=== PATIENT | female | born 1945 | race Caucasian/White ===

== ENCOUNTER 2020-12-28 15:04 | Emergency (ER) | payer MEDICARE, SELFPAY ==
[2020-03-07 11:09] VITALS: BMI 28.3
[2020-12-28 15:07] VITALS: BP 184/78; PULSE 85; RESP 16; TEMP 36.6; O2SAT 96; BMI 26.0
[2020-12-28] MEDS: Mixture 30 ML Bottle TOPICAL (15:56)
[2020-12-28] MEDS: Silver Nitrate (BKC) 1 EACH TOPICAL (15:57)
--- NOTE | 2020-12-28 16:21 | ED.VIS.GEN ---
History of Present Illness Chief Complaint: Nosebleed Informant: Patient Onset: Weeks - several Timing: Intermittent Quality: oozing blood Location: right naris Current Severity: gone Maximum Severity: Moderate Worsened by: nothing in particular -- bleeding occurs spontaneously Relieved by: holding pressure Associated Symptoms: none; no pain, weakness, lightheadedness, chest pain, or swallowing blood Narrative: Patient is on Eliquis for chronic atrial fibrillation as well as aspirin because of relatively recent cardiac stents. She continues to have nosebleeds, she had her nose packed at [place] a week or 2 ago, it was removed but she continues to have intermittent bleeding from the right side. She was calling to make an appointment with ENT today, but they deferred her to the emergency department since she was still bleeding to get another packing. - Past Medical History (1) Paroxysmal atrial fibrillation Status: Chronic (2) 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 tachycardia Status: Chronic (3) Atherosclerotic heart disease of [place] coronary artery without angina pectoris Status: Chronic (4) Essential hypertension Status: Chronic (5) GERD (gastroesophageal reflux disease) Status: Chronic (6) Malignant neoplasm of right breast Status: Chronic (7) Presence of stent in coronary artery Status: Chronic Comment: PCI/Stent to prox and mid LAD 05/10/09; PCI/Stent of RCA 05/23/09 (8) Pure hypercholesterolemia Status: Chronic (9) Type 2 diabetes mellitus Status: Chronic Past Medical History - Allergies and Home Meds Allergies/Adverse Reactions: Allergies amoxicillin [Amoxicillin] Allergy (Verified 12/28/20 15:09) Nausea/Vom/Diarrhea metformin Allergy (Verified 12/28/20 15:09) Nausea/Vom/Diarrhea shellfish derived Allergy (Verified 12/28/20 15:09) Nausea/Vom/Diarrhea alendronate sodium [From Fosamax] Adverse Reaction (Severe, Verified 12/28/20 15:09) myalgias Primary Care Physician: Shilo Pollard MD [STAFF PHYSICIAN] - (2-3 days - call for appt) Santo Taveras MD [Primary Care Provider] - Smoking Status: Never smoker Review of Systems General: Denies: Chills, Fever, Sweats Eyes: Denies: Visual changes - bilaterally, Diplopia ENT: Reports: Rhinorrhea - bleeding, see HPI. Denies: Sore throat Cardiovascular: Denies: Chest pain, Palpitations Respiratory: Denies: Dyspnea, Cough, Dyspnea on exertion Gastrointestinal: Denies: Abdominal pain, Nausea, Vomiting, Diarrhea, Melena, Hematochezia Genitourinary: Denies: Dysuria, Hematuria, Frequency Musculoskeletal: Denies: Neck pain, Extremity Pain Skin: Denies: Rash, Wounds Neurological: Denies: Headache, Weakness, Numbness Physical Exam Vital Signs/Narrative: Vital Signs Temp Pulse Resp BP Pulse Ox 12/28/20 15:07 98 F 85 16 184/78 H 96 Inital Vital Signs reviewed: Yes General: Well nourished, Well developed, No Acute Distress Head: Normocephalic, Atraumatic Eyes: Perrl, EOMI ENT: Moist mucous membranes, - - No active nasal bleeding. Small amount of clot anteriorly right naris, the left is clear. No septal hematoma or perforation. With disrupting the clot in the right septum, there is a pinpoint area of mild oozing of blood. Respiratory: No distress Skin: Normal color, No rash, No Trauma Neurological: Alert, Oriented x3, Cranial nerves II-XII grossly intact, Normal Strength, Normal Sensation, Normal Gait Psychological: Normal affect, Normal Mood Diagnostic/Tx/Re-eval - Medical Decision Making Patient does not have any systemic symptoms to suggest significant blood loss. She really wants to avoid nasal packing since she just had that, it was very uncomfortable, and she continued to bleed after it was removed anyway. Therefore I attempted to cauterize, although it was challenging because of the anticoagulation, eventually hemostasis was able to be obtained. She does understand the risk of rebleed and the fact that it is Thursday and she may need to return to the ER over the weekend if she does have rebleeding. Follow-up with ENT after the weekend. Procedures Procedure(s): Epistaxis care/chemical cautery -patient has pinpoint oozing of blood very anteriorly at the septum of the right naris. With point pressure on it the bleeding is easily controlled. She was initially intubated with [place] solution on a nasal pledget which she bled through and had a big clot. I had her blow her nose and expel all of these, then placing Brittany mix on a cotton swab and applying point pressure at the site of bleeding, alternating periodically with a very slight amount of silver nitrate cauterization. Eventually was able to obtain hemostasis. Patient was monitored for 5-10 minutes more, she had no further bleeding and was comfortable going home. ED Disposition - Plan for ED Patient: Disposition: Home or Assisted Living Diagnosis: Anterior epistaxis Instructions: ED Epistaxis (Adult) Referrals: Santo Taveras MD [Primary Care Provider] - Shilo Pollard MD [STAFF PHYSICIAN] - (2-3 days - call for appt)
[2020-12-28 17:20] VITALS: BP 170/82; PULSE 75
== END 2020-12-28 17:20 | disposition home or self-care (01) ==
PROVIDERS: Emergency Provider Emergency Medicine; PCP Family Medicine
DX: R04.0 Epistaxis (principal); I48.20 Chronic atrial fibrillation, unspecified; I25.10 Atherosclerotic heart disease of native coronary artery without angina pectoris; I10 Essential (primary) hypertension; K21.9 Gastro-esophageal reflux disease without esophagitis; E11.9 Type 2 diabetes mellitus without complications; Z95.5 Presence of coronary angioplasty implant and graft; Z79.02 Long term (current) use of antithrombotics/antiplatelets
CPT/HCPCS: 30901; 99282

== ENCOUNTER 2021-02-10 16:58 | Emergency (ER) | payer MEDICARE, SELFPAY ==
[2021-01-02 10:01] VITALS: BMI 25.2
[2021-02-10 16:59] VITALS: BP 149/90; PULSE 99; RESP 18; TEMP 36.8; O2SAT 97; BMI 26.2
--- NOTE | 2021-02-10 18:00 | ED.VIS.URI ---
History of Present Illness Chief Complaint: Cough Informant: Patient Onset: Today Context: Gradual Onset Timing: Intermittent Quality: [employer] Current Severity: Mild Maximum Severity: Mild Worsened by: - - nothing Relieved by: - - nothing Associated Symptoms: Nasal Congestion - clear rhinorrhea, Headache - yest, gone now, Vomiting - postussive once only, Nonproductive cough. Negative for: Sinus Pressure, Myalgias, Nausea, Diarrhea, Shortness of Breath, Chest Pain, Hemoptysis Narrative: Patient lives in an attached structure with daughter and son-in-law, frequently in close contact with them. Daughter was tested positive for Covid yesterday and has been symptomatic. Son has been symptomatic but has not been tested yet. She presents for evaluation suspicious of infection with Covid. She denies any significant fevers or chills, her temp did go up to 99 but she did not feel feverish, no dyspnea with exertion or at rest and has been feeling otherwise well except for the above symptoms. - Past Medical History (1) Atherosclerotic heart disease of [place] coronary artery without angina pectoris Status: Chronic (2) Essential hypertension Status: Chronic (3) GERD (gastroesophageal reflux disease) Status: Chronic (4) Paroxysmal atrial fibrillation Status: Chronic (5) Pure hypercholesterolemia Status: Chronic (6) Type 2 diabetes mellitus Status: Chronic Past Medical History - Allergies and Home Meds Allergies/Adverse Reactions: Allergies amoxicillin [Amoxicillin] Allergy (Verified 02/10/21 16:59) Nausea/Vom/Diarrhea metformin Allergy (Verified 02/10/21 16:59) Nausea/Vom/Diarrhea shellfish derived Allergy (Verified 02/10/21 16:59) Nausea/Vom/Diarrhea alendronate sodium [From Fosamax] Adverse Reaction (Severe, Verified 02/10/21 16:59) myalgias Primary Care Physician: Santo Taveras MD [Primary Care Provider] - Surgical History: - - Cardiac stent Lives: With Family Smoking Status: Never smoker Review of Systems General: Reports: Fever - Low-grade 99 only, Malaise. Denies: Chills, Subjective, Sweats Eyes: Denies: Visual changes - bilaterally, Diplopia ENT: Denies: Bilateral ear pain, Rhinorrhea, Sore throat Cardiovascular: Denies: Chest pain, Palpitations Respiratory: Reports: Cough. Denies: Dyspnea, Dyspnea on exertion Gastrointestinal: Reports: Vomiting - Once posttussive only. Denies: Abdominal pain, Nausea, Diarrhea, Melena, Hematochezia Genitourinary: Denies: Dysuria, Hematuria, Frequency Musculoskeletal: Denies: Myalgias, Back pain, Swelling, Extremity Pain Skin: Denies: Rash, Wounds Neurological: Reports: Headache. Denies: Weakness, Numbness Physical Exam Vital Signs/Narrative: Vital Signs Temp Pulse Resp BP Pulse Ox 02/10/21 16:59 98.3 F 99 18 149/90 H 97 Inital Vital Signs reviewed: Yes General: Well nourished, Well developed, - - Well-appearing no acute distress, conversive in full sentences Head: Normocephalic, Atraumatic Eyes: Perrl, EOMI Nose: Normal Inspection, No Rhinorrhea Mouth/Throat: Normal Inspection, No Posterior Erythema Neck: Supple, Nontender, No Lymphadenopathy, No Meningismus Cardiovascular: Regular rate, Regular rhythm, No murmurs. Negative for: Tachycardia Respiratory: No distress, CTA bilaterally, Chest nontender Abdomen: Soft, Nontender, Nondistended, Normal bowel sounds Back: Nontender, Normal Inspection Extremities: Nontender, No edema. Negative for: Calf Tenderness Skin: Normal color, No rash, No Trauma Neurological: Alert, Oriented x3, Cranial nerves II-XII grossly intact, Normal Strength, Normal Sensation, Normal Gait Psychological: Normal affect, Normal Mood Diagnostic/Tx/Re-eval - Medical Decision Making Rapid Covid returned positive, consistent with her history of having likely COVID-19. She does not have an oxygen requirement and is stable to be discharged. She does meet qualifications for monoclonal antibody infusion treatment, for which she was referred. She was given appropriate discharge instructions and reasons to return. ED Disposition - Plan for ED Patient: Disposition: Home or Assisted Living Diagnosis: Acute respiratory disease due to COVID-19 virus Instructions: Coronavirus Disease 2019 (COVID-19): Overview, ED - COVID Monoclonal AB Infusion ... Referrals: Santo Taveras MD [Primary Care Provider] - As Needed Additional Instructions: If you start getting short of breath return to the ER. You should get a call tomorrow concerning the referral to the monoclonal antibiotic treatment clinic.
[2021-02-10 18:54] VITALS: BP 136/79; PULSE 95; RESP 18; TEMP 37.1; O2SAT 97
== END 2021-02-10 18:55 | disposition home or self-care (01) ==
PROVIDERS: Emergency Provider Emergency Medicine; PCP Family Medicine
DX: U07.1 COVID-19 (principal); J06.9 Acute upper respiratory infection, unspecified; I25.10 Atherosclerotic heart disease of native coronary artery without angina pectoris; I10 Essential (primary) hypertension; K21.9 Gastro-esophageal reflux disease without esophagitis; E11.9 Type 2 diabetes mellitus without complications
CPT/HCPCS: 87426; 99282

== ENCOUNTER 2021-02-12 14:26 | Outpatient (CLI) | payer MEDICARE, SELFPAY ==
[2021-02-12] VITALS (7 sets, daily range): BP systolic 101–154; BP diastolic 46–79; PULSE 48–98; RESP 18; TEMP 37.1–37.8; O2SAT 93–98; BMI 26.0
[2021-02-12] MEDS: 0.9% Saline Lock 10 ML Syringe IV (15:00)
== END 2021-02-12 17:50 | disposition home or self-care (01) ==
LOC: ICUOUT 14:26 → ICU 14:27
PROVIDERS: PCP Family Medicine; Referring Provider Nurse Practitioner Acute Care; Visit Provider Nurse Practitioner Acute Care
DX: Z23 Encounter for immunization (principal); U07.1 COVID-19
CPT/HCPCS: J7050; M0243; Q0245; A4216; Q0240

== ENCOUNTER → 2021-09-12 06:59 | Outpatient (CLI) | payer MEDICARE, SELFPAY ==
--- NOTE | 2021-09-12 09:47 | STRESSREP ---
Stress Test Report Date: 09-12-2021 Procedure: Exercise tolerance test/imaging study Indications: CAD; PCI; paroxysmal atrial fibrillation Consent: Per the patient Procedure: The patient exercised on a [place]ade protocol for 2 minutes and 54 seconds not completing Stage I achieving a peak heart rate of 127 bpm (88% predicted maximal heart rate) with a peak blood pressure 150/84 mmHg and a peak MET capacity of 4 METs. The baseline ECG demonstrated sinus rhythm; low voltage QRS; septal my of indeterminate age cannot be excluded. The peak exercise ECG demonstrated somatic/motion artifact with no obvious ECG changes. There were occasional PVCs pretest, during exercise, and in recovery. The functional capacity was considered decreased. There was no complaint of chest discomfort during exercise or recovery. The examination was discontinued secondary to dyspnea. Impression: 1. Technically adequate (percent predicted maximal heart rate greater than 85%) exercise tolerance test 2. Peak exercise ECG with somatic/motion artifact with no obvious ECG changes 3. There were occasional PVCs pretest, during exercise, and in recovery 4. Nuclear images pending Myocardial perfusion imaging study: Technique: The patient was injected with 11.1 mCi of technetium 99m Cardiolite and subsequently rest SPECT Cardiolite nuclear imaging was obtained in the horizontal long, vertical long, and short axis views. The patient exercised on a Shade protocol for 2 minutes and 54 seconds not completing Stage I achieving a peak heart rate of 127 bpm (88% predicted maximal heart rate) with a peak blood pressure 150/84 mmHg and a peak MET capacity of 4 METs. The patient was injected with 32.3 mCi of technetium 99m Cardiolite and subsequently stress SPECT Cardiolite nuclear imaging was obtained in the horizontal long, vertical long, and short axis views. A gated Cardiolite study at peak stress was obtained. Interpretation: Rest and stress SPECT Cardiolite nuclear imaging status post realignment, normalization, and attenuation correction, demonstrates the appearance of body motion during image acquisition and the appearance of a small area of diminished tracer uptake in the distal anteroseptal segments at rest which appears to improve/normalize following stress. There are similar type findings on the resting and stress polar map images. There is end systolic thickening and brightening. The gated Cardiolite study demonstrates myocardial thickening and inward wall motion. The reported LVEF is 82%. Impression: 1. Rest and stress SPECT Cardiolite nuclear imaging demonstrate the appearance of body motion during image acquisition and the appearance of a small area of diminished tracer uptake in the distal anteroseptal segments at rest which appears to improve/normalize following stress appearing compatible with shifting soft tissue attenuation/artifact with no myocardial perfusion changes considered diagnostic for associated stress-induced myocardial ischemia. 2. The gated Cardiolite study reports an LVEF of 82%. This note was generated with [employer] software. It may contain incorrect words, spelling, and punctuation that were not noted in checking the note before signing.
== END ==
PROVIDERS: PCP Family Medicine; Referring Provider Nurse Practitioner Gerontology; Visit Provider Nurse Practitioner Gerontology
DX: I25.10 Atherosclerotic heart disease of native coronary artery without angina pectoris (principal); Z95.5 Presence of coronary angioplasty implant and graft
CPT/HCPCS: 78452; 93017; A9500; A4216

== ENCOUNTER 2023-12-11 07:45 | Inpatient (IN) | payer MEDICARE, SELFPAY ==
[2023-12-11 07:46] VITALS: BP 157/144; PULSE 90; RESP 16; TEMP 36.7; O2SAT 99
--- NOTE | 2023-12-11 08:21 | CT_ITS ---
STUDY: CT ABDOMEN AND PELVIS WITH CONTRAST REASON FOR EXAM: Female, 78 years old. Fall, RUQ pain, hematemesis RADIATION DOSAGE (If Supplied By Facility): CTDIvol = ( 11.51 ) mGy, DLP = ( 634.30 ) mGycm TECHNIQUE: IV 100mL Isovue-300 was administered. Transaxial images were obtained from the dome of the diaphragm to the symphysis pubis. Multiplanar coronal and sagittal images were reformatted. Individualized Dose Optimization Techniques Were Used For This CT. COMPARISON: No relevant prior comparison study available FINDINGS: The visualized lung bases are unremarkable. The visualized portions of the heart are within normal limits. Normal liver. Normal gallbladder and extrahepatic biliary system. There is a benign calcified granuloma of the spleen. Normal pancreas. Normal bilateral adrenal glands. Nonspecific fluid-filled slightly prominent small bowel loops. No evidence of small bowel obstruction. Fecal retention. Focal stranding in the right lower quadrant extending from the cecum (axial images 73-81 and coronal images 71-67). Thickened appendix is doubtful. The appendix otherwise is not visualized. Surgical anastomosis sutures in the region of the rectosigmoid colon. There is atherosclerotic calcification of the abdominal aorta, without a demonstrated aneurysm. No retroperitoneal adenopathy. 1.6 cm it is effecting simple cyst in the lateral aspect of right kidney for which no further follow-up exam is needed. No evidence of hydronephrosis. Normal urinary bladder. There is absence of the uterus consistent with a prior hysterectomy. Normal abdominal wall. No demonstrated acute osseous changes. CT/Abdomen/Pelvis W IV Cont ONLY IMPRESSION: 1. Nonspecific fluid-filled small bowel loops without evidence of small bowel obstruction. Enteritis is possible. 2. Focal stranding right lower quadrant extending from the cecum. Thickened appendix is doubtful. Follow-up exam is recommended if indicated. Electronically Signed: Bryan Belle MD at 10:05 EST ,
--- NOTE | 2023-12-11 08:23 | EDS_ITS ---
HPI HPI - GI History of Present Illness Chief Complaint: GI Bleed Informant: patient and family Narrative Narrative: Patient had an accidental fall 2 days ago. She was holding the leash and the dog pulled her down. She fell prone onto the floor inside her home. She has been having some pain in her right upper abdomen and ribs that started the day after. Yesterday she started vomiting, and overnight it turned red. Initially the emesis was dark, and the last 6 or 7 emesis was dark red blood. Her last bowel movement was yesterday and it was normal without diarrhea, melena, blood. She denies any chest pain or shortness of breath, she states her rib hurts in the right upper quadrant area, she does not have significant pain if she takes a deep breath. She denies any head injury although she has some bruising on her head that she states was from a fall 1 or 2 weeks ago, she denies any back pain, extremity injury. She has a history of an MA with stents in her heart as well as A-fib for which she is on Eliquis. Last dose was a little more than 24 hours ago has not taken her morning medications due to vomiting this morning. [facility] Medical History Atherosclerotic heart disease of resighini coronary artery without angina pectoris Essential hypertension GERD (gastroesophageal reflux disease) Liver mass Malignant neoplasm of right breast Old myocardial infarction Paroxysmal atrial fibrillation 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 tachycardia Presence of stent in coronary artery (~05/23/09) Pure hypercholesterolemia Type 2 diabetes mellitus Home Medications apixaban 5 mg tablet (Eliquis) 5 mg PO BID a.fib 09/06/19 [History Last Taken 02/12/21] cyanocobalamin (vitamin B-12) 1,000 mcg tablet 1,000 mcg PO DAILY 09/06/19 [History Last Taken 02/12/21] pravastatin 80 mg tablet 80 mg PO QHS 09/06/19 [History Last Taken 02/11/21] pyridoxine (vitamin B6) 100 mg tablet 100 mg PO DAILY 09/06/19 [History Last Taken 02/12/21] nitroglycerin 0.4 mg sublingual tablet 0.4 mg sublingual Q5-15M PRN chest pain #90 tabs 09/08/19 [Rx Last Taken Unknown] insulin glargine U-300 conc 300 unit/mL (1.5 mL) subcutaneous pen 20 unit subcut QHS 08/14/21 [History Last Taken Unknown] dulaglutide 4.5 mg/0.5 mL subcutaneous pen injector (Trulicity) 4.5 mg subcut MO 08/06/23 [History Last Taken 12/07/23] verapamil 300 mg capsule 24hr pellet CT,ext.release 300 mg PO QHS 08/06/23 [History Last Taken Unknown] brimonidine 0.2 % eye drops 1 drp ophthalmic (eye) BID 12/11/23 [History Last Taken Unknown] calcium carbonate 600 mg-vitamin D3 5 mcg (200 unit) tablet (Calcium 600 + D(3)) 1 tab PO DAILY 12/11/23 [History Last Taken Unknown] lisinopril 40 mg tablet 20 mg PO DAILY HIG BLOOD PRESSURE 12/11/23 [History Last Taken Unknown] Allergy/AdvReac Type Severity Reaction Status Date / Time alendronate sodium AdvReac Severe myalgias Verified 12/11/23 07:49 [From Fosamax] amoxicillin [Amoxicillin] AdvReac Nausea/Vom/ Verified 12/11/23 07:49 Diarrhea metformin AdvReac Nausea/Vom/ Verified 12/11/23 07:49 Diarrhea shellfish derived AdvReac Nausea/Vom/ Verified 12/11/23 07:49 Diarrhea Family History Mother Hypertension Diabetes CVA (cerebral vascular accident) CAD (coronary artery disease) Father History of DVT (deep vein thrombosis) Surgical History History of eyelid surgery (05/28/23) History of total abdominal hysterectomy Presence of coronary angioplasty implant and graft (~05/23/09) S/P lumpectomy, right breast Social History Smoking Status: Never smoker alcohol intake: never substance use type: does not use caffeine: Yes Type: coffee Number of servings: 2 ROS ROS ED Constitutional Constitutional ED: Reports fatigue and weakness; Denies chills or fever(s) Eyes Eyes: Denies change in vision or diplopia ENT ENT ED: Denies rhinorrhea or sore throat Cardiovascular Cardiovascular: Denies chest pain or palpitations Respiratory/Chest Respiratory/Chest: Denies cough or dyspnea Gastrointestinal Gastrointestinal: Reports abdominal pain, hematemesis, nausea and vomiting; Denies diarrhea, melena or rectal bleeding Genitourinary Genitourinary ED: Denies dysuria or hematuria Musculoskeletal Musculoskeletal: Denies back pain or neck pain Integumentary Denies abscess or rash Neurologic Neurologic: Denies headache(s), paresthesias or weakness Psychiatric Psychiatric: Denies anxiety or suicidal thoughts EXAM Physical Exam Const Vital Signs: 12/11/23 07:46 Temperature 98.1 F Temperature Source Temporal Pulse Rate 90 Respiratory Rate 16 Blood Pressure 157/144 H Blood Pressure Mean 148 Pulse Ox 99 Oxygen Delivery Method Room Air Positive well nourished and well developed General Appearance ED: well developed and NAD HEENT Reports moist mucous membranes HEENT Narrative: Old-appearing yellowing ecchymosis left forehead no tenderness or hematoma. I see no signs of acute HEENT trauma. normocephalic and atraumatic Eyes PERRL and EOMs intact bilaterally Neck full ROM and supple Chest Wall Chest Narrative: Tender right lower rib cage and chest wall diffusely all the way up to around the fourth or fifth rib just to the lateral aspect of the right breast. No crepitance. No flail. No other areas of rib tenderness. No deformity. No palpable step-offs. Resp normal respiratory effort and clear to auscultation bilaterally Cardio no murmurs Rhythm: abnormal rhythm irregularly irregular GI non-distended GI Narrative: Tender in the left lower quadrant in the right upper quadrant epigastrium. No rebound tenderness. Auscultation: normoactive bowel sounds Palpation: soft Back/Spine no CVA tenderness General Back: other FROM Extremity normal to inspection and full ROM General Extremety ED: Negative for edema, pulses abnormal or tenderness General Extremity: Negative for edema or pulses abnormal Neuro oriented x3, CN's II-XII intact bilaterally and no sensory deficits noted Sensorium / Orientation: awake and alert Motor Exam: strength 5/5 throughout Psych mental status grossly normal and thought process normal Skin no rashes or lesions noted and no wounds MDM MDM MDM Narrative Medical decision making narrative: Out of concern for upper GI bleeding in a delayed fashion after what sounds like a minor blunt abdominal injury, I obtained a CT as well as blood counts, chemistries, type and screen. I reviewed all of those results including the result of the CT and the images which I agree with, it does not show any obvious sequela of injury or trauma. It shows some nonspecific ascending colonic stranding in addition to findings consistent with enteritis but no free air or signs of a small bowel injury. Unknown if this patient is to go to a trauma center, but there are no obvious signs of intestinal injury on the CT so I do not think she needs a surgical consult emergently, so I initially discussed with GI Dr. Ferrer. He states he thinks it is most appropriate to keep the patient here on a Protonix drip which we already started, and he will consult. Discussed with hospitalist. At this time she is clinically and hemodynamically stable with no vomiting after Zofran and IV fluids, she does not need emergent blood transfusion with a hemoglobin around 10. Lab Data Attestation: I reviewed the patient's lab results. Labs: Laboratory Results - last 24 hr 12/11/23 12/11/23 08:10 10:40 WBC 13.6 H RBC 3.63 L Hgb 10.8 L Hct 33.1 L MCV 91.2 MCH 29.8 MCHC 32.6 RDW Std Deviation 46.0 H RDW Coeff of Emperatriz 13.6 Plt Count 244 MPV 10.3 Immature Gran % (Auto) 0.400 Neut % (Auto) 86.0 H Lymph % (Auto) 7.0 L Chester % (Auto) 6.2 Eos % (Auto) 0.1 Baso % (Auto) 0.3 Absolute Neuts (auto) 11.7 H Absolute Lymphs (auto) 0.95 Nucleated RBC % 0 Sodium 140 Potassium 4.2 Chloride 103 Carbon Dioxide 27.0 Anion Gap 10 BUN 37 H Creatinine 0.98 Est GFR (MDRD) Af Amer 70 Est GFR (MDRD) Non-Af 58 L BUN/Creatinine Ratio 37.8 H Glucose 317 H Calcium 9.1 Total Bilirubin 0.40 AST 16 ALT 24 Alkaline Phosphatase 96 Total Protein 6.5 Albumin 3.1 L Globulin 3.4 Albumin/Globulin Ratio 0.9 Urine Color Yellow Urine Clarity Sl. Cloudy Urine pH 5.0 Ur Specific Garrett 1.015 Urine Protein 15 H Urine Glucose (UA) 1000 H Urine Ketones 150 A* Urine Occult Blood Negative Urine Nitrite Negative Urine Bilirubin 1 H Urine Urobilinogen Normal Ur Leukocyte Esterase 25 H Urine RBC 0-5 SEEN Urine WBC 0-5 SEEN Ur Squamous Epith Cells 0-5 SEEN Urine Bacteria RARE Urine Mucus 1+ Blood Type A POSITIVE Antibody Screen NEGATIVE Radiography Diagnostic Testing: Clinical Impression(s) from Imaging Studies Abdomen/Pelvis CT 12/11/23 08:21 IMPRESSION: 1. Nonspecific fluid-filled small bowel loops without evidence of small bowel obstruction. Enteritis is possible. 2. Focal stranding right lower quadrant extending from the cecum. Thickened appendix is doubtful. Follow-up exam is recommended if indicated. Electronically Signed: Bryan Belle MD at 10:05 EST , Chest X-Ray 12/11/23 09:15 IMPRESSION: Small right midlung nodules. If no previous examination is available for comparison, CT scan of the chest is recommended. Otherwise no active pulmonary disease. Electronically Signed: Bryan Belle MD at 10:07 EST , Rhythm Strip Rhythm Strip: sinus arrhythmia Rate: 95 Ectopy: None EKG Initial EKG: Attestation: I personally reviewed and interpreted this EKG as follows: Interpretation: No Acute Injury Pattern and Sinus Arrythmia Management Discussion w/another healthcare provider: Hospitalist and [employer] (GI friend) Discharge Plan Dx/Rx/DC Orders Clinical Impression: Blunt traumatic injury of [id number] region, Contusion of rib on right side, Paroxysmal atrial fibrillation, Acute blood loss anemia, UGIB (upper gastrointestinal bleed), On apixaban therapy Disposition Disposition: Acute Care Hospital [facility]
[2023-12-11 08:32] LABS: Absolute Lymphocyte Count 0.95 X10^3/uL (0.83-4.51); Absolute Neutrophil Count 11.7 X10^3/uL (2.0-7.7); Basophil# 0.04 X10^3/uL; Basophil% 0.3 % (0-1); Eosinophil# 0.01 X10^3/uL; Eosinophils% 0.1 % (0-5); Hematocrit 33.1 % (37-47); Hemoglobin 10.8 g/dL (12.0-15.0); Lymphocyte # 0.95 X10^3/ul (0.83-4.51); Mean Corp Hgb Conc 32.6 g/dL (32-36); Mean Corpuscular Hgb 29.8 pg (27.0-32.0); Mean Corpuscular Volume 91.2 fL (81-99); Mean Platelet Vol. 10.3 fl (6.2-12.0); Monocyte# 0.84 X10^3/uL; Monocyte% 6.2 % (0-10); NRBC Flagged by Analyzer 0 % (0-5); Platelet Count 244 K/mm3 (150-450); RBC Distribution Width CV 13.6 % (11.6-14.6); Red Blood Count 3.63 M/mm3 (4.2-5.4); White Blood Count 13.6 K/mm3 (4.4-11.0)
[2023-12-11] MEDS: Ondansetron 4 MG/2 ML Vial IV (08:32)
[2023-12-11] MEDS: 0.9% Normal Saline (1000mL) 1,000 ML 1000 ML IV (08:32)
[2023-12-11 08:49] LABS: ALB/GLOB Ratio 0.9 RATIO (0.9-2.4); AST(SGOT) 16 U/L (15-37); Alanine Aminotransfer ALT/SGPT 24 U/L (13-56); Albumin, Serum 3.1 g/dL (3.2-5.0); Alkaline Phosphatase 96 U/L (45-117); Anion Gap 10 (5-15); BUN 37 mg/dL (7-18); BUN/Creat Ratio 37.8 RATIO (10-20); Calcium,Total 9.1 mg/dL (8.5-10.1); Chloride 103 mmol/L (98-107); Creatinine, Serum 0.98 mg/dL (0.55-1.02); EST Glomerular Filtration Rate 58 mL/min (>60); Est Glom Filt Rate - Afr Amer 70 mL/min (>60); Globulin 3.4 g/dL (2.2-4.2); Glucose 317 mg/dL (74-106); Potassium 4.2 mmol/L (3.5-5.1); Protein, Total 6.5 g/dL (6.4-8.2); Sodium Level 140 mmol/L (136-145)
--- OUTSIDE RECORDS SUMMARY | 2023-12-11 08:49 | XMS RPT_ITS | CCD ---
Author Name Unknown Address [address] [place] [address] Organization [facility] Care Team Providers Care Retail Helper Name Role Phone JOLIE MARCELONETH E Unavailable Unavailable DAVIAN, BHARATH E Unavailable Unavailable TAY ALLISON Unavailable Unavail able DAVIAN, BHARATH Unavailable Unavailable DAVIAN, BHARATH Unavailable Unavailable Bullard, Santo Unavailable Unavailable DAVIAN, BHARATH Unavailable Unavailable DAVIAN, BHARATH Unavailable Unavailable Bullard, Santo Unavailable Unavailable Kate, Santo Unavailable Unavailable [facility] Unavailable Unavailable JOSE MEYER Admitting Unavailable JOSE MEYER Primary Care Unavailable JOSE MEYER Attending Unavailable KATE, SANTO Consulting Unavailable KATE, SANTO Referring Unavailable PROVIDER, UNKNOWN Consulting Unavailable KATE, SANTO Consulting Unavailable HORACIO ROSENTHAL Admitting Unavailable HORACIO ROSENTHAL Primary Care Unavailable HORACIO ROSENTHAL Attending Unavailable PROVIDER, UNKNOWN Consulting Unavailable Santo Taveras MD Primary Care Provider [facility], Jenny [facility]available [facility] Unavailable Santo Taveras MD Primary Care Provider [facility], Jenny [facility], [facility] Unavailable Santo Taveras MD Primary Care Provider [facility], Jenny Un[facility], [facility]eti Unavailable Santo Taveras MD Primary Care Provider [facility], Jenny [facility], [facility] Unavailable [facility], Keti Unavailable SANTO TAVERAS Primary Care Unavailable SANTO TAVERAS Referring Unavailable SANTO TAVERAS Primary Care Unavailable SANTO TAVERAS Attending Unavailable SANTO TAVERAS Primary Care Unavailable SANTO TAVERAS Referring Unavailable KATE, SANTO Evans Primary Care Unavailable SANTO TAVERAS Attending Unavailable Talya RODRIGUEZ Attending Unavailable SANTO TAVERAS Primary Care Unavailable SANTO TAVERAS Primary Care Unavailable Talya RODRIGUEZ Referring Unavailable SANTO TAVERAS Primary Care Unavailable Talya RODRIGUEZ Attending Unavailable SANTO TAVERAS Primary Care Unavailable TRANG MCKEON Referring Unavailable KATE, SANTO Evans Primary Care Unavailable KATE, SANTO Evans Primary Care Unavailable KATE, SANTO Evans Referring Unavailable Allergies Allergy Classification Reported Allergen(s) Allergy Type Date of Onset Reaction(s) Facility (20 sources) alendronate; Translations: [ALENDRONATE SODIUM] Drug Allergy 8 Other: See Comments [facility] (20 sources) amoxicillin; Translations: [AMOXICILLIN] Drug Allergy 7 Diarrhea [facility] (20 sources) metFORMIN; Translations: [METFORMIN] Drug Allergy 7 Diarrhea [facility] (20 sources) Shellfish; Translations: [SHELLFISH] Propensity to adverse reactions to food (disorder) 8 Diarrhea, Vomiting [facility] Medications Current Medications Medication Drug Class(es) Dates Sig (Normalized) Sig (Original) docusate sodium 100 mg oral capsule (1 source) Start: 01-16-2022 End: 02-15-2022 take 1 capsule by mouth twice daily docusate sodium (COLACE) 100 mg capsule Indications: Chronic constipation Take 1 capsule by mouth twice daily. 60 capsule 0 01/16/2022 02/15/2022 Active Completed/Discontinued Medications Medication Drug Class(es) Dates Sig (Normalized) Sig (Original) apixaban 5 mg oral tablet (20 sources) Factor Xa Inhibitor Start: 11-18-2021 End: 01-16-2023 take 1 tablet by mouth twice daily apixaban (ELIQUIS) 5 mg tab(s) Take 1 tablet by mouth twice daily. 180 tablet 3 01/16/2023 Active Problems Active Problems Problem Classification Problem Date Documented Date Episodic/Chronic Cancer of breast (20 sources) Malignant tumor of breast ; Translations: [Malignant neoplasm of unspecified site of unspecified female breast] Onset: 02-18-2011 02-18-2011 Chronic Cardiac dysrhythmias (20 sources) Paroxysmal atrial fibrillation; Translations: [Other specified cardiac arrhythmias] Onset: 06-12-2009 06-12-2009 Chronic Conditions associated with dizziness or vertigo (2 sources) Benign paroxysmal positional vertigo; Translations: [Benign paroxysmal vertigo, unspecified ear] Episodic Coronary atherosclerosis and other heart disease (20 sources) Atherosclerotic heart disease of [place] coronary artery without angina pectoris; Translations: [Coronary atherosclerosis] Onset: 06-12-2009 10-18-2020 Chronic Diabetes mellitus without complication (20 sources) Type 2 diabetes mellitus without complication; Translations: [Type 2 diabetes mellitus without complications] Onset: 12-16-2005 10-28-2021 Chronic Disorders of lipid metabolism (20 sources) Hyperlipidemia; Translations: [Hyperlipidemia, unspecified] Onset: 12-16-2005 09-12-2015 Chronic Diverticulosis and diverticulitis (13 sources) Diverticulitis; Translations: [Diverticulitis of intestine, part unspecified, without perforation or abscess without bleeding] Onset: 10-24-2011 10-24-2011 Chronic Esophageal disorders (20 sources) Gastroesophageal reflux disease; Translations: [Gastro-esophageal reflux disease without esophagitis] Onset: 02-24-2007 02-24-2007 Chronic Essential hypertension (20 sources) Essential hypertension; Translations: [Essential (primary) hypertension] Onset: 12-16-2005 Chronic Heart valve disorders (20 sources) Non-rheumatic mitral regurgitation ; Translations: [Nonrheumatic mitral (valve) insufficiency] Onset: 06-17-2021 06-17-2021 Chronic Osteoarthritis (20 sources) Osteoarthritis of right knee joint; Translations: [Unilateral primary osteoarthritis, right knee] 10-02-2011 Chronic Other and unspecified benign neoplasm (20 sources) History of polyp of colon; Translations: [Personal history of colonic polyps] Episodic Other circulatory disease (1 source) Low blood pressure; Translations: [Other hypotension] Episodic Other nutritional; endocrine; and metabolic disorders (14 sources) Obesity; Translations: [Obesity, unspecified] Onset: 12-16-2005 12-16-2005 Chronic Other nutritional; endocrine; and metabolic disorders (3 sources) Hypercalcemia; Translations: [Hypercalcemia] Chronic Residual codes; unclassified (1 source) Postmenopausal state; Translations: [Asymptomatic menopausal state] Episodic Unclassified (4 sources) Encounter for screening for malignant neoplasm of cervix; Translations: [Patient encounter status] Onset: 06-29-2018 Episodic Unclassified (1 source) Unknown / UNK(Unknown) Onset: 02-12-2018 Unclassified (1 source) Paroxysmal SVT (supraventricular tachycardia); Translations: [Paroxysmal SVT (supraventricular tachycardia)] Onset: 01-11-2020 Unclassified (1 source) Other persistent atrial fibrillation; Translations: [Persistent atrial fibrillation (HCC)] Onset: 01-10-2017 Past or Other Problems Problem Classification Problem Date Documented Da te Episodic/Chronic Immunizations and screening for infectious disease (20 sources) Finding related to response to skin test; Translations: [Nonspecific reaction to tuberculin skin test without active tuberculosis] Onset: 12-16-2005 12-16-2005 Episodic Other aftercare (20 sources) Long-term current use of anticoagulant; Translations: [group home (current) use of 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] Onset: 01-10-2017 01-10-2017 Episodic Other aftercare (1 source) group home (current) use of 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; Translations: [group home current use of anticoagulant] Onset: 01-10-2017 Episodic Other aftercare (1 source) Other rodent exterminator (current) drug therapy; Translations: [Current use of proton pump inhibitor] Onset: 01-01-2023 Episodic Other and unspecified benign neoplasm (14 sources) Benign neoplasm of colon; Translations: [Benign neoplasm of colon, unspecified] Onset: 10-17-2011 10-17-2011 Episodic Other bone disease and musculoskeletal deformities (20 sources) Osteopenia; Translations: [Other specified disorders of bone density and structure, unspecified site] Onset: 05-21-2010 05-21-2010 Episodic Other bone disease and musculoskeletal deformities (1 source) Other specified disorders of bone density and structure, unspecified site; Translations: [Osteopenia, unspecified location] Onset: 05-21-2010 Episodic Other gastrointestinal disorders (14 sources) Constipation; Translations: [Constipation, unspecified] Onset: 10-14-2011 10-14-2011 Episodic Results Test Name Value Interpretation Reference Range Facil ity Vital Signs Date Time Vital Sign Value Performing Clinician Varun parmar 05-07-2023 10:43-0400 Body height 162.6 cm Santo Taveras MD Work Phone: [facility] 05-07-2023 10:43-0400 Body weight 65.41 kg Santo Taveras MD Work Phone: [facility] 05-07-2023 10:43-0400 Diastolic blood pressure 52 mm[Hg] Santo Taveras MD Work Phone: [facility] 05-07-2023 10:43-0400 Heart rate 65 /min Santo Taveras MD Work Phone: [facility] 05-07-2023 10:43-0400 SaO2% (BldA) [Mass fraction] 97 % Santo Taveras MD Work Phone: [facility] 05-07-2023 10:43-0400 Systolic blood pressure 106 mm[Hg] Santo Taveras MD Work Phone: [facility] 01-29-2023 10:19-0400 Body weight 64.41 kg Santo Taveras MD Work Phone: [facility] 01-29-2023 10:19-0400 Diastolic blood pressure 62 mm[Hg] Santo Taveras MD Work Phone: [facility] 01-29-2023 10:19-0400 Heart rate 70 /min Santo Taveras MD Work Phone: [facility] 01-29-2023 10:19-0400 SaO2% (BldA) [Mass fraction] 97 % Santo Taveras MD Work Phone: [facility] 01-29-2023 10:19-0400 Systolic blood pressure 112 mm[Hg] Santo Taveras MD Work Phone: [facility] 01-01-2023 10:18-0500 Body temperature 97.2 [degF] NA Rodriguez PA-C Work Phone: [facility] 01-01-2023 10:18-0500 Body weight 63.5 kg NA Rodriguez PA-C Work Phone: [facility] 01-01-2023 10:18-0500 Diastolic blood pressure 82 mm[Hg] NA Rodriguez PA-C Work Phone: [facility] 01-01-2023 10:18-0500 Heart rate 76 /min NA Rodriguez PA-C Work Phone: [facility] 01-01-2023 10:18-0500 Respiratory rate 16 /min NA Rodriguez PA-C Work Phone: [facility] 01-01-2023 10:18-0500 SaO2% (BldA) [Mass fraction] 96 % NA Rodriguez PA-C Work Phone: [facility] 01-01-2023 10:18-0500 Systolic blood pressure 166 mm[Hg] NA Rodriguez PA-C Work Phone: [facility] 11-27-2022 09:01-0500 Diastolic blood pressure 71 mm[Hg] Mi Nurse Work Phone: [facility] 11-27-2022 09:01-0500 Heart rate 71 /min Mi Nurse Work Phone: [facility] 11-27-2022 09:01-0500 Systolic blood pressure 164 mm[Hg] Mi Nurse Work Phone: [facility] 10-02-2022 09:14-0500 Body weight 62.14 kg Santo Taveras MD Work Phone: [facility] 10-02-2022 09:14-0500 Diastolic blood pressure 72 mm[Hg] Santo Taveras MD Work Phone: [facility] 10-02-2022 09:14-0500 Heart rate 74 /min Santo Taveras MD Work Phone: [facility] 10-02-2022 09:14-0500 SaO2% (BldA) [Mass fraction] 99 % Santo Taveras MD Work Phone: [facility] 10-02-2022 09:14-0500 Systolic blood pressure 126 mm[Hg] Santo Taveras MD Work Phone: [facility] 07-17-2022 09:43-0400 Diastolic blood pressure 68 mm[Hg] Mi Nurse Work Phone: [facility] 07-17-2022 09:43-0400 Heart rate 74 /min Mi Nurse Work Phone: [facility] 07-17-2022 09:43-0400 Systolic blood pressure 113 mm[Hg] Mi Nurse Work Phone: [facility] 06-27-2022 11:50-0400 SaO2% (BldA) [Mass fraction] 99 % NA Rodriguez PA-C Work Phone: [facility] 06-27-2022 11:32-0400 Diastolic blood pressure 40 mm[Hg] NA Rodriguez PA-C Work Phone: [facility] 06-27-2022 11:32-0400 Systolic blood pressure 78 mm[Hg] NA Rodriguez PA-C Work Phone: [facility] 06-27-2022 11:07-0400 Body weight 60.33 kg NA Rodriguez PA-C Work Phone: [facility] 06-27-2022 11:07-0400 Heart rate 78 /min NA Rodriguez PA-C Work Phone: [facility] 06-27-2022 11:07-0400 Respiratory rate 14 /min NA Rodriguez PA-C Work Phone: [facility] Encounters Encounter Date Encounter Type Care Provider Facility Start: 11-12-2023 End: 11-13-2023 ambulatory Talya RODRIGUEZ Facility:[facility] Start: 11-12-2023 End: 11-13-2023 ambulatory Talya RODRIGUEZ Facility:[facility] Start: 11-03-2023 End: 11-04-2023 ambulatory [facility] Facility:[facility] Start: 09-30-2023 Refill Santo Taveras MD Work Phone: [facility] [place] Procedures Date Procedure Procedure Detail Performing Clinician Start: 07-02-2023 Screening mammograph y bi 2-view breast inc cad Santo Taveras MD Work Phone: Start: 06-27-2022 Adult depression scr eening assessment NA Rodriguez PA-C Work Phone: Start: 05-30-2022 Screening mammograph y bi 2-view breast inc cad Santo Taveras MD Work Phone: Start: 05-07-2022 Dxa bone density tiago dy 1/> sites axial skel Santo Taveras MD Work Phone: Start: 09-17-2021 Colonoscopy Santo Dukes MD Work Phone: Start: 09-13-2018 Adult depression scr eening assessment Santo Taveras MD Work Phone: Plan of Treatment Date Care Activity Detail Author Start: 09-17-2024 Colonoscopy COLONOSCOPY [facility] Start: 05-14-2024 Hepatitis C antibody , confirmatory test DILATED RETINAL EXAM [facility] Start: 05-07-2024 3 comp foot exam completed DIABETIC FOOT EXAM [facility] Start: 05-07-2024 ANNUAL PCP TEAM FREIGHT SHIPPING AGENT ABRAM DISEASE VISIT ANNUAL PCP TEAM CHRONIC DISEASE VISIT [facility] Start: 05-07-2024 BP CONTROLLED (<130/80) BP CONTROLLE D (<130/80) [facility] Start: 01-30-2024 ANNUAL PCP TEAM FREIGHT SHIPPING AGENT ABRAM DISEASE VISIT ANNUAL PCP TEAM CHRONIC DISEASE VISIT [facility] Start: 01-30-2024 BP CONTROLLED (<130/80) BP CONTROLLE D (<130/80) [facility] Start: 01-30-2024 COVID-19 VACCINE (#1) COVID-19 VACCI NE (#1) [facility] Immunizations Immunization Date Immunization Notes Care Provider Zehra staton 06-24-2019 influenza virus vacc ine, unspecified formulation Herlinda Dickinson LEAD NEURODIAGNOSTIC TECHNOLOGIST [facility] 09-18-2015 influenza, high dose seasonal, preservative-free Santo Taveras MD Work Phone: [facility] 09-18-2015 pneumococcal conjuga te vaccine, 13 valent Santo Taveras MD Work Phone: [facility] 07-28-2014 influenza, high dose seasonal, preservative-free Santo Taveras MD Work Phone: [facility] 10-14-2013 influenza virus vacc ine, unspecified formulation Santo Taveras MD Work Phone: [facility] 10-13-2012 influenza virus vacc ine, unspecified formulation Santo Taveras MD Work Phone: [facility] 06-13-2011 zoster vaccine, live Santo Taveras MD Work Phone: [facility] Work Phone: 06-12-2009 pneumococcal polysaccharide vaccine, 23 valent Santo Taveras MD Work Phone: [facility] Work Phone: 04-13-2007 tetanus toxoid, redu fatemeh diphtheria toxoid, and acellular pertussis vaccine, adsorbed Santo Taveras MD Work Phone: [facility] Work Phone: Payers Date Payer Category Payer Medicare [id number] 2018 Unknown ANTHEM BLUE CROS S AND BLUE SHIELD ANTHEM MEDIBLUE O [id number] 2018-Present [id number] [place], [place] [address]O [id number] 2018 Unknown ANTHEM BL[employer] CROS S AND BLUE SHIELD ANTHEM MEDIBLUE O [id number] 2018-Present [phone] [id number] [place], [place] [id number] O [id number] 2018 Unknown [id number] 1945 Unknown [id number] 1945 Unknown [id number] Unknown [id number] Social History Date Type Detail Facility Start: 11-28-2014 End: 07-17-2022 Tobacco smoking status NHIS Never smoked tobacco [facility] Work Phone: Start: 12-18-2021 End: 05-07-2023 Alcohol intake Current non-drinker of alcohol (finding) [facility] Start: 1945 Sex Assigned At Not on file [facility] Start: 03-14-2022 End: 10-02-2022 Exposure to SARS-CoV-2 (event) Not sure [facility] Start: 11-28-2014 End: 07-17-2022 Tobacco use and exposure Smokeless tobacco non-user [facility] Start: 01-29-2023 End: 05-07-2023 History of Social function [facility] Work Phone: Start: 01-29-2023 End: 05-07-2023 Tobacco use panel [facility] Work Phone: Adult Depression Screening Assessment 0 [facility] Work Phone: Medical Equipment Procedure Code Equipment Code Equipment Origin al Text Equipment Identifier Dates Use as directed once daily as directed DM: yes Insulin: yes DX: [id number] Start: 10-19-2019 Clinical Notes 03-26-2018 to 11-12-2023 Telephone Encounter - [place] Lazara Mosley - 09/30/2023 8:36 AM ESTTelephone Encounter - Herlinda Dickinson MSW - 07/22/2023 11:10 AM Mary Garcia [employer] - 07/02/2023 8:30 AM EDT Note Date & Type Note Facility 11-12-2023 Note HNO ID: [id number] Author: Talya RODRIGUEZ PA-C Service: ? Author Type: Physician Clinical Laboratory Manager Type: Progress Notes Filed: 11/12/2023 12:27 Note Text: 78 year old female with c/o here for 6 month follow up Doing well aside from stress Lives with daughter who is . 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: [place] Cardiovascular interval hx: none 06/27/2022 EKG: Sinus rhythm with first-degree AV block with premature SVCs with occasional PVC, low voltage QRS consider pulmonary disease, pericardial effusion, or normal variant, possible septal infarct age-indeterminate 09/12/2021 exercise tolerance stress test [facility]: Shade protocol for 2 minutes and 54 seconds completing stage I, peak heart rate 127, 88% maximum predicted, peak blood pressure 150/84, capacity 4 METS Occasional PVC pretest Decreased functional capacity Resting stress SPECT Cardiolite nuclear imaging with small area of diminished tracer uptake in distal anteroseptal segments which appeared to normalize following stress comparing compatible with soft tissue attenuation/artifact. Gated LVEF 82% Current meds: Apixaban 5mg twice a day HCTZ was stopped due to elevated calcium Lisinopril 20mg daily (1/2 of 40mg) NTG SL 0.4mg SL Pravastatin 80mg daily HS Verapamil ER 300mg daily HS Use of NTG: once a couple months ago: laying in bed, woke up 2a with mid-sternal pain mild, maybe 3/10. Non-radiating. No lightheadedness. Not similar to prior angina. Chest pain, arm, jaw pain, neck, or upper back pain suggestive of angina: No. SOB: No Dyspnea with exertion: No orthopnea: No Cough : No racing or irregular heartbeats: No palpitations: No syncopal sx: No Headache: No Unexplainable fatigue No Leg swelling: No. Notes legs cramp. Nausea: No diaphoresis: No Heartburn: No Claudication: No Smoking: No Following Low cholesterol, high fiber diet? somewhat If on statin: muscle aches? No If on statin: GI sx or diarrhea? No Component Latest Ref Rng AND Units 10/02/2022 11/06/2022 05/07/2023 11/03/2023 WBC 3.70 - 11.00 k/uL 7.88 7.85 RBC 3.90 - 5.20 m/uL 4.28 4.16 Hemoglobin 11.5 - 15.5 g/dL 12.8 12.7 Hematocrit 36.0 - 46.0 % 39.7 39.0 MCV 80.0 - 100.0 fL 92.8 93.8 MCH 26.0 - 34.0 pg 29.9 30.5 MCHC 30.5 - 36.0 g/dL 32.2 32.6 RDW-CV 11.5 - 15.0 % 13.9 13.4 Platelet Count 150 - 400 k/uL 232 223 MPV 9.0 - 12.7 fL 10.3 10.9 Neut% % 61.1 64.6 Abs Neut (ANC) 1.45 - 7.50 k/uL 4.82 5.07 Lymph% % 25.8 22.7 Abs Lymph 1.00 - 4.00 k/uL 2.03 1.78 Preston% % 9.9 9.3 Abs Preston <0.87 k/uL 0.78 0.73 Eosin% % 1.8 1.9 Abs Eosin <0.46 k/uL 0.14 0.15 Baso% % 0.9 1.0 Abs Baso <0.11 k/uL 0.07 0.08 Immature Gran % % 0.5 0.5 IMMATURE GRANS (ABS) <0.10 k/uL 0.04 0.04 NRBC /100 WBC 0.0 0.0 Absolute nRBC <0.01 k/uL <0.01 <0.01 DTYPE Auto Auto Protein, Total 6.3 - 8.0 g/dL 6.9 Albumin 3.9 - 4.9 g/dL 4.3 Calcium 8.5 - 10.2 mg/dL 9.8 9.3 9.4 Bilirubin, Total 0.2 - 1.3 mg/dL 0.4 Alkaline Phosphatase 34 - 123 U/L 91 AST 13 - 35 U/L 25 ALT 7 - 38 U/L 22 Glucose 74 - 99 mg/dL 155 (H) 119 (H) 206 (H) BUN 7 - 21 mg/dL 17 13 17 Creatinine 0.58 - 0.96 mg/dL 0.70 0.78 0.74 Sodium 136 - 144 mmol/L 139 141 137 Potassium 3.7 - 5.1 mmol/L 3.7 4.4 4.5 Chloride 97 - 105 mmol/L 99 106 (H) 102 CO2 22 - 30 mmol/L 27 26 25 Anion Gap 9 - 18 mmol/L 13 9 10 eGFR >=60 mL/min/1.73mA? 89 78 82 Cholesterol, Total <200 mg/dL 146 Triglyceride <150 mg/dL 69 HDL Cholesterol >39 mg/dL 56 Non HDL Cholesterol <130 mg/dL 90 Fasting Time hrs 12 VLDL Cholesterol <30 mg/dL 14 TC:HDL Ratio <5.10 2.61 LDL Cholesterol <100 mg/dL 76 LDL:HDL Ratio <2.54 1.36 Total Cholesterol, Nonfasting <200 mg/dL 176 Triglycerides, Nonfasting <150 mg/dL 108 HDL Cholesterol, Nonfasting >39 mg/dL 59 LDL Cholesterol, Nonfasting <100 mg/dL 95 Non HDL Cholesterol, Nonfasting <130 mg/dL 117 VLDL Cholesterol, Nonfasting <30 mg/dL 22 Total Chol/HDL Ratio, Nonfasting <5.10 mg/dL 2.98 LDL/HDL Ratio, Nonfasting <2.54 mg/dL 1.61 Type 2 diabetes mellitus without complication, without long-term current use of insulin (hcc) Current medications: Dulaglutide 4.5mg SC weekly Insulin glargine 20u SC HS Taking medication as directed consistently? Yes Medication side effects: none Medical Issues / Complications: hypertension, hyperlipidemia, and cardiovascular disease Checking blood sugars at home? Yes. Morning blood sugars 90-110, HS 300s, eats dinner 430-5p Watching diet? Yes Physical Activity: Regular Hypoglycemic spells? No, though a little shakey at 89 Any visual di (more content not included)... [facility] 09-30-2023 Miscellaneous Notes Patient has been identified by name and date of : Yes Requested Prescriptions Pending Prescriptions Disp Refills lisinopril (ZESTRIL) 20 mg tablet 90 tablet 3 Sig: Take 1 tablet by mouth once daily. RX INSTRUCTIONS: Patient requested 20 mg so she does not have to cut the pills in half. Patient aware RX will be sent to pharmacy. No need to notify patient. Lazara Mosley documented in this encounter [facility] 07-22-2023 Miscellaneous Notes Rambo called [employer] and noted that she did not receive [employer] application for [employer]. Rambo noted that she will mail application again to patient to work on completing. Patient notes that she will work on completing and bring in to Dr. Taveras office when complete. documented in this encounter [facility] 07-02-2023 Note HNO ID: [id number] Author: Mary Hammer Mammo Tech Service: ? Author Type: Inside Sales Assistant Type: Progress Notes Filed: 07/02/2023 8:49 AM Note Text: Radiology Service Progress Note PATIENT NAME: Kellie Dozier DATE OF SERVICE: July 02, 2023 TIME: 8:28 AM PATIENT IDENTITY VERIFICATION COMPLETED USING TWO (2) IDENTIFIERS: Name and Date of confirmed by patient verbally. FALL SCREENING: Has the patient had 2 falls in the last year or 1 fall with injury or currently using an Ambulatory Assistive Device (Walker, Cane, Wheelchair, Crutches, etc.)? No PATIENT GENDER DATA: Female. status: : No status: NO. PATIENT RELEVANT IMPLANT DATA REVIEWED: Not Applicable RADIOLOGY DEPARTMENT: Mammography PERIPHERAL IV DATA: Not applicable SIGNED BY: Porfirio Walden July 02, 2023 8:28 AM [facility] 07-02-2023 History of Present illness Narrative Radiology Service Progress Note PATIENT NAME: Kellie Dozier DATE OF SERVICE: July 02, 2023 TIME: 8:28 AM PATIENT IDENTITY VERIFICATION COMPLETED USING TWO (2) IDENTIFIERS: Name and Date of confirmed by patient verbally. FALL SCREENING: Has the patient had 2 falls in the last year or 1 fall with injury or currently using an Ambulatory Assistive Device (Walker, Cane, Wheelchair, Crutches, etc.)? No PATIENT GENDER DATA: Female. status: : No status: NO. PATIENT RELEVANT IMPLANT DATA REVIEWED: Not Applicable RADIOLOGY DEPARTMENT: Mammography PERIPHERAL IV DATA: Not applicable SIGNED BY: Angelic WaldenNews in Shorts Delfino July 02, 2023 8:28 AM documented in this encounter [facility] 06-29-2023 Miscellaneous Notes Patient phones requesting refills as follows: Requested Prescriptions Pending Prescriptions Disp Refills insulin glargine 100 unit/mL (3 mL) 2 Each 3 Sig: Inject 20 Units subcutaneously daily at bedtime. Patient assistance med ADAN 05/07/23 NOV 11/12/23 Please review and advise. Ricardo Hinton LPN Patient has been identified by name and date of : Yes Requested Prescriptions Pending Prescriptions Disp Refills insulin glargine 100 unit/mL (3 mL) 2 Each 3 Sig: Inject 20 Units subcutaneously daily at bedtime. Patient assistance med RX INSTRUCTIONS: Patient aware RX will be sent to pharmacy. No need to notify patient. Dafne Sams [employer] documented in this encounter [facility] 05-08-2023 Miscellaneous Notes Kellie informed and verbalized understanding. Tierney White Labs are up. Increase trulicity. Recheck a1c in three months. Watch diet. documented in this encounter [facility] 05-07-2023 Note HNO ID: [id number] Author: Santo Taveras MD Service: ? Author Type: Physician Type: Progress Notes Filed: 05/07/2023 1:14 PM Note Text: Patient presents with: 6 Month Exam HPI: Patient presents today for office visit for follow up. DM: Currently using Lantus 20 units at bedtime and Trulicity 3 mg weekly. No side effects. Checks sugars twice daily Trying to watch diet No hypoglycemic spells No unexpected weight loss No vision changes. Up to date on exam No foot lesions, numbness or pain. Does not see podiatry. HTN: Taking Lisinopril 40 mg daily No side effects Monitors BP Stable No chest pain or shortness of breath Some headaches and occasional bouts of vertigo. No palpitations No syncope Thermal Molder edema Uses Meclizine for occasional dizziness. Last episode of vertigo was on 03/24/23. Only lasts for a day and has happened twice. No neuro issues. Red flags for re-assessment reviewed with patient in detail. Consider vestibular therapy. HLD: No myalgias Follows with Cardiology. Still on Eliquis and Verapamil. Having eyelid lift surgery on 05/28/[address] Richardson at [facility]. Component Latest Ref Rng AND Units 01/29/2023 Hemoglobin A1C 4.3 - 5.6 % 7.4 (H) Estimated Average Glucose mg/dL 166 MEDICATIONS: Current Outpatient Medications Medication Sig lisinopril (ZESTRIL) 40 mg tablet TAKE 1/2 (ONE-HALF) TABLET BY MOUTH ONCE DAILY apixaban (ELIQUIS) 5 mg tab(s) Take 1 tablet by mouth twice daily. ondansetron orally disintegrating (ZOFRAN ODT) 4 mg disintegrating tablet Take 1 tablet by mouth every 6 hours as needed for nausea/vomiting. meclizine (ANTIVERT) 12.5 mg tab Take 1 tablet by mouth every 6 hours as needed (dizziness). verapamil ER (VERELAN PM) 300 mg CPCT Take 1 capsule by mouth daily at bedtime. pravastatin (PRAVACHOL) 80 mg tablet Take 1 tablet by mouth once daily. nitroglycerin sublingual (NITROSTAT) 0.4 mg SL tablet Dissolve 1 tablet under the tongue as needed for chest pain. If no pain relief call 911. dulaglutide (TRULICITY) 3 mg/0.5 mL pen injector Inject 3 mg subcutaneously one time a week. insulin glargine (LANTUS SOLOSTAR, BASAGLAR KWIKPEN) 100 unit/mL (3 mL) Inject 20 Units subcutaneously daily at bedtime. Patient assistance med insulin needles, DISPOSABLE, (PEN NEEDLE) 31 gauge x 5/16 ndle Use as directed once daily as directed DM: yes Insulin: yes DX: E11.9 cyanocobalamin (VITAMIN B-12) 1,000 mcg tab Take 1 tablet by mouth once daily. brimonidine (ALPHAGAN P) 0.15 % ophthalmic solution Use 1 Drop in both eyes three times daily. pyridoxine hcl(VITAMIN B-6 100 MG TAB) Take one(1) tablet daily. CALCIUM + D 600 MG-200 UNIT TAB Take one(1) tablet daily. No current facility-administered medications for this visit. ALLERGIES: ALLERGIES Allergen Reactions Amoxicillin Diarrhea Fosamax [Alendronat* Other: See Comments myalgia Metformin Diarrhea With IR and ER forms Shellfish Diarrhea, Vomiting PAST MEDICAL HISTORY Diagnosis Date Arthritis Breast cancer (HCC) 02/18/2011 CORONARY ATHEROSCLER UNSPEC VESSEL 06/12/2009 CTS (carpal tunnel syndrome) Esophagitis, unspecified hiatal hernia, gastritis Essential hypertension, benign History of colon polyps History of percutaneous left heart catheterization 06/24/11 done at [facility] Malignant neoplasm of breast (female), unspecified site 1998 Breast cancer right OBESITY 12/16/2005 Osteoarthritis of right knee Osteopenia 05/21/2010 Paroxysmal SVT (supraventricular tachycardia) (HCC) Dr Marcelo Pure hypercholesterolemia TUBERCULIN TEST REACTION NO TBC 12/16/2005 Type II or unspecified type diabetes mellitus without mention of complication, not stated as uncontrolled Unspecified constipation Unspecified glaucoma(365.9) Glaucoma Low tension PAST SURGICAL HISTORY Procedure Laterality Date APPENDECTOMY BREAST BX NEEDLE CORE RIGHT 06/17/2008 U/S needle core bx right axilla BREAST SURGERY HX CMBND ANTERPOST COLPORRAPHY W/CYSTO 2004 Bladder and rectum repair COLON SURGERY HX COLONOSCOPY 2006 [facility] COLONOSCOPY 09/12/2014 no polyps, repeat due 2018 COLONOSCOPY AND POLYPECTOMY 10/17/2011 diverticulosis with strictures, polyps; repeat due 2013; [facility] COLONOSCOPY FLX DX W/COLLJ SPEC WHEN PFRMD 09/11/2020 22 mm polyp, repeat in 1 year for surveillance COLONOSCOPY FLX DX W/COLLJ SPEC WHEN PFRMD 09/11/2020 Colonoscopy COLONOSCOPY FLX DX W/COLLJ SPEC WHEN PFRMD 09/17/2021 repeat in 3 years EGD TRANSORAL BIOPSY SINGLE/MULTIPLE 02/24/2007 Esophagitis,Hiatal hernia, Gastritis ESOPHAGOGASTRODUODENOSCOPY TRANSORAL DIAGNOSTIC 11/13/2016 EGD EYE SURGERY HX HEART CATHETERIZATION 2009 stent x 4 HEART SURGERY HX LAPS COLECTOMY PRTL W/COLOPXTSTMY LW ANAST 11/12/2011 lap low anterior resection sigmoid for diverticular disease LUMPECTOMY/RADIOTHERAPY DIAG MAMM/A10 1998 Right breast STEREOTACTIC CORE BIOPSY 06/11/2007 LEFT TO (more content not included)... [facility] 05-07-2023 History of Present illness Narrative Patient presents with: 6 Month Exam HPI: Patient presents today for office visit for follow up. DM: Currently using Lantus 20 units at bedtime and Trulicity 3 mg weekly. No side effects. Checks sugars twice daily Trying to watch diet No hypoglycemic spells No unexpected weight loss No vision changes. Up to date on exam No foot lesions, numbness or pain. Does not see podiatry. HTN: Taking Lisinopril 40 mg daily No side effects Monitors BP Stable No chest pain or shortness of breath Some headaches and occasional bouts of vertigo. No palpitations No syncope Thermal Molder edema Uses Meclizine for occasional dizziness. Last episode of vertigo was on 03/24/23. Only lasts for a day and has happened twice. No neuro issues. Red flags for re-assessment reviewed with patient in detail. Consider vestibular therapy. HLD: No myalgias Follows with Cardiology. Still on Eliquis and Verapamil. Having eyelid lift surgery on 05/28/[address] Richardson at [facility]. Component Latest Ref Rng & Units 01/29/2023 Hemoglobin A1C 4.3 - 5.6 % 7.4 (H) Estimated Average Glucose mg/dL 166 MEDICATIONS: Current Outpatient Medications Medication Sig lisinopril (ZESTRIL) 40 mg tablet TAKE 1/2 (ONE-HALF) TABLET BY MOUTH ONCE DAILY apixaban (ELIQUIS) 5 mg tab(s) Take 1 tablet by mouth twice daily. ondansetron orally disintegrating (ZOFRAN ODT) 4 mg disintegrating tablet Take 1 tablet by mouth every 6 hours as needed for nausea/vomiting. meclizine (ANTIVERT) 12.5 mg tab Take 1 tablet by mouth every 6 hours as needed (dizziness). verapamil ER (VERELAN PM) 300 mg CPCT Take 1 capsule by mouth daily at bedtime. pravastatin (PRAVACHOL) 80 mg tablet Take 1 tablet by mouth once daily. nitroglycerin sublingual (NITROSTAT) 0.4 mg SL tablet Dissolve 1 tablet under the tongue as needed for chest pain. If no pain relief call 911. dulaglutide (TRULICITY) 3 mg/0.5 mL pen injector Inject 3 mg subcutaneously one time a week. insulin glargine (LANTUS SOLOSTAR, BASAGLAR KWIKPEN) 100 unit/mL (3 mL) Inject 20 Units subcutaneously daily at bedtime. Patient assistance med insulin needles, DISPOSABLE, (PEN NEEDLE) 31 gauge x 5/16 ndle Use as directed once daily as directed DM: yes Insulin: yes DX: E11.9 cyanocobalamin (VITAMIN B-12) 1,000 mcg tab Take 1 tablet by mouth once daily. brimonidine (ALPHAGAN P) 0.15 % ophthalmic solution Use 1 Drop in both eyes three times daily. pyridoxine hcl(VITAMIN B-6 100 MG TAB) Take one(1) tablet daily. CALCIUM + D 600 MG-200 UNIT TAB Take one(1) tablet daily. No current facility-administered medications for this visit. ALLERGIES: ALLERGIES Allergen Reactions Amoxicillin Diarrhea Fosamax [Alendronat* Other: See Comments myalgia Metformin Diarrhea With IR and ER forms Shellfish Diarrhea, Vomiting PAST MEDICAL HISTORY Diagnosis Date Arthritis Breast cancer (HCC) 02/18/2011 CORONARY ATHEROSCLER UNSPEC VESSEL 06/12/2009 CTS (carpal tunnel syndrome) Esophagitis, unspecified hiatal hernia, gastritis Essential hypertension, benign History of colon polyps History of percutaneous left heart catheterization 06/24/11 done at [facility] Malignant neoplasm of breast (female), unspecified site 1998 Breast cancer right OBESITY 12/16/2005 Osteoarthritis of right knee Osteopenia 05/21/2010 Paroxysmal SVT (supraventricular tachycardia) ([facility]) Dr Marcelo Pure hypercholesterolemia TUBERCULIN TEST REACTION NO TBC 12/16/2005 Type II or unspecified type diabetes mellitus without mention of complication, not stated as uncontrolled Unspecified constipation Unspecified glaucoma(365.9) Glaucoma Low tension PAST SURGICAL HISTORY Procedure Laterality Date APPENDECTOMY BREAST BX NEEDLE CORE RIGHT 06/17/2008 U/S needle core bx right axilla BREAST SURGERY HX CMBND ANTERPOST COLPORRAPHY W/CYSTO 2004 Bladder and rectum repair COLON SURGERY HX COLONOSCOPY 2006 [facility] COLONOSCOPY 09/12/2014 no polyps, repeat due 2018 COLONOSCOPY & POLYPECTOMY 10/17/2011 diverticulosis with strictures, polyps; repeat due 2013; [facility] COLONOSCOPY FLX DX W/COLLJ SPEC WHEN PFRMD 09/11/2020 22 mm polyp, repeat in 1 year for surveillance COLONOSCOPY FLX DX W/COLLJ SPEC WHEN PFRMD 09/11/2020 Colonoscopy COLONOSCOPY FLX DX W/COLLJ SPEC WHEN PFRMD 09/17/2021 repeat in 3 years EGD TRANSORAL BIOPSY SINGLE/MULTIPLE 02/24/2007 Esophagitis,Hiatal hernia, Gastritis ESOPHAGOGASTRODUODENOSCOPY TRANSORAL DIAGNOSTIC 11/13/2016 EGD EYE SURGERY HX HEART CATHETERIZATION 2009 stent x 4 HEART SURGERY HX LAPS COLECTOMY PRTL W/COLOPXTSTMY LW ANAST 11/12/2011 lap low anterior resection sigmoid for diverticular disease LUMPECTOMY/RADIOTHERAPY DIAG MAMM/A10 1998 Right breast STEREOTACTIC CORE BIOPSY 06/11/2007 LEFT TONSILLECTOMY HX TOTAL ABDOMINAL HYSTERECT W/WO RMVL TUBE OVARY 1976 Hysterectomy, ANN No BSO VAGINAL HYSTERECTOMY FAMILY HISTORY Problem Relation Age of Onset Diabetes Mother Hypertension Mother Lipids Mother Stroke Mother Ischemic Heart Disease Mother DVT Father Breast Cancer Maternal Aunt Social History Tobacco Use Smoking status: Never Smokeless tobacco: Never Vaping Use Vaping Use: Never used Substance Use Topics Alcohol use: No Drug use: No Reviewed current medications, allergies, past medical history, surgical history, family history and social history today. REVIEW OF SYSTEMS No gi or gu complaints. All other reviewed and negative other than HPI. HEALTH MAINTENANCE: Reviewed health maintenance issues today and recommended the following in detail. DIABETIC FOOT EXAM due on 12/18/2022 VITALS: BP 106/52 Pulse 65 Ht 162.6 cm (5' 4 ) Wt 65.4 kg (144 lb 3.2 oz) SpO2 97% BMI 24.75 kg/m Last 4 Encounter Wt Readings: Date: Wt: 01/29/2023 64.4 kg (142 lb) 01/01/2023 63.5 kg (140 lb) 10/02/2022 62.1 kg (137 lb) 06/27/2022 60.3 kg (133 lb) PHYSICAL EXAMINATION: General appearance: Well appearing, alert, in no acute distress, well-hydrated, well nourished. Skin: Skin color, texture, turgor normal, no suspicious rashes or lesions Head: Normocephalic, no masses, lesions, tenderness or abnormalities Lungs: Lungs clear to auscultation. No wheezing, rhonchi, rales Heart: RRR without murmur, gallop, or rubs. No ectopy Abdomen: Normal abdominal exam, Abdomen soft, non-tender. Bowel sounds normal. No masses, organomegaly Extremities: No deformities, edema, skin discoloration, clubbing or cyanosis. Good capillary refill. Musculoskeletal: No joint swelling, deformity, or tenderness Feet:Shoes and socks removed, No deformities, ulcers, calluses, normal distal pulses, and sensitive to 10 gm monofilament ASSESSMENT/PLAN: 1. Essential hypertension - ICD9: 401.9, ICD10: I10 (primary diagnosis) - Controlled - Continue current medications 2. Mixed hyperlipidemia - ICD9: 272.2, ICD10: E78.2 - Controlled - Continue current medications 3. Paroxysmal SVT (supraventricular tachycardia) (HCC) - ICD9: 427.0, ICD10: I47.1 - stable. 4. Persistent atrial fibrillation (HCC) - ICD9: 427.31, ICD10: I48.19 - stable. 5. Type 2 diabetes mellitus without complication, without long-term current use of insulin (HCC) - ICD9: 250.00, ICD10: E11.9 - Controlled - Continue current medications - CBC + DIFF - BASIC METABOLIC PNL - HGB A1C 6. group home current use of anticoagulant - ICD9: V58.61, ICD10: Z79.01 - stable 7. Osteopenia, unspecified location - ICD9: 733.90, ICD10: M85.80 Up to date on bone density. 8. Malignant neoplasm of female breast, unspecified estrogen receptor status, unspecified laterality, unspecified site of breast (HCC) - ICD9: 174.9, ICD10: C50.919 - mammogram Santo Taveras MD documented in this encounter [facility] 03-06-2023 Note Patient Outreach ( PO) KELLIE DOZIER ([id number]) 1945 F NFR Date Time Provider Department 03/06/23 SANTO TAVERAS During your visit today, we recorded the following information about you: Nathaniel Brownlee 03/06/2023 12:02 PM Signed Kellie Dozier is identified through a medication adherence outreach initiative based on pharmacy claims data from [employer] (insurer) for SERA medication(s) and Statin medication(s). Patient is reviewed 03/06/23 due to medication adherence concerns with the following medications (name, strength, sig): Lisnopril 40mg, take 1 tablet daily, pravastatin 80mg take 1 tablet daily . Per data/report, last fill date and days supply: lisinopril due 02/14/23, pravastatin due 02/15/23 Per reconcile dispense, last fill date and days supply: lisinopril filled on 11/16/22 for 90 days. Pravastatin filled on 02/18/23 for 90 days Any need for new prescription (I.e. out of refills on most recent prescription) YES/NO/Active: yes (lisinopril) Outcome of review/outreach: (choose outcome source and status) - Filled within 7 days of Next fill date per reconcile dispense (pravastatin) Sent refill request for lisinopril Nathaniel Brownlee Allergies As of Date: 03/06/2023 Noted Allergy Reaction AMOXICILLIN 07/23/2007 6 - Diarrhea FOSAMAX (ALENDRONATE SODIUM) 06/04/2018 14 - Other: See Comments Comments: myalgia METFORMIN 04/02/2007 6 - Diarrhea Comments: With IR and ER forms SHELLFISH 06/17/2008 6 - Diarrhea 11 - Vomiting Date Reviewed: 10/02/2022 Reviewed by: Sharla Troncoso LPN - Fully Assessed Reason for Visit: Allied Health Visit [5] Cmt: Medication Adherence Outreach Prescriptions as of 03/06/2023 - apixaban (ELIQUIS) 5 mg tab(s) Take 1 tablet by mouth twice daily. - ondansetron orally disintegrating (ZOFRAN ODT) 4 mg disintegrating tablet Take 1 tablet by mouth every 6 hours as needed for nausea/vomiting. - meclizine (ANTIVERT) 12.5 mg tab Take 1 tablet by mouth every 6 hours as needed (dizziness). - verapamil ER (VERELAN PM) 300 mg CPCT Take 1 capsule by mouth daily at bedtime. - pravastatin (PRAVACHOL) 80 mg tablet Take 1 tablet by mouth once daily. - lisinopril (ZESTRIL, PRINIVIL) 40 mg tablet Take 0.5 tablets by mouth once daily. - nitroglycerin sublingual (NITROSTAT) 0.4 mg SL tablet Dissolve 1 tablet under the tongue as needed for chest pain. If no pain relief call 911. - dulaglutide (TRULICITY) 3 mg/0.5 mL pen injector Inject 3 mg subcutaneously one time a week. - insulin glargine (LANTUS SOLOSTAR, BASAGLAR KWIKPEN) 100 unit/mL (3 mL) Inject 20 Units subcutaneously daily at bedtime. Patient assistance med - insulin needles, DISPOSABLE, (PEN NEEDLE) 31 gauge x 5/16 ndle Use as directed once daily as directed DM: yes Insulin: yes DX: E11.9 - cyanocobalamin (VITAMIN B-12) 1,000 mcg tab Take 1 tablet by mouth once daily. - brimonidine (ALPHAGAN P) 0.15 % ophthalmic solution Use 1 Drop in both eyes three times daily. - pyridoxine hcl(VITAMIN B-6 100 MG TAB) Take one(1) tablet daily. - CALCIUM + D 600 MG-200 UNIT TAB Take one(1) tablet daily. Problem List As Of Date 03/06/2023 Noted Resolved TUBERCULIN TEST REACTION NO TBC [795.5] 12/16/2005 Essential hypertension [I10] 12/16/2005 Hyperlipidemia [E78.5] 12/16/2005 Type 2 diabetes mellitus without complications *12/16/2005 OBESITY [E66.9] 12/16/2005 10/02/2022 GE REFLUX (GASTROESOPHAGEAL) [K21.9] 02/24/2007 HIATAL HERNIA [K44.9] 02/24/2007 02/18/2011 GASTRITIS ANTRAL( W/O Hemorrhage) [K29.60] 02/24/2007 02/18/2011 Esophagitis, unspecified [K20.90] 02/24/2007 02/18/2011 Herpes zoster with other nervous system complic*03/09/2007 03/05/2018 Abnormal mammogram, unspecified [R92.8] 05/17/2007 02/18/2011 Coronary atherosclerosis [I25.10] 06/12/2009 Other specified cardiac dysrhythmias(427.89) [I*06/12/2009 10/02/2022 Osteopenia [M85.80] 05/21/2010 Breast cancer [C50.919] 02/18/2011 Paroxysmal SVT (supraventricular tachycardia) (* Osteoarthritis of right knee [M17.11] CTS (carpal tunnel syndrome) [G56.00] 06/04/2018 Constipation [K59.00] 10/14/2011 10/02/2022 Unspecified constipation [K59.00] 10/17/2011 03/17/2019 Benign neoplasm of colon [D12.6] 10/17/2011 10/02/2022 Diverticulitis [K57.92] 10/24/2011 10/02/2022 group home current use of anticoagulant [Z79.01]01/10/2017 Persistent atrial fibrillation (HCC) [I48.19] 01/10/2017 Tendonitis, Achilles, left [M76.62] 03/26/2018 06/04/2018 Tendonitis, Achilles, right [M76.61] 03/26/2018 06/04/2018 Nonrheumatic mitral valve regurgitation [I34.0] 06/17/2021 History of colon polyps [Z86.010] Encounter Status:Closed by NATHANIEL BROWNLEE on 03/06/23 [facility] 03-06-2023 Miscellaneous Notes Patient phones requesting refills as follows: Pharmacy comment: Please clarify the directions for this prescription. Requested Prescriptions Pending Prescriptions Disp Refills lisinopril (ZESTRIL) 40 mg tablet [Pharmacy Med Name: LISINOPRIL 40MG TAB] 90 tablet 3 Sig: TAKE 1/2 (ONE-HALF) TABLET BY MOUTH ONCE DAILY Please review and advise. Swati Hall LPN documented in this encounter [facility] 03-06-2023 Note HNO ID: [id number] Author: Nathaniel Brownlee Service: ? Author Type: ? Type: Progress Notes Filed: 03/06/2023 12:02 PM Note Text: Kellie Dozier is identified through a medication adherence outreach initiative based on pharmacy claims data from [employer] (insurer) for SERA medication(s) and Statin medication(s). Patient is reviewed 03/06/23 due to medication adherence concerns with the following medications (name, strength, sig): Lisnopril 40mg, take 1 tablet daily, pravastatin 80mg take 1 tablet daily . Per data/report, last fill date and days supply: lisinopril due 02/14/23, pravastatin due 02/15/23 Per reconcile dispense, last fill date and days supply: lisinopril filled on 11/16/22 for 90 days. Pravastatin filled on 02/18/23 for 90 days Any need for new prescription (I.e. out of refills on most recent prescription) YES/NO/Active: yes (lisinopril) Outcome of review/outreach: (choose outcome source and status) - Filled within 7 days of Next fill date per reconcile dispense (pravastatin) Sent refill request for lisinopril Nathaniel Brownlee [facility] 03-06-2023 Miscellaneous Notes Patient reviewed for Population Health Medication Adherence Pended the following prescription(s) for review. Requested Prescriptions Pending Prescriptions Disp Refills lisinopril (ZESTRIL) 40 mg tablet 90 tablet 3 Sig: Take 0.5 tablets by mouth once daily. Future Appointments Date Time Provider Department Center 05/07/2023 11:00 AM Santo Taveras MD [facility] Please review and refill if appropriate. Thank you. Nathaniel Brownlee March 06, 2023 12:03 PM documented in this encounter [facility] 01-29-2023 Note HNO ID: [id number] Author: Santo Taveras MD Service: ? Author Type: Physician Type: Progress Notes Filed: 01/29/2023 4:35 PM Note Text: Patient presents with: Follow Up Diabetes HPI: Patient presents today for office visit for follow up. Follow up from last visit with [facility] was in for vertigo. Blood pressure was elevated. Feeling good no more episodes of vertigo since then. Does monitor at home about every other day. Denies chest pain, shortness of breath, or edema. Given meclizine and zofran. Was better the next day. Overall feels much better. Glucose up in the evenings. Hasn't changed diet at all. Reports at least in the 200's. Declines foot exam today. Is up to date on mammogram. Has had her bone density as well. Is seeing cardiology soon. See previous ov from [facility]: Started yesterday evening 10p with sudden dizziness with a feeling like she is spinning but not the room, No hearing loss. No falls No recent colds. Checked sugar, glu 145 MEDICATIONS: Current Outpatient Medications Medication Sig apixaban (ELIQUIS) 5 mg tab(s) Take 1 tablet by mouth twice daily. ondansetron orally disintegrating (ZOFRAN ODT) 4 mg disintegrating tablet Take 1 tablet by mouth every 6 hours as needed for nausea/vomiting. meclizine (ANTIVERT) 12.5 mg tab Take 1 tablet by mouth every 6 hours as needed (dizziness). verapamil ER (VERELAN PM) 300 mg CPCT Take 1 capsule by mouth daily at bedtime. pravastatin (PRAVACHOL) 80 mg tablet Take 1 tablet by mouth once daily. lisinopril (ZESTRIL, PRINIVIL) 40 mg tablet Take 0.5 tablets by mouth once daily. nitroglycerin sublingual (NITROSTAT) 0.4 mg SL tablet Dissolve 1 tablet under the tongue as needed for chest pain. If no pain relief call 911. dulaglutide (TRULICITY) 3 mg/0.5 mL pen injector Inject 3 mg subcutaneously one time a week. insulin glargine (LANTUS SOLOSTAR, BASAGLAR KWIKPEN) 100 unit/mL (3 mL) Inject 20 Units subcutaneously daily at bedtime. Patient assistance med insulin needles, DISPOSABLE, (PEN NEEDLE) 31 gauge x 5/16 ndle Use as directed once daily as directed DM: yes Insulin: yes DX: E11.9 cyanocobalamin (VITAMIN B-12) 1,000 mcg tab Take 1 tablet by mouth once daily. brimonidine (ALPHAGAN P) 0.15 % ophthalmic solution Use 1 Drop in both eyes three times daily. pyridoxine hcl(VITAMIN B-6 100 MG TAB) Take one(1) tablet daily. CALCIUM + D 600 MG-200 UNIT TAB Take one(1) tablet daily. No current facility-administered medications for this visit. ALLERGIES: ALLERGIES Allergen Reactions Amoxicillin Diarrhea Fosamax [Alendronat* Other: See Comments myalgia Metformin Diarrhea With IR and ER forms Shellfish Diarrhea, Vomiting PAST MEDICAL HISTORY Diagnosis Date Arthritis Breast cancer (HCC) 02/18/2011 CORONARY ATHEROSCLER UNSPEC VESSEL 06/12/2009 CTS (carpal tunnel syndrome) Esophagitis, unspecified hiatal hernia, gastritis Essential hypertension, benign History of colon polyps History of percutaneous left heart catheterization 06/24/11 done at [facility] Malignant neoplasm of breast (female), unspecified site 1998 Breast cancer right OBESITY 12/16/2005 Osteoarthritis of right knee Osteopenia 05/21/2010 Paroxysmal SVT (supraventricular tachycardia) (HCC) Dr Marcelo Pure hypercholesterolemia TUBERCULIN TEST REACTION NO TBC 12/16/2005 Type II or unspecified type diabetes mellitus without mention of complication, not stated as uncontrolled Unspecified constipation Unspecified glaucoma(365.9) Glaucoma Low tension PAST SURGICAL HISTORY Procedure Laterality Date APPENDECTOMY BREAST BX NEEDLE CORE RIGHT 06/17/2008 U/S needle core bx right axilla BREAST SURGERY HX CMBND ANTERPOST COLPORRAPHY W/CYSTO 2004 Bladder and rectum repair COLON SURGERY HX COLONOSCOPY 2006 [facility] COLONOSCOPY 09/12/2014 no polyps, repeat due 2018 COLONOSCOPY AND POLYPECTOMY 10/17/2011 diverticulosis with strictures, polyps; repeat due 2013; [facility] COLONOSCOPY FLX DX W/COLLJ SPEC WHEN PFRMD 09/11/2020 22 mm polyp, repeat in 1 year for surveillance COLONOSCOPY FLX DX W/COLLJ SPEC WHEN PFRMD 09/11/2020 Colonoscopy COLONOSCOPY FLX DX W/COLLJ SPEC WHEN PFRMD 09/17/2021 repeat in 3 years EGD TRANSORAL BIOPSY SINGLE/MULTIPLE 02/24/2007 Esophagitis,Hiatal hernia, Gastritis ESOPHAGOGASTRODUODENOSCOPY TRANSORAL DIAGNOSTIC 11/13/2016 EGD EYE SURGERY HX HEART CATHETERIZATION 2009 stent x 4 HEART SURGERY HX LAPS COLECTOMY PRTL W/COLOPXTSTMY LW ANAST 11/12/2011 lap low anterior resection sigmoid for diverticular disease LUMPECTOMY/RADIOTHERAPY DIAG MAMM/A10 1998 Right breast STEREOTACTIC CORE BIOPSY 06/11/2007 LEFT TONSILLECTOMY HX TOTAL ABDOMINAL HYSTERECT W/WO RMVL TUBE OVARY 1976 Hysterectomy, ANN No BSO VAGINAL HYSTERECTOMY FAMILY HISTORY Problem Relation Age of Onset Diabetes Mother Hypertension Mother Lipids Mother Stroke Mother Ischemic Heart Disease Mother DVT Fa (more content not included)... [facility] 01-29-2023 History of Present illness Narrative Patient presents with: Follow Up Diabetes HPI: Patient presents today for office visit for follow up. Follow up from last visit with Rafael was in for vertigo. Blood pressure was elevated. Feeling good no more episodes of vertigo since then. Does monitor at home about every other day. Denies chest pain, shortness of breath, or edema. Given meclizine and zofran. Was better the next day. Overall feels much better. Glucose up in the evenings. Hasn't changed diet at all. Reports at least in the 200's. Declines foot exam today. Is up to date on mammogram. Has had her bone density as well. Is seeing cardiology soon. See previous ov from Rafael: Started yesterday evening 10p with sudden dizziness with a feeling like she is spinning but not the room, No hearing loss. No falls No recent colds. Checked sugar, glu 145 MEDICATIONS: Current Outpatient Medications Medication Sig apixaban (ELIQUIS) 5 mg tab(s) Take 1 tablet by mouth twice daily. ondansetron orally disintegrating (ZOFRAN ODT) 4 mg disintegrating tablet Take 1 tablet by mouth every 6 hours as needed for nausea/vomiting. meclizine (ANTIVERT) 12.5 mg tab Take 1 tablet by mouth every 6 hours as needed (dizziness). verapamil ER (VERELAN PM) 300 mg CPCT Take 1 capsule by mouth daily at bedtime. pravastatin (PRAVACHOL) 80 mg tablet Take 1 tablet by mouth once daily. lisinopril (ZESTRIL, PRINIVIL) 40 mg tablet Take 0.5 tablets by mouth once daily. nitroglycerin sublingual (NITROSTAT) 0.4 mg SL tablet Dissolve 1 tablet under the tongue as needed for chest pain. If no pain relief call 911. dulaglutide (TRULICITY) 3 mg/0.5 mL pen injector Inject 3 mg subcutaneously one time a week. insulin glargine (LANTUS SOLOSTAR, BASAGLAR KWIKPEN) 100 unit/mL (3 mL) Inject 20 Units subcutaneously daily at bedtime. Patient assistance med insulin needles, DISPOSABLE, (PEN NEEDLE) 31 gauge x 5/16 ndle Use as directed once daily as directed DM: yes Insulin: yes DX: E11.9 cyanocobalamin (VITAMIN B-12) 1,000 mcg tab Take 1 tablet by mouth once daily. brimonidine (ALPHAGAN P) 0.15 % ophthalmic solution Use 1 Drop in both eyes three times daily. pyridoxine hcl(VITAMIN B-6 100 MG TAB) Take one(1) tablet daily. CALCIUM + D 600 MG-200 UNIT TAB Take one(1) tablet daily. No current facility-administered medications for this visit. ALLERGIES: ALLERGIES Allergen Reactions Amoxicillin Diarrhea Fosamax [Alendronat* Other: See Comments myalgia Metformin Diarrhea With IR and ER forms Shellfish Diarrhea, Vomiting PAST MEDICAL HISTORY Diagnosis Date Arthritis Breast cancer (HCC) 02/18/2011 CORONARY ATHEROSCLER UNSPEC VESSEL 06/12/2009 CTS (carpal tunnel syndrome) Esophagitis, unspecified hiatal hernia, gastritis Essential hypertension, benign History of colon polyps History of percutaneous left heart catheterization 06/24/11 done at [facility] Malignant neoplasm of breast (female), unspecified site 1998 Breast cancer right OBESITY 12/16/2005 Osteoarthritis of right knee Osteopenia 05/21/2010 Paroxysmal SVT (supraventricular tachycardia) ([facility]) Dr Marcelo Pure hypercholesterolemia TUBERCULIN TEST REACTION NO TBC 12/16/2005 Type II or unspecified type diabetes mellitus without mention of complication, not stated as uncontrolled Unspecified constipation Unspecified glaucoma(365.9) Glaucoma Low tension PAST SURGICAL HISTORY Procedure Laterality Date APPENDECTOMY BREAST BX NEEDLE CORE RIGHT 06/17/2008 U/S needle core bx right axilla BREAST SURGERY HX CMBND ANTERPOST COLPORRAPHY W/CYSTO 2004 Bladder and rectum repair COLON SURGERY HX COLONOSCOPY 2006 [facility] COLONOSCOPY 09/12/2014 no polyps, repeat due 2018 COLONOSCOPY & POLYPECTOMY 10/17/2011 diverticulosis with strictures, polyps; repeat due 2013; [facility] COLONOSCOPY FLX DX W/COLLJ SPEC WHEN PFRMD 09/11/2020 22 mm polyp, repeat in 1 year for surveillance COLONOSCOPY FLX DX W/COLLJ SPEC WHEN PFRMD 09/11/2020 Colonoscopy COLONOSCOPY FLX DX W/COLLJ SPEC WHEN PFRMD 09/17/2021 repeat in 3 years EGD TRANSORAL BIOPSY SINGLE/MULTIPLE 02/24/2007 Esophagitis,Hiatal hernia, Gastritis ESOPHAGOGASTRODUODENOSCOPY TRANSORAL DIAGNOSTIC 11/13/2016 EGD EYE SURGERY HX HEART CATHETERIZATION 2009 stent x 4 HEART SURGERY HX LAPS COLECTOMY PRTL W/COLOPXTSTMY LW ANAST 11/12/2011 lap low anterior resection sigmoid for diverticular disease LUMPECTOMY/RADIOTHERAPY DIAG MAMM/A10 1998 Right breast STEREOTACTIC CORE BIOPSY 06/11/2007 LEFT TONSILLECTOMY HX TOTAL ABDOMINAL HYSTERECT W/WO RMVL TUBE OVARY 1976 Hysterectomy, ANN No BSO VAGINAL HYSTERECTOMY FAMILY HISTORY Problem Relation Age of Onset Diabetes Mother Hypertension Mother Lipids Mother Stroke Mother Ischemic Heart Disease Mother DVT Father Breast Cancer Maternal Aunt Social History Tobacco Use Smoking status: Never Smokeless tobacco: Never Vaping Use Vaping Use: Never used Substance Use Topics Alcohol use: No Drug use: No Reviewed current medications, allergies, past medical history, surgical history, family history and social history today. REVIEW OF SYSTEMS All other reviewed and negative other than HPI. HEALTH MAINTENANCE: Reviewed health maintenance issues today and recommended the following in detail. COVID-19 VACCINE(1) Never done BP CONTROLLED (<130/80) Never done SHINGRIX VACCINE(2 of 3) due on 08/08/2011 DTAP,TDAP,TD(2 - Td or Tdap) due on 04/13/2017 ADVANCE DIRECTIVE DISCUSSION - is in the process of doing it. DEPRESSION ASSESSMENT due on 11/02/2022 DIABETIC FOOT EXAM refuses today VITALS: BP 112/62 Pulse 70 Wt 64.4 kg (142 lb) SpO2 97% BMI 24.24 kg/m Last 4 Encounter Wt Readings: Date: Wt: 01/01/2023 63.5 kg (140 lb) 10/02/2022 62.1 kg (137 lb) 06/27/2022 60.3 kg (133 lb) 12/18/2021 63 kg (139 lb) PHYSICAL EXAMINATION: General appearance: Well appearing, alert, in no acute distress, well-hydrated, well nourished. Skin: Skin color, texture, turgor normal, no suspicious rashes or lesions Head: Normocephalic, no masses, lesions, tenderness or abnormalities Lungs: Lungs clear to auscultation. No wheezing, rhonchi, rales Heart: RRR without murmur, gallop, or rubs. No ectopy Abdomen: Normal abdominal exam, Abdomen soft, non-tender. Bowel sounds normal. No masses, organomegaly Extremities: No deformities, edema, skin discoloration, clubbing or cyanosis. Good capillary refill. Musculoskeletal: No joint swelling, deformity, or tenderness ASSESSMENT/PLAN: 1. Vertigo - ICD9: 780.4, ICD10: R42 (primary diagnosis) - better. Call if recurs. 2. Essential hypertension - ICD9: 401.9, ICD10: I10 - good control - Continue current medication(s) - Goal of BP <130/80 3. Atherosclerosis of coronary artery of [place] heart without angina pectoris, unspecified vessel or lesion type - ICD9: 414.01, ICD10: I25.10 - call if any issues. 4. Persistent atrial fibrillation (HCC) - ICD9: 427.31, ICD10: I48.19 - stable. 5. Paroxysmal SVT (supraventricular tachycardia) (HCC) - ICD9: 427.0, ICD10: I47.1 - per cardiology 6. Type 2 diabetes mellitus without complication, without long-term current use of insulin (HCC) - ICD9: 250.00, ICD10: E11.9 - follow labs. - HGB A1C 7. Malignant neoplasm of female breast, unspecified estrogen receptor status, unspecified laterality, unspecified site of breast (HCC) - ICD9: 174.9, ICD10: C50.919 - stable. 8. Osteopenia, unspecified location - ICD9: 733.90, ICD10: M85.80 Bone density is up to date. Santo Taveras MD documented in this encounter [facility] 01-28-2023 Miscellaneous Notes Rambo took below applications up to [address] office. Patient spoke with Rambo regarding [employer]-Trulicity and Basaglar. 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 Patient reports that she is also keeping an eye on how much she is spending for [employer] for Eliquis. [facility] has a 3% spend out on prescriptions. Rambo will provide Dr. Taveras office with [employer] and [employer] applications along with consent for release forms. Sw left patient message to call Sw back in regards to [facility] [employer] for Trulicity and Basaglar. Rambo received note that states patient yearly application ends 03/25/23. Sw will talk with patient about reapplying to program for above medications. documented in this encounter [facility] 01-16-2023 Miscellaneous Notes Pharmacy verified in [facility] Patient has been identified by name and date of : Yes Patient aware RX will be sent to pharmacy. No need to notify patient. Patient phones for refill(s): Requested Prescriptions Pending Prescriptions Disp Refills apixaban (ELIQUIS) 5 mg tab(s) 180 tablet 3 Sig: Take 1 tablet by mouth twice daily. Date of last office visit : 01/01/2023 Date of next office visit : 01/29/2023 Last 2 Encounter Wt Readings: Date: Wt: 01/01/2023 63.5 kg (140 lb) 10/02/2022 62.1 kg (137 lb) Please advise. Genet Krishna Pss documented in this encounter [facility] 01-01-2023 Note HNO ID: [id number] Author: Talya Rodriguez PA-C Service: ? Author Type: Physician Clinical Laboratory Manager Type: Progress Notes Filed: 01/01/2023 12:55 PM Note Text: Meclizine 77 year old female with c/o here for BP check. Started yesterday evening 10p with sudden dizziness with a feeling like she is spinning but not the room, No hearing loss. No falls No recent colds. Checked sugar, glu 145 Paroxysmal svt (supraventricular tachycardia) (hcc) (primary encounter diagnosis) Persistent atrial fibrillation (hcc) Atherosclerosis of coronary artery of [place] heart without angina pectoris, unspecified vessel or lesion type Essential hypertension Mixed hyperlipidemia Nonrheumatic mitral valve regurgitation Cardiovascular interval hx: none Current meds: Verapamil ER 300mg daily HS Lisinopril 20mg daily (1/2 of 40mg) Pravastatin 80mg daily HS NTG SL 0.4mg SL Apixaban 5mg twice a day HCTZ was stopped due to elevated calcium Use of NTG: No Chest pain, arm, jaw pain, neck, or upper back pain suggestive of angina: No. SOB: No Dyspnea with exertion: No orthopnea: No Cough : No racing or irregular heartbeats: No palpitations: No syncopal sx: No Headache: No Unexplainable fatigue No Leg swelling: No Nausea: No diaphoresis: No Heartburn: No Claudication: No Smoking: No Following Low cholesterol, high fiber diet? somewhat If on statin: muscle aches? No If on statin: GI sx or diarrhea? No Additional history none. Lab review: Component Latest Ref Rng AND Units 10/02/2022 11/06/2022 WBC 3.70 - 11.00 k/uL 7.88 RBC 3.90 - 5.20 m/uL 4.28 Hemoglobin 11.5 - 15.5 g/dL 12.8 Hematocrit 36.0 - 46.0 % 39.7 MCV 80.0 - 100.0 fL 92.8 MCH 26.0 - 34.0 pg 29.9 MCHC 30.5 - 36.0 g/dL 32.2 RDW-CV 11.5 - 15.0 % 13.9 Platelet Count 150 - 400 k/uL 232 MPV 9.0 - 12.7 fL 10.3 Neut% % 61.1 Abs Neut (ANC) 1.45 - 7.50 k/uL 4.82 Lymph% % 25.8 Abs Lymph 1.00 - 4.00 k/uL 2.03 Preston% % 9.9 Abs Preston <0.87 k/uL 0.78 Eosin% % 1.8 Abs Eosin <0.46 k/uL 0.14 Baso% % 0.9 Abs Baso <0.11 k/uL 0.07 Immature Gran % % 0.5 IMMATURE GRANS (ABS) <0.10 k/uL 0.04 NRBC /100 WBC 0.0 Absolute nRBC <0.01 k/uL <0.01 DTYPE Auto Protein, Total 6.3 - 8.0 g/dL 6.9 Albumin 3.9 - 4.9 g/dL 4.3 Calcium 8.5 - 10.2 mg/dL 9.8 9.3 Bilirubin, Total 0.2 - 1.3 mg/dL 0.4 Alkaline Phosphatase 34 - 123 U/L 91 AST 13 - 35 U/L 25 ALT 7 - 38 U/L 22 Glucose 74 - 99 mg/dL 155 (H) 119 (H) BUN 7 - 21 mg/dL 17 13 Creatinine 0.58 - 0.96 mg/dL 0.70 0.78 Sodium 136 - 144 mmol/L 139 141 Potassium 3.7 - 5.1 mmol/L 3.7 4.4 Chloride 97 - 105 mmol/L 99 106 (H) CO2 22 - 30 mmol/L 27 26 Anion Gap 9 - 18 mmol/L 13 9 eGFR >=60 mL/min/1.73mA? 89 78 Total Cholesterol, Nonfasting <200 mg/dL 176 Triglycerides, Nonfasting <150 mg/dL 108 HDL Cholesterol, Nonfasting >39 mg/dL 59 LDL Cholesterol, Nonfasting <100 mg/dL 95 Non HDL Cholesterol, Nonfasting <130 mg/dL 117 VLDL Cholesterol, Nonfasting <30 mg/dL 22 Total Chol/HDL Ratio, Nonfasting <5.10 mg/dL 2.98 LDL/HDL Ratio, Nonfasting <2.54 mg/dL 1.61 Hemoglobin A1C (%) Date Value 10/02/2022 7.3 06/27/2022 7.2 12/18/2021 7.4 06/15/2021 7.1 ) HISTORIES FAMILY HISTORY Problem Relation Age of Onset Diabetes Mother Hypertension Mother Lipids Mother Stroke Mother Ischemic Heart Disease Mother DVT Father Breast Cancer Maternal Aunt PAST MEDICAL HISTORY Diagnosis Date Arthritis Breast cancer (HCC) 02/18/2011 CORONARY ATHEROSCLER UNSPEC VESSEL 06/12/2009 CTS (carpal tunnel syndrome) Esophagitis, unspecified hiatal hernia, gastritis Essential hypertension, benign History of colon polyps History of percutaneous left heart catheterization 06/24/11 done at [facility] Malignant neoplasm of breast (female), unspecified site 1998 Breast cancer right OBESITY 12/16/2005 Osteoarthritis of right knee Osteopenia 05/21/2010 Paroxysmal SVT (supraventricular tachycardia) (HCC) Dr Marcelo Pure hypercholesterolemia TUBERCULIN TEST REACTION NO TBC 12/16/2005 Type II or unspecified type diabetes mellitus without mention of complication, not stated as uncontrolled Unspecified constipation Unspecified glaucoma(365.9) Glaucoma Low tension PAST SURGICAL HISTORY Procedure Laterality Date APPENDECTOMY BREAST BX NEEDLE CORE RIGHT 06/17/2008 U/S needle core bx right axilla BREAST SURGERY HX CMBND ANTERPOST COLPORRAPHY W/CYSTO 2005 Bladder and rectum repair COLON SURGERY HX COLONOSCOPY 2006 [facility] COLONOSCOPY 09/12/2014 no polyps, repeat due 2019 COLONOSCOPY AND POLYPECTOMY 10/17/2011 diverticulosis with strictures, polyps; repeat due 2013; [facility] COLONOSCOPY FLX DX W/COLLJ SPEC WHEN PFRMD 09/11/2020 22 mm polyp, repeat in 1 year for surveillance COLONOSCOPY FLX DX W/COLLJ SPEC WHEN PFRMD 09/11/2020 Colonoscopy COLONOSCOPY FLX DX W/COLLJ SPEC WHEN PFRMD 09/17/2021 repeat in 3 years EGD TRANSORAL BIOPSY SINGLE/MU (more content not included)... [facility] 01-01-2023 Instructions M Forrest Rodriguez PA-C - 01/01/2023 11:32 AM EST Positional Vertigo What is positional vertigo? Positional vertigo is an inner ear problem. It causes brief but sometimes severe feelings of spinning. Some people feel that their head or body is spinning. Others feel the room is spinning. People often say they are dizzy, but dizzy is a very general term. Vertigo, on the other hand, is the very specific feeling of uncontrollable spinning. Positional vertigo happens suddenly when you change the position of your head. Another name for this problem is benign paroxysmal positional vertigo. How does it occur? In the inner part of your ear are 3 semicircular canals. Movement of the fluid in these canals helps your brain maintain your balance and know what position you are in (for example, standing up, lying down, or standing on your head). Sometimes small crystals of calcium develop and float in the fluid in the inner ear. This can happen after a head injury, with a severe cold, or simply as a part of normal aging. The crystals can cause vertigo when you change head position and they strike against nerve endings in the semicircular canals. Usually the calcium crystals dissolve in a few weeks and stop causing vertigo. However, sometimes the crystals do not dissolve and the vertigo returns from time to time. What are the symptoms? A sudden feeling that you are spinning, or that the room is spinning, is the main symptom. You may feel the vertigo when you first wake up. It may seem that any turn of your head brings on brief but intense spells of vertigo. It may happen when you tilt your head, look up or down, or roll over in bed. You may have nausea and vomiting along with the vertigo. Even if a spell of vertigo is brief, you may have a feeling of queasiness for several minutes or even hours afterward. How is it diagnosed? Your healthcare provider will ask about your symptoms and examine you. You may also be given a Hamilton-Hallpike position test. You start the Hamilton-Hallpike test by sitting upright on the examining table. Your healthcare provider slowly brings your head down over the edge of the table and turns your head to one side. If you have positional vertigo, your provider will see your eyes making fast, jerky movements called nystagmus. If no nystagmus is seen, your provider will repeat the test, this time turning your head to the opposite side, to test the other inner ear. If you then have nystagmus and vertigo, the ear that is pointing toward the floor is the one causing the problem. The nystagmus and vertigo will slow down and stop after 15 to 20 seconds. If you do not move your head, no more symptoms will occur. When you sit back up, you will have vertigo again, but for a shorter time. Other tests you may have are: an ear exam an audiogram to check your hearing a test of your nerve responses an electronystagmogram (ENG) test. How is it treated? Mild vertigo is often treated with medicine. The most common medicine for this problem is meclizine. It is taken up to 4 times a day for the vertigo and nausea or vomiting. One of the problems with this medicine is that it causes drowsiness. This is not as much of a problem if you have severe vertigo, which usually requires bed rest. Then the medicine can help you sleep and get relief from the vertigo while you sleep. Your healthcare provider may recommend techniques that use gravity to move the crystals away from the nerve endings into an area of the inner ear that won't cause any problems. These are called repositioning techniques. One repositioning technique is the Ramos maneuver. It can be very helpful. Your healthcare provider will move your head into 4 positions. You will hold each position for about 30 seconds. Your healthcare provider may also suggest that you do Sahu-Daroff exercises. Your provider may recommend that you do these exercises 3 times a day for 2 weeks. To do these exercises: Start by sitting upright on your bed. Lie on your left side, with your head angled upward about half-way. (Imagine that you are looking at the head of someone standing about 6 feet in front of you.) Stay in this position for 30 seconds, or, if you are having vertigo, until the vertigo stops. Return to the sitting position for 30 seconds. Lie on your right side, and follow the same routine. Your healthcare provider may refer you to a physical therapist to learn and practice these repositioning techniques. Rarely, when repositioning techniques don't help and the vertigo has not gone away after a few weeks, severe cases may eventually require surgery. How long will the effects last? Even without treatment, positional vertigo usually goes away within several weeks. Sometimes it recurs despite treatment. How do I take care of myself? If your vertigo is mild, you may be able to continue your usual activities, especially if you have opportunities to sit and rest when you have vertigo. If your vertigo does not allow you to continue your usual routine, you should rest at home. Use medicine as prescribed by your healthcare provider to help stop symptoms of dizziness, nausea, and vomiting. Follow your instructions for using the repositioning techniques. Do not try to drive, operate tools or machinery, or do other tasks, even cooking, that could endanger yourself or others if you suddenly become dizzy. Follow your healthcare provider's recommendations for follow-up visits. Contact your healthcare provider if: Your symptoms seem to be getting worse, more frequent, or longer lasting. You develop new symptoms, such as a loss of hearing or severe headache. Published by [employer]. This content is reviewed periodically and is subject to change as new health information becomes available. The information is intended to inform and educate and is not a replacement for medical evaluation, advice, diagnosis or treatment by a healthcare professional. Developed by [employer] Copyright 2007 [employer] and/or one of its subsidiaries. All Rights Reserved. Special Instructions: See information from pharmacy on Zofran and meclizine. Copyright [employer] 2007 [employer] Copyright 2007 [employer]. All rights reserved. - [email or web address] documented in this encounter [facility] 01-01-2023 History of Present illness Narrative Meclizine 77 year old female with c/o here for BP check. Started yesterday evening 10p with sudden dizziness with a feeling like she is spinning but not the room, No hearing loss. No falls No recent colds. Checked sugar, glu 145 Paroxysmal svt (supraventricular tachycardia) (hcc) (primary encounter diagnosis) Persistent atrial fibrillation (hcc) Atherosclerosis of coronary artery of [place] heart without angina pectoris, unspecified vessel or lesion type Essential hypertension Mixed hyperlipidemia Nonrheumatic mitral valve regurgitation Cardiovascular interval hx: none Current meds: Verapamil ER 300mg daily HS Lisinopril 20mg daily (1/2 of 40mg) Pravastatin 80mg daily HS NTG SL 0.4mg SL Apixaban 5mg twice a day HCTZ was stopped due to elevated calcium Use of NTG: No Chest pain, arm, jaw pain, neck, or upper back pain suggestive of angina: No. SOB: No Dyspnea with exertion: No orthopnea: No Cough : No racing or irregular heartbeats: No palpitations: No syncopal sx: No Headache: No Unexplainable fatigue No Leg swelling: No Nausea: No diaphoresis: No Heartburn: No Claudication: No Smoking: No Following Low cholesterol, high fiber diet? somewhat If on statin: muscle aches? No If on statin: GI sx or diarrhea? No Additional history none. Lab review: Component Latest Ref Rng & Units 10/02/2022 11/06/2022 WBC 3.70 - 11.00 k/uL 7.88 RBC 3.90 - 5.20 m/uL 4.28 Hemoglobin 11.5 - 15.5 g/dL 12.8 Hematocrit 36.0 - 46.0 % 39.7 MCV 80.0 - 100.0 fL 92.8 MCH 26.0 - 34.0 pg 29.9 MCHC 30.5 - 36.0 g/dL 32.2 RDW-CV 11.5 - 15.0 % 13.9 Platelet Count 150 - 400 k/uL 232 MPV 9.0 - 12.7 fL 10.3 Neut% % 61.1 Abs Neut (ANC) 1.45 - 7.50 k/uL 4.82 Lymph% % 25.8 Abs Lymph 1.00 - 4.00 k/uL 2.03 Preston% % 9.9 Abs Preston <0.87 k/uL 0.78 Eosin% % 1.8 Abs Eosin <0.46 k/uL 0.14 Baso% % 0.9 Abs Baso <0.11 k/uL 0.07 Immature Gran % % 0.5 IMMATURE GRANS (ABS) <0.10 k/uL 0.04 NRBC /100 WBC 0.0 Absolute nRBC <0.01 k/uL <0.01 DTYPE Auto Protein, Total 6.3 - 8.0 g/dL 6.9 Albumin 3.9 - 4.9 g/dL 4.3 Calcium 8.5 - 10.2 mg/dL 9.8 9.3 Bilirubin, Total 0.2 - 1.3 mg/dL 0.4 Alkaline Phosphatase 34 - 123 U/L 91 AST 13 - 35 U/L 25 ALT 7 - 38 U/L 22 Glucose 74 - 99 mg/dL 155 (H) 119 (H) BUN 7 - 21 mg/dL 17 13 Creatinine 0.58 - 0.96 mg/dL 0.70 0.78 Sodium 136 - 144 mmol/L 139 141 Potassium 3.7 - 5.1 mmol/L 3.7 4.4 Chloride 97 - 105 mmol/L 99 106 (H) CO2 22 - 30 mmol/L 27 26 Anion Gap 9 - 18 mmol/L 13 9 eGFR >=60 mL/min/1.73m 89 78 Total Cholesterol, Nonfasting <200 mg/dL 176 Triglycerides, Nonfasting <150 mg/dL 108 HDL Cholesterol, Nonfasting >39 mg/dL 59 LDL Cholesterol, Nonfasting <100 mg/dL 95 Non HDL Cholesterol, Nonfasting <130 mg/dL 117 VLDL Cholesterol, Nonfasting <30 mg/dL 22 Total Chol/HDL Ratio, Nonfasting <5.10 mg/dL 2.98 LDL/HDL Ratio, Nonfasting <2.54 mg/dL 1.61 Hemoglobin A1C (%) Date Value 10/02/2022 7.3 06/27/2022 7.2 12/18/2021 7.4 06/15/2021 7.1 ) HISTORIES FAMILY HISTORY Problem Relation Age of Onset Diabetes Mother Hypertension Mother Lipids Mother Stroke Mother Ischemic Heart Disease Mother DVT Father Breast Cancer Maternal Aunt PAST MEDICAL HISTORY Diagnosis Date Arthritis Breast cancer (HCC) 02/18/2011 CORONARY ATHEROSCLER UNSPEC VESSEL 06/12/2009 CTS (carpal tunnel syndrome) Esophagitis, unspecified hiatal hernia, gastritis Essential hypertension, benign History of colon polyps History of percutaneous left heart catheterization 06/24/11 done at [facility] Malignant neoplasm of breast (female), unspecified site 1998 Breast cancer right OBESITY 12/16/2005 Osteoarthritis of right knee Osteopenia 05/21/2010 Paroxysmal SVT (supraventricular tachycardia) (HCC) Dr Marcelo Pure hypercholesterolemia TUBERCULIN TEST REACTION NO TBC 12/16/2005 Type II or unspecified type diabetes mellitus without mention of complication, not stated as uncontrolled Unspecified constipation Unspecified glaucoma(365.9) Glaucoma Low tension PAST SURGICAL HISTORY Procedure Laterality Date APPENDECTOMY BREAST BX NEEDLE CORE RIGHT 06/17/2008 U/S needle core bx right axilla BREAST SURGERY HX CMBND ANTERPOST COLPORRAPHY W/CYSTO 2004 Bladder and rectum repair COLON SURGERY HX COLONOSCOPY 2006 [facility] COLONOSCOPY 09/12/2014 no polyps, repeat due 2018 COLONOSCOPY & POLYPECTOMY 10/17/2011 diverticulosis with strictures, polyps; repeat due 2013; [facility] COLONOSCOPY FLX DX W/COLLJ SPEC WHEN PFRMD 09/11/2020 22 mm polyp, repeat in 1 year for surveillance COLONOSCOPY FLX DX W/COLLJ SPEC WHEN PFRMD 09/11/2020 Colonoscopy COLONOSCOPY FLX DX W/COLLJ SPEC WHEN PFRMD 09/17/2021 repeat in 3 years EGD TRANSORAL BIOPSY SINGLE/MULTIPLE 02/24/2007 Esophagitis,Hiatal hernia, Gastritis ESOPHAGOGASTRODUODENOSCOPY TRANSORAL DIAGNOSTIC 11/13/2016 EGD EYE SURGERY HX HEART CATHETERIZATION 2009 stent x 4 HEART SURGERY HX LAPS COLECTOMY PRTL W/COLOPXTSTMY LW ANAST 11/12/2011 lap low anterior resection sigmoid for diverticular disease LUMPECTOMY/RADIOTHERAPY DIAG MAMM/A10 1998 Right breast STEREOTACTIC CORE BIOPSY 06/11/2007 LEFT TONSILLECTOMY HX TOTAL ABDOMINAL HYSTERECT W/WO RMVL TUBE OVARY 1976 Hysterectomy, ANN No BSO VAGINAL HYSTERECTOMY Social History Tobacco Use Smoking status: Never Smokeless tobacco: Never Vaping Use Vaping Use: Never used Substance Use Topics Alcohol use: No Drug use: No ACTIVE PROBLEM LIST Tuberculin Test Reaction Essential Hypertension Hyperlipidemia Type 2 Diabetes Mellitus Without Complications (Hcc) GE REFLUX (GASTROESOPHAGEAL) Coronary Atherosclerosis Osteopenia Breast Cancer (Hcc) Paroxysmal SVT (supraventricular tachycardia) (HCC) Osteoarthritis of Right Knee group home current use of anticoagulant Persistent Atrial Fibrillation (Hcc) Nonrheumatic Mitral Valve Regurgitation History of Colon Polyps Current Outpatient Medications Medication Sig Dispense Refill verapamil ER (VERELAN PM) 300 mg CPCT Take 1 capsule by mouth daily at bedtime. 30 capsule 11 pravastatin (PRAVACHOL) 80 mg tablet Take 1 tablet by mouth once daily. 90 tablet 3 lisinopril (ZESTRIL, PRINIVIL) 40 mg tablet Take 0.5 tablets by mouth once daily. 90 tablet 3 nitroglycerin sublingual (NITROSTAT) 0.4 mg SL tablet Dissolve 1 tablet under the tongue as needed for chest pain. If no pain relief call 911. 25 Bottle of 25 3 apixaban (ELIQUIS) 5 mg tab(s) Take 1 tablet by mouth twice daily. 180 tablet 3 dulaglutide (TRULICITY) 3 mg/0.5 mL pen injector Inject 3 mg subcutaneously one time a week. 4 Each 5 insulin glargine (LANTUS SOLOSTAR, BASAGLAR KWIKPEN) 100 unit/mL (3 mL) Inject 20 Units subcutaneously daily at bedtime. Patient assistance med insulin needles, DISPOSABLE, (PEN NEEDLE) 31 gauge x 5/16 ndle Use as directed once daily as directed DM: yes Insulin: yes DX: E11.9 100 Each 3 cyanocobalamin (VITAMIN B-12) 1,000 mcg tab Take 1 tablet by mouth once daily. brimonidine (ALPHAGAN P) 0.15 % ophthalmic solution Use 1 Drop in both eyes three times daily. pyridoxine hcl(VITAMIN B-6 100 MG TAB) Take one(1) tablet daily. 0 CALCIUM + D 600 MG-200 UNIT TAB Take one(1) tablet daily. 0 No current facility-administered medications for this visit. COVID-19 VACCINE(1) Never done BP CONTROLLED (<130/80) Never done SHINGRIX VACCINE(2 of 3) due on 08/08/2011 DTAP,TDAP,TD(2 - Td or Tdap) due on 04/13/2017 ADVANCE DIRECTIVE DISCUSSION due on 11/02/2022 DEPRESSION ASSESSMENT due on 11/02/2022 DIABETIC FOOT EXAM due on 12/18/2022 EXAM: BP 166/82 Pulse 76 Temp 36.2 C (97.2 F) (Left Tympanic) Resp 16 Wt 63.5 kg (140 lb) SpO2 96% BMI 23.90 kg/m Repeat BP similar 168/90 General appearance: healthy, in no acute distress. Well nourished. Well groomed. Pleasant spirits. Respirations: regular, unlabored Color: pink to lips and nailbeds Skin: warm, dry, no unusual rashes or lesions Head: Normocephalic Eyes: sclerae and conjunctivae without injection or exudate, PERRLA, EOMI, corneal light reflex symmetric bilaterally Ears: TM's and ear canals are clear bilaterally with normal landmarks, no swelling or deformity external ear Nose/Sinuses: Nose patent. No turbinate swelling. No active exudate. Maxillary and frontal sinuses nontender to percussion. Oropharynx: Lips, mucosa, and tongue free from lesions. Teeth are in good repair. Gums without inflammation. Posterior pharynx no injection, o exudate. no tonsillar hypertrophy or injection. Neck: Neck supple, no cervical lymphadenopathy; thyroid without mass or tenderness. Carotids 2/4= without bruit. Thyroid without mass or tenderness. Chest: normally shaped, equal expansion with breaths. Lungs: Lungs clear to auscultation and percussion. No crackles or wheezes. Neuro: CN 2-12 tested and intact. Motor full upper and lower symmetric. Sensory intact distally to light touch. DTR's 0-1/4+ upper, 1/4+.Cerebellar intact finger to nose, heel to bagley. Chronic unsteadiness but able to walk independently. Romberg + with horizontal nystagmus on Di Hallpike on right. Ramos's attempted, difficult due to mobility and age. Nystagmus continued for at least 4-5 minutes and subsided. Given Zofran 4mg IM with improvement in nauseas and ASSESSMENT/PLAN: 1. Paroxysmal SVT (supraventricular tachycardia) (HCC) - ICD9: 427.0, ICD10: I47.1 (primary diagnosis) 2. Persistent atrial fibrillation (HCC) - ICD9: 427.31, ICD10: I48.19 3. Atherosclerosis of coronary artery of [place] heart without angina pectoris, unspecified vessel or lesion type - ICD9: 414.01, ICD10: I25.10 Stable without recent sx. 4. Essential hypertension - ICD9: 401.9, ICD10: I10 - poor control Recheck in 4 weeks. Suspect elevation r/t to vertigo - Goal of BP <130/80 5. Mixed hyperlipidemia - ICD9: 272.2, ICD10: E78.2 - good control - Continue current medication. - Encouraged following a low fat, low cholesterol diet. - Discussed the benefits of regular aerobic exercise and weight loss. 6. Nonrheumatic mitral valve regurgitation - ICD9: 424.0, ICD10: I34.0 Stabe 7. BPPV (benign paroxysmal positional vertigo), unspecified laterality - ICD9: 386.11, ICD10: H81.10 Educated on diagnosis and treatment. Educated on new medication administration, warnings and cautions, common side effects, anticipated duration or therapy, and instructions on cessation management to avoid risks if stops medication. Patient choice was discussed in shared decision making. - MECLIZINE 25MG TABLET - ONDANSETRON HCL (PF) 4 MG/2 ML INJECTION SOLUTION 8. Type 2 diabetes mellitus without complication, without long-term current use of insulin (HCC) - ICD9: 250.00, ICD10: E11.9 - Controlled - Continue current medications Talya Rodriguez PA-C documented in this encounter [facility] 11-27-2022 Miscellaneous Notes Pt called and is notified of providers message and instructions. Pt voices understanding. Pt schedules 12/25/22 with [place] nurse. Lisa Barber RN Stop current verapamil. Change to 300 mg a day. Bp check in one month Manual Readin/76 Pulse: 74 BP Zach average: 164/71 P: 71 Repeat BP Check: 169/69 P71 #1 157/71 P69 #2 158/77 P71 #3 165/68 P70 #4 173/ P71 #5 162/ P72 #6 Reason for blood pressure check - Medication adjustment Patient is: Taking medication as prescribed Yes Took medication today Yes If no, date medication last taken N/A Experiencing side effects No BP was normal at last appt 10/02/22. However, per TE on 10/03/22, her labs were abnormal so HCTZ was d/c. Tolerating medication change well. Denies any chest pain, shortness of breath, dizziness, or headaches. Daily caffeine use. No personal history of tobacco use; no current exposure. Alert and oriented. Pt has been identified by name and birthdate: Yes Allergies reviewed: Yes Latex allergy: no. Medication - prescribed and OTC reviewed and updated: Yes Do you need any prescription refills prior to your next visit: No Health Maintenance: Reviewed and not up to date and provider notified Patient advised that she would be contacted after review by PCP. Franca Atwood LPN documented in this encounter [facility] 11-27-2022 Note HNO ID: [id number] Author: Franca Atwood LPN Service: ? Author Type: ? Type: Progress Notes Filed: 11/27/2022 9:03 AM Note Text: Manual Readin/76 Pulse: 74 BP Zach average: 164/71 P: 71 Repeat BP Check: 169/69 P71 #1 157/71 P69 #2 158/77 P71 #3 165/68 P70 #4 173/ P71 #5 162/ P72 #6 Reason for blood pressure check - Medication adjustment Patient is: Taking medication as prescribed Yes Took medication today Yes If no, date medication last taken N/A Experiencing side effects No BP was normal at last appt 10/02/22. However, per TE on 10/03/22, her labs were abnormal so HCTZ was d/c. Tolerating medication change well. Denies any chest pain, shortness of breath, dizziness, or headaches. Daily caffeine use. No personal history of tobacco use; no current exposure. Alert and oriented. Pt has been identified by name and birthdate: Yes Allergies reviewed: Yes Latex allergy: no. Medication - prescribed and OTC reviewed and updated: Yes Do you need any prescription refills prior to your next visit: No Health Maintenance: Reviewed and not up to date and provider notified Patient advised that she would be contacted after review by PCP. Franca Atwood LPN [facility] 11-27-2022 History of Present illness Narrative Manual Readin/76 Pulse: 74 BP Zach average: 164/71 P: 71 Repeat BP Check: 169/69 P71 #1 157/71 P69 #2 158/77 P71 #3 165/68 P70 #4 173/67 P71 #5 162/71 P72 #6 Reason for blood pressure check - Medication adjustment Patient is: Taking medication as prescribed Yes Took medication today Yes If no, date medication last taken N/A Experiencing side effects No BP was normal at last appt 10/02/22. However, per TE on 10/03/22, her labs were abnormal so HCTZ was d/c. Tolerating medication change well. Denies any chest pain, shortness of breath, dizziness, or headaches. Daily caffeine use. No personal history of tobacco use; no current exposure. Alert and oriented. Pt has been identified by name and birthdate: Yes Allergies reviewed: Yes Latex allergy: no. Medication - prescribed and OTC reviewed and updated: Yes Do you need any prescription refills prior to your next visit: No Health Maintenance: Reviewed and not up to date and provider notified Patient advised that she would be contacted after review by PCP. Franca Atwood LPN documented in this encounter [facility] 11-17-2022 Miscellaneous Notes Patient has been identified by name and date of : Yes Requested Prescriptions Pending Prescriptions Disp Refills pravastatin (PRAVACHOL) 80 mg tablet 90 tablet 3 Sig: Take 1 tablet by mouth once daily. RX INSTRUCTIONS: Patient aware RX will be sent to pharmacy. No need to notify patient. Yas Liu MA Adan: 10/2022 Nov: 04/2023 Last refill: 11/2021 Patient has been identified by name and date of : Yes Last office visit in this department: 10/02/2022 RX INSTRUCTIONS: Patient aware RX will be sent to pharmacy. No need to notify patient. Patient phones requesting refills as follows: Requested Prescriptions Pending Prescriptions Disp Refills pravastatin (PRAVACHOL) 80 mg tablet 90 tablet 3 Sig: Take 1 tablet by mouth once daily. Please review and advise. Genet Choi documented in this encounter [facility] 11-11-2022 Miscellaneous Notes Pt called and is notified of providers message and instructions. Pt voices understanding. She states her BP this morning was 151/65. Pt was set up with BP check with [place] nurse on 11/20/22. Lisa Barber RN No although she was to do bp check already and has not done that. Patient has been off the HCTZ for about 1 month and had repeat labs drawn on 11/06/22. Is she to resume HCTZ? documented in this encounter [facility] 10-03-2022 Miscellaneous Notes Patient was notified and verbalized understanding Leonela Beckman Ma Sugars slightly higher. Watch the diet. Rest of labs ok. Calcium is borderline. Can be due to her hctz Lets stop it. Recheck labs and bp in one month documented in this encounter [facility] 10-02-2022 Instructions [place]aver[place] MD - 10/02/2022 9:28 AM EST documented in this encounter [facility] 10-02-2022 History of Present illness Narrative Patient presents with: Diabetes HPI: Patient presents today for office visit for 3 month follow up DM: Reports overall feeling well. Medication side effects: No. Home sugar check frequency/results:twice daily Hypoglycemic spells: No. Watching diet: trying. Unexpected weight loss: No. Polyuria, polydipsia: No. Vision Changes: No. Foot lesions or numbness or pain: No. HTN: Patient is compliant with meds Yes Monitors bp at home: yes once a week. Bp has been better since bp meds were adjusted at last ov. Denies side effects: Yes. Chest pain: No. Dyspnea: No. Edema: No. Palpitations: No. Syncope: No. Headache: No. Dizziness: No. HYPERLIPIDEMIA: Patient is taking medications: Yes. Patient is watching diet: Yes. Patient denies myalgias: Yes. Patient denies gi upset: Yes Still seeing Cardiology at [place]. No nitro. No unusual bleeding or bruising issues. Ongoing issues with constipation. Has tried everything OTC without much relief. Had c-scope of 09/17/21. Has used a lot of script but just once a day. Discussed adding a fiber supplement and something like miralax. Component Latest Ref Rng & Units 06/27/2022 Creatinine, Ur Random (UCRR) 20.0 - 300.0 mg/dL 71.2 Albumin, Urine Random mg/L <12.0 Albumin/Creat Ratio <30 mg/g <17 Hemoglobin A1C 4.3 - 5.6 % 7.2 (H) Estimated Average Glucose mg/dL 160 Calcium 8.5 - 10.2 mg/dL 10.5 (H) PTH, Intact 15 - 65 pg/mL 16 Vitamin D 25 Hydroxy 31.0 - 80.0 ng/mL 47.3 MEDICATIONS: Current Outpatient Medications Medication Sig hydroCHLOROthiazide (HYDRODIURIL, ESIDRIX) 12.5 mg capsule Take 1 capsule by mouth once daily. verapamil SR (CALAN SR, ISOPTIN SR) 240 mg CR tablet Take 1 tablet by mouth once daily. lisinopril (ZESTRIL, PRINIVIL) 40 mg tablet Take 0.5 tablets by mouth once daily. pravastatin (PRAVACHOL) 80 mg tablet Take 1 tablet by mouth once daily. apixaban (ELIQUIS) 5 mg tab(s) Take 1 tablet by mouth twice daily. dulaglutide (TRULICITY) 3 mg/0.5 mL pen injector Inject 3 mg subcutaneously one time a week. insulin glargine (LANTUS SOLOSTAR, BASAGLAR KWIKPEN) 100 unit/mL (3 mL) Inject 20 Units subcutaneously daily at bedtime. Patient assistance med cyanocobalamin (VITAMIN B-12) 1,000 mcg tab Take 1 tablet by mouth once daily. brimonidine (ALPHAGAN P) 0.15 % ophthalmic solution Use 1 Drop in both eyes three times daily. pyridoxine hcl(VITAMIN B-6 100 MG TAB) Take one(1) tablet daily. CALCIUM + D 600 MG-200 UNIT TAB Take one(1) tablet daily. nitroglycerin sublingual (NITROSTAT) 0.4 mg SL tablet Dissolve 1 tablet under the tongue as needed for chest pain. If no pain relief call 911. insulin needles, DISPOSABLE, (PEN NEEDLE) 31 gauge x 5/16 ndle Use as directed once daily as directed DM: yes Insulin: yes DX: E11.9 No current facility-administered medications for this visit. ALLERGIES: ALLERGIES Allergen Reactions Amoxicillin Diarrhea Fosamax [Alendronat* Other: See Comments myalgia Metformin Diarrhea With IR and ER forms Shellfish Diarrhea, Vomiting PAST MEDICAL HISTORY Diagnosis Date Arthritis Breast cancer (HCC) 02/18/2011 CORONARY ATHEROSCLER UNSPEC VESSEL 06/12/2009 CTS (carpal tunnel syndrome) Esophagitis, unspecified hiatal hernia, gastritis Essential hypertension, benign History of colon polyps History of percutaneous left heart catheterization 06/24/11 done at [facility] Malignant neoplasm of breast (female), unspecified site 1998 Breast cancer right OBESITY 12/16/2005 Osteoarthritis of right knee Osteopenia 05/21/2010 Paroxysmal SVT (supraventricular tachycardia) (HCC) Dr Marcelo Pure hypercholesterolemia TUBERCULIN TEST REACTION NO TBC 12/16/2005 Type II or unspecified type diabetes mellitus without mention of complication, not stated as uncontrolled Unspecified constipation Unspecified glaucoma(365.9) Glaucoma Low tension PAST SURGICAL HISTORY Procedure Laterality Date APPENDECTOMY BREAST BX NEEDLE CORE RIGHT 06/17/2008 U/S needle core bx right axilla BREAST SURGERY HX CMBND ANTERPOST COLPORRAPHY W/CYSTO 2004 Bladder and rectum repair COLON SURGERY HX COLONOSCOPY 2006 [facility] COLONOSCOPY 09/12/2014 no polyps, repeat due 2018 COLONOSCOPY & POLYPECTOMY 10/17/2011 diverticulosis with strictures, polyps; repeat due 2013; [facility] COLONOSCOPY FLX DX W/COLLJ SPEC WHEN PFRMD 09/11/2020 22 mm polyp, repeat in 1 year for surveillance COLONOSCOPY FLX DX W/COLLJ SPEC WHEN PFRMD 09/11/2020 Colonoscopy COLONOSCOPY FLX DX W/COLLJ SPEC WHEN PFRMD 09/17/2021 repeat in 3 years EGD TRANSORAL BIOPSY SINGLE/MULTIPLE 02/24/2007 Esophagitis,Hiatal hernia, Gastritis ESOPHAGOGASTRODUODENOSCOPY TRANSORAL DIAGNOSTIC 11/13/2016 EGD EYE SURGERY HX HEART CATHETERIZATION 2009 stent x 4 HEART SURGERY HX LAPS COLECTOMY PRTL W/COLOPXTSTMY LW ANAST 11/12/2011 lap low anterior resection sigmoid for diverticular disease LUMPECTOMY/RADIOTHERAPY DIAG MAMM/A10 1998 Right breast STEREOTACTIC CORE BIOPSY 06/11/2007 LEFT TONSILLECTOMY HX TOTAL ABDOMINAL HYSTERECT W/WO RMVL TUBE OVARY 1976 Hysterectomy, ANN No BSO VAGINAL HYSTERECTOMY FAMILY HISTORY Problem Relation Age of Onset Diabetes Mother Hypertension Mother Lipids Mother Stroke Mother Ischemic Heart Disease Mother DVT Father Breast Cancer Maternal Aunt Social History Tobacco Use Smoking status: Never Smokeless tobacco: Never Vaping Use Vaping Use: Never used Substance Use Topics Alcohol use: No Drug use: No Reviewed current medications, allergies, past medical history, surgical history, family history and social history today. REVIEW OF SYSTEMS No bloody or black stools. All other reviewed and negative other than HPI. HEALTH MAINTENANCE: Reviewed health maintenance issues today and recommended the following in detail. COVID-19 VACCINE(1) Never done HEPATITIS C SCREENING Never done SHINGRIX VACCINE(2 of 3) due on 08/08/2011 DTAP,TDAP,TD(2 - Td or Tdap) due on 04/13/2017 ADVANCE DIRECTIVE DISCUSSION-discussed adding a dpoa or living will. DEPRESSION ASSESSMENT Never done LDL CHOLESTEROL due on 06/15/2022 VITALS: BP 126/72 Pulse 74 Wt 62.1 kg (137 lb) SpO2 99% BMI 23.39 kg/m Last 4 Encounter Wt Readings: Date: Wt: 06/27/2022 60.3 kg (133 lb) 12/18/2021 63 kg (139 lb) 08/26/2021 65 kg (143 lb 3.2 oz) 06/17/2021 64.4 kg (142 lb) PHYSICAL EXAMINATION: General appearance: Well appearing, alert, in no acute distress, well-hydrated, well nourished. Skin: Skin color, texture, turgor normal, no suspicious rashes or lesions Head: Normocephalic, no masses, lesions, tenderness or abnormalities Neck: Supple, no adenopathy; thyroid symmetric, normal size, no bruits Lungs: Lungs clear to auscultation. No wheezing, rhonchi, rales Heart: RRR without murmur, gallop, or rubs. No ectopy Abdomen: Normal abdominal exam, Abdomen soft, non-tender. Bowel sounds normal. No masses, organomegaly Extremities: No deformities, edema, skin discoloration, clubbing or cyanosis. Good capillary refill. Musculoskeletal: No joint swelling, deformity, or tenderness Peripheral pulses: Normal Neuro: Negative. ASSESSMENT/PLAN: 1. Atherosclerosis of coronary artery of [place] heart without angina pectoris, unspecified vessel or lesion type - ICD9: 414.01, ICD10: I25.10 (primary diagnosis) - continue meds. Call if any issues. 2. Essential hypertension - ICD9: 401.9, ICD10: I10 - good control - Continue current medication(s) - Goal of BP <130/80 3. Mixed hyperlipidemia - ICD9: 272.2, ICD10: E78.2 - good control - Continue current medication. 4. Persistent atrial fibrillation (HCC) - ICD9: 427.31, ICD10: I48.19 - stable on meds. 5. Paroxysmal SVT (supraventricular tachycardia) (HCC) - ICD9: 427.0, ICD10: I47.1 6. Nonrheumatic mitral valve regurgitation - ICD9: 424.0, ICD10: I34.0 - stable. 7. Gastroesophageal reflux disease without esophagitis - ICD9: 530.81, ICD10: K21.9 - call if any issues. 8. History of colon polyps - ICD9: V12.72, ICD10: Z86.010 - due for colonoscopy again in two years. 9. Type 2 diabetes mellitus without complication, without long-term current use of insulin (HCC) - ICD9: 250.00, ICD10: E11.9 - call if any issues. - COMP METABOLIC PANEL - LIPID PANEL, NONFASTING - CBC + DIFF - HGB A1C 10. Malignant neoplasm of female breast, unspecified estrogen receptor status, unspecified laterality, unspecified site of breast (HCC) - ICD9: 174.9, ICD10: C50.919 - call if an issues. 11. group home current use of anticoagulant - ICD9: V58.61, ICD10: Z79.01 - call if any issues. 12. Osteopenia, unspecified location - ICD9: 733.90, ICD10: M85.80 - just did bone density. 13. Hypercalcemia - ICD9: 275.42, ICD10: E83.52 - recheck labs. - CALCIUM IONIZED BLOOD - PTH INTACT BLD 14. Need for hepatitis C screening test - ICD9: V73.89, ICD10: Z11.59 - HEP C AB IA W/CONF SCRN [place] RTO in six months and prn. documented in this encounter [facility] 09-16-2022 Miscellaneous Notes Patient has been identified by name and date of : Yes Requested Prescriptions Pending Prescriptions Disp Refills hydroCHLOROthiazide (HYDRODIURIL, ESIDRIX) 12.5 mg capsule 90 capsule 1 Sig: Take 1 capsule by mouth once daily. RX INSTRUCTIONS: Patient aware RX will be sent to pharmacy. No need to notify patient. Griselda Farley documented in this encounter [facility] 07-18-2022 Miscellaneous Notes Pt called and is notified of providers message. Pt voices understanding. Lisa Barber RN Called and left a voicemail for the Patient to call back and ask for a nurse to receive the providers message. Lisa Barber RN Bp is ok. Manual Readin/70 Pulse: 75 BP Zach average: 113/68 P: 74 Repeat BP Check: 128/72 P76 #1 115/70 P73 #2 110/66 P74 #3 114/67 P74 #4 112/70 P72 #5 99/60 P73 #6 Reason for blood pressure check - Medication adjustment Patient is: Taking medication as prescribed Yes Took medication today Yes If no, date medication last taken N/A Experiencing side effects No BP was low at last appt 06/27/22. Lisinopril was decreased to 20mg daily. Tolerating medication change well. Denies any chest pain, shortness of breath, dizziness, or headaches. Occasional caffeine use. No personal history of tobacco use; no current exposure. Alert and oriented. Pt has been identified by name and birthdate: Yes Allergies reviewed: Yes Latex allergy: no. Medication - prescribed and OTC reviewed and updated: Yes Do you need any prescription refills prior to your next visit: No Health Maintenance: Reviewed and not up to date and provider notified Patient advised to continue with current medications and would be contacted if any further instructions after review by PCP. Franca Atwood LPN documented in this encounter [facility] 07-17-2022 History of Present illness Narrative Manual Readin/70 Pulse: 75 BP Zach average: 113/68 P: 74 Repeat BP Check: 128/72 P76 #1 115/70 P73 #2 110/66 P74 #3 114/67 P74 #4 112/70 P72 #5 99/60 P73 #6 Reason for blood pressure check - Medication adjustment Patient is: Taking medication as prescribed Yes Took medication today Yes If no, date medication last taken N/A Experiencing side effects No BP was low at last appt 06/27/22. Lisinopril was decreased to 20mg daily. Tolerating medication change well. Denies any chest pain, shortness of breath, dizziness, or headaches. Occasional caffeine use. No personal history of tobacco use; no current exposure. Alert and oriented. Pt has been identified by name and birthdate: Yes Allergies reviewed: Yes Latex allergy: no. Medication - prescribed and OTC reviewed and updated: Yes Do you need any prescription refills prior to your next visit: No Health Maintenance: Reviewed and not up to date and provider notified Patient advised to continue with current medications and would be contacted if any further instructions after review by PCP. Franca Atwood LPN documented in this encounter [facility] 06-27-2022 Instructions Talya Rodriguez PA-C - 06/27/2022 11:36 AM EDT Cut Lisinopril in half = 20mg daily instead of 40mg Push fluids, eat a little salt documented in this encounter [facility] 06-27-2022 History of Present illness Narrative Images from the original note were not included. 77 year old female with c/o here for follow up Doing well. 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 Gilliland in 06/24/2011 heart catheterization: LM clear, LAD 20 to 30% proximal stenosis with stents patent, mid LAD 40 to 50% stenosis. LCx and RCA noted to be free from disease. EF 55%, mild to moderate MVR. 12/2010 myocardial perfusion stress demonstrate a small cyst fixed defect within the inferior apical wall compatible with age-indeterminate infarction, global wall motion was preserved with LVEF of 70% 05/11/2009 [facility] transthoracic echo: LV size plus LV SF normal, EF 60%, trace TR Current meds: Apixaban 5 mg twice daily HCTZ 12.5 mg daily Lisinopril 40 mg once daily pravastatin 80 mg daily Verapamil SR 240 mg 1 tablet daily NTG 0.4 mg sublingual as needed Use of NTG: No Chest pain, arm, jaw pain, neck, or upper back pain suggestive of angina: No. SOB: No Dyspnea with exertion: No orthopnea: No racing or irregular heartbeats: No palpitations: No syncopal sx: No Unexplainable fatigue No Leg swelling: No Nausea: No diaphoresis: No Heartburn: No Claudication: No Smoking: No Following Low cholesterol, high fiber diet? Yes If on statin: muscle aches? No If on statin: GI sx or diarrhea? No Additional history none. Type 2 diabetes mellitus without complication, without long-term current use of insulin (hcc) Obesity without serious comorbidity, unspecified classification, unspecified obesity type Diabetes Mellitus Type 2: Current medications: Dulaglutide 3 mg subcu weekly Insulin glargine 20 units daily at bedtime Taking medication as directed consistently? Yes Medical Issues / Complications: hypertension, hyperlipidemia, and cardiovascular disease Checking blood sugars at home? Yes. Morning blood sugars Watching diet? Yes Physical Activity: Regular Hypoglycemic spells? No Any visual disturbance? No Chest pain? No New numbness, tingling or loss of sensation? No Any recent foot problems, sores or rashes? No Any recent or sudden weight loss? No Change in urination? No. If yes: Any recent illness? No Last eye exam: up to date. Last foot exam: up to date. HBA1C: Hemoglobin A1C (%) Date Value 12/18/2021 7.4 06/15/2021 7.1 ) CMP: Glucose 98 12/18/2021 BUN 13 12/18/2021 Creatinine 0.74 12/18/2021 Sodium 139 12/18/2021 Potassium 3.8 12/18/2021 Chloride 99 12/18/2021 CO2 28 12/18/2021 Protein, Total 7.0 06/15/2021 Albumin 4.1 06/15/2021 Calcium 10.4 12/18/2021 Alkaline Phosphatase 83 06/15/2021 Bilirubin, Total 0.3 06/15/2021 AST 25 06/15/2021 ALT 18 06/15/2021 Last 2 Encounter Wt Readings: Date: Wt: 12/18/2021 63 kg (139 lb) 08/26/2021 65 kg (143 lb 3.2 oz) Component Latest Ref Rng & Units 03/17/2019 12/18/2021 Creatinine, Ur Random (UCRR) 20 - 300 mg/dL 21.1 61.7 Albumin, Urine Random mg/L <12.0 <12.0 Albumin/Creat Ratio <30 mg/g Not calculated Not calculated Malignant neoplasm of female breast, unspecified estrogen receptor status, unspecified laterality, unspecified site of breast (hcc) 05/30/2022 mammogram normal Gastroesophageal reflux disease without esophagitis Benign neoplasm of colon, unspecified part of colon Constipation, unspecified constipation type Current medication:none. Current symptoms: none. Last Mg level if on PPI chronically: yes. Heartburn is controlled: Yes. Dysphagia: No. Bloody or black stools: normal to constipated, 3 times a week. . Bowel changes: No. Last EGD and/or colonoscopy: 09/17/2021. Colonoscopy: 3 polyps: Colon, transverse, polyps, biopsy Fragments of tubular adenoma and sessile serrated polyp. 3 year follow up Osteopenia, unspecified location 05/07/2022 PMD: Osteopenia right and left hip; T-scores: LS -0.4, LH -0.7, LFN -1.1, Rh -1.2, R FN -1.7. Primary osteoarthritis of right knee Managing well. HISTORIES FAMILY HISTORY Problem Relation Age of Onset Diabetes Mother Hypertension Mother Lipids Mother Stroke Mother Ischemic Heart Disease Mother DVT Father Breast Cancer Maternal Aunt PAST MEDICAL HISTORY Diagnosis Date Arthritis Breast cancer (HCC) 02/18/2011 CORONARY ATHEROSCLER UNSPEC VESSEL 06/12/2009 CTS (carpal tunnel syndrome) Esophagitis, unspecified hiatal hernia, gastritis Essential hypertension, benign History of colon polyps History of percutaneous left heart catheterization 06/24/11 done at [facility] Malignant neoplasm of breast (female), unspecified site 1998 Breast cancer right OBESITY 12/16/2005 Osteoarthritis of right knee Osteopenia 05/21/2010 Paroxysmal SVT (supraventricular tachycardia) (HCC) Dr Marcelo Pure hypercholesterolemia TUBERCULIN TEST REACTION NO TBC 12/16/2005 Type II or unspecified type diabetes mellitus without mention of complication, not stated as uncontrolled Unspecified constipation Unspecified glaucoma(365.9) Glaucoma Low tension PAST SURGICAL HISTORY Procedure Laterality Date APPENDECTOMY BREAST BX NEEDLE CORE RIGHT 06/17/2008 U/S needle core bx right axilla BREAST SURGERY HX CMBND ANTERPOST COLPORRAPHY W/CYSTO 2005 Bladder and rectum repair COLON SURGERY HX COLONOSCOPY 2006 [facility] COLONOSCOPY 09/12/2014 no polyps, repeat due 2018 COLONOSCOPY & POLYPECTOMY 10/17/2011 diverticulosis with strictures, polyps; repeat due 2013; [facility] COLONOSCOPY FLX DX W/COLLJ SPEC WHEN PFRMD 09/11/2020 22 mm polyp, repeat in 1 year for surveillance COLONOSCOPY FLX DX W/COLLJ SPEC WHEN PFRMD 09/11/2020 Colonoscopy COLONOSCOPY FLX DX W/COLLJ SPEC WHEN PFRMD 09/17/2021 repeat in 3 years EGD TRANSORAL BIOPSY SINGLE/MULTIPLE 02/24/2007 Esophagitis,Hiatal hernia, Gastritis ESOPHAGOGASTRODUODENOSCOPY TRANSORAL DIAGNOSTIC 11/13/2016 EGD EYE SURGERY HX HEART CATHETERIZATION 2009 stent x 4 HEART SURGERY HX LAPS COLECTOMY PRTL W/COLOPXTSTMY LW ANAST 11/12/2011 lap low anterior resection sigmoid for diverticular disease LUMPECTOMY/RADIOTHERAPY DIAG MAMM/A10 1998 Right breast STEREOTACTIC CORE BIOPSY 06/11/2007 LEFT TONSILLECTOMY HX TOTAL ABDOMINAL HYSTERECT W/WO RMVL TUBE OVARY 1976 Hysterectomy, ANN No BSO VAGINAL HYSTERECTOMY Social History Tobacco Use Smoking status: Never Smokeless tobacco: Never Vaping Use Vaping Use: Never used Substance Use Topics Alcohol use: No Drug use: No ACTIVE PROBLEM LIST Tuberculin Test Reaction Essential Hypertension Hyperlipidemia Type 2 Diabetes Mellitus Without Complications (Hcc) OBESITY GE REFLUX (GASTROESOPHAGEAL) Coronary Atherosclerosis Other Specified Cardiac Dysrhythmias(427.89) Osteopenia Breast Cancer (Hcc) Paroxysmal SVT (supraventricular tachycardia) (HCC) Osteoarthritis of Right Knee Constipation Benign Neoplasm of Colon 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 90 capsule 1 lisinopril (ZESTRIL, PRINIVIL) 40 mg tablet Take 1 tablet by mouth once daily. 90 tablet 3 nitroglycerin sublingual (NITROSTAT) 0.4 mg SL tablet Dissolve 1 tablet under the tongue as needed for chest pain. If no pain relief call 911. 25 Bottle of 25 3 pravastatin (PRAVACHOL) 80 mg tablet Take 1 tablet by mouth once daily. 90 tablet 3 apixaban (ELIQUIS) 5 mg tab(s) Take 1 tablet by mouth twice daily. 180 tablet 3 dulaglutide (TRULICITY) 3 mg/0.5 mL pen injector Inject 3 mg subcutaneously one time a week. 4 Each 5 verapamil SR (CALAN SR, ISOPTIN SR) 240 mg CR tablet Take 1 tablet by mouth once daily. 30 tablet 11 insulin glargine (LANTUS SOLOSTAR, BASAGLAR KWIKPEN) 100 unit/mL (3 mL) Inject 20 Units subcutaneously daily at bedtime. Patient assistance med insulin needles, DISPOSABLE, (PEN NEEDLE) 31 gauge x 5/16 ndle Use as directed once daily as directed DM: yes Insulin: yes DX: E11.9 100 Each 3 cyanocobalamin (VITAMIN B-12) 1,000 mcg tab Take 1 tablet by mouth once daily. brimonidine (ALPHAGAN P) 0.15 % ophthalmic solution Use 1 Drop in both eyes three times daily. pyridoxine hcl(VITAMIN B-6 100 MG TAB) Take one(1) tablet daily. 0 CALCIUM + D 600 MG-200 UNIT TAB Take one(1) tablet daily. 0 No current facility-administered medications for this visit. COVID-19 VACCINE(1) Never done HEPATITIS C SCREENING Never done SHINGRIX VACCINE(2 of 3) due on 08/08/2011 DTAP,TDAP,TD(2 - Td or Tdap) due on 04/13/2017 DEPRESSION SCREENING due on 09/13/2019 ADVANCE DIRECTIVE DISCUSSION Never done HBA1C due on 06/17/2022 DILATED RETINAL EXAM due on 06/13/2022 LDL CHOLESTEROL due on 06/15/2022 EXAM: BP (!) 78/40 (BP Site: Left Arm, BP Position: Sitting, BP Cuff Size: Pediatric) Pulse 78 Resp 14 Wt 60.3 kg (133 lb) SpO2 99% BMI 22.71 kg/m BP w/Orthostatic Vitals Date and Time Orthostatic BP Orthostatic Pulse BP Pulse BP Position BP Site BP Cuff Size 06/27/22 1150 89/57 82 -- -- Standing Left Arm Small Adult 06/27/22 1143 81/53 70 -- -- Sitting Left Arm Small Adult 06/27/22 1139 96/50 64 -- -- Supine Left Arm Small Adult 06/27/22 1132 -- -- 78/40 -- Sitting Left Arm Pediatric 06/27/22 1115 -- -- 72/47 -- -- -- -- 06/27/22 1107 -- -- 76/44 78 -- -- -- Peak Flow Date and Time PF Resp 06/27/22 1107 -- 14 Pleasant well-appearing slender adult woman who has noticeable weight loss, in no acute distress. Alert and oriented all spheres. Normal affect and cognition. Speech normal. No deficits to learning or comprehension. Skin warm, dry, pink to lips and nailbeds. Normal turgor. Respirations regular and unlabored. HEENT: NCAT. No scleral icterus or conjunctival injection. TM's clear. Nose and oropharynx free from injection or lesion. Oral membranes moist and pink. No cervical lymph nodes. Thyroid non-tender, no masses, or enlargement. Carotids pulses 2+/4+ without bruits. No JVD with HOB at 30 degrees. Chest is normal shape. Lungs are clear to all scott with good air exchange through out. HRRR without murmur or gallop. No lifts, heaves, or rubs. Extrem: no clubbing or cyanosis. Edema: none. Extremities are warm and pink with prompt capillary refill. ASSESSMENT/PLAN: 1. Nonrheumatic mitral valve regurgitation - ICD9: 424.0, ICD10: I34.0 (primary diagnosis) Follows with [facility] cardiology, stable 2. Persistent atrial fibrillation (HCC) - ICD9: 427.31, ICD10: I48.19 Controlled rate. Low BP today without sx. - COMP METABOLIC PANEL - ECG COMPLETE 3. Paroxysmal SVT (supraventricular tachycardia) (HCC) - ICD9: 427.0, ICD10: I47.1 controlled 4. group home current use of anticoagulant - ICD9: V58.61, ICD10: Z79.01 5. Atherosclerosis of coronary artery of [place] heart without angina pectoris, unspecified vessel or lesion type - ICD9: 414.01, ICD10: I25.10 As above 6. Essential hypertension - ICD9: 401.9, ICD10: I10 - Hypotension on multiple BPs and orthostatic Bps - Decrease lisinopril (Zestril/Prinivil) to 20mg daily, recheck in 2 weeks NV BP - Recommended regular aerobic exercise. - Recommend home blood pressure monitoring, to bring results in on next visit - Goal of BP <130/80 - COMP METABOLIC PANEL - LISINOPRIL 40 MG TABLET 7. Mixed hyperlipidemia - ICD9: 272.2, ICD10: E78.2 - good control - Continue current medication. - COMP METABOLIC PANEL 8. Type 2 diabetes mellitus without complication, without long-term current use of insulin (HCC) - ICD9: 250.00, ICD10: E11.9 Controlled. - Continue current medications - HGB A1C 9. Obesity without serious comorbidity, unspecified classification, unspecified obesity type - ICD9: 278.00, ICD10: E66.9 Weight decreasing Will follow: likely effect of Trulicity. Body mass index is 22.71 kg/m . Don't really want it lower. Will monitor. 10. Malignant neoplasm of female breast, unspecified estrogen receptor status, unspecified laterality, unspecified site of breast (HCC) - ICD9: 174.9, ICD10: C50.919 Mammo up to date and negative 11. Benign neoplasm of colon, unspecified part of colon - ICD9: 211.3, ICD10: D12.6 Surveillance 2023 12. Constipation, unspecified constipation type - ICD9: 564.00, ICD10: K59.00 Controlled to patient satisfaction Encouraged plenty of water, fiber 13. Osteopenia, unspecified location - ICD9: 733.90, ICD10: M85.80 stable 14. Primary osteoarthritis of right knee - ICD9: 715.16, ICD10: M17.11 Managing without treatment 15. Gastroesophageal reflux disease without esophagitis - ICD9: 530.81, ICD10: K21.9 Continue medicaiton 16. Other specified hypotension - ICD9: 458.8, ICD10: I95.89 - ECG COMPLETE 17. Serum calcium elevated - ICD9: 275.42, ICD10: E83.52 Labs were overlooked: reorder - VITAMIN D 25 HYDROXY - PTH INTACT BLD - COMP METABOLIC PANEL Talya Rodriguez PA-C documented in this encounter [facility] 05-30-2022 Miscellaneous Notes May 30, 2022 PID: [id number] Kellie Dozier [address] [place] [address] Dear Ms. Dozier, We are pleased to inform you that the results of your recent breast imaging exam on 05/30/2022 are normal. Early detection of cancer is very important. We also understand recommendations regarding breast cancer screening are controversial. Please discuss with your primary care provider which strategy is best for you and whether a mammogram is right for you. Your imaging studies and report will be kept on file at [facility] as part of your permanent medical record and are available for your continuing care. Thank you for allowing us to help in meeting your health care needs. Sincerely, Dr. Ramirez Interpreting Radiologist [facility] (Normal over 40) documented in this encounter [facility] 05-30-2022 History of Present illness Narrative Radiology Service Progress Note PATIENT NAME: Kellie Dozier DATE OF SERVICE: May 30, 2022 TIME: 9:21 AM PATIENT IDENTITY VERIFICATION COMPLETED USING TWO (2) IDENTIFIERS: Name and Date of confirmed by patient verbally. FALL SCREENING: Has the patient had 2 falls in the last year or 1 fall with injury or currently using an Ambulatory Assistive Device (Walker, Cane, Wheelchair, Crutches, etc.)? No PATIENT GENDER DATA: Female. status: : No status: NO. PATIENT RELEVANT IMPLANT DATA REVIEWED: Not Applicable RADIOLOGY DEPARTMENT: Mammography PERIPHERAL IV DATA: Not applicable SIGNED BY: RT Lolis(R) May 30, 2022 9:21 AM documented in this encounter [facility] 05-07-2022 History of Present illness Narrative Radiology Service Progress Note PATIENT NAME: Kellie Dozier DATE OF SERVICE: May 07, 2022 TIME: 9:31 AM PATIENT IDENTITY VERIFICATION COMPLETED USING TWO (2) IDENTIFIERS: Name and Date of confirmed by patient verbally. FALL SCREENING: Has the patient had 2 falls in the last year or 1 fall with injury or currently using an Ambulatory Assistive Device (Walker, Cane, Wheelchair, Crutches, etc.)? No PATIENT GENDER DATA: Female. status: : No status: NO. PATIENT RELEVANT IMPLANT DATA REVIEWED: Not Applicable RADIOLOGY DEPARTMENT: Bone Density PERIPHERAL IV DATA: Not applicable SIGNED BY: RT Reta(R) May 07, 2022 9:31 AM documented in this encounter [facility] 04-22-2022 Miscellaneous Notes Patient notified. Verbalized understanding. ordered Patient calls and is asking if provider can write an order for Mammogram. Please review and advise, Nicole Arriaga RN documented in this encounter [facility] 03-27-2022 Miscellaneous Notes Rambo now has received fax that states [employer] did receive application. Rambo spoke with patient and she notes that company told her they were missing part of her portion of application. Rambo will refax forms to [facility] for Eliquis. Rambo called Merlin [employer] to check and see if patient Eliquis application had been received. Rep states that no, it has not been received. Rambo will work on re-faxing forms. Patient called Rambo in regards to her prescription assistance for Eliquis. Sw noted [employer] application had been sent to company on 03/19/22 for Eliquis. Rambo will check and make sure that it is being processed. Rambo noted that Dr. Kate burton received 3 day [employer] application approval for patient basaglar and trulicity. documented in this encounter [facility] 03-25-2022 Miscellaneous Notes Fax received from [facility]. Pt is approved for Trulicity and basaglar for 12 months. Eli Thrasher Ma documented in this encounter [facility] 03-19-2022 Miscellaneous Notes Faxed forms. Will return to . On Dr Taveras's desk to sign. Clinical portion completed. [employer]-Eliquis and [employer]-Trulicity and Basaglar patient assistance forms. Rambo will take forms to Dr. Kate burton to complete prescriptions on forms and then fax forms to companies. [employer] fax#[phone] [employer] fax#[phone] documented in this encounter [facility] 02-25-2022 Miscellaneous Notes Patient called Rambo to request that Sw mail her [facility] P[facility] application. Sw noted that she would patient the application forms. Patient reports that she will work on forms and send back to Dr. Taveras office for completion. documented in this encounter [facility] 02-13-2022 Miscellaneous Notes .Patient has been identified by name and date of : Yes Pending Prescriptions Disp Refills LISINOPRIL 40 MG TABLET 90 tablet 3 Sig: Take 1 tablet by mouth once daily. SHERLY: No RX INSTRUCTIONS: Patient aware RX will be sent to pharmacy. No need to notify patient. Racquel Haddad Pss documented in this encounter [facility] documented as of this encounter (statuses as of 02/13/2022) [facility] History of Past illness Narrative* Problem Noted Date Resolved Date Tendonitis, Achilles, left 03/26/201806/04 Tendonitis, Achilles, right 03/26/201812/2017 Unspecified constipation 10/17/2011 019 Abnormal mammogram, unspecified 05/17/2007 02/18/2011 Herpes zoster with other ner vous system complications(053.19) 03/09/2007 03/05/2018 HIATAL HERNIA 02/24/2007 02/18/2011 GASTRITIS ANTRAL( W/O Hemorrhage) 02/24/2007 02/18/2011 Esophagitis, unspecified 02/24/2007 011 CTS (carpal tunnel syndrome) 12/2017 documented as of this encounter (statuses as of 02/25/2022) [facility] History of Past illness Narrative* Problem Noted Date Resolved Date Tendonitis, Achilles, left 03/26/201806/04 Tendonitis, Achilles, right 03/26/20180 12/2017 Unspecified constipation 10/17/2011 019 Abnormal mammogram, unspecified 05/17/2007 02/18/2011 Herpes zoster with other ner vous system complications(053.19) 03/09/2007 03/05/2018 HIATAL HERNIA 02/24/2007 02/18/2011 GASTRITIS ANTRAL( W/O Hemorrhage) 02/24/2007 02/18/2011 Esophagitis, unspecified 02/24/2007 011 CTS (carpal tunnel syndrome) 12/2017 documented as of this encounter (statuses as of 03/19/2022) [facility] of Past illness Narrative* Problem Noted Date Resolved Date Tendonitis, Achilles, left 03/26/201806/04 Tendonitis, Achilles, right 03/26/2018 080 12/2017 Unspecified constipation 10/17/2011 019 Abnormal mammogram, unspecified 05/17/2007 02/18/2011 Herpes zoster with other ner vous system complications(053.19) 03/09/2007 03/05/2018 HIATAL HERNIA 02/24/2007 02/18/2011 GASTRITIS ANTRAL( W/O Hemorrhage) 02/24/2007 02/18/2011 Esophagitis, unspecified 02/24/2007 011 CTS (carpal tunnel syndrome) 12/2017 documented as of this encounter (statuses as of 03/25/2022) [facility] of Past illness Narrative* Problem Noted Date Resolved Date Tendonitis, Achilles, left 03/26/201806/04 Tendonitis, Achilles, right 03/26/2018 080 12/2017 Unspecified constipation 10/17/2011 019 Abnormal mammogram, unspecified 05/17/2007 02/18/2011 Herpes zoster with other ner vous system complications(053.19) 03/09/2007 03/05/2018 HIATAL HERNIA 02/24/2007 02/18/2011 GASTRITIS ANTRAL( W/O Hemorrhage) 02/24/2007 02/18/2011 Esophagitis, unspecified 02/24/2007 011 CTS (carpal tunnel syndrome) 12/2017 documented as of this encounter (statuses as of 03/27/2022) [facility] of [facility] illness Narrative* Problem Noted Date Resolved Date Tendonitis, Achilles, left 03/26/201806/04 Tendonitis, Achilles, right 03/26/2018 080 12/2017 Unspecified constipation 10/17/2011 019 Abnormal mammogram, unspecified 05/17/2007 02/18/2011 Herpes zoster with other ner vous system complications(053.19) 03/09/2007 03/05/2018 HIATAL HERNIA 02/24/2007 02/18/2011 GASTRITIS ANTRAL( W/O Hemorrhage) 02/24/2007 02/18/2011 Esophagitis, unspecified 02/24/2007 011 CTS (carpal tunnel syndrome) 12/2017 documented as of this encounter (statuses as of 04/22/2022) [facility] of [facility] Narrative* Problem Noted Date Resolved Date Tendonitis, Achilles, left 03/26/201806/04 Tendonitis, Achilles, right 03/26/20180 12/2017 Unspecified constipation 10/17/2011 019 Abnormal mammogram, unspecified 05/17/2007 02/18/2011 Herpes zoster with other ner vous system complications(053.19) 03/09/2007 03/05/2018 HIATAL HERNIA 02/24/2007 02/18/2011 GASTRITIS ANTRAL( W/O Hemorrhage) 02/24/2007 02/18/2011 Esophagitis, unspecified 02/24/2007 011 CTS (carpal tunnel syndrome) 12/2017 documented as of this encounter (statuses as of 05/08/2022) [facility] Narrative* Problem Noted Date Resolved Date Tendonitis, Achilles, left 03/26/201806/04 Tendonitis, Achilles, right 03/26/2018 080 12/2017 Unspecified constipation 10/17/2011 019 Abnormal mammogram, unspecified 05/17/2007 02/18/2011 Herpes zoster with other ner vous system complications(053.19) 03/09/2007 03/05/2018 HIATAL HERNIA 02/24/2007 02/18/2011 GASTRITIS ANTRAL( W/O Hemorrhage) 02/24/2007 02/18/2011 Esophagitis, unspecified 02/24/2007 011 CTS (carpal tunnel syndrome) 12/2017 documented as of this encounter (statuses as of 05/31/2022) [facility] Narrative* Problem Noted Date Resolved Date Tendonitis, Achilles, left 03/26/201806/04 Tendonitis, Achilles, right 03/26/2018 08/0 12/2017 Unspecified constipation 10/17/2011 019 Abnormal mammogram, unspecified 05/17/2007 02/18/2011 Herpes zoster with other ner vous system complications(053.19) 03/09/2007 03/05/2018 HIATAL HERNIA 02/24/2007 02/18/2011 GASTRITIS ANTRAL( W/O Hemorrhage) 02/24/2007 02/18/2011 Esophagitis, unspecified 02/24/2007 011 CTS (carpal tunnel syndrome) 12/2017 documented as of this encounter (statuses as of 06/03/2022) [facility] Narrative* Problem Noted Date Resolved Date Tendonitis, Achilles, left 03/26/201806/04 Tendonitis, Achilles, right 03/26/2018 08/0 12/2017 Unspecified constipation 10/17/2011 019 Abnormal mammogram, unspecified 05/17/2007 02/18/2011 Herpes zoster with other ner vous system complications(053.19) 03/09/2007 03/05/2018 HIATAL HERNIA 02/24/2007 02/18/2011 GASTRITIS ANTRAL( W/O Hemorrhage) 02/24/2007 02/18/2011 Esophagitis, unspecified 02/24/2007 011 CTS (carpal tunnel syndrome) 12/2017 documented as of this encounter (statuses as of 06/27/2022) [facility] Narrative* Problem Noted Date Resolved Date Tendonitis, Achilles, left 03/26/201806/04 Tendonitis, Achilles, right 03/26/2018 08/0 12/2017 Unspecified constipation 10/17/2011 019 Abnormal mammogram, unspecified 05/17/2007 02/18/2011 Herpes zoster with other ner vous system complications(053.19) 03/09/2007 03/05/2018 HIATAL HERNIA 02/24/2007 02/18/2011 GASTRITIS ANTRAL( W/O Hemorrhage) 02/24/2007 02/18/2011 Esophagitis, unspecified 02/24/2007 011 CTS (carpal tunnel syndrome) 12/2017 documented as of this encounter (statuses as of 07/17/2022) [facility] History of Past illness Narrative* Problem Noted Date Resolved Date Tendonitis, Achilles, left 03/26/201806/04 Tendonitis, Achilles, right 03/26/2018 08/0 12/2017 Unspecified constipation 10/17/2011 019 Abnormal mammogram, unspecified 05/17/2007 02/18/2011 Herpes zoster with other ner vous system complications(053.19) 03/09/2007 03/05/2018 HIATAL HERNIA 02/24/2007 02/18/2011 GASTRITIS ANTRAL( W/O Hemorrhage) 02/24/2007 02/18/2011 Esophagitis, unspecified 02/24/2007 011 CTS (carpal tunnel syndrome) 12/2017 documented as of this encounter (statuses as of 07/18/2022) [facility] History of Past illness Narrative* Problem Noted Date Resolved Date Tendonitis, Achilles, left 03/26/201806/04 Tendonitis, Achilles, right 03/26/2018 08/0 12/2017 Unspecified constipation 10/17/2011 019 Abnormal mammogram, unspecified 05/17/2007 02/18/2011 Herpes zoster with other ner vous system complications(053.19) 03/09/2007 03/05/2018 HIATAL HERNIA 02/24/2007 02/18/2011 GASTRITIS ANTRAL( W/O Hemorrhage) 02/24/2007 02/18/2011 Esophagitis, unspecified 02/24/2007 011 CTS (carpal tunnel syndrome) 12/2017 documented as of this encounter (statuses as of 09/16/2022) [facility] History of Past illness Narrative* Problem Noted Date Resolved Date Tendonitis, Achilles, left 03/26/201806/04 Tendonitis, Achilles, right 03/26/2018 08/0 12/2017 Diverticulitis 10/24/2011 10/02/2022 Unspecified constipation 10/17/2011 019 Benign neoplasm of colon 10/17/2011 022 Constipation 10/14/2011 10/02/2022 Other specified cardiac dysrhythmias(427.89) 09/200910/02/2022 Abnormal mammogram, unspecified 05/17/2007 02/18/2011 Herpes zoster with other ner vous system complications(053.19) 03/09/2007 03/05/2018 HIATAL HERNIA 02/24/2007 02/18/2011 GASTRITIS ANTRAL( W/O Hemorrhage) 02/24/2007 02/18/2011 Esophagitis, unspecified 02/24/2007 011 OBESITY 12/16/2005 10/02/2022 CTS (carpal tunnel syndrome) 12/2017 documented as of this encounter (statuses as of 10/02/2022) [facility] History of Past illness Narrative* Problem Noted Date Resolved Date Tendonitis, Achilles, left 03/26/201806/04 Tendonitis, Achilles, right 03/26/2018 08/0 12/2017 Diverticulitis 10/24/2011 10/02/2022 Unspecified constipation 10/17/2011 019 Benign neoplasm of colon 10/17/2011 022 Constipation 10/14/2011 10/02/2022 Other specified cardiac dysrhythmias(427.89) 09/200910/02/2022 Abnormal mammogram, unspecified 05/17/2007 02/18/2011 Herpes zoster with other ner vous system complications(053.19) 03/09/2007 03/05/2018 HIATAL HERNIA 02/24/2007 02/18/2011 GASTRITIS ANTRAL( W/O Hemorrhage) 02/24/2007 02/18/2011 Esophagitis, unspecified 02/24/2007 011 OBESITY 12/16/2005 10/02/2022 CTS (carpal tunnel syndrome) 12/2017 documented as of this encounter (statuses as of 10/03/2022) [facility] of Past illness Narrative* Problem Noted Date Resolved Date Tendonitis, Achilles, left 03/26/2018 08/03 /2018 Tendonitis, Achilles, right 03/26/2018 08/0 12/2017 Diverticulitis 10/24/2011 10/02/2022 Unspecified constipation 10/17/2011 019 Benign neoplasm of colon 10/17/2011 022 Constipation 10/14/2011 10/02/2022 Other specified cardiac dysrhythmias(427.89) 09/200910/02/2022 Abnormal mammogram, unspecified 05/17/2007 02/18/2011 Herpes zoster with other ner vous system complications(053.19) 03/09/2007 03/05/2018 HIATAL HERNIA 02/24/2007 02/18/2011 GASTRITIS ANTRAL( W/O Hemorrhage) 02/24/2007 02/18/2011 Esophagitis, unspecified 02/24/2007 011 OBESITY 12/16/2005 10/02/2022 CTS (carpal tunnel syndrome) 12/2017 documented as of this encounter (statuses as of 11/17/2022) [facility] History of Past illness Narrative* Problem Noted Date Resolved Date Tendonitis, Achilles, left 03/26/201806/04 Tendonitis, Achilles, right 03/26/2018 08/0 12/2017 Diverticulitis 10/24/2011 10/02/2022 Unspecified constipation 10/17/2011 019 Benign neoplasm of colon 10/17/2011 022 Constipation 10/14/2011 10/02/2022 Other specified cardiac dysrhythmias(427.89) 09/200910/02/2022 Abnormal mammogram, unspecified 05/17/2007 02/18/2011 Herpes zoster with other ner vous system complications(053.19) 03/09/2007 03/05/2018 HIATAL HERNIA 02/24/2007 02/18/2011 GASTRITIS ANTRAL( W/O Hemorrhage) 02/24/2007 02/18/2011 Esophagitis, unspecified 02/24/2007 011 OBESITY 12/16/2005 10/02/2022 CTS (carpal tunnel syndrome) 12/2017 documented as of this encounter (statuses as of 11/27/2022) [facility] History of Past illness Narrative* Problem Noted Date Resolved Date Tendonitis, Achilles, left 03/26/201806/04 Tendonitis, Achilles, right 03/26/2018 080 12/2017 Diverticulitis 10/24/2011 10/02/2022 Unspecified constipation 10/17/2011 019 Benign neoplasm of colon 10/17/2011 022 Constipation 10/14/2011 10/02/2022 Other specified cardiac dysrhythmias(427.89) 09/200910/02/2022 Abnormal mammogram, unspecified 05/17/2007 02/18/2011 Herpes zoster with other ner vous system complications(053.19) 03/09/2007 03/05/2018 HIATAL HERNIA 02/24/2007 02/18/2011 GASTRITIS ANTRAL( W/O Hemorrhage) 02/24/2007 02/18/2011 Esophagitis, unspecified 02/24/2007 011 OBESITY 12/16/2005 10/02/2022 CTS (carpal tunnel syndrome) 12/2017 documented as of this encounter (statuses as of 12/26/2022) [facility] History of Past illness Narrative* Problem Noted Date Resolved Date Tendonitis, Achilles, left 03/26/201806/04 Tendonitis, Achilles, right 03/26/2018 080 12/2017 Diverticulitis 10/24/2011 10/02/2022 Unspecified constipation 10/17/2011 019 Benign neoplasm of colon 10/17/2011 022 Constipation 10/14/2011 10/02/2022 Other specified cardiac dysrhythmias(427.89) 09/200910/02/2022 Abnormal mammogram, unspecified 05/17/2007 02/18/2011 Herpes zoster with other ner vous system complications(053.19) 03/09/2007 03/05/2018 HIATAL HERNIA 02/24/2007 02/18/2011 GASTRITIS ANTRAL( W/O Hemorrhage) 02/24/2007 02/18/2011 Esophagitis, unspecified 02/24/2007 011 OBESITY 12/16/2005 10/02/2022 CTS (carpal tunnel syndrome) 12/2017 documented as of this encounter (statuses as of 01/01/2023) [facility] History of Past illness Narrative* Problem Noted Date Resolved Date Tendonitis, Achilles, left 03/26/201806/04 Tendonitis, Achilles, right 03/26/2018 080 12/2017 Diverticulitis 10/24/2011 10/02/2022 Unspecified constipation 10/17/2011 019 Benign neoplasm of colon 10/17/2011 022 Constipation 10/14/2011 10/02/2022 Other specified cardiac dysrhythmias(427.89) 09/200910/02/2022 Abnormal mammogram, unspecified 05/17/2007 02/18/2011 Herpes zoster with other ner vous system complications(053.19) 03/09/2007 03/05/2018 HIATAL HERNIA 02/24/2007 02/18/2011 GASTRITIS ANTRAL( W/O Hemorrhage) 02/24/2007 02/18/2011 Esophagitis, unspecified 02/24/2007 011 OBESITY 12/16/2005 10/02/2022 CTS (carpal tunnel syndrome) 12/2017 documented as of this encounter (statuses as of 01/16/2023) [facility] History of Past illness Narrative* Problem Noted Date Resolved Date Tendonitis, Achilles, left 03/26/201806/04 Tendonitis, Achilles, right 03/26/2018 080 12/2017 Diverticulitis 10/24/2011 10/02/2022 Unspecified constipation 10/17/2011 019 Benign neoplasm of colon 10/17/2011 022 Constipation 10/14/2011 10/02/2022 Other specified cardiac dysrhythmias(427.89) 09/200910/02/2022 Abnormal mammogram, unspecified 05/17/2007 02/18/2011 Herpes zoster with other ner vous system complications(053.19) 03/09/2007 03/05/2018 HIATAL HERNIA 02/24/2007 02/18/2011 GASTRITIS ANTRAL( W/O Hemorrhage) 02/24/2007 02/18/2011 Esophagitis, unspecified 02/24/2007 011 OBESITY 12/16/2005 10/02/2022 CTS (carpal tunnel syndrome) 12/2017 documented as of this encounter (statuses as of 01/28/2023) [facility] History of Past illness Narrative* Problem Noted Date Resolved Date Tendonitis, Achilles, left 03/26/201806/04 Tendonitis, Achilles, right 03/26/2018 08/0 12/2017 Diverticulitis 10/24/2011 10/02/2022 Unspecified constipation 10/17/2011 019 Benign neoplasm of colon 10/17/2011 022 Constipation 10/14/2011 10/02/2022 Other specified cardiac dysrhythmias(427.89) 09/200910/02/2022 Abnormal mammogram, unspecified 05/17/2007 02/18/2011 Herpes zoster with other ner vous system complications(053.19) 03/09/2007 03/05/2018 HIATAL HERNIA 02/24/2007 02/18/2011 GASTRITIS ANTRAL( W/O Hemorrhage) 02/24/2007 02/18/2011 Esophagitis, unspecified 02/24/2007 011 OBESITY 12/16/2005 10/02/2022 CTS (carpal tunnel syndrome) 12/2017 documented as of this encounter (statuses as of 01/29/2023) [facility] History of Past illness Narrative* Problem Noted Date Resolved Date Tendonitis, Achilles, left 03/26/201806/04 Tendonitis, Achilles, right 03/26/2018 08/0 12/2017 Diverticulitis 10/24/2011 10/02/2022 Unspecified constipation 10/17/2011 019 Benign neoplasm of colon 10/17/2011 022 Constipation 10/14/2011 10/02/2022 Other specified cardiac dysrhythmias(427.89) 09/200910/02/2022 Abnormal mammogram, unspecified 05/17/2007 02/18/2011 Herpes zoster with other ner vous system complications(053.19) 03/09/2007 03/05/2018 HIATAL HERNIA 02/24/2007 02/18/2011 GASTRITIS ANTRAL( W/O Hemorrhage) 02/24/2007 02/18/2011 Esophagitis, unspecified 02/24/2007 011 OBESITY 12/16/2005 10/02/2022 CTS (carpal tunnel syndrome) 12/2017 documented as of this encounter (statuses as of 03/06/2023) [facility] History of Past illness Narrative* Problem Noted Date Resolved Date Tendonitis, Achilles, left 03/26/201806/04 Tendonitis, Achilles, right 03/26/2018 08/0 12/2017 Diverticulitis 10/24/2011 10/02/2022 Unspecified constipation 10/17/2011 019 Benign neoplasm of colon 10/17/2011 022 Constipation 10/14/2011 10/02/2022 Other specified cardiac dysrhythmias(427.89) 09/200910/02/2022 Abnormal mammogram, unspecified 05/17/2007 02/18/2011 Herpes zoster with other ner vous system complications(053.19) 03/09/2007 03/05/2018 HIATAL HERNIA 02/24/2007 02/18/2011 GASTRITIS ANTRAL( W/O Hemorrhage) 02/24/2007 02/18/2011 Esophagitis, unspecified 02/24/2007 011 OBESITY 12/16/2005 10/02/2022 CTS (carpal tunnel syndrome) 12/2017 documented as of this encounter (statuses as of 05/07/2023) [facility] of Past illness Narrative* Problem Noted Date Resolved Date Tendonitis, Achilles, left 03/26/201806/04 Tendonitis, Achilles, right 03/26/2018 08/0 12/2017 Diverticulitis 10/24/2011 10/02/2022 Unspecified constipation 10/17/2011 019 Benign neoplasm of colon 10/17/2011 022 Constipation 10/14/2011 10/02/2022 Other specified cardiac dysrhythmias(427.89) 09/200910/02/2022 Abnormal mammogram, unspecified 05/17/2007 02/18/2011 Herpes zoster with other ner vous system complications(053.19) 03/09/2007 03/05/2018 HIATAL HERNIA 02/24/2007 02/18/2011 GASTRITIS ANTRAL( W/O Hemorrhage) 02/24/2007 02/18/2011 Esophagitis, unspecified 02/24/2007 011 OBESITY 12/16/2005 10/02/2022 CTS (carpal tunnel syndrome) 12/2017 documented as of this encounter (statuses as of 05/08/2023) [facility] History of Past illness Narrative* Problem Noted Date Diagnosed Date Resolved Date Tendonitis, Achilles, left 03/26/2018 0 06/04/2018 Tendonitis, Achilles, right 03/26/2018 06/04/2018 Diverticulitis 10/24/2011 10/02/2022 Unspecified constipation 10/17/2011 Benign neoplasm of colon 10/17/201111/2021 Constipation 10/14/2011 10/02/2022 Other specified cardiac dysrhythmias(427.89) 9 10/02/2022 Abnormal mammogram, unspecified 05/17/2007 02/18/2011 Herpes zoster with other ner vous system complications(053.19) 03/09/2007 03/05/2018 HIATAL HERNIA 02/24/2007 02/18/2011 GASTRITIS ANTRAL( W/O Hemorrhage) 02/24/2007 02/18/2011 Esophagitis, unspecified 02/24/2007 OBESITY 12/16/2005 10/02/2022 CTS (carpal tunnel syndrome) 06/04/2018 documented as of this encounter (statuses as of 06/29/2023) [facility] History of Past illness Narrative* Problem Noted Date Diagnosed Date Resolved Date Tendonitis, Achilles, left 03/26/2018 0 06/04/2018 Tendonitis, Achilles, right 03/26/2018 06/04/2018 Diverticulitis 10/24/2011 10/02/2022 Unspecified constipation 10/17/2011 Benign neoplasm of colon 10/17/201111/2021 Constipation 10/14/2011 10/02/2022 Other specified cardiac dysrhythmias(427.89) 9 10/02/2022 Abnormal mammogram, unspecified 05/17/2007 02/18/2011 Herpes zoster with other ner vous system complications(053.19) 03/09/2007 03/05/2018 HIATAL HERNIA 02/24/2007 02/18/2011 GASTRITIS ANTRAL( W/O Hemorrhage) 02/24/2007 02/18/2011 Esophagitis, unspecified 02/24/2007 OBESITY 12/16/2005 10/02/2022 CTS (carpal tunnel syndrome) 06/04/2018 documented as of this encounter (statuses as of 07/22/2023) [facility] History of Past illness Narrative* Problem Noted Date Diagnosed Date Resolved Date Tendonitis, Achilles, left 03/26/2018 0 06/04/2018 Tendonitis, Achilles, right 03/26/2018 06/04/2018 Diverticulitis 10/24/2011 10/02/2022 Unspecified constipation 10/17/2011 Benign neoplasm of colon 10/17/201111/2021 Constipation 10/14/2011 10/02/2022 Other specified cardiac dysrhythmias(427.89) 9 10/02/2022 Abnormal mammogram, unspecified 05/17/2007 02/18/2011 Herpes zoster with other ner vous system complications(053.19) 03/09/2007 03/05/2018 HIATAL HERNIA 02/24/2007 02/18/2011 GASTRITIS ANTRAL( W/O Hemorrhage) 02/24/2007 02/18/2011 Esophagitis, unspecified 02/24/2007 OBESITY 12/16/2005 10/02/2022 CTS (carpal tunnel syndrome) 06/04/2018 documented as of this encounter (statuses as of 09/06/2023) [facility] Past illness Narrative* Problem Noted Date Diagnosed Date Resolved Date Tendonitis, Achilles, left 03/26/2018 0 06/04/2018 Tendonitis, Achilles, right 03/26/2018 06/04/2018 Diverticulitis 10/24/2011 10/02/2022 Unspecified constipation 10/17/2011 Benign neoplasm of colon 10/17/201111/2021 Constipation 10/14/2011 10/02/2022 Other specified cardiac dysrhythmias(427.89) 9 10/02/2022 Abnormal mammogram, unspecified 05/17/2007 02/18/2011 Herpes zoster with other ner vous system complications(053.19) 03/09/2007 03/05/2018 HIATAL HERNIA 02/24/2007 02/18/2011 GASTRITIS ANTRAL( W/O Hemorrhage) 02/24/2007 02/18/2011 Esophagitis, unspecified 02/24/2007 OBESITY 12/16/2005 10/02/2022 CTS (carpal tunnel syndrome) 06/04/2018 documented as of this encounter (statuses as of 09/30/2023) [facility] Essential hypertension Unspecified essential hypertension [facility] Diagnosis Screening breast examination- Primary Breast screening, unspecified [facility] Diagnosis Postmenopausal Asymptomatic postmenopausal status (age-related) (natural) [facility] Diagnosis Screening breast examination Breast screening, unspecified [facility] Diagnosis Nonrheumatic mitral valve regurgitation- Primary Persistent atrial fibrillation (HCC) Atrial fibrillation Paroxysmal SVT (supraventricular tachycardia) (HCC) 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 tachycardia 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 Long-term (current) use of 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 Atherosclerosis of coronary artery of [place] heart without angina pectoris, unspecified vessel or lesion type Essential hypertension Unspecified essential hypertension Mixed hyperlipidemia Type 2 diabetes mellitus without complication, without long-term current use of insulin (HCC) Obesity without serious comorbidity, unspecified classification, unspecified obesity type Malignant neoplasm of female breast, unspecified estrogen receptor status, unspecified laterality, unspecified site of breast (HCC) Benign neoplasm of colon, unspecified part of colon Constipation, unspecified constipation type Osteopenia, unspecified location Primary osteoarthritis of right knee Primary localized osteoarthrosis, lower leg Gastroesophageal reflux disease without esophagitis Esophageal reflux Other specified hypotension Serum calcium elevated Hypercalcemia History of colon polyps Personal history of colonic polyps [facility] Diagnosis Essential hypertension- Primary Unspecified essential hypertension [facility] Diagnosis Atherosclerosis of coronary artery of [place] heart without angina pectoris, unspecified vessel or lesion type- Primary Essential hypertension Unspecified essential hypertension Mixed hyperlipidemia Persistent atrial fibrillation (HCC) Atrial fibrillation Paroxysmal SVT (supraventricular tachycardia) (HCC) 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 tachycardia Nonrheumatic mitral valve regurgitation Gastroesophageal reflux disease without esophagitis Esophageal reflux History of colon polyps Personal history of colonic polyps Type 2 diabetes mellitus without complication, without long-term current use of insulin (HCC) Malignant neoplasm of female breast, unspecified estrogen receptor status, unspecified laterality, unspecified site of breast (HCC) 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 Long-term (current) use of 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 Osteopenia, unspecified location Hypercalcemia Need for hepatitis C screening test Special screening examination for other specified viral diseases [facility] Diagnosis Hypercalcemia- Primary documented in this encounter [facility] note* Diagnosis Essential hypertension- Primary Unspecified essential hypertension documented in this encounter [facility] note* Diagnosis Paroxysmal SVT (supraventricular tachycardia) (HCC)- Primary 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 tachycardia Persistent atrial fibrillation (HCC) Atrial fibrillation Atherosclerosis of coronary artery of [place] heart without angina pectoris, unspecified vessel or lesion type Essential hypertension Unspecified essential hypertension Mixed hyperlipidemia Nonrheumatic mitral valve regurgitation BPPV (benign paroxysmal positional vertigo), unspecified laterality Type 2 diabetes mellitus without complication, without long-term current use of insulin (HCC) [facility] Diagnosis Vertigo- Primary Dizziness and giddiness Essential hypertension Unspecified essential hypertension Atherosclerosis of coronary artery of [place] heart without angina pectoris, unspecified vessel or lesion type Persistent atrial fibrillation (HCC) Atrial fibrillation Paroxysmal SVT (supraventricular tachycardia) (HCC) 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 tachycardia Type 2 diabetes mellitus without complication, without long-term current use of insulin (HCC) Malignant neoplasm of female breast, unspecified estrogen receptor status, unspecified laterality, unspecified site of breast (HCC) Osteopenia, unspecified location [facility] Diagnosis Essential hypertension Unspecified essential hypertension documented in this encounter [facility] note* Diagnosis Essential hypertension- Primary Unspecified essential hypertension Mixed hyperlipidemia Paroxysmal SVT (supraventricular tachycardia) (HCC) 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 tachycardia Persistent atrial fibrillation (HCC) Atrial fibrillation Type 2 diabetes mellitus without complication, without long-term current use of insulin (HCC) 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 Long-term (current) use of 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 Osteopenia, unspecified location Malignant neoplasm of female breast, unspecified estrogen receptor status, unspecified laterality, unspecified site of breast (HCC) Screening mammogram for breast cancer [facility] Diagnosis Type 2 diabetes mellitus without complication, without long-term current use of insulin (HCC)- Primary [facility] Diagnosis Type 2 diabetes mellitus without complication, without long-term current use of insulin (HCC) documented in this encounter [facility] note* Diagnosis Malignant neoplasm of female breast, unspecified estrogen receptor status, unspecified laterality, unspecified site of breast (HCC) [facility] Diagnosis Essential hypertension Unspecified essential hypertension documented in this encounter [facility] for referral (narrative)* Diagnostic Procedure Only (Routine) - Authorized Specialty Diagnoses / Procedures Referred By Contac t Referred To Contact [facility] Diagnoses Screening breast examination Procedures GENEVA SCREENING SCREENING MAMMOGRAPHY BI 2-VIEW BREAST INC Santo Moss MD [address] [place] [address] [facility] [address] [place] [address] Referral ID Status Reason Start Date Expiration Date Visits Requested Visits Authorized [id number] Authorized Auto-Generat ed Referral 04/22/2022 05/22/2023 1 1 T [facility] for referral (narrative)* Diagnostic Procedure Only (Routine) - Closed Specialty Diagnoses / Procedures [facility] Referred To Contact [facility] Diagnoses Screening breast examination Procedures GENEVA SCREENING SCREENING MAMMOGRAPHY BI 2-VIEW BREAST INC Santo Moss MD [address] [place] [address] [facility] [address] [place] [address] Referral ID Status Reason Start Date Expiration Date V isits Requested Visits Authorized [id number] Closed Auto-Generate d Referral 04/22/2022 05/22/2023 1 1 T [facility] for referral (narrative)* Outpatient Procedure (Routine) - Authorized Specialty Diagnoses / Procedures [facility] Diagnoses Persistent atrial fibrillation (HCC) Other specified hypotension Procedures ECG COMPLETE ECG ROUTINE ECG W/LEAST 12 LDS W/I&R Talya Rodriguez PA-C [address] [place] [address] [facility] [place] [address] [place] [address] Referral ID Status Reason Start Date Expiration Date Visits Requested Visits Authorized [id number] Authorized Auto-Generat ed Referral 06/27/2022 06/27/2023 1 1 [facility] for referral (narrative)* Diagnostic Procedure Only (Routine) - Authorized Specialty Diagnoses / Procedures Referred By Contac t Referred To Contact [facility] Diagnoses Malignant neoplasm of female breast, unspecified estrogen receptor status, unspecified laterality, unspecified site of breast (HCC) Procedures GENEVA SCREENING SCREENING MAMMOGRAPHY BI 2-VIEW BREAST INC Santo Moss MD [address] [place], [place] [id number] [facility] [address] [place] [address] Referral ID Status Reason Start Date Expiration Date Visits Requested Visits Authorized [id number] Authorized Auto-Generat ed Referral 05/07/2023 06/05/2024 1 1 [facility] for referral (narrative)* Diagnostic Procedure Only (Routine) - Closed Specialty Diagnoses / Procedures Referred By Contac t Referred To Contact [facility] Diagnoses Malignant neoplasm of female breast, unspecified estrogen receptor status, unspecified laterality, unspecified site of breast (HCC) Procedures GENEVA SCREENING SCREENING MAMMOGRAPHY BI 2-VIEW BREAST INC Santo Moss MD [address] [place] [address] [facility] [address] [place] [address] Referral ID Status Reason Start Date Expiration Date V isits Requested Visits Authorized [id number] Closed Auto-Generate d Referral 05/07/2023 06/05/2024 1 1 [facility] for visit Narrative* Diagnostic Procedure Only (Routine) - Closed Specialty Diagnoses / Procedures Referred By Contac t Referred To Contact [facility] Diagnoses Screening breast examination Procedures GENEVA SCREENING SCREENING MAMMOGRAPHY BI 2-VIEW BREAST INC Santo Moss MD [address] [place] [address] [facility] [address] [place] [address] Referral ID Status Reason Start Date Expiration Date V isits Requested Visits Authorized [id number] Closed Auto-Generate d Referral 04/22/2022 05/22/2023 1 1 [facility] for visit Narrative* Diagnostic Procedure Only (Routine) - Closed Specialty Diagnoses / Procedures Referred By Elia villegas Referred To Contact [facility] IMAG[facility] Diagnoses Malignant neoplasm of female breast, unspecified estrogen receptor status, unspecified laterality, unspecified site of breast (HCC) Procedures GENEVA SCREENING SCREENING MAMMOGRAPHY BI 2-VIEW BREAST INC Santo Moss MD [address] [place] [address] [facility] Imaging [address] [place] [address] Referral ID Status Reason Start Date Expiration Date V isits Requested Visits Authorized [id number] Closed Auto-Generate d Referral 05/07/2023 06/05/2024 1 1 [facility] Summary Purpose Family History No Family History Records FoundNo Family History Records FoundNo Family History Records FoundNo Family History Records Found Advance Directives No Advanced Directives Records FoundDocuments on File 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 Advance Directive(s) 09/17/2021 6:44 AM Advance Directive(s) 09/11/2020 10:43 AM Advance Directive(s) 11/13/2016 12:33 PM Advance Directive(s) 11/06/2016 12:34 PM Documents on File 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 Advance Directive(s) 09/17/2021 6:44 AM Advance Directive(s) 09/11/2020 10:43 AM Advance Directive(s) 11/13/2016 12:33 PM Advance Directive(s) 11/06/2016 12:34 PM Medications Administered Section Inactive Administered Medications - up to 3 most recent administrations Medication Order MAR Action Action Date Dose Rate Site ondansetron (PF) 4 mg injection (ZOFRAN) 4 mg, INTRAMUSCULAR, ONCE, 1 dose, On Maya 01/01/23 at 1130, Give IV push over 2 minutes Given 01/01/2023 11:11 AM EST 4 mg Buttocks, Left Additional Source Comments INFORMATION SOURCE (unrecogn ized section and content) DATE CREATED AUTHOR AUTHOR'S ORGANIZ ATION 07/02/2018 [facility] DATE CREATED AUTHOR AUTHOR'S ORGANIZ ATION [facility]/06/2020 [facility] DATE CREATED AUTHOR AUTHOR'S ORGANIZ ATION 11/16/2023 [facility] Source Comments (unrecognize d section and content) In the event this informatio n is protected by the Federal Confidentiality of Alcohol and Drug Abuse Patient Records regulations: The Federal rules restrict any use of the information to criminally investigate or prosecute any alcohol or drug abuse patient.[facility] the event this information is protected by the Federal Confidentiality of Alcohol and Drug Abuse Patient Records regulations: The Federal rules restrict any use of the information to criminally investigate or prosecute any alcohol or drug abuse patient.[facility] System[facility] the event this information is protected by the Federal Confidentiality of Alcohol and Drug Abuse Patient Records regulations: The Federal rules restrict any use of the information to criminally investigate or prosecute any alcohol or drug abuse patient.[facility] SystemIn the event this information is protected by the Federal Confidentiality of Alcohol and Drug Abuse Patient Records regulations: The Federal rules restrict any use of the information to criminally investigate or prosecute any alcohol or drug abuse patient.[facility] System[facility] the event this information is protected by the Federal Confidentiality of Alcohol and Drug Abuse Patient Records regulations: The Federal rules restrict any use of the information to criminally investigate or prosecute any alcohol or drug abuse patient.[facility] System[facility] the event this information is protected by the Federal Confidentiality of Alcohol and Drug Abuse Patient Records regulations: The Federal rules restrict any use of the information to criminally investigate or prosecute any alcohol or drug abuse patient.[facility] System[facility] the event this information is protected by the Federal Confidentiality of Alcohol and Drug Abuse Patient Records regulations: The Federal rules restrict any use of the information to criminally investigate or prosecute any alcohol or drug abuse patient.[facility] SystemIn the event this information is protected by the Federal Confidentiality of Alcohol and Drug Abuse Patient Records regulations: The Federal rules restrict any use of the information to criminally investigate or prosecute any alcohol or drug abuse patient.[facility] SystemIn the event this information is protected by the Federal Confidentiality of Alcohol and Drug Abuse Patient Records regulations: The Federal rules restrict any use of the information to criminally investigate or prosecute any alcohol or drug abuse patient.[facility] SystemIn the event this information is protected by the Federal Confidentiality of Alcohol and Drug Abuse Patient Records regulations: The Federal rules restrict any use of the information to criminally investigate or prosecute any alcohol or drug abuse patient.[facility] SystemIn the event this information is protected by the Federal Confidentiality of Alcohol and Drug Abuse Patient Records regulations: The Federal rules restrict any use of the information to criminally investigate or prosecute any alcohol or drug abuse patient.[facility] SystemIn the event this information is protected by the Federal Confidentiality of Alcohol and Drug Abuse Patient Records regulations: The Federal rules restrict any use of the information to criminally investigate or prosecute any alcohol or drug abuse patient.[facility] SystemIn the event this information is protected by the Federal Confidentiality of Alcohol and Drug Abuse Patient Records regulations: The Federal rules restrict any use of the information to criminally investigate or prosecute any alcohol or drug abuse patient.[facility] SystemIn the event this information is protected by the Federal Confidentiality of Alcohol and Drug Abuse Patient Records regulations: The Federal rules restrict any use of the information to criminally investigate or prosecute any alcohol or drug abuse patient.[facility] SystemIn the event this information is protected by the Federal Confidentiality of Alcohol and Drug Abuse Patient Records regulations: The Federal rules restrict any use of the information to criminally investigate or prosecute any alcohol or drug abuse patient.[facility] SystemIn the event this information is protected by the Federal Confidentiality of Alcohol and Drug Abuse Patient Records regulations: The Federal rules restrict any use of the information to criminally investigate or prosecute any alcohol or drug abuse patient.[facility] SystemIn the event this information is protected by the Federal Confidentiality of Alcohol and Drug Abuse Patient Records regulations: The Federal rules restrict any use of the information to criminally investigate or prosecute any alcohol or drug abuse patient.[facility] SystemIn the event this information is protected by the Federal Confidentiality of Alcohol and Drug Abuse Patient Records regulations: The Federal rules restrict any use of the information to criminally investigate or prosecute any alcohol or drug abuse patient.[facility] SystemIn the event this information is protected by the Federal Confidentiality of Alcohol and Drug Abuse Patient Records regulations: The Federal rules restrict any use of the information to criminally investigate or prosecute any alcohol or drug abuse patient.[facility] SystemIn the event this information is protected by the Federal Confidentiality of Alcohol and Drug Abuse Patient Records regulations: The Federal rules restrict any use of the information to criminally investigate or prosecute any alcohol or drug abuse patient.[facility] SystemIn the event this information is protected by the Federal Confidentiality of Alcohol and Drug Abuse Patient Records regulations: The Federal rules restrict any use of the information to criminally investigate or prosecute any alcohol or drug abuse patient.[facility] SystemIn the event this information is protected by the Federal Confidentiality of Alcohol and Drug Abuse Patient Records regulations: The Federal rules restrict any use of the information to criminally investigate or prosecute any alcohol or drug abuse patient.[facility] SystemIn the event this information is protected by the Federal Confidentiality of Alcohol and Drug Abuse Patient Records regulations: The Federal rules restrict any use of the information to criminally investigate or prosecute any alcohol or drug abuse patient.[facility] SystemIn the event this information is protected by the Federal Confidentiality of Alcohol and Drug Abuse Patient Records regulations: The Federal rules restrict any use of the information to criminally investigate or prosecute any alcohol or drug abuse patient.[facility] SystemIn the event this information is protected by the Federal Confidentiality of Alcohol and Drug Abuse Patient Records regulations: The Federal rules restrict any use of the information to criminally investigate or prosecute any alcohol or drug abuse patient.[facility] SystemIn the event this information is protected by the Federal Confidentiality of Alcohol and Drug Abuse Patient Records regulations: The Federal rules restrict any use of the information to criminally investigate or prosecute any alcohol or drug abuse patient.[facility] SystemIn the event this information is protected by the Federal Confidentiality of Alcohol and Drug Abuse Patient Records regulations: The Federal rules restrict any use of the information to criminally investigate or prosecute any alcohol or drug abuse patient.[facility] SystemIn the event this information is protected by the Federal Confidentiality of Alcohol and Drug Abuse Patient Records regulations: The Federal rules restrict any use of the information to criminally investigate or prosecute any alcohol or drug abuse patient.[facility] SystemIn the event this information is protected by the Federal Confidentiality of Alcohol and Drug Abuse Patient Records regulations: The Federal rules restrict any use of the information to criminally investigate or prosecute any alcohol or drug abuse patient.[facility] SystemIn the event this information is protected by the Federal Confidentiality of Alcohol and Drug Abuse Patient Records regulations: The Federal rules restrict any use of the information to criminally investigate or prosecute any alcohol or drug abuse patient.[facility] SystemIn the event this information is protected by the Federal Confidentiality of Alcohol and Drug Abuse Patient Records regulations: The Federal rules restrict any use of the information to criminally investigate or prosecute any alcohol or drug abuse patient.[facility] Reason for Visit (unrecogniz ed section and content) Reason Comments prescription assistance Reason Comments Patient Update Reason Comments mammogram order Reason Comments 6 Month Exam Reason Comments Blood Pressure Check Reason Onset Date Comments Refill Request 09/16/2022 Reason Comments Diabetes Reason Comments Results Reason Comments Refill Request Reason Comments Question Reason Comments Hypertension Dizziness, nausea, v omiting Reason Onset Date Comments Refill Request 01/16/2023 Reason Comments Patient Assistance Reason Comments Follow Up Diabetes Reason Onset Date Comments Refill Request 03/06/2023 Reason Comments Med Change Request Reason Onset Date Comments Refill Request 09/30/2023 SEE RX NOTES TO CHANGE Care Teams (unrecognized sec tion and content) Retail Helper Relationship Specialty Start Date End Date Santo Taveras MD [address] [place] [address] PCP - General Family Practice 09/18/15 [facility] [address] [place] [address] Pharmacist Pharmacy 04/14/19 Yazmin Meade [facility] [address] [place] [address] Pharmacist Pharmacy 10/31/20 Retail Helper Relationship Specialty Start Date End Date Santo Taveras MD [address] [place], [place] [address] PCP - General Family Practice 09/18/15 [facility] [address] [place] [address] Pharmacist Pharmacy 04/14/19 [facility] [address] [facility] [place] [address] Pharmacist Pharmacy 10/31/20 Retail Helper Relationship Specialty Start Date End Date Santo Taveras MD [address] [facility] [place] [address] PCP - General Family Practice 09/18/15 [facility] [address] [facility] [place] [address] Pharmacist Pharmacy 04/14/19 [facility] [address] [facility] [place] [address] Pharmacist Pharmacy 10/31/20 Retail Helper Relationship Specialty Start Date End Date Santo Taveras MD [address] [facility] [place] [address] PCP - General Family Practice 09/18/15 [facility] [address] [facility] [place] [address] Pharmacist Pharmacy 04/14/19 [facility] [address] [facility] [place] [address] Pharmacist Pharmacy 10/31/20 Retail Helper Relationship Specialty Start Date End Date Santo Taveras MD [address] [facility] [place] [address] PCP - General Family Practice 09/18/15 Jenny Brooke, [facility] [address] [facility] [place] [address] Pharmacist Pharmacy 04/14/19 [facility] [address] [facility] [place] [address] Pharmacist Pharmacy 10/31/20 Retail Helper Relationship Specialty Start Date End Date Santo Taveras MD [address] [facility] [place] [address] PCP - General Family Practice 09/18/15 [facility]Jenny [facility]manCr[facility] [address] [facility] [place] [address] Pharmacist Pharmacy 04/14/19 [facility] [address] [facility] [place] [address] Pharmacist Pharmacy 10/31/20 Retail Helper Relationship Specialty Start Date End Date Santo Taveras MD [address] [facility] [place] [address] PCP - General Family Practice 09/18/15 [facility] [address] [facility] [place] [address] Pharmacist Pharmacy 04/14/19 [facility] [address] [facility] [place] [address] Pharmacist Pharmacy 10/31/20 Retail Helper Relationship Specialty Start Date End Date Santo Taveras MD [address] [facility] [place] [address] PCP - General Family Practice 09/18/15 [facility] [address] [facility] [place] [address] Pharmacist Pharmacy 04/14/19 Yazmin Meade, [facility] [address] [facility] [place] [address] Pharmacist Pharmacy 10/31/20 Retail Helper Relationship Specialty Start Date End Date Santo Taveras MD [address] [facility] [place] [address] PCP - General Family Medicine 09/18/15 Jenny Brooke, [facility] [address] [facility] [place] [place] [address] Pharmacist Pharmacy 04/14/19 [facility] [address] [place] [address] Pharmacist Pharmacy 10/31/20 Retail Helper Relationship Specialty Start Date End Date Santo Taveras MD [address] [facility] [place] [place] [address] PCP - General Family Medicine 09/18/15 Jenny Brooke, [facility] [address] [facility] [place] [address] Pharmacist Pharmacy 04/14/19 [facility] [address] [facility] [place] [address] Pharmacist Pharmacy 10/31/20 Retail Helper Relationship Specialty Start Date End Date Santo Taveras MD [address] [facility] [address] PCP - General Family Medicine 09/18/15 Jenny Brooke, [facility] [address] [place] [address] Pharmacist Pharmacy 04/14/19 [facility] [address] [facility] [place] [address] Pharmacist Pharmacy 10/31/20 Retail Helper Relationship Specialty Start Date End Date Santo Taveras MD [address] [facility] [place] [address] PCP - General Family Medicine 09/18/15 Jenny Brooke, [facility] [address] [facility] [place] [address] Pharmacist Pharmacy 04/14/19 FarhanYazmin fierro, [facility] [address] [place] [address] Pharmacist Pharmacy 10/31/20 Retail Helper Relationship Specialty Start Date End Date Santo Taveras MD [address] [facility] [place] [address] PCP - General Family Medicine 09/18/15 Jenny Brooke, [facility] [address] [facility] [place] [place] [address] Pharmacist Pharmacy 04/14/19 FarhanYazmin fierro, [facility] [address] [facility] [place] [place] [address] Pharmacist Pharmacy 10/31/20 Retail Helper Relationship Specialty Start Date End Date Santo Taveras MD [address] [facility] [place] [address] PCP - General Family Medicine 09/18/15 Jenny Brooke, [facility] [address] [facility] [place] [address] Pharmacist Pharmacy 04/14/19 Yazmin Meade, [facility] [address] [facility] [place] [place] [address] Pharmacist Pharmacy 10/31/20 Retail Helper Relationship Specialty Start Date End Date Santo Taveras MD [address] [facility] [place] [address] PCP - General Family Medicine 09/18/15 Jenny Brooke, [facility] [address] [facility] [place] [place] [address] Pharmacist Pharmacy 04/14/19 FarhanYazmin fierro, [facility] [address] [facility] [place] [place] [address] Pharmacist Pharmacy 10/31/20 Retail Helper Relationship Specialty Start Date End Date Santo Taveras MD [address] [place] [address] PCP - General Family Medicine 09/18/15 TucsonJenny chatman, [facility] [address] [place] [address] Pharmacist Pharmacy 04/14/19 Yazmin Meade, [facility] [address] [place] [address] Pharmacist Pharmacy 10/31/20 Retail Helper Relationship Specialty Start Date End Date Santo Taveras MD [address] [facility] [place] [address] PCP - General Family Medicine 09/18/15 [facility] [address] [facility] [place] [place] [address] Pharmacist Pharmacy 04/14/19 Yazmin Meade, [facility] [address] [place] [address] Pharmacist Pharmacy 10/31/20 Retail Helper Relationship Specialty Start Date End Date Santo Taveras MD [address] [facility] [place] [address] PCP - General Family Medicine 09/18/15 Jenny Brooke, [facility] [address] [facility] [place] [address] Pharmacist Pharmacy 04/14/19 Yazmin Meade, [facility] [address] [place] [address] Pharmacist Pharmacy 10/31/20 Retail Helper Relationship Specialty Start Date End Date Santo Taveras MD [address] [facility] [place] [address] PCP - General Family Medicine 09/18/15 Mendy Jenny, [facility] [address] [place] [address] Pharmacist Pharmacy 04/14/19 [facility] [address] [place] [address] Pharmacist Pharmacy 10/31/20 Retail Helper Relationship Specialty Start Date End Date Santo Taveras MD [address] [place] [address] PCP - General Family Medicine 09/18/15 Yomaira Brookeily, [facility] [address] [place] [address] Pharmacist Pharmacy 04/14/19 [facility] [address] [place] [address] Pharmacist Pharmacy 10/31/20 Retail Helper Relationship Specialty Start Date End Date Santo Taveras MD [address] [place] [address] PCP - General Family Medicine 09/18/15 Yomaira Brookeily, [facility] [address] [place] [address] Pharmacist Pharmacy 04/14/19 [facility] [address] [place] [address] Pharmacist Pharmacy 10/31/20 Retail Helper Relationship Specialty Start Date End Date Santo Taveras MD [address] [place] [address] PCP - General Family Medicine 09/18/15 Jenny Brooke, [facility] [address] [place] [address] Pharmacist Pharmacy 04/14/19 [facility] [address] [place], [place] [address] Pharmacist Pharmacy 10/31/20 Retail Helper Relationship Specialty Start Date End Date Santo Taveras MD [address] [place], [place] [id number] PCP - General Family Medicine 09/18/15 [facility] [address] [place], [place] [address] Pharmacist Pharmacy 04/14/19 FOR RECORDS PERTAINING TO PATIENTS WHO ARE OR HAVE BEEN ENROLLED IN A CHEMICAL DEPENDENCY/SUBSTANCEABUSE PROGRAM, SOME INFORMATION MAY BE OMITTED. This clinical summary was aggregated from multiple sources. Caution should be exercised in using it in the provision of clinical care. This summary normalizes information from multiple sources, and as a consequence, information in this document may materially change the coding, format and clinical context of patient data. In addition, data may be omitted in some cases. CLINICAL DECISIONS SHOULD BE BASED ON THE PRIMARY CLINICAL RECORDS. [employer] provides no warranty or guarantee of the accuracy or completeness of information in this document.
--- NOTE | 2023-12-11 09:15 | RAD_ITS ---
INDICATION: trauma EXAMINATION/TECHNIQUE: X-RAY - XR Chest 1 View COMPARISON: No relevant prior comparison study available FINDINGS: LINES/DEVICES: None. LUNGS: Small nodules in the right midlung zone could be due to granulomata. Other etiologies are not excluded. No focal infiltrate otherwise is seen. No evidence of pleural effusions. MEDIASTINUM AND CARDIOVASCULAR STRUCTURES: Cardiac silhouette not enlarged. Central airways and mediastinal contour are unremarkable. BONES AND SOFT TISSUES: Degenerative changes in the thoracic spine. Surgical clips in right axilla. RAD/Chest 1 View (Portable) IMPRESSION: Small right midlung nodules. If no previous examination is available for comparison, CT scan of the chest is recommended. Otherwise no active pulmonary disease. Electronically Signed: Bryan Belle MD at 10:07 [facility] ,
[2023-12-11] MEDS: Pantoprazole Sodium 80 MG in 0.9% Normal Saline (50mL Bag) 15 ML 420 MG IV BOLUS (10:38)
[2023-12-11 10:44] LABS: Color, Urine Yellow (Yellow); Glucose, Dipstick 1000 mg/dl (Normal); Leukocyte Esterase-Dipstick 25 /ul (Negative); Nitrite-Dipstick Negative (Negative); Occult Blood-Urine Negative /ul (Negative); Protein-Dipstick 15 mg/dl (Negative); Specific Gravity, Urine 1.015 (1.002-1.030); Urine Clarity Sl. Cloudy (Clear); Urine Urobilinogen Normal (Normal)
[2023-12-11] MEDS: Pantoprazole Sodium 80 MG in 0.9% Normal Saline (100mL Bag) 80 ML 10 MG CONT INF ×2 (10:46→21:13)
[2023-12-11 10:51] LABS: Urine Bilirubin Dipstick 1 mg/dL (Negative)
[2023-12-11 10:52] LABS: Ketone-Dipstick 150 mg/dl (Negative)
[2023-12-11 10:54] LABS: Bacteria RARE /hpf (None Seen); Mucous, Urine 1+ /hpf (<or=2+); Red Blood Cells-Urine 0-5 SEEN /hpf (0-5); Squamous Epithelial Cells - UA 0-5 SEEN /hpf (5-10); White Blood Cells 0-5 SEEN /hpf (0-5)
--- NOTE | 2023-12-11 11:37 | PCM.HP.STD ---
HPI - General General Date of Admission: 12/11/23 Date of Service: 12/11/23 Chief Complaint: Hematemesis HPI Narrative MALORIE KIRK, is a 78 F who presented to [facility] ED on 12/11/2023 with hematemesis. Patient seen at bedside on the floor shortly after coming over from the ED, daughter present. Patient was sitting up comfortably in bedside chair, conversing normally, no acute distress. Patient lives with her daughter, has good functional status baseline. Patient is on Eliquis for A-fib, has never had issues with bleeding while on Eliquis. No previous history of GI bleeds. Patient states that she was walking the dog a few days ago when the dog pulled on the leash and patient fell forward to the ground. She did not lose consciousness. States she has had moderate right-sided rib pain since that time. Patient then started to have vomiting yesterday evening and noticed that it was initially blood-tinged. She then had 6-7 episodes of dark red emesis later yesterday night and this morning which prompted her to come into the ED for further evaluation. Patient has not had any further episodes of hematemesis since arriving to the ED. She denies any shortness of breath at rest. She does report mild pain in her ribs and right upper abdomen but states this is very manageable at rest. States her last bowel movement was yesterday and it was normal without diarrhea, melena or blood. She otherwise denies any fevers or chills. No other acute concerns this time. [facility] Medical History Atherosclerotic heart disease of [place] coronary artery without angina pectoris Essential hypertension GERD (gastroesophageal reflux disease) Liver mass Malignant neoplasm of right breast Old myocardial infarction Paroxysmal atrial fibrillation 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 tachycardia Presence of stent in coronary artery (~05/23/09) Pure hypercholesterolemia Type 2 diabetes mellitus Home Medications apixaban 5 mg tablet (Eliquis) 5 mg PO BID a.fib 09/06/19 [History Last Taken 02/12/21] cyanocobalamin (vitamin B-12) 1,000 mcg tablet 1,000 mcg PO DAILY 09/06/19 [History Last Taken 02/12/21] pravastatin 80 mg tablet 80 mg PO QHS 09/06/19 [History Last Taken 02/11/21] pyridoxine (vitamin B6) 100 mg tablet 100 mg PO DAILY 09/06/19 [History Last Taken 02/12/21] nitroglycerin 0.4 mg sublingual tablet 0.4 mg sublingual Q5-15M PRN chest pain #90 tabs 09/08/19 [Rx Last Taken Unknown] insulin glargine U-300 conc 300 unit/mL (1.5 mL) subcutaneous pen 20 unit subcut QHS 08/14/21 [History Last Taken Unknown] dulaglutide 4.5 mg/0.5 mL subcutaneous pen injector (Trulicity) 4.5 mg subcut MO 08/06/23 [History Last Taken 12/07/23] verapamil 300 mg capsule 24hr pellet CT,ext.release 300 mg PO QHS 08/06/23 [History Last Taken Unknown] brimonidine 0.2 % eye drops 1 drp ophthalmic (eye) BID 12/11/23 [History Last Taken Unknown] calcium carbonate 600 mg-vitamin D3 5 mcg (200 unit) tablet (Calcium 600 + D(3)) 1 tab PO DAILY 12/11/23 [History Last Taken Unknown] lisinopril 40 mg tablet 20 mg PO DAILY HIG BLOOD PRESSURE 12/11/23 [History Last Taken Unknown] Allergy/AdvReac Type Severity Reaction Status Date / Time alendronate sodium AdvReac Severe myalgias Verified 12/11/23 07:49 [From Fosamax] amoxicillin [Amoxicillin] AdvReac Nausea/Vom/ Verified 12/11/23 07:49 Diarrhea metformin AdvReac Nausea/Vom/ Verified 12/11/23 07:49 Diarrhea shellfish derived AdvReac Nausea/Vom/ Verified 12/11/23 07:49 Diarrhea Family History Mother Hypertension Diabetes CVA (cerebral vascular accident) CAD (coronary artery disease) Father History of DVT (deep vein thrombosis) Surgical History History of eyelid surgery (05/28/23) History of total abdominal hysterectomy Presence of coronary angioplasty implant and graft (~05/23/09) S/P lumpectomy, right breast Social History household members: family housing: house Smoking Status: Never smoker alcohol intake: never substance use type: does not use caffeine: Yes Type: coffee Number of servings: 2 ROS Constitutional Constitutional: Denies chills, fatigue, fever(s) or weakness Eyes Eyes: Denies change in vision ENT HEENT: Denies nasal congestion, nasal discharge, post nasal drip, sinus pressure or sore throat Cardiovascular Cardiovascular: Denies chest pain, dyspnea on exertion, edema or lightheadedness Respiratory/Chest Respiratory/Chest: Denies cough, shortness of breath at rest, shortness of breath with exertion or wheezing Gastrointestinal Gastrointestinal: Reports hematemesis, nausea and vomiting; Denies abdominal pain, constipation or diarrhea Genitourinary Genitourinary: Denies dysuria Musculoskeletal Musculoskeletal: Reports other Details: Right sided rib pain noted. ; Denies arthralgias or back pain Neurologic Neurologic: Denies dizziness, focal weakness or headache(s) Vital Signs Vital Signs Vital Signs: 12/11/23 07:46 Temperature 98.1 F Temperature Source Temporal Pulse Rate 90 Respiratory Rate 16 Blood Pressure 157/144 H Blood Pressure Mean 148 Pulse Ox 99 Oxygen Delivery Method Room Air Physical Exam Const alert, oriented x3, no apparent distress and average body habitus Constitutional Narrative: Pleasant elderly female, sitting up comfortably in bedside chair, conversing normally, no acute distress. General Appearance: cooperative and comfortable HEENT normocephalic, head/scalp atraumatic, hearing grossly normal bilaterally, nasal mucous membranes and turbinates normal and moist oral mucous membranes Eyes PERRL, EOMs intact bilaterally and conjunctivae normal Neck full ROM, no lymphadenopathy and supple Lymph Lymphatic: no lymphadenopathy noted Chest inspection of chest normal Chest Narrative: Mild tenderness to palpation in right lower chest/rib area, no significant bruising noted. Resp normal respiratory effort, normal air movement, no use of accessory muscles and clear to auscultation bilaterally Cardio regular rate, regular rhythm, no murmurs and peripheral pulses 2+ throughout GI normal to inspection, nondistended, normoactive bowel sounds, soft to palpation, non-tender and non-distended Back/Spine normal ROM Extremity normal to inspection, full ROM and no pedal edema Skin no rashes or lesions noted Neuro moves all extremities and no focal motor deficits Speech: speech normal Psych mental status grossly normal Results Lab / Micro Data 12/11/23 15:26 12/11/23 08:10 Labs: Laboratory Results - last 24 hr 12/11/23 08:10: WBC 13.6 H, RBC 3.63 L, Hgb 10.8 L, Hct 33.1 L, MCV 91.2, MCH 29.8, MCHC 32.6, RDW Std Deviation 46.0 H, RDW Coeff of Emperatriz 13.6, Plt Count 244, MPV 10.3, Immature Gran % (Auto) 0.400, Neut % (Auto) 86.0 H, Lymph % (Auto) 7.0 L, [place] % (Auto) 6.2, Eos % (Auto) 0.1, Baso % (Auto) 0.3, Absolute Neuts (auto) 11.7 H, Absolute Lymphs (auto) 0.95, Nucleated RBC % 0, Sodium 140, Potassium 4.2, Chloride 103, Carbon Dioxide 27.0, Anion Gap 10, BUN 37 H, Creatinine 0.98, Est GFR (MDRD) Af Amer 70, Est GFR (MDRD) Non-Af 58 L, BUN/Creatinine Ratio 37.8 H, Glucose 317 H, Calcium 9.1, Total Bilirubin 0.40, AST 16, ALT 24, Alkaline Phosphatase 96, Total Protein 6.5, Albumin 3.1 L, Globulin 3.4, Albumin/Globulin Ratio 0.9, Blood Type A POSITIVE, Antibody Screen NEGATIVE 12/11/23 10:40: Urine Color Yellow, Urine Clarity Sl. Cloudy, Urine pH 5.0, Ur Specific [place] 1.015, Urine Protein 15 H, Urine Glucose (UA) 1000 H, Urine Ketones 150 A*, Urine Occult Blood Negative, Urine Nitrite Negative, Urine Bilirubin 1 H, Urine Urobilinogen Normal, Ur Leukocyte Esterase 25 H, Urine RBC 0-5 SEEN, Urine WBC 0-5 SEEN, Ur Squamous Epith Cells 0-5 SEEN, Urine Bacteria RARE, Urine Mucus 1+ Rhythm Strip Rhythm Strip: sinus arrhythmia Rate: 95 Ectopy: None Imaging Radiology Impression Abdomen/Pelvis CT 12/11/23 08:21 IMPRESSION: 1. Nonspecific fluid-filled small bowel loops without evidence of small bowel obstruction. Enteritis is possible. 2. Focal stranding right lower quadrant extending from the cecum. Thickened appendix is doubtful. Follow-up exam is recommended if indicated. Electronically Signed: Bryan Belle MD at 10:05 EST , Chest X-Ray 12/11/23 09:15 IMPRESSION: Small right midlung nodules. If no previous examination is available for comparison, CT scan of the chest is recommended. Otherwise no active pulmonary disease. Electronically Signed: Bryan Belle MD at 10:07 EST , Assessment & Plan Assessment/Plan (1) UGIB (upper gastrointestinal bleed): (2) Acute blood loss anemia: PLAN: Plan Patient is a 78-year-old female who presented to [facility] ED on 12/11/2023 with hematemesis. 1. Hematemesis, mild acute normocytic anemia Suspect secondary to upper GI bleed. Recent fall forward onto chest in setting of Eliquis use may be contributing to patient's presentation. No significant history of GERD, no previous history of GI bleeds. Unclear if colonic findings on imaging are contributing to current presentation. Hemoglobin 10.8 on admit, baseline hemoglobin unclear, previous hemoglobin values in 12-13 range back in 2017. Elevated BUN to creatinine ratio of 37 noted. Chest x-ray on admit showed small right midlung nodules, otherwise no cardiopulmonary disease. CT abdomen pelvis showed focal stranding in right lower quadrant as well as nonspecific fluid-filled small bowel loops concerning for enteritis. Patient notably denies diarrhea or lower abdominal symptoms recently. ? Admit under inpatient status to PCU. GI consulted. Continue IV PPI drip. N.p.o. for now. Repeat hemoglobin 10.0 on the afternoon of 12/11, will recheck CBC again tomorrow morning. Iron studies with ferritin, B12 and folate ordered. Holding home Eliquis. 2. Recent mechanical fall with right-sided rib pain ? Imaging on admit as noted above, no acute fractures or significant hematomas noted. PT/OT/case management consulted. Tylenol as needed for pain. 3. Mild leukocytosis ? WBC count 13 K on admit. May be secondary to acute stress state versus mild gastroenteritis. Follow-up a.m. CBC. No need for antibiotics for now. 4. Type 2 diabetes mellitus with hyperglycemia ? Blood glucose 317 on admit. No recent A1c values found. Home regimen of Lantus 20 units at night, Trulicity weekly. Will start Lantus 15 units at night plus sliding scale insulin with meals, adjust as needed. Chronic medical conditions: ? Paroxysmal atrial fibrillation: Follows with cardiology in the office. Holding home Eliquis for now given GI bleed as noted above. Will also hold home verapamil for now, restart when able. ? History of CAD s/p stenting, hypertension, hyperlipidemia: Continue home statin, holding home lisinopril for now. ? History of breast carcinoma s/p lumpectomy DVT prophylaxis: SCDs CODE STATUS: Full code, verified Expected disposition: Home, 2 to 3 days Total clinical time spent by myself addressing the patient's medical issues, reviewing all the data, and collaborating with patient's care team: 55 minutes. Charges/Coding Visit Charges Inpatient E&M: 84467 Init Hosp L2
[2023-12-11 11:58] VITALS: BP 151/60; PULSE 76; RESP 16
[2023-12-11 11:59] VITALS: BP 151/60
[2023-12-11 12:46] VITALS: BMI 24.3
[2023-12-11 13:00] VITALS: BP 141/66; PULSE 87; RESP 16; TEMP 36.6; O2SAT 95
[2023-12-11 15:57] LABS: Hematocrit 30.7 % (37-47); Mean Corp Hgb Conc 32.6 g/dL (32-36); Mean Corpuscular Hgb 30.1 pg (27.0-32.0); Mean Corpuscular Volume 92.5 fL (81-99); Mean Platelet Vol. 10.4 fl (6.2-12.0); Platelet Count 234 K/mm3 (150-450); RBC Distribution Width CV 13.7 % (11.6-14.6); RBC Distribution Width SD 46.5 fl (35.1-43.9); Red Blood Count 3.32 M/mm3 (4.2-5.4)
[2023-12-11] MEDS: Insulin Lispro 100 UNIT/ML INSULN.PEN SC (16:44)
[2023-12-11 16:55] LABS: Bedside Glucose 205 mg/dL (74-106)
[2023-12-11 18:30] VITALS: BP 114/69; PULSE 85; RESP 16; TEMP 36.9; O2SAT 94
[2023-12-11 19:31] LABS: Hemoglobin A1c 8.2 % (3.8-5.6)
--- NOTE | 2023-12-11 20:29 | CON.PCM.GI_ITS ---
HPI Consult Data Date of Consult: 12/11/23 HPI Narrative Reason for Consultation: GI bleed HPI Narrative: MALORIE KIRK, is a 78 F with Afib on eliquis presents after an accidental fall 2 days ago. She was holding the leash and the dog pulled her down. She fell prone onto the floor inside her home. She has been having some pain in her right upper abdomen and ribs that started the day after. Yesterday she started vomiting, and overnight it turned red. Initially the emesis was dark, and the last 6 or 7 emesis was dark red blood. Her last bowel movement was yesterday and it was normal without diarrhea, melena, blood. She denies any chest pain or shortness of breath, she states her rib hurts in the right upper quadrant area, she does not have significant pain if she takes a deep breath. She denies any head injury although she has some bruising on her head that she states was from a fall 1 or 2 weeks ago, she denies any back pain, extremity injury. She has a history of an FL with stents in her heart as well as A-fib for which she is on Eliquis. Last dose was a little more than 24 hours ago has not taken her morning medications due to vomiting this morning Her last hgb was 12 severall years ago prior to being admitted today. Her hgb today is 10.2. [facility] Medical History Atherosclerotic heart disease of [place] coronary artery without angina pectoris Essential hypertension GERD (gastroesophageal reflux disease) Liver mass Malignant neoplasm of right breast Old myocardial infarction Paroxysmal atrial fibrillation 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 tachycardia Presence of stent in coronary artery (~05/23/09) Pure hypercholesterolemia Type 2 diabetes mellitus Home Medications apixaban 5 mg tablet (Eliquis) 5 mg PO BID a.fib 09/06/19 [History Last Taken 02/12/21] cyanocobalamin (vitamin B-12) 1,000 mcg tablet 1,000 mcg PO DAILY 09/06/19 [History Last Taken 02/12/21] pravastatin 80 mg tablet 80 mg PO QHS 09/06/19 [History Last Taken 02/11/21] pyridoxine (vitamin B6) 100 mg tablet 100 mg PO DAILY 09/06/19 [History Last Taken 02/12/21] nitroglycerin 0.4 mg sublingual tablet 0.4 mg sublingual Q5-15M PRN chest pain #90 tabs 09/08/19 [Rx Last Taken Unknown] insulin glargine U-300 conc 300 unit/mL (1.5 mL) subcutaneous pen 20 unit subcut QHS 08/14/21 [History Last Taken Unknown] dulaglutide 4.5 mg/0.5 mL subcutaneous pen injector (Trulicity) 4.5 mg subcut MO 08/06/23 [History Last Taken 12/07/23] verapamil 300 mg capsule 24hr pellet CT,ext.release 300 mg PO QHS 08/06/23 [History Last Taken Unknown] brimonidine 0.2 % eye drops 1 drp ophthalmic (eye) BID 12/11/23 [History Last Taken Unknown] calcium carbonate 600 mg-vitamin D3 5 mcg (200 unit) tablet (Calcium 600 + D(3)) 1 tab PO DAILY 12/11/23 [History Last Taken Unknown] lisinopril 40 mg tablet 20 mg PO DAILY HIG BLOOD PRESSURE 12/11/23 [History Last Taken Unknown] Allergy/AdvReac Type Severity Reaction Status Date / Time alendronate sodium AdvReac Severe myalgias Verified 12/11/23 07:49 [From Fosamax] amoxicillin [Amoxicillin] AdvReac Nausea/Vom/ Verified 12/11/23 07:49 Diarrhea metformin AdvReac Nausea/Vom/ Verified 12/11/23 07:49 Diarrhea shellfish derived AdvReac Nausea/Vom/ Verified 12/11/23 07:49 Diarrhea Family History Mother Hypertension Diabetes CVA (cerebral vascular accident) CAD (coronary artery disease) Father History of DVT (deep vein thrombosis) Surgical History (Reviewed 08/06/23 @ 09:44 by Skyler Bradley INSTRUMENT LENS GRINDER, INSTRUMENT LENS GRINDER-C) History of eyelid surgery (05/28/23) History of total abdominal hysterectomy Presence of coronary angioplasty implant and graft (~05/23/09) S/P lumpectomy, right breast Social History household members: family housing: house Smoking Status: Never smoker alcohol intake: never substance use type: does not use caffeine: Yes Type: coffee Number of servings: 2 ROS Constitutional Constitutional: Denies chills, fatigue, fever(s) or weakness Eyes Eyes: Denies change in vision ENT HEENT: Denies nasal congestion, nasal discharge, post nasal drip, sinus pressure or sore throat Cardiovascular Cardiovascular: Denies chest pain, dyspnea on exertion, edema or lightheadedness Respiratory/Chest Respiratory/Chest: Denies cough, shortness of breath at rest, shortness of breath with exertion or wheezing Gastrointestinal Gastrointestinal: Reports hematemesis, nausea and vomiting; Denies abdominal pa in, constipation or diarrhea Genitourinary Genitourinary: Denies dysuria Musculoskeletal Musculoskeletal: Reports other Details: Right sided rib pain noted. ; Denies arthralgias or back pain Neurologic Neurologic: Denies dizziness, focal weakness or headache(s) Physical Exam Const alert, oriented x3, no apparent distress and average body habitus Constitutional Narrative: Pleasant elderly female, sitting up comfortably in bedside chair, conversing normally, no acute distress. General Appearance: cooperative and comfortable HEENT normocephalic, head/scalp atraumatic, hearing grossly normal bilaterally, nasal mucous membranes and turbinates normal and moist oral mucous membranes Eyes PERRL, EOMs intact bilaterally and conjunctivae normal Neck full ROM, no lymphadenopathy and supple Lymph Lymphatic: no lymphadenopathy noted Chest inspection of chest normal Chest Narrative: Mild tenderness to palpation in right lower chest/rib area, no significant bruising noted. Resp normal respiratory effort, normal air movement, no use of accessory muscles and clear to auscultation bilaterally Cardio regular rate, regular rhythm, no murmurs and peripheral pulses 2+ throughout GI normal to inspection, nondistended, normoactive bowel sounds, soft to palpation, non-tender and non-distended Back/Spine normal ROM Extremity normal to inspection, full ROM and no pedal edema Skin no rashes or lesions noted Neuro moves all extremities and no focal motor deficits Speech: speech normal Psych mental status grossly normal Lab / Micro Data 12/11/23 15:26 12/11/23 08:10 Labs: Laboratory Results - last 24 hr 12/11/23 08:10: WBC 13.6 H, RBC 3.63 L, Hgb 10.8 L, Hct 33.1 L, MCV 91.2, MCH 29.8, MCHC 32.6, RDW Std Deviation 46.0 H, RDW Coeff of Emperatriz 13.6, Plt Count 244, MPV 10.3, Immature Gran % (Auto) 0.400, Neut % (Auto) 86.0 H, Lymph % (Auto) 7.0 L, [place] % (Auto) 6.2, Eos % (Auto) 0.1, Baso % (Auto) 0.3, Absolute Neuts (auto) 11.7 H, Absolute Lymphs (auto) 0.95, Nucleated RBC % 0, Sodium 140, Potassium 4.2, Chloride 103, Carbon Dioxide 27.0, Anion Gap 10, BUN 37 H, Creatinine 0.98, Est GFR (MDRD) Af Amer 70, Est GFR (MDRD) Non-Af 58 L, BUN/Creatinine Ratio 37.8 H, Glucose 317 H, Calcium 9.1, Total Bilirubin 0.40, AST 16, ALT 24, Alkaline Phosphatase 96, Total Protein 6.5, Albumin 3.1 L, Globulin 3.4, Albumin/Globulin Ratio 0.9, Blood Type A POSITIVE, Antibody Screen NEGATIVE 12/11/23 10:40: Urine Color Yellow, Urine Clarity Sl. Cloudy, Urine pH 5.0, Ur Specific [place] 1.015, Urine Protein 15 H, Urine Glucose (UA) 1000 H, Urine Ketones 150 A*, Urine Occult Blood Negative, Urine Nitrite Negative, Urine Bilirubin 1 H, Urine Urobilinogen Normal, Ur Leukocyte Esterase 25 H, Urine RBC 0-5 SEEN, Urine WBC 0-5 SEEN, Ur Squamous Epith Cells 0-5 SEEN, Urine Bacteria RARE, Urine Mucus 1+ 12/11/23 15:26: WBC 13.0 H, RBC 3.32 L, Hgb 10.0 L, Hct 30.7 L, MCV 92.5, MCH 30.1, MCHC 32.6, RDW Std Deviation 46.5 H, RDW Coeff of Emperatriz 13.7, Plt Count 234, MPV 10.4 12/11/23 16:35: POC Glucose 205 H 12/11/23 18:46: Hemoglobin A1c 8.2 H Rhythm Strip Rhythm Strip: sinus arrhythmia Rate: 95 Ectopy: None Imaging Radiology Impression Abdomen/Pelvis CT 12/11/23 08:21 IMPRESSION: 1. Nonspecific fluid-filled small bowel loops without evidence of small bowel obstruction. Enteritis is possible. 2. Focal stranding right lower quadrant extending from the cecum. Thickened appendix is doubtful. Follow-up exam is recommended if indicated. Electronically Signed: Bryan Belle MD at 10:05 EST , Chest X-Ray 12/11/23 09:15 IMPRESSION: Small right midlung nodules. If no previous examination is available for comparison, CT scan of the chest is recommended. Otherwise no active pulmonary disease. Electronically Signed: Bryan Belle MD at 10:07 EST , Assessment & Plan Assessment/Plan (1) UGIB (upper gastrointestinal bleed): (2) Acute blood loss anemia: PLAN: Plan Patient is a 78-year-old female who presented to [facility] ED on 12/11/2023 with hematemesis. Upper GI bleed differential diagnosis doesn't include Richa White's tear, b ecome a peptic ulcer disease, corazon, trauma, gastritis, esophagitis. Hemoglobin 10 on admit. Agree that her baseline is unknown,. CT abdomen pelvis showed focal stranding in right lower quadrant as well as nonspecific fluid-filled small bowel loops concerning for enteritis. Plan is for an EGD tomorrow. Keep NPO past midnight. Charges/Coding Visit Charges Inpatient E&M: 55033 Init Hosp L3
[2023-12-11] MEDS: Pravastatin 80 MG Tablet PO (22:04)
[2023-12-11] MEDS: BRIMONIDINE 0.2% 5ML BOTTLE 1 DRP OPHTHALMIC (22:04)
[2023-12-11 22:16] VITALS: BP 144/62; PULSE 86; RESP 18; TEMP 36.3; O2SAT 98
[2023-12-11 23:06] LABS: Bedside Glucose 185 mg/dL (74-106)
[2023-12-12] VITALS (10 sets, daily range): BP systolic 107–159; BP diastolic 51–70; PULSE 72–91; RESP 12–18; TEMP 36.2–37.2; O2SAT 92–100; BMI 24.3
[2023-12-12] MEDS: Pantoprazole Sodium 80 MG in 0.9% Normal Saline (100mL Bag) 80 ML 10 MG CONT INF ×2 (04:36→16:18)
[2023-12-12 05:54] LABS: Hematocrit 26.3 % (37-47); Hemoglobin 8.6 g/dL (12.0-15.0); Mean Corp Hgb Conc 32.7 g/dL (32-36); Mean Corpuscular Hgb 30.7 pg (27.0-32.0); Mean Corpuscular Volume 93.9 fL (81-99); Mean Platelet Vol. 10.1 fl (6.2-12.0); Platelet Count 181 K/mm3 (150-450); RBC Distribution Width CV 13.8 % (11.6-14.6); RBC Distribution Width SD 47.7 fl (35.1-43.9); White Blood Count 7.8 K/mm3 (4.4-11.0)
--- NOTE | 2023-12-12 05:55 | EKG12_ITS ---
Test Reason : AM EKG Blood Pressure : / mmHG Vent. Rate : 073 BPM Atrial Rate : 073 BPM P-R Int : 266 ms QRS Dur : 082 ms QT Int : 412 ms P-R-T Axes : 042 008 024 degrees QTc Int : 453 ms Sinus rhythm with 1st degree A-V block Cannot rule out Septal infarct , age undetermined Abnormal ECG When compared with ECG of 11-DEC-2023 08:35, MANUAL COMPARISON REQUIRED, DATA IS UNCONFIRMED Confirmed by Jacques Fortune ([id number]), editor farm journal KATH LOZANO ([id number]) on 12/15/2023 9:39:29 AM Referred By: Confirmed By:Jacques Fortune
[2023-12-12 06:12] LABS: Anion Gap 3 (5-15); BUN 35 mg/dL (7-18); Calcium,Total 8.6 mg/dL (8.5-10.1); Chloride 108 mmol/L (98-107); Creatinine, Serum 0.74 mg/dL (0.55-1.02); EST Glomerular Filtration Rate 80 mL/min (>60); Est Glom Filt Rate - Afr Amer 96 mL/min (>60); Estimated Creatinine Clearance 49.24 ml/min; Glucose 190 mg/dL (74-106); Potassium 3.6 mmol/L (3.5-5.1); Sodium Level 140 mmol/L (136-145)
[2023-12-12 07:07] LABS: Bedside Glucose 163 mg/dL (74-106)
[2023-12-12] MEDS: BRIMONIDINE 0.2% 5ML BOTTLE 1 DRP OPHTHALMIC ×2 (08:58→21:19)
[2023-12-12] MEDS: Pyridoxine HCl 100 MG Tablet PO (08:58)
[2023-12-12 10:19] LABS: Ferritin 187 ng/mL (8-252); Iron 85 ug/dL (50-170); Iron Binding Capacity,Total 237 ug/dL (250-450); PERCENT IRON SATURATION 35.9 % (15.0-55.0)
--- NOTE | 2023-12-12 11:20 | CASEMGMT ---
KRISTIAN IVORY Assessment: Face to Face with pt for initial transition planning/care coordination assessment. RN CACHORRO introduced self and role at [facility], pt voices understanding and consents to assessment. Pt is A&O x4 and answers all questions appropriately at this time. Pt lying in bed in no distress with nurse at bedside. Care providers, pharmacy, and demographics verified/updated. Admitting Dx: GI Bleed PCP:Darcy Specialists:Yolanda, eyes; BHARATHG, cardio Preferred Pharmacy: [facility] Insurance: [facility] Prescription Benefit: yes LNOK: Donita Mcfarland, dtr; Rachael Alvarez, granddtr Living Arrangements: Pt lives in a single story home with a flight of steps to enter from the basement without railing, with dtr in a mil suite. Pt reports she is I in ADL's and denies concerns at home. Transportation: Pt does not drive. She states her granddtr transports her to medical appts. DME:[facility] with sufficient supplies as well as insulin. Pt has access to w/c, crutches, FWW but does not use. HHC/SNF: Denies hx of Pt states no concerns with going home at time of dc. Pt states no further concerns/needs. CM to follow. Advised pt to ask CM if any further question/concerns/needs arise, voices understanding. Pt Goal: Home Plan: Home, therapy to eval
[2023-12-12 11:53] LABS: Bedside Glucose 161 mg/dL (74-106)
--- NOTE | 2023-12-12 12:29 | PN.HOSP_ITS ---
Reason for Visit Reason for Visit: Diagnoses Acute posthemorrhagic anemia (12/11/23) Gastrointestinal hemorrhage, unspecified (12/11/23) Subjective Subjective No acute events overnight. Patient seen at bedside this morning. Laying comfortably in bed, conversing normally, no acute distress. Was able to eat yesterday evening prior to midnight, has not been n.p.o. since then. Reports feeling hungry but otherwise denies any acute pain or discomfort. No further episodes of hematemesis since prior to admission. No other acute concerns this time. Objective Data Objective Data Vital Signs: Vital Signs Temp Pulse Resp BP Pulse Ox O2 Del Method 98.3 F 76 16 133/54 H 96 Room Air 12/12/23 11:23 12/12/23 11:23 12/12/23 11:23 12/12/23 11:23 12/12/23 11:23 12/12/23 11:23 Oxygen Delivery Method Room Air Weight: 64.1 kg Body Mass Index (BMI) 24.3 Intake & Output: Intake and Output for Last 24 Hours 12/10/23 12/11/23 12/12/23 23:59 23:59 23:59 Intake Total 1275 / 1515 313.83 / 313.83 Balance 1275 / 1515 313.83 / 313.83 Lab / Micro Data 12/12/23 05:22 12/12/23 05:22 Labs: Laboratory Results - last 24 hr 12/11/23 15:26: WBC 13.0 H, RBC 3.32 L, Hgb 10.0 L, Hct 30.7 L, MCV 92.5, MCH 30.1, MCHC 32.6, RDW Std Deviation 46.5 H, RDW Coeff of Emperatriz 13.7, Plt Count 234, MPV 10.4 12/11/23 16:35: POC Glucose 205 H 12/11/23 18:46: Hemoglobin A1c 8.2 H 12/11/23 22:06: POC Glucose 185 H 12/12/23 05:22: WBC 7.8, RBC 2.80 L, Hgb 8.6 L, Hct 26.3 L, MCV 93.9, MCH 30.7, MCHC 32.7, RDW Std Deviation 47.7 H, RDW Coeff of Emperatriz 13.8, Plt Count 181, MPV 10.1, Sodium 140, Potassium 3.6, Chloride 108 H, Carbon Dioxide 29.0, Anion Gap 3 L, BUN 35 H, Creatinine 0.74, Estim Creat Clear Calc 49.24, Est GFR (MDRD) Af Amer 96, Est GFR (MDRD) Non-Af 80, BUN/Creatinine Ratio 47.0 H, Glucose 190 H, Calcium 8.6, Iron 85, TIBC 237 L, Iron Saturation 35.9, Ferritin 187, Folate 16.00 12/12/23 06:29: POC Glucose 163 H 12/12/23 11:20: POC Glucose 161 H Rhythm Strip Rhythm Strip: sinus arrhythmia Rate: 95 Ectopy: None Physical Exam Const alert, oriented x3, no apparent distress and average body habitus Constitutional Narrative: Pleasant elderly female, laying comfortably in bed, conversing normally, no acute distress. General Appearance: cooperative and comfortable HEENT normocephalic, head/scalp atraumatic, hearing grossly normal bilaterally, nasal mucous membranes and turbinates normal and moist oral mucous membranes Eyes PERRL, EOMs intact bilaterally and conjunctivae normal Neck full ROM, no lymphadenopathy and supple Lymph Lymphatic: no lymphadenopathy noted Chest inspection of chest normal Chest Narrative: Mild tenderness to palpation in right lower chest/rib area, no significant bruising noted. Resp normal respiratory effort, normal air movement, no use of accessory muscles and clear to auscultation bilaterally Cardio regular rate, regular rhythm, no murmurs and peripheral pulses 2+ throughout GI normal to inspection, nondistended, normoactive bowel sounds, soft to palpation, non-tender and non-distended Back/Spine normal ROM Extremity normal to inspection, full ROM and no pedal edema Skin no rashes or lesions noted Neuro moves all extremities and no focal motor deficits Speech: speech normal Psych mental status grossly normal Assessment & Plan Assessment/Plan (1) UGIB (upper gastrointestinal bleed): (2) Acute blood loss anemia: PLAN: Plan Patient is a 78-year-old female who presented to [facility] ED on 12/11/2023 with hematemesis. 1. Hematemesis, acute blood loss anemia Suspect secondary to upper GI bleed. Recent fall forward onto chest in setting of Eliquis use may be contributing to patient's presentation. No significant history of GERD, no previous history of GI bleeds. Unclear if colonic findings on imaging are contributing to current presentation. Hemoglobin 10.8 on admit, baseline hemoglobin unclear, previous hemoglobin values in 12-13 range back in 2017. Elevated BUN to creatinine ratio of 37 noted. Chest x-ray on admit showed small right midlung nodules, otherwise no cardiopulmonary disease. CT abdomen pelvis showed focal stranding in right lower quadrant as well as nonspecific fluid-filled small bowel loops concerning for enteritis. Patient notably denies diarrhea or lower abdominal symptoms recently. ? GI following. Planning for EGD today. Continue IV PPI drip. Hemoglobin 8.6 on 12/12, will follow-up CBC tomorrow morning. Iron studies showed no iron d eficiency anemia, folate normal, B12 pending. Continue to hold home Eliquis. 2. Recent mechanical fall with right-sided rib pain ? Imaging on admit as noted above, no acute fractures or significant hematomas noted. PT/OT/case management following. Likely okay for home without any needs on discharge. Tylenol as needed for pain. 3. Mild leukocytosis, resolved ? WBC count 13 K on admit, improved to 7K on hospital day 2. Likely secondary to acute stress state. Following CBCs daily as noted above. 4. Type 2 diabetes mellitus with hyperglycemia ? Blood glucose 317 on admit. No recent A1c values found. Home regimen of Lantus 20 units at night, Trulicity weekly. Continue Lantus 15 units at night plus sliding scale insulin with meals, adjust as needed. Chronic medical conditions: ? Paroxysmal atrial fibrillation: Follows with cardiology in the office. Holding home Eliquis for now given GI bleed as noted above. Will also hold home verapamil for now, restart when able. ? History of CAD s/p stenting, hypertension, hyperlipidemia: Continue home statin, holding home lisinopril for now. ? History of breast carcinoma s/p lumpectomy DVT prophylaxis: SCDs CODE STATUS: Full code, verified Expected disposition: Home, 1 to 2 days Total clinical time spent by myself addressing the patient's medical issues, reviewing all the data, and collaborating with patient's care team: 35 minutes. Charges/Coding Visit Charges Inpatient E&M: 23495 Subs Hosp L2
[2023-12-12] MEDS: Lactated Ringers 1,000 ML 15 ML IV (12:54)
[2023-12-12] MEDS: Insulin Lispro 100 UNIT/ML INSULN.PEN SC (17:22)
[2023-12-12 17:41] LABS: Bedside Glucose 196 mg/dL (74-106)
[2023-12-12] MEDS: Pravastatin 80 MG Tablet PO (21:19)
[2023-12-12 21:46] LABS: Bedside Glucose 162 mg/dL (74-106)
[2023-12-13] MEDS: Pantoprazole Sodium 80 MG in 0.9% Normal Saline (100mL Bag) 80 ML 10 MG CONT INF (01:09)
[2023-12-13 04:20] VITALS: BP 117/50; PULSE 79; RESP 18; TEMP 36.5; O2SAT 99
[2023-12-13 06:37] LABS: Bedside Glucose 158 mg/dL (74-106)
[2023-12-13 07:30] VITALS: PULSE 78
[2023-12-13 07:33] LABS: Hematocrit 28.7 % (37-47); Hemoglobin 9.3 g/dL (12.0-15.0); Mean Corp Hgb Conc 32.4 g/dL (32-36); Mean Corpuscular Hgb 30.8 pg (27.0-32.0); Mean Platelet Vol. 10.4 fl (6.2-12.0); Platelet Count 189 K/mm3 (150-450); RBC Distribution Width CV 13.3 % (11.6-14.6); RBC Distribution Width SD 45.8 fl (35.1-43.9); Red Blood Count 3.02 M/mm3 (4.2-5.4); White Blood Count 8.4 K/mm3 (4.4-11.0)
--- NOTE | 2023-12-13 08:35 | NURSING ---
0825 Patient noted to be in Afib RVR, rate 150s while ambulating. This RN instructed patient to get back in bed. Patient then converted to SR at 0832. Denied pain, SOB or lightheadedness. VSBen HODGES notified.
[2023-12-13 08:41] VITALS: BP 172/94; PULSE 83; RESP 18; TEMP 36.7; O2SAT 97
[2023-12-13] MEDS: Pyridoxine HCl 100 MG Tablet PO (08:53)
[2023-12-13] MEDS: BRIMONIDINE 0.2% 5ML BOTTLE 1 DRP OPHTHALMIC (08:53)
[2023-12-13] MEDS: Pantoprazole Sodium 40 MG Tablet PO ×2 (10:36→18:01)
[2023-12-13] MEDS: Lisinopril 20 MG Tablet PO (10:36)
[2023-12-13] MEDS: dilTIAZem CD 180 MG Capsule PO (10:40)
[2023-12-13 11:00] VITALS: PULSE 74
[2023-12-13] MEDS: Insulin Lispro 100 UNIT/ML INSULN.PEN SC ×2 (12:05→17:33)
[2023-12-13 12:27] LABS: Bedside Glucose 247 mg/dL (74-106)
[2023-12-13 14:43] VITALS: BP 116/51; PULSE 78; RESP 18; TEMP 36.4; O2SAT 99
--- NOTE | 2023-12-13 15:25 | DCINST_ITS ---
Discharge Instructions Diet Discharge Diet: No restrictions Activity Discharge Activity: No Restrictions Weight Bearing Status: Full weight bearing Follow Up Care Test Results: Test results from this visit will be discussed in further detail at your follow- up appointment, if applicable. Discharge Plan Admission Admit Date/Time: 12/11/23 11:42 Primary Reason for Your Visit: GI bleed Attending Provider: Tahir Rivas Primary Care Provider: Santo Taveras Instructions Additional Instructions / Restrictions: Please start taking Protonix twice daily for your GI bleed. Continue all other home medications as normal. Follow-up with Dr. Ferrer in the office in the next few weeks. Discharge Orders/Prescriptions Prescriptions: New pantoprazole 40 mg Tablet,Delayed Release (Dr/Ec) 40 mg PO BID 30 Days Qty: 60 0RF Continued nitroglycerin 0.4 mg tablet, sublingual 0.4 mg sublingual Q5-15M PRN (Reason: chest pain) Qty: 90 6RF Eliquis 5 mg tablet 5 mg PO BID pravastatin 80 mg tablet 80 mg PO QHS cyanocobalamin (vitamin B-12) 1,000 mcg tablet 1,000 mcg PO DAILY pyridoxine (vitamin B6) 100 mg tablet 100 mg PO DAILY verapamil 300 mg capsule, [address] 300 mg PO QHS Trulicity 4.5 mg/0.5 mL pen injector 4.5 mg subcut MO Patient Comments: INJECT 4.5 MG SUBCUTANEOUSLY ONCE PER WEEK ON THURSDAY insulin glargine U-300 conc 300 unit/mL (1.5 mL) insulin pen 20 unit SC QHS brimonidine 0.2 % drops 1 drp ophthalmic (eye) BID Patient Comments: INSTILL 1 DROP INTO EACH EYE TWICE DAILY calcium carbonate-vitamin D3 [Calcium 600 + D(3)] 600 mg-5 mcg (200 unit) tablet 1 tab PO DAILY lisinopril 40 mg tablet 20 mg PO DAILY Referrals / Follow Up: Santo Taversa MD [Primary Care Provider] - Disposition Disposition (needs filled in before D/C Order can be placed): Home, Self Care
--- NOTE | 2023-12-13 15:28 | PCM.DC.SUM ---
Providers Date of Admission: 12/11/23 Date of Discharge: 12/13/23 Primary Care Physician: Dr. Santo Taveras MD Consultations 12/11/23 12:20 Consult: Gastroenterology Routine Consulting Provider: [facility] Reason for Consult: GI bleed EMERGENT Consult: No MD Notified: Yes Date Notified: 12/11/23 Time Notified: 11:48 Method of Notification: Text Reason For Visit: GI BLEED Diagnosis Discharge Diagnosis (1) UGIB (upper gastrointestinal bleed): Status: Acute Code(s): K92.2 - Gastrointestinal hemorrhage, unspecified (2) Acute blood loss anemia: Status: Acute Code(s): D62 - Acute posthemorrhagic anemia Medications at Discharge Home Medications apixaban 5 mg tablet (Eliquis) 5 mg PO BID a.fib 09/06/19 cyanocobalamin (vitamin B-12) 1,000 mcg tablet 1,000 mcg PO DAILY 09/06/19 pravastatin 80 mg tablet 80 mg PO QHS 09/06/19 pyridoxine (vitamin B6) 100 mg tablet 100 mg PO DAILY 09/06/19 nitroglycerin 0.4 mg sublingual tablet 0.4 mg sublingual Q5-15M PRN chest pain #90 tabs 09/08/19 insulin glargine U-300 conc 300 unit/mL (1.5 mL) subcutaneous pen 20 unit subcut QHS 08/14/21 dulaglutide 4.5 mg/0.5 mL subcutaneous pen injector (Trulicity) 4.5 mg subcut MO 08/06/23 verapamil 300 mg capsule [address] pellet [address],ext.release 300 mg PO QHS 08/06/23 brimonidine 0.2 % eye drops 1 drp ophthalmic (eye) BID 12/11/23 calcium carbonate 600 mg-vitamin D3 5 mcg (200 unit) tablet (Calcium 600 + D(3)) 1 tab PO DAILY 12/11/23 lisinopril 40 mg tablet 20 mg PO DAILY HIG BLOOD PRESSURE 12/11/23 pantoprazole 40 mg tablet,delayed release 40 mg PO BID 30 days #60 tabs 12/13/23 Hospital Course Operations None Procedures EGD, EKG and - (Chest x-ray, CT abdomen pelvis) Summary of Care Provided Minutes Spent on Discharge: 35 Hospital Course: Patient is a 78-year-old female who presented to [facility] ED on 12/11/2023 with hematemesis. Hospital course as noted below. Patient discharged home in stable condition on 12/13. 1. Hematemesis secondary to upper GI bleed, Acute blood loss anemia Suspect secondary to upper GI bleed. Recent fall forward onto chest in setting of Eliquis use may be contributing to patient's presentation. No significant history of GERD, no previous history of GI bleeds. Unclear if colonic findings on imaging are contributing to current presentation. Hemoglobin 10.8 on admit, baseline hemoglobin unclear, previous hemoglobin values in 12- range back in 2017. Elevated BUN to creatinine ratio of 37 noted. Chest x-ray on admit showed small right midlung nodules, otherwise no cardiopulmonary disease. CT abdomen pelvis showed focal stranding in right lower quadrant as well as nonspecific fluid-filled small bowel loops concerning for enteritis. Patient notably denies diarrhea or lower abdominal symptoms recently. ? GI followed. 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 Hemoglobin 8.6 on 12/12, repeat hemoglobin 9.3 after EGD on 12/13. Iron studies showed no iron deficiency anemia, folate was normal, B12 pending on discharge. Continue p.o. PPI twice daily on discharge. Okay to resume home Eliquis on discharge as well. Follow-up with GI in the office in the next few weeks. 2. Recent mechanical fall with right-sided rib pain ? Imaging on admit as noted above, no acute fractures or significant hematomas noted. PT/OT/case management followed. Tylenol as needed for pain. Okay for home without any needs on discharge. 3. Mild leukocytosis, resolved ? WBC count 13 K on admit, improved to 7K on hospital day 2. Likely secondary to acute stress state. No need to monitor further. 4. Type 2 diabetes mellitus with hyperglycemia ? Blood glucose 317 on admit. A1c 8.2% on admit, no recent A1c values found. Home regimen of Lantus 20 units at night, Trulicity weekly. Hyperglycemia improved during admission with Lantus 15 units at night plus sliding scale insulin with meals. Okay to resume home regimen on discharge. Chronic medical conditions: ? Paroxysmal atrial fibrillation: Follows with cardiology in the office. Okay to resume home Eliquis and verapamil on discharge. ? History of CAD s/p stenting, hypertension, hyperlipidemia: Continue home statin, okay to resume home lisinopril on discharge. ? History of breast carcinoma s/p lumpectomy Total clinical time spent by myself addressing the patient's discharge needs: 35 minutes. Physical Exam Const alert, oriented x3, no apparent distress and average body habitus Constitutional Narrative: Pleasant elderly female, laying comfortably in bed, conversing normally, no acute distress. General Appearance: cooperative and comfortable HEENT normocephalic, head/scalp atraumatic, hearing grossly normal bilaterally, nasal mucous membranes and turbinates normal and moist oral mucous membranes Eyes PERRL, EOMs intact bilaterally and conjunctivae normal Neck full ROM, no lymphadenopathy and supple Lymph Lymphatic: no lymphadenopathy noted Chest inspection of chest normal Chest Narrative: Mild tenderness to palpation in right lower chest/rib area, no significant bruising noted. Resp normal respiratory effort, normal air movement, no use of accessory muscles and clear to auscultation bilaterally Cardio regular rate, regular rhythm, no murmurs and peripheral pulses 2+ throughout GI normal to inspection, nondistended, normoactive bowel sounds, soft to palpation, non-tender and non-distended Back/Spine normal ROM Extremity normal to inspection, full ROM and no pedal edema Skin no rashes or lesions noted Neuro moves all extremities and no focal motor deficits Speech: speech normal Psych mental status grossly normal Weight / BMI Weight Weight: 64.1 kg Body Mass Index (BMI) 24.3 ABG / Lab / Microbiology Data 12/13/23 06:42 12/12/23 05:22 Laboratory: Laboratory Results - last 24 hr 12/12/23 17:21: POC Glucose 196 H 12/12/23 21:16: POC Glucose 162 H 12/13/23 06:17: POC Glucose 158 H 12/13/23 06:42: WBC 8.4, RBC 3.02 L, Hgb 9.3 L, Hct 28.7 L, MCV 95.0, MCH 30.8, MCHC 32.4, RDW Std Deviation 45.8 H, RDW Coeff of Emperatriz 13.3, Plt Count 189, MPV 10.4 12/13/23 12:04: POC Glucose 247 H D/C Instructions Discharge Diet: No restrictions Weight Bearing Status: Full weight bearing Meaningful Use Info Meaningful Use Diagnoses (Choose all that apply): None applicable Discharge Plan Admission Admit Date/Time: 12/11/23 11:42 Primary Reason for Your Visit: GI bleed Attending Provider: Tahir Rivas Primary Care Provider: Santo Taveras Instructions Additional Instructions / Restrictions: Please start taking Protonix twice daily for your GI bleed. Continue all other home medications as normal. Follow-up with Dr. Ferrer in the office in the next few weeks. Discharge Orders/Prescriptions Prescriptions: New pantoprazole 40 mg Tablet,Delayed Release (Dr/Ec) 40 mg PO BID 30 Days Qty: 60 0RF Continued nitroglycerin 0.4 mg tablet, sublingual 0.4 mg sublingual Q5-15M PRN (Reason: chest pain) Qty: 90 6RF Eliquis 5 mg tablet 5 mg PO BID pravastatin 80 mg tablet 80 mg PO QHS cyanocobalamin (vitamin B-12) 1,000 mcg tablet 1,000 mcg PO DAILY pyridoxine (vitamin B6) 100 mg tablet 100 mg PO DAILY verapamil 300 mg capsule, [address] 300 mg PO QHS Trulicity 4.5 mg/0.5 mL pen injector 4.5 mg subcut MO Patient Comments: INJECT 4.5 MG SUBCUTANEOUSLY ONCE PER WEEK ON THURSDAY insulin glargine U-300 conc 300 unit/mL (1.5 mL) insulin pen 20 unit SC QHS brimonidine 0.2 % drops 1 drp ophthalmic (eye) BID Patient Comments: INSTILL 1 DROP INTO EACH EYE TWICE DAILY calcium carbonate-vitamin D3 [Calcium 600 + D(3)] 600 mg-5 mcg (200 unit) tablet 1 tab PO DAILY lisinopril 40 mg tablet 20 mg PO DAILY Referrals / Follow Up: Santo Taveras MD [Primary Care Provider] - Disposition Disposition (needs filled in before D/C Order can be placed): Home, Self Care Charges/Coding Visit Charges Inpatient E&M: 45592 Disch Hosp >30min
[2023-12-13 15:30] VITALS: PULSE 80
[2023-12-13 17:50] LABS: Bedside Glucose 191 mg/dL (74-106)
[2023-12-14 08:55] LABS: Vitamin B12 1452 pg/mL (211-911)
--- NOTE | 2023-12-15 16:32 | OP.EGD_ITS ---
Patient Name: Kellie Dozier Procedure Date: 12/12/2023 1:16 PM Date of : 1945 Age: 78 Procedure: Upper GI endoscopy Indications: Melena Providers: Cullen Ferrer DO Medicines: Monitored Anesthesia Care Patient Profile: This is a 78 year old female. Refer to note in patient chart for documentation of history and physical. Patient has symptoms of acute vomiting. Complications: No immediate complications. Procedure: Pre-Anesthesia Assessment: - Prior to the procedure, a History and Physical was performed, and patient medications and allergies were reviewed. The patient is competent. The risks and benefits of the procedure and the sedation options and risks were discussed with the patient. All questions were answered and informed consent was obtained. Patient identification and proposed procedure were verified by the physician in the pre-procedure area. Mental Status Examination: alert and oriented. Airway Examination: normal oropharyngeal airway and neck mobility. Respiratory Examination: clear to auscultation. CV Examination: normal. Prophylactic Antibiotics: The patient does not require prophylactic antibiotics. Prior Anticoagulants: The patient has taken Eliquis (apixaban), last dose was 1 day prior to procedure. ASA Grade Assessment: III - A patient with severe systemic disease. After reviewing the risks and benefits, the patient was deemed in satisfactory condition to undergo the procedure. The anesthesia plan was to use monitored anesthesia care (MAC). Immediately prior to administration of medications, the patient was re-assessed for adequacy to receive sedatives. The heart rate, respiratory rate, oxygen saturations, blood pressure, adequacy of pulmonary ventilation, and response to care were monitored throughout the procedure. The physical status of the patient was re-assessed after the procedure. After obtaining informed consent, the endoscope was passed under direct vision. Throughout the procedure, the patient's blood pressure, pulse, and oxygen saturations were monitored continuously. The gastroscope was introduced through the mouth, and advanced to the second part of duodenum. The upper GI endoscopy was accomplished without difficulty. The patient tolerated the procedure well. Scope In: 1:25:22 PM Scope Out: 1:29:53 PM Total Procedure Duration Time 0 hours 4 minutes 31 seconds Findings: The examined esophagus was normal. One oozing cratered gastric ulcer with pigmented material was found on the greater curvature of the stomach. The lesion was 6 mm in largest dimension. Area was successfully injected with 5 mL of a 0.1 mg/mL solution of epinephrine for drug delivery. To stop active bleeding, hemostatic spray was deployed. Five sprays were applied. There was no bleeding at the end of the procedure. Coagulation for hemostasis using heater probe was successful. Estimated blood loss was minimal. No gross lesions were noted in the first portion of the duodenum. One 5 mm angiodysplastic lesion with bleeding was found in the first portion of the duodenum. Coagulation for hemostasis using argon plasma at 0.3 liters/minute and 20 keller was successful. Estimated blood loss was minimal. Impression: - Normal esophagus. - Oozing gastric ulcer with pigmented material. Injected. hemostatic spray applied. Treated with a heater probe. - No gross lesions in the first portion of the duodenum. - No specimens collected. Recommendation: - Return patient to hospital chan for ongoing care. - NPO. - Continue present medications. Procedure Code(s): --- Professional --- 79728, Esophagogastroduodenoscopy, flexible, transoral; with control of bleeding, any method 77586, 59,51, Esophagogastroduodenoscopy, flexible, transoral; with directed submucosal injection(s), any substance CPT copyright 2021 [employer]. All rights reserved. The codes documented in this report are preliminary and upon research manager review may be revised to meet current compliance requirements. Cullen Ferrer DO 12/15/2023 4:32:31 PM This report has been signed electronically. Number of Addenda: 0 Note Initiated On: 12/12/2023 1:16 PM
--- NOTE | 2023-12-15 16:32 | OP.CCLET_ITS ---
12/15/2023 [place] [facility] : Upper GI endoscopy procedure for Kellie Jacksonr Darcy This procedure was performed on Tuesday, December 12, 2023. My impressions and recommendations are as follows: Impressions : - Normal esophagus. - Oozing gastric ulcer with pigmented material. Injected. hemostatic spray applied. Treated with a heater probe. - No gross lesions in the first portion of the duodenum. - No specimens collected. Recommendations : - Return patient to hospital chan for ongoing care. - NPO. - Continue present medications. My findings are described in the full procedure note, which is enclosed. If I can be of further assistance, please feel free to contact me at . Sincerely, Cullen Ferrer DO 12/15/2023 4:32:31 PM This report has been signed electronically.
== END 2023-12-13 18:21 | disposition home or self-care (01) | DRG 378 ==
LOC: ED 10:42 → PCU 11:51
PROVIDERS: Internal Medicine Gastroenterology; Admitting Provider Hospitalist; Emergency Provider Emergency Medicine; PCP Family Medicine; Visit Provider Hospitalist
PROC: 0DJ08ZZ Inspection of Upper Intestinal Tract, Via Natural or Artificial Opening Endoscopic (ICD-10-PCS; CPT 43235; principal; 2023-12-12 12:30)
DX: K25.4 Chronic or unspecified gastric ulcer with hemorrhage (principal); D62 Acute posthemorrhagic anemia; K55.21 Angiodysplasia of colon with hemorrhage; E11.65 Type 2 diabetes mellitus with hyperglycemia; I48.0 Paroxysmal atrial fibrillation; Z79.4 Long term (current) use of insulin; I10 Essential (primary) hypertension; I25.10 Atherosclerotic heart disease of native coronary artery without angina pectoris; E78.00 Pure hypercholesterolemia, unspecified; S00.93XA Contusion of unspecified part of head, initial encounter; K52.9 Noninfective gastroenteritis and colitis, unspecified; S20.211A Contusion of right front wall of thorax, initial encounter; W18.30XA Fall on same level, unspecified, initial encounter; I25.2 Old myocardial infarction; Y93.K1 Activity, walking an animal; Z79.01 Long term (current) use of 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; Z79.85 Long-term (current) use of injectable non-insulin antidiabetic drugs; Z79.899 Other long term (current) drug therapy; Z95.5 Presence of coronary angioplasty implant and graft
CPT/HCPCS: 36415; 71045; 74177; 80048; 80053; 81001; 82607; 82728; 82746; 82962; 83036; 83540; 83550; 85025; 85027; 86850; 86900; 86901; 93005; 94668; 97161; 99252; 99284; J7030; J7120; Q9967; A4216; G0463; J2405; J3490

== ENCOUNTER 2023-12-15 05:36 | Inpatient (IN) | payer MEDICARE, SELFPAY ==
[2023-12-15] VITALS (20 sets, daily range): BP systolic 86–143; BP diastolic 46–80; PULSE 90–144; RESP 14–18; TEMP 36.2–37.7; O2SAT 93–100; BMI 26.1; BMI 23.6
--- OUTSIDE RECORDS SUMMARY | 2023-12-15 05:50 | XMS RPT_ITS | CCD ---
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 Name Role Phone JOLIE MARCELONETH E Unavailable Unavailable DAVIAN, BHARATH E Unavailable Unavailable TAY ALLISON Unavailable Unavail able DAVIAN, BHARATH Unavailable Unavailable DAVIAN, BHARATH Unavailable Unavailable Kate, Santo Unavailable Unavailable DAVIAN, BHARATH Unavailable Unavailable DAVIAN, BHARATH Unavailable Unavailable Vera Cruz, Santo Unavailable Unavailable Vera Cruz, Santo Unavailable Unavailable [facility] Unavailable Unavailable JOSE MEYER Admitting Unavailable JOSE MEYER Primary Care Unavailable JOSE MEYER Attending Unavailable KATE, SANTO Consulting Unavailable KATE, SANTO Referring Unavailable PROVIDER, UNKNOWN Consulting Unavailable KATE, SANTO Consulting Unavailable HORACIO ROSENTHAL Admitting Unavailable HORACIO ROSENTHAL Primary Care Unavailable HORACIO ROSENTHAL Attending Unavailable PROVIDER, UNKNOWN Consulting Unavailable Santo Taveras MD Primary Care Provider [facility], Jenny Unavailable [facility], Keti Unavailable Santo Taveras MD Primary Care Provider [facility], Jenny Unavailable [facility], Keti Unavailable Santo Taveras MD Primary Care Provider [facility], Jenny Unavailable [facility], Keti Unavailable Santo Taveras MD Primary Care Provider [facility], Jenny Unavailable [facility], Keti Unavailable [facility], Keti Unavailable SANTO TAVERAS Primary Care Unavailable SANTO TAVERAS Referring Unavailable SANTO TAVERAS Primary Care Unavailable SANTO TAVERAS Attending Unavailable SANTO TAVERAS Primary Care Unavailable SANTO TAVERAS Referring Unavailable KATE, SANTO Evans Primary Care Unavailable SANTO TAVERAS Attending Unavailable Talya RODRIGUEZ Attending Unavailable SANTO TAVERAS Primary Care Unavailable SANTO TAVERAS Primary Care Unavailable Talya RODRIGUEZ Referring Unavailable SATNO TAVERAS Primary Care Unavailable Talya RODRIGUEZ Attending Unavailable SANTO TAVERAS Primary Care Unavailable TRANG MCKEON Referring Unavailable KATE, SANTO Evans Primary Care Unavailable KATE, SANTO Evans Primary Care Unavailable KATE, SANTO Evans Referring Unavailable Allergies Allergy Classification Reported Allergen(s) Allergy Type Date of Onset Reaction(s) Facility (20 sources) alendronate; Translations: [ALENDRONATE SODIUM] Drug Allergy 8 Other: See Comments [facility] Repository (20 sources) amoxicillin; Translations: [AMOXICILLIN] Drug Allergy 7 Diarrhea [facility] Repository (20 sources) metFORMIN; Translations: [METFORMIN] Drug Allergy 7 Diarrhea [facility] Repository (20 sources) Shellfish; Translations: [SHELLFISH] Propensity to adverse reactions to food (disorder) 8 Diarrhea, Vomiting [facility] Repository Medications Current Medications Medication Drug Class(es) [...] disease (20 sources) Atherosclerotic heart disease of [place] coronary artery without angina pectoris; Translations: [Coronary [...] sources) Long-term current use of anticoagulant; Translations: [jail (current) use of 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] Onset: 01-10-2017 01-10-2017 Episodic Other aftercare (1 source) jail (current) use of 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; Translations: [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] Onset: 01-10-2017 Episodic Other aftercare (1 source) Other jail (current) drug therapy; Translations: [Current use of [...] 162.6 cm Santo Taveras MD Work Phone: [facility] 05-07-2023 10:43-0400 Body weight 65.41 kg Santo Taveras MD Work Phone: [facility] 05-07-2023 10:43-0400 Diastolic blood pressure 52 mm[Hg] Santo Taveras MD Work Phone: [facility] 05-07-2023 10:43-0400 Heart rate 65 /min Santo Taveras MD Work Phone: [facility] 05-07-2023 10:43-0400 SaO2% (BldA) [Mass fraction] 97 % Santo Taveras MD Work Phone: [facility] 05-07-2023 10:43-0400 Systolic blood pressure 106 mm[Hg] Santo Taveras MD Work Phone: [facility] 01-29-2023 10:19-0400 Body weight 64.41 kg Santo Taveras MD Work Phone: [facility] 01-29-2023 10:19-0400 Diastolic blood pressure 62 mm[Hg] Santo Taveras MD Work Phone: [facility] 01-29-2023 10:19-0400 Heart rate 70 /min Santo Taveras MD Work Phone: [facility] 01-29-2023 10:19-0400 SaO2% (BldA) [Mass fraction] 97 % Santo Taveras MD Work Phone: [facility] 01-29-2023 10:19-0400 Systolic blood pressure 112 mm[Hg] Santo Taveras MD Work Phone: [facility] 01-01-2023 10:18-0500 Body temperature 97.2 [degF] NA Rodriguez PA-C Work Phone: [facility] 01-01-2023 10:18-0500 Body weight 63.5 kg NA Rodriguez PA-C Work Phone: [facility] 01-01-2023 10:18-0500 Diastolic blood pressure 82 mm[Hg] NA Rodriguez PA-C Work Phone: [facility] 01-01-2023 10:18-0500 Heart rate 76 /min NA Rodriguez PA-C Work Phone: [facility] 01-01-2023 10:18-0500 Respiratory rate 16 /min NA Rodriguez PA-C Work Phone: [facility] 01-01-2023 10:18-0500 SaO2% (BldA) [Mass fraction] 96 % NA Rodriguez PA-C Work Phone: [facility] 01-01-2023 10:18-0500 Systolic blood pressure 166 mm[Hg] NA Rodriguez PA-C Work Phone: [facility] 11-27-2022 09:01-0500 Diastolic blood pressure 71 mm[Hg] Mi Nurse Work Phone: [facility] 11-27-2022 09:01-0500 Heart rate 71 /min Mi Nurse Work Phone: [facility] 11-27-2022 09:01-0500 Systolic blood pressure 164 mm[Hg] Mi Nurse Work Phone: [facility] 10-02-2022 09:14-0500 Body weight 62.14 kg Santo Taveras MD Work Phone: [facility] 10-02-2022 09:14-0500 Diastolic blood pressure 72 mm[Hg] Santo Taveras MD Work Phone: [facility] 10-02-2022 09:14-0500 Heart rate 74 /min Santo Taveras MD Work Phone: [facility] 10-02-2022 09:14-0500 SaO2% (BldA) [Mass fraction] 99 % Santo Taveras MD Work Phone: [facility] 10-02-2022 09:14-0500 Systolic blood pressure 126 mm[Hg] Santo Taveras MD Work Phone: [facility] 07-17-2022 09:43-0400 Diastolic blood pressure 68 mm[Hg] Mi Nurse Work Phone: [facility] 07-17-2022 09:43-0400 Heart rate 74 /min Mi Nurse Work Phone: [facility] 07-17-2022 09:43-0400 Systolic blood pressure 113 mm[Hg] Mi Nurse Work Phone: [facility] 06-27-2022 11:50-0400 SaO2% (BldA) [Mass fraction] 99 % NA Rodriguez PA-C Work Phone: [facility] 06-27-2022 11:32-0400 Diastolic blood pressure 40 mm[Hg] NA Rodriguez PA-C Work Phone: [facility] 06-27-2022 11:32-0400 Systolic blood pressure 78 mm[Hg] NA Rodriguez PA-C Work Phone: [facility] 06-27-2022 11:07-0400 Body weight 60.33 kg NA Rodriguez PA-C Work Phone: [facility] 06-27-2022 11:07-0400 Heart rate 78 /min NA Rodriguez PA-C Work Phone: [facility] 06-27-2022 11:07-0400 Respiratory rate 14 /min NA Rodriguez PA-C Work Phone: [facility] Encounters Encounter Date Encounter Type Care Provider Facility Start: 11-12-2023 End: 11-13-2023 ambulatory Talay RODRIGUEZ Facility:[facility] Start: 11-12-2023 End: 11-13-2023 ambulatory Talya RODRIGUEZ Facility:[facility] Start: 11-03-2023 End: 11-04-2023 ambulatory [facility] Facility:[facility] Start: 09-30-2023 Refill Santo Taveras MD Work Phone: [facility] Procedures Date Procedure Procedure Detail Performing Clinician [...] Activity Detail Author Start: 09-17-2024 Colonoscopy COLONOSCOPY [facility] Start: 05-14-2024 Hepatitis C antibody , confirmatory test DILATED RETINAL EXAM [facility] Start: 05-07-2024 3 comp foot exam completed DIABETIC FOOT EXAM [facility] Start: 05-07-2024 ANNUAL PCP TEAM CHEMICAL ETCH OPERATOR ABRAM DISEASE VISIT ANNUAL PCP TEAM CHRONIC DISEASE VISIT [facility] Start: 05-07-2024 BP CONTROLLED (<130/80) BP CONTROLLE D (<130/80) [facility] Start: 01-30-2024 ANNUAL PCP TEAM CHEMICAL ETCH OPERATOR ABRAM DISEASE VISIT ANNUAL PCP TEAM CHRONIC DISEASE VISIT [facility] Start: 01-30-2024 BP CONTROLLED (<130/80) BP CONTROLLE D (<130/80) [facility] Start: 01-30-2024 COVID-19 VACCINE (#1) COVID-19 VACCI NE (#1) [facility] Immunizations Immunization Date Immunization Notes Care Provider Zehra staton 06-24-2019 influenza virus vacc ine, unspecified formulation Herlinda Dickinson PILE TRIMMER [facility] 09-18-2015 influenza, high dose seasonal, preservative-free Santo Taveras MD Work Phone: [facility] 09-18-2015 pneumococcal conjuga te vaccine, 13 valent Santo Taveras MD Work Phone: [facility] 07-28-2014 influenza, high dose seasonal, preservative-free Santo Taveras MD Work Phone: [facility] 10-14-2013 influenza virus vacc ine, unspecified formulation Santo Taveras MD Work Phone: [facility] 10-13-2012 influenza virus vacc ine, unspecified formulation Santo Taveras MD Work Phone: [facility] 06-13-2011 zoster vaccine, live Santo Taveras MD Work Phone: [facility] Work Phone: 06-12-2009 pneumococcal polysaccharide vaccine, 23 valent Santo Taveras MD Work Phone: [facility] Work Phone: 04-13-2007 tetanus toxoid, redu fatemeh diphtheria toxoid, and acellular pertussis vaccine, adsorbed Santo Taveras MD Work Phone: [facility] Work Phone: Payers Date Payer Category Payer Medicare [id number] 2018 Unknown ANTHEM BLUE CROS S AND BLUE SHIELD ANTHEM MEDIBLUE O [id number] 2018-Present [id number] [place], [place] [address]O [id number] 2018 Unknown ANTHEM BLUE CROS S AND BLUE SHIELD ANTHEM MEDIBLUE O [id number] 2018-Present [phone] [id number] [place], [place] [id number] O [id number] 2018 Unknown [id number] 1945 Unknown [id number] 1945 Unknown [id number] Unknown [id number] Social History Date Type Detail Facility Start: 11-28-2014 End: 07-17-2022 Tobacco smoking status NHIS Never smoked tobacco [facility] Work Phone: Start: 12-18-2021 End: 05-07-2023 Alcohol intake Current non-drinker of alcohol (finding) [facility] Start: 1945 Sex Assigned At Not on file [facility] Start: 03-14-2022 End: 10-02-2022 Exposure to SARS-CoV-2 (event) Not sure [facility] Start: 11-28-2014 End: 07-17-2022 Tobacco use and exposure Smokeless tobacco non-user [facility] Start: 01-29-2023 End: 05-07-2023 History of Social function [facility] Work Phone: Start: 01-29-2023 End: 05-07-2023 Tobacco use panel [facility] Work Phone: Adult Depression Screening Assessment 0 [facility] Work Phone: Medical Equipment Procedure Code Equipment Code Equipment Origin al Text Equipment Identifier Dates Use as directed once daily as directed DM: yes Insulin: yes DX: [id number] Start: 10-19-2019 Clinical Notes 03-26-2018 to 11-12-2023 Telephone Encounter - [place] Lazara Mosley - 09/30/2023 8:36 AM ESTTelephone Encounter - Herlinda Dickinson MSW - 07/22/2023 11:10 AM [employer] - 07/02/2023 8:30 AM EDT Note Date & Type Note Facility 11-12-2023 Note HNO ID: [id number] Author: Talya RODRIGUEZ PA-C Service: ? Author Type: Physician Equity Research Associate Type: Progress Notes Filed: 11/12/2023 12:27 Note Text: 78 year old female with c/o here for 6 month follow up Doing well aside from stress Lives with daughter who is . No vertigo since 03/24/2023 Nonrheumatic mitral valve regurgitation (primary encounter diagnosis) Persistent atrial fibrillation (hcc) Paroxysmal svt (supraventricular tachycardia) (hcc) jail current use of anticoagulant Atherosclerosis of coronary artery of [place] heart without angina pectoris, unspecified vessel or lesion type Essential hypertension Mixed hyperlipidemia Patch Driller: [place] Cardiovascular interval hx: none 06/27/2022 EKG: Sinus rhythm with first-degree AV block with premature SVCs with occasional PVC, low voltage QRS consider pulmonary disease, pericardial effusion, or normal variant, possible septal infarct age-indeterminate 09/12/2021 exercise tolerance stress test [facility]: Shade protocol for 2 minutes and 54 [...] Lymph 1.00 - 4.00 k/uL 2.03 1.78 Latimer% % 9.9 9.3 Abs Latimer <0.87 k/uL 0.78 0.73 Eosin% % 1.8 [...] Any visual di (more content not included)... [facility] 09-30-2023 Miscellaneous Notes Patient has been identified [...] patient. Lazara Mosley documented in this encounter [facility] 07-22-2023 Miscellaneous Notes Rambo called Sw and noted that she did not receive [employer] application for Bottle. Rambo noted that she will mail application again to patient to work on completing. Patient notes that she will work on completing and bring in to Dr. Taveras office when complete. documented in this encounter [facility] 07-02-2023 Note HNO ID: [id number] Author: Mary Hammer Mammo Tech Service: ? Author Type: Outboard Technician Type: Progress Notes Filed: 07/02/2023 8:49 AM [...] Porfirio Walden July 02, 2023 8:28 AM [facility] 07-02-2023 History of Present illness Narrative Radiology [...] IV DATA: Not applicable SIGNED BY: Angelic [email or web address] Delfino July 02, 2023 8:28 AM documented in this encounter [facility] 06-29-2023 Miscellaneous Notes Patient phones requesting refills [...] Dafne Sams [employer] documented in this encounter [facility] 05-08-2023 Miscellaneous Notes Kellie informed and verbalized understanding. Tierney White Labs are up. Increase trulicity. Recheck a1c in three months. Watch diet. documented in this encounter [facility] 05-07-2023 Note HNO ID: [id number] Author: Santo Taveras MD Service: ? Author [...] bouts of vertigo. 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 Last episode of vertigo was on 03/24/23. Only lasts for a day and has happened twice. No neuro issues. Red flags for re-assessment reviewed with patient in detail. Consider vestibular therapy. HLD: No myalgias Follows with Cardiology. Still on Eliquis and Verapamil. Having eyelid lift surgery on 05/28/[address] Richardson at [facility]. Component Latest Ref Rng AND Units 01/29/2023 [...] percutaneous left heart catheterization 06/24/11 done [place] Malignant neoplasm of breast (female), unspecified site [...] 06/11/2007 LEFT TO (more content not included)... [facility] 05-07-2023 History of Present illness Narrative Patient [...] bouts of vertigo. 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 Last episode of vertigo was on 03/24/23. Only lasts for a day and has happened twice. No neuro issues. Red flags for re-assessment reviewed with patient in detail. Consider vestibular therapy. HLD: No myalgias Follows with Cardiology. Still on Eliquis and Verapamil. Having eyelid lift surgery on 05/28/[address] Richardson at [facility]. Component Latest Ref Rng & Units 01/29/2023 [...] percutaneous left heart catheterization 06/24/11 done at [place] Malignant neoplasm of breast (female), unspecified site 1998 Breast cancer right OBESITY 12/16/2005 Osteoarthritis of right knee Osteopenia 05/21/2010 Paroxysmal SVT (supraventricular tachycardia) ([facility]) Dr Marcelo Pure hypercholesterolemia TUBERCULIN TEST REACTION [...] rectum repair COLON SURGERY HX COLONOSCOPY 2006 [facility] COLONOSCOPY 09/12/2014 no polyps, repeat due [...] BASIC METABOLIC PNL - HGB A1C 6. 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 - ICD9: V58.61, ICD10: Z79.01 - stable 7. Osteopenia, unspecified location - ICD9: 733.90, ICD10: M85.80 Up to date on bone density. 8. Malignant neoplasm of female breast, unspecified estrogen receptor status, unspecified laterality, unspecified site of breast (HCC) - ICD9: 174.9, ICD10: C50.919 - mammogram Santo Taveras MD documented in this encounter [facility] 03-06-2023 Note Patient Outreach ( PO) KELLIE DOZIER ([id number]) 1945 F NFR Date Time Provider Department 03/06/23 SANTO TAVERAS During your visit today, we recorded the following information about you: Nathaniel Brownlee 03/06/2023 12:02 PM Signed Kellie Dozier is identified through a medication adherence outreach initiative based on pharmacy claims data from [email or web address] (insurer) for SERA medication(s) and Statin medication(s). [...] [D12.6] 10/17/2011 10/02/2022 Diverticulitis [K57.92] 10/24/2011 10/02/2022 jail current use of anticoagulant [Z79.01]01/10/2017 Persistent atrial fibrillation (HCC) [I48.19] 01/10/2017 Tendonitis, Achilles, left [M76.62] 03/26/2018 06/04/2018 Tendonitis, Achilles, right [M76.61] 03/26/2018 06/04/2018 Nonrheumatic mitral valve regurgitation [I34.0] 06/17/2021 History of colon polyps [Z86.010] Encounter Status:Closed by NATHANIEL BROWNLEE on 03/06/23 [facility] 03-06-2023 Miscellaneous Notes Patient phones requesting refills as follows: Pharmacy comment: Please clarify the directions for this prescription. Requested Prescriptions Pending Prescriptions Disp Refills lisinopril (ZESTRIL) 40 mg tablet [Pharmacy Med Name: LISINOPRIL 40MG TAB] 90 tablet 3 Sig: TAKE 1/2 (ONE-HALF) TABLET BY MOUTH ONCE DAILY Please review and advise. Swati Hall LPN documented in this encounter [facility] 03-06-2023 Note HNO ID: [id number] Author: Nathaniel Brownlee Service: ? Author Type: ? Type: Progress Notes Filed: 03/06/2023 12:02 PM Note Text: Kellie Dozier is identified through a medication adherence outreach initiative based on pharmacy claims data from [employer] (insurer) for SERA medication(s) and Statin medication(s). [...] Sent refill request for lisinopril Nathaniel Brownlee [facility] 03-06-2023 Miscellaneous Notes Patient reviewed for Population Health Medication Adherence Pended the following prescription(s) for review. Requested Prescriptions Pending Prescriptions Disp Refills lisinopril (ZESTRIL) 40 mg tablet 90 tablet 3 Sig: Take 0.5 tablets by mouth once daily. Future Appointments Date Time Provider Department Center 05/07/2023 11:00 AM Santo Taveras MD [facility] [place] Please review and refill if appropriate. Thank you. Nathaniel Brownlee March 06, 2023 12:03 PM documented in this encounter [facility] 01-29-2023 Note HNO ID: [id number] Author: Santo Taveras MD Service: ? Author [...] percutaneous left heart catheterization 06/24/11 done at [place] Malignant neoplasm of breast (female), unspecified site [...] Mother DVT Fa (more content not included)... [facility] 01-29-2023 History of Present illness Narrative Patient [...] percutaneous left heart catheterization 06/24/11 done at [place] Malignant neoplasm of breast (female), unspecified site 1998 Breast cancer right OBESITY 12/16/2005 Osteoarthritis of right knee Osteopenia 05/21/2010 Paroxysmal SVT (supraventricular tachycardia) ([facility]) Dr Marcelo Pure hypercholesterolemia TUBERCULIN TEST REACTION [...] <130/80 3. Atherosclerosis of coronary artery of [place] heart without angina pectoris, unspecified vessel or [...] Santo Taveras MD documented in this encounter [facility] 01-28-2023 Miscellaneous Notes Rambo took below applications up to [address] office. Patient spoke with Rambo regarding Kate Cares-Trulicity and Basaglar. Patient reports that she will be in for office visit on 01/29/23 so could worm picker forms at that time to start working on forms. Patient reports that she is also keeping an eye on how much she is spending for [employer] for Eliquis. [place] [employer] has a 3% spend out on prescriptions. Rambo will provide Dr. Taveras office with Kate [employer]ares and [employer] applications along with consent for release forms. Sw left patient message to call Sw back in regards to [employer] PAP for Trulicity and Basaglar. Rambo received note that states patient yearly application ends 03/25/23. Sw will talk with patient about reapplying to program for above medications. documented in this encounter [facility] 01-16-2023 Miscellaneous Notes Pharmacy verified in [facility] Patient has been identified by name [...] Genet Krishna Pss documented in this encounter [facility] 01-01-2023 Note HNO ID: [id number] Author: Talya Rodriguez PA-C Service: ? Author Type: Physician Equity Research Associate Type: Progress Notes Filed: 01/01/2023 12:55 PM [...] fibrillation (hcc) Atherosclerosis of coronary artery of [place] heart without angina pectoris, unspecified vessel or [...] Abs Lymph 1.00 - 4.00 k/uL 2.03 Latimer% % 9.9 Abs Latimer <0.87 k/uL 0.78 Eosin% % 1.8 Abs [...] percutaneous left heart catheterization 06/24/11 done at [place] Malignant neoplasm of breast (female), unspecified site [...] TRANSORAL BIOPSY SINGLE/MU (more content not included)... [facility] 01-01-2023 Instructions M Forrest Rodriguez PA-C - [...] you. You may also be given a Candelario-Hallpike position test. You start the Palmetto-Hallpike test by sitting upright on the examining [...] side, with your head angled upward about shelter. (Imagine that you are looking at the [...] of hearing or severe headache. Published by [employer]. This content is reviewed periodically and is subject to change as new health information becomes available. The information is intended to inform and educate and is not a replacement for medical evaluation, advice, diagnosis or treatment by a healthcare professional. Developed by [employer] Copyright 2007 [employer] and/or one of its subsidiaries. All Rights Reserved. Special Instructions: See information from pharmacy on Zofran and meclizine. Copyright [employer] 2007 Adult Health Advisor Copyright 2007 [employer]. All rights reserved. - [email or web address] documented in this encounter [facility] 01-01-2023 History of Present illness Narrative Meclizine [...] fibrillation (hcc) Atherosclerosis of coronary artery of [place] heart without angina pectoris, unspecified vessel or [...] Abs Lymph 1.00 - 4.00 k/uL 2.03 Latimer% % 9.9 Abs Latimer <0.87 k/uL 0.78 Eosin% % 1.8 Abs [...] percutaneous left heart catheterization 06/24/11 done at [place] Malignant neoplasm of breast (female), unspecified site [...] (supraventricular tachycardia) (HCC) Osteoarthritis of Right Knee jail current use of anticoagulant Persistent Atrial Fibrillation [...] I48.19 3. Atherosclerosis of coronary artery of [place] heart without angina pectoris, unspecified vessel or [...] Talya Rodriguez PA-C documented in this encounter [facility] 11-27-2022 Miscellaneous Notes Pt called and is notified of providers message and instructions. Pt voices understanding. Pt schedules 12/25/22 with [place] nurse. Lisa Barber RN Stop current verapamil. [...] Franca Atwood LPN documented in this encounter [facility] 11-27-2022 Note HNO ID: [id number] Author: Franca Atwood LPN Service: ? Author [...] after review by PCP. Franca Atwood LPN [facility] 11-27-2022 History of Present illness Narrative Manual [...] Franca Atwood LPN documented in this encounter [facility] 11-17-2022 Miscellaneous Notes Patient has been identified by name and date of : Yes Requested Prescriptions Pending Prescriptions Disp Refills pravastatin (PRAVACHOL) 80 mg tablet 90 tablet 3 Sig: Take 1 tablet by mouth once daily. RX INSTRUCTIONS: Patient aware RX will be sent to pharmacy. No need to notify patient. Ysa Liu MA Adan: 10/2022 Nov: 04/2023 Last [...] advise. Genet Choi documented in this encounter [facility] 11-11-2022 Miscellaneous Notes Pt called and is notified of providers message and instructions. Pt voices understanding. She states her BP this morning was 151/65. Pt was set up with BP check with [place] nurse on 11/20/22. Lisa Barber RN No although she was to do bp check already and has not done that. Patient has been off the HCTZ for about 1 month and had repeat labs drawn on 11/06/22. Is she to resume HCTZ? documented in this encounter [facility] 10-03-2022 Miscellaneous Notes Patient was notified and verbalized understanding Leonela Beckman Ma Sugars slightly higher. Watch the diet. Rest of labs ok. Calcium is borderline. Can be due to her hctz Lets stop it. Recheck labs and bp in one month documented in this encounter [facility] 10-02-2022 Instructions Santo Taveras MD - 10/02/2022 9:28 AM EST documented in this encounter [facility] 10-02-2022 History of Present illness Narrative Patient [...] gi upset: Yes Still seeing Cardiology at [place]. No nitro. No unusual bleeding or bruising [...] percutaneous left heart catheterization 06/24/11 done at [place] Malignant neoplasm of breast (female), unspecified site [...] ASSESSMENT/PLAN: 1. Atherosclerosis of coronary artery of [place] heart without angina pectoris, unspecified vessel or [...] C50.919 - call if an issues. 11. jail current use of anticoagulant - ICD9: V58.61, [...] months and prn. documented in this encounter [facility] 09-16-2022 Miscellaneous Notes Patient has been identified by name and date of : Yes Requested Prescriptions Pending Prescriptions Disp Refills hydroCHLOROthiazide (HYDRODIURIL, ESIDRIX) 12.5 mg capsule 90 capsule 1 Sig: Take 1 capsule by mouth once daily. RX INSTRUCTIONS: Patient aware RX will be sent to pharmacy. No need to notify patient. Griselda Farley documented in this encounter [facility] 07-18-2022 Miscellaneous Notes Pt called and is [...] Franca Atwood LPN documented in this encounter [facility] 07-17-2022 History of Present illness Narrative Manual [...] Franca Atwood LPN documented in this encounter [facility] 06-27-2022 Instructions aTlya Rodriguez PA-C - 06/27/2022 11:36 AM EDT Cut Lisinopril in half = 20mg daily instead of 40mg Push fluids, eat a little salt documented in this encounter [facility] 06-27-2022 History of Present illness Narrative Images from the original note were not included. 77 year old female with c/o here for follow up Doing well. Nonrheumatic mitral valve regurgitation (primary encounter diagnosis) Persistent atrial fibrillation (hcc) Paroxysmal svt (supraventricular tachycardia) (hcc) jail current use of anticoagulant Atherosclerosis of coronary artery of [place] heart without angina pectoris, unspecified vessel or [...] was preserved with LVEF of 70% 05/11/2009 [facility] transthoracic echo: LV size plus LV SF [...] Knee Constipation Benign Neoplasm of Colon Diverticulitis jail current use of anticoagulant Persistent Atrial Fibrillation [...] 424.0, ICD10: I34.0 (primary diagnosis) Follows with [facility] cardiology, stable 2. Persistent atrial fibrillation (HCC) - ICD9: 427.31, ICD10: I48.19 Controlled rate. Low BP today without sx. - COMP METABOLIC PANEL - ECG COMPLETE 3. Paroxysmal SVT (supraventricular tachycardia) (HCC) - ICD9: 427.0, ICD10: I47.1 controlled 4. 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 Atherosclerosis of coronary artery of [place] heart without angina pectoris, unspecified vessel or [...] Talya Rodriguez PA-C documented in this encounter [facility] 05-30-2022 Miscellaneous Notes May 30, 2022 PID: [id number] Kellie Dozier [address] [place] [address] Dear Ms. Dozier, We are pleased to [...] report will be kept on file at [facility] as part of your permanent medical record and are available for your continuing care. Thank you for allowing us to help in meeting your health care needs. Sincerely, Dr. Ramirez Interpreting Radiologist [facility] (Normal over 40) documented in this encounter [facility] 05-30-2022 History of Present illness Narrative Radiology [...] 2022 9:21 AM documented in this encounter [facility] 05-07-2022 History of Present illness Narrative Radiology [...] 2022 9:31 AM documented in this encounter [facility] 04-22-2022 Miscellaneous Notes Patient notified. Verbalized understanding. ordered Patient calls and is asking if provider can write an order for Mammogram. Please review and advise, Nicole Arriaga RN documented in this encounter [facility] 03-27-2022 Miscellaneous Notes Rambo now has received fax that states [employer] did receive application. Rambo spoke with patient and she notes that company told her they were missing part of her portion of application. Rambo will refax forms to [employer] [facility] for Eliquis. Rambo called Merlin Winston to [...] Rambo noted that Dr. Kate burton received [employer] application approval for patient basaglar and trulicity. documented in this encounter [facility] 03-25-2022 Miscellaneous Notes Fax received from [facility]. Pt is approved for Trulicity and basaglar for 12 months. Eli Thrasher Ma documented in this encounter [facility] 03-19-2022 Miscellaneous Notes Faxed forms. Will return to . On Dr Taveras's desk to sign. Clinical portion completed. [place] [employer]-Eliquis and [employer]-Trulicity and Basaglar patient assistance forms. Rambo will take forms to Dr. Kate burton to complete prescriptions on forms and then fax forms to companies. [place] [employer] fax#[phone] [employer] fax#[phone] documented in this encounter [facility] 02-25-2022 Miscellaneous Notes Patient called Rambo to request that Sw [facility]. Sw noted that she would patient the application forms. Patient reports that she will work on forms and send back to Dr. Taveras office for completion. documented in this encounter [facility] 02-13-2022 Miscellaneous Notes .Patient has been identified by name and date of : Yes Pending Prescriptions Disp Refills LISINOPRIL 40 MG TABLET 90 tablet 3 Sig: Take 1 tablet by mouth once daily. SHERLY: No RX INSTRUCTIONS: Patient aware RX will be sent to pharmacy. No need to notify patient. Racquel Haddad Pss documented in this encounter [facility] documented as of this encounter (statuses as of 02/13/2022) [facility] History of Past illness Narrative* Problem Noted [...] of this encounter (statuses as of 02/25/2022) [facility] N[facility]ative* Problem Noted [...] of this encounter (statuses as of 03/19/2022) [facility] N[facility]ative* Problem Noted [...] of this encounter (statuses as of 03/25/2022) [facility] N[facility]ative* Problem Noted [...] of this encounter (statuses as of 03/27/2022) [facility]* Problem Noted [...] of this encounter (statuses as of 04/22/2022) [facility]* Problem Noted [...] of this encounter (statuses as of 05/08/2022) [facility]* Problem Noted [...] of this encounter (statuses as of 05/31/2022) [facility]* Problem Noted [...] of this encounter (statuses as of 06/03/2022) [facility]* Problem Noted [...] of this encounter (statuses as of 06/27/2022) [facility]* Problem Noted [...] of this encounter (statuses as of 07/17/2022) [facility]* Problem Noted [...] of this encounter (statuses as of 07/18/2022) [facility]* Problem Noted [...] of this encounter (statuses as of 09/16/2022) [facility]* Problem Noted [...] of this encounter (statuses as of 10/02/2022) [facility]* Problem Noted [...] of this encounter (statuses as of 10/03/2022) [facility]* Problem Noted [...] of this encounter (statuses as of 11/17/2022) [facility]* Problem Noted [...] of this encounter (statuses as of 11/27/2022) [facility]* Problem Noted [...] of this encounter (statuses as of 12/26/2022) [facility]* Problem Noted [...] of this encounter (statuses as of 01/01/2023) [facility]* Problem Noted [...] of this encounter (statuses as of 01/16/2023) [facility]* Problem Noted [...] of this encounter (statuses as of 01/28/2023) [facility]* Problem Noted [...] of this encounter (statuses as of 01/29/2023) [facility]* Problem Noted [...] of this encounter (statuses as of 03/06/2023) [facility]* Problem Noted [...] of this encounter (statuses as of 05/07/2023) [facility]* Problem Noted [...] of this encounter (statuses as of 05/08/2023) [facility]* Problem Noted [...] of this encounter (statuses as of 06/29/2023) [facility]* Problem Noted [...] of this encounter (statuses as of 07/22/2023) [facility]* Problem Noted [...] of this encounter (statuses as of 09/06/2023) [facility]* Problem Noted [...] of this encounter (statuses as of 09/30/2023) [facility] Diagnosis Essential hypertension Unspecified essential hypertension [facility] Diagnosis Screening breast examination- Primary Breast screening, unspecified [facility] Diagnosis Postmenopausal Asymptomatic postmenopausal status (age-related) (natural) [facility] Diagnosis Screening breast examination Breast screening, unspecified [facility] Diagnosis Nonrheumatic mitral valve regurgitation- Primary Persistent atrial fibrillation (HCC) Atrial fibrillation Paroxysmal SVT (supraventricular tachycardia) (HCC) 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 tachycardia 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 Long-term (current) use of 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 Atherosclerosis of coronary artery of [place] heart without angina pectoris, unspecified vessel or [...] of colonic polyps [facility] Diagnosis Essential hypertension- Primary Unspecified essential hypertension [facility] Diagnosis Atherosclerosis of coronary artery of [place] heart without angina pectoris, unspecified vessel or [...] unspecified laterality, unspecified site of breast (HCC) jail current use of anticoagulant Long-term (current) use of 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 Osteopenia, unspecified location Hypercalcemia Need for hepatitis C screening test Special screening examination for other specified viral diseases [facility] Diagnosis Hypercalcemia- Primary documented in this encounter [facility] note* Diagnosis Essential hypertension- Primary Unspecified essential hypertension documented in this encounter [facility] note* Diagnosis Paroxysmal SVT (supraventricular tachycardia) (HCC)- Primary 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 tachycardia Persistent atrial fibrillation (HCC) Atrial fibrillation Atherosclerosis of coronary artery of [place] heart without angina pectoris, unspecified vessel or lesion type Essential hypertension Unspecified essential hypertension Mixed hyperlipidemia Nonrheumatic mitral valve regurgitation BPPV (benign paroxysmal positional vertigo), unspecified laterality Type 2 diabetes mellitus without complication, without long-term current use of insulin (HCC) [facility] Diagnosis Vertigo- Primary Dizziness and giddiness Essential hypertension Unspecified essential hypertension Atherosclerosis of coronary artery of [place] heart without angina pectoris, unspecified vessel or lesion type Persistent atrial fibrillation (HCC) Atrial fibrillation Paroxysmal SVT (supraventricular tachycardia) (HCC) 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 tachycardia Type 2 diabetes mellitus without complication, without long-term current use of insulin (HCC) Malignant neoplasm of female breast, unspecified estrogen receptor status, unspecified laterality, unspecified site of breast (HCC) Osteopenia, unspecified location [facility] Diagnosis Essential hypertension Unspecified essential hypertension documented in this encounter [facility] note* Diagnosis Essential hypertension- Primary Unspecified essential hypertension Mixed hyperlipidemia Paroxysmal SVT (supraventricular tachycardia) (HCC) 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 tachycardia Persistent atrial fibrillation (HCC) Atrial fibrillation Type 2 diabetes mellitus without complication, without long-term current use of insulin (HCC) jail current use of anticoagulant Long-term (current) use of 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 Osteopenia, unspecified location Malignant neoplasm of female breast, unspecified estrogen receptor status, unspecified laterality, unspecified site of breast (HCC) Screening mammogram for breast cancer [facility]* Diagnosis Type 2 diabetes mellitus without complication, without long-term current use of insulin (HCC)- Primary [facility] Diagnosis Type 2 diabetes mellitus without complication, without long-term current use of insulin (HCC) documented in this encounter [facility] note* Diagnosis Malignant neoplasm of female breast, unspecified estrogen receptor status, unspecified laterality, unspecified site of breast (HCC) [facility] Diagnosis Essential hypertension Unspecified essential hypertension documented in this encounter [facility] for referral (narrative)* Diagnostic Procedure Only (Routine) - Authorized Specialty Diagnoses / Procedures Referred By Contac t Referred To Contact [facility] Diagnoses Screening breast examination Procedures GENEVA SCREENING SCREENING MAMMOGRAPHY BI 2-VIEW BREAST INC Santo Moss MD [address] [place] [address] [facility] [address] [place] [address] Referral ID Status Reason Start Date Expiration Date Visits Requested Visits Authorized [id number] Authorized Auto-Generat ed Referral 04/22/2022 05/22/2023 1 1 T [facility] for referral (narrative)* Diagnostic Procedure Only (Routine) - Closed Specialty Diagnoses / Procedures [facility] Referred To Contact [facility] Diagnoses Screening breast examination Procedures GENEVA SCREENING SCREENING MAMMOGRAPHY BI 2-VIEW BREAST INC Santo Moss MD [address] [place] [address] [facility] [address] [place] [address] Referral ID Status Reason Start Date Expiration Date V isits Requested Visits Authorized [id number] Closed Auto-Generate d Referral 04/22/2022 05/22/2023 1 1 T [facility] for referral (narrative)* Outpatient Procedure (Routine) - Authorized Specialty Diagnoses / Procedures [facility] Diagnoses Persistent atrial fibrillation (HCC) Other specified hypotension Procedures ECG COMPLETE ECG ROUTINE ECG W/LEAST 12 LDS W/I&R Talya Rodriguez PA-C [address] [place] [address] [facility] [place] [address] [place] [address] Referral ID Status Reason Start Date Expiration Date Visits Requested Visits Authorized [id number] Authorized Auto-Generat ed Referral 06/27/2022 06/27/2023 1 1 [facility] for referral (narrative)* Diagnostic Procedure Only (Routine) - Authorized Specialty Diagnoses / Procedures Referred By Contac t Referred To Contact [facility] Diagnoses Malignant neoplasm of female breast, unspecified estrogen receptor status, unspecified laterality, unspecified site of breast (HCC) Procedures GENEVA SCREENING SCREENING MAMMOGRAPHY BI 2-VIEW BREAST INC Santo Moss MD [address] [place], [place] [id number] [facility] [address] [place] [address] Referral ID Status Reason Start Date Expiration Date Visits Requested Visits Authorized [id number] Authorized Auto-Generat ed Referral 05/07/2023 06/05/2024 1 1 [facility] for referral (narrative)* Diagnostic Procedure Only (Routine) - Closed Specialty Diagnoses / Procedures Referred By Contac t Referred To Contact [facility] Diagnoses Malignant neoplasm of female breast, unspecified estrogen receptor status, unspecified laterality, unspecified site of breast (HCC) Procedures GENEVA SCREENING SCREENING MAMMOGRAPHY BI 2-VIEW BREAST INC Santo Moss MD [address] [place] [address] [facility] [address] [place] [address] Referral ID Status Reason Start Date Expiration Date V isits Requested Visits Authorized [id number] Closed Auto-Generate d Referral 05/07/2023 06/05/2024 1 1 [facility] for visit Narrative* Diagnostic Procedure Only (Routine) - Closed Specialty Diagnoses / Procedures Referred By Contac t Referred To Contact [facility] Diagnoses Screening breast examination Procedures GENEVA SCREENING SCREENING MAMMOGRAPHY BI 2-VIEW BREAST INC Santo Moss MD [address] [place] [address] [facility] [address] [place] [address] Referral ID Status Reason Start Date Expiration Date V isits Requested Visits Authorized [id number] Closed Auto-Generate d Referral 04/22/2022 05/22/2023 1 1 [facility] for visit Narrative* Diagnostic Procedure Only (Routine) - Closed Specialty Diagnoses / Procedures Referred By Elia villegas Referred To Contact [facility] Diagnoses Malignant neoplasm of female breast, unspecified estrogen receptor status, unspecified laterality, unspecified site of breast (HCC) Procedures GENEVA SCREENING SCREENING MAMMOGRAPHY BI 2-VIEW BREAST INC Santo Moss MD [address] [place] [address] [facility] [address] [place] [address] Referral ID Status Reason Start Date Expiration Date V isits Requested Visits Authorized [id number] Closed Auto-Generate d Referral 05/07/2023 06/05/2024 1 1 [facility] Summary Purpose Family History No Family History Records FoundNo Family History Records FoundNo Family History Records FoundNo Family History Records Found Advance Directives No Advanced Directives Records FoundDocuments on File Type Date 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 DATE CREATED AUTHOR AUTHOR'S ORGANIZ ATION 11/16/2023 [facility] Source Comments (unrecognize d section and content) In the event this informatio n is protected by the Federal Confidentiality of Alcohol and Drug Abuse Patient Records regulations: The Federal rules restrict any use of the information to criminally investigate or prosecute any alcohol or drug abuse patient.[facility] the event this information is protected by the Federal Confidentiality of Alcohol and Drug Abuse Patient Records regulations: The Federal rules restrict any use of the information to criminally investigate or prosecute any alcohol or drug abuse patient.[facility] the event this information is protected by the Federal Confidentiality of Alcohol and Drug Abuse Patient Records regulations: The Federal rules restrict any use of the information to criminally investigate or prosecute any alcohol or drug abuse patient.[facility] the event this information is protected by the Federal Confidentiality of Alcohol and Drug Abuse Patient Records regulations: The Federal rules restrict any use of the information to criminally investigate or prosecute any alcohol or drug abuse patient.[facility] the event this information is protected by the Federal Confidentiality of Alcohol and Drug Abuse Patient Records regulations: The Federal rules restrict any use of the information to criminally investigate or prosecute any alcohol or drug abuse patient.[facility] the event this information is protected by the Federal Confidentiality of Alcohol and Drug Abuse Patient Records regulations: The Federal rules restrict any use of the information to criminally investigate or prosecute any alcohol or drug abuse patient.[facility] the event this information is protected by the Federal Confidentiality of Alcohol and Drug Abuse Patient Records regulations: The Federal rules restrict any use of the information to criminally investigate or prosecute any alcohol or drug abuse patient.[facility] the event this information is protected by the Federal Confidentiality of Alcohol and Drug Abuse Patient Records regulations: The Federal rules restrict any use of the information to criminally investigate or prosecute any alcohol or drug abuse patient.[facility] the event this information is protected by the Federal Confidentiality of Alcohol and Drug Abuse Patient Records regulations: The Federal rules restrict any use of the information to criminally investigate or prosecute any alcohol or drug abuse patient.[facility] HospitalIn the event this information is protected by the Federal Confidentiality of Alcohol and Drug Abuse Patient Records regulations: The Federal rules restrict any use of the information to criminally investigate or prosecute any alcohol or drug abuse patient.[facility] HospitalIn the event this information is protected by the Federal Confidentiality of Alcohol and Drug Abuse Patient Records regulations: The Federal rules restrict any use of the information to criminally investigate or prosecute any alcohol or drug abuse patient.[facility] HospitalIn the event this information is protected by the Federal Confidentiality of Alcohol and Drug Abuse Patient Records regulations: The Federal rules restrict any use of the information to criminally investigate or prosecute any alcohol or drug abuse patient.[facility] HospitalIn the event this information is protected by the Federal Confidentiality of Alcohol and Drug Abuse Patient Records regulations: The Federal rules restrict any use of the information to criminally investigate or prosecute any alcohol or drug abuse patient.[facility] HospitalIn the event this information is protected by the Federal Confidentiality of Alcohol and Drug Abuse Patient Records regulations: The Federal rules restrict any use of the information to criminally investigate or prosecute any alcohol or drug abuse patient.[facility] HospitalIn the event this information is protected by the Federal Confidentiality of Alcohol and Drug Abuse Patient Records regulations: The Federal rules restrict any use of the information to criminally investigate or prosecute any alcohol or drug abuse patient.[facility] HospitalIn the event this information is protected by the Federal Confidentiality of Alcohol and Drug Abuse Patient Records regulations: The Federal rules restrict any use of the information to criminally investigate or prosecute any alcohol or drug abuse patient.[facility] HospitalIn the event this information is protected by the Federal Confidentiality of Alcohol and Drug Abuse Patient Records regulations: The Federal rules restrict any use of the information to criminally investigate or prosecute any alcohol or drug abuse patient.[facility] HospitalIn the event this information is protected by the Federal Confidentiality of Alcohol and Drug Abuse Patient Records regulations: The Federal rules restrict any use of the information to criminally investigate or prosecute any alcohol or drug abuse patient.[facility] HospitalIn the event this information is protected by the Federal Confidentiality of Alcohol and Drug Abuse Patient Records regulations: The Federal rules restrict any use of the information to criminally investigate or prosecute any alcohol or drug abuse patient.[facility] HospitalIn the event this information is protected by the Federal Confidentiality of Alcohol and Drug Abuse Patient Records regulations: The Federal rules restrict any use of the information to criminally investigate or prosecute any alcohol or drug abuse patient.[facility] HospitalIn the event this information is protected by the Federal Confidentiality of Alcohol and Drug Abuse Patient Records regulations: The Federal rules restrict any use of the information to criminally investigate or prosecute any alcohol or drug abuse patient.[facility] HospitalIn the event this information is protected by the Federal Confidentiality of Alcohol and Drug Abuse Patient Records regulations: The Federal rules restrict any use of the information to criminally investigate or prosecute any alcohol or drug abuse patient.[facility] HospitalIn the event this information is protected by the Federal Confidentiality of Alcohol and Drug Abuse Patient Records regulations: The Federal rules restrict any use of the information to criminally investigate or prosecute any alcohol or drug abuse patient.[facility] HospitalIn the event this information is protected by the Federal Confidentiality of Alcohol and Drug Abuse Patient Records regulations: The Federal rules restrict any use of the information to criminally investigate or prosecute any alcohol or drug abuse patient.[facility] HospitalIn the event this information is protected by the Federal Confidentiality of Alcohol and Drug Abuse Patient Records regulations: The Federal rules restrict any use of the information to criminally investigate or prosecute any alcohol or drug abuse patient.[facility] HospitalIn the event this information is protected by the Federal Confidentiality of Alcohol and Drug Abuse Patient Records regulations: The Federal rules restrict any use of the information to criminally investigate or prosecute any alcohol or drug abuse patient.[facility] HospitalIn the event this information is protected by the Federal Confidentiality of Alcohol and Drug Abuse Patient Records regulations: The Federal rules restrict any use of the information to criminally investigate or prosecute any alcohol or drug abuse patient.[facility] HospitalIn the event this information is protected by the Federal Confidentiality of Alcohol and Drug Abuse Patient Records regulations: The Federal rules restrict any use of the information to criminally investigate or prosecute any alcohol or drug abuse patient.[facility] HospitalIn the event this information is protected by the Federal Confidentiality of Alcohol and Drug Abuse Patient Records regulations: The Federal rules restrict any use of the information to criminally investigate or prosecute any alcohol or drug abuse patient.[facility] HospitalIn the event this information is protected by the Federal Confidentiality of Alcohol and Drug Abuse Patient Records regulations: The Federal rules restrict any use of the information to criminally investigate or prosecute any alcohol or drug abuse patient.[facility] HospitalIn the event this information is protected by the Federal Confidentiality of Alcohol and Drug Abuse Patient Records regulations: The Federal rules restrict any use of the information to criminally investigate or prosecute any alcohol or drug abuse patient.[facility] Reason for Visit (unrecogniz ed section and [...] Care Teams (unrecognized sec tion and content) [employer]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 Relationship Specialty Start Date End Date Santo Taveras MD [address] [place] [address] PCP - General Family Practice 09/18/15 [facility] [address] [place] [address] Pharmacist Pharmacy 04/14/19 Yazmin Meade [facility] [address] [place] [address] Pharmacist Pharmacy 10/31/20 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 Relationship Specialty Start Date End Date Santo Taveras MD [address] [place], [place] [address] PCP - General Family Practice 09/18/15 [facility] [address] [place] [address] Pharmacist Pharmacy 04/14/19 [facility] [address] [place] [address] Pharmacist Pharmacy 10/31/20 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 Relationship Specialty Start Date End Date Santo Taveras MD [address] [place] [address] PCP - General Family Practice 09/18/15 [facility] [address] [place] [address] Pharmacist Pharmacy 04/14/19 [facility] [address] [place] [address] Pharmacist Pharmacy 10/31/20 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 Relationship Specialty Start Date End Date Santo Taveras MD [address] [place] [address] PCP - General Family Practice 09/18/15 [facility] [address] [place] [address] Pharmacist Pharmacy 04/14/19 [facility] [address] [place] [address] Pharmacist Pharmacy 10/31/20 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 Relationship Specialty Start Date End Date Santo Taveras MD [address] [place] [address] PCP - General Family Practice 09/18/15 Jenny Brooke, [facility] [address] [place] [address] Pharmacist Pharmacy 04/14/19 [facility] [address] [place] [address] Pharmacist Pharmacy 10/31/20 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 Relationship Specialty Start Date End Date Santo Taveras MD [address] [place] [address] PCP - General Family Practice 09/18/15 [facility] [address] [place] [address] Pharmacist Pharmacy 04/14/19 [facility] [address] [place] [address] Pharmacist Pharmacy 10/31/20 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 Relationship Specialty Start Date End Date Santo Taveras MD [address] [place] [address] PCP - General Family Practice 09/18/15 [facility] [address] [place] [address] Pharmacist Pharmacy 04/14/19 [facility] [address] [place] [address] Pharmacist Pharmacy 10/31/20 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 Relationship Specialty Start Date End Date Santo Taveras MD [address] [place] [address] PCP - General Family Practice 09/18/15 [facility] [address] [place] [address] Pharmacist Pharmacy 04/14/19 Yazmin Meade, [facility] [address] [place] [address] Pharmacist Pharmacy 10/31/20 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 Relationship Specialty Start Date End Date Santo Taveras MD [address] [place] [address] PCP - General Family Medicine 09/18/15 Jenny Brooke, [facility] [address] [place] [address] Pharmacist Pharmacy 04/14/19 [facility] [address] [facility] [place] [address] Pharmacist Pharmacy 10/31/20 [employer]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 Relationship Specialty Start Date End Date Santo Taveras MD [address] [place] [address] PCP - General Family Medicine 09/18/15 Jenny Brooke, [facility] [address] [facility] [place] [address] Pharmacist Pharmacy 04/14/19 [facility] [address] [place] [address] Pharmacist Pharmacy 10/31/20 [employer]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 Relationship Specialty Start Date End Date Santo Taveras MD [address] [facility] [place] [address] PCP - General Family Medicine 09/18/15 Jenny Brooke, [facility] [address] [facility] [place] [address] Pharmacist Pharmacy 04/14/19 [facility] [address] [place] [address] Pharmacist Pharmacy 10/31/20 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 Relationship Specialty Start Date End Date Santo Taveras MD [address] [place] [address] PCP - General Family Medicine 09/18/15 Jenny Brooke, [facility] [address] [place] [address] Pharmacist Pharmacy 04/14/19 FarhanYazmin fierro, [facility] [address] [facility] [place] [address] Pharmacist Pharmacy 10/31/20 [employer]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 Relationship Specialty Start Date End Date Santo Taveras MD [address] [place] [address] PCP - General Family Medicine 09/18/15 Jenny Brooke, [facility] [address] [place] [address] Pharmacist Pharmacy 04/14/19 FarhanYazmin fierro, [facility] [address] [place] [address] Pharmacist Pharmacy 10/31/20 [employer]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 Relationship Specialty Start Date End Date Santo Taveras MD [address] [place] [address] PCP - General Family Medicine 09/18/15 Jenny Brooke, [facility] [address] [place] [address] Pharmacist Pharmacy 04/14/19 Yazmin Meade, [facility] [address] [place] [address] Pharmacist Pharmacy 10/31/20 [employer]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 Relationship Specialty Start Date End Date Santo Taveras MD [address] [place] [address] PCP - General Family Medicine 09/18/15 Jenny Brooke, [facility] [address] [place] [address] Pharmacist Pharmacy 04/14/19 FarhanYazmin fierro, [facility] [address] [place] [address] Pharmacist Pharmacy 10/31/20 [employer]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 Relationship Specialty Start Date End Date Santo Taveras MD [address] [facility] [place] [address] PCP - General Family Medicine 09/18/15 EnglewoodJenny chatman, [facility] [address] [place] [address] Pharmacist Pharmacy 04/14/19 Yazmin Meade, [facility] [address] [facility] [place] [address] Pharmacist Pharmacy 10/31/20 Tr[employer]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 Relationship Specialty Start Date End Date Santo Taveras MD [address] [place] [address] PCP - General Family Medicine 09/18/15 [facility] [address] [place] [address] Pharmacist Pharmacy 04/14/19 Yazmin Meade, [facility] [address] [facility] [place] [address] Pharmacist Pharmacy 10/31/20 [employer]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 Relationship Specialty Start Date End Date Santo Taveras MD [address] [place] [address] PCP - General Family Medicine 09/18/15 Jenny Brooke, [facility] [address] [place] [address] Pharmacist Pharmacy 04/14/19 Yazmin Meade, [facility] [address] [facility] [place] [address] Pharmacist Pharmacy 10/31/20 Tr[employer]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 Relationship Specialty Start Date End Date Santo Taveras MD [address] [place] [address] PCP - General Family Medicine 09/18/15 Menyd Jenny, [facility] [address] [place] [address] Pharmacist Pharmacy 04/14/19 [facility] [address] [place] [address] Pharmacist Pharmacy 10/31/20 [employer]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 Relationship Specialty Start Date End Date Santo Taveras MD [address] [place] [address] PCP - General Family Medicine 09/18/15 Yomaira Brookeily, [facility] [address] [place] [address] Pharmacist Pharmacy 04/14/19 [facility] [address] [place] [address] Pharmacist Pharmacy 10/31/20 [employer]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 Relationship Specialty Start Date End Date Santo Taveras MD [address] [place] [address] PCP - General Family Medicine 09/18/15 Yomaira Brookeily, [facility] [address] [place] [address] Pharmacist Pharmacy 04/14/19 [facility] [address] [place] [address] Pharmacist Pharmacy 10/31/20 [employer]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 Relationship Specialty Start Date End Date Santo Taveras MD [address] [place] [address] PCP - General Family Medicine 09/18/15 Jenny Brooke, [facility] [address] [place] [address] Pharmacist Pharmacy 04/14/19 [facility] [address] [place], [place] [address] Pharmacist Pharmacy 10/31/20 [employer]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 [employer] provides no warranty or guarantee of the accuracy or completeness of information in this document.
--- NOTE | 2023-12-15 05:51 | ED.VIS.GI ---
HPI HPI - GI History of Present Illness Chief Complaint: Nausea/Vomiting/Diarrhea Informant: patient, family and EMS Narrative Narrative: Patient presents by EMS for 6-8 hours or so of nausea/vomiting with hematemesis. She states it is dark red, almost black emesis. No bright red blood. She was discharged from the hospital a day or so prior to the onset of this, she was here for upper GI bleeding, had an EGD that showed duodenal ulcer. She was off of her apixaban while in the hospital but told it was okay to restart it for paroxysmal atrial fibrillation when she went home; her last dose was just prior to the onset of this bleeding last night. She states she has felt lightheaded. She denies any abdominal pain. She has been having melena, but that started while she was in the hospital. She denies passing any bright red blood or maroon blood per rectum. No chest pain or dyspnea. No syncopal episodes. EMS gave her a sublingual Zofran but she vomited it up. PFSH [facility] Medical History Atherosclerotic heart disease of [place] coronary artery without angina pectoris Essential hypertension GERD (gastroesophageal reflux disease) Liver mass Malignant neoplasm of right breast Old myocardial infarction Paroxysmal atrial fibrillation 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 tachycardia Presence of stent in coronary artery (~05/23/09) Pure hypercholesterolemia Type 2 diabetes mellitus Home Medications apixaban 5 mg tablet (Eliquis) 5 mg PO BID a.fib 09/06/19 [History Last Taken 02/12/21] cyanocobalamin (vitamin B-12) 1,000 mcg tablet 1,000 mcg PO DAILY 09/06/19 [History Last Taken 02/12/21] pravastatin 80 mg tablet 80 mg PO QHS 09/06/19 [History Last Taken 02/11/21] pyridoxine (vitamin B6) 100 mg tablet 100 mg PO DAILY 09/06/19 [History Last Taken 02/12/21] nitroglycerin 0.4 mg sublingual tablet 0.4 mg sublingual Q5-15M PRN chest pain #90 tabs 09/08/19 [Rx Last Taken Unknown] insulin glargine U-300 conc 300 unit/mL (1.5 mL) subcutaneous pen 20 unit subcut QHS 08/14/21 [History Last Taken Unknown] dulaglutide 4.5 mg/0.5 mL subcutaneous pen injector (Trulicity) 4.5 mg subcut MO 08/06/23 [History Last Taken 12/07/23] verapamil 300 mg capsule 24hr pellet CT,ext.release 300 mg PO QHS 08/06/23 [History Last Taken Unknown] brimonidine 0.2 % eye drops 1 drp ophthalmic (eye) BID 12/11/23 [History Last Taken Unknown] calcium carbonate 600 mg-vitamin D3 5 mcg (200 unit) tablet (Calcium 600 + D(3)) 1 tab PO DAILY 12/11/23 [History Last Taken Unknown] lisinopril 40 mg tablet 20 mg PO DAILY HIG BLOOD PRESSURE 12/11/23 [History Last Taken Unknown] pantoprazole 40 mg tablet,delayed release 40 mg PO BID 30 days #60 tabs 12/13/23 [Rx Last Taken Unknown] Allergy/AdvReac Type Severity Reaction Status Date / Time alendronate sodium AdvReac Severe myalgias Verified 12/15/23 05:40 [From Fosamax] amoxicillin [Amoxicillin] AdvReac Nausea/Vom/ Verified 12/15/23 05:40 Diarrhea metformin AdvReac Nausea/Vom/ Verified 12/15/23 05:40 Diarrhea shellfish derived AdvReac Nausea/Vom/ Verified 12/15/23 05:40 Diarrhea Family History Mother Hypertension Diabetes CVA (cerebral vascular accident) CAD (coronary artery disease) Father History of DVT (deep vein thrombosis) Surgical History History of eyelid surgery (05/28/23) History of total abdominal hysterectomy Presence of coronary angioplasty implant and graft (~05/23/09) S/P lumpectomy, right breast Social History household members: family housing: house Smoking Status: Never smoker alcohol intake: never substance use type: does not use caffeine: Yes Type: coffee Number of servings: 2 ROS ROS ED Constitutional Constitutional ED: Reports fatigue and weakness; Denies chills or fever(s) Eyes Eyes: Denies change in vision or diplopia ENT ENT ED: Denies rhinorrhea or sore throat Cardiovascular Cardiovascular: Denies chest pain or palpitations Respiratory/Chest Respiratory/Chest: Denies cough or dyspnea Gastrointestinal Gastrointestinal: Reports as per HPI, hematemesis, melena, nausea and vomiting; Denies abdominal pain Genitourinary Genitourinary ED: Denies dysuria or hematuria Musculoskeletal Musculoskeletal: Denies back pain or neck pain Integumentary Denies abscess or rash Neurologic Neurologic: Denies headache(s), paresthesias or weakness Psychiatric Psychiatric: Denies depression or suicidal thoughts EXAM Physical Exam Const Vital Signs: 12/15/23 05:40 Temperature 97.2 F L Temperature Source Temporal Pulse Rate 144 H Respiratory Rate 16 Blood Pressure 134/64 H Blood Pressure Mean 87 Pulse Ox 94 Oxygen Delivery Method Room Air Positive well nourished and well developed General Appearance ED: well developed and NAD HEENT Reports moist mucous membranes normocephalic and atraumatic Eyes PERRL and EOMs intact bilaterally Neck full ROM and supple Resp normal respiratory effort and clear to auscultation bilaterally Cardio regular rate, regular rhythm and no murmurs Rate: tachycardic GI non-tender and non-distended Auscultation: normoactive bowel sounds Palpation: soft Back/Spine no CVA tenderness General Back: other FROM Extremity normal to inspection General Extremety ED: Negative for edema, pulses abnormal or tenderness General Extremity: Negative for edema or pulses abnormal Neuro oriented x3, CN's II-XII intact bilaterally and no sensory deficits noted Sensorium / Orientation: awake and alert Motor Exam: strength 5/5 throughout Psych mental status grossly normal and thought process normal Skin no rashes or lesions noted and no wounds MDM MDM MDM Narrative Medical decision making narrative: Patient was given IV fluids and Zofran which did help her nausea, her blood pressure remained stable, her heart rate decreased although still mildly tachycardic, and she is clinically stable. Her hemoglobin has dropped significantly now down to 6.6, and given that she is still vomiting dark blood my suspicion is that she may still be having active upper GI bleeding. Her BUN is 41 with a normal creatinine, consistent with this. I consented her for blood, her daughter was present during that discussion, all questions answered at the bedside and she consents for blood, I am ordering her 2 units given the fact that she may still be bleeding and we will start her back on a pantoprazole drip as well. History & Record Review Additional record(s) reviewed:: Prior inpatient record and Prior ED visit Lab Data Attestation: I reviewed the patient's lab results. Labs: Laboratory Results - last 24 hr 12/15/23 12/15/23 05:30 05:44 WBC 14.0 H RBC 2.19 L Hgb 6.6 L Hct 20.5 L MCV 93.6 MCH 30.1 MCHC 32.2 RDW Std Deviation 46.3 H RDW Coeff of Emperatriz 13.9 Plt Count 239 MPV 10.7 Immature Gran % (Auto) 1.400 H Neut % (Auto) 80.0 H Lymph % (Auto) 12.6 L [place] % (Auto) 5.6 Eos % (Auto) 0.0 Baso % (Auto) 0.4 Absolute Neuts (auto) 11.2 H Absolute Lymphs (auto) 1.77 Nucleated RBC % 0 Sodium 141 Potassium 4.5 Chloride 109 H Carbon Dioxide 23.0 Anion Gap 9 BUN 41 H Creatinine 0.84 Estim Creat Clear Calc 51.80 Est GFR (MDRD) Af Amer 84 Est GFR (MDRD) Non-Af 70 BUN/Creatinine Ratio 49.0 H Glucose 410 H Calcium 8.8 POC Glucose 352 H Management Discussion w/another healthcare provider: Hospitalist Critical Care Time Critical Care Time: Yes Critical care time (excluding procedures): 30-74 minutes (36 min), Including time spent:, Discussing w/Patient &/or Family/Fixture Maker, Discussing w/Consultants, Arranging Admission or Transfer and Performing Direct Patient Care at Bedside Discharge Plan Dx/Rx/DC Orders Clinical Impression: Acute blood loss anemia, UGIB (upper gastrointestinal bleed), On apixaban therapy, Pyloric channel ulcer Disposition Disposition: [facility] Care [facility]
[2023-12-15 06:01] LABS: Absolute Lymphocyte Count 1.77 X10^3/uL (0.83-4.51); Absolute Neutrophil Count 11.2 X10^3/uL (2.0-7.7); Basophil# 0.06 X10^3/uL; Basophil% 0.4 % (0-1); Hematocrit 20.5 % (37-47); Hemoglobin 6.6 g/dL (12.0-15.0); Lymphocyte # 1.77 X10^3/ul (0.83-4.51); Lymphocyte % 12.6 % (19-41); Mean Corp Hgb Conc 32.2 g/dL (32-36); Mean Corpuscular Hgb 30.1 pg (27.0-32.0); Mean Corpuscular Volume 93.6 fL (81-99); Mean Platelet Vol. 10.7 fl (6.2-12.0); Monocyte# 0.79 X10^3/uL; Monocyte% 5.6 % (0-10); NRBC Flagged by Analyzer 0 % (0-5); Neutrophil # 11.22 X10^3/uL (2.7-7.7); Platelet Count 239 K/mm3 (150-450); RBC Distribution Width CV 13.9 % (11.6-14.6); RBC Distribution Width SD 46.3 fl (35.1-43.9); Red Blood Count 2.19 M/mm3 (4.2-5.4)
[2023-12-15 06:02] LABS: Bedside Glucose 352 mg/dL (74-106)
[2023-12-15] MEDS: 0.9% Normal Saline (1000mL) 1,000 ML 1000 ML IV (06:10)
[2023-12-15 06:14] LABS: Anion Gap 9 (5-15); BUN 41 mg/dL (7-18); Calcium,Total 8.8 mg/dL (8.5-10.1); Chloride 109 mmol/L (98-107); Creatinine, Serum 0.84 mg/dL (0.55-1.02); EST Glomerular Filtration Rate 70 mL/min (>60); Est Glom Filt Rate - Afr Amer 84 mL/min (>60); Glucose 410 mg/dL (74-106); Potassium 4.5 mmol/L (3.5-5.1); Sodium Level 141 mmol/L (136-145)
--- NOTE | 2023-12-15 06:58 | NURSING ---
DR HUGHES FOR DR PATTON
--- OUTSIDE RECORDS SUMMARY | 2023-12-15 07:16 | XMS RPT_ITS | CCD ---
Author Name Unknown Address [address] [place] [address] Organization [facility] Care Team Providers Care Skin Washer Name Role Phone JOLIE MARCELONETH E Unavailable Unavailable DAVIAN, BHARATH E Unavailable Unavailable TAY ALLISON Unavailable Unavail able DAVIAN, BHARATH Unavailable Unavailable DAVIAN, BHARATH Unavailable Unavailable Kate, Santo Unavailable Unavailable DAVIAN, BHARATH Unavailable Unavailable DAVIAN, BHARATH Unavailable Unavailable [place], Santo Unavailable Unavailable [place], Satno Unavailable Unavailable [facility] Unavailable Unavailable JOSE MEYER Admitting Unavailable JOSE MEYER Primary Care Unavailable JOSE MEYER Attending Unavailable KATE, SANTO Consulting Unavailable KATE, SANTO Referring Unavailable PROVIDER, UNKNOWN Consulting Unavailable KATE, SANTO Consulting Unavailable HORACIO ROSENTHAL Admitting Unavailable HORACIO ROSENTHAL Primary Care Unavailable HORACIO ROSENTHAL Attending Unavailable PROVIDER, UNKNOWN Consulting Unavailable Santo Taveras MD Primary Care Provider [facility], Jenny Unavailable [facility], Keti Unavailable Santo Taveras MD Primary Care Provider [facility], Jenny Unavailable [facility], Keti Unavailable Santo Taveras MD Primary Care Provider [facility], Jenny Unavailable [facility], Keti Unavailable Santo Taveras MD Primary Care Provider [facility], Jenny Unavailable [facility], Keti Unavailable [facility], Keti Unavailable SANTO TAVERAS Primary Care [...] SODIUM] Drug Allergy 8 Other: See Comments [facility] Repository (20 sources) amoxicillin; Translations: [AMOXICILLIN] Drug Allergy 7 Diarrhea [facility] Repository (20 sources) metFORMIN; Translations: [METFORMIN] Drug Allergy 7 Diarrhea [facility] Repository (20 sources) Shellfish; Translations: [SHELLFISH] Propensity to adverse reactions to food (disorder) 8 Diarrhea, Vomiting [facility] Repository Medications Current Medications Medication Drug Class(es) [...] disease (20 sources) Atherosclerotic heart disease of mentasta coronary artery without angina pectoris; Translations: [Coronary [...] sources) Long-term current use of anticoagulant; Translations: [FDC (current) use of 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] Onset: 01-10-2017 01-10-2017 Episodic Other aftercare (1 source) FDC (current) use of 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; Translations: [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] Onset: 01-10-2017 Episodic Other aftercare (1 source) Other longterm (current) drug therapy; Translations: [Current use of [...] 162.6 cm Santo Taveras MD Work Phone: [facility] 05-07-2023 10:43-0400 Body weight 65.41 kg Santo Taveras MD Work Phone: [facility] 05-07-2023 10:43-0400 Diastolic blood pressure 52 mm[Hg] Santo Taveras MD Work Phone: [facility] 05-07-2023 10:43-0400 Heart rate 65 /min Santo Taveras MD Work Phone: [facility] 05-07-2023 10:43-0400 SaO2% (BldA) [Mass fraction] 97 % Santo Taveras MD Work Phone: [facility] 05-07-2023 10:43-0400 Systolic blood pressure 106 mm[Hg] Santo Taveras MD Work Phone: [facility] 01-29-2023 10:19-0400 Body weight 64.41 kg Santo Taveras MD Work Phone: [facility] 01-29-2023 10:19-0400 Diastolic blood pressure 62 mm[Hg] Santo Taveras MD Work Phone: [facility] 01-29-2023 10:19-0400 Heart rate 70 /min Santo Taveras MD Work Phone: [facility] 01-29-2023 10:19-0400 SaO2% (BldA) [Mass fraction] 97 % Santo Taveras MD Work Phone: [facility] 01-29-2023 10:19-0400 Systolic blood pressure 112 mm[Hg] Santo Taveras MD Work Phone: [facility] 01-01-2023 10:18-0500 Body temperature 97.2 [degF] NA Rodriguez PA-C Work Phone: [facility] 01-01-2023 10:18-0500 Body weight 63.5 kg NA Rodriguez PA-C Work Phone: [facility] 01-01-2023 10:18-0500 Diastolic blood pressure 82 mm[Hg] NA Rodriguez PA-C Work Phone: [facility] 01-01-2023 10:18-0500 Heart rate 76 /min NA Rodriguez PA-C Work Phone: [facility] 01-01-2023 10:18-0500 Respiratory rate 16 /min NA Rodriguez PA-C Work Phone: [facility] 01-01-2023 10:18-0500 SaO2% (BldA) [Mass fraction] 96 % NA Rodriguze PA-C Work Phone: [facility] 01-01-2023 10:18-0500 Systolic blood pressure 166 mm[Hg] NA Rodriguez PA-C Work Phone: [facility] 11-27-2022 09:01-0500 Diastolic blood pressure 71 mm[Hg] Mi Nurse Work Phone: [facility] 11-27-2022 09:01-0500 Heart rate 71 /min Mi Nurse Work Phone: [facility] 11-27-2022 09:01-0500 Systolic blood pressure 164 mm[Hg] Mi Nurse Work Phone: [facility] 10-02-2022 09:14-0500 Body weight 62.14 kg Santo Taveras MD Work Phone: [facility] 10-02-2022 09:14-0500 Diastolic blood pressure 72 mm[Hg] Santo Taveras MD Work Phone: [facility] 10-02-2022 09:14-0500 Heart rate 74 /min Santo Taveras MD Work Phone: [facility] 10-02-2022 09:14-0500 SaO2% (BldA) [Mass fraction] 99 % Santo Taveras MD Work Phone: [facility] 10-02-2022 09:14-0500 Systolic blood pressure 126 mm[Hg] Santo Taveras MD Work Phone: [facility] 07-17-2022 09:43-0400 Diastolic blood pressure 68 mm[Hg] Mi Nurse Work Phone: [facility] 07-17-2022 09:43-0400 Heart rate 74 /min Mi Nurse Work Phone: [facility] 07-17-2022 09:43-0400 Systolic blood pressure 113 mm[Hg] Mi Nurse Work Phone: [facility] 06-27-2022 11:50-0400 SaO2% (BldA) [Mass fraction] 99 % NA Rodriguez PA-C Work Phone: [facility] 06-27-2022 11:32-0400 Diastolic blood pressure 40 mm[Hg] NA Rodriguez PA-C Work Phone: [facility] 06-27-2022 11:32-0400 Systolic blood pressure 78 mm[Hg] NA Rodriguez PA-C Work Phone: [facility] 06-27-2022 11:07-0400 Body weight 60.33 kg NA Rodriguez PA-C Work Phone: [facility] 06-27-2022 11:07-0400 Heart rate 78 /min NA Rodriguez PA-C Work Phone: [facility] 06-27-2022 11:07-0400 Respiratory rate 14 /min NA Rodriguez PA-C Work Phone: [facility] Encounters Encounter Date Encounter Type Care Provider Facility Start: 11-12-2023 End: 11-13-2023 ambulatory Talya RODRIGUEZ Facility:[facility] Start: 11-12-2023 End: 11-13-2023 ambulatory Talya RODRIGUEZ Facility:[facility] Start: 11-03-2023 End: 11-04-2023 ambulatory [facility] Facility:[facility] Start: 09-30-2023 Refill Santo Taveras [...] Activity Detail Author Start: 09-17-2024 Colonoscopy COLONOSCOPY [facility] Start: 05-14-2024 Hepatitis C antibody , confirmatory test DILATED RETINAL EXAM [facility] Start: 05-07-2024 3 comp foot exam completed DIABETIC FOOT EXAM [facility] Start: 05-07-2024 ANNUAL PCP TEAM SECURITY DEVELOPER ABRAM DISEASE VISIT ANNUAL PCP TEAM CHRONIC DISEASE VISIT [facility] Start: 05-07-2024 BP CONTROLLED (<130/80) BP CONTROLLE D (<130/80) [facility] Start: 01-30-2024 ANNUAL PCP TEAM SECURITY DEVELOPER ABRAM DISEASE VISIT ANNUAL PCP TEAM CHRONIC DISEASE VISIT [facility] Start: 01-30-2024 BP CONTROLLED (<130/80) BP CONTROLLE D (<130/80) [facility] Start: 01-30-2024 COVID-19 VACCINE (#1) COVID-19 VACCI NE (#1) [facility] Immunizations Immunization Date Immunization Notes Care Provider Zehra staton 06-24-2019 influenza virus vacc ine, unspecified formulation Herlinda Dickinson NEWS COPY EDITOR [facility] 09-18-2015 influenza, high dose seasonal, preservative-free Santo Taveras MD Work Phone: [facility] 09-18-2015 pneumococcal conjuga te vaccine, 13 valent Santo Taveras MD Work Phone: [facility] 07-28-2014 influenza, high dose seasonal, preservative-free Santo Taveras MD Work Phone: [facility] 10-14-2013 influenza virus vacc ine, unspecified formulation Santo Taveras MD Work Phone: [facility] 10-13-2012 influenza virus vacc ine, unspecified formulation Santo Taveras MD Work Phone: [facility] 06-13-2011 zoster vaccine, live Santo Taveras MD Work Phone: [facility] Work Phone: 06-12-2009 pneumococcal polysaccharide vaccine, 23 valent Santo Taveras MD Work Phone: [facility] Work Phone: 04-13-2007 tetanus toxoid, redu fatemeh diphtheria toxoid, and acellular pertussis vaccine, adsorbed Santo Taveras MD Work Phone: [facility] Work Phone: Payers Date Payer Category Payer Medicare [id number] 2018 Unknown ANTHEM BLUE CROS S AND BLUE SHIELD ANTHEM MEDIBLUE O [id number] 2018-Present [id number] [place], [place] [address]O [id number] 2018 Unknown ANTHEM BLUE CROS S AND BLUE SHIELD ANTHEM MEDIBLUE O [id number] 2018-Present [id number] [place], [place] [id number] O [id number] 2018 Unknown [id number] 1945 Unknown [id number] 1945 Unknown [id number] Unknown [id number] Social History Date Type Detail Facility Start: 11-28-2014 End: 07-17-2022 Tobacco smoking status NHIS Never smoked tobacco [facility] Work Phone: Start: 12-18-2021 End: 05-07-2023 Alcohol intake Current non-drinker of alcohol (finding) [facility] Start: 1945 Sex Assigned At Not on file [facility] Start: 03-14-2022 End: 10-02-2022 Exposure to SARS-CoV-2 (event) Not sure [facility] Start: 11-28-2014 End: 07-17-2022 Tobacco use and exposure Smokeless tobacco non-user [facility] Start: 01-29-2023 End: 05-07-2023 History of Social function [facility] Work Phone: Start: 01-29-2023 End: 05-07-2023 Tobacco use panel [facility] Work Phone: Adult Depression Screening Assessment 0 [facility] Work Phone: Medical Equipment Procedure Code Equipment Code Equipment Origin al Text Equipment Identifier Dates Use as directed once daily as directed DM: yes Insulin: yes DX: E11.9 Start: 10-19-2019 Clinical Notes 03-26-2018 to 11-12-2023 Telephone Encounter - [place] Lazara Mosley - 09/30/2023 8:36 AM ESTTelephone Encounter - Herlinda Dickinson MSW - 07/22/2023 11:10 AM Mary Garcia [employer] - 07/02/2023 8:30 AM EDT Note Date & Type Note Facility 11-12-2023 Note HNO ID: [id number] Author: Talya RODRIGUEZ PA-C Service: ? Author Type: Physician Mercury Washer Type: Progress Notes Filed: 11/12/2023 12:27 Note Text: 78 year old female with c/o here for 6 month follow up Doing well aside from stress Lives with daughter who is . No vertigo since 03/24/2023 Nonrheumatic mitral valve regurgitation (primary encounter diagnosis) Persistent atrial fibrillation (hcc) Paroxysmal svt (supraventricular tachycardia) (hcc) FDC current use of anticoagulant Atherosclerosis of coronary artery of mentasta heart without angina pectoris, unspecified vessel or lesion type Essential hypertension Mixed hyperlipidemia Coding Clerk: Graham Cardiovascular interval hx: none 06/27/2022 EKG: Sinus rhythm with first-degree AV block with premature SVCs with occasional PVC, low voltage QRS consider pulmonary disease, pericardial effusion, or normal variant, possible septal infarct age-indeterminate 09/12/[address] [facility]: Shade protocol for 2 minutes and 54 [...] Lymph 1.00 - 4.00 k/uL 2.03 1.78 [place]% % 9.9 9.3 Abs [place] <0.87 k/uL 0.78 0.73 Eosin% % 1.8 [...] Any visual di (more content not included)... [facility] 09-30-2023 Miscellaneous Notes Patient has been identified [...] patient. Lazara Mosley documented in this encounter [facility] 07-22-2023 Miscellaneous Notes Rambo called Sw and noted that she did not receive MYOS application for [employer]. Rambo noted that she will mail application again to patient to work on completing. Patient notes that she will work on completing and bring in to Dr. Taveras office when complete. documented in this encounter [facility] 07-02-2023 Note HNO ID: [id number] Author: Mary Hammer Mammo Tech Service: ? Author Type: Title I Director Type: Progress Notes Filed: 07/02/2023 8:49 AM [...] Porfirio Walden July 02, 2023 8:28 AM [facility] 07-02-2023 History of Present illness Narrative Radiology [...] IV DATA: Not applicable SIGNED BY: Angelic WaldenGeoGraffiti Delfino July 02, 2023 8:28 AM documented in this encounter [facility] 06-29-2023 Miscellaneous Notes Patient phones requesting refills [...] Dafne Sams [employer] documented in this encounter [facility] 05-08-2023 Miscellaneous Notes Kellie informed and verbalized understanding. Tierney White Labs are up. Increase trulicity. Recheck a1c in three months. Watch diet. documented in this encounter [facility] 05-07-2023 Note HNO ID: [id number] Author: Santo Taveras MD Service: ? Author [...] bouts of vertigo. No palpitations No syncope Senior Report Developer edema Uses Meclizine for occasional dizziness. Last episode of vertigo was on 03/24/23. Only lasts for a day and has happened twice. No neuro issues. Red flags for re-assessment reviewed with patient in detail. Consider vestibular therapy. HLD: No myalgias Follows with Cardiology. Still on Eliquis and Verapamil. Having eyelid lift surgery on 05/28/[address] Richardson at [facility]. Component Latest Ref Rng AND [...] percutaneous left heart catheterization 06/24/11 done at [place] Malignant neoplasm of breast (female), unspecified site [...] 06/11/2007 LEFT TO (more content not included)... [facility] 05-07-2023 History of Present illness Narrative Patient [...] bouts of vertigo. No palpitations No syncope Senior Report Developer edema Uses Meclizine for occasional dizziness. Last episode of vertigo was on 03/24/23. Only lasts for a day and has happened twice. No neuro issues. Red flags for re-assessment reviewed with patient in detail. Consider vestibular therapy. HLD: No myalgias Follows with Cardiology. Still on Eliquis and Verapamil. Having eyelid lift surgery on 05/28/[address] Richardson at [facility]. Component Latest Ref Rng & [...] percutaneous left heart catheterization 06/24/11 done at [place] Malignant neoplasm of breast (female), unspecified site 1998 Breast cancer right OBESITY 12/16/2005 Osteoarthritis of right knee Osteopenia 05/21/2010 Paroxysmal SVT (supraventricular tachy[facility]) [facility] Dr Marcelo Pure hypercholesterolemia TUBERCULIN [...] rectum repair COLON SURGERY HX COLONOSCOPY 2006 [facility] COLONOSCOPY 09/12/2014 no polyps, repeat due [...] BASIC METABOLIC PNL - HGB A1C 6. 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 - ICD9: V58.61, ICD10: Z79.01 - stable 7. Osteopenia, unspecified location - ICD9: 733.90, ICD10: M85.80 Up to date on bone density. 8. Malignant neoplasm of female breast, unspecified estrogen receptor status, unspecified laterality, unspecified site of breast (HCC) - ICD9: 174.9, ICD10: C50.919 - mammogram Santo Taveras MD documented in this encounter [facility] 03-06-2023 Note Patient Outreach ( PO) KELLIE DOZIER ([id number]) 1945 F NFR Date Time Provider Department 03/06/23 SANTO TAVERAS During your visit today, we recorded the following information about you: Nathaniel Brownlee 03/06/2023 12:02 PM Signed Kellie Dozier is identified through a medication adherence outreach initiative based on pharmacy claims data from [employer] (insurer) for SERA medication(s) and Statin medication(s). [...] [D12.6] 10/17/2011 10/02/2022 Diverticulitis [K57.92] 10/24/2011 10/02/2022 FDC current use of anticoagulant [Z79.01]01/10/2017 Persistent atrial fibrillation (HCC) [I48.19] 01/10/2017 Tendonitis, Achilles, left [M76.62] 03/26/2018 06/04/2018 Tendonitis, Achilles, right [M76.61] 03/26/2018 06/04/2018 Nonrheumatic mitral valve regurgitation [I34.0] 06/17/2021 History of colon polyps [Z86.010] Encounter Status:Closed by NATHANIEL BROWNLEE on 03/06/23 [facility] 03-06-2023 Miscellaneous Notes Patient phones requesting refills as follows: Pharmacy comment: Please clarify the directions for this prescription. Requested Prescriptions Pending Prescriptions Disp Refills lisinopril (ZESTRIL) 40 mg tablet [Pharmacy Med Name: LISINOPRIL 40MG TAB] 90 tablet 3 Sig: TAKE 1/2 (ONE-HALF) TABLET BY MOUTH ONCE DAILY Please review and advise. Swati Hall LPN documented in this encounter [facility] 03-06-2023 Note HNO ID: [id number] Author: Nathaniel Brownlee Service: ? Author Type: ? Type: Progress Notes Filed: 03/06/2023 12:02 PM Note Text: Kellie Dozier is identified through a medication adherence outreach initiative based on pharmacy claims data from [employer] (insurer) for SERA medication(s) and Statin medication(s). [...] Sent refill request for lisinopril Nathaniel Brownlee [facility] 03-06-2023 Miscellaneous Notes Patient reviewed for Population Health Medication Adherence Pended the following prescription(s) for review. Requested Prescriptions Pending Prescriptions Disp Refills lisinopril (ZESTRIL) 40 mg tablet 90 tablet 3 Sig: Take 0.5 tablets by mouth once daily. Future Appointments Date Time Provider Department Center 05/07/2023 11:00 AM Santo Taveras MD [facility] Please review and refill if appropriate. Thank you. Nathaniel Brownlee March 06, 2023 12:03 PM documented in this encounter [facility] 01-29-2023 Note HNO ID: [id number] Author: Santo Taveras MD Service: ? Author [...] percutaneous left heart catheterization 06/24/11 done at [place] Malignant neoplasm of breast (female), unspecified site [...] Mother DVT Fa (more content not included)... [facility] 01-29-2023 History of Present illness Narrative Patient [...] percutaneous left heart catheterization 06/24/11 done at [place] Malignant neoplasm of breast (female), unspecified site 1998 Breast cancer right OBESITY 12/16/2005 Osteoarthritis of right knee Osteopenia 05/21/2010 Paroxysmal SVT (supraventricular tachycardia) ([facility] Dr Marcelo Pure hypercholesterolemia TUBERCULIN [...] <130/80 3. Atherosclerosis of coronary artery of mentasta heart without angina pectoris, unspecified vessel or [...] Santo Taveras MD documented in this encounter [facility] 01-28-2023 Miscellaneous Notes Rambo took below applications up to [address] office. Patient spoke with Rambo regarding Kate Cares-Trulicity and Basaglar. Patient reports that she will be in for office visit on 01/29/23 so could pick remover forms at that time to start working on forms. Patient reports that she is also keeping an eye on how much she is spending for [employer] for Eliquis. [place] [employer] has a 3% spend out on prescriptions. Rambo will provide Dr. Taveras office with Kate Cares and [employer] applications along with consent for release forms. Sw left patient message to call Sw back in regards to Kate [employer] PAP for Trulicity and Basaglar. Rambo received note that states patient yearly application ends 03/25/23. Sw will talk with patient about reapplying to program for above medications. documented in this encounter [facility] 01-16-2023 Miscellaneous Notes Pharmacy verified in [facility] Patient has been identified by name [...] Genet Krishna Pss documented in this encounter [facility] 01-01-2023 Note HNO ID: [id number] Author: Talya Rodriguez PA-C Service: ? Author Type: Physician Mercury Washer Type: Progress Notes Filed: 01/01/2023 12:55 PM [...] fibrillation (hcc) Atherosclerosis of coronary artery of mentasta heart without angina pectoris, unspecified vessel or [...] Abs Lymph 1.00 - 4.00 k/uL 2.03 [place]% % 9.9 Abs [place] <0.87 k/uL 0.78 Eosin% % 1.8 Abs [...] percutaneous left heart catheterization 06/24/11 done at [place] Malignant neoplasm of breast (female), unspecified site [...] TRANSORAL BIOPSY SINGLE/MU (more content not included)... [facility] 01-01-2023 Instructions M Forrest Rodriguez PA-C - [...] a Candelario-Hallpike position test. You start the Montezuma-Hallpike test by sitting upright on the examining [...] side, with your head angled upward about retirement. (Imagine that you are looking at the [...] of hearing or severe headache. Published by [employer]. This content is reviewed periodically and is subject to change as new health information becomes available. The information is intended to inform and educate and is not a replacement for medical evaluation, advice, diagnosis or treatment by a healthcare professional. Developed by [employer] Copyright 2007 [employer] and/or one of its subsidiaries. All Rights Reserved. Special Instructions: See information from pharmacy on Zofran and meclizine. Copyright [employer] 2007 Adult [employer] Advisor Copyright 2007 [employer] All rights reserved. - www.[employer] documented in this encounter [facility] 01-01-2023 History of Present illness Narrative Meclizine [...] fibrillation (hcc) Atherosclerosis of coronary artery of mentasta heart without angina pectoris, unspecified vessel or [...] Abs Lymph 1.00 - 4.00 k/uL 2.03 [place]% % 9.9 Abs [place] <0.87 k/uL 0.78 Eosin% % 1.8 Abs [...] percutaneous left heart catheterization 06/24/11 done at [place] Malignant neoplasm of breast (female), unspecified site [...] (supraventricular tachycardia) (HCC) Osteoarthritis of Right Knee FDC current use of anticoagulant Persistent Atrial Fibrillation [...] I48.19 3. Atherosclerosis of coronary artery of mentasta heart without angina pectoris, unspecified vessel or [...] Talya Rodriguez PA-C documented in this encounter [facility] 11-27-2022 Miscellaneous Notes Pt called and is notified of providers message and instructions. Pt voices understanding. Pt schedules 12/25/22 with [place] nurse. Lisa Barber RN Stop current verapamil. [...] Franca Atwood LPN [facility] [facility] 11-27-2022 Note HNO ID: [id number] Author: Franca Atwood LPN Service: ? Author [...] after review by PCP. Franca Atwood LPN [facility] 11-27-2022 History of Present illness Narrative Manual [...] Franca Atwood LPN documented in this encounter [facility] 11-17-2022 Miscellaneous Notes Patient has been identified [...] advise. Genet Choi documented in this encounter [facility] 11-11-2022 Miscellaneous Notes Pt called and is notified of providers message and instructions. Pt voices understanding. She states her BP this morning was 151/65. Pt was set up with BP check with [place] nurse on 11/20/22. Lisa Barber RN No although she was to do bp check already and has not done that. Patient has been off the HCTZ for about 1 month and had repeat labs drawn on 11/06/22. Is she to resume HCTZ? documented in this encounter [facility] 10-03-2022 Miscellaneous Notes Patient was notified and verbalized understanding Leonela Beckman Ma Sugars slightly higher. Watch the diet. Rest of labs ok. Calcium is borderline. Can be due to her hctz Lets stop it. Recheck labs and bp in one month documented in this encounter [facility] 10-02-2022 Instructions Santo Taveras MD - 10/02/2022 9:28 AM EST documented in this encounter [facility] 10-02-2022 History of Present illness Narrative Patient [...] gi upset: Yes Still seeing Cardiology at [place]. No nitro. No unusual bleeding or bruising [...] percutaneous left heart catheterization 06/24/11 done at [place] Malignant neoplasm of breast (female), unspecified site [...] ASSESSMENT/PLAN: 1. Atherosclerosis of coronary artery of mentasta heart without angina pectoris, unspecified vessel or [...] C50.919 - call if an issues. 11. FDC current use of anticoagulant - ICD9: V58.61, [...] months and prn. documented in this encounter [facility] 09-16-2022 Miscellaneous Notes Patient has been identified by name and date of : Yes Requested Prescriptions Pending Prescriptions Disp Refills hydroCHLOROthiazide (HYDRODIURIL, ESIDRIX) 12.5 mg capsule 90 capsule 1 Sig: Take 1 capsule by mouth once daily. RX INSTRUCTIONS: Patient aware RX will be sent to pharmacy. No need to notify patient. Griselda Farley documented in this encounter [facility] 07-18-2022 Miscellaneous Notes Pt called and is [...] Franca Atwood LPN documented in this encounter [facility] 07-17-2022 History of Present illness Narrative Manual [...] Franca Atwood LPN documented in this encounter [facility] 06-27-2022 Instructions Talya Rodriguez PA-C - 06/27/2022 11:36 AM EDT Cut Lisinopril in half = 20mg daily instead of 40mg Push fluids, eat a little salt documented in this encounter [facility] 06-27-2022 History of Present illness Narrative Images from the original note were not included. 77 year old female with c/o here for follow up Doing well. Nonrheumatic mitral valve regurgitation (primary encounter diagnosis) Persistent atrial fibrillation (hcc) Paroxysmal svt (supraventricular tachycardia) (hcc) FDC current use of anticoagulant Atherosclerosis of coronary artery of mentasta heart without angina pectoris, unspecified vessel or [...] was preserved with LVEF of 70% 05/11/2009 [facility] transthoracic echo: LV size plus LV [...] Knee Constipation Benign Neoplasm of Colon Diverticulitis FDC current use of anticoagulant Persistent Atrial Fibrillation [...] 424.0, ICD10: I34.0 (primary diagnosis) Follows with [facility] cardiology, stable 2. Persistent atrial fibrillation (HCC) - ICD9: 427.31, ICD10: I48.19 Controlled rate. Low BP today without sx. - COMP METABOLIC PANEL - ECG COMPLETE 3. 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 Atherosclerosis of coronary artery of mentasta heart without angina pectoris, unspecified vessel or [...] Talya Rodriguez PA-C documented in this encounter [facility] 05-30-2022 Miscellaneous Notes May 30, 2022 PID: [id number] Kellie Dozier [address] [place] [address] Dear Ms. Dozier, We are pleased to [...] report will be kept on file at [facility] as part of your permanent medical record and are available for your continuing care. Thank you for allowing us to help in meeting your health care needs. Sincerely, Dr. Ramirez Interpreting Radiologist [facility] (Normal over 40) documented in this encounter [facility] 05-30-2022 History of Present illness Narrative Radiology [...] 2022 9:21 AM documented in this encounter [facility] 05-07-2022 History of Present illness Narrative Radiology [...] 2022 9:31 AM documented in this encounter [facility] 04-22-2022 Miscellaneous Notes Patient notified. Verbalized understanding. ordered Patient calls and is asking if provider can write an order for Mammogram. Please review and advise, Nicole Arriaga RN documented in this encounter [facility] 03-27-2022 Miscellaneous Notes Rambo now has received fax that states [employer] did receive application. Rambo spoke with patient and she notes that company told her they were missing part of her portion of application. Rambo will refax forms to [employer] [facility] for Eliquis. Rambo called Merlin [employer] to [...] Rambo noted that Dr. Kate burton received [employer] application approval for patient basaglar and trulicity. documented in this encounter [facility] 03-25-2022 Miscellaneous Notes Fax received from [facility] [facility]. Pt is approved for Trulicity and basaglar for 12 months. Eli Thrasher Ma documented in this encounter [facility] 03-19-2022 Miscellaneous Notes Faxed forms. Will return to . On Dr Taveras's desk to sign. Clinical portion completed. [place] [employer]-Eliquis and [employer]-Trulicity and Basaglar patient assistance forms. Rambo will take forms to Dr. Kate burton to complete prescriptions on forms and then fax forms to companies. [employer] fax#[phone] [employer] fax#[phone] documented in this encounter [facility] 02-25-2022 Miscellaneous Notes Patient called Rambo to request that Sw [facility]. Sw noted that she would patient the application forms. Patient reports that she will work on forms and send back to Dr. Taveras office for completion. documented in this encounter [facility] 02-13-2022 Miscellaneous Notes .Patient has been identified by name and date of : Yes Pending Prescriptions Disp Refills LISINOPRIL 40 MG TABLET 90 tablet 3 Sig: Take 1 tablet by mouth once daily. SHERLY: No RX INSTRUCTIONS: Patient aware RX will be sent to pharmacy. No need to notify patient. Racquel Haddad Pss documented in this encounter [facility] documented as of this encounter (statuses as of 02/13/2022) [facility] History of Past illness Narrative* Problem Noted [...] of this encounter (statuses as of 02/25/2022) [facility] Narrative* Problem Noted [...] of this encounter (statuses as of 03/19/2022) [facility] Narrative* Problem Noted [...] of this encounter (statuses as of 03/25/2022) [facility] Narrative* Problem Noted [...] of this encounter (statuses as of 03/27/2022) [facility] Narrative* Problem Noted [...] of this encounter (statuses as of 04/22/2022) [facility] Narrative* Problem Noted [...] of this encounter (statuses as of 05/08/2022) [facility] Narrative* Problem Noted [...] of this encounter (statuses as of 05/31/2022) [facility] Narrative* Problem Noted [...] of this encounter (statuses as of 06/03/2022) [facility] Narrative* Problem Noted [...] of this encounter (statuses as of 06/27/2022) [facility] Narrative* Problem Noted [...] of this encounter (statuses as of 07/17/2022) [facility] Narrative* Problem Noted [...] of this encounter (statuses as of 07/18/2022) [facility] Narrative* Problem Noted [...] of this encounter (statuses as of 09/16/2022) [facility] Narrative* Problem Noted [...] of this encounter (statuses as of 10/02/2022) [facility] Narrative* Problem Noted [...] of this encounter (statuses as of 10/03/2022) [facility] Narrative* Problem Noted [...] of this encounter (statuses as of 11/17/2022) [facility] Narrative* Problem Noted [...] of this encounter (statuses as of 11/27/2022) [facility] Narrative* Problem Noted [...] of this encounter (statuses as of 12/26/2022) [facility] Narrative* Problem Noted [...] of this encounter (statuses as of 01/01/2023) [facility] Narrative* Problem Noted [...] of this encounter (statuses as of 01/16/2023) [facility] Narrative* Problem Noted [...] of this encounter (statuses as of 01/28/2023) [facility] Narrative* Problem Noted [...] of this encounter (statuses as of 01/29/2023) [facility] N[facility]ative* Problem Noted [...] of this encounter (statuses as of 03/06/2023) [facility] Narrative* Problem Noted [...] of this encounter (statuses as of 05/07/2023) [facility] N[facility]ative* Problem Noted [...] of this encounter (statuses as of 05/08/2023) [facility] Narrative* Problem Noted [...] of this encounter (statuses as of 06/29/2023) [facility] Narrative* Problem Noted [...] of this encounter (statuses as of 07/22/2023) [facility] Narrative* Problem Noted [...] of this encounter (statuses as of 09/06/2023) [facility] Narrative* Problem Noted [...] of this encounter (statuses as of 09/30/2023) [facility] Diagnosis Essential hypertension Unspecified essential hypertension [facility] Diagnosis Screening breast examination- Primary Breast screening, unspecified [facility] Diagnosis Postmenopausal Asymptomatic postmenopausal status (age-related) (natural) [facility] Diagnosis Screening breast examination Breast screening, unspecified [facility] Diagnosis Nonrheumatic mitral valve regurgitation- Primary Persistent atrial fibrillation (HCC) Atrial fibrillation Paroxysmal SVT (supraventricular tachycardia) (HCC) 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 tachycardia 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 Long-term (current) use of 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 Atherosclerosis of coronary artery of mentasta heart without angina pectoris, unspecified vessel or [...] of colonic polyps [facility] Diagnosis Essential hypertension- Primary Unspecified essential hypertension [facility] Diagnosis Atherosclerosis of coronary artery of mentasta heart without angina pectoris, unspecified vessel or [...] unspecified laterality, unspecified site of breast (HCC) FDC current use of anticoagulant Long-term (current) use of 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 Osteopenia, unspecified location Hypercalcemia Need for hepatitis C screening test Special screening examination for other specified viral diseases [facility] Diagnosis Hypercalcemia- Primary documented in this encounter [facility] note* Diagnosis Essential hypertension- Primary Unspecified essential hypertension documented in this encounter [facility] note* Diagnosis Paroxysmal SVT (supraventricular tachycardia) (HCC)- Primary 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 tachycardia Persistent atrial fibrillation (HCC) Atrial fibrillation Atherosclerosis of coronary artery of mentasta heart without angina pectoris, unspecified vessel or lesion type Essential hypertension Unspecified essential hypertension Mixed hyperlipidemia Nonrheumatic mitral valve regurgitation BPPV (benign paroxysmal positional vertigo), unspecified laterality Type 2 diabetes mellitus without complication, without long-term current use of insulin (HCC) [facility] Diagnosis Vertigo- Primary Dizziness and giddiness Essential hypertension Unspecified essential hypertension Atherosclerosis of coronary artery of mentasta heart without angina pectoris, unspecified vessel or lesion type Persistent atrial fibrillation (HCC) Atrial fibrillation Paroxysmal SVT (supraventricular tachycardia) (HCC) 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 tachycardia Type 2 diabetes mellitus without complication, without long-term current use of insulin (HCC) Malignant neoplasm of female breast, unspecified estrogen receptor status, unspecified laterality, unspecified site of breast (HCC) Osteopenia, unspecified location [facility] Diagnosis Essential hypertension Unspecified essential hypertension documented in this encounter [facility] note* Diagnosis Essential hypertension- Primary Unspecified essential hypertension Mixed hyperlipidemia Paroxysmal SVT (supraventricular tachycardia) (HCC) 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 tachycardia Persistent atrial fibrillation (HCC) Atrial fibrillation Type 2 diabetes mellitus without complication, without long-term current use of insulin (HCC) FDC current use of anticoagulant Long-term (current) use of 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 Osteopenia, unspecified location Malignant neoplasm of female breast, unspecified estrogen receptor status, unspecified laterality, unspecified site of breast (HCC) Screening mammogram for breast cancer [facility]* Diagnosis Type 2 diabetes mellitus without complication, without long-term current use of insulin (HCC)- Primary [facility] Diagnosis Type 2 diabetes mellitus without complication, without long-term current use of insulin (HCC) documented in this encounter [facility] note* Diagnosis Malignant neoplasm of female breast, unspecified estrogen receptor status, unspecified laterality, unspecified site of breast (HCC) [facility] Diagnosis Essential hypertension Unspecified essential hypertension documented in this encounter [facility] for referral (narrative)* Diagnostic Procedure Only (Routine) - Authorized Specialty Diagnoses / Procedures Referred By Contac t Referred To Contact [facility] Diagnoses Screening breast examination Procedures GENEVA SCREENING SCREENING MAMMOGRAPHY BI 2-VIEW BREAST INC Santo Moss MD [address] [place] [address] [facility] [address] [place] [address] Referral ID Status Reason Start Date Expiration Date Visits Requested Visits Authorized [id number] Authorized Auto-Generat ed Referral 04/22/2022 05/22/2023 1 1 T [facility] for referral (narrative)* Diagnostic Procedure Only (Routine) - Closed Specialty Diagnoses / Procedures [facility] Diagnoses Screening breast examination Procedures GENEVA SCREENING SCREENING MAMMOGRAPHY BI 2-VIEW BREAST INC Santo Moss MD [address] [place] [address] [facility] [address] [place] [address] Referral ID Status Reason Start Date Expiration Date V isits Requested Visits Authorized [id number] Closed Auto-Generate d Referral 04/22/2022 05/22/2023 1 1 T [facility] for referral (narrative)* Outpatient Procedure (Routine) - Authorized Specialty Diagnoses / Procedures [facility] Diagnoses Persistent atrial fibrillation (HCC) Other specified hypotension Procedures ECG COMPLETE ECG ROUTINE ECG W/LEAST 12 LDS W/I&R Talya Rodriguez PA-C [address] [place] [address] [facility] [address] [place] [address] Referral ID Status Reason Start Date Expiration Date Visits Requested Visits Authorized [id number] Authorized Auto-Generat ed Referral 06/27/2022 06/27/2023 1 1 [facility] for referral (narrative)* Diagnostic Procedure Only (Routine) - Authorized Specialty Diagnoses / Procedures Referred By Contac t Referred To Contact [facility] Diagnoses Malignant neoplasm of female breast, unspecified estrogen receptor status, unspecified laterality, unspecified site of breast (HCC) Procedures GENEVA SCREENING SCREENING MAMMOGRAPHY BI 2-VIEW BREAST INC Santo Moss MD [address] [place], [place] [id number] [facility] [address] [place] [address] Referral ID Status Reason Start Date Expiration Date Visits Requested Visits Authorized [id number] Authorized Auto-Generat ed Referral 05/07/2023 06/05/2024 1 1 [facility] for referral (narrative)* Diagnostic Procedure Only (Routine) - Closed Specialty Diagnoses / Procedures Referred By Contac t Referred To Contact [facility] Diagnoses Malignant neoplasm of female breast, unspecified estrogen receptor status, unspecified laterality, unspecified site of breast (HCC) Procedures GENEVA SCREENING SCREENING MAMMOGRAPHY BI 2-VIEW BREAST INC Santo Moss MD [address] [place] [address] [facility] [address] [place] [address] Referral ID Status Reason Start Date Expiration Date V isits Requested Visits Authorized [id number] Closed Auto-Generate d Referral 05/07/2023 06/05/2024 1 1 [facility] for visit Narrative* Diagnostic Procedure Only (Routine) - Closed Specialty Diagnoses / Procedures Referred By Contac t Referred To Contact [facility] Diagnoses Screening breast examination Procedures GENEVA SCREENING SCREENING MAMMOGRAPHY BI 2-VIEW BREAST INC Santo Moss MD [address] [place] [address] [facility] [address] [place] [address] Referral ID Status Reason Start Date Expiration Date V isits Requested Visits Authorized [id number] Closed Auto-Generate d Referral 04/22/2022 05/22/2023 1 1 [facility] for visit Narrative* Diagnostic Procedure Only (Routine) - Closed Specialty Diagnoses / Procedures Referred By Elia villegas Referred To Contact [facility] Diagnoses Malignant neoplasm of female breast, unspecified estrogen receptor status, unspecified laterality, unspecified site of breast (HCC) Procedures GENEVA SCREENING SCREENING MAMMOGRAPHY BI 2-VIEW BREAST INC Santo Moss MD [address] [place] [address] [facility] [address] [place] [address] Referral ID Status Reason Start Date Expiration Date V isits Requested Visits Authorized [id number] Closed Auto-Generate d Referral 05/07/2023 06/05/2024 1 1 [facility] Summary Purpose Family History No Family History Records FoundNo Family History Records FoundNo Family History Records FoundNo Family History Records Found Advance Directives No Advanced Directives Records FoundDocuments on File Type Date Recorded Patient [employer] Expl anation Advance Directive(s) 09/17/2021 6:44 AM Advance Directive(s) 09/11/2020 10:43 AM Advance Directive(s) 11/13/2016 12:33 PM Advance Directive(s) 11/06/2016 12:34 PM Documents on File Type Date Recorded Patient Net [employer] 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 Expl anation Advance Directive(s) 09/17/2021 6:44 AM [...] CREATED AUTHOR AUTHOR'S ORGANIZ ATION 07/02/2018 Rubina [facility] DATE CREATED AUTHOR AUTHOR'S ORGANIZ ATION 12/06/2020 [facility] DATE CREATED AUTHOR AUTHOR'S ORGANIZ ATION 11/16/2023 [facility] Source Comments (unrecognize d section and content) In the event this informatio n is protected by the Federal Confidentiality of Alcohol and Drug Abuse Patient Records regulations: The Federal rules restrict any use of the information to criminally investigate or prosecute any alcohol or drug abuse patient.[facility] the event this information is protected by the Federal Confidentiality of Alcohol and Drug Abuse Patient Records regulations: The Federal rules restrict any use of the information to criminally investigate or prosecute any alcohol or drug abuse patient.[facility] the event this information is protected by the Federal Confidentiality of Alcohol and Drug Abuse Patient Records regulations: The Federal rules restrict any use of the information to criminally investigate or prosecute any alcohol or drug abuse patient.[facility] the event this information is protected by the Federal Confidentiality of Alcohol and Drug Abuse Patient Records regulations: The Federal rules restrict any use of the information to criminally investigate or prosecute any alcohol or drug abuse patient.[facility] the event this information is protected by the Federal Confidentiality of Alcohol and Drug Abuse Patient Records regulations: The Federal rules restrict any use of the information to criminally investigate or prosecute any alcohol or drug abuse patient.[facility] the event this information is protected by the Federal Confidentiality of Alcohol and Drug Abuse Patient Records regulations: The Federal rules restrict any use of the information to criminally investigate or prosecute any alcohol or drug abuse patient.[facility] the event this information is protected by the Federal Confidentiality of Alcohol and Drug Abuse Patient Records regulations: The Federal rules restrict any use of the information to criminally investigate or prosecute any alcohol or drug abuse patient.[facility] CenterIn the event this information is protected by the Federal Confidentiality of Alcohol and Drug Abuse Patient Records regulations: The Federal rules restrict any use of the information to criminally investigate or prosecute any alcohol or drug abuse patient.[facility] CenterIn the event this information is protected by the Federal Confidentiality of Alcohol and Drug Abuse Patient Records regulations: The Federal rules restrict any use of the information to criminally investigate or prosecute any alcohol or drug abuse patient.[facility] CenterIn the event this information is protected by the Federal Confidentiality of Alcohol and Drug Abuse Patient Records regulations: The Federal rules restrict any use of the information to criminally investigate or prosecute any alcohol or drug abuse patient.[facility] CenterIn the event this information is protected by the Federal Confidentiality of Alcohol and Drug Abuse Patient Records regulations: The Federal rules restrict any use of the information to criminally investigate or prosecute any alcohol or drug abuse patient.[facility] CenterIn the event this information is protected by the Federal Confidentiality of Alcohol and Drug Abuse Patient Records regulations: The Federal rules restrict any use of the information to criminally investigate or prosecute any alcohol or drug abuse patient.[facility] CenterIn the event this information is protected by the Federal Confidentiality of Alcohol and Drug Abuse Patient Records regulations: The Federal rules restrict any use of the information to criminally investigate or prosecute any alcohol or drug abuse patient.[facility] CenterIn the event this information is protected by the Federal Confidentiality of Alcohol and Drug Abuse Patient Records regulations: The Federal rules restrict any use of the information to criminally investigate or prosecute any alcohol or drug abuse patient.[facility] CenterIn the event this information is protected by the Federal Confidentiality of Alcohol and Drug Abuse Patient Records regulations: The Federal rules restrict any use of the information to criminally investigate or prosecute any alcohol or drug abuse patient.[facility] CenterIn the event this information is protected by the Federal Confidentiality of Alcohol and Drug Abuse Patient Records regulations: The Federal rules restrict any use of the information to criminally investigate or prosecute any alcohol or drug abuse patient.[facility] CenterIn the event this information is protected by the Federal Confidentiality of Alcohol and Drug Abuse Patient Records regulations: The Federal rules restrict any use of the information to criminally investigate or prosecute any alcohol or drug abuse patient.[facility] CenterIn the event this information is protected by the Federal Confidentiality of Alcohol and Drug Abuse Patient Records regulations: The Federal rules restrict any use of the information to criminally investigate or prosecute any alcohol or drug abuse patient.[facility] CenterIn the event this information is protected by the Federal Confidentiality of Alcohol and Drug Abuse Patient Records regulations: The Federal rules restrict any use of the information to criminally investigate or prosecute any alcohol or drug abuse patient.[facility] CenterIn the event this information is protected by the Federal Confidentiality of Alcohol and Drug Abuse Patient Records regulations: The Federal rules restrict any use of the information to criminally investigate or prosecute any alcohol or drug abuse patient.[facility] CenterIn the event this information is protected by the Federal Confidentiality of Alcohol and Drug Abuse Patient Records regulations: The Federal rules restrict any use of the information to criminally investigate or prosecute any alcohol or drug abuse patient.[facility] CenterIn the event this information is protected by the Federal Confidentiality of Alcohol and Drug Abuse Patient Records regulations: The Federal rules restrict any use of the information to criminally investigate or prosecute any alcohol or drug abuse patient.[facility] CenterIn the event this information is protected by the Federal Confidentiality of Alcohol and Drug Abuse Patient Records regulations: The Federal rules restrict any use of the information to criminally investigate or prosecute any alcohol or drug abuse patient.[facility] CenterIn the event this information is protected by the Federal Confidentiality of Alcohol and Drug Abuse Patient Records regulations: The Federal rules restrict any use of the information to criminally investigate or prosecute any alcohol or drug abuse patient.[facility] CenterIn the event this information is protected by the Federal Confidentiality of Alcohol and Drug Abuse Patient Records regulations: The Federal rules restrict any use of the information to criminally investigate or prosecute any alcohol or drug abuse patient.[facility] CenterIn the event this information is protected by the Federal Confidentiality of Alcohol and Drug Abuse Patient Records regulations: The Federal rules restrict any use of the information to criminally investigate or prosecute any alcohol or drug abuse patient.[facility] CenterIn the event this information is protected by the Federal Confidentiality of Alcohol and Drug Abuse Patient Records regulations: The Federal rules restrict any use of the information to criminally investigate or prosecute any alcohol or drug abuse patient.[facility] CenterIn the event this information is protected by the Federal Confidentiality of Alcohol and Drug Abuse Patient Records regulations: The Federal rules restrict any use of the information to criminally investigate or prosecute any alcohol or drug abuse patient.[facility] CenterIn the event this information is protected by the Federal Confidentiality of Alcohol and Drug Abuse Patient Records regulations: The Federal rules restrict any use of the information to criminally investigate or prosecute any alcohol or drug abuse patient.[facility] CenterIn the event this information is protected by the Federal Confidentiality of Alcohol and Drug Abuse Patient Records regulations: The Federal rules restrict any use of the information to criminally investigate or prosecute any alcohol or drug abuse patient.[facility] CenterIn the event this information is protected by the Federal Confidentiality of Alcohol and Drug Abuse Patient Records regulations: The Federal rules restrict any use of the information to criminally investigate or prosecute any alcohol or drug abuse patient.[facility] Reason for Visit (unrecogniz ed section and [...] Care Teams (unrecognized sec tion and content) Skin Washer Relationship Specialty Start Date End Date Santo Taveras MD [address] [place] [address] PCP - General Family Practice 09/18/15 [facility] [address] [place] [address] Pharmacist Pharmacy 04/14/19 Yazmin Meade [facility] [address] [place] [address] Pharmacist Pharmacy 10/31/20 Skin Washer Relationship Specialty Start Date End Date Santo Taveras MD [address] [place], [place] [address] PCP - General Family Practice 09/18/15 [facility] [address] [place] [address] Pharmacist Pharmacy 04/14/19 [facility] [address] [facility] [place] [address] Pharmacist Pharmacy 10/31/20 Skin Washer Relationship Specialty Start Date End Date Santo Taveras MD [address] [facility] [place] [address] PCP - General Family Practice 09/18/15 [facility] [address] [facility] [place] [address] Pharmacist Pharmacy 04/14/19 [facility] [address] [facility] [place] [address] Pharmacist Pharmacy 10/31/20 Skin Washer Relationship Specialty Start Date End Date Santo Taveras MD [address] [facility] [place] [address] PCP - General Family Practice 09/18/15 [facility] [address] [facility] [place] [address] Pharmacist Pharmacy 04/14/19 [facility] [address] [facility] [address] Pharmacist Pharmacy 10/31/20 Skin Washer Relationship Specialty Start Date End Date Santo Taveras MD [address] [facility] [place] [address] PCP - General Family Practice 09/18/15 Jenny Brooke, [facility] [address] [place] [address] Pharmacist Pharmacy 04/14/19 [facility] [address] [facility] [address] Pharmacist Pharmacy 10/31/20 Skin Washer Relationship Specialty Start Date End Date Santo Taveras MD [address] [place] [address] PCP - General Family Practice 09/18/15 [facility]manSh[facility] [address] [facility] [place] [address] Pharmacist Pharmacy 04/14/19 [facility] [address] [place] [address] Pharmacist Pharmacy 10/31/20 Skin Washer Relationship Specialty Start Date End Date Santo Taveras MD [address] [facility] [place] [address] PCP - General Family Practice 09/18/15 [facility] [address] [facility] [address] Pharmacist Pharmacy 04/14/19 [facility] [address] [place] [address] Pharmacist Pharmacy 10/31/20 Skin Washer Relationship Specialty Start Date End Date Santo Taveras MD [address] [place] [address] PCP - General Family Practice 09/18/15 [facility] [address] [facility] [place] [address] Pharmacist Pharmacy 04/14/19 Yazmin Meade, [facility] [address] [facility] [place] [address] Pharmacist Pharmacy 10/31/20 Skin Washer Relationship Specialty Start Date End Date Santo Taveras MD [address] [facility] [address] PCP - General Family Medicine 09/18/15 Jenny Brooke, [facility] [address] [facility] [place] [address] Pharmacist Pharmacy 04/14/19 [facility] [address] [facility] [place] [address] Pharmacist Pharmacy 10/31/20 Skin Washer Relationship Specialty Start Date End Date Santo Taveras MD [address] [facility] [address] [place] [address] PCP - General Family Medicine 09/18/15 Jenny Boroke, [facility] [address] [facility] [place] [address] Pharmacist Pharmacy 04/14/19 [facility] [address] [facility] [place] [address] Pharmacist Pharmacy 10/31/20 Skin Washer Relationship Specialty Start Date End Date Santo Taveras MD [address] [facility] [place] [address] PCP - General Family Medicine 09/18/15 Jenny Brooke, [facility] [address] [facility] [place] [address] Pharmacist Pharmacy 04/14/19 [facility] [address] [facility] [address] Pharmacist Pharmacy 10/31/20 Skin Washer Relationship Specialty Start Date End Date Santo Taveras MD [address] [facility] [place] [address] PCP - General Family Medicine 09/18/15 Jenny Brooke, [facility] [address] [facility] [address] Pharmacist Pharmacy 04/14/19 FarhanYazmin fierro, [facility] [address] [facility] [place] [address] Pharmacist Pharmacy 10/31/20 Skin Washer Relationship Specialty Start Date End Date Santo Taveras MD [address] [facility] [address] PCP - General Family Medicine 09/18/15 Jenny Brooke, [facility] [address] [facility] [place] [address] Pharmacist Pharmacy 04/14/19 FarhanYazmin fierro, [facility] [address] [facility] [place] [address] Pharmacist Pharmacy 10/31/20 Skin Washer Relationship Specialty Start Date End Date Santo Taveras MD [address] [facility] [address] PCP - General Family Medicine 09/18/15 Jenny Brooke, [facility] [address] [facility] [place] [address] Pharmacist Pharmacy 04/14/19 Yazmin Meade, [facility] [address] [facility] [place] [address] Pharmacist Pharmacy 10/31/20 Skin Washer Relationship Specialty Start Date End Date Santo Taveras MD [address] [facility] [address] PCP - General Family Medicine 09/18/15 Jenny Brooke, [facility] [address] [facility] [place] [address] Pharmacist Pharmacy 04/14/19 FarhanYazmin fierro, [facility] [address] [facility] [place] [address] Pharmacist Pharmacy 10/31/20 Skin Washer Relationship Specialty Start Date End Date Santo Taveras MD [address] [facility] [place] [address] PCP - General Family Medicine 09/18/15 StamfordJenny chatman, [facility] [address] [place] [address] Pharmacist Pharmacy 04/14/19 Yazmin Meade, [facility] [address] [facility] [place] [address] Pharmacist Pharmacy 10/31/20 Skin Washer Relationship Specialty Start Date End Date Santo Taveras MD [address] [facility] [place] [address] PCP - General Family Medicine 09/18/15 [facility] [address] [facility] [facility] [place] [address] Pharmacist Pharmacy 04/14/19 Yazmin Meade, [facility] [address] [facility] [place] [address] Pharmacist Pharmacy 10/31/20 Skin Washer Relationship Specialty Start Date End Date Santo Taveras MD [address] [facility] [place] [address] PCP - General Family Medicine 09/18/15 Jenny Brooke, [facility] [address] [facility] [place] [address] Pharmacist Pharmacy 04/14/19 Yazmin Meade, [facility] [address] [facility] [place] [address] Pharmacist Pharmacy 10/31/20 Skin Washer Relationship Specialty Start Date End Date Santo Taveras MD [address] [facility] [address] PCP - General Family Medicine 09/18/15 Mendy Jenny, [facility] [address] [place] [address] Pharmacist Pharmacy 04/14/19 [facility]roSh[facility] [address] [place] [address] Pharmacist Pharmacy 10/31/20 Skin Washer Relationship Specialty Start Date End Date Santo Taveras MD [address] [place] [address] PCP - General Family Medicine 09/18/15 Yomaira Brookeily, [facility] [address] [place] [address] Pharmacist Pharmacy 04/14/19 [facility] [address] [place] [address] Pharmacist Pharmacy 10/31/20 Skin Washer Relationship Specialty Start Date End Date Santo Taveras MD [address] [place] [address] PCP - General Family Medicine 09/18/15 Yomaira Brookeily, [facility] [address] [place] [address] Pharmacist Pharmacy 04/14/19 [facility] [address] [place] [address] Pharmacist Pharmacy 10/31/20 Skin Washer Relationship Specialty Start Date End Date Santo Taveras MD [address] [place] [address] PCP - General Family Medicine 09/18/15 Jenny Brooke, [facility] [address] [place] [address] Pharmacist Pharmacy 04/14/19 [facility] [address] [place], [place] [address] Pharmacist Pharmacy 10/31/20 Skin Washer Relationship Specialty Start Date End Date Santo Taveras MD [address] [place], [place] [id number] PCP - General Family Medicine 09/18/15 [facility] [address] [place], [place] [address] Pharmacist Pharmacy 04/14/19 FOR RECORDS PERTAINING TO [...] BE BASED ON THE PRIMARY CLINICAL RECORDS. [employer] provides no warranty or guarantee of the accuracy or completeness of information in this document.
[2023-12-15] MEDS: Pantoprazole Sodium 40 MG in 0.9% Normal Saline (100mL MB+) 100 ML 330 MG IV (08:26)
[2023-12-15] MEDS: 0.9% Saline Lock 10 ML Syringe IV ×3 (08:27→19:37)
--- OUTSIDE RECORDS SUMMARY | 2023-12-15 08:30 | XMS RPT_ITS | CCD ---
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 Name Role Phone JOLIE MARCELONETH E Unavailable Unavailable DAVIAN, BHARATH E Unavailable Unavailable TAY ALLISON Unavailable Unavail able DAVIAN, BHARATH Unavailable Unavailable DAVIAN, BHARATH Unavailable Unavailable Kate, Santo Unavailable Unavailable DAVIAN, BHARATH Unavailable Unavailable DAVIAN, BHARATH Unavailable Unavailable Strathmore, Santo Unavailable Unavailable [place]more, Santo Unavailable Unavailable [facility] Unavailable Unavailable JOSE MEYER Admitting Unavailable JOSE MEYER Primary Care Unavailable JOSE MEYER Attending Unavailable KATE, SANTO Consulting Unavailable KATE, SANTO Referring Unavailable PROVIDER, UNKNOWN Consulting Unavailable KATE, SANTO Consulting Unavailable HORACIO ROSENTHAL Admitting Unavailable HORACIO ROSENTHAL Primary Care Unavailable HORACIO ROSENTHAL Attending Unavailable PROVIDER, UNKNOWN Consulting Unavailable Santo Taveras MD Primary Care Provider [facility], Jenny Unavailable [facility], Keti Unavailable Santo Taveras MD Primary Care Provider [facility], Jenny Unavailable [facility], Keti Unavailable Santo Taveras MD Primary Care Provider [facility], Jenny Unavailable [facility], Keti Unavailable Santo Taveras MD Primary Care Provider [facility], Jenny Unavailable [facility], Keti Unavailable [facility], [...] SODIUM] Drug Allergy 8 Other: See Comments [facility] Repository (20 sources) amoxicillin; Translations: [AMOXICILLIN] Drug Allergy 7 Diarrhea [facility] Rep[facility] (20 sources) metFORMIN; Translations: [METFORMIN] Drug Allergy 7 Diarrhea [facility] Rep[facility] (20 sources) Shellfish; Translations: [SHELLFISH] Propensity to adverse reactions to food (disorder) 8 Diarrhea, Vomiting [facility] Rep[facility] Medications Current Medications Medication Drug Class(es) [...] disease (20 sources) Atherosclerotic heart disease of [place] coronary artery without angina pectoris; Translations: [Coronary [...] sources) Long-term current use of anticoagulant; Translations: [residential (current) use of 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] Onset: 01-10-2017 01-10-2017 Episodic Other aftercare (1 source) residential (current) use of 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; 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] Onset: 01-10-2017 Episodic Other aftercare (1 source) Other senior care (current) drug therapy; Translations: [Current use of [...] 162.6 cm Santo Taveras MD Work Phone: [facility] 05-07-2023 10:43-0400 Body weight 65.41 kg Santo Taveras MD Work Phone: [facility] 05-07-2023 10:43-0400 Diastolic blood pressure 52 mm[Hg] Santo Taveras MD Work Phone: [facility] 05-07-2023 10:43-0400 Heart rate 65 /min Santo Taveras MD Work Phone: [facility] 05-07-2023 10:43-0400 SaO2% (BldA) [Mass fraction] 97 % Santo Taveras MD Work Phone: [facility] 05-07-2023 10:43-0400 Systolic blood pressure 106 mm[Hg] Santo Taveras MD Work Phone: [facility] 01-29-2023 10:19-0400 Body weight 64.41 kg Santo Taveras MD Work Phone: [facility] 01-29-2023 10:19-0400 Diastolic blood pressure 62 mm[Hg] Santo Taveras MD Work Phone: [facility] 01-29-2023 10:19-0400 Heart rate 70 /min Santo Taveras MD Work Phone: [facility] 01-29-2023 10:19-0400 SaO2% (BldA) [Mass fraction] 97 % Santo Taveras MD Work Phone: [facility] 01-29-2023 10:19-0400 Systolic blood pressure 112 mm[Hg] Santo Taveras MD Work Phone: [facility] 01-01-2023 10:18-0500 Body temperature 97.2 [degF] NA Rodriguez PA-C Work Phone: [facility] 01-01-2023 10:18-0500 Body weight 63.5 kg NA Rodriguez PA-C Work Phone: [facility] 01-01-2023 10:18-0500 Diastolic blood pressure 82 mm[Hg] NA Rodriguez PA-C Work Phone: [facility] 01-01-2023 10:18-0500 Heart rate 76 /min NA Rodriguez PA-C Work Phone: [facility] 01-01-2023 10:18-0500 Respiratory rate 16 /min NA Rodriguez PA-C Work Phone: [facility] 01-01-2023 10:18-0500 SaO2% (BldA) [Mass fraction] 96 % NA Rodriguez PA-C Work Phone: [facility] 01-01-2023 10:18-0500 Systolic blood pressure 166 mm[Hg] NA Rodriguez PA-C Work Phone: [facility] 11-27-2022 09:01-0500 Diastolic blood pressure 71 mm[Hg] Mi Nurse Work Phone: [facility] 11-27-2022 09:01-0500 Heart rate 71 /min Mi Nurse Work Phone: [facility] 11-27-2022 09:01-0500 Systolic blood pressure 164 mm[Hg] Mi Nurse Work Phone: [facility] 10-02-2022 09:14-0500 Body weight 62.14 kg Santo Taveras MD Work Phone: [facility] 10-02-2022 09:14-0500 Diastolic blood pressure 72 mm[Hg] Santo Taveras MD Work Phone: [facility] 10-02-2022 09:14-0500 Heart rate 74 /min Santo Taveras MD Work Phone: [facility] 10-02-2022 09:14-0500 SaO2% (BldA) [Mass fraction] 99 % Santo Taveras MD Work Phone: [facility] 10-02-2022 09:14-0500 Systolic blood pressure 126 mm[Hg] Santo Taveras MD Work Phone: [facility] 07-17-2022 09:43-0400 Diastolic blood pressure 68 mm[Hg] Mi Nurse Work Phone: [facility] 07-17-2022 09:43-0400 Heart rate 74 /min Mi Nurse Work Phone: [facility] 07-17-2022 09:43-0400 Systolic blood pressure 113 mm[Hg] Mi Nurse Work Phone: [facility] 06-27-2022 11:50-0400 SaO2% (BldA) [Mass fraction] 99 % NA Rodriguez PA-C Work Phone: [facility] 06-27-2022 11:32-0400 Diastolic blood pressure 40 mm[Hg] NA Rodriguez PA-C Work Phone: [facility] 06-27-2022 11:32-0400 Systolic blood pressure 78 mm[Hg] NA Rodriguez PA-C Work Phone: [facility] 06-27-2022 11:07-0400 Body weight 60.33 kg NA Rodriguez PA-C Work Phone: [facility] 06-27-2022 11:07-0400 Heart rate 78 /min NA Rodriguez PA-C Work Phone: [facility] 06-27-2022 11:07-0400 Respiratory rate 14 /min NA Rodriguez PA-C Work Phone: [facility] Encounters Encounter Date Encounter Type Care Provider Facility Start: 11-12-2023 End: 11-13-2023 ambulatory Talya RODRIGUEZ Facility:[facility] Start: 11-12-2023 End: 11-13-2023 ambulatory Talya RODRIGUEZ Facility:[facility] Start: 11-03-2023 End: 11-04-2023 ambulatory [facility] Facility:[facility] Start: 09-30-2023 Refill Santo Taveras MD [...] Activity Detail Author Start: 09-17-2024 Colonoscopy COLONOSCOPY [facility] Start: 05-14-2024 Hepatitis C antibody , confirmatory test DILATED RETINAL EXAM [facility] Start: 05-07-2024 3 comp foot exam completed DIABETIC FOOT EXAM [facility] Start: 05-07-2024 ANNUAL PCP TEAM KENO ATTENDANT ABRAM DISEASE VISIT ANNUAL PCP TEAM CHRONIC DISEASE VISIT [facility] Start: 05-07-2024 BP CONTROLLED (<130/80) BP CONTROLLE D (<130/80) [facility] Start: 01-30-2024 ANNUAL PCP TEAM KENO ATTENDANT ABRAM DISEASE VISIT ANNUAL PCP TEAM CHRONIC DISEASE VISIT [facility] Start: 01-30-2024 BP CONTROLLED (<130/80) BP CONTROLLE D (<130/80) [facility] Start: 01-30-2024 COVID-19 VACCINE (#1) COVID-19 VACCI NE (#1) [facility] Immunizations Immunization Date Immunization Notes Care Provider Zehra staton 06-24-2019 influenza virus vacc ine, unspecified formulation 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 [facility] 09-18-2015 influenza, high dose seasonal, preservative-free Santo Taveras MD Work Phone: [facility] 09-18-2015 pneumococcal conjuga te vaccine, 13 valent Santo Taveras MD Work Phone: [facility] 07-28-2014 influenza, high dose seasonal, preservative-free Santo Taveras MD Work Phone: [facility] 10-14-2013 influenza virus vacc ine, unspecified formulation Santo Taveras MD Work Phone: [facility] 10-13-2012 influenza virus vacc ine, unspecified formulation Santo Taveras MD Work Phone: [facility] 06-13-2011 zoster vaccine, live Santo Taveras MD Work Phone: [facility] Work Phone: 06-12-2009 pneumococcal polysaccharide vaccine, 23 valent Santo Taveras MD Work Phone: [facility] Work Phone: 04-13-2007 tetanus toxoid, redu fatemeh diphtheria toxoid, and acellular pertussis vaccine, adsorbed Santo Taveras MD Work Phone: [facility] Work Phone: Payers Date Payer Category Payer Medicare [id number] 2018 Unknown ANTHEM BLUE CROS S AND BLUE SHIELD ANTHEM MEDIBLUE O [id number] 2018-Present [id number] [place], [place] [address]O [id number] 2018 Unknown ANTHEM BLUE CROS S AND BLUE SHIELD ANTHEM MEDIBLUE O [id number] 2018-Present [phone] [id number] [place], [place] [id number] O [id number] 2018 Unknown [id number] 1945 Unknown [id number] 1945 Unknown [id number] Unknown [id number] Social History Date Type Detail Facility Start: 11-28-2014 End: 07-17-2022 Tobacco smoking status NHIS Never smoked tobacco [facility] Work Phone: Start: 12-18-2021 End: 05-07-2023 Alcohol intake Current non-drinker of alcohol (finding) [facility] Start: 1945 Sex Assigned At Not on file [facility] Start: 03-14-2022 End: 10-02-2022 Exposure to SARS-CoV-2 (event) Not sure [facility] Start: 11-28-2014 End: 07-17-2022 Tobacco use and exposure Smokeless tobacco non-user [facility] Start: 01-29-2023 End: 05-07-2023 History of Social function [facility] Work Phone: Start: 01-29-2023 End: 05-07-2023 Tobacco use panel [facility] Work Phone: Adult Depression Screening Assessment 0 [facility] Work Phone: Medical Equipment Procedure Code Equipment Code Equipment Origin al Text Equipment Identifier Dates Use as directed once daily as directed DM: yes Insulin: yes DX: [id number] Start: 10-19-2019 Clinical Notes 03-26-2018 to 11-12-2023 Telephone Encounter - [place] Lazara Mosley - 09/30/2023 8:36 AM ESTTelephone Encounter - Herlinda Dickinson MSW - 07/22/2023 11:10 AM Mary Garcia [employer] - 07/02/2023 8:30 AM EDT Note Date & Type Note Facility 11-12-2023 Note HNO ID: [id number] Author: Talya RODRIGUEZ PA-C Service: ? Author Type: Physician Marketing Regional Consultant Type: Progress Notes Filed: 11/12/2023 12:27 Note Text: 78 year old female with c/o here for 6 month follow up Doing well aside from stress Lives with daughter who is . 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 [facility] 09-30-2023 Miscellaneous Notes Patient has [...] patient. Lazara Mosley documented in this encounter [facility] 07-22-2023 Miscellaneous Notes Rambo called Sw and noted that she did not receive [employer] application for [employer]. Rambo noted that she will mail application again to patient to work on completing. Patient notes that she will work on completing and bring in to Dr. Taveras office when complete. documented in this encounter [facility] 07-02-2023 Note HNO ID: [id number] Author: Mary Hammer Mammo Tech Service: ? Author Type: Coverage Specialist Rn Type: Progress Notes Filed: 07/02/2023 8:49 AM [...] Porfirio Walden July 02, 2023 8:28 AM [facility] 07-02-2023 History of Present illness [...] IV DATA: Not applicable SIGNED BY: Angelic WaldenOrate Delfino July 02, 2023 8:28 AM documented in this encounter [facility] 06-29-2023 Miscellaneous Notes Patient phones requesting [...] Dafne Sams [employer] documented in this encounter [facility] 05-08-2023 Miscellaneous Notes Kellie informed and verbalized understanding. Tierney White Labs are up. Increase trulicity. Recheck a1c in three months. Watch diet. documented in this encounter [facility] 05-07-2023 Note HNO ID: [id number] Author: Santo Taveras MD Service: ? Author [...] bouts of vertigo. 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 Last episode of vertigo was on 03/24/23. Only lasts for a day and has happened twice. No neuro issues. Red flags for re-assessment reviewed with patient in detail. Consider vestibular therapy. HLD: No myalgias Follows with Cardiology. Still on Eliquis and Verapamil. Having eyelid lift surgery on 05/28/[address] Richardson at [facility]. Component Latest Ref Rng AND Units 01/29/2023 [...] percutaneous left heart catheterization 06/24/11 done at [facility] Malignant neoplasm of breast (female), unspecified site [...] 06/11/2007 LEFT TO (more content not included)... [facility] 05-07-2023 History of Present illness [...] bouts of vertigo. 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 Last episode of vertigo was on 03/24/23. Only lasts for a day and has happened twice. No neuro issues. Red flags for re-assessment reviewed with patient in detail. Consider vestibular therapy. HLD: No myalgias Follows with Cardiology. Still on Eliquis and Verapamil. Having eyelid lift surgery on 05/28/[address] Richardson at [facility]. 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 Osteopenia, unspecified location - ICD9: 733.90, ICD10: M85.80 Up to date on bone density. 8. Malignant neoplasm of female breast, unspecified estrogen receptor status, unspecified laterality, unspecified site of breast (HCC) - ICD9: 174.9, ICD10: C50.919 - mammogram Santo Taveras MD documented in this encounter [facility] 03-06-2023 Note Patient Outreach ( PO) KELLIE DOZIER ([id number]) 1945 F NFR Date Time Provider Department 03/06/23 SANTO TAVERAS During your visit today, we recorded the following information about you: Nathaniel Brownlee 03/06/2023 12:02 PM Signed Kellie Dozier is identified through a medication adherence outreach initiative based on pharmacy claims data from [employer] (insurer) for SERA medication(s) and Statin medication(s). [...] [D12.6] 10/17/2011 10/02/2022 Diverticulitis [K57.92] 10/24/2011 10/02/2022 residential current use of anticoagulant [Z79.01]01/10/2017 Persistent atrial fibrillation (HCC) [I48.19] 01/10/2017 Tendonitis, Achilles, left [M76.62] 03/26/2018 06/04/2018 Tendonitis, Achilles, right [M76.61] 03/26/2018 06/04/2018 Nonrheumatic mitral valve regurgitation [I34.0] 06/17/2021 History of colon polyps [Z86.010] Encounter Status:Closed by NATHANIEL BROWNLEE on 03/06/23 [facility] 03-06-2023 Miscellaneous Notes Patient phones requesting refills as follows: Pharmacy comment: Please clarify the directions for this prescription. Requested Prescriptions Pending Prescriptions Disp Refills lisinopril (ZESTRIL) 40 mg tablet [Pharmacy Med Name: LISINOPRIL 40MG TAB] 90 tablet 3 Sig: TAKE 1/2 (ONE-HALF) TABLET BY MOUTH ONCE DAILY Please review and advise. Swati aHll LPN documented in this encounter [facility] 03-06-2023 Note HNO ID: [id number] Author: Nathaniel Brownlee Service: ? Author Type: ? Type: Progress Notes Filed: 03/06/2023 12:02 PM Note Text: Kellie Dozier is identified through a medication adherence outreach initiative based on pharmacy claims data from [employer] (insurer) for SERA medication(s) and Statin medication(s). [...] Sent refill request for lisinopril Nathaniel Brownlee [facility] 03-06-2023 Miscellaneous Notes Patient reviewed for Population Health Medication Adherence Pended the following prescription(s) for review. Requested Prescriptions Pending Prescriptions Disp Refills lisinopril (ZESTRIL) 40 mg tablet 90 tablet 3 Sig: Take 0.5 tablets by mouth once daily. Future Appointments Date Time Provider Department Center 05/07/2023 11:00 AM Santo Taveras MD [facility] Please review and refill if appropriate. Thank you. Nathaniel Brownlee March 06, 2023 12:03 PM documented in this encounter [facility] 01-29-2023 Note HNO ID: [id number] Author: Santo Taveras MD Service: ? Author [...] percutaneous left heart catheterization 06/24/11 done at [facility] Malignant neoplasm of breast (female), unspecified site [...] Mother DVT Fa (more content not included)... [facility] 01-29-2023 History of Present illness [...] percutaneous left heart catheterization 06/24/11 done at [facility] Malignant neoplasm of breast (female), unspecified site 1998 Breast cancer right OBESITY 12/16/2005 Osteoarthritis of right knee Osteopenia 05/21/2010 Paroxysmal SVT (supraventricular tachycardia) ([facility]) Dr Marcelo Pure hypercholesterolemia TUBERCULIN [...] <130/80 3. Atherosclerosis of coronary artery of [place] heart without angina pectoris, unspecified vessel or [...] Santo Taveras MD documented in this encounter [facility] 01-28-2023 Miscellaneous Notes Rambo took below applications up to [address] office. Patient spoke with Rambo regarding Kate Cares-Trulicity and Basaglar. 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 Patient reports that she is also keeping an eye on how much she is spending for Exec for Eliquis. Jennings Winston has a 3% spend out on prescriptions. Rambo will provide Dr. Taveras office with Kate Cares and [employer] applications along with consent for release forms. Sw left patient message to call Sw back in regards to Kate [facility], [place] PAP for Trulicity and Basaglar. Rambo received note that states patient yearly application ends 03/25/23. Sw will talk with patient about reapplying to program for above medications. documented in this encounter [facility] 01-16-2023 Miscellaneous Notes Pharmacy verified in [facility] Patient has been identified by name and [...] Genet Krishna Pss documented in this encounter [facility] 01-01-2023 Note HNO ID: [id number] Author: Talya Rodriguez PA-C Service: ? Author Type: Physician Marketing Regional Consultant Type: Progress Notes Filed: 01/01/2023 12:55 PM [...] fibrillation (hcc) Atherosclerosis of coronary artery of [place] heart without angina pectoris, unspecified vessel or [...] Abs Lymph 1.00 - 4.00 k/uL 2.03 [place]% % 9.9 Abs [place] <0.87 k/uL 0.78 Eosin% % 1.8 Abs [...] percutaneous left heart catheterization 06/24/11 done at [facility] Malignant neoplasm of breast (female), unspecified site [...] TRANSORAL BIOPSY SINGLE/MU (more content not included)... [facility] 01-01-2023 Instructions M Forrest Rodriguez [...] a [place]-Hallpike position test. You start the [place]-Hallpike test by sitting upright on the examining [...] side, with your head angled upward about longterm. (Imagine that you are looking at the [...] of hearing or severe headache. Published by [employer]. This content is reviewed periodically and is subject to change as new health information becomes available. The information is intended to inform and educate and is not a replacement for medical evaluation, advice, diagnosis or treatment by a healthcare professional. Developed by [employer] Copyright 2007 [employer] and/or one of its subsidiaries. All Rights Reserved. Special Instructions: See information from pharmacy on Zofran and meclizine. Copyright [employer] 2007 Adult Health Advisor Copyright 2007 [employer]. All rights reserved. - www.[employer] documented in this encounter [facility] 01-01-2023 History of Present illness Narrative [...] fibrillation (hcc) Atherosclerosis of coronary artery of [place] heart without angina pectoris, unspecified vessel or [...] Abs Lymph 1.00 - 4.00 k/uL 2.03 [place]% % 9.9 Abs [place] <0.87 k/uL 0.78 Eosin% % 1.8 Abs [...] percutaneous left heart catheterization 06/24/11 done at [facility] Malignant neoplasm of breast (female), unspecified site [...] (supraventricular tachycardia) (HCC) Osteoarthritis of Right Knee residential current use of anticoagulant Persistent Atrial Fibrillation [...] I48.19 3. Atherosclerosis of coronary artery of [place] heart without angina pectoris, unspecified vessel or [...] Talya Rodriguez PA-C documented in this encounter [facility] 11-27-2022 Miscellaneous Notes Pt called and is notified of providers message and instructions. Pt voices understanding. Pt schedules 12/25/22 with [place] nurse. Lisa Barber RN Stop current verapamil. [...] Franca Atwood LPN documented in this encounter [facility] 11-27-2022 Note HNO ID: [id number] Author: Franca Atwood LPN Service: ? Author [...] after review by PCP. Franca Atwood LPN [facility] 11-27-2022 History of Present illness [...] Franca Atwood LPN documented in this encounter [facility] 11-17-2022 Miscellaneous Notes Patient has been [...] advise. Genet Choi documented in this encounter [facility] 11-11-2022 Miscellaneous Notes Pt called and is notified of providers message and instructions. Pt voices understanding. She states her BP this morning was 151/65. Pt was set up with BP check with [place] nurse on 11/20/22. Lisa Barber RN No although she was to do bp check already and has not done that. Patient has been off the HCTZ for about 1 month and had repeat labs drawn on 11/06/22. Is she to resume HCTZ? documented in this encounter [facility] 10-03-2022 Miscellaneous Notes Patient was notified and verbalized understanding Leonela Beckman Ma Sugars slightly higher. Watch the diet. Rest of labs ok. Calcium is borderline. Can be due to her hctz Lets stop it. Recheck labs and bp in one month documented in this encounter [facility] 10-02-2022 Instructions Santo Taveras MD - 10/02/2022 9:28 AM EST documented in this encounter [facility] 10-02-2022 History of Present illness Narrative [...] gi upset: Yes Still seeing Cardiology at [place]. No nitro. No unusual bleeding or bruising [...] percutaneous left heart catheterization 06/24/11 done at [place] Malignant neoplasm of breast (female), unspecified site [...] ASSESSMENT/PLAN: 1. Atherosclerosis of coronary artery of [place] heart without angina pectoris, unspecified vessel or [...] C50.919 - call if an issues. 11. residential current use of anticoagulant - ICD9: V58.61, [...] months and prn. documented in this encounter [facility] 09-16-2022 Miscellaneous Notes Patient has been identified by name and date of : Yes Requested Prescriptions Pending Prescriptions Disp Refills hydroCHLOROthiazide (HYDRODIURIL, ESIDRIX) 12.5 mg capsule 90 capsule 1 Sig: Take 1 capsule by mouth once daily. RX INSTRUCTIONS: Patient aware RX will be sent to pharmacy. No need to notify patient. Griselda Farley documented in this encounter [facility] 07-18-2022 Miscellaneous Notes Pt called and [...] Franca Atwood LPN documented in this encounter [facility] 07-17-2022 History of Present illness Narrative [...] Franca Atwood LPN documented in this encounter [facility] 06-27-2022 Instructions Talya Rodriguez PA-C - 06/27/2022 11:36 AM EDT Cut Lisinopril in half = 20mg daily instead of 40mg Push fluids, eat a little salt documented in this encounter [facility] 06-27-2022 History of Present illness Narrative Images from the original note were not included. 77 year old female with c/o here for follow up Doing well. Nonrheumatic mitral valve regurgitation (primary encounter diagnosis) Persistent atrial fibrillation (hcc) Paroxysmal svt (supraventricular tachycardia) (hcc) residential current use of anticoagulant Atherosclerosis of coronary artery of [place] heart without angina pectoris, unspecified vessel or [...] was preserved with LVEF of 70% 05/11/2009 [facility] transthoracic echo: LV size plus LV [...] Knee Constipation Benign Neoplasm of Colon Diverticulitis residential current use of anticoagulant Persistent Atrial Fibrillation [...] 424.0, ICD10: I34.0 (primary diagnosis) Follows with [facility] cardiology, stable 2. Persistent atrial fibrillation (HCC) - ICD9: 427.31, ICD10: I48.19 Controlled rate. Low BP today without sx. - COMP METABOLIC PANEL - ECG COMPLETE 3. 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 Atherosclerosis of coronary artery of [place] heart without angina pectoris, unspecified vessel or [...] Talya Rodriguez PA-C documented in this encounter [facility] 05-30-2022 Miscellaneous Notes May 30, 2022 PID: [id number] Kellie Dozier [address] [place] [address] Dear Ms. Dozier, We are pleased to [...] report will be kept on file at [facility] as part of your permanent medical record and are available for your continuing care. Thank you for allowing us to help in meeting your health care needs. Sincerely, Dr. Ramirez Interpreting Radiologist [facility] (Normal over 40) documented in this encounter [facility] 05-30-2022 History of Present illness Narrative [...] 2022 9:21 AM documented in this encounter [facility] 05-07-2022 History of Present illness Narrative [...] 2022 9:31 AM documented in this encounter [facility] 04-22-2022 Miscellaneous Notes Patient notified. Verbalized understanding. ordered Patient calls and is asking if provider can write an order for Mammogram. Please review and advise, Nicole Arriaga RN documented in this encounter [facility] 03-27-2022 Miscellaneous Notes Rambo now has received fax that states [employer] did receive application. Rambo spoke with patient and she notes that company told her they were missing part of her portion of application. Rambo will refax forms to [employer] [facility] for Eliquis. Rambo called Merlin Winston [...] make sure that it is being processed. Rmabo noted that Dr. Kate burton received [employer] application approval for patient basaglar and trulicity. documented in this encounter [facility] 03-25-2022 Miscellaneous Notes Fax received from [facility]. Pt is approved for Trulicity and basaglar for 12 months. Eli Thrasher Ma documented in this encounter [facility] 03-19-2022 Miscellaneous Notes Faxed forms. Will return to . On Dr Taveras's desk to sign. Clinical portion completed. [employer]-Eliquis and [employer]-Trulicity and Basaglar patient assistance forms. Rambo will take forms to Dr. Kate burton to complete prescriptions on forms and then fax forms to companies. [employer] fax#[phone] [employer] fax#[phone] documented in this encounter [facility] 02-25-2022 Miscellaneous Notes Patient called Rambo to request that Sw [facility]. Sw noted that she would patient the application forms. Patient reports that she will work on forms and send back to Dr. Taveras office for completion. documented in this encounter [facility] 02-13-2022 Miscellaneous Notes .Patient has been identified by name and date of : Yes Pending Prescriptions Disp Refills LISINOPRIL 40 MG TABLET 90 tablet 3 Sig: Take 1 tablet by mouth once daily. SHERLY: No RX INSTRUCTIONS: Patient aware RX will be sent to pharmacy. No need to notify patient. Racquel Haddad Pss documented in this encounter [facility] documented as of this encounter (statuses as of 02/13/2022) [facility] History of Past illness Narrative* Problem [...] of this encounter (statuses as of 02/25/2022) [facility] of [facility] Narrative* Problem [...] of this encounter (statuses as of 03/19/2022) [facility] of [facility] Narrative* Problem [...] of this encounter (statuses as of 03/25/2022) [facility] of [facility] Narrative* Problem [...] of this encounter (statuses as of 03/27/2022) [facility] Narrative* Problem [...] of this encounter (statuses as of 04/22/2022) [facility] Narrative* Problem [...] of this encounter (statuses as of 05/08/2022) [facility] Narrative* Problem [...] of this encounter (statuses as of 05/31/2022) [facility] Narrative* Problem [...] of this encounter (statuses as of 06/03/2022) [facility] Narrative* Problem [...] of this encounter (statuses as of 06/27/2022) [facility] Narrative* Problem [...] of this encounter (statuses as of 07/17/2022) [facility] Narrative* Problem [...] of this encounter (statuses as of 07/18/2022) [facility] Narrative* Problem [...] of this encounter (statuses as of 09/16/2022) [facility] Narrative* Problem [...] of this encounter (statuses as of 10/02/2022) [facility] Narrative* Problem [...] of this encounter (statuses as of 10/03/2022) [facility] Narrative* Problem [...] of this encounter (statuses as of 11/17/2022) [facility] Narrative* Problem [...] of this encounter (statuses as of 11/27/2022) [facility] Narrative* Problem [...] of this encounter (statuses as of 12/26/2022) [facility] Narrative* Problem [...] of this encounter (statuses as of 01/01/2023) [facility] Narrative* Problem [...] of this encounter (statuses as of 01/16/2023) [facility] Narrative* Problem [...] of this encounter (statuses as of 01/28/2023) [facility] Narrative* Problem [...] of this encounter (statuses as of 01/29/2023) [facility] Narrative* Problem [...] of this encounter (statuses as of 03/06/2023) [facility] Narrative* Problem [...] of this encounter (statuses as of 05/07/2023) [facility] Narrative* Problem [...] of this encounter (statuses as of 05/08/2023) [facility] Narrative* Problem [...] of this encounter (statuses as of 06/29/2023) [facility] Narrative* Problem [...] of this encounter (statuses as of 07/22/2023) [facility] Narrative* Problem [...] of this encounter (statuses as of 09/06/2023) [facility] Narrative* Problem [...] of this encounter (statuses as of 09/30/2023) [facility] Diagnosis Essential hypertension Unspecified essential hypertension [facility] Diagnosis Screening breast examination- Primary Breast screening, unspecified [facility] Diagnosis Postmenopausal Asymptomatic postmenopausal status (age-related) (natural) [facility] Diagnosis Screening breast examination Breast screening, unspecified [facility] Diagnosis Nonrheumatic mitral valve regurgitation- Primary Persistent atrial fibrillation (HCC) Atrial fibrillation Paroxysmal SVT (supraventricular tachycardia) (HCC) 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 Long-term (current) use of 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 Atherosclerosis of coronary artery of [place] heart without angina pectoris, unspecified vessel or [...] of colonic polyps [facility] Diagnosis Essential hypertension- Primary Unspecified essential hypertension [facility] Diagnosis Atherosclerosis of coronary artery of [place] heart without angina pectoris, unspecified vessel or [...] unspecified laterality, unspecified site of breast (HCC) residential current use of anticoagulant Long-term (current) use of 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 Osteopenia, unspecified location Hypercalcemia Need for hepatitis C screening test Special screening examination for other specified viral diseases [facility] Diagnosis Hypercalcemia- Primary documented in this encounter [place] note* Diagnosis Essential hypertension- Primary Unspecified essential hypertension documented in this encounter [place] note* Diagnosis Paroxysmal SVT (supraventricular tachycardia) (HCC)- Primary 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 tachycardia Persistent atrial fibrillation (HCC) Atrial fibrillation Atherosclerosis of coronary artery of [place] heart without angina pectoris, unspecified vessel or lesion type Essential hypertension Unspecified essential hypertension Mixed hyperlipidemia Nonrheumatic mitral valve regurgitation BPPV (benign paroxysmal positional vertigo), unspecified laterality Type 2 diabetes mellitus without complication, without long-term current use of insulin (HCC) [facility]* Diagnosis Vertigo- Primary Dizziness and giddiness Essential hypertension Unspecified essential hypertension Atherosclerosis of coronary artery of [place] heart without angina pectoris, unspecified vessel or lesion type Persistent atrial fibrillation (HCC) Atrial fibrillation Paroxysmal SVT (supraventricular tachycardia) (HCC) 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 tachycardia Type 2 diabetes mellitus without complication, without long-term current use of insulin (HCC) Malignant neoplasm of female breast, unspecified estrogen receptor status, unspecified laterality, unspecified site of breast (HCC) Osteopenia, unspecified location [facility]* Diagnosis Essential hypertension Unspecified essential hypertension documented in this encounter [place] note* Diagnosis Essential hypertension- Primary Unspecified essential hypertension Mixed hyperlipidemia Paroxysmal SVT (supraventricular tachycardia) (HCC) 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 tachycardia Persistent atrial fibrillation (HCC) Atrial fibrillation Type 2 diabetes mellitus without complication, without long-term current use of insulin (HCC) residential current use of anticoagulant Long-term (current) use of 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 Osteopenia, unspecified location Malignant neoplasm of female breast, unspecified estrogen receptor status, unspecified laterality, unspecified site of breast (HCC) Screening mammogram for breast cancer [facility]* Diagnosis Type 2 diabetes mellitus without complication, without long-term current use of insulin (HCC)- Primary [facility] Diagnosis Type 2 diabetes mellitus without complication, without long-term current use of insulin (HCC) documented in this encounter [place] note* Diagnosis Malignant neoplasm of female breast, unspecified estrogen receptor status, unspecified laterality, unspecified site of breast (HCC) [facility] Diagnosis Essential hypertension Unspecified essential hypertension documented in this encounter [facility] for referral (narrative)* Diagnostic Procedure Only (Routine) - Authorized Specialty Diagnoses / Procedures Referred By Contac t Referred To Contact [facility] Diagnoses Screening breast examination Procedures GENEVA SCREENING SCREENING MAMMOGRAPHY BI 2-VIEW BREAST INC Santo Moss MD [address] [place] [address] [facility] [address] [place] [address] Referral ID Status Reason Start Date Expiration Date Visits Requested Visits Authorized [id number] Authorized Auto-Generat ed Referral 04/22/2022 05/22/2023 1 1 T [facility] for referral (narrative)* Diagnostic Procedure Only (Routine) - Closed Specialty Diagnoses / Procedures [facility] Ref[facility] To Contact [facility] Diagnoses Screening breast examination Procedures GENEVA SCREENING SCREENING MAMMOGRAPHY BI 2-VIEW BREAST INC Santo Moss MD [address] [place] [address] [facility] [address] [place] [address] Referral ID Status Reason Start Date Expiration Date V isits Requested Visits Authorized [id number] Closed Auto-Generate d Referral 04/22/2022 05/22/2023 1 1 T [facility] for referral (narrative)* Outpatient Procedure (Routine) - Authorized Specialty Diagnoses / Procedures [facility] Diagnoses Persistent atrial fibrillation (HCC) Other specified hypotension Procedures ECG COMPLETE ECG ROUTINE ECG W/LEAST 12 LDS W/I&R Talya Rodriguez PA-C [address] [place] [address] [facility] [address] [place] [address] Referral ID Status Reason Start Date Expiration Date Visits Requested Visits Authorized [id number] Authorized Auto-Generat ed Referral 06/27/2022 06/27/2023 [address] [facility] for referral (narrative)* Diagnostic Procedure Only (Routine) - Authorized Specialty Diagnoses / Procedures Referred By Contac t Referred To Contact [facility] Diagnoses Malignant neoplasm of female breast, unspecified estrogen receptor status, unspecified laterality, unspecified site of breast (HCC) Procedures GENEVA SCREENING SCREENING MAMMOGRAPHY BI 2-VIEW BREAST INC Santo Moss MD [address] [place], [place] [id number] [facility] [address] [place] [address] Referral ID Status Reason Start Date Expiration Date Visits Requested Visits Authorized [id number] Authorized Auto-Generat ed Referral 05/07/2023 06/05/2024 [address] [facility] for referral (narrative)* Diagnostic Procedure Only (Routine) - Closed Specialty Diagnoses / Procedures Referred By Contac t Referred To Contact [facility] Diagnoses Malignant neoplasm of female breast, unspecified estrogen receptor status, unspecified laterality, unspecified site of breast (HCC) Procedures GENEVA SCREENING SCREENING MAMMOGRAPHY BI 2-VIEW BREAST INC Santo Moss MD [address] [place] [address] [facility] [address] [place] [address] Referral ID Status Reason Start Date Expiration Date V isits Requested Visits Authorized [id number] Closed Auto-Generate d Referral 05/07/2023 06/05/2024 [address] [facility] for visit Narrative* Diagnostic Procedure Only (Routine) - Closed Specialty Diagnoses / Procedures Referred By Contac t Referred To Contact [facility] Diagnoses Screening breast examination Procedures GENEVA SCREENING SCREENING MAMMOGRAPHY BI 2-VIEW BREAST INC Santo Moss MD [address] [place] [address] [facility] [address] [place] [address] Referral ID Status Reason Start Date Expiration Date V isits Requested Visits Authorized [id number] Closed Auto-Generate d Referral 04/22/2022 05/22/2023 1 1 [facility] for visit Narrative* Diagnostic Procedure Only (Routine) - Closed Specialty Diagnoses / Procedures Referred By lEia villegas Referred To Contact [facility] Diagnoses Malignant neoplasm of female breast, unspecified estrogen receptor status, unspecified laterality, unspecified site of breast (HCC) Procedures GENEVA SCREENING SCREENING MAMMOGRAPHY BI 2-VIEW BREAST INC Santo Moss MD [address] [place] [address] [facility] [address] [place] [address] Referral ID Status Reason Start Date Expiration Date V isits Requested Visits Authorized [id number] Closed Auto-Generate d Referral 05/07/2023 06/05/2024 1 1 [facility] Summary Purpose Family History No Family History Records FoundNo Family History Records FoundNo Family History Records FoundNo Family History Records Found Advance Directives No Advanced Directives Records FoundDocuments on File Type Date Recorded 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 Advance Directive(s) 09/17/2021 6:44 AM Advance Directive(s) 09/11/2020 10:43 AM Advance Directive(s) 11/13/2016 12:33 PM Advance Directive(s) 11/06/2016 12:34 PM Documents on File Type Date Recorded 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 Advance Directive(s) 09/17/2021 6:44 AM [...] CREATED AUTHOR AUTHOR'S ORGANIZ ATION 07/02/2018 [facility] DATE CREATED AUTHOR AUTHOR'S ORGANIZ ATION [facility]/06/2020 [facility] DATE CREATED AUTHOR AUTHOR'S ORGANIZ ATION 11/16/2023 [facility] Source Comments (unrecognize d section and content) In the event this informatio n is protected by the Federal Confidentiality of Alcohol and Drug Abuse Patient Records regulations: The Federal rules restrict any use of the information to criminally investigate or prosecute any alcohol or drug abuse patient.[facility] the event this information is protected by the Federal Confidentiality of Alcohol and Drug Abuse Patient Records regulations: The Federal rules restrict any use of the information to criminally investigate or prosecute any alcohol or drug abuse patient.[facility] the event this information is protected by the Federal Confidentiality of Alcohol and Drug Abuse Patient Records regulations: The Federal rules restrict any use of the information to criminally investigate or prosecute any alcohol or drug abuse patient.[facility] the event this information is protected by the Federal Confidentiality of Alcohol and Drug Abuse Patient Records regulations: The Federal rules restrict any use of the information to criminally investigate or prosecute any alcohol or drug abuse patient.[facility] the event this information is protected by the Federal Confidentiality of Alcohol and Drug Abuse Patient Records regulations: The Federal rules restrict any use of the information to criminally investigate or prosecute any alcohol or drug abuse patient.[facility] the event this information is protected by the Federal Confidentiality of Alcohol and Drug Abuse Patient Records regulations: The Federal rules restrict any use of the information to criminally investigate or prosecute any alcohol or drug abuse patient.[facility] the event this information is protected by the Federal Confidentiality of Alcohol and Drug Abuse Patient Records regulations: The Federal rules restrict any use of the information to criminally investigate or prosecute any alcohol or drug abuse patient.[facility] the event this information is protected by the Federal Confidentiality of Alcohol and Drug Abuse Patient Records regulations: The Federal rules restrict any use of the information to criminally investigate or prosecute any alcohol or drug abuse patient.[facility] the event this information is protected by the Federal Confidentiality of Alcohol and Drug Abuse Patient Records regulations: The Federal rules restrict any use of the information to criminally investigate or prosecute any alcohol or drug abuse patient.[facility] the event this information is protected by the Federal Confidentiality of Alcohol and Drug Abuse Patient Records regulations: The Federal rules restrict any use of the information to criminally investigate or prosecute any alcohol or drug abuse patient.[facility] HospitalIn the event this information is protected by the Federal Confidentiality of Alcohol and Drug Abuse Patient Records regulations: The Federal rules restrict any use of the information to criminally investigate or prosecute any alcohol or drug abuse patient.[facility] HospitalIn the event this information is protected by the Federal Confidentiality of Alcohol and Drug Abuse Patient Records regulations: The Federal rules restrict any use of the information to criminally investigate or prosecute any alcohol or drug abuse patient.[facility] HospitalIn the event this information is protected by the Federal Confidentiality of Alcohol and Drug Abuse Patient Records regulations: The Federal rules restrict any use of the information to criminally investigate or prosecute any alcohol or drug abuse patient.[facility] HospitalIn the event this information is protected by the Federal Confidentiality of Alcohol and Drug Abuse Patient Records regulations: The Federal rules restrict any use of the information to criminally investigate or prosecute any alcohol or drug abuse patient.[facility] HospitalIn the event this information is protected by the Federal Confidentiality of Alcohol and Drug Abuse Patient Records regulations: The Federal rules restrict any use of the information to criminally investigate or prosecute any alcohol or drug abuse patient.[facility] HospitalIn the event this information is protected by the Federal Confidentiality of Alcohol and Drug Abuse Patient Records regulations: The Federal rules restrict any use of the information to criminally investigate or prosecute any alcohol or drug abuse patient.[facility] HospitalIn the event this information is protected by the Federal Confidentiality of Alcohol and Drug Abuse Patient Records regulations: The Federal rules restrict any use of the information to criminally investigate or prosecute any alcohol or drug abuse patient.[facility] HospitalIn the event this information is protected by the Federal Confidentiality of Alcohol and Drug Abuse Patient Records regulations: The Federal rules restrict any use of the information to criminally investigate or prosecute any alcohol or drug abuse patient.[facility] HospitalIn the event this information is protected by the Federal Confidentiality of Alcohol and Drug Abuse Patient Records regulations: The Federal rules restrict any use of the information to criminally investigate or prosecute any alcohol or drug abuse patient.[facility] HospitalIn the event this information is protected by the Federal Confidentiality of Alcohol and Drug Abuse Patient Records regulations: The Federal rules restrict any use of the information to criminally investigate or prosecute any alcohol or drug abuse patient.[facility] HospitalIn the event this information is protected by the Federal Confidentiality of Alcohol and Drug Abuse Patient Records regulations: The Federal rules restrict any use of the information to criminally investigate or prosecute any alcohol or drug abuse patient.[facility] HospitalIn the event this information is protected by the Federal Confidentiality of Alcohol and Drug Abuse Patient Records regulations: The Federal rules restrict any use of the information to criminally investigate or prosecute any alcohol or drug abuse patient.[facility] HospitalIn the event this information is protected by the Federal Confidentiality of Alcohol and Drug Abuse Patient Records regulations: The Federal rules restrict any use of the information to criminally investigate or prosecute any alcohol or drug abuse patient.[facility] HospitalIn the event this information is protected by the Federal Confidentiality of Alcohol and Drug Abuse Patient Records regulations: The Federal rules restrict any use of the information to criminally investigate or prosecute any alcohol or drug abuse patient.[facility] HospitalIn the event this information is protected by the Federal Confidentiality of Alcohol and Drug Abuse Patient Records regulations: The Federal rules restrict any use of the information to criminally investigate or prosecute any alcohol or drug abuse patient.[facility] HospitalIn the event this information is protected by the Federal Confidentiality of Alcohol and Drug Abuse Patient Records regulations: The Federal rules restrict any use of the information to criminally investigate or prosecute any alcohol or drug abuse patient.[facility] HospitalIn the event this information is protected by the Federal Confidentiality of Alcohol and Drug Abuse Patient Records regulations: The Federal rules restrict any use of the information to criminally investigate or prosecute any alcohol or drug abuse patient.[facility] HospitalIn the event this information is protected by the Federal Confidentiality of Alcohol and Drug Abuse Patient Records regulations: The Federal rules restrict any use of the information to criminally investigate or prosecute any alcohol or drug abuse patient.[facility] HospitalIn the event this information is protected by the Federal Confidentiality of Alcohol and Drug Abuse Patient Records regulations: The Federal rules restrict any use of the information to criminally investigate or prosecute any alcohol or drug abuse patient.[facility] HospitalIn the event this information is protected by the Federal Confidentiality of Alcohol and Drug Abuse Patient Records regulations: The Federal rules restrict any use of the information to criminally investigate or prosecute any alcohol or drug abuse patient.[facility] HospitalIn the event this information is protected by the Federal Confidentiality of Alcohol and Drug Abuse Patient Records regulations: The Federal rules restrict any use of the information to criminally investigate or prosecute any alcohol or drug abuse patient.[facility] Reason for Visit (unrecogniz ed section [...] Care Teams (unrecognized sec tion and content) 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 Relationship Specialty Start Date End Date Santo Taveras MD [address] [place] [address] PCP - General Family Practice 09/18/15 [facility] [address] [place] [address] Pharmacist Pharmacy 04/14/19 Yazmin Meade [facility] [address] [place] [address] Pharmacist Pharmacy 10/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 Relationship Specialty Start Date End Date Santo Taveras MD [address] [place], [place] [address] PCP - General Family Practice 09/18/15 [facility] [address] [place] [address] Pharmacist Pharmacy 04/14/19 [facility]adeSaint [facility] [address] [facility] [place] [address] Pharmacist Pharmacy 10/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 Relationship Specialty Start Date End Date Santo Taveras MD [address] [facility] [address] PCP - General Family Practice 09/18/15 eJnny BrookeSaint [facility] [address] [facility] [place] [address] Pharmacist Pharmacy 04/14/19 [facility]Saint [facility] [address] [facility] [address] Pharmacist Pharmacy 10/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 Relationship Specialty Start Date End Date Santo Taveras MD [address] [facility] [place] [address] PCP - General Family Practice 09/18/15 [facility]Saint [facility] [address] [facility] [place] [address] Pharmacist Pharmacy 04/14/19 [facility] [address] [facility] [address] Pharmacist Pharmacy 10/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 Relationship Specialty Start Date End Date Santo Taveras MD [address] [facility] [address] PCP - General Family Practice 09/18/15 Jenny Brooke, [facility] [address] [facility] [address] Pharmacist Pharmacy 04/14/19 [facility] [address] [facility] [address] Pharmacist Pharmacy 10/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 Relationship Specialty Start Date End Date Santo Taveras MD [address] [facility] [address] PCP - General Family Practice 09/18/15 [place] PointJneny chatmanSaint [facility] [address] [facility] [place] [address] Pharmacist Pharmacy 04/14/19 [facility]Saint [facility] [address] [facility] [address] Pharmacist Pharmacy 10/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 Relationship Specialty Start Date End Date Santo Taveras MD [address] [facility] [place] [address] PCP - General Family Practice 09/18/15 [place] PointJennySaint [facility] [address] [facility] [place] [address] Pharmacist Pharmacy 04/14/19 [facility]Saint [facility] [address] [facility] [address] Pharmacist Pharmacy 10/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 Relationship Specialty Start Date End Date Santo Taveras MD [address] [facility] [address] PCP - General Family Practice 09/18/15 [place] PointYomairaJennyHonorHealth [facility] [address] [facility] [address] Pharmacist Pharmacy 04/14/19 Yazmin Meade, [facility] [address] [facility] [place] [address] Pharmacist Pharmacy 10/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 Relationship Specialty Start Date End Date Santo Taveras MD [address] [facility] [address] PCP - General Family Medicine 09/18/15 Jenny Brooke, [facility] [address] [facility] [place] [address] Pharmacist Pharmacy 04/14/19 [facility]adeSaint [facility] [address] [facility] [place] [address] Pharmacist Pharmacy 10/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 Relationship Specialty Start Date End Date Santo Taveras MD [address] [facility] [place] [address] PCP - General Family Medicine 09/18/15 Jenny Brooke, [facility] [address] [facility] [place] [address] Pharmacist Pharmacy 04/14/19 [facility]adeSaint [facility] [address] [facility] [place] [address] Pharmacist Pharmacy 10/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 Relationship Specialty Start Date End Date Santo Taveras MD [address] [facility] [place] [address] PCP - General Family Medicine 09/18/15 Jenny Brooke, [facility] [address] [facility] [place] [address] Pharmacist Pharmacy 04/14/19 [facility]adeSaint [facility] [address] [facility] [place] [address] Pharmacist Pharmacy 10/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 Relationship Specialty Start Date End Date Santo Taveras MD [address] [facility] [address] PCP - General Family Medicine 09/18/15 Jenny Brooke, [facility] [address] [facility] [address] Pharmacist Pharmacy 04/14/19 FarhanYazmin fierro, [facility] [address] [facility] [place] [address] Pharmacist Pharmacy 10/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 Relationship Specialty Start Date End Date Santo Taveras MD [address] [facility] [address] PCP - General Family Medicine 09/18/15 Jenny Brooke, [facility] [address] [facility] [place] [address] Pharmacist Pharmacy 04/14/19 FarhanYazmin fierro, [facility] [address] [facility] [place] [address] Pharmacist Pharmacy 10/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 Relationship Specialty Start Date End Date Santo Taveras MD [address] [facility] [address] PCP - General Family Medicine 09/18/15 Jenny Brooke, [facility] [address] [facility] [place] [address] Pharmacist Pharmacy 04/14/19 Yazmin Meade, [facility] [address] [facility] [place] [address] Pharmacist Pharmacy 10/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 Relationship Specialty Start Date End Date Santo Taveras MD [address] [facility] [address] PCP - General Family Medicine 09/18/15 Jenny Brooke, [facility] [address] [facility] [place] [address] Pharmacist Pharmacy 04/14/19 FarhanYazmin fierro, [facility] [address] [facility] [place] [address] Pharmacist Pharmacy 10/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 Relationship Specialty Start Date End Date Santo Taveras MD [address] [facility] [place] [address] PCP - General Family Medicine 09/18/15 [place] PointJenny chatman, [facility] [address] [place] [address] Pharmacist Pharmacy 04/14/19 Yazmin Meade, [facility] [address] [facility] [place] [address] Pharmacist Pharmacy 10/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 Relationship Specialty Start Date End Date Santo Taveras MD [address] [facility] [place] [address] PCP - General Family Medicine 09/18/15 Jenny [facility]Saint [facility] [address] [facility] [place] [address] Pharmacist Pharmacy 04/14/19 Yazmin Meade, [facility] [address] [facility] [place] [address] Pharmacist Pharmacy 10/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 Relationship Specialty Start Date End Date Santo Taveras MD [address] [facility] [place] [address] PCP - General Family Medicine 09/18/15 Jenny Brooke, [facility] [address] [facility] [place] [address] Pharmacist Pharmacy 04/14/19 Yazmin Meade, [facility] [address] [facility] [place] [address] Pharmacist Pharmacy 10/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 Relationship Specialty Start Date End Date Santo Taveras MD [address] [facility] [address] PCP - General Family Medicine 09/18/15 Mendy Jenny, [facility] [address] [place] [address] Pharmacist Pharmacy 04/14/[address] [facility] HospitalYazmin fierroSaint [facility] [address] [place] [address] Pharmacist Pharmacy 10/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 Relationship Specialty Start Date End Date Santo Taveras MD [address] [place] [address] PCP - General Family Medicine 09/18/15 Yomaira Brookeily, [facility] [address] [place] [address] Pharmacist Pharmacy 04/14/19 [facility]min [facility]adeSaint [facility] [address] [place] [address] Pharmacist Pharmacy 10/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 Relationship Specialty Start Date End Date Santo Taveras MD [address] [place] [address] PCP - General Family Medicine 09/18/15 Yomaira Brookeily, [facility] [address] [place] [address] Pharmacist Pharmacy 04/14/19 [facility]min [facility]adeSaint [facility] [address] [place] [address] Pharmacist Pharmacy 10/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 Relationship Specialty Start Date End Date Santo Taveras MD [address] [place] [address] PCP - General Family Medicine 09/18/15 Jenny Brooke, [facility] [address] [place] [address] Pharmacist Pharmacy 04/14/19 [facility]adeSaint [facility] [address] [place], [place] [address] Pharmacist Pharmacy 10/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 Relationship Specialty Start Date End Date Santo Taveras MD [address] [place], [place] [id number] PCP - General Family Medicine 09/18/15 Jenny [facility]okeSaint [facility] [address] [place], [place] [address] Pharmacist Pharmacy 04/14/19 FOR RECORDS PERTAINING TO [...] BE BASED ON THE PRIMARY CLINICAL RECORDS. [employer] provides no warranty or guarantee of the accuracy or completeness of information in this document.
[2023-12-15] MEDS: Pantoprazole Sodium 80 MG in 0.9% Normal Saline (100mL Bag) 80 ML 10 MG CONT INF ×2 (09:00→19:34)
[2023-12-15] MEDS: Pyridoxine HCl 100 MG Tablet PO (10:21)
[2023-12-15] MEDS: BRIMONIDINE 0.2% 5ML BOTTLE 1 DRP OPHTHALMIC ×2 (10:21→21:46)
--- NOTE | 2023-12-15 10:30 | CASEMGMT ---
KRISTIAN IVORY chart review: Patient was admitted 12/11-12/13/23 for GI Bleed. See assessment from 12/12/23. Patient was discharged to home with follow-up plans in place and script for Protonix. Patient had EGD that should duodenal ulcer, treated with heater probe per hospitalist. Patient was restarted on Eliquis. Patient [facility] ED on 12/15/23 for dark red emesis. Hgb 6.6, GI consulted. KRISTIAN IVORY in to room to discuss discharge needs and readmission. Patient states she was taking medications as prescribed. Patient denies needs at discharge. CM will continue to monitor this patient and plan for a safe discharge.
--- NOTE | 2023-12-15 11:36 | PCM.HP.STD ---
HPI - General General Date of Admission: 12/15/23 Date of Service: 12/15/23 Chief Complaint: Recurrent upper GI bleed HPI Narrative MALORIE KIRK, is a 78 F who presented to [facility] ED on morning of 12/15/2023 with recurrent upper GI bleed. Patient was recently hospitalized at [facility] from 12/11 to 12/13 for an upper GI bleed with acute blood loss anemia. Gastroenterology followed, EGD 12/12 showed a duodenal ulcer that was treated. Patient's hemoglobin level remained stable on 12/13, discussed with GI and patient was okay for discharge home on p.o. PPI twice daily. Decision was made to restart patient's home Eliquis 5 mg twice daily that she was on for A-fib. Patient stated that she began having nausea with coffee-ground emesis about 6 to 8 hours prior to admission. She denied any bright red blood hematemesis. She did report melena, which had been present for her since her recent hospitalization, but she denied passing any bright red blood or maroon-colored stool. Patient was found to have hemoglobin of 6.6 in the ED, down from 9.3 on 12/13. Was also found to be tachycardic but was maintaining an adequate blood pressure. Hospitalist was contacted at that time for admission. Patient seen at bedside in the ED, daughter present. Patient was laying comfortably in bed, in no acute distress. Patient did appear fairly pale and fatigued. Patient stated she had not had any further episodes of coffee-ground emesis since arrival to the ED. She denied any lightheadedness or dizziness at rest. She denied any abdominal pain or discomfort. No other acute concerns at this time. [facility] Medical History Atherosclerotic heart disease of [place] coronary artery without angina pectoris Essential hypertension GERD (gastroesophageal reflux disease) Liver mass Malignant neoplasm of right breast Old myocardial infarction Paroxysmal atrial fibrillation 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 tachycardia Presence of stent in coronary artery (~05/23/09) Pure hypercholesterolemia Type 2 diabetes mellitus Home Medications apixaban 5 mg tablet (Eliquis) 5 mg PO BID a.fib 09/06/19 [History Last Taken 12/14/23] cyanocobalamin (vitamin B-12) 1,000 mcg tablet 1,000 mcg PO DAILY vitamin deficient 09/06/19 [History Last Taken 12/14/23] pravastatin 80 mg tablet 80 mg PO QHS cholesterol 09/06/19 [History Last Taken 12/14/23] pyridoxine (vitamin B6) 100 mg tablet 100 mg PO DAILY vitamin deficient 09/06/19 [History Last Taken 12/14/23] nitroglycerin 0.4 mg sublingual tablet 0.4 mg sublingual Q5-15M PRN chest pain #90 tabs 09/08/19 [Rx Last Taken Unknown] insulin glargine U-300 conc 300 unit/mL (1.5 mL) subcutaneous pen 20 unit subcut QHS diabetes 08/14/21 [History Last Taken 12/14/23] dulaglutide 4.5 mg/0.5 mL subcutaneous pen injector (Trulicity) 4.5 mg subcut MO 08/06/23 [History Last Taken 12/07/23] verapamil 300 mg capsule 24hr pellet CT,ext.release 300 mg PO QHS blood pressure 08/06/23 [History Last Taken 12/14/23] brimonidine 0.2 % eye drops 1 drp ophthalmic (eye) BID Glaucoma 12/11/23 [History Last Taken 12/14/23] calcium carbonate 600 mg-vitamin D3 5 mcg (200 unit) tablet (Calcium 600 + D(3)) 1 tab PO DAILY vitamin deficient 12/11/23 [History Last Taken 12/14/23] lisinopril 40 mg tablet 20 mg PO DAILY HIG BLOOD PRESSURE 12/11/23 [History Last Taken 12/14/23] pantoprazole 40 mg tablet,delayed release 40 mg PO BID 30 days #60 tabs 12/13/23 [Rx Last Taken 12/14/23] Allergy/AdvReac Type Severity Reaction Status Date / Time alendronate sodium AdvReac Severe myalgias Verified 12/15/23 05:40 [From Fosamax] amoxicillin [Amoxicillin] AdvReac Nausea/Vom/ Verified 12/15/23 05:40 Diarrhea metformin AdvReac Nausea/Vom/ Verified 12/15/23 05:40 Diarrhea shellfish derived AdvReac Nausea/Vom/ Verified 12/15/23 05:40 Diarrhea Family History Mother Hypertension Diabetes CVA (cerebral vascular accident) CAD (coronary artery disease) Father History of DVT (deep vein thrombosis) Surgical History (Reviewed 08/06/23 @ 09:44 by Skyler Bradley ENVELOPE FOLDING MACHINE OPERATOR, ENVELOPE FOLDING MACHINE OPERATOR-C) History of eyelid surgery (05/28/23) History of total abdominal hysterectomy Presence of coronary angioplasty implant and graft (~05/23/09) S/P lumpectomy, right breast Social History household members: family housing: house Smoking Status: Never smoker alcohol intake: never substance use type: does not use caffeine: Yes Type: coffee Number of servings: 2 ROS Constitutional Constitutional: Reports fatigue and weakness; Denies chills or fever(s) Eyes Eyes: Denies change in vision Cardiovascular Cardiovascular: Reports lightheadedness and rapid heart rate; Denies chest pain, edema, palpitations or syncope Respiratory/Chest Respiratory/Chest: Reports shortness of breath with exertion; Denies cough, shortness of breath at rest or wheezing Gastrointestinal Gastrointestinal: Reports coffee ground emesis, diarrhea, melena, nausea and vomiting; Denies abdominal pain or constipation Genitourinary Genitourinary: Denies dysuria Musculoskeletal Musculoskeletal: Denies arthralgias or back pain Neurologic Neurologic: Denies dizziness, focal weakness or headache(s) Vital Signs Vital Signs Vital Signs: 12/15/23 05:40 12/15/23 07:14 12/15/23 07:46 Temperature 97.2 F L 98.2 F Temperature Source Temporal Oral Pulse Rate 144 H 108 H 109 H Pulse Strength Respiratory Rate 16 16 18 Respiratory Effort Respiratory Depth Respiratory Pattern Blood Pressure 134/64 H 132/59 H 106/57 L Blood Pressure Mean 87 83 73 Blood Pressure Source Monitor Blood Pressure Position Semi-Fowlers Blood Pressure Location Left Arm Pulse Ox 94 98 95 Oxygen Delivery Method Room Air Room Air 12/15/23 08:08 12/15/23 10:27 12/15/23 11:26 Temperature 97.7 F L Temperature Source Axillary Pulse Rate 96 Pulse Strength Normal (2+) Respiratory Rate 18 Respiratory Effort Normal Non-Labored Respiratory Depth Normal Respiratory Pattern Normal Blood Pressure 86/50 L Blood Pressure Mean 62 Blood Pressure Source Monitor Blood Pressure Position Semi-Fowlers Blood Pressure Location Left Arm Pulse Ox 93 Oxygen Delivery Method Room Air Room Air Weight Weight: 62.4 kg Body Mass Index (BMI) 23.6 Physical Exam Const alert, no apparent distress and average body habitus Constitutional Narrative: Elderly female, pale and fatigued appearing, otherwise laying comfortably in bed, conversing normally, no acute distress. General Appearance: cooperative and comfortable HEENT normocephalic, head/scalp atraumatic, hearing grossly normal bilaterally and nasal mucous membranes and turbinates normal Eyes PERRL, EOMs intact bilaterally and conjunctivae normal Neck full ROM, no lymphadenopathy and supple Lymph Lymphatic: no lymphadenopathy noted Chest inspection of chest normal Resp normal respiratory effort, normal air movement, no use of accessory muscles and clear to auscultation bilaterally Cardio no murmurs and peripheral pulses 2+ throughout Cardio Narrative: Tachycardic, regular rhythm. GI normal to inspection, nondistended, normoactive bowel sounds, soft to palpation, non-tender and non-distended Back/Spine normal ROM Extremity normal to inspection, full ROM and no pedal edema Skin no rashes or lesions noted Neuro moves all extremities and no focal motor deficits Speech: speech normal Psych mental status grossly normal Results Lab / Micro Data 12/15/23 05:30 12/15/23 05:30 Labs: Laboratory Results - last 24 hr 12/15/23 05:30: WBC 14.0 H, RBC 2.19 L, Hgb 6.6 L, Hct 20.5 L, MCV 93.6, MCH 30.1, MCHC 32.2, RDW Std Deviation 46.3 H, RDW Coeff of Emperatriz 13.9, Plt Count 239, MPV 10.7, Immature Gran % (Auto) 1.400 H, Neut % (Auto) 80.0 H, Lymph % (Auto) 12.6 L, [place] % (Auto) 5.6, Eos % (Auto) 0.0, Baso % (Auto) 0.4, Absolute Neuts (auto) 11.2 H, Absolute Lymphs (auto) 1.77, Nucleated RBC % 0, Sodium 141, Potassium 4.5, Chloride 109 H, Carbon Dioxide 23.0, Anion Gap 9, BUN 41 H, Creatinine 0.84, Estim Creat Clear Calc 51.80, Est GFR (MDRD) Af Amer 84, Est GFR (MDRD) Non-Af 70, BUN/Creatinine Ratio 49.0 H, Glucose 410 H, Calcium 8.8 12/15/23 05:44: POC Glucose 352 H 12/15/23 06:05: Blood Type A POSITIVE, Antibody Screen NEGATIVE 12/15/23 06:17: Crossmatch See Detail Assessment & Plan Assessment/Plan (1) Pyloric channel ulcer: (2) UGIB (upper gastrointestinal bleed): (3) Acute blood loss anemia: PLAN: Plan Patient is a 78-year-old female who presented to [facility] on 12/15/2023 with a recurrent upper GI bleed. 1. Recurrent upper GI bleed with coffee-ground emesis, acute blood loss anemia Recent EGD on 12/[address] Ferrer showed a duodenal ulcer that was treated. Hemoglobin was stable at 9.3 on discharge on 12/13. Presume that recurrent GI bleed was due to resumption of home Eliquis. Presented with recurrent nausea/vomiting and coffee-ground emesis, hemoglobin 6.6 on 12/15. ? Admit under inpatient status to PCU. Gastroenterology consulted. N.p.o. for EGD. Continue PPI drip for now. Transfusing 2 units of packed blood cells on 12/15, repeat hemoglobin pending. Holding home Eliquis. 2. Paroxysmal atrial fibrillation ? Sinus tachycardia on admission secondary to GI bleed. On Eliquis for anticoagulation, holding in setting of GI bleed as noted above. Will need to discuss with gastroenterology prior to discharge on plan for anticoagulation. Holding home verapamil for now, restart when able. 3. Mild leukocytosis ? WBC count 14.0 on admit. Suspect secondary to acute stress state, low concern for active infection. Follow-up a.m. CBC. 4. Type 2 diabetes mellitus with hyperglycemia ? BG 410 on admit. Home regimen of Lantus 20 units at night and Trulicity. Start Lantus 15 units at night with sliding-scale insulin with regular glucose checks while inpatient, adjust as needed. 5. Recent mechanical fall with right-sided rib pain ? Imaging on previous admission with no acute fractures or significant hematomas noted. PT/OT/case management followed during that admission, was okay for discharge home with no needs. Continue Tylenol as needed for pain. Chronic medical conditions: ? History of CAD s/p stenting, hypertension, hyperlipidemia: Continue home statin, holding home lisinopril. ? History of breast carcinoma s/p lumpectomy DVT prophylaxis: SCDs CODE STATUS: Full code, verified Expected disposition: Home, 2 to 3 days Total clinical time spent by myself addressing the patient's medical issues, reviewing all the data, and collaborating with patient's care team: 55 minutes. Charges/Coding Visit Charges Inpatient E&M: 25790 Init Hosp L2
[2023-12-15 12:00] LABS: Bedside Glucose 320 mg/dL (74-106)
[2023-12-15 16:02] LABS: Bedside Glucose 276 mg/dL (74-106)
--- NOTE | 2023-12-15 16:29 | OP.CCLET_ITS ---
12/15/2023 [place] Re : Upper GI endoscopy procedure for Kellie Jacksonr Darcy This procedure was performed on Friday, December 15, 2023. My impressions and recommendations are as follows: Impressions : - Normal esophagus. - Oozing gastric ulcer with a visible vessel. Injected. Treated with a heater probe. Clip was placed. Clip mosaic tiler: Osper. - No gross lesions in the second portion of the duodenum. - No specimens collected. Recommendations : - Return patient to hospital chan for ongoing care. - Clear liquid diet. - Continue present medications. My findings are described in the full procedure note, which is enclosed. If I can be of further assistance, please feel free to contact me at . Sincerely, Cullen Ferrer, 12/15/2023 4:28:41 PM This report has been signed electronically.
--- NOTE | 2023-12-15 16:29 | OP.EGD_ITS ---
Patient Name: Kellie Dozier Procedure Date: 12/15/2023 3:43 PM Date of : 1945 Age: 78 Procedure: Upper GI endoscopy Indications: Coffee-ground emesis Providers: Cullen Ferrer DO Medicines: Monitored Anesthesia Care Patient Profile: This is a 78 year old female. Refer to note in patient chart for documentation of history and physical. Patient has symptoms of acute epigastric abdominal pain and acute vomiting. Complications: No immediate complications. Procedure: Pre-Anesthesia Assessment: - Prior to the procedure, a History and Physical was performed, and patient medications and allergies were reviewed. The patient is competent. The risks and benefits of the procedure and the sedation options and risks were discussed with the patient. All questions were answered and informed consent was obtained. Patient identification and proposed procedure were verified by the physician in the pre-procedure area. Mental Status Examination: alert and oriented. Airway Examination: normal oropharyngeal airway and neck mobility. Respiratory Examination: clear to auscultation. CV Examination: normal. Prophylactic Antibiotics: The patient does not require prophylactic antibiotics. Prior Anticoagulants: The patient has taken no anticoagulant or antiplatelet agents. ASA Grade Assessment: IV - A patient with severe systemic disease that is a constant threat to life. After reviewing the risks and benefits, the patient was deemed in satisfactory condition to undergo the procedure. The anesthesia plan was to use monitored anesthesia care (MAC). Immediately prior to administration of medications, the patient was re-assessed for adequacy to receive sedatives. The heart rate, respiratory rate, oxygen saturations, blood pressure, adequacy of pulmonary ventilation, and response to care were monitored throughout the procedure. The physical status of the patient was re-assessed after the procedure. After obtaining informed consent, the endoscope was passed under direct vision. Throughout the procedure, the patient's blood pressure, pulse, and oxygen saturations were monitored continuously. The Endoscope was introduced through the mouth, and advanced to the second part of duodenum. The upper GI endoscopy was accomplished without difficulty. The patient tolerated the procedure well. Findings: The examined esophagus was normal. One oozing cratered gastric ulcer with a visible vessel was found on the greater curvature of the stomach. The lesion was 10 mm in largest dimension. Area was successfully injected with 5 mL of a 0.1 mg/mL solution of epinephrine for drug delivery. Coagulation for hemostasis using heater probe was successful. To stop active bleeding, one hemostatic clip was successfully placed. Clip windows server engineer: Edgar CLARED. There was no bleeding at the end of the procedure. No gross lesions were noted in the second portion of the duodenum. Impression: - Normal esophagus. - Oozing gastric ulcer with a visible vessel. Injected. Treated with a heater probe. Clip was placed. Clip windows server engineer: [employer]. - No gross lesions in the second portion of the duodenum. - No specimens collected. Recommendation: - Return patient to hospital chan for ongoing care. - Clear liquid diet. - Continue present medications. Procedure Code(s): --- Professional --- 70589, Esophagogastroduodenoscopy, flexible, transoral; with control of bleeding, any method 62030, 59,51, Esophagogastroduodenoscopy, flexible, transoral; with directed submucosal injection(s), any substance CPT copyright 2021 [employer]. All rights reserved. The codes documented in this report are preliminary and upon tonguer review may be revised to meet current compliance requirements. Cullen Ferrer DO 12/15/2023 4:28:41 PM This report has been signed electronically. Number of Addenda: 0 Note Initiated On: 12/15/2023 3:43 PM
[2023-12-15] MEDS: Insulin Lispro 100 UNIT/ML INSULN.PEN SC ×2 (17:44→21:43)
[2023-12-15 17:47] LABS: Bedside Glucose 257 mg/dL (74-106)
[2023-12-15 18:51] LABS: Hematocrit 24.2 % (37-47); Hemoglobin 7.9 g/dL (12.0-15.0); Mean Corp Hgb Conc 32.6 g/dL (32-36); Mean Platelet Vol. 10.5 fl (6.2-12.0); Platelet Count 160 K/mm3 (150-450); RBC Distribution Width CV 15.7 % (11.6-14.6); RBC Distribution Width SD 51.6 fl (35.1-43.9); Red Blood Count 2.63 M/mm3 (4.2-5.4); White Blood Count 14.1 K/mm3 (4.4-11.0)
[2023-12-15] MEDS: Insulin Glargine-YFGN 100 UNIT/ML Pen 15 UNIT SC (21:44)
[2023-12-15] MEDS: Pravastatin 80 MG Tablet PO (21:46)
[2023-12-15 22:38] LABS: Bedside Glucose 349 mg/dL (74-106)
[2023-12-15] MEDS: Acetaminophen 325 MG Tablet 650 MG PO (23:56)
[2023-12-16] VITALS (11 sets, daily range): BP systolic 118–169; BP diastolic 56–78; PULSE 81–102; RESP 16–18; TEMP 36.6–37.4; O2SAT 92–98
[2023-12-16] MEDS: Pantoprazole Sodium 80 MG in 0.9% Normal Saline (100mL Bag) 80 ML 10 MG CONT INF ×2 (05:10→16:04)
[2023-12-16] MEDS: Insulin Lispro 100 UNIT/ML INSULN.PEN SC ×4 (06:26→21:25)
[2023-12-16 06:45] LABS: Bedside Glucose 246 mg/dL (74-106)
[2023-12-16 07:51] LABS: Hematocrit 19.7 % (37-47); Hemoglobin 6.8 g/dL (12.0-15.0); Mean Corp Hgb Conc 34.5 g/dL (32-36); Mean Corpuscular Hgb 30.8 pg (27.0-32.0); Mean Corpuscular Volume 89.1 fL (81-99); Mean Platelet Vol. 10.6 fl (6.2-12.0); Platelet Count 156 K/mm3 (150-450); RBC Distribution Width CV 15.9 % (11.6-14.6); RBC Distribution Width SD 49.7 fl (35.1-43.9); Red Blood Count 2.21 M/mm3 (4.2-5.4); White Blood Count 13.9 K/mm3 (4.4-11.0)
[2023-12-16 08:36] LABS: Anion Gap 8 (5-15); BUN 34 mg/dL (7-18); BUN/Creat Ratio 44.7 RATIO (10-20); Calcium,Total 7.9 mg/dL (8.5-10.1); Chloride 111 mmol/L (98-107); Creatinine, Serum 0.76 mg/dL (0.55-1.02); EST Glomerular Filtration Rate 78 mL/min (>60); Est Glom Filt Rate - Afr Amer 94 mL/min (>60); Estimated Creatinine Clearance 49.24 ml/min; Glucose 270 mg/dL (74-106); Potassium 3.8 mmol/L (3.5-5.1); Sodium Level 141 mmol/L (136-145)
[2023-12-16] MEDS: Acetaminophen 325 MG Tablet 650 MG PO ×2 (08:45→18:55)
[2023-12-16] MEDS: Ondansetron 4 MG/2 ML Vial IV ×2 (08:46→18:54)
[2023-12-16] MEDS: 0.9% Saline Lock 10 ML Syringe IV (08:49)
[2023-12-16] MEDS: Pyridoxine HCl 100 MG Tablet PO (08:52)
[2023-12-16] MEDS: BRIMONIDINE 0.2% 5ML BOTTLE 1 DRP OPHTHALMIC ×2 (08:52→21:24)
[2023-12-16 12:46] LABS: Bedside Glucose 424 mg/dL (74-106)
[2023-12-16] MEDS: Morphine 2 MG/ML Syringe IV (14:39)
--- NOTE | 2023-12-16 17:12 | EX.PCM.PN.GI ---
Subjective Subjective Patient underwent emergent endoscopy yesterday. She denies any abdominal pain. She did have some dark stools overnight. She not have any vomiting overnight. Objective Data Objective Data Vital Signs: Vital Signs Temp Pulse Resp BP Pulse Ox O2 Del Method 98.6 F 95 16 141/75 H 92 Room Air 12/16/23 16:25 12/16/23 16:25 12/16/23 16:25 12/16/23 16:25 12/16/23 16:25 12/16/23 16:25 Oxygen Delivery Method Room Air Weight: 137 lb 9.095 oz Body Mass Index (BMI) 23.6 Intake & Output: Intake and Output for Last 24 Hours 12/14/23 12/15/23 12/16/23 23:59 23:59 23:59 Intake Total 2061 / 2061 316 / 316 Output Total 250 / 250 300 / 300 Balance 1812 / 1811 Lab / Micro Data 12/16/23 06:45 12/16/23 06:45 Labs: Laboratory Results - last 24 hr 12/15/23 06:17: Crossmatch See Detail 12/15/23 06:25: Crossmatch See Detail 12/15/23 17:21: POC Glucose 257 H 12/15/23 18:45: WBC 14.1 H, RBC 2.63 L, Hgb 7.9 L, Hct 24.2 L, MCV 92.0, MCH 30.0, MCHC 32.6, RDW Std Deviation 51.6 H, RDW Coeff of Emperatriz 15.7 H, Plt Count 160, MPV 10.5 12/15/23 21:43: POC Glucose 349 H 12/16/23 06:25: POC Glucose 246 H 12/16/23 06:45: WBC 13.9 H, RBC 2.21 L, Hgb 6.8 L, Hct 19.7 L, MCV 89.1, MCH 30.8, MCHC 34.5 D, RDW Std Deviation 49.7 H, RDW Coeff of Emperatriz 15.9 H, Plt Count 156, MPV 10.6, Sodium 141, Potassium 3.8, Chloride 111 H, Carbon Dioxide 22.0, Anion Gap 8, BUN 34 H, Creatinine 0.76, Estim Creat Clear Calc 49.24, Est GFR (MDRD) Af Amer 94, Est GFR (MDRD) Non-Af 78, BUN/Creatinine Ratio 44.7 H, Glucose 270 H, Calcium 7.9 L 12/16/23 12:26: POC Glucose 424 H Physical Exam Const alert, oriented x3, no apparent distress and average body habitus Constitutional Narrative: Pleasant elderly female, sitting up comfortably in bedside chair, conversing normally, no acute distress. General Appearance: cooperative and comfortable HEENT normocephalic, head/scalp atraumatic, hearing grossly normal bilaterally, nasal mucous membranes and turbinates normal and moist oral mucous membranes Eyes PERRL, EOMs intact bilaterally and conjunctivae normal Neck full ROM, no lymphadenopathy and supple Lymph Lymphatic: no lymphadenopathy noted Chest inspection of chest normal Chest Narrative: Mild tenderness to palpation in right lower chest/rib area, no significant bruising noted. Resp normal respiratory effort, normal air movement, no use of accessory muscles and clear to auscultation bilaterally Cardio regular rate, regular rhythm, no murmurs and peripheral pulses 2+ throughout GI normal to inspection, nondistended, normoactive bowel sounds, soft to palpation, non-tender and non-distended Back/Spine normal ROM Extremity normal to inspection, full ROM and no pedal edema Skin no rashes or lesions noted Neuro moves all extremities and no focal motor deficits Speech: speech normal Psych mental status grossly normal Assessment & Plan Assessment/Plan (1) UGIB (upper gastrointestinal bleed): (2) Acute blood loss anemia: PLAN: Plan Patient is a 78-year-old female who presented to [facility] ED on 12/11/2023 with hematemesis. Findings: The examined esophagus was normal. One oozing cratered gastric ulcer with pigmented material was found on the greater curvature of the stomach. The lesion was 6 mm in largest dimension. Area was successfully injected with 5 mL of a 0.1 mg/mL solution of epinephrine for drug delivery. To stop active bleeding, hemostatic spray was deployed. Five sprays were applied. There was no bleeding at the end of the procedure. Coagulation for hemostasis using heater probe was successful. Estimated blood loss was minimal. No gross lesions were noted in the first portion of the duodenum. One 5 mm angiodysplastic lesion with bleeding was found in the first portion of the duodenum. Coagulation for hemostasis using argon plasma at 0.3 liters/minute and 20 keller was successful. Estimated blood loss was minimal. Impression: - Normal esophagus. - Oozing gastric ulcer with pigmented material. Injected. hemostatic spray applied. Treated with a heater probe. - No gross lesions in the first portion of the duodenum. - No specimens collected. Recommendation: - Return patient to hospital chan for ongoing care. - NPO. - Continue present medications. Her hemoglobin is still slightly down to 6.8 from 7.9. Also her BUN to creatinine ratio is still elevated. She may be losing around the site even though it was treated yesterday due to poor wound healing. She also had some focal stranding consistent with enteritis extending to the cecum. I will order a CTA angiography to make sure there is no other site of bleeding that may need to be addressed endoscopically. Charges/Coding Visit Charges Inpatient E&M: 89056 Subs Hosp L3
--- NOTE | 2023-12-16 17:42 | CT_ITS ---
EXAM: CT ANGIOGRAPHY ABDOMEN AND PELVIS WITHOUT AND WITH INTRAVENOUS CONTRAST CLINICAL INDICATION: GI bleed TECHNIQUE: Helically acquired angiography images were obtained of the abdomen and pelvis without and with intravenous contrast. This CT exam was performed using one or more of the following dose reduction techniques: automated exposure control, adjustment of the mA and/or kV according to patient size, and/or use of iterative reconstruction technique. MIP reconstructed images were created and reviewed. CONTRAST: IV 100mL [id number] COMPARISON: 12/11/2023 FINDINGS: VASCULATURE: AORTA: The aorta is patent and normal in caliber without aneurysm, stenosis or dissection. CELIAC TRUNK AND MESENTERIC ARTERIES: No acute findings. No occlusion or significant stenosis. No dissection. RENAL ARTERIES: No acute findings. No occlusion or significant stenosis. No dissection. ILIAC ARTERIES: No acute findings. No occlusion or significant stenosis. No dissection. LOWER THORAX: There is mild atelectasis in the base. Lung bases are clear. No cardiomegaly. No significant pericardial effusion. ABDOMEN: LIVER: Unremarkable. Homogeneous. No focal mass. GALLBLADDER AND BILE DUCTS: Unremarkable. No calcified gallstones. No gallbladder distention or wall edema. No intra- or extrahepatic biliary ductal dilation. PANCREAS: Unremarkable. No focal cystic or solid mass. SPLEEN: Unremarkable. Normal size without focal cystic or solid mass. ADRENALS: Unremarkable. No nodules. KIDNEYS AND URETERS: There is bilateral hydronephrosis and hydroureter. There are no obstructing stones. The bladder is distended may be causing bilateral vesicoureteral reflux. Normal renal size and position. STOMACH AND BOWEL: There is there is a linear metallic foreign body in the stomach that measures 1.5 cm in length. No stomach or bowel distention. No focal inflammatory change. PELVIS: APPENDIX: No evidence of acute appendicitis. BLADDER: Unremarkable. REPRODUCTIVE: Unremarkable as visualized. No mass. ABDOMEN and PELVIS: INTRAPERITONEAL SPACE: Unremarkable. No ascites or other fluid collection. No free air. BONES/JOINTS: Unremarkable. No suspicious lytic or blastic abnormality. SOFT TISSUES: Unremarkable. No discrete abdominal or pelvic wall hernia. LYMPH NODES: Unremarkable. No enlarged lymph nodes. CT/CTA Abd/Pelvis W/WO Contrast IMPRESSION: 1. Normal caliber aorta with no evidence of aneurysm, stenosis or dissection. Branches are patent. There is no evidence of acute GI bleed. 2. Linear metallic foreign body seen within the stomach that measures roughly 1.5 cm of uncertain etiology. This was not present on the previous exam. 3. Bilateral hydronephrosis and hydroureter. No stones are identified. The bladder is distended and may be causing bilateral vesicoureteral reflux. Electronically Signed: Sidney Benitez MD at 18:38 EST ,
--- NOTE | 2023-12-16 18:59 | PCM.PN.HOSP ---
Subjective Subjective Hemoglobin this morning was 6.8, complaining of some lower pelvic pain. CTA of her abdomen and pelvis is pending Objective Data Objective Data Vital Signs: Vital Signs Temp Pulse Resp BP Pulse Ox O2 Del Method 98 F 84 16 169/69 H 95 Room Air 12/16/23 18:25 12/16/23 18:25 12/16/23 18:25 12/16/23 18:25 12/16/23 18:25 12/16/23 18:25 Oxygen Delivery Method Room Air Weight: 137 lb 9.095 oz Body Mass Index (BMI) 23.6 Intake & Output: Intake and Output for Last 24 Hours 12/15/23 12/16/23 12/17/23 03:59 03:59 03:59 Intake Total 2061 / 2061 316 / 316 Output Total 250 / 250 300 / 300 Balance 181 / 1811 Lab / Micro Data 12/17/23 10:35 12/17/23 10:35 Labs: Laboratory Results - last 24 hr 12/15/23 06:25: Crossmatch See Detail 12/15/23 21:43: POC Glucose 349 H 12/16/23 06:25: POC Glucose 246 H 12/16/23 06:45: WBC 13.9 H, RBC 2.21 L, Hgb 6.8 L, Hct 19.7 L, MCV 89.1, MCH 30.8, MCHC 34.5 D, RDW Std Deviation 49.7 H, RDW Coeff of Emperatriz 15.9 H, Plt Count 156, MPV 10.6, Sodium 141, Potassium 3.8, Chloride 111 H, Carbon Dioxide 22.0, Anion Gap 8, BUN 34 H, Creatinine 0.76, Estim Creat Clear Calc 49.24, Est GFR (MDRD) Af Amer 94, Est GFR (MDRD) Non-Af 78, BUN/Creatinine Ratio 44.7 H, Glucose 270 H, Calcium 7.9 L 12/16/23 12:26: POC Glucose 424 H Radiography Diagnostic Testing: Radiology Impression Abdomen/Pelvis CTA 12/16/23 17:42 IMPRESSION: 1. Normal caliber aorta with no evidence of aneurysm, stenosis or dissection. Branches are patent. There is no evidence of acute GI bleed. 2. Linear metallic foreign body seen within the stomach that measures roughly 1.5 cm of uncertain etiology. This was not present on the previous exam. 3. Bilateral hydronephrosis and hydroureter. No stones are identified. The bladder is distended and may be causing bilateral vesicoureteral reflux. Electronically Signed: Sidney Benitez MD at 18:38 EST , Physical Exam Narrative General: Alert, Oriented x3, Cooperative, No apparent distress HEENT: Atraumatic, PERRLA, EOMI, Normocephalic Oral: Moist Mucosa Neck: Supple, No JVD Lungs: Diminished, Normal air movement, No rhonchi, No wheeze, No rales Cardiovascular: Regular rate, Regular Rhythm, Normal S1, Normal S2, No murmurs Abdomen: Soft, minimally tender lower pelvis, Non-Distended, No Hepato-splenomegaly Extremities: No edema, Capillary Refill Less than 3 Seconds Skin: No rashes, No breakdown, pallor Musculoskeletal: No Tenderness to Palpation of Joints or Extremities Neurological: No focal neurological deficits, Motor Exam 5/5 strength throughout, Sensory exam intact to light touch and pain Psych/Mental Status: Normal Affect, Appropriate Assessment & Plan Assessment/Plan (1) Pyloric channel ulcer: (2) UGIB (upper gastrointestinal bleed): (3) Acute blood loss anemia: PLAN: Plan 1. Recurrent upper GI bleed with coffee-ground emesis, acute blood loss anemia Recent EGD on 12/[address] Ferrer showed a duodenal ulcer that was treated. Hemoglobin was stable at 9.3 on discharge on 12/13. Presume that recurrent GI bleed was due to resumption of home Eliquis. Presented with recurrent nausea/vomiting and coffee-ground emesis, hemoglobin 6.6 on 12/15. ? Admit under inpatient status to PCU. Gastroenterology consulted. N.p.o. for EGD. Continue PPI drip for now. Transfusing 2 units of packed blood cells on 12/15, repeat hemoglobin pending. Holding home Eliquis. 12/16/2023: Will need to transfuse 1 unit today with a hemoglobin of 6.8, CT of the abdomen and pelvis is pending to eval for bleeding and this abdominal pain 2. Paroxysmal atrial fibrillation ? Sinus tachycardia on admission secondary to GI bleed. On Eliquis for anticoagulation, holding in setting of GI bleed as noted above. Will need to discuss with gastroenterology prior to discharge on plan for anticoagulation. Holding home verapamil for now, restart when able. 12/16: Heart rate stable 3. Mild leukocytosis ? WBC count 14.0 on admit. Suspect secondary to acute stress state, low concern for active infection. Follow-up a.m. CBC. 4. Type 2 diabetes mellitus with hyperglycemia ? BG 410 on admit. Home regimen of Lantus 20 units at night and Trulicity. Start Lantus 15 units at night with sliding-scale insulin with regular glucose checks while inpatient, adjust as needed. 5. Recent mechanical fall with right-sided rib pain ? Imaging on previous admission with no acute fractures or significant hematomas noted. PT/OT/case management followed during that admission, was okay for discharge home with no needs. Continue Tylenol as needed for pain. Chronic medical conditions: ? History of CAD s/p stenting, hypertension, hyperlipidemia: Continue home statin, holding home lisinopril. ? History of breast carcinoma s/p lumpectomy DVT: SCDs Charges/Coding Visit Charges Inpatient E&M: 98738 Subs Hosp L2
[2023-12-16] MEDS: Pravastatin 80 MG Tablet PO (21:24)
[2023-12-16] MEDS: Insulin Glargine-YFGN 100 UNIT/ML Pen 25 UNIT SC (21:26)
[2023-12-16 23:44] LABS: Bedside Glucose 239 mg/dL (74-106)
[2023-12-17] VITALS (10 sets, daily range): BP systolic 115–150; BP diastolic 54–65; PULSE 58–106; RESP 16; TEMP 36.6–37.3; O2SAT 94–100
[2023-12-17 01:14] LABS: Bedside Glucose 259 mg/dL (74-106)
[2023-12-17] MEDS: Pantoprazole Sodium 80 MG in 0.9% Normal Saline (100mL Bag) 80 ML 10 MG CONT INF ×3 (02:04→23:00)
[2023-12-17] MEDS: Insulin Lispro 100 UNIT/ML INSULN.PEN SC ×2 (08:24→21:39)
[2023-12-17] MEDS: BRIMONIDINE 0.2% 5ML BOTTLE 1 DRP OPHTHALMIC ×2 (08:24→21:40)
[2023-12-17] MEDS: Pyridoxine HCl 100 MG Tablet PO (08:24)
[2023-12-17] MEDS: Insulin Lispro 100 UNIT/ML INSULN.PEN 10 UNIT SC ×2 (08:24→11:22)
--- NOTE | 2023-12-17 10:40 | CASEMGMT ---
Social Work As per admitting RN, pt does not have LW/POA and declined further information. YUDITH Murguia
[2023-12-17 11:06] LABS: Absolute Lymphocyte Count 1.66 X10^3/uL (0.83-4.51); Absolute Neutrophil Count 8.8 X10^3/uL (2.0-7.7); Basophil# 0.05 X10^3/uL; Basophil% 0.4 % (0-1); Eosinophil# 0.33 X10^3/uL; Eosinophils% 2.7 % (0-5); Hematocrit 20.1 % (37-47); Hemoglobin 6.8 g/dL (12.0-15.0); Lymphocyte # 1.66 X10^3/ul (0.83-4.51); Lymphocyte % 13.8 % (19-41); Mean Corp Hgb Conc 33.8 g/dL (32-36); Mean Corpuscular Hgb 31.1 pg (27.0-32.0); Mean Corpuscular Volume 91.8 fL (81-99); Mean Platelet Vol. 10.1 fl (6.2-12.0); Monocyte# 0.88 X10^3/uL; Monocyte% 7.3 % (0-10); NRBC Flagged by Analyzer 0.7 % (0-5); Neutrophil # 8.77 X10^3/uL (2.7-7.7); Platelet Count 144 K/mm3 (150-450); RBC Distribution Width CV 15.5 % (11.6-14.6); RBC Distribution Width SD 49.6 fl (35.1-43.9); Red Blood Count 2.19 M/mm3 (4.2-5.4)
[2023-12-17 11:18] LABS: Anion Gap 1 (5-15); BUN 24 mg/dL (7-18); BUN/Creat Ratio 36.4 RATIO (10-20); Calcium,Total 7.8 mg/dL (8.5-10.1); Chloride 111 mmol/L (98-107); Creatinine, Serum 0.66 mg/dL (0.55-1.02); EST Glomerular Filtration Rate 92 mL/min (>60); Est Glom Filt Rate - Afr Amer 111 mL/min (>60); Estimated Creatinine Clearance 49.24 ml/min; Glucose 140 mg/dL (74-106); Potassium 3.2 mmol/L (3.5-5.1); Sodium Level 138 mmol/L (136-145)
--- NOTE | 2023-12-17 11:27 | PCM.PN.HOSP ---
Subjective Subjective Doing well, CT yesterday demonstrated a full bladder with hydronephrosis so she was straight cathed for 1100 cc and then bladder scanned later for 600 cc so she had a Avina placed Objective Data Objective Data Vital Signs: Vital Signs Temp Pulse Resp BP Pulse Ox O2 Del Method 98.4 F 89 16 122/57 H 97 Room Air 12/17/23 08:28 12/17/23 08:28 12/17/23 08:28 12/17/23 08:28 12/17/23 08:28 12/17/23 08:34 Oxygen Delivery Method Room Air Weight: 137 lb 9.095 oz Body Mass Index (BMI) 23.6 Intake & Output: Intake and Output for Last 24 Hours 12/16/23 12/17/23 12/18/23 03:59 03:59 03:59 Intake Total 2062 / 2062 617 / 617 550 / 550 Output Total 250 / 250 1600 / 1600 1275 / 1275 Balance 1812 / 1812 -983 / -983 -725 / -725 Lab / Micro Data 12/17/23 10:35 12/17/23 10:35 Labs: Laboratory Results - last 24 hr 12/15/23 06:25: Crossmatch See Detail 12/16/23 12:26: POC Glucose 424 H 12/16/23 18:54: POC Glucose 259 H 12/16/23 21:22: POC Glucose 239 H 12/17/23 10:35: WBC 12.0 H, RBC 2.19 L, Hgb 6.8 L, Hct 20.1 L, MCV 91.8, MCH 31.1, MCHC 33.8, RDW Std Deviation 49.6 H, RDW Coeff of Emperatriz 15.5 H, Plt Count 144 L, MPV 10.1, Immature Gran % (Auto) 2.800 H, Neut % (Auto) 73.0 H, Lymph % (Auto) 13.8 L, [place] % (Auto) 7.3, Eos % (Auto) 2.7, Baso % (Auto) 0.4, Absolute Neuts (auto) 8.8 H, Absolute Lymphs (auto) 1.66, Nucleated RBC % 0.7, Sodium 138, Potassium 3.2 L, Chloride 111 H, Carbon Dioxide 26.0, Anion Gap 1 L, BUN 24 H, Creatinine 0.66, Estim Creat Clear Calc 49.24, Est GFR (MDRD) Af Amer 111, Est GFR (MDRD) Non-Af 92, BUN/Creatinine Ratio 36.4 H, Glucose 140 H, Calcium 7.8 L Radiography Diagnostic Testing: Radiology Impression Abdomen/Pelvis CTA 12/16/23 17:42 IMPRESSION: 1. Normal caliber aorta with no evidence of aneurysm, stenosis or dissection. Branches are patent. There is no evidence of acute GI bleed. 2. Linear metallic foreign body seen within the stomach that measures roughly 1.5 cm of uncertain etiology. This was not present on the previous exam. 3. Bilateral hydronephrosis and hydroureter. No stones are identified. The bladder is distended and may be causing bilateral vesicoureteral reflux. Electronically Signed: Sidney Benitez MD at 18:38 EST , Physical Exam Narrative General: Alert, Oriented x3, Cooperative, No apparent distress HEENT: Atraumatic, PERRLA, EOMI, Normocephalic Oral: Moist Mucosa Neck: Supple, No JVD Lungs: Diminished, Normal air movement, No rhonchi, No wheeze, No rales Cardiovascular: Regular rate, Regular Rhythm, Normal S1, Normal S2, No murmurs Abdomen: Soft, nontender, Non-Distended, No Hepato-splenomegaly Extremities: No edema, Capillary Refill Less than 3 Seconds Skin: No rashes, No breakdown, pallor Musculoskeletal: No Tenderness to Palpation of Joints or Extremities Neurological: No focal neurological deficits, Motor Exam 5/5 strength throughout, Sensory exam intact to light touch and pain Psych/Mental Status: Normal Affect, Appropriate Assessment & Plan Assessment/Plan (1) Pyloric channel ulcer: (2) UGIB (upper gastrointestinal bleed): (3) Acute blood loss anemia: PLAN: Plan 1. Recurrent upper GI bleed with coffee-ground emesis, acute blood loss anemia Recent EGD on 12/[address] Ferrer showed a duodenal ulcer that was treated. Hemoglobin was stable at 9.3 on discharge on 12/13. Presume that recurrent GI bleed was due to resumption of home Eliquis. Presented with recurrent nausea/vomiting and coffee-ground emesis, hemoglobin 6.6 on 12/15. ? Admit under inpatient status to PCU. Gastroenterology consulted. N.p.o. for EGD. Continue PPI drip for now. Transfusing 2 units of packed blood cells on 12/15, repeat hemoglobin pending. Holding home Eliquis. 12/16/2023: Will need to transfuse 1 unit today with a hemoglobin of 6.8, CT of the abdomen and pelvis is pending to eval for bleeding and this abdominal pain 12/17/2023: Hemoglobin dropped again to 6.8, will repeat a unit of blood, no obvious signs of bleeding on the CTA of the abdomen pelvis yesterday though did show a dilated bladder and hydronephrosis. Continue with Avina and will discuss the case with gastroenterology 2. Paroxysmal atrial fibrillation ? Sinus tachycardia on admission secondary to GI bleed. On Eliquis for anticoagulation, holding in setting of GI bleed as noted above. Will need to discuss with gastroenterology prior to discharge on plan for anticoagulation. Holding home verapamil for now, restart when able. 12/16: Heart rate stable 3. Mild leukocytosis ? WBC count 14.0 on admit. Suspect secondary to acute stress state, low concern for active infection. Follow-up a.m. CBC. 4. Type 2 diabetes mellitus with hyperglycemia ? BG 410 on admit. Home regimen of Lantus 20 units at night and Trulicity. Start Lantus 15 units at night with sliding-scale insulin with regular glucose checks while inpatient, adjust as needed. 5. Recent mechanical fall with right-sided rib pain ? Imaging on previous admission with no acute fractures or significant hematomas noted. PT/OT/case management followed during that admission, was okay for discharge home with no needs. Continue Tylenol as needed for pain. 6. Urinary retention ? Will consult urology ? Continue with Avina Chronic medical conditions: ? History of CAD s/p stenting, hypertension, hyperlipidemia: Continue home statin, holding home lisinopril. ? History of breast carcinoma s/p lumpectomy DVT: SCDs Charges/Coding Visit Charges Inpatient E&M: 24308 Subs Hosp L2
[2023-12-17 11:49] LABS: Bedside Glucose 130 mg/dL (74-106)
[2023-12-17 11:49] LABS: Bedside Glucose 209 mg/dL (74-106)
--- NOTE | 2023-12-17 14:52 | CHAPLAIN ---
Type of Pastoral Visit _x__ Initial Visit ___ Follow-up Visit ___ On-call Visit ___ General Patient Visit ___ Spiritual Assessment ___ Family Conference ___ Bereavement ___ Rapid Response ___ Code Blue ___ Other (describe below) Pastoral Care Referral From ___ Patient _x__ Family ___ Nurse ___ Physician ___ Circuit Tester ___ Frame Hand ___ Other (describe below) Sacrament/Intervention _x__ Active listening ___ Anointing ___ Adventist ___ Bereavement ___ Communion ___ Kayla exploration ___ _x__ Life review _x__ Prayer ___ Reconciliation ___ Sacrament of Sick _x__ Supportive presence ___ Wedding ___ Other (describe below) Pastoral Comments patient is welcoming and was expecting this visit due to family member's request; pt is talkative and explains her situation which includes her goal of finding out what this is all about and how to have it corrected; pt gives some brief life review; daughter of patient is with her and supportive; pt shares her concern for a family member and their personal needs; pt requests prayer for this; after prayer is given the pt is quite tearful and expressive of thanks
[2023-12-17 16:50] LABS: Bedside Glucose 96 mg/dL (74-106)
--- NOTE | 2023-12-17 17:39 | PN.GI_ITS ---
Subjective Subjective Patient underwent repeat emergent upper endoscopy for GI bleed. He was discovered to have large peptic ulcer that was clipped and cauterized. Her hemoglobin did go down slightly. She was receiving transfusion of 1 unit packed red blood cells. Objective Data Objective Data Vital Signs: Vital Signs Temp Pulse Resp BP Pulse Ox O2 Del Method 98.8 F 85 16 125/62 H 98 Room Air 12/17/23 16:28 12/17/23 16:28 12/17/23 16:28 12/17/23 16:28 12/17/23 16:28 12/17/23 16:28 Oxygen Delivery Method Room Air Weight: 137 lb 9.095 oz Body Mass Index (BMI) 23.6 Intake & Output: Intake and Output for Last 24 Hours 12/15/23 12/16/23 12/17/23 23:59 23:59 23:59 Intake Total 2062 / 2062 517 / 517 750 / 750 Output Total 250 / 250 1600 / 1600 1275 / 1275 Balance 1812 / 1812 -1083 / -1083 -525 / -525 Lab / Micro Data 12/17/23 10:35 12/17/23 10:35 Labs: Laboratory Results - last 24 hr 12/15/23 06:25: Crossmatch See Detail 12/15/23 06:25: Crossmatch See Detail 12/16/23 18:54: POC Glucose 259 H 12/16/23 21:22: POC Glucose 239 H 12/17/23 08:22: POC Glucose 209 H 12/17/23 10:35: WBC 12.0 H, RBC 2.19 L, Hgb 6.8 L, Hct 20.1 L, MCV 91.8, MCH 31.1, MCHC 33.8, RDW Std Deviation 49.6 H, RDW Coeff of Emperatriz 15.5 H, Plt Count 144 L, MPV 10.1, Immature Gran % (Auto) 2.800 H, Neut % (Auto) 73.0 H, Lymph % (Auto) 13.8 L, [place] % (Auto) 7.3, Eos % (Auto) 2.7, Baso % (Auto) 0.4, Absolute Neuts (auto) 8.8 H, Absolute Lymphs (auto) 1.66, Nucleated RBC % 0.7, Sodium 138, Potassium 3.2 L, Chloride 111 H, Carbon Dioxide 26.0, Anion Gap 1 L, BUN 24 H, Creatinine 0.66, Estim Creat Clear Calc 49.24, Est GFR (MDRD) Af Amer 111, Est GFR (MDRD) Non-Af 92, BUN/Creatinine Ratio 36.4 H, Glucose 140 H, Calcium 7.8 L 12/17/23 11:16: POC Glucose 130 H 12/17/23 16:30: POC Glucose 96 Radiography Diagnostic Testing: Radiology Impression Abdomen/Pelvis CTA 12/16/23 17:42 IMPRESSION: 1. Normal caliber aorta with no evidence of aneurysm, stenosis or dissection. Branches are patent. There is no evidence of acute GI bleed. 2. Linear metallic foreign body seen within the stomach that measures roughly 1.5 cm of uncertain etiology. This was not present on the previous exam. 3. Bilateral hydronephrosis and hydroureter. No stones are identified. The bladder is distended and may be causing bilateral vesicoureteral reflux. Electronically Signed: Sidney Benitez MD at 18:38 EST , Physical Exam Const alert, oriented x3, no apparent distress and average body habitus Constitutional Narrative: Pleasant elderly female, sitting up comfortably in bedside chair, conversing normally, no acute distress. General Appearance: cooperative and comfortable HEENT normocephalic, head/scalp atraumatic, hearing grossly normal bilaterally, nasal mucous membranes and turbinates normal and moist oral mucous membranes Eyes PERRL, EOMs intact bilaterally and conjunctivae normal Neck full ROM, no lymphadenopathy and supple Lymph Lymphatic: no lymphadenopathy noted Chest inspection of chest normal Chest Narrative: Mild tenderness to palpation in right lower chest/rib area, no significant bruising noted. Resp normal respiratory effort, normal air movement, no use of accessory muscles and clear to auscultation bilaterally Cardio regular rate, regular rhythm, no murmurs and peripheral pulses 2+ throughout GI normal to inspection, nondistended, normoactive bowel sounds, soft to palpation, non-tender and non-distended Back/Spine normal ROM Extremity normal to inspection, full ROM and no pedal edema Skin no rashes or lesions noted Neuro moves all extremities and no focal motor deficits Speech: speech normal Psych mental status grossly normal Assessment & Plan Assessment/Plan (1) UGIB (upper gastrointestinal bleed): (2) Acute blood loss anemia: PLAN: Plan Patient is a 78-year-old female who presented to [facility] ED on 12/11/2023 with hematemesis. Findings: The examined esophagus was normal. One oozing cratered gastric ulcer with pigmented material was found on the greater curvature of the stomach. The lesion was 6 mm in largest dimension. Area was successfully injected with 5 mL of a 0.1 mg/mL solution of epinephrine for drug delivery. To stop active bleeding, hemostatic spray was deployed. Five sprays were applied. There was no bleeding at the end of the procedure. Coagulation for hemostasis using heater probe was successful. Estimated blood loss was minimal. No gross lesions were noted in the first portion of the duodenum. One 5 mm angiodysplastic lesion with bleeding was found in the first portion of the duodenum. Coagulation for hemostasis using argon plasma at 0.3 liters/minute and 20 keller was successful. Estimated blood loss was minimal. Impression: - Normal esophagus. - Oozing gastric ulcer with pigmented material. Injected. hemostatic spray applied. Treated with a heater probe. - No gross lesions in the first portion of the duodenum. - No specimens collected. Recommendation: - Return patient to hospital [facility] for ongoing care. - NPO. - Continue present medications. Her hemoglobin is still slightly down to 6.8 from 7.9 to 6.8. Also her BUN to creatinine ratio is still elevated. She may be losing around the site even though it was treated yesterday due to poor wound healing. She also had some focal stranding consistent with enteritis extending to the cecum. I will order a CTA angiography to make sure there is no other site of bleeding that may need to be addressed endoscopically.
--- NOTE | 2023-12-17 18:21 | CON.PCM.UR_ITS ---
HPI Consult Data Date of Consult: 12/17/23 HPI Narrative Reason for Consultation: Retention of urine HPI Narrative: MALORIE KIRK, is a 78 F who presents to the hospital with a GI bleed she been having a workup for this, CAT scan was done that demonstrated a very distended bladder she was having lower abdominal pain Avina catheter was placed for significant amount of urine. She does have a significant history for having a bladder repair with a bladder tuck done according to the patient long time ago. But prior to admission to the hospital she does not really have a history of retention of urine probably just incomplete emptying without sensation. I think for now she will have to go home with a catheter and she need to follow-up in my office at that point I will remove the catheter and we will also show her how to do self intermittent catheterization in case she does not empty her bladder all the way. But she can be discharged with a catheter and follow-up in my office for an appointment coming with questions. [facility] Medical History Atherosclerotic heart disease of [place] coronary artery without angina pectoris Essential hypertension GERD (gastroesophageal reflux disease) Liver mass Malignant neoplasm of right breast Old myocardial infarction Paroxysmal atrial fibrillation 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 tachycardia Presence of stent in coronary artery (~05/23/09) Pure hypercholesterolemia Type 2 diabetes mellitus Home Medications apixaban 5 mg tablet (Eliquis) 5 mg PO BID a.fib 09/06/19 [History Last Taken 12/14/23] cyanocobalamin (vitamin B-12) 1,000 mcg tablet 1,000 mcg PO DAILY vitamin deficient 09/06/19 [History Last Taken 12/14/23] pravastatin 80 mg tablet 80 mg PO QHS cholesterol 09/06/19 [History Last Taken 12/14/23] pyridoxine (vitamin B6) 100 mg tablet 100 mg PO DAILY vitamin deficient 09/06/19 [History Last Taken 12/14/23] nitroglycerin 0.4 mg sublingual tablet 0.4 mg sublingual Q5-15M PRN chest pain #90 tabs 09/08/19 [Rx Last Taken Unknown] insulin glargine U-300 conc 300 unit/mL (1.5 mL) subcutaneous pen 20 unit subcut QHS diabetes 08/14/21 [History Last Taken 12/14/23] dulaglutide 4.5 mg/0.5 mL subcutaneous pen injector (Trulicity) 4.5 mg subcut MO 08/06/23 [History Last Taken 12/07/23] verapamil 300 mg capsule 24hr pellet CT,ext.release 300 mg PO QHS blood pressure 08/06/23 [History Last Taken 12/14/23] brimonidine 0.2 % eye drops 1 drp ophthalmic (eye) BID Glaucoma 12/11/23 [History Last Taken 12/14/23] calcium carbonate 600 mg-vitamin D3 5 mcg (200 unit) tablet (Calcium 600 + D(3)) 1 tab PO DAILY vitamin deficient 12/11/23 [History Last Taken 12/14/23] lisinopril 40 mg tablet 20 mg PO DAILY HIG BLOOD PRESSURE 12/11/23 [History Last Taken 12/14/23] pantoprazole 40 mg tablet,delayed release 40 mg PO BID 30 days #60 tabs 12/13/23 [Rx Last Taken 12/14/23] Allergy/AdvReac Type Severity Reaction Status Date / Time alendronate sodium AdvReac Severe myalgias Verified 12/15/23 05:40 [From Fosamax] amoxicillin [Amoxicillin] AdvReac Nausea/Vom/ Verified 12/15/23 05:40 Diarrhea metformin AdvReac Nausea/Vom/ Verified 12/15/23 05:40 Diarrhea shellfish derived AdvReac Nausea/Vom/ Verified 12/15/23 05:40 Diarrhea Family History Mother Hypertension Diabetes CVA (cerebral vascular accident) CAD (coronary artery disease) Father History of DVT (deep vein thrombosis) Surgical History History of eyelid surgery (05/28/23) History of total abdominal hysterectomy Presence of coronary angioplasty implant and graft (~05/23/09) S/P lumpectomy, right breast Social History household members: family housing: house Smoking Status: Never smoker alcohol intake: never substance use type: does not use caffeine: Yes Type: coffee Number of servings: 2 Lab / Micro Data 12/17/23 10:35 12/17/23 10:35 Labs: Laboratory Results - last 24 hr 12/15/23 06:25: Crossmatch See Detail 12/15/23 06:25: Crossmatch See Detail 12/16/23 18:54: POC Glucose 259 H 12/16/23 21:22: POC Glucose 239 H 12/17/23 08:22: POC Glucose 209 H 12/17/23 10:35: WBC 12.0 H, RBC 2.19 L, Hgb 6.8 L, Hct 20.1 L, MCV 91.8, MCH 31.1, MCHC 33.8, RDW Std Deviation 49.6 H, RDW Coeff of Emperatriz 15.5 H, Plt Count 144 L, MPV 10.1, Immature Gran % (Auto) 2.800 H, Neut % (Auto) 73.0 H, Lymph % (Auto) 13.8 L, [place] % (Auto) 7.3, Eos % (Auto) 2.7, Baso % (Auto) 0.4, Absolute Neuts (auto) 8.8 H, Absolute Lymphs (auto) 1.66, Nucleated RBC % 0.7, Sodium 138, Potassium 3.2 L, Chloride 111 H, Carbon Dioxide 26.0, Anion Gap 1 L, BUN 24 H, Creatinine 0.66, Estim Creat Clear Calc 49.24, Est GFR (MDRD) Af Amer 111, Est GFR (MDRD) Non-Af 92, BUN/Creatinine Ratio 36.4 H, Glucose 140 H, Calcium 7.8 L 12/17/23 11:16: POC Glucose 130 H 12/17/23 16:30: POC Glucose 96 Imaging Radiology Impression Abdomen/Pelvis CTA 12/16/23 17:42 IMPRESSION: 1. Normal caliber aorta with no evidence of aneurysm, stenosis or dissection. Branches are patent. There is no evidence of acute GI bleed. 2. Linear metallic foreign body seen within the stomach that measures roughly 1.5 cm of uncertain etiology. This was not present on the previous exam. 3. Bilateral hydronephrosis and hydroureter. No stones are identified. The bladder is distended and may be causing bilateral vesicoureteral reflux. Electronically Signed: Sidney Benitez MD at 18:38 EST ,
[2023-12-17 19:09] LABS: Hematocrit 26.1 % (37-47); Hemoglobin 8.7 g/dL (12.0-15.0)
[2023-12-17] MEDS: Pravastatin 80 MG Tablet PO (21:38)
[2023-12-17] MEDS: Insulin Glargine-YFGN 100 UNIT/ML Pen 25 UNIT SC (21:40)
[2023-12-18 00:44] LABS: Bedside Glucose 199 mg/dL (74-106)
[2023-12-18 02:00] VITALS: BP 140/69; PULSE 94; RESP 16; TEMP 36.4; O2SAT 97
[2023-12-18 08:43] LABS: Anion Gap 4 (5-15); BUN 15 mg/dL (7-18); BUN/Creat Ratio 26.4 RATIO (10-20); Calcium,Total 7.9 mg/dL (8.5-10.1); Chloride 113 mmol/L (98-107); Creatinine, Serum 0.57 mg/dL (0.55-1.02); EST Glomerular Filtration Rate 109 mL/min (>60); Est Glom Filt Rate - Afr Amer 132 mL/min (>60); Estimated Creatinine Clearance 49.24 ml/min; Glucose 206 mg/dL (74-106); Potassium 3.5 mmol/L (3.5-5.1); Sodium Level 142 mmol/L (136-145)
[2023-12-18] MEDS: Insulin Lispro 100 UNIT/ML INSULN.PEN SC ×4 (08:43→22:32)
[2023-12-18 08:46] VITALS: BP 111/73; PULSE 98; RESP 16; TEMP 36.4; O2SAT 100
[2023-12-18] MEDS: Insulin Lispro 100 UNIT/ML INSULN.PEN 10 UNIT SC ×2 (08:46→15:37)
[2023-12-18 09:13] LABS: Absolute Lymphocyte Count 1.15 X10^3/uL (0.83-4.51); Absolute Neutrophil Count 6.5 X10^3/uL (2.0-7.7); Basophil# 0.07 X10^3/uL; Basophil% 0.8 % (0-1); Eosinophil# 0.27 X10^3/uL; Eosinophils% 2.9 % (0-5); Hematocrit 26.1 % (37-47); Hemoglobin 8.5 g/dL (12.0-15.0); Lymphocyte # 1.15 X10^3/ul (0.83-4.51); Lymphocyte % 12.3 % (19-41); Mean Corp Hgb Conc 32.6 g/dL (32-36); Mean Corpuscular Hgb 28.8 pg (27.0-32.0); Mean Corpuscular Volume 88.5 fL (81-99); Mean Platelet Vol. 10.2 fl (6.2-12.0); Monocyte# 0.92 X10^3/uL; Monocyte% 9.9 % (0-10); NRBC Flagged by Analyzer 0.4 % (0-5); Neutrophil # 6.53 X10^3/uL (2.7-7.7); Platelet Count 152 K/mm3 (150-450); RBC Distribution Width CV 18.3 % (11.6-14.6); RBC Distribution Width SD 54.5 fl (35.1-43.9); Red Blood Count 2.95 M/mm3 (4.2-5.4); White Blood Count 9.3 K/mm3 (4.4-11.0)
[2023-12-18] MEDS: Ondansetron 4 MG/2 ML Vial IV (11:00)
[2023-12-18] MEDS: Pantoprazole Sodium 80 MG in 0.9% Normal Saline (100mL Bag) 80 ML 10 MG CONT INF ×2 (11:00→22:31)
[2023-12-18 12:03] LABS: Bedside Glucose 171 mg/dL (74-106)
[2023-12-18] MEDS: BRIMONIDINE 0.2% 5ML BOTTLE 1 DRP OPHTHALMIC ×2 (12:20→22:31)
[2023-12-18] MEDS: Pyridoxine HCl 100 MG Tablet PO (12:20)
[2023-12-18 12:39] LABS: Bedside Glucose 222 mg/dL (74-106)
--- NOTE | 2023-12-18 12:41 | PCM.PN.HOSP ---
Subjective Subjective Doing well, no issues overnight. Hemoglobin this morning is 8.5, yesterday's recheck in the afternoon was 8.7 Objective Data Objective Data Vital Signs: Vital Signs Temp Pulse Resp BP Pulse Ox O2 Del Method 97.5 F L 98 16 111/73 100 Room Air 12/18/23 08:46 12/18/23 08:46 12/18/23 08:46 12/18/23 08:46 12/18/23 08:46 12/18/23 08:46 Oxygen Delivery Method Room Air Weight: 137 lb 9.095 oz Body Mass Index (BMI) 23.6 Intake & Output: Intake and Output for Last 24 Hours 12/17/23 12/18/23 12/19/23 03:59 03:59 03:59 Intake Total 617 / 617 751 / 751 100 / 100 Output Total 1600 / 1600 1725 / 1725 650 / 650 Balance -983 / -983 -974 / -974 -550 / -550 Lab / Micro Data 12/18/23 08:54 12/18/23 07:15 Labs: Laboratory Results - last 24 hr 12/15/23 06:25: Crossmatch See Detail 12/17/23 16:30: POC Glucose 96 12/17/23 19:00: Hgb 8.7 L, Hct 26.1 L 12/17/23 21:35: POC Glucose 199 H 12/18/23 07:15: WBC Cancelled, Corrected WBC Cancelled, RBC Cancelled, Hgb Cancelled, Hct Cancelled, MCV Cancelled, MCH Cancelled, MCHC Cancelled, RDW Std Deviation Cancelled, RDW Coeff of Emperatriz Cancelled, Plt Count Cancelled, MPV Cancelled, Immature Gran % (Auto) Cancelled, Neut % (Auto) Cancelled, Lymph % (Auto) Cancelled, [place] % (Auto) Cancelled, Eos % (Auto) Cancelled, Baso % (Auto) Cancelled, Absolute Neuts (auto) Cancelled, Absolute Lymphs (auto) Cancelled, Total Counted Cancelled, Neutrophils % (Manual) Cancelled, Band Neutrophils % Cancelled, Lymphocytes % (Manual) Cancelled, Monocytes % (Manual) Cancelled, Eosinophils % (Manual) Cancelled, Basophils % (Manual) Cancelled, Metamyelocytes % Cancelled, Myelocytes % Cancelled, Promyelocytes % Cancelled, Blast Cells % Cancelled, Plasma Cell % (Manual) Cancelled, Other Cells % Cancelled, Nucleated RBC % Cancelled, Nucleated RBCs/100 WBC Cancelled, Differential Comment Cancelled, Diff Path Review Cancelled, Hypersegmented Neuts Cancelled, Atypical Lymphocytes Cancelled, Reactive Lymphocytes Cancelled, Smudge Cells Cancelled, Toxic Granulation Cancelled, Toxic Vacuolation Cancelled, Dohle Bodies Cancelled, Jaswinder Rods Cancelled, Platelet Estimate Cancelled, Plt Morphology Comment Cancelled, RBC Morphology Cancelled 12/18/23 07:15: RBC Morphology Cancelled, Polychromasia Cancelled, Hypochromasia Cancelled, Poikilocytosis Cancelled, Basophilic Stippling Cancelled, Anisocytosis Cancelled, Microcytosis Cancelled, Macrocytosis Cancelled, Spherocytes Cancelled, Sickle Cells Cancelled, Target Cells Cancelled, Tear Drop Cells Cancelled, Ovalocytes Cancelled, Stomatocytes Cancelled, [place] Bodies Cancelled, Don Cells Cancelled, Bite Cells Cancelled, Crenated Cell Cancelled, Acanthocytes (Spur) Cancelled, Rouleaux Cancelled, Schistocytes Cancelled, Sodium 142, Potassium 3.5, Chloride 113 H, Carbon Dioxide 25.0, Anion Gap 4 L, BUN 15, Creatinine 0.57, Estim Creat Clear Calc 49.24, Est GFR (MDRD) Af Amer 132, Est GFR (MDRD) Non-Af 109, BUN/Creatinine Ratio 26.4 H, Glucose 206 H, Calcium 7.9 L 12/18/23 08:42: POC Glucose 222 H 12/18/23 08:54: WBC 9.3, RBC 2.95 L, Hgb 8.5 L, Hct 26.1 L, MCV 88.5, MCH 28.8, MCHC 32.6, RDW Std Deviation 54.5 H, RDW Coeff of Emperatriz 18.3 H, Plt Count 152, MPV 10.2, Immature Gran % (Auto) 4.100 H, Neut % (Auto) 70.0, Lymph % (Auto) 12.3 L, [place] % (Auto) 9.9, Eos % (Auto) 2.9, Baso % (Auto) 0.8, Absolute Neuts (auto) 6.5, Absolute Lymphs (auto) 1.15, Nucleated RBC % 0.4 12/18/23 11:45: POC Glucose 171 H Physical Exam Narrative General: Alert, Oriented x3, Cooperative, No apparent distress HEENT: Atraumatic, PERRLA, EOMI, Normocephalic Oral: Moist Mucosa Neck: Supple, No JVD Lungs: Diminished, Normal air movement, No rhonchi, No wheeze, No rales Cardiovascular: Regular rate, Regular Rhythm, Normal S1, Normal S2, No murmurs Abdomen: Soft, nontender, Non-Distended, No Hepato-splenomegaly Extremities: No edema, Capillary Refill Less than 3 Seconds Skin: No rashes, No breakdown, pallor Musculoskeletal: No Tenderness to Palpation of Joints or Extremities Neurological: No focal neurological deficits, Motor Exam 5/5 strength throughout, Sensory exam intact to light touch and pain Psych/Mental Status: Normal Affect, Appropriate Assessment & Plan Assessment/Plan (1) Pyloric channel ulcer: (2) UGIB (upper gastrointestinal bleed): (3) Acute blood loss anemia: PLAN: Plan 1. Recurrent upper GI bleed with coffee-ground emesis, acute blood loss anemia Recent EGD on 12/[address] Ferrer showed a duodenal ulcer that was treated. Hemoglobin was stable at 9.3 on discharge on 12/13. Presume that recurrent GI bleed was due to resumption of home Eliquis. Presented with recurrent nausea/vomiting and coffee-ground emesis, hemoglobin 6.6 on 12/15. ? Admit under inpatient status to PCU. Gastroenterology consulted. N.p.o. for EGD. Continue PPI drip for now. Transfusing 2 units of packed blood cells on 12/15, repeat hemoglobin pending. Holding home Eliquis. 12/16/2023: Will need to transfuse 1 unit today with a hemoglobin of 6.8, CT of the abdomen and pelvis is pending to eval for bleeding and this abdominal pain 12/17/2023: Hemoglobin dropped again to 6.8, will repeat a unit of blood, no obvious signs of bleeding on the CTA of the abdomen pelvis yesterday though did show a dilated bladder and hydronephrosis. Continue with Fabrice and will discuss the case with gastroenterology 12/18/2023: Hemoglobin this morning is 8.5, yesterday's recheck after unit of blood was 8.7 from 6.8. 2. Paroxysmal atrial fibrillation ? Sinus tachycardia on admission secondary to GI bleed. On Eliquis for anticoagulation, holding in setting of GI bleed as noted above. Will need to discuss with gastroenterology prior to discharge on plan for anticoagulation. Holding home verapamil for now, restart when able. 12/16: Heart rate stable 3. Mild leukocytosis ? WBC count 14.0 on admit. Suspect secondary to acute stress state, low concern for active infection. Follow-up a.m. CBC. 4. Type 2 diabetes mellitus with hyperglycemia ? BG 410 on admit. Home regimen of Lantus 20 units at night and Trulicity. Start Lantus 15 units at night with sliding-scale insulin with regular glucose checks while inpatient, adjust as needed. 5. Recent mechanical fall with right-sided rib pain ? Imaging on previous admission with no acute fractures or significant hematomas noted. PT/OT/case management followed during that admission, was okay for discharge home with no needs. Continue Tylenol as needed for pain. 6. Urinary retention ? Will consult urology ? Continue with Avina Chronic medical conditions: ? History of CAD s/p stenting, hypertension, hyperlipidemia: Continue home statin, holding home lisinopril. ? History of breast carcinoma s/p lumpectomy DVT: SCDs Charges/Coding Visit Charges Inpatient E&M: 43962 Subs Hosp L2
[2023-12-18 15:31] VITALS: BP 146/65; PULSE 92; RESP 18; TEMP 37.1; O2SAT 95
[2023-12-18 16:01] LABS: Bedside Glucose 194 mg/dL (74-106)
--- NOTE | 2023-12-18 17:24 | CASEMGMT ---
RN CM in to discuss needs at discharge. Patient wishes to discharge home. Patient states if she would need new catheter at discharge, would be interested in HHC. CM will continue to follow this patient and plan for a safe discharge.
[2023-12-18 17:25] LABS: Hematocrit 24.9 % (37-47); Hemoglobin 8.2 g/dL (12.0-15.0)
[2023-12-18 21:30] VITALS: BP 157/59; PULSE 97; RESP 16; TEMP 37.3; O2SAT 96
[2023-12-18] MEDS: Insulin Glargine-YFGN 100 UNIT/ML Pen 25 UNIT SC (22:31)
[2023-12-18] MEDS: Pravastatin 80 MG Tablet PO (22:32)
[2023-12-19 00:29] LABS: Bedside Glucose 153 mg/dL (74-106)
[2023-12-19 03:30] VITALS: BP 155/61; PULSE 93; RESP 16; TEMP 36.9; O2SAT 94
[2023-12-19 06:09] LABS: Absolute Lymphocyte Count 1.07 X10^3/uL (0.83-4.51); Absolute Neutrophil Count 5.1 X10^3/uL (2.0-7.7); Basophil# 0.05 X10^3/uL; Basophil% 0.7 % (0-1); Eosinophil# 0.21 X10^3/uL; Eosinophils% 2.9 % (0-5); Hematocrit 24.2 % (37-47); Lymphocyte # 1.07 X10^3/ul (0.83-4.51); Lymphocyte % 14.7 % (19-41); Mean Corp Hgb Conc 33.1 g/dL (32-36); Mean Corpuscular Volume 87.7 fL (81-99); Monocyte# 0.71 X10^3/uL; Monocyte% 9.8 % (0-10); NRBC Flagged by Analyzer 0 % (0-5); Neutrophil # 5.05 X10^3/uL (2.7-7.7); Neutrophil % 69.4 % (47-70); Platelet Count 168 K/mm3 (150-450); RBC Distribution Width CV 18.1 % (11.6-14.6); RBC Distribution Width SD 53.6 fl (35.1-43.9); Red Blood Count 2.76 M/mm3 (4.2-5.4); White Blood Count 7.3 K/mm3 (4.4-11.0)
[2023-12-19] MEDS: Insulin Lispro 100 UNIT/ML INSULN.PEN 10 UNIT SC ×2 (07:44→16:09)
[2023-12-19] MEDS: Insulin Lispro 100 UNIT/ML INSULN.PEN SC ×3 (07:44→21:42)
[2023-12-19 07:59] LABS: Bedside Glucose 191 mg/dL (74-106)
[2023-12-19] MEDS: Pantoprazole Sodium 80 MG in 0.9% Normal Saline (100mL Bag) 80 ML 10 MG CONT INF ×2 (08:24→18:04)
[2023-12-19] MEDS: BRIMONIDINE 0.2% 5ML BOTTLE 1 DRP OPHTHALMIC ×2 (08:25→21:42)
[2023-12-19] MEDS: Pyridoxine HCl 100 MG Tablet PO (08:26)
[2023-12-19 10:01] VITALS: BP 118/52; PULSE 81; RESP 14; TEMP 37.2; O2SAT 95
--- NOTE | 2023-12-19 10:43 | PN.HOSP_ITS ---
Subjective Subjective Hemoglobin has slight trend downward so we will recheck this afternoon. Otherwise no issues, doing well Objective Data Objective Data Vital Signs: Vital Signs Temp Pulse Resp BP Pulse Ox O2 Del Method 99.0 F 81 14 118/52 L 95 Room Air 12/19/23 10:01 12/19/23 10:01 12/19/23 10:01 12/19/23 10:01 12/19/23 10:01 12/19/23 10:01 Oxygen Delivery Method Room Air Weight: 137 lb 9.095 oz Body Mass Index (BMI) 23.6 Intake & Output: Intake and Output for Last 24 Hours 12/18/23 12/19/23 12/20/23 03:59 03:59 03:59 Intake Total 751 / 751 1440 / 1440 98.83 / 98.83 Output Total 1725 / 1725 6250 / 6250 500 / 500 Balance -974 / -974 -4810 / -4810 -401.17 / -401.17 Lab / Micro Data 12/19/23 05:09 12/18/23 07:15 Labs: Laboratory Results - last 24 hr 12/18/23 08:42: POC Glucose 222 H 12/18/23 11:45: POC Glucose 171 H 12/18/23 15:36: POC Glucose 194 H 12/18/23 16:45: Hgb 8.2 L, Hct 24.9 L 12/18/23 22:28: POC Glucose 153 H 12/19/23 05:09: WBC 7.3, RBC 2.76 L, Hgb 8.0 L, Hct 24.2 L, MCV 87.7, MCH 29.0, MCHC 33.1, RDW Std Deviation 53.6 H, RDW Coeff of Emperatriz 18.1 H, Plt Count 168, MPV 10.0, Immature Gran % (Auto) 2.500 H, Neut % (Auto) 69.4, Lymph % (Auto) 14.7 L, [place] % (Auto) 9.8, Eos % (Auto) 2.9, Baso % (Auto) 0.7, Absolute Neuts (auto) 5.1, Absolute Lymphs (auto) 1.07, Nucleated RBC % 0 12/19/23 07:40: POC Glucose 191 H Physical Exam Narrative General: Alert, Oriented x3, Cooperative, No apparent distress HEENT: Atraumatic, PERRLA, EOMI, Normocephalic Oral: Moist Mucosa Neck: Supple, No JVD Lungs: Diminished, Normal air movement, No rhonchi, No wheeze, No rales Cardiovascular: Regular rate, Regular Rhythm, Normal S1, Normal S2, No murmurs Abdomen: Soft, nontender, Non-Distended, No Hepato-splenomegaly Extremities: No edema, Capillary Refill Less than 3 Seconds Skin: No rashes, No breakdown, pallor Musculoskeletal: No Tenderness to Palpation of Joints or Extremities Neurological: No focal neurological deficits, Motor Exam 5/5 strength throughout, Sensory exam intact to light touch and pain Psych/Mental Status: Normal Affect, Appropriate Assessment & Plan Assessment/Plan (1) Pyloric channel ulcer: (2) UGIB (upper gastrointestinal bleed): (3) Acute blood loss anemia: PLAN: Plan 1. Recurrent upper GI bleed with coffee-ground emesis, acute blood loss anemia Recent EGD on 12/[address] Ferrer showed a duodenal ulcer that was treated. Hemoglobin was stable at 9.3 on discharge on 12/13. Presume that recurrent GI bleed was due to resumption of home Eliquis. Presented with recurrent johanny sea/vomiting and coffee-ground emesis, hemoglobin 6.6 on 12/15. ? Admit under inpatient status to PCU. Gastroenterology consulted. N.p.o. for EGD. Continue PPI drip for now. Transfusing 2 units of packed blood cells on 12/15, repeat hemoglobin pending. Holding home Eliquis. 12/16/2023: Will need to transfuse 1 unit today with a hemoglobin of 6.8, CT of the abdomen and pelvis is pending to eval for bleeding and this abdominal pain 12/17/2023: Hemoglobin dropped again to 6.8, will repeat a unit of blood, no obvious signs of bleeding on the CTA of the abdomen pelvis yesterday though did show a dilated bladder and hydronephrosis. Continue with Fabrice and will discuss the case with gastroenterology 12/18/2023: Hemoglobin this morning is 8.5, yesterday's recheck after unit of blood was 8.7 from 6.8. 12/19/2023: Hemoglobin this morning is 8.0, will recheck this afternoon if stable can potentially discharge home 2. Paroxysmal atrial fibrillation ? Sinus tachycardia on admission secondary to GI bleed. On Eliquis for anticoagulation, holding in setting of GI bleed as noted above. Will need to discuss with gastroenterology prior to discharge on plan for anticoagulation. Holding home verapamil for now, restart when able. 12/16: Heart rate stable 3. Mild leukocytosis ? WBC count 14.0 on admit. Suspect secondary to acute stress state, low concern for active infection. Follow-up a.m. CBC. 4. Type 2 diabetes mellitus with hyperglycemia ? BG 410 on admit. Home regimen of Lantus 20 units at night and Trulicity. Start Lantus 15 units at night with sliding-scale insulin with regular glucose checks while inpatient, adjust as needed. 5. Recent mechanical fall with right-sided rib pain ? Imaging on previous admission with no acute fractures or significant hematomas noted. PT/OT/case management followed during that admission, was okay for discharge home with no needs. Continue Tylenol as needed for pain. 6. Urinary retention ? Will consult urology ? Continue with Avina Chronic medical conditions: ? History of CAD s/p stenting, hypertension, hyperlipidemia: Continue home statin, holding home lisinopril. ? History of breast carcinoma s/p lumpectomy DVT: SCDs Charges/Coding Visit Charges Inpatient E&M: 62060 Subs Hosp L2
[2023-12-19 11:31] LABS: Bedside Glucose 119 mg/dL (74-106)
[2023-12-19 16:00] VITALS: BP 175/73; PULSE 90; RESP 14; TEMP 37.8; O2SAT 97
[2023-12-19] MEDS: Acetaminophen 325 MG Tablet 650 MG PO (16:26)
--- NOTE | 2023-12-19 16:29 | CASEMGMT ---
Addendum entered by Sandra Ayers 12/19/23 16:40: Social Work SW sent initial referral to [facility]. SW to follow up on Thursday. YUDITH Murguia Original Note: Social Work SW met w/pt, provided to pt a list of half-way facilities via [facility] in network w/pt's insurance, in pt's preferred geographic area, and complete w/quality and resource use data. Pt states she would like to go to [facility]. SW asked her to review the list and pick a couple of places as backup in the event [facility] cannot take pt, pt states understanding. SW to make referral to [facility]. YUDITH Murguia
[2023-12-19 16:34] LABS: Bedside Glucose 207 mg/dL (74-106)
--- NOTE | 2023-12-19 16:34 | EX.PCM.PN.GI ---
Subjective Subjective Patient underwent repeat emergent upper endoscopy for GI bleed. He was discovered to have large peptic ulcer that was clipped and cauterized. Her hemoglobin did go down slightly. She was receiving transfusion of 1 unit packed red blood cells. She states that she is hungry and would like to have her diet advanced as tolerated. Objective Data Objective Data Vital Signs: Vital Signs Temp Pulse Resp BP Pulse Ox O2 Del Method 100.1 F H 90 14 175/73 H 97 Room Air 12/19/23 16:00 12/19/23 16:00 12/19/23 16:00 12/19/23 16:00 12/19/23 16:00 12/19/23 16:00 Oxygen Delivery Method Room Air Weight: 137 lb 9.095 oz Body Mass Index (BMI) 23.6 Intake & Output: Intake and Output for Last 24 Hours 12/17/23 12/18/23 12/19/23 23:59 23:59 23:59 Intake Total 851 / 851 1440 / 1440 698.83 / 698.83 Output Total 1275 / 1725 3050 / 4875 4600 / 4600 Balance -424 / -874 -1610 / -3435 -3901.17 / -3901.17 Lab / Micro Data 12/19/23 11:40 12/18/23 07:15 Labs: Laboratory Results - last 24 hr 12/18/23 16:45: Hgb 8.2 L, Hct 24.9 L 12/18/23 22:28: POC Glucose 153 H 12/19/23 05:09: WBC 7.3, RBC 2.76 L, Hgb 8.0 L, Hct 24.2 L, MCV 87.7, MCH 29.0, MCHC 33.1, RDW Std Deviation 53.6 H, RDW Coeff of Emperatriz 18.1 H, Plt Count 168, MPV 10.0, Immature Gran % (Auto) 2.500 H, Neut % (Auto) 69.4, Lymph % (Auto) 14.7 L, [place] % (Auto) 9.8, Eos % (Auto) 2.9, Baso % (Auto) 0.7, Absolute Neuts (auto) 5.1, Absolute Lymphs (auto) 1.07, Nucleated RBC % 0 12/19/23 07:40: POC Glucose 191 H 12/19/23 11:09: POC Glucose 119 H 12/19/23 11:40: Hgb 8.0 L, Hct 24.0 L 12/19/23 16:07: POC Glucose 207 H Physical Exam Narrative General: Alert, Oriented x3, Cooperative, No apparent distress HEENT: Atraumatic, PERRLA, EOMI, Normocephalic Oral: Moist Mucosa Neck: Supple, No JVD Lungs: Diminished, Normal air movement, No rhonchi, No wheeze, No rales Cardiovascular: Regular rate, Regular Rhythm, Normal S1, Normal S2, No murmurs Abdomen: Soft, nontender, Non-Distended, No Hepato-splenomegaly Extremities: No edema, Capillary Refill Less than 3 Seconds Skin: No rashes, No breakdown, pallor Musculoskeletal: No Tenderness to Palpation of Joints or Extremities Neurological: No focal neurological deficits, Motor Exam 5/5 strength throughout, Sensory exam intact to light touch and pain Psych/Mental Status: Normal Affect, Appropriate Assessment & Plan Assessment/Plan (1) UGIB (upper gastrointestinal bleed): (2) Acute blood loss anemia: PLAN: Plan Patient is a 78-year-old female who presented to [facility] ED on 12/11/2023 with hematemesis. Findings: The examined esophagus was normal. One oozing cratered gastric ulcer with pigmented material was found on the greater curvature of the stomach. The lesion was 6 mm in largest dimension. Area was successfully injected with 5 mL of a 0.1 mg/mL solution of epinephrine for drug delivery. To stop active bleeding, hemostatic spray was deployed. Five sprays were applied. There was no bleeding at the end of the procedure. Coagulation for hemostasis using heater probe was successful. Estimated blood loss was minimal. No gross lesions were noted in the first portion of the duodenum. One 5 mm angiodysplastic lesion with bleeding was found in the first portion of the duodenum. Coagulation for hemostasis using argon plasma at 0.3 liters/minute and 20 keller was successful. Estimated blood loss was minimal. Impression: - Normal esophagus. - Oozing gastric ulcer with pigmented material. Injected. hemostatic spray applied. Treated with a heater probe. - No gross lesions in the first portion of the duodenum. - No specimens collected. Recommendation: - Return patient to hospital chan for ongoing care. - NPO. - Continue present medications. Her hemoglobin is still slightly down to 6.8 from 7.9 to 6.8. Also her BUN to creatinine ratio is still elevated. She may be losing around the site even though it was treated yesterday due to poor wound healing. She also had some focal stranding consistent with enteritis extending to the cecum. Her CTA did not show any signs of bleeding. Her hemoglobin seems stable at 8. She can have her diet advanced as tolerated. .
[2023-12-19 21:40] VITALS: BP 158/74; PULSE 95; RESP 18; TEMP 36.9; O2SAT 98
[2023-12-19] MEDS: Insulin Glargine-YFGN 100 UNIT/ML Pen 25 UNIT SC (21:42)
[2023-12-19] MEDS: Pravastatin 80 MG Tablet PO (21:43)
[2023-12-19 22:06] LABS: Bedside Glucose 170 mg/dL (74-106)
[2023-12-20] MEDS: Pantoprazole Sodium 80 MG in 0.9% Normal Saline (100mL Bag) 80 ML 10 MG CONT INF (03:21)
[2023-12-20 03:37] VITALS: BP 148/68; PULSE 88; RESP 18; TEMP 36.7; O2SAT 97
[2023-12-20 06:23] LABS: Absolute Lymphocyte Count 1.07 X10^3/uL (0.83-4.51); Basophil# 0.05 X10^3/uL; Basophil% 0.6 % (0-1); Eosinophil# 0.18 X10^3/uL; Eosinophils% 2.2 % (0-5); Hematocrit 24.8 % (37-47); Hemoglobin 8.1 g/dL (12.0-15.0); Lymphocyte # 1.07 X10^3/ul (0.83-4.51); Mean Corp Hgb Conc 32.7 g/dL (32-36); Mean Corpuscular Hgb 29.2 pg (27.0-32.0); Mean Corpuscular Volume 89.5 fL (81-99); Mean Platelet Vol. 10.2 fl (6.2-12.0); Monocyte# 0.77 X10^3/uL; Monocyte% 9.4 % (0-10); NRBC Flagged by Analyzer 0 % (0-5); Neutrophil # 6.03 X10^3/uL (2.7-7.7); Neutrophil % 73.2 % (47-70); Platelet Count 188 K/mm3 (150-450); RBC Distribution Width CV 17.7 % (11.6-14.6); RBC Distribution Width SD 54.5 fl (35.1-43.9); Red Blood Count 2.77 M/mm3 (4.2-5.4); White Blood Count 8.2 K/mm3 (4.4-11.0)
[2023-12-20 06:37] LABS: Anion Gap 3 (5-15); BUN 7 mg/dL (7-18); BUN/Creat Ratio 14.3 RATIO (10-20); Calcium,Total 7.9 mg/dL (8.5-10.1); Chloride 109 mmol/L (98-107); Creatinine, Serum 0.49 mg/dL (0.55-1.02); EST Glomerular Filtration Rate 129 mL/min (>60); Est Glom Filt Rate - Afr Amer 156 mL/min (>60); Estimated Creatinine Clearance 49.24 ml/min; Glucose 87 mg/dL (74-106); Potassium 2.9 mmol/L (3.5-5.1); Sodium Level 142 mmol/L (136-145)
[2023-12-20 08:42] LABS: Bedside Glucose 77 mg/dL (74-106)
--- NOTE | 2023-12-20 09:25 | PN.HOSP_ITS ---
Subjective Subjective Hemoglobin is stable but now she feels too weak to go home we will have her evaluated by physical therapy Objective Data Objective Data Vital Signs: Vital Signs Temp Pulse Resp BP Pulse Ox O2 Del Method 98.1 F 88 18 148/68 H 97 Room Air 12/20/23 03:37 12/20/23 03:37 12/20/23 03:37 12/20/23 03:37 12/20/23 03:37 12/20/23 03:37 Oxygen Delivery Method Room Air Weight: 137 lb 9.095 oz Body Mass Index (BMI) 23.6 Intake & Output: Intake and Output for Last 24 Hours 12/19/23 12/20/23 12/21/23 03:59 03:59 03:59 Intake Total 1440 / 1440 1538.33 / 1538.33 24.83 / 24.83 Output Total 6250 / 6250 2900 / 2900 350 / 350 Balance -4810 / -4810 -1361.67 / -1361.67 -325.17 / -325.17 Lab / Micro Data 12/20/23 05:35 12/20/23 05:35 Labs: Laboratory Results - last 24 hr 12/19/23 11:09: POC Glucose 119 H 12/19/23 11:40: Hgb 8.0 L, Hct 24.0 L 12/19/23 16:07: POC Glucose 207 H 12/19/23 21:41: POC Glucose 170 H 12/20/23 05:35: WBC 8.2, RBC 2.77 L, Hgb 8.1 L, Hct 24.8 L, MCV 89.5, MCH 29.2, MCHC 32.7, RDW Std Deviation 54.5 H, RDW Coeff of Emperatriz 17.7 H, Plt Count 188, MPV 10.2, Immature Gran % (Auto) 1.600 H, Neut % (Auto) 73.2 H, Lymph % (Auto) 13.0 L, [place] % (Auto) 9.4, Eos % (Auto) 2.2, Baso % (Auto) 0.6, Absolute Neuts (auto) 6.0, Absolute Lymphs (auto) 1.07, Nucleated RBC % 0, Sodium 142, Potassium 2.9 L , Chloride 109 H, Carbon Dioxide 30.0, Anion Gap 3 L, BUN 7, Creatinine 0.49 L, Estim Creat Clear Calc 49.24, Est GFR (MDRD) Af Amer 156, Est GFR (MDRD) Non-Af 129, BUN/Creatinine Ratio 14.3, Glucose 87, Calcium 7.9 L 12/20/23 08:13: POC Glucose 77 Physical Exam Narrative General: Alert, Oriented x3, Cooperative, No apparent distress HEENT: Atraumatic, PERRLA, EOMI, Normocephalic Oral: Moist Mucosa Neck: Supple, No JVD Lungs: Diminished, Normal air movement, No rhonchi, No wheeze, No rales Cardiovascular: Regular rate, Regular Rhythm, Normal S1, Normal S2, No murmurs Abdomen: Soft, nontender, Non-Distended, No Hepato-splenomegaly Extremities: No edema, Capillary Refill Less than 3 Seconds Skin: No rashes, No breakdown, pallor Musculoskeletal: No Tenderness to Palpation of Joints or Extremities Neurological: No focal neurological deficits, Motor Exam 5/5 strength throughout, Sensory exam intact to light touch and pain Psych/Mental Status: Normal Affect, Appropriate Assessment & Plan Assessment/Plan (1) Pyloric channel ulcer: (2) UGIB (upper gastrointestinal bleed): (3) Acute blood loss anemia: PLAN: Plan 1. Recurrent upper GI bleed with coffee-ground emesis, acute blood loss anemia Recent EGD on 12/[address] Ferrer showed a duodenal ulcer that was treated. Hemoglobin was stable at 9.3 on discharge on 12/13. Presume that recurrent GI bleed was due to resumption of home Eliquis. Presented with recurrent nausea /vomiting and coffee-ground emesis, hemoglobin 6.6 on 12/15. ? Admit under inpatient status to PCU. Gastroenterology consulted. N.p.o. for EGD. Continue PPI drip for now. Transfusing 2 units of packed blood cells on 12/15, repeat hemoglobin pending. Holding home Eliquis. 12/16/2023: Will need to transfuse 1 unit today with a hemoglobin of 6.8, CT of the abdomen and pelvis is pending to eval for bleeding and this abdominal pain 12/17/2023: Hemoglobin dropped again to 6.8, will repeat a unit of blood, no obvious signs of bleeding on the CTA of the abdomen pelvis yesterday though did show a dilated bladder and hydronephrosis. Continue with Avina and will discuss the case with gastroenterology 12/18/2023: Hemoglobin this morning is 8.5, yesterday's recheck after unit of blood was 8.7 from 6.8. 12/19/2023: Hemoglobin this morning is 8.0, will recheck this afternoon if stable can potentially discharge home 12/20/2023: Hemoglobin is stabilized will continue to monitor and restart Eliquis in a few days. In the meantime continue with PT/OT for debility and recommendations on possible placement 2. Paroxysmal atrial fibrillation ? Sinus tachycardia on admission secondary to GI bleed. On Eliquis for anticoagulation, holding in setting of GI bleed as noted above. Will need to discuss with gastroenterology prior to discharge on plan for anticoagulation. Holding home verapamil for now, restart when able. 12/16: Heart rate stable 3. Mild leukocytosis ? WBC count 14.0 on admit. Suspect secondary to acute stress state, low concern for active infection. Follow-up a.m. CBC. 4. Type 2 diabetes mellitus with hyperglycemia ? BG 410 on admit. Home regimen of Lantus 20 units at night and Trulicity. Start Lantus 15 units at night with sliding-scale insulin with regular glucose checks while inpatient, adjust as needed. 5. Recent mechanical fall with right-sided rib pain ? Imaging on previous admission with no acute fractures or significant hematomas noted. PT/OT/case management followed during that admission, was okay for discharge home with no needs. Continue Tylenol as needed for pain. 6. Urinary retention ? Will consult urology ? Continue with Avina Chronic medical conditions: ? History of CAD s/p stenting, hypertension, hyperlipidemia: Continue home statin, holding home lisinopril. ? History of breast carcinoma s/p lumpectomy DVT: SCDs Charges/Coding Visit Charges Inpatient E&M: 28379 Subs Hosp L2
[2023-12-20] MEDS: Pyridoxine HCl 100 MG Tablet PO (09:38)
[2023-12-20] MEDS: Pantoprazole Sodium 40 MG Tablet PO (09:38)
[2023-12-20] MEDS: BRIMONIDINE 0.2% 5ML BOTTLE 1 DRP OPHTHALMIC ×2 (09:38→20:46)
[2023-12-20 09:40] VITALS: BP 147/59; PULSE 102; RESP 18; TEMP 36.7; O2SAT 95
[2023-12-20] MEDS: Insulin Lispro 100 UNIT/ML INSULN.PEN 10 UNIT SC ×2 (12:01→16:49)
[2023-12-20] MEDS: Insulin Lispro 100 UNIT/ML INSULN.PEN SC ×3 (12:01→20:49)
[2023-12-20 12:29] LABS: Bedside Glucose 222 mg/dL (74-106)
[2023-12-20] MEDS: Potassium Chloride Oral Tablet 20 MEQ 60 MEQ PO (14:22)
[2023-12-20 15:00] VITALS: BP 146/58; PULSE 90; RESP 16; TEMP 36.9; O2SAT 97
[2023-12-20 17:11] LABS: Bedside Glucose 249 mg/dL (74-106)
[2023-12-20] MEDS: Pravastatin 80 MG Tablet PO (20:45)
[2023-12-20] MEDS: Insulin Glargine-YFGN 100 UNIT/ML Pen 25 UNIT SC (20:46)
[2023-12-20 21:00] VITALS: BP 141/71; PULSE 83; RESP 16; TEMP 37.4; O2SAT 96
[2023-12-21 03:00] VITALS: BP 138/63; PULSE 92; RESP 17; TEMP 36.7; O2SAT 96
[2023-12-21 06:36] LABS: Absolute Lymphocyte Count 1.19 X10^3/uL (0.83-4.51); Absolute Neutrophil Count 6.5 X10^3/uL (2.0-7.7); Basophil# 0.05 X10^3/uL; Basophil% 0.6 % (0-1); Eosinophil# 0.16 X10^3/uL; Eosinophils% 1.8 % (0-5); Hematocrit 25.5 % (37-47); Hemoglobin 8.1 g/dL (12.0-15.0); Lymphocyte # 1.19 X10^3/ul (0.83-4.51); Lymphocyte % 13.5 % (19-41); Mean Corp Hgb Conc 31.8 g/dL (32-36); Mean Corpuscular Hgb 28.7 pg (27.0-32.0); Mean Corpuscular Volume 90.4 fL (81-99); Mean Platelet Vol. 10.4 fl (6.2-12.0); Monocyte# 0.81 X10^3/uL; Monocyte% 9.2 % (0-10); NRBC Flagged by Analyzer 0 % (0-5); Neutrophil # 6.48 X10^3/uL (2.7-7.7); Neutrophil % 73.8 % (47-70); Platelet Count 199 K/mm3 (150-450); RBC Distribution Width CV 17.2 % (11.6-14.6); RBC Distribution Width SD 55.2 fl (35.1-43.9); Red Blood Count 2.82 M/mm3 (4.2-5.4); White Blood Count 8.8 K/mm3 (4.4-11.0)
[2023-12-21 06:51] LABS: Bedside Glucose 77 mg/dL (74-106)
--- NOTE | 2023-12-21 06:54 | NURSING ---
Patient's blood sugar was 77 this am. Insulin held and patient given cranberry juice.
[2023-12-21 06:58] LABS: Anion Gap 4 (5-15); BUN 7 mg/dL (7-18); Calcium,Total 8.3 mg/dL (8.5-10.1); Chloride 111 mmol/L (98-107); Creatinine, Serum 0.44 mg/dL (0.55-1.02); EST Glomerular Filtration Rate 148 mL/min (>60); Est Glom Filt Rate - Afr Amer 179 mL/min (>60); Estimated Creatinine Clearance 49.24 ml/min; Glucose 77 mg/dL (74-106); Potassium 3.2 mmol/L (3.5-5.1); Sodium Level 142 mmol/L (136-145)
[2023-12-21 08:29] VITALS: BP 169/74; PULSE 91; RESP 17; TEMP 36.8; O2SAT 98
[2023-12-21] MEDS: Pyridoxine HCl 100 MG Tablet PO (08:35)
[2023-12-21] MEDS: BRIMONIDINE 0.2% 5ML BOTTLE 1 DRP OPHTHALMIC ×2 (08:35→21:42)
[2023-12-21] MEDS: Pantoprazole Sodium 40 MG Tablet PO (08:37)
--- NOTE | 2023-12-21 09:24 | CASEMGMT ---
Addendum entered by Enma Harrison 12/22/23 09:50: [facility] has obtained auth. SW updated. Enma Harrison, Discharge Planning Asst. Original Note: Discharge Planning Patient has been accepted by [facility]. Updates sent via [facility] and asked for precert to be submitted. Enma Harrison, Discharge Planning Asst.
--- NOTE | 2023-12-21 10:54 | CASEMGMT ---
SW spoke with patient. Introduced self and role at [facility]. SW let patient know that [facility] can take her at d/c. SW explained to patient that her insurance needs to approve before she can be moved and this could be a day or so. SW also let patient know what she [facility]. Plan: [facility] pending insurance approval. Cristal FONTAINE
--- NOTE | 2023-12-21 11:13 | PCM.PN.HOSP ---
Subjective Subjective Doing well, no issues overnight. Diarrhea is resolved Objective Data Objective Data Vital Signs: Vital Signs Temp Pulse Resp BP Pulse Ox O2 Del Method 98.2 F 91 17 169/74 H 98 Room Air 12/21/23 08:29 12/21/23 08:29 12/21/23 08:29 12/21/23 08:29 12/21/23 08:29 12/21/23 10:00 Oxygen Delivery Method Room Air Weight: 137 lb 9.095 oz Body Mass Index (BMI) 23.6 Intake & Output: Intake and Output for Last 24 Hours 12/20/23 12/21/23 12/22/23 03:59 03:59 03:59 Intake Total 1538.33 / 1538.33 324.83 / 324.83 Output Total 2900 / 2900 1999 / 1999 450 / 450 Balance -1361.67 / -1361.67 -1675.17 / -1675.17 -450 / -450 Lab / Micro Data 12/21/23 06:05 12/21/23 06:05 Labs: Laboratory Results - last 24 hr 12/20/23 12:00: POC Glucose 222 H 12/20/23 16:48: POC Glucose 249 H 12/21/23 06:05: WBC 8.8, RBC 2.82 L, Hgb 8.1 L, Hct 25.5 L, MCV 90.4, MCH 28.7, MCHC 31.8 L, RDW Std Deviation 55.2 H, RDW Coeff of Emperatriz 17.2 H, Plt Count 199, MPV 10.4, Immature Gran % (Auto) 1.100 H, Neut % (Auto) 73.8 H, Lymph % (Auto) 13.5 L, [place] % (Auto) 9.2, Eos % (Auto) 1.8, Baso % (Auto) 0.6, Absolute Neuts (auto) 6.5, Absolute Lymphs (auto) 1.19, Nucleated RBC % 0, Sodium 142, Potassium 3.2 L, Chloride 111 H, Carbon Dioxide 27.0, Anion Gap 4 L, BUN 7, Creatinine 0.44 L, Estim Creat Clear Calc 49.24, Est GFR (MDRD) Af Amer 179, Est GFR (MDRD) Non-Af 148, BUN/Creatinine Ratio 16.0, Glucose 77, Calcium 8.3 L 12/21/23 06:31: POC Glucose 77 Physical Exam Narrative General: Alert, Oriented x3, Cooperative, No apparent distress HEENT: Atraumatic, PERRLA, EOMI, Normocephalic Oral: Moist Mucosa Neck: Supple, No JVD Lungs: Diminished, Normal air movement, No rhonchi, No wheeze, No rales Cardiovascular: Regular rate, Regular Rhythm, Normal S1, Normal S2, No murmurs Abdomen: Soft, nontender, Non-Distended, No Hepato-splenomegaly Extremities: No edema, Capillary Refill Less than 3 Seconds Skin: No rashes, No breakdown, pallor Musculoskeletal: No Tenderness to Palpation of Joints or Extremities Neurological: No focal neurological deficits, Motor Exam 5/5 strength throughout, Sensory exam intact to light touch and pain Psych/Mental Status: Normal Affect, Appropriate Assessment & Plan Assessment/Plan (1) Pyloric channel ulcer: (2) UGIB (upper gastrointestinal bleed): (3) Acute blood loss anemia: PLAN: Plan 1. Recurrent upper GI bleed with coffee-ground emesis, acute blood loss anemia Recent EGD on 12/[address] Ferrer showed a duodenal ulcer that was treated. Hemoglobin was stable at 9.3 on discharge on 12/13. Presume that recurrent GI bleed was due to resumption of home Eliquis. Presented with recurrent nausea/vomiting and coffee-ground emesis, hemoglobin 6.6 on 12/15. ? Admit under inpatient status to PCU. Gastroenterology consulted. N.p.o. for EGD. Continue PPI drip for now. Transfusing 2 units of packed blood cells on 12/15, repeat hemoglobin pending. Holding home Eliquis. 12/16/2023: Will need to transfuse 1 unit today with a hemoglobin of 6.8, CT of the abdomen and pelvis is pending to eval for bleeding and this abdominal pain 12/17/2023: Hemoglobin dropped again to 6.8, will repeat a unit of blood, no obvious signs of bleeding on the CTA of the abdomen pelvis yesterday though did show a dilated bladder and hydronephrosis. Continue with Avina and will discuss the case with gastroenterology 12/18/2023: Hemoglobin this morning is 8.5, yesterday's recheck after unit of blood was 8.7 from 6.8. 12/19/2023: Hemoglobin this morning is 8.0, will recheck this afternoon if stable can potentially discharge home 12/20/2023: Hemoglobin is stabilized will continue to monitor and restart Eliquis in a few days. In the meantime continue with PT/OT for debility and recommendations on possible placement 12/21/2023: PT and OT feel that rehab would be necessary, so she is now pending pre-CERT 2. Paroxysmal atrial fibrillation ? Sinus tachycardia on admission secondary to GI bleed. On Eliquis for anticoagulation, holding in setting of GI bleed as noted above. Will need to discuss with gastroenterology prior to discharge on plan for anticoagulation. Holding home verapamil for now, restart when able. 12/16: Heart rate stable 3. Mild leukocytosis?resolved ? WBC count 14.0 on admit. Suspect secondary to acute stress state, low concern for active infection. Follow-up a.m. CBC. 4. Type 2 diabetes mellitus with hyperglycemia ? BG 410 on admit. Home regimen of Lantus 20 units at night and Trulicity. Start Lantus 15 units at night with sliding-scale insulin with regular glucose checks while inpatient, adjust as needed. 5. Recent mechanical fall with right-sided rib pain ? Imaging on previous admission with no acute fractures or significant hematomas noted. PT/OT/case management followed during that admission, was okay for discharge home with no needs. Continue Tylenol as needed for pain. 6. Urinary retention ? Will consult urology ? Continue with Avina on discharge follow-up with him as an outpatient in a week after discharge Chronic medical conditions: ? History of CAD s/p stenting, hypertension, hyperlipidemia: Continue home statin, holding home lisinopril. ? History of breast carcinoma s/p lumpectomy DVT: SCDs Charges/Coding Visit Charges Inpatient E&M: 56293 Subs Hosp L2
[2023-12-21] MEDS: Insulin Lispro 100 UNIT/ML INSULN.PEN SC ×2 (11:25→17:07)
[2023-12-21] MEDS: Insulin Lispro 100 UNIT/ML INSULN.PEN 10 UNIT SC (11:25)
[2023-12-21 11:43] LABS: Bedside Glucose 297 mg/dL (74-106)
--- NOTE | 2023-12-21 13:11 | CHAPLAIN ---
Type of Pastoral Visit ___ Initial Visit _x__ Follow-up Visit ___ On-call Visit ___ General Patient Visit ___ Spiritual Assessment ___ Family Conference ___ Bereavement ___ Rapid Response ___ Code Blue ___ Other (describe below) Pastoral Care Referral From ___ Patient _x__ Family ___ Nurse ___ Physician ___ Ampoule Sealer ___ Courtesy Van Driver ___ Other (describe below) Sacrament/Intervention _x__ Active listening ___ Anointing ___ Methodist ___ Bereavement ___ Communion ___ Kayla exploration ___ ___ Life review _x__ Prayer ___ Reconciliation ___ Sacrament of Sick _x__ Supportive presence ___ Wedding ___ Other (describe below) Pastoral Comments family members have recommended follow up to patient; pt is sitting in chair and states that she has had some improvement and is set to transfer to SNF for rehab soon; pt also discusses her inability to walk on her one foot and is concerned that this issue is not being addressed; listened to patient and gave respect to her concerns; offered a prayer in support;
[2023-12-21 14:46] LABS: Bedside Glucose 156 mg/dL (74-106)
[2023-12-21 14:46] LABS: Bedside Glucose 152 mg/dL (74-106)
[2023-12-21 14:53] VITALS: BP 149/74; PULSE 91; RESP 17; TEMP 36.7; O2SAT 96
[2023-12-21] MEDS: Acetaminophen 325 MG Tablet 650 MG PO (14:57)
[2023-12-21 17:35] LABS: Bedside Glucose 153 mg/dL (74-106)
[2023-12-21 21:36] VITALS: BP 161/71; PULSE 91; RESP 18; TEMP 36.7; O2SAT 96
[2023-12-21] MEDS: Insulin Glargine-YFGN 100 UNIT/ML Pen 25 UNIT SC (21:43)
[2023-12-21] MEDS: Pravastatin 80 MG Tablet PO (21:44)
[2023-12-21 22:22] LABS: Bedside Glucose 138 mg/dL (74-106)
[2023-12-21 23:37] VITALS: BP 122/62; PULSE 88; RESP 18
[2023-12-22 03:23] VITALS: BP 158/63; PULSE 81; RESP 18; TEMP 36.4; O2SAT 98
[2023-12-22 06:31] LABS: Bedside Glucose 77 mg/dL (74-106)
[2023-12-22] MEDS: Pantoprazole Sodium 40 MG Tablet PO (08:27)
[2023-12-22] MEDS: Pyridoxine HCl 100 MG Tablet PO (08:28)
[2023-12-22] MEDS: Insulin Lispro 100 UNIT/ML INSULN.PEN SC ×2 (08:28→11:29)
[2023-12-22] MEDS: Insulin Lispro 100 UNIT/ML INSULN.PEN 10 UNIT SC ×2 (08:28→11:30)
[2023-12-22] MEDS: BRIMONIDINE 0.2% 5ML BOTTLE 1 DRP OPHTHALMIC (08:29)
[2023-12-22 08:32] VITALS: BP 157/71; PULSE 88; RESP 16; TEMP 36.7; O2SAT 95
--- NOTE | 2023-12-22 09:49 | CASEMGMT ---
Patient was approved to go to [facility]. BRANDI notified patient and physician. SW will complete a 7000 in [employer] system. Plan: d/c to [facility] under skilled level of care. Cristal FONTAINE
--- NOTE | 2023-12-22 10:10 | PCM.TXEXTCAR ---
Diet Diet Order/Speech Therapy: 12/21/23 14:12 Diet: Consistent Carb - Calorie Controlled Is pt able to select menu?: Yes Diet Comments: okay for p.o. meds, okay for ice chips How many daily calories?: 1600 calorie Routine Orders/Code Status Routine Lab Work: CBC and BMP Code Status: Full Code Therapies Physical Therapy: Eval and Treat Occupational Therapy: Eval and Treat Problem/Diagnosis (1) Pyloric channel ulcer: Status: Acute Code(s): K25.9 - Gastric ulcer, unspecified as acute or chronic, without hemorrhage or perforation (2) UGIB (upper gastrointestinal bleed): Status: Resolved Code(s): K92.2 - Gastrointestinal hemorrhage, unspecified (3) Acute blood loss anemia: Status: Acute Code(s): D62 - Acute posthemorrhagic anemia Plan 1. Recurrent upper GI bleed with coffee-ground emesis, acute blood loss anemia Recent EGD on 12/[address] Ferrer showed a duodenal ulcer that was treated. Hemoglobin was stable at 9.3 on discharge on 12/13. Presume that recurrent GI bleed was due to resumption of home Eliquis. Presented with recurrent nausea/vomiting and coffee-ground emesis, hemoglobin 6.6 on 12/15. ? Admit under inpatient status to PCU. Gastroenterology consulted. N.p.o. for EGD. Continue PPI drip for now. Transfusing 2 units of packed blood cells on 12/15, repeat hemoglobin pending. Holding home Eliquis. 12/16/2023: Will need to transfuse 1 unit today with a hemoglobin of 6.8, CT of the abdomen and pelvis is pending to eval for bleeding and this abdominal pain 12/17/2023: Hemoglobin dropped again to 6.8, will repeat a unit of blood, no obvious signs of bleeding on the CTA of the abdomen pelvis yesterday though did show a dilated bladder and hydronephrosis. Continue with Avina and will discuss the case with gastroenterology 12/18/2023: Hemoglobin this morning is 8.5, yesterday's recheck after unit of blood was 8.7 from 6.8. 12/19/2023: Hemoglobin this morning is 8.0, will recheck this afternoon if stable can potentially discharge home 12/20/2023: Hemoglobin is stabilized will continue to monitor and restart Eliquis in a few days. In the meantime continue with PT/OT for debility and recommendations on possible placement 12/21/2023: PT and OT feel that rehab would be necessary, so she is now pending pre-CERT 2. Paroxysmal atrial fibrillation ? Sinus tachycardia on admission secondary to GI bleed. On Eliquis for anticoagulation, holding in setting of GI bleed as noted above. Will need to discuss with gastroenterology prior to discharge on plan for anticoagulation. Holding home verapamil for now, restart when able. 12/16: Heart rate stable 3. Mild leukocytosis?resolved ? WBC count 14.0 on admit. Suspect secondary to acute stress state, low concern for active infection. Follow-up a.m. CBC. 4. Type 2 diabetes mellitus with hyperglycemia ? BG 410 on admit. Home regimen of Lantus 20 units at night and Trulicity. Start Lantus 15 units at night with sliding-scale insulin with regular glucose checks while inpatient, adjust as needed. 5. Recent mechanical fall with right-sided rib pain ? Imaging on previous admission with no acute fractures or significant hematomas noted. PT/OT/case management followed during that admission, was okay for discharge home with no needs. Continue Tylenol as needed for pain. 6. Urinary retention ? Will consult urology ? Continue with Avina on discharge follow-up with him as an outpatient in a week after discharge Chronic medical conditions: ? History of CAD s/p stenting, hypertension, hyperlipidemia: Continue home statin, holding home lisinopril. ? History of breast carcinoma s/p lumpectomy DVT: SCDs Allergies/Procedures Done in Hospital Allergies alendronate sodium [From Fosamax] Adverse Reaction (Severe, Verified 12/15/23 05:40) myalgias amoxicillin [Amoxicillin] Adverse Reaction (Verified 12/15/23 05:40) Nausea/Vom/Diarrhea metformin Adverse Reaction (Verified 12/15/23 05:40) Nausea/Vom/Diarrhea shellfish derived Adverse Reaction (Verified 12/15/23 05:40) Nausea/Vom/Diarrhea Procedures: EGD Type of Care/Length of Stay Estimated LOS: Convalescent Care Less Than 30 days Type of Care Needed: Skilled Rehab Potential: Good Prognosis: Good Additional Orders/Day of Discharge Day of Discharge: 02/20/24 Dietary and Speech Recommendations Dietitian Recommendations/Changes: Change diet to 1600 calorie, consistent carbohydrate diet to help w/ glycemic control Offer jamiesita veras with medpass for increased nutrition if consumed. Discharge Plan Admission Admit Date/Time: 12/15/23 07:17 Attending Provider: Gomez Johansen Primary Care Provider: Santo Taveras Consulting Providers: Vincent Schwab; Nitish Sood Discharge Orders/Prescriptions Prescriptions: Continued nitroglycerin 0.4 mg tablet, sublingual 0.4 mg sublingual Q5-15M PRN (Reason: chest pain) Qty: 90 6RF pravastatin 80 mg tablet 80 mg PO QHS cyanocobalamin (vitamin B-12) 1,000 mcg tablet 1,000 mcg PO DAILY pyridoxine (vitamin B6) 100 mg tablet 100 mg PO DAILY verapamil 300 mg capsule, [address] 300 mg PO QHS Trulicity 4.5 mg/0.5 mL pen injector 4.5 mg subcut MO Patient Comments: INJECT 4.5 MG SUBCUTANEOUSLY ONCE PER WEEK ON THURSDAY insulin glargine U-300 conc 300 unit/mL (1.5 mL) insulin pen 20 unit SC QHS brimonidine 0.2 % drops 1 drp ophthalmic (eye) BID Patient Comments: INSTILL 1 DROP INTO EACH EYE TWICE DAILY calcium carbonate-vitamin D3 [Calcium 600 + D(3)] 600 mg-5 mcg (200 unit) tablet 1 tab PO DAILY lisinopril 40 mg tablet 20 mg PO DAILY pantoprazole 40 mg Tablet,Delayed Release (Dr/Ec) 40 mg PO BID 30 Days Qty: 60 0RF Held Eliquis 5 mg tablet 5 mg PO BID Hold Instructions: Resume on 12/24/23. Referrals / Follow Up: Santo Taveras MD [Primary Care Provider] - Disposition Disposition (needs filled in before D/C Order can be placed): [facility] Facility
--- NOTE | 2023-12-22 10:25 | PHA.DC.MR.R ---
Pharmacy [place] Med Reconciliation Pharmacy Service has performed discharge medication reconciliation for this patient. The patient's discharge medication list was reviewed for discrepancies and discrepancies were resolved. Medications at Discharge Home Medications apixaban 5 mg tablet (Eliquis) 5 mg PO BID a.fib 09/06/19 cyanocobalamin (vitamin B-12) 1,000 mcg tablet 1,000 mcg PO DAILY vitamin deficient 09/06/19 pravastatin 80 mg tablet 80 mg PO QHS cholesterol 09/06/19 pyridoxine (vitamin B6) 100 mg tablet 100 mg PO DAILY vitamin deficient 09/06/19 nitroglycerin 0.4 mg sublingual tablet 0.4 mg sublingual Q5-15M PRN chest pain #90 tabs 09/08/19 insulin glargine U-300 conc 300 unit/mL (1.5 mL) subcutaneous pen 20 unit subcut QHS diabetes 08/14/21 dulaglutide 4.5 mg/0.5 mL subcutaneous pen injector (Trulicity) 4.5 mg subcut MO 08/06/23 verapamil 300 mg capsule [address] pellet [address],ext.release 300 mg PO QHS blood pressure 08/06/23 brimonidine 0.2 % eye drops 1 drp ophthalmic (eye) BID Glaucoma 12/11/23 calcium carbonate 600 mg-vitamin D3 5 mcg (200 unit) tablet (Calcium 600 + D(3)) 1 tab PO DAILY vitamin deficient 12/11/23 lisinopril 40 mg tablet 20 mg PO DAILY HIG BLOOD PRESSURE 12/11/23 pantoprazole 40 mg tablet,delayed release 40 mg PO BID 30 days #60 tabs 12/13/23
--- NOTE | 2023-12-22 11:15 | CASEMGMT ---
Patient is ready for discharge to [facility]. SW completed a 7000 in [place] system. Plan: d/c to [facility] at [place] under skilled level of care on a convalescent stay. Physicians will transport patient via wheelchair van. Cristal FONTAINE
[2023-12-22 11:42] VITALS: BP 152/65; PULSE 82; RESP 17; TEMP 36.8; O2SAT 95
--- NOTE | 2023-12-22 11:43 | CASEMGMT ---
Discharge Planning Discharge orders, signed med list, and transport time sent via [facility] to [place]. Physicians will transport patient by wheelchair at 12:30p. Nursing, SW, and patient updated. left for patients daughter, Donita. Enma Harrison, Discharge Planning Asst.
[2023-12-22 11:51] LABS: Bedside Glucose 245 mg/dL (74-106)
--- NOTE | 2023-12-22 12:11 | NURSING ---
Report called to [facility]. Talked to Radha TOWNSEND
--- NOTE | 2023-12-22 13:30 | PCM.DC.SUM ---
Providers Date of Admission: 12/15/23 Primary Care Physician: Dr. Santo Taveras MD Consultations 12/15/23 07:45 Consult: Gastroenterology Routine Consulting Provider: [facility] Reason for Consult: recurrent GI bleed EMERGENT Consult: No Notified: Yes Date Notified: 12/15/23 Time Notified: 07:48 Method of Notification: Text 12/17/23 10:04 Consult: Urology Routine Consulting Provider: Nitish Sood Reason for Consult: Urinary retention to establish outpatient follow-up EMERGENT Consult: No Notified: Yes Date Notified: 12/17/23 Time Notified: 10:06 Method of Notification: Verbal Reason For Visit: ABLA, UGIB Diagnosis Discharge Diagnosis (1) Pyloric channel ulcer: Status: Acute Code(s): K25.9 - Gastric ulcer, unspecified as acute or chronic, without hemorrhage or perforation (2) UGIB (upper gastrointestinal bleed): Status: Resolved Code(s): K92.2 - Gastrointestinal hemorrhage, unspecified (3) Acute blood loss anemia: Status: Acute Code(s): D62 - Acute posthemorrhagic anemia Medications at Discharge Home Medications apixaban 5 mg tablet (Eliquis) 5 mg PO BID a.fib 09/06/19 cyanocobalamin (vitamin B-12) 1,000 mcg tablet 1,000 mcg PO DAILY vitamin deficient 09/06/19 pravastatin 80 mg tablet 80 mg PO QHS cholesterol 09/06/19 pyridoxine (vitamin B6) 100 mg tablet 100 mg PO DAILY vitamin deficient 09/06/19 nitroglycerin 0.4 mg sublingual tablet 0.4 mg sublingual Q5-15M PRN chest pain #90 tabs 09/08/19 insulin glargine U-300 conc 300 unit/mL (1.5 mL) subcutaneous pen 20 unit subcut QHS diabetes 08/14/21 dulaglutide 4.5 mg/0.5 mL subcutaneous pen injector (Trulicity) 4.5 mg subcut MO 08/06/23 verapamil 300 mg capsule 24hr pellet CT,ext.release 300 mg PO QHS blood pressure 08/06/23 brimonidine 0.2 % eye drops 1 drp ophthalmic (eye) BID Glaucoma 12/11/23 calcium carbonate 600 mg-vitamin D3 5 mcg (200 unit) tablet (Calcium 600 + D(3)) 1 tab PO DAILY vitamin deficient 12/11/23 lisinopril 40 mg tablet 20 mg PO DAILY HIG BLOOD PRESSURE 12/11/23 pantoprazole 40 mg tablet,delayed release 40 mg PO BID 30 days #60 tabs 12/13/23 Hospital Course Operations None Procedures EGD Summary of Care Provided Minutes Spent on Discharge: 38 Hospital Course: Per HPI: MALORIE KIRK, is a 78 F who presented to [facility] ED on morning of 12/15/2023 with recurrent upper GI bleed. Patient was recently hospitalized at [facility] from 12/11 to 12/13 for an upper GI bleed with acute blood loss anemia. Gastroenterology followed, EGD 12/12 showed a duodenal ulcer that was treated. Patient's hemoglobin level remained stable on 12/13, discussed with GI and patient was okay for discharge home on p.o. PPI twice daily. Decision was made to restart patient's home Eliquis 5 mg twice daily that she was on for A-fib. Patient stated that she began having nausea with coffee-ground emesis about 6 to 8 hours prior to admission. She denied any bright red blood hematemesis. She did report melena, which had been present for her since her recent hospitalization, but she denied passing any bright red blood or maroon-colored stool. Patient was found to have hemoglobin of 6.6 in the ED, down from 9.3 on 12/13. Was also found to be tachycardic but was maintaining an adequate blood pressure. Hospitalist was contacted at that time for admission. Patient seen at bedside in the ED, daughter present. Patient was laying comfortably in bed, in no acute distress. Patient did appear fairly pale and fatigued. Patient stated she had not had any further episodes of coffee-ground emesis since arrival to the ED. She denied any lightheadedness or dizziness at rest. She denied any abdominal pain or discomfort. No other acute concerns at this time. Hospital Course: 1. Recurrent upper GI bleed with coffee-ground emesis, acute blood loss anemia Recent EGD on 12/[address] Ferrer showed a duodenal ulcer that was treated. Hemoglobin was stable at 9.3 on discharge on 12/13. Presume that recurrent GI bleed was due to resumption of home Eliquis. Presented with recurrent nausea/vomiting and coffee-ground emesis, hemoglobin 6.6 on 12/15. ? Admit under inpatient status to PCU. Gastroenterology consulted. N.p.o. for EGD. Continue PPI drip for now. Transfusing 2 units of packed blood cells on 12/15, repeat hemoglobin pending. Holding home Eliquis. 12/16/2023: Will need to transfuse 1 unit today with a hemoglobin of 6.8, CT of the abdomen and pelvis is pending to eval for bleeding and this abdominal pain 12/17/2023: Hemoglobin dropped again to 6.8, will repeat a unit of blood, no obvious signs of bleeding on the CTA of the abdomen pelvis yesterday though did show a dilated bladder and hydronephrosis. Continue with Avina and will discuss the case with gastroenterology 12/18/2023: Hemoglobin this morning is 8.5, yesterday's recheck after unit of blood was 8.7 from 6.8. 12/19/2023: Hemoglobin this morning is 8.0, will recheck this afternoon if stable can potentially discharge home 12/20/2023: Hemoglobin is stabilized will continue to monitor and restart Eliquis in a few days. In the meantime continue with PT/OT for debility and recommendations on possible placement 12/21/2023: PT and OT feel that rehab would be necessary, so she is now pending pre-CERT 12/22/2023: Uresis received pre-CERT today, discussed with her the plan for discharge expressed understanding the risk benefits going to the nursing and would like to go to the correction today. Her hemoglobin stabilized at 8.1 and I do recommend outpatient monitoring. Of note she did have fairly significant urinary retention so a Avina has remained in place until she follows up with urology as an outpatient 2. Paroxysmal atrial fibrillation ? Sinus tachycardia on admission secondary to GI bleed. On Eliquis for anticoagulation, holding in setting of GI bleed as noted above. Will need to discuss with gastroenterology prior to discharge on plan for anticoagulation. Holding home verapamil for now, restart when able. 12/16: Heart rate stable 12/22/2023:. She can resume Eliquis in 2 days 3. Mild leukocytosis?resolved ? WBC count 14.0 on admit. Suspect secondary to acute stress state, low concern for active infection. Follow-up a.m. CBC. 4. Type 2 diabetes mellitus with hyperglycemia ? BG 410 on admit. Home regimen of Lantus 20 units at night and Trulicity. Start Lantus 15 units at night with sliding-scale insulin with regular glucose checks while inpatient, adjust as needed. 5. Recent mechanical fall with right-sided rib pain ? Imaging on previous admission with no acute fractures or significant hematomas noted. PT/OT/case management followed during that admission, was okay for discharge home with no needs. Continue Tylenol as needed for pain. 6. Urinary retention ? Will consult urology ? Continue with Avina on discharge follow-up with him as an outpatient in a week after discharge Chronic medical conditions: ? History of CAD s/p stenting, hypertension, hyperlipidemia: Continue home statin, holding home lisinopril. ? History of breast carcinoma s/p lumpectomy Physical Exam Narrative General: Alert, Oriented x3, Cooperative, No apparent distress HEENT: Atraumatic, PERRLA, EOMI, Normocephalic Oral: Moist Mucosa Neck: Supple, No JVD Lungs: Diminished, Normal air movement, No rhonchi, No wheeze, No rales Cardiovascular: Regular rate, Regular Rhythm, Normal S1, Normal S2, No murmurs Abdomen: Soft, nontender, Non-Distended, No Hepato-splenomegaly Extremities: No edema, Capillary Refill Less than 3 Seconds Skin: No rashes, No breakdown, pallor Musculoskeletal: No Tenderness to Palpation of Joints or Extremities Neurological: No focal neurological deficits, Motor Exam 5/5 strength throughout, Sensory exam intact to light touch and pain Psych/Mental Status: Normal Affect, Appropriate Weight / BMI Weight Weight: 137 lb 9.095 oz Body Mass Index (BMI) 23.6 ABG / Lab / Microbiology Data 12/21/23 06:05 12/21/23 06:05 Laboratory: Laboratory Results - last 24 hr 12/20/23 20:47: POC Glucose 156 H 12/20/23 20:48: POC Glucose 152 H 12/21/23 17:05: POC Glucose 153 H 12/21/23 21:40: POC Glucose 138 H 12/22/23 06:11: POC Glucose 77 12/22/23 11:27: POC Glucose 245 H Meaningful Use Info Meaningful Use Diagnoses (Choose all that apply): None applicable Discharge Plan Admission Admit Date/Time: 12/15/23 07:17 Attending Provider: Gomez Johansen Primary Care Provider: Santo Taveras Consulting Providers: Vincent Schwab; Nitish Sood Discharge Orders/Prescriptions Prescriptions: Continued nitroglycerin 0.4 mg tablet, sublingual 0.4 mg sublingual Q5-15M PRN (Reason: chest pain) Qty: 90 6RF pravastatin 80 mg tablet 80 mg PO QHS cyanocobalamin (vitamin B-12) 1,000 mcg tablet 1,000 mcg PO DAILY pyridoxine (vitamin B6) 100 mg tablet 100 mg PO DAILY verapamil 300 mg capsule, [address] 300 mg PO QHS Trulicity 4.5 mg/0.5 mL pen injector 4.5 mg subcut MO Patient Comments: INJECT 4.5 MG SUBCUTANEOUSLY ONCE PER WEEK ON THURSDAY insulin glargine U-300 conc 300 unit/mL (1.5 mL) insulin pen 20 unit SC QHS brimonidine 0.2 % drops 1 drp ophthalmic (eye) BID Patient Comments: INSTILL 1 DROP INTO EACH EYE TWICE DAILY calcium carbonate-vitamin D3 [Calcium 600 + D(3)] 600 mg-5 mcg (200 unit) tablet 1 tab PO DAILY lisinopril 40 mg tablet 20 mg PO DAILY pantoprazole 40 mg Tablet,Delayed Release (Dr/Ec) 40 mg PO BID 30 Days Qty: 60 0RF Held Eliquis 5 mg tablet 5 mg PO BID Hold Instructions: Resume on 12/24/23. Referrals / Follow Up: Santo Taveras MD [Primary Care Provider] - Disposition Disposition (needs filled in before D/C Order can be placed): Custodial Facility Charges/Coding Visit Charges Inpatient E&M: 44164 Disch Hosp >30min
[2023-12-22 17:31] LABS: Bedside Glucose 208 mg/dL (74-106)
== END 2023-12-22 12:37 | disposition skilled nursing facility (03) | DRG 378 ==
LOC: ED 06:52 → PCU 07:28
PROVIDERS: Hospitalist; Internal Medicine Gastroenterology; Admitting Provider Internal Medicine; Emergency Provider Emergency Medicine; PCP Family Medicine; Visit Provider Family Medicine
PROC: 0DJ08ZZ Inspection of Upper Intestinal Tract, Via Natural or Artificial Opening Endoscopic (ICD-10-PCS; CPT 43235; principal; 2023-12-15 16:00)
DX: K25.4 Chronic or unspecified gastric ulcer with hemorrhage (principal); D62 Acute posthemorrhagic anemia; N13.30 Unspecified hydronephrosis; E11.65 Type 2 diabetes mellitus with hyperglycemia; I48.0 Paroxysmal atrial fibrillation; I10 Essential (primary) hypertension; I25.10 Atherosclerotic heart disease of native coronary artery without angina pectoris; E78.00 Pure hypercholesterolemia, unspecified; K52.9 Noninfective gastroenteritis and colitis, unspecified; R33.9 Retention of urine, unspecified; R53.81 Other malaise; Z79.01 Long term (current) use of 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; Z79.85 Long-term (current) use of injectable non-insulin antidiabetic drugs; Z79.899 Other long term (current) drug therapy; Z95.5 Presence of coronary angioplasty implant and graft
CPT/HCPCS: 36415; 74174; 80048; 82962; 85014; 85018; 85025; 85027; 86644; 86850; 86900; 86901; 86920; 86922; 97162; 97166; 97530; 97535; 97802; 99284; J7040; J7120; P9016; P9040; Q9967; A4216; J2405; J3490

== ENCOUNTER → 2024-01-18 | Outpatient (CLI) | payer MEDICARE, SELFPAY ==
[2024-01-18 09:49] LABS: Hematocrit 34.1 % (37-47); Hemoglobin 10.5 g/dL (12.0-15.0)
== END | disposition home or self-care (01) ==
LOC: LAB 09:00
PROVIDERS: PCP Family Medicine; Referring Provider Internal Medicine Gastroenterology; Visit Provider Internal Medicine Gastroenterology
DX: K92.2 Gastrointestinal hemorrhage, unspecified (principal)
CPT/HCPCS: 36415; 85014; 85018

== ENCOUNTER 2024-02-04 05:20 | Day surgery (SDC) | payer MEDICARE, SELFPAY ==
[2024-02-04 05:43] VITALS: BP 195/78; PULSE 77; RESP 16; TEMP 36.8; O2SAT 99; BMI 23.4
[2024-02-04 05:59] VITALS: BP 183/93; PULSE 77
[2024-02-04] MEDS: Lactated Ringers 1,000 ML 15 ML IV (06:02)
--- NOTE | 2024-02-04 06:30 | IMM_PTH ---
PATIENT: MALORIE KIRK LOC: EN U#:[id number] AGE/SX: 78/F ROOM: RE02/04/[address]: Dr. Cullen Ferrer DO : 1945 BED: DIS: 02/04/2024 SPEC #: [id number] RECD: 02/04/24 13:56 STATUS: ALBARO REKandis #: [id number] ANNIE: 02/04/24 06:[address]: Cullen Ferrer DEPT: IMMUNOHISTOCHEMISTRY RECD BY: Cordell Alvarez ENTERED: 02/04/24 13:57 SP TYPE: IMMUNO OTHR DR: Dr. Santo Taveras MD Tissues: A - Stomach, NOS Procedures: H Pylori (initial) PHYSICIAN & INSTITUTION [place] [id number] SPECIMEN INFORMATION: Tissue Source: A - Gastric ulcer biopsy Clinical Info: Gastrointestinal bleeding, Gastric ulcer Specimen Number: [id number] CPT code: 47041 METHODOLOGY: Deparaffinized sections of prefer/formalin-fixed tissue or PAP/DQ stained slides are incubated with monoclonal/polyclonal antibodies/oligonucleotide probes. Localization is made via biotin free immunoperoxidase method. Appropriate controls are performed and reacted as expected. Results on target cell population are indicated in the following table: RESULTS: ANTIBODY / CLONE RESULT Block A H Pylori (polyclonal) negative These tests were developed and their performance characteristics determined by [facility]. They may not have been cleared or approved by the U.S. Food and Drug Administration. The FDA has determined that such clearance or approval is not necessary. The above immunohistochemical/dualISH markers are ordered and reviewed by the Pathologist. INTERPRETATION: A. Gastric ulcer, biopsy: Negative for Helicobacter pylori organisms. SOMMER/ 02/05/24
--- NOTE | 2024-02-04 06:30 | GASB_PTH ---
PATIENT: MALORIE KIRK LOC: EN U#:[id number] AGE/SX: 78/F ROOM: RE02/04/[address]: Dr. Cullen Ferrer DO : 1945 BED: DIS: 02/04/2024 SPEC #: [id number] RECD: 02/04/24 09:31 STATUS: ALBARO HENRRY #: [id number] ANNIE: 02/04/24 06:[address]: Cullen Ferrer DEPT: SURGICAL PATHOLOGY RECD BY: Lacy Medrano ENTERED: 02/04/24 12:09 SP TYPE: Gastric Bx OTHR DR: Dr. Santo Taveras MD Tissues: Gastric mucous membrane Procedures: Special Stain Group II Surgery Specimen Level IV Alcian Blue/PAS (control) HEADER OPERATION: EGD, biopsy PRE-OP DIAGNOSIS: Gastrointestinal bleeding, Gastric ulcer TISSUE SUBMITTED: A- Gastric ulcer biopsy, B- Distal esophagus biopsy MICROSCOPIC DIAGNOSIS A. Gastric ulcer, biopsy: Moderate gastritis. See microscopic description and comment. B. Distal esophagus, biopsy: Fragments of gastroesophageal mucosa with moderate chronic inflammation and changes consistent with gastroesophageal reflux disease. Intestinal metaplasia (goblet cell metaplasia) not identified. See comment. SOMMER/ 02/05/24 COMMENT A. The results of immunohistochemistry for Helicobacter pylori will be reported separately ([id number]). B. Alcian blue/PAS stain with matched control is used in the evaluation of the specimen. MICROSCOPIC DESCRIPTION Slides are reviewed. A. The specimen shows fragments of gastric mucosa with chronic inflammatory cell infiltrates in the lamina propria consisting of lymphocytes and plasma cells, consistent with moderate chronic gastritis. GROSS DESCRIPTION A. Received in fixative is one container labeled with the patient's name and designated Gastric ulcer biopsy. The specimen consists of two irregular fragments of light sylvester soft tissue that in aggregate measure 0.6 x 0.3 x 0.1 cm. The specimen is totally submitted in one cassette. B. Received in fixative is one container labeled with the patient's name and designated Distal esophagus biopsy. The specimen consists of two irregular fragments of light sylvester soft tissue that in aggregate measure 0.6 x 0.3 x 0.1 cm. The specimen is totally submitted in one cassette. SOMMER/ 02/04/24 TC:3 CPT: 05248,58298w0
[2024-02-04 06:44] LABS: Bedside Glucose 109 mg/dL (74-106)
--- NOTE | 2024-02-04 06:47 | PCM.HP.BLA ---
History and Physical Date of Admission: 02/04/24 MALORIE KIRK, is a 78 F who presents to the office today for *[facility] hospitalization 12.11.23-12.13.23 for management of UGIB with anemia with use of Eliquis for A-fib. ? CT abd/pel IV only 12.11.23 fluid filled small bowel loops, ?enteritis; focal stranding of RLQ from cecum. ? EGD 12.12.23 oozing gastric ulcer, epinephrine/hemospray x5, heater probe; bleeding duodenal AVM. No specimens [facility] hospitalization 12.15.23-12.22.23 for management of GIB with use of Eliquis for A-fib. ? EGD 12.15.23 one oozing gastric ulcer, epinephrine, heater probe, one clip placed. No specimens ? CTA 12.16.23 metallic foreign body in stomach. No sign of GIB. OV 01.18.24 reports she is doing well at this time. Denies difficulty with GIB. ROS Const Constitutional: No anorexia, fatigue, fever(s), weight change or sleep problems Eyes Eyes: No change in vision ENT ENT: No abnormal hearing, difficulty swallowing, mouth lesions, tongue swelling or throat swelling Resp Respiratory: No cough or shortness of breath Cardio Cardiology: No chest pain at rest, chest pain with exertion, shortness of breath or dyspnea on exertion Gastro GI: No difficulty swallowing Genitourinary-Female: No difficulty urinating or burning urination Musc Musculoskeletal: No joint pain, joint swelling, muscle weakness or decreased muscle mass Skin Skin: No hair loss in leg, yellowing of the eye, itchy eyes, rash, skin ulcer or skin swelling Neuro Neurology: No abnormal hearing, abnormal movements, confusion, unsteady gait/balance or memory loss Psych Psychiatric: No anxiety, No confusion and No memory loss Endo Endocrine: No fatigue or weight change Aller/Imm Allergy/Immunologic: No itchy eyes, throat swelling or tongue swelling Daniel/Lymp Hematologic/Lymphatic: No easy bleeding, easy bruising or enlarged lymph nodes Exam Const General: cooperative and comfortable Nutritional Appearance: average body habitus and well nourished [facility] Head: normal to inspection Ears: hearing grossly normal bilaterally Nose: external nose normal Face and sinus: normal facial exam Mouth: oral mucosae normal Throat: posterior oropharynx normal Eyes General: appearance normal, both eyes and all related structures Neck Neck: normal visual inspection Chest Chest palpation & inspection: normal inspection of the chest and normal palpation of entire chest wall Resp Effort & Inspection: normal respiratory effort Auscultation: Bilateral: Clear to Auscultation Cardio Palpation: normal PMI Rate: regular rate Rhythm: regular rhythm GI Inspection: normal to inspection Auscultation: normal bowel sounds Percussion: normal to percussion Palpation: no hepatosplenomegaly Skin General: no rashes or lesions noted Neuro General: patient alert Extrem General: normal to inspection Psych Affect: normal affect Quality Reporting Tobacco Screening ([facility] 138) Smoking Status: Never smoker Assessment and Plan Assessment and Plan (1) GIB (gastrointestinal bleeding): Status: Resolved (2) Gastric ulcer: Status: Chronic Plan: 78 F who presented to [facility] ED on morning of 12/15/2023 with recurrent upper GI bleed. Patient was recently hospitalized at [facility] from 12/11 to 12/13 for an upper GI bleed with acute blood loss anemia. -EGD 12/12 showed a duodenal ulcer that was treated. Patient's hemoglobin level remained stable on 12/13 -Decision was made to restart patient's home Eliquis 5 mg twice daily that she was on for A-fib. Patient stated that she began having nausea with coffee-ground emesis about 6 to 8 hours prior to admission. She denied any bright red blood hematemesis. - She did report melena, which had been present for her since her recent hospitalization, but she denied passing any bright red blood or maroon-colored stool. - She was sent back to the ED and was found to have hemoglobin of 6.6 in the ED, down from 9.3 on 12/13. Hospital Course: 1. Recurrent upper GI bleed with coffee-ground emesis, acute blood loss anemia -EGD on 12/[address] Ferrer showed a duodenal ulcer that was treated. Hemoglobin was stable at 9.3 on discharge on 12/13. Presume that recurrent GI bleed was due to resumption of home Eliquis. Presented with recurrent nausea/vomiting and coffee-ground emesis, hemoglobin 6.6 on 12/15. ? Hemoglobin dropped again to 6.8, will repeat a unit of blood, no obvious signs of bleeding on the CTA of the abdomen pelvis yesterday though did show a dilated bladder and hydronephrosis. - Repeat EGD had shown that the previous gastric ulcer had opened back up and was treated with clipping and cauterization -She has been on iron therapy and had her hemoglobin checked about a week ago. She does not know what her hemoglobin is at this time. She is on PPI therapy. She remains on Eliquis 5 mg twice a day. Recommendation: Repeat EGD to make sure that the ulcer is completely healed -Recheck an H&H today. -After EGD will determine how long she needs to be on PPI therapy I have examined the patient and the H&P has been reviewed. There are no clinical changes since date of exam.
[2024-02-04 07:05] VITALS: BP 149/70; BP 195/78; PULSE 85; RESP 16; TEMP 36.4; O2SAT 97
--- NOTE | 2024-02-04 07:07 | OP.CCLET_ITS ---
02/04/2024 Santo Taveras Re : Upper GI endoscopy procedure for Kellie Rebolledo Darcy This procedure was performed on January. My impressions and recommendations are as follows: Impressions : - Normal upper third of esophagus and middle third of esophagus. - Z-line irregular, 39 cm from the incisors. Biopsied. - Non-bleeding gastric ulcer with no stigmata of bleeding. Biopsied. - No gross lesions in the first portion of the duodenum. Recommendations : - Discharge patient to home. - Resume previous diet. - Continue present medications. - Await pathology results. My findings are described in the full procedure note, which is enclosed. If I can be of further assistance, please feel free to contact me at . Sincerely, Cullen Ferrer, 02/04/2024 7:06:07 AM This report has been signed electronically.
--- NOTE | 2024-02-04 07:07 | OP.EGD_ITS ---
Patient Name: Kellie Dozier Procedure Date: 02/04/2024 6:21 AM Date of : 1945 Age: 78 Procedure: Upper GI endoscopy Indications: Acute post hemorrhagic anemia, Iron deficiency anemia, Chronic peptic ulcer Providers: Cullen Ferrer DO Referring MD: Cullen Ferrer DO Medicines: Monitored Anesthesia Care Patient Profile: This is a 78 year old female. Refer to note in patient chart for documentation of history and physical. Patient has symptoms of chronic epigastric abdominal pain. Complications: No immediate complications. Procedure: Pre-Anesthesia Assessment: - Prior to the procedure, a History and Physical was performed, and patient medications and allergies were reviewed. The patient is competent. The risks and benefits of the procedure and the sedation options and risks were discussed with the patient. All questions were answered and informed consent was obtained. Patient identification and proposed procedure were verified by the physician in the pre-procedure area. Mental Status Examination: alert and oriented. Airway Examination: normal oropharyngeal airway and neck mobility. Respiratory Examination: clear to auscultation. CV Examination: normal. Prophylactic Antibiotics: The patient does not require prophylactic antibiotics. Prior Anticoagulants: The patient has taken no anticoagulant or antiplatelet agents. ASA Grade Assessment: III - A patient with severe systemic disease. After reviewing the risks and benefits, the patient was deemed in satisfactory condition to undergo the procedure. The anesthesia plan was to use monitored anesthesia care (MAC). Immediately prior to administration of medications, the patient was re-assessed for adequacy to receive sedatives. The heart rate, respiratory rate, oxygen saturations, blood pressure, adequacy of pulmonary ventilation, and response to care were monitored throughout the procedure. The physical status of the patient was re-assessed after the procedure. After obtaining informed consent, the endoscope was passed under direct vision. Throughout the procedure, the patient's blood pressure, pulse, and oxygen saturations were monitored continuously. The gastroscope was introduced through the mouth, and advanced to the second part of duodenum. The upper GI endoscopy was accomplished without difficulty. The patient tolerated the procedure well. Scope In: 6:53:01 AM Scope Out: 6:57:59 AM Total Procedure Duration Time 0 hours 4 minutes 58 seconds Findings: The upper third of the esophagus and middle third of the esophagus were normal. The Z-line was irregular and was found 39 cm from the incisors. Biopsies were taken with a cold forceps for histology. Verification of patient identification for the specimen was done. Estimated blood loss was minimal. One non-bleeding linear gastric ulcer with no stigmata of bleeding was found in the cardia. The lesion was 6 mm in largest dimension. Biopsies were taken with a cold forceps for histology. Verification of patient identification for the specimen was done. Estimated blood loss was minimal. No gross lesions were noted in the first portion of the duodenum. Impression: - Normal upper third of esophagus and middle third of esophagus. - Z-line irregular, 39 cm from the incisors. Biopsied. - Non-bleeding gastric ulcer with no stigmata of bleeding. Biopsied. - No gross lesions in the first portion of the duodenum. Recommendation: - Discharge patient to home. - Resume previous diet. - Continue present medications. - Await pathology results. Procedure Code(s): --- Professional --- 32342, Esophagogastroduodenoscopy, flexible, transoral; with biopsy, single or multiple CPT copyright 2021 [employer]. All rights reserved. The codes documented in this report are preliminary and upon freelance patternmaker review may be revised to meet current compliance requirements. Cullen Ferrer DO 02/04/2024 7:06:07 AM This report has been signed electronically. Number of Addenda: 0 Note Initiated On: 02/04/2024 6:21 AM
[2024-02-04 07:10] VITALS: BP 107/59; BP 195/78; PULSE 79; RESP 16; O2SAT 94
[2024-02-04 07:15] VITALS: BP 110/58; BP 195/78; PULSE 75; RESP 16; TEMP 36.4; O2SAT 94
[2024-02-04 07:39] VITALS: BP 195/78
== END 2024-02-04 07:48 | disposition home or self-care (01) ==
LOC: EN 05:20 → AC 05:21
PROVIDERS: PCP Family Medicine; Referring Provider Family Medicine; Visit Provider Internal Medicine Gastroenterology
PROC: 0DJ08ZZ Inspection of Upper Intestinal Tract, Via Natural or Artificial Opening Endoscopic (ICD-10-PCS; CPT 43235; principal; 2024-02-04 06:25)
DX: K29.70 Gastritis, unspecified, without bleeding (principal); I48.91 Unspecified atrial fibrillation; Z79.4 Long term (current) use of insulin; E11.9 Type 2 diabetes mellitus without complications; D62 Acute posthemorrhagic anemia; K92.2 Gastrointestinal hemorrhage, unspecified; D50.9 Iron deficiency anemia, unspecified; K25.9 Gastric ulcer, unspecified as acute or chronic, without hemorrhage or perforation; Z79.01 Long term (current) use of 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; Z79.85 Long-term (current) use of injectable non-insulin antidiabetic drugs; K21.9 Gastro-esophageal reflux disease without esophagitis; E78.00 Pure hypercholesterolemia, unspecified; I10 Essential (primary) hypertension; I25.10 Atherosclerotic heart disease of native coronary artery without angina pectoris
CPT/HCPCS: 43239; 82962; 88305; 88313; 88342; J7120; J2405

== ENCOUNTER → 2024-07-13 | Outpatient (CLI) | payer MEDICARE, SELFPAY ==
--- NOTE | 2024-07-13 09:51 | ECHOD_ITS ---
Reason For Study: CAD/ASHD Procedure This was a 2D Doppler, Color Flow transthoracic echocardiogram. Exam performed in department. Left Ventricle Normal LV size. Left ventricular systolic function is normal. The left ventricular ejection fraction is 55 %. Stage 2 diastolic dysfunction. No regional wall motion abnormalities noted. Right Ventricle Normal RV size. Normal systolic function. Atria Normal left atrium. Normal right atrium. Mitral Valve Normal mitral valve. Mild (1+) mitral valve insufficiency. Tricuspid Valve Normal tricuspid valve. Mild tricuspid valve insufficiency. Aortic Valve Trisinus/trileaflet aortic valve. Pulmonic Valve Normal pulmonic valve. Great Vessels Normal aortic root. The pulmonary artery is normal size. Inferior vena cava collapse with respiration. Pericardium/Pleural No pericardial effusion. MMode/2D Measurements & Calculations LVIDd: 5.2 cm IVSd: 0.98 cm Ao root diam: 2.7 cm LVIDs: 3.3 cm LVPWd: 0.89 cm RVDd: 2.8 cm FS: 36.1 % LAV(MOD-bp): 76.9 ml LVAd ap4: 26.3 cm2 LVAd ap2: 29.6 cm2 LAV(MOD-bp) Indexed: 45.9 ml/m2 LVLd ap4: 7.4 cm LVLd ap2: 7.5 cm LAV(MOD-sp2): 83.6 ml EDV(MOD-sp4): 77.5 ml EDV(MOD-sp2): 95.9 ml LAV(MOD-sp4): 62.7 ml EDV(sp4-el): 79.7 ml EDV(sp2-el): 98.9 ml LVAs ap4: 16.6 cm2 LVAs ap2: 17.3 cm2 LVLs ap4: 6.6 cm LVLs ap2: 6.9 cm ESV(MOD-sp4): 36.2 ml ESV(MOD-sp2): 38.7 ml ESV(sp4-el): 35.7 ml ESV(sp2-el): 37.1 ml EF(MOD-sp4): 53.3 % EF(MOD-sp2): 59.7 % EF(sp4-el): 55.2 % SV(MOD-sp4): 41.3 ml SV(MOD-sp2): 57.3 ml SV(sp4-el): 44.0 ml LA dimension(2D): 4.2 cm TAPSE: 1.7 cm LA A4 area: 19.7 cm2 Time Measurements MV dec time: 0.17 sec Doppler Measurements & Calculations MV E max armani: 147.1 cm/sec Lat Peak E' Armani: 9.8 cm/sec Med Peak E' Armani: 6.9 cm/sec MV A max armani: 74.1 cm/sec E/E' lat: 14.9 E/E' med: 21.2 MV E/A: 2.0 MV V2 max: 160.1 cm/sec MV P1/2t max armani: 158.8 cm/sec Ao V2 max: 121.6 cm/sec MV max P.2 mmHg MV P1/2t: 64.5 msec Ao max P.9 mmHg MV V2 mean: 83.2 cm/sec MV dec slope: 720.9 cm/sec2 Ao V2 mean: 87.1 cm/sec MV mean P.2 mmHg Ao mean P.4 mmHg MV V2 VTI: 44.3 cm MVA(P1/2t): 3.4 cm2 Ao V2 VTI: 30.4 cm AV (velocity ratio): 0.71 LV V1 max: 86.5 cm/sec MR max armani: 626.7 cm/sec PA V2 max: 90.2 cm/sec LV V1 max P.0 mmHg MR max P.1 mmHg PA V2 mean: 66.3 cm/sec LV V1 mean P.7 mmHg MR mean armani: 524.3 cm/sec LV V1 mean: 62.5 cm/sec MR mean P.9 mmHg LV V1 VTI: 21.6 cm MR VTI: 242.7 cm TR max armani: 236.8 cm/sec TR max P.4 mmHg ECHO/Echo Complete Interpretation Summary Normal LV size. Left ventricular systolic function is normal. The left ventricular ejection fraction is 55 %. Stage 2 diastolic dysfunction. Ordering Physician: Rajeev Kelley Referring Physician: Santo Taveras Performed By: Darrian LOCKE RDCS, Aleida and Student
== END | disposition home or self-care (01) ==
LOC: CVS 09:46
PROVIDERS: PCP Family Medicine; Referring Provider Internal Medicine Cardiovascular Disease; Visit Provider Internal Medicine Cardiovascular Disease
DX: I25.10 Atherosclerotic heart disease of native coronary artery without angina pectoris (principal); I47.10 Supraventricular tachycardia, unspecified; I25.2 Old myocardial infarction; Z95.5 Presence of coronary angioplasty implant and graft
CPT/HCPCS: 93306

== ENCOUNTER 2025-10-08 22:02 | Inpatient (IN) | payer MEDICARE, SELFPAY ==
[2025-10-08 22:03] VITALS: BP 162/110; PULSE 97; RESP 18; TEMP 36.9; O2SAT 99; BMI 26.8
[2025-10-08 22:23] VITALS: BP 143/58; BP 151/61; BP 96/59; PULSE 102; PULSE 85; PULSE 90
--- NOTE | 2025-10-08 22:24 | EDS_ITS ---
HPI HPI - GI History of Present Illness Chief Complaint: GI Bleed Detail of Chief Complaint: Rectal bleeding Informant: patient Narrative Narrative: Patient presents to the emergency department complaint of rectal bleeding that started this evening. Patient tells me that 6 days ago she had a large polyp resected from her colon at [facility]. She had been doing well until tonight when she was trying to have a bowel movement and passed a small amount of stool but also bright red blood. She denies abdominal pain. Currently not anticoagulated. She also has history of bleeding ulcer. She d enies feeling lightheaded or dizzy. No other significant complaints. [facility] Medical History (Reviewed 10/04/24 @ 13:21 by Skyler Bradley DIGITAL ASSOCIATE MEDIA DIRECTOR, DIGITAL ASSOCIATE MEDIA DIRECTOR-C) Anemia History of diverticulitis Non-smoker History of stress test Cardiology follow-up encounter On apixaban therapy Old myocardial infarction Liver mass 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 tachycardia Pure hypercholesterolemia Malignant neoplasm of right breast GERD (gastroesophageal reflux disease) Paroxysmal atrial fibrillation Type 2 diabetes mellitus Essential hypertension Presence of stent in coronary artery (~05/23/09) Atherosclerotic heart disease of kashia coronary artery without angina pectoris Home Medications ?Medication ?Instructions ?Recorded ?Last Taken ?Type cyanocobalamin (vitamin B-12) 1,000 mcg PO DAILY vitam in 09/06/19 12/14/23 History 1,000 mcg tablet deficient pravastatin 80 mg tablet 80 mg PO QHS cholesterol 03/2012/14/23 History pyridoxine (vitamin B6) 100 mg 100 mg PO DAILY vitamin deficient 09/06/19 12/14/23 History tablet nitroglycerin 0.4 mg sublingual 0.4 mg sublingual Q5-1 5M PRN chest 09/08/19 Unknown Rx tablet pain #90 tabs verapamil 300 mg capsule 24hr 300 mg PO QHS blood pres sure 08/06/23 12/14/[address],ext.release brimonidine 0.2 % eye drops 1 drp ophthalmic (eye) BID Glaucoma 12/11/23 12/14/23 History calcium 600 mg (as 1 tab PO DAILY vitamin defic ient 12/11/23 12/14/23 History carbonate)-vitamin D3 5 mcg (200 unit) tablet (Calcium 600 + D(3)) glipizide 2.5 mg tablet 2.5 mg PO BID 10/04/24 Unkno wn History insulin glargine 100 unit/mL (3 34 unit subcut QDAY Unknown History mL) subcutaneous pen (Lantus Solostar U-100 Insulin) losartan 100 mg tablet 100 mg PO DAILY 10/08/25 Unk nown History meclizine 12.5 mg tablet 12.5 mg PO Q6H dizziness 05/26 Unknown History ondansetron 4 mg disintegrating 4 mg PO Q6H nausea 05/26 Unknown History tablet sitagliptin phosphate 25 mg tablet 25 mg PO DAILY 05/26 Unknown History (Reilly) Allergy/AdvReac Type Severity Reaction Status Date / Time alendronate sodium (From AdvReac Severe myalgias Verified 10/08/25 22:09 Fosamax) amoxicillin (Amoxicillin) AdvReac Nausea/Vom/ Verified 10/08/25 22:09 Diarrhea metformin AdvReac Nausea/Vom/ Verified 10/08/25 22:09 Diarrhea shellfish derived AdvReac Nausea/Vom/ Verified 10/08/25 22:09 Diarrhea Family History Mother Hypertension Diabetes CVA (cerebral vascular accident) CAD (coronary artery disease) Father History of DVT (deep vein thrombosis) Surgical History History of eyelid surgery (05/28/23) History of total abdominal hysterectomy S/P lumpectomy, right breast Presence of coronary angioplasty implant and graft (~05/23/09) Social History household members: family housing: house Smoking Status: Never smoker alcohol intake: never substance use type: does not use caffeine: Yes Type: coffee Number of servings: 2 ROS ROS ED Review of Systems ROS Unobtainable: other Constitutional Constitutional ED: Reports lethargy; Denies chills, fever(s), sweats or weight loss Eyes Eyes: Denies blurry vision, change in vision or diplopia ENT ENT ED: Denies rhinorrhea or sore throat Cardiovascular Cardiovascular: Denies chest pain, orthopnea or racing heartbeat Respiratory/Chest Respiratory/Chest: Denies cough, dyspnea, dyspnea on exertion, orthopnea or sputum Gastrointestinal Gastrointestinal: Reports other Details: Rectal bleeding ; Denies abdominal pain, diarrhea, nausea or vomiting Genitourinary Genitourinary ED: Denies dysuria, hematuria or urinary frequency Musculoskeletal Musculoskeletal: Denies arthralgias, back pain, myalgias or neck pain Integumentary Denies abscess, Abrasions or rash Neurologic Neurologic: Denies headache(s) or weakness Psychiatric Psychiatric: Denies anxiety, depression or suicidal thoughts Endocrine Endocrinology: Denies polydipsia, polyphagia or polyuria Hematologic/Lymphatic Hematologic/Lymphatic: Denies easy bleeding, easy bruising or lymphadenopathy Allergic/Immunologic Allergic/Immunologic ED: Denies mouth swelling, tongue swelling or urticaria EXAM Physical Exam Const Vital Signs: 10/08/25 22:03 10/08/25 22:23 Temperature 98.4 F Temperature Source Temporal Pulse Rate 97 Pulse Rate [Lying] 85 Pulse Rate [Sitting (for 1 minute prior to obtaining)] 90 Pulse Rate [Standing (for 1 minute prior to obtaining)] 102 H Respiratory Rate 18 Blood Pressure 162/110 H Blood Pressure [Lying] 151/61 H Blood Pressure [Sitting (for 1 minute prior to obtaining)] 143/58 H Blood Pressure [Standing (for 1 minute prior to obtaining)] 96/59 L Blood Pressure Mean 127 Blood Pressure Mean [Lying] 91 Blood Pressure Mean [Sitting (for 1 minute prior to obtaining)] 86 Blood Pressure Mean [Standing (for 1 minute prior to obtaining)] 71 Pulse Ox 99 Oxygen Delivery Method Room Air Positive well nourished and well developed General Appearance ED: well developed and NAD HEENT Reports TM's clear and moist mucous membranes normocephalic and atraumatic; Negative for trauma or tenderness Tympanic Membrane ED: Yes TM's clear Eyes PERRL and EOMs intact bilaterally General Eye ED: Negative for pale conjunctiva or scleral icterus Neck no lymphadenopathy, supple and no JVD General: Negative for tenderness Chest Wall inspection of chest normal and palpation of chest normal Chest: Negative for tenderness Resp normal respiratory effort and clear to auscultation bilaterally Effort and Inspection: Negative for respiratory distress or pain with movement Auscultation: Negative for rhonchi, wheezes or diminished lung sounds Cardio regular rate, regular rhythm, S1 normal heart sound, S2 normal heart sound and no murmurs Peripheral Pulses: pulses 2+ throughout GI normal to inspection, nondistended, normoactive bowel sounds, soft to palpation, non-tender, non-distended and no masses GI Narrative: Rectal exam performed. She had some hemorrhoids that are nonthrombosed or tender. No fissures noted. On digital rectal exam she had maroon-colored stool grossly present. No masses palpated in the rectal vault. Back/Spine no CVA tenderness and no thoracic nor lumbar tenderness Extremity normal to inspection General Extremety ED: Negative for edema General Extremity: Negative for edema Neuro oriented x3, CN's II-XII intact bilaterally, no sensory deficits noted and gait normal Sensorium / Orientation: awake, alert, oriented to person, oriented to place and oriented to time Motor Exam: strength 5/5 throughout and strength abnormal Psych mental status grossly normal Skin no rashes or lesions noted and no wounds MDM MDM MDM Narrative Medical decision making narrative: Patient presents with bright red blood per rectum 6 days after having polypectomy at [facility]. Currently patient not anticoagulated. Vital stable on arrival. IV line established. CBC with differential obtained showed a white count of 14.4 with hemoglobin 10.6 and platelet count 246. Lactate elevated at 2.6. BUN 24 and creatinine 0.92. Orthostatic vital signs performed were positive. Discussed case with svp research and strategic analysis on-call Dr. Ferrer. We will admit patient to hospital for f luids and monitoring. Discussed case with Dr. Vasquez who is the hospitalist on- call tonight and he will evaluate patient for admission. Suspect likely source of bleeding from polypectomy site. Lab Data Attestation: I reviewed the patient's lab results. Labs: Laboratory Results - last 24 hr 10/08/25 22:20 WBC 14.4 H RBC 3.50 L Hgb 10.6 L Hct 33.1 L MCV 94.6 MCH 30.3 MCHC 32.0 RDW Std Deviation 47.6 H RDW Coeff of Emperatriz 13.7 Plt Count 246 MPV 10.6 Immature Gran % (Auto) 1.300 H Neut % (Auto) 83.7 H Lymph % (Auto) 7.8 L [place] % (Auto) 6.3 Eos % (Auto) 0.3 Baso % (Auto) 0.6 Absolute Neuts (auto) 12.1 H Absolute Lymphs (auto) 1.12 Nucleated RBC % 0 Sodium 140 Potassium 4.5 Chloride 104 Carbon Dioxide 24.6 Anion Gap 12 BUN 24 H Creatinine 0.92 Estim Creat Clear Calc 46.34 L Est GFR (MDRD) Non-Af 62 BUN/Creatinine Ratio 26.4 H Glucose 373 H Lactic Acid 2.6 H* Calcium 9.1 Blood Type A POSITIVE Antibody Screen NEGATIVE Discharge Plan Dx/Rx/DC Orders Clinical Impression: Acute lower GI bleeding, Orthostatic hypotension Disposition Disposition: Acute Care Hospital [facility]
[2025-10-08 22:32] LABS: Hematocrit 33.1 % (37-47); Hemoglobin 10.6 g/dL (12.0-15.0); Immature Granulocytes Count 0.190 X10^3/uL (0.0-0.0); Mean Corp Hgb Conc 32.0 g/dL (32-36); Mean Corpuscular Volume 94.6 fL (81-99); Mean Platelet Vol. 10.6 fl (6.2-12.0); NRBC Flagged by Analyzer 0 % (0-5); Platelet Count 246 K/mm3 (150-450); RBC Distribution Width CV 13.7 % (11.6-14.6); RBC Distribution Width SD 47.6 fl (35.1-43.9); Red Blood Count 3.50 M/mm3 (4.2-5.4); White Blood Count 14.4 K/mm3 (4.4-11.0)
--- OUTSIDE RECORDS SUMMARY | 2025-10-08 22:36 | XMS RPT_ITS | CCD ---
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 Name Role Phone DANIEL MARCELO E Unavailable Unavailable DAVIAN, DANIEL E Unavailable Unavailable POLITAY LACY Unavailable Unavail able DAVIAN DANIEL Unavailable Unavailable DAVIAN, DANIEL Unavailable Unavailable Kate Santo Unavailable Unavailable DAVIAN, DANIEL Unavailable Unavailable JING MARCELOH Unavailable Unavailable Kate Santo Unavailable Unavailable Santo Love Unavailable Unavailable IMCA Unavailable Unavailable JACK MEYER Admitting Unavailable JACK MEYER Primary Care Unavailable JACK MEYER Attending Unavailable SANTO LOVE Consulting Unavailable SANTO LOVE Referring Unavailable PROVIDER, UNKNOWN Consulting Unavailable SANTO LOVE Consulting Unavailable HORACIO ROSENTHAL Admitting Unavailable HORACIO ROSENTHAL Primary Care Unavailable HORACIO ROSENTHAL Attending Unavailable PROVIDER, UNKNOWN Consulting Unavailable Santo Love MD Primary Care Provider [facility], Jenny Unavailable [facility], Keti Unavailable Santo Love MD Primary Care Provider [facility], Jenny Unavailable [facility], Keti Unavailable Santo Love MD Primary Care Provider [facility], Jenny Unavailable [facility], Keti Unavailable Santo Love MD Primary Care Provider [facility], Jenny [facility], Keti Unavailable Dr. Santo Love Primary Care Provider Dr. Panchito Zavaleta Emergency Provider Dr. Tahir Rivas Admit Provider [phone] Dr. Tahir Rivas Other Provider [phone] Dr. Cullen Ferrer Attending Provider [phone] Dr. Tahir Rivas Attending Provider Dr. Jacques Fortune Attending Provider [phone] Dr. Jacques Fortune Referring Provider Dr. Vincent Schwab Admit Provider Dr. Vincent Schwab Other Provider Dr. Gomez Johansen Other Provider Dr. Gomez Johansen Attending Provider Dr. Nitish Sood Other Provider Dr. Santo Love Primary Care Provider Dr. Panchito Zavaleta Emergency Provider Dr. Tahir Rivas Admit Provider [phone] Dr. Tahir Rivas Referring Provider [phone] Dr. Tahir Rivas Other Provider [phone] Dr. Cullen Ferrer Attending Provider [phone] Dr. Jacques Fortune Attending Provider [phone] Dr. Jacques Fortune Referring Provider [phone] Dr. Tahir Rivas Attending Provider Dr. Vincent Schwab Admit Provider Dr. Vincent Schwab Other Provider Dr. Gomez Johansen Other Provider Dr. Gomez Johansen Attending Provider Dr. Nitish Sood Other Provider Dr. Santo Love Referring Provider Dr. Apoorva Ferreraan Other Provider Santo Love MD Primary Care Provider Friend, Cullen Attending Unavailable Tahir Rivas Referring Unavailable Kate, Santo Primary Care Unavailable Gomez Johansen Attending Unavailable Teralexis, Vincent Consulting Unavailable Tereletswei, Vincent Admitting Unavailable Shelby, Santo Primary Care Unavailable BarrieNitish Consulting Unavailable Gomez Johansen Consulting Unavailable Warren, Rajeev Attending Unavailable Kate, Santo Referring Unavailable Shelby, Santo Primary Care Unavailable Friend, Cullen Attending Unavailable Friend, Cullen Referring Unavailable Shelby, Santo Primary Care Unavailable Mosteller, Tahir Admitting Unavailable Mosteller, Tahir Consulting Unavailable eller, Tahir Attending Unavailable Kate, Santo Primary Care Unavailable Mosteller, Tahir Attending Unavailable Mosteller, Tahir Admitting Unavailable Shelby, Santo Primary Care Unavailable Gomez Johansen Attending Unavailable Tereletsky, Vincent Admitting Unavailable Kate, Santo Primary Care Unavailable Terleninky, Vincent Consulting Unavailable BarrieNitish Consulting Unavailable Jacques Fortune Attending Unavailable Jacques Fortune Referring Unavailable Shelby, Santo Primary Care Unavailable Rob, Tahir Attending Unavailable Friend, Cullen Attending Unavailable Mosteller, Tahir Referring Unavailable Friend, Cullen Attending Unavailable Mosteller, Tahir Referring Unavailable Kate, Santo Referring Unavailable Roof BATTERY FILLER, Skyler Camarena Attending Unavailable Shelby, Santo Primary Care Unavailable Warren, Benavides Attending Unavailable Warren, Rajeev Referring Unavailable Shelby, Santo Primary Care Unavailable Warren, Benavides Attending Unavailable Shelby, Santo Primary Care Unavailable Friend, Cullen Attending Unavailable FriendCullen Consulting Unavailable Shelby, Santo Referring Unavailable Shelby, Santo Primary Care Unavailable Friend, Cullen Attending Unavailable Kate, Santo Referring Unavailable Shelby, Santo Primary Care Unavailable Friend, Cullen Attending Unavailable Kate, Santo Referring Unavailable Shelby, Santo Primary Care Unavailable Friend, Cullen Attending Unavailable Mosteller, Tahir Referring Unavailable Kate, Santo Primary Care Unavailable Ashwini FORMING MACHINE UPKEEP MECHANIC HELPER.Raisa LUIS Unavailable Suppan FORMING MACHINE UPKEEP MECHANIC HELPER.Star LUISJuliana A Unavailable Suppparris FORMING MACHINE UPKEEP MECHANIC HELPER.TOBY Juliana A Unavailable KATE, SANTO J Primary Care Unavailable RAISA MARADIAGA Attending Unavailable KATE, SANTO Evans Primary Care Unavailable RAISA MARADIAGA Referring Unavailable KATE, SANTO Evans Primary Care Unavailable KATE, SANTO Evans Referring Unavailable KATE, SANTO Evans Primary Care Unavailable JULIANA DAVSI Attending Unavailable SELF Referring Unavailable KATE, SANTO Evans Primary Care Unavailable RAISA MARADIAGA Attending Unavailable KATE, SANTO Evans Primary Care Unavailable KATE, SANTO Evans Referring Unavailable LEONELA BEAR Attending Unavailable KATE, SANTO Evans Primary Care Unavailable KATE, SANTO Evans Referring Unavailable KATE, SANTO Evans Primary Care Unavailable KATE, SANTO Evans Referring Unavailable KATE, SANTO Evans Primary Care Unavailable KATE, SANTO Evans Attending Unavailable KATE, SANTO Evans Primary Care Unavailable KATE, SANTO vEans Referring Unavailable KATE, SANTO Evans Attending Unavailable KATE, SANTO Evans Primary Care Unavailable KATE, SANTO Evans Primary Care Unavailable RAISA MARADIAGA Referring Unavailable KATE, SANTO Evans Primary Care Unavailable RAISA MARADIAGA Attending Unavailable KATE, SANTO Evans Primary Care Unavailable Zari Sorenson Attending Unavailable KATE, SANTO Evans Referring Unavailable KATE, SANTO Evans Primary Care Unavailable ELIZABETH ORTEGA Attending Unavailable KATE, SANTO Evans Primary Care Unavailable RAISA MARADIAGA Attending Unavailable Allergies Allergy Classification Reported Allergen(s) Allergy Type Date of Onset Reaction(s) Facility Alendronate (1 source) Alendronate Drug Allergy 8 Other: See Comments [facility] Work Phone: metFORMIN (1 source) metFORMIN Drug Allergy [address] [facility] Work Phone: Penicillins (antibiotic) (1 source) Amoxicillin Drug Allergy [address] [facility] Work Phone: Shellfish (1 source) Shellfish Food Allergy 8 Diarrhea, Vomiting [facility] (20 sources) alendronate; Translations: [ALENDRONATE SODIUM] Drug Allergy 8 Other: See Comments [facility] Other [place] [facility] (20 sources) amoxicillin; Translations: [AMOXICILLIN] Drug Allergy 7 Diarrhea [facility] (20 sources) metFORMIN; Translations: [METFORMIN] Drug Allergy 7 Diarrhea [facility] (20 sources) Shellfish; Translations: [SHELLFISH] Propensity to adverse reactions to food (disorder) 8 Diarrhea, Vomiting [facility] Other [place] [facility]ository (7 sources) Shellfish; Translations: [shellfish derived] Propensity to adverse reactions 4 Nausea/Vom/Diar carissa [facility] Medications Current Medications Medication Drug Class(es) Dates Sig (Normalized) Sig (Original) Administered Medications Medication Order MAR Action Action Date Dose Rate Site tuberculin skin test, unspecified formulation Given 12/22/2023 (1 source) Administered Medications Medication Order MAR Action Action Date Dose Rate Site tuberculin skin test, unspecified formulation Given 12/22/2023 brimonidine tartrate 2 mg/ml ophthalmic solution (20 sources) alpha-Adrenergic Agonist Start: 12-11-2023 Brimonidine Active 1 DRP OPHTHALMIC TWICE A DAY December 11, 2023 1:00am Start: 02-12-2021 End: 08-14-2021 Brimonidine Discontinued Jan 12:00am August 14, 2021 11:06am Start: 09-06-2019 End: 12-11-2023 take 0.15 drop(s) into the eye(s) twice daily Brimonidine (Alphagan P) 0.15 % drops Discontinued 1 DRP EACH EYE TWICE A DAY September 06, 2019 1:00am December 11, 2023 10:15am take 1 drop(s) into the eye(s) twice daily brimonidine (ALPHAGAN P) 0.15 % ophthalmic solution Use 1 Drop in both eyes two times a day. Active take 1 drop(s) into the eye(s) three times daily brimonidine (ALPHAGAN P) 0.15 % ophthalmic solution Use 1 Drop in both eyes three times daily. 0 Active Comment on above: Use 1 Drop in both e yes three times daily. docusate sodium 100 mg oral capsule (1 source) Start: 2 End: 2 take 1 capsule by mouth twice daily docusate sodium (COLACE) 100 mg capsule Indications: Chronic constipation Take 1 capsule by mouth twice daily. 60 capsule 0 01/16/2022 02/15/2022 Active Comment on above: Take 1 capsule by [facility] twice daily. Dulaglutide (18 sources) GLP-1 Receptor Agonist Start: Dulaglutide (Trulicity) 4.5 mg/0.5 mL pen injector Active 4.5 MG SC MO August 06, 2023 12:00am Start: 08-06-2023 Dulaglutide (T rulicity) 4.5 mg/0.5 mL pen injector Active 4.5 MG SC MO August 05, 2023 11:00pm Start: 08-20-2022 End: 08-06-2023 Dulaglutide (Trulicity) 1.5 mg/0.5 mL pen injector Discontinued 1.5 MG SC EVERY WEEK August 20, 2022 11:00am August 06, 2023 9:37am Start: 01-02-2021 End: 08-20-2022 Dulaglutide (Trulicity) 1.5 mg/0.5 mL pen injector Discontinued 1.5 MG SC MO January 02, 2021 1:00am August 20, 2022 11:01am glipiZIDE 2.5 mg oral tablet (20 sources) Sulfonylurea Start: 06-20-2024 End: 06-21-2025 take 1 tablet by mouth twice daily before mealtime glipiZIDE 2.5 mg tablet Indications: Type 2 diabetes mellitus without complication, without long-term current use of insulin (HCC) Take 1 tablet by mouth two times a day before meals. 60 tablet 5 06/22/2025 Active 3 ml insulin glargine 100 unt/ml pen injector (20 sources) Insulin Analog Start: 05-12-2024 End: 03-03-2026 inject 30 [IU] by subcutaneous injection once daily in the morning insulin glargine 100 unit/mL (3 mL) Indications: Type 2 diabetes mellitus without complication, without long-term current use of insulin (HCC) Inject 30 Units subcutaneously every morning. Patient assistance med, may use flex pens 5 each 3 03/03/2025 03/03/2026 Active Start: 06-29-2023 End: 04-28-2025 inject 20 [IU] by subcutaneous injection once daily at bedtime insulin glargine 100 unit/mL (3 mL) Indications: Type 2 diabetes mellitus without complication, without long-term current use of insulin (HCC) Inject 20 Units subcutaneously daily at bedtime. Patient assistance med, may use flex pens 5 Each 3 04/28/2024 05/12/2024 Discontinued Start: 08-14-2021 Insulin Glargi ne U-300 Conc Active 20 UNIT SC AT BEDTIME August 14, 2021 10:07am Start: 06-17-2021 End: 06-29-2023 inject 20 [IU] by subcutaneous injection once daily at bedtime insulin glargine 100 unit/mL (3 mL) Indications: Type 2 diabetes mellitus without complication, without long-term current use of insulin (HCC) Inject 20 Units subcutaneously daily at bedtime. Patient assistance med 2 Each 3 06/29/2023 Active Start: 06-17-2021 insulin glargi ne (LANTUS SOLOSTAR, BASAGLAR KWIKPEN) 100 unit/mL (3 mL) Indications: Type 2 diabetes mellitus without complication, without long-term current use of insulin (HCC) Inject 20 Units subcutaneously daily at bedtime. Patient assistance med 0 06/17/2021 Active Start: 02-12-2021 End: 08-14-2021 Insulin Glargine U-300 Conc Discontinued 32 UNITS SC AT BEDTIME February 12, 2021 12:00am August 14, 2021 11:08am Start: 09-08-2019 End: 01-02-2021 Insulin Glargine U-300 Conc (Toujeo Solostar U-300 Insulin) 300 unit/mL (1.5 mL) insulin pen Discontinued 24 UNIT SC DAILY September 08, 2019 2:34pm January 02, 2021 11:04am Start: 09-06-2019 End: 09-08-2019 Insulin Glargine U-300 Conc (Toujeo Solostar U-300 Insulin) 300 unit/mL (1.5 mL) insulin pen Discontinued 26 UNIT SC DAILY September 06, 2019 1:00am September 08, 2019 2:35pm Comment on above: Inject 20 Units subc utaneously daily at bedtime. Patient assistance med Insulin Glargine U-300 Conc (3 sources) Start: 08-14-2021 Insulin Glargine U-300 Conc Active 20 UNIT SC AT BEDTIME August 14, 2021 11:07am Start: 08-14-2021 Insulin Glargi ne U-300 Conc Active 20 UNIT SC AT BEDTIME August 14, 2021 10:07am losartan potassium 100 mg oral tablet (20 sources) Angiotensin 2 Receptor Librado Start: 05-01-2025 End: 06-21-2025 take 1 tablet by mouth once daily losartan (COZAAR) 100 mg tablet Take 1 tablet by mouth once daily. 30 tablet 1 06/22/2025 Active Start: 02-07-2025 End: 05-01-2025 take 1.5 tablets by mouth once daily losartan (COZAAR) 50 mg tablet Take 1.5 tablets by mouth once daily. 02/07/2025 05/01/2025 Discontinued Start: 11-01-2024 End: 02-07-2025 take 1 tablet by mouth once losartan (COZAAR) 50 mg ta blet Take 1 tablet by mouth every afternoon. 11/01/2024 02/07/2025 Discontinued (Adjust Sig - Block E-Cancel) meclizine hydrochloride 12.5 mg oral tablet (20 sources) Antiemetic Start: 01-01-2023 take 1 tablet by mouth every six hours as needed meclizine (ANTIVERT) 12.5 mg tab Take 1 tablet by mouth every 6 hours as needed (dizziness). 15 tablet 1 01/01/2023 Active Comment on above: Take 1 tablet by joan th every 6 hours as needed (dizziness). nitroglycerin 0.4 mg sublingual tablet (20 sources) Nitrate Vasodilator Start: 12-18-2021 nitroglycerin sublingual (NITROSTAT) 0.4 mg SL tablet Indications: Atherosclerosis of coronary artery of [place] heart without angina pectoris, unspecified vessel or lesion type Dissolve 1 tablet under the tongue as needed for chest pain. If no pain relief call 911. 25 Bottle of 25 3 12/18/2021 Active Start: 09-06-2019 End: 09-08-2019 Nitroglycerin Discontinued 0 .4 MG SL every 5 to 15 minutes September 08, 2019 2:38pm September 08, 2019 3:38pm Comment on above: Dissolve 1 tablet un avery the tongue as needed for chest pain. If no pain relief call 911. ondansetron 4 mg disintegrating oral tablet (20 sources) Serotonin-3 Receptor Antagonist Start: 01-02-20 take 1 tablet by mouth every six hours as needed ondansetron orally disintegrating (ZOFRAN ODT) 4 mg disintegrating tablet Take 1 tablet by mouth every 6 hours as needed for nausea/vomiting. 15 tablet 01/01/2023 Active Start: 01-01-2023 End: 01-01-2023 ondansetron (PF) 4 mg inject ion (ZOFRAN) Comment on above: Take 1 tablet by joan th every 6 hours as needed for nausea/vomiting. pantoprazole 40 mg delayed release oral tablet (20 sources) Proton Pump Inhibitor Start: 12-13-19 24 End: 04-12-20 25 take 1 tablet by mouth every twelve hours pantopraz[address] DR (PROTONIX) 40 mg tablet Take 1 tablet by mouth every 12 hours. 180 tablet 3 04/12/2024 Active Start: 12-13-2023 End: 02-22-2024 take 1 tablet by mouth twice daily before mealtime pantoprazole DR (PROTONIX) 40 mg tablet Indications: Duodenal ulcer , Gastrointestinal hemorrhage, unspecified gastrointestinal hemorrhage type Take 1 tablet by mouth two times a day. Take on empty stomach, 1/2 hr before meal. 0 01/06/2024 Active Comment on above: Take 1 tablet by joan th every 12 hours. Take 1 tablet by joan th two times a day. Take on empty stomach, 1/2 hr before meal. polyethylene glycol 3350 515819 mg / potassium chloride 2970 mg / sodium bicarbonate 6740 mg / sodium chloride 5860 mg / sodium sulfate 61336 mg powder for oral solution (2 sources) Osmotic Laxative Start: 07-12-2025 peg 3350-Electrolytes (GOLYTELY) 236-22.74-6.74 -5.86 gram suspension Indications: Rectal bleeding Refer to printed prep instructions from your provider. 4000 mL 07/12/2025 Active Start: 03-30-2025 End: 03-30-2025 peg 3350-Electrolytes (GOLYT ULICES) 236-22.74-6.74 -5.86 gram suspension Indications: Screening for colon cancer Take 4,000 mL by mouth one time only for 1 dose. Refer to printed prep instructions from your provider. 4000 mL 03/30/2025 03/30/2025 Active pravastatin sodium 80 mg oral tablet (20 sources) HMG-CoA Reductase Inhibitor Start: 11-12-2023 End: 12-07-2024 take 1 tablet by mouth once daily pravastatin (PRAVACHOL) 80 mg tablet Indications: Mixed hyperlipidemia Take 1 tablet by mouth once daily. 90 tablet 3 12/07/2024 Active Start: 09-06-2019 End: 11-17-2022 take 1 tablet by mouth once daily pravastatin (PRAVACHOL) 80 mg tablet Indications: Mixed hyperlipidemia Take 1 tablet by mouth once daily. 90 tablet 3 11/12/2023 Active Comment on above: Take 1 tablet by joan th once daily. SITagliptin 50 mg oral tablet (20 sources) Dipeptidyl Peptidase 4 Inhibitor Start: take 1 tablet by mouth once daily SITagliptin phosphate (JANUVIA) 50 mg tablet Indications: Type 2 diabetes mellitus without complication, with long-term current use of insulin (HCC) Take 1 tablet by mouth once daily. 30 tablet 5 05/03/2025 Active Start: 01-27-2025 End: 05-03-2025 take 1 tablet by mouth once daily SITagliptin phosphate (JANUVIA) 25 mg tablet Take 1 tablet by mouth once daily. 30 tablet 3 01/27/2025 05/03/2025 Discontinued (Dosage adjustment) Start: 09-06-2019 End: 01-02-2021 take 1 tablet by mouth once daily Sitagliptin Phosphate (Januvia) 100 mg tablet Discontinued 100 MG PO DAILY September 06, 2019 1:00am January 02, 2021 11:04am 24 hr verapamil hydrochloride 300 mg extended release oral capsule (20 sources) Calcium Channel Librado Start: 02-05-2023 End: 08-06-2023 take 300 mg by mouth once daily in the morning Verapamil Discontinued 300 MG PO EVERY MORNING February 05, 2023 9:59am August 06, 2023 9:36am Start: 11-27-2022 End: 12-07-2025 take 1 capsule by mouth once daily at bedtime verapamil ER (VERELAN PM) 300 mg CPCT Take 1 capsule by mouth daily at bedtime. 30 capsule 11 12/07/2024 12/07/2025 Active Start: 09-06-2019 End: 02-05-2023 take 240 mg by mouth once daily in the morning Verapamil Discontinued 240 MG PO EVERY MORNING September 06, 2019 1:00am February 05, 2023 9:59am Comment on above: Take 1 tablet by joan th once daily. Take 1 capsule by mo [facility] daily at bedtime. vitamin b12 1 mg oral tablet (20 sources) Vitamin B12 Start: 11-21-2024 take 1 tablet by mouth every other day cyanocobalamin (VITAMIN B-12) 1,000 mcg tab Take 1 tablet by mouth every other day. 11/21/2024 Active Start: 04-06-2018 End: 11-21-2024 take 1 tablet by mouth once daily cyanocobalamin (VITAMIN B-12) 1,000 mcg tab Take 1 tablet by mouth once daily. 04/06/2018 11/21/2024 Discontinued (Adjust Sig - Block E-Cancel) Comment on above: Take 1 tablet by joan th once daily. vitamin b6 100 mg oral tablet (20 sources) Start: 06-04-2009 pyridoxine hcl(VITAMIN B-6 100 MG TAB) Take one(1) tablet daily. 0 06/04/2009 Active Comment on above: Take one(1) tablet d aily. Completed/Discontinued Medications Medication Drug Class(es) Dates Sig (Normalized) Sig (Original) apixaban 5 mg oral tablet (20 sources) Factor Xa Inhibitor Start: 11-23-2023 End: 06-20-2024 take 1 tablet by mouth twice daily apixaban (ELIQUIS) 5 mg tab(s) Take 1 tablet by mouth two times a day. 180 tablet 3 03/14/2024 06/20/2024 Discontinued (Clinical Decision) Start: 09-06-2019 End: 01-16-2023 take 1 tablet by mouth twice daily apixaban (ELIQUIS) 5 mg tab(s) Take 1 tablet by mouth two times a day. 180 tablet 3 11/23/2023 Active Comment on above: Take 1 tablet by joan th twice daily. Take 1 tablet by joan th two times a day. aspirin 81 mg delayed release oral tablet (6 sources) Platelet Aggregation Inhibitor, Nonsteroidal Anti-inflammatory Drug Start: 09-06-20 End: 01-03-20 21 Aspirin (Adult Low Dose Aspirin) 81 mg tablet,delayed release (DR/EC) Discontinued 81 MG PO DAILY September 06, 2019 1:00am January 02, 2021 3:55pm calcium carbonate 1500 mg / cholecalciferol 200 unt oral capsule (20 sources) Vitamin D Start: 09-06-20 End: 12-11-19 24 take 1 capsule by mouth once daily calcium carbonate-vitamin D3 600 mg calcium-200 unit capsule Discontinued 1 CAP PO DAILY September 06, 2019 1:00am December 11, 2023 11:56am Start: 10-20-2005 take 1 tablet by joan th once daily CALCIUM + D 600 MG-200 UNIT TAB Take 1 tablet by mouth once daily. 0 10/20/2005 Active Comment on above: Take one(1) tablet d aily. Take 1 tablet by joan th once daily. calcium chloride 0.0014 meq/ml / potassium chloride 0.004 meq/ml / sodium chloride 0.103 meq/ml / sodium lactate 0.028 meq/ml injectable solution (1 source) Start: 2024 End: 2024 take 30 mL intravenously every hour 30 mL/hr, INTRAVENOUS, CONTINUOUS, Starting on Thu05/09/25 at 0930, Until Thu05/09/25 at 1022, Preprocedure canagliflozin 100 mg oral tablet (9 sources) Sodium-Glucose Cotransporter 2 Inhibitor Start: 2024 End: 2024 take 1 tablet by mouth once daily at breakfast canagliflozin (INVOKANA) 100 mg tab Indications: Type 2 diabetes mellitus without complication, without long-term current use of insulin (HCC) Take 1 tablet by mouth daily with breakfast. 30 tablet 5 11/19/2024 01/27/2025 Discontinued (Other) dulaglutide (TRULICITY) 3 mg/0.5 mL pen injector (20 sources) Start: 2020 End: 2022 inject 3 mg by subcutaneous injection every week dulaglutide (TRULICITY) 3 mg/0.5 mL pen injector Inject 3 mg subcutaneously one time a week. 4 Each 5 10/14/2021 05/08/2023 Discontinued Start: 10-14-2021 inject 3 mg by subcu taneous injection every week dulaglutide (TRULICITY) 3 mg/0.5 mL pen injector Inject 3 mg subcutaneously one time a week. 4 Each 5 10/14/2021 Active Comment on above: Inject 3 mg subcutan eously one time a week. dulaglutide (TRULICITY) 4.5 mg/0.5 mL pen injector (20 sources) Start: End: inject 4.5 mg by subcutaneous injection every week dulaglutide (TRULICITY) 4.5 mg/0.5 mL pen injector Inject 4.5 mg subcutaneously one time a week. 2 mL 04/12/2024 05/12/2024 Discontinued (Availability) Start: 04-12-2024 End: 04-12-2025 inject 4.5 mg by subcutaneous injection every week dulaglutide (TRULICITY) 4.5 mg/0.5 mL pen injector Inject 4.5 mg subcutaneously one time a week. 2 mL 04/12/2024 04/12/2025 Active Start: 05-08-2023 End: 04-12-2024 inject 4.5 mg by subcutaneous injection every week dulaglutide (TRULICITY) 4.5 mg/0.5 mL pen injector Inject 4.5 mg subcutaneously one time a week. 2 mL 05/08/2023 04/12/2024 Discontinued (Adjust Sig - Block E-Cancel) Start: 05-08-2023 End: 05-07-2024 inject 4.5 mg by subcutaneous injection every week dulaglutide (TRULICITY) 4.5 mg/0.5 mL pen injector Inject 4.5 mg subcutaneously one time a week. 2 mL 05/08/2023 05/07/2024 Active Comment on above: Inject 4.5 mg subcut aneously one time a week. empagliflozin 10 mg oral tablet (3 sources) Sodium-Glucose Cotransporter 2 Inhibitor Start : 07-13 End: 07-13 take 1 tablet by mouth once daily at breakfast empagliflozin (JARDIANCE) 10 mg tablet Indications: Type 2 diabetes mellitus without complication, without long-term current use of insulin (HCC) Take 1 tablet by mouth daily with breakfast. 90 tablet 3 07/13/2024 11/19/2024 Discontinued 1 ml fentaNYL 0.05 mg/ml injection (1 source) Opioid Agonist Start : 05-09 End: 05-09 25-100 mcg, INTRAVENOUS, DIRECTED, Starting on Thu05/09/25 at 1030, Until Thu05/09/25 at 1429, DOSING DIRECTED BY PHYSICIAN FOR PROCEDURAL SEDATION ONLY, Intraprocedure ferrous sulfate 325 mg oral tablet (13 sources) Start : 01-06 End: 07-05 take 1 tablet by mouth twice daily at mealtime ferrous sulfate 325 mg (65 mg iron) tablet Indications: Iron deficiency anemia due to chronic blood loss Take 1 tablet by mouth two times a day with meals. 60 tablet 5 01/07/2024 04/12/2024 Discontinued Comment on above: [facility] with [facility]. fluticasone propionate 0.05 mg/actuat metered dose nasal spray (6 sources) Corticosteroid Start : 09-06 End: 12-11 Fluticasone Propionate (Allergy Relief (Fluticasone)) 50 mcg/actuation spray,suspension Discontinued 2 SPRAY INTRANASAL DAILY September 06, 2019 1:00am December 11, 2023 11:58am glimepiride 4 mg oral tablet (6 sources) Sulfonylurea Start : 09-06 End: 03-07 take 4 mg by mouth once daily in the morning Glimepiride Discontinued 4 MG PO EVERY MORNING September 06, 2019 1:00am March 07, 2020 11:12am hydroCHLOROthiazide 12.5 mg oral capsule (20 sources) Thiazide Diuretic Start : 01-02 End: 02-05 take 12.5 mg by mouth once daily Hydrochlorothiazide Discontinued 12.5 MG PO DAILY August 14, 2021 11:11am February 05, 2023 9:59am Comment on above: Take 1 capsule by mo [facility] once daily. lisinopril 30 mg oral tablet (20 sources) Angiotensin Converting Enzyme Inhibitor Start : 05-12 End: 05-12 take 1 tablet by mouth once daily lisinopril (ZESTRIL) 30 mg tablet Indications: Essential hypertension Take 1 tablet by mouth once daily. 90 tablet 3 05/12/2024 11/19/2024 Discontinued (Other) Start: 09-30-2023 End: 05-12-2024 take 1 tablet by mouth once daily lisinopril (ZESTRIL) 20 mg tablet Indications: Essential hypertension Take 1 tablet by mouth once daily. 90 tablet 3 09/30/2023 05/12/2024 Discontinued (Dosage adjustment) Start: 06-30-2022 End: 02-01-2024 take 20 mg by mouth once daily Lisinopril Discontinued 20 MG PO DAILY December 11, 2023 1:00am February 01, 2024 3:06pm Start: 06-27-2022 End: 09-30-2023 take 0.5 tablet by mouth once daily lisinopril (ZESTRIL) 40 mg tablet Indications: Essential hypertension TAKE 1/2 (ONE-HALF) TABLET BY MOUTH ONCE DAILY 90 tablet 3 03/06/2023 09/30/2023 Discontinued Start: 01-02-2021 End: 02-13-2023 take 40 mg by mouth once daily Lisinopril Discontinued 40 MG PO DAILY January 02, 2021 1:00am June 30, 2022 1:19pm Start: 09-06-2019 End: 01-02-2021 take 30 mg by mouth once daily Lisinopril Discontinued 30 MG PO DAILY September 06, 2019 1:00am January 02, 2021 11:02am Comment on above: Take 1 tablet by joan th once daily. Take 0.5 tablets by mouth once daily. TAKE 1/2 (ONE-HALF) TABLET BY MOUTH ONCE DAILY 5 ml midazolam 1 mg/ml injection (1 source) Benzodiazepine Start: End: 1-5 mg, INTRAVENOUS, DIRECTED, Starting on Thu05/09/25 at 1030, Until Thu05/09/25 at 1429, DOSING DIRECTED BY PHYSICIAN FOR PROCEDURAL SEDATION ONLY, Intraprocedure omeprazole 20 mg delayed release oral capsule (6 sources) Proton Pump Inhibitor Start: End: take 20 mg by mouth once daily Omeprazole Discontinued 20 MG PO DAILY September 06, 2019 1:00am February 24, 2022 10:52am potassium chloride 20 meq extended release oral tablet (6 sources) Start: End: take 20 mEq by mouth once daily Potassium Chloride Discontinued 20 MEQ PO DAILY September 06, 2019 1:00am September 08, 2019 2:34pm semaglutide (OZEMPIC) 0.25 mg or 0.5 mg (2 mg/3 mL) pen (5 sources) Start: End: inject 0.5 mg by subcutaneous injection every week semaglutide (OZEMPIC) 0.25 mg or 0.5 mg (2 mg/3 mL) pen Indications: Type 2 diabetes mellitus without complication, without long-term current use of insulin (HCC) Inject 0.5 mg subcutaneously one time a week. 3 mL 04/12/2024 05/12/2024 Discontinued (Availability) Start: 04-12-2024 End: 04-12-2025 inject 0.5 mg by subcutaneous injection every week semaglutide (OZEMPIC) 0.25 mg or 0.5 mg (2 mg/3 mL) pen Indications: Type 2 diabetes mellitus without complication, without long-term current use of insulin (HCC) Inject 0.5 mg subcutaneously one time a week. 3 mL 04/12/2024 04/12/2025 Active sucralfate 1000 mg oral tablet (6 sources) Aluminum Complex Start: 10-17-2016 End: 09-06-2019 take 1 g by mouth four times daily Sucralfate Discontinued 1 GM PO 4 TIMES DAILY October 17, 2016 1:00am September 06, 2019 1:11pm sulfamethoxazole 800 mg / trimethoprim 160 mg oral tablet (6 sources) Dihydrofolate Reductase Inhibitor Antibacterial, Sulfonamide Antimicrobial Start: 10-11-2017 End: 09-06-2019 take 1 tablet by mouth twice daily Sulfamethoxazole- Trimethoprim Discontinued 1 TABLET PO TWICE A DAY October 11, 2017 1:00am September 06, 2019 1:11pm Problems Active Problems Problem Classification Problem Date Documented Da te Episodic/Chronic Biliary tract disease (6 sources) Biliary colic; Translations: [Calculus of bile duct without cholangitis or cholecystitis without obstruction] 10-18-2016 Episodic Cardiac dysrhythmias (20 sources) Paroxysmal atrial fibrillation; Translations: [Other specified cardiac arrhythmias] Onset: 9 Resolved: 2 06-12-2009 Chronic Conditions associated with dizziness or vertigo (2 sources) Benign paroxysmal positional vertigo; Translations: [Benign paroxysmal vertigo, unspecified ear] Episodic Coronary atherosclerosis and other heart disease (20 sources) 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; Translations: [Coronary atherosclerosis] Onset: 9 10-18-2020 Chronic Deficiency and other anemia (20 sources) Iron deficiency anemia due to blood loss; Translations: [Iron deficiency anemia secondary to blood loss (chronic)] Onset: 4 01-07-2024 Chronic Deficiency and other anemia (1 source) Iron deficiency anemia secondary to blood loss (chronic); Translations: [Iron deficiency anemia due to chronic blood loss] Onset: Chronic Diabetes mellitus without complication (20 sources) Type 2 diabetes mellitus without complication; Translations: [Type 2 diabetes mellitus without complications] Onset: 6 10-28-2021 Chronic Diseases of white blood cells (20 sources) Granulomatous disorder; 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] Onset: 4 02-22-2024 Chronic Disorders of lipid metabolism (20 sources) Hyperlipidemia; Translations: [Hyperlipidemia, unspecified] Onset: 6 09-12-2015 Chronic Esophageal disorders (20 sources) Gastroesophageal reflux disease; Translations: [Gastro-esophageal reflux disease without esophagitis] Onset: 7 02-24-2007 Chronic Essential hypertension (20 sources) Essential hypertension; Translations: [Essential (primary) hypertension] Onset: 6 Chronic Gastroduodenal ulcer (except hemorrhage) (15 sources) Prepyloric ulcer; Translations: [Gastric ulcer, unspecified as acute or chronic, without hemorrhage or perforation] Onset: 4 12-15-2023 Chronic Gastrointestinal hemorrhage (20 sources) Upper gastrointestinal bleeding; Translations: [Gastrointestinal hemorrhage, unspecified] Onset: 4 12-11-2023 Episodic Heart valve disorders (20 sources) Non-rheumatic mitral regurgitation ; Translations: [Nonrheumatic mitral (valve) insufficiency] Onset: 1 06-17-2021 Chronic Lung disease due to external agents (20 sources) 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; Translations: [Chronic and other pulmonary manifestations due to radiation] Onset: 4 02-22-2024 Chronic Osteoarthritis (20 sources) Osteoarthritis of right knee joint; Translations: [Unilateral primary osteoarthritis, right knee] 10-02-2011 Chronic Other aftercare (6 sources) Drug therapy finding; Translations: [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] 12-11-2023 Episodic Other aftercare (4 sources) 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; Translations: [Long-term (current) use of 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] 12-11-2023 Episodic Other and unspecified benign neoplasm (20 sources) History of polyp of colon; Translations: [Personal history of colonic polyps] Episodic Other circulatory disease (1 source) Low blood pressure; Translations: [Other hypotension] Episodic Other diseases of kidney and ureters (3 sources) Hydroureter; Translations: [Hydroureter] 01-06-2024 Episodic Other diseases of kidney and ureters (2 sources) Bilateral hydronephrosis ; Translations: [Unspecified hydronephrosis] 02-02-2024 Episodic Other ear and sense organ disorders (1 source) Impacted cerumen in left ear; Translations: [Impacted cerumen, left ear] 12-13-2024 Episodic Other gastrointestinal disorders (1 source) Other specified diseases of intestine; Translations: [Other specified disorders of intestine] 05-17-2025 Episodic Other injuries and conditions due to external causes (6 sources) Injury of trunk; Translations: [Unspecified injury of thorax, initial encounter] 12-11-2023 Episodic Other injuries and conditions due to external causes (6 sources) Unspecified injury of thorax, initial encounter; Translations: [Other injury of chest wall] 12-11-2023 Episodic Other liver diseases (2 sources) Fatty (change of) liver, not elsewhere classified; Translations: [Other chronic nonalcoholic liver disease] Onset: 5 02-07-2025 Chronic Other liver diseases (4 sources) Alkaline phosphatase raised; Translations: [Abnormal levels of other serum enzymes] 01-25-2025 Episodic Other lower respiratory disease (5 sources) Multiple nodules of lung; Translations: [Other nonspecific abnormal finding of lung field] 12-18-2023 Episodic Other nutritional; endocrine; and metabolic disorders (4 sources) Hypercalcemia; Translations: [Hypercalcemia] Chronic Other upper respiratory disease (6 sources) Anterior epistaxis; Translations: [Epistaxis] 12-29-2020 Episodic Residual codes; unclassified (1 source) Postmenopausal state; Translations: [Asymptomatic menopausal state] Episodic Screening and history of mental health and substance abuse codes (2 sources) Encounter for screening for depression; Translations: [Encounter for screening examination for other mental health and behavioral disorders] Onset: 5 Episodic Superficial injury; contusion (12 sources) Contusion of rib; Translations: [Contusion of right front wall of thorax, initial encounter] 12-11-2023 Episodic Unclassified (20 sources) Encounter for screening for malignant neoplasm of cervix; Translations: [Patient encounter status] Onset: 7 Resolved: 1 Episodic Unclassified (1 source) Unknown / UNK(Unknown) Onset: 8 Unclassified (1 source) Mass of cecum 05-17-2025 Unclassified (1 source) History of colon polyps; Translations: [History of colon polyps] Onset: 2 Unclassified (1 source) Paroxysmal SVT (supraventricular tachycardia) (HCC); Translations: [Paroxysmal SVT (supraventricular tachycardia) (HCC)] Onset: 0 Unclassified (1 source) Other persistent atrial fibrillation; Translations: [Persistent atrial fibrillation (HCC)] Onset: 7 Past or Other Problems Problem Classification Problem Date Documented Da te Episodic/Chronic Abdominal hernia (20 sources) Diaphragmatic hernia; Translations: [Diaphragmatic hernia without obstruction or gangrene] Onset: 7 Resolved: 1 02-18-2011 Episodic Acute posthemorrhagic anemia (18 sources) Acute posthemorrhagic anemia; Translations: [Acute posthemorrhagic anemia] Onset: 4 12-11-2023 Episodic Cancer of breast (20 sources) Malignant tumor of breast ; Translations: [Malignant neoplasm of unspecified site of unspecified female breast] Onset: 1 Resolved: 4 02-18-2011 Chronic Cancer of breast (20 sources) History of malignant neoplasm of breast; Translations: [Personal history of malignant neoplasm of breast] Onset: 4 02-22-2024 Episodic Coronary atherosclerosis and other heart disease (6 sources) Stented coronary artery; Translations: [Presence of coronary angioplasty implant and graft] Onset: 9 02-05-2023 Episodic Diverticulosis and diverticulitis (20 sources) Diverticulitis; Translations: [Diverticulitis of intestine, part unspecified, without perforation or abscess without bleeding] Onset: 1 Resolved: 2 10-24-2011 Chronic Esophageal disorders (20 sources) Esophagitis; Translations: [Esophagitis, unspecified] Onset: 7 Resolved: 1 02-18-2011 Episodic Gastritis and duodenitis (20 sources) Gastritis; Translations: [Other gastritis without bleeding] Onset: 7 Resolved: 1 02-18-2011 Episodic Genitourinary symptoms and ill-defined conditions (3 sources) Retention of urine; Translations: [Retention of urine, unspecified] Onset: 5 01-06-2024 Episodic Immunizations and screening for infectious disease (20 sources) Finding related to response to skin test; Translations: [Nonspecific reaction to tuberculin skin test without active tuberculosis] Onset: 6 12-16-2005 Episodic Nutritional deficiencies (3 sources) Serum vitamin B12 low; Translations: [Deficiency of other specified B group vitamins] Onset: 5 07-13-2024 Episodic Other aftercare (20 sources) Long-term current use of anticoagulant; Translations: [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] Onset: 7 Resolved: 4 01-10-2017 Episodic Other aftercare (1 source) half-way (current) use of insulin; Translations: [Type 2 diabetes mellitus without complication, with long-term current use of insulin (HCC)] Onset: 1 Episodic Other and unspecified benign neoplasm (20 sources) Benign neoplasm of colon; Translations: [Benign neoplasm of colon, unspecified] Onset: 1 Resolved: 2 10-17-2011 Episodic Other bone disease and musculoskeletal deformities (20 sources) Osteopenia; Translations: [Other specified disorders of bone density and structure, unspecified site] Onset: 0 05-21-2010 Episodic Other bone disease and musculoskeletal deformities (1 source) Other specified disorders of bone density and structure, unspecified site; Translations: [Osteopenia, unspecified location] Onset: 4 Episodic Other connective tissue disease (20 sources) Left achilles tendonitis; Translations: [Achilles tendinitis, left leg] Onset: 8 Resolved: 8 06-04-2018 Episodic Other connective tissue disease (20 sources) Right achilles tendonitis; Translations: [Achilles tendinitis, right leg] Onset: 8 Resolved: 8 06-04-2018 Episodic Other gastrointestinal disorders (20 sources) Constipation; Translations: [Constipation, unspecified] Onset: 1 Resolved: 2 10-14-2011 Episodic Other gastrointestinal disorders (20 sources) History of gastrointestinal bleed; Translations: [Personal history of other diseases of the digestive system] Onset: 4 04-12-2024 Episodic Other gastrointestinal disorders (1 source) Personal history of other diseases of the digestive system; Translations: [History of GI bleed] Onset: 4 Episodic Other liver diseases (1 source) Abnormal levels of other serum enzymes; Translations: [Elevated alkaline phosphatase level] Onset: 5 Episodic Other lower respiratory disease (20 sources) Nodule of lung; Translations: [Solitary pulmonary nodule] Onset: 4 01-06-2024 Episodic Other lower respiratory disease (1 source) Solitary pulmonary nodule; Translations: [Lung nodule] Onset: 4 Episodic Other nervous system disorders (20 sources) Carpal tunnel syndrome; Translations: [Carpal tunnel syndrome, unspecified upper limb] Resolved: 8 06-04-2018 Chronic Other nutritional; endocrine; and metabolic disorders (20 sources) Obesity; Translations: [Obesity, unspecified] Onset: 6 Resolved: 2 12-16-2005 Chronic Unclassified (4 sources) Patient encounter status 03-30-2025 Viral infection (20 sources) COVID-19; Translations: [Acute respiratory disease due to COVID-19 virus] Onset: 7 Resolved: 8 02-11-2021 Episodic Results Test Name Value Interpretation Reference Range Facility CBC W Auto Differential pane l (Bld)on 08-23-2025 Basophils (Bld) [#/Vol] 0.09 10*3/uL Normal <0.11 [facility] Comment on above: Order Comment: Speci men Type: BLOOD SPECIMENOrdering Facility: [facility] Address: [address] [place] [address] Performed By: #### 5 7021-8 ####[facility] LABCLIA [id number] [place] [address] [place] Basophils/100 WBC (Bld) 1.0 % Normal [facility] Comment on above: Order Comment: Speci men Type: BLOOD SPECIMENOrdering Facility: [facility] Address: [address] [place] [address] Performed By: #### 5 7021-8 ####[facility] LABCLIA [id number] [place] [address] [place] Differential cell count method Nom (Bld) Auto Normal [facility] Comment on above: Order Comment: Speci men Type: BLOOD SPECIMENOrdering Facility: [facility] Address: [address] [place] [address] Performed By: #### 5 7021-8 ####[facility] LABCLIA [id number] [place] [address] [place] Eosinophils (Bld) [#/Vol] 0.17 10*3/uL Normal <0.46 [facility] Comment on above: Order Comment: Speci men Type: BLOOD SPECIMENOrdering Facility: [facility] Address: [address] [place] [address] Performed By: #### 5 7021-8 ####[facility] LABCLIA [id number] [place] [address] [place] Eosinophils/100 WBC (Bld) 1.9 % Normal [facility] Comment on above: Order Comment: Speci men Type: BLOOD SPECIMENOrdering Facility: [facility] Address: [address] [place] [address] Performed By: #### 5 7021-8 ####[facility] LABCLIA [id number] [place] [address] [place] Erythrocyte distribution width (RBC) [Ratio] 14.1 % Normal 11.5-15.0 [facility] Comment on above: Order Comment: Speci men Type: BLOOD SPECIMENOrdering Facility: [facility] Address: [address] [place] [address] Performed By: #### 5 7021-8 ####[facility] LABCLIA [id number] [place] [address] [place] Hematocrit (Bld) [Volume fraction] 41.4 % Normal 36.0-46.0 [facility] Comment on above: Order Comment: Speci men Type: BLOOD SPECIMENOrdering Facility: [facility] Address: [address] [place] [address] Performed By: #### 5 7021-8 ####[facility] LABCLIA [id number] [place] [address] [place] Hemoglobin (Bld) [Mass/Vol] 13.6 g/dL Normal 11.5-15.5 [facility] Comment on above: Order Comment: Speci men Type: BLOOD SPECIMENOrdering Facility: [facility] Address: [address] [place] [address] Performed By: #### 5 7021-8 ####[facility] LABCLIA [id number] [place] [address] [place] Immature granulocytes (Bld) [#/Vol] 0.07 10*3/uL Normal <0.10 [facility] Comment on above: Order Comment: Speci men Type: BLOOD SPECIMENOrdering Facility: [facility] Address: [address] [place] [address] Performed By: #### 5 7021-8 ####[facility] LABCLIA [id number] [place] [address] [place] Immature granulocytes/100 WBC (Bld) 0.8 % Normal [facility] Comment on above: Order Comment: Speci men Type: BLOOD SPECIMENOrdering Facility: [facility] Address: [address] [place] [address] Performed By: #### 5 7021-8 ####[facility] LABCLIA [id number] [place] [address] [place] Lymphocytes (Bld) [#/Vol] 1.80 10*3/uL Normal 1.00-4.00 [facility] Comment on above: Order Comment: Speci men Type: BLOOD SPECIMENOrdering Facility: [facility] Address: [address] [place] [address] Performed By: #### 5 7021-8 ####[facility] LABCLIA [id number] [address] [place] Lymphocytes/100 WBC (Bld) 19.8 % Normal [facility] Comment on above: Order Comment: Speci men Type: BLOOD SPECIMENOrdering Facility: [facility] Address: [address] [place] [address] Performed By: #### 5 7021-8 ####[facility] LABCLIA [id number] [place] [address] [place] MCH (RBC) [Entitic mass] 30.6 pg Normal 26.0-34.0 [facility] Comment on above: Order Comment: Speci men Type: BLOOD SPECIMENOrdering Facility: [facility] Address: [address] [place] [address] Performed By: #### 5 7021-8 ####[facility] LABCLIA [id number] [place] [address] [place] MCHC (RBC) [Mass/Vol] 32.9 g/dL Normal 30.5-36.0 [facility] Comment on above: Order Comment: Speci men Type: BLOOD SPECIMENOrdering Facility: [facility] Address: [address] [place] [address] Performed By: #### 5 7021-8 ####[facility] LABCLIA [id number] [place] [address] [place] MCV (RBC) [Entitic vol] 93.2 fL Normal 80.0-100.0 [facility] Comment on above: Order Comment: Speci men Type: BLOOD SPECIMENOrdering Facility: [facility] Address: [address] [place] [address] Performed By: #### 5 7021-8 ####[facility] LABCLIA [id number] [place] [address] [place] Monocytes (Bld) [#/Vol] 0.84 10*3/uL Normal <0.87 [facility] Comment on above: Order Comment: Speci men Type: BLOOD SPECIMENOrdering Facility: [facility] Address: [address] [place] [address] Performed By: #### 5 7021-8 ####[facility] LABCLIA [id number] [place] [address] [place] Monocytes/100 WBC (Bld) 9.2 % Normal [facility] Comment on above: Order Comment: Speci men Type: BLOOD SPECIMENOrdering Facility: [facility] Address: [address] [place] [address] Performed By: #### 5 7021-8 ####[facility] LABCLIA [id number] [place] [address] [place] Neutrophils (Bld) [#/Vol] 6.14 10*3/uL Normal 1.45-7.50 [facility] Comment on above: Order Comment: Speci men Type: BLOOD SPECIMENOrdering Facility: [facility] Address: [address] [place] [address] Performed By: #### 5 7021-8 ####[facility] LABCLIA [id number] [place] [address] [place] Neutrophils/100 WBC (Bld) 67.3 % Normal [facility] Comment on above: Order Comment: Speci men Type: BLOOD SPECIMENOrdering Facility: [facility] Address: [address] [place] [address] Performed By: #### 5 7021-8 ####[facility] LABCLIA [id number] [place] [address] [place] Nucleated RBC (Bld) [#/Vol] 10*3/uL Normal <0.01 [facility] Comment on above: Order Comment: Speci men Type: BLOOD SPECIMENOrdering Facility: [facility] Address: [address] [place] [address] Performed By: #### 5 7021-8 ####[facility] LABCLIA [id number] [place] [address] [place] Nucleated RBC/100 WBC (Bld) [Ratio] 0.0 /100 WBC Normal [facility] Comment on above: Order Comment: Speci men Type: BLOOD SPECIMENOrdering Facility: [facility] Address: [address] [place] [address] Performed By: #### 5 7021-8 ####[facility] LABCLIA [id number] [place] [address] [place] Platelet mean volume (Bld) [Entitic vol] 10.4 fL Normal 9.0-12.7 [facility] Comment on above: Order Comment: Speci men Type: BLOOD SPECIMENOrdering Facility: [facility] Address: [address] [place] [address] Performed By: #### 5 7021-8 ####[facility] LABCLIA [id number] [place] [address] [place] Platelets (Bld) [#/Vol] 253 10*3/uL Normal 150-400 [facility] Comment on above: Order Comment: Speci men Type: BLOOD SPECIMENOrdering Facility: [facility] Address: [address] [place] [address] Performed By: #### 5 7021-8 ####[facility] LABCLIA [id number] [place] [address] [place] RBC (Bld) [#/Vol] 4.44 10*6/uL Normal 3.90-5.20 [facility] Comment on above: Order Comment: Speci men Type: BLOOD SPECIMENOrdering Facility: [facility] Address: [address] [place] [address] Performed By: #### 5 7021-8 ####[facility] LABCLIA [id number] [place] [address] [place] WBC (Bld) [#/Vol] 9.11 10*3/uL Normal 3.70-11.00 [facility] Comment on above: Order Comment: Speci men Type: BLOOD SPECIMENOrdering Facility: [facility] Address: [address] [place] [address] Performed By: #### 5 7021-8 ####[facility] LABCLIA [id number] [address] [place] HbA1c (Bld)on 08-23-2025 Average glucose Estimated from glycated hemoglobin (Bld) [Mass/Vol] 174 mg/dL Normal [facility] Comment on above: Order Comment: Jennie metz Type: BLOOD SPECIMENOrdering Facility: [facility] Address: [address] [place] [address] Result Comment: eAG: (Estimated average glucose) is a calculated value from HgbA1c and is sales representative education courses of the average blood glucose level in the last 2-3 month period. Performed By: #### 5 5454-3 ####[facility] LABIA [id number] [address] [place] HbA1c (Bld) [Mass fraction] 7.7 % High 4.3-5.6 [facility] Comment on above: Order Comment: Jenine metz Type: BLOOD SPECIMENOrdering Facility: [facility] Address: [address] [place] [address] Result Comment: Amer [place] Diabetes Association guidelines indicate that patients with HgbA1c in the range 5.7-6.4% are at increased risk for development of diabetes, and intervention by lifestyle modification may be beneficial. HgbA1c greater or equal to 6.5% is considered diagnostic of diabetes. Performed By: #### 5 5454-3 ####[facility] LABCLIA [id number] [place] [id number] [place] Hepatic function 2000 panelo n 08-23-2025 Albumin [Mass/Vol] 4.3 g/dL Normal 3.9-4.9 [facility] Comment on above: Order Comment: Jennie metz Type: BLOOD SPECIMENOrdering Facility: [facility] Address: [address] [place] [address] Performed By: #### 2 4325-3, 82417-3 ####[facility] LABCLIA [id number] [place] [address] [place] ALP [Catalytic activity/Vol] 94 U/L Normal 34-123 [facility] Comment on above: Order Comment: Speci men Type: BLOOD SPECIMENOrdering Facility: [facility] Address: [address] [place] [address] Performed By: #### 2 4325-3, 66053-8 ####[facility] LABCLIA [id number] [place] [address] [place] ALT [Catalytic activity/Vol] 19 U/L Normal 7-38 [facility] Comment on above: Order Comment: Speci men Type: BLOOD SPECIMENOrdering Facility: [facility] Address: [address] [place] [address] Performed By: #### 2 4325-3, 98520-1 ####[facility] LABCLIA [id number] [place] [address] [place] AST [Catalytic activity/Vol] 23 U/L Normal 13-35 [facility] Comment on above: Order Comment: Speci men Type: BLOOD SPECIMENOrdering Facility: [facility] Address: [address] [place] [address] Performed By: #### 2 4325-3, 49319-6 ####[facility] LABCLIA [id number] [place] [address] [place] Bilirubin [Mass/Vol] 0.4 mg/dL Normal 0.2-1.3 [facility] Comment on above: Order Comment: Speci men Type: BLOOD SPECIMENOrdering Facility: [facility] Address: [address] [place] [address] Performed By: #### 2 4325-3, 42981-9 ####[facility] LABCLIA [id number] [place] [address] [place] Bilirubin.conjugated [Mass/Vol] 0.1 mg/dL Normal <0.3 [facility] Comment on above: Order Comment: Speci men Type: BLOOD SPECIMENOrdering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 1945 Admit Type: Outpatient Age: 80 Gender: Female Note Status: Finalized Procedure: Colonoscopy - screening high risk Indications: High risk colon cancer surveillance: Personal history of adenomatous colonic polyps Providers: Zari Sorenson MD Patient Profile: Refer to note in patient chart for documentation of history and physical. Last Colonoscopy: 2020. Referring Physician: Santo Love (Referring ) Medicines: Midazolam 3 mg IV, Fentanyl 50 micrograms IV Complications: No immediate complications. Requesting Provider: Procedure: Pre-Anesthesia Assessment: - Prior to the procedure, a History and Physical was performed, and patient medications and allergies were reviewed. The patient is competent. The risks and benefits of the procedure and the sedation options and risks were discussed with the patient. All questions were answered and informed consent was obtained. Patient identification and proposed procedure were verified by the physician in the pre-procedure area. Mental Status Examination: alert and oriented. Airway Examination: normal oropharyngeal airway and neck mobility. Respiratory Examination: clear to auscultation. CV Examination: normal. Prophylactic Antibiotics: The patient does not require prophylactic antibiotics. Prior Anticoagulants: The patient has taken no anticoagulant or antiplatelet agents. ASA Grade Assessment: III - A patient with severe systemic disease. After reviewing the risks and benefits, the patient was deemed in satisfactory condition to undergo the procedure. The anesthesia plan was to use moderate sedation / analgesia (conscious sedation). Immediately prior to administration of medications, the patient was re-assessed for adequacy to receive sedatives. The heart rate, respiratory rate, oxygen saturations, blood pressure, adequacy of pulmonary ventilation, and response to care were monitored throughout the procedure. The physical status of the patient was re-assessed after the procedure. After I obtained informed consent, the scope was passed under direct vision. Throughout the procedure, the patient's blood pressure, pulse, and oxygen saturations were monitored continuously. The Colonoscope was introduced through the anus and advanced to the cecum, identified by the appendiceal orifice, IC valve and transillumination. The colonoscopy was performed without difficulty. The patient tolerated the procedure well. The quality of the bowel preparation was adequate to identify polyps greater than 5 mm in size. The appendiceal orifice and the rectum were photographed. Moderate Sedation: Moderate (conscious) sedation was personally administered by the endoscopist. The following parameters were monitored: oxygen saturation, heart rate, blood pressure, respiratory rate, EKG, adequacy of pulmonary ventilation, and response to care. Total physician intraservice time was 16 minutes. The administration of moderate sedation was initiated at 09:59. Findings: The perianal and digital rectal examinations were normal. A sessile non-obstructing medium-sized mass was found in the cecum. The mass was non-circumferential. The mass measured two cm in length. No bleeding was present. Biopsies were taken with a cold forceps for histology. Verification of patient identification for the specimen was done by the nurse. Estimated blood loss was minimal. Non-bleeding internal hemorrhoids were found. Impression: - Rule out malignancy, tumor in the cecum. Biopsied. - Non-bleeding internal hemorrhoids. Recommendation: - Repeat colonoscopy date to be determined after pending pathology results are reviewed for surveillance based on pathology results. - My office will telephone with pathology results in 1-2 weeks. - Patient has a contact number available for emergencies. The signs and symptoms of potential delayed complications were discussed with the patient. Return to normal activities tomorrow. Written discharge instructions were provided to the patient. - Continue present medications. - Resume previous diet. Procedure Code(s): --- Professional --- 50525, Colonoscopy, flexible; with biopsy, single or multiple 57384, 59, Moderate sedation services provided by the same physician or other qualified health customer care manager performing the diagnostic or therapeutic service that the sedation supports, requiring the presence of an independent trained observer to assist in the monitoring of the patient's level of consciousness and physiological status; initial 15 minutes of intraservice time, patient age 5 years or older Diagnosis Code(s): --- Professional --- K64.8, Other hemorrhoids D49.0, Neoplasm of unspecified behavior of digestive system Z86.0101, Personal h (more content not included)... Normal [facility] Colonoscopy Study observatio non 05-09-2025 [facility] Gastrointestinal Endoscopy Patient Name: Kellie Dozier Procedure Date: 05/09/2025 9:50 AM Date of : 1945 Admit Type: Outpatient Age: 80 Gender: Female Note Status: Finalized Procedure: Colonoscopy - screening high risk Indications: High risk colon cancer surveillance: Personal history of adenomatous colonic polyps Providers: Zari Sorenson MD Patient Profile: Refer to note in patient chart for documentation of history and physical. Last Colonoscopy: 2020. Referring Physician: Santo Love (Referring MD) Medicines: Midazolam 3 mg IV, Fentanyl 50 micrograms IV Complications: No immediate complications. Requesting Provider: Procedure: Pre-Anesthesia Assessment: - Prior to the procedure, a History and Physical was performed, and patient medications and allergies were reviewed. The patient is competent. The risks and benefits of the procedure and the sedation options and risks were discussed with the patient. All questions were answered and informed consent was obtained. Patient identification and proposed procedure were verified by the physician in the pre-procedure area. Mental Status Examination: alert and oriented. Airway Examination: normal oropharyngeal airway and neck mobility. Respiratory Examination: clear to auscultation. CV Examination: normal. Prophylactic Antibiotics: The patient does not require prophylactic antibiotics. Prior Anticoagulants: The patient has taken no anticoagulant or antiplatelet agents. ASA Grade Assessment: III - A patient with severe systemic disease. After reviewing the risks and benefits, the patient was deemed in satisfactory condition to undergo the procedure. The anesthesia plan was to use moderate sedation / analgesia (conscious sedation). Immediately prior to administration of medications, the patient was re-assessed for adequacy to receive sedatives. The heart rate, respiratory rate, oxygen saturations, blood pressure, adequacy of pulmonary ventilation, and response to care were monitored throughout the procedure. The physical status of the patient was re-assessed after the procedure. After I obtained informed consent, the scope was passed under direct vision. Throughout the procedure, the patient's blood pressure, pulse, and oxygen saturations were monitored continuously. The Colonoscope was introduced through the anus and advanced to the cecum, identified by the appendiceal orifice, IC valve and transillumination. The colonoscopy was performed without difficulty. The patient tolerated the procedure well. The quality of the bowel preparation was adequate to identify polyps greater than 5 mm in size. The appendiceal orifice and the rectum were photographed. Moderate Sedation: Moderate (conscious) sedation was personally administered by the endoscopist. The following parameters were monitored: oxygen saturation, heart rate, blood pressure, respiratory rate, EKG, adequacy of pulmonary ventilation, and response to care. Total physician intraservice time was 16 minutes. The administration of moderate sedation was initiated at 09:59. Findings: The perianal and digital rectal examinations were normal. A sessile non-obstructing medium-sized mass was found in the cecum. The mass was non-circumferential. The mass measured two cm in length. No bleeding was present. Biopsies were taken with a cold forceps for histology. Verification of patient identification for the specimen was done by the nurse. Estimated blood loss was minimal. Non-bleeding internal hemorrhoids were found. Impression: - Rule out malignancy, tumor in the cecum. Biopsied. - Non-bleeding internal hemorrhoids. Recommendation: - Repeat colonoscopy date to be determined after pending p (more content not included)... PROVATION [facility] Radiology Study observation (narrative) [facility] HISTORY PHYSICALon HISTORY PHYSICAL HNO ID: [id number] Author: ZARI SORENSON MD Service: General Surgery Author Type: Physician Type: H&P Filed: 05/09/2025 09:04 Note Text: HISTORY AND PHYSICAL Kellie Dozier : 1945 REFERRING PHYSICIAN: No referring provider defined for this encounter. CHIEF COMPLAINT: Patient presents with: Consult: For colonoscopy, previous polyps HPI: Kellie is a 80 year old female referred for endoscopy. Kellie notes due for screening colonoscopy- hx of polyps (2020). Kellie denies abdominal pain. Kellie denies diarrhea. Kellie notes occasional constipation. -uses mylanta with good releif Kellie denies a change in bowel habits. Kellie denies melena. Kellie denies bright red blood per rectum. Kellie denies hemorrhoids. Kellie denies family history of colon issues. Kellie denies heartburn. Kellie denies dysphagia. Kellie denies a history of ulcers/ peptic ulcer disease. Kellie's medical history is significant for T2DM, MARYCHUY and osteopenia. Kellie follows with [facility] for A.Fib, HTN, HLD AND CAD s/p stent x 4 (2008). Last OV 10/25, Last ECHO 07/26 EF: 55%. She denies CP, SOB, dizziness, palpitations, syncope, edema, recent hospitalizations Kellie has undergone prior endoscopy. Last colonoscopy was 09/[address] Calderon at [facility]. Sedation: Midazolam 3 mg IV, Fentanyl 50 micrograms IV Impression: - Three small polyps in the transverse colon,removed with a cold snare. Resected and retrieved.Clips (MR conditional) were placed. - Patent functional end-to-end colo-rectal anastomosis, characterized by healthy appearing mucosa. - The examination was otherwise normal on direct and retroflexion views. CONVERTED FINAL DIAGNOSIS Colon, transverse, polyps, biopsy Fragments of tubular adenoma and sessile serrated polyp. CURRENT MEDICATIONS Current Outpatient Medications Medication Sig SITagliptin phosphate (JANUVIA) 50 mg tablet Take 1 tablet by mouth once daily. losartan (COZAAR) 100 mg tablet Take 1 tablet by mouth once daily. insulin glargine 100 unit/mL (3 mL) Inject 30 Units subcutaneously every morning. Patient assistance med, may use flex pens glipiZIDE 2.5 mg tablet Take 1 tablet (2.5 mg) by mouth two times a day before meals. pravastatin (PRAVACHOL) 80 mg tablet Take 1 tablet by mouth once daily. verapamil ER (VERELAN PM) 300 mg CPCT Take 1 capsule by mouth daily at bedtime. cyanocobalamin (VITAMIN B-12) 1,000 mcg tab Take 1 tablet by mouth every other day. ondansetron orally disintegrating (ZOFRAN ODT) 4 mg disintegrating tablet Take 1 tablet by mouth every 6 hours as needed for nausea/vomiting. meclizine (ANTIVERT) 12.5 mg tab Take 1 tablet by mouth every 6 hours as needed (dizziness). nitroglycerin sublingual (NITROSTAT) 0.4 mg SL tablet Dissolve 1 tablet under the tongue as needed for chest pain. If no pain relief call 911. brimonidine (ALPHAGAN P) 0.15 % ophthalmic solution Use 1 Drop in both eyes two times a day. pyridoxine hcl(VITAMIN B-6 100 MG TAB) Take one(1) tablet daily. CALCIUM + D 600 MG-200 UNIT TAB Take 1 tablet by mouth once daily. insulin needles, DISPOSABLE, (PEN NEEDLE) 31 gauge x 5/16 Use as directed once daily as directed DM: yes Insulin: yes DX: E11.[address] (PROTONIX) 40 mg tablet Take 1 tablet by mouth every 12 hours. No current facility-administered medications for this visit. ALLERGIES: Amoxicillin, Fosamax [Alendronate Sodium], Metformin, and Shellfish PAST MEDICAL HISTORY PAST MEDICAL HISTORY Diagnosis Date Arthritis CAD (coronary artery disease) s/p stents CTS (carpal tunnel syndrome) Cystocele, midline 2006 Diverticulitis Duodenal ulcer 01/2024 Esophagitis, unspecified hiatal hernia, gastritis Essential hypertension, benign Gastrointestinal hemorrhage, unspecified gastrointestinal hemorrhage type 01/2024 History of colon polyps History of percutaneous left heart catheterization 06/24/2011 done at [facility], bilateral 12/16/2023 Hydroureter Lung nodule 01/2024 Malignant neoplasm of breast (female), unspecified site 1998 Breast cancer right Mixed hyperlipidemia Osteoarthritis of right knee Osteopenia 05/21/2010 Paroxysmal SVT (supraventricular tachycardia) (HCC) Dr Marcelo Persistent atrial fibrillation (HCC) Post-menopausal bleeding 2007 Serrated polyp of colon TUBERCULIN TEST REACTION NO TBC 12/16/2005 Tubular adenoma of colon Type 2 diabetes mellitus without complication, without long-term current use of insulin (HCC) Unspecified constipation Unspecified glaucoma(365.9) Glaucoma Low tension Urinary retention PAST SURGICAL HISTORY PAST SURGICAL HISTORY Procedure Laterality Date APPENDECTOMY BREAST BX NEEDLE CORE RIGHT 06/17/2008 U/S needle core bx right axilla BREAST SURGERY HX CMBND ANTERPOST COLPORRAPHY W/CYSTO 2004 Bladder and rectum repair COLON SURGERY HX Diverticular disease COLONOSCOPY 2007 J (more content not included)... Normal [facility] Pathology biopsy report Ephraim (Tiss)on 05-09-2025 AP DISCLAIMER Normal [facility] Comment on above: Order Comment: Jennie metz Type: TISSUE SPECIMENOrdering Facility: [facility] Address: [address] [place] [address] Result Comment: Linda sanchez Developed Test (LDT) Disclaimer: Performance characteristics of immunohistochemical, immunofluorescent, and chromogenic in-situ hybridization tests have been determined by the performing laboratory within [facility]'s [facility] Pathology and Laboratory Medicine Department ([facility], [facility], [facility], [facility], [facility], or [facility]) in a manner consistent with CLIA requirements. One or more of these tests may not have been cleared or approved by the FDA. [facility] is regulated under CLIA as qualified to perform high-complexity testing. These tests are used for clinical purposes. These should not be regarded as investigational or for research. Positive and negative controls stain appropriately. Performed By: #### 6 6121-5 ####[facility] LABCL[facility] [id number] [place] [address] [place] CASE REPORT Normal [facility] Comment on above: Order Comment: Jennie metz Type: TISSUE SPECIMENOrdering Facility: [facility] Address: [address] [place] [address] Result Comment: Surg [facility] Pathology Report Case: [id number] Authorizing Provider: Zari Sorenson MD Collected: 05/09/2025 10:10 AM Ordering Location: Ambulatory Surgery Received: 05/09/2025 04:30 PM Pathologist: Rod Reis MD Specimen: Colon, Cecum, Biopsy, Cecal mass bx Performed By: #### 6 6121-5 ####[facility] [id number] [address] [place] DIAGNOSIS COMMENT In the context of a mass, superficial biopsies may not be sales representative education courses of the entire lesion. Normal [facility] Comment on above: Order Comment: Jennie metz Type: TISSUE SPECIMENOrdering Facility: [facility] Address: [address] [place] [address] Performed By: #### 6 6121-5 ####[facility] [id number] [address] [place] FINAL DIAGNOSIS Normal [facility] Comment on above: Order Comment: Speci men Type: TISSUE SPECIMENOrdering Facility: [facility] Address: [address] [place] [address] Result Comment: Claudy Colby namcesar, cecum, biopsy: - Fragments of tubular adenoma, see comment SR/JR 05/10/2025 at 1514 EDT Performed By: #### 6 6121-5 ####[facility] [id number] [address] STATES OF [facility] FINAL PERFORMING LAB Normal [facility] Comment on above: Order Comment: Speci men Type: TISSUE SPECIMENOrdering Facility: [facility] Address: [address] [place] [address] Result Comment: Diag nostic interpretation performed at: [facility], [address] [place] [address] CLIA# [id number] Burial Vault Setter: Luigi Vu MD Performed By: #### 6 6121-5 ####[facility] [id number] [address] [place] GROSS DESCRIPTION Normal [facility] Comment on above: Order Comment: Speci men Type: TISSUE SPECIMENOrdering Facility: [facility] Address: [address] [place] [address] Result Comment: Claudy krueger, Cecum, Biopsy Received in formalin are multiple pieces of sylvester, soft tissue aggregating to 1.5 x 0.4 x 0.3 cm. Totally submitted in one cassette. DL May 10, 2025 2:22 AM Gross examination performed at [facility], [address] [place] [address] Performed By: #### 6 6121-5 ####[facility] ZHENG [id number] [address] OF [facility] CNOVon 05-04-2025 CNOV Office Visit (GENSWS ) YELENAKELLIE Armand ([id number]) 1945 F NFR Date Time Provider Department 05/04/25 10:30 AM ELIZABETH ORTEGA During your visit today, we recorded the following information about you: Pulse Respiration Blood pressure Weight 62/minute 14/minute 146/70 70.5 kg Elizabeth Ortega APRN.OBSTETRICIAN/GYNECOLOGIST 05/04/2025 10:49 AM Signed HISTORY AND PHYSICAL Kellie Dozier : 1945 REFERRING PHYSICIAN: No referring provider defined for this encounter. CHIEF COMPLAINT: Patient presents with: Consult: For colonoscopy, previous polyps HPI: Kellie is a 80 year old female referred for endoscopy. Kellie notes due for screening colonoscopy- hx of polyps (2020). Kellie denies abdominal pain. Kellie denies diarrhea. Kellie notes occasional constipation. -uses mylanta with good releif Kellie denies a change in bowel habits. Kellie denies melena. Kellie denies bright red blood per rectum. Kellie denies hemorrhoids. Kellie denies family history of colon issues. Kellie denies heartburn. Kellie denies dysphagia. Kellie denies a history of ulcers/ peptic ulcer disease. Kellie's medical history is significant for T2DM, MARYCHUY and osteopenia. Kellie follows with [facility] for A.Fib, HTN, HLD AND CAD s/p stent x 4 (2008). Last OV 10/25, Last ECHO 07/26 EF: 55%. She denies CP, SOB, dizziness, palpitations, syncope, edema, recent hospitalizations Kellie has undergone prior endoscopy. Last colonoscopy was 09/[address] Calderon at [facility]. Sedation: Midazolam 3 mg IV, Fentanyl 50 micrograms IV Impression: - Three small polyps in the transverse colon,removed with a cold snare. Resected and retrieved.Clips (MR conditional) were placed. - Patent functional end-to-end colo-rectal anastomosis, characterized by healthy appearing mucosa. - The examination was otherwise normal on direct and retroflexion views. CONVERTED FINAL DIAGNOSIS Colon, transverse, polyps, biopsy Fragments of tubular adenoma and sessile serrated polyp. Current Outpatient Medications Medication Sig SITagliptin phosphate (JANUVIA) 50 mg tablet Take 1 tablet by mouth once daily. losartan (COZAAR) 100 mg tablet Take 1 tablet by mouth once daily. insulin glargine 100 unit/mL (3 mL) Inject 30 Units subcutaneously every morning. Patient assistance med, may use flex pens glipiZIDE 2.5 mg tablet Take 1 tablet (2.5 mg) by mouth two times a day before meals. pravastatin (PRAVACHOL) 80 mg tablet Take 1 tablet by mouth once daily. verapamil ER (VERELAN PM) 300 mg CPCT Take 1 capsule by mouth daily at bedtime. cyanocobalamin (VITAMIN B-12) 1,000 mcg tab Take 1 tablet by mouth every other day. ondansetron orally disintegrating (ZOFRAN ODT) 4 mg disintegrating tablet Take 1 tablet by mouth every 6 hours as needed for nausea/vomiting. meclizine (ANTIVERT) 12.5 mg tab Take 1 tablet by mouth every 6 hours as needed (dizziness). nitroglycerin sublingual (NITROSTAT) 0.4 mg SL tablet Dissolve 1 tablet under the tongue as needed for chest pain. If no pain relief call 911. brimonidine (ALPHAGAN P) 0.15 % ophthalmic solution Use 1 Drop in both eyes two times a day. pyridoxine hcl(VITAMIN B-6 100 MG TAB) Take one(1) tablet daily. CALCIUM + D 600 MG-200 UNIT TAB Take 1 tablet by mouth once daily. insulin needles, DISPOSABLE, (PEN NEEDLE) 31 gauge x 5/16 Use as directed once daily as directed DM: yes Insulin: yes DX: E11.[address] (PROTONIX) 40 mg tablet Take 1 tablet by mouth every 12 hours. No current facility-administered medications for this visit. ALLERGIES: Amoxicillin, Fosamax [Alendronate Sodium], Metformin, and Shellfish PAST MEDICAL HISTORY Diagnosis Date Arthritis CAD (coronary artery disease) s/p stents CTS (carpal tunnel syndrome) Cystocele, midline 2006 Diverticulitis Duodenal ulcer 01/2024 Esophagitis, unspecified hiatal hernia, gastritis Essential hypertension, benign Gastrointestinal hemorrhage, unspecified gastrointestinal hemorrhage type 01/2024 History of colon polyps History of percutaneous left heart catheterization 06/24/2011 done at [facility] Hydronephrosis, bilateral 12/16/2023 Hydroureter Lung nodule 01/2024 Malignant neoplasm of breast (female), unspecified site 1998 Breast cancer right Mixed hyperlipidemia Osteoarthritis of right knee Osteopenia 05/21/2010 Paroxysmal SVT (supraventricular tachycardia) (HCC) Dr Marcelo Persistent atrial fibrillation (HCC) Post-menopausal bleeding 2006 Serrated polyp of colon TUBERCULIN TEST REACTION NO TBC 12/16/2005 Tubular adenoma of colon Type 2 diabetes mellitus without complication, without long-term current use of insulin (HCC) Unspecified constipation Unspecified glaucoma(365.9) Glaucoma Low tension Urinary retention PAST SURGICAL HISTORY Procedure Laterality Date APPENDECTOMY BREAST (more content not included)... Normal [facility] CNOVon 05-01-2025 [facility] KELLIE DOZIER ([id number]) 1945 F NFR Date Time Provider Department 05/01/25 1:40 PM RAISA MARADIAGA [facility] During your visit today, we recorded the following information about you: Pulse Respiration Blood pressure Weight 66/minute 16/minute 179/65 70.8 kg Raisa Maradiaga APRN.OBSTETRICIAN/GYNECOLOGIST 05/01/2025 8:16 PM Signed This is a 80 year old female who presents today with: Patient presents with: Recheck: 2 month follow up HISTORY OF PRESENT ILLNESS: Kellie Dozier is a 80 year old female. Patient presents with: Recheck: 2 month follow up Pt is following up on her blood pressure check up. Unable to bring her HBPM at this visit. HTN: Patient is compliant with meds Yes Monitors bp at home: Yes. Sometimes twice a day Denies side effects: No. Chest pain: No. Dyspnea: No. Edema: No. Palpitations: No. Syncope: No. Headache: No. Dizziness: No. PAST MEDICAL HISTORY: PAST MEDICAL HISTORY Diagnosis Date Arthritis CAD (coronary artery disease) s/p stents CTS (carpal tunnel syndrome) Cystocele, midline 2006 Diverticulitis Duodenal ulcer 01/2024 Esophagitis, unspecified hiatal hernia, gastritis Essential hypertension, benign Gastrointestinal hemorrhage, unspecified gastrointestinal hemorrhage type 01/2024 History of colon polyps [facility] 12/16/2023 Hydroureter Lung nodule 01/2024 Malignant neoplasm of breast (female), unspecified site 1998 Breast cancer right Mixed hyperlipidemia Osteoarthritis of right knee Osteopenia 05/21/2010 Paroxysmal SVT (supraventricular tachycardia) (HCC) Dr Marcelo Persistent atrial fibrillation (HCC) Post-menopausal bleeding 2006 Serrated polyp of colon TUBERCULIN TEST REACTION NO TBC 12/16/2005 Tubular adenoma of colon Type 2 diabetes mellitus without complication, without long-term current use of insulin (HCC) Unspecified constipation Unspecified glaucoma(365.9) Glaucoma Low tension Urinary retention PAST SURGICAL HISTORY Procedure Laterality Date APPENDECTOMY BREAST BX NEEDLE CORE RIGHT 06/17/2008 U/S needle core bx right axilla BREAST SURGERY HX CMBND ANTERPOST COLPORRAPHY W/CYSTO 2004 Bladder and rectum repair COLON SURGERY HX Diverticular disease COLONOSCOPY 2006 [facility] COLONOSCOPY 09/12/2014 no polyps, repeat [...] HX HEART CATHETERIZATION 2009 stent x 4 LAPS COLECTOMY PRTL W/COLOPXTSTMY LW ANAST 11/12/2011 lap low anterior resection sigmoid for diverticular disease LUMPECTOMY/RADIOTHERAPY DIAG MAMM/A10 1998 Right breast PAST SURGICAL HISTORY OF 2023 endoscopy STEREOTACTIC CORE BIOPSY 06/11/2007 LEFT TONSILLECTOMY HX TOTAL ABDOMINAL HYSTERECT W/WO RMVL TUBE OVARY 1975 Hysterectomy, ANN No BSO ALLERGIES Amoxicillin, Fosamax [Alendronate Sodium], Metformin, and Shellfish MEDICATIONS Current Outpatient Medications Medication Sig insulin glargine 100 unit/mL (3 mL) Inject 30 Units subcutaneously every morning. Patient assistance med, may use flex pens insulin needles, DISPOSABLE, (PEN NEEDLE) 31 gauge x 5/16 Use as directed once daily as directed DM: yes Insulin: yes DX: E11.9 losartan (COZAAR) 50 mg tablet Take 1.5 tablets by mouth once daily. SITagliptin phosphate (JANUVIA) 25 mg tablet Take 1 tablet by mouth once daily. glipiZIDE 2.5 mg tablet Take 1 tablet (2.5 mg) by mouth two times a day before meals. pravastatin (PRAVACHOL) 80 mg tablet Take 1 tablet by mouth once daily. verapamil ER (VERELAN PM) 300 mg CPCT Take 1 capsule by mouth daily at bedtime. cyanocobalamin (VITAMIN B-12) 1,000 mcg tab Take 1 tablet by mouth every other day. pantoprazole DR (PROTONIX) 40 mg tablet Take 1 tablet by mouth every 12 hours. ondansetron orally disintegrating (ZOFRAN ODT) 4 mg disintegrating tablet Take 1 tablet by mouth every 6 hours as needed for nausea/vomiting. meclizine (ANTIVERT) 12.5 mg tab Take 1 tablet by mouth every 6 hours as needed (dizziness). nitroglycerin sublingual (NITROSTAT) 0.4 mg SL tablet Dissolve 1 tablet under the tongue as needed for chest pain. If no pain relief call 911. brimonidine (ALPHAGAN P) 0.15 % ophthalmic solution Use 1 Drop in both eyes two times a day. pyridoxine hcl(VITAMIN B-6 100 MG TAB) Take one(1) tablet daily. C (more content not included)... Normal [facility] HbA1c (Bld)on 05-01-2025 Average glucose Estimated from glycated hemoglobin (Bld) [Mass/Vol] 186 mg/dL Normal [facility] Comment on above: Order Comment: Joshgeovanna isaías Type: BLOOD SPECIMENOrdering Facility: [facility] Address: [address] [place] [address] Result Comment: eAG: (Estimated average glucose) is a calculated value from HgbA1c and is sales representative education courses of the average blood glucose level in the last 2-3 month period. Performed By: #### 5 [id number] ####[facility] LABIA [id number] [place] [address] [place] HbA1c (Bld) [Mass fraction] 8.1 % High 4.3-5.6 [facility] Comment on above: Order Comment: Jennie metz Type: BLOOD SPECIMENOrdering Facility: [facility] Address: [address] [place] [address] Result Comment: Amer [place] Diabetes Association guidelines indicate that patients with HgbA1c in the range 5.7-6.4% are at increased risk for development of diabetes, and intervention by lifestyle modification may be beneficial. HgbA1c greater or equal to 6.5% is considered diagnostic of diabetes. Performed By: #### 5 [id number] ####[facility] LABIA [id number] [address] [facility] CNOVon 03-07-2025 [facility] KELLIE DOZIER ([id number]) 1945 F NFR Date Time Provider Department 03/07/25 11:00 AM RAISA MARADIAGA During your visit today, we recorded the following information about you: Pulse Respiration Blood pressure 55/minute 16/minute 133/62 Raisa Maradiaga APRN.OBSTETRICIAN/GYNECOLOGIST 03/07/2025 11:18 AM Signed Continue taking your losartan by splitting the 50-mg tablets to take 1? tablets daily as prescribed. Continue checking your blood sugar levels each morning and at night so we can better track your readings. -Send me a Videdressing message with the medication you are referring to. Raisa Maradiaga APRN.OBSTETRICIAN/GYNECOLOGIST 03/07/2025 12:51 PM Signed This is a 79 year old female who presents today with: Kellie is an 79-year-old female with a history of HTN and diabetes, presenting for follow-up. HISTORY OF PRESENT ILLNESS: Hypertension: - Recent increase in losartan to 75 mg daily; Kellie has been taking only 50 mg daily. - Reports BP readings all over the place, with one reading over 200 mmHg. - Able to split tablets; prefers to continue this method. Diabetes: - Restarted sitagliptin in December; previously took it in 9212-9696. - Currently taking glipizide 2.5 mg BID. - Discontinued Invokana due to cost. - Monitoring blood glucose BID (morning and evening). - Morning readings: Lowest 98 mg/dL, typically 120-140 mg/dL. - Evening readings: Lowest 140 mg/dL, typically in the 200s. - Denies episodes of hypoglycemia. PAST MEDICAL HISTORY: PAST MEDICAL HISTORY Diagnosis Date Arthritis CAD (coronary artery disease) s/p stents CTS (carpal tunnel syndrome) Cystocele, midline 2006 Diverticulitis Duodenal ulcer 01/2024 Esophagitis, unspecified hiatal hernia, gastritis Essential hypertension, benign Gastrointestinal hemorrhage, unspecified gastrointestinal hemorrhage type 01/2024 History of colon polyps History of [facility] 12/16/2023 Hydroureter Lung nodule 01/2024 Malignant neoplasm of breast (female), unspecified site 1998 Breast cancer right Mixed hyperlipidemia Osteoarthritis of right knee Osteopenia 05/21/2010 Paroxysmal SVT (supraventricular tachycardia) (HCC) Dr Marcelo Persistent atrial fibrillation (HCC) Post-menopausal bleeding 2006 TUBERCULIN TEST REACTION NO TBC 12/16/2005 Type 2 diabetes mellitus without complication, without long-term current use of insulin (HCC) Unspecified constipation Unspecified glaucoma(365.9) Glaucoma Low tension Urinary retention PAST SURGICAL HISTORY Procedure Laterality Date APPENDECTOMY BREAST BX NEEDLE CORE RIGHT 06/17/2008 U/S needle core bx right axilla BREAST SURGERY HX CMBND ANTERPOST COLPORRAPHY W/CYSTO 2004 Bladder and rectum repair COLON SURGERY HX Diverticular disease COLONOSCOPY 2006 [place] COLONOSCOPY 09/12/2014 no polyps, [...] 11/13/2016 EGD EYE SURGERY HX HEART CATHETERIZATION 2008 stent x 4 LAPS COLECTOMY PRTL W/COLOPXTSTMY LW ANAST 11/12/2011 lap low anterior resection sigmoid for diverticular disease LUMPECTOMY/RADIOTHERAPY DIAG MAMM/A10 1998 Right breast PAST SURGICAL HISTORY OF 2023 endoscopy STEREOTACTIC CORE BIOPSY 06/11/2007 LEFT TONSILLECTOMY HX TOTAL ABDOMINAL HYSTERECT W/WO RMVL TUBE OVARY 1975 Hysterectomy, ANN No BSO ALLERGIES Amoxicillin, Fosamax [Alendronate Sodium], Metformin, and Shellfish MEDICATIONS Current Outpatient Medications Medication Sig insulin glargine 100 unit/mL (3 mL) Inject 30 Units subcutaneously every morning. Patient assistance med, may use flex pens insulin needles, DISPOSABLE, (PEN NEEDLE) 31 gauge x 5/16 Use as directed once daily as directed DM: yes Insulin: yes DX: E11.9 losartan (COZAAR) 50 mg tablet Take 1.5 tablets by mouth once daily. SITagliptin phosphate (JANUVIA) 25 mg tablet Take 1 tablet by mouth once daily. glipiZIDE 2.5 mg tablet Take 1 tablet (2.5 mg) by mouth two times a day before meals. pravastatin (PRAVACHOL) 80 mg tablet Take 1 tablet by mouth once daily. verapamil ER (VERELAN PM) 300 mg CPCT Take 1 capsule by mouth daily at bedtime. cyanocobalamin (VITAMIN B-12) 1,000 mcg tab Take 1 tablet by mouth every other day. pantoprazole DR (PROTONIX) 40 mg tablet Take 1 tablet by mouth every 12 hours. ondansetron orally disintegrating ( (more content not included)... Normal [facility] ALBUMIN/CREATININE RATIO, UR INEon 02-08-2025 Albumin DL <= 20 mg/L (U) [Mass/Vol] mg/L mg/L [facility] Albumin/Creatinine (U) [Mass ratio] [facility] Comment on above: Not calculated Adult Male and Female Nephrotic Criteria: <30 mg/g is considered normal to mildly increased 30-300 mg/g is considered moderately increased >300 mg/g is considered severely increased KDIGO. (2013). KDIGO 2012 Clinical Practice Guideline for the Evaluation and Management of Chronic Kidney Disease. Official Journal of the International Society of Nephrology, 3(1), 1-150. Creatinine (U) [Mass/Vol] 9.7 mg/dL Low 20.0 - 300.0 mg/dL [facility] Interpretation and review of laboratory results Abnormal [facility] ALBUMIN/CREATININE RATIO, UR INEon 02-07-2025 Albumin DL <= 20 mg/L (U) [Mass/Vol] mg/dL Normal [facility] Comment on above: Order Comment: Speci men Type: URINE SPECIMENOrdering Facility: [facility] Address: [address] [place] [address] Performed By: #### U ACR ####[facility] LABCLIA [id number] [address] [facility] Albumin/Creatinine (U) [Mass ratio] Normal [facility] Comment on above: Order Comment: Speci men Type: URINE SPECIMENOrdering Facility: [facility] Address: [address] [place] [address] Result Comment: Not calculated Adult Male and Female Nephrotic Criteria: <30 mg/g is considered normal to mildly increased 30-300 mg/g is considered moderately increased >300 mg/g is considered severely increased KDIGO. (2013). KDIGO 2012 Clinical Practice Guideline for the Evaluation and Management of Chronic Kidney Disease. Official Journal of the International Society of Nephrology, 3(1), 1-150. Performed By: #### U ACR ####[facility] LABCLIA [id number] [address] [place] Creatinine (U) [Mass/Vol] 9.7 mg/dL Low 20.0-300.0 [facility] Comment on above: Order Comment: Speci men Type: URINE SPECIMENOrdering Facility: [facility] Address: [address] [place] [address] Performed By: #### U ACR ####[facility] LABCLIA [id number] [place] [address] [place] CNOVon 02-07-2025 CNOV Office Visit ([facility] ) KELLIE DOZIER ([id number]) 1945 F NFR Date Time Provider Department 02/07/25 11:00 AM [facility] During your visit today, we recorded the following information about you: Pulse Respiration Blood pressure Weight 64/minute 16/minute 166/67 69.9 kg Raisa Maradiaga APRN.CNP 02/07/2025 11:29 AM Addendum - Increase Losartan dosage to 75 mg daily by taking one and a half of the 50 mg tablets each day. - Monitor your blood pressure at home regularly and record the readings. - Submit your blood pressure readings to the clinic. - Continue taking Januvia, Glipizide, and insulin as prescribed. - Check your blood sugar levels twice daily: once in the morning before eating and once before bedtime. - Recheck an A1c test in 3 months to monitor your blood sugar control. - Maintain a healthy diet and exercise routine to manage fatty liver disease. - Follow up with the clinic in one month for a blood pressure recheck. Raisa Maradiaga APRN.CNP 02/07/2025 6:10 PM Signed This is a 79 year old female who presents today with: Kellie is an 79-year-old female with a history of DM, HTN, and hepatic steatosis, presenting for follow-up. HISTORY OF PRESENT ILLNESS: Diabetes Mellitus: - Blood glucose levels remain elevated despite medication adherence. - recently started januvia. Unable to get GLPs or jardiance d/t cost. - Monitors blood glucose twice daily: fasting in the morning and before bedtime. - Morning readings occasionally as low as 88 mg/dL; evening readings consistently in the 200s mg/dL. - Previously took Jardiance and Trulicity but discontinued due to high cost. Hypertension: - Currently taking losartan 50 mg daily. - Adherent to medication regimen. - Has not checked blood pressure at home for the past two weeks. - Denies chest pain, palpitations, or dyspnea. Hepatic Steatosis: - Recent ultrasound showed hepatic steatosis. PAST MEDICAL HISTORY: PAST MEDICAL HISTORY Diagnosis Date Arthritis CAD (coronary artery disease) s/p stents CTS (carpal tunnel syndrome) Cystocele, midline 2006 Diverticulitis Duodenal ulcer 01/2024 Esophagitis, unspecified hiatal hernia, gastritis Essential hypertension, benign Gastrointestinal hemorrhage, unspecified gastrointestinal hemorrhage type 01/2024 History of colon polyps [facility] 12/16/2023 Hydroureter Lung nodule 01/2024 Malignant neoplasm of breast (female), unspecified site 1998 Breast cancer right Mixed hyperlipidemia Osteoarthritis of right knee Osteopenia 05/21/2010 Paroxysmal SVT (supraventricular tachycardia) (HCC) Dr Marcelo Persistent atrial fibrillation (HCC) Post-menopausal bleeding 2006 TUBERCULIN TEST REACTION NO TBC 12/16/2005 Type 2 diabetes mellitus without complication, without long-term current use of insulin (HCC) Unspecified constipation Unspecified glaucoma(365.9) Glaucoma Low tension Urinary retention PAST SURGICAL HISTORY Procedure Laterality Date APPENDECTOMY BREAST BX NEEDLE CORE RIGHT 06/17/2008 U/S needle core bx right axilla BREAST SURGERY HX CMBND ANTERPOST COLPORRAPHY W/CYSTO 2004 Bladder and rectum repair COLON SURGERY HX Diverticular disease COLONOSCOPY 2006 [place] COLONOSCOPY 09/12/2014 no polyps, repeat due 2019 [...] HX HEART CATHETERIZATION 2009 stent x 4 LAPS COLECTOMY PRTL W/COLOPXTSTMY LW ANAST 11/12/2011 lap low anterior resection sigmoid for diverticular disease LUMPECTOMY/RADIOTHERAPY DIAG MAMM/A10 1998 Right breast PAST SURGICAL HISTORY OF 2023 endoscopy STEREOTACTIC CORE BIOPSY 06/11/2007 LEFT TONSILLECTOMY HX TOTAL ABDOMINAL HYSTERECT W/WO RMVL TUBE OVARY 1975 Hysterectomy, ANN No BSO ALLERGIES Amoxicillin, Fosamax [Alendronate Sodium], Metformin, and Shellfish MEDICATIONS Current Outpatient Medications Medication Sig losartan (COZAAR) 50 mg tablet Take 1.5 tablets by mouth once daily. SITagliptin phosphate (JANUVIA) 25 mg tablet Take 1 tablet by mouth once daily. glipiZIDE 2.5 mg tablet Take 1 tablet (2.5 mg) by mouth two times a day before meals. pravastatin (PRAVACHOL) 80 mg tablet Take 1 tablet by mouth once daily. verapamil ER (VERELAN PM) 300 mg CPCT Take 1 capsule by mouth daily at bedtime. cyanoc (more content not included)... Normal [facility] 02-07-2025 RAEANN Telephone (ARABELLA) KELLIE DOZIER ([id number]) 1945 F NFR Date Time Provider Department 02/07/25 RAISA MARADIAGA During your visit today, we recorded the following information about you: Raisa Maradiaga APRN.CNP 02/07/2025 6:09 PM Signed Can we please fax today's office note to [facility] so they are aware of recent medication changes. Raisa Maradiaga APRN.OBSTETRICIAN/GYNECOLOGIST Brittney Hinton LPN 02/08/2025 11:00 AM Signed OV note faxed to [facility]. Brittney Hinton LPN Allergies As of Date: 02/07/2025 Noted Allergy Reaction AMOXICILLIN 07/23/2007 6 - Diarrhea FOSAMAX (ALENDRONATE SODIUM) 06/04/2018 14 - Other: See Comments Comments: myalgia METFORMIN 04/02/2007 6 - Diarrhea Comments: With IR and ER forms SHELLFISH 06/17/2008 6 - Diarrhea 11 - Vomiting Date Reviewed: 02/07/2025 Reviewed by: Brittney Hinton LPN - Fully Assessed Prescriptions as of 02/08/2025 - losartan (COZAAR) 50 mg tablet Take 1.5 tablets by mouth once daily. - SITagliptin phosphate (JANUVIA) 25 mg tablet Take 1 tablet by mouth once daily. - glipiZIDE 2.5 mg tablet Take 1 tablet (2.5 mg) by mouth two times a day before meals. - pravastatin (PRAVACHOL) 80 mg tablet Take 1 tablet by mouth once daily. - verapamil ER (VERELAN PM) 300 mg CPCT Take 1 capsule by mouth daily at bedtime. - cyanocobalamin (VITAMIN B-12) 1,000 mcg tab Take 1 tablet by mouth every other day. - insulin glargine 100 unit/mL (3 mL) Inject 30 Units subcutaneously every morning. Patient assistance med, may use flex pens - pantoprazole DR (PROTONIX) 40 mg tablet Take 1 tablet by mouth every 12 hours. - ondansetron orally disintegrating (ZOFRAN ODT) 4 mg disintegrating tablet Take 1 tablet by mouth every 6 hours as needed for nausea/vomiting. - meclizine (ANTIVERT) 12.5 mg tab Take 1 tablet by mouth every 6 hours as needed (dizziness). - nitroglycerin sublingual (NITROSTAT) 0.4 mg SL tablet Dissolve 1 tablet under the tongue as needed for chest pain. If no pain relief call 911. - insulin needles, DISPOSABLE, (PEN NEEDLE) 31 gauge x 5/16 ndle Use as directed once daily as directed DM: yes Insulin: yes DX: E11.9 - brimonidine (ALPHAGAN P) 0.15 % ophthalmic solution Use 1 Drop in both eyes two times a day. - pyridoxine hcl(VITAMIN B-6 100 MG TAB) Take one(1) tablet daily. - CALCIUM + D 600 MG-200 UNIT TAB Take 1 tablet by mouth once daily. Problem List As Of Date 02/07/2025 Noted Resolved TUBERCULIN TEST REACTION NO TBC [...] [I*06/12/2009 10/02/2022 Osteopenia [M85.80] 05/21/2010 Breast cancer (HCC) [C50.919] 02/18/2011 04/12/2024 Paroxysmal SVT (supraventricular tachycardia) (* Osteoarthritis of right knee [M17.11] CTS (carpal tunnel syndrome) [G56.00] 06/04/2018 Constipation [K59.00] 10/14/2011 10/02/2022 Unspecified constipation [K59.00] 10/17/2011 03/17/2019 Benign neoplasm of colon [D12.6] 10/17/2011 10/02/2022 Diverticulitis [K57.92] 10/24/2011 10/02/2022 half-way current use of anticoagulant [Z79.01]01/10/2017 07/13/2024 Persistent atrial fibrillation (HCC) [I48.19] 01/10/2017 Tendonitis, Achilles, left [M76.62] 03/26/2018 06/04/2018 Tendonitis, Achilles, right [M76.61] 03/26/2018 06/04/2018 Nonrheumatic mitral valve regurgitation [I34.0] 06/17/2021 History of colon polyps [Z86.0100] Iron deficiency anemia due to chronic blood los*01/07/2024 Lung nodule [R91.1] 02/22/2024 Granulomatous disease (HCC) [D71] 02/22/2024 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] 02/22/2024 History of breast cancer [Z85.3] 04/12/2024 History of GI bleed [Z87.19] 04/12/2024 Encounter Status:Closed by BRITTNEY HINTON on 02/08/25 [facility] KELLIE DOZIER ([id number]) 1945 F NFR Date Time Provider Department 02/07/25 [facility] During your visit today, we recorded the following information about you: Raisa Maradiaga APRN.OBSTETRICIAN/GYNECOLOGIST 02/07/2025 6:10 PM Signed Enrico Pate, Is there anyway to check to see if Kellie is a candidate for any manufacture programs for either a GLP1 (ie trulicity, ozempic, mounjaro) or jardiance? Thanks, Herlinda Mittal, [facility] [facility] [place]09[place]2025 7:57 AM Signed Don has available assistance through [employer]. Sw can speak with patient regarding Yony Nordisk PAP guidelines. Herlinda Dickinson, [facility] [place]09/2025 9:12 AM Signed Rambo left message for patient to return call to discuss below prescription assistance needs. Herlinda Dickinson [employer] 02/15/2025 11:54 AM Signed Rambo left 2nd message to have call returned to discuss prescription assistance needs noted below. Allergies As of Date: 02/07/2025 Noted Allergy Reaction AMOXICILLIN 07/23/2007 6 - Diarrhea FOSAMAX (ALENDRONATE SODIUM) 06/04/2018 14 - Other: See Comments Comments: myalgia METFORMIN 04/02/2007 6 - Diarrhea Comments: With IR and ER forms SHELLFISH 06/17/2008 6 - Diarrhea 11 - Vomiting Date Reviewed: 02/07/2025 Reviewed by: Brittney Hinton LPN - Fully Assessed Prescriptions as of 07/26/2025 - peg 3350-Electrolytes (GOLYTELY) 236-22.74-6.74 -5.86 gram suspension Refer to printed prep instructions from your provider. - glipiZIDE 2.5 mg tablet Take 1 tablet by mouth two times a day before meals. - losartan (COZAAR) 100 mg tablet Take 1 tablet by mouth once daily. - SITagliptin phosphate (JANUVIA) 50 mg tablet Take 1 tablet by mouth once daily. - insulin glargine 100 unit/mL (3 mL) Inject 30 Units subcutaneously every morning. Patient assistance med, may use flex pens - insulin needles, DISPOSABLE, (PEN NEEDLE) 31 gauge x 5/16 Use as directed once daily as directed DM: yes Insulin: yes DX: E11.9 - pravastatin (PRAVACHOL) 80 mg tablet Take 1 tablet by mouth once daily. - verapamil ER (VERELAN PM) 300 mg CPCT Take 1 capsule by mouth daily at bedtime. - cyanocobalamin (VITAMIN B-12) 1,000 mcg tab Take 1 tablet by mouth every other day. - pantoprazole DR (PROTONIX) 40 mg tablet Take 1 tablet by mouth every 12 hours. - ondansetron orally disintegrating (ZOFRAN ODT) 4 mg disintegrating tablet Take 1 tablet by mouth every 6 hours as needed for nausea/vomiting. - meclizine (ANTIVERT) 12.5 mg tab Take 1 tablet by mouth every 6 hours as needed (dizziness). - nitroglycerin sublingual (NITROSTAT) 0.4 mg SL tablet Dissolve 1 tablet under the tongue as needed for chest pain. If no pain relief call 911. - brimonidine (ALPHAGAN P) 0.15 % ophthalmic solution Use 1 Drop in both eyes two times a day. - pyridoxine hcl(VITAMIN B-6 100 MG TAB) Take one(1) tablet daily. - CALCIUM + D 600 MG-200 UNIT TAB Take 1 tablet by mouth once daily. 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]01/10/2017 07/13/2024 Persistent atrial fibrillation (HCC) [I48.19] 01/10/2017 Tendonitis, Achilles, left [M76.62] 03/26/2018 06/04/2018 Tendonitis, Achilles, right [M76.61] 03/26/2018 06/04/2018 Nonrheumatic mitral valve regurgitation [I34.0] 06/17/2021 History of colon polyps [Z86.0100] Iron deficiency anemia due to chronic blood los*01/07/2024 Lung nodule [R91.1] 02/22/2024 Granulomatous disease (HCC) [D71] 02/22/2024 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 Her A1C went up to 8.3, which is too high. I would like to confirm what she is taking. It looks like she is taking the glipizide 2.5 mg twice daily and glargine 30 units every morning. It looks like she previously was on jardiance, but it became too expensive. It looks like Dr. Love changed that to invokana. I just want to confirm that this one wasn't covered as well and that she is not taking this prior to making adjustments. Raisa Maradiaga APRN.Leonela Shen MA 01/27/2025 10:43 AM Signed Patient was notified and is only doing glipizide 2.5 BID and insulin 30 units daily. Not taking Invokana due to lim. BRIANA Knight Christy, APRN.TOBY 01/27/2025 11:03 AM Signed Lets try starting her on januvia and see if this is covered by insurance. I went ahead and sent this into the pharmacy. Raisa Maradiaga APRN.Lisa Silvestre RN 01/27/2025 11:28 AM Signed Pt called and is notified of providers results and instructions. Pt voices understanding. Lisa Barber RN Allergies As of Date: 01/27/2025 Noted Allergy Reaction AMOXICILLIN 07/23/2007 6 - Diarrhea FOSAMAX (ALENDRONATE SODIUM) 06/04/2018 14 - Other: See Comments Comments: myalgia METFORMIN 04/02/2007 6 - Diarrhea Comments: With IR and ER forms SHELLFISH 06/17/2008 6 - Diarrhea 11 - Vomiting Date Reviewed: 12/13/2024 Reviewed by: Brittney Hinton LPN - Fully Assessed Reason for Visit: Results [95] Order(s):SITagliptin phosphate (JANUVIA) 25 mg tabletTake 1 tablet by mouth once daily.Disp: 30 tabletRfl: 3 Prescriptions as of 01/27/2025 - SITagliptin phosphate (JANUVIA) 25 mg tablet Take 1 tablet by mouth once daily. - glipiZIDE 2.5 mg tablet Take 1 tablet (2.5 mg) by mouth two times a day before meals. - pravastatin (PRAVACHOL) 80 mg tablet Take 1 tablet by mouth once daily. - verapamil ER (VERELAN PM) 300 mg CPCT Take 1 capsule by mouth daily at bedtime. - cyanocobalamin (VITAMIN B-12) 1,000 mcg tab Take 1 tablet by mouth every other day. - losartan (COZAAR) 50 mg tablet Take 1 tablet by mouth every afternoon. - insulin glargine 100 unit/mL (3 mL) Inject 30 Units subcutaneously every morning. Patient assistance med, may use flex pens - pantoprazole DR (PROTONIX) 40 mg tablet Take 1 tablet by mouth every 12 hours. - ondansetron orally disintegrating (ZOFRAN ODT) 4 mg disintegrating tablet Take 1 tablet by mouth every 6 hours as needed for nausea/vomiting. - meclizine (ANTIVERT) 12.5 mg tab Take 1 tablet by mouth every 6 hours as needed (dizziness). - nitroglycerin sublingual (NITROSTAT) 0.4 mg SL tablet Dissolve 1 tablet under the tongue as needed for chest pain. If no pain relief call 911. - insulin needles, DISPOSABLE, (PEN NEEDLE) 31 gauge x 5/16 ndle Use as directed once daily as directed DM: yes Insulin: yes DX: E11.9 - brimonidine (ALPHAGAN P) 0.15 % ophthalmic solution Use 1 Drop in both eyes two times a day. - pyridoxine hcl(VITAMIN B-6 100 MG TAB) Take one(1) tablet daily. - CALCIUM + D 600 MG-200 UNIT TAB Take 1 tablet by mouth once daily. Problem List As Of Date 01/27/2025 Noted Resolved TUBERCULIN TEST REACTION NO TBC [...] [I*06/12/2009 10/02/2022 Osteopenia [M85.80] 05/21/2010 Breast cancer (HCC) [C50.919] 02/18/2011 04/12/2024 Paroxysmal SVT (supraventricular tachycardia) (* Osteoarthritis of right knee [M17.11] CTS (carpal tunnel syndrome) [G56.00] 06/04/2018 Constipation [K59.00] 10/14/2011 10/02/2022 Unspecified constipation [K59.00] 10/17/2011 03/17/2019 Benign neoplasm of colon [D12.6] 10/17/2011 10/02/2022 Diverticulitis [K57.92] 10/24/2011 10/02/2022 half-way current use of anticoagulant [Z79.01]01/10/2017 07/13/2024 Persistent atrial fibrillation (HCC) [I48.19] 01/10/2017 Tendonitis, Achilles, left [M76.62] 03/26/2018 06/04/2018 Tendonitis, Achilles, right [M76.61] (more content not included)... Normal [facility] US ABD RIGHT UPPER QUADRANTo n 01-26-2025 US ABD RIGHT UPPER QUADRANT * * *Final Report* * * DATE OF EXAM: Jan 26 2025 2:13PM U 1032 - US ABD RIGHT UPPER QUADRANT / PROCEDURE REASON: Elevated alkaline phosphatase level * * * * Physician Interpretation * * * * EXAMINATION: RIGHT UPPER QUADRANT AND SPLEEN ULTRASOUND HISTORY: Elevated alkaline phosphatase level . TECHNIQUE: Sonography of the right upper quadrant and spleen was performed. Images were obtained and stored in a permanent archive. MQ: URUQ_2 COMPARISON: 02/18/2024 kidney ultrasound RESULT: Pancreas: Normal sonographic appearance. Portions obscured: tail Liver: Echotexture: Normal, homogeneous. Echogenicity: Diffusely increased Surface contour: Smooth Lesions: none Main portal vein is patent with normal flow direction. Biliary: No intrahepatic biliary duct dilation. CBD: 0.4 cm at the hilum. Gallbladder: Normal caliber -Contents: No cholelithiasis -Wall: Normal -Other: No pericholecystic fluid. Right Kidney: No hydronephrosis. 1.5 cm cyst has not increased in size. Ascites: None. Spleen: The craniocaudal length of the spleen is 8.1 cm , normal. There are no splenic lesions. Left Kidney: No hydronephrosis. - IMPRESSION: Hepatic steatosis. No biliary ductal dilatation. The spleen is normal size. Director [employer]: SU Transcribe Date/Time: Jan 28 2025 6:33A Dictated by : KERI MILLER MD This examination was interpreted and the report reviewed and electronically signed by: KERI MILLER MD on Jan 28 2025 6:35AM EST [id number] Normal [facility] US ABD SPLEEN -NBon 01-27-20 US ABD SPLEEN -NB * * *Final Report* * * DATE OF EXAM: Jan 26 2025 2:13PM WRU 1232 - US ABD SPLEEN -NB / PROCEDURE REASON: Elevated alkaline phosphatase level * * * * Physician Interpretation * * * * EXAMINATION: RIGHT UPPER QUADRANT AND SPLEEN ULTRASOUND HISTORY: Elevated alkaline phosphatase level . TECHNIQUE: Sonography of the right upper quadrant and spleen was performed. Images were obtained and stored in a permanent archive. MQ: URUQ_2 COMPARISON: 02/18/2024 kidney ultrasound RESULT: Pancreas: Normal sonographic appearance. Portions obscured: tail Liver: Echotexture: Normal, homogeneous. Echogenicity: Diffusely increased Surface contour: Smooth Lesions: none Main portal vein is patent with normal flow direction. Biliary: No intrahepatic biliary duct dilation. CBD: 0.4 cm at the hilum. Gallbladder: Normal caliber -Contents: No cholelithiasis -Wall: Normal -Other: No pericholecystic fluid. Right Kidney: No hydronephrosis. 1.5 cm cyst has not increased in size. Ascites: None. Spleen: The craniocaudal length of the spleen is 8.1 cm , normal. There are no splenic lesions. Left Kidney: No hydronephrosis. - IMPRESSION: Hepatic steatosis. No biliary ductal dilatation. The spleen is normal size. Director [facility] Transcribe Date/Time: Jan 28 2025 6:33A Dictated by : KERI MILLER MD This examination was interpreted and the report reviewed and electronically signed by: KERI MILLER MD on Jan 28 2025 6:35AM EST [id number] Normal [facility] Amy 01-25-2025 TOBYN Telephone (FAMWS) KELLIE DOZIER ([id number]) 1945 F NFR Date Time Provider Department 01/25/25 SATNO LOVE During your visit today, we recorded the following information about you: Santo Love MD 01/25/2025 9:09 AM Signed Alk phos elevation is all liver. Was up before. Can occur with fatty liver that is associated with dm. Check liver us to be on safe side. Tierney White MA 01/25/2025 10:07 AM Signed Message left for return call. BRIANA Perez Sherrie, RN 01/25/2025 4:06 PM Signed Patient given message below. Agreeable to US. Transferred to mill order scheduler. Tonia Stern RN Allergies As of Date: 01/25/2025 Noted Allergy Reaction AMOXICILLIN 07/23/2007 6 - Diarrhea FOSAMAX (ALENDRONATE SODIUM) 06/04/2018 14 - Other: See Comments Comments: myalgia METFORMIN 04/02/2007 6 - Diarrhea Comments: With IR and ER forms SHELLFISH 06/17/2008 6 - Diarrhea 11 - Vomiting Date Reviewed: 12/13/2024 Reviewed by: Brittney Hinton LPN - Fully Assessed Reason for Visit: Results [95] Primary Visit Diagnosis:Elevated alkaline phosphatase level [R74.8] Order(s):US ABD RIGHT UPPER QUADRANT [[id number]] Order #: [id number] FUTURE Prescriptions as of 01/25/2025 - glipiZIDE 2.5 mg tablet Take 1 tablet (2.5 mg) by mouth two times a day before meals. - pravastatin (PRAVACHOL) 80 mg tablet Take 1 tablet by mouth once daily. - verapamil ER (VERELAN PM) 300 mg CPCT Take 1 capsule by mouth daily at bedtime. - cyanocobalamin (VITAMIN B-12) 1,000 mcg tab Take 1 tablet by mouth every other day. - losartan (COZAAR) 50 mg tablet Take 1 tablet by mouth every afternoon. - canagliflozin (INVOKANA) 100 mg tab Take 1 tablet by mouth daily with breakfast. - insulin glargine 100 unit/mL (3 mL) Inject 30 Units subcutaneously every morning. Patient assistance med, may use flex pens - pantoprazole DR (PROTONIX) 40 mg tablet Take 1 tablet by mouth every 12 hours. - ondansetron orally disintegrating (ZOFRAN ODT) 4 mg disintegrating tablet Take 1 tablet by mouth every 6 hours as needed for nausea/vomiting. - meclizine (ANTIVERT) 12.5 mg tab Take 1 tablet by mouth every 6 hours as needed (dizziness). - nitroglycerin sublingual (NITROSTAT) 0.4 mg SL tablet Dissolve 1 tablet under the tongue as needed for chest pain. If no pain relief call 911. - insulin needles, DISPOSABLE, (PEN NEEDLE) 31 gauge x 5/16 ndle Use as directed once daily as directed DM: yes Insulin: yes DX: E11.9 - brimonidine (ALPHAGAN P) 0.15 % ophthalmic solution Use 1 Drop in both eyes two times a day. - pyridoxine hcl(VITAMIN B-6 100 MG TAB) Take one(1) tablet daily. - CALCIUM + D 600 MG-200 UNIT TAB Take 1 tablet by mouth once daily. Problem List As Of Date 01/25/2025 Noted Resolved TUBERCULIN TEST REACTION NO TBC [...] [I*06/12/2009 10/02/2022 Osteopenia [M85.80] 05/21/2010 Breast cancer (HCC) [C50.919] 02/18/2011 04/12/2024 Paroxysmal SVT (supraventricular tachycardia) (* Osteoarthritis of right knee [M17.11] CTS (carpal tunnel syndrome) [G56.00] 06/04/2018 Constipation [K59.00] 10/14/2011 10/02/2022 Unspecified constipation [K59.00] 10/17/2011 03/17/2019 Benign neoplasm of colon [D12.6] 10/17/2011 10/02/2022 Diverticulitis [K57.92] 10/24/2011 10/02/2022 half-way current use of anticoagulant [Z79.01]01/10/2017 07/13/2024 Persistent atrial fibrillation (HCC) [I48.19] 01/10/2017 Tendonitis, Achilles, left [M76.62] 03/26/2018 06/04/2018 Tendonitis, Achilles, right [M76.61] 03/26/2018 06/04/2018 Nonrheumatic mitral valve regurgitation [I34.0] 06/17/2021 History of colon polyps [Z86.0100] Iron deficiency anemia due to chronic blood los*01/07/2024 Lung nodule [R91.1] 02/22/2024 Granulomatous disease (HCC) [D71] 02/22/2024 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] 02/22/2024 History of breast cancer [Z85.3] 04/12/2024 History of GI bleed [Z87.19] 04/12/2024 Encounter Status:Closed by TONIA STERN on 01/25/25 Normal [facility] ALKALINE PHOSPHATASE ISOENZY MES (P)on 01-23-2025 ALK PHOS BONE % 33.6 % Normal 10.7-68.3 [facility] Comment on above: Order Comment: Speci men Type: BLOOD SPECIMENOrdering Facility: [facility] Address: [address] [place] [address] Performed By: #### A LKISOP ####[facility] LABCLIA [id number] [place] [address] [place] ALK PHOS LIVER % 66.4 % Normal 26.0-86.2 [facility] Comment on above: Order Comment: Speci men Type: BLOOD SPECIMENOrdering Facility: [facility] Address: [address] [place] [address] Performed By: #### A LKISOP ####[facility] LABCLIA [id number] [place] [address] [place] BONE FRACTION 37.6 U/L Normal 12.9-52.6 [facility] Comment on above: Order Comment: Speci men Type: BLOOD SPECIMENOrdering Facility: [facility] Address: [address] [place] [address] Performed By: #### A LKISOP ####[facility] LABCLIA [id number] [place] [address] [place] INTESTINE FRACTION 0.0 U/L Normal 0.0-16.3 [facility] Comment on above: Order Comment: Speci men Type: BLOOD SPECIMENOrdering Facility: [facility] Address: [address] [place] [address] Performed By: #### A LKISOP ####[facility] LABCLIA [id number] [place] [address] [place] LIVER FRACTION 74.4 U/L High 16.0-69.3 [facility] Comment on above: Order Comment: Speci men Type: BLOOD SPECIMENOrdering Facility: [facility] Address: [address] [place] [address] Performed By: #### A LKISOP ####[facility] LABCLIA [id number] [place] [id number] [facility] [place] Neutrophils/100 WBC (Bld) 0.0 % Normal 0.0-24.2 [facility] Comment on above: Order Comment: Speci men Type: BLOOD SPECIMENOrdering Facility: [facility] Address: [address] [place] [address] Performed By: #### A LKISOP ####[facility] LABCLIA [id number] [place] [address] [place] ALP SerPl-cCncon 01-23-2025 ALP [Catalytic activity/Vol] 112 U/L Normal 34-123 [facility] Comment on above: Order Comment: Jennie metz Type: BLOOD SPECIMENOrdering Facility: [facility] Address: [address] [place] [address] Performed By: #### 6 [id number] ####[facility] [id number] [place] [address] [place] HbA1c (Bld)on 01-23-2025 Average glucose Estimated from glycated hemoglobin (Bld) [Mass/Vol] 192 mg/dL Normal [facility] Comment on above: Order Comment: Jennie metz Type: BLOOD SPECIMENOrdering Facility: [facility] Address: [address] [place] [address] Result Comment: eAG: (Estimated average glucose) is a calculated value from HgbA1c and is sales representative education courses of the average blood glucose level in the last 2-3 month period. Performed By: #### 5 5454-3 ####[facility] [id number] [place] [address] [place] HbA1c (Bld) [Mass fraction] 8.3 % High 4.3-5.6 [facility] Comment on above: Order Comment: Jennie metz Type: BLOOD SPECIMENOrdering Facility: [facility] Address: [address] [place] [address] Result Comment: Amer [place] Diabetes Association guidelines indicate that patients with HgbA1c in the range 5.7-6.4% are at increased risk for development of diabetes, and intervention by lifestyle modification may be beneficial. HgbA1c greater or equal to 6.5% is considered diagnostic of diabetes. Performed By: #### 5 5454-3 ####[facility] [id number] [place] [id number] [place] CNOVon 12-13-2024 CNOV Office Visit (FAMPWS ) KELLIE DOZIER ([id number]) 1945 F NFR Date Time Provider Department 12/13/24 11:00 AM RAISA MARADIAGA During your visit today, we recorded the following information about you: Pulse Respiration Blood pressure 55/minute 16/minute 128/70 Raisa Maradiaga APRN.OBSTETRICIAN/GYNECOLOGIST 12/13/2024 5:11 PM Signed This is a 79 year old female who presents today with: Patient presents with: Follow Up HISTORY OF PRESENT ILLNESS: Kellie Dozier is a 79 year old female. Patient presents with: Follow Up Pt presents today for 1 month recheck of blood pressure. Was in a month ago, and BP was elevated. Advised to return in a month for recheck and bring home cuff to validate. She has been getting some intermittent ear pain. Both ears. Hearing okay. Left ear sounds cloudy. No popping/cracking. No recent sickness. Here -- 128/70 Home cuff -- 119/57 PAST MEDICAL HISTORY: PAST MEDICAL HISTORY Diagnosis Date Arthritis CAD (coronary artery disease) s/p stents CTS (carpal tunnel syndrome) Cystocele, midline 2006 Diverticulitis Duodenal ulcer 01/2024 Esophagitis, unspecified hiatal hernia, gastritis Essential hypertension, benign Gastrointestinal hemorrhage, unspecified gastrointestinal hemorrhage type 01/2024 History of colon polyps History of percutaneous left heart catheterization 06/24/2011 done at [facility] Hydronephrosis, bilateral 12/16/2023 Hydroureter Lung nodule 01/2024 Malignant neoplasm of breast (female), unspecified site 1998 Breast cancer right Mixed hyperlipidemia Osteoarthritis of right knee Osteopenia 05/21/2010 Paroxysmal SVT (supraventricular tachycardia) (HCC) Dr Marcelo Persistent atrial fibrillation (HCC) Post-menopausal bleeding 2007 TUBERCULIN TEST REACTION NO TBC 12/16/2005 Type 2 diabetes mellitus without complication, without long-term current use of insulin (HCC) Unspecified constipation Unspecified glaucoma(365.9) Glaucoma Low tension Urinary retention PAST SURGICAL HISTORY Procedure Laterality Date APPENDECTOMY BREAST BX NEEDLE CORE RIGHT 06/17/2008 U/S needle core bx right axilla BREAST SURGERY HX CMBND ANTERPOST COLPORRAPHY W/CYSTO 2004 Bladder and rectum repair COLON SURGERY HX Diverticular disease COLONOSCOPY 2006 [place] COLONOSCOPY 09/12/2014 no polyps, [...] 11/13/2016 EGD EYE SURGERY HX HEART CATHETERIZATION 2008 stent x 4 LAPS COLECTOMY PRTL W/COLOPXTSTMY LW ANAST 11/12/2011 lap low anterior resection sigmoid for diverticular disease LUMPECTOMY/RADIOTHERAPY DIAG MAMM/A10 1998 Right breast PAST SURGICAL HISTORY OF 2023 endoscopy STEREOTACTIC CORE BIOPSY 06/11/2007 LEFT TONSILLECTOMY HX TOTAL ABDOMINAL HYSTERECT W/WO RMVL TUBE OVARY 1976 Hysterectomy, ANN No BSO ALLERGIES Amoxicillin, Fosamax [Alendronate Sodium], Metformin, and Shellfish MEDICATIONS Current Outpatient Medications Medication Sig pravastatin (PRAVACHOL) 80 mg tablet Take 1 tablet by mouth once daily. verapamil ER (VERELAN PM) 300 mg CPCT Take 1 capsule by mouth daily at bedtime. cyanocobalamin (VITAMIN B-12) 1,000 mcg tab Take 1 tablet by mouth every other day. losartan (COZAAR) 50 mg tablet Take 1 tablet by mouth every afternoon. canagliflozin (INVOKANA) 100 mg tab Take 1 tablet by mouth daily with breakfast. (Patient not taking: Reported on 11/29/2024) insulin glargine 100 unit/mL (3 mL) Inject 30 Units subcutaneously every morning. Patient assistance med, may use flex pens glipiZIDE 2.5 mg tablet Take 1 tablet (2.5 mg) by mouth two times a day before meals. pantoprazole DR (PROTONIX) 40 mg tablet Take 1 tablet by mouth every 12 hours. ondansetron orally disintegrating (ZOFRAN ODT) 4 mg disintegrating tablet Take 1 tablet by mouth every 6 hours as needed for nausea/vomiting. meclizine (ANTIVERT) 12.5 mg tab Take 1 tablet by mouth every 6 hours as needed (dizziness). nitroglycerin sublingual (NITROSTAT) 0.4 mg SL tablet Dissolve 1 tablet under the tongue as needed for chest pain. If no pain relief call 911. insulin needles, DISPOSABLE, (PEN NEEDLE) 31 gauge x 5/16 ndle Use as directed once daily as directed DM: yes Insulin: yes DX: E11.9 brimonidine (ALPHAGAN P) 0.15 % ophthalmic solution Use 1 Drop in both eyes two times a day. pyridoxine hcl(VITAMIN B-6 100 MG TAB) Take one(1) tablet daily. CALCIUM + D (more content not included)... Normal [facility] KELLIE DOZIER ([id number]) 1945 F NFR Date Time Provider Department 12/07/24 S[facility]O LOVE [facility] During your visit today, we recorded the following information about you: Griselda Farley 12/07/2024 9:19 AM Signed Patient requesting medication that is on list verapamil ER (VERELAN PM) 300 mg CPCT () Patient last seen 11/19/24 Future visit scheduled: yes PHARMACY: [facility] 12/07/2024 9:54 AM Signed Prescription Refill Information The patient has been identified by name and date of : Yes Caregiver verified no other encounters exist for this prescription request: Yes Caregiver confirmed with patient/requestor that no other refills are due, in the near future, with this provider at this time: Yes The last office visit in the department: 11/19/2024 Does the patient have a future office visit with this provider/department: Yes, 12/13/2024 Requested Prescriptions Pending Prescriptions Disp Refills verapamil ER (VERELAN PM) 300 mg CPCT 30 capsule 11 Sig: Take 1 capsule by mouth daily at bedtime. EDVIN Rasmussen December 07, 2024 9:53 AM Raisa Maradiaga APRN.CNP 12/07/2024 12:49 PM Signed Script sent. Raisa Maradiaga APRN.CNP Allergies As of Date: 12/07/2024 Noted Allergy Reaction AMOXICILLIN 07/23/2007 6 - Diarrhea FOSAMAX (ALENDRONATE SODIUM) 06/04/2018 14 - Other: See Comments Comments: myalgia METFORMIN 04/02/2007 6 - Diarrhea Comments: With IR and ER forms SHELLFISH 06/17/2008 6 - Diarrhea 11 - Vomiting Date Reviewed: 11/29/2024 Reviewed by: Patti Bateman LPN - Fully Assessed Reason for Visit: requesting medication that is [Other] Order(s):verapamil ER (VERELAN PM) 300 mg CPCTTake 1 capsule by mouth daily at bedtime.Disp: 30 capsuleRfl: 11 Prescriptions as of 12/07/2024 - pravastatin (PRAVACHOL) 80 mg tablet Take 1 tablet by mouth once daily. - verapamil ER (VERELAN PM) 300 mg CPCT Take 1 capsule by mouth daily at bedtime. - cyanocobalamin (VITAMIN B-12) 1,000 mcg tab Take 1 tablet by mouth every other day. - losartan (COZAAR) 50 mg tablet Take 1 tablet by mouth every afternoon. - canagliflozin (INVOKANA) 100 mg tab Take 1 tablet by mouth daily with breakfast. - insulin glargine 100 unit/mL (3 mL) Inject 30 Units subcutaneously every morning. Patient assistance med, may use flex pens - glipiZIDE 2.5 mg tablet Take 1 tablet (2.5 mg) by mouth two times a day before meals. - pantoprazole DR (PROTONIX) 40 mg tablet Take 1 tablet by mouth every 12 hours. - ondansetron orally disintegrating (ZOFRAN ODT) 4 mg disintegrating tablet Take 1 tablet by mouth every 6 hours as needed for nausea/vomiting. - meclizine (ANTIVERT) 12.5 mg tab Take 1 tablet by mouth every 6 hours as needed (dizziness). - nitroglycerin sublingual (NITROSTAT) 0.4 mg SL tablet Dissolve 1 tablet under the tongue as needed for chest pain. If no pain relief call 911. - insulin needles, DISPOSABLE, (PEN NEEDLE) 31 gauge x 5/16 ndle Use as directed once daily as directed DM: yes Insulin: yes DX: E11.9 - brimonidine (ALPHAGAN P) 0.15 % ophthalmic solution Use 1 Drop in both eyes two times a day. - pyridoxine hcl(VITAMIN B-6 100 MG TAB) Take one(1) tablet daily. - CALCIUM + D 600 MG-200 UNIT TAB Take 1 tablet by mouth once daily. Problem List As Of Date 12/07/2024 Noted Resolved TUBERCULIN TEST REACTION NO TBC [...] [I*06/12/2009 10/02/2022 Osteopenia [M85.80] 05/21/2010 Breast cancer (HCC) [C50.919] 02/18/2011 04/12/2024 Paroxysmal SVT (supraventricular tachycardia) (* Osteoarthritis of right knee [M17.11] CTS (carpal tunnel syndrome) [G56.00] 06/04/2018 Constipation [K59.00] 10/14/2011 10/02/2022 Unspecified constipation [K59.00] 10/17/2011 03/17/2019 Benign neoplasm of colon [D12.6] 10/17/2011 10/02/2022 Diverticulitis [K57.92] 10/24/2011 10/02/2022 half-way current use of anticoagulant [Z79.01]01/10/2017 07/13/2024 Persistent atrial fibrillation (HCC) [I48.19] 01/10/2017 Tendonitis, Achilles, left [M76.62] 03/26/2018 06/04/2018 Tendonitis, Achilles, right [M76.61] 03/26/2018 06/04/2018 Nonrheumatic mitral valve regurgitation [I34.0] 06/17/2021 History of colon polyps [Z86.0 (more content not included)... Normal [facility] CNOVon 11-29-2024 CNOV Office Visit (PULMWS ) KELLIE DOZIER ([id number]) 1945 F NFR Date Time Provider Department 11/29/24 11:00 AM LEONELA BEAR PULMWS During your visit today, we recorded the following information about you: Pulse Respiration Blood pressure Weight 75/minute 17/minute 108/62 66.7 kg Leonela Bear MD 11/29/2024 12:00 PM Signed . Respiratory Andrew Note Patient name: Kellie Dozier PCP: Santo Love MD CC: Follow up chest CT HPI: Kellie Dozier 79 year old female never smoker with PMH significant for breast cancer 1998 (surgery, radiation, no hormonal therapy), CAD s/p stents, HTN, HLD, DM, AF on AC, GIB, history of TB as a child recently seen for incidental note of pulmonary nodules. 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 In light of breast cancer history recommended follow up chest CT. She has stable nodules, no new findings. She states she is doing well. No respiratory or constitutional symptoms. No cough, chest pain, SOB. DATA: Imaging / Diagnostic Studies: DATE OF EXAM: Aug 09 2024 10:20AM [facility] 0541 - CT CHEST WO IVCON / Comparison: CT chest 01/12/2024 RESULT: Limitations: None. Lines, tubes, and devices: None. Lung parenchyma and airways: Unchanged scattered subcentimeter pulmonary nodules. Scattered calcified granulomas. Decreased prominence of nodular thickening along the superior aspect of the right major fissure. No new suspicious pulmonary nodule. No acute airspace disease. Central airways are patent. Pleural space: No pleural effusion. No pleural thickening. Lower neck, lymph nodes, and mediastinum: The imaged thyroid gland is normal. No lymphadenopathy in the supraclavicular, axillary, mediastinal, or hilar regions. Heart, pericardium, and thoracic vessels: The thoracic aorta and main pulmonary artery are normal in caliber. The cardiac chambers are normal in size. Coronary artery atherosclerotic calcifications are noted, although the study is not optimized for coronary assessment. No pericardial effusion or thickening. Bones and soft tissues: No destructive bone lesion. Degenerative disease of the thoracic spine. Chest wall is unremarkable. Upper abdomen: No acute abnormality in the imaged upper abdomen. Multiple calcified splenic granulomas. Localizer images: No additional findings. IMPRESSION: No CT evidence of acute abnormality. Stable subcentimeter pulmonary nodules. Decreased pleural thickening along the superior aspect of the right major fissure. I personally reviewed the images which shows stable calcified and uncalcified nodules, focal subpleural fibrosis on right and splenic calcifications PAST MEDICAL HISTORY Diagnosis Date Arthritis CAD (coronary artery disease) s/p stents CTS (carpal tunnel syndrome) Cystocele, midline 2006 Diverticulitis Duodenal ulcer 01/2024 Esophagitis, unspecified hiatal hernia, gastritis Essential hypertension, benign Gastrointestinal hemorrhage, unspecified gastrointestinal hemorrhage type 01/2024 History of colon polyps [facility], [facility]2023 Hydroureter Lung nodule 01/2024 Malignant neoplasm of breast (female), unspecified site 1998 Breast cancer right Mixed hyperlipidemia Osteoarthritis of right knee Osteopenia 05/21/2010 Paroxysmal SVT (supraventricular tachycardia) (HCC) Dr Marcelo Persistent atrial fibrillation (HCC) Post-menopausal bleeding 2006 TUBERCULIN TEST REACTION NO TBC 12/16/2005 Type 2 diabetes mellitus without complication, without long-term current use of insulin (HCC) Unspecified constipation Unspecified glaucoma(365.9) Glaucoma Low tension Urinary retention ALLERGIES Allergen Reactions Amoxicillin Diarrhea Fosamax [Alendronat* Other: See Comments myalgia Metformin Diarrhea With IR and ER forms Shellfish Diarrhea, Vomiting cyanocobalamin (VITAMIN B-12) 1,000 mcg tab Take 1 tablet by mouth every other day. losartan (COZAAR) 50 mg tablet Take 1 tablet by mouth every afternoon. insulin glargine 100 unit/mL (3 mL) Inject 30 Units subcutaneously every morning. Patient assistance med, may use flex pens glipiZIDE 2.5 mg tablet Take 1 tablet (2.5 mg) by mouth two times a day before meals. pantoprazole DR (PROTONIX) 40 mg tablet Take 1 tablet by mouth every 12 hours. verapamil ER (VERELAN PM) 300 mg CPCT Take 1 capsule by mouth daily at bedtime. pravastatin (PRAVACHOL) 80 mg tablet Take 1 tablet by mouth once daily. ondansetron orally disintegrating (ZOFRAN ODT) 4 mg disintegrating tablet Take 1 tablet by mouth every 6 hours as needed for nausea/vomiting. meclizine (ANTIVERT) 12.5 mg tab Take 1 tablet by mouth every 6 hours as needed (dizziness). brimonidine (more content not included)... Normal [facility] 11-21-2024 [facility] Tele[facility] (FAMWS) KELLIE DOZIER ([id number]) 1945 F NFR Date Time Provider Department 11/21/24 SANTO LOVE During your visit today, we recorded the following information about you: Santo Love MD 11/21/2024 12:37 PM Signed Labs are stable. Alk phos is up. Check fractionated alk phos. Sugars are improving. Urine shows small amount of protein. Recheck urine in a month. If persists, may need to add a med to help. Lisa Barber RN 11/21/2024 1:04 PM Signed Called and left a voicemail for the Patient to call back and ask for a nurse to receive the providers message. KRISTIAN Cardenas Beth, LPN 11/21/2024 1:22 PM Signed Patient returned call and went over results, notes from Dr Love with understanding. Patient asking since her Vitamin B 12 is elevated, should she cut back or stop taking the B 12? Did you want to add fractionated Alk Phos order? Pending order Santo Love MD 11/21/2024 1:46 PM Signed Can cut her b12 to every other day Diana Duff OCCA 11/21/2024 1:55 PM Signed TC no answer. Left VM to return call. EDVIN Rasmussen Julia, LPN 11/23/2024 8:30 AM Signed Patient notified of new instructions for the B12. She did mention that the medication that you were going to prescribe for her blood sugar will be about $400 out of pocket for her. Asking if there is something different that she can try? Santo Love MD 11/23/2024 12:29 PM Signed Is she able to check with the pharmacist or her insurance company to see if there is a med in that class they cover. We changed from jardiance to invokana due to cost. I have no idea which one Is covered. Phyllis Gusman LPN 11/23/2024 12:48 PM Signed LEFT MESSAGE FOR PATIENT TO CALL OFFICE. Paola Jara MA 11/28/2024 10:26 AM Signed X2. Unable to reach patient. Left VM to return call to office. Please read below and advise. Paola Jara MA Allergies As of Date: 11/21/2024 Noted Allergy Reaction AMOXICILLIN 07/23/2007 6 - Diarrhea FOSAMAX (ALENDRONATE SODIUM) 06/04/2018 14 - Other: See Comments Comments: myalgia METFORMIN 04/02/2007 6 - Diarrhea Comments: With IR and ER forms SHELLFISH 06/17/2008 6 - Diarrhea 11 - Vomiting Date Reviewed: 11/19/2024 Reviewed by: Tierney White MA - Fully Assessed Reason for Visit: Results [95] Primary Visit Diagnosis:Microalbuminuria [R80.9] Other Visit Diagnosis:Elevated alkaline phosphatase level [R74.8] Order(s):[] ALBUMIN/CREATININE RATIO, URINE [SQUACR] Order #: [id number] FUTURE [] ALK PHOS ISOENZYM BL [SQALKISO] Order #: [id number] FUTURE cyanocobalamin (VITAMIN B-12) 1,000 mcg tabTake 1 tablet by mouth every other day.Disp: Rfl: Prescriptions as of 06/14/2025 - SITagliptin phosphate (JANUVIA) 50 mg tablet Take 1 tablet by mouth once daily. - losartan (COZAAR) 100 mg tablet Take 1 tablet by mouth once daily. - insulin glargine 100 unit/mL (3 mL) Inject 30 Units subcutaneously every morning. Patient assistance med, may use flex pens - insulin needles, DISPOSABLE, (PEN NEEDLE) 31 gauge x 5/16 Use as directed once daily as directed DM: yes Insulin: yes DX: E11.9 - glipiZIDE 2.5 mg tablet Take 1 tablet (2.5 mg) by mouth two times a day before meals. - pravastatin (PRAVACHOL) 80 mg tablet Take 1 tablet by mouth once daily. - verapamil ER (VERELAN PM) 300 mg CPCT Take 1 capsule by mouth daily at bedtime. - cyanocobalamin (VITAMIN B-12) 1,000 mcg tab Take 1 tablet by mouth every other day. - pantoprazole DR (PROTONIX) 40 mg tablet Take 1 tablet by mouth every 12 hours. - ondansetron orally disintegrating (ZOFRAN ODT) 4 mg disintegrating tablet Take 1 tablet by mouth every 6 hours as needed for nausea/vomiting. - meclizine (ANTIVERT) 12.5 mg tab Take 1 tablet by mouth every 6 hours as needed (dizziness). - nitroglycerin sublingual (NITROSTAT) 0.4 mg SL tablet Dissolve 1 tablet under the tongue as needed for chest pain. If no pain relief call 911. - brimonidine (ALPHAGAN P) 0.15 % ophthalmic solution Use 1 Drop in both eyes two times a day. - pyridoxine hcl(VITAMIN B-6 100 MG TAB) Take one(1) tablet daily. - CALCIUM + D 600 MG-200 UNIT TAB Take 1 tablet by mouth once daily. Problem List As Of Date 11/21/2024 Noted Resolved TUBERCULIN TEST REACTION NO TBC [795.5] 12/16/2005 Essential hypertension [I10] 12/16/2005 Hyperlipidemia [E78.5] 12/16/2005 Type 2 diabetes mellitus without complications *12/16/2005 OBESITY [E66.9] 12/16/2005 10/02/2022 GE REFLUX (GASTROESOPHAGEAL) [K21.9] 02/24/2007 HIATAL HERNIA [K44.9] 02/24/2007 02/18/2011 GASTRITIS ANTRAL( W/O Hemorrhage) [K29.60] 02/24/2007 02/18/2011 Esophagitis, unspecified [K20.90] 02/24/2007 02/18/2011 Herpes zoster with other nervous system complic*03/09/2007 03/05/2018 Abnormal mammogram, unspecified [R92.8] 05/17/2007 04 (more content not included)... Normal [facility] ALBUMIN/CREATININE RATIO, UR INEon 11-19-2024 Albumin DL <= 20 mg/L (U) [Mass/Vol] 44.2 mg/L Normal [facility] Comment on above: Order Comment: Speci men Type: URINE SPECIMENOrdering Facility: [facility] Address: [address] [place] [address] Performed By: #### U ACR ####[facility] LABCLIA [id number] [place] [address] [place] Albumin/Creatinine (U) [Mass ratio] 132 mg/g High <30 [facility] Comment on above: Order Comment: Speci men Type: URINE SPECIMENOrdering Facility: [facility] Address: [address] [place] [address] Result Comment: Adul t Male and Female Nephrotic Criteria: <30 mg/g is considered normal to mildly increased 30-300 mg/g is considered moderately increased >300 mg/g is considered severely increased KDIGO. (2013). KDIGO 2012 Clinical Practice Guideline for the Evaluation and Management of Chronic Kidney Disease. Official Journal of the International Society of Nephrology, 3(1), 1-150. Performed By: #### U ACR ####[facility] LABCLIA [id number] [place] [address] [place] Creatinine (U) [Mass/Vol] 33.6 mg/dL Normal 20.0-300.0 [facility] Comment on above: Order Comment: Speci men Type: URINE SPECIMENOrdering Facility: [facility] Address: [address] [place] [address] Performed By: #### U ACR ####[facility] LABCLIA [id number] [place] [address] [place] CBC W Auto Differential pane l (Bld)on 11-19-2024 Basophils (Bld) [#/Vol] 0.09 10*3/uL Normal <0.11 [facility] Comment on above: Order Comment: Speci men Type: BLOOD SPECIMENOrdering Facility: [facility] Address: [address] [place] [address] Performed By: #### 5 7021-8 ####[facility] LABCLIA [id number] [place] [address] [place] Basophils/100 WBC (Bld) 1.1 % Normal [facility] Comment on above: Order Comment: Speci men Type: BLOOD SPECIMENOrdering Facility: [facility] Address: [address] [place] [address] Performed By: #### 5 7021-8 ####[facility] LABCLIA [id number] [place] [address] [place] Differential cell count method Nom (Bld) Auto Normal [facility] Comment on above: Order Comment: Speci men Type: BLOOD SPECIMENOrdering Facility: [facility] Address: [address] [place] [address] Performed By: #### 5 7021-8 ####[facility] LABCLIA [id number] [place] [address] [place] Eosinophils (Bld) [#/Vol] 0.16 10*3/uL Normal <0.46 [facility] Comment on above: Order Comment: Speci men Type: BLOOD SPECIMENOrdering Facility: [facility] Address: [address] [place] [address] Performed By: #### 5 7021-8 ####[facility] LABCLIA [id number] [place] [address] [place] Eosinophils/100 WBC (Bld) 2.0 % Normal [facility] Comment on above: Order Comment: Speci men Type: BLOOD SPECIMENOrdering Facility: [facility] Address: [address] [place] [address] Performed By: #### 5 7021-8 ####[facility] LABCLIA [id number] [place] [address] [place] Erythrocyte distribution width (RBC) [Ratio] 13.9 % Normal 11.5-15.0 [facility] Comment on above: Order Comment: Speci men Type: BLOOD SPECIMENOrdering Facility: [facility] Address: [address] [place] [address] Performed By: #### 5 7021-8 ####[facility] LABCLIA [id number] [place] [address] [place] Hematocrit (Bld) [Volume fraction] 46.1 % High 36.0-46.0 [facility] Comment on above: Order Comment: Speci men Type: BLOOD SPECIMENOrdering Facility: [facility] Address: [address] [place] [address] Performed By: #### 5 7021-8 ####[facility] LABCLIA [id number] [place] [address] [place] Hemoglobin (Bld) [Mass/Vol] 14.6 g/dL Normal 11.5-15.5 [facility] Comment on above: Order Comment: Speci men Type: BLOOD SPECIMENOrdering Facility: [facility] Address: [address] [place] [address] Performed By: #### 5 7021-8 ####[facility] LABCLIA [id number] [place] [address] [place] Immature granulocytes (Bld) [#/Vol] 0.04 10*3/uL Normal <0.10 [facility] Comment on above: Order Comment: Speci men Type: BLOOD SPECIMENOrdering Facility: [facility] Address: [address] [place] [address] Performed By: #### 5 7021-8 ####[facility] LABCLIA [id number] [place] [address] [place] Immature granulocytes/100 WBC (Bld) 0.5 % Normal [facility] Comment on above: Order Comment: Speci men Type: BLOOD SPECIMENOrdering Facility: [facility] Address: [address] [place] [address] Performed By: #### 5 7021-8 ####[facility] LABCLIA [id number] [place] [address] [place] Lymphocytes (Bld) [#/Vol] 1.86 10*3/uL Normal 1.00-4.00 [facility] Comment on above: Order Comment: Speci men Type: BLOOD SPECIMENOrdering Facility: [facility] Address: [address] [place] [address] Performed By: #### 5 7021-8 ####[facility] LABCLIA [id number] [place] [address] [place] Lymphocytes/100 WBC (Bld) 23.4 % Normal [facility] Comment on above: Order Comment: Speci men Type: BLOOD SPECIMENOrdering Facility: [facility] Address: [address] [place] [address] Performed By: #### 5 7021-8 ####[facility] LABCLIA [id number] [place] [address] [place] MCH (RBC) [Entitic mass] 29.9 pg Normal 26.0-34.0 [facility] Comment on above: Order Comment: Speci men Type: BLOOD SPECIMENOrdering Facility: [facility] Address: [address] [place] [address] Performed By: #### 5 7021-8 ####[facility] LABIA [id number] [place] [address] [place] MCHC (RBC) [Mass/Vol] 31.7 g/dL Normal 30.5-36.0 [facility] Comment on above: Order Comment: Speci men Type: BLOOD SPECIMENOrdering Facility: [facility] Address: [address] [place] [address] Performed By: #### 5 7021-8 ####[facility] LABIA [id number] [place] [address] [place] MCV (RBC) [Entitic vol] 94.5 fL Normal 80.0-100.0 [facility] Comment on above: Order Comment: Speci men Type: BLOOD SPECIMENOrdering Facility: [facility] Address: [address] [place] [address] Performed By: #### 5 7021-8 ####[facility] LABIA [id number] [place] [address] [place] Monocytes (Bld) [#/Vol] 0.77 10*3/uL Normal <0.87 [facility] Comment on above: Order Comment: Speci men Type: BLOOD SPECIMENOrdering Facility: [facility] Address: [address] [place] [address] Performed By: #### 5 7021-8 ####[facility] LABCLIA [id number] [place] [address] [place] Monocytes/100 WBC (Bld) 9.7 % Normal [facility] Comment on above: Order Comment: Speci men Type: BLOOD SPECIMENOrdering Facility: [facility] Address: [address] [place] [address] Performed By: #### 5 7021-8 ####[facility] LABCLIA [id number] [place] [address] [place] Neutrophils (Bld) [#/Vol] 5.02 10*3/uL Normal 1.45-7.50 [facility] Comment on above: Order Comment: Speci men Type: BLOOD SPECIMENOrdering Facility: [facility] Address: [address] [place] [address] Performed By: #### 5 7021-8 ####[facility] LABCLIA [id number] [place] [address] [place] Neutrophils/100 WBC (Bld) 63.3 % Normal [facility] Comment on above: Order Comment: Speci men Type: BLOOD SPECIMENOrdering Facility: [facility] Address: [address] [place] [address] Performed By: #### 5 7021-8 ####[facility] LABCLIA [id number] [place] [address] [place] Nucleated RBC (Bld) [#/Vol] 10*3/uL Normal <0.01 [facility] Comment on above: Order Comment: Speci men Type: BLOOD SPECIMENOrdering Facility: [facility] Address: [address] [place] [address] Performed By: #### 5 7021-8 ####[facility] LABCLIA [id number] [place] [address] [place] Nucleated RBC/100 WBC (Bld) [Ratio] 0.0 /100 WBC Normal [facility] Comment on above: Order Comment: Speci men Type: BLOOD SPECIMENOrdering Facility: [facility] Address: [address] [place] [address] Performed By: #### 5 7021-8 ####[facility] LABCLIA [id number] [place] [address] [place] Platelet mean volume (Bld) [Entitic vol] 10.4 fL Normal 9.0-12.7 [facility] Comment on above: Order Comment: Speci men Type: BLOOD SPECIMENOrdering Facility: [facility] Address: [address] [place] [address] Performed By: #### 5 7021-8 ####[facility] LABCLIA [id number] [place] [address] [place] Platelets (Bld) [#/Vol] 246 10*3/uL Normal 150-400 [facility] Comment on above: Order Comment: Speci men Type: BLOOD SPECIMENOrdering Facility: [facility] Address: [address] [place] [address] Performed By: #### 5 7021-8 ####[facility] LABIA [id number] [place] [address] [place] RBC (Bld) [#/Vol] 4.88 10*6/uL Normal 3.90-5.20 [facility] Comment on above: Order Comment: Speci men Type: BLOOD SPECIMENOrdering Facility: [facility] Address: [address] [place] [address] Performed By: #### 5 7021-8 ####[facility] LABIA [id number] [place] [address] [place] WBC (Bld) [#/Vol] 7.94 10*3/uL Normal 3.70-11.00 [facility] Comment on above: Order Comment: Speci men Type: BLOOD SPECIMENOrdering Facility: [facility] Address: [address] [place] [address] Performed By: #### 5 7021-8 ####[facility] LABIA [id number] [place] [address] [place] CNOVon 11-19-2024 CNOV Office Visit (FAMPWS ) KELLIE DOZIER ([id number]) 1945 F NFR Date Time Provider Department 11/19/24 9:20 AM SANTO [facility] During your visit today, we recorded the following information about you: Pulse Blood pressure Weight Height 67/minute 170/84 66.7 kg 1.626 m Santo Love MD 11/19/2024 10:05 AM Signed Patient presents with: Follow Up HPI: Patient presents today for office visit for follow up. Follows with [facility]. Recently started on Losartan 50 mg daily. Lisinopril stopped. Caused coughing. Has been monitoring her BP at home. Stable. Denies chest pain and shortness of breath. Denies palpitations. Denies edema. BP is up today on arrival. but is angry with her insurance on arrival. Most have been ok. DM: States she can no longer afford Jardiance. Discussed trying another med in that class. Needs alternative. Continues taking Glipizide and Lantus. Checking her sugars BID. Up and down. HLD: No myalgias Note was copied and pasted, without alteration from previous ov: Diabetes: Checking blood glucose twice a day. Feels evening glucose is all over partially due to not eating at the same time every day. Insulin 30 units in the morning instead of the evening since she saw Kee[facility]. She brings in her sugar list. Her evening doses are higher. Was on trulicity but could not get it. They have been adjusting insulin instead. Can't take metformin as well. HTN: Patient is compliant with meds Yes Monitors bp at home: Yes. Denies side effects: Yes. Chest pain: No. Dyspnea: No. Edema: No. Palpitations: No. Syncope: No. Headache: No. Dizziness: No. Follows with pulmonary Will need annual follow up of renal cyst. Still sees [facility]. Mammogram was normal. MEDICATIONS: Current Outpatient Medications Medication Sig losartan (COZAAR) 50 mg tablet Take 1 tablet by mouth every afternoon. empagliflozin (JARDIANCE) 10 mg tablet Take 1 tablet by mouth daily with breakfast. insulin glargine 100 unit/mL (3 mL) Inject 30 Units subcutaneously every morning. Patient assistance med, may use flex pens glipiZIDE 2.5 mg tablet Take 1 tablet (2.5 mg) by mouth two times a day before meals. pantoprazole DR (PROTONIX) 40 mg tablet Take 1 tablet by mouth every 12 hours. verapamil ER (VERELAN PM) 300 mg CPCT Take 1 capsule by mouth daily at bedtime. pravastatin (PRAVACHOL) 80 mg tablet Take 1 tablet by mouth once daily. ondansetron orally disintegrating (ZOFRAN ODT) 4 mg disintegrating tablet Take 1 tablet by mouth every 6 hours as needed for nausea/vomiting. meclizine (ANTIVERT) 12.5 mg tab Take 1 tablet by mouth every 6 hours as needed (dizziness). nitroglycerin sublingual (NITROSTAT) 0.4 mg SL tablet [...] + D 600 MG-200 UNIT TAB Take 1 tablet by mouth once daily. lisinopril (ZESTRIL) 30 mg tablet Take 1 tablet by mouth once daily. (Patient not taking: Reported on 11/19/2024) No current facility-administered medications for this visit. ALLERGIES: ALLERGIES Allergen Reactions Amoxicillin Diarrhea Fosamax [Alendronat* Other: See Comments myalgia Metformin Diarrhea With IR and ER forms Shellfish Diarrhea, Vomiting PAST MEDICAL HISTORY Diagnosis Date Arthritis Breast cancer (HCC) 02/18/2011 CAD (coronary artery disease) s/p stents CORONARY ATHEROSCLER UNSPEC VESSEL 06/12/2009 CTS (carpal tunnel syndrome) Cystocele, midline 2007 Diverticulitis Duodenal ulcer 01/2024 Esophagitis, unspecified hiatal hernia, gastritis Essential hypertension, benign Gastrointestinal hemorrhage, unspecified gastrointestinal hemorrhage type 01/2024 History of colon polyps History of percutaneous left heart catheterization 06/24/2011 done at [facility] Hydronephrosis, bilateral 12/16/2023 Hydroureter Lung nodule 01/2024 Malignant neoplasm of breast (female), unspecified site 1998 Breast cancer right Mixed hyperlipidemia OBESITY 12/16/2005 Osteoarthritis of right knee Osteopenia 05/21/2010 Paroxysmal SVT (supraventricular tachycardia) (HCC) Dr Marcelo Persistent atrial fibrillation (HCC) Post-menopausal bleeding 2007 TUBERCULIN TEST REACTION NO TBC 12/16/2005 Type 2 diabetes mellitus without complication, without long-term current use of insulin (HCC) Unspecified constipation Unspecified glaucoma(365.9) Glaucoma Low tension Urinary retention PAST SURGIC (more content not included)... Normal [facility] Comprehensive metabolic 2000 panelon 11-19-2024 Albumin [Mass/Vol] 4.3 g/dL Normal 3.9-4.9 [facility] Comment on above: Order Comment: Speci men Type: BLOOD SPECIMENOrdering Facility: [facility] Address: [address] [place] [address] Performed By: #### 2 4323-8, 97558-1, 2132-07 ####[facility] [id number] [place] [address] [place] ALP [Catalytic activity/Vol] 126 U/L High 34-123 [facility] Comment on above: Order Comment: Speci men Type: BLOOD SPECIMENOrdering Facility: [facility] Address: [address] [place] [address] Performed By: #### 2 4323-8, 02677-5, 2132-07 ####[facility] [id number] [place] [address] [place] ALT [Catalytic activity/Vol] 20 U/L Normal 7-38 [facility] Comment on above: Order Comment: Speci men Type: BLOOD SPECIMENOrdering Facility: [facility] Address: [address] [place] [address] Performed By: #### 2 4323-8, 96009-0, 2132-07 ####[facility] [id number] [place] [address] [place] Anion gap [Moles/Vol] 11 mmol/L Normal 8-15 [facility] Comment on above: Order Comment: Speci men Type: BLOOD SPECIMENOrdering Facility: [facility] Address: [address] [place] [address] Performed By: #### 2 4323-8, 25762-2, 2132-07 ####[facility] [id number] [place] [address] [place] AST [Catalytic activity/Vol] 30 U/L Normal 13-35 [facility] Comment on above: Order Comment: Speci men Type: BLOOD SPECIMENOrdering Facility: [facility] Address: [address] [place] [address] Performed By: #### 2 4323-8, 94561-1, 2132-07 ####[facility] [id number] [place] [address] [place] Bilirubin [Mass/Vol] 0.5 mg/dL Normal 0.2-1.3 [facility] Comment on above: Order Comment: Speci men Type: BLOOD SPECIMENOrdering Facility: [facility] Address: [address] [place] [address] Performed By: #### 2 4323-8, 42107-6, 2132-07 ####[facility] [id number] [place] [address] [place] Calcium [Mass/Vol] 9.8 mg/dL Normal 8.5-10.2 [facility] Comment on above: Order Comment: Speci men Type: BLOOD SPECIMENOrdering Facility: [facility] Address: [address] [place] [address] Performed By: #### 2 4323-8, 34523-3, 2132-07 ####[facility] [id number] [address] [address] [place] Chloride [Moles/Vol] 106 mmol/L Normal 98-107 [facility] Comment on above: Order Comment: Speci men Type: BLOOD SPECIMENOrdering Facility: [facility] Address: [address] [place] [address] Performed By: #### 2 4323-8, 81264-0, 2132-07 ####[facility] [id number] [place] [address] [place] CO2 [Moles/Vol] 26 mmol/L Normal 22-30 [facility] Comment on above: Order Comment: Speci men Type: BLOOD SPECIMENOrdering Facility: [facility] Address: [address] [place] [address] Performed By: #### 2 4323-8, 53528-8, 2132-07 ####[facility] [id number] [place] [address] [place] Creatinine [Mass/Vol] 0.67 mg/dL Normal 0.58-0.96 [facility] Comment on above: Order Comment: Speci men Type: BLOOD SPECIMENOrdering Facility: [facility] Address: [address] [place] [address] Performed By: #### 2 4323-8, 01283-7, 2132-07 ####[facility] [id number] [address] [address] [place] Creatinine and Glomerular filtration rate.predicted panel (S/P/Bld) 88 mL/min/1.73m??? Normal >=60 [facility] Comment on above: Order Comment: Speci men Type: BLOOD SPECIMENOrdering Facility: [facility] Address: [address] [place] [address] Result Comment: Marsha mated Glomerular Filtration Rate (eGFR) is calculated using the 2020 CKD-EPI creatinine equation. This equation utilizes serum creatinine, sex, and age as parameters. The creatinine assay has traceable calibration to isotope dilution-mass spectrometry. Refer to KDIGO guidelines for clinical interpretation. In patients with unstable renal function, e.g. those with acute kidney injury, the eGFR may not accurately reflect actual GFR. Performed By: #### 2 4323-8, 45706-3, 2132-07 ####[facility] [id number] [address] [address] [place] Glucose [Mass/Vol] 76 mg/dL Normal 74-99 [facility] Comment on above: Order Comment: Jennie metz Type: BLOOD SPECIMENOrdering Facility: [facility] Address: [address] [place] [address] Result Comment: The [place] Diabetes Association (ADA) provides guidance for cutoff values for fasting glucose and random glucose. The ADA defines fasting as no caloric intake for at least 8 hours. Fasting plasma glucose results between 100 to 125 mg/dL indicate increased risk for diabetes (prediabetes). Fasting plasma glucose results greater than or equal to 126 mg/dL meet the criteria for diagnosis of diabetes. In the absence of unequivocal hyperglycemia, results should be confirmed by repeat testing. In a patient with classic symptoms of hyperglycemia or hyperglycemic crisis, random plasma glucose results greater than or equal to 200 mg/dL meet the criteria for diagnosis of diabetes. Reference: Standards of Medical Care in Diabetes 2016, [place] Diabetes Association. Diabetes Care. 2016.39(Suppl 1). Performed By: #### 2 4323-8, 22829-6, 2132-07 ####[facility] [id number] [address] [address] [place] Potassium [Moles/Vol] 4.1 mmol/L Normal 3.7-5.1 [facility] Comment on above: Order Comment: Jennie metz Type: BLOOD SPECIMENOrdering Facility: [facility] Address: [address] [place] [address] Performed By: #### 2 4323-8, 60227-7, 2132-07 ####[facility] [id number] [address] [address] [place] Protein [Mass/Vol] 7.2 g/dL Normal 6.3-8.0 [facility] Comment on above: Order Comment: Speci men Type: BLOOD SPECIMENOrdering Facility: [facility] Address: [address] [place] [address] Performed By: #### 2 4323-8, 54977-0, 2132-07 ####[facility] [id number] [place] [address] [place] Sodium [Moles/Vol] 143 mmol/L Normal 136-144 [facility] Comment on above: Order Comment: Speci men Type: BLOOD SPECIMENOrdering Facility: [facility] Address: [address] [place] [address] Performed By: #### 2 4323-8, 21995-0, 2132-07 ####[facility] [id number] [place] [address] [place] Urea nitrogen [Mass/Vol] 16 mg/dL Normal 7-21 [facility] Comment on above: Order Comment: Speci men Type: BLOOD SPECIMENOrdering Facility: [facility] Address: [address] [place] [address] Performed By: #### 2 4323-8, 50892-0, 2132-07 ####[facility] [id number] [place] [id number] [place] HbA1c (Bld)on 11-19-2024 Average glucose Estimated from glycated hemoglobin (Bld) [Mass/Vol] 154 mg/dL Normal [facility] Comment on above: Order Comment: Speci men Type: BLOOD SPECIMENOrdering Facility: [facility] Address: [address] [place] [address] Result Comment: eAG: (Estimated average glucose) is a calculated value from HgbA1c and is sales representative education courses of the average blood glucose level in the last 2-3 month period. Performed By: #### 5 5454-3 ####[facility] [id number] [place] [address] [place] HbA1c (Bld) [Mass fraction] 7.0 % High 4.3-5.6 [facility] Comment on above: Order Comment: Speci men Type: BLOOD SPECIMENOrdering Facility: [facility] Address: [address] [place] [address] Result Comment: [place] Diabetes Association guidelines indicate that patients with HgbA1c in the range 5.7-6.4% are at increased risk for development of diabetes, and intervention by lifestyle modification may be beneficial. HgbA1c greater or equal to 6.5% is considered diagnostic of diabetes. Performed By: #### 5 5454-3 ####[facility] [id number] [place] [address] [place] Lipid 1996 panelon 5 Cholesterol [Mass/Vol] 156 mg/dL Normal <200 [facility] Comment on above: Order Comment: Speci men Type: BLOOD SPECIMENOrdering Facility: [facility] Address: [address] [place] [address] Result Comment: <200 mg/dL, Desirable 200-239 mg/dL, Borderline high >239 mg/dL, High Performed By: #### 2 4323-8, 20613-8, 2132-07 ####[facility] [id number] [address] [place] Cholesterol in HDL [Mass/Vol] 61 mg/dL Normal >39 [facility] Comment on above: Order Comment: Speci men Type: BLOOD SPECIMENOrdering Facility: [facility] Address: [address] [place] [address] Result Comment: 40-5 9 mg/dL, Acceptable >59 mg/dL, High: Negative risk factor for coronary heart disease <40 mg/dL, Low: Positive risk factor for coronary heart disease Performed By: #### 2 4323-8, 61401-3, 2132-07 ####[facility] [id number] [address] [address] [place] Cholesterol in LDL [Mass/Vol] 77 mg/dL Normal <100 [facility] Comment on above: Order Comment: Speci men Type: BLOOD SPECIMENOrdering Facility: [facility] Address: [address] [place] [address] Result Comment: <100 mg/dL, Optimal 100-129 mg/dL, Near optimal/above optimal 130-159 mg/dL, Borderline high 160-189 mg/dL, High >189 mg/dL, Very high Secondary prevention optimal LDL Cholesterol levels are recommended to be < 70 mg/dL Performed By: #### 2 4323-8, 30432-4, 2132-07 ####[facility] [id number] [place] [address] [place] Cholesterol in LDL/Cholesterol in HDL [Mass ratio] 1.26 {ratio} Normal <2.54 [facility] Comment on above: Order Comment: Speci men Type: BLOOD SPECIMENOrdering Facility: [facility] Address: [address] [place] [address] Result Comment: Porfirio heller: 1. National Cholesterol Education Program ATP III Guideline At-A-Glance Quick Desk Reference: National Heart, Lung, and Blood Andrew. National Institutes of Health. 2001: NIH Publication No. 01-3305. 2. An International Atherosclerosis Society position paper: global recommendations for the management of dyslipidemia: executive summary, Atherosclerosis. 2014: 232(2):410-413. Performed By: #### 2 4323-8, 90947-9, 2132-07 ####[facility] [id number] [place] [address] [place] Cholesterol in VLDL [Mass/Vol] 18 mg/dL Normal <30 [facility] Comment on above: Order Comment: Speci men Type: BLOOD SPECIMENOrdering Facility: [facility] Address: [address] [place] [address] Performed By: #### 2 4323-8, , 2132-07 ####[facility] [id number] [address] [address] [place] Cholesterol non HDL [Mass/Vol] 95 mg/dL Normal <130 [facility] Comment on above: Order Comment: Speci men Type: BLOOD SPECIMENOrdering Facility: [facility] Address: [address] [place] [address] Result Comment: <130 mg/dL, Optimal 130-159 mg/dL, Near optimal/above optimal 160-189 mg/dL, Borderline high 190-219 mg/dL, High >219 mg/dL, Very high Secondary prevention optimal non HDL Cholesterol levels are recommended to be <100 mg/dL Performed By: #### 2 4323-8, , 2132-07 ####[facility] [id number] [address] [address] [place] Cholesterol.total/Cho lesterol in HDL [Mass ratio] 2.56 {ratio} Normal <5.10 [facility] Comment on above: Order Comment: Speci men Type: BLOOD SPECIMENOrdering Facility: [facility] Address: [address] [place] [address] Performed By: #### 2 4323-8, , 2132-07 ####[facility] [id number] [address] [address] [place] FASTING TIME 12 hrs Normal [facility] Comment on above: Order Comment: Speci men Type: BLOOD SPECIMENOrdering Facility: [facility] Address: [address] [place] [id number] Performed By: #### 2 4323-8, , 2132-07 ####[facility] [id number] [place] [id number] [place] Triglyceride [Mass/Vol] 92 mg/dL Normal <150 [facility] Comment on above: Order Comment: Speci men Type: BLOOD SPECIMENOrdering Facility: [facility] Address: [address] [facility] [place] [address] Result Comment: <150 mg/dL, Normal 150-199 mg/dL, Borderline high 200-499 mg/dL, High >499 mg/dL, Very high Performed By: #### 2 4323-8, 35529-9, 2132-07 ####[facility] [id number] [address] [address] [facility] Vit B12 [facility] 11-19- 025 Cobalamin (Vitamin B12) [Mass/Vol] pg/mL High 232-1245 [facility] Comment on above: Order Comment: Speci men Type: BLOOD SPECIMENOrdering Facility: [facility] Address: [address] [facility] [place] [id number] Performed By: #### 2 4323-8, 25099-7, 2132-07 ####[facility] [id number] [place] [id number] [place] Cardiology Visit Reporton Cardiology Visit Report [facility] [address] [place] [address] OFFICE VISIT Date of Service: 10/04/24 MR#: [id number] Acct: [id number] Name: KELLIE DOZIER MARIETTA Rep #: [id number] : 1945 Provider: MARIA LUISA montilla Age/Sex: 79/F Location[facility] Status: Signed HPI HPI History of Present Illness Details: This is a 79-year-old white female who presents today for an outpatient cardiovascular follow up with a history of an underlying CAD, PCI, conduction system disease, paroxysmal atrial fibrillation, hyperlipidemia, hypertension, superimposed upon a history of diabetes mellitus and breast carcinoma. She is status post PCI of the proximal and mid left anterior descending artery back in 2008. She has not had any recent documented episodes of atrial fibrillation. She denies chest, arm, jaw, or neck discomfort. She denies palpitations. She states bilateral lower extremity edema. She denies claudication. She denies shortness of breath with activity, shortness of breath at rest, orthopnea, or PND. She denies significant, sudden weight gain. She denies lightheadedness, dizziness, near-syncope, or syncope. She denies blood in urine, blood in stool, or epistaxis. He denies fever with chills. She denies myalgia. She denies fatigue. Her exercise level has remained stable. She states her blood pressure is better controlled outside of today. She expresses concerns regarding chronic cough and muscle cramps. Intake Vital Signs 04/07/24 11:01 10/04/24 13:04 Height 5 ft 4 in 5 ft 4 in Weight: 136 lb 6 oz 141 lb BMI 23.3 24.2 BP 183/75 H 139/79 H Blood Pressure Location Lt brachial Lt brachial Position Sitting Sitting Respiration 16 16 Pulse 71 69 Pulse Source Monitor NIBP Intake Visit Reasons: 6 M FU Optical Glass Inspector Required: No Is patient in pain?: No Allergies alendronate sodium (From Fosamax) Adverse Reaction (Severe, Verified 10/04/24 13:07) myalgias amoxicillin (Amoxicillin) Adverse Reaction (Verified 10/04/24 13:07) Nausea/Vom/Diarrhea metformin Adverse Reaction (Verified 10/04/24 13:07) Nausea/Vom/Diarrhea shellfish derived Adverse Reaction (Verified 10/04/24 13:07) Nausea/Vom/Diarrhea Medications ???Medication ???Instructions ???Recorded ???Confirmed ???Type cyanocobalamin (vitamin B-12) 1,000 mcg PO DAILY vitamin 09/06/19 10/04/24 History 1,000 mcg tablet deficient pravastatin 80 mg tablet 80 mg PO QHS cholesterol 09/06/19 10/04/24 History pyridoxine (vitamin B6) 100 mg 100 mg PO DAILY vitamin deficient 09/06/19 10/04/24 History tablet nitroglycerin 0.4 mg sublingual 0.4 mg sublingual Q5-15M PRN chest 09/08/19 10/04/24 Rx tablet pain #90 tabs verapamil 300 mg capsule 24hr 300 mg PO QHS blood pressure 08/06/23 10/04/[address],ext.release brimonidine 0.2 % eye drops 1 drp ophthalmic (eye) BID Glaucoma 12/11/23 10/04/24 History calcium 600 mg (as 1 tab PO DAILY vitamin deficient 12/11/23 10/04/24 History carbonate)-vitamin D3 5 mcg (200 unit) tablet (Calcium 600 + D(3)) empagliflozin 10 mg tablet 10 mg PO QDAY 10/04/24 10/04/24 History (Jardiance) glipizide 2.5 mg tablet 2.5 mg PO BID 10/04/24 10/04/24 History insulin glargine 100 unit/mL (3 30 unit subcut QDAY 10/04/24 10/04/24 History mL) subcutaneous pen (Lantus Solostar U-100 Insulin) losartan 50 mg tablet 50 mg PO DAILY #30 tabs 10/04/24 10/04/24 Rx Ejection fraction %: 55 Have you fallen in the past year?: Yes (Pulled down by dog) [facility] Medical History Anemia History of diverticulitis Non-smoker History of stress test Cardiology follow-up encounter On apixaban therapy Old myocardial infarction Liver mass 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 tachycardia Pure hypercholesterolemia Malignant neoplasm of right breast GERD (gastroesophageal reflux disease) Paroxysmal atrial fibrillation Type 2 diabetes mellitus Essential hypertension Presence of stent in coronary artery ( 05/23/09) 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 Surgical History History of eyelid surgery (05/28/23) History of total abdominal hysterectomy S/P lumpectomy, right breast Presence of coronary angioplasty implant and graft ( 05/23/09) Family History Mother Hypertension Diabetes CVA (cerebral vascular accident) CAD (coronary artery disease) Father History of DVT (deep vein thrombosis) Social History household members: family housing: house Smoking Status: Never smoker alcohol intake: never substance use type: does not use caffeine: Yes Type: coffee Numb (more content not included)... Normal [facility] Echo Completeon 07-13-2024 Echo Complete [facility] [place] [address] Echo Complete 07/13/24 1004 MR#: [id number] Acct: [id number] Name: KELLIE DOZIER MARIETTA Rep #: [id number] : 1945 79 From: Rajeev Kelley MD Attending Dr: Dr. Rajeev Kelley MD Status: NILESH LEDESMA Ordering Dr: Rajeev Kelley MD Date: 07/13/24 Location: [facility] Sex: F C Admitted: Reason For Study: CAD/ASHD Procedure This was a 2D Doppler, Color Flow transthoracic echocardiogram. Exam performed in department. Left Ventricle Normal LV size. Left ventricular systolic function is normal. The left ventricular ejection fraction is 55 %. Stage 2 diastolic dysfunction. No regional wall motion abnormalities noted. Right Ventricle Normal RV size. Normal systolic function. Atria Normal left atrium. Normal right atrium. Mitral Valve Normal mitral valve. Mild (1+) mitral valve insufficiency. Tricuspid Valve Normal tricuspid valve. Mild tricuspid valve insufficiency. Aortic Valve Trisinus/trileaflet aortic valve. Pulmonic Valve Normal pulmonic valve. Great Vessels Normal aortic root. The pulmonary artery is normal size. Inferior vena cava collapse with respiration. Pericardium/Pleural No pericardial effusion. MMode/2D Measurements Calculations LVIDd: 5.2 cm IVSd: 0.98 cm Ao root diam: 2.7 cm LVIDs: 3.3 cm LVPWd: 0.89 cm RVDd: 2.8 cm FS: 36.1 % LAV(MOD-bp): 76.9 ml LVAd ap4: 26.3 cm2 LVAd ap2: 29.6 cm2 LAV(MOD-bp) Indexed: 45.9 ml/m2 LVLd ap4: 7.4 cm LVLd ap2: 7.5 cm LAV(MOD-sp2): 83.6 ml EDV(MOD-sp4): 77.5 ml EDV(MOD-sp2): 95.9 ml LAV(MOD-sp4): 62.7 ml EDV(sp4-el): 79.7 ml EDV(sp2-el): 98.9 ml LVAs ap4: 16.6 cm2 LVAs ap2: 17.3 cm2 LVLs ap4: 6.6 cm LVLs ap2: 6.9 cm ESV(MOD-sp4): 36.2 ml ESV(MOD-sp2): 38.7 ml ESV(sp4-el): 35.7 ml ESV(sp2-el): 37.1 ml EF(MOD-sp4): 53.3 % EF(MOD-sp2): 59.7 % EF(sp4-el): 55.2 % SV(MOD-sp4): 41.3 ml SV(MOD-sp2): 57.3 ml SV(sp4-el): 44.0 ml LA dimension(2D): 4.2 cm TAPSE: 1.7 cm LA A4 area: 19.7 cm2 Time Measurements MV dec time: 0.17 sec Doppler Measurements Calculations MV E max zenaida: 147.1 cm/sec Lat Peak E' Zenaida: 9.8 cm/sec Med Peak E' Zenaida: 6.9 cm/sec MV A max zenaida: 74.1 cm/sec E/E' lat: 14.9 E/E' med: 21.2 MV E/A: 2.0 MV V2 max: 160.1 cm/sec MV P1/2t max zenaida: 158.8 cm/sec Ao V2 max: 121.6 cm/sec MV max P.2 mmHg MV P1/2t: 64.5 msec Ao max P.9 mmHg MV V2 mean: 83.2 cm/sec MV dec slope: 720.9 cm/sec2 Ao V2 mean: 87.1 cm/sec MV mean P.2 mmHg Ao mean P.4 mmHg MV V2 VTI: 44.3 cm MVA(P1/2t): 3.4 cm2 Ao V2 VTI: 30.4 cm AV (velocity ratio): 0.71 LV V1 max: 86.5 cm/sec MR max zenaida: 626.7 cm/sec PA V2 max: 90.2 cm/sec LV V1 max P.0 mmHg MR max P.1 mmHg PA V2 mean: 66.3 cm/sec LV V1 mean P.7 mmHg MR mean zenaida: 524.3 cm/sec LV V1 mean: 62.5 cm/sec MR mean P.9 mmHg LV V1 VTI: 21.6 cm MR VTI: 242.7 cm TR max zenaida: 236.8 cm/sec TR max P.4 mmHg ECHO/Echo Complete Interpretation Summary Normal LV size. Left ventricular systolic function is normal. The left ventricular ejection fraction is 55 %. Stage 2 diastolic dysfunction. Ordering Physician: Rajeev Kelley Referring Physician: Santo Love Performed By: Aleida Colmenares RVT, RDCS and Student 07/13/242110 Date Rajeev Kelley MD CC: Dr. Rajeev Kelley MD; Dr. Santo Love MD Date Dictated: 07/13/24 1004 Date Transcribed: 07/13/242110 Director [employer] [facility]: Signed Normal [facility] 12 Lead EKG performed by [facility] on 04-07-2024 12 Lead EKG performed by [address] [address] 12 Lead EKG performed by [facility] 04/07/24 1118 MR#: [id number] Acct: [id number] Name: KELLIE DOZIER Rep #: [id number] : 1945 79 From: Rajeev Kelley MD Attending Dr: Dr. Rajeev Kelley MD Status: DEP A MB Ordering Dr: Rajeev Kelley MD Date: 04/07/24 Location: [facility] [place] Sex: F C Admitted: BMS/12 Lead EKG performed by [facility] ECG Report Interpretation Sin us Rhythm -First degree A-V block - occasional PAC Debi = 274 # PACs = 1.-Anterior infarct -age undetermined. ABNORMAL Electronically signed on 04/13/2024 at 10:17 by Rajeev Kelley [employer] Version [id number] 04/13/24 1021 Date Rajeev Kelley MD CC: Dr. Santo Love MD Date Dictated: 04/07/241117 Date Transcribed: 04/07/241117 Director [employer] [facility]: [place] Signed Normal [facility] Cardiology Visit Reporton Cardiology Visit Report [facility] [address] [place] [address] OFFICE VISIT Date of Service: 04/07/24 MR#: [id number] Acct: [id number] Name: KELLIE DOZIER Rep #: [id number] : 1945 Provider: Dr. Rajeev Kelley MD Age/Sex: 79/F Location: [facility] Status: Signed HPI HPI History of Present Illness Details: This is a 79-year-old white female who presents today for an outpatient cardiovascular follow up with a history of an underlying CAD, PCI, conduction system disease, paroxysmal atrial fibrillation, hyperlipidemia, hypertension, superimposed upon a history of diabetes mellitus and breast carcinoma. She is status post PCI of the proximal and mid left anterior descending artery back in 2008. She has not had any recent documented episodes of atrial fibrillation. She denies chest, arm, jaw, or neck discomfort. She denies palpitations. She denies bilateral lower extremity edema. She denies claudication. She denies shortness of breath with activity, shortness of breath at rest, orthopnea, or PND. She denies chronic cough. She denies significant, sudden weight gain. She denies lightheadedness, dizziness, near-syncope, or syncope. She denies blood in urine, blood in stool, or epistaxis. He denies fever with chills. She denies myalgia. She denies fatigue. Her exercise level has remained stable. She states her blood pressure is better controlled outside of today. She has had to undergo GI evaluation and has been diagnosed with a pyloric channel ulcer. Intake Vital Signs 02/05/23 09:57 02/04/24 05:43 06/06/24 11:01 Height 5 ft 4 in 5 ft 4 in 5 ft 4 in Weight: 136 lb 6 oz BMI 23.3 BP 183/75 H Blood Pressure Location Lt brachial Position Sitting Respiration 16 Pulse 71 Pulse Source Monitor Intake Visit Reasons: 15 M FU Optical Glass Inspector Required: No Accompanied by: Self Is patient in pain?: No Allergies alendronate sodium (From Fosamax) Adverse Reaction (Severe, Verified 04/07/24 11:04) myalgias amoxicillin (Amoxicillin) Adverse Reaction (Verified 04/07/24 11:04) Nausea/Vom/Diarrhea metformin Adverse Reaction (Verified 04/07/24 11:04) Nausea/Vom/Diarrhea shellfish derived Adverse Reaction (Verified 04/07/24 11:04) Nausea/Vom/Diarrhea Medications ???Medication ???Instructions ???Recorded ???Confirmed ???Type cyanocobalamin (vitamin B-12) 1,000 mcg PO DAILY vitamin 09/06/19 04/07/24 History 1,000 mcg tablet deficient pravastatin 80 mg tablet 80 mg PO QHS cholesterol 09/06/19 04/07/24 History pyridoxine (vitamin B6) 100 mg 100 mg PO DAILY vitamin deficient 09/06/19 04/07/24 History tablet nitroglycerin 0.4 mg sublingual 0.4 mg sublingual Q5-15M PRN chest 09/08/19 04/07/24 Rx tablet pain #90 tabs insulin glargine U-300 conc 300 20 unit subcut QHS diabetes 08/14/21 04/07/24 History unit/mL (1.5 mL) subcutaneous pen dulaglutide 4.5 mg/0.5 mL 4.5 mg subcut MO 08/06/23 04/07/24 History subcutaneous pen injector (Trulicity) verapamil 300 mg capsule 24hr 300 mg PO QHS blood pressure 08/06/23 04/07/[address],ext.release brimonidine 0.2 % eye drops 1 drp ophthalmic (eye) BID Glaucoma 12/11/23 04/07/24 History calcium carbonate 600 mg-vitamin 1 tab PO DAILY vitamin deficient 12/11/23 04/07/24 History D3 5 mcg (200 unit) tablet (Calcium 600 + D(3)) lisinopril 20 mg tablet 20 mg PO DAILY 02/01/24 04/07/24 History ferrous sulfate 325 mg (65 mg 325 mg PO BID 04/07/24 04/07/24 History iron) tablet PFSH Medical History Anemia History of diverticulitis Non-smoker History of stress test Cardiology follow-up encounter On apixaban therapy Old myocardial infarction Liver mass 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 tachycardia Pure hypercholesterolemia Malignant neoplasm of right breast GERD (gastroesophageal reflux disease) Paroxysmal atrial fibrillation Type 2 diabetes mellitus Essential hypertension Presence of stent in coronary artery ( 05/23/09) 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 Surgical History History of eyelid surgery (05/28/23) History of total abdominal hysterectomy S/P lumpectomy, right breast Presence of coronary angioplasty implant and graft ( 05/23/09) Family History Mother Hypertension Diabetes CVA (cerebral vascular accident) CAD (coronary artery disease) Father History of DVT (deep vein thrombosis) Social History household members: family housing: house Smoking Status: Never smoker alcohol intake: never substance use type: does not use caffeine: Yes Type: coffee Numb (more content not included)... Normal [facility] Bedside Glucoseon 02-04-2024 FINGERSTICK GLU 109 mg/dL High 74-106 [facility] Comment on above: Result Comment: SYDNEY VAILENT OF PATIENT CARE PER NURSING PROTOCOL Performed By: #### L 501.080 #### [facility] [address] [place], [address] EGD Reporton 02-04-2024 EGD Report [facility] Medical Records Department [address] [place] [address] EGD Report MR#: [id number] Acct: [id number] Name: KELLIE DOZIER [place] Rep #: [id number] : 1945 78 From: Cullen Friend DO PCP: Dr. Santo Love MD Status:REG FLC Patient Name: Kellie Dozier Procedure Date: 02/04/2024 6:21 AM Date of : 1945 Age: 78 Procedure: Upper GI endoscopy Indications: Acute post hemorrhagic anemia, Iron deficiency anemia, Chronic peptic ulcer Providers: Cullen Ferrer DO Referring MD: Cullen Ferrer DO Medicines: Monitored Anesthesia Care Patient Profile: This is a 78 year old female. Refer to note in patient chart for documentation of history and physical. Patient has symptoms of chronic epigastric abdominal pain. Complications: No immediate complications. Procedure: Pre-Anesthesia Assessment: - Prior to the procedure, a History and Physical was performed, and patient medications and allergies were reviewed. The patient is competent. The risks and benefits of the procedure and the sedation options and risks were discussed with the patient. All questions were answered and informed consent was obtained. Patient identification and proposed procedure were verified by the physician in the pre-procedure area. Mental Status Examination: alert and oriented. Airway Examination: normal oropharyngeal airway and neck mobility. Respiratory Examination: clear to auscultation. CV Examination: normal. Prophylactic Antibiotics: The patient does not require prophylactic antibiotics. Prior Anticoagulants: The patient has taken no anticoagulant or antiplatelet agents. ASA Grade Assessment: III - A patient with severe systemic disease. After reviewing the risks and benefits, the patient was deemed in satisfactory condition to undergo the procedure. The anesthesia plan was to use monitored anesthesia care (MAC). Immediately prior to administration of medications, the patient was re-assessed for adequacy to receive sedatives. The heart rate, respiratory rate, oxygen saturations, blood pressure, adequacy of pulmonary ventilation, and response to care were monitored throughout the procedure. The physical status of the patient was re-assessed after the procedure. After obtaining informed consent, the endoscope was passed under direct vision. Throughout the procedure, the patient's blood pressure, pulse, and oxygen saturations were monitored continuously. The gastroscope was introduced through the mouth, and advanced to the second part of duodenum. The upper GI endoscopy was accomplished without difficulty. The patient tolerated the procedure well. Scope In: 6:53:01 AM Scope Out: 6:57:59 AM Total Procedure Duration Time 0 hours 4 minutes 58 seconds Findings: The upper third of the esophagus and middle third of the esophagus were normal. The Z-line was irregular and was found 39 cm from the incisors. Biopsies were taken with a cold forceps for histology. Verification of patient identification for the specimen was done. Estimated blood loss was minimal. One non-bleeding linear gastric ulcer with no stigmata of bleeding was found in the cardia. The lesion was 6 mm in largest dimension. Biopsies were taken with a cold forceps for histology. Verification of patient identification for the specimen was done. Estimated blood loss was minimal. No gross lesions were noted in the first portion of the duodenum. Impression: - Normal upper third of esophagus and middle third of esophagus. - Z-line irregular, 39 cm from the incisors. Biopsied. - Non-bleeding gastric ulcer with no stigmata of bleeding. Biopsied. - No gross lesions in the first portion of the duodenum. Recommendation: - Discharge patient to home. - Resume previous diet. - Continue present medications. - Await pathology results. Procedure Code(s): --- Professional --- 05372, Esophagogastroduodenoscopy, flexible, transoral; with biopsy, single or multiple CPT copyright 2021 [employer]. All rights reserved. The codes documented in this report are preliminary and upon seniour insight manager review may be revised to meet current compliance requirements. Cullen Ferrer DO 02/04/2024 7:06:07 AM This report has been signed electronically. Number of Addenda: 0 Note Initiated On: 02/04/2024 6:21 AM 02/04/24705 Date Cullen Ferrer DO Cosigner Signature: Date (if indicated) CC: Dr. Santo Love MD; Cullen Ferrer DO Date Dictated: 02/04/24620 Date Transcribed: Director [employer] [facility]: MIGUELINA Signed Normal [facility] H Pylori (initial)on 024 H Pylori (initial) Patient Age/Sex Loca tion Account Attending Physician KELLIE DOZIER 78/F EN [id number] Cullen Ferrer DO Specimen: [id number] Received: 04/ Status: SOUT Silvana Num: [id number] Spec Type: IMMUNO Subm Dr: Cullen Ferrer DO PHYSICIAN INSTITUTION [place] [address] SPECIMEN INFORMATION: Tissue Source: A - Gastric ulcer biopsy Clinical Info: Gastrointestinal bleeding, Gastric ulcer Specimen Number: [id number] CPT code: 15763 METHODOLOGY: Deparaffinized sections of prefer/formalin-fixed tissue or PAP/DQ stained slides are incubated with monoclonal/polyclonal antibodies/oligonucleotide probes. Localization is made via biotin free immunoperoxidase method. Appropriate controls are performed and reacted as expected. Results on target cell population are indicated in the following table: RESULTS: ANTIBODY / CLONE RESULT Block A H Pylori (polyclonal) negative These tests were developed and their performance characteristics determined by [facility]. They may not have been cleared or approved by the U.S. Food and Drug Administration. The FDA has determined that such clearance or approval is not necessary. The above immunohistochemical/dualISH markers are ordered and reviewed by the Pathologist. INTERPRETATION: A. Gastric ulcer, biopsy: Negative for Helicobacter pylori organisms. SOMMER/ 02/05/24 Signed (signature on file) Dr. Usama Reilly MD 02/05/24 1306 ----- Normal [facility] Comment on above: Performed By: #### P H.PYLORI ####[address], [id number] Special Stain Group IIon Special Stain Group II Patient Age/Sex Location Account Attending Physician KELLIE DOZIER 78/F EN [id number] Cullen Ferrer DO Specimen: [id number] Received: 02/04/24 Status: ALBARO Silvana Num: [id number] Spec Type: Gastric Bx Subm Dr: Cullen Ferrer DO HEADER OPERATION: EGD, biopsy PRE-OP DIAGNOSIS: Gastrointestinal bleeding, Gastric ulcer TISSUE SUBMITTED: A- Gastric ulcer biopsy, B- Distal esophagus biopsy ----- MICROSCOPIC DIAGNOSIS A. Gastric ulcer, biopsy: Moderate gastritis. See microscopic description and comment. B. Distal esophagus, biopsy: Fragments of gastroesophageal mucosa with moderate chronic inflammation and changes consistent with gastroesophageal reflux disease. Intestinal metaplasia (goblet cell metaplasia) not identified. See comment. [facility] 02/05/24 COMMENT A. The results of immunohistochemistry for Helicobacter pylori will be reported separately ([id number]). B. Alcian blue/PAS stain with matched control is used in the evaluation of the specimen. MICROSCOPIC DESCRIPTION Slides are reviewed. A. The specimen shows fragments of gastric mucosa with chronic inflammatory cell infiltrates in the lamina propria consisting of lymphocytes and plasma cells, consistent with moderate chronic gastritis. GROSS DESCRIPTION A. Received in fixative is one container labeled with the patient's name and designated Gastric ulcer biopsy. The specimen consists of two irregular fragments of light sylvester soft tissue that in aggregate measure 0.6 x 0.3 x 0.1 cm. The specimen is totally submitted in one cassette. B. Received in fixative is one container labeled with the patient's name and designated Distal esophagus biopsy. The specimen consists of two irregular fragments of light sylvester soft tissue that in aggregate measure 0.6 x 0.3 x 0.1 cm. The specimen is totally submitted in one cassette. [facility] 02/04/24 TC:3 CPT: 94671,21523y8 ----- Patient Age/Sex Location Account Attending Physician ----- KELLIE DOZIER 78/F EN [id number] Cullen Ferrer, DO ----- Signed (signature on file) Dr. Usama Reilly MD 02/05/24 1220 ----- Normal [facility] Comment on above: Performed By: #### L 501.080 #### [facility] [place], [address] Thin prep Papanicolaou smear with manual screeningOrdered By: Cullen Ferrer on 02-04-2024 Thin prep Papanicolaou smear with manual screening 109 mg/dL 74-106 [facility] Comment on above: MANAGEMENT OF PATIEN T CARE PER NURSING PROTOCOL UA DIP, URINE (POC)on 2023 BILIRUBIN UA (POCT) Negative Negative [facility] CLARITY UA (POCT) Cloudy [facility] COLOR UA (POCT) Yellow [facility] GLUCOSE UA (POCT) 100 mg/dL Abnormal Negative mg/dL [facility] Hemoglobin Ql (U) Small Abnormal Negative [facility] KETONE UA (POCT) Negative Negative mg/dL [facility] LEUKOCYTES UA (POCT) Large [facility]normal [facility] N[facility] (PO[facility]) Negative Negative [facility] PH UA (POCT) 6.0 4.5 - 8.[address] [facility] Protein Ql (U) Negative Negative mg/dL [facility] SPECIFIC GRAVITY UA (POCT) 1.015 1.005 - 1.[address] [facility] UROBILINOGEN UA (POCT) 0.2 E.U./dL Normal E.U./dL [facility] Basophil percentageOrdered B y: Cullen Ferrer on 01-18-2024 Hemoglobin (Bld) [Mass/Vol] 10.5 g/dL 12.0-15.0 [facility] Gastroenterology Visit Repor ton 01-18-2024 Gastroenterology Visit Report [facility] Gastroenterology [address] [place] [address] OFFICE VISIT Date of Service: 01/18/24 MR#: [id number] Acct: [id number] Name: YELENAKELLIE ANN Rep #: [id number] : 1945 Provider: Cullen Ferrer DO Age/Sex: 78/F Location: [facility] Status: Signed Intake Vital Signs 12/21/23 14:06 Height 5 ft 4 in Intake Visit Reasons: Hospital FU Allergies alendronate sodium [From Fosamax] Adverse Reaction (Severe, Verified 12/15/23 05:40) myalgias amoxicillin [Amoxicillin] Adverse Reaction (Verified 12/15/23 05:40) Nausea/Vom/Diarrhea metformin Adverse Reaction (Verified 12/15/23 05:40) Nausea/Vom/Diarrhea shellfish derived Adverse Reaction (Verified 12/15/23 05:40) Nausea/Vom/Diarrhea 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 Essential hypertension GERD (gastroesophageal reflux disease) Liver mass Malignant neoplasm of right breast Old myocardial infarction Paroxysmal atrial fibrillation 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 tachycardia Presence of stent in coronary artery ( 05/23/09) Pure hypercholesterolemia Type 2 diabetes mellitus Surgical History History of eyelid surgery (05/28/23) History of total abdominal hysterectomy Presence of coronary angioplasty implant and graft ( 05/23/09) S/P lumpectomy, right breast Family History Mother Hypertension Diabetes CVA (cerebral vascular accident) CAD (coronary artery disease) Father History of DVT (deep vein thrombosis) Social History household members: family housing: house Smoking Status: Never smoker alcohol intake: never substance use type: does not use caffeine: Yes Type: coffee Number of servings: 2 HPI HPI Details: KELLIE DOZIER, is a 78 F who presents to the office today for *[facility] hospitalization .07.26-12.13.23 for management of UGIB with anemia with use of Eliquis for A- fib. ? CT abd/pel IV only 12.11.23 fluid filled small bowel loops, ?enteritis; focal stranding of RLQ from cecum. ? EGD 12.12.23 oozing gastric ulcer, epinephrine/hemospray x5, heater probe; bleeding duodenal AVM. No specimens [facility] hospitalization 12.15.23-12.22.23 for management of GIB with use of Eliquis for A-fib. ? EGD 12.15.23 one oozing gastric ulcer, epinephrine, heater probe, one clip placed. No specimens ? CTA 12.16.23 metallic foreign body in stomach. No sign of GIB. OV 01.18.24 reports she is doing well at this time. Denies difficulty with GIB. ROS Const Constitutional: No anorexia, fatigue, fever(s), weight change or sleep problems Eyes Eyes: No change in vision ENT ENT: No abnormal hearing, difficulty swallowing, mouth lesions, tongue swelling or throat swelling Resp Respiratory: No cough or shortness of breath Cardio Cardiology: No chest pain at rest, chest pain with exertion, shortness of breath or dyspnea on exertion Gastro GI: No difficulty swallowing Genitourinary-Female: No difficulty urinating or burning urination Musc Musculoskeletal: No joint pain, joint swelling, muscle weakness or decreased muscle mass Skin Skin: No hair loss in leg, yellowing of the eye, itchy eyes, rash, skin ulcer or skin swelling Neuro Neurology: No abnormal hearing, abnormal movements, confusion, unsteady gait/balance or memory loss Psych Psychiatric: No anxiety, No confusion and No memory loss Endo Endocrine: No fatigue or weight change Aller/Imm Allergy/Immunologic: No itchy eyes, throat swelling or tongue swelling Daniel/Lymp Hematologic/Lymphatic: No easy bleeding, easy bruising or enlarged lymph nodes Exam Const General: cooperative and comfortable Nutritional Appearance: average body habitus and well nourished [facility] Head: normal to inspection Ears: hearing grossly normal bilaterally Nose: external nose normal Face and sinus: normal facial exam Mouth: oral mucosae normal Throat: posterior oropharynx normal Eyes General: appearance normal, both eyes and all related structures Neck Neck: normal visual inspection Chest Chest palpation inspection: normal inspection of the chest and normal palpation of entire chest wall Resp Effort Inspection: normal respiratory effort Auscultation: Bilateral: Clear to Auscultation Cardio Palpation: normal PMI Rate: regular rate Rhythm: regular rhythm GI Inspection: normal to inspection Auscultation: normal bowel sounds Percussion: normal to percussion Palpation: no hepatosplenom (more content not included)... Normal [facility] HH, Hemoglobin AND Hematocri ton 01-18-2024 Hematocrit (Bld) [Volume fraction] 34.1 % Low 37-47 [facility] Comment on above: Performed By: #### L 501.080 #### [facility] [address] [place], [address] Hemoglobin (Bld) [Mass/Vol] 10.5 g/dL Low 12.0-15.0 [facility] Comment on above: Performed By: #### L 501.080 #### [facility] [address] [place], [address] Hematocrit Auto (Bld) [Volum e fraction]Ordered By: Cullen Ferrer on 01-18-2024 Hematocrit (Bld) [Volume fraction] 34.1 % 37-47 [facility] Basic metabolic 2000 panelon 01-06-2024 Anion gap [Moles/Vol] 13 mmol/L 9 - 18 mmol/L [facility] Calcium [Mass/Vol] 9.5 mg/dL 8.5 - 10. 2 mg/dL [facility] Chloride [Moles/Vol] 108 mmol/L High 97 - 10 5 mmol/L [facility] CO2 [Moles/Vol] 25 mmol/L 22 - 30 mmol/L [facility] Creatinine [Mass/Vol] 0.72 mg/dL 0.58 - 0.96 mg/dL [facility] Estimated Glomerular Filtration Rate 85 mL/min/1.73m >=60 mL/min/1.[address] [facility] Glucose [Mass/Vol] 94 mg/dL 74 - 99 mg/dL [facility] Potassium [Moles/Vol] 4.2 mmol/L 3.7 - 5.1 mmol/L [facility] Sodium [Moles/Vol] 146 mmol/L High 136 - 144 mmol/L [facility] Urea nitrogen [Mass/Vol] 11 mg/dL 7 - 21 mg/dL [facility] CBC W Auto Differential pane l (Bld)on 01-06-2024 Basophils (Bld) [#/Vol] 0.06 10*3/uL <0.11 k/uL [facility] Basophils/100 WBC (Bld) 0.7 % [facility] Differential cell count method Nom (Bld) Auto [facility] Eosinophils (Bld) [#/Vol] 0.26 10*3/uL <0.46 k/uL [facility] Eosinophils/100 WBC (Bld) 3.1 % [facility] Erythrocyte distribution width (RBC) [Ratio] 15.5 % High 11.5 - 15.0 % [facility] Hematocrit (Bld) [Volume fraction] 33.6 % Low 36.0 - 46.0 % [facility] Hemoglobin (Bld) [Mass/Vol] 10.5 g/dL Low 11.5 - 15.5 g/dL [facility] Immature granulocytes (Bld) [#/Vol] 0.08 10*3/uL <0.10 k/uL [facility] Immature granulocytes/100 WBC (Bld) 1.0 % [facility] Lymphocytes (Bld) [#/Vol] 1.61 10*3/uL 1.00 - 4.00 k/uL [facility] Lymphocytes/100 WBC (Bld) 19.5 % [facility] MCH (RBC) [Entitic mass] 28.8 pg 26.0 - 34.[address] [facility] MCHC (RBC) [Mass/Vol] 31.3 g/dL 30.5 - 36.0 g/dL [facility] MCV (RBC) [Entitic vol] 92.3 fL 80.0 - 100.[address] [facility] Monocytes (Bld) [#/Vol] 0.83 10*3/uL <0.87 k/uL [facility] Monocytes/100 WBC (Bld) 10.0 % [facility] Neutrophils (Bld) [#/Vol] 5.43 10*3/uL 1.45 - 7.50 k/uL [facility] Neutrophils/100 WBC (Bld) 65.7 % [facility] Nucleated RBC (Bld) [#/Vol] <0.01 k/uL [facility] Nucleated RBC/100 WBC (Bld) [Ratio] 0.0 /[address] [facility] Platelet mean volume (Bld) [Entitic vol] 10.0 fL 9.0 - 12.[address] [facility] Platelets (Bld) [#/Vol] 310 10*3/uL 150 - 400 k/uL [facility] RBC (Bld) [#/Vol] 3.64 10*6/uL Low 3.90 - 5.20 m/uL [facility] WBC (Bld) [#/Vol] 8.27 10*3/uL 3.70 - 11.00 k/uL [facility] Bedside Glucoseon 12-22-2023 FINGERSTICK GLU 208 mg/dL High 74-106 [facility] Comment on above: Result Comment: SYDNEY GEMENT OF PATIENT CARE PER NURSING PROTOCOL Performed By: #### L 501.080 ####[facility] [address] [place], [address] FINGERSTICK GLU 245 mg/dL High 74-106 [facility] Comment on above: Result Comment: SYDNEY GEMENT OF PATIENT CARE PER NURSING PROTOCOL Performed By: #### L 501.080 #### [facility] [address] [place], [address] FINGERSTICK GLU 77 mg/dL Normal 74-106 [facility] Comment on above: Result Comment: SYDNEY GEMENT OF PATIENT CARE PER NURSING PROTOCOL Performed By: #### L 501.080 #### [facility] [address] [place], [address] Thin prep Papanicolaou smear with manual screeningOrdered By: Gomez Johansen on 12-22-2023 Thin prep Papanicolaou smear with manual screening 245 mg/dL 74-106 [facility] Comment on above: MANAGEMENT OF PATIEN T CARE PER NURSING PROTOCOL Absolute lymphocyte countOrd ered By: Gomez Johansen on 12-21-2023 Lymphocytes Auto (Unsp spec) [#/Vol] 1.19 10*3/uL 0.83-4.51 [facility] Automated lymphocyte count a s percentage of total leukocytesOrdered By: Gomez Johansen on 12-21-2023 Lymphocytes/100 WBC Auto (Unsp spec) 13.5 % - [facility] Basic Metabolic Profile (BMP )on 12-21-2023 BUN/CRE 16.0 RATIO Normal - [facility] Comment on above: Performed By: #### L 100.0100, L500.4050 #### [facility] [address] [place], [address] CA,Total 8.3 mg/dL Low 8.5-10.1 [facility] Comment on above: Performed By: #### L 100.0100, L500.4050 #### [facility] [address] [place], [address] Chloride [Moles/Vol] 111 mmol/L High 98-107 [facility] Comment on above: Performed By: #### L 100.0100, L500.4050 #### [facility] [address] [place], [address] CO2 [Moles/Vol] 27.0 mmol/L Normal 21.0-32.0 [facility] Comment on above: Performed By: #### L 100.0100, L500.4050 #### [facility] [address] [place], [address] Creatinine [Mass/Vol] 0.44 mg/dL Low 0.55-1.02 [facility] Comment on above: Result Comment: The validity of the calculated GFR GFRAA in patients over 70 years has not been determined. Clinical correlation is essential. Performed By: #### L 100.0100, L500.4050 #### [facility] [address] [place], [address] ECRCL 49.24 ml/min Normal [facility] Comment on above: Performed By: #### L 100.0100, L500.4050 #### [facility] [address] [place], [address] EST GFR - AA 179 mL/min Normal >60 [facility] Comment on above: Result Comment: Afri can Zambian GFR Calc Performed By: #### L 100.0100, L500.4050 #### [facility] [address] [place], [address] GAP 4 Low 5-15 [facility] Comment on above: Performed By: #### L 100.0100, L500.4050 #### [facility] [address] [place], [address] GFR/1.73 sq M.predicted among non-blacks MDRD (S/P/Bld) [Vol rate/Area] 148 mL/min/{1.73_m2} Normal >60 [facility] Comment on above: Result Comment: Non- GFR Calc Performed By: #### L 100.0100, L500.4050 #### [facility] [address] [place], [address] Glucose [Mass/Vol] 77 mg/dL Normal 74-106 [facility] Comment on above: Performed By: #### L 100.0100, L500.4050 #### [facility] [address] [place], [address] Potassium [Moles/Vol] 3.2 mmol/L Low 3.5-5.1 [facility] Comment on above: Performed By: #### L 100.0100, L500.4050 #### [facility] [address] [place], [address] Sodium [Moles/Vol] 142 mmol/L Normal 136-145 [facility] Comment on above: Performed By: #### L 100.0100, L500.4050 #### [facility] [address] [place], [address] Urea nitrogen [Mass/Vol] 7 mg/dL Normal 7-18 [facility] Comment on above: Performed By: #### L 100.0100, L500.4050 #### [facility] [address] [place], [address] Basophil percentageOrdered B y: Gomez Johansen on 12-21-2023 Basophils/100 WBC (Bld) 0.6 % 0-1 [facility] Chloride [Moles/Vol] 111 mmol/L 98-107 [facility] Eosinophils/100 WBC (Bld) 1.8 % 0-5 [facility] Glucose [Mass/Vol] 77 mg/dL 74-106 [facility] Hemoglobin (Bld) [Mass/Vol] 8.1 g/dL 12.0-15.0 [facility] Monocytes/100 WBC (Bld) 9.2 % 0-10 [facility] Neutrophils (Bld) [#/Vol] 6.5 10*3/uL 2.0-7.7 [facility] Neutrophils/100 WBC (Bld) 73.8 % 47-70 [facility] Potassium [Moles/Vol] 3.2 mmol/L 3.5-5.1 [facility] Sodium [Moles/Vol] 142 mmol/L 136-145 [facility] WBC (Bld) [#/Vol] 8.8 10*3/uL 4.4-11.0 [facility] Bedside Glucoseon 12-21-2023 FINGERSTICK GLU 138 mg/dL High 74-106 [facility] Comment on above: Result Comment: SYDNEY GEMENT OF PATIENT CARE PER NURSING PROTOCOL Performed By: #### L 501.080 #### [facility] [address] [place], [address] FINGERSTICK GLU 153 mg/dL High 74-106 [facility] Comment on above: Result Comment: SYDNEY GEMENT OF PATIENT CARE PER NURSING PROTOCOL Performed By: #### L 501.080 #### [facility] [address] [place], [address] FINGERSTICK GLU 152 mg/dL High 74-106 [facility] Comment on above: Result Comment: SYDNEY GEMENT OF PATIENT CARE PER NURSING PROTOCOL Performed By: #### L 501.080 #### [facility] [address] [place], [address] FINGERSTICK GLU 156 mg/dL High -106 [facility] Comment on above: Result Comment: SYDNEY GEMENT OF PATIENT CARE PER NURSING PROTOCOL Performed By: #### L 501.080 #### [facility] [address] [place], [address] FINGERSTICK GLU 297 mg/dL High 74-106 [facility] Comment on above: Result Comment: SYDNEY GEMENT OF PATIENT CARE PER NURSING PROTOCOL Performed By: #### L 501.080 #### [facility] [address] [place], [address] FINGERSTICK GLU 77 mg/dL Normal 74-106 [facility] Comment on above: Result Comment: SYDNEY GEMENT OF PATIENT CARE PER NURSING PROTOCOL Performed By: #### L 501.080 #### [facility] [address] [place], [address] CBC W/Diff, Automatedon 12-03 Absolute Lymph 1.19 X10 3/uL Normal 0.83-4.51 [facility] Comment on above: Performed By: #### L 501.080 #### [facility] [address] [place], [address] Absolute Neut 6.5 X10 3/uL Normal 2.0-7.7 [facility] Comment on above: Performed By: #### L 501.080 #### [facility] [address] [place], [address] Basophils/100 WBC (Bld) 0.6 % Normal 0-1 [facility] Comment on above: Performed By: #### L 501.080 #### [facility] [address] [place], [address] Eosinophils/100 WBC (Bld) 1.8 % Normal 0-5 [facility] Comment on above: Performed By: #### L 501.080 #### [facility] [address] [place], [address] Erythrocyte distribution width (RBC) [Ratio] 17.2 % High 11.6-14.6 [facility] Comment on above: Performed By: #### L 501.080 #### [facility] [address] [place], [address] Hematocrit (Bld) [Volume fraction] 25.5 % Low 37-47 [facility] Comment on above: Performed By: #### L 501.080 #### [facility] [address] [place], [address] Hemoglobin (Bld) [Mass/Vol] 8.1 g/dL Low 12.0-15.0 [facility] Comment on above: Performed By: #### L 501.080 #### [facility] [address] [place], [address] IG% 1.100 High 0.0-0.9 [facility] Comment on above: Result Comment: IG% - Immature Granulocytes (promyelocytes, myelocytes and metamyelocytes) > 1% indicates that a LEFT SHIFT is Present. Performed By: #### L 501.080 #### [facility] [address] [place], [address] Lymphocytes/100 WBC (Bld) 13.5 % Low 19-41 [facility] Comment on above: Performed By: #### L 501.080 #### [facility] [address] [place], [address] MCH (RBC) [Entitic mass] 28.7 pg Normal 27.0-32.0 [facility] Comment on above: Performed By: #### L 501.080 #### [facility] [address] [place] [place], [address] MCHC (RBC) [Mass/Vol] 31.8 g/dL Low 32-36 [facility] Comment on above: Performed By: #### L 501.080 #### [facility] [address] [place], [address] MCV (RBC) [Entitic vol] 90.4 fL Normal 81-99 [facility] Comment on above: Performed By: #### L 501.080 #### [facility] [address] [place], [address] Monocytes/100 WBC (Bld) 9.2 % Normal 0-10 [facility] Comment on above: Performed By: #### L 501.080 #### [facility] [address] [place], [address] Neutrophils/100 WBC (Bld) 73.8 % High 47-70 [facility] Comment on above: Performed By: #### L 501.080 #### [facility] [address] [place], [address] Nucleated RBC (Bld) [#/Vol] 0 10*3/uL Normal 0-5 [facility] Comment on above: Performed By: #### L 501.080 #### [facility] [address] [place], [address] Platelet mean volume (Bld) [Entitic vol] 10.4 fL Normal 6.2-12.0 [facility] Comment on above: Performed By: #### L 501.080 #### [facility] [address] [place], [address] Platelets (Bld) [#/Vol] 199 10*3/uL Normal 150-450 [facility] Comment on above: Performed By: #### L 501.080 #### [facility] [address] [place], [address] RBC (Bld) [#/Vol] 2.82 10*6/uL Low 4.2-5.4 [facility] Comment on above: Performed By: #### L 501.080 #### [facility] [address] [place], [address] RDW SD 55.2 fl High 35.1-43.9 [facility] Comment on above: Performed By: #### L 501.080 #### [facility] [address] [place], [place], [address] WBC (Bld) [#/Vol] 8.8 10*3/uL Normal 4.4-11.0 [facility] Comment on above: Performed By: #### L 501.080 #### [facility] [address] [place], [place], [address] Determination of erythrocyte mean corpuscular volume (MCV)Ordered By: Gomez Johansen on 12-21-2023 MCV (RBC) [Entitic vol] 90.4 fL 81-99 [facility] Erythrocyte distribution wid th ratioOrdered By: Gomezijeoma Johansen on 12-21-2023 Erythrocyte distribution width (RBC) [Ratio] 17.2 % 11.6-14.6 [facility] Erythrocyte distribution wid th standard deviationOrdered By: Gomezijeoma Johansen on 12-21-2023 Erythrocyte distribution width (RBC) [Entitic vol] 55.2 fL 35.1-43.9 [facility] Hematocrit Auto (Bld) [Volum e fraction]Ordered By: Gomezijeoma Johansen on 12-21-2023 Hematocrit (Bld) [Volume fraction] 25.5 % 37-47 [facility] Immature granulocytes/100 WB C Auto (Bld)Ordered By: Gomezijeoma Johansen on 12-21-2023 Immature granulocytes/100 WBC (Bld) 1.100 % 0.0-0.9 [facility] Comment on above: IG% - Immature Granu locytes (promyelocytes, myelocytes and metamyelocytes) > 1% indicates that a LEFT SHIFT is Present. Laboratory - Chemistry and C hemistry - challengeOrdered By: Gomez Johansen on 12-21-2023 CO2 [Moles/Vol] 27.0 mmol/L 21.0-32.0 [facility] Urea nitrogen/Creatinine [Mass ratio] 16.0 mg/mg 10-20 [facility] Laboratory - Hematology and Cell countsOrdered By: Gomez Johansen on 12-21-2023 MCH (RBC) [Entitic mass] 28.7 pg 27.0-32.0 [facility] MCHC (RBC) [Mass/Vol] 31.8 g/dL 32-36 [facility] Nucleated RBC/100 WBC (Bld) [Ratio] 0 % 0-5 [facility] Platelet mean volume (Bld) [Entitic vol] 10.4 fL 6.2-12.0 [facility] Platelets (Bld) [#/Vol] 199 10*3/uL 150-450 [facility] No Panel InformationOrdered By: Gomez Johansen on 12-21-2023 Estimated Creatinine Clearance Calc 49.24 ml/min [facility] Estimated GFR (MDRD) Amer 179 mL/min >60 [facility] Comment on above: GFR Calc Estimated GFR (MDRD) Non-Af Amer 148 mL/min >60 [facility] Comment on above: Non- GFR Calc RBC Auto (Bld) [#/Vol]Ordere d By: Gomez Johansen on 12-21-2023 RBC (Bld) [#/Vol] 2.82 10*6/uL 4.2-5.4 [facility] Serum or plasma calcium haris urement (mass/volume)Ordered By: Gomez Johansen on 12-21-2023 Calcium [Mass/Vol] 8.3 mg/dL 8.5-10.1 [facility] Serum or plasma creatinine m easurement (mass/volume)Ordered By: Gomez Johansen on 12-21-2023 Creatinine [Mass/Vol] 0.44 mg/dL 0.55-1.02 [facility] Comment on above: The validity of the calculated GFR & GFRAA in patients over 70 years has not been determined. Clinical correlation is essential. Serum or plasma urea nitroge n measurement (mass/volume)Ordered By: Gomez Johansen on 12-21-2023 Urea nitrogen [Mass/Vol] 7 mg/dL 7-18 [facility] Thin prep Papanicolaou smear with manual screeningOrdered By: Gomez Johansen on 12-21-2023 Thin prep Papanicolaou smear with manual screening 4 5-15 [facility] Basic Metabolic Profile (BMP )on 02-18-2024 BUN/CRE 14.3 RATIO Normal 10-20 [facility] Comment on above: Performed By: #### L 100.0100, L500.2500 ####[facility] [address] [place], [address] CA,Total 7.9 mg/dL Low 8.5-10.1 [facility] Comment on above: Performed By: #### L 100.0100, L500.2500 ####[facility] [address] [place], [address] Chloride [Moles/Vol] 109 mmol/L High 98-107 [facility] Comment on above: Performed By: #### L 100.0100, L500.2500 ####[facility] [address] [place], [address] CO2 [Moles/Vol] 30.0 mmol/L Normal 21.0-32.0 [facility] Comment on above: Performed By: #### L 100.0100, L500.2500 ####[facility] [address] [place], [address] Creatinine [Mass/Vol] 0.49 mg/dL Low 0.55-1.02 [facility] Comment on above: Result Comment: The validity of the calculated GFR GFRAA in patients over 70 years has not been determined. Clinical correlation is essential. Performed By: #### L 100.0100, L500.2500 ####[facility] [address] [place], [address] ECRCL 49.24 ml/min Normal [facility] Comment on above: Performed By: #### L 100.0100, L500.2500 ####[facility] [address] [place], [address] EST GFR - AA 156 mL/min Normal >60 [facility] Comment on above: Result Comment: Afri can [place] GFR Calc Performed By: #### L 100.0100, L500.2500 ####[facility] [address] [place], [address] GAP 3 Low 5-15 [facility] Comment on above: Performed By: #### L 100.0100, L500.2500 ####[facility] [address] [place], [address] GFR/1.73 sq M.predicted among non-blacks MDRD (S/P/Bld) [Vol rate/Area] 129 mL/min/{1.73_m2} Normal >60 [facility] Comment on above: Result Comment: Non- GFR Calc Performed By: #### L 100.0100, L500.2500 ####[facility] [address] [place], [address] Glucose [Mass/Vol] 87 mg/dL Normal 74-106 [facility] Comment on above: Performed By: #### L 100.0100, L500.2500 ####[facility] [address] [place], [address] Potassium [Moles/Vol] 2.9 mmol/L Low 3.5-5.1 [facility] Comment on above: Performed By: #### L 100.0100, L500.2500 ####[facility] [address] [place], [address] Sodium [Moles/Vol] 142 mmol/L Normal 136-145 [facility] Comment on above: Performed By: #### L 100.0100, L500.2500 ####[facility] [address] [place], [address] Urea nitrogen [Mass/Vol] 7 mg/dL Normal 7-18 [facility] Comment on above: Performed By: #### L 100.0100, L500.2500 ####[facility] [address] [place], [address] Bedside Glucoseon 12-20-2023 FINGERSTICK GLU 249 mg/dL High 74-106 [facility] Comment on above: Result Comment: SYDNEY GEMENT OF PATIENT CARE PER NURSING PROTOCOL Performed By: #### L 501.080 ####[facility] [address] [place], [address] FINGERSTICK GLU 222 mg/dL High 74-106 [facility] Comment on above: Result Comment: SYDNEY GEMENT OF PATIENT CARE PER NURSING PROTOCOL Performed By: #### L 501.080 #### [facility] [address] [place], [address] FINGERSTICK GLU 77 mg/dL Normal 74-106 [facility] Comment on above: Result Comment: SYDNEY GEMENT OF PATIENT CARE PER NURSING PROTOCOL Performed By: #### L 501.080 ####[facility] [address] [place], [address] CBC W/Diff, Automatedon 12-03 Absolute Lymph 1.07 X10 3/uL Normal 0.83-4.51 [facility] Comment on above: Performed By: #### L 100.0100, L500.2500 ####[facility] [address] [place], [address] Absolute Neut 6.0 X10 3/uL Normal 2.0-7.7 [facility] Comment on above: Performed By: #### L 100.0100, L500.2500 ####[facility] [address] [place], [address] Basophils/100 WBC (Bld) 0.6 % Normal 0-1 [facility] Comment on above: Performed By: #### L 100.0100, L500.2500 ####[facility] [address] [place], [address] Eosinophils/100 WBC (Bld) 2.2 % Normal 0-5 [facility] Comment on above: Performed By: #### L 100.0100, L500.2500 ####[facility] [address] [place], [address] Erythrocyte distribution width (RBC) [Ratio] 17.7 % High 11.6-14.6 [facility] Comment on above: Performed By: #### L 100.0100, L500.2500 ####[facility] [address] [place], [address] Hematocrit (Bld) [Volume fraction] 24.8 % Low 37-47 [facility] Comment on above: Performed By: #### L 100.0100, L500.2500 ####[facility] [address] [place], [address] Hemoglobin (Bld) [Mass/Vol] 8.1 g/dL Low 12.0-15.0 [facility] Comment on above: Performed By: #### L 100.0100, L500.2500 ####[facility] [address] [place], [address] IG% 1.600 High 0.0-0.9 [facility] Comment on above: Result Comment: IG% - Immature Granulocytes (promyelocytes, myelocytes and metamyelocytes) > 1% indicates that a LEFT SHIFT is Present. Performed By: #### L 100.0100, L500.2500 ####[facility] [address] [place], [address] Lymphocytes/100 WBC (Bld) 13.0 % Low 19-41 [facility] Comment on above: Performed By: #### L 100.0100, L500.2500 ####[facility] [address] [place], [address] MCH (RBC) [Entitic mass] 29.2 pg Normal 27.0-32.0 [facility] Comment on above: Performed By: #### L 100.0100, L500.2500 ####[facility] [address] [place], [address] MCHC (RBC) [Mass/Vol] 32.7 g/dL Normal 32-36 [facility] Comment on above: Performed By: #### L 100.0100, L500.2500 ####[facility] [address] [place], [address] MCV (RBC) [Entitic vol] 89.5 fL Normal 81-99 [facility] Comment on above: Performed By: #### L 100.0100, L500.2500 ####[facility] [address] [place], [address] Monocytes/100 WBC (Bld) 9.4 % Normal 0-10 [facility] Comment on above: Performed By: #### L 100.0100, L500.2500 ####[facility] [address] [place], [address] Neutrophils/100 WBC (Bld) 73.2 % High 47-70 [facility] Comment on above: Performed By: #### L 100.0100, L500.2500 ####[facility] [address] [place], [address] Nucleated RBC (Bld) [#/Vol] 0 10*3/uL Normal 0-5 [facility] Comment on above: Performed By: #### L 100.0100, L500.2500 ####[facility] [address] [place], [address] Platelet mean volume (Bld) [Entitic vol] 10.2 fL Normal 6.2-12.0 [facility] Comment on above: Performed By: #### L 100.0100, L500.2500 ####[facility] [address] [place], [address] Platelets (Bld) [#/Vol] 188 10*3/uL Normal 150-450 [facility] Comment on above: Performed By: #### L 100.0100, L500.2500 ####[facility] [address] [place], [address] RBC (Bld) [#/Vol] 2.77 10*6/uL Low 4.2-5.4 [facility] Comment on above: Performed By: #### L 100.0100, L500.2500 ####[facility] [address] [place], [address] RDW SD 54.5 fl High 35.1-43.9 [facility] Comment on above: Performed By: #### L 100.0100, L500.2500 ####[facility] [address] [place], [address] WBC (Bld) [#/Vol] 8.2 10*3/uL Normal 4.4-11.0 [facility] Comment on above: Performed By: #### L 100.0100, L500.2500 ####[facility] [address] [place], [address] Bedside Glucoseon 12-19-2023 FINGERSTICK GLU 170 mg/dL High 74-106 [facility] Comment on above: Result Comment: SYDNEY GEMENT OF PATIENT CARE PER NURSING PROTOCOL Performed By: #### L 501.080 #### [facility] [address] [place], [address] FINGERSTICK GLU 207 mg/dL High 74-106 [facility] Comment on above: Result Comment: SYDNEY GEMENT OF PATIENT CARE PER NURSING PROTOCOL Performed By: #### L 100.0100, L500.4050 #### [facility] [address] [place], [address] FINGERSTICK GLU 119 mg/dL High 74-106 [facility] Comment on above: Result Comment: SYDNEY GEMENT OF PATIENT CARE PER NURSING PROTOCOL Performed By: #### L 501.080 #### [facility] [address] [place], [address] FINGERSTICK GLU 191 mg/dL High 74-106 [facility] Comment on above: Result Comment: SYDNEY GEMENT OF PATIENT CARE PER NURSING PROTOCOL Performed By: #### L 501.080 #### [facility] [address] [place], [address] FINGERSTICK GLU 153 mg/dL High 74-106 [facility] Comment on above: Result Comment: SYDNEY GEMENT OF PATIENT CARE PER NURSING PROTOCOL Performed By: #### L 501.080 #### [facility] [address] [place], [address] CBC W/Diff, Automatedon 12-03 Absolute Lymph 1.07 X10 3/uL Normal 0.83-4.51 [facility] Comment on above: Performed By: #### L 501.080 #### [facility] [address] [place], [address] Absolute Neut 5.1 X10 3/uL Normal 2.0-7.7 [facility] Comment on above: Performed By: #### L 501.080 #### [facility] [address] [place], [address] Basophils/100 WBC (Bld) 0.7 % Normal 0-1 [facility] Comment on above: Performed By: #### L 501.080 #### [facility] [address] [place], [address] Eosinophils/100 WBC (Bld) 2.9 % Normal 0-5 [facility] Comment on above: Performed By: #### L 501.080 #### [facility] [address] [place], [address] Erythrocyte distribution width (RBC) [Ratio] 18.1 % High 11.6-14.6 [facility] Comment on above: Performed By: #### L 501.080 #### [facility] [address] [place], [address] Hematocrit (Bld) [Volume fraction] 24.2 % Low 37-47 [facility] Comment on above: Performed By: #### L 501.080 #### [facility] [address] [place], [address] IG% 2.500 High 0.0-0.9 [facility] Comment on above: Result Comment: IG% - Immature Granulocytes (promyelocytes, myelocytes and metamyelocytes) > 1% indicates that a LEFT SHIFT is Present. Performed By: #### L 501.080 #### [facility] [address] [place], [address] Lymphocytes/100 WBC (Bld) 14.7 % Low 19-41 [facility] Comment on above: Performed By: #### L 501.080 #### [facility] [address] [place], [address] MCH (RBC) [Entitic mass] 29.0 pg Normal 27.0-32.0 [facility] Comment on above: Performed By: #### L 501.080 #### [facility] [address] [place], [address] MCHC (RBC) [Mass/Vol] 33.1 g/dL Normal 32-36 [facility] Comment on above: Performed By: #### L 501.080 #### [facility] [address] [place], [address] MCV (RBC) [Entitic vol] 87.7 fL Normal 81-99 [facility] Comment on above: Performed By: #### L 501.080 #### [facility] [address] [place], [address] Monocytes/100 WBC (Bld) 9.8 % Normal 0-10 [facility] Comment on above: Performed By: #### L 501.080 #### [facility] [address] [place], [address] Neutrophils/100 WBC (Bld) 69.4 % Normal 47-70 [facility] Comment on above: Performed By: #### L 501.080 #### [facility] [address] [place], [address] Nucleated RBC (Bld) [#/Vol] 0 10*3/uL Normal 0-5 [facility] Comment on above: Performed By: #### L 501.080 #### [facility] [address] [place], [address] Platelet mean volume (Bld) [Entitic vol] 10.0 fL Normal 6.2-12.0 [facility] Comment on above: Performed By: #### L 501.080 #### [facility] [address] [place], [address] Platelets (Bld) [#/Vol] 168 10*3/uL Normal 150-450 [facility] Comment on above: Performed By: #### L 501.080 #### [facility] [address] [place], [address] RBC (Bld) [#/Vol] 2.76 10*6/uL Low 4.2-5.4 [facility] Comment on above: Performed By: #### L 501.080 #### [facility] [address] [place], [address] RDW SD 53.6 fl High 35.1-43.9 [facility] Comment on above: Performed By: #### L 501.080 #### [facility] [address] [place], [address] WBC (Bld) [#/Vol] 7.3 10*3/uL Normal 4.4-11.0 [facility] Comment on above: Performed By: #### L 501.080 #### [facility] [address] [place], [address] HH, Hemoglobin AND Hematocri ton 12-19-2023 Hematocrit (Bld) [Volume fraction] 24.0 % Low 37-47 [facility] Comment on above: Performed By: #### L 501.080 #### [facility] [address] [place], [address] Hemoglobin (Bld) [Mass/Vol] 8.0 g/dL Low 12.0-15.0 [facility] Comment on above: Performed By: #### L 501.080 #### [facility] [address] [place], [address] MR/PN.GIon 12-19-2023 MR/PN.GI [facility] Medical Records Department [address] [place] [address] Progress Note - GI 12/19/23 1634 MR#: [id number] Acct: [id number] Name: KELLIE DOZIER MARIETTA Rep #: [id number] : 1945 78 From: Cullen Ferrer DO PCP: Dr. Santo Love MD Status:ADM IN Location: [place] [address] Subjective Subjective Patient underwent repeat emergent upper endoscopy for GI bleed. He was discovered to have large peptic ulcer that was clipped and cauterized. Her hemoglobin did go down slightly. She was receiving transfusion of 1 unit packed red blood cells. She states that she is hungry and would like to have her diet advanced as tolerated. Objective Data Objective Data Vital Signs: Vital Signs Temp Pulse Resp BP Pulse Ox O2 Del Method 100.1 F H 90 14 175/73 H 97 Room Air 12/19/23 16:00 12/19/23 16:00 12/19/23 16:00 12/19/23 16:00 12/19/23 16:00 12/19/23 16:00 Oxygen Delivery Method Room Air Weight: 137 lb 9.095 oz Body Mass Index (BMI) 23.6 Intake Output: Intake and Output for Last 24 Hours 12/17/23 12/18/23 12/19/23 23:59 23:59 23:59 Intake Total 851 / 851 1440 / 1440 698.83 / 698.83 Output Total 1275 / 1725 3050 / 4875 4600 / 4600 Balance -424 / -874 -1610 / -3435 -3901.17 / -3901.17 Lab / Micro Data 12/19/23 11:40 12/18/23 07:15 Labs: Laboratory Results - last 24 hr 12/18/23 16:45: Hgb 8.2 L, Hct 24.9 L 12/18/23 22:28: POC Glucose 153 H 12/19/23 05:09: WBC 7.3, RBC 2.76 L, Hgb 8.0 L, Hct 24.2 L, MCV 87.7, MCH 29.0, MCHC 33.1, RDW Std Deviation 53.6 H, RDW Coeff of Emperatriz 18.1 H, Plt Count 168, MPV 10.0, Immature Gran % (Auto) 2.500 H, Neut % (Auto) 69.4, Lymph % (Auto) 14.7 L, Bartow % (Auto) 9.8, Eos % (Auto) 2.9, Baso % (Auto) 0.7, Absolute Neuts (auto) 5.1, Absolute Lymphs (auto) 1.07, Nucleated RBC % 0 12/19/23 07:40: POC Glucose 191 H 12/19/23 11:09: POC Glucose 119 H 12/19/23 11:40: Hgb 8.0 L, Hct 24.0 L 12/19/23 16:07: POC Glucose 207 H Physical Exam Narrative General: Alert, Oriented x3, Cooperative, No apparent distress HEENT: Atraumatic, PERRLA, EOMI, Normocephalic Oral: Moist Mucosa Neck: Supple, No JVD Lungs: Diminished, Normal air movement, No rhonchi, No wheeze, No rales Cardiovascular: Regular rate, Regular Rhythm, Normal S1, Normal S2, No murmurs Abdomen: Soft, nontender, Non-Distended, No Hepato-splenomegaly Extremities: No edema, Capillary Refill Less than 3 Seconds Skin: No rashes, No breakdown, pallor Musculoskeletal: No Tenderness to Palpation of Joints or Extremities Neurological: No focal neurological deficits, Motor Exam 5/5 strength throughout, Sensory exam intact to light touch and pain Psych/Mental Status: Normal Affect, Appropriate Assessment Plan Assessment/Plan (1) UGIB (upper gastrointestinal bleed): (2) Acute blood loss anemia: PLAN: Plan Patient is a 78-year-old female who presented to [facility] ED on 12/11/2023 with hematemesis. Findings: The examined esophagus was normal. One oozing cratered gastric ulcer with pigmented material was found on the greater curvature of the stomach. The lesion was 6 mm in largest dimension. Area was successfully injected with 5 mL of a 0.1 mg/mL solution of epinephrine for drug delivery. To stop active bleeding, hemostatic spray was deployed. Five sprays were applied. There was no bleeding at the end of the procedure. Coagulation for hemostasis using heater probe was successful. Estimated blood loss was minimal. No gross lesions were noted in the first portion of the duodenum. One 5 mm angiodysplastic lesion with bleeding was found in the first portion of the duodenum. Coagulation for hemostasis using argon plasma at 0.3 liters/minute and 20 keller was successful. Estimated blood loss was minimal. Impression: - Normal esophagus. - Oozing gastric ulcer with pigmented material. Injected. hemostatic spray applied. Treated with a heater probe. - No gross lesions in the first portion of the duodenum. - No specimens collected. Recommendation: - Return patient to hospital chan for ongoing care. - NPO. - Continue present medications. Her hemoglobin is still slightly down to 6.8 from 7.9 to 6.8. Also her BUN to creatinine ratio is still elevated. She may be losing around the site even though it was treated yesterday due to poor wound healing. She also had some focal stranding consistent with enteritis extending to the cecum. Her CTA did not show any signs of bleeding. Her hemoglobin seems stable at 8. She can have her diet advanced as tolerated. . 12/19/23 1635 Cosigner Signature (if applicable): CC: Signed Normal [facility] Basic Metabolic Profile (BMP )on 12-18-2023 BUN/CRE 26.4 RATIO High 10-20 [facility] Comment on above: Performed By: #### L 501.080 #### [facility] [address] [place], [address] CA,Total 7.9 mg/dL Low 8.5-10.1 [facility] Comment on above: Performed By: #### L 501.080 #### [facility] [address] [place], [address] Chloride [Moles/Vol] 113 mmol/L High 98-107 [facility] Comment on above: Performed By: #### L 501.080 #### [facility] [address] [place], [address] CO2 [Moles/Vol] 25.0 mmol/L Normal 21.0-32.0 [facility] Comment on above: Performed By: #### L 501.080 #### [facility] [address] [place], [address] Creatinine [Mass/Vol] 0.57 mg/dL Normal 0.55-1.02 [facility] Comment on above: Result Comment: The validity of the calculated GFR GFRAA in patients over 70 years has not been determined. Clinical correlation is essential. Performed By: #### L 501.080 #### [facility] [address] [place], [address] ECRCL 49.24 ml/min Normal [facility] Comment on above: Performed By: #### L 501.080 #### [facility] [address] [place], [address] EST GFR - AA 132 mL/min Normal >60 [facility] Comment on above: Result Comment: Afri can Z[place]ian GFR Calc Performed By: #### L 501.080 #### [facility] [address] [place], [address] GAP 4 Low 5-15 [facility] Comment on above: Performed By: #### L 501.080 #### [facility] [address] [place], [address] GFR/1.73 sq M.predicted among non-blacks MDRD (S/P/Bld) [Vol rate/Area] 109 mL/min/{1.73_m2} Normal >60 [facility] Comment on above: Result Comment: Non- GFR Calc Performed By: #### L 501.080 #### [facility] [address] [place], [address] Glucose [Mass/Vol] 206 mg/dL High 74-106 [facility] Comment on above: Result Comment: Gluc ose result greater than or equal to 200 mg/dL suggests DIABETES MELLITUS per A.D.A. criteria. Performed By: #### L 501.080 #### [facility] [address] [place], [address] Potassium [Moles/Vol] 3.5 mmol/L Normal 3.5-5.1 [facility] Comment on above: Performed By: #### L 501.080 #### [facility] [address] [place], [address] Sodium [Moles/Vol] 142 mmol/L Normal 136-145 [facility] Comment on above: Performed By: #### L 501.080 #### [facility] [address] [place], [address] Urea nitrogen [Mass/Vol] 15 mg/dL Normal 7-18 [facility] Comment on above: Performed By: #### L 501.080 #### [facility] [address] [place], [address] Bedside Glucoseon 12-18-2023 FINGERSTICK GLU 194 mg/dL High 74-106 [facility] Comment on above: Result Comment: SYDNEY ANDERSON OF PATIENT CARE PER NURSING PROTOCOL Performed By: #### L 501.080 #### [facility] [address] [place], [address] FINGERSTICK GLU 222 mg/dL High 74-106 [facility] Comment on above: Result Comment: SYDNEY GEMENT OF PATIENT CARE PER NURSING PROTOCOL Performed By: #### L 501.080 ####[facility] [address] [place], [address] FINGERSTICK GLU 171 mg/dL High 74-106 [facility] Comment on above: Result Comment: SYDNEY GEMENT OF PATIENT CARE PER NURSING PROTOCOL Performed By: #### L 501.080 #### [facility] [address] [place], [address] FINGERSTICK GLU 199 mg/dL High 74-106 [facility] Comment on above: Result Comment: SYDNEY GEMENT OF PATIENT CARE PER NURSING PROTOCOL Performed By: #### L 501.080 ####[facility] [address] [place], [address] CBC W/Diff, Automatedon 12-03 Absolute Lymph 1.15 X10 3/uL Normal 0.83-4.51 [facility] Comment on above: Order Comment: REDRA W. PREVIOUS SPECIMEN REJECTED DUE TOQNS. 12/18/23 0810 Genet Wood. Performed By: #### L 501.080 #### [facility] [address] [place], [address] Absolute Neut 6.5 X10 3/uL Normal 2.0-7.7 [facility] Comment on above: Order Comment: REDRA W. PREVIOUS SPECIMEN REJECTED DUE TOQNS. 12/18/23 0810 Genet Wood. Result Comment: This specimen has been REJECTED due to Laboratory criteria: Quanity Not Sufficient. ONI has been notified of need of recollection. 12/18/23 0809 Genet Wood Performed By: #### L 501.080 #### [facility] [address] [place], [address] Basophils/100 WBC (Bld) 0.8 % Normal 0-1 [facility] Comment on above: Order Comment: REDRA W. PREVIOUS SPECIMEN REJECTED DUE TOQNS. 12/18/2310 Genet R Gloster. Performed By: #### L 501.080 #### [facility] [address] [place], [address] Eosinophils/100 WBC (Bld) 2.9 % Normal 0-5 [facility] Comment on above: Order Comment: REDRA W. PREVIOUS SPECIMEN REJECTED DUE TOQNS. 12/18/23809 Genet R Gloster. Performed By: #### L 501.080 #### [facility] [address] [place], [address] Erythrocyte distribution width (RBC) [Ratio] 18.3 % High 11.6-14.6 [facility] Comment on above: Order Comment: REDRA W. PREVIOUS SPECIMEN REJECTED DUE TOQNS. 12/18/23809 Genet R Nina. Result Comment: This specimen has been REJECTED due to Laboratory criteria: Quanity Not Sufficient. ONI has been notified of need of recollection. 12/18/23808 Genet R Nina Performed By: #### L 501.080 #### [facility] [address] [place], [address] Hematocrit (Bld) [Volume fraction] 26.1 % Low 37-47 [facility] Comment on above: Order Comment: REDRA W. PREVIOUS SPECIMEN REJECTED DUE TOQNS. 12/18/2310 Genet R Nina. Result Comment: This specimen has been REJECTED due to Laboratory criteria: Quanity Not Sufficient. ONI has been notified of need of recollection. 12/18/23808 Genet R Nina Performed By: #### L 501.080 #### [facility] [address] [place], [address] Hemoglobin (Bld) [Mass/Vol] 8.5 g/dL Low 12.0-15.0 [facility] Comment on above: Order Comment: REDRA W. PREVIOUS SPECIMEN REJECTED DUE TOQNS. 12/18/2310 Genet R Nina. Result Comment: This specimen has been REJECTED due to Laboratory criteria: Quanity Not Sufficient. ONI has been notified of need of recollection. 12/18/23808 Genet R Nina Performed By: #### L 501.080 #### [facility] [address] [place], [address] IG% 4.100 High 0.0-0.9 [facility] Comment on above: Order Comment: REDRA W. PREVIOUS SPECIMEN REJECTED DUE TOQNS. 12/18/23809 Genet R Nina. Result Comment: IG% - Immature Granulocytes (promyelocytes, myelocytes and metamyelocytes) > 1% indicates that a LEFT SHIFT is Present. Performed By: #### L 501.080 #### [facility] [address] [place], [address] Lymphocytes/100 WBC (Bld) 12.3 % Low 19-41 [facility] Comment on above: Order Comment: REDRA W. PREVIOUS SPECIMEN REJECTED DUE TOQNS. 12/18/23809 Genet R Gloster. Performed By: #### L 501.080 #### [facility] [address] [place], [address] MCH (RBC) [Entitic mass] 28.8 pg Normal 27.0-32.0 [facility] Comment on above: Order Comment: REDRA W. PREVIOUS SPECIMEN REJECTED DUE TOQNS. 12/18/2310 Genet R Gloster. Result Comment: This specimen has been REJECTED due to Laboratory criteria: Quanity Not Sufficient. ONI has been notified of need of recollection. 12/18/23808 Genet R Gloster Performed By: #### L 501.080 #### [facility] [address] [place], [address] MCHC (RBC) [Mass/Vol] 32.6 g/dL Normal 32-36 [facility] Comment on above: Order Comment: REDRA W. PREVIOUS SPECIMEN REJECTED DUE TOQNS. 12/18/2310 Genet R Gloster. Result Comment: This specimen has been REJECTED due to Laboratory criteria: Quanity Not Sufficient. ONI has been notified of need of recollection. 12/18/23808 Genet R Gloster Performed By: #### L 501.080 #### [facility] [address] [place], [address] MCV (RBC) [Entitic vol] 88.5 fL Normal 81-99 [facility] Comment on above: Order Comment: REDRA W. PREVIOUS SPECIMEN REJECTED DUE TOQNS. 12/18/2310 Genet R Nina. Result Comment: This specimen has been REJECTED due to Laboratory criteria: Quanity Not Sufficient. ONI has been notified of need of recollection. 12/18/23808 Genet R Nina Performed By: #### L 501.080 #### [facility] [address] [place], [address] Monocytes/100 WBC (Bld) 9.9 % Normal 0-10 [facility] Comment on above: Order Comment: REDRA W. PREVIOUS SPECIMEN REJECTED DUE TOQNS. 12/18/2310 Genet R Nina. Performed By: #### L 501.080 #### [facility] [address] [place], [address] Neutrophils/100 WBC (Bld) 70.0 % Normal 47-70 [facility] Comment on above: Order Comment: REDRA W. PREVIOUS SPECIMEN REJECTED DUE TOQNS. 12/18/2310 Genet R Nina. Result Comment: This specimen has been REJECTED due to Laboratory criteria: Quanity Not Sufficient. ONI has been notified of need of recollection. 12/18/23808 Genet R Gloster Performed By: #### L 501.080 #### [facility] [address] [place], [address] Nucleated RBC (Bld) [#/Vol] 0.4 10*3/uL Normal 0-5 [facility] Comment on above: Order Comment: REDRA W. PREVIOUS SPECIMEN REJECTED DUE TOQNS. 12/18/23809 Genet R Gloster. Performed By: #### L 501.080 #### [facility] [address] [place], [address] Platelet mean volume (Bld) [Entitic vol] 10.2 fL Normal 6.2-12.0 [facility] Comment on above: Order Comment: REDRA W. PREVIOUS SPECIMEN REJECTED DUE TOQNS. 12/18/23809 Genet R Nina. Performed By: #### L 501.080 #### [facility] [address] [place], [address] Platelets (Bld) [#/Vol] 152 10*3/uL Normal 150-450 [facility] Comment on above: Order Comment: REDRA W. PREVIOUS SPECIMEN REJECTED DUE TOQNS. 12/18/2310 Genet R Nina. Result Comment: This specimen has been REJECTED due to Laboratory criteria: Quanity Not Sufficient. ONI has been notified of need of recollection. 12/18/23808 Genet R Gloster Performed By: #### L 501.080 #### [facility] [address] [place], [address] RBC (Bld) [#/Vol] 2.95 10*6/uL Low 4.2-5.4 [facility] Comment on above: Order Comment: REDRA W. PREVIOUS SPECIMEN REJECTED DUE TOQNS. 12/18/23809 Genet R Nina. Result Comment: This specimen has been REJECTED due to Laboratory criteria: Quanity Not Sufficient. ONI has been notified of need of recollection. 12/18/23808 Genet R Nina Performed By: #### L 501.080 #### [facility] [address] [place], [address] RDW SD 54.5 fl High 35.1-43.9 [facility] Comment on above: Order Comment: REDRA W. PREVIOUS SPECIMEN REJECTED DUE TOQNS. 12/18/23809 Genet Sosa Nina. Result Comment: This specimen has been REJECTED due to Laboratory criteria: Quanity Not Sufficient. ONI has been notified of need of recollection. 12/18/23808 Genet R Gloster Performed By: #### L 501.080 #### [facility] [address] [place], [address] WBC (Bld) [#/Vol] 9.3 10*3/uL Normal 4.4-11.0 [facility] Comment on above: Order Comment: REDRA W. PREVIOUS SPECIMEN REJECTED DUE TOQNS. 12/18/23809 Genet R Gloster. Result Comment: This specimen has been REJECTED due to Laboratory criteria: Quanity Not Sufficient. ONI has been notified of need of recollection. 12/18/23808 Genet Sosa Nina Performed By: #### L 501.080 #### [facility] [address] [place], [address] HH, Hemoglobin AND Hematocri ton 12-18-2023 Hematocrit (Bld) [Volume fraction] 24.9 % Low 37-47 [facility] Comment on above: Performed By: #### L 100.0100, L500.4050 #### [facility] [address] [place], [address] Hemoglobin (Bld) [Mass/Vol] 8.2 g/dL Low 12.0-15.0 [facility] Comment on above: Performed By: #### L 100.0100, L500.4050 #### [facility] [address] [place], [address] Basic Metabolic Profile (BMP )on 12-17-2023 BUN/CRE 36.4 RATIO High 10-20 [facility] Comment on above: Performed By: #### L 501.080 #### [facility] [address] [place], [address] CA,Total 7.8 mg/dL Low 8.5-10.1 [facility] Comment on above: Performed By: #### L 501.080 #### [facility] [address] [place], [address] Chloride [Moles/Vol] 111 mmol/L High 98-107 [facility] Comment on above: Performed By: #### L 501.080 #### [facility] [address] [place], [address] CO2 [Moles/Vol] 26.0 mmol/L Normal 21.0-32.0 [facility] Comment on above: Performed By: #### L 501.080 #### [facility] [address] [place], [address] Creatinine [Mass/Vol] 0.66 mg/dL Normal 0.55-1.02 [facility] Comment on above: Result Comment: The validity of the calculated GFR GFRAA in patients over 70 years has not been determined. Clinical correlation is essential. Performed By: #### L 501.080 #### [facility] [address] [place], [address] ECRCL 49.24 ml/min Normal [facility] Comment on above: Performed By: #### L 501.080 #### [facility] [address] [place], [address] EST GFR - AA 111 mL/min Normal >60 [facility] Comment on above: Result Comment: Afri can Zambian GFR Calc Performed By: #### L 501.080 #### [facility] [address] [place], [address] GAP 1 Low 5-15 [facility] Comment on above: Performed By: #### L 501.080 #### [facility] [address] [place], [address] GFR/1.73 sq M.predicted among non-blacks MDRD (S/P/Bld) [Vol rate/Area] 92 mL/min/{1.73_m2} Normal >60 [facility] Comment on above: Result Comment: Non- GFR Calc Performed By: #### L 501.080 #### [facility] [address] [place], [address] Glucose [Mass/Vol] 140 mg/dL High 74-106 [facility] Comment on above: Result Comment: Fast ing Glucose result greater than or equal to 126 mg/dL suggests DIABETES MELLITUS per A.D.A. criteria. Performed By: #### L 501.080 #### [facility] [address] [place], [address] Potassium [Moles/Vol] 3.2 mmol/L Low 3.5-5.1 [facility] Comment on above: Performed By: #### L 501.080 #### [facility] [address] [place], [address] Sodium [Moles/Vol] 138 mmol/L Normal 136-145 [facility] Comment on above: Performed By: #### L 501.080 #### [facility] [address] [place], [address] Urea nitrogen [Mass/Vol] 24 mg/dL High 7-18 [facility] Comment on above: Performed By: #### L 501.080 #### [facility] [address] [place], [address] Bedside Glucoseon 12-17-2023 FINGERSTICK GLU 96 mg/dL Normal 74-106 [facility] Comment on above: Result Comment: SYDNEY ANDERSON OF PATIENT CARE PER NURSING PROTOCOL Performed By: #### L 501.080 ####[facility] [address] [place], [address] FINGERSTICK GLU 130 mg/dL High 74-106 [facility] Comment on above: Result Comment: SYDNEY GEMENT OF PATIENT CARE PER NURSING PROTOCOL Performed By: #### L 501.080 #### [facility] [address] [place], [address] FINGERSTICK GLU 209 mg/dL High 74-106 [facility] Comment on above: Result Comment: SYDNEY GEMENT OF PATIENT CARE PER NURSING PROTOCOL Performed By: #### L 501.080 #### [facility] [address] [place], [address] FINGERSTICK GLU 259 mg/dL High 74-106 [facility] Comment on above: Result Comment: SYDNEY GEMENT OF PATIENT CARE PER NURSING PROTOCOL Performed By: #### L 501.080 #### [facility] [address] [place], [address] CBC W/Diff, Automatedon 02-11 06-2023 Absolute Lymph 1.66 X10 3/uL Normal 0.83-4.51 [facility] Comment on above: Performed By: #### L 100.0100 ####[facility] [address] [place], [address] Absolute Neut 8.8 X10 3/uL High 2.0-7.7 [facility] Comment on above: Performed By: #### L 100.0100 ####[facility] [address] [place], [address] Basophils/100 WBC (Bld) 0.4 % Normal 0-1 [facility] Comment on above: Performed By: #### L 100.0100 ####[facility] [address] [place], [address] Eosinophils/100 WBC (Bld) 2.7 % Normal 0-5 [facility] Comment on above: Performed By: #### L 100.0100 ####[facility] [address] [place], [address] Erythrocyte distribution width (RBC) [Ratio] 15.5 % High 11.6-14.6 [facility] Comment on above: Performed By: #### L 100.0100 ####[facility] [address] [place], [address] Hematocrit (Bld) [Volume fraction] 20.1 % Low 37-47 [facility] Comment on above: Performed By: #### L 100.0100 ####[facility] [address] [place], [address] Hemoglobin (Bld) [Mass/Vol] 6.8 g/dL Low 12.0-15.0 [facility] Comment on above: Performed By: #### L 100.0100 ####[facility] [address] [place], [address] IG% 2.800 High 0.0-0.9 [facility] Comment on above: Result Comment: IG% - Immature Granulocytes (promyelocytes, myelocytes and metamyelocytes) > 1% indicates that a LEFT SHIFT is Present. Performed By: #### L 100.0100 ####[facility] [address] [place], [address] Lymphocytes/100 WBC (Bld) 13.8 % Low 19-41 [facility] Comment on above: Performed By: #### L 100.0100 ####[facility] [address] [place], [address] MCH (RBC) [Entitic mass] 31.1 pg Normal 27.0-32.0 [facility] Comment on above: Performed By: #### L 100.0100 ####[facility] [address] [place], [address] MCHC (RBC) [Mass/Vol] 33.8 g/dL Normal 32-36 [facility] Comment on above: Performed By: #### L 100.0100 ####[facility] [address] [place], [address] MCV (RBC) [Entitic vol] 91.8 fL Normal 81-99 [facility] Comment on above: Performed By: #### L 100.0100 ####[facility] [address] [place], [address] Monocytes/100 WBC (Bld) 7.3 % Normal 0-10 [facility] Comment on above: Performed By: #### L 100.0100 ####[facility] [address] [place], [address] Neutrophils/100 WBC (Bld) 73.0 % High 47-70 [facility] Comment on above: Performed By: #### L 100.0100 ####[facility] [address] [place], [address] Nucleated RBC (Bld) [#/Vol] 0.7 10*3/uL Normal 0-5 [facility] Comment on above: Performed By: #### L 100.0100 ####[facility] [address] [place], [address] Platelet mean volume (Bld) [Entitic vol] 10.1 fL Normal 6.2-12.0 [facility] Comment on above: Performed By: #### L 100.0100 ####[facility] [address] [place], [address] Platelets (Bld) [#/Vol] 144 10*3/uL Low 150-450 [facility] Comment on above: Performed By: #### L 100.0100 ####[facility] [address] [place], [address] RBC (Bld) [#/Vol] 2.19 10*6/uL Low 4.2-5.4 [facility] Comment on above: Performed By: #### L 100.0100 ####[facility] [address] [place], [address] RDW SD 49.6 fl High 35.1-43.9 [facility] Comment on above: Performed By: #### L 100.0100 ####[facility] [address] [place], [address] WBC (Bld) [#/Vol] 12.0 10*3/uL High 4.4-11.0 [facility] Comment on above: Performed By: #### L 100.0100 ####[facility] [address] [place], [address] Consultation - Urologyon Consultation - Urology [facility] Medical Records Department [address] [place] [address] Consultation - Urology 12/17/23 1821 MR#: [id number] Acct: [id number] Name: KELLIE DOZIER MARIETTA Rep #: [id number] : 1945 78 From: Nitish Sood MD PCP: Dr. Santo Love MD Status:ADM IN Location: [place] [id number] HPI Consult Data Date of Consult: 12/17/23 HPI Narrative Reason for Consultation: Retention of urine HPI Narrative: KELLIE DOZIER, is a 78 F who presents to the hospital with a GI bleed she been having a workup for this, CAT scan was done that demonstrated a very distended bladder she was having lower abdominal pain Avina catheter was placed for significant amount of urine. She does have a significant history for having a bladder repair with a bladder tuck done according to the patient long time ago. But prior to admission to the hospital she does not really have a history of retention of urine probably just incomplete emptying without sensation. I think for now she will have to go home with a catheter and she need to follow-up in my office at that point I will remove the catheter and we will also show her how to do self intermittent catheterization in case she does not empty her bladder all the way. But she can be discharged with a catheter and follow-up in my office for an appointment coming with questions. 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 Essential hypertension GERD (gastroesophageal reflux disease) Liver mass Malignant neoplasm of right breast Old myocardial infarction Paroxysmal atrial fibrillation 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 tachycardia Presence of stent in coronary artery ( 05/23/09) Pure hypercholesterolemia Type 2 diabetes mellitus Home Medications apixaban 5 mg tablet (Eliquis) 5 mg PO BID a.fib 09/06/19 [History Last Taken 12/14/23] cyanocobalamin (vitamin B-12) 1,000 mcg tablet 1,000 mcg PO DAILY vitamin deficient 09/06/19 [History Last Taken 12/14/23] pravastatin 80 mg tablet 80 mg PO QHS cholesterol 09/06/19 [History Last Taken 12/14/23] pyridoxine (vitamin B6) 100 mg tablet 100 mg PO DAILY vitamin deficient 09/06/19 [History Last Taken 12/14/23] nitroglycerin 0.4 mg sublingual tablet 0.4 mg sublingual Q5-15M PRN chest pain #90 tabs 09/08/19 [Rx Last Taken Unknown] insulin glargine U-300 conc 300 unit/mL (1.5 mL) subcutaneous pen 20 unit subcut QHS diabetes 08/14/21 [History Last Taken 12/14/23] dulaglutide 4.5 mg/0.5 mL subcutaneous pen injector (Trulicity) 4.5 mg subcut MO 08/06/23 [History Last Taken 12/07/23] verapamil 300 mg capsule 24hr pellet CT,ext.release 300 mg PO QHS blood pressure 08/06/23 [History Last Taken 12/14/23] brimonidine 0.2 % eye drops 1 drp ophthalmic (eye) BID Glaucoma 12/11/23 [History Last Taken 12/14/23] calcium carbonate 600 mg-vitamin D3 5 mcg (200 unit) tablet (Calcium 600 + D(3)) 1 tab PO DAILY vitamin deficient 12/11/23 [History Last Taken 12/14/23] lisinopril 40 mg tablet 20 mg PO DAILY HIG BLOOD PRESSURE 12/11/23 [History Last Taken 12/14/23] pantoprazole 40 mg tablet,delayed release 40 mg PO BID 30 days #60 tabs 12/13/23 [Rx Last Taken 12/14/23] Allergy/AdvReac Type Severity Reaction Status Date / Time alendronate sodium AdvReac Severe myalgias Verified 12/15/23 05:40 [From Fosamax] amoxicillin [Amoxicillin] AdvReac Nausea/Vom/ Verified 12/15/23 05:40 Diarrhea metformin AdvReac Nausea/Vom/ Verified 12/15/23 05:40 Diarrhea shellfish derived AdvReac Nausea/Vom/ Verified 12/15/23 05:40 Diarrhea Family History Mother Hypertension Diabetes CVA (cerebral vascular accident) CAD (coronary artery disease) Father History of DVT (deep vein thrombosis) Surgical History History of eyelid surgery (05/28/23) History of total abdominal hysterectomy Presence of coronary angioplasty implant and graft ( 05/23/09) S/P lumpectomy, right breast Social History household members: family housing: house Smoking Status: Never smoker alcohol intake: never substance use type: does not use caffeine: Yes Type: coffee Number of servings: 2 Lab / Micro Data 12/17/23 10:35 12/17/23 10:35 Labs: Laboratory Results - last 24 hr 12/15/23 06:25: Crossmatch See Detail 12/15/23 06:25: Crossmatch See Detail 12/16/23 18:54: POC Glucose 259 H 12/16/23 21:22: POC Glucose 239 H 12/17/23 08:22: POC Glucose 209 H 12/17/23 10:35: WBC 12.0 H, RBC 2.19 L, Hgb 6.8 L, Hct 20.1 L, MCV 91.8, MCH 31.1, MCHC 33.8, RDW St d Deviation 49.6 H, RDW Coeff of Emperatriz 15.5 H, Plt Count 144 L, MPV 10.1, Immature Gran % (Auto) 2.800 H, Neut % (Auto) 73.0 H, Lymph % (Auto) 13 (more content not included)... Normal [facility] HH, Hemoglobin AND Hematocri ton 12-17-2023 Hematocrit (Bld) [Volume fraction] 26.1 % Low 37-47 [facility] Comment on above: Performed By: #### L 100.0600 ####[facility] [address] [place], [address] Hemoglobin (Bld) [Mass/Vol] 8.7 g/dL Low 12.0-15.0 [facility] Comment on above: Performed By: #### L 100.0600 ####[facility] [address], [address] MR/PN.GIon 12-17-2023 MR/PN.GI [facility] Medical Records Department [address] [place] [address] Progress Note - GI 12/17/23 1739 MR#: [id number] Acct: [id number] Name: KELLIE DOZIER Rep #: [id number] : 1945 78 From: Cullen Friend DO PCP: Dr. Santo Love MD Status:ADM IN Location: [place] [address] Subjective Subjective Patient underwent repeat emergent upper endoscopy for GI bleed. He was discovered to have large peptic ulcer that was clipped and cauterized. Her hemoglobin did go down slightly. She was receiving transfusion of 1 unit packed red blood cells. Objective Data Objective Data Vital Signs: Vital Signs Temp Pulse Resp BP Pulse Ox O2 Del Method 98.8 F 85 16 125/62 H 98 Room Air 12/17/23 16:28 12/17/23 16:28 12/17/23 16:28 12/17/23 16:28 12/17/23 16:28 12/17/23 16:28 Oxygen Delivery Method Room Air Weight: 137 lb 9.095 oz Body Mass Index (BMI) 23.6 Intake Output: Intake and Output for Last 24 Hours 12/15/23 12/16/23 12/17/23 23:59 23:59 23:59 Intake Total 2061 / 2061 517 / 517 750 / 750 Output Total 250 / 250 1600 / 1600 1275 / 1275 Balance 1812 / 1812 -1083 / -1083 -525 / -525 Lab / Micro Data 12/17/23 10:35 12/17/23 10:35 Labs: Laboratory Results - last 24 hr 12/15/23 06:25: Crossmatch See Detail 12/15/23 06:25: Crossmatch See Detail 12/16/23 18:54: POC Glucose 259 H 12/16/23 21:22: POC Glucose 239 H 12/17/23 08:22: POC Glucose 209 H 12/17/23 10:35: WBC 12.0 H, RBC 2.19 L, Hgb 6.8 L, Hct 20.1 L, MCV 91.8, MCH 31.1, MCHC 33.8, RDW Std Deviation 49.6 H, RDW Coeff of Emperatriz 15.5 H, Plt Count 144 L, MPV 10.1, Immature Gran % (Auto) 2.800 H, Neut % (Auto) 73.0 H, Lymph % (Auto) 13.8 L, [place] % (Auto) 7.3, Eos % (Auto) 2.7, Baso % (Auto) 0.4, Absolute Neuts (auto) 8.8 H, Absolute Lymphs (auto) 1.66, Nucleated RBC % 0.7, Sodium 138, Potassium 3.2 L, Chloride 111 H, Carbon Dioxide 26.0, Anion Gap 1 L, BUN 24 H, Creatinine 0.66, Estim Creat Clear Calc 49.24, Est GFR (MDRD) Af Amer 111, Est GFR (MDRD) Non-Af 92, BUN/Creatinine Ratio 36.4 H, Glucose 140 H, Calcium 7.8 L 12/17/23 11:16: POC Glucose 130 H 12/17/23 16:30: POC Glucose 96 Radiography Diagnostic Testing: Radiology Impression Abdomen/Pelvis CTA 12/16/23 17:42 IMPRESSION: 1. Normal caliber aorta with no evidence of aneurysm, stenosis or dissection. Branches are patent. There is no evidence of acute GI bleed. 2. Linear metallic foreign body seen within the stomach that measures roughly 1.5 cm of uncertain etiology. This was not present on the previous exam. 3. Bilateral hydronephrosis and hydroureter. No stones are identified. The bladder is distended and may be causing bilateral vesicoureteral reflux. Electronically Signed: Sidney Benitez MD at 18:38 EST , Physical Exam Const alert, oriented x3, no apparent distress and average body habitus Constitutional Narrative: Pleasant elderly female, sitting up comfortably in bedside chair, conversing normally, no acute distress. General Appearance: cooperative and comfortable HEENT normocephalic, head/scalp atraumatic, hearing grossly normal bilaterally, nasal mucous membranes and turbinates normal and moist oral mucous membranes Eyes PERRL, EOMs intact bilaterally and conjunctivae normal Neck full ROM, no lymphadenopathy and supple Lymph Lymphatic: no lymphadenopathy noted Chest inspection of chest normal Chest Narrative: Mild tenderness to palpation in right lower chest/rib area, no significant bruising noted. Resp normal respiratory effort, normal air movement, no use of accessory muscles and clear to auscultation bilaterally Cardio regular rate, regular rhythm, no murmurs and peripheral pulses 2+ throughout GI normal to inspection, nondistended, normoactive bowel sounds, soft to palpation, non-tender and non- distended Back/Spine normal ROM Extremity normal to inspection, full ROM and no pedal edema Skin no rashes or lesions noted Neuro moves all extremities and no focal motor deficits Speech: speech normal Psych mental status grossly normal Assessment Plan Assessment/Plan (1) UGIB (upper gastrointestinal bleed): (2) Acute blood loss anemia: PLAN: Plan Patient is a 78-year-old female who presented to [facility] ED on 12/11/2023 with hematemesis. Findings: The examined esophagus was normal. One oozing cratered gastric ulcer with pigmented material was found on the greater curvature of the stomach. The lesion was 6 mm in largest dimension. Area was successfully injected with 5 mL of a 0.1 mg/mL solution of epinephrine for drug delivery. To stop active bleeding, hemostatic spray was deployed. Five sprays were applied. There was n (more content not included)... Normal [facility] Basic Metabolic Profile (BMP )on 12-16-2023 BUN/CRE 44.7 RATIO High 10-20 [facility] Comment on above: Performed By: #### L 100.0500, L500.2500 ####[facility] [address] [place], [address] CA,Total 7.9 mg/dL Low 8.5-10.1 [facility] Comment on above: Performed By: #### L 100.0500, L500.2500 ####[facility] [address] [place], [address] Chloride [Moles/Vol] 111 mmol/L High 98-107 [facility] Comment on above: Performed By: #### L 100.0500, L500.2500 ####[facility] [address] [place], [address] CO2 [Moles/Vol] 22.0 mmol/L Normal 21.0-32.0 [facility] Comment on above: Performed By: #### L 100.0500, L500.2500 ####[facility] [address] [place], [address] Creatinine [Mass/Vol] 0.76 mg/dL Normal 0.55-1.02 [facility] Comment on above: Result Comment: The validity of the calculated GFR GFRAA in patients over 70 years has not been determined. Clinical correlation is essential. Performed By: #### L 100.0500, L500.2500 ####[facility] [address] [place], [address] ECRCL 49.24 ml/min Normal [facility] Comment on above: Performed By: #### L 100.0500, L500.2500 ####[facility] [address] [place], [address] EST GFR - AA 94 mL/min Normal >60 [facility] Comment on above: Result Comment: Afri can Zambian GFR Calc Performed By: #### L 100.0500, L500.2500 ####[facility] [address] [place], [address] GAP 8 Normal 5-15 [facility] Comment on above: Performed By: #### L 100.0500, L500.2500 ####[facility] [address] [place], [address] GFR/1.73 sq M.predicted among non-blacks MDRD (S/P/Bld) [Vol rate/Area] 78 mL/min/{1.73_m2} Normal >60 [facility] Comment on above: Result Comment: Non- GFR Calc Performed By: #### L 100.0500, L500.2500 ####[facility] [address] [place], [address] Glucose [Mass/Vol] 270 mg/dL High 74-106 [facility] Comment on above: Result Comment: Gluc ose result greater than or equal to 200 mg/dL suggests DIABETES MELLITUS per A.D.A. criteria. Performed By: #### L 100.0500, L500.2500 ####[facility] [address] [place], [address] Potassium [Moles/Vol] 3.8 mmol/L Normal 3.5-5.1 [facility] Comment on above: Performed By: #### L 100.0500, L500.2500 ####[facility] [address] [place], [address] Sodium [Moles/Vol] 141 mmol/L Normal 136-145 [facility] Comment on above: Performed By: #### L 100.0500, L500.2500 ####[facility] [address] [place], [address] Urea nitrogen [Mass/Vol] 34 mg/dL High 7-18 [facility] Comment on above: Performed By: #### L 100.0500, L500.2500 ####[facility] [address] [place], [address] Bedside Glucoseon 12-16-2023 FINGERSTICK GLU 239 mg/dL High 74-106 [facility] Comment on above: Result Comment: SYDNEY GEMENT OF PATIENT CARE PER NURSING PROTOCOL Performed By: #### L 501.080 #### [facility] [address] [place], [address] FINGERSTICK GLU 424 mg/dL High 74-106 [facility] Comment on above: Result Comment: SYDNEY GEMENT OF PATIENT CARE PER NURSING PROTOCOL Performed By: #### L 100.0100, L500.4050 #### [facility] [address] [place], [address] FINGERSTICK GLU 246 mg/dL High 74-106 [facility] Comment on above: Result Comment: SYDNEY GEMENT OF PATIENT CARE PER NURSING PROTOCOL Performed By: #### L 501.080 ####[facility] [address] [place], [address] CBC-Complete Blood Cnt No Di ffon 12-16-2023 Erythrocyte distribution width (RBC) [Ratio] 15.9 % High 11.6-14.6 [facility] Comment on above: Performed By: #### L 100.0500, L500.2500 ####[facility] [address] [place], [address] Hematocrit (Bld) [Volume fraction] 19.7 % Low 37-47 [facility] Comment on above: Performed By: #### L 100.0500, L500.2500 ####[facility] [address] [place], [address] Hemoglobin (Bld) [Mass/Vol] 6.8 g/dL Low 12.0-15.0 [facility] Comment on above: Performed By: #### L 100.0500, L500.2500 ####[facility] [address] [place], [address] MCH (RBC) [Entitic mass] 30.8 pg Normal 27.0-32.0 [facility] Comment on above: Performed By: #### L 100.0500, L500.2500 ####[facility] [address] [place], [address] MCHC (RBC) [Mass/Vol] 34.5 g/dL Normal 32-36 [facility] Comment on above: Performed By: #### L 100.0500, L500.2500 ####[facility] [address] [place], [address] MCV (RBC) [Entitic vol] 89.1 fL Normal 81-99 [facility] Comment on above: Performed By: #### L 100.0500, L500.2500 ####[facility] [address] [place], [address] Platelet mean volume (Bld) [Entitic vol] 10.6 fL Normal 6.2-12.0 [facility] Comment on above: Performed By: #### L 100.0500, L500.2500 ####[facility] [address] [place], [address] Platelets (Bld) [#/Vol] 156 10*3/uL Normal 150-450 [facility] Comment on above: Performed By: #### L 100.0500, L500.2500 ####[facility] [address] [place], [address] RBC (Bld) [#/Vol] 2.21 10*6/uL Low 4.2-5.4 [facility] Comment on above: Performed By: #### L 100.0500, L500.2500 ####[facility] [address] [place], [address] RDW SD 49.7 fl High 35.1-43.9 [facility] Comment on above: Performed By: #### L 100.0500, L500.2500 ####[facility] [address] [place], [address] WBC (Bld) [#/Vol] 13.9 10*3/uL High 4.4-11.0 [facility] Comment on above: Performed By: #### L 100.0500, L500.2500 ####[facility] [address] [place], [address] CTA Abd/Pelvis W/WO Contrast on 12-16-2023 CTA Abd/Pelvis W/WO Contrast [facility] Imaging Services [address] [place] [address] CTA Abd/Pelvis W/WO Contrast MR#: [id number] Acct: [id number] Name: KELLIE DOZIER Rep #: [id number] : 1945 F 78 From: Sidney Benitez MD PCP: Dr. Santo Love MD Status: ADM IN Study: CTA Abd/Pelvis W/WO Contrast Date of Exam: Exam# [id number] Ordering Dr: Cullen Ferrer DO [id number] EXAM: CT ANGIOGRAPHY ABDOMEN AND PELVIS WITHOUT AND WITH INTRAVENOUS CONTRAST CLINICAL INDICATION: GI bleed TECHNIQUE: Helically acquired angiography images were obtained of the abdomen and pelvis without and with intravenous contrast. This CT exam was performed using one or more of the following dose reduction techniques: automated exposure control, adjustment of the mA and/or kV according to patient size, and/or use of iterative reconstruction technique. MIP reconstructed images were created and reviewed. CONTRAST: IV 100mL [id number] COMPARISON: 12/11/2023 FINDINGS: VASCULATURE: AORTA: The aorta is patent and normal in caliber without aneurysm, stenosis or dissection. CELIAC TRUNK AND MESENTERIC ARTERIES: No acute findings. No occlusion or significant stenosis. No dissection. RENAL ARTERIES: No acute findings. No occlusion or significant stenosis. No dissection. ILIAC ARTERIES: No acute findings. No occlusion or significant stenosis. No dissection. LOWER THORAX: There is mild atelectasis in the base. Lung bases are clear. No cardiomegaly. No significant pericardial effusion. ABDOMEN: LIVER: Unremarkable. Homogeneous. No focal mass. GALLBLADDER AND BILE DUCTS: Unremarkable. No calcified gallstones. No gallbladder distention or wall edema. No intra- or extrahepatic biliary ductal dilation. PANCREAS: Unremarkable. No focal cystic or solid mass. SPLEEN: Unremarkable. Normal size without focal cystic or solid mass. ADRENALS: Unremarkable. No nodules. KIDNEYS AND URETERS: There is bilateral hydronephrosis and hydroureter. There are no obstructing stones. The bladder is distended may be causing bilateral vesicoureteral reflux. Normal renal size and position. STOMACH AND BOWEL: There is there is a linear metallic foreign body in the stomach that measures 1.5 cm in length. No stomach or bowel distention. No focal inflammatory change. PELVIS: APPENDIX: No evidence of acute appendicitis. BLADDER: Unremarkable. REPRODUCTIVE: Unremarkable as visualized. No mass. ABDOMEN and PELVIS: INTRAPERITONEAL SPACE: Unremarkable. No ascites or other fluid collection. No free air. BONES/JOINTS: Unremarkable. No suspicious lytic or blastic abnormality. SOFT TISSUES: Unremarkable. No discrete abdominal or pelvic wall hernia. LYMPH NODES: Unremarkable. No enlarged lymph nodes. CT/CTA Abd/Pelvis W/WO Contrast IMPRESSION: 1. Normal caliber aorta with no evidence of aneurysm, stenosis or dissection. Branches are patent. There is no evidence of acute GI bleed. 2. Linear metallic foreign body seen within the stomach that measures roughly 1.5 cm of uncertain etiology. This was not present on the previous exam. 3. Bilateral hydronephrosis and hydroureter. No stones are identified. The bladder is distended and may be causing bilateral vesicoureteral reflux. Electronically Signed: Sidney Benitez MD at 18:38 EST , CC: Dr. Santo Love MD; Cullen Ferrer, Director [employer]: Signed Normal [facility] MR/PN.Ayan 12-16-2023 MR/PN.GI [facility] Medical Records Department [address] [place] [address] Progress Note - GI 12/16/23 1712 MR#: [id number] Acct: [id number] Name: KELLIE DOZIER Rep #: [id number] : 1945 78 From: Cullen Friend DO PCP: Dr. Santo Love MD Status:ADM IN Location: [place] [address] Subjective Subjective Patient underwent emergent endoscopy yesterday. She denies any abdominal pain. She did have some dark stools overnight. She not have any vomiting overnight. Objective Data Objective Data Vital Signs: Vital Signs Temp Pulse Resp BP Pulse Ox O2 Del Method 98.6 F 95 16 141/75 H 92 Room Air 12/16/23 16:25 12/16/23 16:25 12/16/23 16:25 12/16/23 16:25 12/16/23 16:25 12/16/23 16:25 Oxygen Delivery Method Room Air Weight: 137 lb 9.095 oz Body Mass Index (BMI) 23.6 Intake Output: Intake and Output for Last 24 Hours 12/14/23 12/15/23 12/16/23 23:59 23:59 23:59 Intake Total 2062 / 2062 316 / 316 Output Total 250 / 250 300 / 300 Balance 1812 / 1812 Lab / Micro Data 12/16/23 06:45 12/16/23 06:45 Labs: Laboratory Results - last 24 hr 12/15/23 06:17: Crossmatch See Detail 12/15/23 06:25: Crossmatch See Detail 12/15/23 17:21: POC Glucose 257 H 12/15/23 18:45: WBC 14.1 H, RBC 2.63 L, Hgb 7.9 L, Hct 24.2 L, MCV 92.0, MCH 30.0, MCHC 32.6, RDW Std Deviation 51.6 H, RDW Coeff of Emperatriz 15.7 H, Plt Count 160, MPV 10.5 12/15/23 21:43: POC Glucose 349 H 12/16/23 06:25: POC Glucose 246 H 12/16/23 06:45: WBC 13.9 H, RBC 2.21 L, Hgb 6.8 L, Hct 19.7 L, MCV 89.1, MCH 30.8, MCHC 34.5 D, RDW Std Deviation 49.7 H, RDW Coeff of Emperatriz 15.9 H, Plt Count 156, MPV 10.6, Sodium 141, Potassium 3.8, Chloride 111 H, Carbon Dioxide 22.0, Anion Gap 8, BUN 34 H, Creatinine 0.76, Estim Creat Clear Calc 49.24, Est GFR (MDRD) Af Amer 94, Est GFR (MDRD) Non-Af 78, BUN/Creatinine Ratio 44.7 H, Glucose 270 H, Calcium 7.9 L 12/16/23 12:26: POC Glucose 424 H Physical Exam Const alert, oriented x3, no apparent distress and average body habitus Constitutional Narrative: Pleasant elderly female, sitting up comfortably in bedside chair, conversing normally, no acute distress. General Appearance: cooperative and comfortable HEENT normocephalic, head/scalp atraumatic, hearing grossly normal bilaterally, nasal mucous membranes and turbinates normal and moist oral mucous membranes Eyes PERRL, EOMs intact bilaterally and conjunctivae normal Neck full ROM, no lymphadenopathy and supple Lymph Lymphatic: no lymphadenopathy noted Chest inspection of chest normal Chest Narrative: Mild tenderness to palpation in right lower chest/rib area, no significant bruising noted. Resp normal respiratory effort, normal air movement, no use of accessory muscles and clear to auscultation bilaterally Cardio regular rate, regular rhythm, no murmurs and peripheral pulses 2+ throughout GI normal to inspection, nondistended, normoactive bowel sounds, soft to palpation, non-tender and non-distended Back/Spine normal ROM Extremity normal to inspection, full ROM and no pedal edema Skin no rashes or lesions noted Neuro moves all extremities and no focal motor deficits Speech: speech normal Psych mental status grossly normal Assessment Plan Assessment/Plan (1) UGIB (upper gastrointestinal bleed): (2) Acute blood loss anemia: PLAN: Plan Patient is a 78-year-old female who presented to [facility] ED on 12/11/2023 with hematemesis. Findings: The examined esophagus was normal. One oozing cratered gastric ulcer with pigmented material was found on the greater curvature of the stomach. The lesion was 6 mm in largest dimension. Area was successfully injected with 5 mL of a 0.1 mg/mL solution of epinephrine for drug delivery. To stop active bleeding, hemostatic spray was deployed. Five sprays were applied. There was no bleeding at the end of the procedure. Coagulation for hemostasis using heater probe was successful. Estimated blood loss was minimal. No gross lesions were noted in the first portion of the duodenum. One 5 mm angiodysplastic lesion with bleeding was found in the first portion of the duodenum. Coagulation for hemostasis using argon plasma at 0.3 liters/minute and 20 keller was successful. Estimated blood loss was minimal. Impression: - Normal esophagus. - Oozing gastric ulcer with pigmented material. Injected. hemostatic spray applied. Treated with a heater probe. - No gross lesions in the first portion of the duodenum. - No specimens collected. Recommendation: - Return patient to hospital chan for ongoing care. - NPO. - Continue present medications. Her hemoglobin is still slightly down to 6.8 from 7.9. Also her BUN to creatinine ratio is still elevated. She may be losing around the site even though it was treated yesterday (more content not included)... Normal [facility] Absolute lymphocyte countOrd ered By: Panchito Zavaleta on 12-15-2023 Lymphocytes Auto (Unsp spec) [#/Vol] 1.77 10*3/uL 0.83-4.51 [facility] Automated lymphocyte count a s percentage of total leukocytesOrdered By: Panchito Zavaleta on 12-15-2023 Lymphocytes/100 WBC Auto (Unsp spec) 12.6 % 19-41 [facility] BRCon 12-15-2023 RC Normal [facility] Comment on above: Result Comment: [id number] AN RC TRANSFUSED 12/17/23 1402 Performed By: #### L 501.080 #### [facility] [address] [place], [place], [id number] Result Comment: [id number] AN RC TRANSFUSED 12/16/23 1600 RC Normal [facility] Comment on above: Result Comment: [id number] OP RC TRANSFUSED 12/15/23 1100 [id number] OP RC TRANSFUSED 12/15/23 1509 Performed By: #### B RC ####[facility] [address] [place], [place], [id number] Basic Metabolic Profile (BMP )on 12-15-2023 BUN/CRE 49.0 RATIO High 10-20 [facility] Comment on above: Performed By: #### L 501.080 #### [facility] [address] [place], [address] CA,Total 8.8 mg/dL Normal 8.5-10.1 [facility] Comment on above: Performed By: #### L 501.080 #### [facility] [address] [place], [address] Chloride [Moles/Vol] 109 mmol/L High 98-107 [facility] Comment on above: Performed By: #### L 501.080 #### [facility] [address] [place], [address] CO2 [Moles/Vol] 23.0 mmol/L Normal 21.0-32.0 [facility] Comment on above: Performed By: #### L 501.080 #### [facility] [address] [place], [address] Creatinine [Mass/Vol] 0.84 mg/dL Normal 0.55-1.02 [facility] Comment on above: Result Comment: The validity of the calculated GFR GFRAA in patients over 70 years has not been determined. Clinical correlation is essential. Performed By: #### L 501.080 #### [facility] [address] [place], [address] ECRCL 51.80 ml/min Normal [facility] Comment on above: Performed By: #### L 501.080 #### [facility] [address] [place], [address] EST GFR - AA 84 mL/min Normal >60 [facility] Comment on above: Result Comment: Afri can [place]ian GFR Calc Performed By: #### L 501.080 #### [facility] [address] [place], [address] GAP 9 Normal 5-15 [facility] Comment on above: Performed By: #### L 501.080 #### [facility] [address] [place], [address] GFR/1.73 sq M.predicted among non-blacks MDRD (S/P/Bld) [Vol rate/Area] 70 mL/min/{1.73_m2} Normal >60 [facility] Comment on above: Result Comment: Non- GFR Calc Performed By: #### L 501.080 #### [facility] [address] [place], [address] Glucose [Mass/Vol] 410 mg/dL High 74-106 [facility] Comment on above: Result Comment: Gluc ose result greater than or equal to 200 mg/dL suggests DIABETES MELLITUS per A.D.A. criteria. Performed By: #### L 501.080 #### [facility] [address] [place], [address] Potassium [Moles/Vol] 4.5 mmol/L Normal 3.5-5.1 [facility] Comment on above: Performed By: #### L 501.080 #### [facility] [address] [place], [address] Sodium [Moles/Vol] 141 mmol/L Normal 136-145 [facility] Comment on above: Performed By: #### L 501.080 #### [facility] [address] [place], [address] Urea nitrogen [Mass/Vol] 41 mg/dL High 7-18 [facility] Comment on above: Performed By: #### L 501.080 #### [facility] [address] [place], [address] Basophil percentageOrdered B y: Panchito Zavaleta on 12-15-2023 Basophils/100 WBC (Bld) 0.4 % 0-1 [facility] Chloride [Moles/Vol] 109 mmol/L 98-107 [facility] Eosinophils/100 WBC (Bld) 0.0 % 0-5 [facility] Glucose [Mass/Vol] 410 mg/dL 74-106 [facility] Comment on above: Glucose result great er than or equal to 200 mg/dLsuggests DIABETES MELLITUS per A.D.A. criteria. Hemoglobin (Bld) [Mass/Vol] 6.6 g/dL 12.0-15.0 [facility] Monocytes/100 WBC (Bld) 5.6 % 0-10 [facility] Neutrophils (Bld) [#/Vol] 11.2 10*3/uL 2.0-7.7 [facility] Neutrophils/100 WBC (Bld) 80.0 % 47-70 [facility] Potassium [Moles/Vol] 4.5 mmol/L 3.5-5.1 [facility] Sodium [Moles/Vol] 141 mmol/L 136-145 [facility] WBC (Bld) [#/Vol] 14.0 10*3/uL 4.4-11.0 [facility] Bedside Glucoseon 12-15-2023 FINGERSTICK GLU 349 mg/dL High [address] [place] [address] Comment on above: Result Comment: SYDNEY GEMENT OF PATIENT CARE PER NURSING PROTOCOL Performed By: #### L 501.080 ####[facility] [address] [facility] [place] [address] FINGERSTICK GLU 257 mg/dL High [address] [place] [address] Comment on above: Result Comment: SYDNEY GEMENT OF PATIENT CARE PER NURSING PROTOCOL Performed By: #### L 501.080 ####[facility] [address] [facility] [place] [address] FINGERSTICK GLU 276 mg/dL High [address] [place] [address] Comment on above: Result Comment: SYDNEY GEMENT OF PATIENT CARE PER NURSING PROTOCOL Performed By: #### L 501.080 #### [facility] [address] [facility] [place] [address] FINGERSTICK GLU 320 mg/dL High [address] [place] [address] Comment on above: Result Comment: SYDNEY GEMENT OF PATIENT CARE PER NURSING PROTOCOL Performed By: #### L 100.0100, L500.4050 #### [facility] [address] [place], [address] FINGERSTICK GLU 352 mg/dL High 74-106 [facility] Comment on above: Result Comment: SYDNEY ANDERSON OF PATIENT CARE PER NURSING PROTOCOL Performed By: #### L 501.080 #### [facility] [address] [place], [address] CBC W/Diff, Automatedon 02- Absolute Lymph 1.77 X10 3/uL Normal 0.83-4.51 [facility] Comment on above: Performed By: #### L 501.080 #### [facility] [address] [place], [address] Absolute Neut 11.2 X10 3/uL High 2.0-7.7 [facility] Comment on above: Performed By: #### L 501.080 #### [facility] [address] [place], [address] Basophils/100 WBC (Bld) 0.4 % Normal 0-1 [facility] Comment on above: Performed By: #### L 501.080 #### [facility] [address] [place], [address] Eosinophils/100 WBC (Bld) 0.0 % Normal 0-5 [facility] Comment on above: Performed By: #### L 501.080 #### [facility] [address] [place], [address] Erythrocyte distribution width (RBC) [Ratio] 13.9 % Normal 11.6-14.6 [facility] Comment on above: Performed By: #### L 501.080 #### [facility] [address] [place], [address] Hematocrit (Bld) [Volume fraction] 20.5 % Low 37-47 [facility] Comment on above: Performed By: #### L 501.080 #### [facility] [address] [place], [address] Hemoglobin (Bld) [Mass/Vol] 6.6 g/dL Low 12.0-15.0 [facility] Comment on above: Performed By: #### L 501.080 #### [facility] [address] [place], [address] IG% 1.400 High 0.0-0.9 [facility] Comment on above: Result Comment: IG% - Immature Granulocytes (promyelocytes, myelocytes and metamyelocytes) > 1% indicates that a LEFT SHIFT is Present. Performed By: #### L 501.080 #### [facility] [address] [place], [address] Lymphocytes/100 WBC (Bld) 12.6 % Low 19-41 [facility] Comment on above: Performed By: #### L 501.080 #### [facility] [address] [place], [address] MCH (RBC) [Entitic mass] 30.1 pg Normal 27.0-32.0 [facility] Comment on above: Performed By: #### L 501.080 #### [facility] [address] [place], [address] MCHC (RBC) [Mass/Vol] 32.2 g/dL Normal 32-36 [facility] Comment on above: Performed By: #### L 501.080 #### [facility] [address] [place], [address] MCV (RBC) [Entitic vol] 93.6 fL Normal 81-99 [facility] Comment on above: Performed By: #### L 501.080 #### [facility] [address] [place], [address] Monocytes/100 WBC (Bld) 5.6 % Normal 0-10 [facility] Comment on above: Performed By: #### L 501.080 #### [facility] [address] [place], [address] Neutrophils/100 WBC (Bld) 80.0 % High 47-70 [facility] Comment on above: Performed By: #### L 501.080 #### [facility] [address] [place], [address] Nucleated RBC (Bld) [#/Vol] 0 10*3/uL Normal 0-5 [facility] Comment on above: Performed By: #### L 501.080 #### [facility] [address] [place], [address] Platelet mean volume (Bld) [Entitic vol] 10.7 fL Normal 6.2-12.0 [facility] Comment on above: Performed By: #### L 501.080 #### [facility] [address] [place], [address] Platelets (Bld) [#/Vol] 239 10*3/uL Normal 150-450 [facility] Comment on above: Performed By: #### L 501.080 #### [facility] [address] [place], [address] RBC (Bld) [#/Vol] 2.19 10*6/uL Low 4.2-5.4 [facility] Comment on above: Performed By: #### L 501.080 #### [facility] [address] [place], [address] RDW SD 46.3 fl High 35.1-43.9 [facility] Comment on above: Performed By: #### L 501.080 #### [facility] [address] [place], [address] WBC (Bld) [#/Vol] 14.0 10*3/uL High 4.4-11.0 [facility] Comment on above: Performed By: #### L 501.080 #### [facility] [address] [place], [address] CBC-Complete Blood Cnt No Di ffon 12-15-2023 Erythrocyte distribution width (RBC) [Ratio] 15.7 % High 11.6-14.6 [facility] Comment on above: Order Comment: PATIE NT GETTING BLOOD. FLOOR TO CALL WHEN DONE Performed By: #### L 501.080 #### [facility] [address] [place], [address] Hematocrit (Bld) [Volume fraction] 24.2 % Low 37-47 [facility] Comment on above: Order Comment: PATIE NT GETTING BLOOD. FLOOR TO CALL WHEN DONE Performed By: #### L 501.080 #### [facility] [address] [place], [address] Hemoglobin (Bld) [Mass/Vol] 7.9 g/dL Low 12.0-15.0 [facility] Comment on above: Order Comment: PATIE NT GETTING BLOOD. FLOOR TO CALL WHEN DONE Performed By: #### L 501.080 #### [facility] [address] [place], [address] MCH (RBC) [Entitic mass] 30.0 pg Normal 27.0-32.0 [facility] Comment on above: Order Comment: PATIE NT GETTING BLOOD. FLOOR TO CALL WHEN DONE Performed By: #### L 501.080 #### [facility] [address] [place], [address] MCHC (RBC) [Mass/Vol] 32.6 g/dL Normal 32-36 [facility] Comment on above: Order Comment: PATIE NT GETTING BLOOD. FLOOR TO CALL WHEN DONE Performed By: #### L 501.080 #### [facility] [facility] [address] [place], [address] MCV (RBC) [Entitic vol] 92.0 fL Normal 81-99 [facility] Comment on above: Order Comment: PATIE NT GETTING BLOOD. FLOOR TO CALL WHEN DONE Performed By: #### L 501.080 #### [facility] [address] [place], [address] Platelet mean volume (Bld) [Entitic vol] 10.5 fL Normal 6.2-12.0 [facility] Comment on above: Order Comment: PATIE NT GETTING BLOOD. FLOOR TO CALL WHEN DONE Performed By: #### L 501.080 #### [facility] [address] [place], [address] Platelets (Bld) [#/Vol] 160 10*3/uL Normal 150-450 [facility] Comment on above: Order Comment: PATIE NT GETTING BLOOD. FLOOR TO CALL WHEN DONE Performed By: #### L 501.080 #### [facility] [address] [place], [address] RBC (Bld) [#/Vol] 2.63 10*6/uL Low 4.2-5.4 [facility] Comment on above: Order Comment: PATIE NT GETTING BLOOD. FLOOR TO CALL WHEN DONE Performed By: #### L 501.080 #### [facility] [address] [place], [address] RDW SD 51.6 fl High 35.1-43.9 [facility] Comment on above: Order Comment: PATIE NT GETTING BLOOD. FLOOR TO CALL WHEN DONE Performed By: #### L 501.080 #### [facility] [address] [place], [address] WBC (Bld) [#/Vol] 14.1 10*3/uL High 4.4-11.0 [facility] Comment on above: Order Comment: PATIE NT GETTING BLOOD. FLOOR TO CALL WHEN DONE Performed By: #### L 501.080 #### [facility] [address] [facility] [place], [address] Determination of erythrocyte mean corpuscular volume (MCV)Ordered By: Panchito Zavaleta on 12-15-2023 MCV (RBC) [Entitic vol] 93.6 fL 81-99 [facility] EGD Reporton 12-15-[address] [facility] Medical Records Department [address] [place] [address] EGD Report MR#: [id number] Acct: [id number] Name: KELLIE DOZIER Rep #: [id number] : 1945 78 From: Cullen Ferrer DO PCP: Dr. Santo Love MD Status:DIS IN Patient Name: Kellie Dozier Procedure Date: 12/12/2023 1:16 PM Date of : 1945 Age: 78 Procedure: Upper GI endoscopy Indications: Melena Providers: Cullen Ferrer DO Medicines: Monitored Anesthesia Care Patient Profile: This is a 78 year old female. Refer to note in patient chart for documentation of history and physical. Patient has symptoms of acute vomiting. Complications: No immediate complications. Procedure: Pre-Anesthesia Assessment: - Prior to the procedure, a History and Physical was performed, and patient medications and allergies were reviewed. The patient is competent. The risks and benefits of the procedure and the sedation options and risks were discussed with the patient. All questions were answered and informed consent was obtained. Patient identification and proposed procedure were verified by the physician in the pre-procedure area. Mental Status Examination: alert and oriented. Airway Examination: normal oropharyngeal airway and neck mobility. Respiratory Examination: clear to auscultation. CV Examination: normal. Prophylactic Antibiotics: The patient does not require prophylactic antibiotics. Prior Anticoagulants: The patient has taken Eliquis (apixaban), last dose was 1 day prior to procedure. ASA Grade Assessment: III - A patient with severe systemic disease. After reviewing the risks and benefits, the patient was deemed in satisfactory condition to undergo the procedure. The anesthesia plan was to use monitored anesthesia care (MAC). Immediately prior to administration of medications, the patient was re-assessed for adequacy to receive sedatives. The heart rate, respiratory rate, oxygen saturations, blood pressure, adequacy of pulmonary ventilation, and response to care were monitored throughout the procedure. The physical status of the patient was re-assessed after the procedure. After obtaining informed consent, the endoscope was passed under direct vision. Throughout the procedure, the patient's blood pressure, pulse, and oxygen saturations were monitored continuously. The gastroscope was introduced through the mouth, and advanced to the second part of duodenum. The upper GI endoscopy was accomplished without difficulty. The patient tolerated the procedure well. Scope In: 1:25:22 PM Scope Out: 1:29:53 PM Total Procedure Duration Time 0 hours 4 minutes 31 seconds Findings: The examined esophagus was normal. One oozing cratered gastric ulcer with pigmented material was found on the greater curvature of the stomach. The lesion was 6 mm in largest dimension. Area was successfully injected with 5 mL of a 0.1 mg/mL solution of epinephrine for drug delivery. To stop active bleeding, hemostatic spray was deployed. Five sprays were applied. There was no bleeding at the end of the procedure. Coagulation for hemostasis using heater probe was successful. Estimated blood loss was minimal. No gross lesions were noted in the first portion of the duodenum. One 5 mm angiodysplastic lesion with bleeding was found in the first portion of the duodenum. Coagulation for hemostasis using argon plasma at 0.3 liters/minute and 20 keller was successful. Estimated blood loss was minimal. Impression: - Normal esophagus. - Oozing gastric ulcer with pigmented material. Injected. hemostatic spray applied. Treated with a heater probe. - No gross lesions in the first portion of the duodenum. - No specimens collected. Recommendation: - Return patient to hospital chan for ongoing care. - NPO. - Continue present medications. Procedure Code(s): --- Professional --- 71114, Esophagogastroduodenoscopy, flexible, transoral; with control of bleeding, any method 46904, 59,51, Esophagogastroduodenoscopy, flexible, transoral; with directed submucosal injection(s), any substance CPT copyright 2021 [employer]. All rights reserved. The codes documented in this report are preliminary and upon seniour insight manager review may be revised to meet current compliance requirements. Cullen Ferrer DO 12/15/2023 4:32:31 PM This report has been signed electronically. Number of Addenda: 0 Note Initiated On: 12/12/2023 1:16 PM 12/15/23 1632 Date Cullen Perry Signature: Date (if indicated) CC: Dr. Santo Love MD; Cullen Ferrer DO Date Dictated: 12/12/23 1316 Date Transcribed: Director [employer]: RF Signed Normal [facility] EGD Report [facility] Medical Records Department [address] [facility] [place] [address] EGD Report MR#: [id number] Acct: [id number] Name: KELLIE DOZIER [place] Rep #: [id number] : 1945 78 From: Cullen Ferrer DO PCP: Dr. Santo Love MD Status:ADM IN Patient Name: Kellie Dozier Procedure Date: 12/15/2023 3:43 PM Date of : 1945 Age: 78 Procedure: Upper GI endoscopy Indications: Coffee-ground emesis Providers: Cullen Ferrer DO Medicines: Monitored Anesthesia Care Patient Profile: This is a 78 year old female. Refer to note in patient chart for documentation of history and physical. Patient has symptoms of acute epigastric abdominal pain and acute vomiting. Complications: No immediate complications. Procedure: Pre-Anesthesia Assessment: - Prior to the procedure, a History and Physical was performed, and patient medications and allergies were reviewed. The patient is competent. The risks and benefits of the procedure and the sedation options and risks were discussed with the patient. All questions were answered and informed consent was obtained. Patient identification and proposed procedure were verified by the physician in the pre-procedure area. Mental Status Examination: alert and oriented. Airway Examination: normal oropharyngeal airway and neck mobility. Respiratory Examination: clear to auscultation. CV Examination: normal. Prophylactic Antibiotics: The patient does not require prophylactic antibiotics. Prior Anticoagulants: The patient has taken no anticoagulant or antiplatelet agents. ASA Grade Assessment: IV - A patient with severe systemic disease that is a constant threat to life. After reviewing the risks and benefits, the patient was deemed in satisfactory condition to undergo the procedure. The anesthesia plan was to use monitored anesthesia care (MAC). Immediately prior to administration of medications, the patient was re-assessed for adequacy to receive sedatives. The heart rate, respiratory rate, oxygen saturations, blood pressure, adequacy of pulmonary ventilation, and response to care were monitored throughout the procedure. The physical status of the patient was re-assessed after the procedure. After obtaining informed consent, the endoscope was passed under direct vision. Throughout the procedure, the patient's blood pressure, pulse, and oxygen saturations were monitored continuously. The Endoscope was introduced through the mouth, and advanced to the second part of duodenum. The upper GI endoscopy was accomplished without difficulty. The patient tolerated the procedure well. Findings: The examined esophagus was normal. One oozing cratered gastric ulcer with a visible vessel was found on the greater curvature of the stomach. The lesion was 10 mm in largest dimension. Area was successfully injected with 5 mL of a 0.1 mg/mL solution of epinephrine for drug delivery. Coagulation for hemostasis using heater probe was successful. To stop active bleeding, one hemostatic clip was successfully placed. Clip state director: [employer] There was no bleeding at the end of the procedure. No gross lesions were noted in the second portion of the duodenum. Impression: - Normal esophagus. - Oozing gastric ulcer with a visible vessel. Injected. Treated with a heater probe. Clip was placed. Clip state director: [employer]. - No gross lesions in the second portion of the duodenum. - No specimens collected. Recommendation: - Return patient to hospital chan for ongoing care. - Clear liquid diet. - Continue present medications. Procedure Code(s): --- Professional --- 01313, Esophagogastroduodenoscopy, flexible, transoral; with control of bleeding, any method 23872, 59,51, Esophagogastroduodenoscopy, flexible, transoral; with directed submucosal injection(s), any substance CPT copyright 2021 [employer]. All rights reserved. The codes documented in this report are preliminary and upon seniour insight manager review may be revised to meet current compliance requirements. Cullen Ferrer DO 12/15/2023 4:28:41 PM This report has been signed electronically. Number of Addenda: 0 Note Initiated On: 12/15/2023 3:43 PM 12/15/23 1629 Date Cullen Friend DO Cosigner Signature: Date (if indicated) CC: Dr. Santo Love MD; Cullen Friend, Date Dictated: 12/15/23 1543 Date Transcribed: Director [employer]: MIGUELINA Signed Normal [facility] Emergency Department Summary on 12-15-2023 Emergency Department Summary [facility] Medical Records Department [address] [place] [address] Emergency Department Summary 12/15/23 MR#: [id number] Acct: [id number] Name: KELLIE DOZIER MARIET[place] Rep #: [id number] : 1945 78 From: Panchito Zavaleta MD PCP: Dr. Santo Love MD Status:[facility] ER Location: ED HPI HPI - GI History of Present Illness Chief Complaint: Nausea/Vomiting/Diarrhea Informant: patient, family and EMS Narrative Narrative: Patient presents by EMS for 6-8 hours or so of nausea/vomiting with hematemesis. She states it is dark red, almost black emesis. No bright red blood. She was discharged from the hospital a day or so prior to the onset of this, she was here for upper GI bleeding, had an EGD that showed duodenal ulcer. She was off of her apixaban while in the hospital but told it was okay to restart it for paroxysmal atrial fibrillation when she went home; her last dose was just prior to the onset of this bleeding last night. She states she has felt lightheaded. She denies any abdominal pain. She has been having melena, but that started while she was in the hospital. She denies passing any bright red blood or maroon blood per rectum. No chest pain or dyspnea. No syncopal episodes. EMS gave her a sublingual Zofran but she vomited it up. 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 Essential hypertension GERD (gastroesophageal reflux disease) Liver mass Malignant neoplasm of right breast Old myocardial infarction Paroxysmal atrial fibrillation 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 tachycardia Presence of stent in coronary artery ( 05/23/09) Pure hypercholesterolemia Type 2 diabetes mellitus Home Medications apixaban 5 mg tablet (Eliquis) 5 mg PO BID a.fib 09/06/19 [History Last Taken 02/12/21] cyanocobalamin (vitamin B-12) 1,000 mcg tablet 1,000 mcg PO DAILY 09/06/19 [History Last Taken 02/12/21] pravastatin 80 mg tablet 80 mg PO QHS 09/06/19 [History Last Taken 02/11/21] pyridoxine (vitamin B6) 100 mg tablet 100 mg PO DAILY 09/06/19 [History Last Taken 02/12/21] nitroglycerin 0.4 mg sublingual tablet 0.4 mg sublingual Q5-15M PRN chest pain #90 tabs 09/08/19 [Rx Last Taken Unknown] insulin glargine U-300 conc 300 unit/mL (1.5 mL) subcutaneous pen 20 unit subcut QHS 08/14/21 [History Last Taken Unknown] dulaglutide 4.5 mg/0.5 mL subcutaneous pen injector (Trulicity) 4.5 mg subcut MO 08/06/23 [History Last Taken 12/07/23] verapamil 300 mg capsule 24hr pellet CT,ext.release 300 mg PO QHS 08/06/23 [History Last Taken Unknown] brimonidine 0.2 % eye drops 1 drp ophthalmic (eye) BID 12/11/23 [History Last Taken Unknown] calcium carbonate 600 mg-vitamin D3 5 mcg (200 unit) tablet (Calcium 600 + D(3)) 1 tab PO DAILY 12/11/23 [History Last Taken Unknown] lisinopril 40 mg tablet 20 mg PO DAILY HIG BLOOD PRESSURE 12/11/23 [History Last Taken Unknown] pantoprazole 40 mg tablet,delayed release 40 mg PO BID 30 days #60 tabs 12/13/23 [Rx Last Taken Unknown] Allergy/AdvReac Type Severity Reaction Status Date / Time alendronate sodium AdvReac Severe myalgias Verified 12/15/23 05:40 [From Fosamax] amoxicillin [Amoxicillin] AdvReac Nausea/Vom/ Verified 12/15/23 05:40 Diarrhea metformin AdvReac Nausea/Vom/ Verified 12/15/23 05:40 Diarrhea shellfish derived AdvReac Nausea/Vom/ Verified 12/15/23 05:40 Diarrhea Family History Mother Hypertension Diabetes CVA (cerebral vascular accident) CAD (coronary artery disease) Father History of DVT (deep vein thrombosis) Surgical History History of eyelid surgery (05/28/23) History of total abdominal hysterectomy Presence of coronary angioplasty implant and graft ( 05/23/09) S/P lumpectomy, right breast Social History household members: family housing: house Smoking Status: Never smoker alcohol intake: never substance use type: does not use caffeine: Yes Type: coffee Number of servings: 2 ROS ROS ED Constitutional Constitutional ED: Reports fatigue and weakness; Denies chills or fever(s) Eyes Eyes: Denies change in vision or diplopia ENT ENT ED: Denies rhinorrhea or sore throat Cardiovascular Cardiovascular: Denies chest pain or palpitations Respiratory/Chest Respiratory/Chest: Denies cough or dyspnea Gastrointestinal Gastrointestinal: Reports as per HPI, hematemesis, melena, nausea and vomiting; Denies abdominal pain Genitourinary Genitourinary ED: Denies dysuria or hematuria Musculoskeletal Musculoskeletal: Denies back pain or neck pain Integumentary Denies abscess or rash Neurologic Neurologic: Denies headache(s), paresthesias or we (more content not included)... Normal [facility] Erythrocyte distribution wid th ratioOrdered By: Panchito Zavaleta on 12-15-2023 Erythrocyte distribution width (RBC) [Ratio] 13.9 % 11.6-14.6 [facility] Erythrocyte distribution wid th standard deviationOrdered By: Panchito Zavaleta on 12-15-2023 Erythrocyte distribution width (RBC) [Entitic vol] 46.3 fL 35.1-43.9 [facility] H AND P Exam - Hospitaliston 12-15-2023 H&P Exam - Hospitalist [facility] Medical Records Department [address] [place] [address] H P Exam - Hospitalist 12/15/23 1136 MR#: [id number] Acct: [id number] Name: KELLIE DOZIER Rep #: [id number] : 1945 78 From: Tahir Rivas DO PCP: Dr. Santo Love MD Status:ADM IN Location: [facility] [id number] HPI - General General Date of Admission: 12/15/23 Date of Service: 12/15/23 Chief Complaint: Recurrent upper GI bleed HPI Narrative KELLIE DOZIER, is a 78 F who presented to [facility] ED on morning of 12/15/2023 with recurrent upper GI bleed. Patient was recently hospitalized at [facility] from 12/11 to 12/13 for an upper GI bleed with acute blood loss anemia. Gastroenterology followed, EGD 12/12 showed a duodenal ulcer that was treated. Patient's hemoglobin level remained stable on 12/13, discussed with GI and patient was okay for discharge home on p.o. PPI twice daily. Decision was made to restart patient's home Eliquis 5 mg twice daily that she was on for A-fib. Patient stated that she began having nausea with coffee-ground emesis about 6 to 8 hours prior to admission. She denied any bright red blood hematemesis. She did report melena, which had been present for her since her recent hospitalization, but she denied passing any bright red blood or maroon-colored stool. Patient was found to have hemoglobin of 6.6 in the ED, down from 9.3 on 12/13. Was also found to be tachycardic but was maintaining an adequate blood pressure. Hospitalist was contacted at that time for admission. Patient seen at bedside in the ED, daughter present. Patient was laying comfortably in bed, in no acute distress. Patient did appear fairly pale and fatigued. Patient stated she had not had any further episodes of coffee-ground emesis since arrival to the ED. She denied any lightheadedness or dizziness at rest. She denied any abdominal pain or discomfort. No other acute concerns at this time. 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 Essential hypertension GERD (gastroesophageal reflux disease) Liver mass Malignant neoplasm of right breast Old myocardial infarction Paroxysmal atrial fibrillation 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 tachycardia Presence of stent in coronary artery ( 05/23/09) Pure hypercholesterolemia Type 2 diabetes mellitus Home Medications apixaban 5 mg tablet (Eliquis) 5 mg PO BID a.fib 09/06/19 [History Last Taken 12/14/23] cyanocobalamin (vitamin B-12) 1,000 mcg tablet 1,000 mcg PO DAILY vitamin deficient 09/06/19 [History Last Taken 12/14/23] pravastatin 80 mg tablet 80 mg PO QHS cholesterol 09/06/19 [History Last Taken 12/14/23] pyridoxine (vitamin B6) 100 mg tablet 100 mg PO DAILY vitamin deficient 09/06/19 [History Last Taken 12/14/23] nitroglycerin 0.4 mg sublingual tablet 0.4 mg sublingual Q5-15M PRN chest pain #90 tabs 09/08/19 [Rx Last Taken Unknown] insulin glargine U-300 conc 300 unit/mL (1.5 mL) subcutaneous pen 20 unit subcut QHS diabetes 08/14/21 [History Last Taken 12/14/23] dulaglutide 4.5 mg/0.5 mL subcutaneous pen injector (Trulicity) 4.5 mg subcut MO 08/06/23 [History Last Taken 12/07/23] verapamil 300 mg capsule 24hr pellet CT,ext.release 300 mg PO QHS blood pressure 08/06/23 [History Last Taken 12/14/23] brimonidine 0.2 % eye drops 1 drp ophthalmic (eye) BID Glaucoma 12/11/23 [History Last Taken 12/14/23] calcium carbonate 600 mg-vitamin D3 5 mcg (200 unit) tablet (Calcium 600 + D(3)) 1 tab PO DAILY vitamin deficient 12/11/23 [History Last Taken 12/14/23] lisinopril 40 mg tablet 20 mg PO DAILY HIG BLOOD PRESSURE 12/11/23 [History Last Taken 12/14/23] pantoprazole 40 mg tablet,delayed release 40 mg PO BID 30 days #60 tabs 12/13/23 [Rx Last Taken 12/14/23] Allergy/AdvReac Type Severity Reaction Status Date / Time alendronate sodium AdvReac Severe myalgias Verified 12/15/23 05:40 [From Fosamax] amoxicillin [Amoxicillin] AdvReac Nausea/Vom/ Verified 12/15/23 05:40 Diarrhea metformin AdvReac Nausea/Vom/ Verified 12/15/23 05:40 Diarrhea shellfish derived AdvReac Nausea/Vom/ Verified 12/15/23 05:40 Diarrhea Family History Mother Hypertension Diabetes CVA (cerebral vascular accident) CAD (coronary artery disease) Father History of DVT (deep vein thrombosis) Surgical History History of eyelid surgery (05/28/23) History of total abdominal hysterectomy Presence of coronary angioplasty implant and graft ( 05/23/09) S/P lumpectomy, right breast Social History household members: family housing: house Smoking Status: Never smoker alcohol intake: never substance use type: does not use caff (more content not included)... Normal [facility] Hematocrit Auto (Bld) [Volum e fraction]Ordered By: Panchito Zavaleta on 12-15-2023 Hematocrit (Bld) [Volume fraction] 20.5 % 37-47 [facility] Immature granulocytes/100 WB C Auto (Bld)Ordered By: Panchito Zavaleta on 12-15-2023 Immature granulocytes/100 WBC (Bld) 1.400 % 0.0-0.9 [facility] Comment on above: IG% - Immature Granu locytes (promyelocytes, myelocytes and metamyelocytes) > 1% indicates that a LEFT SHIFT is Present. Laboratory - Chemistry and C hemistry - challengeOrdered By: Panchito Zavaleta on 12-15-2023 CO2 [Moles/Vol] 23.0 mmol/L 21.0-32.0 [facility] Urea nitrogen/Creatinine [Mass ratio] 49.0 mg/mg 10-20 [facility] Laboratory - Hematology and Cell countsOrdered By: Panchito Zavaleta on 12-15-2023 MCH (RBC) [Entitic mass] 30.1 pg 27.0-32.0 [facility] MCHC (RBC) [Mass/Vol] 32.2 g/dL 32-36 [facility] Nucleated RBC/100 WBC (Bld) [Ratio] 0 % 0-5 [facility] Platelet mean volume (Bld) [Entitic vol] 10.7 fL 6.2-12.0 [facility] Platelets (Bld) [#/Vol] 239 10*3/uL 150-450 [facility] No Panel InformationOrdered By: Panchito Zavaleta on 12-15-2023 Estimated Creatinine Clearance Calc 51.80 ml/min [facility] Estimated GFR (MDRD) Amer 84 mL/min >60 [facility] Comment on above: GFR Calc Estimated GFR (MDRD) Non-Af Amer 70 mL/min >60 [facility] Comment on above: Non- GFR Calc RBC Auto (Bld) [#/Vol]Ordere d By: Panchito Zavaleta on 12-15-2023 RBC (Bld) [#/Vol] 2.19 10*6/uL 4.2-5.4 [facility] Serum or plasma calcium haris urement (mass/volume)Ordered By: Panchito Zavaleta on 12-15-2023 Calcium [Mass/Vol] 8.8 mg/dL 8.5-10.1 [facility] Serum or plasma creatinine m easurement (mass/volume)Ordered By: Panchito Zavaleta on 12-15-2023 Creatinine [Mass/Vol] 0.84 mg/dL 0.55-1.02 [facility] Comment on above: The validity of the calculated GFR & GFRAA in patients over 70 years has not been determined. Clinical correlation is essential. Serum or plasma urea nitroge n measurement (mass/volume)Ordered By: Panchito Zavaleta on 12-15-2023 Urea nitrogen [Mass/Vol] 41 mg/dL 7-18 [facility] Thin prep Papanicolaou smear with manual screeningOrdered By: Panchito Zavaleta on 12-15-2023 Thin prep Papanicolaou smear with manual screening 352 mg/dL 74-106 [facility] Comment on above: MANAGEMENT OF PATIEN T CARE PER NURSING PROTOCOL Thin prep Papanicolaou smear with manual screening 9 5-15 [facility] Type AND Screenon 12-15-2023 ABO and Rh group Nom (Bld) Blood group A Rh(D) positive Normal [facility] Comment on above: Order Comment: HGI Performed By: #### L 501.080 #### [facility] Laboratory [address] [place], [address] CBC-Complete Blood Cnt No Di ffon 12-14-2023 HCT Normal 37-47 [facility] Comment on above: Result Comment: Canc elled via OM: Order cancelled - Patient discharged Performed By: #### L 501.080 #### [facility] [address] [place], [address] HGB Normal 12.0-15.0 [facility] Comment on above: Result Comment: Canc elled via OM: Order cancelled - Patient discharged Performed By: #### L 501.080 #### [facility] [address] [place], [address] MCH Normal 27.0-32.0 [facility] Comment on above: Result Comment: Canc elled via OM: Order cancelled - Patient discharged Performed By: #### L 501.080 #### [facility] [address] [place], [address] MCHC Normal 32-36 [facility] Comment on above: Result Comment: Canc elled via OM: Order cancelled - Patient discharged Performed By: #### L 501.080 #### [facility] [address] [place], [address] MCV Normal 81-99 [facility] Comment on above: Result Comment: Canc elled via OM: Order cancelled - Patient discharged Performed By: #### L 501.080 #### [facility] [address] [place], [address] PLT Normal 150-450 [facility] Comment on above: Result Comment: Canc elled via OM: Order cancelled - Patient discharged Performed By: #### L 501.080 #### [facility] [address] [place], [address] RBC Normal 4.2-5.4 [facility] Comment on above: Result Comment: Canc elled via OM: Order cancelled - Patient discharged Performed By: #### L 501.080 #### [facility] [address] [place], [address] RDW CV Normal 11.6-14.6 [facility] Comment on above: Result Comment: Canc elled via OM: Order cancelled - Patient discharged Performed By: #### L 501.080 #### [facility] [address] [place], [address] RDW SD Normal 35.1-43.9 [facility] Comment on above: Result Comment: Canc elled via OM: Order cancelled - Patient discharged Performed By: #### L 501.080 #### [facility] [address] [place], [address] WBC Normal 4.4-11.0 [facility] Comment on above: Result Comment: Canc elled via OM: Order cancelled - Patient discharged Performed By: #### L 501.080 #### [facility] [address] [place], [address] Vitamin B12on 12-14-2023 Cobalamin (Vitamin B12) [Mass/Vol] 1452 pg/mL High 211-911 [facility] Comment on above: Performed By: #### L 100.0100, L500.4050 #### [facility] [address] [place], [address] Basophil percentageOrdered B y: Tahir Rivas on 12-13-2023 Hemoglobin (Bld) [Mass/Vol] 9.3 g/dL 12.0-15.0 [facility] WBC (Bld) [#/Vol] 8.4 10*3/uL 4.4-11.0 [facility] Bedside Glucoseon 12-13-2023 FINGERSTICK GLU 191 mg/dL High 74-106 [facility] Comment on above: Result Comment: SYDNEY GEMENT OF PATIENT CARE PER NURSING PROTOCOL Performed By: #### L 501.080 #### [facility] [address] [place], [address] FINGERSTICK GLU 247 mg/dL High 74-106 [facility] Comment on above: Result Comment: SYDNEY GEMENT OF PATIENT CARE PER NURSING PROTOCOL Performed By: #### L 501.080 #### [facility] [address] [place], [address] FINGERSTICK GLU 158 mg/dL High 74-106 [facility] Comment on above: Result Comment: SYDNEY GEMENT OF PATIENT CARE PER NURSING PROTOCOL Performed By: #### L 501.080 #### [facility] [address] [place], [address] CBC-Complete Blood Cnt No Di ffon 12-13-2023 Erythrocyte distribution width (RBC) [Ratio] 13.3 % Normal 11.6-14.6 [facility] Comment on above: Performed By: #### L 100.0500 ####[facility] [address] [place], [address] Hematocrit (Bld) [Volume fraction] 28.7 % Low 37-47 [facility] Comment on above: Performed By: #### L 100.0500 ####[facility] [address] [place], [address] Hemoglobin (Bld) [Mass/Vol] 9.3 g/dL Low 12.0-15.0 [facility] Comment on above: Performed By: #### L 100.0500 ####[facility] [address] [place], [address] MCH (RBC) [Entitic mass] 30.8 pg Normal 27.0-32.0 [facility] Comment on above: Performed By: #### L 100.0500 ####[facility] [address] [place], [address] MCHC (RBC) [Mass/Vol] 32.4 g/dL Normal 32-36 [facility] Comment on above: Performed By: #### L 100.0500 ####[facility] [address] [place], [address] MCV (RBC) [Entitic vol] 95.0 fL Normal 81-99 [facility] Comment on above: Performed By: #### L 100.0500 ####[facility] [address] [place], [address] Platelet mean volume (Bld) [Entitic vol] 10.4 fL Normal 6.2-12.0 [facility] Comment on above: Performed By: #### L 100.0500 ####[facility] [address] [place], [address] Platelets (Bld) [#/Vol] 189 10*3/uL Normal 150-450 [facility] Comment on above: Performed By: #### L 100.0500 ####[facility] [address] [place], [address] RBC (Bld) [#/Vol] 3.02 10*6/uL Low 4.2-5.4 [facility] Comment on above: Performed By: #### L 100.0500 ####[facility] [address] [place], [address] RDW SD 45.8 fl High 35.1-43.9 [facility] Comment on above: Performed By: #### L 100.0500 ####[facility] [address] [place], [address] WBC (Bld) [#/Vol] 8.4 10*3/uL Normal 4.4-11.0 [facility] Comment on above: Performed By: #### L 100.0500 ####[facility] [address] [place], [address] Determination of erythrocyte mean corpuscular volume (MCV)Ordered By: Tahir Rivas on 12-13-2023 MCV (RBC) [Entitic vol] 95.0 fL 81-99 [facility] Discharge Instructionon 12-03 Discharge Instruction [facility] Medical Records Department [address] [place] [address] Instructions for Home/Discharge Instructions 12/13/23 1525 MR#: [id number] Acct: [id number] Name: KELLIE DOZIER Rep #: [id number] : 1945 78 From: Tahir Rivas DO PCP: Dr. Santo Love MD Status:ADM IN Discharge Instructions Diet Discharge Diet: No restrictions Activity Discharge Activity: No Restrictions Weight Bearing Status: Full weight bearing Follow Up Care Test Results: Test results from this visit will be discussed in further detail at your follow-up appointment, if applicable. Discharge Plan Admission Admit Date/Time: 12/11/23 11:42 Primary Reason for Your Visit: GI bleed Attending Provider: Tahir Rivas Primary Care Provider: Santo Love Additional Instructions / Restrictions: Please start taking Protonix twice daily for your GI bleed. Continue all other home medications as normal. Follow-up with Dr. Ferrer in the office in the next few weeks. Discharge Orders/Prescriptions Prescriptions: New pantoprazole 40 mg Tablet,Delayed Release (Dr/Ec) 40 mg PO BID 30 Days Qty: 60 0RF Continued nitroglycerin 0.4 mg tablet, sublingual 0.4 mg sublingual Q5-15M PRN (Reason: chest pain) Qty: 90 6RF Eliquis 5 mg tablet 5 mg PO BID pravastatin 80 mg tablet 80 mg PO QHS cyanocobalamin (vitamin B-12) 1,000 mcg tablet 1,000 mcg PO DAILY pyridoxine (vitamin B6) 100 mg tablet 100 mg PO DAILY verapamil 300 mg capsule, [address] 300 mg PO QHS Trulicity 4.5 mg/0.5 mL pen injector 4.5 mg subcut MO Patient Comments: INJECT 4.5 MG SUBCUTANEOUSLY ONCE PER WEEK ON THURSDAY insulin glargine U-300 conc 300 unit/mL (1.5 mL) insulin pen 20 unit SC QHS brimonidine 0.2 % drops 1 drp ophthalmic (eye) BID Patient Comments: INSTILL 1 DROP INTO EACH EYE TWICE DAILY calcium carbonate-vitamin D3 [Calcium 600 + D(3)] 600 mg-5 mcg (200 unit) tablet 1 tab PO DAILY lisinopril 40 mg tablet 20 mg PO DAILY Referrals / Follow Up: Santo Love MD [Primary Care Provider] - Disposition Disposition (needs filled in before D/C Order can be placed): Home, Self Care 12/13/23 1527 Tahir Rivas DO CC: Dr. Santo Love MD Signed Normal [facility] Erythrocyte distribution wid th ratioOrdered By: Tahir Rivas on 12-13-2023 Erythrocyte distribution width (RBC) [Ratio] 13.3 % 11.6-14.6 [facility] Erythrocyte distribution wid th standard deviationOrdered By: Tahir Rivas on 12-13-2023 Erythrocyte distribution width (RBC) [Entitic vol] 45.8 fL 35.1-43.9 [facility] Hematocrit Auto (Bld) [Volum e fraction]Ordered By: Tahir Rivas on 12-13-2023 Hematocrit (Bld) [Volume fraction] 28.7 % 37-47 [facility] - Hematology and Cell countsOrdered By: Tahir Rivas on 12-13-2023 MCH (RBC) [Entitic mass] 30.8 pg 27.0-32.0 [facility] MCHC (RBC) [Mass/Vol] 32.4 g/dL 32-36 [facility] Platelet mean volume (Bld) [Entitic vol] 10.4 fL 6.2-12.0 [facility] Platelets (Bld) [#/Vol] 189 10*3/uL 150-450 [facility] RBC Auto (Bld) [#/Vol]Ordere d By: Tahir Rivas on 12-13-2023 RBC (Bld) [#/Vol] 3.02 10*6/uL 4.2-5.4 [facility] Thin prep Papanicolaou smear with manual screeningOrdered By: Tahir Rivas on 12-13-2023 Thin prep Papanicolaou smear with manual screening 191 mg/dL 74-106 [facility] Comment on above: MANAGEMENT OF PATIEN T CARE PER NURSING PROTOCOL 12 Lead EKGon 12-12-[address] [facility] Cardiovascular Services [address] [place] [address] 12 Lead EKG 12/12/23 0555 MR#: [id number] Acct: [id number] Name: KELLIE DOZIER Rep #: [id number] : 1945 78 From: Jacques Fortune MD Attending Dr: Dr. Tahir Rivas DO Status : DIS IN Ordering Dr: Rod Clifton DO Date: 12/12/23 Location: [facility] Sex: F C Admitted: 12/11/23 Test Reason : AM EKG Blood Pressure : / mmHG Vent. Rate : 073 BPM Atrial Rate : 073 BPM P-R Int : 266 ms QRS Dur : 082 ms QT Int : 412 ms P-R-T Axes : 042 008 024 degrees QTc Int : 453 ms Sinus rhythm with 1st degree A-V block Cannot rule out Septal infarct , age undetermined Abnormal ECG When compared with ECG of 11-DEC-2023 08:35, MANUAL COMPARISON REQUIRED, DATA IS UNCONFIRMED Confirmed by Jacques Fortune ([id number]), international editorial producer LISA LOZANO ([id number]) on 12/15/2023 9:39:29 AM Referred By: Confirmed By:Jacques Fortune 12/15/23 0939 Date Jacques Fortune MD CC: Dr. Tahir Rivas DO; Dr. Rod Clifton DO; Dr. Santo Love MD Signed Normal [facility] Basic Metabolic Profile (BMP )on 12-12-2023 BUN/CRE 47.0 RATIO High 10-20 [facility] Comment on above: Performed By: #### L 100.0500, L500.2500 ####[facility] [address] [place], [address] CA,Total 8.6 mg/dL Normal 8.5-10.1 [facility] Comment on above: Performed By: #### L 100.0500, L500.2500 ####[facility] [address] [place], [address] Chloride [Moles/Vol] 108 mmol/L High 98-107 [facility] Comment on above: Performed By: #### L 100.0500, L500.2500 ####[facility] [address] [place], [address] CO2 [Moles/Vol] 29.0 mmol/L Normal 21.0-32.0 [facility] Comment on above: Performed By: #### L 100.0500, L500.2500 ####[facility] [address] [place], [address] Creatinine [Mass/Vol] 0.74 mg/dL Normal 0.55-1.02 [facility] Comment on above: Result Comment: The validity of the calculated GFR GFRAA in patients over 70 years has not been determined. Clinical correlation is essential. Performed By: #### L 100.0500, L500.2500 ####[facility] [address] [place], [address] ECRCL 49.24 ml/min Normal [facility] Comment on above: Performed By: #### L 100.0500, L500.2500 ####[facility] [address] [place], [address] EST GFR - AA 96 mL/min Normal >60 [facility] Comment on above: Result Comment: Afri can [place] GFR Calc Performed By: #### L 100.0500, L500.2500 ####[facility] [address] [place], [address] GAP 3 Low 5-15 [facility] Comment on above: Performed By: #### L 100.0500, L500.2500 ####[facility] [address] [place], [address] GFR/1.73 sq M.predicted among non-blacks MDRD (S/P/Bld) [Vol rate/Area] 80 mL/min/{1.73_m2} Normal >60 [facility] Comment on above: Result Comment: Non- GFR Calc Performed By: #### L 100.0500, L500.2500 ####[facility] [address] [place], [address] Glucose [Mass/Vol] 190 mg/dL High 74-106 [facility] Comment on above: Result Comment: Fast ing Glucose result greater than or equal to 126 mg/dL suggests DIABETES MELLITUS per A.D.A. criteria. Performed By: #### L 100.0500, L500.2500 ####[facility] [address] [place], [address] Potassium [Moles/Vol] 3.6 mmol/L Normal 3.5-5.1 [facility] Comment on above: Performed By: #### L 100.0500, L500.2500 ####[facility] [address] [place], [address] Sodium [Moles/Vol] 140 mmol/L Normal 136-145 [facility] Comment on above: Performed By: #### L 100.0500, L500.2500 ####[facility] [address] [place], [address] Urea nitrogen [Mass/Vol] 35 mg/dL High 7-18 [facility] Comment on above: Performed By: #### L 100.0500, L500.2500 ####[facility] [address] [place], [address] Basophil percentageOrdered B y: Tahir Rob on 12-12-2023 Chloride [Moles/Vol] 108 mmol/L 98-107 [facility] Glucose [Mass/Vol] 190 mg/dL 74-106 [facility] Comment on above: Fasting Glucose resu lt greater than or equal to 126 mg/dL suggests DIABETES MELLITUS per A.D.A. criteria. Potassium [Moles/Vol] 3.6 mmol/L 3.5-5.1 [facility] Sodium [Moles/Vol] 140 mmol/L 136-145 [facility] Bedside Glucoseon 12-12-2023 FINGERSTICK GLU 162 mg/dL High 74-106 [facility] Comment on above: Result Comment: SYDNEY GEMENT OF PATIENT CARE PER NURSING PROTOCOL Performed By: #### L 501.080 #### [facility] [address] [place], [address] FINGERSTICK GLU 196 mg/dL High [facility]106 [facility] Comment on above: Result Comment: SYDNEY GEMENT OF PATIENT CARE PER NURSING PROTOCOL Performed By: #### L 501.080 #### [facility] [address] [place], [address] FINGERSTICK GLU 161 mg/dL High -106 [facility] Comment on above: Result Comment: SYDNEY GEMENT OF PATIENT CARE PER NURSING PROTOCOL Performed By: #### L 501.080 #### [facility] [address] [place], [address] FINGERSTICK GLU 163 mg/dL High [facility]106 [facility] Comment on above: Result Comment: SYDNEY GEMENT OF PATIENT CARE PER NURSING PROTOCOL Performed By: #### L 501.080 ####[facility] [address] [place], [address] CBC-Complete Blood Cnt No Di ffon 12-12-2023 Erythrocyte distribution width (RBC) [Ratio] 13.8 % Normal 11.6-14.6 [facility] Comment on above: Performed By: #### L 100.0500, L500.2500 ####[facility] [address] [place], [address] Hematocrit (Bld) [Volume fraction] 26.3 % Low 37-47 [facility] Comment on above: Performed By: #### L 100.0500, L500.2500 ####[facility] [address] [place], [address] Hemoglobin (Bld) [Mass/Vol] 8.6 g/dL Low 12.0-15.0 [facility] Comment on above: Performed By: #### L 100.0500, L500.2500 ####[facility] [address] [place], [address] MCH (RBC) [Entitic mass] 30.7 pg Normal 27.0-32.0 [facility] Comment on above: Performed By: #### L 100.0500, L500.2500 ####[facility] [address] [place], [address] MCHC (RBC) [Mass/Vol] 32.7 g/dL Normal 32-36 [facility] Comment on above: Performed By: #### L 100.0500, L500.2500 ####[facility] [address] [place], [address] MCV (RBC) [Entitic vol] 93.9 fL Normal 81-99 [facility] Comment on above: Performed By: #### L 100.0500, L500.2500 ####[facility] [address] [place], [address] Platelet mean volume (Bld) [Entitic vol] 10.1 fL Normal 6.2-12.0 [facility] Comment on above: Performed By: #### L 100.0500, L500.2500 ####[facility] [address] [place], [address] Platelets (Bld) [#/Vol] 181 10*3/uL Normal 150-450 [facility] Comment on above: Performed By: #### L 100.0500, L500.2500 ####[facility] [address] [place], [address] RBC (Bld) [#/Vol] 2.80 10*6/uL Low 4.2-5.4 [facility] Comment on above: Performed By: #### L 100.0500, L500.2500 ####[facility] [address] [place], [address] RDW SD 47.7 fl High 35.1-43.9 [facility] Comment on above: Performed By: #### L 100.0500, L500.2500 ####[facility] [address] [place], [address] WBC (Bld) [#/Vol] 7.8 10*3/uL Normal 4.4-11.0 [facility] Comment on above: Performed By: #### L 100.0500, L500.2500 ####[facility] [address] [place], [address] Ferritinon 12-12-2023 Ferritin [Mass/Vol] 187 ng/mL Normal 8-252 [facility] Comment on above: Order Comment: Has Evelin solorzano had X-rays with Contrast this admission? NN Performed By: #### L 100.0100, L500.4050 #### [facility] [address] [place], [address] Folates, (Folic Acid)on 12-03 FOLATES 16.00 ng/mL Normal 3.1-55.4 [facility] Comment on above: Order Comment: Has Evelin solorzano had X-rays with Contrast this admission? NN Performed By: #### L 100.0100, L500.4050 #### [facility] [address] [place], [address] Iron measurement (mass/mass) Ordered By: Tahir Rivas on 12-12-2023 Iron (Unsp spec) [Mass/Mass] 85 ug/dL 50-170 [facility] Iron+Iron Binding Capacityon 12-12-2023 Iron [Mass/Vol] 85 ug/dL Normal 50-170 [facility] Comment on above: Order Comment: Has Evelin solorzano had X-rays with Contrast this admission? NN Performed By: #### L 100.0100, L500.4050 #### [facility] [address] [place], [address] IRON SATURATION 35.9 Normal 15.0-55.0 [facility] Comment on above: Order Comment: Has Evelin solorzano had X-rays with Contrast this admission? NN Performed By: #### L 100.0100, L500.4050 #### [facility] [address] [place], [address] TIBC 237 ug/dL Low 250-450 [facility] Comment on above: Order Comment: Has Evelin solorzano had X-rays with Contrast this admission? NN Performed By: #### L 100.0100, L500.4050 #### [facility] [address] [place], [address] Laboratory - Chemistry and C hemistry - challengeOrdered By: Tahir Rivas on 12-12-2023 CO2 [Moles/Vol] 29.0 mmol/L 21.0-32.0 [facility] Cobalamin (Vitamin B12) [Mass/Vol] 1452 pg/mL 211-911 [facility] Ferritin [Mass/Vol] 187 ng/mL 8-252 [facility] Urea nitrogen/Creatinine [Mass ratio] 47.0 mg/mg 10-20 [facility] No Panel InformationOrdered By: Tahir Rivas on 12-12-2023 Estimated Creatinine Clearance Calc 49.24 ml/min [facility] Estimated GFR (MDRD) Amer 96 mL/min >60 [facility] Comment on above: GFR Calc Estimated GFR (MDRD) Non-Af Amer 80 mL/min >60 [facility] Comment on above: Non- GFR Calc Folate 16.00 ng/mL 3.1-55.4 [facility] Total Iron Binding Capacity 237 ug/dL 250-450 [facility] Serum or plasma calcium haris urement (mass/volume)Ordered By: Tahir Rivas on 12-12-2023 Calcium [Mass/Vol] 8.6 mg/dL 8.5-10.1 [facility] Serum or plasma creatinine m easurement (mass/volume)Ordered By: Tahir Rob on 12-12-2023 Creatinine [Mass/Vol] 0.74 mg/dL 0.55-1.02 [facility] Comment on above: The validity of the calculated GFR & GFRAA in patients over 70 years has not been determined. Clinical correlation is essential. Serum or plasma iron saturat ion measurement (mass fraction)Ordered By: Tahir Rivas on 12-12-2023 Iron saturation [Mass fraction] 35.9 % 15.0-55.0 [facility] Serum or plasma urea nitroge n measurement (mass/volume)Ordered By: Tahir Rob on 12-12-2023 Urea nitrogen [Mass/Vol] 35 mg/dL 7-18 [facility] Thin prep Papanicolaou smear with manual screeningOrdered By: Tahir Rivas on 12-12-2023 Thin prep Papanicolaou smear with manual screening 3 5-15 [facility] Abdomen/Pelvis W IV Cont ONL Yon 12-11-2023 Abdomen/Pelvis W IV Cont ONLY [facility] Imaging Services [address] [place] [address] Abdomen/Pelvis W IV Cont ONLY MR#: [id number] Acct: [id number] Name: KELLIE DOZIER Rep #: [id number] : 1945 F 78 From: Bryan Dumas PCP: Dr. Santo Love MD Status: [facility] Study: Abdomen/Pelvis W IV Cont ONLY Date of Exam: Exam# [id number] Ordering Dr: Panchito Zavaleta MD [id number] STUDY: CT ABDOMEN AND PELVIS WITH CONTRAST REASON FOR EXAM: Female, 78 years old. Fall, RUQ pain, hematemesis RADIATION DOSAGE (If Supplied By Facility): CTDIvol = ( 11.51 ) mGy, DLP = ( 634.30 ) mGycm TECHNIQUE: IV 100mL Isovue-300 was administered. Transaxial images were obtained from the dome of the diaphragm to the symphysis pubis. Multiplanar coronal and sagittal images were reformatted. Individualized Dose Optimization Techniques Were Used For This CT. COMPARISON: No relevant prior comparison study available FINDINGS: The visualized lung bases are unremarkable. The visualized portions of the heart are within normal limits. Normal liver. Normal gallbladder and extrahepatic biliary system. There is a benign calcified granuloma of the spleen. Normal pancreas. Normal bilateral adrenal glands. Nonspecific fluid-filled slightly prominent small bowel loops. No evidence of small bowel obstruction. Fecal retention. Focal stranding in the right lower quadrant extending from the cecum (axial images 73-81 and coronal images 71-67). Thickened appendix is doubtful. The appendix otherwise is not visualized. Surgical anastomosis sutures in the region of the rectosigmoid colon. There is atherosclerotic calcification of the abdominal aorta, without a demonstrated aneurysm. No retroperitoneal adenopathy. 1.6 cm it is effecting simple cyst in the lateral aspect of right kidney for which no further follow-up exam is needed. No evidence of hydronephrosis. Normal urinary bladder. There is absence of the uterus consistent with a prior hysterectomy. Normal abdominal wall. No demonstrated acute osseous changes. CT/Abdomen/Pelvis W IV Cont ONLY IMPRESSION: 1. Nonspecific fluid-filled small bowel loops without evidence of small bowel obstruction. Enteritis is possible. 2. Focal stranding right lower quadrant extending from the cecum. Thickened appendix is doubtful. Follow-up exam is recommended if indicated. Electronically Signed: Bryan Belle MD at 10:05 EST , CC: Dr. Panchito Zavaleta MD; Dr. Santo Love MD Director [employer]: Signed Normal [facility] Absolute lymphocyte countOrd ered By: Panchito Zavaleta on 12-11-2023 Lymphocytes Auto (Unsp spec) [#/Vol] 0.95 10*3/uL 0.83-4.51 [facility] Automated lymphocyte count a s percentage of total leukocytesOrdered By: Panchito Zavaleta on 12-11-2023 Lymphocytes/100 WBC Auto (Unsp spec) 7.0 % 19-41 [facility] Basophil percentageOrdered B y: Panchito Zavaleta on 12-11-2023 Basophil percentage 0-5 SEEN /hpf 0-5 [facility] Basophils/100 WBC (Bld) 0.3 % 0-1 [facility] Bilirubin [Mass/Vol] 0.40 mg/dL 0.20-1.00 [facility] Comment on above: For patients on eltr ombopag therapy, use of Dimension [place] TBIL is not recommended. Chloride [Moles/Vol] 103 mmol/L 98-107 [facility] Eosinophils/100 WBC (Bld) 0.1 % 0-5 [facility] Glucose [Mass/Vol] 317 mg/dL 74-106 [facility] Comment on above: Glucose result great er than or equal to 200 mg/dLsuggests DIABETES MELLITUS per A.D.A. criteria. Hemoglobin (Bld) [Mass/Vol] 10.8 g/dL 12.0-15.0 [facility] Monocytes/100 WBC (Bld) 6.2 % 0-10 [facility] Neutrophils (Bld) [#/Vol] 11.7 10*3/uL 2.0-7.7 [facility] Neutrophils/100 WBC (Bld) 86.0 % 47-70 [facility] Potassium [Moles/Vol] 4.2 mmol/L 3.5-5.1 [facility] Protein [Mass/Vol] 6.5 g/dL 6.4-8.2 [facility] Sodium [Moles/Vol] 140 mmol/L 136-145 [facility] WBC (Bld) [#/Vol] 13.6 10*3/uL 4.4-11.0 [facility] Bedside Glucoseon 12-11-2023 FINGERSTICK GLU 185 mg/dL High 74-106 [facility] Comment on above: Result Comment: SYDNEY ANDERSON OF PATIENT CARE PER NURSING PROTOCOL Performed By: #### L 501.080 #### [facility] Laboratory [address] [place], [address] FINGERSTICK GLU 205 mg/dL High 74-106 [facility] Comment on above: Result Comment: SYDNEY ANDERSON OF PATIENT CARE PER NURSING PROTOCOL Performed By: #### L 501.080 ####[facility] [address] [place], [address] Bilirubin Test strip Ql (U)O rdered By: Panchito Zavaleta on 12-11-2023 Bilirubin Ql (U) 1 mg/dL Negative [facility] Comment on above: COLOR OF URINE MAY A FFECT DIPSTICK RESULTS. CBC W/Diff, Automatedon Absolute Lymph 0.95 X10 3/uL Normal 0.83-4.51 [facility] Comment on above: Performed By: #### L 100.0100, L500.4050 #### [facility] [address] [place], [address] Absolute Neut 11.7 X10 3/uL High 2.0-7.7 [facility] Comment on above: Performed By: #### L 100.0100, L500.4050 #### [facility] [address] [place], [address] Basophils/100 WBC (Bld) 0.3 % Normal 0-1 [facility] Comment on above: Performed By: #### L 100.0100, L500.4050 #### [facility] [address] [place], [address] Eosinophils/100 WBC (Bld) 0.1 % Normal 0-5 [facility] Comment on above: Performed By: #### L 100.0100, L500.4050 #### [facility] [address] [place], [address] Erythrocyte distribution width (RBC) [Ratio] 13.6 % Normal 11.6-14.6 [facility] Comment on above: Performed By: #### L 100.0100, L500.4050 #### [facility] [address] [place], [address] Hematocrit (Bld) [Volume fraction] 33.1 % Low 37-47 [facility] Comment on above: Performed By: #### L 100.0100, L500.4050 #### [facility] [address] [place], [address] Hemoglobin (Bld) [Mass/Vol] 10.8 g/dL Low 12.0-15.0 [facility] Comment on above: Performed By: #### L 100.0100, L500.4050 #### [facility] [address] [place], [address] IG% 0.400 Normal 0.0-0.9 [facility] Comment on above: Result Comment: IG% - Immature Granulocytes (promyelocytes, myelocytes and metamyelocytes) > 1% indicates that a LEFT SHIFT is Present. Performed By: #### L 100.0100, L500.4050 #### [facility] [address] [place], [address] Lymphocytes/100 WBC (Bld) 7.0 % Low 19-41 [facility] Comment on above: Performed By: #### L 100.0100, L500.4050 #### [facility] [address] [place], [address] MCH (RBC) [Entitic mass] 29.8 pg Normal 27.0-32.0 [facility] Comment on above: Performed By: #### L 100.0100, L500.4050 #### [facility] [address] [place], [address] MCHC (RBC) [Mass/Vol] 32.6 g/dL Normal 32-36 [facility] Comment on above: Performed By: #### L 100.0100, L500.4050 #### [facility] [address] [place], [address] MCV (RBC) [Entitic vol] 91.2 fL Normal 81-99 [facility] Comment on above: Performed By: #### L 100.0100, L500.4050 #### [facility] [address] [place], [address] Monocytes/100 WBC (Bld) 6.2 % Normal 0-10 [facility] Comment on above: Performed By: #### L 100.0100, L500.4050 #### [facility] [address] [place], [address] Neutrophils/100 WBC (Bld) 86.0 % High 47-70 [facility] Comment on above: Performed By: #### L 100.0100, L500.4050 #### [facility] [address] [place], [address] Nucleated RBC (Bld) [#/Vol] 0 10*3/uL Normal 0-5 [facility] Comment on above: Performed By: #### L 100.0100, L500.4050 #### [facility] [address] [place], [address] Platelet mean volume (Bld) [Entitic vol] 10.3 fL Normal 6.2-12.0 [facility] Comment on above: Performed By: #### L 100.0100, L500.4050 #### [facility] [address] [place], [address] Platelets (Bld) [#/Vol] 244 10*3/uL Normal 150-450 [facility] Comment on above: Performed By: #### L 100.0100, L500.4050 #### [facility] [address] [place], [address] RBC (Bld) [#/Vol] 3.63 10*6/uL Low 4.2-5.4 [facility] Comment on above: Performed By: #### L 100.0100, L500.4050 #### [facility] [address] [place], [address] RDW SD 46.0 fl High 35.1-43.9 [facility] Comment on above: Performed By: #### L 100.0100, L500.4050 #### [facility] [address] [place], [address] WBC (Bld) [#/Vol] 13.6 10*3/uL High 4.4-11.0 [facility] Comment on above: Performed By: #### L 100.0100, L500.4050 #### [facility] [address] [place], [address] CBC-Complete Blood Cnt No Di ffon 12-11-2023 Erythrocyte distribution width (RBC) [Ratio] 13.7 % Normal 11.6-14.6 [facility] Comment on above: Performed By: #### L 501.080 #### [facility] [address] [place], [address] Hematocrit (Bld) [Volume fraction] 30.7 % Low 37-47 [facility] Comment on above: Performed By: #### L 501.080 #### [facility] [address] [place], [address] Hemoglobin (Bld) [Mass/Vol] 10.0 g/dL Low 12.0-15.0 [facility] Comment on above: Performed By: #### L 501.080 #### [facility] [address] [place], [address] MCH (RBC) [Entitic mass] 30.1 pg Normal 27.0-32.0 [facility] Comment on above: Performed By: #### L 501.080 #### [facility] [address] [place], [address] MCHC (RBC) [Mass/Vol] 32.6 g/dL Normal 32-36 [facility] Comment on above: Performed By: #### L 501.080 #### [facility] [address] [place], [address] MCV (RBC) [Entitic vol] 92.5 fL Normal 81-99 [facility] Comment on above: Performed By: #### L 501.080 #### [facility] [address] [place], [address] Platelet mean volume (Bld) [Entitic vol] 10.4 fL Normal 6.2-12.0 [facility] Comment on above: Performed By: #### L 501.080 #### [facility] [address] [place], [address] Platelets (Bld) [#/Vol] 234 10*3/uL Normal 150-450 [facility] Comment on above: Performed By: #### L 501.080 #### [facility] [address] [place], [address] RBC (Bld) [#/Vol] 3.32 10*6/uL Low 4.2-5.4 [facility] Comment on above: Performed By: #### L 501.080 #### [facility] [address] [place], [address] RDW SD 46.5 fl High 35.1-43.9 [facility] Comment on above: Performed By: #### L 501.080 #### [facility] [address] [place], [address] WBC (Bld) [#/Vol] 13.0 10*3/uL High 4.4-11.0 [facility] Comment on above: Performed By: #### L 501.080 #### [facility] [address] [place], [address] Chest 1 View (Portable)on Chest 1 View (Portable) [facility] Imaging Services [address] [place] [address] Chest 1 View (Portable) MR#: [id number] Acct: [id number] Name: KELLIE DOZIER Rep #: [id number] : 1945 F 78 From: Bryan Dumas PCP: Dr. Santo Love MD Status: [facility] Study: Chest 1 View (Portable) Date of Exam: 12/11/23 Exam# [id number] Ordering Dr: Panchito Zavaleta MD [id number] INDICATION: trauma EXAMINATION/TECHNIQUE: X-RAY - XR Chest 1 View COMPARISON: No relevant prior comparison study available FINDINGS: LINES/DEVICES: None. LUNGS: Small nodules in the right midlung zone could be due to granulomata. Other etiologies are not excluded. No focal infiltrate otherwise is seen. No evidence of pleural effusions. MEDIASTINUM AND CARDIOVASCULAR STRUCTURES: Cardiac silhouette not enlarged. Central airways and mediastinal contour are unremarkable. BONES AND SOFT TISSUES: Degenerative changes in the thoracic spine. Surgical clips in right axilla. RAD/Chest 1 View (Portable) IMPRESSION: Small right midlung nodules. If no previous examination is available for comparison, CT scan of the chest is recommended. Otherwise no active pulmonary disease. Electronically Signed: Bryan Belle MD at 10:07 EST , CC: Dr. Panchito Zavaleta MD; Dr. Santo Love MD Director [employer]: Signed Normal [facility] Comprehensive Metabolic Prof ilon 12-11-2023 Albumin [Mass/Vol] 3.1 g/dL Low 3.2-5.0 [facility] Comment on above: Performed By: #### L 100.0100, L500.4050 #### [facility] [address] [place], [address] Albumin/Globulin [Mass ratio] 0.9 {ratio} Normal 0.9-2.4 [facility] Comment on above: Performed By: #### L 100.0100, L500.4050 #### [facility] [address] [place], [address] ALK P 96 U/L Normal 45-117 [facility] Comment on above: Performed By: #### L 100.0100, L500.4050 #### [facility] [address] [place], [address] ALT [Catalytic activity/Vol] 24 U/L Normal 13-56 [facility] Comment on above: Performed By: #### L 100.0100, L500.4050 #### [facility] [address] [place], [address] AST [Catalytic activity/Vol] 16 U/L Normal 15-37 [facility] Comment on above: Performed By: #### L 100.0100, L500.4050 #### [facility] [address] [place], [address] Bilirubin [Mass/Vol] 0.40 mg/dL Normal 0.20-1.00 [facility] Comment on above: Result Comment: For patients on eltrombopag therapy, use of Dimension [place] TBIL is not recommended. Performed By: #### L 100.0100, L500.4050 #### [facility] [address] [place], [address] BUN/CRE 37.8 RATIO High 10-20 [facility] Comment on above: Performed By: #### L 100.0100, L500.4050 #### [facility] [address] [place], [address] CA,Total 9.1 mg/dL Normal 8.5-10.1 [facility] Comment on above: Performed By: #### L 100.0100, L500.4050 #### [facility] [address] [place], [address] Chloride [Moles/Vol] 103 mmol/L Normal 98-107 [facility] Comment on above: Performed By: #### L 100.0100, L500.4050 #### [facility] [address] [place], [address] CO2 [Moles/Vol] 27.0 mmol/L Normal 21.0-32.0 [facility] Comment on above: Performed By: #### L 100.0100, L500.4050 #### [facility] [address] [place], [address] Creatinine [Mass/Vol] 0.98 mg/dL Normal 0.55-1.02 [facility] Comment on above: Result Comment: The validity of the calculated GFR GFRAA in patients over 70 years has not been determined. Clinical correlation is essential. Performed By: #### L 100.0100, L500.4050 #### [facility] [address] [place], [address] EST GFR - AA 70 mL/min Normal >60 [facility] Comment on above: Result Comment: Afri can [place] GFR Calc Performed By: #### L 100.0100, L500.4050 #### [facility] [address] [place], [address] GAP 10 Normal 5-15 [facility] Comment on above: Performed By: #### L 100.0100, L500.4050 #### [facility] [address] [place], [address] GFR/1.73 sq M.predicted among non-blacks MDRD (S/P/Bld) [Vol rate/Area] 58 mL/min/{1.73_m2} Low >60 [facility] Comment on above: Result Comment: Non- GFR Calc Performed By: #### L 100.0100, L500.4050 #### [facility] [address] [place], [address] Globulin (S) [Mass/Vol] 3.4 g/dL Normal 2.2-4.2 [facility] Comment on above: Performed By: #### L 100.0100, L500.4050 #### [facility] [address] [place], [address] Glucose [Mass/Vol] 317 mg/dL High 74-106 [facility] Comment on above: Result Comment: Gluc ose result greater than or equal to 200 mg/dL suggests DIABETES MELLITUS per A.D.A. criteria. Performed By: #### L 100.0100, L500.4050 #### [facility] [address] [place], [address] Potassium [Moles/Vol] 4.2 mmol/L Normal 3.5-5.1 [facility] Comment on above: Performed By: #### L 100.0100, L500.4050 #### [facility] [address] [place], [address] Sodium [Moles/Vol] 140 mmol/L Normal 136-145 [facility] Comment on above: Performed By: #### L 100.0100, L500.4050 #### [facility] [address] [place], [address] T PROT 6.5 g/dL Normal 6.4-8.2 [facility] Comment on above: Performed By: #### L 100.0100, L500.4050 #### [facility] [address] [place], [address] Urea nitrogen [Mass/Vol] 37 mg/dL High 7-18 [facility] Comment on above: Performed By: #### L 100.0100, L500.4050 #### [facility] [address] [place], [address] Determination of erythrocyte mean corpuscular volume (MCV)Ordered By: Panchito Zavaleta on 12-11-2023 MCV (RBC) [Entitic vol] 91.2 fL 81-99 [facility] Emergency Department Summary on 12-11-2023 Emergency Department Summary [facility] Medical Records Department [address] [place] [address] Emergency Department Summary 12/11/23 MR#: [id number] Acct: [id number] Name: KELLIE DOZIER [place] Rep #: [id number] : 1945 78 From: Panchito Zavaleta MD PCP: Dr. Santo Love MD Status:ADM IN Location: [place] [address] HPI HPI - GI History of Present Illness Chief Complaint: GI Bleed Informant: patient and family Narrative Narrative: Patient had an accidental fall 2 days ago. She was holding the leash and the dog pulled her down. She fell prone onto the floor inside her home. She has been having some pain in her right upper abdomen and ribs that started the day after. Yesterday she started vomiting, and overnight it turned red. Initially the emesis was dark, and the last 6 or 7 emesis was dark red blood. Her last bowel movement was yesterday and it was normal without diarrhea, melena, blood. She denies any chest pain or shortness of breath, she states her rib hurts in the right upper quadrant area, she does not have significant pain if she takes a deep breath. She denies any head injury although she has some bruising on her head that she states was from a fall 1 or 2 weeks ago, she denies any back pain, extremity injury. She has a history of an MS with stents in her heart as well as A-fib for which she is on Eliquis. Last dose was a little more than 24 hours ago has not taken her morning medications due to vomiting this morning. 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 Essential hypertension GERD (gastroesophageal reflux disease) Liver mass Malignant neoplasm of right breast Old myocardial infarction Paroxysmal atrial fibrillation 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 tachycardia Presence of stent in coronary artery ( 05/23/09) Pure hypercholesterolemia Type 2 diabetes mellitus Home Medications apixaban 5 mg tablet (Eliquis) 5 mg PO BID a.fib 09/06/19 [History Last Taken 02/12/21] cyanocobalamin (vitamin B-12) 1,000 mcg tablet 1,000 mcg PO DAILY 09/06/19 [History Last Taken 02/12/21] pravastatin 80 mg tablet 80 mg PO QHS 09/06/19 [History Last Taken 02/11/21] pyridoxine (vitamin B6) 100 mg tablet 100 mg PO DAILY 09/06/19 [History Last Taken 02/12/21] nitroglycerin 0.4 mg sublingual tablet 0.4 mg sublingual Q5-15M PRN chest pain #90 tabs 09/08/19 [Rx Last Taken Unknown] insulin glargine U-300 conc 300 unit/mL (1.5 mL) subcutaneous pen 20 unit subcut QHS 08/14/21 [History Last Taken Unknown] dulaglutide 4.5 mg/0.5 mL subcutaneous pen injector (Trulicity) 4.5 mg subcut MO 08/06/23 [History Last Taken 12/07/23] verapamil 300 mg capsule 24hr pellet CT,ext.release 300 mg PO QHS 08/06/23 [History Last Taken Unknown] brimonidine 0.2 % eye drops 1 drp ophthalmic (eye) BID 12/11/23 [History Last Taken Unknown] calcium carbonate 600 mg-vitamin D3 5 mcg (200 unit) tablet (Calcium 600 + D(3)) 1 tab PO DAILY 12/11/23 [History Last Taken Unknown] lisinopril 40 mg tablet 20 mg PO DAILY HIG BLOOD PRESSURE 12/11/23 [History Last Taken Unknown] Allergy/AdvReac Type Severity Reaction Status Date / Time alendronate sodium AdvReac Severe myalgias Verified 12/11/23 07:49 [From Fosamax] amoxicillin [Amoxicillin] AdvReac Nausea/Vom/ Verified 12/11/23 07:49 Diarrhea metformin AdvReac Nausea/Vom/ Verified 12/11/23 07:49 Diarrhea shellfish derived AdvReac Nausea/Vom/ Verified 12/11/23 07:49 Diarrhea Family History Mother Hypertension Diabetes CVA (cerebral vascular accident) CAD (coronary artery disease) Father History of DVT (deep vein thrombosis) Surgical History History of eyelid surgery (05/28/23) History of total abdominal hysterectomy Presence of coronary angioplasty implant and graft ( 05/23/09) S/P lumpectomy, right breast Social History Smoking Status: Never smoker alcohol intake: never substance use type: does not use caffeine: Yes Type: coffee Number of servings: 2 ROS ROS ED Constitutional Constitutional ED: Reports fatigue and weakness; Denies chills or fever(s) Eyes Eyes: Denies change in vision or diplopia ENT ENT ED: Denies rhinorrhea or sore throat Cardiovascular Cardiovascular: Denies chest pain or palpitations Respiratory/Chest Respiratory/Chest: Denies cough or dyspnea Gastrointestinal Gastrointestinal: Reports abdominal pain, hematemesis, nausea and vomiting; Denies diarrhea, melena or rectal bleeding Genitourinary Genitourinary ED: Denies dysuria or hematuria Musculoskeletal Musculoskeletal: Denies back pain or neck pain Integumentary Denies abscess or rash Neurolog (more content not included)... Normal [facility] Erythrocyte distribution wid th ratioOrdered By: Panchito Zavaleta on 12-11-2023 Erythrocyte distribution width (RBC) [Ratio] 13.6 % 11.6-14.6 [facility] Erythrocyte distribution wid th standard deviationOrdered By: Panchito Zavaleta on 12-11-2023 Erythrocyte distribution width (RBC) [Entitic vol] 46.0 fL 35.1-43.9 [facility] H AND P Exam - Hospitaliston 12-11-2023 H&P Exam - Hospitalist [facility] Medical Records Department [address] [place] [address] H P Exam - Hospitalist 12/11/23 1137 MR#: [id number] Acct: [id number] Name: KELLIE DOZIER Rep #: [id number] : 1945 78 From: Tahir Rivas DO PCP: Dr. Santo Love MD Status:ADM IN Location: [place] [address] HPI - General General Date of Admission: 12/11/23 Date of Service: 12/11/23 Chief Complaint: Hematemesis HPI Narrative KELLIE DOZIER, is a 78 F who presented to [facility] ED on 12/11/2023 with hematemesis. Patient seen at bedside on the floor shortly after coming over from the ED, daughter present. Patient was sitting up comfortably in bedside chair, conversing normally, no acute distress. Patient lives with her daughter, has good functional status baseline. Patient is on Eliquis for A-fib, has never had issues with bleeding while on Eliquis. No previous history of GI bleeds. Patient states that she was walking the dog a few days ago when the dog pulled on the leash and patient fell forward to the ground. She did not lose consciousness. States she has had moderate right-sided rib pain since that time. Patient then started to have vomiting yesterday evening and noticed that it was initially blood-tinged. She then had 6-7 episodes of dark red emesis later yesterday night and this morning which prompted her to come into the ED for further evaluation. Patient has not had any further episodes of hematemesis since arriving to the ED. She denies any shortness of breath at rest. She does report mild pain in her ribs and right upper abdomen but states this is very manageable at rest. States her last bowel movement was yesterday and it was normal without diarrhea, melena or blood. She otherwise denies any fevers or chills. No other acute concerns this time. 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 Essential hypertension GERD (gastroesophageal reflux disease) Liver mass Malignant neoplasm of right breast Old myocardial infarction Paroxysmal atrial fibrillation 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 tachycardia Presence of stent in coronary artery ( 05/23/09) Pure hypercholesterolemia Type 2 diabetes mellitus Home Medications apixaban 5 mg tablet (Eliquis) 5 mg PO BID a.fib 09/06/19 [History Last Taken 02/12/21] cyanocobalamin (vitamin B-12) 1,000 mcg tablet 1,000 mcg PO DAILY 09/06/19 [History Last Taken 02/12/21] pravastatin 80 mg tablet 80 mg PO QHS 09/06/19 [History Last Taken 02/11/21] pyridoxine (vitamin B6) 100 mg tablet 100 mg PO DAILY 09/06/19 [History Last Taken 02/12/21] nitroglycerin 0.4 mg sublingual tablet 0.4 mg sublingual Q5-15M PRN chest pain #90 tabs 09/08/19 [Rx Last Taken Unknown] insulin glargine U-300 conc 300 unit/mL (1.5 mL) subcutaneous pen 20 unit subcut QHS 08/14/21 [History Last Taken Unknown] dulaglutide 4.5 mg/0.5 mL subcutaneous pen injector (Trulicity) 4.5 mg subcut MO 08/06/23 [History Last Taken 12/07/23] verapamil 300 mg capsule 24hr pellet CT,ext.release 300 mg PO QHS 08/06/23 [History Last Taken Unknown] brimonidine 0.2 % eye drops 1 drp ophthalmic (eye) BID 12/11/23 [History Last Taken Unknown] calcium carbonate 600 mg-vitamin D3 5 mcg (200 unit) tablet (Calcium 600 + D(3)) 1 tab PO DAILY 12/11/23 [History Last Taken Unknown] lisinopril 40 mg tablet 20 mg PO DAILY HIG BLOOD PRESSURE 12/11/23 [History Last Taken Unknown] Allergy/AdvReac Type Severity Reaction Status Date / Time alendronate sodium AdvReac Severe myalgias Verified 12/11/23 07:49 [From Fosamax] amoxicillin [Amoxicillin] AdvReac Nausea/Vom/ Verified 12/11/23 07:49 Diarrhea metformin AdvReac Nausea/Vom/ Verified 12/11/23 07:49 Diarrhea shellfish derived AdvReac Nausea/Vom/ Verified 12/11/23 07:49 Diarrhea Family History Mother Hypertension Diabetes CVA (cerebral vascular accident) CAD (coronary artery disease) Father History of DVT (deep vein thrombosis) Surgical History History of eyelid surgery (05/28/23) History of total abdominal hysterectomy Presence of coronary angioplasty implant and graft ( 05/23/09) S/P lumpectomy, right breast Social History household members: family housing: house Smoking Status: Never smoker alcohol intake: never substance use type: does not use caffeine: Yes Type: coffee Number of servings: 2 ROS Constitutional Constitutional: Denies chills, fatigue, fever(s) or weakness Eyes Eyes: Denies change in vision ENT HEENT: Denies nasal congestion, nasal discharge, post nasal drip, sinus pressure or sore throat Cardiovascular Cardiovascular: Denies chest pain, (more content not included)... Normal [facility] Hematocrit Auto (Bld) [Volum e fraction]Ordered By: Panchito Zavaleta on 12-11-2023 Hematocrit (Bld) [Volume fraction] 33.1 % 37-47 [facility] Hemoglobin A1con 12-11-2023 HbA1c (Bld) [Mass fraction] 8.2 % High 3.8-5.6 [facility] Comment on above: Result Comment: Norm al < 5.7 % Prediabetic 5.7 - 6.4 % Diabetic >or= 6.5 % Please note range changes. Performed By: #### L 501.080 #### [facility] [address] [place] [address]. [place], [address] Immature granulocytes/100 WB C Auto (Bld)Ordered By: Panchito Zavaleta on 12-11-2023 Immature granulocytes/100 WBC (Bld) 0.400 % 0.0-0.9 [facility] Comment on above: IG% - Immature Granu locytes (promyelocytes, myelocytes and metamyelocytes) > 1% indicates that a LEFT SHIFT is Present. Ketones Test strip Ql (U)Ord ered By: Panchito Zavaleta on 12-11-2023 Ketones Ql (U) 150 mg/dl Negative [facility] Comment on above: RESULTS CALLED TO [place] 12/11/23 Ish1 Shannan Holland.REPORT READ BACK BY SAME.CRITICAL VALUE *H Laboratory - Chemistry and C hemistry - challengeOrdered By: Panchito Zavaleta on 12-11-2023 Albumin/Globulin [Mass ratio] 0.9 {ratio} 0.9-2.4 [facility] ALP [Catalytic activity/Vol] 96 U/L 45-117 [facility] ALT [Catalytic activity/Vol] 24 U/L 13-56 [facility] CO2 [Moles/Vol] 27.0 mmol/L 21.0-32.0 [facility] Globulin (S) [Mass/Vol] 3.4 g/dL 2.2-4.2 [facility] Urea nitrogen/Creatinine [Mass ratio] 37.8 mg/mg 10-20 [facility] Laboratory - Hematology and Cell countsOrdered By: Panchito Zavaleta on 12-11-2023 MCH (RBC) [Entitic mass] 29.8 pg 27.0-32.0 [facility] MCHC (RBC) [Mass/Vol] 32.6 g/dL 32-36 [facility] Nucleated RBC/100 WBC (Bld) [Ratio] 0 % 0-5 [facility] Platelet mean volume (Bld) [Entitic vol] 10.3 fL 6.2-12.0 [facility] Platelets (Bld) [#/Vol] 244 10*3/uL 150-450 [facility] MR/CON.PCM.GIon 12-11-2023 MR/CON.PCM.GI [facility] Medical Records Department [address] [place] [address] Consultation - GI 12/11/232028 MR#: [id number] Acct: [id number] Name: KELLIE DOZIER MARIETTA Rep #: [id number] : 1945 78 From: Cullen Friend DO PCP: Dr. Santo Love MD Status:ADM IN Location: [facility] [id number] HPI Consult Data Date of Consult: 12/11/23 HPI Narrative Reason for Consultation: GI bleed HPI Narrative: KELLIE DOZIER, is a 78 F with Afib on eliquis presents after an accidental fall 2 days ago. She was holding the leash and the dog pulled her down. She fell prone onto the floor inside her home. She has been having some pain in her right upper abdomen and ribs that started the day after. Yesterday she started vomiting, and overnight it turned red. Initially the emesis was dark, and the last 6 or 7 emesis was dark red blood. Her last bowel movement was yesterday and it was normal without diarrhea, melena, blood. She denies any chest pain or shortness of breath, she states her rib hurts in the right upper quadrant area, she does not have significant pain if she takes a deep breath. She denies any head injury although she has some bruising on her head that she states was from a fall 1 or 2 weeks ago, she denies any back pain, extremity injury. She has a history of an MS with stents in her heart as well as A-fib for which she is on Eliquis. Last dose was a little more than 24 hours ago has not taken her morning medications due to vomiting this morning Her last hgb was 12 severall years ago prior to being admitted today. Her hgb today is 10.2. 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 Essential hypertension GERD (gastroesophageal reflux disease) Liver mass Malignant neoplasm of right breast Old myocardial infarction Paroxysmal atrial fibrillation 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 tachycardia Presence of stent in coronary artery ( 05/23/09) Pure hypercholesterolemia Type 2 diabetes mellitus Home Medications apixaban 5 mg tablet (Eliquis) 5 mg PO BID a.fib 09/06/19 [History Last Taken 02/12/21] cyanocobalamin (vitamin B-12) 1,000 mcg tablet 1,000 mcg PO DAILY 09/06/19 [History Last Taken 02/12/21] pravastatin 80 mg tablet 80 mg PO QHS 09/06/19 [History Last Taken 02/11/21] pyridoxine (vitamin B6) 100 mg tablet 100 mg PO DAILY 09/06/19 [History Last Taken 02/12/21] nitroglycerin 0.4 mg sublingual tablet 0.4 mg sublingual Q5-15M PRN chest pain #90 tabs 09/08/19 [Rx Last Taken Unknown] insulin glargine U-300 conc 300 unit/mL (1.5 mL) subcutaneous pen 20 unit subcut QHS 08/14/21 [His tory Last Taken Unknown] dulaglutide 4.5 mg/0.5 mL subcutaneous pen injector (Trulicity) 4.5 mg subcut MO 08/06/23 [History Last Taken 12/07/23] verapamil 300 mg capsule 24hr pellet CT,ext.release 300 mg PO QHS 08/06/23 [History Last Taken Unknown] brimonidine 0.2 % eye drops 1 drp ophthalmic (eye) BID 12/11/23 [History Last Taken Unknown] calcium carbonate 600 mg-vitamin D3 5 mcg (200 unit) tablet (Calcium 600 + D(3)) 1 tab PO DAILY 12/11/23 [History Last Taken Unknown] lisinopril 40 mg tablet 20 mg PO DAILY HIG BLOOD PRESSURE 12/11/23 [History Last Taken Unknown] Allergy/AdvReac Type Severity Reaction Status Date / Time alendronate sodium AdvReac Severe myalgias Verified 12/11/23 07:49 [From Fosamax] amoxicillin [Amoxicillin] AdvReac Nausea/Vom/ Verified 12/11/23 07:49 Diarrhea metformin AdvReac Nausea/Vom/ Verified 12/11/23 07:49 Diarrhea shellfish derived AdvReac Nausea/Vom/ Verified 12/11/23 07:49 Diarrhea Family History Mother Hypertension Diabetes CVA (cerebral vascular accident) CAD (coronary artery disease) Father History of DVT (deep vein thrombosis) Surgical History History of eyelid surgery (05/28/23) History of total abdominal hysterectomy Presence of coronary angioplasty implant and graft ( 05/23/09) S/P lumpectomy, right breast Social History household members: family housing: house Smoking Status: Never smoker alcohol intake: never substance use type: does not use caffeine: Yes Type: coffee Number of servings: 2 ROS Constitutional Constitutional: Denies chills, fatigue, fever(s) or weakness Eyes Eyes: Denies change in vision ENT HEENT: Denies nasal congestion, nasal discharge, post nasal drip, sinus pressure or sore throat Cardiovascular Cardiovascular: Denies chest pain, dyspnea on exertion, edema or lightheadedness Respiratory/Chest Respiratory/Chest: Denies cough, shortness of breath at rest, shortness of breath with exertion or wheezing Gastrointestinal Gastrointestinal: Reports hemate (more content not included)... Normal [facility] Mucus LM Ql (Urine sed)Order ed By: Panchito Zavaleta on 12-11-2023 Mucus Ql (Urine sed) 1+ /hpf [facility] Nitrite Test strip Ql (U)Ord ered By: Panchito Zavaleta on 12-11-2023 Nitrite Ql (U) Negative Negative [facility] No Panel InformationOrdered By: Panchito Zavaleta on 12-11-2023 Urine RBC 0-5 SEEN /hpf 0-5 [facility] Estimated GFR (MDRD) Amer 70 mL/min >60 [facility] Comment on above: GFR Calc Estimated GFR (MDRD) Non-Af Amer 58 mL/min >60 [facility] Comment on above: Non- GFR Calc Protein Test strip Ql (U)Ord ered By: Panchito Zavaleta on 12-11-2023 Protein Ql (U) 15 mg/dl Negative [facility] RBC Auto (Bld) [#/Vol]Ordere d By: Panchito Zavaleta on 12-11-2023 RBC (Bld) [#/Vol] 3.63 10*6/uL 4.2-5.4 [facility] Serum or plasma calcium haris urement (mass/volume)Ordered By: Panchito Zavaleta on 12-11-2023 Calcium [Mass/Vol] 9.1 mg/dL 8.5-10.1 [facility] Serum or plasma creatinine m easurement (mass/volume)Ordered By: Panchito Zavaleta on 12-11-2023 Creatinine [Mass/Vol] 0.98 mg/dL 0.55-1.02 [facility] Comment on above: The validity of the calculated GFR & GFRAA in patients over 70 years has not been determined. Clinical correlation is essential. Serum or plasma urea nitroge n measurement (mass/volume)Ordered By: Panchito Zavaleta on 12-11-2023 Urea nitrogen [Mass/Vol] 37 mg/dL 7-18 [facility] Squamous epithelial cells de tection in urine sediment by light microscopyOrdered By: Panchito Zavaleta on 12-11-2023 Epithelial cells.squamous LM Ql (Urine sed) 0-5 SEEN /hpf 5-10 [facility] Thin prep Papanicolaou smear with manual screeningOrdered By: Panchito Zavaleta on 12-11-2023 Thin prep Papanicolaou smear with manual screening 3.1 g/dL 3.2-5.0 [facility] Thin prep Papanicolaou smear with manual screening 16 U/L 15-37 [facility] Thin prep Papanicolaou smear with manual screening 10 5-15 [facility] Type AND Screenon 12-11-2023 ABO and Rh group Nom (Bld) Blood group A Rh(D) positive Normal [facility] Comment on above: Order Comment: HGI Performed By: #### L 501.080 #### [facility] [address] [place], [address] Urinalysis, Completeon 12-11 BACTERIA RARE Normal None Seen [facility] Comment on above: Order Comment: CLEAN CATCH Performed By: #### L 501.080 #### [facility] [address] [place], [address] EPI,SQUAMOUS 0-5 SEEN Normal 5-10 [facility] Comment on above: Order Comment: CLEAN CATCH Performed By: #### L 501.080 #### [facility] [address] [place], [address] Mucus Ql (Urine sed) 1+ /hpf Normal [facility] Comment on above: Order Comment: CLEAN CATCH Performed By: #### L 501.080 #### [facility] [address] [place], [address] RBC 0-5 SEEN Normal 0-5 [facility] Comment on above: Order Comment: CLEAN CATCH Performed By: #### L 501.080 #### [facility] [address] [place], [address] WBC 0-5 SEEN Normal 0-5 [facility] Comment on above: Order Comment: CLEAN CATCH Performed By: #### L 501.080 #### [facility] [place], [address] Urine blood detectionOrdered By: Panchito Zavaleta on 12-11-2023 RBC Ql (U) Negative Negative [facility] Urine clarityOrdered By: Martina Zavaleta on 12-11-2023 Clarity (U) Sl. Cloudy Clear [facility] Urine color determinationOrd ered By: Panchito Zavaleta on 12-11-2023 Color (U) Yellow Yellow [facility] Urine glucose detectionOrder ed By: Panchito Zavaleta on 12-11-2023 Glucose Ql (U) 1000 mg/dl Normal [facility] Urine leukocyte esterase det ection by dipstickOrdered By: Panchito Zavaleta on 12-11-2023 Leukocyte esterase Test strip Ql (U) 25 /ul Negative [facility] Urine pHOrdered By: Panchito Zavaleta on 12-11-2023 pH (U) 5.0 [pH] 5.0 - 8.0 [facility] Urine sediment bacteria coun t by microscopy (number/high power field)Ordered By: Panchito Zavaleta on 12-11-2023 Bacteria LM.HPF (Urine sed) [#/Area] RARE /hpf None Seen [facility] Urine specific gravity measu rementOrdered By: Panchito Zavaleta on 12-11-2023 Specific gravity (U) [Rel density] 1.015 1.002-1.03 0 [facility] Urine urobilinogen measureme ntOrdered By: Panchito Zavaleta on 12-11-2023 Urobilinogen Ql (U) Normal mg/dl Normal [facility] Whole blood hemoglobin A1c/t otal hemoglobin ratio (mass fraction)Ordered By: Tahir Rivas on 12-11-2023 HbA1c (Bld) [Mass fraction] 8.2 % 3.8-5.6 [facility] Comment on above: Normal < 5.7 % Predi abetic 5.7 - 6.4 % Diabetic >or= 6.5 % Please note range changes. GENEVA SCREENINGon 07-02-[address] [facility] CBC W Auto Differential pane l (Bld)on 05-07-2023 Basophils (Bld) [#/Vol] 0.08 10*3/uL <0.11 k/uL [facility] Basophils/100 WBC (Bld) 1.0 % [facility] Differential cell count method Nom (Bld) Auto [facility] Eosinophils (Bld) [#/Vol] 0.15 10*3/uL <0.46 k/uL [facility] Eosinophils/100 WBC (Bld) 1.9 % [facility] Erythrocyte distribution width (RBC) [Ratio] 13.4 % 11.5 - 15.0 % [facility] Hematocrit (Bld) [Volume fraction] 39.0 % 36.0 - 46.0 % [facility] Hemoglobin (Bld) [Mass/Vol] 12.7 g/dL 11.5 - 15.5 g/dL [facility] Immature granulocytes (Bld) [#/Vol] 0.04 10*3/uL <0.10 k/uL [facility] Immature granulocytes/100 WBC (Bld) 0.5 % [facility] Lymphocytes (Bld) [#/Vol] 1.78 10*3/uL 1.00 - 4.00 k/uL [facility] Lymphocytes/100 WBC (Bld) 22.7 % [facility] MCH (RBC) [Entitic mass] 30.5 pg 26.0 - 34.[address] [facility] MCHC (RBC) [Mass/Vol] 32.6 g/dL 30.5 - 36.0 g/dL [facility] MCV (RBC) [Entitic vol] 93.8 fL 80.0 - 100.[address] [facility] Monocytes (Bld) [#/Vol] 0.73 10*3/uL <0.87 k/uL [facility] Monocytes/100 WBC (Bld) 9.3 % [facility] Neutrophils (Bld) [#/Vol] 5.07 10*3/uL 1.45 - 7.50 k/uL [facility] Neutrophils/100 WBC (Bld) 64.6 % [facility] Nucleated RBC (Bld) [#/Vol] <0.01 k/uL [facility] Nucleated RBC/100 WBC (Bld) [Ratio] 0.0 /[address] [facility] Platelet mean volume (Bld) [Entitic vol] 10.9 fL 9.0 - 12.[address] [facility] Platelets (Bld) [#/Vol] 223 10*3/uL 150 - 400 k/uL [facility] RBC (Bld) [#/Vol] 4.16 10*6/uL 3.90 - 5.20 m/uL [facility] WBC (Bld) [#/Vol] 7.85 10*3/uL 3.70 - 11.00 k/uL [facility] HbA1c (Bld)on 01-29-2023 Average glucose Estimated from glycated hemoglobin (Bld) [Mass/Vol] 166 mg/dL [facility] HbA1c (Bld) [Mass fraction] 7.4 % High 4.3 - 5.6 % [facility] GENEVA SCREENINGon 05-30-[address] [facility] DXA-AXIAL SKELETONon [address] [facility] EMERGENCY REPORTon EMERGENCY REPORT [facility] EMERGENCY RO[facility] REPORT NAME ACCOUNT SEX AGE ADMIT DISCHARGE PT MED. RECORD# NUMBER DATE DATE TYPE YELENA [id number] F 75 11/29/20 11/29/20 3 KE[place]IE [place] [id number] ROOM: ER DATE OF : 1945 DICTATING PHYSICIAN: Jack Meyer ADDENDUM: The bleeding initially was controlled with just pressure. The patient ambulated to the bathroom and began to bleed again from the right naris. Anterior Rhino Rocket was placed. The patient will follow with the ENT doctor, Dr. Worley, within the next 48 to 72 hours. She was asked to return to the ER if she cannot get in with Dr. Worley during this timeframe. Granddaughter is at the bedside is also agreeable. The patient was discharged home in stable condition. Dictated By: Jack Meyer DO 11/29/20 10:44 JOB #: [id number] Transcribed By: am 11/29/20 12:04 Electronically signed by: E-SIGN: Jack Meyer D.O. 12/06/20 08:23 Page 1 of 1 KELLIE DOZIER Emergency Room Report Normal [facility] EMERGENCY REPORT [facility] EMERGENCY RO[facility] REPORT NAME ACCOUNT SEX AGE ADMIT DISCHARGE PT MED. RECORD# NUMBER DATE DATE TYPE YELENA, [id number] F 75 11/29/20 3 KELLIE [place] [id number] ROOM: ER DATE OF : 1945 DICTATING PHYSICIAN: Jack Meyer HISTORY OF PRESENT ILLNESS: This is a 75-year-old female with a past medical history of CAD, irregular heartbeat, and hypertension who presents with concern for epistaxis. She states it began 2 hours ago. It is intractable. She denies any lightheadedness, dizziness, shortness of breath, or chest pain. The patient is on Plavix. PAST MEDICAL HISTORY: See above. PAST SURGICAL HISTORY: PCI. SOCIAL HISTORY: She denies any drugs, alcohol or tobacco abuse. REVIEW OF SYSTEMS: Ten systems reviewed and otherwise negative unless stated above. PHYSICAL EXAMINATION: The patient appears well and nontoxic. Vital signs show hypertension but otherwise are within normal limits. Head: Normocephalic without signs of trauma. Eyes: Extraocular motions are intact, PERRLA. Nose: Evidence of bleeding from the anterior aspect of the right naris. Mouth: No posterior pharyngeal bleeding. Neck: Trachea is midline. Supple. Lungs: Clear to auscultation. Heart: S1 and S2 appreciated without murmurs. Abdomen: Soft. Musculoskeletal: Muscle strength is +5/5 in the upper and lower extremities. Neurologic: Alert and oriented. Skin: Clear. Psychiatric: Mood and affect are normal. EMERGENCY DEPARTMENT COURSE AND TREATMENT: The patient appears well and nontoxic. Constant pressure was applied for 15 minutes. This stopped the bleeding. The patient was given her home dose of blood pressure medicine, which reduced her blood pressure. She was advised on returning for worsening nosebleed. She was asked to follow up with primary care. The patient is agreeable and discharged home in stable condition. DIAGNOSES: 1. Epistaxis, resolved. 2. Hypertension. Dictated By: Jack Meyer DO 11/29/20 10:15 JOB #: [id number] Transcribed By: eva 11/29/20 10:55 Electronically signed by: E-SIGN: Jack Meyer D.O. 12/06/20 08:23 Page 1 of 1 KELLIE DOZIER Emergency Room Report Normal [facility] EMERGENCY REPORT [facility] EMERGENCY ROOM REPORT NAME ACCOUNT SEX AGE ADMIT DISCHARGE PT MED. RECORD# NUMBER DATE DATE TYPE YELENA [id number] F 75 11/29/20 11/29/20 3 KELLIE [place] [id number] ROOM: ER DATE OF : 1945 DICTATING PHYSICIAN: Jack Meyer The patient has an anterior 7.5 cm Rhino Rocket placed. The patient began to walk outside and felt like her nose was still bleeding. There was not significant bleeding. The patient felt like it was dripping. A 7.5 cm anterior posterior pack was dipped in 1 gram TXA and placed in the nose. No further bleeding. The patient will follow up with ENT. Asked to return for new or worsening symptoms. The patient is agreeable and was discharged home in stable condition. DIAGNOSES: 1. Epistaxis, resolved. 2. Hypertension. Dictated By: Jack Meyer DO 11/29/20 11:30 JOB #: [id number] Transcribed By: marcella 11/29/20 11:50 Electronically signed by: E-SIGN: Jack Meyer D.O. 12/06/20 08:23 Page 1 of 1 KELLIE DOZIER Emergency Room Report [facility] 02-12-2018 [facility] Office Visit (AGCARDWST) ----KELLIE DOZIER ([id number]) 1945 [facility] Time Provider Department02/12/18 11:30 AM DANIEL MARCELO AGCARDWST During your visit today, we recorded the following information about you: Pulse Blood pressure Weight Height 68/minute 128/70 74.9 kg 1.626 Thony Marcelo MD 02/13/2018 3:18 PM SignedPERTINENT CARDIAC HISTORYASHD - PCI RCA and LAD, [id number] I 2nd degree AVBADHERENCE TO GUIDELINESACE-I or ARB for HF with prior LVEFANDlt;40 (NQF 0081) - N/AASA or Plavix for ASHD (NQF 0067) - metBeta librado for ASHD with prior MS or prior LVEFANDlt;40 (NQF 0070) - N/ABeta librado for HF with prior LVEFANDlt;40 (NQF 0083) - N/AACE-I or ARB for ASHD with DM or prior LVEFANDlt;40 (NQ 0066) - metStatin therapy for ASHD or FHL or DM - metBMI documented and plan if ANDgt;25 (NQF 0421) - lifestyle recommendation formTobacco use screening and referral (NQ 0028) - lifestyle recommendation formRecommendation for whole food, plant based diet - lifestyle recommendation formCLINICAL IMPRESSION/PLAN:Kellie Dozier is doing well. Her coronary disease is stable. She's had noneed for nitroglycerin.She would like to discontinue warfarin. I've asked her to check on cost ofEliquis versus Xarelto and let me know which one she wishes. We will then makethe change.She will continue her current medication. I will see her in 8 months or asneeded.Written and verbal health teaching given to patient, patient verbalizesunderstanding and agrees with treatment plan.DIAGNOSIS FOR VISIT:[facility]ULT[facility]OSPITALISTORY OF PRESENT ILLNESSKellie Dozier returns for follow-up of multiple cardiac issues, as notedabove.She reports stable exercise tolerance. She's had no chest discomfort. She wouldlike to switch from warfarin to different agent.She's had no orthopnea, edema, syncope, palpitations, TIAs, amaurosis orclaudication.ALLERGIES:YENIFER RGIESAllergen Reactions- Amoxicillin Diarrhea- Metformin Diarrhea- Shellfish Diarrhea, VomitingCURRENT OUTPATIENT MEDICATIONS:warfarin (COUMADIN) 5 mg tablet 2.5 mg by mouth all other days or as directed.COMPOUNDED PRESCRIPTION INR standing orderFax to [phone]: atrial fiblisinopril (ZESTRIL, PRINIVIL) 20 mg tablet TAKE ONE ANDamp; ONE-HALF TABLETS BYMOUTH ONCE DAILYdoxycycline monohydrate 100 mg tablet Take 1 tablet by mouth twice daily.glimepiride (AMARYL) 4 mg tablet TAKE ONE TABLET BY MOUTH TWICE DAILYomeprazole (PRILOSEC) 20 mg capsule TAKE ONE CAPSULE BY MOUTH ONCE DAILYsitaGLIPtin (JANUVIA) 100 mg tablet Take 1 tablet by mouth once daily.insulin glargine (LANTUS SOLOSTAR) 100 unit/mL (3 mL) inpn Inject 14 Unitssubcutaneously as directedpravastatin (PRAVACHOL) 80 mg tablet Take 1 tablet by mouth once daily.verapamil SR (CALAN SR, ISOPTIN SR) 240 mg CR tablet TAKE ONE TABLET BY MOUTHONCE DAILYinsulin needles, DISPOSABLE, (PEN NEEDLE) 31 gauge x 5/16ANDquot; ndle Use asdirected once daily as directed DM: yes Insulin: yes DX: E11.9potassium chloride ER (KLOR-CON M20) 20 mEq tablet Take 1 tablet by mouth oncedaily.COMPOUNDED PRESCRIPTION Standing order inrFax to [phone]: A fibdiphenhydrAMINE (BENADRYL) 25 mg capsule Take 2 capsules by mouth every 6 hoursas needed. 50 mg at 1 hour prior to CTnystatin (MYCOSTATIN) cream Apply 1 application to affected area twice daily.aspirin, enteric coated (ECOTRIN LOW STRENGTH) 81 mg EC tablet Take 1 tablet bymouth once daily.fluticasone (FLONASE) 50 mcg/actuation nasal spray Use 2 Sprays in each nostrilonce daily. FOR ALLERGIC NASAL SX.cetirizine (ZYRTEC) 10 mg tablet Take 1 tablet by mouth once daily as needed(FOR HIVES).Azelastine HCl (OPTIVAR) 0.05 % ophthalmic solution Use 1 Drop in both eyestwice daily. 6-8 HOURS APARTbrimonidine (ALPHAGAN P) 0.15 % ophthalmic solution Use 1 Drop in both eyesthree times daily.pyridoxine hcl(VITAMIN B-6 100 MG TAB) Take one(1) tablet daily.COMPOUNDED PRESCRIPTION vitamin p95OTMWCIS + D 600 MG-200 UNIT TAB Take one(1) tablet daily.PHYSICAL EXAMINATION:VITAL SIGNS: BP 128/70 Pulse 68 Ht 5' 4ANDquot; (1.63m) Wt 165 lb 3.2 oz(74.9kg) BMI 28.34 kg/(m2).Chest: Clear to percussion and auscultation. Trachea is midline. Air entry isequal. Cardiac: Regular rhythm. S1 and S2 are normal. PMI is nondisplaced.There is a soft systolic ejection murmur. Carotids are brisk without bruits.JVP is less than 10 cm. Abdomen: Soft and nontender. There are no pulsatilemasses or bruits. No liver enlargement. Bowel sounds are active.Extremities: Trace edema. Pulses are intact and symmetrical.Recent labs reviewed. Renal function is normal. LDL was 82.Electronically Signed:Ashley Kenney 2017 11:56 [facility]: Silvana Muir MD 02/12/2018 11:58 AM SignedCheck on cost of Eliquis versus XareltoLIFESTYLE CHANGEA healthy lifestyle is the most important component of your overall treatmentplan. Please give serious thought to the following areas and commit to makinglong term changes.EAT A WHOLE FOOD, PLANT BASED DIETThe nutrition your body gets is more important than the medicine you take.What matters most is the overall way you eat. We encourage you to minimize theuse of animal products (which include dairy and all meats except fatty fish)and use whole, unprocessed plant foods to provide your protein, vitamins andother nutrients. We have a lot of information to share with you on this topic. We also hold Shared Medical Appointments, where you can come visit with in the company of other patients and spend over an hour talking aboutthe challenges of changing the way you eat. This is not a ANDquot;dietANDquot;.It is a way of life that you will keep with you.EXERCISE REGULARLYIt is not important to spend hours in the gym, lifting weights and perspiringheavily. A total of 2-3 hours per week of aerobic (causing you to bemoderately short of breath) exercise is sufficient to improve your health.Talk to us before you begin a new exercise program, if you have heart diseaseor experience shortness of breath or chest pain.REDUCE STRESSChronic emotional and physical stress leads to disease. Ways of reducingstress include meditation, visualization, prayer, yoga and other forms ofrelaxation therapy. Consistency is the arroyo. Find a technique that works foryou and do it every day.CULTIVATE RELATIONSHIPSLoneliness and isolation have a major negative impact on health. Seek outothers who can love, care for and nurture you. Avoid hurtful relationships.MAINTAIN IDEAL BODY WEIGHTThe best way to do this is to do all the things above. Our bodies naturallyfind the right weight if we keep moving and feed ourselves the right food. Ifyour BMI is greater than 25, we strongly recommend a referral to a weightmanagement program. Please speak to us or your family physician aboutavailable programs.AVOID NICOTINE IN ALL FORMSThis includes all tobacco products, whether chewed, smoked, vaped, or rubbed onthe skin. Smoking cessation programs, which can make use of tobaccosubstitutes, medications to suppress cravings and behavior management, areavailable. Please contact your family physician about programs in your area.Referring Provider: DANIEL MARCELO [[id number]]Allergies As of Date: 02/12/2018 Noted Allergy ReactionAMOXICILLIN 07/23/2007 6 - DiarrheaMETFORMIN 04/02/2007 6 - DiarrheaSHELLFISH 06/17/2008 6 - Diarrhea 11 - VomitingDate Reviewed: 02/12/2018Reviewed by: Lisa Stephenson - Fully AssessedReason for Visit: Follow Up [171]Primary Visit Diagnosis:ASHD (arteriosclerotic heart disease) [I25.10] Other Visit Diagnosis:PAF (paroxysmal atrial fibrillation) ([facility]) [I48.0]Order(s):nitroglycerin sublingual (NITROSTAT) 0.4 mg SL tabletDissolve 1 tablet under the tongue as needed for Chest Pain. If no pain relief call 911.Disp: 25 Bottle of 25Rfl: 3 MAGNESIUM BLD [SQMG1] Order #: [id number] FUTURE LIPID PANEL BASIC [SQLIPB] Order #: [id number] FUTUREPrescriptions as of 02/12/2018 Sig: WARFARIN 5 MG TABLET 2.5 mg by mouth all other day* COMPOUNDED PRESCRIPTION INR standing orderFax to 33* LISINOPRIL 20 MG TABLET TAKE ONE AND ONE-HALF TABLETS B* DOXYCYCLINE MONOHYDRATE 100 M* Take 1 tablet by mouth twice * GLIMEPIRIDE 4 MG TABLET TAKE ONE TABLET BY MOUTH TWIC* OMEPRAZOLE 20 MG CAPSULE,ISAIAH* TAKE ONE CAPSULE BY MOUTH ONC* SITAGLIPTIN 100 MG TABLET Take 1 tablet by mouth once d* INSULIN GLARGINE (U-100) 100 * Inject 14 Units subcutaneousl* PRAVASTATIN 80 MG TABLET Take 1 tablet by mouth once d* VERAPAMIL ER (SR) 240 MG TABL* TAKE ONE TABLET BY MOUTH ONCE* PEN NEEDLE, DIABETIC 31 GAUGE* Use as directed once daily as* POTASSIUM CHLORIDE ER 20 MEQ * Take 1 tablet by mouth once d* COMPOUNDED PRESCRIPTION Standing order inrFax to 33* DIPHENHYDRAMINE 25 MG CAPSULE Take 2 capsules by mouth ever* NYSTATIN 100,000 UNIT/GRAM TO* Apply 1 application to affect* ASPIRIN 81 MG TABLET,DELAYED * Take 1 tablet by mouth once d* FLUTICASONE 50 MCG/ACTUATION * Use 2 Sprays in each nostril * CETIRIZINE 10 MG TABLET Take 1 tablet by mouth once d* AZELASTINE 0.05 % EYE DROPS Use 1 Drop in both eyes twice* BRIMONIDINE 0.15 % EYE DROPS Use 1 Drop in both eyes three* VITAMIN B-6 100 MG TABLET Take one(1) tablet daily. COMPOUNDED PRESCRIPTION vitamin b12 CALCIUM + D 600 MG (1,500 MG)* Take one(1) tablet daily. NITROGLYCERIN 0.4 MG SUBLINGU* Dissolve 1 tablet under the t*Problem List As Of Date 02/12/2018 Noted Resolved TUBERCULIN TEST REACTION NO TBC [795.5] INVALID FOR* Essential hypertension [I10] INVALID FOR* Hyperlipidemia [E78.5] INVALID FOR* Type 2 diabetes mellitus without complications *INVALID FOR* More... OBESITY [E66.9] INVALID FOR* GE REFLUX (GASTROESOPHAGEAL) [K21.9] INVALID FOR* HIATAL HERNIA [K44.9] INVALID FOR*02/18/2011 GASTRITIS ANTRAL( W/O Hemorrhage) [K29.60] INVALID FOR*02/18/2011 Esophagitis, unspecified [K20.9] INVALID FOR*02/18/2011 H ZOSTER NERV SYST NEC [B02.29] INVALID FOR* Abnormal mammogram, unspecified [R92.8] INVALID FOR*02/18/2011 Coronary atherosclerosis [I25.10] INVALID FOR* CARDIAC DYSRHYTHMIAS NEC [I49.8] INVALID FOR* Osteopenia [M85.80] INVALID FOR* Breast cancer [C50.919] INVALID FOR* Paroxysmal SVT (supraventricular tachycardia) [* Osteoarthritis of right knee [M17.11] CTS (carpal tunnel syndrome) [G56.00] Constipation [K59.00] INVALID FOR* Unspecified constipation [K59.00] INVALID FOR* Benign neoplasm of colon [D12.6] INVALID FOR* Diverticulitis [K57.92] INVALID FOR* half-way current use of anticoagulant [Z79.01]INVALID FOR* Persistent atrial fibrillation (HCC) [I48.1] INVALID FOR* Other instructions from your clinician: Check on cost of Eliquis versus Xarelto LIFESTYLE CHANGE A healthy lifestyle is the most important component of your overall treatment plan. Please give serious thought to the following areas and commit to making termite treater changes. EAT A WHOLE FOOD, PLANT BASED DIET The nutrition your body gets is more important than the medicine you take. What matters most is the overall way you eat. We encourage you to minimize the use of animal products (which include dairy and all meats except fatty fish) and use whole, unprocessed plant foods to provide your protein, vitamins and other nutrients. We have a lot of information to share with you on this topic. We also hold Shared Medical Appointments, where you can come visit with Dr. Marcelo in the company of other patients and spend over an hour talking about the challenges of changing the way you eat. This is not a diet. It is a way of life that you will keep with you. EXERCISE REGULARLY It is not important to spend hours in the gym, lifting weights and perspiring heavily. A total of 2-3 hours per week of aerobic (causing you to be moderately short of breath) exercise is sufficient to improve your health. Talk to us before you begin a new exercise program, if you have heart disease or experience shortness of breath or chest pain. REDUCE STRESS Chronic emotional and physical stress leads to disease. Ways of reducing stress include meditation, visualization, prayer, yoga and other forms of relaxation therapy. Consistency is the arroyo. Find a technique that works for you and do it every day. CULTIVATE RELATIONSHIPS Loneliness and isolation have a major negative impact on health. Seek out others who can love, care for and nurture you. Avoid hurtful relationships. MAINTAIN IDEAL BODY WEIGHT The best way to do this is to do all the things above. Our bodies naturally find the right weight if we keep moving and feed ourselves the right food. If your BMI is greater than 25, we strongly recommend a referral to a weight management program. Please speak to us or your family physician about available programs. AVOID NICOTINE IN ALL FORMS This includes all tobacco products, whether chewed, smoked, vaped, or rubbed on the skin. Smoking cessation programs, which can make use of tobacco substitutes, medications to suppress cravings and behavior management, are available. Please contact your family physician about programs in your area.Prescriptions ordered this encounter Disp Refills Start End NITROGLYCERIN 0.4 MG SUBLINGUAL TABL* 25 B* 3 02/12/2018 Route: SUBLINGUAL Sig: Dissolve 1 tablet under the tongue as needed for Chest Pain. If no pain relief call 911. Status:Closed by DANIEL MARCELO MD on 02/13/18 [facility] PROGRESSon 02-12-2018 Protein mass conc HNO ID: [id number] thor: Daniel Arreola: (none)Author Type: PhysicianType: Progress NotesFiled: 02/13/2018 3:18 PMNote Text:PERTINENT CARDIAC HISTORYASHD - PCI RCA and LAD, 2009PAFHTNHLDMSVTMobitz I 2nd degree AVBADHERENCE TO GUIDELINESACE-I or ARB for HF with prior LVEF<40 (NQF 0081) - N/AASA or Plavix for ASHD (NQF 0067) - metBeta librado for ASHD with prior MS or prior LVEF<40 (NQF 0070) - N/ABeta librado for HF with prior LVEF<40 (NQF 0083) - N/AACE-I or ARB for ASHD with DM or prior LVEF<40 (NQF 0066) - metStatin therapy for ASHD or FHL or DM - metBMI documented and plan if >25 (NQF 0421) - lifestyle recommendation formTobacco use screening and referral (NQF 0028) - lifestyle recommendationformRecommendat ion for whole food, plant based diet - lifestyle recommendationformCLINICAL IMPRESSION/PLAN:Kellie Dozier is doing well. Her coronary disease is stable. She's hadno need for nitroglycerin.She would like to discontinue warfarin. I've asked her to check on cost ofEliquis versus Xarelto and let me know which one she wishes. We will thenmake the change.She will continue her current medication. I will see her in 8 months or asneeded.Written and verbal health teaching given to patient, patient verbalizesunderstanding and agrees with treatment plan.DIAGNOSIS FOR VISIT:PAFASHDHISTORY OF PRESENT ILLNESSKellie Dozier returns for follow-up of multiple cardiac issues, asnoted above.She reports stable exercise tolerance. She's had no chest discomfort. Shewould like to switch from warfarin to different agent.She's had no orthopnea, edema, syncope, palpitations, TIAs, amaurosis orclaudication.ALLERGIES:YENIFER RGIESAllergen Reactions- Amoxicillin Diarrhea- Metformin Diarrhea- Shellfish Diarrhea, VomitingCURRENT OUTPATIENT MEDICATIONS:warfarin (COUMADIN) 5 mg tablet 2.5 mg by mouth all other days or asdirected.COMPOUNDED PRESCRIPTION INR standing orderFax to [phone]: atrialfiblisinopril (ZESTRIL, PRINIVIL) 20 mg tablet TAKE ONE AND ONE-HALF TABLETS BYMOUTH ONCE DAILYdoxycycline monohydrate 100 mg tablet Take 1 tablet by mouth twice daily.glimepiride (AMARYL) 4 mg tablet TAKE ONE TABLET BY MOUTH TWICE DAILYomeprazole (PRILOSEC) 20 mg capsule TAKE ONE CAPSULE BY MOUTH ONCE DAILYsitaGLIPtin (JANUVIA) 100 mg tablet Take 1 tablet by mouth once daily.insulin glargine (LANTUS SOLOSTAR) 100 unit/mL (3 mL) inpn Inject 14 Unitssubcutaneously as directedpravastatin (PRAVACHOL) 80 mg tablet Take 1 tablet by mouth once daily.verapamil SR (CALAN SR, ISOPTIN SR) 240 mg CR tablet TAKE ONE TABLET BYMOUTH ONCE DAILYinsulin needles, DISPOSABLE, (PEN NEEDLE) 31 gauge x 5/16 ndle Use asdirected once daily as directed DM: yes Insulin: yes DX: E11.9potassium chloride ER (KLOR-CON M20) 20 mEq tablet Take 1 tablet by mouthonce daily.COMPOUNDED PRESCRIPTION Standing order inrFax to [phone]: A fibdiphenhydrAMINE (BENADRYL) 25 mg capsule Take 2 capsules by mouth every 6hours as needed. 50 mg at 1 hour prior to CTnystatin (MYCOSTATIN) cream Apply 1 application to affected area twicedaily.aspirin, enteric coated (ECOTRIN LOW STRENGTH) 81 mg EC tablet Take 1tablet by mouth once daily.fluticasone (FLONASE) 50 mcg/actuation nasal spray Use 2 Sprays in eachnostril once daily. FOR ALLERGIC NASAL SX.cetirizine (ZYRTEC) 10 mg tablet Take 1 tablet by mouth once daily asneeded (FOR HIVES).Azelastine HCl (OPTIVAR) 0.05 % ophthalmic solution Use 1 Drop in botheyes twice daily. 6-8 HOURS APARTbrimonidine (ALPHAGAN P) 0.15 % ophthalmic solution Use 1 Drop in botheyes three times daily.pyridoxine hcl(VITAMIN B-6 100 MG TAB) Take one(1) tablet daily.COMPOUNDED PRESCRIPTION vitamin [id number] + D 600 MG-200 UNIT TAB Take one(1) tablet daily.PHYSICAL EXAMINATION:VITAL SIGNS: BP 128/70 Pulse 68 Ht 5' 4 (1.63m) Wt 165 lb 3.2 oz(74.9kg) BMI 28.34 kg/(m2).Chest: Clear to percussion and auscultation. Trachea is midline. Airentry is equal. Cardiac: Regular rhythm. S1 and S2 are normal. PMI isnondisplaced. There is a soft systolic ejection murmur. Carotids arebrisk without bruits. JVP is less than 10 cm. Abdomen: Soft andnontender. There are no pulsatile masses or bruits. No liverenlargement. Bowel sounds are active. Extremities: Trace edema. Pulsesare intact and symmetrical.Recent labs reviewed. Renal function is normal. LDL was 82.Electronically Signed:Ashley Kenney 2017 11:56 [facility]: Santo Love MD [facility] Vital Signs Date Time Vital Sign Value Performing Clinician Facility 05-29-2025 11:40-0400 Diastolic blood pressure 69 mm[Hg] Juliana Davis APRN.OBSTETRICIAN/GYNECOLOGIST Work Phone: [facility] Comment on above: Average: Kaitlin BP 05-29-2025 11:40-0400 Heart rate 66 /min Juliana Davis APRN.OBSTETRICIAN/GYNECOLOGIST Work Phone: [facility] 05-29-2025 11:40-0400 Systolic blood pressure 124 mm[Hg] Juliana Davis APRN.OBSTETRICIAN/GYNECOLOGIST Work Phone: [facility] Comment on above: Average: Kaitlin BP 05-29-2025 11:34-0400 Body mass index (BMI) [Ratio] 26.61 kg/m2 Juliana Davis APRN.OBSTETRICIAN/GYNECOLOGIST Work Phone: [facility] 05-29-2025 11:34-0400 Body weight 70.31 kg Juliana Suzanneparris FORMING MACHINE UPKEEP MECHANIC HELPER.OBSTETRICIAN/GYNECOLOGIST Work Phone: [facility] 05-29-2025 11:34-0400 SaO2% (BldA) [Mass fraction] 96 % Juliana Davis FORMING MACHINE UPKEEP MECHANIC HELPER.OBSTETRICIAN/GYNECOLOGIST Work Phone: [facility] 05-09-2025 10:52-0400 Diastolic blood pressure 76 mm[Hg] Zari Sorenson MD Work Phone: [facility] 05-09-2025 10:52-0400 Heart rate 71 /min Zari Sorenson MD Work Phone: [facility] 05-09-2025 10:52-0400 Respiratory rate 15 /min Zari Sorenson MD Work Phone: [facility] 05-09-2025 10:52-0400 SaO2% (BldA) [Mass fraction] 96 % Zari Sorenson MD Work Phone: [facility] 05-09-2025 10:52-0400 Systolic blood pressure 158 mm[Hg] Zari Sorenson MD Work Phone: [facility] 05-09-2025 09:24-0400 Body mass index (BMI) [Ratio] 26.68 kg/m2 Zari Sorenson MD Work Phone: [facility] 05-09-2025 09:24-0400 Body temperature 97.9 [degF] Zari Sorenson MD Work Phone: [facility] 05-09-2025 09:24-0400 Body weight 70.5 kg Zari Sorenson MD Work Phone: [facility] 05-04-2025 10:29-0400 Body mass index (BMI) [Ratio] 26.67 kg/m2 Elizabeth Ortega FORMING MACHINE UPKEEP MECHANIC HELPER.OBSTETRICIAN/GYNECOLOGIST Work Phone: [facility] 05-04-2025 10:29-0400 Body weight 70.49 kg Elizabeth Ortega FORMING MACHINE UPKEEP MECHANIC HELPER.OBSTETRICIAN/GYNECOLOGIST Work Phone: [facility] 05-04-2025 10:29-0400 Diastolic blood pressure 70 mm[Hg] Elizabeth Reilly FORMING MACHINE UPKEEP MECHANIC HELPER.OBSTETRICIAN/GYNECOLOGIST Work Phone: [facility] 05-04-2025 10:29-0400 Heart rate 62 /min Elizabeth Reilly FORMING MACHINE UPKEEP MECHANIC HELPER.OBSTETRICIAN/GYNECOLOGIST Work Phone: [facility] 05-04-2025 10:29-0400 Respiratory rate 14 /min Elizabeth Reilly FORMING MACHINE UPKEEP MECHANIC HELPER.OBSTETRICIAN/GYNECOLOGIST Work Phone: [facility] 05-04-2025 10:29-0400 SaO2% (BldA) [Mass fraction] 98 % Elizabeth Reilly FORMING MACHINE UPKEEP MECHANIC HELPER.OBSTETRICIAN/GYNECOLOGIST Work Phone: [facility] 05-04-2025 10:29-0400 Systolic blood pressure 146 mm[Hg] Elizabeth Reilly FORMING MACHINE UPKEEP MECHANIC HELPER.OBSTETRICIAN/GYNECOLOGIST Work Phone: [facility] 05-01-2025 14:27-0400 Diastolic blood pressure 65 mm[Hg] Raisa Haagen FORMING MACHINE UPKEEP MECHANIC HELPER.OBSTETRICIAN/GYNECOLOGIST Work Phone: [facility] Comment on above: KAITLIN BP 05-01-2025 14:27-0400 Heart rate 66 /min Arisa Haagen FORMING MACHINE UPKEEP MECHANIC HELPER.OBSTETRICIAN/GYNECOLOGIST Work Phone: [facility] 05-01-2025 14:27-0400 Systolic blood pressure 179 mm[Hg] Raisa Haagen FORMING MACHINE UPKEEP MECHANIC HELPER.OBSTETRICIAN/GYNECOLOGIST Work Phone: [facility] Comment on above: KAITLIN BP 05-01-2025 13:44-0400 Body mass index (BMI) [Ratio] 26.78 kg/m2 Raisa Haagen FORMING MACHINE UPKEEP MECHANIC HELPER.OBSTETRICIAN/GYNECOLOGIST Work Phone: [facility] 05-01-2025 13:44-0400 Body weight 70.76 kg Raisa Haagen FORMING MACHINE UPKEEP MECHANIC HELPER.OBSTETRICIAN/GYNECOLOGIST Work Phone: [facility] 05-01-2025 13:44-0400 Respiratory rate 16 /min Raisa Haagen FORMING MACHINE UPKEEP MECHANIC HELPER.OBSTETRICIAN/GYNECOLOGIST Work Phone: [facility] 05-01-2025 13:44-0400 SaO2% (BldA) [Mass fraction] 95 % Raisa Haagen FORMING MACHINE UPKEEP MECHANIC HELPER.OBSTETRICIAN/GYNECOLOGIST Work Phone: [facility] 03-07-2025 10:59-0400 Diastolic blood pressure 62 mm[Hg] Raisa Haagen FORMING MACHINE UPKEEP MECHANIC HELPER.OBSTETRICIAN/GYNECOLOGIST Work Phone: [facility] Comment on above: KAITLIN BP 03-07-2025 10:59-0400 Heart rate 55 /min Raisa Haagen FORMING MACHINE UPKEEP MECHANIC HELPER.OBSTETRICIAN/GYNECOLOGIST Work Phone: [facility] 03-07-2025 10:59-0400 Systolic blood pressure 133 mm[Hg] Raisa Haagen FORMING MACHINE UPKEEP MECHANIC HELPER.OBSTETRICIAN/GYNECOLOGIST Work Phone: [facility] Comment on above: KAITLIN BP 03-07-2025 10:47-0400 Respiratory rate 16 /min Raisa Haagen FORMING MACHINE UPKEEP MECHANIC HELPER.OBSTETRICIAN/GYNECOLOGIST Work Phone: [facility] 03-07-2025 10:47-0400 SaO2% (BldA) [Mass fraction] 94 % Raisa Haagen FORMING MACHINE UPKEEP MECHANIC HELPER.OBSTETRICIAN/GYNECOLOGIST Work Phone: [facility] 02-07-2025 11:23-0400 Diastolic blood pressure 67 mm[Hg] Raisa Haagen FORMING MACHINE UPKEEP MECHANIC HELPER.OBSTETRICIAN/GYNECOLOGIST Work Phone: [facility] Comment on above: KAITLIN BP 02-07-2025 11:23-0400 Heart rate 64 /min Raisa Haagen FORMING MACHINE UPKEEP MECHANIC HELPER.OBSTETRICIAN/GYNECOLOGIST Work Phone: [facility] 02-07-2025 11:23-0400 Systolic blood pressure 166 mm[Hg] Raisa Haagen FORMING MACHINE UPKEEP MECHANIC HELPER.OBSTETRICIAN/GYNECOLOGIST Work Phone: [facility] Comment on above: KAITLIN BP 02-07-2025 10:49-0400 Body mass index (BMI) [Ratio] 26.43 kg/m2 Raisa Haagen FORMING MACHINE UPKEEP MECHANIC HELPER.OBSTETRICIAN/GYNECOLOGIST Work Phone: [facility] 02-07-2025 10:49-0400 Body weight 69.85 kg Raisa Haagen FORMING MACHINE UPKEEP MECHANIC HELPER.OBSTETRICIAN/GYNECOLOGIST Work Phone: [facility] 02-07-2025 10:49-0400 Respiratory rate 16 /min Raisa Haagen FORMING MACHINE UPKEEP MECHANIC HELPER.OBSTETRICIAN/GYNECOLOGIST Work Phone: [facility] 02-07-2025 10:49-0400 SaO2% (BldA) [Mass fraction] 92 % Raisa Haagen FORMING MACHINE UPKEEP MECHANIC HELPER.OBSTETRICIAN/GYNECOLOGIST Work Phone: [facility] 12-13-2024 10:56-0500 Diastolic blood pressure 70 mm[Hg] Raisa Haagen FORMING MACHINE UPKEEP MECHANIC HELPER.OBSTETRICIAN/GYNECOLOGIST Work Phone: [facility] 12-13-2024 10:56-0500 Heart rate 55 /min Raisa Haagen FORMING MACHINE UPKEEP MECHANIC HELPER.OBSTETRICIAN/GYNECOLOGIST Work Phone: [facility] 12-13-2024 10:56-0500 Respiratory rate 16 /min Raisa Haagen FORMING MACHINE UPKEEP MECHANIC HELPER.OBSTETRICIAN/GYNECOLOGIST Work Phone: [facility] 12-13-2024 10:56-0500 SaO2% (BldA) [Mass fraction] 94 % Raisa Haagen FORMING MACHINE UPKEEP MECHANIC HELPER.OBSTETRICIAN/GYNECOLOGIST Work Phone: [facility] 12-13-2024 10:56-0500 Systolic blood pressure 128 mm[Hg] Raisa Haagen FORMING MACHINE UPKEEP MECHANIC HELPER.OBSTETRICIAN/GYNECOLOGIST Work Phone: [facility] 11-29-2024 10:43-0500 Body mass index (BMI) [Ratio] 25.23 kg/m2 Leonela Bear MD Work Phone: [facility] 11-29-2024 10:43-0500 Body weight 66.68 kg Leonela Bear MD Work Phone: [facility] 11-29-2024 10:43-0500 Diastolic blood pressure 62 mm[Hg] Leonela Bear MD Work Phone: [facility] 11-29-2024 10:43-0500 Heart rate 75 /min Leonela Bear MD Work Phone: [facility] 11-29-2024 10:43-0500 Respiratory rate 17 /min Leonela Bear MD Work Phone: [facility] 11-29-2024 10:43-0500 SaO2% (BldA) [Mass fraction] 97 % Leonela Bear MD Work Phone: [facility] 11-29-2024 10:43-0500 Systolic blood pressure 108 mm[Hg] Leonela Bear MD Work Phone: [facility] 11-19-2024 10:03-0500 Diastolic blood pressure 84 mm[Hg] Santo Love MD Work Phone: [facility] 11-19-2024 10:03-0500 Systolic blood pressure 170 mm[Hg] Santo Love MD Work Phone: [facility] 11-19-2024 09:34-0500 Body height 162.6 cm Santo Love MD Work Phone: [facility] 11-19-2024 09:34-0500 Body mass index (BMI) [Ratio] 25.23 kg/m2 Santo Love MD Work Phone: [facility] 11-19-2024 09:34-0500 Body weight 66.68 kg Santo Love MD Work Phone: [facility] 11-19-2024 09:34-0500 Heart rate 67 /min Santo Love MD Work Phone: [facility] 07-13-2024 11:28-0400 Body mass index (BMI) [Ratio] 24.03 kg/m2 Santo Love MD Work Phone: [facility] 07-13-2024 11:28-0400 Body weight 63.5 kg Santo Love MD Work Phone: [facility] 07-13-2024 11:28-0400 Diastolic blood pressure 62 mm[Hg] Santo Love MD Work Phone: [facility] 07-13-2024 11:28-0400 Heart rate 52 /min Santo Love MD Work Phone: [facility] 07-13-2024 11:28-0400 SaO2% (BldA) [Mass fraction] 97 % Santo Love MD Work Phone: [facility] 07-13-2024 11:28-0400 Systolic blood pressure 104 mm[Hg] Santo Love MD Work Phone: [facility] 06-20-2024 11:07-0400 Diastolic blood pressure 70 mm[Hg] Juliana Suppan FORMING MACHINE UPKEEP MECHANIC HELPER.OBSTETRICIAN/GYNECOLOGIST Work Phone: [facility] 06-20-2024 11:07-0400 Systolic blood pressure 120 mm[Hg] Juliana Suppan FORMING MACHINE UPKEEP MECHANIC HELPER.OBSTETRICIAN/GYNECOLOGIST Work Phone: [facility] 06-20-2024 10:46-0400 Body mass index (BMI) [Ratio] 23.86 kg/m2 Juliana Suppan FORMING MACHINE UPKEEP MECHANIC HELPER.OBSTETRICIAN/GYNECOLOGIST Work Phone: [facility] 06-20-2024 10:46-0400 Body weight 63.05 kg Juliana Suppan FORMING MACHINE UPKEEP MECHANIC HELPER.OBSTETRICIAN/GYNECOLOGIST Work Phone: [facility] 06-20-2024 10:46-0400 Heart rate 60 /min Juliana Suppan FORMING MACHINE UPKEEP MECHANIC HELPER.OBSTETRICIAN/GYNECOLOGIST Work Phone: [facility] 06-20-2024 10:46-0400 Respiratory rate 16 /min Juliana Suppan FORMING MACHINE UPKEEP MECHANIC HELPER.OBSTETRICIAN/GYNECOLOGIST Work Phone: [facility] 06-20-2024 10:46-0400 SaO2% (BldA) [Mass fraction] 97 % Juliana Suppan FORMING MACHINE UPKEEP MECHANIC HELPER.OBSTETRICIAN/GYNECOLOGIST Work Phone: [facility] 05-12-2024 10:07-0400 Body mass index (BMI) [Ratio] 23.52 kg/m2 Juliana Suppan FORMING MACHINE UPKEEP MECHANIC HELPER.OBSTETRICIAN/GYNECOLOGIST Work Phone: [facility] 05-12-2024 10:07-0400 Body weight 62.14 kg Juliana Suppan FORMING MACHINE UPKEEP MECHANIC HELPER.OBSTETRICIAN/GYNECOLOGIST Work Phone: [facility] 05-12-2024 10:07-0400 Diastolic blood pressure 56 mm[Hg] Juliana Suppan FORMING MACHINE UPKEEP MECHANIC HELPER.OBSTETRICIAN/GYNECOLOGIST Work Phone: [facility] 05-12-2024 10:07-0400 Heart rate 72 /min Juliana Suppan FORMING MACHINE UPKEEP MECHANIC HELPER.OBSTETRICIAN/GYNECOLOGIST Work Phone: [facility] 05-12-2024 10:07-0400 Respiratory rate 16 /min Juliana Davis FORMING MACHINE UPKEEP MECHANIC HELPER.OBSTETRICIAN/GYNECOLOGIST Work Phone: [facility] 05-12-2024 10:07-0400 SaO2% (BldA) [Mass fraction] 96 % Juliana Davis FORMING MACHINE UPKEEP MECHANIC HELPER.OBSTETRICIAN/GYNECOLOGIST Work Phone: [facility] 05-12-2024 10:07-0400 Systolic blood pressure 142 mm[Hg] Juliana Palaciosparris FORMING MACHINE UPKEEP MECHANIC HELPER.OBSTETRICIAN/GYNECOLOGIST Work Phone: [facility] 04-12-2024 15:21-0400 Body height 162.6 cm Santo Love MD Work Phone: [facility] 04-12-2024 15:21-0400 Body mass index (BMI) [Ratio] 23.52 kg/m2 Santo Love MD Work Phone: [facility] 04-12-2024 15:21-0400 Body weight 62.14 kg Santo Love MD Work Phone: [facility] 04-12-2024 15:21-0400 Diastolic blood pressure 74 mm[Hg] Santo Love MD Work Phone: [facility] 04-12-2024 15:21-0400 Heart rate 69 /min Santo Love MD Work Phone: [facility] 04-12-2024 15:21-0400 SaO2% (BldA) [Mass fraction] 98 % Santo Love MD Work Phone: [facility] 04-12-2024 15:21-0400 Systolic blood pressure 174 mm[Hg] Santo Love MD Work Phone: [facility] 02-22-2024 08:06-0400 Body mass index (BMI) [Ratio] 23.34 kg/m2 Leonela Bear MD Work Phone: [facility] 02-22-2024 08:06-0400 Body temperature 98.29 [degF] Leonela Bear MD Work Phone: [facility] 02-22-2024 08:06-0400 Body weight 61.69 kg Leonela Bear MD Work Phone: [facility] 02-22-2024 08:06-0400 Diastolic blood pressure 64 mm[Hg] Leonela Bear MD Work Phone: [facility] 02-22-2024 08:06-0400 Heart rate 52 /min Leonela Bear MD Work Phone: [facility] 02-22-2024 08:06-0400 SaO2% (BldA) [Mass fraction] 94 % Leonela Bear MD Work Phone: [facility] 02-22-2024 08:06-0400 Systolic blood pressure 140 mm[Hg] Leonela Bear MD Work Phone: [facility] 02-08-2024 10:59-0400 Diastolic blood pressure 70 mm[Hg] NA Rodriguez PA-C Work Phone: [facility] 02-08-2024 10:59-0400 Heart rate 52 /min NA Rodriguez PA-C Work Phone: [facility] 02-08-2024 10:59-0400 Systolic blood pressure 119 mm[Hg] NA Rodriguez PA-C Work Phone: [facility] 02-08-2024 10:50-0400 Body weight 61.69 kg NA Rodriguez PA-C Work Phone: [facility] 02-08-2024 10:50-0400 Respiratory rate 16 /min NA Rodriguez PA-C Work Phone: [facility] 02-08-2024 10:50-0400 SaO2% (BldA) [Mass fraction] 98 % NA Rodriguez PA-C Work Phone: [facility] 02-04-2024 07:15-0400 Body temperature 97.6 [degF] Dr. Santo Love Work Phone: [facility] 02-04-2024 07:15-0400 Diastolic blood pressure 58 mm[Hg] Dr. Santo Love Work Phone: [facility] 02-04-2024 07:15-0400 Heart rate 75 /min Dr. Santo Love Work Phone: [facility] 02-04-2024 07:15-0400 Respiratory rate 16 /min Dr. Santo Love Work Phone: [facility] 02-04-2024 07:15-0400 SaO2% (BldA) [Mass fraction] 94 % Dr. Santo Love Work Phone: [facility] 02-04-2024 07:15-0400 Systolic blood pressure 110 mm[Hg] Dr. Santo Love Work Phone: [facility] 02-04-2024 05:43-0400 Body height 162.[address] Santo Love Work Phone: [facility] 02-04-2024 05:43-0400 Body mass index (BMI) [Ratio] 23.4 kg/m2 Dr. Santo Love Work Phone: [facility] 02-04-2024 05:43-0400 Body weight [address] Santo Love Work Phone: [facility] 02-02-2024 14:39-0400 Body height 162.6 cm Zac Duncan PA-C Work Phone: [facility] 02-02-2024 14:39-0400 Body temperature 98.4 [degF] Zac Duncan PA-C Work Phone: [facility] 02-02-2024 14:39-0400 Body weight 62.78 kg Zac Duncan PA-C Work Phone: [facility] 02-02-2024 14:39-0400 Diastolic blood pressure 76 mm[Hg] Zac Duncan PA-C Work Phone: [facility] 02-02-2024 14:39-0400 Heart rate 80 /min Zac Duncan PA-C Work Phone: [facility] 02-02-2024 14:39-0400 Respiratory rate 12 /min Zac Duncan PA-C Work Phone: [facility] 02-02-2024 14:39-0400 SaO2% (BldA) [Mass fraction] 98 % Zac Duncan PA-C Work Phone: [facility] 02-02-2024 14:39-0400 Systolic blood pressure 180 mm[Hg] Zac Duncan PA-C Work Phone: [facility] 01-06-2024 08:47-0500 Body weight 62.6 kg Santo Love MD Work Phone: [facility] 01-06-2024 08:47-0500 Diastolic blood pressure 82 mm[Hg] Santo Love MD Work Phone: [facility] 01-06-2024 08:47-0500 Heart rate 75 /min Santo Love MD Work Phone: [facility] 01-06-2024 08:47-0500 SaO2% (BldA) [Mass fraction] 97 % Santo Love MD Work Phone: [facility] 01-06-2024 08:47-0500 Systolic blood pressure 172 mm[Hg] Santo Love MD Work Phone: [facility] 12-22-2023 11:42-0500 Body temperature 98.2 [degF] Dr. Santo Love Work Phone: [facility] 12-22-2023 11:42-0500 Diastolic blood pressure 65 mm[Hg] Dr. Santo Love Work Phone: [facility] 12-22-2023 11:42-0500 Heart rate 82 /min Dr. Santo Love Work Phone: [facility] 12-22-2023 11:42-0500 Respiratory rate 17 /min Dr. Santo Love Work Phone: [facility] 12-22-2023 11:42-0500 SaO2% (BldA) [Mass fraction] 95 % Dr. Santo Love Work Phone: [facility] 12-22-2023 11:42-0500 Systolic blood pressure 152 mm[Hg] Dr. Santo Love Work Phone: 7(923)056-000458 [place] [address] 12-21-2023 14:06-0500 Body height 162.[address] Santo Love Work Phone: 5(824)927-480558 [place] [address] 12-21-2023 14:06-0500 Body weight 62.[address] Santo Love Work Phone: 0(838)946-902858 [place] [address] 12-15-2023 13:59-0500 Body mass index (BMI) [Ratio] 23.6 kg/m2 Dr. Santo Love Work Phone: 3(159)135-347058 [place] [address] 12-15-2023 07:14-0500 Diastolic blood pressure 59 mm[Hg] Dr. Santo Love Work Phone: 5(366)369-566158 [place] [address] 12-15-2023 07:14-0500 Heart rate 108 /min Dr. Santo Love Work Phone: 9(947)103-352358 [place] [address] 12-15-2023 07:14-0500 Respiratory rate 16 /min Dr. Santo Love Work Phone: 8(709)619-571158 [place] [address] 12-15-2023 07:14-0500 SaO2% (BldA) [Mass fraction] 98 % Dr. Santo Love Work Phone: 8(167)244-774958 [place] [address] 12-15-2023 07:14-0500 Systolic blood pressure 132 mm[Hg] Dr. Santo Love Work Phone: 1(480)202-552158 [place] [address] 12-15-2023 05:40-0500 Body height 162.[address] Santo Love Work Phone: 8(314)009-216158 [place] [address] 12-15-2023 05:40-0500 Body mass index (BMI) [Ratio] 26.1 kg/m2 Dr. Santo Love Work Phone: 3(882)814-199858 [place] [address] 12-15-2023 05:40-0500 Body temperature 97.2 [degF] Dr. Santo Love Work Phone: 1(359)718-945258 [place] [address] 12-15-2023 05:40-0500 Body weight [address] Santo Love Work Phone: 0(691)848-425778 [place] [address] 12-13-2023 15:30-0500 Heart rate 80 /min Dr. Santo Love Work Phone: 8(409)229-876458 [place] [address] 12-13-2023 14:43-0500 Body temperature 97.6 [degF] Dr. Santo Love Work Phone: 0(617)524-920058 [place] [address] 12-13-2023 14:43-0500 Diastolic blood pressure 51 mm[Hg] Dr. Santo Love Work Phone: 2(323)156-749658 [place] [address] 12-13-2023 14:43-0500 Respiratory rate 18 /min Dr. Santo Love Work Phone: 6(930)192-165958 [place] [address] 12-13-2023 14:43-0500 SaO2% (BldA) [Mass fraction] 99 % Dr. Santo Love Work Phone: 7(717)425-549378 [place] [address] 12-13-2023 14:43-0500 Systolic blood pressure 116 mm[Hg] Dr. Santo Love Work Phone: 1(315)330-177258 [place] [address] 12-12-2023 11:23-0500 Body height 162.[address] Santo Love Work Phone: 2(969)042-183958 [place] [address] 12-12-2023 11:23-0500 Body mass index (BMI) [Ratio] 24.3 kg/m2 Dr. Santo Love Work Phone: 2(483)224-061278 [place] [address] 12-12-2023 11:23-0500 Body weight 64.[address] Santo Love Work Phone: 2(334)728-306078 [place] [address] 12-11-2023 11:59-0500 Diastolic blood pressure 60 mm[Hg] [facility] 12-11-2023 11:59-0500 Systolic blood pressure 151 mm[Hg] [facility] 12-11-2023 11:58-0500 Heart rate 76 /min [facility] 12-11-2023 11:58-0500 Respiratory rate 16 /min [facility] 12-11-2023 07:46-0500 Body height 162.56 cm [facility] 12-11-2023 07:46-0500 Body temperature 98.1 [degF] [facility] 12-11-2023 07:46-0500 SaO2% (BldA) [Mass fraction] 99 % [facility] 05-07-2023 10:43-0400 Body height 162.6 cm Santo Love MD Work Phone: [facility] 05-07-2023 10:43-0400 Body weight 65.41 kg Santo Love MD Work Phone: [facility] 05-07-2023 10:43-0400 Diastolic blood pressure 52 mm[Hg] Santo Love MD Work Phone: [facility] 05-07-2023 10:43-0400 Heart rate 65 /min Santo Love MD Work Phone: [facility] 05-07-2023 10:43-0400 SaO2% (BldA) [Mass fraction] 97 % Santo Love MD Work Phone: [facility] 05-07-2023 10:43-0400 Systolic blood pressure 106 mm[Hg] Santo Love MD Work Phone: [facility] 01-29-2023 10:19-0400 Body weight 64.41 kg Santo Love MD Work Phone: [facility] 01-29-2023 10:19-0400 Diastolic blood pressure 62 mm[Hg] Santo Love MD Work Phone: [facility] 01-29-2023 10:19-0400 Heart rate 70 /min Santo Love MD Work Phone: [facility] 01-29-2023 10:19-0400 SaO2% (BldA) [Mass fraction] 97 % Santo Love MD Work Phone: [facility] 01-29-2023 10:19-0400 Systolic blood pressure 112 mm[Hg] Santo Love MD Work Phone: [facility] 01-01-2023 10:18-0500 Body temperature 97.2 [degF] SAM Rodriguez PA-C Work Phone: [facility] 01-01-2023 10:18-0500 Body weight 63.5 kg NA Rodriguez PA-C Work Phone: [facility] 01-01-2023 10:18-0500 Diastolic blood pressure 82 mm[Hg] NA Rodriguez PA-C Work Phone: [facility] 01-01-2023 10:18-0500 Heart rate 76 /min NA Rodriguez PA-C Work Phone: [facility] 01-01-2023 10:18-0500 Respiratory rate 16 /min NA Rodriguez PA-C Work Phone: [facility] 01-01-2023 10:18-0500 SaO2% (BldA) [Mass fraction] 96 % NA Rodriguez PA-C Work Phone: [facility] 01-01-2023 10:18-0500 Systolic blood pressure 166 mm[Hg] NA Rodriguez PA-C Work Phone: [facility] 11-27-2022 09:01-0500 Diastolic blood pressure 71 mm[Hg] Mi Nurse Work Phone: [facility] 11-27-2022 09:01-0500 Heart rate 71 /min Mi Nurse Work Phone: [facility] 11-27-2022 09:01-0500 Systolic blood pressure 164 mm[Hg] Mi Nurse Work Phone: [facility] 10-02-2022 09:14-0500 Body weight 62.14 kg Santo Love MD Work Phone: [facility] 10-02-2022 09:14-0500 Diastolic blood pressure 72 mm[Hg] Santo Love MD Work Phone: [facility] 10-02-2022 09:14-0500 Heart rate 74 /min Santo Love MD Work Phone: [facility] 10-02-2022 09:14-0500 SaO2% (BldA) [Mass fraction] 99 % Santo Love MD Work Phone: [facility] 10-02-2022 09:14-0500 Systolic blood pressure 126 mm[Hg] Santo Love MD Work Phone: [facility] 07-17-2022 09:43-0400 Diastolic blood pressure 68 mm[Hg] Mi Nurse Work Phone: [facility] 07-17-2022 09:43-0400 Heart rate 74 /min Mi Nurse Work Phone: [facility] 07-17-2022 09:43-0400 Systolic blood pressure 113 mm[Hg] Mi Nurse Work Phone: [facility] 06-27-2022 11:50-0400 SaO2% (BldA) [Mass fraction] 99 % NA Rodriguez PA-C Work Phone: [facility] 06-27-2022 11:32-0400 Diastolic blood pressure 40 mm[Hg] NA Rodriguez PA-C Work Phone: [facility] 06-27-2022 11:32-0400 Systolic blood pressure 78 mm[Hg] NA Rodriguez PA-C Work Phone: [facility] 06-27-2022 11:07-0400 Body weight 60.33 kg NA Rodriguez PA-C Work Phone: [facility] 06-27-2022 11:07-0400 Heart rate 78 /min NA Rodriguez PA-C Work Phone: [facility] 06-27-2022 11:07-0400 Respiratory rate 14 /min NA Rodriguez PA-C Work Phone: [facility] Encounters Encounter Date Encounter Type Care Provider Facility Start: 08-23-2025 End: 08-23-2025 ambulatory SANTO LOVE Facility:[facility] Start: 08-19-2025 End: 08-19-2025 ambulatory SANTO LOVE Facility:[facility] Start: 08-19-2025 Patient encounter procedure SANTO LOVE [facility] Start: 07-12-2025 End: 07-12-2025 Orders Only I Philipp Castro MD Work Phone: Colorectal Surgery Comment on above: Rectal bleeding (Debi alexander Dx) Start: 07-07-2025 End: 07-07-2025 Follow-up encounter Juliana Davis APRN.OBSTETRICIAN/GYNECOLOGIST Work Phone: [facility] [place] Start: 07-06-2025 ambulatory [facility] Facility :[facility] Start: 07-06-2025 End: 07-06-2025 Subsequent hospital visit by physician Screen Mammo [facility] Comment on above: Encounter for screen ing mammogram for malignant neoplasm of breast [Z12.31] Start: 07-05-2025 End: 07-05-2025 Telephone encounter Santo Love MD Work Phone: [address] [place] [address] Start: 06-21-2025 End: 06-22-2025 Refill Santo Love MD Work Phone: [facility] Comment on above: Refill Request Start: 05-29-2025 End: 05-29-2025 Office outpatient visit 15 minutes Juliana Davis APRN.OBSTETRICIAN/GYNECOLOGIST Work Phone: [facility] Comment on above: Essential hypertensi on (Primary Dx) Start: 05-29-2025 End: 05-29-2025 [facility] Facility:[facility] Start: 05-17-2025 End: 05-17-2025 Telephone encounter Gm Calderon MD Work Phone: General Surgery Comment on above: Appointment Mass of cecum (Prima ry Dx) Start: 05-09-2025 [facility] Facility :[facility] Start: 05-09-2025 End: 05-09-2025 Subsequent hospital visit by physician Zari Sorenson MD Work Phone: Ambulatory Surgery Comment on above: Screening for colon cancer [Z12.11] Start: 05-04-2025 End: 05-04-2025 Patient encounter procedure Elizabeth Ortega APRN.OBSTETRICIAN/GYNECOLOGIST Work Phone: General Surgery Comment on above: Screen for colon can cer (Primary Dx); History of colon polyps Start: 05-04-2025 End: 05-04-2025 ambulatory [facility] Facility:[facility] Start: 05-03-2025 End: 05-03-2025 Follow-up encounter Raisa Maradiaga APRN.CNP Work Phone: [facility] Start: 05-01-2025 End: 05-01-2025 ambulatory [facility] Facility:[facility] Start: 05-01-2025 End: 05-01-2025 Office outpatient visit 25 minutes Raisa Maradiaga APRN.OBSTETRICIAN/GYNECOLOGIST Work Phone: [facility] Comment on above: Essential hypertensi on (Primary Dx); Type 2 diabetes mellitus without complication, with long-term current use of insulin (HCC); Mixed hyperlipidemia Start: 05-01-2025 End: 05-01-2025 [facility] Facility:[facility] Start: 03-30-2025 End: 03-30-2025 ambulatory Santo Love MD Work Phone: [facility] Start: 03-30-2025 End: 03-30-2025 Patient encounter procedure Santo Love MD Work Phone: [facility] Comment on above: Population Health Na vigation Outreach (Batsheva Ocampo ) Start: 03-07-2025 End: 03-07-2025 Office outpatient visit 15 minutes Raisa Maradiaga APRN.OBSTETRICIAN/GYNECOLOGIST Work Phone: [facility] Comment on above: Essential (primary) hypertension; Type 2 diabetes mellitus without complication, with long-term current use of insulin (HCC) Start: 03-07-2025 End: 03-07-2025 [facility] Facility:[facility] Start: 03-03-2025 End: 03-03-2025 Refill Santo Love MD Work Phone: [facility] Comment on above: Refill Request Start: 03-01-2025 End: 03-01-2025 Refill Santo Love MD Work Phone: [facility] Comment on above: Refill Request Start: 02-07-2025 End: 02-08-2025 Telephone encounter Raisa Maradiaga APRN.CNP Work Phone: [facility] [place] Start: 02-07-2025 End: 02-07-2025 Office outpatient visit 25 minutes Raisa Maradiaga APRN.CNP Work Phone: [facility] [place] Comment on above: Type 2 diabetes abelardo itus without complication, with long-term current use of insulin (HCC) (Primary Dx); Essential (primary) hypertension; Nonalcoholic fatty liver disease Start: 02-07-2025 End: 02-07-2025 ambulatory SANTO LOVE Facility:[facility] Start: 02-06-2025 End: 02-06-2025 ambulatory Darrin Hope [facility] Work Phone: Pharmacy Medicine Start: 01-30-2025 End: 04-01-2025 Follow-up encounter Santo Love MD Work Phone: [facility] [place] Start: 01-27-2025 End: 01-27-2025 Telephone encounter Raisa Maradiaga APRN.OBSTETRICIAN/GYNECOLOGIST Work Phone: [facility] [place] Comment on above: Results Start: 01-26-2025 End: 01-26-2025 ambulatory [facility] Facility:[facility] Start: 01-26-2025 End: 01-26-2025 Subsequent hospital visit by physician [facility] Work Phone: Radiology Comment on above: Elevated alkaline ph osphatase level [R74.8] Start: 01-25-2025 End: 03-27-2025 Follow-up encounter Raisa Maradiaga APRN.OBSTETRICIAN/GYNECOLOGIST Work Phone: [facility] [place] Start: 01-25-2025 End: 01-25-2025 Telephone encounter Santo Love MD Work Phone: [facility] [place] Comment on above: Results Start: 01-24-2025 End: 03-26-2025 Follow-up encounter Santo Love MD Work Phone: [facility] [place] Start: 01-23-2025 End: 01-23-2025 ambulatory SANTO LOVE Facility:[facility] Start: 12-13-2024 End: 12-13-2024 ambulatory SANTO KATE Facility:[facility] Start: 12-13-2024 End: 12-13-2024 Office outpatient visit 15 minutes Raisa Maradiaga APRN.CNP Work Phone: [facility] [place] Comment on above: Essential hypertensi on (Primary Dx); Type 2 diabetes mellitus without complication, without long-term current use of insulin (HCC); Impacted cerumen of left ear Start: 12-07-2024 End: 12-07-2024 Refill Santo Love MD Work Phone: [facility] [place] Comment on above: Refill Request requesting medicatio n that is Start: 11-29-2024 End: 11-29-2024 ambulatory LEONELA BEAR Facility:[facility] Start: 11-29-2024 End: 11-29-2024 Patient encounter procedure Leonela Bear MD Work Phone: Pulmonary Medicine Comment on above: Lung nodules (Primar y Dx); Radiation fibrosis of lung (HCC); Granulomatous disease (HCC); History of breast cancer Start: 11-21-2024 End: 06-14-2025 Telephone encounter Santo Love MD Work Phone: [facility] Comment on above: Results Start: 11-19-2024 End: 11-19-2024 [facility] SANTO LOVE Facility:[facility] Start: 11-19-2024 End: 11-19-2024 Patient encounter procedure Santo Love MD Work Phone: [facility] Comment on above: Essential hypertensi on (Primary Dx); Mixed hyperlipidemia; Paroxysmal SVT (supraventricular tachycardia) (HCC); Persistent atrial fibrillation (HCC); Type 2 diabetes mellitus without complication, without long-term current use of insulin (HCC); Lung nodule; Radiation fibrosis of lung (HCC); Gastroesophageal reflux disease without esophagitis; Granulomatous disease (HCC); Low serum vitamin B12 Start: 10-04-2024 End: 10-04-2024 ambulatory [facility] Start: 08-09-2024 End: 08-09-2024 Subsequent hospital visit by physician Negar [facility] ([facility]) Work Phone: Cat Scan Comment on above: Pulmonary nodules [R 91.8] Start: 07-13-2024 End: 07-13-2024 Patient encounter procedure Santo Love MD Work Phone: [facility] [place] Comment on above: Essential hypertensi on (Primary Dx); Mixed hyperlipidemia; Atherosclerosis of coronary artery of curyung heart without angina pectoris, unspecified vessel or lesion type; Persistent atrial fibrillation (HCC); Lung nodule; Radiation fibrosis of lung (HCC); Gastroesophageal reflux disease without esophagitis; History of GI bleed; Type 2 diabetes mellitus without complication, without long-term current use of insulin (HCC); Iron deficiency anemia due to chronic blood loss; History of breast cancer; Osteopenia, unspecified location; Low serum vitamin B12 Start: 07-13-2024 [facility] Facility:[facility] Start: 07-13-2024 End: 07-13-2024 [facility] Facility:[facility] Start: 07-06-2024 End: 07-07-2024 Documentation procedure Mammography Coordinator [facility] Department Start: 07-06-2024 End: 07-07-2024 Letter encounter Mammography Coordinator [facility] Department Start: 07-05-2024 End: 07-05-2024 Subsequent hospital visit by physician Screen Mammo [facility] Mammogram Comment on above: History of breast ca ncer [Z85.3] Start: 06-20-2024 End: 06-20-2024 Office outpatient visit 15 minutes Jluiana Davis APRN.OBSTETRICIAN/GYNECOLOGIST Work Phone: [facility] [place] Comment on above: Essential hypertensi on (Primary Dx); Type 2 diabetes mellitus without complication, without long-term current use of insulin (HCC); Atherosclerosis of curyung coronary artery of curyung heart without angina pectoris Start: 05-12-2024 End: 05-12-2024 Office outpatient visit 25 minutes Juliana Davis APRN.OBSTETRICIAN/GYNECOLOGIST Work Phone: [facility] [place] Comment on above: Essential hypertensi on (Primary Dx); Type 2 diabetes mellitus without complication, without long-term current use of insulin (HCC) Start: 04-28-2024 Refill Santo Love MD Work Phone: [facility] [place] Comment on above: Refill Request medication clarifica tion Start: 04-12-2024 End: 04-12-2024 Patient encounter procedure Santo Love MD Work Phone: [facility] [place] Comment on above: Essential hypertensi on (Primary Dx); Mixed hyperlipidemia; Persistent atrial fibrillation (HCC); Lung nodule; Type 2 diabetes mellitus without complication, without long-term current use of insulin (HCC); History of breast cancer; Osteopenia, unspecified location; Granulomatous disease (HCC); History of GI bleed; Decreased iron stores; Hypercalcemia; Encounter for screening mammogram for malignant neoplasm of breast Start: 04-12-2024 Telephone encounter Santo Loev MD Work Phone: [facility] [place] Comment on above: Patient Update Start: 04-08-2024 End: 04-08-2024 Patient encounter procedure Santo Love MD Work Phone: [facility] [place] Comment on above: Essential hypertensi on (Primary Dx) Start: 04-07-2024 End: 04-07-2024 ambulatory Rajeev Warren Facility:[facility] Start: 03-14-2024 Refill Santo Love MD Work Phone: [facility] [place] Comment on above: Refill Request Start: 02-23-2024 Telephone encounter Zac mcgarry PA-C Work Phone: Urology Comment on above: Results Start: 02-22-2024 End: 02-22-2024 Patient encounter procedure Leonela Bear MD Work Phone: Pulmonary Medicine Comment on above: Lung nodule (Primary Dx); Granulomatous disease (HCC); Radiation fibrosis of lung (HCC); History of breast cancer Start: 02-18-2024 End: 02-18-2024 Subsequent hospital visit by physician [facility] Work Phone: Radiology Comment on above: Bilateral hydronephr osis [N13.30] Start: 02-08-2024 Telephone encounter Santo Love MD Work Phone: [facility] [place] Comment on above: Orders Start: 02-08-2024 End: 02-08-2024 Patient encounter procedure Talya Forrest Rodriguez PA-C Work Phone: [facility] [place] Comment on above: Type 2 diabetes abelardo itus without complication, without long- term current use of insulin (HCC) (Primary Dx); Iron deficiency anemia due to chronic blood loss; Pulmonary nodules Start: 02-05-2024 Telephone encounter Santo Love MD Work Phone: [facility] [place] Comment on above: Trulicity search Start: 02-04-2024 ambulatory [facility] Facility :[facility] Start: 02-04-2024 Non-patient / Non-visit Dr. Ruthy Love Work Phone: [facility] Start: 02-04-2024 End: 02-04-2024 Admission to same day surgery center Dr. Santo Love Work Phone: [facility] Work Phone: Start: 02-04-2024 End: 02-04-[address] Santo Love Work Phone: [facility] Work Phone: Start: 02-02-2024 End: 02-02-2024 Patient encounter procedure Zac Duncan PA-C Work Phone: Urology Comment on above: Bilateral hydronephr osis (Primary Dx); Hydroureter; Screening for genitourinary condition Start: 01-18-2024 End: 01-18-[address] Santo Love Work Phone: [facility] Work Phone: Start: 01-18-2024 End: 01-18-[address] Santo Love Work Phone: [facility] Work Phone: Start: 01-18-2024 End: 01-18-2024 ambulatory [facility] Facility:[facility] Start: 01-14-2024 Telephone encounter aSnto Love MD Work Phone: Pulmonology [facility] Comment on above: Results Start: 01-12-2024 End: 01-12-2024 Subsequent hospital visit by physician [facility] ([facility]) Work Phone: Cat Scan Comment on above: Lung nodules [R91.8] Start: 01-07-2024 Telephone encounter Santo Love MD Work Phone: [facility] [place] Comment on above: Results Start: 01-06-2024 End: 01-06-2024 Patient encounter procedure Santo Love MD Work Phone: [facility] [place] Comment on above: Duodenal ulcer (Prim angel luis Dx); Gastrointestinal hemorrhage, unspecified gastrointestinal hemorrhage type; Persistent atrial fibrillation (HCC); Type 2 diabetes mellitus without complication, without long-term current use of insulin (HCC); Mixed hyperlipidemia; Urinary retention; Hydroureter; Lung nodule Start: 12-24-2023 Patient Outreach Santo sharma MD Work Phone: [facility] [place] Comment on above: Transition Of Care Start: 12-22-2023 Non-patient / Non-visit Dr. Ruthy Love Work Phone: [facility] Work Phone: Start: 12-21-2023 Non-patient / Non-visit Dr. Ruthy Love Work Phone: [facility] Work Phone: Start: 12-20-2023 Non-patient / Non-visit Dr. Ruthy Love Work Phone: [facility] Work Phone: Start: 12-19-2023 Non-patient / Non-visit Dr. Ruthy Love Work Phone: [facility] Start: 12-19-2023 Non-patient / Non-visit Dr. Ruthy Love Work Phone: [facility] Work Phone: Start: 12-18-2023 Telephone encounter Santo Love MD Work Phone: [facility] [place] Comment on above: Results Start: 12-18-2023 Non-patient / Non-visit Dr. Ruthy oLve Work Phone: [facility] Work Phone: Start: 12-17-2023 Non-patient / Non-visit Dr. Ruthy Love Work Phone: [facility] Start: 12-17-2023 Non-patient / Non-visit Dr. Ruthy Love Work Phone: [facility] Work Phone: Start: 12-16-2023 Non-patient / Non-visit Dr. Ruthy Love Work Phone: [facility] Work Phone: Start: 12-16-2023 Non-patient / Non-visit Dr. Ruthy Love Work Phone: [facility] Start: 12-15-2023 ambulatory Cullen Meridian Facility :[facility] Start: 12-15-2023 Non-patient / Non-visit Dr. Ruthy Love Work Phone: [facility] Start: 12-15-2023 Non-patient / Non-visit Dr. Ruthy Love Work Phone: [facility] Work Phone: Start: 12-15-2023 ambulatory Gomez Johansen Fac ility:[facility] Start: 12-15-2023 End: 12-22-2023 Evaluation and management of inpatient Dr. Santo Love Work Phone: [facility] Work Phone: Start: 12-14-2023 Patient Outreach Eli Lyons MA [facility] Comment on above: Transition Of Care Start: 12-13-2023 Non-patient / Non-visit Dr. Ruthy Love Work Phone: [facility] Work Phone: Start: 12-12-2023 ambulatory Cullen Ferrer Facility :[facility] Start: 12-12-2023 Non-patient / Non-visit Dr. Ruthy Love Work Phone: [facility] Work Phone: Start: 12-12-2023 End: 12-12-2023 ambulatory Jacques Fortune Facility:[facility] Start: 12-12-2023 End: 12-12-2023 Non-patient / Non-visit Dr. Santo Love Work Phone: [facility] Work Phone: Start: 12-11-2023 Non-patient / Non-visit [facility] Rut[facility] Start: 12-11-2023 ambulatory Tahir [facility] Fac ility:[facility] Start: 12-11-2023 End: 12-13-2023 Evaluation and management of inpatient [facility] Work Phone: Start: 09-30-2023 Refill Santo Love MD Work Phone: [facility] Comment on above: Refill Request (SEE RX NOTES TO CHANGE) Start: 07-22-2023 Telephone encounter Herlinda Courtney Start: 07-02-2023 End: 07-02-2023 Subsequent hospital visit by physician Screen Mammo [facility] Mammogram Comment on above: Malignant neoplasm o f female breast, unspecified estrogen receptor status, unspecified laterality, unspecified site of breast (HCC) [C50.919] Start: 06-29-2023 Refill Santo Love MD Work Phone: [facility] Comment on above: Refill Request Start: 05-08-2023 Telephone encounter Santo Love MD Work Phone: [facility] Comment on above: Results Start: 05-07-2023 End: 05-07-2023 Patient encounter procedure Santo Love MD Work Phone: [facility] [place] Comment on above: Essential hypertensi on (Primary Dx); Mixed hyperlipidemia; Paroxysmal SVT (supraventricular tachycardia) (HCC); Persistent atrial fibrillation (HCC); Type 2 diabetes mellitus without complication, without long-term current use of insulin (HCC); 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 ; Osteopenia, unspecified location; Malignant neoplasm of female breast, unspecified estrogen receptor status, unspecified laterality, unspecified site of breast (HCC); Screening mammogram for breast cancer Start: 03-06-2023 Refill Santo Love MD Work Phone: [facility] Comment on above: Refill Request Start: 03-06-2023 Refill Santo Love MD Work Phone: [facility] [place] Comment on above: Med Change Request Start: 01-29-2023 End: 01-29-2023 Patient encounter procedure Santo Love MD Work Phone: [facility] [place] Comment on above: Vertigo (Primary Dx) ; Essential hypertension; Atherosclerosis of coronary artery of curyung heart without angina pectoris, unspecified vessel or lesion type; Persistent atrial fibrillation (HCC); Paroxysmal SVT (supraventricular tachycardia) (HCC); Type 2 diabetes mellitus without complication, without long-term current use of insulin (HCC); Malignant neoplasm of female breast, unspecified estrogen receptor status, unspecified laterality, unspecified site of breast (HCC); Osteopenia, unspecified location Start: 01-21-2023 Telephone encounter Herlinda Courtney Comment on above: Patient Assistance Start: 01-16-2023 Refill Santo Love MD Work Phone: [facility] Comment on above: Refill Request Start: 01-01-2023 End: 01-01-2023 Patient encounter procedure Talya Rodriguez PA-C Work Phone: [facility] Comment on above: Paroxysmal SVT (supr aventricular tachycardia) (HCC) (Primary Dx); Persistent atrial fibrillation (HCC); Atherosclerosis of coronary artery of curyung heart without angina pectoris, unspecified vessel or lesion type; Essential hypertension; Mixed hyperlipidemia; Nonrheumatic mitral valve regurgitation; BPPV (benign paroxysmal positional vertigo), unspecified laterality; Type 2 diabetes mellitus without complication, without long-term current use of insulin (HCC) Start: 11-27-2022 Telephone encounter Santo Love MD Work Phone: [facility] [place] Comment on above: Blood Pressure Check Start: 11-27-2022 End: 11-27-2022 Nursing evaluation of patient and report Mi Nurse Work Phone: [facility] [place] Comment on above: Essential hypertensi on (Primary Dx) Start: 11-17-2022 Refill Santo Love MD Work Phone: [facility] Comment on above: Refill Request Start: 11-11-2022 Telephone encounter Santo Love MD Work Phone: [facility] [place] Comment on above: Question Start: 10-03-2022 Telephone encounter Santo Love MD Work Phone: [facility] Comment on above: Results Start: 10-02-2022 End: 10-02-2022 Patient encounter procedure Santo Love MD Work Phone: [facility] Comment on above: Atherosclerosis of c oronary artery of curyung heart without angina pectoris, unspecified vessel or lesion type (Primary Dx); Essential hypertension; Mixed hyperlipidemia; Persistent atrial fibrillation (HCC); Paroxysmal SVT (supraventricular tachycardia) (HCC); Nonrheumatic mitral valve regurgitation; Gastroesophageal reflux disease without esophagitis; History of colon polyps; Type 2 diabetes mellitus without complication, without long-term current use of insulin (HCC); Malignant neoplasm of female breast, unspecified estrogen receptor status, unspecified laterality, unspecified site of breast (HCC); 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 ; Osteopenia, unspecified location; Hypercalcemia; Need for hepatitis C screening test Start: 09-16-2022 Refill Santo Love MD Work Phone: [facility] Comment on above: Refill Request Start: 07-17-2022 Telephone encounter Santo Love MD Work Phone: [facility] Comment on above: Blood Pressure Check Start: 07-17-2022 End: 07-17-2022 Nursing evaluation of patient and report Mi Nurse Work Phone: [facility] Comment on above: Essential hypertensi on (Primary Dx) Start: 06-27-2022 End: 06-27-2022 Patient encounter procedure Talya Rodriguez PA-C Work Phone: [facility] Comment on above: Nonrheumatic mitral valve regurgitation (Primary Dx); Persistent atrial fibrillation (HCC); Paroxysmal SVT (supraventricular tachycardia) (HCC); half-way current use of anticoagulant ; Atherosclerosis of coronary artery of curyung heart without angina pectoris, unspecified vessel or lesion type; Essential hypertension; Mixed hyperlipidemia; Type 2 diabetes mellitus without complication, without long-term current use of insulin (HCC); Obesity without serious comorbidity, unspecified classification, unspecified obesity type; Malignant neoplasm of female breast, unspecified estrogen receptor status, unspecified laterality, unspecified site of breast (HCC); Benign neoplasm of colon, unspecified part of colon; Constipation, unspecified constipation type; Osteopenia, unspecified location; Primary osteoarthritis of right knee; Gastroesophageal reflux disease without esophagitis; Other specified hypotension; Serum calcium elevated; History of colon polyps Start: 05-30-2022 Documentation procedure Mammog luis Coordinator [facility] Start: 05-30-2022 Letter encounter Mammography Coordinator [facility] Department Start: 05-30-2022 End: 05-30-2022 Subsequent hospital visit by physician Screen Mammo [facility] Mammogram Comment on above: Screening breast exa mination [Z12.39] Start: 05-07-2022 End: 05-07-2022 Subsequent hospital visit by physician Bone Density [facility] Work Phone: Radiology Comment on above: Postmenopausal [Z78. 0] Start: 04-22-2022 Telephone encounter Santo Love MD Work Phone: [facility] Comment on above: mammogram order Start: 03-25-2022 Telephone encounter Santo Love MD Work Phone: [facility] Comment on above: Patient Update prescription assista nce Start: 03-19-2022 Telephone encounter Herlinda PAZ Navigation Comment on above: prescription assista nce Start: 02-25-2022 Telephone encounter Herlinda PAZ Navigation Comment on above: prescription assista nce Start: 02-13-2022 Refill Santo Love MD Work Phone: [facility] [place] Comment on above: Refill Request Start: 12-01-2020 End: 12-01-2020 Emergency department patient visit SANTO KATE [facility] Start: 11-29-2020 End: 11-29-2020 [facility] Start: 10-14-2018 Patient encounter DANIEL Viera ility:[facility] Start: 06-29-2018 End: 06-30-2018 [facility] Start: 02-12-2018 End: 02-12-2018 Patient encounter DANIEL MARCELO [facility] Procedures Date Procedure Procedure Detail Performing Clinician Start: 05-09-2025 Colonoscopy flx dx w/collj spec when pfrmd Santo Love MD Work Phone: Start: 05-09-2025 Colonoscopy Zari Sorenson MD Work Phone: Start: 04-12-2024 Adult depression screening assessment Juliana Davis FORMING MACHINE UPKEEP MECHANIC HELPER.OBSTETRICIAN/GYNECOLOGIST Work Phone: Start: 02-04-[address] Santo bass Work Phone: Start: 02-02-2024 Urnls dip stick/tablet rgnt auto w/o microscopy Zac Duncan PA-C Work Phone: Start: 12-16-2023 Computed tomography angiography of abdominal and/or pelvic blood vessel Dr. Santo Love Work Phone: Start: 12-15-[address] Santo bass Work Phone: Start: 12-12-[address] Santo bass Work Phone: Start: 12-11-2023 Plain chest X-ray Start: 12-11-2023 Computed tomography of abdomen and pelvis with intravenous contrast Start: 07-02-2023 Screening mammography bi 2-view breast inc cad Santo Love MD Work Phone: Start: 06-27-2022 Adult depression screening assessment NA Michael SHASHA Work Phone: Start: 05-30-2022 Screening mammography bi 2-view breast inc cad Santo Love MD Work Phone: Start: 05-07-2022 Dxa bone density study 1/> sites axial skel Santo Love MD Work Phone: Start: 09-17-2021 Colonoscopy Santo Love MD Work Phone: Start: 09-13-2018 Adult depression screening assessment Santo Love MD Work Phone: Plan of Treatment Date Care Activity Detail Author Start: 05-09-2028 Screening for malign ant neoplasm of colon Colonoscopy [facility] Start: 03-07-2026 Annual PCP Team Journalism Professor starr Disease Visit Annual PCP Team Chronic Disease Visit [facility] Start: 02-07-2026 Annual PCP Team Journalism Professor starr Disease Visit Annual PCP Team Chronic Disease Visit [facility] Start: 02-07-2026 Hepatitis B screening Urine Al bumin:Creatinine Ratio [facility] Start: 12-13-2025 Annual PCP Team Journalism Professor starr Disease Visit Annual PCP Team Chronic Disease Visit [facility] Start: 12-13-2025 BP Controlled (<130/80) BP Controlle d (<130/80) [facility] Start: 11-30-2025 End: 11-30-2025 Patient encounter procedure Cat Scan Comment on above: Granulomatous diseas e (HCC) [D71]; Lung nodules [R91.8]; History of breast cancer [Z85.3] 1 yr f/u Start: 11-29-2025 BP Controlled (<130/80) BP Controlle d (<130/80) [facility] Start: 11-29-2025 End: 12-29-2025 CT Chest WO contrast CT CHEST WO IVCON Radiology Routine Granulomatous disease (HCC) Lung nodules History of breast cancer Expected: 11/29/2025, Expires: 12/29/2025 [facility] Work Phone: Comment on above: Expected: 11/29/2025 , Expires: 12/29/2025 Start: 11-19-2025 Annual PCP Team Journalism Professor starr Disease Visit Annual PCP Team Chronic Disease Visit [facility] Start: 11-19-2025 Hepatitis B screening Urine Al bumin:Creatinine Ratio [facility] Start: 11-19-2025 Hepatitis B surface antibody level LDL Cholesterol [facility] Start: 08-19-2025 End: 08-19-2025 Patient encounter procedure 08/19/2025 10:00 AM EDT Office Visit [facility] [place] [address] [place] [address] Santo Love MD [address] [place] [id number] wellness [facility] [place] Comment on above: wellness Start: 08-03-2025 End: 11-02-2025 Hemoglobin A1c in Blood HEMOGLOBIN A1C Lab Routine Type 2 diabetes mellitus without complication, with long-term current use of insulin (HCC) Expected: 08/03/2025, Expires: 11/02/2025 [facility] Work Phone: Comment on above: Expected: 08/03/2025 , Expires: 11/02/2025 Start: 08-01-2025 Hemoglobin A1c measurement HbA1C [facility] Start: 07-13-2025 Annual PCP Team Journalism Professor starr Disease Visit Annual PCP Team Chronic Disease Visit [facility] Start: 07-13-2025 BP Controlled (<130/80) BP Controlle d (<130/80) [facility] Start: 07-13-2025 Covid-19 Vaccine () Covid-19 Vaccine () [facility] Comment on above: Postponed from 07/03 (Declined at this time) Start: 07-13-2025 Covid-19 Vaccine () Covid-19 Vaccine () [facility] Comment on above: Postponed from 07/03 (Declined at this time) Start: 07-06-2025 End: 07-06-2025 Patient encounter procedure 07/06/2025 10:10 AM EDT Appointment Mammogram [address] [place], [place] [id number] screening Mammogram Mammogram Comment on above: screening Mammogram Start: 07-03-2025 Influenza vaccination C [facility] Start: 06-28-2025 End: 06-28-2025 Patient encounter procedure 06/28/2025 2:00 PM EDT Office Visit Colorectal Surgery [address] [address] Geovanna Castro MD [address] [place], [place] [id number] Mass of cecum [K63.89] Colorectal Surgery Comment on above: Mass of cecum [K63.8 9] Start: 06-20-2025 BP Controlled (<130/80) BP Controlle d (<130/80) [facility] Start: 05-19-2025 Hemoglobin A1c measurement HbA1C [facility] Start: 05-16-2025 End: 05-16-2025 Patient encounter procedure 05/16/2025 10:40 AM EDT Office Visit [facility] [place] [address] [place], [place] [id number] Raisa Maradiaga APRN.OBSTETRICIAN/GYNECOLOGIST [address] [place] [address] 2 week BP check [facility] [place] Comment on above: 2 week BP check Start: 05-09-2025 End: 08-08-2025 Hemoglobin A1c in Blood HEMOGLOBIN A1C Lab Routine Type 2 diabetes mellitus without complication, with long-term current use of insulin (HCC) Expected: 05/09/2025, Expires: 08/08/2025 [facility] Work Phone: Comment on above: Expected: 05/09/2025 , Expires: 08/08/2025 Start: 05-09-2025 End: 05-09-2025 Patient encounter procedure Ambulatory Surgery Comment on above: colonoscopy Colon Was seen by Ruben orona in office Start: 05-08-2025 End: 05-08-2025 Patient encounter procedure 05/08/2025 11:00 AM EDT Office Visit Family Medicine [place] [address] [place] [address] Raisa Maradiaga APRN.OBSTETRICIAN/GYNECOLOGIST [address] [place] [address] 2 month BP check [facility] [place] Comment on above: 2 month BP check Start: 05-04-2025 End: 05-04-2025 Patient encounter procedure 05/04/2025 10:30 AM EDT Office Visit General Surgery [address] [place] [address] Elizabeth Ortega, TORY.OBSTETRICIAN/GYNECOLOGIST [address] [place] [address] CONSULT: Colonoscopy. Last 09/17/2021. [facility] General Surgery Comment on above: CONSULT: Colonoscopy . Last 09/17/2021. [facility] Start: 05-01-2025 Influenza vaccination Influenza Vacc ine (#1) [facility] Comment on above: Postponed from 07/03 (Declined at this time) Start: 04-25-2025 Hemoglobin A1c measurement HbA1C [facility] Start: 04-12-2025 Annual PCP Team Journalism Professor starr Disease Visit Annual PCP Team Chronic Disease Visit [facility] Start: 04-12-2025 Anxiety Screening Anxiety Screening [facility] Start: 04-12-2025 Covid-19 Vaccine () Covid-19 Vaccine () [facility] Comment on above: Postponed from 07/03 (Declined at this time) Start: 04-12-2025 Depression Screening Depression Scre ening [facility] Start: 04-12-2025 Diabetic foot examination Diabetic F oot Exam [facility] Start: 04-12-2025 Shingrix Vaccine (2 of 3) Bagley grix Vaccine (2 of 3) [facility] Comment on above: Postponed from 08/08 (Declined at this time) Start: 04-12-2025 Urine microalbumin profile DTaP,Tdap,Td Vaccine (2 - Td or Tdap) [facility] Comment on above: Postponed from 04/13 (Declined at this time) Start: 04-08-2025 Annual PCP Team Journalism Professor starr Disease Visit Annual PCP Team Chronic Disease Visit [facility] Start: 04-07-2025 Hepatitis B surface antibody level LDL Cholesterol [facility] Start: 03-07-2025 End: 03-07-2025 Patient encounter procedure 03/07/2025 11:00 AM EDT Office Visit Family [facility] [address] [facility] [place], [place] [address] Raisa Maradiaga, TORY.OBSTETRICIAN/GYNECOLOGIST [address] [place] [id number] 1 month BP check Family Kalee Ocampo Comment on above: 1 month BP check Start: 02-10-2025 End: 06-12-2025 Hemoglobin A1c in Blood HEMOGLOBIN A1C Lab Routine Type 2 diabetes mellitus without complication, without long-term current use of insulin (HCC) Expected: 02/10/2025, Expires: 06/12/2025 [facility] Work Phone: Comment on above: Expected: 02/10/2025 , Expires: 06/12/2025 Start: 02-07-2025 Annual PCP Team Journalism Professor starr Disease Visit Annual PCP Team Chronic Disease Visit [facility] Start: 02-07-2025 BP Controlled (<130/80) BP Controlle d (<130/80) [facility] Start: 02-07-2025 End: 02-07-2025 Patient encounter procedure 02/07/2025 11:00 AM EDT Office Visit Family [facility]camp[facility] [address] [place], [place] [address] Raisa Maradiaga, FORMING MACHINE UPKEEP MECHANIC HELPER.OBSTETRICIAN/GYNECOLOGIST [address] [place], [place] [id number] 3 month follow up Family Kalee Ocampo Comment on above: 3 month follow up Start: 01-26-2025 End: 01-26-2025 Patient encounter procedure 01/26/2025 1:00 PM EDT Appointment Radiology [address] [place], [place] [id number] Elevated alkaline phosphatase level [R74.8] Radiology Comment on above: Elevated alkaline ph osphatase level [R74.8] Start: 01-05-2025 Annual PCP Team Journalism Professor starr Disease Visit Annual PCP Team Chronic Disease Visit [facility] Start: 01-05-2025 RSV Vaccine (1 - 1-d ose 60+ series) RSV Vaccine (1 - 1-dose 60+ series) [facility] Comment on above: Postponed from 03/31 (Declined at this time) Start: 01-05-2025 RSV Vaccine (1 - 1-d ose 75+ series) RSV Vaccine (1 - 1-dose 75+ series) [facility] Comment on above: Postponed from 03/31 (Declined at this time) Start: 12-21-2024 Glaucoma screening Dilated Retinal E xam 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 Comment on above: Expected: 11/19/2024 , Expires: 02/18/2025 Start: 11-19-2024 End: 02-18-2025 Cobalamin (Vitamin B12) [Mass/volume] in Serum or Plasma [facility] Comment on above: Expected: 11/19/2024 , Expires: 02/18/2025 Start: 11-19-2024 End: 02-18-2025 Comprehensive metabolic 2000 panel - Serum or Plasma [facility] Comment on above: Expected: 11/19/2024 , Expires: 02/18/2025 Start: 11-19-2024 End: 02-18-2025 Hemoglobin A1c in Blood [facility] Work Phone: Comment on above: Expected: 11/19/2024 , Expires: 02/18/2025 Start: 11-19-2024 End: 02-18-2025 Lipid 1996 panel - Serum or Plasma [facility] Comment on above: Expected: 11/19/2024 , Expires: 02/18/2025 Start: 11-19-2024 End: 02-18-2025 Microalbumin/Creatinine [Mass Ratio] in Urine [facility] Comment on above: Expected: 11/19/2024 , Expires: 02/18/2025 Start: 11-12-2024 Annual PCP Team Journalism Professor starr Disease Visit Annual PCP Team Chronic Disease Visit [facility] Start: 11-12-2024 BP Controlled (<130/80) BP Controlle d (<130/80) [facility] Start: 11-12-2024 Hepatitis B screening Urine Al bumin:Creatinine Ratio [facility] Start: 11-03-2024 Hepatitis B surface antibody level LDL Cholesterol [facility] Start: 11-02-2024 Medicare Advantage A nnual Wellness Visit Medicare Advantage Annual Wellness Visit [facility] Start: 09-17-2024 Colonoscopy COLONOSCOPY [facility] Start: 09-17-2024 Screening for malign ant neoplasm of colon Colonoscopy [facility] Start: 08-26-2024 End: 08-26-2024 Patient encounter procedure 08/26/2024 11:40 AM EDT Office Visit Family Kalee Ocampo [address] [place] [address] Santo Love MD [address] [facility] [place] [id number] 6 week follow up Family Kalee Ocampo Comment on above: 6 week follow up Start: 08-24-2024 End: 08-24-2024 Patient encounter procedure 08/24/2024 9:30 AM EDT Office Visit Pulmonary Medicine [address] [place] [id number] Genet Zavaleta PA-C [address] [facility] [address] F/U LUNG NODULES Pulmonary Medicine Comment on above: F/U LUNG NODULES Start: 08-12-2024 End: 11-11-2024 CBC panel - Blood by Automated count COMPLETE BLOOD COUNT Lab Routine Iron deficiency anemia due to chronic blood loss Expected: 08/12/2024, Expires: 11/11/[address] [facility] Comment on above: Expected: 08/12/2024 , Expires: 11/11/2024 Start: 08-12-2024 End: 11-11-2024 Cobalamin (Vitamin B12) [Mass/volume] in Serum or Plasma VITAMIN B12 Lab Routine Low serum vitamin B12 Expected: 08/12/2024, Expires: 11/11/[address] [facility] Comment on above: Expected: 08/12/2024 , Expires: 11/11/2024 Start: 08-12-2024 End: 11-11-2024 Comprehensive metabolic 2000 panel - Serum or Plasma COMPREHENSIVE METABOLIC PANEL Lab Routine Essential hypertension Expected: 08/12/2024, Expires: 11/11/[address] [facility] Comment on above: Expected: 08/12/2024 , Expires: 11/11/2024 Start: 08-12-2024 End: 11-11-2024 Hemoglobin A1c in Blood HEMOGLOBIN A1C Lab Routine Type 2 diabetes mellitus without complication, without long-term current use of insulin (HCC) Expected: 08/12/2024, Expires: 11/11/2024 [facility] Work Phone: Comment on above: Expected: 08/12/2024 , Expires: 11/11/2024 Start: 08-12-2024 Hemoglobin A1c measurement HbA1C [facility] Start: 08-12-2024 End: 11-11-2024 Lipid 1996 panel - Serum or Plasma LIPID PANEL BASIC Lab Routine Essential hypertension Expected: 08/12/2024, Expires: 11/11/[address] [facility] Comment on above: Expected: 08/12/2024 , Expires: 11/11/2024 Start: 08-09-2024 End: 03-09-2025 CT Chest WO contrast [facility] Work Phone: Comment on above: Expected: 08/09/2024 , Expires: 03/09/2025 Start: 08-09-2024 End: 08-09-2024 Patient encounter procedure 08/09/2024 10:00 AM EDT Appointment Cat Scan [address] [place] [address] 6 mo follow up pulmonary nodules Cat Scan Comment on above: 6 mo follow up pulmo nary nodules Start: 07-13-2024 End: 10-12-2024 Hemoglobin A1c in Blood HEMOGLOBIN A1C Lab Routine Type 2 diabetes mellitus without complication, without long-term current use of insulin (HCC) Expected: 07/13/2024, Expires: 10/12/[address] [facility] Comment on above: Expected: 07/13/2024 , Expires: 10/12/2024 Start: 07-13-2024 End: 07-13-2024 Patient encounter procedure 07/13/2024 11:20 AM EDT Office Visit Family Medicine [place] [address] [place] [address] Santo Love MD [address] [place] [address] 3 month follow up [facility] [place] Comment on above: 3 month follow up Start: 07-08-2024 Hemoglobin A1c measurement HbA1C [facility] Start: 07-05-2024 End: 07-05-2024 Patient encounter procedure 07/05/2024 9:30 AM EDT Appointment Mammogram [address] [place] [address] GENEVA SCREENING Mammogram Comment on above: GENEVA SCREENING Start: 07-03-2024 Covid-19 Vaccine ( season) Covid-19 Vaccine () [facility] Start: 07-03-2024 Influenza vaccination C [facility] Start: 06-20-2024 End: 06-20-2024 Patient encounter procedure 06/20/2024 11:00 AM EDT Office Visit Family Medicine [place] [address] [place] [address] Juliana Davis APRN.OBSTETRICIAN/GYNECOLOGIST [address] [place] [address] 1 month follow up increase in lisinopril and blood sugars Family [facility] [place] Comment on above: 1 month follow up in crease in lisinopril and blood sugars Start: 05-14-2024 Glaucoma screening Dilated Retinal E xam [facility] Start: 05-14-2024 Hepatitis C antibody , confirmatory test DILATED RETINAL EXAM [facility] Start: 05-12-2024 Hemoglobin A1c measurement HbA1C [facility] Start: 05-12-2024 End: 05-12-2024 Patient encounter procedure 05/12/2024 10:00 AM EDT Office Visit [facility] [place] [address] [facility] [place] [phone] Juliana Davis APRN.INSTRUCTIONAL TECHNOLOGY FACILITATOR [address] [place] [address] BP check [facility] [place] Comment on above: BP check Start: 05-07-2024 3 comp foot exam completed DIABETIC FOOT EXAM [facility] Start: 05-07-2024 ANNUAL PCP TEAM MEDIA CONSULTANT STARR DISEASE VISIT ANNUAL PCP TEAM CHRONIC DISEASE VISIT [facility] Start: 05-07-2024 BP CONTROLLED (<130/80) BP CONTROLLE D (<130/80) [facility] Start: 05-07-2024 Diabetic foot examination Diabetic F oot Exam [facility] Start: 05-01-2024 Influenza vaccination Influenza Vacc ine (#1) [facility] Comment on above: Postponed from 07/03 (Declined at this time) Start: 04-12-2024 End: 07-12-2024 Calcium.ionized [Moles/volume] in Blood CALCIUM, IONIZED Lab Routine Hypercalcemia Expected: 04/12/2024, Expires: 07/12/2024 [facility] Work Phone: Comment on above: Expected: 04/12/2024 , Expires: 07/12/2024 Start: 04-12-2024 End: 07-12-2024 CBC W Auto Differential panel - Blood COMPLETE BLOOD COUNT AND DIFFERENTIAL Lab Routine Decreased iron stores Expected: 04/12/2024, Expires: 07/12/[address] [facility] Comment on above: Expected: 04/12/2024 , Expires: 07/12/2024 Start: 04-12-2024 End: 07-12-2024 Iron and Iron binding capacity panel - Serum or Plasma IRON AND TIBC Lab Routine Decreased iron stores Expected: 04/12/2024, Expires: 07/12/[address] [facility] Comment on above: Expected: 04/12/2024 , Expires: 07/12/2024 Start: 04-08-2024 End: 04-08-2024 Patient encounter procedure 04/08/2024 9:20 AM EDT Office Visit [facility] [place] [address] [place] [id number] Santo Love MD [address] [place] [id number] 3 month follow up [facility] [place] Comment on above: 3 month follow up Start: 04-02-2024 End: 07-02-2024 CBC W Auto Differential panel - Blood CBC + DIFF Lab Routine Type 2 diabetes mellitus without complication, without long-term current use of insulin ([facility]) Iron deficiency anemia due to chronic blood loss Expected: 04/02/2024, Expires: 07/02/2024 [facility] Work Phone: Comment on above: Expected: 04/02/2024 , Expires: 07/02/2024 Start: 04-02-2024 End: 07-02-2024 Comprehensive metabolic 2000 panel - Serum or Plasma COMP METABOLIC PANEL Lab Routine Type 2 diabetes mellitus without complication, without long-term current use of insulin (HCC) Expected: 04/02/2024, Expires: 07/02/2024 [facility] Work Phone: Comment on above: Expected: 04/02/2024 , Expires: 07/02/2024 Start: 04-02-2024 End: 07-02-2024 Hemoglobin A1c in Blood HGB A1C Lab Routine Type 2 diabetes mellitus without complication, without long-term current use of insulin (HCC) Expected: 04/02/2024, Expires: 07/02/2024 [facility] Work Phone: Comment on above: Expected: 04/02/2024 , Expires: 07/02/2024 Start: 02-04-2024 Patient discharge [facility] Start: 02-02-2024 End: 03-03-2025 US Kidney - bilateral and Urinary bladder US KIDNEY/BLADDER Radiology Routine Bilateral hydronephrosis Hydroureter Expected: 02/02/2024 (Approximate), Expires: 03/03/2025 [facility] Work Phone: Comment on above: Expected: 02/02/2024 (Approximate), Expires: 03/03/2025 Start: 01-30-2024 ANNUAL PCP TEAM MEDIA CONSULTANT STARR DISEASE VISIT ANNUAL PCP TEAM CHRONIC DISEASE VISIT [facility] Start: 01-30-2024 BP CONTROLLED (<130/80) BP CONTROLLE D (<130/80) [facility] Start: 01-30-2024 COVID-19 VACCINE (#1) COVID-19 VACCI NE (#1) [facility] Comment on above: Postponed from 10/01 (Declined at this time) Start: 01-30-2024 SHINGRIX VACCINE (2 of 3) BAGLEY GRIX VACCINE (2 of 3) [facility] Comment on above: Postponed from 08/08 (Declined at this time) Start: 01-30-2024 Urine microalbumin profile [facility] Comment on above: Postponed from 04/13 (Declined at this time) Start: 01-07-2024 End: 04-07-2024 CBC W Auto Differential panel - Blood CBC + DIFF Lab Routine Iron deficiency anemia due to chronic blood loss Expected: 01/07/2024, Expires: 04/07/2024 [facility] Work Phone: Comment on above: Expected: 01/07/2024 , Expires: 04/07/2024 Start: 01-07-2024 End: 04-07-2024 Iron and Iron binding capacity panel - Serum or Plasma IRON + TIBC Lab Routine Iron deficiency anemia due to chronic blood loss Expected: 01/07/2024, Expires: 04/07/2024 [facility] Work Phone: Comment on above: Expected: 01/07/2024 , Expires: 04/07/2024 Start: 01-02-2024 ANNUAL PCP TEAM MEDIA CONSULTANT STARR DISEASE VISIT ANNUAL PCP TEAM CHRONIC DISEASE VISIT [facility] Start: 12-22-2023 Patient discharge [facility] Start: 12-20-2023 [facility] Start: 12-20-2023 [facility] Start: 12-19-2023 Referral to occupati onal therapist [facility] Start: 12-19-2023 Referral to service [facility] Start: 12-19-2023 [facility] Start: 12-18-2023 [facility] Start: 12-17-2023 Administration of bl ood product [facility] Start: 12-17-2023 Consultation [facility] Start: 12-17-2023 [facility] Start: 12-16-2023 Introduction of urin angel luis catheter [facility] Start: 12-16-2023 Administration of bl ood product [facility] Start: 12-15-2023 Application of intermittent pneumatic compression device [facility] Start: 12-15-2023 Care regimes management [facility] Start: 12-15-2023 Notification of physician [facility] Start: 12-15-2023 [facility] Start: 12-15-2023 Following clinical pathway protocol [facility] Start: 12-15-2023 Ambulation without limitation [facility] Start: 12-15-2023 Assessment of risk o f venous thromboembolism [facility] Start: 12-15-2023 Insertion of cathete r into peripheral vein [facility] Start: 12-15-2023 Providing care accor ding to standard [facility] Start: 12-15-2023 Referral to gastroenterology service [facility] Start: 12-15-2023 [facility] Start: 12-15-2023 Admission procedure [facility] Start: 12-15-2023 Verification routine [facility] Start: 12-15-2023 Hospital admission, emergency, from emergency room, medical nature [facility] Start: 12-15-2023 Administration of bl ood product [facility] Start: 02-13-2024 Leukocyte reduced re d blood cells [facility] Start: 12-15-2023 End: 12-16-2023 [facility] Start: 12-15-2023 Patient referral to dietitian [facility] Start: 12-15-2023 [facility] Start: 12-13-2023 Patient discharge [facility] Start: 12-13-2023 [facility] Start: 12-12-2023 Blood chemistry [facility] Start: 12-12-2023 Complete blood count [facility] Start: 12-12-2023 Vitamin B12 measurement [facility] Start: 12-11-2023 Following clinical pathway protocol [facility] Start: 12-11-2023 Application of intermittent pneumatic compression device [facility] Start: 12-11-2023 Ambulation without limitation [facility] Start: 12-11-2023 Assessment of risk o f venous thromboembolism [facility] Start: 12-11-2023 Care regimes management [facility] Start: 12-11-2023 Incentive spirometry [facility] Start: 12-11-2023 Insertion of cathete r into peripheral vein [facility] Start: 12-11-2023 Notification of physician [facility] Start: 12-11-2023 Oxygen therapy [facility] Start: 12-11-2023 Providing care accor ding to standard [facility] Start: 12-11-2023 Referral to gastroenterology service [facility] Start: 12-11-2023 Referral to occupati onal therapist [facility] Start: 12-11-2023 Referral to service [facility] Start: 12-11-2023 End: 12-12-2023 [facility] Start: 12-11-2023 Verification routine [facility] Start: 12-11-2023 Admission procedure [facility] Start: 12-11-2023 [facility] Start: 11-02-2023 Behavioral Health Screening Behavioral Health Screening [facility] Start: 11-02-2023 Depression Assessment Depression Ass essment [facility] Start: 10-02-2023 ANNUAL PCP TEAM MEDIA CONSULTANT STARR DISEASE VISIT ANNUAL PCP TEAM CHRONIC DISEASE VISIT [facility] Start: 10-02-2023 BP CONTROLLED (<130/80) BP CONTROLLE D (<130/80) [facility] Start: 10-02-2023 Hepatitis B surface antibody level LDL CHOLESTEROL [facility] Start: 08-08-2023 End: 10-08-2023 Hemoglobin A1c in Blood HGB A1C Lab Routine Type 2 diabetes mellitus without complication, without long-term current use of insulin (HCC) Expected: 08/08/2023, Expires: 10/08/2023 [facility] Work Phone: Comment on above: Expected: 08/08/2023 , Expires: 10/08/2023 Start: 08-07-2023 Hemoglobin A1c/Hemoglobin.total in Blood HBA1C [facility] Start: 08-01-2023 Hemoglobin A1c/Hemoglobin.total in Blood HBA1C [facility] Start: 07-17-2023 BP CONTROLLED (<130/80) BP CONTROLLE D (<130/80) [facility] Start: 07-03-2023 Covid-19 Vaccine () Covid-19 Vaccine () [facility] Start: 07-03-2023 Influenza vaccination C [facility] Start: 06-27-2023 Adult depression screening assessment DEPRESSION SCREENING [facility] Start: 06-27-2023 ANNUAL PCP TEAM MEDIA CONSULTANT STARR DISEASE VISIT ANNUAL PCP TEAM CHRONIC DISEASE VISIT [facility] Start: 06-27-2023 BP CONTROLLED (<130/80) BP CONTROLLE D (<130/80) [facility] Start: 06-27-2023 Hepatitis B screening URINE AL BUMIN:CREATININE RATIO [facility] Start: 06-27-2023 Hepatitis C antibody , confirmatory test DILATED RETINAL EXAM [facility] Start: 05-07-2023 End: 07-07-2023 Basic metabolic 2000 panel - Serum or Plasma [facility] Work Phone: Comment on above: Expected: 05/07/2023 , Expires: 07/07/2023 Start: 05-07-2023 End: 07-07-2023 Hemoglobin A1c in Blood [facility] Work Phone: Comment on above: Expected: 05/07/2023 , Expires: 07/07/2023 Start: 05-01-2023 Influenza vaccination INFLUENZA (#1) [facility] Comment on above: Postponed from 07/03 (Declined at this time) Start: 04-02-2023 Hemoglobin A1c/Hemoglobin.total in Blood HBA1C [facility] Start: 12-28-2022 Hemoglobin A1c/Hemoglobin.total in Blood HBA1C [facility] Start: 12-18-2022 3 comp foot exam completed DIABETIC FOOT EXAM [facility] Start: 12-18-2022 ANNUAL PCP TEAM MEDIA CONSULTANT STARR DISEASE VISIT ANNUAL PCP TEAM CHRONIC DISEASE VISIT [facility] Start: 12-18-2022 BP CONTROLLED (<130/80) BP CONTROLLE D (<130/80) [facility] Start: 12-18-2022 Hepatitis B screening URINE AL BUMIN:CREATININE RATIO [facility] Start: 11-02-2022 ADVANCE DIRECTIVE DISCUSSION ADVANCE DIRECTIVE DISCUSSION [facility] Start: 11-02-2022 DEPRESSION ASSESSMENT DEPRESSION ASS ESSMENT [facility] Start: 10-03-2022 End: 12-03-2022 25-hydroxyvitamin D3 [Mass/volume] in Serum or Plasma VITAMIN D 25 HYDROXY Lab Routine Hypercalcemia Expected: 10/03/2022, Expires: 12/03/2022 [facility] Work Phone: Comment on above: Expected: 10/03/2022 , Expires: 12/03/2022 Start: 10-03-2022 End: 12-03-2022 Basic metabolic 2000 panel - Serum or Plasma BASIC METABOLIC PNL Lab Routine Hypercalcemia Expected: 10/03/2022, Expires: 12/03/2022 [facility] Work Phone: Comment on above: Expected: 10/03/2022 , Expires: 12/03/2022 Start: 10-03-2022 End: 12-03-2022 Calcium.ionized [Moles/volume] in Blood CALCIUM IONIZED BLOOD Lab Routine Hypercalcemia Expected: 10/03/2022, Expires: 12/03/2022 [facility] Work Phone: Comment on above: Expected: 10/03/2022 , Expires: 12/03/2022 Start: 10-02-2022 End: 12-02-2022 Calcium.ionized [Moles/volume] in Blood [facility] Work Phone: Comment on above: Expected: 10/02/2022 , Expires: 12/02/2022 Start: 10-02-2022 End: 12-02-2022 CBC W Auto Differential panel - Blood [facility] Work Phone: Comment on above: Expected: 10/02/2022 , Expires: 12/02/2022 Start: 10-02-2022 End: 12-02-2022 Comprehensive metabolic 2000 panel - Serum or Plasma [facility] Work Phone: Comment on above: Expected: 10/02/2022 , Expires: 12/02/2022 Start: 10-02-2022 End: 12-02-2022 Hemoglobin A1c in Blood [facility] Work Phone: Comment on above: Expected: 10/02/2022 , Expires: 12/02/2022 Start: 10-02-2022 End: 12-02-2022 Hepatitis C virus Ab [Presence] in Serum [facility] Work Phone: Comment on above: Expected: 10/02/2022 , Expires: 12/02/2022 Start: 10-02-2022 End: 12-02-2022 LIPID PANEL, NONFASTING [facility] Work Phone: Comment on above: Expected: 10/02/2022 , Expires: 12/02/2022 Start: 10-02-2022 End: 12-02-2022 Parathyrin.intact [Mass/volume] in Serum or Plasma [facility] Work Phone: Comment on above: Expected: 10/02/2022 , Expires: 12/02/2022 Start: 07-03-2022 Influenza vaccination C [facility] Start: 06-27-2022 End: 08-27-2022 Comprehensive metabolic 2000 panel - Serum or Plasma COMP METABOLIC PANEL Lab Routine Persistent atrial fibrillation (HCC) Essential hypertension Mixed hyperlipidemia Serum calcium elevated Expected: 06/27/2022, Expires: 08/27/2022 [facility] Work Phone: Comment on above: Expected: 06/27/2022 , Expires: 08/27/2022 Start: 06-27-2022 End: 08-27-2022 Hemoglobin A1c in Blood [facility] Work Phone: Comment on above: Expected: 06/27/2022 , Expires: 08/27/2022 Start: 06-17-2022 COVID-19 VACCINE (#1) COVID-19 VACCI NE (#1) [facility] Comment on above: Postponed from 03/31 (Declined at this time) Postponed from 10/01 (Declined at this time) Start: 06-17-2022 COVID-19 VACCINE (1) COVID-19 VACCIN E (1) [facility] Comment on above: Postponed from 03/31 (Declined at this time) Start: 06-17-2022 Hemoglobin A1c/Hemoglobin.total in Blood HBA1C [facility] Start: 06-15-2022 Hepatitis B surface antibody level LDL CHOLESTEROL [facility] Start: 06-13-2022 Hepatitis C antibody , confirmatory test DILATED RETINAL EXAM [facility] Start: 11-02-2021 ADVANCE DIRECTIVE DISCUSSION ADVANCE DIRECTIVE DISCUSSION [facility] Start: 11-02-2021 DEPRESSION ASSESSMENT DEPRESSION ASS ESSMENT [facility] Start: 09-13-2019 Adult depression screening assessment DEPRESSION SCREENING [facility] Start: 2019 RSV Vaccine (1 - 1-d ose 75+ series) RSV Vaccine (1 - 1-dose 75+ series) [facility] Start: 04-13-2017 Urine microalbumin profile [facility] Start: 09-18-2016 PNEUMOCOCCAL: 65+ (3 - PPSV23 or PCV20) PNEUMOCOCCAL: 65+ (3 - PPSV23 or PCV20) [facility] Start: 08-08-2011 SHINGRIX VACCINE (1 of 2) BAGLEY GRIX VACCINE (1 of 2) [facility] Start: 08-08-2011 SHINGRIX VACCINE (2 of 3) BAGLEY GRIX VACCINE (2 of 3) [facility] Start: 2004 Hepatitis B Vaccine (1 of 3 - Risk 3-dose series) Hepatitis B Vaccine (1 of 3 - Risk 3-dose series) [facility] Start: 2004 RSV Vaccine (1 - 1-d ose 60+ series) RSV Vaccine (1 - 1-dose 60+ series) [facility] Start: 1962 BP CONTROLLED (<130/80) BP CONTROLLE D (<130/80) [facility] Start: 1962 HEPATITIS C SCREENING HEPATITIS C SC GET [facility] Start: 1950 PNEUMOCOCCAL: 65+ (1 - PCV) PNEUMOCOCCAL: 65+ (1 - PCV) [facility] Start: 1944 COVID-19 VACCINE (#1) COVID-19 VACCI NE (#1) [facility] Anion gap measurement [facility] BUN/Creatinine ratio [facility] Calcium [Mass/volume ] in Serum or Plasma [facility] Carbon dioxide, tota l [Moles/volume] in Serum or Plasma [facility] Chloride [Moles/volu me] in Serum or Plasma [facility] Creatinine [Moles/vo lume] in Serum or Plasma [facility] End: 01-16-2025 CT Chest WO contrast CT CHEST WO IVCON Radiology Routine Lung nodules Malignant neoplasm of female breast, unspecified estrogen receptor status, unspecified laterality, unspecified site of breast (HCC) 1 Occurrences starting 12/18/2023 until 01/16/2025 [facility] Work Phone: Comment on above: 1 Occurrences starti ng 12/18/2023 until 01/16/2025 CT Chest WO contrast CT CHEST WO IVCON Radiology Routine Lung nodules Malignant neoplasm of female breast, unspecified estrogen receptor status, unspecified laterality, unspecified site of breast (HCC) 01/12/2024 11:12 AM EDT [facility] Work Phone: End: 08-04-2026 DBT Breast - bilateral screening GENEVA SCREENING W SANCHEZ Radiology Routine Encounter for screening mammogram for malignant neoplasm of breast 1 Occurrences starting 07/05/2025 until 08/04/2026 [facility] Work Phone: Comment on above: 1 Occurrences starti ng 07/05/2025 until 08/04/2026 DBT Breast - bilater al screening GENEVA SCREENING W SANCHEZ Radiology Routine Encounter for screening mammogram for malignant neoplasm of breast 07/06/2025 10:27 AM EDT [facility] Work Phone: End: 06-27-2023 ECG COMPLETE ECG COMPLETE ECG Routine Persistent atrial fibrillation (HCC) Other specified hypotension 1 Occurrences starting 06/27/2022 until 06/27/2023 [facility] Work Phone: Comment on above: 1 Occurrences starti ng 06/27/2022 until 06/27/2023 Erythrocyte mean corpuscular volume determination [facility] End: 07-12-2026 Flexible sigmoidoscopy study COLONOSCOPY DIAGNOSTIC Endoscopy Routine Rectal bleeding 1 Occurrences starting 07/12/2025 until 07/12/2026 [facility] Work Phone: Comment on above: 1 Occurrences starti ng 07/12/2025 until 07/12/2026 Glucose [Mass/volume ] in Serum or Plasma [facility] Hematocrit [Volume Fraction] of Blood [facility] Hemoglobin [Mass/vol ume] in Blood [facility] Leukocytes [#/volume ] in Blood [facility] End: 06-05-2024 GENEVA SCREENING GENEVA SCREENING Radiology Routine Malignant neoplasm of female breast, unspecified estrogen receptor status, unspecified laterality, unspecified site of breast (HCC) 1 Occurrences starting 05/07/2023 until 06/05/2024 [facility] Work Phone: Comment on above: 1 Occurrences starti ng 05/07/2023 until 06/05/2024 Mean corpuscular hemoglobin concentration determination [facility] Mean corpuscular hemoglobin determination [facility] Measurement of renal function [facility] End: 05-12-2025 MG Breast Screening GENEVA SCREENING Radiology Routine History of breast cancer Encounter for screening mammogram for malignant neoplasm of breast 1 Occurrences starting 04/12/2024 until 05/12/[address] [facility] Comment on above: 1 Occurrences starti ng 04/12/2024 until 05/12/2025 MG Breast Screening GENEVA SCREENIN G Radiology Routine History of breast cancer Encounter for screening mammogram for malignant neoplasm of breast 07/05/2024 9:40 AM EDT [facility] Work Phone: Patient referral [facility] Work Phone: Platelets [#/volume] in Blood [facility] POST VOID RESIDUAL POST VOID RES IDUAL Procedures Routine Bilateral hydronephrosis Hydroureter Screening for genitourinary condition Ordered: 02/02/2024 [facility] Work Phone: Comment on above: Ordered: 02/02/2024 Potassium [Moles/vol ume] in Serum or Plasma [facility] Red blood cell count [facility] Red cell distributio n width determination [facility] Removal impacted cer umen instrumentation unilat REMOVAL OF IMPACTED CERUMEN - INSTRUMENTATION Procedures Routine Impacted cerumen of left ear Ordered: 12/13/[address] [facility] Comment on above: Ordered: 12/13/2024 End: 03-30-2026 Screening colonoscopy COLONOSCOPY SCREENING Endoscopy Routine Screening for colon cancer 1 Occurrences starting 03/30/2025 until 03/30/2026 [facility] Work Phone: Comment on above: 1 Occurrences starti ng 03/30/2025 until 03/30/2026 End: 05-22-2023 Screening mammography bi 2-view breast inc cad GENEVA SCREENING Radiology Routine Screening breast examination 1 Occurrences starting 04/22/2022 until 05/22/2023 [facility] Work Phone: Comment on above: 1 Occurrences starti ng 04/22/2022 until 05/22/2023 Sodium [Moles/volume ] in Serum or Plasma [facility] Tissue Pathology bio psy report [facility] Work Phone: Comment on above: Release Upon Orderin g for 1 Occurrences starting 05/09/2025, 1 completed Urea nitrogen [Mass/volume] in Serum or Plasma [facility] End: 02-24-2026 US Abdomen RUQ US ABD RIGHT UPPER QUADRANT Radiology Routine Elevated alkaline phosphatase level 1 Occurrences starting 01/25/2025 until 02/24/2026 [facility] Work Phone: Comment on above: 1 Occurrences starti ng 01/25/2025 until 02/24/2026 US Abdomen RUQ US ABD RIGHT UPP ER QUADRANT Radiology Routine Elevated alkaline phosphatase level 01/26/2025 2:13 PM EDT [facility] Work Phone: US Kidney - bilatera l and Urinary bladder US KIDNEY/BLADDER Radiology Routine Bilateral hydronephrosis Hydroureter 02/18/2024 11:02 AM EDT [facility]: [facility] c [facility] c [facility] Immunizations Immunization Date Immunization Notes Care Provider Zehra staton 06-24-2019 influenza virus vacc ine, unspecified formulation Herlinda Teena SCUDDING INSPECTOR [facility] 09-18-2015 influenza, high dose seasonal, preservative-free Santo Love MD Work Phone: [facility] 09-18-2015 pneumococcal conjuga te vaccine, 13 valent Santo Love MD Work Phone: [facility] 07-28-2014 influenza, high dose seasonal, preservative-free Santo Love MD Work Phone: [facility] 10-14-2013 influenza virus vacc ine, unspecified formulation Santo Love MD Work Phone: [facility] 10-13-2012 influenza virus vacc ine, unspecified formulation Santo Love MD Work Phone: [facility] 06-13-2011 zoster vaccine, live Santo Love MD Work Phone: [facility] Work Phone: 06-12-2009 pneumococcal polysaccharide vaccine, 23 valent Santo Love MD Work Phone: [facility] Work Phone: 04-13-2007 tetanus toxoid, redu fatemeh diphtheria toxoid, and acellular pertussis vaccine, adsorbed Santo Love MD Work Phone: [facility] Work Phone: Payers Date Payer Category Payer Medicare [id number] 2024 Medicare (Managed Care) BATSHEVA BATISTA [id number] 2024 Medicare [id number] 2024 Medicare [id number] 2023 Private Health Insurance [facility] [id number] 2023 Self-pay [id number] 2023 Medicare [id number] 2018 Unknown ANTHEM BLUE CROS S AND BLUE SHIELD ANTHEM MEDIBLUE HMO [id number] 2018-Present [phone] [address] [place] [address] O [id number]. [id number] 2018 Unknown [id number]. 1.13.159.2. [id number] 2015 Unknown [id number] 1945 Unknown [id number] 2.16.840.1.017435.3.579.2. 651 1944 Unknown [id number] 2.16.840.1.310166.3.579.2. 651 Medicare MEDICARE PART A B [id number] Unknown [id number] 2.16.840.1.996751.3.579.2. 462 Unknown [id number] 2.16.840.1.092613.3.579.2. 462 Unknown [id number] 2.16840.1.379215.3.579.2. 462 Unknown [id number] 2.16.840.1.639378.3.579.2. 462 Unknown [id number] 2.16840.1.249645.3.579.2. 462 Unknown [id number] 2.16840.1.957816.3.579.2. 462 Unknown [id number] 2.840.1.831864.3.579.2. 462 Unknown [id number] 2.840.1.273162.3.579.2. 462 Unknown [id number] 2.840.1.654136.3.579.2. 462 Unknown [id number] 2.840.1.144838.3.579.2. 462 Unknown [id number] 2.840.1.349573.3.579.2. 462 Unknown [id number] 2.840.1.362269.3.579.2. 462 Unknown [id number] 2.840.1.844263.3.579.2. 462 Unknown [id number] 2.840.1.246192.3.579.2. 462 Unknown [id number] 2.840.1.464050.3.579.2. 462 Unknown [id number] 2.840.1.842354.3.579.2. 462 Unknown [id number] 2.840.1.683303.3.579.2. 462 Unknown [id number] 2.16840.1.933355.3.579.2. 462 Unknown [id number] 2.840.1.646898.3.579.2. 462 Unknown [id number] 2.16.840.1.066388.3.579.2. 462 Unknown [id number] 2.16.840.1.545316.3.579.2. 462 Unknown [id number] 2.16.840.1.360747.3.579.2. 462 Unknown [id number] 2.16.840.1.049565.3.579.2. 462 Unknown [id number] 2.16.840.1.994431.3.579.2. 462 Unknown [id number] 2.16.840.1.443194.3.579.2. 462 Unknown [id number] 2.16.840.1.176414.3.579.2. 462 Unknown [id number] 2.16.840.1.646105.3.579.2. 462 Unknown [id number] 2.16.840.1.734333.3.579.2. 462 Social History Date Type Detail Facility Start: 11-28-2014 End: 07-17-2022 Tobacco smoking status NHIS Never smoked tobacco [facility] Work Phone: Start: 12-18-2021 End: 01-06-2024 Alcohol intake Current non-drinker of alcohol (finding) [facility] Start: 1945 Sex Assigned At Not on file [facility] Start: 03-14-2022 End: 10-02-2022 Exposure to SARS-CoV-2 (event) Not sure [facility] Start: 11-28-2014 End: 07-17-2022 Tobacco use and exposure Smokeless tobacco non-user [facility] Start: 05-07-2023 End: 01-06-2024 History of Social function [facility] Work Phone: Start: 05-07-2023 End: 01-06-2024 Tobacco use panel [facility] Work Phone: Start: 10-03-2012 Adult Depression Screening Assessment [address] [facility] Work Phone: Start: 12-11-2023 End: 02-01-2024 Tobacco smoking status WYIS Unknown if ever smoked [facility] Start: 02-10-2021 With Family [facility] Start: 1945 Sex Assigned At Female [facility] Start: 02-02-2024 End: 05-29-2025 Alcohol intake Ex-drinker (finding) [facility] NEGATED: Highlighted row [facility] Medical Equipment Procedure Code Equipment Code Equipment Original Text Equipment Identifier Dates EGD, with monitored anesthesia care Ligation clip, metallic [id number] FDA Start: 12-15-2023 Use as directed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 Miscellaneous Notes Left message for Kellie to return my call concerning her appointment today. I told patient I would send a mychart message she could respond to, or be transferred to General Surgery Nurse.Tisha Mane RN documented in this encounter [facility] 05-09-2025 Note Formatting of this n ote might be different from the original. The patient received a copy of Colonoscopy discharge instructions that contain information for how to contact the physician who performed the procedure and when to seek medical care. [facility] 05-09-2025 Miscellaneous Notes The patient received a copy of Colonoscopy discharge instructions that contain information for how to contact the physician who performed the procedure and when to seek medical care. documented in this encounter [facility] 05-09-2025 Attending History and physical note UPDATED PROCEDURAL SEDATION HISTORY AND PHYSICAL EXAMINATION SERVICE DATE: 05/09/2025 SERVICE TIME: 9:49 PHYSICAL EXAM MUST BE COMPLETED ON ADMISSION PROCEDURE: colonoscopy, possible biopsies Procedure Indications: history of colon polyps The History and Physical (completed in the past 30 days) has been reviewed and the patient has been examined. The contents accurately reflect the patient's condition with the following additions or revisions since the H&P was completed. ASA Class: ASA Class: Patient with severe systemic disease Examination indicates no changes. AIRWAY: Mouth opening greater than 3 fingerbreadths: Yes Neck Full Range of Motion: Yes LUNGS: Lungs clear to auscultation CARDIAC: Regular rhythm,Regular rate Provisional Diagnosis/Treatment Plan: colonoscopy, possible biopsies Sedation Goal: Moderate This H&P can be found in the Electronic Medical Record . SIGNATURE: Zari Sorenson MD PATIENT NAME: Kellie Dozier DATE: May 09, 2025 TIME: 9:50 AM Source Note - Zari Sorenson MD - 05/09/2025 9:45 AM EDT HISTORY AND PHYSICAL Kellie Dozier : 1945 REFERRING PHYSICIAN: No referring provider defined for this encounter. CHIEF COMPLAINT: Patient presents with: Consult: For colonoscopy, previous polyps HPI: Kellie is a 80 year old female referred for endoscopy. Kellie notes due for screening colonoscopy- hx of polyps (2020). Kellie denies abdominal pain. Kellie denies diarrhea. Kellie notes occasional constipation. -uses mylanta with good releif Kellie denies a change in bowel habits. Kellie denies melena. Kellie denies bright red blood per rectum. Kellie denies hemorrhoids. Kellie denies family history of colon issues. Kellie denies heartburn. Kellie denies dysphagia. Kellie denies a history of ulcers/ peptic ulcer disease. Kellie's medical history is significant for T2DM, MARYCHUY and osteopenia. Kellie follows with [facility] for A.Fib, HTN, HLD & CAD s/p stent x 4 (2008). Last OV 10/25, Last ECHO 07/26 EF: 55%. She denies CP, SOB, dizziness, palpitations, syncope, edema, recent hospitalizations Kellie has undergone prior endoscopy. Last colonoscopy was 09/[address] Calderon at [facility]. Sedation: Midazolam 3 mg IV, Fentanyl 50 micrograms IV Impression: - Three small polyps in the transverse colon,removed with a cold snare. Resected and retrieved.Clips (MR conditional) were placed. - Patent functional end-to-end colo-rectal anastomosis, characterized by healthy appearing mucosa. - The examination was otherwise normal on direct and retroflexion views. CONVERTED FINAL DIAGNOSIS Colon, transverse, polyps, biopsy Fragments of tubular adenoma and sessile serrated polyp. CURRENT MEDICATIONS Current Outpatient Medications Medication Sig SITagliptin phosphate (JANUVIA) 50 mg tablet Take 1 tablet by mouth once daily. losartan (COZAAR) 100 mg tablet Take 1 tablet by mouth once daily. insulin glargine 100 unit/mL (3 mL) Inject 30 Units subcutaneously every morning. Patient assistance med, may use flex pens glipiZIDE 2.5 mg tablet Take 1 tablet (2.5 mg) by mouth two times a day before meals. pravastatin (PRAVACHOL) 80 mg tablet Take 1 tablet by mouth once daily. verapamil ER (VERELAN PM) 300 mg CPCT Take 1 capsule by mouth daily at bedtime. cyanocobalamin (VITAMIN B-12) 1,000 mcg tab Take 1 tablet by mouth every other day. ondansetron orally disintegrating (ZOFRAN ODT) 4 mg disintegrating tablet Take 1 tablet by mouth every 6 hours as needed for nausea/vomiting. meclizine (ANTIVERT) 12.5 mg tab Take 1 tablet by mouth every 6 hours as needed (dizziness). nitroglycerin sublingual (NITROSTAT) 0.4 mg SL tablet Dissolve 1 tablet under the tongue as needed for chest pain. If no pain relief call 911. brimonidine (ALPHAGAN P) 0.15 % ophthalmic solution Use 1 Drop in both eyes two times a day. pyridoxine hcl(VITAMIN B-6 100 MG TAB) Take one(1) tablet daily. CALCIUM + D 600 MG-200 UNIT TAB Take 1 tablet by mouth once daily. insulin needles, DISPOSABLE, (PEN NEEDLE) 31 gauge x 5/16 Use as directed once daily as directed DM: yes Insulin: yes DX: E11.[address] (PROTONIX) 40 mg tablet Take 1 tablet by mouth every 12 hours. No current facility-administered medications for this visit. ALLERGIES: Amoxicillin, Fosamax [Alendronate Sodium], Metformin, and Shellfish PAST MEDICAL HISTORY PAST MEDICAL HISTORY Diagnosis Date Arthritis CAD (coronary artery disease) s/p stents CTS (carpal tunnel syndrome) Cystocele, midline 2006 Diverticulitis Duodenal ulcer 01/2024 Esophagitis, unspecified hiatal hernia, gastritis Essential hypertension, benign Gastrointestinal hemorrhage, unspecified gastrointestinal hemorrhage type 01/2024 History of colon polyps [facility] 12/16/2023 [place] Lung nodule 01/2024 Malignant neoplasm of breast (female), unspecified site 1998 Breast cancer right Mixed hyperlipidemia Osteoarthritis of right knee Osteopenia 05/21/2010 Paroxysmal SVT (supraventricular tachycardia) (HCC) Dr Marcelo Persistent atrial fibrillation (HCC) Post-menopausal bleeding 2006 Serrated polyp of colon TUBERCULIN TEST REACTION NO TBC 12/16/2005 Tubular adenoma of colon Type 2 diabetes mellitus without complication, without long-term current use of insulin (HCC) Unspecified constipation Unspecified glaucoma(365.9) Glaucoma Low tension Urinary retention PAST SURGICAL HISTORY PAST SURGICAL HISTORY Procedure Laterality Date APPENDECTOMY BREAST BX NEEDLE CORE RIGHT 06/17/2008 U/S needle core bx right axilla BREAST SURGERY HX CMBND ANTERPOST COLPORRAPHY W/CYSTO 2004 Bladder and rectum repair COLON SURGERY HX Diverticular disease COLONOSCOPY 2006 [facility] COLONOSCOPY 09/12/2014 no polyps, [...] HX HEART CATHETERIZATION 2009 stent x 4 LAPS COLECTOMY PRTL W/COLOPXTSTMY LW ANAST 11/12/2011 lap low anterior resection sigmoid for diverticular disease LUMPECTOMY/RADIOTHERAPY DIAG MAMM/A10 1998 Right breast PAST SURGICAL HISTORY OF 2023 endoscopy STEREOTACTIC CORE BIOPSY 06/11/2007 LEFT TONSILLECTOMY HX TOTAL ABDOMINAL HYSTERECT W/WO RMVL TUBE OVARY 1976 Hysterectomy, ANN No BSO FAMILY HISTORY FAMILY HISTORY Problem Relation Age of Onset Diabetes Mother Hypertension Mother Lipids Mother Stroke Mother Ischemic Heart Disease Mother DVT Father Breast Cancer Maternal Aunt SOCIAL HISTORY Social History Tobacco Use Smoking status: Never Smokeless tobacco: Never Vaping Use Vaping status: Never Used Substance Use Topics Alcohol use: Not Currently Drug use: Never REVIEW OF SYMPTOMS: REVIEW OF SYSTEMS: General: The patient denies fatigue, denies weight loss, denies weight gain, denies feeling hot, and feelings of cold. Eyes: The patient denies glaucoma, denies eye injury/surgery, + glasses or contacts. Ear/Nose/Throat: The patient denies allergies, denies hayfever, denies ear infections, and denies bloody noses. Cardiovascular: The patient denies chest pain, denies heart disease, denies high blood pressure, denies high cholesterol, and denies poor circulation. Respiratory: The patient denies tuberculosis, denies pneumonia, denies frequent cough, denies shortness of breath, and denies coughing up blood. Gastrointestinal: The patient denies difficulty swallowing, denies acid reflux, denies ulcers, denies jaundice/hepatitis, denies gallbladder problems, denies vomiting, denies black or tarry stools, denies hemorrhoids, denies bleeding from rectum, denies diverticulitis, denies constipation, denies diarrhea, denies loss of stool control, and denies hernias. Kidney/Bladder: The patient denies kidney stones, denies urine infections, and denies bloody urine. Skin: The patient denies a history of skin cancer, denies bleeding/changing moles, and denies a history of skin rash. Neurologic: The patient denies a history of epilepsy/convulsions, denies headaches, denies head/spinal injuries, and denies stroke/TIA. Psychiatric: The patient denies psychiatric medications, denies depression, and denies voices. Endocrine: The patient denies thyroid disorders, denies diabetes, and denies hormonal problems. Hematologic: The patient denies a history of bruising, denies bleeding, and denies anemia. Infections: The patient denies a history of measles and mumps, denies rheumatic fever, and denies sexually transmitted diseases. Musculoskeletal: The patient denies back pain/injury, denies back problems, denies sciatica, denies knee/foot trouble, denies arthritis, or denies gout. PHYSICAL EXAMINATION: General: The patient is 80 year old, female well nourished, well hydrated in no acute distress. The patient is oriented to time, place, and person. VITALS: Blood pressure 146/70, pulse 62, resp. rate 14, weight 70.5 kg (155 lb 6.4 oz), SpO2 98%. Body mass index is 26.67 kg/m . HEENT: Normal cephalic, ataumatic, pupils are equally round, sclera are anicteric, mucous membranes are moist, oropharynx is clear. Neck has no masses or asymmetry . Respiratory: Clear to auscultation. Cardiac: Regular rate and rhythm. Abdominal exam: Soft, nontender, with no palpable masses. No hepatosplenomegaly. No palpable hernias. Extremities: no clubbing or cyanosis LABORATORY VALUES: As Noted RADIOLOGIC STUDIES: As Noted Assessment IMPRESSION: screen for colon cancer, history of colon polyps PLAN: Patient was seen by PCP & scheduled for open access in [facility]. Pt was provided Golytely prep instructions which we reviewed. Patient instructed to contact PCP or ordering provider for instructions regarding diabetic medication, which may require adjustment during bowel preparation and/or day of procedure. I have explained to the patient the difference between IV conscious sedation and MAC anesthesia - and I have offered either, according to the patient's wishes. I have explained that with IV conscious sedation there is no anesthesia provider available and therefore there is a limitation of the amount of IV medications that can be given and that the patient may wake up in the middle of the procedure and/or experience pain/discomfort during the procedure. Further discussion was done and the patient was given the opportunity to ask questions and all questions were answered. Kellie chooses IV conscious sedation. Kellie was counseled that if there are changes in his/her medical condition, to let the office know if surgery should proceed. If there are changes in patient's medical condition from time of this encounter to the day of the procedure that preclude anesthesia, patient may have procedure cancelled for patient's safety. Diagnoses: (Z12.11) Screen for colon cancer (primary encounter diagnosis) (Z86.0100) History of colon polyps Portions of this documentation were copied and pasted from previous office visit notes in order to provide a cohesive continuity of the history. The note has been reviewed and edited and updated as necessary. Elizabeth Ortega APRN.OBSTETRICIAN/GYNECOLOGIST [facility] Work Phone: 05-09-2025 History and physical note HISTORY AND PHYSICAL Kellie Dozier : 1945 REFERRING PHYSICIAN: No referring provider defined for this encounter. CHIEF COMPLAINT: Patient presents with: Consult: For colonoscopy, previous polyps HPI: Kellie is a 80 year old female referred for endoscopy. Kellie notes due for screening colonoscopy- hx of polyps (2020). Kellie denies abdominal pain. Kellie denies diarrhea. Kellie notes occasional constipation. -uses mylanta with good releif Kellie denies a change in bowel habits. Kellie denies melena. Kellie denies bright red blood per rectum. Kellie denies hemorrhoids. Kellie denies family history of colon issues. Kellie denies heartburn. Kellie denies dysphagia. Kellie denies a history of ulcers/ peptic ulcer disease. Kellie's medical history is significant for T2DM, MARYCHUY and osteopenia. Kellie follows with [facility] for A.Fib, HTN, HLD & CAD s/p stent x 4 (2008). Last OV 10/25, Last ECHO 07/26 EF: 55%. She denies CP, SOB, dizziness, palpitations, syncope, edema, recent hospitalizations Kellie has undergone prior endoscopy. Last colonoscopy was 09/[address] Caldeorn at [facility]. Sedation: Midazolam 3 mg IV, Fentanyl 50 micrograms IV Impression: - Three small polyps in the transverse colon,removed with a cold snare. Resected and retrieved.Clips (MR conditional) were placed. - Patent functional end-to-end colo-rectal anastomosis, characterized by healthy appearing mucosa. - The examination was otherwise normal on direct and retroflexion views. CONVERTED FINAL DIAGNOSIS Colon, transverse, polyps, biopsy Fragments of tubular adenoma and sessile serrated polyp. CURRENT MEDICATIONS Current Outpatient Medications Medication Sig SITagliptin phosphate (JANUVIA) 50 mg tablet Take 1 tablet by mouth once daily. losartan (COZAAR) 100 mg tablet Take 1 tablet by mouth once daily. insulin glargine 100 unit/mL (3 mL) Inject 30 Units subcutaneously every morning. Patient assistance med, may use flex pens glipiZIDE 2.5 mg tablet Take 1 tablet (2.5 mg) by mouth two times a day before meals. pravastatin (PRAVACHOL) 80 mg tablet Take 1 tablet by mouth once daily. verapamil ER (VERELAN PM) 300 mg CPCT Take 1 capsule by mouth daily at bedtime. cyanocobalamin (VITAMIN B-12) 1,000 mcg tab Take 1 tablet by mouth every other day. ondansetron orally disintegrating (ZOFRAN ODT) 4 mg disintegrating tablet Take 1 tablet by mouth every 6 hours as needed for nausea/vomiting. meclizine (ANTIVERT) 12.5 mg tab Take 1 tablet by mouth every 6 hours as needed (dizziness). nitroglycerin sublingual (NITROSTAT) 0.4 mg SL tablet Dissolve 1 tablet under the tongue as needed for chest pain. If no pain relief call 911. brimonidine (ALPHAGAN P) 0.15 % ophthalmic solution Use 1 Drop in both eyes two times a day. pyridoxine hcl(VITAMIN B-6 100 MG TAB) Take one(1) tablet daily. CALCIUM + D 600 MG-200 UNIT TAB Take 1 tablet by mouth once daily. insulin needles, DISPOSABLE, (PEN NEEDLE) 31 gauge x 5/16 Use as directed once daily as directed DM: yes Insulin: yes DX: E11.[address] (PROTONIX) 40 mg tablet Take 1 tablet by mouth every 12 hours. No current facility-administered medications for this visit. ALLERGIES: Amoxicillin, Fosamax [Alendronate Sodium], Metformin, and Shellfish PAST MEDICAL HISTORY PAST MEDICAL HISTORY Diagnosis Date Arthritis CAD (coronary artery disease) s/p stents CTS (carpal tunnel syndrome) Cystocele, midline 2006 Diverticulitis Duodenal ulcer 01/2024 Esophagitis, unspecified hiatal hernia, gastritis Essential hypertension, benign Gastrointestinal hemorrhage, unspecified gastrointestinal hemorrhage type 01/2024 History of colon polyps [facility] 12/16/2023 [facility] Lung nodule 01/2024 Malignant neoplasm of breast (female), unspecified site 1998 Breast cancer right Mixed hyperlipidemia Osteoarthritis of right knee Osteopenia 05/21/2010 Paroxysmal SVT (supraventricular tachycardia) (HCC) Dr Marcelo Persistent atrial fibrillation (HCC) Post-menopausal bleeding 2007 Serrated polyp of colon TUBERCULIN TEST REACTION NO TBC 12/16/2005 Tubular adenoma of colon Type 2 diabetes mellitus without complication, without long-term current use of insulin (HCC) Unspecified constipation Unspecified glaucoma(365.9) Glaucoma Low tension Urinary retention PAST SURGICAL HISTORY PAST SURGICAL HISTORY Procedure Laterality Date APPENDECTOMY BREAST BX NEEDLE CORE RIGHT 06/17/2008 U/S needle core bx right axilla BREAST SURGERY HX CMBND ANTERPOST COLPORRAPHY W/CYSTO 2005 Bladder and rectum repair COLON SURGERY HX Diverticular disease COLONOSCOPY 2006 [facility] COLONOSCOPY 09/12/2014 no polyps, [...] 11/13/2016 EGD EYE SURGERY HX HEART CATHETERIZATION 2008 stent x 4 LAPS COLECTOMY PRTL W/COLOPXTSTMY LW ANAST 11/12/2011 lap low anterior resection sigmoid for diverticular disease LUMPECTOMY/RADIOTHERAPY DIAG MAMM/A10 1998 Right breast PAST SURGICAL HISTORY OF 2023 endoscopy STEREOTACTIC CORE BIOPSY 06/11/2007 LEFT TONSILLECTOMY HX TOTAL ABDOMINAL HYSTERECT W/WO RMVL TUBE OVARY 1976 Hysterectomy, ANN No BSO FAMILY HISTORY FAMILY HISTORY Problem Relation Age of Onset Diabetes Mother Hypertension Mother Lipids Mother Stroke Mother Ischemic Heart Disease Mother DVT Father Breast Cancer Maternal Aunt SOCIAL HISTORY Social History Tobacco Use Smoking status: Never Smokeless tobacco: Never Vaping Use Vaping status: Never Used Substance Use Topics Alcohol use: Not Currently Drug use: Never REVIEW OF SYMPTOMS: REVIEW OF SYSTEMS: General: The patient denies fatigue, denies weight loss, denies weight gain, denies feeling hot, and feelings of cold. Eyes: The patient denies glaucoma, denies eye injury/surgery, + glasses or contacts. Ear/Nose/Throat: The patient denies allergies, denies hayfever, denies ear infections, and denies bloody noses. Cardiovascular: The patient denies chest pain, denies heart disease, denies high blood pressure, denies high cholesterol, and denies poor circulation. Respiratory: The patient denies tuberculosis, denies pneumonia, denies frequent cough, denies shortness of breath, and denies coughing up blood. Gastrointestinal: The patient denies difficulty swallowing, denies acid reflux, denies ulcers, denies jaundice/hepatitis, denies gallbladder problems, denies vomiting, denies black or tarry stools, denies hemorrhoids, denies bleeding from rectum, denies diverticulitis, denies constipation, denies diarrhea, denies loss of stool control, and denies hernias. Kidney/Bladder: The patient denies kidney stones, denies urine infections, and denies bloody urine. Skin: The patient denies a history of skin cancer, denies bleeding/changing moles, and denies a history of skin rash. Neurologic: The patient denies a history of epilepsy/convulsions, denies headaches, denies head/spinal injuries, and denies stroke/TIA. Psychiatric: The patient denies psychiatric medications, denies depression, and denies voices. Endocrine: The patient denies thyroid disorders, denies diabetes, and denies hormonal problems. Hematologic: The patient denies a history of bruising, denies bleeding, and denies anemia. Infections: The patient denies a history of measles and mumps, denies rheumatic fever, and denies sexually transmitted diseases. Musculoskeletal: The patient denies back pain/injury, denies back problems, denies sciatica, denies knee/foot trouble, denies arthritis, or denies gout. PHYSICAL EXAMINATION: General: The patient is 80 year old, female well nourished, well hydrated in no acute distress. The patient is oriented to time, place, and person. VITALS: Blood pressure 146/70, pulse 62, resp. rate 14, weight 70.5 kg (155 lb 6.4 oz), SpO2 98%. Body mass index is 26.67 kg/m . HEENT: Normal cephalic, ataumatic, pupils are equally round, sclera are anicteric, mucous membranes are moist, oropharynx is clear. Neck has no masses or asymmetry . Respiratory: Clear to auscultation. Cardiac: Regular rate and rhythm. Abdominal exam: Soft, nontender, with no palpable masses. No hepatosplenomegaly. No palpable hernias. Extremities: no clubbing or cyanosis LABORATORY VALUES: As Noted RADIOLOGIC STUDIES: As Noted Assessment IMPRESSION: screen for colon cancer, history of colon polyps PLAN: Patient was seen by PCP & scheduled for open access in [facility]. Pt was provided Golytely prep instructions which we reviewed. Patient instructed to contact PCP or ordering provider for instructions regarding diabetic medication, which may require adjustment during bowel preparation and/or day of procedure. I have explained to the patient the difference between IV conscious sedation and MAC anesthesia - and I have offered either, according to the patient's wishes. I have explained that with IV conscious sedation there is no anesthesia provider available and therefore there is a limitation of the amount of IV medications that can be given and that the patient may wake up in the middle of the procedure and/or experience pain/discomfort during the procedure. Further discussion was done and the patient was given the opportunity to ask questions and all questions were answered. Kellie chooses IV conscious sedation. Kellie was counseled that if there are changes in his/her medical condition, to let the office know if surgery should proceed. If there are changes in patient's medical condition from time of this encounter to the day of the procedure that preclude anesthesia, patient may have procedure cancelled for patient's safety. Diagnoses: (Z12.11) Screen for colon cancer (primary encounter diagnosis) (Z86.0100) History of colon polyps Portions of this documentation were copied and pasted from previous office visit notes in order to provide a cohesive continuity of the history. The note has been reviewed and edited and updated as necessary. Elizabeth Ortega APRN.OBSTETRICIAN/GYNECOLOGIST [facility] 05-09-2025 History and physical note UPDATED PROCEDURAL SEDATION HISTORY AND PHYSICAL EXAMINATION SERVICE DATE: 05/09/2025 SERVICE TIME: 9:49 PHYSICAL EXAM MUST BE COMPLETED ON ADMISSION PROCEDURE: colonoscopy, possible biopsies Procedure Indications: history of colon polyps The History and Physical (completed in the past 30 days) has been reviewed and the patient has been examined. The contents accurately reflect the patient's condition with the following additions or revisions since the H&P was completed. ASA Class: ASA Class: Patient with severe systemic disease Examination indicates no changes. AIRWAY: Mouth opening greater than 3 fingerbreadths: Yes Neck Full Range of Motion: Yes LUNGS: Lungs clear to auscultation CARDIAC: Regular rhythm,Regular rate Provisional Diagnosis/Treatment Plan: colonoscopy, possible biopsies Sedation Goal: Moderate This H&P can be found in the Electronic Medical Record . SIGNATURE: Zari Sorenson MD PATIENT NAME: Kellie Dozier DATE: May 09, 2025 TIME: 9:50 AM Source Note - Zari Sorenson MD - 05/09/2025 9:45 AM EDT HISTORY AND PHYSICAL Kellie Dozier : 1945 REFERRING PHYSICIAN: No referring provider defined for this encounter. CHIEF COMPLAINT: Patient presents with: Consult: For colonoscopy, previous polyps HPI: Kellie is a 80 year old female referred for endoscopy. Kellie notes due for screening colonoscopy- hx of polyps (2020). Kellie denies abdominal pain. Kellie denies diarrhea. Kellie notes occasional constipation. -uses mylanta with good releif Kellie denies a change in bowel habits. Kellie denies melena. Kellie denies bright red blood per rectum. Kellie denies hemorrhoids. Kellie denies family history of colon issues. Kellie denies heartburn. Kellie denies dysphagia. Kellie denies a history of ulcers/ peptic ulcer disease. Kellie's medical history is significant for T2DM, MARYCHUY and osteopenia. Kellie follows with [facility] for A.Fib, HTN, HLD & CAD s/p stent x 4 (2008). Last OV 10/25, Last ECHO 07/26 EF: 55%. She denies CP, SOB, dizziness, palpitations, syncope, edema, recent hospitalizations Kellie has undergone prior endoscopy. Last colonoscopy was 09/[address] Calderon at [facility]. Sedation: Midazolam 3 mg IV, Fentanyl 50 micrograms IV Impression: - Three small polyps in the transverse colon,removed with a cold snare. Resected and retrieved.Clips (MR conditional) were placed. - Patent functional end-to-end colo-rectal anastomosis, characterized by healthy appearing mucosa. - The examination was otherwise normal on direct and retroflexion views. CONVERTED FINAL DIAGNOSIS Colon, transverse, polyps, biopsy Fragments of tubular adenoma and sessile serrated polyp. CURRENT MEDICATIONS Current Outpatient Medications Medication Sig SITagliptin phosphate (JANUVIA) 50 mg tablet Take 1 tablet by mouth once daily. losartan (COZAAR) 100 mg tablet Take 1 tablet by mouth once daily. insulin glargine 100 unit/mL (3 mL) Inject 30 Units subcutaneously every morning. Patient assistance med, may use flex pens glipiZIDE 2.5 mg tablet Take 1 tablet (2.5 mg) by mouth two times a day before meals. pravastatin (PRAVACHOL) 80 mg tablet Take 1 tablet by mouth once daily. verapamil ER (VERELAN PM) 300 mg CPCT Take 1 capsule by mouth daily at bedtime. cyanocobalamin (VITAMIN B-12) 1,000 mcg tab Take 1 tablet by mouth every other day. ondansetron orally disintegrating (ZOFRAN ODT) 4 mg disintegrating tablet Take 1 tablet by mouth every 6 hours as needed for nausea/vomiting. meclizine (ANTIVERT) 12.5 mg tab Take 1 tablet by mouth every 6 hours as needed (dizziness). nitroglycerin sublingual (NITROSTAT) 0.4 mg SL tablet Dissolve 1 tablet under the tongue as needed for chest pain. If no pain relief call 911. brimonidine (ALPHAGAN P) 0.15 % ophthalmic solution Use 1 Drop in both eyes two times a day. pyridoxine hcl(VITAMIN B-6 100 MG TAB) Take one(1) tablet daily. CALCIUM + D 600 MG-200 UNIT TAB Take 1 tablet by mouth once daily. insulin needles, DISPOSABLE, (PEN NEEDLE) 31 gauge x 5/16 Use as directed once daily as directed DM: yes Insulin: yes DX: E11.[address] (PROTONIX) 40 mg tablet Take 1 tablet by mouth every 12 hours. No current facility-administered medications for this visit. ALLERGIES: Amoxicillin, Fosamax [Alendronate Sodium], Metformin, and Shellfish PAST MEDICAL HISTORY PAST MEDICAL HISTORY Diagnosis Date Arthritis CAD (coronary artery disease) s/p stents CTS (carpal tunnel syndrome) Cystocele, midline 2006 Diverticulitis Duodenal ulcer 01/2024 Esophagitis, unspecified hiatal hernia, gastritis Essential hypertension, benign Gastrointestinal hemorrhage, unspecified gastrointestinal hemorrhage type 01/2024 History of colon polyps [facility], [facility] Hydroureter Lung nodule 01/2024 Malignant neoplasm of breast (female), unspecified site 1998 Breast cancer right Mixed hyperlipidemia Osteoarthritis of right knee Osteopenia 05/21/2010 Paroxysmal SVT (supraventricular tachycardia) (HCC) Dr Marcelo Persistent atrial fibrillation (HCC) Post-menopausal bleeding 2006 Serrated polyp of colon TUBERCULIN TEST REACTION NO TBC 12/16/2005 Tubular adenoma of colon Type 2 diabetes mellitus without complication, without long-term current use of insulin (HCC) Unspecified constipation Unspecified glaucoma(365.9) Glaucoma Low tension Urinary retention PAST SURGICAL HISTORY PAST SURGICAL HISTORY Procedure Laterality Date APPENDECTOMY BREAST BX NEEDLE CORE RIGHT 06/17/2008 U/S needle core bx right axilla BREAST SURGERY HX CMBND ANTERPOST COLPORRAPHY W/CYSTO 2004 Bladder and rectum repair COLON SURGERY HX Diverticular disease COLONOSCOPY 2006 [facility] COLONOSCOPY 09/12/2014 no polyps, [...] HX HEART CATHETERIZATION 2009 stent x 4 LAPS COLECTOMY PRTL W/COLOPXTSTMY LW ANAST 11/12/2011 lap low anterior resection sigmoid for diverticular disease LUMPECTOMY/RADIOTHERAPY DIAG MAMM/A10 1998 Right breast PAST SURGICAL HISTORY OF 2023 endoscopy STEREOTACTIC CORE BIOPSY 06/11/2007 LEFT TONSILLECTOMY HX TOTAL ABDOMINAL HYSTERECT W/WO RMVL TUBE OVARY 1976 Hysterectomy, ANN No BSO FAMILY HISTORY FAMILY HISTORY Problem Relation Age of Onset Diabetes Mother Hypertension Mother Lipids Mother Stroke Mother Ischemic Heart Disease Mother DVT Father Breast Cancer Maternal Aunt SOCIAL HISTORY Social History Tobacco Use Smoking status: Never Smokeless tobacco: Never Vaping Use Vaping status: Never Used Substance Use Topics Alcohol use: Not Currently Drug use: Never REVIEW OF SYMPTOMS: REVIEW OF SYSTEMS: General: The patient denies fatigue, denies weight loss, denies weight gain, denies feeling hot, and feelings of cold. Eyes: The patient denies glaucoma, denies eye injury/surgery, + glasses or contacts. Ear/Nose/Throat: The patient denies allergies, denies hayfever, denies ear infections, and denies bloody noses. Cardiovascular: The patient denies chest pain, denies heart disease, denies high blood pressure, denies high cholesterol, and denies poor circulation. Respiratory: The patient denies tuberculosis, denies pneumonia, denies frequent cough, denies shortness of breath, and denies coughing up blood. Gastrointestinal: The patient denies difficulty swallowing, denies acid reflux, denies ulcers, denies jaundice/hepatitis, denies gallbladder problems, denies vomiting, denies black or tarry stools, denies hemorrhoids, denies bleeding from rectum, denies diverticulitis, denies constipation, denies diarrhea, denies loss of stool control, and denies hernias. Kidney/Bladder: The patient denies kidney stones, denies urine infections, and denies bloody urine. Skin: The patient denies a history of skin cancer, denies bleeding/changing moles, and denies a history of skin rash. Neurologic: The patient denies a history of epilepsy/convulsions, denies headaches, denies head/spinal injuries, and denies stroke/TIA. Psychiatric: The patient denies psychiatric medications, denies depression, and denies voices. Endocrine: The patient denies thyroid disorders, denies diabetes, and denies hormonal problems. Hematologic: The patient denies a history of bruising, denies bleeding, and denies anemia. Infections: The patient denies a history of measles and mumps, denies rheumatic fever, and denies sexually transmitted diseases. Musculoskeletal: The patient denies back pain/injury, denies back problems, denies sciatica, denies knee/foot trouble, denies arthritis, or denies gout. PHYSICAL EXAMINATION: General: The patient is 80 year old, female well nourished, well hydrated in no acute distress. The patient is oriented to time, place, and person. VITALS: Blood pressure 146/70, pulse 62, resp. rate 14, weight 70.5 kg (155 lb 6.4 oz), SpO2 98%. Body mass index is 26.67 kg/m . HEENT: Normal cephalic, ataumatic, pupils are equally round, sclera are anicteric, mucous membranes are moist, oropharynx is clear. Neck has no masses or asymmetry . Respiratory: Clear to auscultation. Cardiac: Regular rate and rhythm. Abdominal exam: Soft, nontender, with no palpable masses. No hepatosplenomegaly. No palpable hernias. Extremities: no clubbing or cyanosis LABORATORY VALUES: As Noted RADIOLOGIC STUDIES: As Noted Assessment IMPRESSION: screen for colon cancer, history of colon polyps PLAN: Patient was seen by PCP & scheduled for open access in [facility]. Pt was provided Golytely prep instructions which we reviewed. Patient instructed to contact PCP or ordering provider for instructions regarding diabetic medication, which may require adjustment during bowel preparation and/or day of procedure. I have explained to the patient the difference between IV conscious sedation and MAC anesthesia - and I have offered either, according to the patient's wishes. I have explained that with IV conscious sedation there is no anesthesia provider available and therefore there is a limitation of the amount of IV medications that can be given and that the patient may wake up in the middle of the procedure and/or experience pain/discomfort during the procedure. Further discussion was done and the patient was given the opportunity to ask questions and all questions were answered. Kelile chooses IV conscious sedation. Kellie was counseled that if there are changes in his/her medical condition, to let the office know if surgery should proceed. If there are changes in patient's medical condition from time of this encounter to the day of the procedure that preclude anesthesia, patient may have procedure cancelled for patient's safety. Diagnoses: (Z12.11) Screen for colon cancer (primary encounter diagnosis) (Z86.0100) History of colon polyps Portions of this documentation were copied and pasted from previous office visit notes in order to provide a cohesive continuity of the history. The note has been reviewed and edited and updated as necessary. Elizabeth Ortega APRN.OBSTETRICIAN/GYNECOLOGIST HISTORY AND PHYSICAL Kellie Dozier : 1945 REFERRING PHYSICIAN: No referring provider defined for this encounter. CHIEF COMPLAINT: Patient presents with: Consult: For colonoscopy, previous polyps HPI: Kellie is a 80 year old female referred for endoscopy. Kellie notes due for screening colonoscopy- hx of polyps (2020). Kellie denies abdominal pain. Kellie denies diarrhea. Kellie notes occasional constipation. -uses mylanta with good releif Kellie denies a change in bowel habits. Kellie denies melena. Kellie denies bright red blood per rectum. Kellie denies hemorrhoids. Kellie denies family history of colon issues. Kellie denies heartburn. Kellie denies dysphagia. Kellie denies a history of ulcers/ peptic ulcer disease. Kellie's medical history is significant for T2DM, MARYCHUY and osteopenia. Kellie follows with [facility] for A.Fib, HTN, HLD & CAD s/p stent x 4 (2008). Last OV 10/25, Last ECHO 07/26 EF: 55%. She denies CP, SOB, dizziness, palpitations, syncope, edema, recent hospitalizations Kellie has undergone prior endoscopy. Last colonoscopy was 09/[address] Calderon at [facility]. Sedation: Midazolam 3 mg IV, Fentanyl 50 micrograms IV Impression: - Three small polyps in the transverse colon,removed with a cold snare. Resected and retrieved.Clips (MR conditional) were placed. - Patent functional end-to-end colo-rectal anastomosis, characterized by healthy appearing mucosa. - The examination was otherwise normal on direct and retroflexion views. CONVERTED FINAL DIAGNOSIS Colon, transverse, polyps, biopsy Fragments of tubular adenoma and sessile serrated polyp. CURRENT MEDICATIONS Current Outpatient Medications Medication Sig SITagliptin phosphate (JANUVIA) 50 mg tablet Take 1 tablet by mouth once daily. losartan (COZAAR) 100 mg tablet Take 1 tablet by mouth once daily. insulin glargine 100 unit/mL (3 mL) Inject 30 Units subcutaneously every morning. Patient assistance med, may use flex pens glipiZIDE 2.5 mg tablet Take 1 tablet (2.5 mg) by mouth two times a day before meals. pravastatin (PRAVACHOL) 80 mg tablet Take 1 tablet by mouth once daily. verapamil ER (VERELAN PM) 300 mg CPCT Take 1 capsule by mouth daily at bedtime. cyanocobalamin (VITAMIN B-12) 1,000 mcg tab Take 1 tablet by mouth every other day. ondansetron orally disintegrating (ZOFRAN ODT) 4 mg disintegrating tablet Take 1 tablet by mouth every 6 hours as needed for nausea/vomiting. meclizine (ANTIVERT) 12.5 mg tab Take 1 tablet by mouth every 6 hours as needed (dizziness). nitroglycerin sublingual (NITROSTAT) 0.4 mg SL tablet Dissolve 1 tablet under the tongue as needed for chest pain. If no pain relief call 911. brimonidine (ALPHAGAN P) 0.15 % ophthalmic solution Use 1 Drop in both eyes two times a day. pyridoxine hcl(VITAMIN B-6 100 MG TAB) Take one(1) tablet daily. CALCIUM + D 600 MG-200 UNIT TAB Take 1 tablet by mouth once daily. insulin needles, DISPOSABLE, (PEN NEEDLE) 31 gauge x 5/16 Use as directed once daily as directed DM: yes Insulin: yes DX: E11.[address] (PROTONIX) 40 mg tablet Take 1 tablet by mouth every 12 hours. No current facility-administered medications for this visit. ALLERGIES: Amoxicillin, Fosamax [Alendronate Sodium], Metformin, and Shellfish PAST MEDICAL HISTORY PAST MEDICAL HISTORY Diagnosis Date Arthritis CAD (coronary artery disease) s/p stents CTS (carpal tunnel syndrome) Cystocele, midline 2006 Diverticulitis Duodenal ulcer 01/2024 Esophagitis, unspecified hiatal hernia, gastritis Essential hypertension, benign Gastrointestinal hemorrhage, unspecified gastrointestinal hemorrhage type 01/2024 History of colon polyps [facility] bilateral 12/16/2023 Hydroureter Lung nodule 01/2024 Malignant neoplasm of breast (female), unspecified site 1998 Breast cancer right Mixed hyperlipidemia Osteoarthritis of right knee Osteopenia 05/21/2010 Paroxysmal SVT (supraventricular tachycardia) (HCC) Dr Marcelo Persistent atrial fibrillation (HCC) Post-menopausal bleeding 2007 Serrated polyp of colon TUBERCULIN TEST REACTION NO TBC 12/16/2005 Tubular adenoma of colon Type 2 diabetes mellitus without complication, without long-term current use of insulin (HCC) Unspecified constipation Unspecified glaucoma(365.9) Glaucoma Low tension Urinary retention PAST SURGICAL HISTORY PAST SURGICAL HISTORY Procedure Laterality Date APPENDECTOMY BREAST BX NEEDLE CORE RIGHT 06/17/2008 U/S needle core bx right axilla BREAST SURGERY HX CMBND ANTERPOST COLPORRAPHY W/CYSTO 2005 Bladder and rectum repair COLON SURGERY HX Diverticular disease COLONOSCOPY 2006 [place] COLONOSCOPY 09/12/2014 no polyps, [...] HX HEART CATHETERIZATION 2009 stent x 4 LAPS COLECTOMY PRTL W/COLOPXTSTMY LW ANAST 11/12/2011 lap low anterior resection sigmoid for diverticular disease LUMPECTOMY/RADIOTHERAPY DIAG MAMM/A10 1998 Right breast PAST SURGICAL HISTORY OF 2023 endoscopy STEREOTACTIC CORE BIOPSY 06/11/2007 LEFT TONSILLECTOMY HX TOTAL ABDOMINAL HYSTERECT W/WO RMVL TUBE OVARY 1976 Hysterectomy, ANN No BSO FAMILY HISTORY FAMILY HISTORY Problem Relation Age of Onset Diabetes Mother Hypertension Mother Lipids Mother Stroke Mother Ischemic Heart Disease Mother DVT Father Breast Cancer Maternal Aunt SOCIAL HISTORY Social History Tobacco Use Smoking status: Never Smokeless tobacco: Never Vaping Use Vaping status: Never Used Substance Use Topics Alcohol use: Not Currently Drug use: Never REVIEW OF SYMPTOMS: REVIEW OF SYSTEMS: General: The patient denies fatigue, denies weight loss, denies weight gain, denies feeling hot, and feelings of cold. Eyes: The patient denies glaucoma, denies eye injury/surgery, + glasses or contacts. Ear/Nose/Throat: The patient denies allergies, denies hayfever, denies ear infections, and denies bloody noses. Cardiovascular: The patient denies chest pain, denies heart disease, denies high blood pressure, denies high cholesterol, and denies poor circulation. Respiratory: The patient denies tuberculosis, denies pneumonia, denies frequent cough, denies shortness of breath, and denies coughing up blood. Gastrointestinal: The patient denies difficulty swallowing, denies acid reflux, denies ulcers, denies jaundice/hepatitis, denies gallbladder problems, denies vomiting, denies black or tarry stools, denies hemorrhoids, denies bleeding from rectum, denies diverticulitis, denies constipation, denies diarrhea, denies loss of stool control, and denies hernias. Kidney/Bladder: The patient denies kidney stones, denies urine infections, and denies bloody urine. Skin: The patient denies a history of skin cancer, denies bleeding/changing moles, and denies a history of skin rash. Neurologic: The patient denies a history of epilepsy/convulsions, denies headaches, denies head/spinal injuries, and denies stroke/TIA. Psychiatric: The patient denies psychiatric medications, denies depression, and denies voices. Endocrine: The patient denies thyroid disorders, denies diabetes, and denies hormonal problems. Hematologic: The patient denies a history of bruising, denies bleeding, and denies anemia. Infections: The patient denies a history of measles and mumps, denies rheumatic fever, and denies sexually transmitted diseases. Musculoskeletal: The patient denies back pain/injury, denies back problems, denies sciatica, denies knee/foot trouble, denies arthritis, or denies gout. PHYSICAL EXAMINATION: General: The patient is 80 year old, female well nourished, well hydrated in no acute distress. The patient is oriented to time, place, and person. VITALS: Blood pressure 146/70, pulse 62, resp. rate 14, weight 70.5 kg (155 lb 6.4 oz), SpO2 98%. Body mass index is 26.67 kg/m . HEENT: Normal cephalic, ataumatic, pupils are equally round, sclera are anicteric, mucous membranes are moist, oropharynx is clear. Neck has no masses or asymmetry . Respiratory: Clear to auscultation. Cardiac: Regular rate and rhythm. Abdominal exam: Soft, nontender, with no palpable masses. No hepatosplenomegaly. No palpable hernias. Extremities: no clubbing or cyanosis LABORATORY VALUES: As Noted RADIOLOGIC STUDIES: As Noted Assessment IMPRESSION: screen for colon cancer, history of colon polyps PLAN: Patient was seen by PCP & scheduled for open access in [facility]. Pt was provided Golytely prep instructions which we reviewed. Patient instructed to contact PCP or ordering provider for instructions regarding diabetic medication, which may require adjustment during bowel preparation and/or day of procedure. I have explained to the patient the difference between IV conscious sedation and MAC anesthesia - and I have offered either, according to the patient's wishes. I have explained that with IV conscious sedation there is no anesthesia provider available and therefore there is a limitation of the amount of IV medications that can be given and that the patient may wake up in the middle of the procedure and/or experience pain/discomfort during the procedure. Further discussion was done and the patient was given the opportunity to ask questions and all questions were answered. Kellie chooses IV conscious sedation. Kellie was counseled that if there are changes in his/her medical condition, to let the office know if surgery should proceed. If there are changes in patient's medical condition from time of this encounter to the day of the procedure that preclude anesthesia, patient may have procedure cancelled for patient's safety. Diagnoses: (Z12.11) Screen for colon cancer (primary encounter diagnosis) (Z86.0100) History of colon polyps Portions of this documentation were copied and pasted from previous office visit notes in order to provide a cohesive continuity of the history. The note has been reviewed and edited and updated as necessary. Elizabeth Ortega APRN.OBSTETRICIAN/GYNECOLOGIST documented in this encounter [facility] 05-04-2025 History of Present illness Narrative HISTORY AND PHYSICAL Kellie Dozier : 1945 REFERRING PHYSICIAN: No referring provider defined for this encounter. CHIEF COMPLAINT: Patient presents with: Consult: For colonoscopy, previous polyps HPI: Kellie is a 80 year old female referred for endoscopy. Kellie notes due for screening colonoscopy- hx of polyps (2020). Kellie denies abdominal pain. Kellie denies diarrhea. Kellie notes occasional constipation. -uses mylanta with good releif Kellie denies a change in bowel habits. Kellie denies melena. Kellie denies bright red blood per rectum. Kellie denies hemorrhoids. Kellie denies family history of colon issues. Kellie denies heartburn. Kellie denies dysphagia. Kellie denies a history of ulcers/ peptic ulcer disease. Kellie's medical history is significant for T2DM, MARYCHUY and osteopenia. Kellie follows with [facility] for A.Fib, HTN, HLD & CAD s/p stent x 4 (2008). Last OV 10/25, Last ECHO 07/26 EF: 55%. She denies CP, SOB, dizziness, palpitations, syncope, edema, recent hospitalizations Kellie has undergone prior endoscopy. Last colonoscopy was 09/[address] Calderon at [facility]. Sedation: Midazolam 3 mg IV, Fentanyl 50 micrograms IV Impression: - Three small polyps in the transverse colon,removed with a cold snare. Resected and retrieved.Clips (MR conditional) were placed. - Patent functional end-to-end colo-rectal anastomosis, characterized by healthy appearing mucosa. - The examination was otherwise normal on direct and retroflexion views. CONVERTED FINAL DIAGNOSIS Colon, transverse, polyps, biopsy Fragments of tubular adenoma and sessile serrated polyp. Current Outpatient Medications Medication Sig SITagliptin phosphate (JANUVIA) 50 mg tablet Take 1 tablet by mouth once daily. losartan (COZAAR) 100 mg tablet Take 1 tablet by mouth once daily. insulin glargine 100 unit/mL (3 mL) Inject 30 Units subcutaneously every morning. Patient assistance med, may use flex pens glipiZIDE 2.5 mg tablet Take 1 tablet (2.5 mg) by mouth two times a day before meals. pravastatin (PRAVACHOL) 80 mg tablet Take 1 tablet by mouth once daily. verapamil ER (VERELAN PM) 300 mg CPCT Take 1 capsule by mouth daily at bedtime. cyanocobalamin (VITAMIN B-12) 1,000 mcg tab Take 1 tablet by mouth every other day. ondansetron orally disintegrating (ZOFRAN ODT) 4 mg disintegrating tablet Take 1 tablet by mouth every 6 hours as needed for nausea/vomiting. meclizine (ANTIVERT) 12.5 mg tab Take 1 tablet by mouth every 6 hours as needed (dizziness). nitroglycerin sublingual (NITROSTAT) 0.4 mg SL tablet Dissolve 1 tablet under the tongue as needed for chest pain. If no pain relief call 911. brimonidine (ALPHAGAN P) 0.15 % ophthalmic solution Use 1 Drop in both eyes two times a day. pyridoxine hcl(VITAMIN B-6 100 MG TAB) Take one(1) tablet daily. CALCIUM + D 600 MG-200 UNIT TAB Take 1 tablet by mouth once daily. insulin needles, DISPOSABLE, (PEN NEEDLE) 31 gauge x 03/17 Use as directed once daily as directed DM: yes Insulin: yes DX: E11.[address] (PROTONIX) 40 mg tablet Take 1 tablet by mouth every 12 hours. No current facility-administered medications for this visit. ALLERGIES: Amoxicillin, Fosamax [Alendronate Sodium], Metformin, and Shellfish PAST MEDICAL HISTORY Diagnosis Date Arthritis CAD (coronary artery disease) s/p stents CTS (carpal tunnel syndrome) Cystocele, midline 2006 Diverticulitis Duodenal ulcer 01/2024 Esophagitis, unspecified hiatal hernia, gastritis Essential hypertension, benign Gastrointestinal hemorrhage, unspecified gastrointestinal hemorrhage type 01/2024 History of colon polyps History [facility], [facility] 12/16/2023 Hydroureter Lung nodule 01/2024 Malignant neoplasm of breast (female), unspecified site 1998 Breast cancer right Mixed hyperlipidemia Osteoarthritis of right knee Osteopenia 05/21/2010 Paroxysmal SVT (supraventricular tachycardia) (HCC) Dr Marcelo Persistent atrial fibrillation (HCC) Post-menopausal bleeding 2006 Serrated polyp of colon TUBERCULIN TEST REACTION NO TBC 12/16/2005 Tubular adenoma of colon Type 2 diabetes mellitus without complication, without long-term current use of insulin (HCC) Unspecified constipation Unspecified glaucoma(365.9) Glaucoma Low tension Urinary retention PAST SURGICAL HISTORY Procedure Laterality Date APPENDECTOMY BREAST BX NEEDLE CORE RIGHT 06/17/2008 U/S needle core bx right axilla BREAST SURGERY HX CMBND ANTERPOST COLPORRAPHY W/CYSTO 2004 Bladder and rectum repair COLON SURGERY HX Diverticular disease COLONOSCOPY 2006 [place] COLONOSCOPY 09/12/2014 no polyps, repeat due 2018 [...] HX HEART CATHETERIZATION 2009 stent x 4 LAPS COLECTOMY PRTL W/COLOPXTSTMY LW ANAST 11/12/2011 lap low anterior resection sigmoid for diverticular disease LUMPECTOMY/RADIOTHERAPY DIAG MAMM/A10 1998 Right breast PAST SURGICAL HISTORY OF 2023 endoscopy STEREOTACTIC CORE BIOPSY 06/11/2007 LEFT TONSILLECTOMY HX TOTAL ABDOMINAL HYSTERECT W/WO RMVL TUBE OVARY 1976 Hysterectomy, ANN No BSO FAMILY HISTORY Problem Relation Age of Onset Diabetes Mother Hypertension Mother Lipids Mother Stroke Mother Ischemic Heart Disease Mother DVT Father Breast Cancer Maternal Aunt Social History Tobacco Use Smoking status: Never Smokeless tobacco: Never Vaping Use Vaping status: Never Used Substance Use Topics Alcohol use: Not Currently Drug use: Never REVIEW OF SYMPTOMS: REVIEW OF SYSTEMS: General: The patient denies fatigue, denies weight loss, denies weight gain, denies feeling hot, and feelings of cold. Eyes: The patient denies glaucoma, denies eye injury/surgery, + glasses or contacts. Ear/Nose/Throat: The patient denies allergies, denies hayfever, denies ear infections, and denies bloody noses. Cardiovascular: The patient denies chest pain, denies heart disease, denies high blood pressure, denies high cholesterol, and denies poor circulation. Respiratory: The patient denies tuberculosis, denies pneumonia, denies frequent cough, denies shortness of breath, and denies coughing up blood. Gastrointestinal: The patient denies difficulty swallowing, denies acid reflux, denies ulcers, denies jaundice/hepatitis, denies gallbladder problems, denies vomiting, denies black or tarry stools, denies hemorrhoids, denies bleeding from rectum, denies diverticulitis, denies constipation, denies diarrhea, denies loss of stool control, and denies hernias. Kidney/Bladder: The patient denies kidney stones, denies urine infections, and denies bloody urine. Skin: The patient denies a history of skin cancer, denies bleeding/changing moles, and denies a history of skin rash. Neurologic: The patient denies a history of epilepsy/convulsions, denies headaches, denies head/spinal injuries, and denies stroke/TIA. Psychiatric: The patient denies psychiatric medications, denies depression, and denies voices. Endocrine: The patient denies thyroid disorders, denies diabetes, and denies hormonal problems. Hematologic: The patient denies a history of bruising, denies bleeding, and denies anemia. Infections: The patient denies a history of measles and mumps, denies rheumatic fever, and denies sexually transmitted diseases. Musculoskeletal: The patient denies back pain/injury, denies back problems, denies sciatica, denies knee/foot trouble, denies arthritis, or denies gout. PHYSICAL EXAMINATION: General: The patient is 80 year old, female well nourished, well hydrated in no acute distress. The patient is oriented to time, place, and person. VITALS: Blood pressure 146/70, pulse 62, resp. rate 14, weight 70.5 kg (155 lb 6.4 oz), SpO2 98%. Body mass index is 26.67 kg/m . HEENT: Normal cephalic, ataumatic, pupils are equally round, sclera are anicteric, mucous membranes are moist, oropharynx is clear. Neck has no masses or asymmetry . Respiratory: Clear to auscultation. Cardiac: Regular rate and rhythm. Abdominal exam: Soft, nontender, with no palpable masses. No hepatosplenomegaly. No palpable hernias. Extremities: no clubbing or cyanosis LABORATORY VALUES: As Noted RADIOLOGIC STUDIES: As Noted Assessment IMPRESSION: screen for colon cancer, history of colon polyps PLAN: Patient was seen by PCP & scheduled for open access in [facility]. Pt was provided Golytely prep instructions which we reviewed. Patient instructed to contact PCP or ordering provider for instructions regarding diabetic medication, which may require adjustment during bowel preparation and/or day of procedure. I have explained to the patient the difference between IV conscious sedation and MAC anesthesia - and I have offered either, according to the patient's wishes. I have explained that with IV conscious sedation there is no anesthesia provider available and therefore there is a limitation of the amount of IV medications that can be given and that the patient may wake up in the middle of the procedure and/or experience pain/discomfort during the procedure. Further discussion was done and the patient was given the opportunity to ask questions and all questions were answered. Kellie chooses IV conscious sedation. Kellie was counseled that if there are changes in his/her medical condition, to let the office know if surgery should proceed. If there are changes in patient's medical condition from time of this encounter to the day of the procedure that preclude anesthesia, patient may have procedure cancelled for patient's safety. Diagnoses: (Z12.11) Screen for colon cancer (primary encounter diagnosis) (Z86.0100) History of colon polyps Portions of this documentation were copied and pasted from previous office visit notes in order to provide a cohesive continuity of the history. The note has been reviewed and edited and updated as necessary. Elizabeth Ortega APRN.TOBY documented in this encounter [facility] 05-04-2025 Note HNO ID: [id number] Author: ELIZABETH ORTEGA APRN.CNP Service: ? Author Type: Nurse Practitioner Type: Progress Notes Filed: 05/04/2025 10:49 Note Text: HISTORY AND PHYSICAL Kellie Dozier : 1945 REFERRING PHYSICIAN: No referring provider defined for this encounter. CHIEF COMPLAINT: Patient presents with: Consult: For colonoscopy, previous polyps HPI: Kellie is a 80 year old female referred for endoscopy. Kellie notes due for screening colonoscopy- hx of polyps (2020). Kellie denies abdominal pain. Kellie denies diarrhea. Kellie notes occasional constipation. -uses mylanta with good releif Kellie denies a change in bowel habits. Kellie denies melena. Kellie denies bright red blood per rectum. Kellie denies hemorrhoids. Kellie denies family history of colon issues. Kellie denies heartburn. Kellie denies dysphagia. Kellie denies a history of ulcers/ peptic ulcer disease. Kellie's medical history is significant for T2DM, MARYCHUY and osteopenia. Kellie follows with [facility] for A.Fib, HTN, HLD AND CAD s/p stent x 4 (2008). Last OV 10/25, Last ECHO 07/26 EF: 55%. She denies CP, SOB, dizziness, palpitations, syncope, edema, recent hospitalizations Kellie has undergone prior endoscopy. Last colonoscopy was 09/[address] Calderon at [facility]. Sedation: Midazolam 3 mg IV, Fentanyl 50 micrograms IV Impression: - Three small polyps in the transverse colon,removed with a cold snare. Resected and retrieved.Clips (MR conditional) were placed. - Patent functional end-to-end colo-rectal anastomosis, characterized by healthy appearing mucosa. - The examination was otherwise normal on direct and retroflexion views. CONVERTED FINAL DIAGNOSIS Colon, transverse, polyps, biopsy Fragments of tubular adenoma and sessile serrated polyp. Current Outpatient Medications Medication Sig SITagliptin phosphate (JANUVIA) 50 mg tablet Take 1 tablet by mouth once daily. losartan (COZAAR) 100 mg tablet Take 1 tablet by mouth once daily. insulin glargine 100 unit/mL (3 mL) Inject 30 Units subcutaneously every morning. Patient assistance med, may use flex pens glipiZIDE 2.5 mg tablet Take 1 tablet (2.5 mg) by mouth two times a day before meals. pravastatin (PRAVACHOL) 80 mg tablet Take 1 tablet by mouth once daily. verapamil ER (VERELAN PM) 300 mg CPCT Take 1 capsule by mouth daily at bedtime. cyanocobalamin (VITAMIN B-12) 1,000 mcg tab Take 1 tablet by mouth every other day. ondansetron orally disintegrating (ZOFRAN ODT) 4 mg disintegrating tablet Take 1 tablet by mouth every 6 hours as needed for nausea/vomiting. meclizine (ANTIVERT) 12.5 mg tab Take 1 tablet by mouth every 6 hours as needed (dizziness). nitroglycerin sublingual (NITROSTAT) 0.4 mg SL tablet Dissolve 1 tablet under the tongue as needed for chest pain. If no pain relief call 911. brimonidine (ALPHAGAN P) 0.15 % ophthalmic solution Use 1 Drop in both eyes two times a day. pyridoxine hcl(VITAMIN B-6 100 MG TAB) Take one(1) tablet daily. CALCIUM + D 600 MG-200 UNIT TAB Take 1 tablet by mouth once daily. insulin needles, DISPOSABLE, (PEN NEEDLE) 31 gauge x 5/16 Use as directed once daily as directed DM: yes Insulin: yes DX: E11.[address] (PROTONIX) 40 mg tablet Take 1 tablet by mouth every 12 hours. No current facility-administered medications for this visit. ALLERGIES: Amoxicillin, Fosamax [Alendronate Sodium], Metformin, and Shellfish PAST MEDICAL HISTORY Diagnosis Date Arthritis CAD (coronary artery disease) s/p stents CTS (carpal tunnel syndrome) Cystocele, midline 2006 Diverticulitis Duodenal ulcer 01/2024 Esophagitis, unspecified hiatal hernia, gastritis Essential hypertension, benign Gastrointestinal hemorrhage, unspecified gastrointestinal hemorrhage type 01/2024 History of colon polyps History of percutaneous left heart catheterization 06/24/2011 done at [facility] Hydronephrosis, bilateral 12/16/2023 Hydroureter Lung nodule 01/2024 Malignant neoplasm of breast (female), unspecified site 1998 Breast cancer right Mixed hyperlipidemia Osteoarthritis of right knee Osteopenia 05/21/2010 Paroxysmal SVT (supraventricular tachycardia) (HCC) Dr Marcelo Persistent atrial fibrillation (HCC) Post-menopausal bleeding 2006 Serrated polyp of colon TUBERCULIN TEST REACTION NO TBC 12/16/2005 Tubular adenoma of colon Type 2 diabetes mellitus without complication, without long-term current use of insulin (HCC) Unspecified constipation Unspecified glaucoma(365.9) Glaucoma Low tension Urinary retention PAST SURGICAL HISTORY Procedure Laterality Date APPENDECTOMY BREAST BX NEEDLE CORE RIGHT 06/17/2008 U/S needle core bx right axilla BREAST SURGERY HX CMBND ANTERPOST COLPORRAPHY W/CYSTO 2004 Bladder and rectum repair COLON SURGERY HX Diverticular disease COLONOSCOPY 2006 [facility] COLONOSCOPY 09/12/2014 no polyps, repeat d (more content not included)... [facility] 05-03-2025 Telephone encounter Note Pt notified of results/provider instructions. She verbalized understanding. Brittney Hinton LPN [facility] 05-03-2025 Miscellaneous Notes Pt notified of results/provider instructions. She verbalized understanding. Brittney Hinton LPN Can we please let patient know that I received her A1C back, which is 8.1 (previously 8.3). Lets go ahead and increase the januvia to 50 mg daily. I sent a new prescription to the pharmacy. She can use two of her current tablets until she picks up the new prescription. She will need an A1C in 3 months. Please sent us blood sugars in 2 weeks. Raisa Maradiaga APRN.CNP documented in this encounter [facility] 05-03-2025 Telephone encounter Note Can we please let patient know that I received her A1C back, which is 8.1 (previously 8.3). Lets go ahead and increase the januvia to 50 mg daily. I sent a new prescription to the pharmacy. She can use two of her current tablets until she picks up the new prescription. She will need an A1C in 3 months. Please sent us blood sugars in 2 weeks. Raisa Maradiaga APRN.TOBY [facility] 05-01-2025 Instructions Raisa Maradiaga APRN.CNP - 05/01/2025 2:13 PM EDT Follow up in 2 weeks Lab work A1C Increased Losartan to 100 mg daily one tab by mouth Bring your home blood pressure machine on your next visit documented in this encounter [facility] 05-01-2025 Note HNO ID: [id number] Author: RAISA MARADIAGA APRN.CNP Service: ? Author Type: Nurse Practitioner Type: Progress Notes Filed: 05/01/2025 20:16 Note Text: This is a 80 year old female who presents today with: Patient presents with: Recheck: 2 month follow up HISTORY OF PRESENT ILLNESS: Kellie Dozier is a 80 year old female. Patient presents with: Recheck: 2 month follow up Pt is following up on her blood pressure check up. Unable to bring her HBPM at this visit. HTN: Patient is compliant with meds Yes Monitors bp at home: Yes. Sometimes twice a day Denies side effects: No. Chest pain: No. Dyspnea: No. Edema: No. Palpitations: No. Syncope: No. Headache: No. Dizziness: No. PAST MEDICAL HISTORY: PAST MEDICAL HISTORY Diagnosis Date Arthritis CAD (coronary artery disease) s/p stents CTS (carpal tunnel syndrome) Cystocele, midline 2006 Diverticulitis Duodenal ulcer 01/2024 Esophagitis, unspecified hiatal hernia, gastritis Essential hypertension, benign Gastrointestinal hemorrhage, unspecified gastrointestinal hemorrhage type 01/2024 History of colon polyps [facility], [facility] 12/16/2023 Hydroureter Lung nodule 01/2024 Malignant neoplasm of breast (female), unspecified site 1998 Breast cancer right Mixed hyperlipidemia Osteoarthritis of right knee Osteopenia 05/21/2010 Paroxysmal SVT (supraventricular tachycardia) (HCC) Dr Marcelo Persistent atrial fibrillation (HCC) Post-menopausal bleeding 2006 Serrated polyp of colon TUBERCULIN TEST REACTION NO TBC 12/16/2005 Tubular adenoma of colon Type 2 diabetes mellitus without complication, without long-term current use of insulin (HCC) Unspecified constipation Unspecified glaucoma(365.9) Glaucoma Low tension Urinary retention PAST SURGICAL HISTORY Procedure Laterality Date APPENDECTOMY BREAST BX NEEDLE CORE RIGHT 06/17/2008 U/S needle core bx right axilla BREAST SURGERY HX CMBND ANTERPOST COLPORRAPHY W/CYSTO 2004 Bladder and rectum repair COLON SURGERY HX Diverticular disease COLONOSCOPY 2006 [facility] COLONOSCOPY 09/12/2014 no polyps, repeat [...] HX HEART CATHETERIZATION 2009 stent x 4 LAPS COLECTOMY PRTL W/COLOPXTSTMY LW ANAST 11/12/2011 lap low anterior resection sigmoid for diverticular disease LUMPECTOMY/RADIOTHERAPY DIAG MAMM/A10 1998 Right breast PAST SURGICAL HISTORY OF 2023 endoscopy STEREOTACTIC CORE BIOPSY 06/11/2007 LEFT TONSILLECTOMY HX TOTAL ABDOMINAL HYSTERECT W/WO RMVL TUBE OVARY 1975 Hysterectomy, ANN No BSO ALLERGIES Amoxicillin, Fosamax [Alendronate Sodium], Metformin, and Shellfish MEDICATIONS Current Outpatient Medications Medication Sig insulin glargine 100 unit/mL (3 mL) Inject 30 Units subcutaneously every morning. Patient assistance med, may use flex pens insulin needles, DISPOSABLE, (PEN NEEDLE) 31 gauge x 5/16 Use as directed once daily as directed DM: yes Insulin: yes DX: E11.9 losartan (COZAAR) 50 mg tablet Take 1.5 tablets by mouth once daily. SITagliptin phosphate (JANUVIA) 25 mg tablet Take 1 tablet by mouth once daily. glipiZIDE 2.5 mg tablet Take 1 tablet (2.5 mg) by mouth two times a day before meals. pravastatin (PRAVACHOL) 80 mg tablet Take 1 tablet by mouth once daily. verapamil ER (VERELAN PM) 300 mg CPCT Take 1 capsule by mouth daily at bedtime. cyanocobalamin (VITAMIN B-12) 1,000 mcg tab Take 1 tablet by mouth every other day. pantoprazole DR (PROTONIX) 40 mg tablet Take 1 tablet by mouth every 12 hours. ondansetron orally disintegrating (ZOFRAN ODT) 4 mg disintegrating tablet Take 1 tablet by mouth every 6 hours as needed for nausea/vomiting. meclizine (ANTIVERT) 12.5 mg tab Take 1 tablet by mouth every 6 hours as needed (dizziness). nitroglycerin sublingual (NITROSTAT) 0.4 mg SL tablet Dissolve 1 tablet under the tongue as needed for chest pain. If no pain relief call 911. brimonidine (ALPHAGAN P) 0.15 % ophthalmic solution Use 1 Drop in both eyes two times a day. pyridoxine hcl(VITAMIN B-6 100 MG TAB) Take one(1) tablet daily. CALCIUM + D 600 MG-200 UNIT TAB Take 1 tablet by mouth once daily. No current facility-administered medications for this visit. FAMILY HISTORY Problem Relation Age of Onset Diabetes Mother Hypertension Mother Lipids Mother Stroke Mother Ischemic Heart Diseas (more content not included)... [facility] 05-01-2025 History of Present illness Narrative This is a 80 year old female who presents today with: Patient presents with: Recheck: 2 month follow up HISTORY OF PRESENT ILLNESS: Kellie Dozier is a 80 year old female. Patient presents with: Recheck: 2 month follow up Pt is following up on her blood pressure check up. Unable to bring her HBPM at this visit. HTN: Patient is compliant with meds Yes Monitors bp at home: Yes. Sometimes twice a day Denies side effects: No. Chest pain: No. Dyspnea: No. Edema: No. Palpitations: No. Syncope: No. Headache: No. Dizziness: No. PAST MEDICAL HISTORY: PAST MEDICAL HISTORY Diagnosis Date Arthritis CAD (coronary artery disease) s/p stents CTS (carpal tunnel syndrome) Cystocele, midline 2006 Diverticulitis Duodenal ulcer 01/2024 Esophagitis, unspecified hiatal hernia, gastritis Essential hypertension, benign Gastrointestinal hemorrhage, unspecified gastrointestinal hemorrhage type 01/2024 History of colon polyps History of percutaneous left heart catheterization 06/24/2011 done at [facility] Hydronephrosis, bilateral 12/16/2023 Hydroureter Lung nodule 01/2024 Malignant neoplasm of breast (female), unspecified site 1998 Breast cancer right Mixed hyperlipidemia Osteoarthritis of right knee Osteopenia 05/21/2010 Paroxysmal SVT (supraventricular tachycardia) (HCC) Dr Marcelo Persistent atrial fibrillation (HCC) Post-menopausal bleeding 2006 Serrated polyp of colon TUBERCULIN TEST REACTION NO TBC 12/16/2005 Tubular adenoma of colon Type 2 diabetes mellitus without complication, without long-term current use of insulin (HCC) Unspecified constipation Unspecified glaucoma(365.9) Glaucoma Low tension Urinary retention PAST SURGICAL HISTORY Procedure Laterality Date APPENDECTOMY BREAST BX NEEDLE CORE RIGHT 06/17/2008 U/S needle core bx right axilla BREAST SURGERY HX CMBND ANTERPOST COLPORRAPHY W/CYSTO 2005 Bladder and rectum repair COLON SURGERY HX Diverticular disease COLONOSCOPY 2006 [place] COLONOSCOPY 09/12/2014 no polyps, repeat due 2018 [...] 11/13/2016 EGD EYE SURGERY HX HEART CATHETERIZATION 2008 stent x 4 LAPS COLECTOMY PRTL W/COLOPXTSTMY LW ANAST 11/12/2011 lap low anterior resection sigmoid for diverticular disease LUMPECTOMY/RADIOTHERAPY DIAG MAMM/A10 1998 Right breast PAST SURGICAL HISTORY OF 2023 endoscopy STEREOTACTIC CORE BIOPSY 06/11/2007 LEFT TONSILLECTOMY HX TOTAL ABDOMINAL HYSTERECT W/WO RMVL TUBE OVARY 1975 Hysterectomy, ANN No BSO ALLERGIES Amoxicillin, Fosamax [Alendronate Sodium], Metformin, and Shellfish MEDICATIONS Current Outpatient Medications Medication Sig insulin glargine 100 unit/mL (3 mL) Inject 30 Units subcutaneously every morning. Patient assistance med, may use flex pens insulin needles, DISPOSABLE, (PEN NEEDLE) 31 gauge x 5/16 Use as directed once daily as directed DM: yes Insulin: yes DX: E11.9 losartan (COZAAR) 50 mg tablet Take 1.5 tablets by mouth once daily. SITagliptin phosphate (JANUVIA) 25 mg tablet Take 1 tablet by mouth once daily. glipiZIDE 2.5 mg tablet Take 1 tablet (2.5 mg) by mouth two times a day before meals. pravastatin (PRAVACHOL) 80 mg tablet Take 1 tablet by mouth once daily. verapamil ER (VERELAN PM) 300 mg CPCT Take 1 capsule by mouth daily at bedtime. cyanocobalamin (VITAMIN B-12) 1,000 mcg tab Take 1 tablet by mouth every other day. pantoprazole DR (PROTONIX) 40 mg tablet Take 1 tablet by mouth every 12 hours. ondansetron orally disintegrating (ZOFRAN ODT) 4 mg disintegrating tablet Take 1 tablet by mouth every 6 hours as needed for nausea/vomiting. meclizine (ANTIVERT) 12.5 mg tab Take 1 tablet by mouth every 6 hours as needed (dizziness). nitroglycerin sublingual (NITROSTAT) 0.4 mg SL tablet Dissolve 1 tablet under the tongue as needed for chest pain. If no pain relief call 911. brimonidine (ALPHAGAN P) 0.15 % ophthalmic solution Use 1 Drop in both eyes two times a day. pyridoxine hcl(VITAMIN B-6 100 MG TAB) Take one(1) tablet daily. CALCIUM + D 600 MG-200 UNIT TAB Take 1 tablet by mouth once daily. No current facility-administered medications for this visit. FAMILY HISTORY Problem Relation Age of Onset Diabetes Mother Hypertension Mother Lipids Mother Stroke Mother Ischemic Heart Disease Mother DVT Father Breast Cancer Maternal Aunt Social History Tobacco Use Smoking status: Never Smokeless tobacco: Never Vaping Use Vaping status: Never Used Substance Use Topics Alcohol use: Not Currently Drug use: Never EXAM: BP 179/65 Pulse 66 Resp 16 Wt 70.8 kg (156 lb) SpO2 95% BMI 26.78 kg/m PHYSICAL EXAM: General Appearance: Well appearing, alert, in no acute distress, well-hydrated, well nourished.. Skin: Skin color, texture, turgor normal, no suspicious rashes or lesions. Lungs: Lungs clear to auscultation. No wheezing, rhonchi, rales.. Heart: RRR without murmur, gallop, or rubs. No ectopy. Abdomen: Normal abdominal exam, Abdomen soft, non-tender. Bowel sounds normal. No masses, organomegaly. Extremities: No deformities, edema, skin discoloration, clubbing or cyanosis. Musculoskeletal: No joint swelling, deformity, or tenderness. Neurologic: Gait normal. Sensation grossly intact. ASSESSMENT/PLAN: 1. Essential hypertension - ICD9: 401.9, ICD10: I10 (primary diagnosis) - Uncontrolled - Continue medications, increasing losartan to 100 mg - Recommend home blood pressure monitoring, to bring results to next visit - Encouraged sodium restriction, DASH or Mediterranean diet - Recommend regular aerobic exercise Recheck in 2 weeks. 2. Type 2 diabetes mellitus without complication, with long-term current use of insulin (HCC) - ICD9: 250.00, V58.67, ICD10: E11.9, Z79.4 - Uncontrolled Getting updated A1C today. - Continue current medications - Blood glucose monitoring on a twice daily schedule - Counseled on healthy diet and regular exercise 3. Mixed hyperlipidemia - ICD9: 272.2, ICD10: E78.2 - Controlled - Continue current medications - Counseled on healthy diet and regular exercise Discussed treatment plan and patient voices understanding. Patient's questions answered appropriately. Medications and potential side effects were discussed and patient voices understanding. Return to the office as scheduled or as needed for worsening/no improvement. Raisa Maradiaga APRN.OBSTETRICIAN/GYNECOLOGIST documented in this encounter [facility] 03-30-2025 Instructions Genet Stahl - 03/30/2025 12:43 PM EDT COLONOSCOPY BOWEL PREPARATION INSTRUCTIONS GOLYTELY/NULYTELY/TRILYTE/COLYTE Your doctor has scheduled you for a colonoscopy. To have a successful colonoscopy, you must have a clean colon, that is empty. A clean colon allows your doctor to see the entire colon & diagnose issues like polyps or cancer. For doctors, a clean colon is like driving on a [place] day; a dirty colon like driving in a storm. It is very important that you follow these instructions exactly, or your colonoscopy might not be as effective, could be canceled, and you may need to do the bowel prep and the colonoscopy again. TRANSPORTATION REQUIREMENTS You are receiving IV sedation. For your safety, a responsible adult escort must accompany you to and from your procedure: Your adult escort MUST be present with you at check-in for your colonoscopy. Your adult escort MUST remain in the endoscopy area until you are discharged. Your adult escort MUST transport you home once you are discharged. You are NOT allowed to operate any form of transportation (i.e. drive a car, bicycle, etc.) or leave the Endoscopy Center ALONE. It is not safe to do so. If you cannot meet these requirements, your procedure will be canceled. MEDICATION REQUIREMENTS For your safety, certain medications will need to be stopped or adjusted before you can have your procedure: BLOOD THINNERS: If you take blood thinners, such as Coumadin (warfarin), Plavix (clopidogrel), Ticlid (ticlopidine hydrochloride), Agrylin (anagrelide), Xarelto (Rivaroxaban), Pradaxa (Dabigatran), Eliquis (Apixaban), or Effient (Prasugrel), contact the physician who is prescribing these medications at least 2 weeks prior to your procedure to discuss any necessary adjustments. DIABETES: If you take medications for diabetes, your dosage may need to be adjusted. If you are being treated for diabetes with insulin, diabetic pills, or other injectable medications do not take your REGULAR dose after midnight on the day of your procedure. If you are taking any other types of insulin such as Lantus, Humalog, NPH (long-acting insulin), or 70/30 insulin, take half your normal dose the day before your procedure. DIABETES/WEIGHT MANAGEMENT: If you take medications for weight-loss, your dosage may need to be adjusted Contact the doctor who prescribes this medication for further instructions. If you take medications for weight-loss like semaglutide (Ozempic, Wegovy, Rybelsus), dulaglutide (Trulicity), liraglutide (Victoza, Saxenda), exenatide (Byetta, Bydureon), or lixisenatide (Adylyxin), stop your medication 1 week prior to your procedure. If you take medications like canagliflozin (Invokana), dapagliflozin (Farxiga, Forxiga), empagliflozin (Jardiance), stop your medication 3 days prior to your procedure. If you take ertugliflozin (Steglatro) stop your medication 4 days prior to your procedure. IRON: If you take iron pills, STOP them 1 week BEFORE your procedure, may resume after. OTHER MEDS: May take all other medications (including aspirin, antibiotics, water pills / diuretics like Lasix or Metolozone, blood pressure meds, etc.) at their usual scheduled time with a sip of water. DIET REQUIREMENTS The day before your colonoscopy, you may have a clear liquid diet (see below). The day of your colonoscopy, you may continue a clear liquid diet until 3 hours before your colonoscopy. Within 3 hours of your colonoscopy, take only any medications (as above) with a sip of water. Clear Liquid Diet Broth (chicken, beef or vegetable broth or bullion. Just the broth, no solids). Water Coffee or Tea (NO milk or creamer), but sugar and sugar substitutes are allowed. Clear liquids including clear, yellow, green, blue (NO red, NO orange, NO purple) Sodas / soft drinks Gatorade or other sports drinks Pramod-Aid or flavored drinks Plain Jell-O or other gelatins Fruit juice (strained; no-pulp) Popsicles or hard candy BOWEL PREPARATION (GOLYTELY/NULYTELY/TRILYTE/COLYTE) Split Dosing Bowel Prep: This means drinking your bowel prep in two doses. Split dosing helps clean your colon better and makes it less likely that your procedure will be canceled. Fill your prescription for Golytely/Nulytely/Trilyte/Colyte: The afternoon before your colonoscopy, mix the solution and refrigerate. You may add the flavor pack (if present) that came with the bowel preparation. Do not add ice, sugar, or other flavorings to the solution. You will drink your prep in two doses, by several hours. On the evening before your colonoscopy: 1. 6 PM drink the first half of the bowel preparation solution. Drink one 8-ounce glass every 15 minutes. 2. Six hours before your colonoscopy, drink the second half of the solution. Drink one 8-ounce glass every 15 minutes. 3. You may continue a clear liquid diet until 3 hours before your colonoscopy. Bowel prep can work differently from person to person. Some people's bowels move slowly and they may need different instructions. Please see your doctor in office or virtually for personalized bowel prep instructions if you have: Medical condition that needs special accommodations Had a poor bowel prep results or failed bowel prep attempts in the past. Had difficulty with anesthesia during the procedure. FREQUENTLY ASKED QUESTIONS Q: What if I suffer from constipation? A: Recommend taking extra laxatives to resolve your constipation days prior to entering the bowel prep day. Q: What if have had prior poor preps results in past? A: Contact your physician as you will likely need additional bowel prep instructions. Q: What if I have motility issues like Parkinson's, MS (multiple sclerosis), wheelchair dependent, etc.? or on medications that slow bowel emptying (narcotics, gabapentin, anticholinergic medications etc.) A: Contact your physician as you will likely need extra time and additional laxatives to complete your bowel prep. Q: What if I cannot drink large volume of liquid? A: Start your prep 2-3 hours earlier to allow yourself more time to complete the entire prep. Q: What if I can't finish my bowel prep? A: If you cannot finish your entire bowel prep, it is likely that your colonoscopy will need to be rescheduled due to poor prep quality. Q: What if I had bariatric surgery? Do I still have to complete the entire prep? A: Yes, gastric bypass surgery involves the stomach & small bowel. You may need to drink smaller amounts, slower (may need more time to complete your bowel prep). Gastric bypass does not alter the length of your colon so you will need to complete the entire bowel prep, it may just take longer time to complete it. Q: What if I am on dialysis? A: Please consult your lime boiler prior to scheduling to get instructions pertinent to you. In general, dialysis patients take the Taggableytely bowel prep and have the procedure same day of their dialysis (colonoscopy in AM, dialysis in PM). Q: How do I know if something is considered as clear liquid diet? A: If you can pour it in a glass and you can see through it, it is considered clear liquid Q: Can I eat nuts, seeds, beans, popcorn, dried fruits, vegetables & fruits that have skin peel? A: No, you will need to not eat these items starting 3 days prior to procedure. Q: Can I take Uber/Lyft/taxi/bus home? A: An adult MUST be present with you at check-in for your colonoscopy and remain in the endoscopy area until you are discharged. You can take Uber home only if this adult escort is with you at check in, remain in the endoscopy area until you are discharged, and takes the Uber with you to home. Q: Can I sleep it off here and drive myself home? A: No, you must have an adult with you at time of procedure check in, remain in the endoscopy center during your procedure, and drive you home. You cannot drive a vehicle after your procedure the rest of the day. documented in this encounter [facility] 03-30-2025 Note HNO ID: [id number] Author: ?, ?, ? Service: ? Author Type: ? Type: Progress Notes Filed: 03/30/2025 12:50 Note Text: POPULATION HEALTH NAVIGATION OUTREACH Action/FYI Patient outreach for Hcc gaps; [place], AWV. Spoke with patient and scheduled colonoscopy, and wellness. Eye exam is scheduled for 04/07/25. Reason for Outreach Care Gap/HCC or Scheduling Wellness Visits Care Gaps due: Medicare Annual Wellness Visit Colorectal Cancer Screening Diabetic Eye Exam Patient Contacted: Spoke to patient/parent/or legal guardian Patient identified by name and : Yes Care Gap/HCC/Scheduling Wellness actions taken: Patient scheduled/pended orders: Medicare Annual Wellness Visit Colorectal Cancer Screening 05/08/2025 in [facility] with RAISA MARADIAGA - 2 month BP check [facility] ZAR[facility]OREN[facility] - [facility] - wellness , hcc gaps [facility] [facility] - Granulomatous disease (HCC) [D71]; Lung nodules [R91.8]; History of breast cancer [Z85.3] HCC related Navigation Signature: Genet Mosley March 30, 2025 12:26 PM [facility] 03-30-2025 History of Present illness Narrative POPULATION HEALTH NAVIGATION OUTREACH Action/FYI Patient outreach for Hcc gaps; [place], [place]. Spoke with patient and scheduled colonoscopy, and wellness. Eye exam is scheduled for 04/07/25. Reason for Outreach Care Gap/HCC or Scheduling Wellness Visits Care Gaps due: Medicare Annual Wellness Visit Colorectal Cancer Screening Diabetic Eye Exam Patient Contacted: Spoke to patient/parent/or legal guardian Patient identified by name and : Yes Care Gap/HCC/Scheduling Wellness actions taken: Patient scheduled/pended orders: Medicare Annual Wellness Visit [facility] - 2 month BP check [facility]/09[facility] ZARI SORENSON - colonoscopy 08/19/2025 in [facility] with SANTO LOVE - wellness , hcc gaps [facility] [facility] ([facility] - Granulomatous disease (HCC) [D71]; Lung nodules [R91.8]; History of breast cancer [Z85.3] HCC related Navigation Signature: Genetcarissa Mosley March 30, 2025 12:26 PM documented in this encounter [facility] 03-30-2025 Note Patient Outreach (IAIN VÁZQUEZ) ---- KELLIE DOZIER ([id number]) 1945 F NFR Date Time Provider Department 03/30/25 SANTO LOVE During your visit today, we recorded the following information about you: Genet Stahl 03/30/2025 12:50 PM Signed POPULATION HEALTH NAVIGATION OUTREACH Action/FYI Patient outreach for Hcc gaps; [place], AWV. Spoke with patient and scheduled colonoscopy, and wellness. Eye exam is scheduled for 04/07/25. Reason for Outreach Care Gap/HCC or Scheduling Wellness Visits Care Gaps due: Medicare Annual Wellness Visit Colorectal Cancer Screening Diabetic Eye Exam Patient Contacted: Spoke to patient/parent/or legal guardian Patient identified by name and : Yes Care Gap/HCC/Scheduling Wellness actions taken: Patient scheduled/pended orders: Medicare Annual Wellness Visit Colorectal Cancer Screening 05/08/2025 in [facility] with RAISA MARADIAGA - 2 month BP check 05/09/2025 in [facility] with ZARI SORENSON - colonoscopy 08/19/2025 in [facility] with SANTO LOVE - wellness , hcc gaps 11/30/[address] [facility] [address] [facility] with [facility] ([facility]) - Granulomatous disease (HCC) [D71]; Lung nodules [R91.8]; History of breast cancer [Z85.3] HCC related Navigation Signature: Genet Mosley March 30, 2025 12:26 PM Genet Stahl 03/30/2025 12:43 PM Signed COLONOSCOPY BOWEL PREPARATION INSTRUCTIONS GOLYTELY/NULYTELY/TRILYTE/COLYTE Your doctor has scheduled you for a colonoscopy. To have a successful colonoscopy, you must have a clean colon, that is empty. A clean colon allows your doctor to see the entire colon AND diagnose issues like polyps or cancer. For doctors, a clean colon is like driving on a hilton day; a dirty colon like driving in a storm. It is very important that you follow these instructions exactly, or your colonoscopy might not be as effective, could be canceled, and you may need to do the bowel prep and the colonoscopy again. TRANSPORTATION REQUIREMENTS You are receiving IV sedation. For your safety, a responsible adult escort must accompany you to and from your procedure: Your adult escort MUST be present with you at check-in for your colonoscopy. Your adult escort MUST remain in the endoscopy area until you are discharged. Your adult escort MUST transport you home once you are discharged. You are NOT allowed to operate any form of transportation (i.e. drive a car, bicycle, etc.) or leave the Endoscopy Center ALONE. It is not safe to do so. If you cannot meet these requirements, your procedure will be canceled. MEDICATION REQUIREMENTS For your safety, certain medications will need to be stopped or adjusted before you can have your procedure: BLOOD THINNERS: If you take blood thinners, such as Coumadin (warfarin), Plavix (clopidogrel), Ticlid (ticlopidine hydrochloride), Agrylin (anagrelide), Xarelto (Rivaroxaban), Pradaxa (Dabigatran), Eliquis (Apixaban), or Effient (Prasugrel), contact the physician who is prescribing these medications at least 2 weeks prior to your procedure to discuss any necessary adjustments. DIABETES: If you take medications for diabetes, your dosage may need to be adjusted. If you are being treated for diabetes with insulin, diabetic pills, or other injectable medications do not take your REGULAR dose after midnight on the day of your procedure. If you are taking any other types of insulin such as Lantus, Humalog, NPH (long-acting insulin), or 70/30 insulin, take half your normal dose the day before your procedure. DIABETES/WEIGHT MANAGEMENT: If you take medications for weight-loss, your dosage may need to be adjusted Contact the doctor who prescribes this medication for further instructions. If you take medications for weight-loss like semaglutide (Ozempic, Wegovy, Rybelsus), dulaglutide (Trulicity), liraglutide (Victoza, Saxenda), exenatide (Byetta, Bydureon), or lixisenatide (Adylyxin), stop your medication 1 week prior to your procedure. If you take medications like canagliflozin (Invokana), dapagliflozin (Farxiga, Forxiga), empagliflozin (Jardiance), stop your medication 3 days prior to your procedure. If you take ertugliflozin (Steglatro) stop your medication 4 days prior to your procedure. IRON: If you take iron pills, STOP them 1 week BEFORE your procedure, may resume after. OTHER MEDS: May take all other medications (including aspirin, antibiotics, water pills / diuretics like Lasix or Metolozone, blood pressure meds, etc.) at their usual scheduled time with a sip of water. DIET REQUIREMENTS The day before your colonoscopy, you may have a clear liquid diet (see below). The day of your colonoscopy, you may continue a clear liquid diet until 3 hours before your colonoscopy. Within 3 hours of your colonoscopy, take only any medications (as above) with a sip of (more content not included)... [facility] 03-07-2025 Note HNO ID: [id number] Author: RAISA MARADIAGA APRN.OBSTETRICIAN/GYNECOLOGIST Service: ? Author Type: Nurse Practitioner Type: Progress Notes Filed: 03/07/2025 12:51 Note Text: This is a 79 year old female who presents today with: Kellie is an 79-year-old female with a history of HTN and diabetes, presenting for follow-up. HISTORY OF PRESENT ILLNESS: Hypertension: - Recent increase in losartan to 75 mg daily; Kellie has been taking only 50 mg daily. - Reports BP readings all over the place, with one reading over 200 mmHg. - Able to split tablets; prefers to continue this method. Diabetes: - Restarted sitagliptin in December; previously took it in [id number]. - Currently taking glipizide 2.5 mg BID. - Discontinued Invokana due to cost. - Monitoring blood glucose BID (morning and evening). - Morning readings: Lowest 98 mg/dL, typically 120-140 mg/dL. - Evening readings: Lowest 140 mg/dL, typically in the 200s. - Denies episodes of hypoglycemia. PAST MEDICAL HISTORY: PAST MEDICAL HISTORY Diagnosis Date Arthritis CAD (coronary artery disease) s/p stents CTS (carpal tunnel syndrome) Cystocele, midline 2006 Diverticulitis Duodenal ulcer 01/2024 Esophagitis, unspecified hiatal hernia, gastritis Essential hypertension, benign Gastrointestinal hemorrhage, unspecified gastrointestinal hemorrhage type 01/2024 History of colon polyps [facility], [facility] Hydr[facility] Lung nodule 01/2024 Malignant neoplasm of breast (female), unspecified site 1998 Breast cancer right Mixed hyperlipidemia Osteoarthritis of right knee Osteopenia 05/21/2010 Paroxysmal SVT (supraventricular tachycardia) (HCC) Dr Marcelo Persistent atrial fibrillation (HCC) Post-menopausal bleeding 2006 TUBERCULIN TEST REACTION NO TBC 12/16/2005 Type 2 diabetes mellitus without complication, without long-term current use of insulin (HCC) Unspecified constipation Unspecified glaucoma(365.9) Glaucoma Low tension Urinary retention PAST SURGICAL HISTORY Procedure Laterality Date APPENDECTOMY BREAST BX NEEDLE CORE RIGHT 06/17/2008 U/S needle core bx right axilla BREAST SURGERY HX CMBND ANTERPOST COLPORRAPHY W/CYSTO 2004 Bladder and rectum repair COLON SURGERY HX Diverticular disease COLONOSCOPY 2006 [facility] COLONOSCOPY 09/12/2014 no polyps, repeat [...] HX HEART CATHETERIZATION 2009 stent x 4 LAPS COLECTOMY PRTL W/COLOPXTSTMY LW ANAST 11/12/2011 lap low anterior resection sigmoid for diverticular disease LUMPECTOMY/RADIOTHERAPY DIAG MAMM/A10 1998 Right breast PAST SURGICAL HISTORY OF 2023 endoscopy STEREOTACTIC CORE BIOPSY 06/11/2007 LEFT TONSILLECTOMY HX TOTAL ABDOMINAL HYSTERECT W/WO RMVL TUBE OVARY 1976 Hysterectomy, ANN No BSO ALLERGIES Amoxicillin, Fosamax [Alendronate Sodium], Metformin, and Shellfish MEDICATIONS Current Outpatient Medications Medication Sig insulin glargine 100 unit/mL (3 mL) Inject 30 Units subcutaneously every morning. Patient assistance med, may use flex pens insulin needles, DISPOSABLE, (PEN NEEDLE) 31 gauge x 5/16 Use as directed once daily as directed DM: yes Insulin: yes DX: E11.9 losartan (COZAAR) 50 mg tablet Take 1.5 tablets by mouth once daily. SITagliptin phosphate (JANUVIA) 25 mg tablet Take 1 tablet by mouth once daily. glipiZIDE 2.5 mg tablet Take 1 tablet (2.5 mg) by mouth two times a day before meals. pravastatin (PRAVACHOL) 80 mg tablet Take 1 tablet by mouth once daily. verapamil ER (VERELAN PM) 300 mg CPCT Take 1 capsule by mouth daily at bedtime. cyanocobalamin (VITAMIN B-12) 1,000 mcg tab Take 1 tablet by mouth every other day. pantoprazole DR (PROTONIX) 40 mg tablet Take 1 tablet by mouth every 12 hours. ondansetron orally disintegrating (ZOFRAN ODT) 4 mg disintegrating tablet Take 1 tablet by mouth every 6 hours as needed for nausea/vomiting. meclizine (ANTIVERT) 12.5 mg tab Take 1 tablet by mouth every 6 hours as needed (dizziness). nitroglycerin sublingual (NITROSTAT) 0.4 mg SL tablet Dissolve 1 tablet under the tongue as needed for chest pain. If no pain relief call 911. brimonidine (ALPHAGAN P) 0.15 % ophthalmic solution Use 1 Drop in both eyes two times a day. pyridoxine hcl(VITAMIN B-6 100 MG TAB) Take one(1) tablet daily. CALCIUM + D 600 MG-200 UNIT TAB Take 1 tablet by mouth once daily. No curren (more content not included)... [facility] 03-07-2025 History of Present illness Narrative This is a 79 year old female who presents today with: Kellie is an 79-year-old female with a history of HTN and diabetes, presenting for follow-up. HISTORY OF PRESENT ILLNESS: Hypertension: - Recent increase in losartan to 75 mg daily; Kellie has been taking only 50 mg daily. - Reports BP readings all over the place, with one reading over 200 mmHg. - Able to split tablets; prefers to continue this method. Diabetes: - Restarted sitagliptin in December; previously took it in [id number]. - Currently taking glipizide 2.5 mg BID. - Discontinued Invokana due to cost. - Monitoring blood glucose BID (morning and evening). - Morning readings: Lowest 98 mg/dL, typically 120-140 mg/dL. - Evening readings: Lowest 140 mg/dL, typically in the 200s. - Denies episodes of hypoglycemia. PAST MEDICAL HISTORY: PAST MEDICAL HISTORY Diagnosis Date Arthritis CAD (coronary artery disease) s/p stents CTS (carpal tunnel syndrome) Cystocele, midline 2006 Diverticulitis Duodenal ulcer 01/2024 Esophagitis, unspecified hiatal hernia, gastritis Essential hypertension, benign Gastrointestinal hemorrhage, unspecified gastrointestinal hemorrhage type 01/2024 History of colon polyps [facility] 12/16/2023 Hydroureter Lung nodule 01/2024 Malignant neoplasm of breast (female), unspecified site 1998 Breast cancer right Mixed hyperlipidemia Osteoarthritis of right knee Osteopenia 05/21/2010 Paroxysmal SVT (supraventricular tachycardia) (HCC) Dr Marcelo Persistent atrial fibrillation (HCC) Post-menopausal bleeding 2006 TUBERCULIN TEST REACTION NO TBC 12/16/2005 Type 2 diabetes mellitus without complication, without long-term current use of insulin (HCC) Unspecified constipation Unspecified glaucoma(365.9) Glaucoma Low tension Urinary retention PAST SURGICAL HISTORY Procedure Laterality Date APPENDECTOMY BREAST BX NEEDLE CORE RIGHT 06/17/2008 U/S needle core bx right axilla BREAST SURGERY HX CMBND ANTERPOST COLPORRAPHY W/CYSTO 2004 Bladder and rectum repair COLON SURGERY HX Diverticular disease COLONOSCOPY 2006 [place] COLONOSCOPY 09/12/2014 no polyps, repeat due 2018 [...] 11/13/2016 EGD EYE SURGERY HX HEART CATHETERIZATION 2008 stent x 4 LAPS COLECTOMY PRTL W/COLOPXTSTMY LW ANAST 11/12/2011 lap low anterior resection sigmoid for diverticular disease LUMPECTOMY/RADIOTHERAPY DIAG MAMM/A10 1998 Right breast PAST SURGICAL HISTORY OF 2023 endoscopy STEREOTACTIC CORE BIOPSY 06/11/2007 LEFT TONSILLECTOMY HX TOTAL ABDOMINAL HYSTERECT W/WO RMVL TUBE OVARY 1975 Hysterectomy, ANN No BSO ALLERGIES Amoxicillin, Fosamax [Alendronate Sodium], Metformin, and Shellfish MEDICATIONS Current Outpatient Medications Medication Sig insulin glargine 100 unit/mL (3 mL) Inject 30 Units subcutaneously every morning. Patient assistance med, may use flex pens insulin needles, DISPOSABLE, (PEN NEEDLE) 31 gauge x 5/16 Use as directed once daily as directed DM: yes Insulin: yes DX: E11.9 losartan (COZAAR) 50 mg tablet Take 1.5 tablets by mouth once daily. SITagliptin phosphate (JANUVIA) 25 mg tablet Take 1 tablet by mouth once daily. glipiZIDE 2.5 mg tablet Take 1 tablet (2.5 mg) by mouth two times a day before meals. pravastatin (PRAVACHOL) 80 mg tablet Take 1 tablet by mouth once daily. verapamil ER (VERELAN PM) 300 mg CPCT Take 1 capsule by mouth daily at bedtime. cyanocobalamin (VITAMIN B-12) 1,000 mcg tab Take 1 tablet by mouth every other day. pantoprazole DR (PROTONIX) 40 mg tablet Take 1 tablet by mouth every 12 hours. ondansetron orally disintegrating (ZOFRAN ODT) 4 mg disintegrating tablet Take 1 tablet by mouth every 6 hours as needed for nausea/vomiting. meclizine (ANTIVERT) 12.5 mg tab Take 1 tablet by mouth every 6 hours as needed (dizziness). nitroglycerin sublingual (NITROSTAT) 0.4 mg SL tablet Dissolve 1 tablet under the tongue as needed for chest pain. If no pain relief call 911. brimonidine (ALPHAGAN P) 0.15 % ophthalmic solution Use 1 Drop in both eyes two times a day. pyridoxine hcl(VITAMIN B-6 100 MG TAB) Take one(1) tablet daily. CALCIUM + D 600 MG-200 UNIT TAB Take 1 tablet by mouth once daily. No current facility-administered medications for this visit. FAMILY HISTORY Problem Relation Age of Onset Diabetes Mother Hypertension Mother Lipids Mother Stroke Mother Ischemic Heart Disease Mother DVT Father Breast Cancer Maternal Aunt Social History Tobacco Use Smoking status: Never Smokeless tobacco: Never Vaping Use Vaping status: Never Used Substance Use Topics Alcohol use: Not Currently Drug use: Never EXAM: BP 133/62 Pulse (!) 55 Resp 16 SpO2 94% PHYSICAL EXAM: General Appearance: Well appearing, alert, in no acute distress, well-hydrated, well nourished.. Skin: Skin color, texture, turgor normal, no suspicious rashes or lesions. Head: Normocephalic, no masses, lesions, tenderness or abnormalities. Eyes: Anicteric sclera. Pupils are equally round and reactive to light. Extraocular movements are intact. . Lungs: Lungs clear to auscultation. No wheezing, rhonchi, rales.. Heart: RRR irregularly irregular. Neurologic: Gait normal. ASSESSMENT/PLAN 1. Essential (primary) hypertension (I10) - Blood pressure readings have been inconsistent, with a recent reading over 200 mmHg. - Patient was previously instructed to increase losartan to 75 mg daily by taking one and a half 50 mg tablets, but has only been taking one 50 mg tablet daily. - Reinforced the importance of adhering to the prescribed dosage of 75 mg daily. - Patient is able to split tablets and prefers to continue doing so rather than switching to 25 mg tablets. - Advised patient to bring home blood pressure cuff to next appointment for calibration. 2. Type 2 diabetes mellitus without complication, with long-term current use of insulin (HCC) (E11.9) - Blood glucose readings are variable, with morning readings as low as 98 mg/dL and evening readings often in the 200s mg/dL. - Currently taking sitagliptin (Januvia) and glipizide 2.5 mg twice daily. - Considering increasing sitagliptin dosage; awaiting confirmation of current medication from patient via Evergig before making changes. - Patient to message medication details through Evergig with assistance from granddaughter. - No episodes of hypoglycemia reported. Discussed treatment plan and patient voices understanding. Patient's questions answered appropriately. Medications and potential side effects were discussed and patient voices understanding. Return to the office as scheduled or as needed for worsening/no improvement. Raisa Maradiaga APRN.CNP Recording using g4interactive software for draft documentation of the visit was discussed with the patient/authorized sales representative education courses; all questions welcomed and answered. Patient/authorized sales representative education courses agreed to proceed documented in this encounter [facility] 03-07-2025 Instructions Raisa Maradiaga APRN.CNP - 03/07/2025 11:18 AM EDT Continue taking your losartan by splitting the 50-mg tablets to take 1 tablets daily as prescribed. Continue checking your blood sugar levels each morning and at night so we can better track your readings. -Send me a Videdressing message with the medication you are referring to. documented in this encounter [facility] 03-03-2025 Telephone encounter Note The patient has been identified by name and date of : Yes Caregiver verified no other encounters exist for this prescription request: Yes Caregiver confirmed with patient/requestor that no other refills are due, in the near future, with this provider at this time: Yes The last office visit in the department: 02/07/2025 Does the patient have a future office visit with this provider/department: Yes 03/07/2025 Requested Prescriptions Pending Prescriptions Disp Refills insulin glargine 100 unit/mL (3 mL) 5 each 3 Sig: Inject 30 Units subcutaneously every morning. Patient assistance med, may use flex pens Tonia Stern RN March 03, 2025 4:[address] [facility] 03-03-2025 Miscellaneous Notes The patient has been identified by name and date of : Yes Caregiver verified no other encounters exist for this prescription request: Yes Caregiver confirmed with patient/requestor that no other refills are due, in the near future, with this provider at this time: Yes The last office visit in the department: 02/07/2025 Does the patient have a future office visit with this provider/department: Yes 03/07/2025 Requested Prescriptions Pending Prescriptions Disp Refills insulin glargine 100 unit/mL (3 mL) 5 each 3 Sig: Inject 30 Units subcutaneously every morning. Patient assistance med, may use flex pens Tonia Stern RN March 03, 2025 4:21 PM documented in this encounter [facility] 03-01-2025 Telephone encounter Note Prescription Refill Information The patient has been identified by name and date of : Yes Caregiver verified no other encounters exist for this prescription request: Yes Caregiver confirmed with patient/requestor that no other refills are due, in the near future, with this provider at this time: Yes The last office visit in the department: 02-07-25 Does the patient have a future office visit with this provider/department: Yes Requested Prescriptions Pending Prescriptions Disp Refills insulin needles, DISPOSABLE, (PEN NEEDLE) 31 gauge x 5/16 100 each 3 Sig: Use as directed once daily as directed DM: yes Insulin: yes DX: E11.9 Griselda Farley March 01, 2025 8:[address] [facility] 03-01-2025 Miscellaneous Notes Prescription Refill Information The patient has been identified by name and date of : Yes Caregiver verified no other encounters exist for this prescription request: Yes Caregiver confirmed with patient/requestor that no other refills are due, in the near future, with this provider at this time: Yes The last office visit in the department: 02-07-25 Does the patient have a future office visit with this provider/department: Yes Requested Prescriptions Pending Prescriptions Disp Refills insulin needles, DISPOSABLE, (PEN NEEDLE) 31 gauge x 5/16 100 each 3 Sig: Use as directed once daily as directed DM: yes Insulin: yes DX: E11.9 Griselda Farley March 01, 2025 8:19 AM documented in this encounter [facility] 02-08-2025 Telephone encounter Note OV note faxed to [facility]. Brittney Hinton LPN [facility] 02-08-2025 Miscellaneous Notes OV note faxed to [facility]. Brittney Hinton LPN Can we please fax today's office note to [facility] so they are aware of recent medication changes. Raisa Maradiaga APRN.OBSTETRICIAN/GYNECOLOGIST documented in this encounter [facility] 02-07-2025 Telephone encounter Note Can we please fax today's office note to [facility] so they are aware of recent medication changes. Raisa Maradiaga APRN.OBSTETRICIAN/GYNECOLOGIST [facility] 02-07-2025 Note HNO ID: [id number] Author: RAISA MARADIAGA APRN.CNP Service: ? Author Type: Nurse Practitioner Type: Progress Notes Filed: 02/07/2025 18:10 Note Text: This is a 79 year old female who presents today with: Kellie is an 79-year-old female with a history of DM, HTN, and hepatic steatosis, presenting for follow-up. HISTORY OF PRESENT ILLNESS: Diabetes Mellitus: - Blood glucose levels remain elevated despite medication adherence. - recently started januvia. Unable to get GLPs or jardiance d/t cost. - Monitors blood glucose twice daily: fasting in the morning and before bedtime. - Morning readings occasionally as low as 88 mg/dL; evening readings consistently in the 200s mg/dL. - Previously took Jardiance and Trulicity but discontinued due to high cost. Hypertension: - Currently taking losartan 50 mg daily. - Adherent to medication regimen. - Has not checked blood pressure at home for the past two weeks. - Denies chest pain, palpitations, or dyspnea. Hepatic Steatosis: - Recent ultrasound showed hepatic steatosis. PAST MEDICAL HISTORY: PAST MEDICAL HISTORY Diagnosis Date Arthritis CAD (coronary artery disease) s/p stents CTS (carpal tunnel syndrome) Cystocele, midline 2006 Diverticulitis Duodenal ulcer 01/2024 Esophagitis, unspecified hiatal hernia, gastritis Essential hypertension, benign Gastrointestinal hemorrhage, unspecified gastrointestinal hemorrhage type 01/2024 History of colon polyps [facility] 12/16/[facility]23 Hydroureter Lung nodule 01/2024 Malignant neoplasm of breast (female), unspecified site 1998 Breast cancer right Mixed hyperlipidemia Osteoarthritis of right knee Osteopenia 05/21/2010 Paroxysmal SVT (supraventricular tachycardia) (HCC) Dr Marcelo Persistent atrial fibrillation (HCC) Post-menopausal bleeding 2006 TUBERCULIN TEST REACTION NO TBC 12/16/2005 Type 2 diabetes mellitus without complication, without long-term current use of insulin (HCC) Unspecified constipation Unspecified glaucoma(365.9) Glaucoma Low tension Urinary retention PAST SURGICAL HISTORY Procedure Laterality Date APPENDECTOMY BREAST BX NEEDLE CORE RIGHT 06/17/2008 U/S needle core bx right axilla BREAST SURGERY HX [facility]ND ANTERPOST COLPORRAPHY W/CYSTO 2004 Bladder and rectum repair COLON SURGERY HX Diverticular disease COLONOSCOPY 2006 [place] COLONOSCOPY 09/12/2014 no polyps, [...] HX HEART CATHETERIZATION 2009 stent x 4 LAPS COLECTOMY PRTL W/COLOPXTSTMY LW ANAST 11/12/2011 lap low anterior resection sigmoid for diverticular disease LUMPECTOMY/RADIOTHERAPY DIAG MAMM/A10 1998 Right breast PAST SURGICAL HISTORY OF 2023 endoscopy STEREOTACTIC CORE BIOPSY 06/11/2007 LEFT TONSILLECTOMY HX TOTAL ABDOMINAL HYSTERECT W/WO RMVL TUBE OVARY 1975 Hysterectomy, ANN No BSO ALLERGIES Amoxicillin, Fosamax [Alendronate Sodium], Metformin, and Shellfish MEDICATIONS Current Outpatient Medications Medication Sig losartan (COZAAR) 50 mg tablet Take 1.5 tablets by mouth once daily. SITagliptin phosphate (JANUVIA) 25 mg tablet Take 1 tablet by mouth once daily. glipiZIDE 2.5 mg tablet Take 1 tablet (2.5 mg) by mouth two times a day before meals. pravastatin (PRAVACHOL) 80 mg tablet Take 1 tablet by mouth once daily. verapamil ER (VERELAN PM) 300 mg CPCT Take 1 capsule by mouth daily at bedtime. cyanocobalamin (VITAMIN B-12) 1,000 mcg tab Take 1 tablet by mouth every other day. insulin glargine 100 unit/mL (3 mL) Inject 30 Units subcutaneously every morning. Patient assistance med, may use flex pens pantoprazole DR (PROTONIX) 40 mg tablet Take 1 tablet by mouth every 12 hours. ondansetron orally disintegrating (ZOFRAN ODT) 4 mg disintegrating tablet Take 1 tablet by mouth every 6 hours as needed for nausea/vomiting. meclizine (ANTIVERT) 12.5 mg tab Take 1 tablet by mouth every 6 hours as needed (dizziness). nitroglycerin sublingual (NITROSTAT) 0.4 mg SL tablet Dissolve 1 tablet under the tongue as needed for chest pain. If no pain relief call 911. insulin needles, DISPOSABLE, (PEN NEEDLE) 31 gauge x 5/16 ndle Use as directed once daily as directed DM: yes Insulin: yes DX: E11.9 brimonidine (ALPHAGAN P) 0.15 % ophthalmic solution Use 1 Drop in both eyes two times a day. pyridoxine hcl(VITAMIN B-6 100 MG TAB) Take (more content not included)... [facility] 02-07-2025 History of Present illness Narrative This is a 79 year old female who presents today with: Kellie is an 79-year-old female with a history of DM, HTN, and hepatic steatosis, presenting for follow-up. HISTORY OF PRESENT ILLNESS: Diabetes Mellitus: - Blood glucose levels remain elevated despite medication adherence. - recently started januvia. Unable to get GLPs or jardiance d/t cost. - Monitors blood glucose twice daily: fasting in the morning and before bedtime. - Morning readings occasionally as low as 88 mg/dL; evening readings consistently in the 200s mg/dL. - Previously took Jardiance and Trulicity but discontinued due to high cost. Hypertension: - Currently taking losartan 50 mg daily. - Adherent to medication regimen. - Has not checked blood pressure at home for the past two weeks. - Denies chest pain, palpitations, or dyspnea. Hepatic Steatosis: - Recent ultrasound showed hepatic steatosis. PAST MEDICAL HISTORY: PAST MEDICAL HISTORY Diagnosis Date Arthritis CAD (coronary artery disease) s/p stents CTS (carpal tunnel syndrome) Cystocele, midline 2006 Diverticulitis Duodenal ulcer 01/2024 Esophagitis, unspecified hiatal hernia, gastritis Essential hypertension, benign Gastrointestinal hemorrhage, unspecified gastrointestinal hemorrhage type 01/2024 History of colon polyps History of percutaneous left heart catheterization 06/24/2011 done at [place] Hydronephrosis, bilateral 12/16/2023 Hydroureter Lung nodule 01/2024 Malignant neoplasm of breast (female), unspecified site 1998 Breast cancer right Mixed hyperlipidemia Osteoarthritis of right knee Osteopenia 05/21/2010 Paroxysmal SVT (supraventricular tachycardia) (HCC) Dr Marcelo Persistent atrial fibrillation (HCC) Post-menopausal bleeding 2006 TUBERCULIN TEST REACTION NO TBC 12/16/2005 Type 2 diabetes mellitus without complication, without long-term current use of insulin (HCC) Unspecified constipation Unspecified glaucoma(365.9) Glaucoma Low tension Urinary retention PAST SURGICAL HISTORY Procedure Laterality Date APPENDECTOMY BREAST BX NEEDLE CORE RIGHT 06/17/2008 U/S needle core bx right axilla BREAST SURGERY HX CMBND ANTERPOST COLPORRAPHY W/CYSTO 2005 Bladder and rectum repair COLON SURGERY HX Diverticular disease COLONOSCOPY 2006 [place] COLONOSCOPY 09/12/2014 no polyps, repeat due 2018 [...] 11/13/2016 EGD EYE SURGERY HX HEART CATHETERIZATION 2008 stent x 4 LAPS COLECTOMY PRTL W/COLOPXTSTMY LW ANAST 11/12/2011 lap low anterior resection sigmoid for diverticular disease LUMPECTOMY/RADIOTHERAPY DIAG MAMM/A10 1998 Right breast PAST SURGICAL HISTORY OF 2023 endoscopy STEREOTACTIC CORE BIOPSY 06/11/2007 LEFT TONSILLECTOMY HX TOTAL ABDOMINAL HYSTERECT W/WO RMVL TUBE OVARY 1975 Hysterectomy, ANN No BSO ALLERGIES Amoxicillin, Fosamax [Alendronate Sodium], Metformin, and Shellfish MEDICATIONS Current Outpatient Medications Medication Sig losartan (COZAAR) 50 mg tablet Take 1.5 tablets by mouth once daily. SITagliptin phosphate (JANUVIA) 25 mg tablet Take 1 tablet by mouth once daily. glipiZIDE 2.5 mg tablet Take 1 tablet (2.5 mg) by mouth two times a day before meals. pravastatin (PRAVACHOL) 80 mg tablet Take 1 tablet by mouth once daily. verapamil ER (VERELAN PM) 300 mg CPCT Take 1 capsule by mouth daily at bedtime. cyanocobalamin (VITAMIN B-12) 1,000 mcg tab Take 1 tablet by mouth every other day. insulin glargine 100 unit/mL (3 mL) Inject 30 Units subcutaneously every morning. Patient assistance med, may use flex pens pantoprazole DR (PROTONIX) 40 mg tablet Take 1 tablet by mouth every 12 hours. ondansetron orally disintegrating (ZOFRAN ODT) 4 mg disintegrating tablet Take 1 tablet by mouth every 6 hours as needed for nausea/vomiting. meclizine (ANTIVERT) 12.5 mg tab Take 1 tablet by mouth every 6 hours as needed (dizziness). nitroglycerin sublingual (NITROSTAT) 0.4 mg SL tablet Dissolve 1 tablet under the tongue as needed for chest pain. If no pain relief call 911. insulin needles, DISPOSABLE, (PEN NEEDLE) 31 gauge x 5/16 ndle Use as directed once daily as directed DM: yes Insulin: yes DX: E11.9 brimonidine (ALPHAGAN P) 0.15 % ophthalmic solution Use 1 Drop in both eyes two times a day. pyridoxine hcl(VITAMIN B-6 100 MG TAB) Take one(1) tablet daily. CALCIUM + D 600 MG-200 UNIT TAB Take 1 tablet by mouth once daily. No current facility-administered medications for this visit. FAMILY HISTORY Problem Relation Age of Onset Diabetes Mother Hypertension Mother Lipids Mother Stroke Mother Ischemic Heart Disease Mother DVT Father Breast Cancer Maternal Aunt Social History Tobacco Use Smoking status: Never Smokeless tobacco: Never Vaping Use Vaping status: Never Used Substance Use Topics Alcohol use: Not Currently Drug use: Never REVIEW OF SYSTEMS Cardiovascular: (-) chest pain, (-) palpitations, (+) ankle swelling Respiratory: (-) shortness of breath EXAM: BP 166/67 Pulse 64 Resp 16 Wt 69.9 kg (154 lb) SpO2 92% BMI 26.43 kg/m PHYSICAL EXAM: General Appearance: Well appearing, alert, in no acute distress, well-hydrated, well nourished.. Skin: Skin color, texture, turgor normal, no suspicious rashes or lesions. Head: Normocephalic, no masses, lesions, tenderness or abnormalities. Eyes: Anicteric sclera. Extraocular movements are intact. . Lungs: Lungs clear to auscultation. No wheezing, rhonchi, rales.. Heart: Positive findings: irregularly irregular rhythm. Extremities: No deformities, trace edema, skin discoloration, clubbing or cyanosis. Good capillary refill. . Neurologic: Gait normal. ASSESSMENT/PLAN 1. Type 2 diabetes mellitus without complication, with long-term current use of insulin (HCC) (E11.9) - Glycemic control remains suboptimal -- recently added in [facility]. - Monitoring blood glucose levels twice daily: fasting in the morning and before bedtime. - Discussed previous effective treatment with Jardiance and Trulicity, but cost prohibitive. - Will contact Herlinda from aids social worker to explore eligibility for state director assistance programs for Jardiance or Trulicity. - Ordered repeat HbA1c in 3 months to assess efficacy of current treatment. 2. Essential (primary) hypertension (I10) - Blood pressure readings elevated today. - Current medication: losartan 50 mg daily. - Increased losartan dosage to 75 mg daily; instructed patient to take one and a half tablets of the 50 mg. - Will send a copy of the note to cardiology to inform them of the medication adjustment. - Advised patient to monitor blood pressure at home and report readings. - Scheduled follow-up in one month to re-evaluate blood pressure control. 3. Nonalcoholic fatty liver disease (K76.0) - Recent ultrasound confirms hepatic steatosis; no other abnormalities noted. - Emphasized importance of diet and exercise in management. - Discussed correlation between glycemic control, cholesterol management, and liver health. - Will continue to monitor liver function tests periodically. Discussed treatment plan and patient voices understanding. Patient's questions answered appropriately. Medications and potential side effects were discussed and patient voices understanding. Return to the office as scheduled or as needed for worsening/no improvement. Raisa Maradiaga APRN.TOBY The patient consented to the use of g4interactive software for draft documentation of the visit consistent with [facility] s Notice of Privacy Practices. documented in this encounter [facility] 02-07-2025 Instructions Raisa Maradiaga APRN.CNP - 02/07/2025 11:29 AM EDT - Increase Losartan dosage to 75 mg daily by taking one and a half of the 50 mg tablets each day. - Monitor your blood pressure at home regularly and record the readings. - Submit your blood pressure readings to the clinic. - Continue taking Januvia, Glipizide, and insulin as prescribed. - Check your blood sugar levels twice daily: once in the morning before eating and once before bedtime. - Recheck an A1c test in 3 months to monitor your blood sugar control. - Maintain a healthy diet and exercise routine to manage fatty liver disease. - Follow up with the clinic in one month for a blood pressure recheck. documented in this encounter [facility] 02-06-2025 History of Present illness Narrative Primary Care Pharmacy Panel Management This patient has been identified through [facility]ty [employer] Diabetes Registry Review by the primary care pharmacy team. After review, determined that the patient is not a candidate for pharmacy referral at this time due to anticipating A1c will improve on recheck. (Januvia was started following most recent A1c though at reduced dosing, which is not required based on patient's current eGFR) Darrin Hope RPh documented in this encounter [facility] 02-06-2025 Note HNO ID: [id number] Author: DARRIN HOPE RPh Service: ? Author Type: Pharmacist Type: Progress Notes Filed: 02/06/2025 15:51 Note Text: Primary Care Pharmacy Panel Management This patient has been identified through [employer]ty [employer] Diabetes Registry Review by the primary care pharmacy team. After review, determined that the patient is not a candidate for pharmacy referral at this time due to anticipating A1c will improve on recheck. (Januvia was started following most recent A1c though at reduced dosing, which is not required based on patient's current eGFR) Darrin Hope RPh [facility] 02-06-2025 Note Patient Outreach (PM STOW) ---- KELLIE DOZIER ([id number]) 1945 F NFR Date Time Provider Department 02/06/25 DARRIN HOPE PMSTOW During your visit today, we recorded the following information about you: Darrin Hope RPh 02/06/2025 3:51 PM Signed Primary Care Pharmacy Panel Management This patient has been identified through Specialty Integration[employer] Diabetes Registry Review by the primary care pharmacy team. After review, determined that the patient is not a candidate for pharmacy referral at this time due to anticipating A1c will improve on recheck. (Januvia was started following most recent A1c though at reduced dosing, which is not required based on patient's current eGFR) Darrin Hope RPh Allergies As of Date: 02/06/2025 Noted Allergy Reaction AMOXICILLIN 07/23/2007 6 - Diarrhea FOSAMAX (ALENDRONATE SODIUM) 06/04/2018 14 - Other: See Comments Comments: myalgia METFORMIN 04/02/2007 6 - Diarrhea Comments: With IR and ER forms SHELLFISH 06/17/2008 6 - Diarrhea 11 - Vomiting Date Reviewed: 12/13/2024 Reviewed by: Brittney Hinton LPN - Fully Assessed Prescriptions as of 02/06/2025 - SITagliptin phosphate (JANUVIA) 25 mg tablet Take 1 tablet by mouth once daily. - glipiZIDE 2.5 mg tablet Take 1 tablet (2.5 mg) by mouth two times a day before meals. - pravastatin (PRAVACHOL) 80 mg tablet Take 1 tablet by mouth once daily. - verapamil ER (VERELAN PM) 300 mg CPCT Take 1 capsule by mouth daily at bedtime. - cyanocobalamin (VITAMIN B-12) 1,000 mcg tab Take 1 tablet by mouth every other day. - losartan (COZAAR) 50 mg tablet Take 1 tablet by mouth every afternoon. - insulin glargine 100 unit/mL (3 mL) Inject 30 Units subcutaneously every morning. Patient assistance med, may use flex pens - pantoprazole DR (PROTONIX) 40 mg tablet Take 1 tablet by mouth every 12 hours. - ondansetron orally disintegrating (ZOFRAN ODT) 4 mg disintegrating tablet Take 1 tablet by mouth every 6 hours as needed for nausea/vomiting. - meclizine (ANTIVERT) 12.5 mg tab Take 1 tablet by mouth every 6 hours as needed (dizziness). - nitroglycerin sublingual (NITROSTAT) 0.4 mg SL tablet Dissolve 1 tablet under the tongue as needed for chest pain. If no pain relief call 911. - insulin needles, DISPOSABLE, (PEN NEEDLE) 31 gauge x 5/16 ndle Use as directed once daily as directed DM: yes Insulin: yes DX: E11.9 - brimonidine (ALPHAGAN P) 0.15 % ophthalmic solution Use 1 Drop in both eyes two times a day. - pyridoxine hcl(VITAMIN B-6 100 MG TAB) Take one(1) tablet daily. - CALCIUM + D 600 MG-200 UNIT TAB Take 1 tablet by mouth once daily. Problem List As Of Date 02/06/2025 Noted Resolved TUBERCULIN TEST REACTION NO TBC [...] [I*06/12/2009 10/02/2022 Osteopenia [M85.80] 05/21/2010 Breast cancer (HCC) [C50.919] 02/18/2011 04/12/2024 Paroxysmal SVT (supraventricular tachycardia) (* Osteoarthritis of right knee [M17.11] CTS (carpal tunnel syndrome) [G56.00] 06/04/2018 Constipation [K59.00] 10/14/2011 10/02/2022 Unspecified constipation [K59.00] 10/17/2011 03/17/2019 Benign neoplasm of colon [D12.6] 10/17/2011 10/02/2022 Diverticulitis [K57.92] 10/24/2011 10/02/2022 half-way current use of anticoagulant [Z79.01]01/10/2017 07/13/2024 Persistent atrial fibrillation (HCC) [I48.19] 01/10/2017 Tendonitis, Achilles, left [M76.62] 03/26/2018 06/04/2018 Tendonitis, Achilles, right [M76.61] 03/26/2018 06/04/2018 Nonrheumatic mitral valve regurgitation [I34.0] 06/17/2021 History of colon polyps [Z86.0100] Iron deficiency anemia due to chronic blood los*01/07/2024 Lung nodule [R91.1] 02/22/2024 Granulomatous disease (HCC) [D71] 02/22/2024 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 Pt voices understanding. Lisa Barber RN [facility] 01-27-2025 Miscellaneous Notes Pt called and is notified of providers results and instructions. Pt voices understanding. Lisa Barber RN Lets try starting her on januvia and see if this is covered by insurance. I went ahead and sent this into the pharmacy. Raisa Maradiaga APRN.TOBY Patient was notified and is only doing glipizide 2.5 BID and insulin 30 units daily. Not taking Invokana due to lim. Leonela Beckman MA Raisa Maradiaga APRN.CNP 01/25/25 6:16 PM Note Can please let patient know that I received her lab results. Her A1C went up to 8.3, which is too high. I would like to confirm what she is taking. It looks like she is taking the glipizide 2.5 mg twice daily and glargine 30 units every morning. It looks like she previously was on jardiance, but it became too expensive. It looks like Dr. Love changed that to invokana. I just want to confirm that this one wasn't covered as well and that she is not taking this prior to making adjustments. Raisa Maradiaga APRN.OBSTETRICIAN/GYNECOLOGIST documented in this encounter [facility] 01-27-2025 Telephone encounter Note Lets try starting her on januvia and see if this is covered by insurance. I went ahead and sent this into the pharmacy. Raisa Maradiaga APRN.OBSTETRICIAN/GYNECOLOGIST [facility] 01-27-2025 Telephone encounter Note Patient was notified and is only doing glipizide 2.5 BID and insulin 30 units daily. Not taking Invokana due to lim. Leonela Beckman MA [facility] 01-27-2025 Telephone encounter Note Raisa Maradiaga APRN.CNP 01/25/25 6:16 PM Note Can please let patient know that I received her lab results. Her A1C went up to 8.3, which is too high. I would like to confirm what she is taking. It looks like she is taking the glipizide 2.5 mg twice daily and glargine 30 units every morning. It looks like she previously was on jardiance, but it became too expensive. It looks like Dr. Love changed that to invokana. I just want to confirm that this one wasn't covered as well and that she is not taking this prior to making adjustments. Raisa Maradiaga APRN.OBSTETRICIAN/GYNECOLOGIST [facility] 01-26-2025 Note HNO ID: [id number] Author: DEBORAH FORREST RDMS Service: ? Author Type: Card Tape Converter Operator Type: Progress Notes Filed: 01/27/2025 08:20 Note Text: Radiology Service Progress Note PATIENT NAME: Kellie Dozier DATE OF SERVICE: January 27, 2025 TIME: 8:20 AM PATIENT IDENTITY VERIFICATION COMPLETED USING TWO (2) IDENTIFIERS: Name and Date of confirmed by patient verbally. FALL SCREENING: Has the patient had 2 falls in the last year or 1 fall with injury or currently using an Ambulatory Assistive Device (Walker, Cane, Wheelchair, Crutches, etc.)? No PATIENT GENDER DATA: Assigned female at . status: : No status: NO. PATIENT RELEVANT IMPLANT DATA REVIEWED: Not Applicable PATIENT PRESENTS WITH AN IMPLANTABLE OR ATTACHED BITE BLOCK MAKER: No RADIOLOGY DEPARTMENT: Ultrasound PERIPHERAL IV DATA: Not applicable SIGNED BY: Deborah Forrest RDMS RVT January 27, 2025 8:20 AM [facility] 01-25-2025 Telephone encounter Note Can please let patient know that I received her lab results. Her A1C went up to 8.3, which is too high. I would like to confirm what she is taking. It looks like she is taking the glipizide 2.5 mg twice daily and glargine 30 units every morning. It looks like she previously was on jardiance, but it became too expensive. It looks like Dr. Love changed that to invokana. I just want to confirm that this one wasn't covered as well and that she is not taking this prior to making adjustments. Raisa Maradiaga APRN.OBSTETRICIAN/GYNECOLOGIST T [facility] 01-25-2025 Miscellaneous Notes Can please let patient know that I received her lab results. Her A1C went up to 8.3, which is too high. I would like to confirm what she is taking. It looks like she is taking the glipizide 2.5 mg twice daily and glargine 30 units every morning. It looks like she previously was on jardiance, but it became too expensive. It looks like Dr. Love changed that to invokana. I just want to confirm that this one wasn't covered as well and that she is not taking this prior to making adjustments. Raisa Maradiaga APRN.OBSTETRICIAN/GYNECOLOGIST documented in this encounter [facility] 01-25-2025 Telephone encounter Note Patient given message below. Agreeable to US. Transferred to mill order scheduler. Tonia Stern RN [facility] 01-25-2025 Miscellaneous Notes Patient given message below. Agreeable to US. Transferred to mill order scheduler. Tonia Stern RN Message left for return call. Tierney White MA Alk phos elevation is all liver. Was up before. Can occur with fatty liver that is associated with dm. Check liver us to be on safe side. documented in this encounter [facility] 01-25-2025 Telephone encounter Note Message left for return call. Tierney White MA [facility] 01-25-2025 Telephone encounter Note Alk phos elevation is all liver. Was up before. Can occur with fatty liver that is associated with dm. Check liver us to be on safe side. [facility] 12-13-2024 Note HNO ID: [id number] Author: BRITTNEY HINTON LPN Service: ? Author Type: LICENSED NURSE Type: Progress Notes Filed: 12/13/2024 17:11 Note Text: Ambulatory Ear Lavage Pre-treatment: Carbamide Peroxide (i.e. Debrox) Treatment: Left ear Equipment and Irrigation solution and Volume used: Single use syringe with single use irrigation tip Water Total Irrigation Volume: 700cc Return flow appearance: Clear Debris Patient tolerated procedure: yes Tympanic membrane assessment: Tympanic membrane assessed by LIP pre and post procedure [facility] 12-13-2024 History of Present illness Narrative Ambulatory Ear Lavage Pre-treatment: Carbamide Peroxide (i.e. Debrox) Treatment: Left ear Equipment and Irrigation solution and Volume used: Single use syringe with single use irrigation tip Water Total Irrigation Volume: 700cc Return flow appearance: Clear Debris Patient tolerated procedure: yes Tympanic membrane assessment: Tympanic membrane assessed by LIP pre and post procedure This is a 79 year old female who presents today with: Patient presents with: Follow Up HISTORY OF PRESENT ILLNESS: Kellie Dozier is a 79 year old female. Patient presents with: Follow Up Pt presents today for 1 month recheck of blood pressure. Was in a month ago, and BP was elevated. Advised to return in a month for recheck and bring home cuff to validate. She has been getting some intermittent ear pain. Both ears. Hearing okay. Left ear sounds cloudy. No popping/cracking. No recent sickness. Here -- 128/70 Home cuff -- 119/57 PAST MEDICAL HISTORY: PAST MEDICAL HISTORY Diagnosis Date Arthritis CAD (coronary artery disease) s/p stents CTS (carpal tunnel syndrome) Cystocele, midline 2006 Diverticulitis Duodenal ulcer 01/2024 Esophagitis, unspecified hiatal hernia, gastritis Essential hypertension, benign Gastrointestinal hemorrhage, unspecified gastrointestinal hemorrhage type 01/2024 History of colon polyps [facility] 12/16/2023 Hydroureter Lung nodule 01/2024 Malignant neoplasm of breast (female), unspecified site 1998 Breast cancer right Mixed hyperlipidemia Osteoarthritis of right knee Osteopenia 05/21/2010 Paroxysmal SVT (supraventricular tachycardia) (HCC) Dr Marcelo Persistent atrial fibrillation (HCC) Post-menopausal bleeding 2006 TUBERCULIN TEST REACTION NO TBC 12/16/2005 Type 2 diabetes mellitus without complication, without long-term current use of insulin (HCC) Unspecified constipation Unspecified glaucoma(365.9) Glaucoma Low tension Urinary retention PAST SURGICAL HISTORY Procedure Laterality Date APPENDECTOMY BREAST BX NEEDLE CORE RIGHT 06/17/2008 U/S needle core bx right axilla BREAST SURGERY HX CMBND ANTERPOST COLPORRAPHY W/CYSTO 2004 Bladder and rectum repair COLON SURGERY HX Diverticular disease COLONOSCOPY 2006 [facility] COLONOSCOPY 09/12/2014 no polyps, repeat [...] HX HEART CATHETERIZATION 2009 stent x 4 LAPS COLECTOMY PRTL W/COLOPXTSTMY LW ANAST 11/12/2011 lap low anterior resection sigmoid for diverticular disease LUMPECTOMY/RADIOTHERAPY DIAG MAMM/A10 1998 Right breast PAST SURGICAL HISTORY OF 2023 endoscopy STEREOTACTIC CORE BIOPSY 06/11/2007 LEFT TONSILLECTOMY HX TOTAL ABDOMINAL HYSTERECT W/WO RMVL TUBE OVARY 1976 Hysterectomy, ANN No BSO ALLERGIES Amoxicillin, Fosamax [Alendronate Sodium], Metformin, and Shellfish MEDICATIONS Current Outpatient Medications Medication Sig pravastatin (PRAVACHOL) 80 mg tablet Take 1 tablet by mouth once daily. verapamil ER (VERELAN PM) 300 mg CPCT Take 1 capsule by mouth daily at bedtime. cyanocobalamin (VITAMIN B-12) 1,000 mcg tab Take 1 tablet by mouth every other day. losartan (COZAAR) 50 mg tablet Take 1 tablet by mouth every afternoon. canagliflozin (INVOKANA) 100 mg tab Take 1 tablet by mouth daily with breakfast. (Patient not taking: Reported on 11/29/2024) insulin glargine 100 unit/mL (3 mL) Inject 30 Units subcutaneously every morning. Patient assistance med, may use flex pens glipiZIDE 2.5 mg tablet Take 1 tablet (2.5 mg) by mouth two times a day before meals. pantoprazole DR (PROTONIX) 40 mg tablet Take 1 tablet by mouth every 12 hours. ondansetron orally disintegrating (ZOFRAN ODT) 4 mg disintegrating tablet Take 1 tablet by mouth every 6 hours as needed for nausea/vomiting. meclizine (ANTIVERT) 12.5 mg tab Take 1 tablet by mouth every 6 hours as needed (dizziness). nitroglycerin sublingual (NITROSTAT) 0.4 mg SL tablet Dissolve 1 tablet under the tongue as needed for chest pain. If no pain relief call 911. insulin needles, DISPOSABLE, (PEN NEEDLE) 31 gauge x 5/16 ndle Use as directed once daily as directed DM: yes Insulin: yes DX: E11.9 brimonidine (ALPHAGAN P) 0.15 % ophthalmic solution Use 1 Drop in both eyes two times a day. pyridoxine hcl(VITAMIN B-6 100 MG TAB) Take one(1) tablet daily. CALCIUM + D 600 MG-200 UNIT TAB Take 1 tablet by mouth once daily. No current facility-administered medications for this visit. FAMILY HISTORY Problem Relation Age of Onset Diabetes Mother Hypertension Mother Lipids Mother Stroke Mother Ischemic Heart Disease Mother DVT Father Breast Cancer Maternal Aunt Social History Tobacco Use Smoking status: Never Smokeless tobacco: Never Vaping Use Vaping status: Never Used Substance Use Topics Alcohol use: Not Currently Drug use: Never EXAM: BP 128/70 Pulse (!) 55 Resp 16 SpO2 94% PHYSICAL EXAM: General Appearance: Well appearing, alert, in no acute distress, well-hydrated, well nourished.. Skin: Skin color, texture, turgor normal, no suspicious rashes or lesions. Head: Normocephalic, no masses, lesions, tenderness or abnormalities. Eyes: Anicteric sclera. . Extraocular movements are intact. . Ears: External ears normal, canals clear. Cerumen impaction left ear. Lungs: Lungs clear to auscultation. No wheezing, rhonchi, rales.. Heart: RRR without murmur, gallop, or rubs. No ectopy. Neurologic: Gait normal. ASSESSMENT/PLAN: 1. Essential hypertension - ICD9: 401.9, ICD10: I10 (primary diagnosis) - Controlled - Home blood pressure readings controlled - Continue current medications - Recommend home blood pressure monitoring, to bring results to next visit - Encouraged sodium restriction, DASH or Mediterranean diet - Recommend regular aerobic exercise 2. Type 2 diabetes mellitus without complication, without long-term current use of insulin (HCC) - ICD9: 250.00, ICD10: E11.9 Will need recheck A1C 3 months after last A1C. - GLIPIZIDE 2.5 MG TABLET - HEMOGLOBIN A1C 3. Impacted cerumen of left ear - ICD9: 380.4, ICD10: H61.22 Successfully irrigated with warm water for large return of cerumen from the left ear. Patient tolerated well. TM intact after irrigation. Discussed treatment plan and patient voices understanding. Patient's questions answered appropriately. Medications and potential side effects were discussed and patient voices understanding. Return to the office as scheduled or as needed for worsening/no improvement. Raisa Maradiaga APRN.CNP documented in this encounter [facility] 12-13-2024 Instructions Raisa Maradiaga APRN.CNP - 12/13/2024 11:25 AM EST Diabetic recheck in 2 months. (I put an order in for the A1C). Continue the same medications. documented in this encounter [facility] 12-13-2024 Note HNO ID: [id number] Author: RAISA MARADIAGA APRN.CNP Service: ? Author Type: Nurse Practitioner Type: Progress Notes Filed: 12/13/2024 17:11 Note Text: This is a 79 year old female who presents today with: Patient presents with: Follow Up HISTORY OF PRESENT ILLNESS: Kellie Dozier is a 79 year old female. Patient presents with: Follow Up Pt presents today for 1 month recheck of blood pressure. Was in a month ago, and BP was elevated. Advised to return in a month for recheck and bring home cuff to validate. She has been getting some intermittent ear pain. Both ears. Hearing okay. Left ear sounds cloudy. No popping/cracking. No recent sickness. Here -- 128/70 Home cuff -- 119/57 PAST MEDICAL HISTORY: PAST MEDICAL HISTORY Diagnosis Date Arthritis CAD (coronary artery disease) s/p stents CTS (carpal tunnel syndrome) Cystocele, midline 2006 Diverticulitis Duodenal ulcer 01/2024 Esophagitis, unspecified hiatal hernia, gastritis Essential hypertension, benign Gastrointestinal hemorrhage, unspecified gastrointestinal hemorrhage type 01/2024 History of colon polyps History of percutaneous left heart catheterization 06/24/2011 done at [facility] Hydronephrosis, bilateral 12/16/2023 Hydroureter Lung nodule 01/2024 Malignant neoplasm of breast (female), unspecified site 1998 Breast cancer right Mixed hyperlipidemia Osteoarthritis of right knee Osteopenia 05/21/2010 Paroxysmal SVT (supraventricular tachycardia) (HCC) Dr Marcelo Persistent atrial fibrillation (HCC) Post-menopausal bleeding 2006 TUBERCULIN TEST REACTION NO TBC 12/16/2005 Type 2 diabetes mellitus without complication, without long-term current use of insulin (HCC) Unspecified constipation Unspecified glaucoma(365.9) Glaucoma Low tension Urinary retention PAST SURGICAL HISTORY Procedure Laterality Date APPENDECTOMY BREAST BX NEEDLE CORE RIGHT 06/17/2008 U/S needle core bx right axilla BREAST SURGERY HX CMBND ANTERPOST COLPORRAPHY W/CYSTO 2004 Bladder and rectum repair COLON SURGERY HX Diverticular disease COLONOSCOPY 2006 [facility] COLONOSCOPY 09/12/2014 no polyps, repeat [...] 11/13/2016 EGD EYE SURGERY HX HEART CATHETERIZATION 2008 stent x 4 LAPS COLECTOMY PRTL W/COLOPXTSTMY LW ANAST 11/12/2011 lap low anterior resection sigmoid for diverticular disease LUMPECTOMY/RADIOTHERAPY DIAG MAMM/A10 1998 Right breast PAST SURGICAL HISTORY OF 2023 endoscopy STEREOTACTIC CORE BIOPSY 06/11/2007 LEFT TONSILLECTOMY HX TOTAL ABDOMINAL HYSTERECT W/WO RMVL TUBE OVARY 1975 Hysterectomy, ANN No BSO ALLERGIES Amoxicillin, Fosamax [Alendronate Sodium], Metformin, and Shellfish MEDICATIONS Current Outpatient Medications Medication Sig pravastatin (PRAVACHOL) 80 mg tablet Take 1 tablet by mouth once daily. verapamil ER (VERELAN PM) 300 mg CPCT Take 1 capsule by mouth daily at bedtime. cyanocobalamin (VITAMIN B-12) 1,000 mcg tab Take 1 tablet by mouth every other day. losartan (COZAAR) 50 mg tablet Take 1 tablet by mouth every afternoon. canagliflozin (INVOKANA) 100 mg tab Take 1 tablet by mouth daily with breakfast. (Patient not taking: Reported on 11/29/2024) insulin glargine 100 unit/mL (3 mL) Inject 30 Units subcutaneously every morning. Patient assistance med, may use flex pens glipiZIDE 2.5 mg tablet Take 1 tablet (2.5 mg) by mouth two times a day before meals. pantoprazole DR (PROTONIX) 40 mg tablet Take 1 tablet by mouth every 12 hours. ondansetron orally disintegrating (ZOFRAN ODT) 4 mg disintegrating tablet Take 1 tablet by mouth every 6 hours as needed for nausea/vomiting. meclizine (ANTIVERT) 12.5 mg tab Take 1 tablet by mouth every 6 hours as needed (dizziness). nitroglycerin sublingual (NITROSTAT) 0.4 mg SL tablet Dissolve 1 tablet under the tongue as needed for chest pain. If no pain relief call 911. insulin needles, DISPOSABLE, (PEN NEEDLE) 31 gauge x 5/16 ndle Use as directed once daily as directed DM: yes Insulin: yes DX: E11.9 brimonidine (ALPHAGAN P) 0.15 % ophthalmic solution Use 1 Drop in both eyes two times a day. pyridoxine hcl(VITAMIN B-6 100 MG TAB) Take one(1) tablet daily. CALCIUM + D 600 MG-200 UNIT TAB Take 1 tablet by mouth once daily. No current facility-administered medications for this visit. FAMILY HISTORY Problem Relation Age of Onset Diabetes Mother Hypertension Mother Lipids Mother Stroke Mother Ischemic Heart D (more content not included)... [facility] 12-07-2024 Telephone encounter Note Script sent. Raisa Maradiaga APRN.CNP [facility] Work Phone: 12-07-2024 Miscellaneous Notes Script sent. Raisa Maradiaga APRN.CNP Prescription Refill Information The patient has been identified by name and date of : Yes Caregiver verified no other encounters exist for this prescription request: Yes Caregiver confirmed with patient/requestor that no other refills are due, in the near future, with this provider at this time: Yes The last office visit in the department: 11/19/2024 Does the patient have a future office visit with this provider/department: Yes, 12/13/2024 Requested Prescriptions Pending Prescriptions Disp Refills verapamil ER (VERELAN PM) 300 mg CPCT 30 capsule 11 Sig: Take 1 capsule by mouth daily at bedtime. EDVIN Rasmussen December 07, 2024 9:53 AM Patient requesting medication that is on list verapamil ER (VERELAN PM) 300 mg CPCT () Patient last seen 11/19/24 Future visit scheduled: yes [facility]ARMACY: [facility] documented in this encounter [facility] 12-07-2024 Telephone encounter Note Prescription Refill Information The patient has been identified by name and date of : Yes Caregiver verified no other encounters exist for this prescription request: Yes Caregiver confirmed with patient/requestor that no other refills are due, in the near future, with this provider at this time: Yes The last office visit in the department: 11/19/2024 Does the patient have a future office visit with this provider/department: Yes, 12/13/2024 Requested Prescriptions Pending Prescriptions Disp Refills verapamil ER (VERELAN PM) 300 mg CPCT 30 capsule 11 Sig: Take 1 capsule by mouth daily at bedtime. EDVIN Rasmussen December 07, 2024 9:53 AM [facility] 12-07-2024 Telephone encounter Note Patient requesting medication that is on list verapamil ER (VERELAN PM) 300 mg CPCT () Patient last seen 11/19/24 Future visit scheduled: yes PHARMACY: [facility] 12-07-2024 Telephone encounter Note Prescription Refill Information The patient has been identified by name and date of : Yes Caregiver verified no other encounters exist for this prescription request: Yes Caregiver confirmed with patient/requestor that no other refills are due, in the near future, with this provider at this time: Yes The last office visit in the department: 11-19-24 Does the patient have a future office visit with this provider/department: Yes Requested Prescriptions Pending Prescriptions Disp Refills pravastatin (PRAVACHOL) 80 mg tablet 90 tablet 3 Sig: Take 1 tablet by mouth once daily. Griselda Farley December 07, 2024 9:15 AM [facility] 12-07-2024 Miscellaneous Notes Prescription Refill Information The patient has been identified by name and date of : Yes Caregiver verified no other encounters exist for this prescription request: Yes Caregiver confirmed with patient/requestor that no other refills are due, in the near future, with this provider at this time: Yes The last office visit in the department: 11-19-24 Does the patient have a future office visit with this provider/department: Yes Requested Prescriptions Pending Prescriptions Disp Refills pravastatin (PRAVACHOL) 80 mg tablet 90 tablet 3 Sig: Take 1 tablet by mouth once daily. Griselda Farley December 07, 2024 9:15 AM documented in this encounter [facility] 11-29-2024 History of Present illness Narrative Images from the original note were not included. . Respiratory Andrew Note Patient name: Kellie Dozier PCP: Santo Love MD CC: Follow up chest CT HPI: Kellie Dozier 79 year old female never smoker with PMH significant for breast cancer 1998 (surgery, radiation, no hormonal therapy), CAD s/p stents, HTN, HLD, DM, AF on AC, GIB, history of TB as a child recently seen for incidental note of pulmonary nodules. 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 In light of breast cancer history recommended follow up chest CT. She has stable nodules, no new findings. She states she is doing well. No respiratory or constitutional symptoms. No cough, chest pain, SOB. DATA: Imaging / Diagnostic Studies: DATE OF EXAM: Aug 09 2024 10:20AM [facility] 0541 - CT CHEST WO IVCON / Comparison: CT chest 01/12/2024 RESULT: Limitations: None. Lines, tubes, and devices: None. Lung parenchyma and airways: Unchanged scattered subcentimeter pulmonary nodules. Scattered calcified granulomas. Decreased prominence of nodular thickening along the superior aspect of the right major fissure. No new suspicious pulmonary nodule. No acute airspace disease. Central airways are patent. Pleural space: No pleural effusion. No pleural thickening. Lower neck, lymph nodes, and mediastinum: The imaged thyroid gland is normal. No lymphadenopathy in the supraclavicular, axillary, mediastinal, or hilar regions. Heart, pericardium, and thoracic vessels: The thoracic aorta and main pulmonary artery are normal in caliber. The cardiac chambers are normal in size. Coronary artery atherosclerotic calcifications are noted, although the study is not optimized for coronary assessment. No pericardial effusion or thickening. Bones and soft tissues: No destructive bone lesion. Degenerative disease of the thoracic spine. Chest wall is unremarkable. Upper abdomen: No acute abnormality in the imaged upper abdomen. Multiple calcified splenic granulomas. Localizer images: No additional findings. IMPRESSION: No CT evidence of acute abnormality. Stable subcentimeter pulmonary nodules. Decreased pleural thickening along the superior aspect of the right major fissure. I personally reviewed the images which shows stable calcified and uncalcified nodules, focal subpleural fibrosis on right and splenic calcifications PAST MEDICAL HISTORY Diagnosis Date Arthritis CAD (coronary artery disease) s/p stents CTS (carpal tunnel syndrome) Cystocele, midline 2006 Diverticulitis Duodenal ulcer 01/2024 Esophagitis, unspecified hiatal hernia, gastritis Essential hypertension, benign Gastrointestinal hemorrhage, unspecified gastrointestinal hemorrhage type 01/2024 History of colon polyps [facility] 12/16/2023 Hydroureter Lung nodule 01/2024 Malignant neoplasm of breast (female), unspecified site 1998 Breast cancer right Mixed hyperlipidemia Osteoarthritis of right knee Osteopenia 05/21/2010 Paroxysmal SVT (supraventricular tachycardia) (HCC) Dr Marcelo Persistent atrial fibrillation (HCC) Post-menopausal bleeding 2006 TUBERCULIN TEST REACTION NO TBC 12/16/2005 Type 2 diabetes mellitus without complication, without long-term current use of insulin (HCC) Unspecified constipation Unspecified glaucoma(365.9) Glaucoma Low tension Urinary retention ALLERGIES Allergen Reactions Amoxicillin Diarrhea Fosamax [Alendronat* Other: See Comments myalgia Metformin Diarrhea With IR and ER forms Shellfish Diarrhea, Vomiting cyanocobalamin (VITAMIN B-12) 1,000 mcg tab Take 1 tablet by mouth every other day. losartan (COZAAR) 50 mg tablet Take 1 tablet by mouth every afternoon. insulin glargine 100 unit/mL (3 mL) Inject 30 Units subcutaneously every morning. Patient assistance med, may use flex pens glipiZIDE 2.5 mg tablet Take 1 tablet (2.5 mg) by mouth two times a day before meals. pantoprazole DR (PROTONIX) 40 mg tablet Take 1 tablet by mouth every 12 hours. verapamil ER (VERELAN PM) 300 mg CPCT Take 1 capsule by mouth daily at bedtime. pravastatin (PRAVACHOL) 80 mg tablet Take 1 tablet by mouth once daily. ondansetron orally disintegrating (ZOFRAN ODT) 4 mg disintegrating tablet Take 1 tablet by mouth every 6 hours as needed for nausea/vomiting. meclizine (ANTIVERT) 12.5 mg tab Take 1 tablet by mouth every 6 hours as needed (dizziness). brimonidine (ALPHAGAN P) 0.15 % ophthalmic solution Use 1 Drop in both eyes two times a day. CALCIUM + D 600 MG-200 UNIT TAB Take 1 tablet by mouth once daily. canagliflozin (INVOKANA) 100 mg tab Take 1 tablet by mouth daily with breakfast. (Patient not taking: Reported on 11/29/2024) nitroglycerin sublingual (NITROSTAT) 0.4 mg SL tablet Dissolve 1 tablet under the tongue as needed for chest pain. If no pain relief call 911. insulin needles, DISPOSABLE, (PEN NEEDLE) 31 gauge x 5/16 ndle Use as directed once daily as directed DM: yes Insulin: yes DX: E11.9 pyridoxine hcl(VITAMIN B-6 100 MG TAB) Take one(1) tablet daily. Social History Tobacco Use Smoking status: Never Smokeless tobacco: Never Vaping Use Vaping status: Never Used Substance Use Topics Alcohol use: Not Currently Drug use: Never PMH, Social history, family history and surgical history reviewed and updated in EMR REVIEW OF SYSTEMS: CONSTITUTIONAL: No fevers, chills, nightsweats, unintended weight loss CARDIOVASCULAR: No chest pain, dyspnea, palpitations, orthopnea, PND, edema. PULM: See HPI NEURO: No new balance problems, peripheral weakness/paresthesias or numbness of concern. INTEGUMENTARY: No new skin changes PHYSICAL EXAMINATION: BP 108/62 Pulse 75 Resp 17 Wt 147 lb (66.7kg) SpO2 97% General Appearance: Elderly female, NAD. Skin: Skin color, texture, turgor normal, no suspicious rashes or lesions. Head: Normocephalic, no masses, lesions, tenderness or abnormalities. Oropharynx: upper plate, no lesions. Neck: No JVD, no masses, no adenopathy. Lungs: Not labored, normal to percussion, no wheezes or crackles. Heart: RRR, no murmur. Extremities: No edema, no clubbing. 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 Last mammogram in July was normal. Leonela Bear MD Respiratory Andrew documented in this encounter [facility] 11-29-2024 Note HNO ID: [id number] Author: LEONELA BEAR MD Service: ? Author Type: Physician Type: Progress Notes Filed: 11/29/2024 12:00 Note Text: . Respiratory Andrew Note Patient name: Kellie Dozier PCP: Santo Love MD CC: Follow up chest CT HPI: Kellie Dozier 79 year old female never smoker with PMH significant for breast cancer 1998 (surgery, radiation, no hormonal therapy), CAD s/p stents, HTN, HLD, DM, AF on AC, GIB, history of TB as a child recently seen for incidental note of pulmonary nodules. 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 In light of breast cancer history recommended follow up chest CT. She has stable nodules, no new findings. She states she is doing well. No respiratory or constitutional symptoms. No cough, chest pain, SOB. DATA: Imaging / Diagnostic Studies: DATE OF EXAM: Aug 09 2024 10:20AM [facility] 0541 - CT CHEST WO IVCON / Comparison: CT chest 01/12/2024 RESULT: Limitations: None. Lines, tubes, and devices: None. Lung parenchyma and airways: Unchanged scattered subcentimeter pulmonary nodules. Scattered calcified granulomas. Decreased prominence of nodular thickening along the superior aspect of the right major fissure. No new suspicious pulmonary nodule. No acute airspace disease. Central airways are patent. Pleural space: No pleural effusion. No pleural thickening. Lower neck, lymph nodes, and mediastinum: The imaged thyroid gland is normal. No lymphadenopathy in the supraclavicular, axillary, mediastinal, or hilar regions. Heart, pericardium, and thoracic vessels: The thoracic aorta and main pulmonary artery are normal in caliber. The cardiac chambers are normal in size. Coronary artery atherosclerotic calcifications are noted, although the study is not optimized for coronary assessment. No pericardial effusion or thickening. Bones and soft tissues: No destructive bone lesion. Degenerative disease of the thoracic spine. Chest wall is unremarkable. Upper abdomen: No acute abnormality in the imaged upper abdomen. Multiple calcified splenic granulomas. Localizer images: No additional findings. IMPRESSION: No CT evidence of acute abnormality. Stable subcentimeter pulmonary nodules. Decreased pleural thickening along the superior aspect of the right major fissure. I personally reviewed the images which shows stable calcified and uncalcified nodules, focal subpleural fibrosis on right and splenic calcifications PAST MEDICAL HISTORY Diagnosis Date Arthritis CAD (coronary artery disease) s/p stents CTS (carpal tunnel syndrome) Cystocele, midline 2006 Diverticulitis Duodenal ulcer 01/2024 Esophagitis, unspecified hiatal hernia, gastritis Essential hypertension, benign Gastrointestinal hemorrhage, unspecified gastrointestinal hemorrhage type 01/2024 History of colon polyps [facility], [facility] Hydroureter Lung nodule 01/2024 Malignant neoplasm of breast (female), unspecified site 1998 Breast cancer right Mixed hyperlipidemia Osteoarthritis of right knee Osteopenia 05/21/2010 Paroxysmal SVT (supraventricular tachycardia) (HCC) Dr Marcelo Persistent atrial fibrillation (HCC) Post-menopausal bleeding 2007 TUBERCULIN TEST REACTION NO TBC 12/16/2005 Type 2 diabetes mellitus without complication, without long-term current use of insulin (HCC) Unspecified constipation Unspecified glaucoma(365.9) Glaucoma Low tension Urinary retention ALLERGIES Allergen Reactions Amoxicillin Diarrhea Fosamax [Alendronat* Other: See Comments myalgia Metformin Diarrhea With IR and ER forms Shellfish Diarrhea, Vomiting cyanocobalamin (VITAMIN B-12) 1,000 mcg tab Take 1 tablet by mouth every other day. losartan (COZAAR) 50 mg tablet Take 1 tablet by mouth every afternoon. insulin glargine 100 unit/mL (3 mL) Inject 30 Units subcutaneously every morning. Patient assistance med, may use flex pens glipiZIDE 2.5 mg tablet Take 1 tablet (2.5 mg) by mouth two times a day before meals. pantoprazole DR (PROTONIX) 40 mg tablet Take 1 tablet by mouth every 12 hours. verapamil ER (VERELAN PM) 300 mg CPCT Take 1 capsule by mouth daily at bedtime. pravastatin (PRAVACHOL) 80 mg tablet Take 1 tablet by mouth once daily. ondansetron orally disintegrating (ZOFRAN ODT) 4 mg disintegrating tablet Take 1 tablet by mouth every 6 hours as needed for nausea/vomiting. meclizine (ANTIVERT) 12.5 mg tab Take 1 tablet by mouth every 6 hours as needed (dizziness). brimonidine (ALPHAGAN P) 0.15 % ophthalmic solution Use 1 Drop in both eyes two times a day. CALCIUM + D 600 MG-200 UNIT TAB Take 1 tablet by mouth once daily. canagliflozin (INVOKANA) 100 mg tab Take 1 tablet by mouth daily with breakfast. (Patient not taking: Reported on 11/29/2024) nitroglyc (more content not included)... [facility] 11-28-2024 Telephone encounter Note X2. Unable to reach patient. Left VM to return call to office. Please read below and advise. Paola Jara MA [facility] 11-28-2024 Miscellaneous Notes X2. Unable to reach patient. Left VM to return call to office. Please read below and advise. Paola Jara MA LEFT MESSAGE FOR PATIENT TO CALL OFFICE. Is she able to check with the pharmacist or her insurance company to see if there is a med in that class they cover. We changed from jardiance to invokana due to cost. I have no idea which one Is covered. Patient notified of new instructions for the B12. She did mention that the medication that you were going to prescribe for her blood sugar will be about $400 out of pocket for her. Asking if there is something different that she can try? TC no answer. Left VM to return call. EDVIN Rasmussen Can cut her b12 to every other day Patient returned call and went over results, notes from Dr Love with understanding. Patient asking since her Vitamin B 12 is elevated, should she cut back or stop taking the B 12? Did you want to add fractionated Alk Phos order? Pending order Called and left a voicemail for the Patient to call back and ask for a nurse to receive the providers message. Lisa Barber, KRISTIAN Labs are stable. Alk phos is up. Check fractionated alk phos. Sugars are improving. Urine shows small amount of protein. Recheck urine in a month. If persists, may need to add a med to help. documented in this encounter [facility] 11-23-2024 Telephone encounter Note LEFT MESSAGE FOR PATIENT TO CALL OFFICE. [facility] 11-23-2024 Telephone encounter Note Is she able to check with the pharmacist or her insurance company to see if there is a med in that class they cover. We changed from jardiance to invokana due to cost. I have no idea which one Is covered. [facility] 11-23-2024 Telephone encounter Note Patient notified of new instructions for the B12. She did mention that the medication that you were going to prescribe for her blood sugar will be about $400 out of pocket for her. Asking if there is something different that she can try? [facility] 11-21-2024 Telephone encounter Note TC no answer. Left VM to return call. EDVIN Rasmussen [facility] 11-21-2024 Telephone encounter Note Can cut her b12 to every other day [facility] 11-21-2024 Telephone encounter Note Patient returned call and went over results, notes from Dr Love with understanding. Patient asking since her Vitamin B 12 is elevated, should she cut back or stop taking the B 12? Did you want to add fractionated Alk Phos order? Pending order [facility] 11-21-2024 Telephone encounter Note Called and left a voicemail for the Patient to call back and ask for a nurse to receive the providers message. Lisa Barber, RN [facility] 11-21-2024 Telephone encounter Note Labs are stable. Alk phos is up. Check fractionated alk phos. Sugars are improving. Urine shows small amount of protein. Recheck urine in a month. If persists, may need to add a med to help. [facility] 11-19-2024 Note HNO ID: [id number] Author: SANTO LOVE MD Service: ? Author Type: Physician Type: Progress Notes Filed: 11/19/2024 10:05 Note Text: Patient presents with: Follow Up HPI: Patient presents today for office visit for follow up. Follows with [facility]. Recently started on Losartan 50 mg daily. Lisinopril stopped. Caused coughing. Has been monitoring her BP at home. Stable. Denies chest pain and shortness of breath. Denies palpitations. Denies edema. BP is up today on arrival. but is angry with her insurance on arrival. Most have been ok. DM: States she can no longer afford Jardiance. Discussed trying another med in that class. Needs alternative. Continues taking Glipizide and Lantus. Checking her sugars BID. Up and down. HLD: No myalgias Note was copied and pasted, without alteration from previous ov: Diabetes: Checking blood glucose twice a day. Feels evening glucose is all over partially due to not eating at the same time every day. Insulin 30 units in the morning instead of the evening since she saw Keeley. She brings in her sugar list. Her evening doses are higher. Was on trulicity but could not get it. They have been adjusting insulin instead. Can't take metformin as well. HTN: Patient is compliant with meds Yes Monitors bp at home: Yes. Denies side effects: Yes. Chest pain: No. Dyspnea: No. Edema: No. Palpitations: No. Syncope: No. Headache: No. Dizziness: No. Follows with pulmonary Will need annual follow up of renal cyst. Still sees [facility]. Mammogram was normal. MEDICATIONS: Current Outpatient Medications Medication Sig losartan (COZAAR) 50 mg tablet Take 1 tablet by mouth every afternoon. empagliflozin (JARDIANCE) 10 mg tablet Take 1 tablet by mouth daily with breakfast. insulin glargine 100 unit/mL (3 mL) Inject 30 Units subcutaneously every morning. Patient assistance med, may use flex pens glipiZIDE 2.5 mg tablet Take 1 tablet (2.5 mg) by mouth two times a day before meals. pantoprazole DR (PROTONIX) 40 mg tablet Take 1 tablet by mouth every 12 hours. verapamil ER (VERELAN PM) 300 mg CPCT Take 1 capsule by mouth daily at bedtime. pravastatin (PRAVACHOL) 80 mg tablet Take 1 tablet by mouth once daily. ondansetron orally disintegrating (ZOFRAN ODT) 4 mg disintegrating tablet Take 1 tablet by mouth every 6 hours as needed for nausea/vomiting. meclizine (ANTIVERT) 12.5 mg tab Take 1 tablet by mouth every 6 hours as needed (dizziness). nitroglycerin sublingual (NITROSTAT) 0.4 mg SL tablet [...] + D 600 MG-200 UNIT TAB Take 1 tablet by mouth once daily. lisinopril (ZESTRIL) 30 mg tablet Take 1 tablet by mouth once daily. (Patient not taking: Reported on 11/19/2024) No current facility-administered medications for this visit. ALLERGIES: ALLERGIES Allergen Reactions Amoxicillin Diarrhea Fosamax [Alendronat* Other: See Comments myalgia Metformin Diarrhea With IR and ER forms Shellfish Diarrhea, Vomiting PAST MEDICAL HISTORY Diagnosis Date Arthritis Breast cancer (HCC) 02/18/2011 CAD (coronary artery disease) s/p stents CORONARY ATHEROSCLER UNSPEC VESSEL 06/12/2009 CTS (carpal tunnel syndrome) Cystocele, midline 2006 Diverticulitis Duodenal ulcer 01/2024 Esophagitis, unspecified hiatal hernia, gastritis Essential hypertension, benign Gastrointestinal hemorrhage, unspecified gastrointestinal hemorrhage type 01/2024 History of colon polyps History of percutaneous left heart catheterization 06/24/2011 done at [facility] Hydrosdphrosis, bilateral 12/16/2023 Hydroureter Lung nodule 01/2024 Malignant neoplasm of breast (female), unspecified site 1998 Breast cancer right Mixed hyperlipidemia OBESITY 12/16/2005 Osteoarthritis of right knee Osteopenia 05/21/2010 Paroxysmal SVT (supraventricular tachycardia) ([facility]) Dr Marcelo Persistent atrial fibrillation (HCC) Post-menopausal bleeding 2006 TUBERCULIN TEST REACTION NO TBC 12/16/2005 Type 2 diabetes mellitus without complication, without long-term current use of insulin (HCC) Unspecified constipation Unspecified glaucoma(365.9) Glaucoma Low tension Urinary retention PAST SURGICAL HISTORY Procedure Laterality Date APPENDECTOMY BREAST BX NEEDLE CORE RIGHT 06/17/2008 U/S needle core bx right axilla BREAST SURGERY HX CMBND ANTERPOST COLPORRAPHY W/CYSTO 2004 Bladder and rectum repair COLON SURGERY HX Diverticular disease COLONOSCOPY (more content not included)... [facility] 11-19-2024 History of Present illness Narrative Patient presents with: Follow Up HPI: Patient presents today for office visit for follow up. Follows with [facility]. Recently started on Losartan 50 mg daily. Lisinopril stopped. Caused coughing. Has been monitoring her BP at home. Stable. Denies chest pain and shortness of breath. Denies palpitations. Denies edema. BP is up today on arrival. but is angry with her insurance on arrival. Most have been ok. DM: States she can no longer afford Jardiance. Discussed trying another med in that class. Needs alternative. Continues taking Glipizide and Lantus. Checking her sugars BID. Up and down. HLD: No myalgias Note was copied and pasted, without alteration from previous ov: Diabetes: Checking blood glucose twice a day. Feels evening glucose is all over partially due to not eating at the same time every day. Insulin 30 units in the morning instead of the evening since she saw Kee[facility]. She brings in her sugar list. Her evening doses are higher. Was on trulicity but could not get it. They have been adjusting insulin instead. Can't take metformin as well. HTN: Patient is compliant with meds Yes Monitors bp at home: Yes. Denies side effects: Yes. Chest pain: No. Dyspnea: No. Edema: No. Palpitations: No. Syncope: No. Headache: No. Dizziness: No. Follows with pulmonary Will need annual follow up of renal cyst. Still sees [facility]. Mammogram was normal. MEDICATIONS: Current Outpatient Medications Medication Sig losartan (COZAAR) 50 mg tablet Take 1 tablet by mouth every afternoon. empagliflozin (JARDIANCE) 10 mg tablet Take 1 tablet by mouth daily with breakfast. insulin glargine 100 unit/mL (3 mL) Inject 30 Units subcutaneously every morning. Patient assistance med, may use flex pens glipiZIDE 2.5 mg tablet Take 1 tablet (2.5 mg) by mouth two times a day before meals. pantoprazole DR (PROTONIX) 40 mg tablet Take 1 tablet by mouth every 12 hours. verapamil ER (VERELAN PM) 300 mg CPCT Take 1 capsule by mouth daily at bedtime. pravastatin (PRAVACHOL) 80 mg tablet Take 1 tablet by mouth once daily. ondansetron orally disintegrating (ZOFRAN ODT) 4 mg disintegrating tablet Take 1 tablet by mouth every 6 hours as needed for nausea/vomiting. meclizine (ANTIVERT) 12.5 mg tab Take 1 tablet by mouth every 6 hours as needed (dizziness). nitroglycerin sublingual (NITROSTAT) 0.4 mg SL tablet [...] + D 600 MG-200 UNIT TAB Take 1 tablet by mouth once daily. lisinopril (ZESTRIL) 30 mg tablet Take 1 tablet by mouth once daily. (Patient not taking: Reported on 11/19/2024) No current facility-administered medications for this visit. ALLERGIES: ALLERGIES Allergen Reactions Amoxicillin Diarrhea Fosamax [Alendronat* Other: See Comments myalgia Metformin Diarrhea With IR and ER forms Shellfish Diarrhea, Vomiting PAST MEDICAL HISTORY Diagnosis Date Arthritis Breast cancer (HCC) 02/18/2011 CAD (coronary artery disease) s/p stents CORONARY ATHEROSCLER UNSPEC VESSEL 06/12/2009 CTS (carpal tunnel syndrome) Cystocele, midline 2006 Diverticulitis Duodenal ulcer 01/2024 Esophagitis, unspecified hiatal hernia, gastritis Essential hypertension, benign Gastrointestinal hemorrhage, unspecified gastrointestinal hemorrhage type 01/2024 History of colon polyps History of percutaneous left heart catheterization 06/24/2011 done at [facility] Hydronephrosis, bilateral 12/16/2023 Hydroureter Lung nodule 01/2024 Malignant neoplasm of breast (female), unspecified site 1998 Breast cancer right Mixed hyperlipidemia OBESITY 12/16/2005 Osteoarthritis of right knee Osteopenia 05/21/2010 Paroxysmal SVT (supraventricular tachycardia) (HCC) Dr Marcelo Persistent atrial fibrillation (HCC) Post-menopausal bleeding 2006 TUBERCULIN TEST REACTION NO TBC 12/16/2005 Type 2 diabetes mellitus without complication, without long-term current use of insulin (HCC) Unspecified constipation Unspecified glaucoma(365.9) Glaucoma Low tension Urinary retention PAST SURGICAL HISTORY Procedure Laterality Date APPENDECTOMY BREAST BX NEEDLE CORE RIGHT 06/17/2008 U/S needle core bx right axilla BREAST SURGERY HX CMBND ANTERPOST COLPORRAPHY W/CYSTO 2004 Bladder and rectum repair COLON SURGERY HX Diverticular disease COLONOSCOPY 2006 [facility] COLONOSCOPY 09/12/2014 no polyps, repeat [...] HX HEART CATHETERIZATION 2009 stent x 4 LAPS COLECTOMY PRTL W/COLOPXTSTMY LW ANAST 11/12/2011 lap low anterior resection sigmoid for diverticular disease LUMPECTOMY/RADIOTHERAPY DIAG MAMM/A10 1998 Right breast PAST SURGICAL HISTORY OF 2023 endoscopy STEREOTACTIC CORE BIOPSY 06/11/2007 LEFT TONSILLECTOMY HX TOTAL ABDOMINAL HYSTERECT W/WO RMVL TUBE OVARY 1976 Hysterectomy, ANN No BSO FAMILY HISTORY Problem Relation Age of Onset Diabetes Mother Hypertension Mother Lipids Mother Stroke Mother Ischemic Heart Disease Mother DVT Father Breast Cancer Maternal Aunt Social History Tobacco Use Smoking status: Never Smokeless tobacco: Never Vaping Use Vaping status: Never Used Substance Use Topics Alcohol use: Not Currently Drug use: Never Reviewed current medications, allergies, past medical history, surgical history, family history and social history today. REVIEW OF SYSTEMS No gi or gu issues. All other reviewed and negative other than HPI. HEALTH MAINTENANCE: Reviewed health maintenance issues today and recommended the following in detail. HbA1C due on 08/12/2024 Colonoscopy due on 09/17/2024-had polyps. Desires to wait with weather. Advance Directive Discussion-discussed Urine Albumin:Creatinine Ratio due on 11/12/2024 VITALS: BP 170/84 Pulse 67 Ht 162.6 cm (5' 4) Wt 66.7 kg (147 lb) BMI 25.23 kg/m Last 4 Encounter Wt Readings: Date: Wt: 11/19/2024 66.7 kg (147 lb) 07/13/2024 63.5 kg (140 lb) 06/20/2024 63 kg (139 lb) 05/12/2024 62.1 kg (137 lb) PHYSICAL EXAMINATION: General appearance: Well appearing, [...] joint swelling, deformity, or tenderness ASSESSMENT/PLAN: 1. Essential hypertension - ICD9: 401.9, ICD10: I10 (primary diagnosis) - Home blood pressure readings controlled - bring cuff in and validate bp in two to four weeks. - COMPLETE BLOOD COUNT AND DIFFERENTIAL - COMPREHENSIVE METABOLIC PANEL - LIPID PANEL BASIC 2. Mixed hyperlipidemia - ICD9: 272.2, ICD10: E78.2 - Controlled - Counseled on healthy diet and regular exercise 3. Paroxysmal SVT (supraventricular tachycardia) (HCC) - ICD9: 427.0, ICD10: I47.10 - stable. 4. Persistent atrial fibrillation (HCC) - ICD9: 427.31, ICD10: I48.19 - doing well . Per cardiology 5. Type 2 diabetes mellitus without complication, without long-term current use of insulin (HCC) - ICD9: 250.00, ICD10: E11.9 - see if invokana is covered. Was out of med for a month so A1c may be higher. - HEMOGLOBIN A1C - CANAGLIFLOZIN 100 MG TABLET - ALBUMIN/CREATININE RATIO, URINE 6. Lung nodule - ICD9: 793.11, ICD10: R91.1 - CONSULT TO PULM/CRITICAL CARE 7. Radiation fibrosis of lung (HCC) - ICD9: 508.1, E926.9, ICD10: J70.1 - over due for follow up. - CONSULT TO PULM/CRITICAL CARE 8. Gastroesophageal reflux disease without esophagitis - ICD9: 530.81, ICD10: K21.9 - doing well. 9. Granulomatous disease (HCC) - ICD9: 288.1, ICD10: D71 - CONSULT TO PULM/CRITICAL CARE 10. Low serum vitamin B12 - ICD9: 266.2, ICD10: E53.8 - VITAMIN B12 [place] in two to four weeks and prn. documented in this encounter [facility] 08-09-2024 History of Present illness Narrative Radiology Service Progress Note PATIENT NAME: Kellie Dozier DATE OF SERVICE: August 09, 2024 TIME: 11:56 AM PATIENT IDENTITY VERIFICATION COMPLETED USING TWO (2) IDENTIFIERS: Name and Date of confirmed by patient verbally. FALL SCREENING: Has the patient had 2 falls in the last year or 1 fall with injury or currently using an Ambulatory Assistive Device (Walker, Cane, Wheelchair, Crutches, etc.)? No PATIENT GENDER DATA: Female. status: : No status: NO. PATIENT RELEVANT IMPLANT DATA REVIEWED: Yes PATIENT PRESENTS WITH AN IMPLANTABLE OR ATTACHED BITE BLOCK MAKER: No RADIOLOGY DEPARTMENT: CT; Exam(s) Completed: Chest PERIPHERAL IV DATA: Not applicable SIGNED BY: RT Darrion(R) August 09, 2024 11:56 AM documented in this encounter [facility] 07-13-2024 History of Present illness Narrative Patient presents with: Diabetes HPI: Patient presents today for office visit for follow units up. Diabetes: Checking blood glucose twice a day. Feels evening glucose is all over partially due to not eating at the same time every day. Insulin 30 units in the morning instead of the evening since she saw Keeley. She brings in her sugar list. Her evening doses are higher. Was on trulicity but could not get it. They have been adjusting insulin instead. Can't take metformin as well. HTN: Patient is compliant with meds Yes Monitors bp at home: Yes. Denies side effects: Yes. Chest pain: No. Dyspnea: No. Edema: No. Palpitations: No. Syncope: No. Headache: No. Dizziness: No. Follows with pulmonary Will need annual follow up of renal cyst. Still sees [facility]. Mammogram was normal. Latest Ref Rng 05/12/2024 WBC 3.70 - 11.00 k/uL 8.78 RBC 3.90 - 5.20 m/uL 4.26 Hemoglobin 11.5 - 15.5 g/dL 12.8 Hematocrit 36.0 - 46.0 % 39.7 MCV 80.0 - 100.0 fL 93.2 MCH 26.0 - 34.0 pg 30.0 MCHC 30.5 - 36.0 g/dL 32.2 RDW-CV 11.5 - 15.0 % 15.0 Platelet Count 150 - 400 k/uL 243 MPV 9.0 - 12.7 fL 10.6 Neut% % 71.2 Abs Neut (ANC) 1.45 - 7.50 k/uL 6.26 Lymph% % 17.1 Abs Lymph 1.00 - 4.00 k/uL 1.50 [place]% % 8.8 Abs [place] <0.87 k/uL 0.77 Eosin% % 1.5 Abs Eosin <0.46 k/uL 0.13 Baso% % 0.9 Abs Baso <0.11 k/uL 0.08 Immature Gran % % 0.5 IMMATURE GRANS (ABS) <0.10 k/uL 0.04 NRBC /100 WBC 0.0 Absolute nRBC <0.01 k/uL <0.01 DTYPE Auto Protein, Total 6.3 - 8.0 g/dL 7.0 Albumin 3.9 - 4.9 g/dL 3.9 Calcium 8.5 - 10.2 mg/dL 9.9 Bilirubin, Total 0.2 - 1.3 mg/dL 0.5 Alkaline Phosphatase 34 - 123 U/L 97 AST 13 - 35 U/L 21 ALT 7 - 38 U/L 17 Glucose 74 - 99 mg/dL 151 (H) BUN 7 - 21 mg/dL 19 Creatinine 0.58 - 0.96 mg/dL 0.74 Sodium 136 - 144 mmol/L 142 Potassium 3.7 - 5.1 mmol/L 4.8 Chloride 98 - 107 mmol/L 105 CO2 22 - 30 mmol/L 26 Anion Gap 8 - 15 mmol/L 11 eGFR >=60 mL/min/1.73m 82 Iron 41 - 186 ug/dL 145 TIBC 232 - 386 ug/dL 313 Transferrin Saturation 15.0 - 57.0 % 46.3 Hemoglobin A1C 4.3 - 5.6 % 8.8 (H) Estimated Average Glucose mg/dL 206 Normalized Calcium 1.08 - 1.30 mmol/L 1.26 Ionized Calcium 1.08 - 1.30 mmol/L 1.28 Legend: (H) High MEDICATIONS: Current Outpatient Medications Medication Sig insulin glargine 100 unit/mL (3 mL) Inject 30 Units subcutaneously every morning. Patient assistance med, may use flex pens glipiZIDE 2.5 mg tablet Take 1 tablet (2.5 mg) by mouth two times a day before meals. lisinopril (ZESTRIL) 30 mg tablet Take 1 tablet by mouth once daily. pantoprazole DR (PROTONIX) 40 mg tablet Take 1 tablet by mouth every 12 hours. verapamil ER (VERELAN PM) 300 mg CPCT Take 1 capsule by mouth daily at bedtime. pravastatin (PRAVACHOL) 80 mg tablet Take 1 tablet by mouth once daily. ondansetron orally disintegrating (ZOFRAN ODT) 4 mg disintegrating tablet Take 1 tablet by mouth every 6 hours as needed for nausea/vomiting. meclizine (ANTIVERT) 12.5 mg tab Take 1 tablet by mouth every 6 hours as needed (dizziness). nitroglycerin sublingual (NITROSTAT) 0.4 mg SL tablet Dissolve 1 tablet under the tongue as needed for chest pain. If no pain relief call 911. insulin needles, DISPOSABLE, (PEN NEEDLE) 31 gauge x 03/17 ndle Use as directed once daily as directed DM: yes Insulin: yes DX: E11.9 cyanocobalamin (VITAMIN B-12) 1,000 mcg tab Take 1 tablet by mouth once daily. brimonidine (ALPHAGAN P) 0.15 % ophthalmic solution Use 1 Drop in both eyes three times daily. pyridoxine hcl(VITAMIN B-6 100 MG TAB) Take one(1) tablet daily. CALCIUM + D 600 MG-200 UNIT TAB Take 1 tablet by mouth once daily. No current facility-administered medications for this visit. ALLERGIES: ALLERGIES Allergen Reactions Amoxicillin Diarrhea Fosamax [Alendronat* Other: See Comments myalgia Metformin Diarrhea With IR and ER forms Shellfish Diarrhea, Vomiting PAST MEDICAL HISTORY No date: Arthritis 02/18/2011: Breast cancer ([facility]) No date: CAD (coronary artery disease) Comment: s/p stents 06/12/2009: CORONARY ATHEROSCLER UNSPEC VESSEL No date: CTS (carpal tunnel syndrome) 2006: Cystocele, midline No date: Diverticulitis 01/2024: Duodenal ulcer No date: Esophagitis, unspecified Comment: hiatal hernia, gastritis No date: Essential hypertension, benign 01/2024: Gastrointestinal hemorrhage, unspecified gastrointestinal hemorrhage type No date: History of colon polyps 06/24/2011: History of percutaneous left heart catheterization Comment: done at [facility] 12/16/2023: Hydronephrosis, bilateral No date: Hydroureter 01/2024: Lung nodule 1998: Malignant neoplasm of breast (female), unspecified site Comment: Breast cancer right No date: Mixed hyperlipidemia 12/16/2005: OBESITY No date: Osteoarthritis of right knee 05/21/2010: Osteopenia No date: Paroxysmal SVT (supraventricular tachycardia) ([facility]) Comment: Dr Marcelo No date: Persistent atrial fibrillation ([facility]) 2006: Post-menopausal bleeding 12/16/2005: TUBERCULIN TEST REACTION NO TBC No date: Type 2 diabetes mellitus without complication, without long- term current use of insulin ([facility]) No date: Unspecified constipation No date: Unspecified glaucoma(365.9) Comment: Glaucoma Low tension No date: Urinary retention PAST SURGICAL HISTORY No date: APPENDECTOMY 06/17/2008: BREAST BX NEEDLE CORE RIGHT Comment: U/S needle core bx right axilla No date: BREAST SURGERY HX 2005: CMBND ANTERPOST COLPORRAPHY W/CYSTO Comment: Bladder and rectum repair No date: COLON SURGERY HX Comment: Diverticular disease 2007: COLONOSCOPY Comment: [place] 09/12/2014: COLONOSCOPY Comment: no polyps, repeat due 201810/17/2011: COLONOSCOPY & POLYPECTOMY Comment: diverticulosis with strictures, polyps; repeat due 2013; [place] 09/11/2020: COLONOSCOPY FLX DX W/COLLJ SPEC WHEN PFRMD Comment: 22 mm polyp, repeat in 1 year for surveillance 09/11/2020: COLONOSCOPY FLX DX W/COLLJ SPEC WHEN PFRMD Comment: Colonoscopy 09/17/2021: COLONOSCOPY FLX DX W/COLLJ SPEC WHEN PFRMD Comment: repeat in 3 years 02/24/2007: EGD TRANSORAL BIOPSY SINGLE/MULTIPLE Comment: Esophagitis,Hiatal hernia, Gastritis 11/13/2016: ESOPHAGOGASTRODUODENOSCOPY TRANSORAL DIAGNOSTIC Comment: EGD No date: EYE SURGERY HX 2008: HEART CATHETERIZATION Comment: stent x 4 11/12/2011: LAPS COLECTOMY PRTL W/COLOPXTSTMY LW ANAST Comment: lap low anterior resection sigmoid for diverticular disease 1998: LUMPECTOMY/RADIOTHERAPY DIAG MAMM/A10 Comment: Right breast 2023: PAST SURGICAL HISTORY OF Comment: endoscopy 06/11/2007: STEREOTACTIC CORE BIOPSY Comment: LEFT No date: TONSILLECTOMY HX 1976: TOTAL ABDOMINAL HYSTERECT W/WO RMVL TUBE OVARY Comment: Hysterectomy, ANN No BSO FAMILY HISTORY Problem Relation Age of Onset Diabetes Mother Hypertension Mother Lipids Mother Stroke Mother Ischemic Heart Disease Mother DVT Father Breast Cancer Maternal Aunt Social History Tobacco Use Smoking status: Never Smokeless tobacco: Never Vaping Use Vaping status: Never Used Substance Use Topics Alcohol use: Not Currently Drug use: Never Reviewed current medications, allergies, past medical history, surgical history, family history and social history today. REVIEW OF SYSTEMS All other reviewed and negative other than HPI. HEALTH MAINTENANCE: Reviewed health maintenance issues today and recommended the following in detail. Covid-19 Vaccine(1 - 2022-24 season) Never done Influenza Vaccine(1) due on 07/03/2024 Colonoscopy due on 09/17/2024-she is unsure she wants to pursue. Discussed risks and benefits. VITALS: BP 104/62 Pulse (!) 52 Wt 63.5 kg (140 lb) SpO2 97% BMI 24.03 kg/m Last 4 Encounter Wt Readings: Date: Wt: 06/20/2024 63 kg (139 lb) 05/12/2024 62.1 kg (137 lb) 04/12/2024 62.1 kg (137 lb) 02/22/2024 61.7 kg (136 lb) PHYSICAL EXAMINATION: General appearance: Well appearing, [...] discoloration, clubbing or cyanosis. Good capillary refill. ASSESSMENT/PLAN: 1. Essential hypertension - ICD9: 401.9, ICD10: I10 (primary diagnosis) - Controlled - Continue current medications - COMPREHENSIVE METABOLIC PANEL - LIPID PANEL BASIC 2. Mixed hyperlipidemia - ICD9: 272.2, ICD10: E78.2 - Control undetermined, due for labs - Continue current medications - Counseled on healthy diet and regular exercise 3. Atherosclerosis of coronary artery of [place] heart without angina pectoris, unspecified vessel or lesion type - ICD9: 414.01, ICD10: I25.10 - stable. Per cardiology 4. Persistent atrial fibrillation (HCC) - ICD9: 427.31, ICD10: I48.19 - stable. 5. Lung nodule - ICD9: 793.11, ICD10: R91.1 - per pulmonary. 6. Radiation fibrosis of lung (HCC) - ICD9: 508.1, E926.9, ICD10: J70.1 - stable 7. Gastroesophageal reflux disease without esophagitis - ICD9: 530.81, ICD10: K21.9 - doing well. 8. History of GI bleed - ICD9: V12.79, ICD10: Z87.19 - follow cbc. Does not have to go back to gi. 9. Type 2 diabetes mellitus without complication, without long-term current use of insulin (HCC) - ICD9: 250.00, ICD10: E11.9 - add meds. Discussed risks and benefits of new medication with the patient. Advised them to call if any side effects or questions. - check labs next month. Call if any low sugars. - EMPAGLIFLOZIN 10 MG TABLET - HEMOGLOBIN A1C 10. Iron deficiency anemia due to chronic blood loss - ICD9: 280.0, ICD10: D50.0 - cbc has been good. 11. History of breast cancer - ICD9: V10.3, ICD10: Z85.3 - up to date on testing. 12. Osteopenia, unspecified location - ICD9: 733.90, ICD10: M85.80 - declines testing due to her age Santo Love MD RTO in six weeks or prn. documented in this encounter [facility] 07-06-2024 Note Formatting of this n ote might be different from the original. July 06, 2024 PID: [id number] Kellie Dozier [address] [place] [address] Dear Ms. Dozier, We are pleased to inform you that the results of your recent breast imaging exam on 07/05/2024 are normal. Breast tissue can be either dense or not dense. Dense tissue makes it harder to find breast cancer on a mammogram and also raises the risk of developing breast cancer. Your breast tissue is not dense. Talk to your healthcare provider about breast density, risks for breast cancer, and your individual situation. Early detection of cancer is very important. We also understand recommendations regarding breast cancer screening are controversial. Please discuss with your primary care provider which strategy is best for you and whether a mammogram is right for you. Your imaging studies and report will be kept on file at [facility] as part of your permanent medical record and are available for your continuing care. Thank you for allowing us to help in meeting your health care needs. Sincerely, Dr. Lao Interpreting Radiologist [facility] (Normal over 40) [facility] 07-06-2024 Miscellaneous Notes July 06, 2024 PID: [id number] Kellie Dozier [address] [address] Dear Ms. Dozier, We are pleased to inform you that the results of your recent breast imaging exam on 07/05/2024 are normal. Breast tissue can be either dense or not dense. Dense tissue makes it harder to find breast cancer on a mammogram and also raises the risk of developing breast cancer. Your breast tissue is not dense. Talk to your healthcare provider about breast density, risks for breast cancer, and your individual situation. Early detection of cancer is very important. We also understand recommendations regarding breast cancer screening are controversial. Please discuss with your primary care provider which strategy is best for you and whether a mammogram is right for you. Your imaging studies and report will be kept on file at [facility] as part of your permanent medical record and are available for your continuing care. Thank you for allowing us to help in meeting your health care needs. Sincerely, Dr. Lao Interpreting Radiologist [facility] (Normal over 40) documented in this encounter [facility] 07-05-2024 History of Present illness Narrative Radiology Service Progress Note PATIENT NAME: Kellie Dozier DATE OF SERVICE: July 05, 2024 TIME: 8:55 AM PATIENT IDENTITY VERIFICATION COMPLETED USING TWO (2) IDENTIFIERS: Name and Date of confirmed by patient verbally. FALL SCREENING: Has the patient had 2 falls in the last year or 1 fall with injury or currently using an Ambulatory Assistive Device (Walker, Cane, Wheelchair, Crutches, etc.)? No PATIENT GENDER DATA: Female. status: : No status: NO. PATIENT RELEVANT IMPLANT DATA REVIEWED: Not Applicable PATIENT PRESENTS WITH AN IMPLANTABLE OR ATTACHED BITE BLOCK MAKER: No RADIOLOGY DEPARTMENT: Mammography PERIPHERAL IV DATA: Not applicable SIGNED BY: RT Lolis(R) July 05, 2024 8:55 AM documented in this encounter [facility] 06-20-2024 Instructions Juliana Davis APRN.CNP - 06/20/2024 11:04 AM EDT 1) Start glipizide 2.5 mg 2 x day with breakfast and supper 2) Continue Lantus 30 units in morning 3) See Dr. Love 07/13/24 documented in this encounter [facility] 06-20-2024 History of Present illness Narrative This is a 79 year old female who presents today with: Patient presents with: Hypertension: Follow up Diabetes: Follow up HISTORY OF PRESENT ILLNESS: Kellie Dozier is a 79 year old female. Patient presents with: Hypertension: Follow up Diabetes: Follow up Off Eliquis after bleeding ulcer DM: Reports overall feeling well. Medication side effects: Yes. Home sugar checks: yes, evening BSS high Hypoglycemic spells: Yes. In mornings Watching diet: No. Unexpected weight loss: No. Polyuria, polydipsia: No. Vision Changes: No. Foot lesions or numbness or pain: No HTN: Patient is compliant with meds Yes Monitors bp at home: Yes. Denies side effects: No. Chest pain: No. Dyspnea: No. Edema: No. Palpitations: No. Syncope: No. Headache: No. Dizziness: No. . PAST MEDICAL HISTORY: PAST MEDICAL HISTORY No date: Arthritis 02/18/2011: Breast cancer (HCC) No date: CAD (coronary artery disease) Comment: s/p stents 06/12/2009: CORONARY ATHEROSCLER UNSPEC VESSEL No date: CTS (carpal tunnel syndrome) 2006: Cystocele, midline No date: Diverticulitis 01/2024: Duodenal ulcer No date: Esophagitis, unspecified Comment: hiatal hernia, gastritis No date: Essential hypertension, benign 01/2024: Gastrointestinal hemorrhage, unspecified gastrointestinal hemorrhage type No date: History of colon polyps 06/24/2011: History of percutaneous left heart catheterization Comment: done at [facility] 12/16/2023: Hydronephrosis, bilateral No date: Hydroureter 01/2024: Lung nodule 1998: Malignant neoplasm of breast (female), unspecified site Comment: Breast cancer right No date: Mixed hyperlipidemia 12/16/2005: OBESITY No date: Osteoarthritis of right knee 05/21/2010: Osteopenia No date: Paroxysmal SVT (supraventricular tachycardia) (HCC) Comment: Dr Marcelo No date: Persistent atrial fibrillation (HCC) 2007: Post-menopausal bleeding 12/16/2005: TUBERCULIN TEST REACTION NO TBC No date: Type 2 diabetes mellitus without complication, without long- term current use of insulin (HCC) No date: Unspecified constipation No date: Unspecified glaucoma(365.9) Comment: Glaucoma Low tension No date: Urinary retention PAST SURGICAL HISTORY No date: APPENDECTOMY 06/17/2008: BREAST BX NEEDLE CORE RIGHT Comment: U/S needle core bx right axilla No date: BREAST SURGERY HX 2004: CMBND ANTERPOST COLPORRAPHY W/CYSTO Comment: Bladder and rectum repair No date: COLON SURGERY HX Comment: Diverticular disease 2007: COLONOSCOPY Comment: [place] 09/12/2014: COLONOSCOPY Comment: no polyps, repeat due 201810/17/2011: COLONOSCOPY & POLYPECTOMY Comment: diverticulosis with strictures, polyps; repeat due 2013; [place] 09/11/2020: COLONOSCOPY FLX DX W/COLLJ SPEC WHEN PFRMD Comment: 22 mm polyp, repeat in 1 year for surveillance 09/11/2020: COLONOSCOPY FLX DX W/COLLJ SPEC WHEN PFRMD Comment: Colonoscopy 09/17/2021: COLONOSCOPY FLX DX W/COLLJ SPEC WHEN PFRMD Comment: repeat in 3 years 02/24/2007: EGD TRANSORAL BIOPSY SINGLE/MULTIPLE Comment: Esophagitis,Hiatal hernia, Gastritis 11/13/2016: ESOPHAGOGASTRODUODENOSCOPY TRANSORAL DIAGNOSTIC Comment: EGD No date: EYE SURGERY HX 2009: HEART CATHETERIZATION Comment: stent x 4 11/12/2011: LAPS COLECTOMY PRTL W/COLOPXTSTMY LW ANAST Comment: lap low anterior resection sigmoid for diverticular disease 1998: LUMPECTOMY/RADIOTHERAPY DIAG MAMM/A10 Comment: Right breast 2023: PAST SURGICAL HISTORY OF Comment: endoscopy 06/11/2007: STEREOTACTIC CORE BIOPSY Comment: LEFT No date: TONSILLECTOMY HX 1975: TOTAL ABDOMINAL HYSTERECT W/WO RMVL TUBE OVARY Comment: Hysterectomy, ANN No BSO ALLERGIES Amoxicillin, Fosamax [Alendronate Sodium], Metformin, and Shellfish MEDICATIONS Current Outpatient Medications Medication Sig lisinopril (ZESTRIL) 30 mg tablet Take 1 tablet by mouth once daily. insulin glargine 100 unit/mL (3 mL) Inject 30 Units subcutaneously every morning. Patient assistance med, may use flex pens pantoprazole DR (PROTONIX) 40 mg tablet Take 1 tablet by mouth every 12 hours. verapamil ER (VERELAN PM) 300 mg CPCT Take 1 capsule by mouth daily at bedtime. pravastatin (PRAVACHOL) 80 mg tablet Take 1 tablet by mouth once daily. ondansetron orally disintegrating (ZOFRAN ODT) 4 mg disintegrating tablet Take 1 tablet by mouth every 6 hours as needed for nausea/vomiting. meclizine (ANTIVERT) 12.5 mg tab Take 1 tablet by mouth every 6 hours as needed (dizziness). nitroglycerin sublingual (NITROSTAT) 0.4 mg SL tablet [...] + D 600 MG-200 UNIT TAB Take 1 tablet by mouth once daily. apixaban (ELIQUIS) 5 mg tab(s) Take 1 tablet by mouth two times a day. (Patient not taking: Reported on 04/12/2024) No current facility-administered medications for this visit. FAMILY HISTORY Problem Relation Age of Onset Diabetes Mother Hypertension Mother Lipids Mother Stroke Mother Ischemic Heart Disease Mother DVT Father Breast Cancer Maternal Aunt Social History Tobacco Use Smoking status: Never Smokeless tobacco: Never Vaping Use Vaping status: Never Used Substance Use Topics Alcohol use: Not Currently Drug use: Never EXAM: BP 140/62 Pulse 60 Resp 16 Wt 63 kg (139 lb) SpO2 97% BMI 23.86 kg/m PHYSICAL EXAM: Physical Exam Vitals reviewed. Constitutional: Appearance: Normal appearance. HENT: Head: Normocephalic. Cardiovascular: Rate and Rhythm: Normal rate and regular rhythm. Pulses: Normal pulses. Heart sounds: Normal heart sounds. Pulmonary: Effort: Pulmonary effort is normal. Breath sounds: Normal breath sounds. Abdominal: Palpations: Abdomen is soft. Musculoskeletal: Comments: Moves all ext. W/o difficulty Neurological: Mental Status: She is alert. LABS: ASSESSMENT/PLAN: 1. Essential hypertension - ICD9: 401.9, ICD10: I10 (primary diagnosis) - Controlled - Recommend home blood pressure monitoring, to bring results to next visit - Encouraged sodium restriction, DASH or Mediterranean diet - Recommend regular aerobic exercise 2. Type 2 diabetes mellitus without complication, without long-term current use of insulin (HCC) - ICD9: 250.00, ICD10: E11.9 - Uncontrolled - Add glipizide 2.5 mg 2x day with meals and continue lantus - INSULIN GLARGINE (U-100) 100 UNIT/ML (3 ML) SUBCUTANEOUS PEN - GLIPIZIDE 2.5 MG TABLET 3. Atherosclerosis of [place] coronary artery of [place] heart without angina pectoris - ICD9: 414.01, ICD10: I25.10 Stable Discussed treatment plan and patient voices understanding. Patient's questions answered appropriately. Medications and potential side effects were discussed and patient voices understanding. Return to the office as scheduled or as needed for worsening/no improvement. Juliana Daivs APRN.CNP documented in this encounter [facility] 05-12-2024 Instructions Juliana Davis APRN.CNP - 05/12/2024 10:27 AM EDT 1) Increase lisinopril to 30 mg daily 2) Switch Lantus to 30 units and in the morning, not evening 3) Follow up in 1 month documented in this encounter [facility] 05-12-2024 History of Present illness Narrative This is a 79 year old female who presents today with: Patient presents with: Hypertension: Follow up HISTORY OF PRESENT ILLNESS: Kellie Dozier is a 79 year old female. Patient presents with: Hypertension: Follow up HTN: Patient is compliant with meds No Monitors bp at home: occassional- 178/79, 130/?. Denies side effects: No. Chest pain: No. Dyspnea: No. Edema: No. Palpitations: No. Syncope: No. Headache: No. Dizziness: No. DM: Reports overall feeling well. Medication side effects: No. Home sugar checks: Yes. Mornings are not bad (89-- 194; evenings 260-433 Hypoglycemic spells: No. Watching diet: No. Unexpected weight loss: No. Polyuria, polydipsia: Yes. Vision Changes: No. Foot lesions or numbness or pain: No. PAST MEDICAL HISTORY: PAST MEDICAL HISTORY Diagnosis Date Arthritis Breast cancer (HCC) 02/18/2011 CAD (coronary artery disease) s/p stents CORONARY ATHEROSCLER UNSPEC VESSEL 06/12/2009 CTS (carpal tunnel syndrome) Cystocele, midline 2006 Diverticulitis Duodenal ulcer 01/2024 Esophagitis, unspecified hiatal hernia, gastritis Essential hypertension, benign Gastrointestinal hemorrhage, unspecified gastrointestinal hemorrhage type 01/2024 History of colon polyps History of percutaneous left heart catheterization 06/24/2011 done at [facility] Hydronephrosis, bilateral 12/16/2023 Hydroureter Lung nodule 01/2024 Malignant neoplasm of breast (female), unspecified site 1998 Breast cancer right Mixed hyperlipidemia OBESITY 12/16/2005 Osteoarthritis of right knee Osteopenia 05/21/2010 Paroxysmal SVT (supraventricular tachycardia) ([facility]) Dr Marcelo Persistent atrial fibrillation (HCC) Post-menopausal bleeding 2006 TUBERCULIN TEST REACTION NO TBC 12/16/2005 Type 2 diabetes mellitus without complication, without long-term current use of insulin (HCC) Unspecified constipation Unspecified glaucoma(365.9) Glaucoma Low tension Urinary retention PAST SURGICAL HISTORY Procedure Laterality Date APPENDECTOMY BREAST BX NEEDLE CORE RIGHT 06/17/2008 U/S needle core bx right axilla BREAST SURGERY HX CMBND ANTERPOST COLPORRAPHY W/CYSTO 2005 Bladder and rectum repair COLON SURGERY HX Diverticular disease COLONOSCOPY 2006 [place] COLONOSCOPY 09/12/2014 no polyps, repeat due 2018 [...] 11/13/2016 EGD EYE SURGERY HX HEART CATHETERIZATION 2008 stent x 4 LAPS COLECTOMY PRTL W/COLOPXTSTMY LW ANAST 11/12/2011 lap low anterior resection sigmoid for diverticular disease LUMPECTOMY/RADIOTHERAPY DIAG MAMM/A10 1998 Right breast PAST SURGICAL HISTORY OF 2023 endoscopy STEREOTACTIC CORE BIOPSY 06/11/2007 LEFT TONSILLECTOMY HX TOTAL ABDOMINAL HYSTERECT W/WO RMVL TUBE OVARY 1975 Hysterectomy, ANN No BSO ALLERGIES Amoxicillin, Fosamax [Alendronate Sodium], Metformin, and Shellfish MEDICATIONS Current Outpatient Medications Medication Sig insulin glargine 100 unit/mL (3 mL) Inject 20 Units subcutaneously daily at bedtime. Patient assistance med, may use flex pens pantoprazole DR (PROTONIX) 40 mg tablet Take 1 tablet by mouth every 12 hours. dulaglutide (TRULICITY) 4.5 mg/0.5 mL pen injector Inject 4.5 mg subcutaneously one time a week. verapamil ER (VERELAN PM) 300 mg CPCT Take 1 capsule by mouth daily at bedtime. pravastatin (PRAVACHOL) 80 mg tablet Take 1 tablet by mouth once daily. lisinopril (ZESTRIL) 20 mg tablet Take 1 tablet by mouth once daily. ondansetron orally disintegrating (ZOFRAN ODT) 4 mg disintegrating tablet Take 1 tablet by mouth every 6 hours as needed for nausea/vomiting. meclizine (ANTIVERT) 12.5 mg tab Take 1 tablet by mouth every 6 hours as needed (dizziness). nitroglycerin sublingual (NITROSTAT) 0.4 mg SL tablet [...] + D 600 MG-200 UNIT TAB Take 1 tablet by mouth once daily. semaglutide (OZEMPIC) 0.25 mg or 0.5 mg (2 mg/3 mL) pen Inject 0.5 mg subcutaneously one time a week. (Patient not taking: Reported on 05/12/2024) apixaban (ELIQUIS) 5 mg tab(s) Take 1 tablet by mouth two times a day. (Patient not taking: Reported on 04/12/2024) No current facility-administered medications for this visit. FAMILY HISTORY Problem Relation Age of Onset Diabetes Mother Hypertension Mother Lipids Mother Stroke Mother Ischemic Heart Disease Mother DVT Father Breast Cancer Maternal Aunt Social History Tobacco Use Smoking status: Never Smokeless tobacco: Never Vaping Use Vaping Use: Never used Substance Use Topics Alcohol use: Not Currently Drug use: Never EXAM: BP 142/56 Pulse 72 Resp 16 Wt 62.1 kg (137 lb) SpO2 96% BMI 23.52 kg/m PHYSICAL EXAM: Physical Exam Vitals reviewed. Constitutional: Appearance: Normal appearance. HENT: Head: Normocephalic. Neck: Comments: No palpable nodules or thyroid enlargement Cardiovascular: Rate and Rhythm: Normal rate and regular rhythm. Heart sounds: Normal heart sounds. Pulmonary: Effort: Pulmonary effort is normal. Breath sounds: Normal breath sounds. Abdominal: General: Bowel sounds are normal. Palpations: Abdomen is soft. Musculoskeletal: Cervical back: Neck supple. Skin: General: Skin is warm and dry. Neurological: Mental Status: She is alert. LABS: pending ASSESSMENT/PLAN: 1. Essential hypertension - ICD9: 401.9, ICD10: I10 (primary diagnosis) - Uncontrolled - Recommend home blood pressure monitoring, to bring results to next visit - Encouraged sodium restriction, DASH or Mediterranean diet - Recommend regular aerobic exercise - Increase lisinopril to 30 units daily 2. Type 2 diabetes mellitus without complication, without long-term current use of insulin (HCC) - ICD9: 250.00, ICD10: E11.9 - Uncontrolled - Stop Trulicity/ Ozempic - Increase Lantus to 30 units in AM rather than PM - Labs pending - Follow up in 1 month Discussed treatment plan and patient voices understanding. Patient's questions answered appropriately. Medications and potential side effects were discussed and patient voices understanding. Return to the office as scheduled or as needed for worsening/no improvement. Juliana Davis APRN.CNP documented in this encounter [facility] 04-28-2024 Telephone encounter Note A generic of glargine FlexPen is preferred. [facility] 04-28-2024 Miscellaneous Notes A generic of glargine FlexPen is preferred. Kaylynn with [facility] called to get clarification on what is being request for pt regarding insulin glargine Does pt ant flex pens if so 5 to a box with each being 3 ml. or Vial which contains 10 mls. Please advise pharmacy and may need to send new prescription. Oni Aleman LPN documented in this encounter [facility] 04-28-2024 Telephone encounter Note Kaylynn with [facility] called to get clarification on what is being request for pt regarding insulin glargine Does pt ant flex pens if so 5 to a box with each being 3 ml. or Vial which contains 10 mls. Please advise pharmacy and may need to send new prescription. Oni Aleman LPN [facility] 04-28-2024 Telephone encounter Note Prescription Refill Information The patient has been identified by name and date of : Yes Caregiver verified no other encounters exist for this prescription request: Yes Caregiver confirmed with patient/requestor that no other refills are due, in the near future, with this provider at this time: Yes The last office visit in the department: 04-12-24 Does the patient have a future office visit with this provider/department: Yes Requested Prescriptions Pending Prescriptions Disp Refills insulin glargine 100 unit/mL (3 mL) 2 Each 3 Sig: Inject 20 Units subcutaneously daily at bedtime. Patient assistance med Kaylynn Mosley April 28, 2024 8:[address] [facility] 04-28-2024 Miscellaneous Notes Prescription Refill Information The patient has been identified by name and date of : Yes Caregiver verified no other encounters exist for this prescription request: Yes Caregiver confirmed with patient/requestor that no other refills are due, in the near future, with this provider at this time: Yes The last office visit in the department: 04-12-24 Does the patient have a future office visit with this provider/department: Yes Requested Prescriptions Pending Prescriptions Disp Refills insulin glargine 100 unit/mL (3 mL) 2 Each 3 Sig: Inject 20 Units subcutaneously daily at bedtime. Patient assistance maria d Aleman [facility] April 28, 2024 8:07 AM documented in this encounter [facility] 04-13-2024 Telephone encounter Note Spoke with patient. Scheduled with Keeley Davis. Tierney White MA [facility] 04-13-2024 Miscellaneous Notes Spoke with patient. Scheduled with Keeley Davis. Tierney White MA Message left for return call to schedule 1 month BP check. Tierney White MA I forgot to put on her after visit summary from today to do a bp check in a nurse in a month when she does her next set of labs. documented in this encounter [facility] 04-12-2024 Telephone encounter Note Message left for return call to schedule 1 month BP check. Tierney White MA [facility] 04-12-2024 Telephone encounter Note I forgot to put on her after visit summary from today to do a bp check in a nurse in a month when she does her next set of labs. [facility] 04-12-2024 Instructions Santo Love MD - 04/12/2024 4:01 PM EDT Stop iron. Resume protonix and start new sugar med and drop off sugars in a month documented in this encounter [facility] 04-12-2024 History of Present illness Narrative Patient presents with: Follow Up HPI: Patient presents today for office visit for Follow up. GERD: She has stopped the Protonix No current symptoms Heartburn controlled No bloody of black stool No GI complaints HLD: Continues on Pravastatin 80 mg daily No myalgias HTN: Continues on Lisinopril 20 mg daily Verapamil 300 mg daily Monitor BP at home occ Denies chest pain and shortness of breath Denies headaches No new or worsening dizziness. Hx of vertigo. Takes meclizine prn Denies palpitations and syncope Denies edema Saw Pulmonary on 02/22/24 for lung nodules Recommended surveillance Follow up after chest CT scheduled for 08/09/24 Saw Urology on 02/02/24 for hydronephrosis. Renal US showed benign renal cyst, not of concern, no hydronephrosis found. Renal cyst can be followed annually. CAD: Continues to follow with [facility], Dr. Kelley. Last OV 04/07/24 Taken off Eliquis. Echo scheduled for 10/07/24 DM: Continues on Insulin 20 units qhs and Trulicity 4.5 mg weekly. Hasn't been able to get Trulicity 4.5 for almost two months. Has been taking the 3.5 mg in the interim. Just ran out completely last week. Checking sugars Tries to watch her diet Denies any hypoglycemic spells No vision changes No unexpected weight loss She had significant gi bleeding. Last egd showed healing pyloric channel. She is not taking her ppi. Suggested she resume. Has had elevated serum calcium in the past and ionized has been ok. Latest Ref Rng 04/07/2024 WBC 3.70 - 11.00 k/uL 7.87 RBC 3.90 - 5.20 m/uL 4.77 Hemoglobin 11.5 - 15.5 g/dL 13.7 Hematocrit 36.0 - 46.0 % 42.8 MCV 80.0 - 100.0 fL 89.7 MCH 26.0 - 34.0 pg 28.7 MCHC 30.5 - 36.0 g/dL 32.0 RDW-CV 11.5 - 15.0 % 16.3 (H) Platelet Count 150 - 400 k/uL 252 MPV 9.0 - 12.7 fL 10.6 Neut% % 63.8 Abs Neut (ANC) 1.45 - 7.50 k/uL 5.03 Lymph% % 23.4 Abs Lymph 1.00 - 4.00 k/uL 1.84 [place]% % 9.8 Abs [place] <0.87 k/uL 0.77 Eosin% % 1.7 Abs Eosin <0.46 k/uL 0.13 Baso% % 0.9 Abs Baso <0.11 k/uL 0.07 Immature Gran % % 0.4 IMMATURE GRANS (ABS) <0.10 k/uL 0.03 NRBC /100 WBC 0.0 Absolute nRBC <0.01 k/uL <0.01 DTYPE Auto Protein, Total 6.3 - 8.0 g/dL 7.1 Albumin 3.9 - 4.9 g/dL 4.2 Calcium 8.5 - 10.2 mg/dL 10.5 (H) Bilirubin, Total 0.2 - 1.3 mg/dL 0.3 Alkaline Phosphatase 34 - 123 U/L 104 AST 13 - 35 U/L 21 ALT 7 - 38 U/L 13 Glucose 74 - 99 mg/dL 151 (H) BUN 7 - 21 mg/dL 17 Creatinine 0.58 - 0.96 mg/dL 0.70 Sodium 136 - 144 mmol/L 142 Potassium 3.7 - 5.1 mmol/L 3.9 Chloride 98 - 107 mmol/L 104 CO2 22 - 30 mmol/L 26 Anion Gap 8 - 15 mmol/L 12 eGFR >=60 mL/min/1.73m 88 Cholesterol, Total <200 mg/dL 147 Triglyceride <150 mg/dL 91 HDL Cholesterol >39 mg/dL 55 Non HDL Cholesterol <130 mg/dL 92 Fasting Time hrs 8 VLDL Cholesterol <30 mg/dL 18 TC:HDL Ratio <5.10 2.67 LDL Cholesterol <100 mg/dL 74 LDL:HDL Ratio <2.54 1.35 Iron 41 - 186 ug/dL 90 TIBC 232 - 386 ug/dL 318 Transferrin Saturation 15.0 - 57.0 % 28.3 Hemoglobin A1C 4.3 - 5.6 % 8.7 (H) Estimated Average Glucose mg/dL 203 Legend: (H) High MEDICATIONS: Current Outpatient Medications Medication Sig ferrous sulfate 325 mg (65 mg iron) tablet Take 1 tablet by mouth two times a day with meals. verapamil ER (VERELAN PM) 300 mg CPCT Take 1 capsule by mouth daily at bedtime. pravastatin (PRAVACHOL) 80 mg tablet Take 1 tablet by mouth once daily. lisinopril (ZESTRIL) 20 mg tablet Take 1 tablet by mouth once daily. insulin glargine 100 unit/mL (3 mL) Inject 20 Units subcutaneously daily at bedtime. Patient assistance med dulaglutide (TRULICITY) 4.5 mg/0.5 mL pen injector Inject 4.5 mg subcutaneously one time a week. ondansetron orally disintegrating (ZOFRAN ODT) 4 mg disintegrating tablet Take 1 tablet by mouth every 6 hours as needed for nausea/vomiting. meclizine (ANTIVERT) 12.5 mg tab Take 1 tablet by mouth every 6 hours as needed (dizziness). nitroglycerin sublingual (NITROSTAT) 0.4 mg SL tablet [...] + D 600 MG-200 UNIT TAB Take 1 tablet by mouth once daily. apixaban (ELIQUIS) 5 mg tab(s) Take 1 tablet by mouth two times a day. (Patient not taking: Reported on 04/12/2024) pantoprazole DR (PROTONIX) 40 mg tablet Take 1 tablet by mouth every 12 hours. (Patient not taking: Reported on 02/22/2024) No current facility-administered medications for this visit. ALLERGIES: ALLERGIES Allergen Reactions Amoxicillin Diarrhea Fosamax [Alendronat* Other: See Comments myalgia Metformin Diarrhea With IR and ER forms Shellfish Diarrhea, Vomiting PAST MEDICAL HISTORY Diagnosis Date Arthritis Breast cancer (HCC) 02/18/2011 CAD (coronary artery disease) s/p stents CORONARY ATHEROSCLER UNSPEC VESSEL 06/12/2009 CTS (carpal tunnel syndrome) Cystocele, midline 2006 Diverticulitis Duodenal ulcer 01/2024 Esophagitis, unspecified hiatal hernia, gastritis Essential hypertension, benign Gastrointestinal hemorrhage, unspecified gastrointestinal hemorrhage type 01/2024 History of colon polyps History of percutaneous left heart catheterization 06/24/2011 done at [facility] Hydronephrosis, bilateral 12/16/2023 Hydroureter Lung nodule 01/2024 Malignant neoplasm of breast (female), unspecified site 1998 Breast cancer right Mixed hyperlipidemia OBESITY 12/16/2005 Osteoarthritis of right knee Osteopenia 05/21/2010 Paroxysmal SVT (supraventricular tachycardia) ([facility]) Dr Marcelo Persistent atrial fibrillation ([facility]) Post-menopausal bleeding 2007 TUBERCULIN TEST REACTION NO TBC 12/16/2005 Type 2 diabetes mellitus without complication, without long-term current use of insulin ([facility]) Unspecified constipation Unspecified glaucoma(365.9) Glaucoma Low tension Urinary retention PAST SURGICAL HISTORY Procedure Laterality Date APPENDECTOMY BREAST BX NEEDLE CORE RIGHT 06/17/2008 U/S needle core bx right axilla BREAST SURGERY HX CMBND ANTERPOST COLPORRAPHY W/CYSTO 2004 Bladder and rectum repair COLON SURGERY HX Diverticular disease COLONOSCOPY 2006 [place] COLONOSCOPY 09/12/2014 no polyps, [...] 11/13/2016 EGD EYE SURGERY HX HEART CATHETERIZATION 2008 stent x 4 LAPS COLECTOMY PRTL W/COLOPXTSTMY LW ANAST 11/12/2011 lap low anterior resection sigmoid for diverticular disease LUMPECTOMY/RADIOTHERAPY DIAG MAMM/A10 1998 Right breast PAST SURGICAL HISTORY OF 2023 endoscopy STEREOTACTIC CORE BIOPSY 06/11/2007 LEFT TONSILLECTOMY HX TOTAL ABDOMINAL HYSTERECT W/WO RMVL TUBE OVARY 1976 Hysterectomy, ANN No BSO FAMILY HISTORY Problem Relation Age of Onset Diabetes Mother Hypertension Mother Lipids Mother Stroke Mother Ischemic Heart Disease Mother DVT Father Breast Cancer Maternal Aunt Social History Tobacco Use Smoking status: Never Smokeless tobacco: Never Vaping Use Vaping Use: Never used Substance Use Topics Alcohol use: Not Currently Drug use: Never Reviewed current medications, allergies, past medical history, surgical history, family history and social history today. REVIEW OF SYSTEMS All other reviewed and negative other than HPI. HEALTH MAINTENANCE: Reviewed health maintenance issues today and recommended the following in detail. BP Controlled (<130/80) Never done Shingrix Vaccine(2 of 3) due on 08/08/2011 DTaP,Tdap,Td Vaccine(2 - Td or Tdap) due on 04/13/2017 Covid-19 Vaccine(2022-24 season) Never done Behavioral Health Screening -Behavioral Health Screening PHQ-2 Score: 0 (Lower risk for depression) LAUREN-2 Score: 0 (Lower risk for anxiety) Recommendation: no further intervention at this time Diabetic Foot Exam -will check. VITALS: BP 174/74 Pulse 69 Ht 162.6 cm (5' 4) Wt 62.1 kg (137 lb) SpO2 98% BMI 23.52 kg/m Last 4 Encounter Wt Readings: Date: Wt: 02/22/2024 61.7 kg (136 lb) 02/08/2024 61.7 kg (136 lb) 02/02/2024 62.8 kg (138 lb 6.4 oz) 01/06/2024 62.6 kg (138 lb) PHYSICAL EXAMINATION: General appearance: Well appearing, [...] No deformities, ulcers, calluses, normal distal pulses, trace DP distal pulses, and sensitive to monofilament bilaterally. ASSESSMENT/PLAN: 1. Essential hypertension - ICD9: 401.9, ICD10: I10 (primary diagnosis) - Worsening control - bp check when comes in for labs next month. 2. Mixed hyperlipidemia - ICD9: 272.2, ICD10: E78.2 - Controlled - Continue current medications 3. Persistent atrial fibrillation (HCC) - ICD9: 427.31, ICD10: I48.19 - stable. Off anticoagulation due to gi bleed. 4. Lung nodule - ICD9: 793.11, ICD10: R91.1 - per pulmonary 5. Type 2 diabetes mellitus without complication, without long-term current use of insulin (HCC) - ICD9: 250.00, ICD10: E11.9 - change to ozempic. Drop off sugars in one month. - HEMOGLOBIN A1C - SEMAGLUTIDE 0.25 MG OR 0.5 MG (2 MG/3 ML) SUBCUTANEOUS PEN INJECTOR 6. History of breast cancer - ICD9: V10.3, ICD10: Z85.3 - GENEVA SCREENING 7. Osteopenia, unspecified location - ICD9: 733.90, ICD10: M85.80 - hold on testing due to age. 8. Granulomatous disease (HCC) - ICD9: 288.1, ICD10: D71 - per pulmonary 9. History of GI bleed - ICD9: V12.79, ICD10: Z87.19 -resume prilosec. 10. Decreased iron stores - ICD9: 790.6, ICD10: R79.0 - can stop iron. Recheck labs in one month. - COMPLETE BLOOD COUNT AND DIFFERENTIAL - IRON AND TIBC 11. Hypercalcemia - ICD9: 275.42, ICD10: E83.52 --recheck - CALCIUM, IONIZED 12. Encounter for screening mammogram for malignant neoplasm of breast - ICD9: V76.12, ICD10: Z12.31 - Follow up for annual exam in one year. - GENEVA SCREENING Santo Love MD RTO in one month. documented in this encounter [facility] 04-08-2024 History of Present illness Narrative HPI: Patient presents today for office visit for to go over labs and review chronic health problems. Epic was completely down. Because of that we elected to not charge her and have her come back to perform visit. No charge. documented in this encounter [facility] 03-14-2024 Telephone encounter Note Patient has been identified by name and date of : Yes, Provider Dr. Love Date 03-14-24 Time 4:56 pm Patient phones for refill(s): Requested Prescriptions Pending Prescriptions Disp Refills apixaban (ELIQUIS) 5 mg tab(s) 180 tablet 3 Sig: Take 1 tablet by mouth two times a day. Date of last office visit in primary care: 02/08/2024 Date of next office visit in primary care: 04/08/2024 Please advise. Thank you. Kaylynn Mosley. [facility] 03-14-2024 Miscellaneous Notes Patient has been identified by name and date of : Yes, Provider Dr. Love Date 03-14-24 Time 4:56 pm Patient phones for refill(s): Requested Prescriptions Pending Prescriptions Disp Refills apixaban (ELIQUIS) 5 mg tab(s) 180 tablet 3 Sig: Take 1 tablet by mouth two times a day. Date of last office visit in primary care: 02/08/2024 Date of next office visit in primary care: 04/08/2024 Please advise. Thank you. Kaylynn Mosley. documented in this encounter [facility] 02-23-2024 Telephone encounter Note Called patient. Verified name and date of . Patient informed of results- verbalizes understanding. Janeth Oates LPN [facility] 02-23-2024 Miscellaneous Notes Called patient. Verified name and date of . Patient informed of results- verbalizes understanding. Janeth Oates LPN ----- Message from Zac Duncan PA-C sent at 02/22/2024 6:15 PM EDT ----- Renal US with Benign Renal Cyst, not a concern , no hydronephrosis found Renal cyst can be followed with renal units annually DANNA Renteria, [place], SHASHA documented in this encounter [facility] 02-23-2024 Telephone encounter Note ----- Message from Zac Duncan PA-C sent at 02/22/2024 6:15 PM EDT ----- Renal US with Benign Renal Cyst, not a concern , no hydronephrosis found Renal cyst can be followed with renal units annually DANNA Renteria, SHASHA HOANG [facility] 02-22-2024 History of Present illness Narrative Images from the original note were not included. . Respiratory Andrew Note Patient name: Kellie Dozier PCP: Santo Love MD Referring Physician: same Consultation requested by Dr. Love for an opinion regarding lung nodule. My final recommendations will be communicated back to the requesting physician by way of shared Medical record or letter to requesting physician via US mail. CC: Lung nodule HPI: Kellie Dozier 78 year old female never smoker with PMH significant for breast cancer (radiation, no hormone therapy), CAD s/p stents, HTN, HLD, DM2, AF on Eliquis, GIB (4 units of blood) being referred for evaluation of lung nodule. Incidental note of focal area of pleural thickening and multiple subcentimeter nodules as well as evidence of old granulomatous disease noted on chest CT obtained during recent hospitalization for GI bleed. No history of occupational exposures including asbestos. Past pulmonary history notable for tuberculosis as a child. Currently denies any respiratory symptoms including shortness of breath, cough, sputum production, wheezing. No constitutional symptoms, i.e., weight loss, night sweats. DATA: Labs: Component Ref Range & Units 1 mo ago (01/06/24) 9 mo ago (05/07/23) WBC 3.70 - 11.00 k/uL 8.27 7.85 RBC 3.90 - 5.20 m/uL 3.64 Low 4.16 Hemoglobin 11.5 - 15.5 g/dL 10.5 Low 12.7 Hematocrit 36.0 - 46.0 % 33.6 Low 39.0 MCV 80.0 - 100.0 fL 92.3 93.8 MCH 26.0 - 34.0 pg 28.8 30.5 MCHC 30.5 - 36.0 g/dL 31.3 32.6 RDW-CV 11.5 - 15.0 % 15.5 High 13.4 Platelet Count 150 - 400 k/uL 310 223 MPV 9.0 - 12.7 fL 10.0 10.9 Neutrophils % % 65.7 64.6 Abs Neut 1.45 - 7.50 k/uL 5.43 5.07 Lymphocytes % % 19.5 22.7 Abs Lymph 1.00 - 4.00 k/uL 1.61 1.78 Monocytes % % 10.0 9.3 Abs [place] <0.87 k/uL 0.83 0.73 Eosinophils % % 3.1 1.9 Abs Eosin <0.46 k/uL 0.26 0.15 Basophils % % 0.7 1.0 Abs Baso <0.11 k/uL 0.06 0.08 Immature Granulocytes % % 1.0 0.5 Abs Immature Gran <0.10 k/uL 0.08 0.04 NRBC /100 WBC 0.0 0.0 Absolute nRBC <0.01 k/uL <0.01 <0.01 Diff Type Auto Imaging / Diagnostic Studies: DATE OF EXAM: Jan 12 2024 11:12AM [facility] 0541 - CT CHEST WO IVCON / PROCEDURE REASON: multiple diagnoses CLINICAL HISTORY: Breast cancer Comparison: No prior CT chest is available for comparison RESULT: Limitations: None. Lines, tubes, and devices: None. Lung parenchyma and airways: Few subcentimeter pulmonary nodules: *4 mm nodule lateral right upper lobe (6:77) *3 mm subpleural nodule right lower lobe (6:157) *3 mm nodule anterior left upper lobe (6:31) *3 mm subpleural nodule superior segment left lower lobe (6:52) Scattered calcified granulomas. No acute airspace disease. Central airways are patent. Pleural space: No pleural effusion. Nodular thickening along the superior aspect of the right major fissure measuring 5 mm in thickness. Lower neck, lymph nodes, and mediastinum: The imaged thyroid gland is normal. No lymphadenopathy in the supraclavicular, axillary, mediastinal, or hilar regions. Heart, pericardium, and thoracic vessels: The thoracic aorta and main pulmonary artery are normal in caliber. The cardiac chambers are normal in size. Coronary artery atherosclerotic calcifications are noted, although the study is not optimized for coronary assessment. No pericardial effusion or thickening. Bones and soft tissues: No destructive bone lesion. Degenerative disease of the thoracic spine. No chest wall mass. Upper abdomen: No abnormality in the imaged upper abdomen. IMPRESSION: 1. Few subcentimeter pulmonary nodules measuring up to 4 mm 2. No thoracic lymphadenopathy 3. Nonspecific nodular thickening along the superior aspect of the right major fissure. Short-term follow-up CT chest could be obtained to assess for any change in size. I personally reviewed the images as well as with the patient and her granddaughter who accompanied her today and agree with the above assessment PAST MEDICAL HISTORY Diagnosis Date Arthritis Breast cancer (HCC) 02/18/2011 CAD (coronary artery disease) s/p stents CORONARY ATHEROSCLER UNSPEC VESSEL 06/12/2009 CTS (carpal tunnel syndrome) Cystocele, midline 2006 Diverticulitis Duodenal ulcer 01/2024 Esophagitis, unspecified hiatal hernia, gastritis Essential hypertension, benign Gastrointestinal hemorrhage, unspecified gastrointestinal hemorrhage type 01/2024 History of colon polyps History of percutaneous left heart catheterization 06/24/2011 done at [facility] Hydronephrosis, bilateral 12/16/2023 Hydroureter Lung nodule 01/2024 Malignant neoplasm of breast (female), unspecified site 1998 Breast cancer right Mixed hyperlipidemia OBESITY 12/16/2005 Osteoarthritis of right knee Osteopenia 05/21/2010 Paroxysmal SVT (supraventricular tachycardia) ([facility]) Dr Marcelo Persistent atrial fibrillation ([facility]) Post-menopausal bleeding 2006 TUBERCULIN TEST REACTION NO TBC 12/16/2005 Type 2 diabetes mellitus without complication, without long-term current use of insulin ([facility]) Unspecified constipation Unspecified glaucoma(365.9) Glaucoma Low tension Urinary retention ALLERGIES Allergen Reactions Amoxicillin Diarrhea Fosamax [Alendronat* Other: See Comments myalgia Metformin Diarrhea With IR and ER forms Shellfish Diarrhea, Vomiting ferrous sulfate 325 mg (65 mg iron) tablet Take 1 tablet by mouth two times a day with meals. apixaban (ELIQUIS) 5 mg tab(s) Take 1 tablet by mouth two times a day. verapamil ER (VERELAN PM) 300 mg CPCT Take 1 capsule by mouth daily at bedtime. pravastatin (PRAVACHOL) 80 mg tablet Take 1 tablet by mouth once daily. lisinopril (ZESTRIL) 20 mg tablet Take 1 tablet by mouth once daily. insulin glargine 100 unit/mL (3 mL) Inject 20 Units subcutaneously daily at bedtime. Patient assistance med dulaglutide (TRULICITY) 4.5 mg/0.5 mL pen injector Inject 4.5 mg subcutaneously one time a week. ondansetron orally disintegrating (ZOFRAN ODT) 4 mg disintegrating tablet Take 1 tablet by mouth every 6 hours as needed for nausea/vomiting. meclizine (ANTIVERT) 12.5 mg tab Take 1 tablet by mouth every 6 hours as needed (dizziness). nitroglycerin sublingual (NITROSTAT) 0.4 mg SL tablet [...] + D 600 MG-200 UNIT TAB Take 1 tablet by mouth once daily. pantoprazole DR (PROTONIX) 40 mg tablet Take 1 tablet by mouth every 12 hours. (Patient not taking: Reported on 02/22/2024) Social History Tobacco Use Smoking status: Never Smokeless tobacco: Never Vaping Use Vaping Use: Never used Substance Use Topics Alcohol use: Not Currently Drug use: Never No occupational exposure history Tuberculosis as a child Pets: Dog, outside cats FAMILY HISTORY Problem Relation Age of Onset Diabetes Mother Hypertension Mother Lipids Mother Stroke Mother Ischemic Heart Disease Mother DVT Father Breast Cancer Maternal Aunt PAST SURGICAL HISTORY Procedure Laterality Date APPENDECTOMY BREAST BX NEEDLE CORE RIGHT 06/17/2008 U/S needle core bx right axilla BREAST SURGERY HX CMBND ANTERPOST COLPORRAPHY W/CYSTO 2004 Bladder and rectum repair COLON SURGERY HX Diverticular disease [facility] 09/12/2014 no polyps, repeat due 2018 [...] HX HEART CATHETERIZATION 2009 stent x 4 LAPS COLECTOMY PRTL W/COLOPXTSTMY LW ANAST 11/12/2011 lap low anterior resection sigmoid for diverticular disease LUMPECTOMY/RADIOTHERAPY DIAG MAMM/A10 1998 Right breast PAST SURGICAL HISTORY OF 2023 endoscopy STEREOTACTIC CORE BIOPSY 06/11/2007 LEFT TONSILLECTOMY HX TOTAL ABDOMINAL HYSTERECT W/WO RMVL TUBE OVARY 1975 Hysterectomy, ANN No BSO PMH, Social history, family history and surgical history reviewed and updated in EMR REVIEW OF SYSTEMS: CONSTITUTIONAL: No fevers, chills, nightsweats, unintended weight loss HEENT: Denies nasal congestion/sinus symptoms, problematic allergy problems. EYES: No diplopia or blurry vision. CARDIOVASCULAR: No chest pain, dyspnea, palpitations, orthopnea, PND, edema. PULM: See HPI GI: No dysphagia/odynophagia, problematic reflux. Recent GI bleed : No urinary complaints, including dysuria, gross hematuria or pyuria. NEURO: No balance problems, peripheral weakness/paresthesias or numbness of concern. MUSC-SKEL: No joint pain, swelling, or erythema. PSY: No concerns regarding depression, anxiety INTEGUMENTARY: No new skin changes or rashes PHYSICAL EXAMINATION: BP 140/64 Pulse 52 Temp 98.3 Wt 136 lb (61.7kg) SpO2 94% General Appearance: Age appropriate female, NAD. Skin: Skin color, texture, turgor normal, no suspicious rashes or lesions. Head: Normocephalic, no masses, lesions, tenderness or abnormalities. Eyes: Sclera, conjunctiva normal. Oropharynx: Upper plate, no oral lesions. Neck: No JVD, no masses, no thyromegaly. Lungs: Not labored, normal to percussion, no wheezes or crackles. Heart: Regular rate and rhythm, no murmurs or gallops. Extremities: No edema or clubbing. Musculoskeletal: No joint deformities or effusions. Neurologic: Alert and oriented, no focal findings. Lymph Nodes: No cervical lymphadenopathy and No supraclavicular lymphadenopathy. Assessment/Plan: 1. Lung nodules -Incidental note of lung nodules most consistent with granulomatous disease -In light of history of breast cancer, recommend surveillance 2. Granulomatous disease -Evidence of old granulomatous disease and remote history of tuberculosis -See # 1 3. Radiation fibrosis of lung -Focal area of inter-fissural thickening may be related to past radiation of her chest and axilla for her breast cancer -See #1 4. History of breast cancer -Remote early-stage breast cancer without evidence of recurrence Leonela Bear MD Respiratory Andrew documented in this encounter [facility] 02-18-2024 History of Present illness Narrative Radiology Service Progress Note PATIENT NAME: Kellie Dozier DATE OF SERVICE: February 18, 2024 TIME: 11:52 AM PATIENT IDENTITY VERIFICATION COMPLETED USING TWO (2) IDENTIFIERS: Name and Date of confirmed by patient verbally. FALL SCREENING: Has the patient had 2 falls in the last year or 1 fall with injury or currently using an Ambulatory Assistive Device (Walker, Cane, Wheelchair, Crutches, etc.)? No PATIENT GENDER DATA: Female. status: : No status: NO. PATIENT RELEVANT IMPLANT DATA REVIEWED: Not Applicable PATIENT PRESENTS WITH AN IMPLANTABLE OR ATTACHED BITE BLOCK MAKER: No RADIOLOGY DEPARTMENT: Ultrasound PERIPHERAL IV DATA: Not applicable SIGNED BY: Deborah Forrest RDMS RVT February 18, 2024 11:52 AM documented in this encounter [facility] 02-08-2024 Telephone encounter Note Images from the original note were not included. Talya Rodriguez PA-C P phani Carson Please schedule CT chest 6 months- I missed placing the order during the visit. Mandy, Rafael Rodriguez PA-C [facility] 02-08-2024 Miscellaneous Notes Images from the original note were not included. Talya Rodriguez PA-C P [facility] Susu Carson Please schedule CT chest 6 months- I missed placing the order during the visit. Thanks, Rafael Rodriguez PA-C documented in this encounter [facility] 02-08-2024 History of Present illness Narrative 78 year old female with c/o BP follow up HTN: Current meds: Lisinopril 20mg daily Verapamil ER 300mg daily HS Patient is compliant with meds Yes Monitors bp at home: No. If yes, readings: Denies side effects: No. Cough: Yes: just started after recent hospitalization in December Chest pain: No. Dyspnea: No. Edema: No. Palpitations: No. Syncope: No. Headache: no. Dizziness: none. Last 3 Encounter BP Readings: Date: BP: 02/08/2024 119/70[BP Kaitlin[ 02/02/2024 180/76[Zac notified of blood pressure- patient states she has appointment with Dr. Rodriguez next week.[ 01/06/2024 172/82 Last 2 Encounter Wt Readings: Date: Wt: 02/02/2024 62.8 kg (138 lb 6.4 oz) 01/06/2024 62.6 kg (138 lb) 01/12/2024 CT Chest WO IVCON IMPRESSION: 1. Few subcentimeter pulmonary nodules measuring up to 4 mm 2. No thoracic lymphadenopathy 3. Nonspecific nodular thickening along the superior aspect of the right major fissure. Short-term follow-up CT chest could be obtained to assess for any change in size. Following with Dr. Ferrer from 12/11/2023 for bleeding pyloric channel ulcer, received 2u PTRBCs Hd repeat scope done 02/03/2024 which showed no bleeding. Continues Protonix DM2 126 in a.m 299 in evening yesterday Hemoglobin A1C (%) Date Value 11/12/2023 7.6 05/07/2023 8.0 12/18/2021 7.4 06/15/2021 7.1 ) HISTORIES FAMILY HISTORY Problem Relation Age of Onset Diabetes Mother Hypertension Mother Lipids Mother Stroke Mother Ischemic Heart Disease Mother DVT Father Breast Cancer Maternal Aunt PAST MEDICAL HISTORY Diagnosis Date Arthritis Breast cancer (HCC) 02/18/2011 CORONARY ATHEROSCLER UNSPEC VESSEL 06/12/2009 CTS (carpal tunnel syndrome) Cystocele, midline 2007 Duodenal ulcer 01/2024 Esophagitis, unspecified hiatal hernia, gastritis Essential hypertension, benign Gastrointestinal hemorrhage, unspecified gastrointestinal hemorrhage type 01/2024 History of colon polyps History of percutaneous left heart catheterization 06/24/2011 done at [facility] Hydronephrosis, bilateral 12/16/2023 Hydroureter Lung nodule 01/2024 Malignant neoplasm of breast (female), unspecified site 1998 Breast cancer right Mixed hyperlipidemia OBESITY 12/16/2005 Osteoarthritis of right knee Osteopenia 05/21/2010 Paroxysmal SVT (supraventricular tachycardia) (HCC) Dr Marcelo Persistent atrial fibrillation (HCC) Post-menopausal bleeding 2006 Pure hypercholesterolemia TUBERCULIN TEST REACTION NO TBC 12/16/2005 Type 2 diabetes mellitus without complication, without long-term current use of insulin (HCC) Type II or unspecified type diabetes mellitus without mention of complication, not stated as uncontrolled Unspecified constipation Unspecified glaucoma(365.9) Glaucoma Low tension Urinary retention PAST SURGICAL HISTORY Procedure Laterality Date APPENDECTOMY [...] disease LUMPECTOMY/RADIOTHERAPY DIAG MAMM/A10 1998 Right breast PAST SURGICAL HISTORY OF 2023 endoscopy STEREOTACTIC CORE BIOPSY 06/11/2007 LEFT TONSILLECTOMY HX TOTAL ABDOMINAL HYSTERECT W/WO RMVL TUBE OVARY 1976 Hysterectomy, ANN No BSO VAGINAL HYSTERECTOMY Social History Tobacco Use Smoking status: Never Smokeless tobacco: Never Vaping Use Vaping Use: Never used Substance Use Topics Alcohol use: Not Currently Drug use: Never ACTIVE PROBLEM LIST Tuberculin Test Reaction Essential Hypertension Hyperlipidemia Type 2 Diabetes Mellitus Without Complications (Hcc) GE REFLUX (GASTROESOPHAGEAL) Coronary Atherosclerosis Osteopenia Breast Cancer (Hcc) Paroxysmal SVT (supraventricular tachycardia) (HCC) Osteoarthritis of Right Knee half-way current use of anticoagulant Persistent Atrial Fibrillation (Hcc) Nonrheumatic Mitral Valve Regurgitation History of Colon Polyps Iron Deficiency Anemia Due to Chronic Blood Loss Current Outpatient Medications Medication Sig Dispense Refill ferrous sulfate 325 mg (65 mg iron) tablet Take 1 tablet by mouth two times a day with meals. [address] (PROTONIX) 40 mg tablet Take 1 tablet by mouth every [address] (PROTONIX) 40 mg tablet Take 1 tablet by mouth two times a day. Take on empty stomach, 1/2 hr before meal. apixaban (ELIQUIS) 5 mg tab(s) Take 1 tablet by mouth two times a day. 180 tablet 3 verapamil ER (VERELAN PM) 300 mg CPCT Take 1 capsule by mouth daily at bedtime. 30 capsule 11 pravastatin (PRAVACHOL) 80 mg tablet Take 1 tablet by mouth once daily. 90 tablet 3 lisinopril (ZESTRIL) 20 mg tablet Take 1 tablet by mouth once daily. 90 tablet 3 insulin glargine 100 unit/mL (3 mL) Inject 20 Units subcutaneously daily at bedtime. Patient assistance med 2 Each 3 dulaglutide (TRULICITY) 4.5 mg/0.5 mL pen injector Inject 4.5 mg subcutaneously one time a week. 2 mL 11 ondansetron orally disintegrating (ZOFRAN ODT) 4 mg disintegrating tablet Take 1 tablet by mouth every 6 hours as needed for nausea/vomiting. 15 tablet 0 meclizine (ANTIVERT) 12.5 mg tab Take 1 tablet by mouth every 6 hours as needed (dizziness). 15 tablet 1 nitroglycerin sublingual (NITROSTAT) 0.4 mg SL tablet Dissolve 1 tablet under the tongue as needed for chest pain. If no pain relief call 911. 25 Bottle of 25 3 insulin needles, DISPOSABLE, (PEN NEEDLE) 31 gauge [...] + D 600 MG-200 UNIT TAB Take 1 tablet by mouth once daily. 0 No current facility-administered medications for this visit. BP Controlled (<130/80) Never done Shingrix Vaccine(2 of 3) due on 08/08/2011 DTaP,Tdap,Td Vaccine(2 - Td or Tdap) due on 04/13/2017 Covid-19 Vaccine( season) Never done Behavioral Health Screening Never done EXAM: BP 119/70 (BP Site: Left Arm, BP Position: Sitting) Pulse (!) 52 Resp 16 Wt 61.7 kg (136 lb) SpO2 98% BMI 23.34 kg/m Pleasant elderly woman who appears young, in no acute distress. Alert and oriented [...] warm and pink with prompt capillary refill. Talya Rodriguez PA-C Some of this note may have been copied and pasted for the purpose of history context and comparison and has been adjusted for changes in prior data. Talya Rodriguez PA-C documented in this encounter [facility] 02-05-2024 Miscellaneous Notes Spoke to patient and verified it is 3.0 dose and aware can use till rx is back in stock Leonela Beckman MA I have not heard of any pharmacies using. It is probably a 3.0 mg one she has. Can use that in place of it temporarily. Patient reports she [facility] and [facility]- they do not have trulicity 4.5. Patient will check other pharmacies and let pcp know if she finds it. Reports she has 2 boxes of the 3.5 trulicity if needed. Reports her shot is due on Thursday. documented in this encounter [facility] 02-04-2024 Procedure note [facility] 02-04-2024 Procedure note [facility] 02-04-2024 Note [facility] Medical Records Department [address] [place] [address] History Physical Exam 02/04/24 0647 MR#: [id number] Acct: [id number] Name: KELLIE DOZIER MARIETTA Rep #: [id number] : [id number] 78 From: Cullen Friend DO PCP: Dr. Santo Love MD Status:[facility] Location: [place] [address] History and Physical Date of Admission: 02/04/24 KELLIE DOZIER is a 78 F who presents to the office today for *[facility] hospitalization 2.9.24-2.11.24 for management of UGIB with anemia with use of Eliquis for A- fib. ? CT abd/pel IV only 12.11.23 fluid filled small bowel loops, ?enteritis; focal stranding of RLQ from cecum. ? EGD 12.12.23 oozing gastric ulcer, epinephrine/hemospray x5, heater probe; bleeding duodenal AVM. No specimens [facility] hospitalization 12.15.23-12.22.23 for management of GIB with use of Eliquis for A-fib. ? EGD 12.15.23 one oozing gastric ulcer, epinephrine, heater probe, one clip placed. No specimens ? CTA 12.16.23 metallic foreign body in stomach. No sign of GIB. OV 01.18.24 reports she is doing well at this time. Denies difficulty with GIB. ROS Const Constitutional: No anorexia, fatigue, fever(s), weight change or sleep problems Eyes Eyes: No change in vision ENT ENT: No abnormal hearing, difficulty swallowing, mouth lesions, tongue swelling or throat swelling Resp Respiratory: No cough or shortness of breath Cardio Cardiology: No chest pain at rest, chest pain with exertion, shortness of breath or dyspnea on exertion Gastro GI: No difficulty swallowing Genitourinary-Female: No difficulty urinating or burning urination Musc Musculoskeletal: No joint pain, joint swelling, muscle weakness or decreased muscle mass Skin Skin: No hair loss in leg, yellowing of the eye, itchy eyes, rash, skin ulcer or skin swelling Neuro Neurology: No abnormal hearing, abnormal movements, confusion, unsteady gait/balance or memory loss Psych Psychiatric: No anxiety, No confusion and No memory loss Endo Endocrine: No fatigue or weight change Aller/Imm Allergy/Immunologic: No itchy eyes, throat swelling or tongue swelling Daniel/Lymp Hematologic/Lymphatic: No easy bleeding, easy bruising or enlarged lymph nodes Exam Const General: cooperative and comfortable Nutritional Appearance: average body habitus and well nourished [facility] Head: normal to inspection Ears: hearing grossly normal bilaterally Nose: external nose normal Face and sinus: normal facial exam Mouth: oral mucosae normal Throat: posterior oropharynx normal Eyes General: appearance normal, both eyes and all related structures Neck Neck: normal visual inspection Chest Chest palpation inspection: normal inspection of the chest and normal palpation of entire chest wall Resp Effort Inspection: normal respiratory effort Auscultation: Bilateral: Clear to Auscultation Cardio Palpation: normal PMI Rate: regular rate Rhythm: regular rhythm GI Inspection: normal to inspection Auscultation: normal bowel sounds Percussion: normal to percussion Palpation: no hepatosplenomegaly Skin General: no rashes or lesions noted Neuro General: patient alert Extrem General: normal to inspection Psych Affect: normal affect Quality Reporting Tobacco Screening ([facility] 138) Smoking Status: Never smoker Assessment and Plan Assessment and Plan (1) GIB (gastrointestinal bleeding): Status: Resolved (2) Gastric ulcer: Status: Chronic Plan: 78 F who presented to [facility] ED on morning of 12/15/2023 with recurrent upper GI bleed. Patient was recently hospitalized at [facility] from 12/11 to 12/13 for an upper GI bleed with acute blood loss anemia. -EGD 12/12 showed a duodenal ulcer that was treated. Patient's hemoglobin level remained stable on 12/13 -Decision was made to restart patient's home Eliquis 5 mg twice daily that she was on for A-fib. Patient stated that she began having nausea with coffee-ground emesis about 6 to 8 hours prior to admission. She denied any bright red blood hematemesis. - She did report melena, which had been present for her since her recent hospitalization, but she denied passing any bright red blood or maroon-colored stool. - She was sent back to the ED and was found to have hemoglobin of 6.6 in the ED, down from 9.3 on 12/13. Hospital Course: 1. Recurrent upper GI bleed with coffee-ground emesis, acute blood loss anemia -EGD on 12/[address] Ferrer showed a duodenal ulcer that was treated. Hemoglobin was stable at 9.3 on discharge on 12/13. Presume that recurrent GI bleed was due to resumption of home Eliquis. Presented with recurrent nausea/vomiting and coffee-ground emesis, hemoglobin 6.6 on 12/15. ??? Hemoglobin droppe (more content not included)... [facility] 02-02-2024 History of Present illness Narrative Images from the original note were not included. [facility] [place] [facility] NEW PATIENT CLINIC NOTE SERVICE DATE: 02/02/2024 SERVICE TIME: 6:00 PM NAME: Kellie Dozier CHIEF COMPLAINT: Hydronephrosis HISTORY OF PRESENT ILLNESS: Kellie Dozier is a 78 year old female presenting as an New Patient for hydronephrosis The patient reports having been admitted to hospital in Dec 2013 for upper GI bleed and referred Due to CT imaging showing bilateral hydronephrosis CT on Dec 11 was negative for hydronephrosis and Then a CT on 12/16/2023 showed the bilateral hydronephrosis , no flank pain , hematuria and renal function is normal Will need Renal US to check if hydronephrosis is still present. She had a bladder lift many years ago LUTS: DYSURIA: no URGENCY: No FREQUENCY:6 per day NOCTURIA: 1 per night STRAINING TO VOID: No EMPTIES COMPLETELY: Yes UTI: No GROSS HEMATURIA: no UA DIPSTICK POSITIVE ONLY: no Other symptoms: LABS: No results found for: TESTOST No results found for: TESTFREE No results found for: PSA Hematocrit (%) Date Value 01/06/2024 33.6 05/07/2023 39.0 10/02/2022 39.7 12/18/2021 40.4 06/15/2021 41.3 01/10/2021 40.2 No results found for: PSA Creatinine Date Value Ref Range Status 01/06/2024 0.72 0.58 - 0.96 mg/dL Final 11/12/2023 0.71 0.58 - 0.96 mg/dL Final 05/07/2023 0.74 0.58 - 0.96 mg/dL Final 11/06/2022 0.78 0.58 - 0.96 mg/dL Final MEDICATIONS: ferrous sulfate 325 mg (65 mg iron) tablet Take 1 tablet by mouth two times a day with meals. apixaban (ELIQUIS) 5 mg tab(s) Take 1 tablet by mouth two times a day. verapamil ER (VERELAN PM) 300 mg CPCT Take 1 capsule by mouth daily at bedtime. pravastatin (PRAVACHOL) 80 mg tablet Take 1 tablet by mouth once daily. lisinopril (ZESTRIL) 20 mg tablet Take 1 tablet by mouth once daily. insulin glargine 100 unit/mL (3 mL) Inject 20 Units subcutaneously daily at bedtime. Patient assistance med dulaglutide (TRULICITY) 4.5 mg/0.5 mL pen injector Inject 4.5 mg subcutaneously one time a week. ondansetron orally disintegrating (ZOFRAN ODT) 4 mg disintegrating tablet Take 1 tablet by mouth every 6 hours as needed for nausea/vomiting. meclizine (ANTIVERT) 12.5 mg tab Take 1 tablet by mouth every 6 hours as needed (dizziness). nitroglycerin sublingual (NITROSTAT) 0.4 mg SL tablet [...] + D 600 MG-200 UNIT TAB Take 1 tablet by mouth once daily. pantoprazole DR (PROTONIX) 40 mg tablet Take 1 tablet by mouth every [address] (PROTONIX) 40 mg tablet Take 1 tablet by mouth two times a day. Take on empty stomach, 1/2 hr before meal. PAST MEDICAL HISTORY: PAST MEDICAL HISTORY Diagnosis Date Arthritis Breast cancer (HCC) 02/18/2011 CORONARY ATHEROSCLER UNSPEC VESSEL 06/12/2009 CTS (carpal tunnel syndrome) Cystocele, midline 2007 Duodenal ulcer 01/2024 Esophagitis, unspecified hiatal hernia, gastritis Essential hypertension, benign Gastrointestinal hemorrhage, unspecified gastrointestinal hemorrhage type 01/2024 History of colon polyps History of percutaneous left heart catheterization 06/24/2011 done at [facility] Hydronephrosis, bilateral 12/16/2023 Hydroureter Lung nodule 01/2024 Malignant neoplasm of breast (female), unspecified site 1998 Breast cancer right Mixed hyperlipidemia OBESITY 12/16/2005 Osteoarthritis of right knee Osteopenia 05/21/2010 Paroxysmal SVT (supraventricular tachycardia) (HCC) Dr Marcelo Persistent atrial fibrillation (HCC) Post-menopausal bleeding 2006 Pure hypercholesterolemia TUBERCULIN TEST REACTION NO TBC 12/16/2005 Type 2 diabetes mellitus without complication, without long-term current use of insulin (HCC) Type II or unspecified type diabetes mellitus without mention of complication, not stated as uncontrolled Unspecified constipation Unspecified glaucoma(365.9) Glaucoma Low tension Urinary retention PAST SURGICAL HISTORY: PAST SURGICAL HISTORY Procedure Laterality Date APPENDECTOMY [...] disease LUMPECTOMY/RADIOTHERAPY DIAG MAMM/A10 1998 Right breast PAST SURGICAL HISTORY OF 2023 endoscopy STEREOTACTIC CORE BIOPSY 06/11/2007 LEFT TONSILLECTOMY HX TOTAL ABDOMINAL HYSTERECT W/WO RMVL TUBE OVARY 1976 Hysterectomy, ANN No BSO VAGINAL HYSTERECTOMY FAMILY HISTORY: FAMILY HISTORY Problem Relation Age of Onset Diabetes Mother Hypertension Mother Lipids Mother Stroke Mother Ischemic Heart Disease Mother DVT Father Breast Cancer Maternal Aunt SOCIAL HISTORY: Social Connections: Not on file REVIEW OF SYSTEMS: GENERAL: No fever, chills, weight loss, or fatigue. ENMT: Negative CARDIOVASCULAR:NO CHEST PAIN, PALPITATIONS, ANKLE EDEMA RESPIRATORY: No chronic cough, wheezing, dyspnea, hemoptysis. GENITOURINARY: SEE HPI MUSCULOSKELETAL:NO CHRONIC BACK PAIN, ARTHRITIS, CHRONIC NECK PAIN SKIN: NO VARICOSE VEINS, RASH, ABNORMAL ITCHING HEME/LYMPH/IMMUNE:Negative for prolonged bleeding, bruising easily or swollen nodes NEUROLOGICAL: NO HEADACHES, NUMBNESS, SEIZURES, STROKE DIABETES: yes All other systems reviewed and are negative PHYSICAL EXAMINATION: Blood pressure 180/76, pulse 80, temperature 36.9 C (98.4 F), temperature source Temporal, resp. rate 12, height 162.6 cm (5' 4), weight 62.8 kg (138 lb 6.4 oz), SpO2 98%. GENERAL: WNL nutrition, no deformities, healthy appearing NEURO: Awake, alert and oriented x 3 and Normal gait PSYCH: No signs of depression, anxiety, or agitation ENMT (Ear, Nose, Mouth, Throat): No masses, adenopathy, icterus. Thyroid nonpalpable RESP: NL effort, no retractions or purse-lip breathing. CV: No extremity swelling, varices, edema, pallor, erythema GASTROINTESTINAL: Soft, nontender, nondistended, no masses. HERNIAS: None SKIN: No rash, lesions No palpable lymphadenopathy MUSCULOSKELETAL: Extremities normal. No deformities, edema, clubbing or skin discoloration. PROBLEM LIST REVIEW: Yes LABS: Results for orders placed or performed in visit on 02/02/24 UA DIP, URINE (POC) Result Value Ref Range GLUCOSE UA (POCT) 100 (A) Negative mg/dL BILIRUBIN UA (POCT) Negative Negative KETONE UA (POCT) Negative Negative mg/dL SPECIFIC GRAVITY UA (POCT) 1.015 1.005 - 1.030 HEMOGLOBIN/BLOOD UA (POCT) Small (A) Negative PH UA (POCT) 6.0 4.5 - 8.0 PROTEIN UA (POCT) Negative Negative mg/dL UROBILINOGEN UA (POCT) 0.2 Normal E.U./dL NITRITE UA (POCT) Negative Negative LEUKOCYTES UA (POCT) Large (A) Negative COLOR UA (POCT) Yellow CLARITY UA (POCT) Cloudy *Note: Due to a large number of results and/or encounters for the requested time period, some results have not been displayed. A complete set of results can be found in Results Review. PROCEDURES: PVR: 0 ml IMAGING: CT - 12/11/2023 1.6 cm it is effecting simple cyst in the lateral aspect of right kidney for which no further follow-up exam is needed. No evidence of hydronephrosis. Normal urinary bladder. There is absence of the uterus consistent with a prior hysterectomy. CT - 12/16/2023 KIDNEYS AND URETERS: There is bilateral hydronephrosis and hydroureter. There are no obstructing stones. The bladder is distended may be causing bilateral vesicoureteral reflux. Normal renal size and position. IMPRESSION/PLAN: 78 year old female with 1. Urinary retention - ICD9: 788.20, ICD10: R33.9 (primary diagnosis) 2. Hydroureter - ICD9: 593.5, ICD10: N13.4 3. Screening for genitourinary condition - ICD9: V81.6, ICD10: Z13.89 > Renal US to check Hydronephrosis > Follow-up based on Renal US findings if continued hydronephrosis will refer for possible stent placement I spent a total of 30 minutes on the date of the service which included preparing to see the patient, face to face patient care, completing clinical documentation, obtaining and/or reviewing separately obtained history, performing a medically appropriate examination, counseling and educating the patient/family/caregiver, ordering medications, tests, or procedures, and care coordination. DANNA Renteria MT, PA-C Verified name and date of . CC Post Void Residual HPI: Kellie Dozier is a 78 year old female. The patient is here now for an appointment with DANNA Renteria MT, PA-COV. Procedure: Explained procedure to patient and verbalizes understanding. Performed a PVR. Patient urinated and instructed to empty bladder as much as possible just prior to having PVR done using bladder ultrasound scanner. Results of scan: 71 mL The patient tolerated the procedure well. Plan: Appointment with Zac. documented in this encounter [facility] 01-14-2024 Miscellaneous Notes Phoned patient and went over results, notes from Dr Love with understanding. Assisted with transfer to mill order scheduler to get Pulmonary appt set up. Most nodules are unchanged. There is a thickened area in one of the lungs that they would prefer we watch as well. To be on safe side. I am going to ask pulmonary to follow it. documented in this encounter [facility] 01-12-2024 History of Present illness Narrative Radiology Service Progress Note PATIENT NAME: Kellie Dozier DATE OF SERVICE: January 12, 2024 TIME: 3:02 PM PATIENT IDENTITY VERIFICATION COMPLETED USING TWO (2) IDENTIFIERS: Name and Date of confirmed by patient verbally. FALL SCREENING: Has the patient had 2 falls in the last year or 1 fall with injury or currently using an Ambulatory Assistive Device (Walker, Cane, Wheelchair, Crutches, etc.)? No PATIENT GENDER DATA: Female. status: : No status: NO. PATIENT RELEVANT IMPLANT DATA REVIEWED: Yes PATIENT PRESENTS WITH AN IMPLANTABLE OR ATTACHED BITE BLOCK MAKER: No RADIOLOGY DEPARTMENT: CT; Exam(s) Completed: Chest PERIPHERAL IV DATA: Not applicable SIGNED BY: RT Darrion(R) January 12, 2024 3:02 PM documented in this encounter [facility] 01-07-2024 Miscellaneous Notes Patient notified and verbalizes understanding. Labs are ok. Anemia is improving since her bleed.can add iron and recheck labs in one month documented in this encounter [facility] 01-06-2024 History of Present illness Narrative No chief complaint on file. HPI: Patient presents today for office visit for hospital follow up. HOSPITAL/ER FOLLOW UP: Reason for visit: upper GI bleed Which facility: admitted to [facility] x 2, ecf stay. Date of visit: 12/11/23 and 12/15/23 Diagnosis: pyloric channel ulcer,upper GI bleed, acute blood loss anemia, Testing done: had EGD done with both admissions treated by Dr Ferrer. Had duodenal ulcer. Treatment given: started on protonix twice daily Current symptoms: feeling much better Was discharged from [facility] on 01/02/24. Address incidental finding nodule right lung Eliquis initially held in patient. Did receive 2 units prbcs. Had hb of 6.8. did have an elevated white count initially felt to be stress related. Did have a fall prior to admission with right sided rib pain. Xrays on initial admission were negative, except for small right lung nodule on xray. Ct of chest on nonemergent basis was recommended. Did have urinary retention. Was sent to [facility] with [facility] and instructions to see urology. She did not see Dr. Sood. Was urinating ok after discontinued in ecf. Cta in the hospital apparently showed dilated bladder, reflux and hydroureter bilaterally. Back on anticoagulation. No chest pain or shortness of breath. No gi issues. No black or bloody stools. Remains on pantoprazole. No dizziness or palpitations. MEDICATIONS: Current Outpatient Medications Medication Sig pantoprazole DR (PROTONIX) 40 mg tablet Take 1 tablet by mouth every 12 hours. apixaban (ELIQUIS) 5 mg tab(s) Take 1 tablet by mouth two times a day. verapamil ER (VERELAN PM) 300 mg CPCT Take 1 capsule by mouth daily at bedtime. pravastatin (PRAVACHOL) 80 mg tablet Take 1 tablet by mouth once daily. lisinopril (ZESTRIL) 20 mg tablet Take 1 tablet by mouth once daily. insulin glargine 100 unit/mL (3 mL) Inject 20 Units subcutaneously daily at bedtime. Patient assistance med dulaglutide (TRULICITY) 4.5 mg/0.5 mL pen injector Inject 4.5 mg subcutaneously one time a week. ondansetron orally disintegrating (ZOFRAN ODT) 4 mg disintegrating tablet Take 1 tablet by mouth every 6 hours as needed for nausea/vomiting. meclizine (ANTIVERT) 12.5 mg tab Take 1 tablet by mouth every 6 hours as needed (dizziness). cyanocobalamin (VITAMIN B-12) 1,000 mcg tab Take 1 tablet by mouth once daily. pyridoxine hcl(VITAMIN B-6 100 MG TAB) Take one(1) tablet daily. CALCIUM + D 600 MG-200 UNIT TAB Take one(1) tablet daily. pantoprazole DR (PROTONIX) 40 mg tablet Take 1 tablet by mouth two times a day. Take on empty stomach, 1/2 hr before meal. nitroglycerin sublingual (NITROSTAT) 0.4 mg SL tablet Dissolve 1 tablet under the tongue as needed for chest pain. If no pain relief call 911. insulin needles, DISPOSABLE, (PEN NEEDLE) 31 gauge x 5/16 ndle Use as directed once daily as directed DM: yes Insulin: yes DX: E11.9 brimonidine (ALPHAGAN P) 0.15 % ophthalmic solution Use 1 Drop in both eyes three times daily. No current facility-administered medications for this [...] percutaneous left heart catheterization 06/24/11 done at [facility] Malignant neoplasm of breast (female), unspecified site 1998 Breast cancer right OBESITY 12/16/2005 Osteoarthritis of right knee Osteopenia 05/21/2010 Paroxysmal SVT (supraventricular tachycardia) Dr Marcelo Pure hypercholesterolemia TUBERCULIN TEST REACTION [...] today and recommended the following in detail. RSV Vaccine(1 - 1-dose 60+ series) Never done Depression Assessment due on 11/02/2023 VITALS: There were no vitals taken for this visit. Last 4 Encounter Wt Readings: Date: Wt: 11/12/2023 63.5 kg (140 lb) 05/07/2023 65.4 kg (144 lb 3.2 oz) 01/29/2023 64.4 kg (142 lb) 01/01/2023 63.5 kg (140 lb) PHYSICAL EXAMINATION: General appearance: Well appearing, [...] swelling, deformity, or tenderness Peripheral pulses: Normal ASSESSMENT/PLAN: 1. Duodenal ulcer - ICD9: 532.90, ICD10: K26.9 (primary diagnosis) - continue current meds. See gi. Red flags for re-assessment reviewed with patient in detail. - CONSULT TO GASTROENTEROLOGY - PANTOPRAZOLE 40 MG TABLET,DELAYED RELEASE 2. Gastrointestinal hemorrhage, unspecified gastrointestinal hemorrhage type - ICD9: 578.9, ICD10: K92.2 - continue to follow labs. - CBC + DIFF - CONSULT TO GASTROENTEROLOGY - PANTOPRAZOLE 40 MG TABLET,DELAYED RELEASE 3. Persistent atrial fibrillation (HCC) - ICD9: 427.31, ICD10: I48.19 - stable. 4. Type 2 diabetes mellitus without complication, without long-term current use of insulin (HCC) - ICD9: 250.00, ICD10: E11.9 - Controlled - Continue current medications 5. Mixed hyperlipidemia - ICD9: 272.2, ICD10: E78.2 - Controlled - Continue current medications 6. Urinary retention - ICD9: 788.20, ICD10: R33.9 - reinforced need to follow with urologyl - BASIC METABOLIC PNL - CONSULT TO UROLOGY 7. Hydroureter - ICD9: 593.5, ICD10: N13.4 - as above. - BASIC METABOLIC PNL - CONSULT TO UROLOGY 8. Lung nodule - ICD9: 793.11, ICD10: R91.1 - ct of lung is ordered. Santo Love MD documented in this encounter [facility] 12-24-2023 History of Present illness Narrative Patient returned call. She says she is currently in [facility] for rehab. Says she was discharged to [facility] from [facility]. Will be there 2-3 weeks. Aline Qiu RN Left message for patient to call for a TCM call. documented in this encounter [facility] 12-22-2023 Note [facility] Medical Records Department [address] [place] [address] Discharge Summary 12/22/23 1330 MR#: [id number] Acct: [id number] Name: KELLIE DOZIER MARIETTA Rep #: [id number] : 1945 [id number] From: Gomez Johansen MD PCP: Dr. Santo Love MD Status:DIS IN Location: [place] [address] Providers Date of Admission: 12/15/23 Primary Care Physician: Dr. Santo Love MD Consultations 12/15/23 07:45 Consult: Gastroenterology Routine Consulting Provider: [facility] Reason for Consult: recurrent GI bleed EMERGENT Consult: No Notified: Yes Date Notified: 12/15/23 Time Notified: 07:48 Method of Notification: Text 12/17/23 10:04 Consult: Urology Routine Consulting Provider: Nitish Sood Reason for Consult: Urinary retention to establish outpatient follow-up EMERGENT Consult: No Notified: Yes Date Notified: 12/17/23 Time Notified: 10:06 Method of Notification: Verbal Reason For Visit: ABLA, UGIB Diagnosis Discharge Diagnosis (1) Pyloric channel ulcer: Status: Acute Code(s): K25.9 - Gastric ulcer, unspecified as acute or chronic, without hemorrhage or perforation (2) UGIB (upper gastrointestinal bleed): Status: Resolved Code(s): K92.2 - Gastrointestinal hemorrhage, unspecified (3) Acute blood loss anemia: Status: Acute Code(s): D62 - Acute posthemorrhagic anemia Medications at Discharge Home Medications apixaban 5 mg tablet (Eliquis) 5 mg PO BID a.fib 09/06/19 cyanocobalamin (vitamin B-12) 1,000 mcg tablet 1,000 mcg PO DAILY vitamin deficient 09/06/19 pravastatin 80 mg tablet 80 mg PO QHS cholesterol 09/06/19 pyridoxine (vitamin B6) 100 mg tablet 100 mg PO DAILY vitamin deficient 09/06/19 nitroglycerin 0.4 mg sublingual tablet 0.4 mg sublingual Q5-15M PRN chest pain #90 tabs 09/08/19 insulin glargine U-300 conc 300 unit/mL (1.5 mL) subcutaneous pen 20 unit subcut QHS diabetes 08/14/21 dulaglutide 4.5 mg/0.5 mL subcutaneous pen injector (Trulicity) 4.5 mg subcut MO 08/06/23 verapamil 300 mg capsule [address] pellet CT,ext.release 300 mg PO QHS blood pressure 08/06/23 brimonidine 0.2 % eye drops 1 drp ophthalmic (eye) BID Glaucoma 12/11/23 calcium carbonate 600 mg-vitamin D3 5 mcg (200 unit) tablet (Calcium 600 + D(3)) 1 tab PO DAILY vitamin deficient 12/11/23 lisinopril 40 mg tablet 20 mg PO DAILY HIG BLOOD PRESSURE 12/11/23 pantoprazole 40 mg tablet,delayed release 40 mg PO BID 30 days #60 tabs 12/13/23 Hospital Course Operations None Procedures EGD Summary of Care Provided Minutes Spent on Discharge: 38 Hospital Course: Per HPI: KELLIE DOZIER, is a 78 F who presented to [facility] ED on morning of 12/15/2023 with recurrent upper GI bleed. Patient was recently hospitalized at [facility] from 12/11 to 12/13 for an upper GI bleed with acute blood loss anemia. Gastroenterology followed, EGD 12/12 showed a duodenal ulcer that was treated. Patient's hemoglobin level remained stable on 12/13, discussed with GI and patient was okay for discharge home on p.o. PPI twice daily. Decision was made to restart patient's home Eliquis 5 mg twice daily that she was on for A-fib. Patient stated that she began having nausea with coffee-ground emesis about 6 to 8 hours prior to admission. She denied any stevenson ght red blood hematemesis. She did report melena, which had been present for her since her recent h ospitalization, but she denied passing any bright red blood or maroon-colored stool. Patient was fo und to have hemoglobin of 6.6 in the ED, down from 9.3 on 12/13. Was also found to be tachycardic bu t was maintaining an adequate blood pressure. Hospitalist was contacted at that time for admission. Patient seen at bedside in the ED, daughter present. Patient was laying comfortably in bed, in no acute distress. Patient did appear fairly pale and fatigued. Patient stated she had not had any f urther episodes of coffee-ground emesis since arrival to the ED. She denied any lightheadedness or dizziness at rest. She denied any abdominal pain or discomfort. No other acute concerns at this ti tn. Hospital Course: 1. Recurrent upper GI bleed with coffee-ground emesis, acute blood loss anemia Recent EGD on 12/[address] Ferrer showed a duodenal ulcer that was treated. Hemoglobin was stable at 9.3 on discharge on 12/13. Presume that recurrent GI bleed was due to resumption of home Eliquis. Presented with recurrent nausea/vomiting and coffee-ground emesis, hemoglobin 6.6 on 12/15. ??? Admit under inpatient status to PCU. Gastroenterology consulted. N.p.o. for EGD. Continue PPI drip for now. Transfusing 2 units of packed blood cells on 12/15, repeat hemoglobin pending. Holding home Eliquis. 12/16/2023: Will need to transfuse 1 unit today with a hemoglobin of 6.8, CT of the abdomen and pelvis is pending to eval for bleeding and this abdominal pain (more content not included)... [facility] 12-22-2023 Consult note Note Date/Time December 22, 2023 10:25am [facility] Medical Records Department [address] [address] Counseling Note - Pharmacy 12/22/23 1025 MR#: [id number] Acct: [id number] Name: KELLIE DOZIER Rep #:[id number] : 1945 78 From: Titus Madrid PCP: Dr. Santo Love MD Status:ADM I N Y Location: [place] [address] Pharmacy [place] Med Reconciliation Pharmacy Service has performed discharge medication reconciliation for this patient. The patient's discharge medication list was reviewed for discrepancies and discrepancies were resolved. Medications at Discharge Home Medications apixaban 5 mg tablet (Eliquis) 5 mg PO BID a.fib 09/06/19 cyanocobalamin (vitamin B-12) 1,000 mcg tablet 1,000 mcg PO DAILY vitamin deficient 09/06/19 pravastatin 80 mg tablet 80 mg PO QHS cholesterol 09/06/19 pyridoxine (vitamin B6) 100 mg tablet 100 mg PO DAILY vitamin deficient 09/06/19 nitroglycerin 0.4 mg sublingual tablet 0.4 mg sublingual Q5-15M PRN chest pain #90 tabs 09/08/19 insulin glargine U-300 conc 300 unit/mL (1.5 mL) subcutaneous pen 20 unit subcutQHS diabetes 08/14/21 dulaglutide 4.5 mg/0.5 mL subcutaneous pen injector (Trulicity) 4.5 mg subcut MO08/06/23 verapamil 300 mg capsule 24hr pellet CT,ext.release 300 mg PO QHS blood /05/23 brimonidine 0.2 % eye drops 1 drp ophthalmic (eye) BID Glaucoma 12/11/23 calcium carbonate 600 mg-vitamin D3 5 mcg (200 unit) tablet (Calcium 600 + D(3))1 tab PO DAILY vitamin deficient 12/11/23 lisinopril 40 mg tablet 20 mg PO DAILY HIG BLOOD PRESSURE 12/11/23 pantoprazole 40 mg tablet,delayed release 40 mg PO BID 30 days #60 tabs 12/13/23 12/22/23 1025 <Electronically signed by Titus sosa> Date _ Titus Madrid Cosigner Signature (if applicable): Date CC: ~ Signed [facility] Work Phone: 1(245) 704-165102-20-2024 Discharge summary Author Gomez Johansen [facility] December 22, 2023 10:14am Note Date/Time December 22, 2023 10:11am [facility] Medical Records Department [address] [place] [address] Transfer to [facility] MR#: [id number] Acct: [id number] Name: KELLIE DOZIER Rep #:[id number] : 1945 78 From: Gomez grove MD PCP: Dr. Santo Love MD Status:ADM I N Certification of patient admission REQUIRED AT TIME OF ADMISSION. I CERTIFY THAT POST-HOSPITAL ECF SERVICES ARE REQUIRED TO BE GIVEN ON AN IN-PATIENT BASIS BECAUSE OF THE ABOVE NAMED PATIENT'S NEED FOR JAIL CARE ON A CONTINUING BASIS FOR THE CONDITION(S) FOR WHICH HE/SHE WAS RECEIVING IN-PATIENT HOSPITAL SERVICES PRIOR TO HIS/HER TRANSFER TO THE ECF. 12/22/23 1014<Electronically signed by Gomez Johansen MD> Diet Diet Order/Speech Therapy: 12/21/23 14:12 Diet: Consistent Carb - Calorie Controlled Is pt able to select menu?: Yes Diet Comments: okay for p.o. meds, okay for ice chips How many daily calories?: 1600 calorie Routine Orders/Code Status Routine Lab Work: CBC and BMP Code Status: Full Code Therapies Physical Therapy: Eval and Treat Occupational Therapy: Eval and Treat Problem/Diagnosis (1) Pyloric channel ulcer: Status: Acute Code(s): K25.9 - Gastric ulcer, unspecified as acute or chronic, without hemorrhage or perforation (2) UGIB (upper gastrointestinal bleed): Status: Resolved Code(s): K92.2 - Gastrointestinal hemorrhage, unspecified (3) Acute blood loss anemia: Status: Acute Code(s): D62 - Acute posthemorrhagic anemia Plan 1. Recurrent upper GI bleed with coffee-ground emesis, acute blood loss anemia Recent EGD on 12/[address] Ferrer showed a duodenal ulcer that was treated. Hemoglobin was stable at 9.3 on discharge on 12/13. Presume that recurrent GI bleed was due to resumption of home Eliquis. Presented with recurrent nausea/vomiting and coffee-ground emesis, hemoglobin 6.6 on 12/15. ? Admit under inpatient status to PCU. Gastroenterology consulted. N.p.o. for EGD. Continue PPI drip for now. Transfusing 2 units of packed blood cells on 12/15, repeat hemoglobin pending. Holding home Eliquis. 12/16/2023: Will need to transfuse 1 unit today with a hemoglobin of 6.8, CT of the abdomen and pelvis is pending to eval for bleeding and this abdominal pain 12/17/2023: Hemoglobin dropped again to 6.8, will repeat a unit of blood, no obvious signs of bleeding on the CTA of the abdomen pelvis yesterday though did show a dilated bladder and hydronephrosis. Continue with Avina and will discussthe case with gastroenterology 12/18/2023: Hemoglobin this morning is 8.5, yesterday's recheck after unit of blood was 8.7 from 6.8. 12/19/2023: Hemoglobin this morning is 8.0, will recheck this afternoon if stablecan potentially discharge home 12/20/2023: Hemoglobin is stabilized will continue to monitor and restart Eliquisin a few days. In the meantime continue with PT/OT for debility and recommendations on possible placement 12/21/2023: PT and OT feel that rehab would be necessary, so she is now pending pre-CERT 2. Paroxysmal atrial fibrillation ? Sinus tachycardia on admission secondary to GI bleed. On Eliquis for anticoagulation, holding in setting of GI bleed as noted above. Will need to discuss with gastroenterology prior to discharge on plan for anticoagulation. Holding home verapamil for now, restart when able. 12/16: Heart rate stable 3. Mild leukocytosis?resolved ? WBC count 14.0 on admit. Suspect secondary to acute stress state, low concernfor active infection. Follow-up a.m. CBC. 4. Type 2 diabetes mellitus with hyperglycemia ? BG 410 on admit. Home regimen of Lantus 20 units at night and Trulicity. Start Lantus 15 units at night with sliding-scale insulin with regular glucose checks while inpatient, adjust as needed. 5. Recent mechanical fall with right-sided rib pain ? Imaging on previous admission with no acute fractures or significant hematomasnoted. PT/OT/case management followed during that admission, was okay for discharge home with no needs. Continue Tylenol as needed for pain. 6. Urinary retention ? Will consult urology ? Continue with Avina on discharge follow-up with him as an outpatient in a weekafter discharge Chronic medical conditions: ? History of CAD s/p stenting, hypertension, hyperlipidemia: Continue home statin, holding home lisinopril. ? History of breast carcinoma s/p lumpectomy DVT: SCDs Allergies/Procedures Done in Hospital Allergies alendronate sodium [From Fosamax] Adverse Reaction (Severe, Verified 12/15/23 05:40) myalgias amoxicillin [Amoxicillin] Adverse Reaction (Verified 12/15/23 05:40) Nausea/Vom/Diarrhea metformin Adverse Reaction (Verified 12/15/23 05:40) Nausea/Vom/Diarrhea shellfish derived Adverse Reaction (Verified 12/15/23 05:40) Nausea/Vom/Diarrhea Procedures: EGD Type of Care/Length of Stay Estimated LOS: Convalescent Care Less Than 30 days Type of Care Needed: Skilled Rehab Potential: Good Prognosis: Good Additional Orders/Day of Discharge Day of Discharge: 12/22/23 Dietary and Speech Recommendations Dietitian Recommendations/Changes: Change diet to 1600 calorie, consistent carbohydrate diet to help w/ glycemic control Offer júnior veras with medpass for increased nutrition if consumed. Discharge Plan Admission Admit Date/Time: 12/15/23 07:17 Attending Provider: Gomez Johansen Primary Care Provider: Santo Love Consulting Providers: Vincent Schwab; Nitish Sood Discharge Orders/Prescriptions Prescriptions: Continued nitroglycerin 0.4 mg tablet, sublingual 0.4 mg sublingual Q5-15M PRN (Reason: chest pain) Qty: 90 6RF pravastatin 80 mg tablet 80 mg PO QHS cyanocobalamin (vitamin B-12) 1,000 mcg tablet 1,000 mcg PO DAILY pyridoxine (vitamin B6) 100 mg tablet 100 mg PO DAILY verapamil 300 mg capsule, [address] 300 mg PO QHS Trulicity 4.5 mg/0.5 mL pen injector 4.5 mg subcut MO Patient Comments: INJECT 4.5 MG SUBCUTANEOUSLY ONCE PER WEEK ON THURSDAY insulin glargine U-300 conc 300 unit/mL (1.5 mL) insulin pen 20 unit SC QHS brimonidine 0.2 % drops 1 drp ophthalmic (eye) BID Patient Comments: INSTILL 1 DROP INTO EACH EYE TWICE DAILY calcium carbonate-vitamin D3 [Calcium 600 + D(3)] 600 mg-5 mcg (200 unit) tablet 1 tab PO DAILY lisinopril 40 mg tablet 20 mg PO DAILY pantoprazole 40 mg Tablet,Delayed Release (Dr/Ec) 40 mg PO BID 30 Days Qty: 60 0RF Held Eliquis 5 mg tablet 5 mg PO BID Hold Instructions: Resume on 12/24/23. Referrals / Follow Up: Santo Love MD [Primary Care Provider] - Disposition Disposition (needs filled in before D/C Order can be placed): Custodial Facility 12/22/23 1014 <Electronically signed by Gomez Johansen MD> Cosigner Signature (if applicable): CC: Dr. Nitish Sood MD; Dr. Vincent Schwab DO; Dr. Santo Love MD ~ [facility] Work Phone: 1(954) 139-946502-19-2024 Progress note Author Gomez Johansen [facility] December 21, 2023 11:15am Note Date/Time December 21, 2023 11:15am [facility] Medical Records Department [address] [place] [address] Progress Note - Hospitalist 12/21/23 1113 MR#: [id number] Acct: [id number] Name: KELLIE DOZIER [place] Rep #:[id number] : 1945 78 From: Gomez grove MD PCP: Dr. Santo Love MD Status:ADM I N Location: [place] [address] Subjective Subjective Doing well, no issues overnight. Diarrhea is resolved Objective Data Objective Data Vital Signs: Vital Signs Temp Pulse Resp BP Pulse Ox O2 Del Method 98.2 F 91 17 169/74 H 98 Room Air 12/21/23 08:29 12/21/23 08:29 12/21/23 08:29 12/21/23 08:29 12/21/23 08:29 12/21/23 10:00 Oxygen Delivery Method Room Air Weight: 137 lb 9.095 oz Body Mass Index (BMI) 23.6 Intake & Output: Intake and Output for Last 24 Hours 12/20/23 12/21/23 12/22/23 03:59 03:59 03:59 Intake Total 1538.33 / 1538.33 324.83 / 324.83 Output Total 2900 / 2900 1999 450 / 450 Balance -1361.67 / -1361.67 -1675.17 / -1675.17 -450 / -450 Lab / Micro Data 12/21/23 06:05 12/21/23 06:05 Labs: Laboratory Results - last 24 hr 12/20/23 12:00: POC Glucose 222 H 12/20/23 16:48: POC Glucose 249 H 12/21/23 06:05: WBC 8.8, RBC 2.82 L, Hgb 8.1 L, Hct 25.5 L, MCV 90.4, MCH 28.7, MCHC 31.8 L, RDW Std Deviation 55.2 H, RDW Coeff of Emperatriz 17.2 H, Plt Count 199, MPV 10.4, Immature Gran % (Auto) 1.100 H, Neut % (Auto) 73.8 H, Lymph % (Auto) 13.5 L, Bartow % (Auto) 9.2, Eos % (Auto) 1.8, Baso % (Auto) 0.6, Absolute Neuts (auto) 6.5, Absolute Lymphs (auto) 1.19, Nucleated RBC % 0, Sodium 142, Potassium 3.2 L, Chloride 111 H, Carbon Dioxide 27.0, Anion Gap 4 L, BUN 7, Creatinine 0.44 L, Estim Creat Clear Calc 49.24, Est GFR (MDRD) Af Amer 179, EstGFR (MDRD) Non-Af 148, BUN/Creatinine Ratio 16.0, Glucose 77, Calcium 8.3 L 12/21/23 06:31: POC Glucose 77 Physical Exam Narrative General: Alert, Oriented x3, Cooperative, No apparent distress HEENT: Atraumatic, PERRLA, EOMI, Normocephalic Oral: Moist Mucosa Neck: Supple, No JVD Lungs: Diminished, Normal air movement, No rhonchi, No wheeze, No rales Cardiovascular: Regular rate, Regular Rhythm, Normal S1, Normal S2, No murmurs Abdomen: Soft, nontender, Non-Distended, No Hepato-splenomegaly Extremities: No edema, Capillary Refill Less than 3 Seconds Skin: No rashes, No breakdown, pallor Musculoskeletal: No Tenderness to Palpation of Joints or Extremities Neurological: No focal neurological deficits, Motor Exam 5/5 strength throughout, Sensory exam intact to light touch and pain Psych/Mental Status: Normal Affect, Appropriate Assessment & Plan Assessment/Plan (1) Pyloric channel ulcer: (2) UGIB (upper gastrointestinal bleed): (3) Acute blood loss anemia: PLAN: Plan 1. Recurrent upper GI bleed with coffee-ground emesis, acute blood loss anemia Recent EGD on 12/[address] Ferrer showed a duodenal ulcer that was treated. Hemoglobin was stable at 9.3 on discharge on 12/13. Presume that recurrent GI bleed was due to resumption of home Eliquis. Presented with recurrent nausea/vomiting and coffee-ground emesis, hemoglobin 6.6 on 12/15. ? Admit under inpatient status to PCU. Gastroenterology consulted. N.p.o. for EGD. Continue PPI drip for now. Transfusing 2 units of packed blood cells on 12/15, repeat hemoglobin pending. Holding home Eliquis. 12/16/2023: Will need to transfuse 1 unit today with a hemoglobin of 6.8, CT of the abdomen and pelvis is pending to eval for bleeding and this abdominal pain 12/17/2023: Hemoglobin dropped again to 6.8, will repeat a unit of blood, no obvious signs of bleeding on the CTA of the abdomen pelvis yesterday though did show a dilated bladder and hydronephrosis. Continue with Fabrice and will discussthe case with gastroenterology 12/18/2023: Hemoglobin this morning is 8.5, yesterday's recheck after unit of blood was 8.7 from 6.8. 12/19/2023: Hemoglobin this morning is 8.0, will recheck this afternoon if stablecan potentially discharge home 12/20/2023: Hemoglobin is stabilized will continue to monitor and restart Eliquisin a few days. In the meantime continue with PT/OT for debility and recommendations on possible placement 12/21/2023: PT and OT feel that rehab would be necessary, so she is now pending pre-CERT 2. Paroxysmal atrial fibrillation ? Sinus tachycardia on admission secondary to GI bleed. On Eliquis for anticoagulation, holding in setting of GI bleed as noted above. Will need to discuss with gastroenterology prior to discharge on plan for anticoagulation. Holding home verapamil for now, restart when able. 12/16: Heart rate stable 3. Mild leukocytosis?resolved ? WBC count 14.0 on admit. Suspect secondary to acute stress state, low concernfor active infection. Follow-up a.m. CBC. 4. Type 2 diabetes mellitus with hyperglycemia ? BG 410 on admit. Home regimen of Lantus 20 units at night and Trulicity. Start Lantus 15 units at night with sliding-scale insulin with regular glucose checks while inpatient, adjust as needed. 5. Recent mechanical fall with right-sided rib pain ? Imaging on previous admission with no acute fractures or significant hematomasnoted. PT/OT/case management followed during that admission, was okay for discharge home with no needs. Continue Tylenol as needed for pain. 6. Urinary retention ? Will consult urology ? Continue with Avina on discharge follow-up with him as an outpatient in a weekafter discharge Chronic medical conditions: ? History of CAD s/p stenting, hypertension, hyperlipidemia: Continue home statin, holding home lisinopril. ? History of breast carcinoma s/p lumpectomy DVT: SCDs Charges/Coding Visit Charges Inpatient E&M: 09477 Subs Hosp L2 12/21/23 1115 <Electronically signed by Gomez Johansen MD> Cosigner Signature (if applicable): CC: ~ Signed [facility] Work Phone: 1(253) 575-846902-18-2024 Progress note Author Gomez Johansen [facility] December 20, 2023 9:36am Note Date/Time December 20, 2023 9:28am [facility] Medical Records Department [address] [place] [address] Progress Note - Hospitalist 12/20/23 0925 MR#: [id number] Acct: [id number] Name: KELLIE DOZIER Rep #:[id number] : 1945 78 From: Gomez grove MD PCP: Dr. Santo Love MD Status:ADM I N Location: [place] [address] Subjective Subjective Hemoglobin is stable but now she feels too weak to go home we will have her evaluated by physical therapy Objective Data Objective Data Vital Signs: Vital Signs Temp Pulse Resp BP Pulse Ox O2 Del Method 98.1 F 88 18 148/68 H 97 Room Air 12/20/23 03:37 12/20/23 03:37 12/20/23 03:37 12/20/23 03:37 12/20/23 03:37 12/20/23 03:37 Oxygen Delivery Method Room Air Weight: 137 lb 9.095 oz Body Mass Index (BMI) 23.6 Intake & Output: Intake and Output for Last 24 Hours 12/19/23 12/20/23 12/21/23 03:59 03:59 03:59 Intake Total 1440 / 1440 1538.33 / 1538.33 24.83 / 24.83 Output Total 6250 / 6250 2900 / 2900 350 / 350 Balance -4810 / -4810 -1361.67 / -1361.67 -325.17 / -325.17 Lab / Micro Data 12/20/23 05:35 12/20/23 05:35 Labs: Laboratory Results - last 24 hr 12/19/23 11:09: POC Glucose 119 H 12/19/23 11:40: Hgb 8.0 L, Hct 24.0 L 12/19/23 16:07: POC Glucose 207 H 12/19/23 21:41: POC Glucose 170 H 12/20/23 05:35: WBC 8.2, RBC 2.77 L, Hgb 8.1 L, Hct 24.8 L, MCV 89.5, MCH 29.2, MCHC 32.7, RDW Std Deviation 54.5 H, RDW Coeff of Emperatriz 17.7 H, Plt Count 188, MPV10.2, Immature Gran % (Auto) 1.600 H, Neut % (Auto) 73.2 H, Lymph % (Auto) 13.0 L, Bartow % (Auto) 9.4, Eos % (Auto) 2.2, Baso % (Auto) 0.6, Absolute Neuts (auto)6.0, Absolute Lymphs (auto) 1.07, Nucleated RBC % 0, Sodium 142, Potassium 2.9 L, Chloride 109 H, Carbon Dioxide 30.0, Anion Gap 3 L, BUN 7, Creatinine 0.49 L, Estim Creat Clear Calc 49.24, Est GFR (MDRD) Af Amer 156, Est GFR (MDRD) Non-Af 129, BUN/Creatinine Ratio 14.3, Glucose 87, Calcium 7.9 L 12/20/23 08:13: POC Glucose 77 Physical Exam Narrative General: Alert, Oriented x3, Cooperative, No apparent distress HEENT: Atraumatic, PERRLA, EOMI, Normocephalic Oral: Moist Mucosa Neck: Supple, No JVD Lungs: Diminished, Normal air movement, No rhonchi, No wheeze, No rales Cardiovascular: Regular rate, Regular Rhythm, Normal S1, Normal S2, No murmurs Abdomen: Soft, nontender, Non-Distended, No Hepato-splenomegaly Extremities: No edema, Capillary Refill Less than 3 Seconds Skin: No rashes, No breakdown, pallor Musculoskeletal: No Tenderness to Palpation of Joints or Extremities Neurological: No focal neurological deficits, Motor Exam 5/5 strength throughout, Sensory exam intact to light touch and pain Psych/Mental Status: Normal Affect, Appropriate Assessment & Plan Assessment/Plan (1) Pyloric channel ulcer: (2) UGIB (upper gastrointestinal bleed): (3) Acute blood loss anemia: PLAN: Plan 1. Recurrent upper GI bleed with coffee-ground emesis, acute blood loss anemia Recent EGD on 12/[address] Ferrer showed a duodenal ulcer that was treated. Hemoglobin was stable at 9.3 on discharge on 12/13. Presume that recurrent GI bleed was due to resumption of home Eliquis. Presented with recurrent nausea/vomiting and coffee-ground emesis, hemoglobin 6.6 on 12/15. ? Admit under inpatient status to PCU. Gastroenterology consulted. N.p.o. for EGD. Continue PPI drip for now. Transfusing 2 units of packed blood cells on 12/15, repeat hemoglobin pending. Holding home Eliquis. 12/16/2023: Will need to transfuse 1 unit today with a hemoglobin of 6.8, CT of the abdomen and pelvis is pending to eval for bleeding and this abdominal pain 12/17/2023: Hemoglobin dropped again to 6.8, will repeat a unit of blood, no obvious signs of bleeding on the CTA of the abdomen pelvis yesterday though did show a dilated bladder and hydronephrosis. Continue with Avina and will discussthe case with gastroenterology 12/18/2023: Hemoglobin this morning is 8.5, yesterday's recheck after unit of blood was 8.7 from 6.8. 12/19/2023: Hemoglobin this morning is 8.0, will recheck this afternoon if stablecan potentially discharge home 12/20/2023: Hemoglobin is stabilized will continue to monitor and restart Eliquisin a few days. In the meantime continue with PT/OT for debility and recommendations on possible placement 2. Paroxysmal atrial fibrillation ? Sinus tachycardia on admission secondary to GI bleed. On Eliquis for anticoagulation, holding in setting of GI bleed as noted above. Will need to discuss with gastroenterology prior to discharge on plan for anticoagulation. Holding home verapamil for now, restart when able. 12/16: Heart rate stable 3. Mild leukocytosis ? WBC count 14.0 on admit. Suspect secondary to acute stress state, low concernfor active infection. Follow-up a.m. CBC. 4. Type 2 diabetes mellitus with hyperglycemia ? BG 410 on admit. Home regimen of Lantus 20 units at night and Trulicity. Start Lantus 15 units at night with sliding-scale insulin with regular glucose checks while inpatient, adjust as needed. 5. Recent mechanical fall with right-sided rib pain ? Imaging on previous admission with no acute fractures or significant hematomasnoted. PT/OT/case management followed during that admission, was okay for discharge home with no needs. Continue Tylenol as needed for pain. 6. Urinary retention ? Will consult urology ? Continue with Avina Chronic medical conditions: ? History of CAD s/p stenting, hypertension, hyperlipidemia: Continue home statin, holding home lisinopril. ? History of breast carcinoma s/p lumpectomy DVT: SCDs Charges/Coding Visit Charges Inpatient E&M: 81262 Subs Hosp L2 12/20/23 0936 <Electronically signed by Gomez Johansen MD> Cosigner Signature (if applicable): CC: ~ Signed [facility] Work Phone: 1(720) 625-800002-17-2024 Progress note Author Cullen Ferrer [facility] December 19, 2023 4:35pm Note Date/Time December 19, 2023 4:35pm [facility] Medical Records Department [address] [place] [address] Progress Note - GI 12/19/23 1634 MR#: [id number] Acct: [id number] Name: KELLIE DOZIER Rep #:[id number] : 1945 78 From: Cullen Ferrer DO PCP: Dr. Santo Love MD Status:ADM I N Location: [place] [address] Subjective Subjective Patient underwent repeat emergent upper endoscopy for GI bleed. He was discovered to have large peptic ulcer that was clipped and cauterized. Her hemoglobin did go down slightly. She was receiving transfusion of 1 unit packedred blood cells. She states that she is hungry and would like to have her diet advanced as tolerated. Objective Data Objective Data Vital Signs: Vital Signs Temp Pulse Resp BP Pulse Ox O2 Del Method 100.1 F H 90 14 175/73 H 97 Room Air 12/19/23 16:00 12/19/23 16:00 12/19/23 16:00 12/19/23 16:00 12/19/23 16:00 12/19/23 16:00 Oxygen Delivery Method Room Air Weight: 137 lb 9.095 oz Body Mass Index (BMI) 23.6 Intake & Output: Intake and Output for Last 24 Hours 12/17/23 12/18/23 12/19/23 23:59 23:59 23:59 Intake Total 851 / 851 1440 / 1440 698.83 / 698.83 Output Total 1275 / 1725 3050 / 4875 4600 / 4600 Balance -424 / -874 -1610 / -3435 -3901.17 / -3901.17 Lab / Micro Data 12/19/23 11:40 12/18/23 07:15 Labs: Laboratory Results - last 24 hr 12/18/23 16:45: Hgb 8.2 L, Hct 24.9 L 12/18/23 22:28: POC Glucose 153 H 12/19/23 05:09: WBC 7.3, RBC 2.76 L, Hgb 8.0 L, Hct 24.2 L, MCV 87.7, MCH 29.0, MCHC 33.1, RDW Std Deviation 53.6 H, RDW Coeff of Emperatriz 18.1 H, Plt Count 168, MPV10.0, Immature Gran % (Auto) 2.500 H, Neut % (Auto) 69.4, Lymph % (Auto) 14.7 L,Bartow % (Auto) 9.8, Eos % (Auto) 2.9, Baso % (Auto) 0.7, Absolute Neuts (auto) 5.1, Absolute Lymphs (auto) 1.07, Nucleated RBC % 0 12/19/23 07:40: POC Glucose 191 H 12/19/23 11:09: POC Glucose 119 H 12/19/23 11:40: Hgb 8.0 L, Hct 24.0 L 12/19/23 16:07: POC Glucose 207 H Physical Exam Narrative General: Alert, Oriented x3, Cooperative, No apparent distress HEENT: Atraumatic, PERRLA, EOMI, Normocephalic Oral: Moist Mucosa Neck: Supple, No JVD Lungs: Diminished, Normal air movement, No rhonchi, No wheeze, No rales Cardiovascular: Regular rate, Regular Rhythm, Normal S1, Normal S2, No murmurs Abdomen: Soft, nontender, Non-Distended, No Hepato-splenomegaly Extremities: No edema, Capillary Refill Less than 3 Seconds Skin: No rashes, No breakdown, pallor Musculoskeletal: No Tenderness to Palpation of Joints or Extremities Neurological: No focal neurological deficits, Motor Exam 5/5 strength throughout, Sensory exam intact to light touch and pain Psych/Mental Status: Normal Affect, Appropriate Assessment & Plan Assessment/Plan (1) UGIB (upper gastrointestinal bleed): (2) Acute blood loss anemia: PLAN: Plan Patient is a 78-year-old female who presented to [facility] ED on 12/11/2023 with hematemesis. Findings: The examined esophagus was normal. One oozing cratered gastric ulcer with pigmented material was found on the greater curvature of the stomach. The lesion was 6 mm in largest dimension. Area was successfully injected with 5 mL of a 0.1 mg/mL solution of epinephrine for drug delivery. To stop active bleeding, hemostatic spray was deployed. Five sprays were applied. There was no bleeding at the end of the procedure. Coagulation for hemostasis using heater probe was successful. Estimated blood loss was minimal. No gross lesions were noted in the first portion of the duodenum. One 5 mm angiodysplastic lesion with bleeding was found in the first portion of the duodenum. Coagulation for hemostasis using argon plasma at 0.3 liters/minute and 20 keller was successful. Estimated blood loss was minimal. Impression: - Normal esophagus. - Oozing gastric ulcer with pigmented material. Injected. hemostatic spray applied. Treated with a heater probe. - No gross lesions in the first portion of the duodenum. - No specimens collected. Recommendation: - Return patient to hospital chan for ongoing care. - NPO. - Continue present medications. Her hemoglobin is still slightly down to 6.8 from 7.9 to 6.8. Also her BUN to creatinine ratio is still elevated. She may be losing around the site even though it was treated yesterday due to poor wound healing. She also had some focal stranding consistent with enteritis extending to the cecum. Her CTA did not show any signs of bleeding. Her hemoglobin seems stable at 8. She can have her diet advanced as tolerated. . 12/19/23 1635 <Electronically signed by Cullen Friend DO> Cosigner Signature (if applicable): CC: ~ Signed [facility] Work Phone: [phone] 380-392802-17-2024 Progress note Author Gomez Johansen [facility] December 19, 2023 10:44am Note Date/Time December 19, 2023 10:45am [facility] Medical Records Department [address] [place] [address] Progress Note - Hospitalist 12/19/23 1043 MR#: [id number] Acct: [id number] Name: KELLIE DOZIER MARIETTA Rep #:[id number] : 1945 78 From: Gomez grove MD PCP: Dr. Santo Love MD Status:ADM I N Location: [place] [address] Subjective Subjective Hemoglobin has slight trend downward so we will recheck this afternoon. Otherwise no issues, doing well Objective Data Objective Data Vital Signs: Vital Signs Temp Pulse Resp BP Pulse Ox O2 Del Method 99.0 F 81 14 118/52 L 95 Room Air 12/19/23 10:01 12/19/23 10:01 12/19/23 10:01 12/19/23 10:01 12/19/23 10:01 12/19/23 10:01 Oxygen Delivery Method Room Air Weight: 137 lb 9.095 oz Body Mass Index (BMI) 23.6 Intake & Output: Intake and Output for Last 24 Hours 12/18/23 12/19/23 12/20/23 03:59 03:59 03:59 Intake Total 751 / 751 1440 / 1440 98.83 / 98.83 Output Total 1725 / 1725 6250 / 6250 500 / 500 Balance -974 / -974 -4810 / -4810 -401.17 / -401.17 Lab / Micro Data 12/19/23 05:09 12/18/23 07:15 Labs: Laboratory Results - last 24 hr 12/18/23 08:42: POC Glucose 222 H 12/18/23 11:45: POC Glucose 171 H 12/18/23 15:36: POC Glucose 194 H 12/18/23 16:45: Hgb 8.2 L, Hct 24.9 L 12/18/23 22:28: POC Glucose 153 H 12/19/23 05:09: WBC 7.3, RBC 2.76 L, Hgb 8.0 L, Hct 24.2 L, MCV 87.7, MCH 29.0, MCHC 33.1, RDW Std Deviation 53.6 H, RDW Coeff of Emperatriz 18.1 H, Plt Count 168, MPV10.0, Immature Gran % (Auto) 2.500 H, Neut % (Auto) 69.4, Lymph % (Auto) 14.7 L,Bartow % (Auto) 9.8, Eos % (Auto) 2.9, Baso % (Auto) 0.7, Absolute Neuts (auto) 5.1, Absolute Lymphs (auto) 1.07, Nucleated RBC % 0 12/19/23 07:40: POC Glucose 191 H Physical Exam Narrative General: Alert, Oriented x3, Cooperative, No apparent distress HEENT: Atraumatic, PERRLA, EOMI, Normocephalic Oral: Moist Mucosa Neck: Supple, No JVD Lungs: Diminished, Normal air movement, No rhonchi, No wheeze, No rales Cardiovascular: Regular rate, Regular Rhythm, Normal S1, Normal S2, No murmurs Abdomen: Soft, nontender, Non-Distended, No Hepato-splenomegaly Extremities: No edema, Capillary Refill Less than 3 Seconds Skin: No rashes, No breakdown, pallor Musculoskeletal: No Tenderness to Palpation of Joints or Extremities Neurological: No focal neurological deficits, Motor Exam 5/5 strength throughout, Sensory exam intact to light touch and pain Psych/Mental Status: Normal Affect, Appropriate Assessment & Plan Assessment/Plan (1) Pyloric channel ulcer: (2) UGIB (upper gastrointestinal bleed): (3) Acute blood loss anemia: PLAN: Plan 1. Recurrent upper GI bleed with coffee-ground emesis, acute blood loss anemia Recent EGD on 12/[address] Ferrer showed a duodenal ulcer that was treated. Hemoglobin was stable at 9.3 on discharge on 12/13. Presume that recurrent GI bleed was due to resumption of home Eliquis. Presented with recurrent nausea/vomiting and coffee-ground emesis, hemoglobin 6.6 on 12/15. ? Admit under inpatient status to PCU. Gastroenterology consulted. N.p.o. for EGD. Continue PPI drip for now. Transfusing 2 units of packed blood cells on 12/15, repeat hemoglobin pending. Holding home Eliquis. 12/16/2023: Will need to transfuse 1 unit today with a hemoglobin of 6.8, CT of the abdomen and pelvis is pending to eval for bleeding and this abdominal pain 12/17/2023: Hemoglobin dropped again to 6.8, will repeat a unit of blood, no obvious signs of bleeding on the CTA of the abdomen pelvis yesterday though did show a dilated bladder and hydronephrosis. Continue with Avina and will discussthe case with gastroenterology 12/18/2023: Hemoglobin this morning is 8.5, yesterday's recheck after unit of blood was 8.7 from 6.8. 12/19/2023: Hemoglobin this morning is 8.0, will recheck this afternoon if stablecan potentially discharge home 2. Paroxysmal atrial fibrillation ? Sinus tachycardia on admission secondary to GI bleed. On Eliquis for anticoagulation, holding in setting of GI bleed as noted above. Will need to discuss with gastroenterology prior to discharge on plan for anticoagulation. Holding home verapamil for now, restart when able. 12/16: Heart rate stable 3. Mild leukocytosis ? WBC count 14.0 on admit. Suspect secondary to acute stress state, low concernfor active infection. Follow-up a.m. CBC. 4. Type 2 diabetes mellitus with hyperglycemia ? BG 410 on admit. Home regimen of Lantus 20 units at night and Trulicity. Start Lantus 15 units at night with sliding-scale insulin with regular glucose checks while inpatient, adjust as needed. 5. Recent mechanical fall with right-sided rib pain ? Imaging on previous admission with no acute fractures or significant hematomasnoted. PT/OT/case management followed during that admission, was okay for discharge home with no needs. Continue Tylenol as needed for pain. 6. Urinary retention ? Will consult urology ? Continue with Avina Chronic medical conditions: ? History of CAD s/p stenting, hypertension, hyperlipidemia: Continue home statin, holding home lisinopril. ? History of breast carcinoma s/p lumpectomy DVT: SCDs Charges/Coding Visit Charges Inpatient E&M: 85293 Subs Hosp L2 12/19/23 1044 <Electronically signed by Gomez Johansen MD> Cosigner Signature (if applicable): CC: ~ Signed [facility] Work Phone: [phone] Miscellaneous Notes* Telephone Encounter - Santo Love MD - 12/18/2023 2:54 PM EST Noted. Will follow * Telephone Encounter - Tierney White - 12/18/2023 2:39 PM EST She is still admitted into [facility]. Tierney White * Telephone Encounter - Santo Love MD - 12/18/2023 12:35 PM EST Xray of chest from [facility] shows nodule on right mid lung. Ct scan recommended when able. [facility] [id number] Progress note Author Gomez Johansen [facility] December 18, 2023 12:42pm Note Date/Time December 18, 2023 12:42pm [facility] Medical Records Department [address] [place] [address] Progress Note - Hospitalist 12/18/23 1241 MR#: [id number] Acct: [id number] Name: KELLIE DOZIER Rep #:[id number] : 1945 78 From: Gomez grove MD PCP: Dr. Santo Love MD Status:ADM I N Location: [place] [address] Subjective Subjective Doing well, no issues overnight. Hemoglobin this morning is 8.5, yesterday's recheck in the afternoon was 8.7 Objective Data Objective Data Vital Signs: Vital Signs Temp Pulse Resp BP Pulse Ox O2 Del Method 97.5 F L 98 16 111/73 100 Room Air 12/18/23 08:46 12/18/23 08:46 12/18/23 08:46 12/18/23 08:46 12/18/23 08:46 12/18/23 08:46 Oxygen Delivery Method Room Air Weight: 137 lb 9.095 oz Body Mass Index (BMI) 23.6 Intake & Output: Intake and Output for Last 24 Hours 12/17/23 12/18/23 12/19/23 03:59 03:59 03:59 Intake Total 617 / 617 751 / 751 100 / 100 Output Total 1600 / 1600 1725 / 1725 650 / 650 Balance -983 / -983 -974 / -974 -550 / -550 Lab / Micro Data 12/18/23 08:54 12/18/23 07:15 Labs: Laboratory Results - last 24 hr 12/15/23 06:25: Crossmatch See Detail 12/17/23 16:30: POC Glucose 96 12/17/23 19:00: Hgb 8.7 L, Hct 26.1 L 12/17/23 21:35: POC Glucose 199 H 12/18/23 07:15: WBC Cancelled, Corrected WBC Cancelled, RBC Cancelled, Hgb Cancelled, Hct Cancelled, MCV Cancelled, MCH Cancelled, MCHC Cancelled, RDW Std Deviation Cancelled, RDW Coeff of Emperatriz Cancelled, Plt Count Cancelled, MPV Cancelled, Immature Gran % (Auto) Cancelled, Neut % (Auto) Cancelled, Lymph % (Auto) Cancelled, Bartow % (Auto) Cancelled, Eos % (Auto) Cancelled, Baso % (Auto)Cancelled, Absolute Neuts (auto) Cancelled, Absolute Lymphs (auto) Cancelled, Total Counted Cancelled, Neutrophils % (Manual) Cancelled, Band Neutrophils % Cancelled, Lymphocytes % (Manual) Cancelled, Monocytes % (Manual) Cancelled, Eosinophils % (Manual) Cancelled, Basophils % (Manual) Cancelled, Metamyelocytes% Cancelled, Myelocytes % Cancelled, Promyelocytes % Cancelled, Blast Cells % Cancelled, Plasma Cell % (Manual) Cancelled, Other Cells % Cancelled, Nucleated RBC % Cancelled, Nucleated RBCs/100 WBC Cancelled, Differential Comment Cancelled, Diff Path Review Cancelled, Hypersegmented Neuts Cancelled, Atypical Lymphocytes Cancelled, Reactive Lymphocytes Cancelled, Smudge Cells Cancelled, Toxic Granulation Cancelled, Toxic Vacuolation Cancelled, Dohle Bodies Cancelled, Jaswinder Rods Cancelled, Platelet Estimate Cancelled, Plt Morphology Comment Cancelled, RBC Morphology Cancelled 12/18/23 07:15: RBC Morphology Cancelled, Polychromasia Cancelled, HypochromasiaCancelled, Poikilocytosis Cancelled, Basophilic Stippling Cancelled, Anisocytosis Cancelled, Microcytosis Cancelled, Macrocytosis Cancelled, Spherocytes Cancelled, Sickle Cells Cancelled, Target Cells Cancelled, Tear DropCells Cancelled, Ovalocytes Cancelled, Stomatocytes Cancelled, Harrell-Olivarez Bodies Cancelled, Don Cells Cancelled, Bite Cells Cancelled, Crenated Cell Cancelled, Acanthocytes (Spur) Cancelled, Rouleaux Cancelled, Schistocytes Cancelled, Sodium 142, Potassium 3.5, Chloride 113 H, Carbon Dioxide 25.0, AnionGap 4 L, BUN 15, Creatinine 0.57, Estim Creat Clear Calc 49.24, Est GFR (MDRD) Af Amer 132, Est GFR (MDRD) Non-Af 109, BUN/Creatinine Ratio 26.4 H, Glucose 206H, Calcium 7.9 L 12/18/23 08:42: POC Glucose 222 H 12/18/23 08:54: WBC 9.3, RBC 2.95 L, Hgb 8.5 L, Hct 26.1 L, MCV 88.5, MCH 28.8, MCHC 32.6, RDW Std Deviation 54.5 H, RDW Coeff of Emperatriz 18.3 H, Plt Count 152, MPV10.2, Immature Gran % (Auto) 4.100 H, Neut % (Auto) 70.0, Lymph % (Auto) 12.3 L,Bartow % (Auto) 9.9, Eos % (Auto) 2.9, Baso % (Auto) 0.8, Absolute Neuts (auto) 6.5, Absolute Lymphs (auto) 1.15, Nucleated RBC % 0.4 12/18/23 11:45: POC Glucose 171 H Physical Exam Narrative General: Alert, Oriented x3, Cooperative, No apparent distress HEENT: Atraumatic, PERRLA, EOMI, Normocephalic Oral: Moist Mucosa Neck: Supple, No JVD Lungs: Diminished, Normal air movement, No rhonchi, No wheeze, No rales Cardiovascular: Regular rate, Regular Rhythm, Normal S1, Normal S2, No murmurs Abdomen: Soft, nontender, Non-Distended, No Hepato-splenomegaly Extremities: No edema, Capillary Refill Less than 3 Seconds Skin: No rashes, No breakdown, pallor Musculoskeletal: No Tenderness to Palpation of Joints or Extremities Neurological: No focal neurological deficits, Motor Exam 5/5 strength throughout, Sensory exam intact to light touch and pain Psych/Mental Status: Normal Affect, Appropriate Assessment & Plan Assessment/Plan (1) Pyloric channel ulcer: (2) UGIB (upper gastrointestinal bleed): (3) Acute blood loss anemia: PLAN: Plan 1. Recurrent upper GI bleed with coffee-ground emesis, acute blood loss anemia Recent EGD on 12/[address] Ferrer showed a duodenal ulcer that was treated. Hemoglobin was stable at 9.3 on discharge on 12/13. Presume that recurrent GI bleed was due to resumption of home Eliquis. Presented with recurrent nausea/vomiting and coffee-ground emesis, hemoglobin 6.6 on 12/15. ? Admit under inpatient status to PCU. Gastroenterology consulted. N.p.o. for EGD. Continue PPI drip for now. Transfusing 2 units of packed blood cells on 12/15, repeat hemoglobin pending. Holding home Eliquis. 12/16/2023: Will need to transfuse 1 unit today with a hemoglobin of 6.8, CT of the abdomen and pelvis is pending to eval for bleeding and this abdominal pain 12/17/2023: Hemoglobin dropped again to 6.8, will repeat a unit of blood, no obvious signs of bleeding on the CTA of the abdomen pelvis yesterday though did show a dilated bladder and hydronephrosis. Continue with Avina and will discussthe case with gastroenterology 12/18/2023: Hemoglobin this morning is 8.5, yesterday's recheck after unit of blood was 8.7 from 6.8. 2. Paroxysmal atrial fibrillation ? Sinus tachycardia on admission secondary to GI bleed. On Eliquis for anticoagulation, holding in setting of GI bleed as noted above. Will need to discuss with gastroenterology prior to discharge on plan for anticoagulation. Holding home verapamil for now, restart when able. 12/16: Heart rate stable 3. Mild leukocytosis ? WBC count 14.0 on admit. Suspect secondary to acute stress state, low concernfor active infection. Follow-up a.m. CBC. 4. Type 2 diabetes mellitus with hyperglycemia ? BG 410 on admit. Home regimen of Lantus 20 units at night and Trulicity. Start Lantus 15 units at night with sliding-scale insulin with regular glucose checks while inpatient, adjust as needed. 5. Recent mechanical fall with right-sided rib pain ? Imaging on previous admission with no acute fractures or significant hematomasnoted. PT/OT/case management followed during that admission, was okay for discharge home with no needs. Continue Tylenol as needed for pain. 6. Urinary retention ? Will consult urology ? Continue with Avina Chronic medical conditions: ? History of CAD s/p stenting, hypertension, hyperlipidemia: Continue home statin, holding home lisinopril. ? History of breast carcinoma s/p lumpectomy DVT: SCDs Charges/Coding Visit Charges Inpatient E&M: 42457 Subs Hosp L2 12/18/23 1242 <Electronically signed by Gomez Johansen MD> Cosigner Signature (if applicable): CC: ~ Signed [facility] Work Phone: [phone] Consult note Author Nitish Sood [facility] December 17, 2023 6:22pm Note Date/Time December 17, 2023 6:22pm [facility] Medical Records Department [address] [place] [address] Consultation - Urology 12/17/23 1821 MR#: [id number] Acct: [id number] Name: KELLIE DOZIER Rep #:[id number] : 1945 78 From: Nitish Sood MD PCP: Dr. Santo Love MD Status:ADM I N Location: [place] [address] HPI Consult Data Date of Consult: 12/17/23 HPI Narrative Reason for Consultation: Retention of urine HPI Narrative: KELLIE DOZIER, is a 78 F who presents to the hospital with a GI bleed she beenhaving a workup for this, CAT scan was done that demonstrated a very distended bladder she was having lower abdominal pain Avina catheter was placed for significant amount of urine. She does have a significant history for having a bladder repair with a bladder tuck done according to the patient long time ago. But prior to admission to the hospital she does not really have a history of retention of urine probably just incomplete emptying without sensation. I thinkfor now she will have to go home with a catheter and she need to follow-up in myoffice at that point I will remove the catheter and we will also show her how todo self intermittent catheterization in case she does not empty her bladder all the way. But she can be discharged with a catheter and follow-up in my office for an appointment coming with questions. 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 Essential hypertension GERD (gastroesophageal reflux disease) Liver mass Malignant neoplasm of right breast Old myocardial infarction Paroxysmal atrial fibrillation 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 tachycardia Presence of stent in coronary artery (~05/23/09) Pure hypercholesterolemia Type 2 diabetes mellitus Home Medications apixaban 5 mg tablet (Eliquis) 5 mg PO BID a.fib 09/06/19 [History Last Taken 12/14/23] cyanocobalamin (vitamin B-12) 1,000 mcg tablet 1,000 mcg PO DAILY vitamin deficient 09/06/19 [History Last Taken 12/14/23] pravastatin 80 mg tablet 80 mg PO QHS cholesterol 09/06/19 [History Last Taken 12/14/23] pyridoxine (vitamin B6) 100 mg tablet 100 mg PO DAILY vitamin deficient 09/06/19[History Last Taken 12/14/23] nitroglycerin 0.4 mg sublingual tablet 0.4 mg sublingual Q5-15M PRN chest pain #90 tabs 09/08/19 [Rx Last Taken Unknown] insulin glargine U-300 conc 300 unit/mL (1.5 mL) subcutaneous pen 20 unit subcutQHS diabetes 08/14/21 [History Last Taken 12/14/23] dulaglutide 4.5 mg/0.5 mL subcutaneous pen injector (Trulicity) 4.5 mg subcut MO08/06/23 [History Last Taken 12/07/23] verapamil 300 mg capsule 24hr pellet CT,ext.release 300 mg PO QHS blood vcktgrup04/05/23 [History Last Taken 12/14/23] brimonidine 0.2 % eye drops 1 drp ophthalmic (eye) BID Glaucoma 12/11/23 [History Last Taken 12/14/23] calcium carbonate 600 mg-vitamin D3 5 mcg (200 unit) tablet (Calcium 600 + D(3))1 tab PO DAILY vitamin deficient 12/11/23 [History Last Taken 12/14/23] lisinopril 40 mg tablet 20 mg PO DAILY HIG BLOOD PRESSURE 12/11/23 [History Last Taken 12/14/23] pantoprazole 40 mg tablet,delayed release 40 mg PO BID 30 days #60 tabs 12/13/23[Rx Last Taken 12/14/23] Allergy/AdvReac Type Severity Reaction Status Date / Time alendronate sodium AdvReac Severe myalgias Verified 12/15/23 05:40 [From Fosamax] amoxicillin [Amoxicillin] AdvReac Nausea/Vom/ Verified 12/15/23 05:40 Diarrhea metformin AdvReac Nausea/Vom/ Verified 12/15/23 05:40 Diarrhea shellfish derived AdvReac Nausea/Vom/ Verified 12/15/23 05:40 Diarrhea Family History Mother Hypertension Diabetes CVA (cerebral vascular accident) CAD (coronary artery disease) Father History of DVT (deep vein thrombosis) Surgical History History of eyelid surgery (05/28/23) History of total abdominal hysterectomy Presence of coronary angioplasty implant and graft (~05/23/09) S/P lumpectomy, right breast Social History household members: family housing: house Smoking Status: Never smoker alcohol intake: never substance use type: does not use caffeine: Yes Type: coffee Number of servings: 2 Lab / Micro Data 12/17/23 10:35 12/17/23 10:35 Labs: Laboratory Results - last 24 hr 12/15/23 06:25: Crossmatch See Detail 12/15/23 06:25: Crossmatch See Detail 12/16/23 18:54: POC Glucose 259 H 12/16/23 21:22: POC Glucose 239 H 12/17/23 08:22: POC Glucose 209 H 12/17/23 10:35: WBC 12.0 H, RBC 2.19 L, Hgb 6.8 L, Hct 20.1 L, MCV 91.8, MCH 31.1, MCHC 33.8, RDW Std Deviation 49.6 H, RDW Coeff of Emperatriz 15.5 H, Plt Count 144 L, MPV 10.1, Immature Gran % (Auto) 2.800 H, Neut % (Auto) 73.0 H, Lymph % (Auto) 13.8 L, Bartow % (Auto) 7.3, Eos % (Auto) 2.7, Baso % (Auto) 0.4, Absolute Neuts (auto) 8.8 H, Absolute Lymphs (auto) 1.66, Nucleated RBC % 0.7, Sodium 138, Potassium 3.2 L, Chloride 111 H, Carbon Dioxide 26.0, Anion Gap 1 L, BUN 24 H, Creatinine 0.66, Estim Creat Clear Calc 49.24, Est GFR (MDRD) Af Amer 111, Est GFR (MDRD) Non-Af 92, BUN/Creatinine Ratio 36.4 H, Glucose 140 H, Calcium 7.8 L 12/17/23 11:16: POC Glucose 130 H 12/17/23 16:30: POC Glucose 96 Imaging Radiology Impression Abdomen/Pelvis CTA 12/16/23 17:42 IMPRESSION: 1. Normal caliber aorta with no evidence of aneurysm, stenosis or dissection. Branches are patent. There is no evidence of acute GI bleed. 2. Linear metallic foreign body seen within the stomach that measures roughly 1.5 cm of uncertain etiology. This was not present on the previous exam. 3. Bilateral hydronephrosis and hydroureter. No stones are identified. The bladder is distended and may be causing bilateral vesicoureteral reflux. Electronically Signed: Sidney Benitez MD at 18:38 EST , 12/17/23 1822 <Electronically signed by Nitish Sood MD> Cosigner Signature (if applicable): CC: Dr. Nitish Sood MD; Dr. Vincent Schwab DO; Dr. Santo Love MD~ Signed [facility] Work Phone: [phone]) 499-751702-15-2024 Progress note Author Cullen Friend [facility] December 17, 2023 5:41pm Note Date/Time December 17, 2023 5:41pm [facility] Medical Records Department [address] [place] [address] Progress Note - GI 12/17/23 1739 MR#: [id number] Acct: [id number] Name: KELLIE DOZIER MARIETTA Rep #:[id number] : 1945 78 From: Cullen Ferrer DO PCP: Dr. Santo Love MD Status:ADM I N Location: [place] [address] Subjective Subjective Patient underwent repeat emergent upper endoscopy for GI bleed. He was discovered to have large peptic ulcer that was clipped and cauterized. Her hemoglobin did go down slightly. She was receiving transfusion of 1 unit packedred blood cells. Objective Data Objective Data Vital Signs: Vital Signs Temp Pulse Resp BP Pulse Ox O2 Del Method 98.8 F 85 16 125/62 H 98 Room Air 12/17/23 16:28 12/17/23 16:28 12/17/23 16:28 12/17/23 16:28 12/17/23 16:28 12/17/23 16:28 Oxygen Delivery Method Room Air Weight: 137 lb 9.095 oz Body Mass Index (BMI) 23.6 Intake & Output: Intake and Output for Last 24 Hours 12/15/23 12/16/23 12/17/23 23:59 23:59 23:59 Intake Total 206 / 2062 517 / 517 750 / 750 Output Total 250 / 250 1600 / 1600 1275 / 1275 Balance 1812 / 1812 -1083 / -1083 -525 / -525 Lab / Micro Data 12/17/23 10:35 12/17/23 10:35 Labs: Laboratory Results - last 24 hr 12/15/23 06:25: Crossmatch See Detail 12/15/23 06:25: Crossmatch See Detail 12/16/23 18:54: POC Glucose 259 H 12/16/23 21:22: POC Glucose 239 H 12/17/23 08:22: POC Glucose 209 H 12/17/23 10:35: WBC 12.0 H, RBC 2.19 L, Hgb 6.8 L, Hct 20.1 L, MCV 91.8, MCH 31.1, MCHC 33.8, RDW Std Deviation 49.6 H, RDW Coeff of Emperatriz 15.5 H, Plt Count 144 L, MPV 10.1, Immature Gran % (Auto) 2.800 H, Neut % (Auto) 73.0 H, Lymph % (Auto) 13.8 L, Bartow % (Auto) 7.3, Eos % (Auto) 2.7, Baso % (Auto) 0.4, Absolute Neuts (auto) 8.8 H, Absolute Lymphs (auto) 1.66, Nucleated RBC % 0.7, Sodium 138, Potassium 3.2 L, Chloride 111 H, Carbon Dioxide 26.0, Anion Gap 1 L, BUN 24H, Creatinine 0.66, Estim Creat Clear Calc 49.24, Est GFR (MDRD) Af Amer 111, Est GFR (MDRD) Non-Af 92, BUN/Creatinine Ratio 36.4 H, Glucose 140 H, Calcium 7.8 L 12/17/23 11:16: POC Glucose 130 H 12/17/23 16:30: POC Glucose 96 Radiography Diagnostic Testing: Radiology Impression Abdomen/Pelvis CTA 12/16/23 17:42 IMPRESSION: 1. Normal caliber aorta with no evidence of aneurysm, stenosis or dissection. Branches are patent. There is no evidence of acute GI bleed. 2. Linear metallic foreign body seen within the stomach that measures roughly 1.5 cm of uncertain etiology. This was not present on the previous exam. 3. Bilateral hydronephrosis and hydroureter. No stones are identified. The bladder is distended and may be causing bilateral vesicoureteral reflux. Electronically Signed: Sidney Benitez MD at 18:38 EST , Physical Exam Const alert, oriented x3, no apparent distress and average body habitus Constitutional Narrative: Pleasant elderly female, sitting up comfortably in bedside chair, conversing normally, no acute distress. General Appearance: cooperative and comfortable HEENT normocephalic, head/scalp atraumatic, hearing grossly normal bilaterally, nasal mucous membranes and turbinates normal and moist oral mucous membranes Eyes PERRL, EOMs intact bilaterally and conjunctivae normal Neck full ROM, no lymphadenopathy and supple Lymph Lymphatic: no lymphadenopathy noted Chest inspection of chest normal Chest Narrative: Mild tenderness to palpation in right lower chest/rib area, no significant bruising noted. Resp normal respiratory effort, normal air movement, no use of accessory muscles and clear to auscultation bilaterally Cardio regular rate, regular rhythm, no murmurs and peripheral pulses 2+ throughout GI normal to inspection, nondistended, normoactive bowel sounds, soft to palpation,non-tender and non-distended Back/Spine normal ROM Extremity normal to inspection, full ROM and no pedal edema Skin no rashes or lesions noted Neuro moves all extremities and no focal motor deficits Speech: speech normal Psych mental status grossly normal Assessment & Plan Assessment/Plan (1) UGIB (upper gastrointestinal bleed): (2) Acute blood loss anemia: PLAN: Plan Patient is a 78-year-old female who presented to [facility] ED on 12/11/2023 with hematemesis. Findings: The examined esophagus was normal. One oozing cratered gastric ulcer with pigmented material was found on the greater curvature of the stomach. The lesion was 6 mm in largest dimension. Area was successfully injected with 5 mL of a 0.1 mg/mL solution of epinephrine for drug delivery. To stop active bleeding, hemostatic spray was deployed. Five sprays were applied. There was no bleeding at the end of the procedure. Coagulation for hemostasis using heater probe was successful. Estimated blood loss was minimal. No gross lesions were noted in the first portion of the duodenum. One 5 mm angiodysplastic lesion with bleeding was found in the first portion of the duodenum. Coagulation for hemostasis using argon plasma at 0.3 liters/minute and 20 keller was successful. Estimated blood loss was minimal. Impression: - Normal esophagus. - Oozing gastric ulcer with pigmented material. Injected. hemostatic spray applied. Treated with a heater probe. - No gross lesions in the first portion of the duodenum. - No specimens collected. Recommendation: - Return patient to hospital chan for ongoing care. - NPO. - Continue present medications. Her hemoglobin is still slightly down to 6.8 from 7.9 to 6.8. Also her BUN to creatinine ratio is still elevated. She may be losing around the site even though it was treated yesterday due to poor wound healing. She also had some focal stranding consistent with enteritis extending to the cecum. I will order a CTA angiography to make sure there is no other site of bleeding that may need to be addressed endoscopically. 12/17/23 1741 <Electronically signed by Cullen Friend DO> Cosigner Signature (if applicable): CC: ~ Signed [facility] Work Phone: [phone] Progress note Author Gomez Johansen [facility] December 17, 2023 11:30am Note Date/Time December 17, 2023 11:30am [facility] Medical Records Department [address] [place] [address] Progress Note - Hospitalist 12/17/23 1127 MR#: [id number] Acct: [id number] Name: KELLIE DOZIER MARIETTA Rep #:[id number] : 1945 78 From: Gomez grove MD PCP: Dr. Santo Love MD Status:ADM I N Location: [place] [address] Subjective Subjective Doing well, CT yesterday demonstrated a full bladder with hydronephrosis so she was straight cathed for 1100 cc and then bladder scanned later for 600 cc so shehad a Avina placed Objective Data Objective Data Vital Signs: Vital Signs Temp Pulse Resp BP Pulse Ox O2 Del Method 98.4 F 89 16 122/57 H 97 Room Air 12/17/23 08:28 12/17/23 08:28 12/17/23 08:28 12/17/23 08:28 12/17/23 08:28 12/17/23 08:34 Oxygen Delivery Method Room Air Weight: 137 lb 9.095 oz Body Mass Index (BMI) 23.6 Intake & Output: Intake and Output for Last 24 Hours 12/16/23 12/17/23 12/18/23 03:59 03:59 03:59 Intake Total 2062 / 2062 617 / 617 550 / 550 Output Total 250 / 250 1600 / 1600 1275 / 1275 Balance 1812 / 1812 -983 / -983 -725 / -725 Lab / Micro Data 12/17/23 10:35 12/17/23 10:35 Labs: Laboratory Results - last 24 hr 12/15/23 06:25: Crossmatch See Detail 12/16/23 12:26: POC Glucose 424 H 12/16/23 18:54: POC Glucose 259 H 12/16/23 21:22: POC Glucose 239 H 12/17/23 10:35: WBC 12.0 H, RBC 2.19 L, Hgb 6.8 L, Hct 20.1 L, MCV 91.8, MCH 31.1, MCHC 33.8, RDW Std Deviation 49.6 H, RDW Coeff of Emperatriz 15.5 H, Plt Count 144 L, MPV 10.1, Immature Gran % (Auto) 2.800 H, Neut % (Auto) 73.0 H, Lymph % (Auto) 13.8 L, Bartow % (Auto) 7.3, Eos % (Auto) 2.7, Baso % (Auto) 0.4, Absolute Neuts (auto) 8.8 H, Absolute Lymphs (auto) 1.66, Nucleated RBC % 0.7, Sodium 138, Potassium 3.2 L, Chloride 111 H, Carbon Dioxide 26.0, Anion Gap 1 L, BUN 24H, Creatinine 0.66, Estim Creat Clear Calc 49.24, Est GFR (MDRD) Af Amer 111, Est GFR (MDRD) Non-Af 92, BUN/Creatinine Ratio 36.4 H, Glucose 140 H, Calcium 7.8 L Radiography Diagnostic Testing: Radiology Impression Abdomen/Pelvis CTA 12/16/23 17:42 IMPRESSION: 1. Normal caliber aorta with no evidence of aneurysm, stenosis or dissection. Branches are patent. There is no evidence of acute GI bleed. 2. Linear metallic foreign body seen within the stomach that measures roughly 1.5 cm of uncertain etiology. This was not present on the previous exam. 3. Bilateral hydronephrosis and hydroureter. No stones are identified. The bladder is distended and may be causing bilateral vesicoureteral reflux. Electronically Signed: Sidney Benitez MD at 18:38 EST , Physical Exam Narrative General: Alert, Oriented x3, Cooperative, No apparent distress HEENT: Atraumatic, PERRLA, EOMI, Normocephalic Oral: Moist Mucosa Neck: Supple, No JVD Lungs: Diminished, Normal air movement, No rhonchi, No wheeze, No rales Cardiovascular: Regular rate, Regular Rhythm, Normal S1, Normal S2, No murmurs Abdomen: Soft, nontender, Non-Distended, No Hepato-splenomegaly Extremities: No edema, Capillary Refill Less than 3 Seconds Skin: No rashes, No breakdown, pallor Musculoskeletal: No Tenderness to Palpation of Joints or Extremities Neurological: No focal neurological deficits, Motor Exam 5/5 strength throughout, Sensory exam intact to light touch and pain Psych/Mental Status: Normal Affect, Appropriate Assessment & Plan Assessment/Plan (1) Pyloric channel ulcer: (2) UGIB (upper gastrointestinal bleed): (3) Acute blood loss anemia: PLAN: Plan 1. Recurrent upper GI bleed with coffee-ground emesis, acute blood loss anemia Recent EGD on 12/[address] Friend showed a duodenal ulcer that was treated. Hemoglobin was stable at 9.3 on discharge on 12/13. Presume that recurrent GI bleed was due to resumption of home Eliquis. Presented with recurrent nausea/vomiting and coffee-ground emesis, hemoglobin 6.6 on 12/15. ? Admit under inpatient status to PCU. Gastroenterology consulted. N.p.o. for EGD. Continue PPI drip for now. Transfusing 2 units of packed blood cells on 12/15, repeat hemoglobin pending. Holding home Eliquis. 12/16/2023: Will need to transfuse 1 unit today with a hemoglobin of 6.8, CT of the abdomen and pelvis is pending to eval for bleeding and this abdominal pain 12/17/2023: Hemoglobin dropped again to 6.8, will repeat a unit of blood, no obvious signs of bleeding on the CTA of the abdomen pelvis yesterday though did show a dilated bladder and hydronephrosis. Continue with Avina and will discussthe case with gastroenterology 2. Paroxysmal atrial fibrillation ? Sinus tachycardia on admission secondary to GI bleed. On Eliquis for anticoagulation, holding in setting of GI bleed as noted above. Will need to discuss with gastroenterology prior to discharge on plan for anticoagulation. Holding home verapamil for now, restart when able. 12/16: Heart rate stable 3. Mild leukocytosis ? WBC count 14.0 on admit. Suspect secondary to acute stress state, low concernfor active infection. Follow-up a.m. CBC. 4. Type 2 diabetes mellitus with hyperglycemia ? BG 410 on admit. Home regimen of Lantus 20 units at night and Trulicity. Start Lantus 15 units at night with sliding-scale insulin with regular glucose checks while inpatient, adjust as needed. 5. Recent mechanical fall with right-sided rib pain ? Imaging on previous admission with no acute fractures or significant hematomasnoted. PT/OT/case management followed during that admission, was okay for discharge home with no needs. Continue Tylenol as needed for pain. 6. Urinary retention ? Will consult urology ? Continue with Avina Chronic medical conditions: ? History of CAD s/p stenting, hypertension, hyperlipidemia: Continue home statin, holding home lisinopril. ? History of breast carcinoma s/p lumpectomy DVT: SCDs Charges/Coding Visit Charges Inpatient E&M: 64460 Subs Hosp L2 12/17/23 1130 <Electronically signed by Gomez Johansen MD> Cosigner Signature (if applicable): CC: ~ Signed [facility] Work Phone: [phone] 828-691702-15-2024 Progress note Author Gomez Johansen [facility] December 17, 2023 11:27am Note Date/Time December 16, 2023 6:59pm [facility] Medical Records Department [address] [place] [address] Progress Note - Hospitalist 12/16/23 1859 MR#: [id number] Acct: [id number] Name: KELLIE DOZIER Rep #:[id number] : 1945 78 From: Gomez grove MD PCP: Dr. Santo Love MD Status:ADM I N Location: [place] [address] Subjective Subjective Hemoglobin this morning was 6.8, complaining of some lower pelvic pain. CTA of her abdomen and pelvis is pending Objective Data Objective Data Vital Signs: Vital Signs Temp Pulse Resp BP Pulse Ox O2 Del Method 98 F 84 16 169/69 H 95 Room Air 12/16/23 18:25 12/16/23 18:25 12/16/23 18:25 12/16/23 18:25 12/16/23 18:25 12/16/23 18:25 Oxygen Delivery Method Room Air Weight: 137 lb 9.095 oz Body Mass Index (BMI) 23.6 Intake & Output: Intake and Output for Last 24 Hours 12/15/23 12/16/23 12/17/23 03:59 03:59 03:59 Intake Total 2061 316 / 316 Output Total 250 / 250 300 / 300 Balance 1812 / 1812 16 / Lab / Micro Data 12/17/23 10:35 12/17/23 10:35 Labs: Laboratory Results - last 24 hr 12/15/23 06:25: Crossmatch See Detail 12/15/23 21:43: POC Glucose 349 H 12/16/23 06:25: POC Glucose 246 H 12/16/23 06:45: WBC 13.9 H, RBC 2.21 L, Hgb 6.8 L, Hct 19.7 L, MCV 89.1, MCH 30.8, MCHC 34.5 D, RDW Std Deviation 49.7 H, RDW Coeff of Emperatriz 15.9 H, Plt [id number], MPV 10.6, Sodium 141, Potassium 3.8, Chloride 111 H, Carbon Dioxide 22.0, Anion Gap 8, BUN 34 H, Creatinine 0.76, Estim Creat Clear Calc 49.24, Est GFR (MDRD) Af Amer 94, Est GFR (MDRD) Non-Af 78, BUN/Creatinine Ratio 44.7 H, Glucose 270 H, Calcium 7.9 L 12/16/23 12:26: POC Glucose 424 H Radiography Diagnostic Testing: Radiology Impression Abdomen/Pelvis CTA 12/16/23 17:42 IMPRESSION: 1. Normal caliber aorta with no evidence of aneurysm, stenosis or dissection. Branches are patent. There is no evidence of acute GI bleed. 2. Linear metallic foreign body seen within the stomach that measures roughly 1.5 cm of uncertain etiology. This was not present on the previous exam. 3. Bilateral hydronephrosis and hydroureter. No stones are identified. The bladder is distended and may be causing bilateral vesicoureteral reflux. Electronically Signed: Sidney Benitez MD at 18:38 EST , Physical Exam Narrative General: Alert, Oriented x3, Cooperative, No apparent distress HEENT: Atraumatic, PERRLA, EOMI, Normocephalic Oral: Moist Mucosa Neck: Supple, No JVD Lungs: Diminished, Normal air movement, No rhonchi, No wheeze, No rales Cardiovascular: Regular rate, Regular Rhythm, Normal S1, Normal S2, No murmurs Abdomen: Soft, minimally tender lower pelvis, Non-Distended, No Hepato- splenomegaly Extremities: No edema, Capillary Refill Less than 3 Seconds Skin: No rashes, No breakdown, pallor Musculoskeletal: No Tenderness to Palpation of Joints or Extremities Neurological: No focal neurological deficits, Motor Exam 5/5 strength throughout, Sensory exam intact to light touch and pain Psych/Mental Status: Normal Affect, Appropriate Assessment & Plan Assessment/Plan (1) Pyloric channel ulcer: (2) UGIB (upper gastrointestinal bleed): (3) Acute blood loss anemia: PLAN: Plan 1. Recurrent upper GI bleed with coffee-ground emesis, acute blood loss anemia Recent EGD on 12/[address] Ferrer showed a duodenal ulcer that was treated. Hemoglobin was stable at 9.3 on discharge on 12/13. Presume that recurrent GI bleed was due to resumption of home Eliquis. Presented with recurrent nausea/vomiting and coffee-ground emesis, hemoglobin 6.6 on 12/15. ? Admit under inpatient status to PCU. Gastroenterology consulted. N.p.o. for EGD. Continue PPI drip for now. Transfusing 2 units of packed blood cells on 12/15, repeat hemoglobin pending. Holding home Eliquis. 12/16/2023: Will need to transfuse 1 unit today with a hemoglobin of 6.8, CT of the abdomen and pelvis is pending to eval for bleeding and this abdominal pain 2. Paroxysmal atrial fibrillation ? Sinus tachycardia on admission secondary to GI bleed. On Eliquis for anticoagulation, holding in setting of GI bleed as noted above. Will need to discuss with gastroenterology prior to discharge on plan for anticoagulation. Holding home verapamil for now, restart when able. 12/16: Heart rate stable 3. Mild leukocytosis ? WBC count 14.0 on admit. Suspect secondary to acute stress state, low concernfor active infection. Follow-up a.m. CBC. 4. Type 2 diabetes mellitus with hyperglycemia ? BG 410 on admit. Home regimen of Lantus 20 units at night and Trulicity. Start Lantus 15 units at night with sliding-scale insulin with regular glucose checks while inpatient, adjust as needed. 5. Recent mechanical fall with right-sided rib pain ? Imaging on previous admission with no acute fractures or significant hematomasnoted. PT/OT/case management followed during that admission, was okay for discharge home with no needs. Continue Tylenol as needed for pain. Chronic medical conditions: ? History of CAD s/p stenting, hypertension, hyperlipidemia: Continue home statin, holding home lisinopril. ? History of breast carcinoma s/p lumpectomy DVT: SCDs Charges/Coding Visit Charges Inpatient E&M: 84764 Subs Hosp L2 12/17/23 1127 <Electronically signed by Gomez Johansen MD> Cosigner Signature (if applicable): CC: ~ Signed [facility] Work Phone: [phone]) 743-828602-14-2024 Progress note Author Cullen Ferrer [facility] December 16, 2023 5:15pm Note Date/Time December 16, 2023 5:14pm [facility] Medical Records Department [address] [place] [address] Progress Note - GI 12/16/23 1712 MR#: [id number] Acct: [id number] Name: KELLIE DOZIER Rep #:[id number] : 1945 78 From: Cullen Ferrer DO PCP: Dr. Santo Love MD Status:ADM I N Location: [place] [address] Subjective Subjective Patient underwent emergent endoscopy yesterday. She denies any abdominal pain. She did have some dark stools overnight. She not have any vomiting overnight. Objective Data Objective Data Vital Signs: Vital Signs Temp Pulse Resp BP Pulse Ox O2 Del Method 98.6 F 95 16 141/75 H 92 Room Air 12/16/23 16:25 12/16/23 16:25 12/16/23 16:25 12/16/23 16:25 12/16/23 16:25 12/16/23 16:25 Oxygen Delivery Method Room Air Weight: 137 lb 9.095 oz Body Mass Index (BMI) 23.6 Intake & Output: Intake and Output for Last 24 Hours 12/14/23 12/15/23 12/16/23 23:59 23:59 23:59 Intake Total 2061 316 / 316 Output Total 250 / 250 300 / 300 Balance 1812 / 1812 Lab / Micro Data 12/16/23 06:45 12/16/23 06:45 Labs: Laboratory Results - last 24 hr 12/15/23 06:17: Crossmatch See Detail 12/15/23 06:25: Crossmatch See Detail 12/15/23 17:21: POC Glucose 257 H 12/15/23 18:45: WBC 14.1 H, RBC 2.63 L, Hgb 7.9 L, Hct 24.2 L, MCV 92.0, MCH 30.0, MCHC 32.6, RDW Std Deviation 51.6 H, RDW Coeff of Emperatriz 15.7 H, Plt Count 160, MPV 10.5 12/15/23 21:43: POC Glucose 349 H 12/16/23 06:25: POC Glucose 246 H 12/16/23 06:45: WBC 13.9 H, RBC 2.21 L, Hgb 6.8 L, Hct 19.7 L, MCV 89.1, MCH 30.8, MCHC 34.5 D, RDW Std Deviation 49.7 H, RDW Coeff of Emperatriz 15.9 H, Plt [id number], MPV 10.6, Sodium 141, Potassium 3.8, Chloride 111 H, Carbon Dioxide 22.0, Anion Gap 8, BUN 34 H, Creatinine 0.76, Estim Creat Clear Calc 49.24, Est GFR (MDRD) Af Amer 94, Est GFR (MDRD) Non-Af 78, BUN/Creatinine Ratio 44.7 H, Glucose 270 H, Calcium 7.9 L 12/16/23 12:26: POC Glucose 424 H Physical Exam Const alert, oriented x3, no apparent distress and average body habitus Constitutional Narrative: Pleasant elderly female, sitting up comfortably in bedside chair, conversing normally, no acute distress. General Appearance: cooperative and comfortable HEENT normocephalic, head/scalp atraumatic, hearing grossly normal bilaterally, nasal mucous membranes and turbinates normal and moist oral mucous membranes Eyes PERRL, EOMs intact bilaterally and conjunctivae normal Neck full ROM, no lymphadenopathy and supple Lymph Lymphatic: no lymphadenopathy noted Chest inspection of chest normal Chest Narrative: Mild tenderness to palpation in right lower chest/rib area, no significant bruising noted. Resp normal respiratory effort, normal air movement, no use of accessory muscles and clear to auscultation bilaterally Cardio regular rate, regular rhythm, no murmurs and peripheral pulses 2+ throughout GI normal to inspection, nondistended, normoactive bowel sounds, soft to palpation,non-tender and non-distended Back/Spine normal ROM Extremity normal to inspection, full ROM and no pedal edema Skin no rashes or lesions noted Neuro moves all extremities and no focal motor deficits Speech: speech normal Psych mental status grossly normal Assessment & Plan Assessment/Plan (1) UGIB (upper gastrointestinal bleed): (2) Acute blood loss anemia: PLAN: Plan Patient is a 78-year-old female who presented to [facility] ED on 12/11/2023 with hematemesis. Findings: The examined esophagus was normal. One oozing cratered gastric ulcer with pigmented material was found on the greater curvature of the stomach. The lesion was 6 mm in largest dimension. Area was successfully injected with 5 mL of a 0.1 mg/mL solution of epinephrine for drug delivery. To stop active bleeding, hemostatic spray was deployed. Five sprays were applied. There was no bleeding at the end of the procedure. Coagulation for hemostasis using heater probe was successful. Estimated blood loss was minimal. No gross lesions were noted in the first portion of the duodenum. One 5 mm angiodysplastic lesion with bleeding was found in the first portion of the duodenum. Coagulation for hemostasis using argon plasma at 0.3 liters/minute and 20 keller was successful. Estimated blood loss was minimal. Impression: - Normal esophagus. - Oozing gastric ulcer with pigmented material. Injected. hemostatic spray applied. Treated with a heater probe. - No gross lesions in the first portion of the duodenum. - No specimens collected. Recommendation: - Return patient to hospital chan for ongoing care. - NPO. - Continue present medications. Her hemoglobin is still slightly down to 6.8 from 7.9. Also her BUN to creatinine ratio is still elevated. She may be losing around the site even though itwas treated yesterday due to poor wound healing. She also had some focal stranding consistent with enteritis extending to the cecum. I will order a CTA angiography to make sure there is no other site of bleeding that may need to be addressed endoscopically. Charges/Coding Visit Charges Inpatient E&M: 52119 Subs Hosp 12/16/23 4609 <Electronically signed by Cullen Friend DO> Cosigner Signature (if applicable): CC: ~ Signed [facility] Work Phone: 1([phone]) 659-255102-13-2024 History and physical note Author Tahir Rivas [facility] December 15, 2023 4:30pm Note Date/Time December 15, 2023 11:37am [facility] Medical Records Department [facility] [place] [address] [place] [address] H&P Exam - Hospitalist 12/15/23 1136 MR#: [id number] Acct: [id number] Name: KELLIE DOZIER Rep #:[id number] : 1945 78 From: Tahir ontiveros DO PCP: Dr. Santo Love MD Status:ADM I N Location: [place] [address] HPI - General General Date of Admission: 12/15/23 Date of Service: 12/15/23 Chief Complaint: Recurrent upper GI bleed HPI Narrative KELLIE DOZIER, is a 78 F who presented to [facility] ED on morning of 12/15/2023 with recurrent upper GI bleed. Patient was recently hospitalized at [facility] from 12/11 to 12/13 for an upper GI bleed with acute blood lossanemia. Gastroenterology followed, EGD 12/12 showed a duodenal ulcer that was treated. Patient's hemoglobin level remained stable on 12/13, discussed with GI and patient was okay for discharge home on p.o. PPI twice daily. Decision was made to restart patient's home Eliquis 5 mg twice daily that she was on for A-fib. Patient stated that she began having nausea with coffee-ground emesis about 6 to 8 hours prior to admission. She denied any bright red blood hematemesis. She did report melena, which had been present for her since her recent hospitalization, but she denied passing any bright red blood or maroon-colored stool. Patient was found to have hemoglobin of 6.6 in the ED, down from 9.3 on 12/13. Was also found to be tachycardic but was maintaining an adequate blood pressure. Hospitalist was contacted at that time for admission. Patient seen at bedside in the ED, daughter present. Patient was laying comfortably in bed, in no acute distress. Patient did appear fairly pale and fatigued. Patient stated she had not had any further episodes of coffee-ground emesis since arrival to the ED. She denied any lightheadedness or dizziness at rest. She denied any abdominal pain or discomfort. No other acute concerns at this time. 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 Essential hypertension GERD (gastroesophageal reflux disease) Liver mass Malignant neoplasm of right breast Old myocardial infarction Paroxysmal atrial fibrillation 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 tachycardia Presence of stent in coronary artery (~05/23/09) Pure hypercholesterolemia Type 2 diabetes mellitus Home Medications apixaban 5 mg tablet (Eliquis) 5 mg PO BID a.fib 09/06/19 [History Last Taken 12/14/23] cyanocobalamin (vitamin B-12) 1,000 mcg tablet 1,000 mcg PO DAILY vitamin deficient 09/06/19 [History Last Taken 12/14/23] pravastatin 80 mg tablet 80 mg PO QHS cholesterol 09/06/19 [History Last Taken 12/14/23] pyridoxine (vitamin B6) 100 mg tablet 100 mg PO DAILY vitamin deficient 09/06/19[History Last Taken 12/14/23] nitroglycerin 0.4 mg sublingual tablet 0.4 mg sublingual Q5-15M PRN chest pain #90 tabs 09/08/19 [Rx Last Taken Unknown] insulin glargine U-300 conc 300 unit/mL (1.5 mL) subcutaneous pen 20 unit subcutQHS diabetes 08/14/21 [History Last Taken 12/14/23] dulaglutide 4.5 mg/0.5 mL subcutaneous pen injector (Trulicity) 4.5 mg subcut MO08/06/23 [History Last Taken 12/07/23] verapamil 300 mg capsule 24hr pellet CT,ext.release 300 mg PO QHS blood bjbmehza87/05/23 [History Last Taken 12/14/23] brimonidine 0.2 % eye drops 1 drp ophthalmic (eye) BID Glaucoma 12/11/23 [History Last Taken 12/14/23] calcium carbonate 600 mg-vitamin D3 5 mcg (200 unit) tablet (Calcium 600 + D(3))1 tab PO DAILY vitamin deficient 12/11/23 [History Last Taken 12/14/23] lisinopril 40 mg tablet 20 mg PO DAILY HIG BLOOD PRESSURE 12/11/23 [History Last Taken 12/14/23] pantoprazole 40 mg tablet,delayed release 40 mg PO BID 30 days #60 tabs 12/13/23[Rx Last Taken 12/14/23] Allergy/AdvReac Type Severity Reaction Status Date / Time alendronate sodium AdvReac Severe myalgias Verified 12/15/23 05:40 [From Fosamax] amoxicillin [Amoxicillin] AdvReac Nausea/Vom/ Verified 12/15/23 05:40 Diarrhea metformin AdvReac Nausea/Vom/ Verified 12/15/23 05:40 Diarrhea shellfish derived AdvReac Nausea/Vom/ Verified 12/15/23 05:40 Diarrhea Family History Mother Hypertension Diabetes CVA (cerebral vascular accident) CAD (coronary artery disease) Father History of DVT (deep vein thrombosis) Surgical History History of eyelid surgery (05/28/23) History of total abdominal hysterectomy Presence of coronary angioplasty implant and graft (~05/23/09) S/P lumpectomy, right breast Social History household members: family housing: house Smoking Status: Never smoker alcohol intake: never substance use type: does not use caffeine: Yes Type: coffee Number of servings: 2 ROS Constitutional Constitutional: Reports fatigue and weakness; Denies chills or fever(s) Eyes Eyes: Denies change in vision Cardiovascular Cardiovascular: Reports lightheadedness and rapid heart rate; Denies chest pain, edema, palpitations or syncope Respiratory/Chest Respiratory/Chest: Reports shortness of breath with exertion; Denies cough, shortness of breath at rest or wheezing Gastrointestinal Gastrointestinal: Reports coffee ground emesis, diarrhea, melena, nausea and vomiting; Denies abdominal pain or constipation Genitourinary Genitourinary: Denies dysuria Musculoskeletal Musculoskeletal: Denies arthralgias or back pain Neurologic Neurologic: Denies dizziness, focal weakness or headache(s) Vital Signs Vital Signs Vital Signs: 12/15/23 05:40 12/15/23 07:14 12/15/23 07:46 Temperature 97.2 F L 98.2 F Temperature Source Temporal Oral Pulse Rate 144 H 108 H 109 H Pulse Strength Respiratory Rate 16 16 18 Respiratory Effort Respiratory Depth Respiratory Pattern Blood Pressure 134/64 H 132/59 H 106/57 L Blood Pressure Mean 87 83 73 Blood Pressure Source Monitor Blood Pressure Position Semi-Fowlers Blood Pressure Location Left Arm Pulse Ox 94 98 95 Oxygen Delivery Method Room Air Room Air 12/15/23 08:08 12/15/23 10:27 12/15/23 11:26 Temperature 97.7 F L Temperature Source Axillary Pulse Rate 96 Pulse Strength Normal (2+) Respiratory Rate 18 Respiratory Effort Normal Non-Labored Respiratory Depth Normal Respiratory Pattern Normal Blood Pressure 86/50 L Blood Pressure Mean 62 Blood Pressure Source Monitor Blood Pressure Position Semi-Fowlers Blood Pressure Location Left Arm Pulse Ox 93 Oxygen Delivery Method Room Air Room Air Weight Weight: 62.4 kg Body Mass Index (BMI) 23.6 Physical Exam Const alert, no apparent distress and average body habitus Constitutional Narrative: Elderly female, pale and fatigued appearing, otherwise laying comfortably in bed, conversing normally, no acute distress. General Appearance: cooperative and comfortable HEENT normocephalic, head/scalp atraumatic, hearing grossly normal bilaterally and nasal mucous membranes and turbinates normal Eyes PERRL, EOMs intact bilaterally and conjunctivae normal Neck full ROM, no lymphadenopathy and supple Lymph Lymphatic: no lymphadenopathy noted Chest inspection of chest normal Resp normal respiratory effort, normal air movement, no use of accessory muscles and clear to auscultation bilaterally Cardio no murmurs and peripheral pulses 2+ throughout Cardio Narrative: Tachycardic, regular rhythm. GI normal to inspection, nondistended, normoactive bowel sounds, soft to palpation, non-tender and non-distended Back/Spine normal ROM Extremity normal to inspection, full ROM and no pedal edema Skin no rashes or lesions noted Neuro moves all extremities and no focal motor deficits Speech: speech normal Psych mental status grossly normal Results Lab / Micro Data 12/15/23 05:30 12/15/23 05:30 Labs: Laboratory Results - last 24 hr 12/15/23 05:30: WBC 14.0 H, RBC 2.19 L, Hgb 6.6 L, Hct 20.5 L, MCV 93.6, MCH 30.1, MCHC 32.2, RDW Std Deviation 46.3 H, RDW Coeff of Emperatriz 13.9, Plt Count 239, MPV 10.7, Immature Gran % (Auto) 1.400 H, Neut % (Auto) 80.0 H, Lymph % (Auto) 12.6 L, [place]ow % (Auto) 5.6, Eos % (Auto) 0.0, Baso % (Auto) 0.4, Absolute Neuts (auto) 11.2 H, Absolute Lymphs (auto) 1.77, Nucleated RBC % 0, Sodium 141, Potassium 4.5, Chloride 109 H, Carbon Dioxide 23.0, Anion Gap 9, BUN 41 H, Creatinine 0.84, Estim Creat Clear Calc 51.80, Est GFR (MDRD) Af Amer 84, Est GFR (MDRD) Non-Af 70, BUN/Creatinine Ratio 49.0 H, Glucose 410 H, Calcium 8.8 12/15/23 05:44: POC Glucose 352 H 12/15/23 06:05: Blood Type A POSITIVE, Antibody Screen NEGATIVE 12/15/23 06:17: Crossmatch See Detail Assessment & Plan Assessment/Plan (1) Pyloric channel ulcer: (2) UGIB (upper gastrointestinal bleed): (3) Acute blood loss anemia: PLAN: Plan Patient is a 78-year-old female who presented to [facility] on 12/15/2023 with a recurrent upper GI bleed. 1. Recurrent upper GI bleed with coffee-ground emesis, acute blood loss anemia Recent EGD on 12/[address] Ferrer showed a duodenal ulcer that was treated. Hemoglobin was stable at 9.3 on discharge on 12/13. Presume that recurrent GI bleed was due to resumption of home Eliquis. Presented with recurrent nausea/vomiting and coffee-ground emesis, hemoglobin 6.6 on 12/15. ? Admit under inpatient status to PCU. Gastroenterology consulted. N.p.o. for EGD. Continue PPI drip for now. Transfusing 2 units of packed blood cells on 12/15, repeat hemoglobin pending. Holding home Eliquis. 2. Paroxysmal atrial fibrillation ? Sinus tachycardia on admission secondary to GI bleed. On Eliquis for anticoagulation, holding in setting of GI bleed as noted above. Will need to discuss with gastroenterology prior to discharge on plan for anticoagulation. Holding home verapamil for now, restart when able. 3. Mild leukocytosis ? WBC count 14.0 on admit. Suspect secondary to acute stress state, low concern for active infection. Follow-up a.m. CBC. 4. Type 2 diabetes mellitus with hyperglycemia ? BG 410 on admit. Home regimen of Lantus 20 units at night and Trulicity. Start Lantus 15 units at night with sliding-scale insulin with regular glucose checks while inpatient, adjust as needed. 5. Recent mechanical fall with right-sided rib pain ? Imaging on previous admission with no acute fractures or significant hematomas noted. PT/OT/case management followed during that admission, was okay for discharge home with no needs. Continue Tylenol as needed for pain. Chronic medical conditions: ? History of CAD s/p stenting, hypertension, hyperlipidemia: Continue home statin, holding home lisinopril. ? History of breast carcinoma s/p lumpectomy DVT prophylaxis: SCDs CODE STATUS: Full code, verified Expected disposition: Home, 2 to 3 days Total clinical time spent by myself addressing the patient's medical issues, reviewing all the data, and collaborating with patient's care team: 55 minutes. Charges/Coding Visit Charges Inpatient E&M: 50849 Init Hosp L2 12/15/23 1630 <Electronically signed by Tahir Rivas DO> Cosigner Signature (if applicable): CC: Dr. Tahir Rivas DO; Dr. Santo Love MD~ Signed [facility] Work Phone: 1(616) 760-573902-13-2024 Procedure [facility] 12-15-2023 Procedure [facility]02-13-2024 History of Present illness Narrative* Eli Lyons Ma - 12/15/2023 10:27 AM EST Patient is currently readmitted to [facility]. Eli Lyons Ma * Eli Lyons Ma - 12/14/2023 10:23 AM EST TRANSITION CARE MANAGEMENT (TCM) INITIAL CONTACT Systems Development Consultant Outreach Provider Action/FYI: Pt is to follow up with Dr Ferrer within the next few weeks Initial contact with patient post discharge, spoke to :CONTACT NOT MADE, LEFT MESSAGE. Patient identified by name and . TRANSITION CARE MANAGEMENT INITIAL OUTREACH DOCUMENTATION: Date of Outreach: 12/14/2023 Outreach Attempt 1: Contact Not Made Date of Discharge 12/13/2023 Some recent data might be hidden SUMMARY: -Pt discharged from [facility] on 12/13/23. -Admitted for: GI BLEED Do you have a hospital follow up appointment with your PCP? MEDICATIONS: Many patients have questions or concerns about their medications once they are home. Were you prescribed any new medications? Yes If yes, what are those medications? PANTOPRAZOLE 40 MG BID [facility] Discharge summary Author Panchito Zavaleta [facility] December 15, 2023 7:13am Note Date/Time December 15, 2023 5:53am [facility] Medical Records Department [address] [place] [address] Emergency Department Summary 12/15/23 MR#: [id number] Acct: [id number] Name: KELLIE DOZIER Rep #:[id number] : 1945 78 From: Panchito Zavaleta MD PCP: Dr. Santo Love MD Status:REG E R Location: ED HPI HPI - GI History of Present Illness Chief Complaint: Nausea/Vomiting/Diarrhea Informant: patient, family and EMS Narrative Narrative: Patient presents by EMS for 6-8 hours or so of nausea/vomiting with hematemesis. She states it is dark red, almost black emesis. No bright red blood. She was discharged from the hospital a day or so prior to the onset of this, she was here for upper GI bleeding, had an EGD that showed duodenal ulcer. She was off of her apixaban while in the hospital but told it was okay to restart it for paroxysmal atrial fibrillation when she went home; her last dose was just prior to the onset of this bleeding last night. She states she has felt lightheaded. She denies any abdominal pain. She has been having melena, but that started while she was in the hospital. She denies passing any bright red blood or maroon blood per rectum. No chest pain or dyspnea. No syncopal episodes. EMS gave her a sublingual Zofran but she vomited it up. 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 Essential hypertension GERD (gastroesophageal reflux disease) Liver mass Malignant neoplasm of right breast Old myocardial infarction Paroxysmal atrial fibrillation 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 tachycardia Presence of stent in coronary artery (~05/23/09) Pure hypercholesterolemia Type 2 diabetes mellitus Home Medications apixaban 5 mg tablet (Eliquis) 5 mg PO BID a.fib 09/06/19 [History Last Taken 02/12/21] cyanocobalamin (vitamin B-12) 1,000 mcg tablet 1,000 mcg PO DAILY 09/06/19 [History Last Taken 02/12/21] pravastatin 80 mg tablet 80 mg PO QHS 09/06/19 [History Last Taken 02/11/21] pyridoxine (vitamin B6) 100 mg tablet 100 mg PO DAILY 09/06/19 [History Last Taken 02/12/21] nitroglycerin 0.4 mg sublingual tablet 0.4 mg sublingual Q5-15M PRN chest pain #90 tabs 09/08/19 [Rx Last Taken Unknown] insulin glargine U-300 conc 300 unit/mL (1.5 mL) subcutaneous pen 20 unit subcutQHS 08/14/21 [History Last Taken Unknown] dulaglutide 4.5 mg/0.5 mL subcutaneous pen injector (Trulicity) 4.5 mg subcut MO08/06/23 [History Last Taken 12/07/23] verapamil 300 mg capsule [address]hr pellet CT,ext.release 300 mg PO QHS 08/06/23 [History Last Taken Unknown] brimonidine 0.2 % eye drops 1 drp ophthalmic (eye) BID 12/11/23 [History Last Taken Unknown] calcium carbonate 600 mg-vitamin D3 5 mcg (200 unit) tablet (Calcium 600 + D(3))1 tab PO DAILY 12/11/23 [History Last Taken Unknown] lisinopril 40 mg tablet 20 mg PO DAILY HIG BLOOD PRESSURE 12/11/23 [History Last Taken Unknown] pantoprazole 40 mg tablet,delayed release 40 mg PO BID 30 days #60 tabs 12/13/23[Rx Last Taken Unknown] Allergy/AdvReac Type Severity Reaction Status Date / Time alendronate sodium AdvReac Severe myalgias Verified 12/15/23 05:40 [From Fosamax] amoxicillin [Amoxicillin] AdvReac Nausea/Vom/ Verified 12/15/23 05:40 Diarrhea metformin AdvReac Nausea/Vom/ Verified 12/15/23 05:40 Diarrhea shellfish derived AdvReac Nausea/Vom/ Verified 12/15/23 05:40 Diarrhea Family History Mother Hypertension Diabetes CVA (cerebral vascular accident) CAD (coronary artery disease) Father History of DVT (deep vein thrombosis) Surgical History History of eyelid surgery (05/28/23) History of total abdominal hysterectomy Presence of coronary angioplasty implant and graft (~05/23/09) S/P lumpectomy, right breast Social History household members: family housing: house Smoking Status: Never smoker alcohol intake: never substance use type: does not use caffeine: Yes Type: coffee Number of servings: 2 ROS ROS ED Constitutional Constitutional ED: Reports fatigue and weakness; Denies chills or fever(s) Eyes Eyes: Denies change in vision or diplopia ENT ENT ED: Denies rhinorrhea or sore throat Cardiovascular Cardiovascular: Denies chest pain or palpitations Respiratory/Chest Respiratory/Chest: Denies cough or dyspnea Gastrointestinal Gastrointestinal: Reports as per HPI, hematemesis, melena, nausea and vomiting; Denies abdominal pain Genitourinary Genitourinary ED: Denies dysuria or hematuria Musculoskeletal Musculoskeletal: Denies back pain or neck pain Integumentary Denies abscess or rash Neurologic Neurologic: Denies headache(s), paresthesias or weakness Psychiatric Psychiatric: Denies depression or suicidal thoughts EXAM Physical Exam Const Vital Signs: 12/15/23 05:40 Temperature 97.2 F L Temperature Source Temporal Pulse Rate 144 H Respiratory Rate 16 Blood Pressure 134/64 H Blood Pressure Mean 87 Pulse Ox 94 Oxygen Delivery Method Room Air Positive well nourished and well developed General Appearance ED: well developed and NAD HEENT Reports moist mucous membranes normocephalic and atraumatic Eyes PERRL and EOMs intact bilaterally Neck full ROM and supple Resp normal respiratory effort and clear to auscultation bilaterally Cardio regular rate, regular rhythm and no murmurs Rate: tachycardic GI non-tender and non-distended Auscultation: normoactive bowel sounds Palpation: soft Back/Spine no CVA tenderness General Back: other FROM Extremity normal to inspection General Extremety ED: Negative for edema, pulses abnormal or tenderness General Extremity: Negative for edema or pulses abnormal Neuro oriented x3, CN's II-XII intact bilaterally and no sensory deficits noted Sensorium / Orientation: awake and alert Motor Exam: strength 5/5 throughout Psych mental status grossly normal and thought process normal Skin no rashes or lesions noted and no wounds MDM MDM MDM Narrative Medical decision making narrative: Patient was given IV fluids and Zofran which did help her nausea, her blood pressure remained stable, her heart rate decreased although still mildly tachycardic, and she is clinically stable. Her hemoglobin has dropped significantly now down to 6.6, and given that she is still vomiting dark blood my suspicion is that she may still be having active upper GI bleeding. Her BUN is 41 with a normal creatinine, consistent with this. I consented her for blood, her daughter was present during that discussion, all questions answered at the bedside and she consents for blood, I am ordering her 2 units given the fact that she may still be bleeding and we will start her back on a pantoprazoledrip as well. History & Record Review Additional record(s) reviewed:: Prior inpatient record and Prior ED visit Lab Data Attestation: I reviewed the patient's lab results. Labs: Laboratory Results - last 24 hr 12/15/23 12/15/23 05:30 05:44 WBC 14.0 H RBC 2.19 L Hgb 6.6 L Hct 20.5 L MCV 93.6 MCH 30.1 MCHC 32.2 RDW Std Deviation 46.3 H RDW Coeff of Emperatriz 13.9 Plt Count 239 MPV 10.7 Immature Gran % (Auto) 1.400 H Neut % (Auto) 80.0 H Lymph % (Auto) 12.6 L [place] % (Auto) 5.6 Eos % (Auto) 0.0 Baso % (Auto) 0.4 Absolute Neuts (auto) 11.2 H Absolute Lymphs (auto) 1.77 Nucleated RBC % 0 Sodium 141 Potassium 4.5 Chloride 109 H Carbon Dioxide 23.0 Anion Gap 9 BUN 41 H Creatinine 0.84 Estim Creat Clear Calc 51.80 Est GFR (MDRD) Af Amer 84 Est GFR (MDRD) Non-Af 70 BUN/Creatinine Ratio 49.0 H Glucose 410 H Calcium 8.8 POC Glucose 352 H Management Discussion w/another healthcare provider: Hospitalist Critical Care Time Critical Care Time: Yes Critical care time (excluding procedures): 30-74 minutes (36 min), Including time spent:, Discussing w/Patient &/or Family/Cafe Cook, Discussing w/Consultants, Arranging Admission or Transfer and Performing Direct Patient Care at Bedside Discharge Plan Dx/Rx/DC Orders Clinical Impression: Acute blood loss anemia, UGIB (upper gastrointestinal bleed), On apixaban therapy, Pyloric channel ulcer Disposition Disposition: Acute Care Hospital [facility] What to do if you have Problems For any increased pain, shortness of breath, bleeding, nausea or vomiting, chestpain, or any unexpected problems, contact your Primary Care Provider. Call [facility] ([phone]) or report to the closest Emergency Room. Call 911 if necessary. 12/15/23 0713 <Electronically signed by Panchito Zavaleta MD> Cosigner Signature (if applicable): CC: Dr. Santo Love MD ~ Signed [facility] Work Phone: [phone] 665-745302-11-2024 Discharge summary Author Tahir [facility] December 13, 2023 3:42pm Note Date/Time December 13, 2023 3:32pm [facility] Medical Records Department [address] [place] [id number] Discharge Summary 12/13/23 1528 MR#: [id number] Acct: [id number] Name: KELLIE DOZIER Rep #:[id number] : 1945 78 From: Tahir ontiveros DO PCP: Dr. Santo Love MD Status:ADM I N Location: [place] [address] Providers Date of Admission: 12/11/23 Date of Discharge: 12/13/23 Primary Care Physician: Dr. Santo Love MD Consultations 12/11/23 12:20 Consult: Gastroenterology Routine Consulting Provider: [facility] Reason for Consult: GI bleed EMERGENT Consult: No MD Notified: Yes Date Notified: 12/11/23 Time Notified: 11:48 Method of Notification: Text Reason For Visit: GI BLEED Diagnosis Discharge Diagnosis (1) UGIB (upper gastrointestinal bleed): Status: Acute Code(s): K92.2 - Gastrointestinal hemorrhage, unspecified (2) Acute blood loss anemia: Status: Acute Code(s): D62 - Acute posthemorrhagic anemia Medications at Discharge Home Medications apixaban 5 mg tablet (Eliquis) 5 mg PO BID a.fib 09/06/19 cyanocobalamin (vitamin B-12) 1,000 mcg tablet 1,000 mcg PO DAILY 09/06/19 pravastatin 80 mg tablet 80 mg PO QHS 09/06/19 pyridoxine (vitamin B6) 100 mg tablet 100 mg PO DAILY 09/06/19 nitroglycerin 0.4 mg sublingual tablet 0.4 mg sublingual Q5-15M PRN chest pain #90 tabs 09/08/19 insulin glargine U-300 conc 300 unit/mL (1.5 mL) subcutaneous pen 20 unit subcutQHS 08/14/21 dulaglutide 4.5 mg/0.5 mL subcutaneous pen injector (Trulicity) 4.5 mg subcut MO08/06/23 verapamil 300 mg capsule 24hr pellet CT,ext.release 300 mg PO QHS 08/06/23 brimonidine 0.2 % eye drops 1 drp ophthalmic (eye) BID 12/11/23 calcium carbonate 600 mg-vitamin D3 5 mcg (200 unit) tablet (Calcium 600 + D(3))1 tab PO DAILY 12/11/23 lisinopril 40 mg tablet 20 mg PO DAILY HIG BLOOD PRESSURE 12/11/23 pantoprazole 40 mg tablet,delayed release 40 mg PO BID 30 days #60 tabs 12/13/23 Hospital Course Operations None Procedures EGD, EKG and - (Chest x-ray, CT abdomen pelvis) Summary of Care Provided Minutes Spent on Discharge: 35 Hospital Course: Patient is a 78-year-old female who presented to [facility] ED on 12/11/2023 with hematemesis. Hospital course as noted below. Patient discharged home in stable condition on 12/13. . Hematemesis secondary to upper GI bleed, Acute blood loss anemia Suspect secondary to upper GI bleed. Recent fall forward onto chest in setting of Eliquis use may be contributing to patient's presentation. No significant history of GERD, no previous history of GI bleeds. Unclear if colonic findings on imaging are contributing to current presentation. Hemoglobin 10.8 on admit, baseline hemoglobin unclear, previous hemoglobin values in 12-13 range back in 2017. Elevated BUN to creatinine ratio of 37 noted. Chest x-ray on admit showed small right midlung nodules, otherwise no cardiopulmonary disease. CT abdomen pelvis showed focal stranding in right lower quadrant as well as nonspecific fluid-filled small bowel loops concerning for enteritis. Patient notably denies diarrhea or lower abdominal symptoms recently. ? GI followed. 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 Hemoglobin 8.6 on 12/12, repeat hemoglobin 9.3 after EGD on 12/13. Iron studies showed no iron deficiency anemia, folate was normal, B12 pending on discharge. Continue p.o. PPI twice daily on discharge. Okay to resume home Eliquis on discharge as well. Follow-up with GI in the office in the next few weeks. 2. Recent mechanical fall with right-sided rib pain ? Imaging on admit as noted above, no acute fractures or significant hematomas noted. PT/OT/case management followed. Tylenol as needed for pain. Okay for home without any needs on discharge. 3. Mild leukocytosis, resolved ? WBC count 13 K on admit, improved to 7K on hospital day 2. Likely secondary to acute stress state. No need to monitor further. 4. Type 2 diabetes mellitus with hyperglycemia ? Blood glucose 317 on admit. A1c 8.2% on admit, no recent A1c values found. Home regimen of Lantus 20 units at night, Trulicity weekly. Hyperglycemia improved during admission with Lantus 15 units at night plus sliding scale insulin with meals. Okay to resume home regimen on discharge. Chronic medical conditions: ? Paroxysmal atrial fibrillation: Follows with cardiology in the office. Okay to resume home Eliquis and verapamil on discharge. ? History of CAD s/p stenting, hypertension, hyperlipidemia: Continue home statin, okay to resume home lisinopril on discharge. ? History of breast carcinoma s/p lumpectomy Total clinical time spent by myself addressing the patient's discharge needs: 35minutes. Physical Exam Const alert, oriented x3, no apparent distress and average body habitus Constitutional Narrative: Pleasant elderly female, laying comfortably in bed, conversing normally, no acute distress. General Appearance: cooperative and comfortable HEENT normocephalic, head/scalp atraumatic, hearing grossly normal bilaterally, nasal mucous membranes and turbinates normal and moist oral mucous membranes Eyes PERRL, EOMs intact bilaterally and conjunctivae normal Neck full ROM, no lymphadenopathy and supple Lymph Lymphatic: no lymphadenopathy noted Chest inspection of chest normal Chest Narrative: Mild tenderness to palpation in right lower chest/rib area, no significant bruising noted. Resp normal respiratory effort, normal air movement, no use of accessory muscles and clear to auscultation bilaterally Cardio regular rate, regular rhythm, no murmurs and peripheral pulses 2+ throughout GI normal to inspection, nondistended, normoactive bowel sounds, soft to palpation,non-tender and non-distended Back/Spine normal ROM Extremity normal to inspection, full ROM and no pedal edema Skin no rashes or lesions noted Neuro moves all extremities and no focal motor deficits Speech: speech normal Psych mental status grossly normal Weight / BMI Weight Weight: 64.1 kg Body Mass Index (BMI) 24.3 ABG / Lab / Microbiology Data 12/13/23 06:42 12/12/23 05:22 Laboratory: Laboratory Results - last 24 hr 12/12/23 17:21: POC Glucose 196 H 12/12/23 21:16: POC Glucose 162 H 12/13/23 06:17: POC Glucose 158 H 12/13/23 06:42: WBC 8.4, RBC 3.02 L, Hgb 9.3 L, Hct 28.7 L, MCV 95.0, MCH 30.8, MCHC 32.4, RDW Std Deviation 45.8 H, RDW Coeff of Emperatriz 13.3, Plt Count 189, MPV 10.4 12/13/23 12:04: POC Glucose 247 H D/C Instructions Discharge Diet: No restrictions Weight Bearing Status: Full weight bearing Meaningful Use Info Meaningful Use Diagnoses (Choose all that apply): None applicable Discharge Plan Admission Admit Date/Time: 12/11/23 11:42 Primary Reason for Your Visit: GI bleed Attending Provider: Tahir Rivas Primary Care Provider: Santo Love Instructions Additional Instructions / Restrictions: Please start taking Protonix twice daily for your GI bleed. Continue all other home medications as normal. Follow-up with Dr. Ferrer in the office in the nextfew weeks. Discharge Orders/Prescriptions Prescriptions: New pantoprazole 40 mg Tablet,Delayed Release (Dr/Ec) 40 mg PO BID 30 Days Qty: 60 0RF Continued nitroglycerin 0.4 mg tablet, sublingual 0.4 mg sublingual Q5-15M PRN (Reason: chest pain) Qty: 90 6RF Eliquis 5 mg tablet 5 mg PO BID pravastatin 80 mg tablet 80 mg PO QHS cyanocobalamin (vitamin B-12) 1,000 mcg tablet 1,000 mcg PO DAILY pyridoxine (vitamin B6) 100 mg tablet 100 mg PO DAILY verapamil 300 mg capsule, [address] 300 mg PO QHS Trulicity 4.5 mg/0.5 mL pen injector 4.5 mg subcut MO Patient Comments: INJECT 4.5 MG SUBCUTANEOUSLY ONCE PER WEEK ON THURSDAY insulin glargine U-300 conc 300 unit/mL (1.5 mL) insulin pen 20 unit SC QHS brimonidine 0.2 % drops 1 drp ophthalmic (eye) BID Patient Comments: INSTILL 1 DROP INTO EACH EYE TWICE DAILY calcium carbonate-vitamin D3 [Calcium 600 + D(3)] 600 mg-5 mcg (200 unit) tablet 1 tab PO DAILY lisinopril 40 mg tablet 20 mg PO DAILY Referrals / Follow Up: Santo Love MD [Primary Care Provider] - Disposition Disposition (needs filled in before D/C Order can be placed): Home, Self Care Charges/Coding Visit Charges Inpatient E&M: 73927 Disch Hosp >30min 12/13/23 1542 <Electronically signed by Tahir Rivas DO> Cosigner Signature (if applicable): CC: Dr. Tahir Rivas DO; Dr. Santo Love MD~ Signed [facility] Work Phone: [phone]) 132-448902-11-2024 Discharge summary Author Tahir Rivas [facility] December 13, 2023 3:27pm Note Date/Time December 13, 2023 3:26pm [facility] Medical Records Department [address] [place] [id number] Instructions for Home/Discharge Instructions 12/13/23 1525 MR#: [id number] Acct: [id number] Name: KELLIE DOZIER MARIETTA Rep #:[id number] : 1945 78 From: Tahir ontiveros DO PCP: Dr. Santo Love MD Status:ADM I N Discharge Instructions Diet Discharge Diet: No restrictions Activity Discharge Activity: No Restrictions Weight Bearing Status: Full weight bearing Follow Up Care Test Results: Test results from this visit will be discussed in further detail at your follow- up appointment, if applicable. Discharge Plan Admission Admit Date/Time: 12/11/23 11:42 Primary Reason for Your Visit: GI bleed Attending Provider: Tahir Rivas Primary Care Provider: Santo Love Instructions Additional Instructions / Restrictions: Please start taking Protonix twice daily for your GI bleed. Continue all other home medications as normal. Follow-up with Dr. Ferrer in the office in the nextfew weeks. Discharge Orders/Prescriptions Prescriptions: New pantoprazole 40 mg Tablet,Delayed Release (Dr/Ec) 40 mg PO BID 30 Days Qty: 60 0RF Continued nitroglycerin 0.4 mg tablet, sublingual 0.4 mg sublingual Q5-15M PRN (Reason: chest pain) Qty: 90 6RF Eliquis 5 mg tablet 5 mg PO BID pravastatin 80 mg tablet 80 mg PO QHS cyanocobalamin (vitamin B-12) 1,000 mcg tablet 1,000 mcg PO DAILY pyridoxine (vitamin B6) 100 mg tablet 100 mg PO DAILY verapamil 300 mg capsule, [address] 300 mg PO QHS Trulicity 4.5 mg/0.5 mL pen injector 4.5 mg subcut MO Patient Comments: INJECT 4.5 MG SUBCUTANEOUSLY ONCE PER WEEK ON THURSDAY insulin glargine U-300 conc 300 unit/mL (1.5 mL) insulin pen 20 unit SC QHS brimonidine 0.2 % drops 1 drp ophthalmic (eye) BID Patient Comments: INSTILL 1 DROP INTO EACH EYE TWICE DAILY calcium carbonate-vitamin D3 [Calcium 600 + D(3)] 600 mg-5 mcg (200 unit) tablet 1 tab PO DAILY lisinopril 40 mg tablet 20 mg PO DAILY Referrals / Follow Up: Santo Love MD [Primary Care Provider] - Disposition Disposition (needs filled in before D/C Order can be placed): Home, Self Care 12/13/23 1527<Electronically signed by Tahir Rivas DO>Tahir Rivas DO CC: Dr. Santo Love MD ~ Signed [facility] Work Phone: 1(485) 471-973502-11-2024 [facility] Medical Records Department [address] [place] [address] Discharge Summary 12/13/23 1528 MR#: [id number] Acct: [id number] Name: KELLIE DOZIER Rep #: [id number] : 1945 78 From: Tahir Rivas DO PCP: Dr. Santo Love MD Status:ADM IN Location: [id number] Providers Date of Admission: 12/11/23 Date of Discharge: 12/13/23 Primary Care Physician: Dr. Santo Love MD Consultations 12/11/23 12:20 Consult: Gastroenterology Routine Consulting Provider: [facility] Reason for Consult: GI bleed EMERGENT Consult: No MD Notified: Yes Date Notified: 12/11/23 Time Notified: 11:48 Method of Notification: Text Reason For Visit: GI BLEED Diagnosis Discharge Diagnosis (1) UGIB (upper gastrointestinal bleed): Status: Acute Code(s): K92.2 - Gastrointestinal hemorrhage, unspecified (2) Acute blood loss anemia: Status: Acute Code(s): D62 - Acute posthemorrhagic anemia Medications at Discharge Home Medications apixaban 5 mg tablet (Eliquis) 5 mg PO BID a.fib 09/06/19 cyanocobalamin (vitamin B-12) 1,000 mcg tablet 1,000 mcg PO DAILY 09/06/19 pravastatin 80 mg tablet 80 mg PO QHS 09/06/19 pyridoxine (vitamin B6) 100 mg tablet 100 mg PO DAILY 09/06/19 nitroglycerin 0.4 mg sublingual tablet 0.4 mg sublingual Q5-15M PRN chest pain #90 tabs 09/08/19 insulin glargine U-300 conc 300 unit/mL (1.5 mL) subcutaneous pen 20 unit subcut QHS 08/14/21 dulaglutide 4.5 mg/0.5 mL subcutaneous pen injector (Trulicity) 4.5 mg subcut MO 08/06/23 verapamil 300 [address] capsule [address],ext.release 300 mg PO QHS 08/06/23 brimonidine 0.2 % eye drops 1 drp ophthalmic (eye) BID 12/11/23 calcium carbonate 600 mg-vitamin D3 5 mcg (200 unit) tablet (Calcium 600 + D(3)) 1 tab PO DAILY 12/11/23 lisinopril 40 mg tablet 20 mg PO DAILY HIG BLOOD PRESSURE 12/11/23 pantoprazole 40 mg tablet,delayed release 40 mg PO BID 30 days #60 tabs 12/13/23 Hospital Course Operations None Procedures EGD, EKG and - (Chest x-ray, CT abdomen pelvis) Summary of Care Provided Minutes Spent on Discharge: 35 Hospital Course: Patient is a 78-year-old female who presented to [facility] ED on 12/11/2023 with hematemesis. Hospital course as noted below. Patient discharged home in stable condition on 12/13. 1. Hematemesis secondary to upper GI bleed, Acute blood loss anemia Suspect secondary to upper GI bleed. Recent fall forward onto chest in setting of Eliquis use may be contributing to patient's presentation. No significant history of GERD, no previous history of GI bleeds. Unclear if colonic findings on imaging are contributing to current presentation. Hemoglobin 10.8 on admit, baseline hemoglobin unclear, previous hemoglobin values in - range back in 2017. Elevated BUN to creatinine ratio of 37 noted. Chest x-ray on admit showed small right midlung nodules, otherwise no cardiopulmonary disease. CT abdomen pelvis showed focal stranding in right lower quadrant as well as nonspecific fluid-filled small bowel loops concerning for enteritis. Patient notably denies diarrhea or lower abdominal symptoms recently. ??? GI followed. 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 Hemoglobin 8.6 on 12/12, repeat hemoglobin 9.3 after EGD on 12/13. Iron studies showed no iron deficiency anemia, folate was normal, B12 pending on discharge. Continue p.o. PPI twice daily on discharge. Okay to resume home Eliquis on discharge as well. Follow-up with GI in the office in the next few weeks. 2. Recent mechanical fall with right-sided rib pain ??? Imaging on admit as noted above, no acute fractures or significant hematomas noted. PT/OT/case management followed. Tylenol as needed for pain. Okay for home without any needs on discharge. 3. Mild leukocytosis, resolved ??? WBC count 13 K on admit, improved to 7K on hospital day 2. Likely secondary to acute stress state. No need to monitor further. 4. Type 2 diabetes mellitus with hyperglycemia ??? Blood glucose 317 on admit. A1c 8.2% on admit, no recent A1c values found. Home regimen of Lantus 20 units at night, Trulicity weekly. Hyperglycemia improved during admission with Lantus 15 units at night plus sliding scale insulin with meals. Okay to resume home regimen on discharge. Chronic medical conditions: ??? Paroxysmal atrial fibrillation: Follows with cardiology in the office. Okay to resume home Eliquis and verapamil on discharge. ??? History of CAD s/p stenting, hypertension, hyperlipidemia: Continue home statin, okay to resume home lisinopril on discharge. ??? History of breast carcinoma s/p lumpectomy Total clinical time spent by myself addressing the patient's discharge needs: 35 minutes. Physical Exam Const alert, oriented x3, no apparent distress and average body habitus Constitu (more content not included)...[facility]02-10-2024 Progress note Author Tahir Rivas [facility] December 12, 2023 2:31pm Note Date/Time December 12, 2023 12:29pm [facility] Medical Records Department [address] [place] [address] Progress Note - Hospitalist 12/12/23 1229 MR#: [id number] Acct: [id number] Name: KELLIE DOZIER MARIETTA Rep #:[id number] : 1945 78 From: Tahir ontiveros DO PCP: Dr. Santo Love MD Status:ADM I N Location: [place] [address] Reason for Visit Reason for Visit: Diagnoses Acute posthemorrhagic anemia (12/11/23) Gastrointestinal hemorrhage, unspecified (12/11/23) Subjective Subjective No acute events overnight. Patient seen at bedside this morning. Laying comfortably in bed, conversing normally, no acute distress. Was able to eat yesterday evening prior to midnight, has not been n.p.o. since then. Reports feeling hungry but otherwise denies any acute pain or discomfort. No further episodes of hematemesis since prior to admission. No other acute concerns this time. Objective Data Objective Data Vital Signs: Vital Signs Temp Pulse Resp BP Pulse Ox O2 Del Method 98.3 F 76 16 133/54 H 96 Room Air 12/12/23 11:23 12/12/23 11:23 12/12/23 11:23 12/12/23 11:23 12/12/23 11:23 12/12/23 11:23 Oxygen Delivery Method Room Air Weight: 64.1 kg Body Mass Index (BMI) 24.3 Intake & Output: Intake and Output for Last 24 Hours 12/10/23 12/11/23 12/12/23 23:59 23:59 23:59 Intake Total 1275 / 1515 313.83 / 313.83 Balance 1275 / 1515 313.83 / 313.83 Lab / Micro Data 12/12/23 05:22 12/12/23 05:22 Labs: Laboratory Results - last 24 hr 12/11/23 15:26: WBC 13.0 H, RBC 3.32 L, Hgb 10.0 L, Hct 30.7 L, MCV 92.5, MCH 30.1, MCHC 32.6, RDW Std Deviation 46.5 H, RDW Coeff of Emperatriz 13.7, Plt Count 234,MPV 10.4 12/11/23 16:35: POC Glucose 205 H 12/11/23 18:46: Hemoglobin A1c 8.2 H 12/11/23 22:06: POC Glucose 185 H 12/12/23 05:22: WBC 7.8, RBC 2.80 L, Hgb 8.6 L, Hct 26.3 L, MCV 93.9, MCH 30.7, MCHC 32.7, RDW Std Deviation 47.7 H, RDW Coeff of Emperatriz 13.8, Plt Count 181, MPV 10.1, Sodium 140, Potassium 3.6, Chloride 108 H, Carbon Dioxide 29.0, Anion Gap 3 L, BUN 35 H, Creatinine 0.74, Estim Creat Clear Calc 49.24, Est GFR (MDRD) Af Amer 96, Est GFR (MDRD) Non-Af 80, BUN/Creatinine Ratio 47.0 H, Glucose 190 H, Calcium 8.6, Iron 85, TIBC 237 L, Iron Saturation 35.9, Ferritin 187, Folate 16.00 12/12/23 06:29: POC Glucose 163 H 12/12/23 11:20: POC Glucose 161 H Rhythm Strip Rhythm Strip: sinus arrhythmia Rate: 95 Ectopy: None Physical Exam Const alert, oriented x3, no apparent distress and average body habitus Constitutional Narrative: Pleasant elderly female, laying comfortably in bed, conversing normally, no acute distress. General Appearance: cooperative and comfortable HEENT normocephalic, head/scalp atraumatic, hearing grossly normal bilaterally, nasal mucous membranes and turbinates normal and moist oral mucous membranes Eyes PERRL, EOMs intact bilaterally and conjunctivae normal Neck full ROM, no lymphadenopathy and supple Lymph Lymphatic: no lymphadenopathy noted Chest inspection of chest normal Chest Narrative: Mild tenderness to palpation in right lower chest/rib area, no significant bruising noted. Resp normal respiratory effort, normal air movement, no use of accessory muscles and clear to auscultation bilaterally Cardio regular rate, regular rhythm, no murmurs and peripheral pulses 2+ throughout GI normal to inspection, nondistended, normoactive bowel sounds, soft to palpation,non-tender and non-distended Back/Spine normal ROM Extremity normal to inspection, full ROM and no pedal edema Skin no rashes or lesions noted Neuro moves all extremities and no focal motor deficits Speech: speech normal Psych mental status grossly normal Assessment & Plan Assessment/Plan (1) UGIB (upper gastrointestinal bleed): (2) Acute blood loss anemia: PLAN: Plan Patient is a 78-year-old female who presented to [facility] ED on 12/11/2023 with hematemesis. 1. Hematemesis, acute blood loss anemia Suspect secondary to upper GI bleed. Recent fall forward onto chest in setting of Eliquis use may be contributing to patient's presentation. No significant history of GERD, no previous history of GI bleeds. Unclear if colonic findings on imaging are contributing to current presentation. Hemoglobin 10.8 on admit, baseline hemoglobin unclear, previous hemoglobin values in 12-13 range back in 2017. Elevated BUN to creatinine ratio of 37 noted. Chest x-ray on admit showed small right midlung nodules, otherwise no cardiopulmonary disease. CT abdomen pelvis showed focal stranding in right lower quadrant as well as nonspecific fluid-filled small bowel loops concerning for enteritis. Patient notably denies diarrhea or lower abdominal symptoms recently. ? GI following. Planning for EGD today. Continue IV PPI drip. Hemoglobin 8.6 on 12/12, will follow-up CBC tomorrow morning. Iron studies showed no iron deficiency anemia, folate normal, B12 pending. Continue to hold home Eliquis. 2. Recent mechanical fall with right-sided rib pain ? Imaging on admit as noted above, no acute fractures or significant hematomas noted. PT/OT/case management following. Likely okay for home without any needson discharge. Tylenol as needed for pain. 3. Mild leukocytosis, resolved ? WBC count 13 K on admit, improved to 7K on hospital day 2. Likely secondary to acute stress state. Following CBCs daily as noted above. 4. Type 2 diabetes mellitus with hyperglycemia ? Blood glucose 317 on admit. No recent A1c values found. Home regimen of Lantus 20 units at night, Trulicity weekly. Continue Lantus 15 units at night plus sliding scale insulin with meals, adjust as needed. Chronic medical conditions: ? Paroxysmal atrial fibrillation: Follows with cardiology in the office. Holding home Eliquis for now given GI bleed as noted above. Will also hold homeverapamil for now, restart when able. ? History of CAD s/p stenting, hypertension, hyperlipidemia: Continue home statin, holding home lisinopril for now. ? History of breast carcinoma s/p lumpectomy DVT prophylaxis: SCDs CODE STATUS: Full code, verified Expected disposition: Home, 1 to 2 days Total clinical time spent by myself addressing the patient's medical issues, reviewing all the data, and collaborating with patient's care team: 35 minutes. Charges/Coding Visit Charges Inpatient E&M: 16647 Subs Hosp L2 12/12/23 1431 <Electronically signed by Tahir Rivas DO> Cosigner Signature (if applicable): CC: ~ Signed [facility] Work Phone: [phone]) 204-666302-09-2024 Consult note Author Cullen Ferrer [facility] December 11, 2023 8:37pm Note Date/Time December 11, 2023 8 :37pm [facility] Medical Records Department [address] [place] [address] Consultation - GI 12/11/232028 MR#: [id number] Acct: [id number] Name: KELLIE DOZIER MARIETTA Rep #:[id number] : 1945 78 From: Cullen Ferrer DO PCP: Dr. Santo Love MD Status:ADM I N Location: [place] [id number] HPI Consult Data Date of Consult: 12/11/23 HPI Narrative Reason for Consultation: GI bleed HPI Narrative: KELLIE DOZIER, is a 78 F with Afib on eliquis presents after an accidental fall 2 days ago. She was holding the leash and the dog pulled her down. She fell prone onto the floor inside her home. She has been having some pain in herright upper abdomen and ribs that started the day after. Yesterday she started vomiting, and overnight it turned red. Initially the emesis was dark, and the last 6 or 7 emesis was dark red blood. Her last bowel movement was yesterday and it was normal without diarrhea, melena,blood. She denies any chest pain or shortness of breath, she states her rib hurts in the right upper quadrant area, she does not have significant pain if she takes a deep breath. She denies any head injury although she has some bruising on her head that shestates was from a fall 1 or 2 weeks ago, she denies any back pain, extremity injury. She has a history of an MS with stents in her heart as well as A-fib for which she is on Eliquis. Last dose was a little more than 24 hours ago has not taken her morning medications due to vomiting this morning Her last hgb was 12 severall years ago prior to being admitted today. Her hgb today is 10.2. 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 Essential hypertension GERD (gastroesophageal reflux disease) Liver mass Malignant neoplasm of right breast Old myocardial infarction Paroxysmal atrial fibrillation 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 tachycardia Presence of stent in coronary artery (~05/23/09) Pure hypercholesterolemia Type 2 diabetes mellitus Home Medications apixaban 5 mg tablet (Eliquis) 5 mg PO BID a.fib 09/06/19 [History Last Taken 02/12/21] cyanocobalamin (vitamin B-12) 1,000 mcg tablet 1,000 mcg PO DAILY 09/06/19 [History Last Taken 02/12/21] pravastatin 80 mg tablet 80 mg PO QHS 09/06/19 [History Last Taken 02/11/21] pyridoxine (vitamin B6) 100 mg tablet 100 mg PO DAILY 09/06/19 [History Last Taken 02/12/21] nitroglycerin 0.4 mg sublingual tablet 0.4 mg sublingual Q5-15M PRN chest pain #90 tabs 09/08/19 [Rx Last Taken Unknown] insulin glargine U-300 conc 300 unit/mL (1.5 mL) subcutaneous pen 20 unit subcutQHS 08/14/21 [History Last Taken Unknown] dulaglutide 4.5 mg/0.5 mL subcutaneous pen injector (Trulicity) 4.5 mg subcut MO08/06/23 [History Last Taken 12/07/23] verapamil 300 mg capsule 24hr pellet CT,ext.release 300 mg PO QHS 08/06/23 [History Last Taken Unknown] brimonidine 0.2 % eye drops 1 drp ophthalmic (eye) BID 12/11/23 [History Last Taken Unknown] calcium carbonate 600 mg-vitamin D3 5 mcg (200 unit) tablet (Calcium 600 + D(3))1 tab PO DAILY 12/11/23 [History Last Taken Unknown] lisinopril 40 mg tablet 20 mg PO DAILY HIG BLOOD PRESSURE 12/11/23 [History Last Taken Unknown] Allergy/AdvReac Type Severity Reaction Status Date / Time alendronate sodium AdvReac Severe myalgias Verified 12/11/23 07:49 [From Fosamax] amoxicillin [Amoxicillin] AdvReac Nausea/Vom/ Verified 12/11/23 07:49 Diarrhea metformin AdvReac Nausea/Vom/ Verified 12/11/23 07:49 Diarrhea shellfish derived AdvReac Nausea/Vom/ Verified 12/11/23 07:49 Diarrhea Family History Mother Hypertension Diabetes CVA (cerebral vascular accident) CAD (coronary artery disease) Father History of DVT (deep vein thrombosis) Surgical History History of eyelid surgery (05/28/23) History of total abdominal hysterectomy Presence of coronary angioplasty implant and graft (~05/23/09) S/P lumpectomy, right breast Social History household members: family housing: house Smoking Status: Never smoker alcohol intake: never substance use type: does not use caffeine: Yes Type: coffee Number of servings: 2 ROS Constitutional Constitutional: Denies chills, fatigue, fever(s) or weakness Eyes Eyes: Denies change in vision ENT HEENT: Denies nasal congestion, nasal discharge, post nasal drip, sinus pressure or sore throat Cardiovascular Cardiovascular: Denies chest pain, dyspnea on exertion, edema or lightheadedness Respiratory/Chest Respiratory/Chest: Denies cough, shortness of breath at rest, shortness of breath with exertion or wheezing Gastrointestinal Gastrointestinal: Reports hematemesis, nausea and vomiting; Denies abdominal pain, constipation or diarrhea Genitourinary Genitourinary: Denies dysuria Musculoskeletal Musculoskeletal: Reports other Details: Right sided rib pain noted. ; Denies arthralgias or back pain Neurologic Neurologic: Denies dizziness, focal weakness or headache(s) Physical Exam Const alert, oriented x3, no apparent distress and average body habitus Constitutional Narrative: Pleasant elderly female, sitting up comfortably in bedside chair, conversing normally, no acute distress. General Appearance: cooperative and comfortable HEENT normocephalic, head/scalp atraumatic, hearing grossly normal bilaterally, nasal mucous membranes and turbinates normal and moist oral mucous membranes Eyes PERRL, EOMs intact bilaterally and conjunctivae normal Neck full ROM, no lymphadenopathy and supple Lymph Lymphatic: no lymphadenopathy noted Chest inspection of chest normal Chest Narrative: Mild tenderness to palpation in right lower chest/rib area, no significant bruising noted. Resp normal respiratory effort, normal air movement, no use of accessory muscles and clear to auscultation bilaterally Cardio regular rate, regular rhythm, no murmurs and peripheral pulses 2+ throughout GI normal to inspection, nondistended, normoactive bowel sounds, soft to palpation, non-tender and non-distended Back/Spine normal ROM Extremity normal to inspection, full ROM and no pedal edema Skin no rashes or lesions noted Neuro moves all extremities and no focal motor deficits Speech: speech normal Psych mental status grossly normal Lab / Micro Data 12/11/23 15:26 12/11/23 08:10 Labs: Laboratory Results - last 24 hr 12/11/23 08:10: WBC 13.6 H, RBC 3.63 L, Hgb 10.8 L, Hct 33.1 L, MCV 91.2, MCH 29.8, MCHC 32.6, RDW Std Deviation 46.0 H, RDW Coeff of Emperatriz 13.6, Plt Count 244, MPV 10.3, Immature Gran % (Auto) 0.400, Neut % (Auto) 86.0 H, Lymph % (Auto) 7.0 L, [place] % (Auto) 6.2, Eos % (Auto) 0.1, Baso % (Auto) 0.3, Absolute Neuts (auto) 11.7 H, Absolute Lymphs (auto) 0.95, Nucleated RBC % 0, Sodium 140, Potassium 4.2, Chloride 103, Carbon Dioxide 27.0, Anion Gap 10, BUN 37 H, Creatinine 0.98, Est GFR (MDRD) Af Amer 70, Est GFR (MDRD) Non-Af 58 L, BUN/Creatinine Ratio 37.8 H, Glucose 317 H, Calcium 9.1, Total Bilirubin 0.40, AST 16, ALT 24, Alkaline Phosphatase 96, Total Protein 6.5, Albumin 3.1 L, Globulin 3.4, Albumin/Globulin Ratio 0.9, Blood Type A POSITIVE, Antibody Screen NEGATIVE 12/11/23 10:40: Urine Color Yellow, Urine Clarity Sl. Cloudy, Urine pH 5.0, Ur Specific Holman 1.015, Urine Protein 15 H, Urine Glucose (UA) 1000 H, Urine Ketones 150 A*, Urine Occult Blood Negative, Urine Nitrite Negative, Urine Bilirubin 1 H, Urine Urobilinogen Normal, Ur Leukocyte Esterase 25 H, Urine RBC 0-5 SEEN, Urine WBC 0-5 SEEN, Ur Squamous Epith Cells 0-5 SEEN, Urine Bacteria RARE, Urine Mucus 1+ 12/11/23 15:26: WBC 13.0 H, RBC 3.32 L, Hgb 10.0 L, Hct 30.7 L, MCV 92.5, MCH 30.1, MCHC 32.6, RDW Std Deviation 46.5 H, RDW Coeff of Emperatriz 13.7, Plt Count 234, MPV 10.4 12/11/23 16:35: POC Glucose 205 H 12/11/23 18:46: Hemoglobin A1c 8.2 H Rhythm Strip Rhythm Strip: sinus arrhythmia Rate: 95 Ectopy: None Imaging Radiology Impression Abdomen/Pelvis CT 12/11/23 08:21 IMPRESSION: 1. Nonspecific fluid-filled small bowel loops without evidence of small bowel obstruction. Enteritis is possible. 2. Focal stranding right lower quadrant extending from the cecum. Thickened appendix is doubtful. Follow-up exam is recommended if indicated. Electronically Signed: Bryan Belle MD at 10:05 EST , Chest X-Ray 12/11/23 09:15 IMPRESSION: Small right midlung nodules. If no previous examination is available for comparison, CT scan of the chest is recommended. Otherwise no active pulmonary disease. Electronically Signed: Bryan Belle MD at 10:07 EST , Assessment & Plan Assessment/Plan (1) UGIB (upper gastrointestinal bleed): (2) Acute blood loss anemia: PLAN: Plan Patient is a 78-year-old female who presented to [facility] ED on 12/11/2023 with hematemesis. Upper GI bleed differential diagnosis doesn't include Richa White's tear, become a peptic ulcer disease, corazon, trauma, gastritis, esophagitis. Hemoglobin 10 on admit. Agree that her baseline is unknown,. CT abdomen pelvis showed focal stranding in right lower quadrant as well as nonspecific fluid-filled small bowel loops concerning for enteritis. Plan is for an EGD tomorrow. Keep NPO past midnight. Charges/Coding Visit Charges Inpatient E&M: 36421 Init Hosp L3 12/11/232036 <Electronically signed by Cullen Ferrer DO> Cosigner Signature (if applicable): CC: Dr. Santo Love MD~ Signed [facility] Work Phone: 1(103) 546-153602-09-2024 Discharge summary Author Panchito Zavaleta [facility] December 11, 2023 6:37pm Note Date/Time December 11, 2023 8 :27am [facility] Medical Records Department [address] [place] [address] Emergency Department Summary 12/11/23 MR#: [id number] Acct: [id number] Name: KELLIE DOZIER MARIETTA Rep #:[id number] : 1945 78 From: Panchito Zavaleta MD PCP: Dr. Santo Love MD Status:ADM I N Location: [place] [address] HPI HPI - GI History of Present Illness Chief Complaint: GI Bleed Informant: patient and family Narrative Narrative: Patient had an accidental fall 2 days ago. She was holding the leash and the dog pulled her down. She fell prone onto the floor inside her home. She has been having some pain in her right upper abdomen and ribs that started the day after. Yesterday she started vomiting, and overnight it turned red. Initially the emesis was dark, and the last 6 or 7 emesis was dark red blood. Her last bowel movement was yesterday and it was normal without diarrhea, melena, blood. She denies any chest pain or shortness of breath, she states her rib hurts in the right upper quadrant area, she does not have significant pain if she takes adeep breath. She denies any head injury although she has some bruising on her head that she states was from a fall 1 or 2 weeks ago, she denies any back pain,extremity injury. She has a history of an MS with stents in her heart as well as A-fib for which she is on Eliquis. Last dose was a little more than 24 hours ago has not taken her morning medications due to vomiting this morning. 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 Essential hypertension GERD (gastroesophageal reflux disease) Liver mass Malignant neoplasm of right breast Old myocardial infarction Paroxysmal atrial fibrillation 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 tachycardia Presence of stent in coronary artery (~05/23/09) Pure hypercholesterolemia Type 2 diabetes mellitus Home Medications apixaban 5 mg tablet (Eliquis) 5 mg PO BID a.fib 09/06/19 [History Last Taken 02/12/21] cyanocobalamin (vitamin B-12) 1,000 mcg tablet 1,000 mcg PO DAILY 09/06/19 [History Last Taken 02/12/21] pravastatin 80 mg tablet 80 mg PO QHS 09/06/19 [History Last Taken 02/11/21] pyridoxine (vitamin B6) 100 mg tablet 100 mg PO DAILY 09/06/19 [History Last Taken 02/12/21] nitroglycerin 0.4 mg sublingual tablet 0.4 mg sublingual Q5-15M PRN chest pain #90 tabs 09/08/19 [Rx Last Taken Unknown] insulin glargine U-300 conc 300 unit/mL (1.5 mL) subcutaneous pen 20 unit subcutQHS 08/14/21 [History Last Taken Unknown] dulaglutide 4.5 mg/0.5 mL subcutaneous pen injector (Trulicity) 4.5 mg subcut MO08/06/23 [History Last Taken 12/07/23] verapamil 300 mg capsule 24hr pellet CT,ext.release 300 mg PO QHS 08/06/23 [History Last Taken Unknown] brimonidine 0.2 % eye drops 1 drp ophthalmic (eye) BID 12/11/23 [History Last Taken Unknown] calcium carbonate 600 mg-vitamin D3 5 mcg (200 unit) tablet (Calcium 600 + D(3))1 tab PO DAILY 12/11/23 [History Last Taken Unknown] lisinopril 40 mg tablet 20 mg PO DAILY HIG BLOOD PRESSURE 12/11/23 [History Last Taken Unknown] Allergy/AdvReac Type Severity Reaction Status Date / Time alendronate sodium AdvReac Severe myalgias Verified 12/11/23 07:49 [From Fosamax] amoxicillin [Amoxicillin] AdvReac Nausea/Vom/ Verified 12/11/23 07:49 Diarrhea metformin AdvReac Nausea/Vom/ Verified 12/11/23 07:49 Diarrhea shellfish derived AdvReac Nausea/Vom/ Verified 12/11/23 07:49 Diarrhea Family History Mother Hypertension Diabetes CVA (cerebral vascular accident) CAD (coronary artery disease) Father History of DVT (deep vein thrombosis) Surgical History History of eyelid surgery (05/28/23) History of total abdominal hysterectomy Presence of coronary angioplasty implant and graft (~05/23/09) S/P lumpectomy, right breast Social History Smoking Status: Never smoker alcohol intake: never substance use type: does not use caffeine: Yes Type: coffee Number of servings: 2 ROS ROS ED Constitutional Constitutional ED: Reports fatigue and weakness; Denies chills or fever(s) Eyes Eyes: Denies change in vision or diplopia ENT ENT ED: Denies rhinorrhea or sore throat Cardiovascular Cardiovascular: Denies chest pain or palpitations Respiratory/Chest Respiratory/Chest: Denies cough or dyspnea Gastrointestinal Gastrointestinal: Reports abdominal pain, hematemesis, nausea and vomiting; Denies diarrhea, melena or rectal bleeding Genitourinary Genitourinary ED: Denies dysuria or hematuria Musculoskeletal Musculoskeletal: Denies back pain or neck pain Integumentary Denies abscess or rash Neurologic Neurologic: Denies headache(s), paresthesias or weakness Psychiatric Psychiatric: Denies anxiety or suicidal thoughts EXAM Physical Exam Const Vital Signs: 12/11/23 07:46 Temperature 98.1 F Temperature Source Temporal Pulse Rate 90 Respiratory Rate 16 Blood Pressure 157/144 H Blood Pressure Mean 148 Pulse Ox 99 Oxygen Delivery Method Room Air Positive well nourished and well developed General Appearance ED: well developed and NAD HEENT Reports moist mucous membranes HEENT Narrative: Old-appearing yellowing ecchymosis left forehead no tenderness or hematoma. I see no signs of acute HEENT trauma. normocephalic and atraumatic Eyes PERRL and EOMs intact bilaterally Neck full ROM and supple Chest Wall Chest Narrative: Tender right lower rib cage and chest wall diffusely all the way up to around the fourth or fifth rib just to the lateral aspect of the right breast. No crepitance. No flail. No other areas of rib tenderness. No deformity. No palpable step-offs. Resp normal respiratory effort and clear to auscultation bilaterally Cardio no murmurs Rhythm: abnormal rhythm irregularly irregular GI non-distended GI Narrative: Tender in the left lower quadrant in the right upper quadrant epigastrium. No rebound tenderness. Auscultation: normoactive bowel sounds Palpation: soft Back/Spine no CVA tenderness General Back: other FROM Extremity normal to inspection and full ROM General Extremety ED: Negative for edema, pulses abnormal or tenderness General Extremity: Negative for edema or pulses abnormal Neuro oriented x3, CN's II-XII intact bilaterally and no sensory deficits noted Sensorium / Orientation: awake and alert Motor Exam: strength 5/5 throughout Psych mental status grossly normal and thought process normal Skin no rashes or lesions noted and no wounds MDM MDM MDM Narrative Medical decision making narrative: Out of concern for upper GI bleeding in a delayed fashion after what sounds like a minor blunt abdominal injury, I obtained a CT as well as blood counts, chemistries, type and screen. I reviewed all of those results including the result of the CT and the images which I agree with, it does not show any obvious sequela of injury or trauma. It shows some nonspecific ascending colonic stranding in addition to findings consistent with enteritis but no free air or signs of a small bowel injury. Unknown if this patient is to go to a trauma center, but there are no obvious signs of intestinal injury on the CT so I do not think she needs a surgical consult emergently, so I initially discussed with GI Dr. Ferrer. He states he thinks it is most appropriate to keep the patient here on a Protonix drip which we already started, and he will consult. Discussed with hospitalist. At this time she is clinically and hemodynamically stable with no vomiting after Zofran and IV fluids, she does not need emergent blood transfusion with a hemoglobin around 10. Lab Data Attestation: I reviewed the patient's lab results. Labs: Laboratory Results - last 24 hr 12/11/23 12/11/23 08:10 10:40 WBC 13.6 H RBC 3.63 L Hgb 10.8 L Hct 33.1 L MCV 91.2 MCH 29.8 MCHC 32.6 RDW Std Deviation 46.0 H RDW Coeff of Emperatriz 13.6 Plt Count 244 MPV 10.3 Immature Gran % (Auto) 0.400 Neut % (Auto) 86.0 H Lymph % (Auto) 7.0 L Bartow % (Auto) 6.2 Eos % (Auto) 0.1 Baso % (Auto) 0.3 Absolute Neuts (auto) 11.7 H Absolute Lymphs (auto) 0.95 Nucleated RBC % 0 Sodium 140 Potassium 4.2 Chloride 103 Carbon Dioxide 27.0 Anion Gap 10 BUN 37 H Creatinine 0.98 Est GFR (MDRD) Af Amer 70 Est GFR (MDRD) Non-Af 58 L BUN/Creatinine Ratio 37.8 H Glucose 317 H Calcium 9.1 Total Bilirubin 0.40 AST 16 ALT 24 Alkaline Phosphatase 96 Total Protein 6.5 Albumin 3.1 L Globulin 3.4 Albumin/Globulin Ratio 0.9 Urine Color Yellow Urine Clarity Sl. Cloudy Urine pH 5.0 Ur Specific Holman 1.015 Urine Protein 15 H Urine Glucose (UA) 1000 H Urine Ketones 150 A* Urine Occult Blood Negative Urine Nitrite Negative Urine Bilirubin 1 H Urine Urobilinogen Normal Ur Leukocyte Esterase 25 H Urine RBC 0-5 SEEN Urine WBC 0-5 SEEN Ur Squamous Epith Cells 0-5 SEEN Urine Bacteria RARE Urine Mucus 1+ Blood Type A POSITIVE Antibody Screen NEGATIVE Radiography Diagnostic Testing: Clinical Impression(s) from Imaging Studies Abdomen/Pelvis CT 12/11/23 08:21 IMPRESSION: 1. Nonspecific fluid-filled small bowel loops without evidence of small bowel obstruction. Enteritis is possible. 2. Focal stranding right lower quadrant extending from the cecum. Thickened appendix is doubtful. Follow-up exam is recommended if indicated. Electronically Signed: Bryan Belle MD at 10:05 EST , Chest X-Ray 12/11/23 09:15 IMPRESSION: Small right midlung nodules. If no previous examination is available for comparison, CT scan of the chest is recommended. Otherwise no active pulmonary disease. Electronically Signed: Bryan Belle MD at 10:07 EST , Rhythm Strip Rhythm Strip: sinus arrhythmia Rate: 95 Ectopy: None EKG Initial EKG: Attestation: I personally reviewed and interpreted this EKG as follows: Interpretation: No Acute Injury Pattern and Sinus Arrythmia Management Discussion w/another healthcare provider: Hospitalist and [employer] (GI friend) Discharge Plan Dx/Rx/DC Orders Clinical Impression: Blunt traumatic injury of vljgmba-vcdfnngp-utopzh region, Contusion of rib on right side, Paroxysmal atrial fibrillation, Acute blood loss anemia, UGIB (upper gastrointestinal bleed), On apixaban therapy Disposition Disposition: Acute Care Hospital [facility] What to do if you have Problems For any increased pain, shortness of breath, bleeding, nausea or vomiting, chest pain, or any unexpected problems, contact your Primary Care Provider. Call [facility] ([phone]) or report to the closest Emergency Room. Call 911 if necessary. 12/11/23 6732 <Electronically signed by Panchito Zavaleta MD> Cosigner Signature (if applicable): CC: Dr. Santo Love MD ~ Signed [facility] Work Phone: [phone]) 656-234402-09-2024 History and physical note Author Tahir Rivas [facility] December 11, 2023 6:08pm Note Date/Time December 11, 2023 1 1:40am [facility] Medical Records Department [address] [place] [address] H&P Exam - Hospitalist 12/11/23 1137 MR#: [id number] Acct: [id number] Name: KELLIE DOZIER Rep #:[id number] : 1945 78 From: Tahir Camarillo llerick DO PCP: Dr. Santo Love MD Status:ADM I N Location: [place] [address] HPI - General General Date of Admission: 12/11/23 Date of Service: 12/11/23 Chief Complaint: Hematemesis HPI Narrative KELLIE DOZIER, is a 78 F who presented to [facility] ED on 12/11/2023 with hematemesis. Patient seen at bedside on the floor shortly after coming over from the ED, daughter present. Patient was sitting up comfortably in bedside chair, conversing normally, no acute distress. Patient lives with her daughter, has good functional status baseline. Patient is on Eliquis for A-fib, has never had issues with bleeding while on Eliquis. No previous history of GI bleeds. Patient states that she was walking the dog a few days ago when the dog pulled on the leash and patient fell forward to the ground. She did notlose consciousness. States she has had moderate right-sided rib pain since thattime. Patient then started to have vomiting yesterday evening and noticed that it was initially blood-tinged. She then had 6-7 episodes of dark red emesis later yesterday night and this morning which prompted her to come into the ED for further evaluation. Patient has not had any further episodes of hematemesissince arriving to the ED. She denies any shortness of breath at rest. She doesreport mild pain in her ribs and right upper abdomen but states this is very manageable at rest. States her last bowel movement was yesterday and it was normal without diarrhea, melena or blood. She otherwise denies any fevers or chills. No other acute concerns this time. 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 Essential hypertension GERD (gastroesophageal reflux disease) Liver mass Malignant neoplasm of right breast Old myocardial infarction Paroxysmal atrial fibrillation 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 tachycardia Presence of stent in coronary artery (~05/23/09) Pure hypercholesterolemia Type 2 diabetes mellitus Home Medications apixaban 5 mg tablet (Eliquis) 5 mg PO BID a.fib 09/06/19 [History Last Taken 02/12/21] cyanocobalamin (vitamin B-12) 1,000 mcg tablet 1,000 mcg PO DAILY 09/06/19 [History Last Taken 02/12/21] pravastatin 80 mg tablet 80 mg PO QHS 09/06/19 [History Last Taken 02/11/21] pyridoxine (vitamin B6) 100 mg tablet 100 mg PO DAILY 09/06/19 [History Last Taken 02/12/21] nitroglycerin 0.4 mg sublingual tablet 0.4 mg sublingual Q5-15M PRN chest pain #90 tabs 09/08/19 [Rx Last Taken Unknown] insulin glargine U-300 conc 300 unit/mL (1.5 mL) subcutaneous pen 20 unit subcutQHS 08/14/21 [History Last Taken Unknown] dulaglutide 4.5 mg/0.5 mL subcutaneous pen injector (Trulicity) 4.5 mg subcut MO08/06/23 [History Last Taken 12/07/23] verapamil 300 mg capsule 24hr pellet CT,ext.release 300 mg PO QHS 08/06/23 [History Last Taken Unknown] brimonidine 0.2 % eye drops 1 drp ophthalmic (eye) BID 12/11/23 [History Last Taken Unknown] calcium carbonate 600 mg-vitamin D3 5 mcg (200 unit) tablet (Calcium 600 + D(3))1 tab PO DAILY 12/11/23 [History Last Taken Unknown] lisinopril 40 mg tablet 20 mg PO DAILY HIG BLOOD PRESSURE 12/11/23 [History Last Taken Unknown] Allergy/AdvReac Type Severity Reaction Status Date / Time alendronate sodium AdvReac Severe myalgias Verified 12/11/23 07:49 [From Fosamax] amoxicillin [Amoxicillin] AdvReac Nausea/Vom/ Verified 12/11/23 07:49 Diarrhea metformin AdvReac Nausea/Vom/ Verified 12/11/23 07:49 Diarrhea shellfish derived AdvReac Nausea/Vom/ Verified 12/11/23 07:49 Diarrhea Family History Mother Hypertension Diabetes CVA (cerebral vascular accident) CAD (coronary artery disease) Father History of DVT (deep vein thrombosis) Surgical History History of eyelid surgery (05/28/23) History of total abdominal hysterectomy Presence of coronary angioplasty implant and graft (~05/23/09) S/P lumpectomy, right breast Social History household members: family housing: house Smoking Status: Never smoker alcohol intake: never substance use type: does not use caffeine: Yes Type: coffee Number of servings: 2 ROS Constitutional Constitutional: Denies chills, fatigue, fever(s) or weakness Eyes Eyes: Denies change in vision ENT HEENT: Denies nasal congestion, nasal discharge, post nasal drip, sinus pressure or sore throat Cardiovascular Cardiovascular: Denies chest pain, dyspnea on exertion, edema or lightheadedness Respiratory/Chest Respiratory/Chest: Denies cough, shortness of breath at rest, shortness of breath with exertion or wheezing Gastrointestinal Gastrointestinal: Reports hematemesis, nausea and vomiting; Denies abdominal pain, constipation or diarrhea Genitourinary Genitourinary: Denies dysuria Musculoskeletal Musculoskeletal: Reports other Details: Right sided rib pain noted. ; Denies arthralgias or back pain Neurologic Neurologic: Denies dizziness, focal weakness or headache(s) Vital Signs Vital Signs Vital Signs: 12/11/23 07:46 Temperature 98.1 F Temperature Source Temporal Pulse Rate 90 Respiratory Rate 16 Blood Pressure 157/144 H Blood Pressure Mean 148 Pulse Ox 99 Oxygen Delivery Method Room Air Physical Exam Const alert, oriented x3, no apparent distress and average body habitus Constitutional Narrative: Pleasant elderly female, sitting up comfortably in bedside chair, conversing normally, no acute distress. General Appearance: cooperative and comfortable HEENT normocephalic, head/scalp atraumatic, hearing grossly normal bilaterally, nasal mucous membranes and turbinates normal and moist oral mucous membranes Eyes PERRL, EOMs intact bilaterally and conjunctivae normal Neck full ROM, no lymphadenopathy and supple Lymph Lymphatic: no lymphadenopathy noted Chest inspection of chest normal Chest Narrative: Mild tenderness to palpation in right lower chest/rib area, no significant bruising noted. Resp normal respiratory effort, normal air movement, no use of accessory muscles and clear to auscultation bilaterally Cardio regular rate, regular rhythm, no murmurs and peripheral pulses 2+ throughout GI normal to inspection, nondistended, normoactive bowel sounds, soft to palpation, non-tender and non-distended Back/Spine normal ROM Extremity normal to inspection, full ROM and no pedal edema Skin no rashes or lesions noted Neuro moves all extremities and no focal motor deficits Speech: speech normal Psych mental status grossly normal Results Lab / Micro Data 12/11/23 15:26 12/11/23 08:10 Labs: Laboratory Results - last 24 hr 12/11/23 08:10: WBC 13.6 H, RBC 3.63 L, Hgb 10.8 L, Hct 33.1 L, MCV 91.2, MCH 29.8, MCHC 32.6, RDW Std Deviation 46.0 H, RDW Coeff of Emperatriz 13.6, Plt Count 244, MPV 10.3, Immature Gran % (Auto) 0.400, Neut % (Auto) 86.0 H, Lymph % (Auto) 7.0 L, Bartow % (Auto) 6.2, Eos % (Auto) 0.1, Baso % (Auto) 0.3, Absolute Neuts (auto) 11.7 H, Absolute Lymphs (auto) 0.95, Nucleated RBC % 0, Sodium 140, Potassium 4.2, Chloride 103, Carbon Dioxide 27.0, Anion Gap 10, BUN 37 H, Creatinine 0.98, Est GFR (MDRD) Af Amer 70, Est GFR (MDRD) Non-Af 58 L, BUN/Creatinine Ratio 37.8 H, Glucose 317 H, Calcium 9.1, Total Bilirubin 0.40, AST 16, ALT 24, Alkaline Phosphatase 96, Total Protein 6.5, Albumin 3.1 L, Globulin 3.4, Albumin/Globulin Ratio 0.9, Blood Type A POSITIVE, Antibody Screen NEGATIVE 12/11/23 10:40: Urine Color Yellow, Urine Clarity Sl. Cloudy, Urine pH 5.0, Ur Specific Holman 1.015, Urine Protein 15 H, Urine Glucose (UA) 1000 H, Urine Ketones 150 A*, Urine Occult Blood Negative, Urine Nitrite Negative, Urine Bilirubin 1 H, Urine Urobilinogen Normal, Ur Leukocyte Esterase 25 H, Urine RBC 0-5 SEEN, Urine WBC 0-5 SEEN, Ur Squamous Epith Cells 0-5 SEEN, Urine Bacteria RARE, Urine Mucus 1+ Rhythm Strip Rhythm Strip: sinus arrhythmia Rate: 95 Ectopy: None Imaging Radiology Impression Abdomen/Pelvis CT 12/11/23 08:21 IMPRESSION: 1. Nonspecific fluid-filled small bowel loops without evidence of small bowel obstruction. Enteritis is possible. 2. Focal stranding right lower quadrant extending from the cecum. Thickened appendix is doubtful. Follow-up exam is recommended if indicated. Electronically Signed: Bryan Belle MD at 10:05 EST , Chest X-Ray 12/11/23 09:15 IMPRESSION: Small right midlung nodules. If no previous examination is available for comparison, CT scan of the chest is recommended. Otherwise no active pulmonary disease. Electronically Signed: Bryan Belle MD at 10:07 EST , Assessment & Plan Assessment/Plan (1) UGIB (upper gastrointestinal bleed): (2) Acute blood loss anemia: PLAN: Plan Patient is a 78-year-old female who presented to [facility] ED on 12/11/2023 with hematemesis. 1. Hematemesis, mild acute normocytic anemia Suspect secondary to upper GI bleed. Recent fall forward onto chest in setting of Eliquis use may be contributing to patient's presentation. No significant history of GERD, no previous history of GI bleeds. Unclear if colonic findings on imaging are contributing to current presentation. Hemoglobin 10.8 on admit, baseline hemoglobin unclear, previous hemoglobin values in 12-13 range back in 2017. Elevated BUN to creatinine ratio of 37 noted. Chest x-ray on admit showed small right midlung nodules, otherwise no cardiopulmonary disease. CT abdomen pelvis showed focal stranding in right lower quadrant as well as nonspecific fluid-filled small bowel loops concerning for enteritis. Patient notably denies diarrhea or lower abdominal symptoms recently. ? Admit under inpatient status to PCU. GI consulted. Continue IV PPI drip. N.p.o. for now. Repeat hemoglobin 10.0 on the afternoon of 12/11, will recheck CBC again tomorrow morning. Iron studies with ferritin, B12 and folate ordered. Holding home Eliquis. 2. Recent mechanical fall with right-sided rib pain ? Imaging on admit as noted above, no acute fractures or significant hematomas noted. PT/OT/case management consulted. Tylenol as needed for pain. 3. Mild leukocytosis ? WBC count 13 K on admit. May be secondary to acute stress state versus mild gastroenteritis. Follow-up a.m. CBC. No need for antibiotics for now. 4. Type 2 diabetes mellitus with hyperglycemia ? Blood glucose 317 on admit. No recent A1c values found. Home regimen of Lantus 20 units at night, Trulicity weekly. Will start Lantus 15 units at night plus sliding scale insulin with meals, adjust as needed. Chronic medical conditions: ? Paroxysmal atrial fibrillation: Follows with cardiology in the office. Holding home Eliquis for now given GI bleed as noted above. Will also hold home verapamil for now, restart when able. ? History of CAD s/p stenting, hypertension, hyperlipidemia: Continue home statin, holding home lisinopril for now. ? History of breast carcinoma s/p lumpectomy DVT prophylaxis: SCDs CODE STATUS: Full code, verified Expected disposition: Home, 2 to 3 days Total clinical time spent by myself addressing the patient's medical issues, reviewing all the data, and collaborating with patient's care team: 55 minutes. Charges/Coding Visit Charges Inpatient E&M: 01042 Init Hosp L2 12/11/23 1808 <Electronically signed by Tahir Rivas DO> Cosigner Signature (if applicable): CC: Dr. Tahir Rivas DO; Dr. Santo Love MD~ Signed [facility] Work Phone: [phone] 569-190111-29-2023 Miscellaneous Notes* Telephone Encounter - [place] Lazara Mosley - 09/30/2023 8:36 AM EST Patient has been identified by name and [...] notify patient. Lazara Mosley documented in this encounterMercy Health St. [facility]09-20-2023 Miscellaneous Notes* Telephone Encounter - Herlinda Dickinson MSW - 07/22/2023 11:10 AM EDT Sw called Sw and noted that she did not receive [employer] application for Trulicity. Sw noted that she will mail application again to patient to work on completing. Patient notes that she will work on completing and bring in to Dr. Love office when complete. documented in this encounterMercy Health St. [facility]08-31-2023 History of Present illness Narrative* Dionna Shay Mammo Tech - 07/02/2023 8:30 AM EDT Radiology Service Progress Note PATIENT NAME: Kellie Dozier DATE OF SERVICE: July 02, 2023 TIME: 8:28 AM PATIENT IDENTITY VERIFICATION COMPLETED USING TWO (2) IDENTIFIERS: Name and Date of confirmedby patient verbally. FALL SCREENING: Has the patient [...] Porfirio Walden July 02, 2023 8:28 AM documented in this encounterMercy Health St. [facility]08-28-2023 Miscellaneous Notes* Telephone Encounter - Brittney Hinton LPN - 06/29/2023 11:37 AM EDT Patient phones requesting refills as follows: Requested Prescriptions Pending Prescriptions Disp Refills insulin glargine 100 unit/mL (3 mL) 2 Each 3 Sig: Inject 20 Units subcutaneously daily at bedtime. Patient assistance med ADAN 05/07/23 NOV 11/12/23 Please review and advise. Brittney Hinton LPN * Telephone Encounter - Dafne Khan - 06/29/2023 8:42 AM EDT Patient has been identified by name and date of : Yes Requested Prescriptions Pending Prescriptions Disp Refills insulin glargine 100 unit/mL (3 mL) 2 Each 3 Sig: Inject 20 Units subcutaneously daily at bedtime. Patient assistance med RX INSTRUCTIONS: Patient aware RX will be sent to pharmacy. No need to notify patient. Dafne Wilson documented in this encounterMercy Health St. [facility]07-07-2023 Miscellaneous Notes* Telephone Encounter - Tierney White - 05/08/2023 9:56 AM EDT Kellie informed and verbalized understanding. Tierney White * Telephone Encounter - Santo Love MD - 05/08/2023 9:47 AM EDT Labs are up. Increase trulicity. Recheck a1c in three months. Watch diet. documented in this encounterMercy Health St. [facility]07-06-2023 History of Present illness Narrative* Santo Love MD - 05/07/2023 10:38 AM EDT Patient presents with: 6 Month Exam HPI: [...] bouts of vertigo. 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 Last episode of vertigo was on 03/24/23. Only lasts for a day and has happened twice. No neuro issues. Red flags for re- assessment reviewed with patient in detail. Consider vestibular therapy. HLD: No myalgias Follows with Cardiology. Still on Eliquis and Verapamil. Having eyelid lift surgery on 05/28/[address] Richardson at [facility]. Component Latest Ref Rng & Units [...] needles, DISPOSABLE, (PEN NEEDLE) 31 gauge x 03/17 ndle Use as directed once daily as [...] percutaneous left heart catheterization 06/24/11 done [place] [facility] Malignant neoplasm of breast (female), unspecified site 1998 Breast cancer right OBESITY 12/16/2005 Osteoarthritis of right knee Osteopenia 05/21/2010 Paroxysmal SVT (supraventricular tachycardia) ([facility]) Dr Marcelo Pure hypercholesterolemia TUBERCULIN TEST [...] past medical history, surgical history, family history andsocial history today. REVIEW OF SYSTEMS No gi or gu complaints. All other reviewed and negative other than HPI. HEALTH MAINTENANCE: Reviewed health maintenance issues today and recommended the following in detail. DIABETIC FOOT EXAM due on 12/18/2022 VITALS: BP 106/52 Pulse 65 Ht 162.6 cm (5' 4) Wt 65.4 kg (144 lb 3.2 oz) [...] deformities, ulcers, calluses, normal distal pulses, and sensitiveto 10 gm monofilament ASSESSMENT/PLAN: 1. Essential hypertension [...] BASIC METABOLIC PNL - HGB A1C 6. half-way current use of anticoagulant - ICD9: V58.61, ICD10: Z79.01 - stable 7. Osteopenia, unspecified location - ICD9: 733.90, ICD10: M85.80 Up to date on bone density. 8. Malignant neoplasm of female breast, unspecified estrogen receptor status, unspecified laterality, unspecified site of breast (HCC) - ICD9: 174.9, ICD10: C50.919 - mammogram Santo Love MD documented in this encounterMercy Health St. [facility]05-05-2023 Miscellaneous Notes* Telephone Encounter - Swati Hall LPN - 03/06/2023 1:08 PM EDT Patient phones requesting refills as follows: Pharmacy comment: Please clarify the directions for this prescription. Requested Prescriptions Pending Prescriptions Disp Refills lisinopril (ZESTRIL) 40 mg tablet [Pharmacy Med Name: LISINOPRIL 40MG TAB] 90 tablet 3 Sig: TAKE 1/2 (ONE-HALF) TABLET BY MOUTH ONCE DAILY Please review and advise. Swati Hall LPN documented in this encounterMercy Health St. [facility]05-05-2023 Miscellaneous Notes* Telephone Encounter - Gail Kem - 03/06/2023 12:03 PM EDT Patient reviewed for Population Health Medication Adherence Pended the following prescription(s) for review. Requested Prescriptions Pending Prescriptions Disp Refills lisinopril (ZESTRIL) 40 mg tablet 90 tablet 3 Sig: Take 0.5 tablets by mouth once daily. Future Appointments Date Time Provider Department Center 05/07/2023 11:00 AM [facility] Please review and refill if appropriate. Thank you. Gail Brownlee March 06, 2023 12:03 PM documented in this encounterMercy Health St. [facility]03-30-2023 History of Present illness Narrative* Santo Love MD - 01/29/2023 10:18 AM EDT Patient presents with: Follow Up Diabetes HPI: [...] feeling like she is spinning but not theroom, No hearing loss. No falls No recent [...] percutaneous left heart catheterization 06/24/11 done [place] Malignant neoplasm of breast (female), unspecified site 1998 Breast cancer right OBESITY 12/16/2005 Osteoarthritis of right knee Osteopenia 05/21/2010 Paroxysmal SVT (supraventricular tachycardia) ([facility]) Dr Marcelo Pure hypercholesterolemia TUBERCULIN TEST [...] past medical history, surgical history, family history andsocial history today. REVIEW OF SYSTEMS All other [...] <130/80 3. Atherosclerosis of coronary artery of curyung heart without angina pectoris, unspecified vessel or [...] Bone density is up to date. Santo Love MD documented in this encounterMercy Health St. [facility]03-29-2023 Miscellaneous Notes* Telephone Encounter - SALMA Thomas - 01/28/2023 12:10 PM EDT Rambo took below applications up to ADRIANNA Magdaleno Dr[address] office. * Telephone Encounter - SALMA Thomas - 01/22/2023 11:07 AM EDT Patient spoke with Rambo regarding [employer]-Trulicity and Basaglar. 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 Patient reports that she is also keeping an eye on how much she is spending for [employer] for Eliquis. [employer] has a 3% spend out on prescriptions. Rambo will provide Dr. Love office with [employer] and [employer] applications along with consent for release forms. * Telephone Encounter - SALMA Thomas - 01/21/2023 1:24 PM EDT Rambo left patient message to call Sw back in regards to [employer] PAP for Trulicity and Basaglar. Rambo received note that states patient yearly application ends 03/25/23. Rambo will talk with patient about reapplying to program for above medications. documented in this encounterMercy Health St. [facility]03-17-2023 Miscellaneous Notes* Telephone Encounter - Genet Mosley - 01/16/2023 12:12 PM EDT Pharmacy verified [facility] Patient has been identified by name [...] advise. Genet Krishna Pss documented in this encounterMercy Health St. [facility]03-02-2023 Instructions* Patient Instructions* Talya Rodriguez PA-C - 01/01/2023 11:32 AM EST [...] you. You may also be given a Franklin-Hallpike position test. You start the Candelario-Hallpike test by sitting upright on the examining table. Your healthcare providerslowly brings your head down over the edge of the table and turns your head to one side. If you have positional vertigo, your provider will see your eyes making fast, jerky movements called nystagmus. If no nystagmus is seen, your provider will repeat the test, this time turning your head to the opp osite side, to test the other inner ear. If you then have nystagmus and vertigo, the ear that is pointing toward the floor is the one causing the problem. The nystagmus and vertigo will slow down andstop after 15 to 20 seconds. If you [...] It can be very helpful. Your healthcare providerwill move your head into 4 positions. You [...] side, with your head angled upward about snf. (Imagine that you are looking atthe head of someone standing about 6 feet [...] of hearing or severe headache. Published by [employer]. This content is reviewed periodically and is subject to change as new health information becomes available. The information is intended to inform and educate and is not a replacement for medical evaluation, advice, diagnosis or treatment by a healthcare professional. Developed by [employer] Copyright 2007 [employer] and/or one of its subsidiaries. All Rights Reserved. Special Instructions: See information from pharmacy on Zofran and meclizine. Copyright [employer] Reference Systems 2007 Adult Health Advisor Copyright 2007 [employer] All rights reserved. - www.[employer] documented in this encounterMercy Health St. [facility]03-02-2023 History of Present illness Narrative* Talya Rodriguez PA-C - 01/01/2023 10:00 AM EST Meclizine 77 year old female with c/o here for BP check. Started yesterday evening 10p with sudden dizziness with a feeling like she is spinning but not theroom, No hearing loss. No falls No recent colds. Checked sugar, glu 145 Paroxysmal svt (supraventricular tachycardia) (hcc) (primary encounter diagnosis) Persistent atrial fibrillation (hcc) Atherosclerosis of coronary artery of curyung heart without angina pectoris, unspecified vessel or [...] Abs Lymph 1.00 - 4.00 k/uL 2.03 [place]% % 9.9 Abs [place]ow <0.87 k/uL 0.78 Eosin% % 1.8 Abs [...] percutaneous left heart catheterization 06/24/11 done [place] [facility] Malignant neoplasm of breast (female), unspecified site 1998 Breast cancer right OBESITY 12/16/2005 Osteoarthritis of right knee Osteopenia 05/21/2010 Paroxysmal SVT (supraventricular tachycardia) ([facility]) Dr Marcelo Pure hypercholesterolemia TUBERCULIN TEST [...] rectum repair COLON SURGERY HX COLONOSCOPY 2006 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 4 Each5 insulin glargine (LANTUS SOLOSTAR, BASAGLAR KWIKPEN) 100 [...] I48.19 3. Atherosclerosis of coronary artery of curyung heart without angina pectoris, unspecified vessel or [...] medications Talya Rodriguez PA-C documented in this encounterMercy Health St. [facility]01-26-2023 Miscellaneous Notes* Telephone Encounter - Lisa Barber RN - 11/27/2022 12:36 PM EST Pt called and is notified of providers message and instructions. Pt voices understanding. Pt schedules 12/25/22 with MS nurse. Lisa Barber RN * Telephone Encounter - Santo Love MD - 11/27/2022 12:20 PM EST Stop current verapamil. Change to 300 mg a day. Bp check in one month * Telephone Encounter - Franca Atwood LPN - 11/27/2022 8:50 AM EST Manual Readin/76 Pulse: 74 BP Kaitlin average: 164/71 P: 71 Repeat BP Check: [...] PCP. Franca Atwood LPN documented in this encounterMercy Health St. [facility]01-26-2023 History of Present illness Narrative* Franca Atwood LPN - 11/27/2022 8:48 AM EST Manual Readin/76 Pulse: 74 BP Kaitlin average: 164/71 P: 71 Repeat BP Check: [...] PCP. Franca Atwood LPN documented in this encounterMercy Health St. [facility]01-16-2023 Miscellaneous Notes* Telephone Encounter - Yas Liu MA - 11/17/2022 10:44 AM EST Patient has been identified by name and date of : Yes Requested Prescriptions Pending Prescriptions Disp Refills pravastatin (PRAVACHOL) 80 mg tablet 90 tablet 3 Sig: Take 1 tablet by mouth once daily. RX INSTRUCTIONS: Patient aware RX will be sent to pharmacy. No need to notify patient. Yas Liu MA Adan: 10/2022 Nov: 04/2023 Last refill: 11/2021 * Telephone Encounter - Genet Choi - 11/17/2022 10:37 AM EST Patient has been identified by name and [...] and advise. Genet Choi documented in this encounterMercy Health St. [facility]01-10-2023 Miscellaneous Notes* Telephone Encounter - Lisa Barber RN - 11/11/2022 12:57 PM EST Pt called and is notified of providers message and instructions. Pt voices understanding. She states her BP this morning was 151/65. Pt was set up with BP check with MS nurse on 11/20/22. Lisa Barber RN * Telephone Encounter - Santo Love MD - 11/11/2022 12:40 PM EST No although she was to do bp check already and has not done that. * Telephone Encounter - Phyllis Gusman LPN - 11/11/2022 10:49 AM EST Patient has been off the HCTZ for about 1 month and had repeat labs drawn on 11/06/22. Is she to resume HCTZ? documented in this encounterMercy Health St. [facility]12-02-2022 Miscellaneous Notes* Telephone Encounter - Leonela Beckman Ma - 10/03/2022 12:29 PM EST Patient was notified and verbalized understanding Leonela Beckman Ma * Telephone Encounter - Santo Love MD - 10/03/2022 12:19 PM EST Sugars slightly higher. Watch the diet. Rest of labs ok. Calcium is borderline. Can be due to her hctz Lets stop it. Recheck labs and bp in one month documented in this encounterMercy Health St. [facility]12-01-2022 Instructions* Patient Instructions* Santo Love MD - 10/02/2022 9:28 AM EST documented in this encounterMercy Health St. [facility]12-01-2022 History of Present illness Narrative* Santo Love MD - 10/02/2022 9:08 AM EST Patient presents with: Diabetes HPI: Patient presents [...] gi upset: Yes Still seeing Cardiology at [place]. No nitro. No unusual bleeding or bruising [...] percutaneous left heart catheterization 06/24/11 done at [facility] Malignant neoplasm of breast (female), unspecified site [...] past medical history, surgical history, family history andsocial history today. REVIEW OF SYSTEMS No bloody [...] ASSESSMENT/PLAN: 1. Atherosclerosis of coronary artery of curyung heart without angina pectoris, unspecified vessel or [...] C50.919 - call if an issues. 11. half-way current use of anticoagulant - ICD9: V58.61, [...] HEP C AB IA W/CONF SCRN Santo Love RTO in six months and prn. documented in this encounterMercy Health St. [facility]11-15-2022 Miscellaneous Notes* Telephone Encounter - Griselda Farley - 09/16/2022 1:00 PM EST Patient has been identified by name and date of : Yes Requested Prescriptions Pending Prescriptions Disp Refills hydroCHLOROthiazide (HYDRODIURIL, ESIDRIX) 12.5 mg capsule 90 capsule 1 Sig: Take 1 capsule by mouth once daily. RX INSTRUCTIONS: Patient aware RX will be sent to pharmacy. No need to notify patient. Griselda Farley documented in this encounterMercy Health St. [facility]09-16-2022 Miscellaneous Notes* Telephone Encounter - Lisa Barber RN - 07/18/2022 8:08 AM EDT Pt called and is notified of providers message. Pt voices understanding. Lisa Barber RN * Telephone Encounter - Lisa Barber RN - 07/17/2022 10:50 AM EDT Called and left a voicemail for the Patient to call back and ask for a nurse to receive the providers message. Lisa Barber RN * Telephone Encounter - Santo Love MD - 07/17/2022 9:53 AM EDT Bp is ok. * Telephone Encounter - Franca Angelic RODAS - 07/17/2022 9:29 AM EDT Manual Readin/70 Pulse: 75 BP Kaitlin average: 113/68 P: 74 Repeat BP Check: [...] PCP. Franca Atwood LPN documented in this encounterMercy Health St. [facility]09-15-2022 History of Present illness Narrative* Franca Atwood LPN - 07/17/2022 9:28 AM EDT Manual Readin/70 Pulse: 75 BP Kaitlin average: 113/68 P: 74 Repeat BP Check: [...] PCP. Franca Atwood LPN documented in this encounterMercy Health St. [facility]08-26-2022 Instructions* Patient Instructions* Talya Rodriguez PA-C - 06/27/2022 11:36 AM EDT Cut Lisinopril in half = 20mg daily instead of 40mg Push fluids, eat a little salt documented in this encounterMercy Health St. [facility]08-26-2022 History of Present illness Narrative* Talya Rodriguez PA-C - 06/27/2022 10:20 AM EDT Images from the original note were not included. 77 year old female with c/o here for follow up Doing well. Nonrheumatic mitral valve regurgitation (primary encounter diagnosis) Persistent atrial fibrillation (hcc) Paroxysmal svt (supraventricular tachycardia) (hcc) half-way current use of anticoagulant Atherosclerosis of coronary artery of curyung heart without angina pectoris, unspecified vessel or [...] was preserved with LVEF of 70% 05/11/[address] [facility] transthoracic echo: LV size plus LV [...] percutaneous left heart catheterization 06/24/11 done at [place] Malignant neoplasm of breast (female), unspecified site 1998 Breast cancer right OBESITY 12/16/2005 Osteoarthritis of right knee Osteopenia 05/21/2010 Paroxysmal SVT (supraventricular tachycardia) ([facility]) Dr Marcelo Pure hypercholesterolemia TUBERCULIN TEST [...] rectum repair COLON SURGERY HX COLONOSCOPY 2006 [place] COLONOSCOPY 09/12/2014 no polyps, repeat due 2018 [...] Knee Constipation Benign Neoplasm of Colon Diverticulitis half-way current use of anticoagulant Persistent Atrial Fibrillation [...] mg subcutaneously one time a week. 4 Each5 verapamil SR (CALAN SR, ISOPTIN SR) 240 [...] 424.0, ICD10: I34.0 (primary diagnosis) Follows with [facility], stable 2. Persistent atrial fibrillation (HCC) - ICD9: 427.31, ICD10: I48.19 Controlled rate. Low BP today without sx. - COMP METABOLIC PANEL - ECG COMPLETE 3. Paroxysmal SVT (supraventricular tachycardia) (HCC) - ICD9: 427.0, ICD10: I47.1 controlled 4. half-way current use of anticoagulant - ICD9: V58.61, ICD10: Z79.01 5. Atherosclerosis of coronary artery of curyung heart without angina pectoris, unspecified vessel or [...] PANEL Talya Rodriguez PA-C documented in this encounterMercy Health St. [facility]07-29-2022 Miscellaneous Notes* Letter - Mammography Coordinator - 05/30/2022 9:59 AM EDT May 30, 2022 PID: [id number] Kellie Dozier [address] [place] [address] Dear Ms. Dozier, We are pleased to [...] report will be kept on file at [facility] as part of your permanent medical record and are available for your continuing care. Thank you for allowing us to help in meeting your health care needs. Sincerely, Dr. Ramirez Interpreting Radiologist [facility] (Normal over 40) documented in this encounterMercy Health St. [facility]07-29-2022 History of Present illness Narrative* Alyx Abel RT(R) - 05/30/2022 9:50 AM EDT Radiology Service Progress Note PATIENT NAME: Kellie Dozier DATE OF SERVICE: May 30, 2022 TIME: 9:21 AM PATIENT IDENTITY VERIFICATION COMPLETED USING TWO (2) IDENTIFIERS: Name and Date of confirmedby patient verbally. FALL SCREENING: Has the patient [...] 30, 2022 9:21 AM documented in this encounterMercy Health St. [facility]07-06-2022 History of Present illness Narrative* RT Reta(R) - 05/07/2022 9:30 AM EDT Radiology Service Progress Note PATIENT NAME: Kellie Dozier DATE OF SERVICE: May 07, 2022 TIME: 9:31 AM PATIENT IDENTITY VERIFICATION COMPLETED USING TWO (2) IDENTIFIERS: Name and Date of confirmedby patient verbally. FALL SCREENING: Has the patient [...] 07, 2022 9:31 AM documented in this [facility]06-21-2022 Miscellaneous Notes* Telephone Encounter - Juliana Gaspar LPN - 04/22/2022 9:55 AM EDT Patient notified. Verbalized understanding. * Telephone Encounter - Santo Love MD - 04/22/2022 9:23 AM EDT ordered * Telephone Encounter - Nicole Arriaga RN - 04/22/2022 8:52 AM EDT Patient calls and is asking if provider can write an order for Mammogram. Please review and advise, Nicole Arriaga RN documented in this encounterMercy Health St. [facility]05-26-2022 Miscellaneous Notes* Telephone Encounter - SALMA Thomas - 03/27/2022 11:26 AM EDT Rambo now has received fax that states [employer] company did receive application. Rambo spoke with patient and she notes that company told her they were missing part of her portion of application. Rambo will refax forms to [employer] PAP for Eliquis. * Telephone Encounter - SALMA Thomas - 03/26/2022 3:42 PM EDT Rambo called [employer] to check and see if patient Eliquis application had been received. Rep states that no, it has not been received. Rambo will work on re-faxing forms. * Telephone Encounter - SALMA Thomas - 03/25/2022 12:13 PM EDT Patient called Rambo in regards to her prescription assistance for Eliquis. Rambo noted [employer] application had been sent to [facility] on 03/19/22 for Eliquis. Sw will check and make sure that it is being processed. Rambo noted that Dr. Love office received [employer] application approval for patient basaglar and trulicity. documented in this encounterMercy Health St. [facility]05-24-2022 Miscellaneous Notes* Telephone Encounter - Eli Lyons Ma - 03/25/2022 10:48 AM EDT Fax received from [facility]. Pt is approved for Trulicity and basaglar for 12 months. Eli Lyons Ma documented in this encounterMercy Health St. [facility]05-18-2022 Miscellaneous Notes* Telephone Encounter - Maria Isabel Troncoso LPN - 03/19/2022 12:17 PM EDT Faxed forms. Will return to . * Telephone Encounter - Maria Isabel Troncoso LPN - 03/19/2022 11:[address] Love's desk to sign. Clinical portion completed. * Telephone Encounter - SALMA Thomas - 03/19/2022 9:11 AM EDT [employer]-Eliquis and [employer]-Trulicity and Basaglar patient assistance forms. Rambo will take forms to Dr. Love office to complete prescriptions on forms and then fax forms to companies. [employer] fax#[phone] [employer] fax#[phone] documented in [address] encounterMercy Health St. [facility]04-26-2022 Miscellaneous Notes* Telephone Encounter - SALMA Thomas - 02/25/2022 9:11 AM EDT Patient called Rambo to request that Sw [facility]. Sw noted that she would patient the application forms. Patient reports that she will work on forms and send back to Dr. Kate burton for completion. documented in this encounterMercy Health St. [facility]04-14-2022 Miscellaneous Notes* Telephone Encounter - Racquel Haddad Pss - 02/13/2022 8:58 AM EDT .Patient has been identified by name and date of : Yes Pending Prescriptions Disp Refills LISINOPRIL 40 MG TABLET 90 tablet 3 Sig: Take 1 tablet by mouth once daily. SHERLY: No RX INSTRUCTIONS: Patient aware RX will be sent to pharmacy. No need to notify patient. Racquel Haddad Pss documented in this encounterMercy Health St. [facility]05-25-2018 History of Past illness Narrative* Problem [...] of this encounter (statuses as of 02/13/2022) [facility] [facility] History of Past illness Narrative* Problem [...] of this encounter (statuses as of 02/25/2022) [facility] History of Past illness Narrative* Problem [...] of this encounter (statuses as of 03/19/2022) [facility] of Past illness Narrative* Problem [...] of this encounter (statuses as of 03/25/2022) [facility] Past illness Narrative* Problem [...] of this encounter (statuses as of 03/27/2022) [facility] of Past illness Narrative* Problem [...] of this encounter (statuses as of 04/22/2022) [facility] of Past illness Narrative* Problem [...] of this encounter (statuses as of 05/08/2022) [facility] illness Narrative* Problem [...] of this encounter (statuses as of 05/31/2022) [facility] illness Narrative* Problem [...] of this encounter (statuses as of 06/03/2022) [facility] Narrative* Problem [...] of this encounter (statuses as of 06/27/2022) [facility] Narrative* Problem [...] of this encounter (statuses as of 07/17/2022) [facility] of Past illness Narrative* Problem [...] of this encounter (statuses as of 07/18/2022) [facility] Past illness Narrative* Problem [...] of this encounter (statuses as of 09/16/2022) [facility] illness Narrative* Problem [...] of this encounter (statuses as of 10/02/2022) [facility] illness Narrative* Problem [...] of this encounter (statuses as of 10/03/2022) [facility] of Past illness Narrative* Problem Noted Date Resolved Date Tendonitis, Achilles, left 03/26/201806/04 Tendonitis, Achilles, right 03/26/201812/2017 Diverticulitis 10/24/2011 10/02/2022 Unspecified constipation 10/17/2011 019 [...] of this encounter (statuses as of 11/17/2022) [facility] History of Past illness Narrative* Problem Noted Date Resolved Date Tendonitis, Achilles, left 03/26/201806/04 Tendonitis, Achilles, right 03/26/201812/2017 Diverticulitis 10/24/2011 10/02/2022 Unspecified constipation 10/17/2011 019 [...] of this encounter (statuses as of 11/27/2022) [facility] of Past illness Narrative* Problem [...] of this encounter (statuses as of 12/26/2022) [facility] illness Narrative* Problem [...] of this encounter (statuses as of 01/01/2023) [facility] of Past illness Narrative* Problem Noted Date Resolved Date Tendonitis, Achilles, left 03/26/201806/04 Tendonitis, Achilles, right 03/26/2018 08/12/2017 Diverticulitis 10/24/2011 10/02/2022 Unspecified constipation 10/17/2011 019 [...] of this encounter (statuses as of 01/16/2023) [facility] of Past illness Narrative* Problem [...] of this encounter (statuses as of 01/28/2023) [facility] of Past illness Narrative* Problem Noted Date Resolved Date Tendonitis, Achilles, left 03/26/201806/04 Tendonitis, Achilles, right 03/26/201812/2017 Diverticulitis 10/24/2011 10/02/2022 Unspecified constipation 10/17/2011 019 [...] of this encounter (statuses as of 01/29/2023) [facility] of Past illness Narrative* Problem [...] of this encounter (statuses as of 03/06/2023) [facility] illness Narrative* Problem [...] of this encounter (statuses as of 05/07/2023) [facility] Narrative* Problem [...] of this encounter (statuses as of 05/08/2023) [facility] Narrative* Problem [...] of this encounter (statuses as of 06/29/2023) [facility] of Past illness Narrative* Problem [...] of this encounter (statuses as of 07/22/2023) [facility] of Past illness Narrative* Problem [...] of this encounter (statuses as of 09/06/2023) [facility] illness Narrative* Problem [...] of this encounter (statuses as of 09/30/2023) [facility] of Past illness Narrative* Problem [...] as of this encounter (statuses as of 12/15/2023) [facility] Narrative* Problem [...] as of this encounter (statuses as of 12/24/2023) [facility] illness Narrative* Problem [...] as of this encounter (statuses as of 12/24/2023) [facility] illness Narrative* Problem [...] as of this encounter (statuses as of 01/06/2024) [facility] illness Narrative* Problem [...] as of this encounter (statuses as of 01/07/2024) [facility] Past illness Narrative* Problem [...] as of this encounter (statuses as of 01/13/2024) [facility] illness Narrative* Problem [...] as of this encounter (statuses as of 01/14/2024) [facility] of Past illness Narrative* Problem [...] as of this encounter (statuses as of 02/03/2024) [facility] of Past illness Narrative* Problem [...] as of this encounter (statuses as of 02/08/2024) [facility] History of Past illness Narrative* Problem [...] as of this encounter (statuses as of 02/19/2024) [facility] of Past illness Narrative* Problem [...] as of this encounter (statuses as of 02/05/2024) [facility] Panchito Zavaleta [facility] December 15, 2023 7:13am Note Date/Time December 15, 2023 5:53am [facility] [address] [place] [address] Emergency Department Summary 12/15/23 MR#: [id number] Acct: [id number] Name: KELLIE DOZIER MARIETTA Rep #:[id number] : 1945 78 From: Panchito Zavaleta MD PCP: Dr. Santo Love MD Status:REG E R Location: ED HPI HPI - GI History of Present Illness Chief Complaint: Nausea/Vomiting/Diarrhea Informant: patient, family and EMS Narrative Narrative: Patient presents by EMS for 6-8 hours or so of nausea/vomiting with hematemesis. She states it is dark red, almost black emesis. No bright red blood. She was discharged from the hospital a day or so prior to the onset of this, she was here for upper GI bleeding, had an EGD that showed duodenal ulcer. She was off of her apixaban while in the hospital but told it was okay to restart it for paroxysmal atrial fibrillation when she went home; her last dose was just prior to the onset of this bleeding last night. She states she has felt lightheaded. She denies any abdominal pain. She has been having melena, but that started while she was in the hospital. She denies passing any bright red blood or maroon blood per rectum. No chest pain or dyspnea. No syncopal episodes. EMS gave her a sublingual Zofran but she vomited it up. 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 Essential hypertension GERD (gastroesophageal reflux disease) Liver mass Malignant neoplasm of right breast Old myocardial infarction Paroxysmal atrial fibrillation 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 tachycardia Presence of stent in coronary artery (~05/23/09) Pure hypercholesterolemia Type 2 diabetes mellitus Home Medications apixaban 5 mg tablet (Eliquis) 5 mg PO BID a.fib 09/06/19 [History Last Taken 02/12/21] cyanocobalamin (vitamin B-12) 1,000 mcg tablet 1,000 mcg PO DAILY 09/06/19 [History Last Taken 02/12/21] pravastatin 80 mg tablet 80 mg PO QHS 09/06/19 [History Last Taken 02/11/21] pyridoxine (vitamin B6) 100 mg tablet 100 mg PO DAILY 09/06/19 [History Last Taken 02/12/21] nitroglycerin 0.4 mg sublingual tablet 0.4 mg sublingual Q5-15M PRN chest pain #90 tabs 09/08/19 [Rx Last Taken Unknown] insulin glargine U-300 conc 300 unit/mL (1.5 mL) subcutaneous pen 20 unit subcutQHS 08/14/21 [History Last Taken Unknown] dulaglutide 4.5 mg/0.5 mL subcutaneous pen injector (Trulicity) 4.5 mg subcut MO08/06/23 [History Last Taken 12/07/23] verapamil 300 mg capsule 24hr pellet CT,ext.release 300 mg PO QHS 08/06/23 [History Last Taken Unknown] brimonidine 0.2 % eye drops 1 drp ophthalmic (eye) BID 12/11/23 [History Last Taken Unknown] calcium carbonate 600 mg-vitamin D3 5 mcg (200 unit) tablet (Calcium 600 + D(3))1 tab PO DAILY 12/11/23 [History Last Taken Unknown] lisinopril 40 mg tablet 20 mg PO DAILY HIG BLOOD PRESSURE 12/11/23 [History Last Taken Unknown] pantoprazole 40 mg tablet,delayed release 40 mg PO BID 30 days #60 tabs 12/13/23[Rx Last Taken Unknown] Allergy/AdvReac Type Severity Reaction Status Date / Time alendronate sodium AdvReac Severe myalgias Verified 12/15/23 05:40 [From Fosamax] amoxicillin [Amoxicillin] AdvReac Nausea/Vom/ Verified 12/15/23 05:40 Diarrhea metformin AdvReac Nausea/Vom/ Verified 12/15/23 05:40 Diarrhea shellfish derived AdvReac Nausea/Vom/ Verified 12/15/23 05:40 Diarrhea Family History Mother Hypertension Diabetes CVA (cerebral vascular accident) CAD (coronary artery disease) Father History of DVT (deep vein thrombosis) Surgical History History of eyelid surgery (05/28/23) History of total abdominal hysterectomy Presence of coronary angioplasty implant and graft (~05/23/09) S/P lumpectomy, right breast Social History household members: family housing: house Smoking Status: Never smoker alcohol intake: never substance use type: does not use caffeine: Yes Type: coffee Number of servings: 2 ROS ROS ED Constitutional Constitutional ED: Reports fatigue and weakness; Denies chills or fever(s) Eyes Eyes: Denies change in vision or diplopia ENT ENT ED: Denies rhinorrhea or sore throat Cardiovascular Cardiovascular: Denies chest pain or palpitations Respiratory/Chest Respiratory/Chest: Denies cough or dyspnea Gastrointestinal Gastrointestinal: Reports as per HPI, hematemesis, melena, nausea and vomiting; Denies abdominal pain Genitourinary Genitourinary ED: Denies dysuria or hematuria Musculoskeletal Musculoskeletal: Denies back pain or neck pain Integumentary Denies abscess or rash Neurologic Neurologic: Denies headache(s), paresthesias or weakness Psychiatric Psychiatric: Denies depression or suicidal thoughts EXAM Physical Exam Const Vital Signs: 12/15/23 05:40 Temperature 97.2 F L Temperature Source Temporal Pulse Rate 144 H Respiratory Rate 16 Blood Pressure 134/64 H Blood Pressure Mean 87 Pulse Ox 94 Oxygen Delivery Method Room Air Positive well nourished and well developed General Appearance ED: well developed and NAD HEENT Reports moist mucous membranes normocephalic and atraumatic Eyes PERRL and EOMs intact bilaterally Neck full ROM and supple Resp normal respiratory effort and clear to auscultation bilaterally Cardio regular rate, regular rhythm and no murmurs Rate: tachycardic GI non-tender and non-distended Auscultation: normoactive bowel sounds Palpation: soft Back/Spine no CVA tenderness General Back: other FROM Extremity normal to inspection General Extremety ED: Negative for edema, pulses abnormal or tenderness General Extremity: Negative for edema or pulses abnormal Neuro oriented x3, CN's II-XII intact bilaterally and no sensory deficits noted Sensorium / Orientation: awake and alert Motor Exam: strength 5/5 throughout Psych mental status grossly normal and thought process normal Skin no rashes or lesions noted and no wounds MDM MDM MDM Narrative Medical decision making narrative: Patient was given IV fluids and Zofran which did help her nausea, her blood pressure remained stable, her heart rate decreased although still mildly tachycardic, and she is clinically stable. Her hemoglobin has dropped significantly now down to 6.6, and given that she is still vomiting dark blood my suspicion is that she may still be having active upper GI bleeding. Her BUN is 41 with a normal creatinine, consistent with this. I consented her for blood, her daughter was present during that discussion, all questions answered at the bedside and she consents for blood, I am ordering her 2 units given the fact that she may still be bleeding and we will start her back on a pantoprazoledrip as well. History & Record Review Additional record(s) reviewed:: Prior inpatient record and Prior ED visit Lab Data Attestation: I reviewed the patient's lab results. Labs: Laboratory Results - last 24 hr 12/15/23 12/15/23 05:30 05:44 WBC 14.0 H RBC 2.19 L Hgb 6.6 L Hct 20.5 L MCV 93.6 MCH 30.1 MCHC 32.2 RDW Std Deviation 46.3 H RDW Coeff of Emperatriz 13.9 Plt Count 239 MPV 10.7 Immature Gran % (Auto) 1.400 H Neut % (Auto) 80.0 H Lymph % (Auto) 12.6 L [place] % (Auto) 5.6 Eos % (Auto) 0.0 Baso % (Auto) 0.4 Absolute Neuts (auto) 11.2 H Absolute Lymphs (auto) 1.77 Nucleated RBC % 0 Sodium 141 Potassium 4.5 Chloride 109 H Carbon Dioxide 23.0 Anion Gap 9 BUN 41 H Creatinine 0.84 Estim Creat Clear Calc 51.80 Est GFR (MDRD) Af Amer 84 Est GFR (MDRD) Non-Af 70 BUN/Creatinine Ratio 49.0 H Glucose 410 H Calcium 8.8 POC Glucose 352 H Management Discussion w/another healthcare provider: Hospitalist Critical Care Time Critical Care Time: Yes Critical care time (excluding procedures): 30-74 minutes (36 min), Including time spent:, Discussing w/Patient &/or Family/Cafe Cook, Discussing w/Consultants, Arranging Admission or Transfer and Performing Direct Patient Care at Bedside Discharge Plan Dx/Rx/DC Orders Clinical Impression: Acute blood loss anemia, UGIB (upper gastrointestinal bleed), On apixaban therapy, Pyloric channel ulcer Disposition Disposition: [facility] What to do if you have Problems For any increased pain, shortness of breath, bleeding, nausea or vomiting, chestpain, or any unexpected problems, contact your Primary Care Provider. Call [facility] ([phone]) or report to the closest Emergency Room. Call 911 if necessary. 12/15/23712 <Electronically signed by Panchito Zavaleta MD> Cosigner Signature (if applicable): CC: Dr. Santo Love MD ~ Signed [facility] Work Phone: Evaluation note* Diagnosis Essential hypertension Unspecified essential hypertension [facility] Diagnosis Screening breast examination- Primary Breast screening, unspecified [facility] Diagnosis Postmenopausal Asymptomatic postmenopausal status (age-related) (natural) [facility] Diagnosis Screening breast examination Breast screening, unspecified 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 note* Diagnosis Atherosclerosis of coronary artery of [place] heart without angina pectoris, unspecified vessel or [...] unspecified laterality, unspecified site of breast (HCC) half-way current use of anticoagulant Long-term (current) use of 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 Osteopenia, unspecified location Hypercalcemia Need for hepatitis C screening test Special screening examination for other specified viral diseases [facility] Diagnosis Hypercalcemia- Primary [facility] Diagnosis Essential hypertension- Primary Unspecified essential hypertension documented in this encounter [facility] note* Diagnosis Paroxysmal SVT (supraventricular tachycardia) (HCC)- Primary 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 tachycardia Persistent atrial fibrillation (HCC) Atrial fibrillation Atherosclerosis of coronary artery of [place] heart without angina pectoris, unspecified vessel or lesion type Essential hypertension Unspecified essential hypertension Mixed hyperlipidemia Nonrheumatic mitral valve regurgitation BPPV (benign paroxysmal positional vertigo), unspecified laterality Type 2 diabetes mellitus without complication, without long-term current use of insulin (HCC) documented in this encounter [facility] note* Diagnosis Vertigo- Primary Dizziness and giddiness Essential hypertension Unspecified essential hypertension Atherosclerosis of coronary artery of [place] heart without angina pectoris, unspecified vessel or lesion type Persistent atrial fibrillation (HCC) Atrial fibrillation Paroxysmal SVT (supraventricular tachycardia) (HCC) 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 tachycardia Type 2 diabetes mellitus without complication, without long-term current use of insulin (HCC) Malignant neoplasm of female breast, unspecified estrogen receptor status, unspecified laterality, unspecified site of breast (HCC) Osteopenia, unspecified location [facility]* Diagnosis Essential hypertension Unspecified essential hypertension documented in this encounter 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 note* Diagnosis Type 2 diabetes mellitus without complication, without long-term current use of insulin (HCC)- Primary documented in this encounter [facility] note* Diagnosis Type 2 diabetes mellitus without complication, without long-term current use of insulin (HCC) documented in this encounter [facility] note* Diagnosis Malignant neoplasm of female breast, unspecified estrogen receptor status, unspecified laterality, unspecified site of breast (HCC) documented in this encounter [facility] note* Diagnosis Essential hypertension Unspecified essential hypertension documented in this encounter [facility] note* Diagnosis Onset Date Resolution Status Acute blood loss anemia acut e Blunt traumatic injury of th lphpy-etczcxjr-kqadyt region acute Contusion of rib on right side acute On apixaban therapy acute UGIB (upper gastrointestinal bleed) acute Paroxysmal atrial fibrillation chronic [facility] Work Phone: Evaluation note* Diagnosis Onset Date Resolution Status Acute blood loss anemia acut e Blunt traumatic injury of th ufzcg-[id number]-jtvnxa region acute Contusion of rib on right side acute On apixaban therapy acute UGIB (upper gastrointestinal bleed) acute Paroxysmal atrial fibrillation chronic Acute blood loss anemia acut e On apixaban therapy acute Pyloric channel ulcer acute UGIB (upper gastrointestinal bleed) [facility] Work Phone: Evaluation note* Diagnosis Onset Date Resolution Status Acute blood loss anemia acut e Blunt traumatic injury of th ehhyx-plnhksjb-dtrhxt region resolved Contusion of rib on right side resolved UGIB (upper gastrointestinal bleed) resolved Acute blood loss anemia acut e Pyloric channel ulcer acute UGIB (upper gastrointestinal bleed) resolved [facility] Work Phone: Evaluation note* Diagnosis Lung nodules- Primary Other nonspecific abnormal finding of lung field Malignant neoplasm of female breast, unspecified estrogen receptor status, unspecified laterality, unspecified site of breast (HCC) [facility] Diagnosis Duodenal ulcer- Primary Duodenal ulcer, unspecified as acute or chronic, without hemorrhage, perforation, or obstruction Gastrointestinal hemorrhage, unspecified gastrointestinal hemorrhage type Persistent atrial fibrillation (HCC) Atrial fibrillation Type 2 diabetes mellitus without complication, without long-term current use of insulin (HCC) Mixed hyperlipidemia Urinary retention Retention of urine, unspecified Hydroureter Lung nodule Solitary pulmonary nodule [facility] Diagnosis Iron deficiency anemia due to chronic blood loss- Primary Iron deficiency anemia secondary to blood loss (chronic) [facility] Diagnosis Lung nodules Other nonspecific abnormal finding of lung field Malignant neoplasm of female breast, unspecified estrogen receptor status, unspecified laterality, unspecified site of breast (HCC) [facility]* Diagnosis Lung nodule- Primary Solitary pulmonary nodule [facility] Diagnosis Onset Date Resolution Status Acute blood loss anemia reso lved Blunt traumatic injury of th wiqsh-ctaxbvpa-bueprb region resolved Contusion of rib on right side resolved UGIB (upper gastrointestinal bleed) resolved Pyloric channel ulcer acute Acute blood loss anemia reso lved UGIB (upper gastrointestinal bleed) resolved Gastric ulcer chronic GIB (gastrointestinal bleeding) resolved [facility] Work Phone: Evaluation note* Diagnosis Bilateral hydronephrosis- Primary Hydronephrosis Hydroureter Screening for genitourinary condition Screening for other and unspecified genitourinary condition [facility] Diagnosis Type 2 diabetes mellitus without complication, without long-term current use of insulin (HCC)- Primary Iron deficiency anemia due to chronic blood loss Iron deficiency anemia secondary to blood loss (chronic) Pulmonary nodules Other nonspecific abnormal finding of lung field [facility] Diagnosis Bilateral hydronephrosis Hydronephrosis Hydroureter 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 Diagnosis Essential hypertension- Primary Unspecified essential hypertension [facility] Diagnosis Essential hypertension- Primary Unspecified essential hypertension Mixed hyperlipidemia Persistent atrial fibrillation (HCC) Atrial fibrillation Lung nodule Solitary pulmonary nodule Type 2 diabetes mellitus without complication, without long-term current use of insulin (HCC) History of breast cancer Personal history of malignant neoplasm of breast Osteopenia, unspecified location Granulomatous disease (HCC) Functional disorders of polymorphonuclear neutrophils History of GI bleed Personal history of other diseases of digestive system Decreased iron stores Other abnormal blood chemistry Hypercalcemia Encounter for screening mammogram for malignant neoplasm of breast Other screening mammogram [facility] Diagnosis Type 2 diabetes mellitus without complication, without long-term current use of insulin (HCC) [facility] Diagnosis Type 2 diabetes mellitus without complication, without long-term current use of insulin (HCC) [facility] Diagnosis Essential hypertension- Primary Unspecified essential hypertension Type 2 diabetes mellitus without complication, without long-term current use of insulin (HCC) [facility] Diagnosis Essential hypertension- Primary Unspecified essential hypertension Type 2 diabetes mellitus without complication, without long-term current use of insulin (HCC) Atherosclerosis of curyung coronary artery of curyung heart without angina pectoris [facility]* Diagnosis History of breast cancer Personal history of malignant neoplasm of breast Encounter for screening mammogram for malignant neoplasm of breast Other screening mammogram [facility] Diagnosis Essential hypertension- Primary Unspecified essential hypertension Mixed hyperlipidemia Atherosclerosis of coronary artery of curyung heart without angina pectoris, unspecified vessel or lesion type Persistent atrial fibrillation (HCC) Atrial fibrillation Lung nodule Solitary pulmonary nodule 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 Gastroesophageal reflux disease without esophagitis Esophageal reflux History of GI bleed Personal history of other diseases of digestive system Type 2 diabetes mellitus without complication, without long-term current use of insulin (HCC) Iron deficiency anemia due to chronic blood loss Iron deficiency anemia secondary to blood loss (chronic) History of breast cancer Personal history of malignant neoplasm of breast Osteopenia, unspecified location Low serum vitamin B12 [facility] Diagnosis Pulmonary nodules Other nonspecific abnormal finding of lung field [facility] Diagnosis Essential hypertension- Primary Unspecified essential hypertension Mixed hyperlipidemia Paroxysmal SVT (supraventricular tachycardia) (HCC) 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 tachycardia Persistent atrial fibrillation (HCC) Atrial fibrillation Type 2 diabetes mellitus without complication, without long-term current use of insulin (HCC) Lung nodule Solitary pulmonary nodule 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 Gastroesophageal reflux disease without esophagitis Esophageal reflux Granulomatous disease (HCC) Functional disorders of polymorphonuclear neutrophils Low serum vitamin B12 [facility] Diagnosis Lung nodules- Primary Other nonspecific abnormal finding of lung field 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 Granulomatous disease (HCC) Functional disorders of polymorphonuclear neutrophils History of breast cancer Personal history of malignant neoplasm of breast [facility] Diagnosis Mixed hyperlipidemia [facility] Diagnosis Essential hypertension- Primary Unspecified essential hypertension Type 2 diabetes mellitus without complication, without long-term current use of insulin (HCC) Impacted cerumen of left ear Impacted cerumen [facility] Diagnosis Elevated alkaline phosphatase level- Primary Other nonspecific abnormal serum enzyme levels [facility] Diagnosis Elevated alkaline phosphatase level Other nonspecific abnormal serum enzyme levels [facility] Diagnosis Type 2 diabetes mellitus without complication, with long-term current use of insulin (HCC)- Primary Essential (primary) hypertension Unspecified essential hypertension Nonalcoholic fatty liver disease Other chronic nonalcoholic liver disease [facility]* Diagnosis Type 2 diabetes mellitus without complication, without long-term current use of insulin (HCC) [facility]* Diagnosis Type 2 diabetes mellitus without complication, without long-term current use of insulin (HCC) [facility] Diagnosis Essential (primary) hypertension Unspecified essential hypertension Type 2 diabetes mellitus without complication, with long-term current use of insulin (HCC) [facility]* Diagnosis Screening for colon cancer- Primary Special screening for malignant neoplasms, colon [facility] Diagnosis Essential hypertension- Primary Unspecified essential hypertension Type 2 diabetes mellitus without complication, with long-term current use of insulin (HCC) Mixed hyperlipidemia [facility] Diagnosis Type 2 diabetes mellitus without complication, with long-term current use of insulin (HCC)- Primary [facility] Diagnosis Screen for colon cancer- Primary Special screening for malignant neoplasms, colon History of colon polyps Personal history of colonic polyps [facility] Diagnosis Screening for colon cancer Special screening for malignant neoplasms, colon [facility] Diagnosis Mass of cecum- Primary Unspecified disorder of intestine [facility] Diagnosis Essential hypertension- Primary Unspecified essential hypertension [facility] Diagnosis Microalbuminuria- Primary Proteinuria Elevated alkaline phosphatase level Other nonspecific abnormal serum enzyme levels [facility]* Diagnosis Type 2 diabetes mellitus without complication, without long-term current use of insulin (HCC) [facility] Diagnosis Encounter for screening mammogram for malignant neoplasm of breast- Primary Other screening mammogram [facility] Diagnosis Encounter for screening mammogram for malignant neoplasm of breast Other screening mammogram [facility] Diagnosis Rectal bleeding- Primary Hemorrhage of rectum and anus documented [facility] Author Cullen Ferrer [facility] February 04, 2024 6:47am Note Date/Time February 04, 2024 6:47 am [facility] Records Department [address] [place] [id number] History & Physical Exam 02/04/24 0647 MR#: [id number] Acct: [id number] Name: KELLIE DOZIER MARIETTA Rep #:[id number] : 1945 78 From: Cullen Ferrer DO PCP: Dr. Santo Love MD Status:REG S [place] Location: [place] [address] History and Physical Date of Admission: 02/04/24 KELLIE DOZIER, is a 78 F who presents to the office today for *[facility] hospitalization 2.9.24-2.11.24 for management of UGIB with anemia with use of Eliquis for A-fib. ? CT abd/pel IV only 12.11.23 fluid filled small bowel loops, ?enteritis; focal stranding of RLQ from cecum. ? EGD 12.12.23 oozing gastric ulcer, epinephrine/hemospray x5, heater probe; bleeding duodenal AVM. No specimens [facility] hospitalization 12.15.23-12.22.23 for management of GIB with use of Eliquis for A-fib. ? EGD 12.15.23 one oozing gastric ulcer, epinephrine, heater probe, one clip placed. No specimens ? CTA 12.16.23 metallic foreign body in stomach. No sign of GIB. OV 01.18.24 reports she is doing well at this time. Denies difficulty with GIB. ROS Const Constitutional: No anorexia, fatigue, fever(s), weight change or sleep problems Eyes Eyes: No change in vision ENT ENT: No abnormal hearing, difficulty swallowing, mouth lesions, tongue swelling or throat swelling Resp Respiratory: No cough or shortness of breath Cardio Cardiology: No chest pain at rest, chest pain with exertion, shortness of breathor dyspnea on exertion Gastro GI: No difficulty swallowing Genitourinary-Female: No difficulty urinating or burning urination Musc Musculoskeletal: No joint pain, joint swelling, muscle weakness or decreased muscle mass Skin Skin: No hair loss in leg, yellowing of the eye, itchy eyes, rash, skin ulcer orskin swelling Neuro Neurology: No abnormal hearing, abnormal movements, confusion, unsteady gait/balance or memory loss Psych Psychiatric: No anxiety, No confusion and No memory loss Endo Endocrine: No fatigue or weight change Aller/Imm Allergy/Immunologic: No itchy eyes, throat swelling or tongue swelling Daniel/Lymp Hematologic/Lymphatic: No easy bleeding, easy bruising or enlarged lymph nodes Exam Const General: cooperative and comfortable Nutritional Appearance: average body habitus and well nourished HENMT Head: normal to inspection Ears: hearing grossly normal bilaterally Nose: external nose normal Face and sinus: normal facial exam Mouth: oral mucosae normal Throat: posterior oropharynx normal Eyes General: appearance normal, both eyes and all related structures Neck Neck: normal visual inspection Chest Chest palpation & inspection: normal inspection of the chest and normal palpation of entire chest wall Resp Effort & Inspection: normal respiratory effort Auscultation: Bilateral: Clear to Auscultation Cardio Palpation: normal PMI Rate: regular rate Rhythm: regular rhythm GI Inspection: normal to inspection Auscultation: normal bowel sounds Percussion: normal to percussion Palpation: no hepatosplenomegaly Skin General: no rashes or lesions noted Neuro General: patient alert Extrem General: normal to inspection Psych Affect: normal affect Quality Reporting Tobacco Screening ([facility] 138) Smoking Status: Never smoker Assessment and Plan Assessment and Plan (1) GIB (gastrointestinal bleeding): Status: Resolved (2) Gastric ulcer: Status: Chronic Plan: 78 F who presented to [facility] ED on morning of 12/15/2023 withrecurrent upper GI bleed. Patient was recently hospitalized at [facility] from 12/11 to 12/13 for an upper GI bleed with acute blood loss anemia. -EGD 12/12 showed a duodenal ulcer that was treated. Patient's hemoglobin level remained stable on 12/13 -Decision was made to restart patient's home Eliquis 5 mg twice daily that she was on for A-fib. Patient stated that she began having nausea with coffee-ground emesis about 6 to 8 hours prior to admission. She denied any bright red blood hematemesis. - She did report melena, which had been present for her since her recent hospitalization, but she denied passing any bright red blood or maroon-colored stool. - She was sent back to the ED and was found to have hemoglobin of 6.6 in the ED,down from 9.3 on 12/13. Hospital Course: 1. Recurrent upper GI bleed with coffee-ground emesis, acute blood loss anemia -EGD on 12/[address] Ferrer showed a duodenal ulcer that was treated. Hemoglobin was stable at 9.3 on discharge on 12/13. Presume that recurrent GI bleed was due to resumption of home Eliquis. Presented with recurrent nausea/vomiting and coffee-ground emesis, hemoglobin 6.6 on 12/15. ? Hemoglobin dropped again to 6.8, will repeat a unit of blood, no obvious signsof bleeding on the CTA of the abdomen pelvis yesterday though did show a dilatedbladder and hydronephrosis. - Repeat EGD had shown that the previous gastric ulcer had opened back up and was treated with clipping and cauterization -She has been on iron therapy and had her hemoglobin checked about a week ago. She does not know what her hemoglobin is at this time. She is on PPI therapy. She remains on Eliquis 5 mg twice a day. Recommendation: Repeat EGD to make sure that the ulcer is completely healed -Recheck an H&H today. -After EGD will determine how long she needs to be on PPI therapy I have examined the patient and the H&P has been reviewed. There are no clinicalchanges since date of exam. 02/04/24 0622 <Electronically signed by Cullen Ferrer DO> Cosigner Signature (if applicable): CC: Dr. Santo Love MD; Cullen Ferrer DO~ Signed [facility] Work Phone: Reason for referral (narrative)* Diagnostic Procedure Only (Routine) - Authorized Specialty Diagnoses / Procedures Referred By Elia villegas Referred To Contact [facility] Diagnoses Screening breast examination Procedures GENEVA SCREENING SCREENING MAMMOGRAPHY BI 2-VIEW BREAST INC Santo Moss MD [address] [place] [address] [facility] [address] [address] Referral ID Status Reason Start Date Expiration Date Visits Requested Visits Authorized [id number] Authorized Auto-Generat ed Referral 04/22/2022 05/22/2023 1 1 [facility] for referral (narrative)* Diagnostic Procedure Only (Routine) - Closed Specialty Diagnoses / Procedures Referred By Elia villegas Referred To Contact [facility] Diagnoses Screening breast examination Procedures GENEVA SCREENING SCREENING MAMMOGRAPHY BI 2-VIEW BREAST INC Santo Moss MD [address] [place] [address] [facility] [address] [place] [address] Referral ID Status Reason Start Date Expiration Date V isits Requested Visits Authorized [id number] Closed Auto-Generate d Referral 04/22/2022 05/22/2023 1 1 [facility] for referral (narrative)* Outpatient Procedure (Routine) - Authorized Specialty Diagnoses / Procedures Referred By Contac t Referred To [facility] Diagnoses Persistent atrial fibrillation (HCC) Other specified hypotension Procedures ECG COMPLETE ECG ROUTINE ECG W/LEAST 12 LDS W/I&R Talya Rodriguez PA-C [address] [place] [address] [facility] [address] [place] [address] Referral ID Status Reason Start Date Expiration Date Visits Requested Visits Authorized [id number] Authorized Auto-Generat ed Referral 06/27/2022 06/27/2023 1 1 [facility] for referral (narrative)* Diagnostic Procedure Only (Routine) - Authorized Specialty Diagnoses / Procedures Referred By Contac t Referred To Contact [facility] Diagnoses Malignant neoplasm of female breast, unspecified estrogen receptor status, unspecified laterality, unspecified site of breast (HCC) Procedures GENEVA SCREENING SCREENING MAMMOGRAPHY BI 2-VIEW BREAST INC Santo Moss MD [address] [place] [address] [facility] [address] [place] [address] Referral ID Status Reason Start Date Expiration Date Visits Requested Visits Authorized [id number] Authorized Auto-Generat ed Referral 05/07/2023 06/05/2024 1 1 [facility] for referral (narrative)* Diagnostic Procedure Only (Routine) - Closed Specialty Diagnoses / Procedures Referred By Contac t Referred To Contact [facility] Diagnoses Malignant neoplasm of female breast, unspecified estrogen receptor status, unspecified laterality, unspecified site of breast (HCC) Procedures GENEVA SCREENING SCREENING MAMMOGRAPHY BI 2-VIEW BREAST INC Santo Moss MD [address] [place] [address] [facility] [address] [place] [address] Referral ID Status Reason Start Date Expiration Date V isits Requested Visits Authorized [id number] Closed Auto-Generate d Referral 05/07/2023 06/05/2024 1 1 [facility] for referral (narrative)* Diagnostic Procedure Only (Routine) - Pending Review Specialty Diagnoses / Procedures Referred By Elia villegas Referred To Contact [facility] Diagnoses Bilateral hydronephrosis Hydroureter Procedures US KIDNEY/BLADDER US RETROPERITONEAL REAL TIME W/IMAGE COMPLETE Zac Duncan PA-C [address] [place] [address] [facility] Referral ID Status Reason Start Date Expiration Date Visits Requested Visits Authorized [id number] Pending Review Auto-Generat ed Referral 02/02/2024 03/03/2025 1 1 [facility] for referral (narrative)* Diagnostic Procedure Only (Routine) - Pending Review Specialty Diagnoses / Procedures Referred By Elia villegas Referred To Contact [facility] Diagnoses History of breast cancer Encounter for screening mammogram for malignant neoplasm of breast Procedures GENEVA SCREENING SCREENING MAMMOGRAPHY BI 2-VIEW BREAST INC Santo Moss MD [address] [place] [address] [facility] [address] [place] [address] Referral ID Status Reason Start Date Expiration Date Visits Requested Visits Authorized [id number] Pending Review Auto-Generat ed Referral 04/12/2024 05/12/2025 1 1 [facility] for visit Narrative* Diagnostic Procedure Only (Routine) - Closed Specialty Diagnoses / Procedures Referred By Elia villegas Referred To Contact [facility] Diagnoses Screening breast examination Procedures GENEVA SCREENING SCREENING MAMMOGRAPHY BI 2-VIEW BREAST INC Santo Moss MD [facility] [place] [address] [facility] [address] [facility] [place] [address] Referral ID Status Reason Start Date Expiration Date V isits Requested Visits Authorized [id number] Closed Auto-Generate d Referral 04/22/2022 05/22/2023 1 1 [facility] for visit Narrative* Diagnostic Procedure Only (Routine) - Closed Specialty Diagnoses / Procedures Referred By Contac t Referred To Contact [facility] Diagnoses Malignant neoplasm of female breast, unspecified estrogen receptor status, unspecified laterality, unspecified site of breast (HCC) Procedures GENEVA SCREENING SCREENING MAMMOGRAPHY BI 2-VIEW BREAST INC Santo Moss MD [address] [place] [address] [facility] [address] [place] [address] Referral ID Status Reason Start Date Expiration Date V isits Requested Visits Authorized [id number] Closed Auto-Generate d Referral 05/07/2023 06/05/2024 1 1 [facility] for visit Narrative* Diagnostic Procedure Only (Routine) - Closed Specialty Diagnoses / Procedures Referred By Contac t Referred To Contact [facility] Diagnoses History of breast cancer Encounter for screening mammogram for malignant neoplasm of breast Procedures GENEVA SCREENING SCREENING MAMMOGRAPHY BI 2-[place] [address] [place] [address] [facility] [address] [place] [address] Referral ID Status Reason Start Date Expiration Date V isits Requested Visits Authorized [id number] Closed Auto-Generate d Referral 04/12/2024 05/12/2025 1 1 [facility] for visit Narrative* Diagnostic Procedure Only (Routine) - Closed Specialty Diagnoses / Procedures Referred By Elia t Referred To Contact [facility] Diagnoses Elevated alkaline phosphatase level Procedures US ABD RIGHT UPPER QUADRANT US ABDOMINAL REAL TIME W/IMAGE LIMITED Santo Love MD [address] [place] [address] Phone: tel: fax: [place] [address] Referral ID Status Reason Start Date Expiration Date V isits Requested Visits Authorized [id number] Closed Auto-Generate d Referral 01/25/2025 02/24/2026 1 1 [facility] for visit Narrative* Outpatient Procedure (Routine) - Closed Specialty Diagnoses / Procedures Referred By Elia villegas Referred To Contact [facility] Diagnoses Screening for colon cancer Procedures COLONOSCOPY SCREENING COLONOSCOPY FLX DX W/COLLJ SPEC WHEN PFRMD Santo Love MD [address] [place] [address] Phone: tel: fax: Zari Sorenson MD [address] [place] [address] Phone: tel: fax: Referral ID Status Reason Start Date Expiration Date V isits Requested Visits Authorized [id number] Closed Auto-Generate d Referral 05/09/2025 06/09/2025 1 1 [facility] for visit Narrative* Diagnostic Procedure Only (Routine) - Closed Specialty Diagnoses / Procedures Referred By Elia villegas Referred To Contact [facility] Diagnoses Encounter for screening mammogram for malignant neoplasm of breast Procedures GENEVA SCREENING W SANCHEZ SCREENING DIGITAL BREAST TOMOSYNTHESIS BI SCREENING MAMMOGRAPHY BI 2-VIEW BREAST INC CAD Santo Love MD [address] [place] [address] Phone: tel: fax: [facility] [address] [place] [address] Referral ID Status Reason Start Date Expiration Date V isits Requested Visits Authorized [id number] Closed Auto-Generate d Referral 07/05/2025 11/01/2025 [address] 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 Advance Directive(s) 09/17/2021 6:44 AM Advance Directive(s) 09/11/2020 10:43 AM Advance Directive(s) 11/13/2016 12:33 PM Advance Directive(s) 11/06/2016 12:34 PM Documents on File Type Date Recorded 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 Advance Directive(s) 09/17/2021 6:44 AM Advance Directive(s) 09/11/2020 10:43 AM Advance Directive(s) 11/13/2016 12:33 PM Advance Directive(s) 11/06/2016 12:34 PM Advance Directive Response Recorded Date/ Time Advance Directives No October 6:26pm Living Will No December 11 8:16am Power of Chief Engineer'S Helper No December 11, 2023 8:16am Advance Directive Response Recorded Date/ Time Advance Directives No October 6:26pm Living Will No December 11 12:46pm Power of Chief Engineer'S Helper No December 11, 2023 12:46pm Advance Directive Response Recorded Date/ Time Advance Directives No October 6:26pm Living Will No December 15 5:51am Power of Chief Engineer'S Helper No December 15, 2023 5:51am Advance Directive Response Recorded Date/ Time Advance Directives No October 6:26pm Living Will No December 15 10:24am Power of Chief Engineer'S Helper No December 15, 2023 10:24am Advance Directive Response Recorded Date/ Time Advance Directives No October 7:26pm Living Will No December 15 11:24am Power of Chief Engineer'S Helper No December 15, 2023 11:24am Advance Directive Response Recorded Date/ Time Advance Directives No October 7:26pm Living Will No February 01, 2024 3:07pm Power of Chief Engineer'S Helper No January 31 3:07pm Medications Administered Section Inactive Administered Medications - up to 3 most recent administrations Medication Order MAR Action Action Date Dose Rate Site ondansetron (PF) 4 mg injection (ZOFRAN) 4 mg, INTRAMUSCULAR, ONCE, 1 dose, On Maya 01/01/23 at 1130, Give IV push over 2 minutes Given 01/01/2023 11:11 AM EST 4 mg Buttocks, Left Chief Complaint and Reason for Visit Chief Complaint GI BLEED Reason for Visit Acute blood loss ane ailyn Blunt traumatic injury of ysjdrbm-jbvbgtvn-bygacl region Contusion of rib on right side On apixaban therapy UGIB (upper gastrointestinal bleed) Paroxysmal atrial fibrillation Chief Complaint GI BLEED GI BLEED GI BLEED GI BLEED Reason for Visit Acute blood loss ane ailyn Blunt traumatic injury of qzjvwbc-wnpzmvda-wrqklk region Contusion of rib on right side On apixaban therapy UGIB (upper gastrointestinal bleed) Paroxysmal atrial fibrillation Chief Complaint GI BLEED GI BLEED GI BLEED GI BLEED ABLA, UGIB Reason for Visit Acute blood loss ane ailyn Blunt traumatic injury of rchtsxf-sslppkoa-mnijom region Contusion of rib on right side On apixaban therapy UGIB (upper gastrointestinal bleed) Paroxysmal atrial fibrillation Acute blood loss anemia On apixaban therapy Pyloric channel ulcer UGIB (upper gastrointestinal bleed) Chief Complaint GI BLEED GI BLEED AM EKG GI BLEED GI BLEED ABLA, UGIB ABLA, UGIB ABLA, UGIB ABLA, UGIB ABLA, UGIB ABLA, UGIB ABLA, UGIB ABLA, UGIB ABLA, UGIB ABLA, UGIB ABLA, UGIB ABLA, UGIB Reason for Visit Acute blood loss ane ailyn Blunt traumatic injury of ibfaifc-fbiusdlf-wztbbd region Contusion of rib on right side UGIB (upper gastrointestinal bleed) Acute blood loss anemia Pyloric channel ulcer UGIB (upper gastrointestinal bleed) Chief Complaint GI BLEED GI BLEED AM EKG GI BLEED GI BLEED GI BLEED ABLA, UGIB ABLA, UGIB ABLA, UGIB ABLA, UGIB ABLA, UGIB ABLA, UGIB ABLA, UGIB ABLA, UGIB ABLA, UGIB ABLA, UGIB ABLA, UGIB Hospital EORDER Reason for Visit Acute blood loss ane ailyn Blunt traumatic injury of ysccirr-dawfkesx-hryphg region Contusion of rib on right side UGIB (upper gastrointestinal bleed) Pyloric channel ulcer Acute blood loss anemia UGIB (upper gastrointestinal bleed) Gastric ulcer GIB (gastrointestinal bleeding) Reason for Referral Specialty Diagnoses / Procedures Referred By Elia villegas Referred To Contact CT IMAGING Diagnoses Lung nodules Malignant neoplasm of female breast, unspecified estrogen receptor status, unspecified laterality, unspecified site of breast (HCC) Procedures CT CHEST WO IVCON DIAGNOSTIC COMPUTED TOMOGRAPHY THORAX W/O CNTRST Santo Love MD [address] [place] [address] [place] [address] Referral ID Status Reason Start Date Expiration Date Visits Requested Visits Authorized [id number] Pending Review Auto-Generat ed Referral 12/18/2023 01/16/2025 1 1 Specialty Diagnoses / Procedures Referred By Contac t Referred To Contact Urology / UROLOGY Diagnoses Urinary retention Hydroureter Procedures CONSULT TO UROLOGY OFFICE/OUTPATIENT [facility] 60 MINUTES Santo oLve MD [address] [place] [address] Urol [facility] [address] [place] [address] Referral ID Status Reason Start Date Expiration Date Visits Requested Visits Authorized [id number] Authorized PCP Requested Referral 01/06/2024 11/01/2024 1 1 Specialty Diagnoses / Procedures Referred By Contac t Referred To Contact Gastroenterology Diagnoses Duodenal ulcer Gastrointestinal hemorrhage, unspecified gastrointestinal hemorrhage type Procedures CONSULT TO GASTROENTEROLOGY Santo Love MD [address] [place] [address] Referral ID Status Reason Start Date Expiration Date Visits Requested Visits Authorized [id number] Ref Not Required PCP Requested Referral 01/06/2024 01/05/2025 1 1 Specialty Diagnoses / Procedures Referred By Contac t Referred To Contact Pulmonary and Critical Care Medicine Diagnoses Lung nodule Procedures CONSULT TO PULM/CRITICAL CARE OFFICE/OUTPATIENT [facility] 60 MINUTES Santo Love MD [address] [place] [address] Referral ID Status Reason Start Date Expiration Date Visits Requested Visits Authorized [id number] Pending Review PCP Requested Referral 01/14/2024 01/13/2025 1 1 Specialty Diagnoses / Procedures Referred By Contac t Referred To Contact CT IMAGING Diagnoses Pulmonary nodules Procedures CT CHEST WO IVCON DIAGNOSTIC COMPUTED TOMOGRAPHY THORAX W/O CNTRST Talya Rodriguez PA-C [address] [place] [address] [place] [address] Referral ID Status Reason Start Date Expiration Date Visits Requested Visits Authorized [id number] Authorized Auto-Generat ed Referral 08/09/2024 03/09/2025 1 1 Specialty Diagnoses / Procedures Referred By Contac t Referred To Contact Pulmonary and Critical Care Medicine Diagnoses Lung nodule Radiation fibrosis of lung (HCC) Granulomatous disease (HCC) Procedures CONSULT TO PULM/CRITICAL CARE OFFICE/OUTPATIENT [facility] MDM 60 MINUTES Santo Love MD [address] [place] [address] Referral ID Status Reason Start Date Expiration Date Visits Requested Visits Authorized [id number] Authorized PCP Requested Referral 11/19/2024 11/19/2025 1 1 Specialty Diagnoses / Procedures Referred By Contac t Referred To Contact CT IMAGING Diagnoses Granulomatous disease (HCC) Lung nodules History of breast cancer Procedures CT CHEST WO IVCON DIAGNOSTIC COMPUTED TOMOGRAPHY THORAX W/O CNTMALLORYT Leonela Bear MD [address] [place] [address] [place] [address] Referral ID Status Reason Start Date Expiration Date Visits Requested Visits Authorized [id number] Pending Review Auto-Generat ed Referral 11/29/2025 12/29/2025 1 1 Additional Source Comments INFORMATION SOURCE (unrecogn ized section and content) DATE CREATED AUTHOR 07/02/2018 [facility] DATE CREATED AUTHOR AUTHOR'S ORGANIZ ATION 07/02/2018 [facility] DATE CREATED AUTHOR AUTHOR'S ORGANIZ ATION 12/06/2020 [facility] DATE CREATED AUTHOR AUTHOR'S ORGANIZ ATION 10/06/2024 [facility] DATE CREATED AUTHOR AUTHOR'S ORGANIZ ATION 08/24/2025 [facility] Source Comments (unrecognize d section and content) In the event this informatio n is protected by the Federal Confidentiality of Alcohol and Drug Abuse Patient Records regulations: The Federal rules restrict any use of the information to criminally investigate or prosecute any alcohol or drug abuse patient.[facility] the event this information is protected by the Federal Confidentiality of Alcohol and Drug Abuse Patient Records regulations: The Federal rules restrict any use of the information to criminally investigate or prosecute any alcohol or drug abuse patient.[facility] HospitalIn the event this information is protected by the Federal Confidentiality of Alcohol and Drug Abuse Patient Records regulations: The Federal rules restrict any use of the information to criminally investigate or prosecute any alcohol or drug abuse patient.[facility] HospitalIn the event this information is protected by the Federal Confidentiality of Alcohol and Drug Abuse Patient Records regulations: The Federal rules restrict any use of the information to criminally investigate or prosecute any alcohol or drug abuse patient.[facility] HospitalIn the event this information is protected by the Federal Confidentiality of Alcohol and Drug Abuse Patient Records regulations: The Federal rules restrict any use of the information to criminally investigate or prosecute any alcohol or drug abuse patient.[facility] HospitalIn the event this information is protected by the Federal Confidentiality of Alcohol and Drug Abuse Patient Records regulations: The Federal rules restrict any use of the information to criminally investigate or prosecute any alcohol or drug abuse patient.[facility] HospitalIn the event this information is protected by the Federal Confidentiality of Alcohol and Drug Abuse Patient Records regulations: The Federal rules restrict any use of the information to criminally investigate or prosecute any alcohol or drug abuse patient.[facility] HospitalIn the event this information is protected by the Federal Confidentiality of Alcohol and Drug Abuse Patient Records regulations: The Federal rules restrict any use of the information to criminally investigate or prosecute any alcohol or drug abuse patient.[facility] HospitalIn the event this information is protected by the Federal Confidentiality of Alcohol and Drug Abuse Patient Records regulations: The Federal rules restrict any use of the information to criminally investigate or prosecute any alcohol or drug abuse patient.[facility] HospitalIn the event this information is protected by the Federal Confidentiality of Alcohol and Drug Abuse Patient Records regulations: The Federal rules restrict any use of the information to criminally investigate or prosecute any alcohol or drug abuse patient.[facility] HospitalIn the event this information is protected by the Federal Confidentiality of Alcohol and Drug Abuse Patient Records regulations: The Federal rules restrict any use of the information to criminally investigate or prosecute any alcohol or drug abuse patient.[facility] HospitalIn the event this information is protected by the Federal Confidentiality of Alcohol and Drug Abuse Patient Records regulations: The Federal rules restrict any use of the information to criminally investigate or prosecute any alcohol or drug abuse patient.[facility] HospitalIn the event this information is protected by the Federal Confidentiality of Alcohol and Drug Abuse Patient Records regulations: The Federal rules restrict any use of the information to criminally investigate or prosecute any alcohol or drug abuse patient.[facility] HospitalIn the event this information is protected by the Federal Confidentiality of Alcohol and Drug Abuse Patient Records regulations: The Federal rules restrict any use of the information to criminally investigate or prosecute any alcohol or drug abuse patient.[facility] HospitalIn the event this information is protected by the Federal Confidentiality of Alcohol and Drug Abuse Patient Records regulations: The Federal rules restrict any use of the information to criminally investigate or prosecute any alcohol or drug abuse patient.[facility] HospitalIn the event this information is protected by the Federal Confidentiality of Alcohol and Drug Abuse Patient Records regulations: The Federal rules restrict any use of the information to criminally investigate or prosecute any alcohol or drug abuse patient.[facility] HospitalIn the event this information is protected by the Federal Confidentiality of Alcohol and Drug Abuse Patient Records regulations: The Federal rules restrict any use of the information to criminally investigate or prosecute any alcohol or drug abuse patient.[facility] HospitalIn the event this information is protected by the Federal Confidentiality of Alcohol and Drug Abuse Patient Records regulations: The Federal rules restrict any use of the information to criminally investigate or prosecute any alcohol or drug abuse patient.[facility] HospitalIn the event this information is protected by the Federal Confidentiality of Alcohol and Drug Abuse Patient Records regulations: The Federal rules restrict any use of the information to criminally investigate or prosecute any alcohol or drug abuse patient.[facility] HospitalIn the event this information is protected by the Federal Confidentiality of Alcohol and Drug Abuse Patient Records regulations: The Federal rules restrict any use of the information to criminally investigate or prosecute any alcohol or drug abuse patient.[facility] HospitalIn the event this information is protected by the Federal Confidentiality of Alcohol and Drug Abuse Patient Records regulations: The Federal rules restrict any use of the information to criminally investigate or prosecute any alcohol or drug abuse patient.[facility] HospitalIn the event this information is protected by the Federal Confidentiality of Alcohol and Drug Abuse Patient Records regulations: The Federal rules restrict any use of the information to criminally investigate or prosecute any alcohol or drug abuse patient.[facility] HospitalIn the event this information is protected by the Federal Confidentiality of Alcohol and Drug Abuse Patient Records regulations: The Federal rules restrict any use of the information to criminally investigate or prosecute any alcohol or drug abuse patient.[facility] HospitalIn the event this information is protected by the Federal Confidentiality of Alcohol and Drug Abuse Patient Records regulations: The Federal rules restrict any use of the information to criminally investigate or prosecute any alcohol or drug abuse patient.[facility] HospitalIn the event this information is protected by the Federal Confidentiality of Alcohol and Drug Abuse Patient Records regulations: The Federal rules restrict any use of the information to criminally investigate or prosecute any alcohol or drug abuse patient.[facility] HospitalIn the event this information is protected by the Federal Confidentiality of Alcohol and Drug Abuse Patient Records regulations: The Federal rules restrict any use of the information to criminally investigate or prosecute any alcohol or drug abuse patient.[facility] HospitalIn the event this information is protected by the Federal Confidentiality of Alcohol and Drug Abuse Patient Records regulations: The Federal rules restrict any use of the information to criminally investigate or prosecute any alcohol or drug abuse patient.[facility] HospitalIn the event this information is protected by the Federal Confidentiality of Alcohol and Drug Abuse Patient Records regulations: The Federal rules restrict any use of the information to criminally investigate or prosecute any alcohol or drug abuse patient.[facility] HospitalIn the event this information is protected by the Federal Confidentiality of Alcohol and Drug Abuse Patient Records regulations: The Federal rules restrict any use of the information to criminally investigate or prosecute any alcohol or drug abuse patient.[facility] HospitalIn the event this information is protected by the Federal Confidentiality of Alcohol and Drug Abuse Patient Records regulations: The Federal rules restrict any use of the information to criminally investigate or prosecute any alcohol or drug abuse patient.[facility] HospitalIn the event this information is protected by the Federal Confidentiality of Alcohol and Drug Abuse Patient Records regulations: The Federal rules restrict any use of the information to criminally investigate or prosecute any alcohol or drug abuse patient.[facility] HospitalIn the event this information is protected by the Federal Confidentiality of Alcohol and Drug Abuse Patient Records regulations: The Federal rules restrict any use of the information to criminally investigate or prosecute any alcohol or drug abuse patient.[facility] HospitalIn the event this information is protected by the Federal Confidentiality of Alcohol and Drug Abuse Patient Records regulations: The Federal rules restrict any use of the information to criminally investigate or prosecute any alcohol or drug abuse patient.[facility] HospitalIn the event this information is protected by the Federal Confidentiality of Alcohol and Drug Abuse Patient Records regulations: The Federal rules restrict any use of the information to criminally investigate or prosecute any alcohol or drug abuse patient.[facility] HospitalIn the event this information is protected by the Federal Confidentiality of Alcohol and Drug Abuse Patient Records regulations: The Federal rules restrict any use of the information to criminally investigate or prosecute any alcohol or drug abuse patient.[facility] HospitalIn the event this information is protected by the Federal Confidentiality of Alcohol and Drug Abuse Patient Records regulations: The Federal rules restrict any use of the information to criminally investigate or prosecute any alcohol or drug abuse patient.[facility] HospitalIn the event this information is protected by the Federal Confidentiality of Alcohol and Drug Abuse Patient Records regulations: The Federal rules restrict any use of the information to criminally investigate or prosecute any alcohol or drug abuse patient.[facility] HospitalIn the event this information is protected by the Federal Confidentiality of Alcohol and Drug Abuse Patient Records regulations: The Federal rules restrict any use of the information to criminally investigate or prosecute any alcohol or drug abuse patient.[facility] HospitalIn the event this information is protected by the Federal Confidentiality of Alcohol and Drug Abuse Patient Records regulations: The Federal rules restrict any use of the information to criminally investigate or prosecute any alcohol or drug abuse patient.[facility] HospitalIn the event this information is protected by the Federal Confidentiality of Alcohol and Drug Abuse Patient Records regulations: The Federal rules restrict any use of the information to criminally investigate or prosecute any alcohol or drug abuse patient.[facility] HospitalIn the event this information is protected by the Federal Confidentiality of Alcohol and Drug Abuse Patient Records regulations: The Federal rules restrict any use of the information to criminally investigate or prosecute any alcohol or drug abuse patient.[facility] HospitalIn the event this information is protected by the Federal Confidentiality of Alcohol and Drug Abuse Patient Records regulations: The Federal rules restrict any use of the information to criminally investigate or prosecute any alcohol or drug abuse patient.[facility] HospitalIn the event this information is protected by the Federal Confidentiality of Alcohol and Drug Abuse Patient Records regulations: The Federal rules restrict any use of the information to criminally investigate or prosecute any alcohol or drug abuse patient.[facility] HospitalIn the event this information is protected by the Federal Confidentiality of Alcohol and Drug Abuse Patient Records regulations: The Federal rules restrict any use of the information to criminally investigate or prosecute any alcohol or drug abuse patient.[facility] HospitalIn the event this information is protected by the Federal Confidentiality of Alcohol and Drug Abuse Patient Records regulations: The Federal rules restrict any use of the information to criminally investigate or prosecute any alcohol or drug abuse patient.[facility] HospitalIn the event this information is protected by the Federal Confidentiality of Alcohol and Drug Abuse Patient Records regulations: The Federal rules restrict any use of the information to criminally investigate or prosecute any alcohol or drug abuse patient.[facility] HospitalIn the event this information is protected by the Federal Confidentiality of Alcohol and Drug Abuse Patient Records regulations: The Federal rules restrict any use of the information to criminally investigate or prosecute any alcohol or drug abuse patient.[facility] HospitalIn the event this information is protected by the Federal Confidentiality of Alcohol and Drug Abuse Patient Records regulations: The Federal rules restrict any use of the information to criminally investigate or prosecute any alcohol or drug abuse patient.[facility] HospitalIn the event this information is protected by the Federal Confidentiality of Alcohol and Drug Abuse Patient Records regulations: The Federal rules restrict any use of the information to criminally investigate or prosecute any alcohol or drug abuse patient.[facility] HospitalIn the event this information is protected by the Federal Confidentiality of Alcohol and Drug Abuse Patient Records regulations: The Federal rules restrict any use of the information to criminally investigate or prosecute any alcohol or drug abuse patient.[facility] HospitalIn the event this information is protected by the Federal Confidentiality of Alcohol and Drug Abuse Patient Records regulations: The Federal rules restrict any use of the information to criminally investigate or prosecute any alcohol or drug abuse patient.[facility] HospitalIn the event this information is protected by the Federal Confidentiality of Alcohol and Drug Abuse Patient Records regulations: The Federal rules restrict any use of the information to criminally investigate or prosecute any alcohol or drug abuse patient.[facility] HospitalIn the event this information is protected by the Federal Confidentiality of Alcohol and Drug Abuse Patient Records regulations: The Federal rules restrict any use of the information to criminally investigate or prosecute any alcohol or drug abuse patient.[facility] HospitalIn the event this information is protected by the Federal Confidentiality of Alcohol and Drug Abuse Patient Records regulations: The Federal rules restrict any use of the information to criminally investigate or prosecute any alcohol or drug abuse patient.[facility] HospitalIn the event this information is protected by the Federal Confidentiality of Alcohol and Drug Abuse Patient Records regulations: The Federal rules restrict any use of the information to criminally investigate or prosecute any alcohol or drug abuse patient.[facility] HospitalIn the event this information is protected by the Federal Confidentiality of Alcohol and Drug Abuse Patient Records regulations: The Federal rules restrict any use of the information to criminally investigate or prosecute any alcohol or drug abuse patient.[facility] HospitalIn the event this information is protected by the Federal Confidentiality of Alcohol and Drug Abuse Patient Records regulations: The Federal rules restrict any use of the information to criminally investigate or prosecute any alcohol or drug abuse patient.[facility] HospitalIn the event this information is protected by the Federal Confidentiality of Alcohol and Drug Abuse Patient Records regulations: The Federal rules restrict any use of the information to criminally investigate or prosecute any alcohol or drug abuse patient.[facility] HospitalIn the event this information is protected by the Federal Confidentiality of Alcohol and Drug Abuse Patient Records regulations: The Federal rules restrict any use of the information to criminally investigate or prosecute any alcohol or drug abuse patient.[facility] HospitalIn the event this information is protected by the Federal Confidentiality of Alcohol and Drug Abuse Patient Records regulations: The Federal rules restrict any use of the information to criminally investigate or prosecute any alcohol or drug abuse patient.[facility] HospitalIn the event this information is protected by the Federal Confidentiality of Alcohol and Drug Abuse Patient Records regulations: The Federal rules restrict any use of the information to criminally investigate or prosecute any alcohol or drug abuse patient.[facility] HospitalIn the event this information is protected by the Federal Confidentiality of Alcohol and Drug Abuse Patient Records regulations: The Federal rules restrict any use of the information to criminally investigate or prosecute any alcohol or drug abuse patient.[facility] HospitalIn the event this information is protected by the Federal Confidentiality of Alcohol and Drug Abuse Patient Records regulations: The Federal rules restrict any use of the information to criminally investigate or prosecute any alcohol or drug abuse patient.[facility] HospitalIn the event this information is protected by the Federal Confidentiality of Alcohol and Drug Abuse Patient Records regulations: The Federal rules restrict any use of the information to criminally investigate or prosecute any alcohol or drug abuse patient.[facility] HospitalIn the event this information is protected by the Federal Confidentiality of Alcohol and Drug Abuse Patient Records regulations: The Federal rules restrict any use of the information to criminally investigate or prosecute any alcohol or drug abuse patient.[facility] HospitalIn the event this information is protected by the Federal Confidentiality of Alcohol and Drug Abuse Patient Records regulations: The Federal rules restrict any use of the information to criminally investigate or prosecute any alcohol or drug abuse patient.[facility] HospitalIn the event this information is protected by the Federal Confidentiality of Alcohol and Drug Abuse Patient Records regulations: The Federal rules restrict any use of the information to criminally investigate or prosecute any alcohol or drug abuse patient.[facility] HospitalIn the event this information is protected by the Federal Confidentiality of Alcohol and Drug Abuse Patient Records regulations: The Federal rules restrict any use of the information to criminally investigate or prosecute any alcohol or drug abuse patient.[facility] HospitalIn the event this information is protected by the Federal Confidentiality of Alcohol and Drug Abuse Patient Records regulations: The Federal rules restrict any use of the information to criminally investigate or prosecute any alcohol or drug abuse patient.[facility] HospitalIn the event this information is protected by the Federal Confidentiality of Alcohol and Drug Abuse Patient Records regulations: The Federal rules restrict any use of the information to criminally investigate or prosecute any alcohol or drug abuse patient.[facility] HospitalIn the event this information is protected by the Federal Confidentiality of Alcohol and Drug Abuse Patient Records regulations: The Federal rules restrict any use of the information to criminally investigate or prosecute any alcohol or drug abuse patient.[facility] HospitalIn the event this information is protected by the Federal Confidentiality of Alcohol and Drug Abuse Patient Records regulations: The Federal rules restrict any use of the information to criminally investigate or prosecute any alcohol or drug abuse patient.[facility] HospitalIn the event this information is protected by the Federal Confidentiality of Alcohol and Drug Abuse Patient Records regulations: The Federal rules restrict any use of the information to criminally investigate or prosecute any alcohol or drug abuse patient.[facility] HospitalIn the event this information is protected by the Federal Confidentiality of Alcohol and Drug Abuse Patient Records regulations: The Federal rules restrict any use of the information to criminally investigate or prosecute any alcohol or drug abuse patient.[facility] HospitalIn the event this information is protected by the Federal Confidentiality of Alcohol and Drug Abuse Patient Records regulations: The Federal rules restrict any use of the information to criminally investigate or prosecute any alcohol or drug abuse patient.[facility] HospitalIn the event this information is protected by the Federal Confidentiality of Alcohol and Drug Abuse Patient Records regulations: The Federal rules restrict any use of the information to criminally investigate or prosecute any alcohol or drug abuse patient.[facility] HospitalIn the event this information is protected by the Federal Confidentiality of Alcohol and Drug Abuse Patient Records regulations: The Federal rules restrict any use of the information to criminally investigate or prosecute any alcohol or drug abuse patient.[facility] HospitalIn the event this information is protected by the Federal Confidentiality of Alcohol and Drug Abuse Patient Records regulations: The Federal rules restrict any use of the information to criminally investigate or prosecute any alcohol or drug abuse patient.[facility] HospitalIn the event this information is protected by the Federal Confidentiality of Alcohol and Drug Abuse Patient Records regulations: The Federal rules restrict any use of the information to criminally investigate or prosecute any alcohol or drug abuse patient.[facility] HospitalIn the event this information is protected by the Federal Confidentiality of Alcohol and Drug Abuse Patient Records regulations: The Federal rules restrict any use of the information to criminally investigate or prosecute any alcohol or drug abuse patient.[facility] HospitalIn the event this information is protected by the Federal Confidentiality of Alcohol and Drug Abuse Patient Records regulations: The Federal rules restrict any use of the information to criminally investigate or prosecute any alcohol or drug abuse patient.[facility] HospitalIn the event this information is protected by the Federal Confidentiality of Alcohol and Drug Abuse Patient Records regulations: The Federal rules restrict any use of the information to criminally investigate or prosecute any alcohol or drug abuse patient.[facility] HospitalIn the event this information is protected by the Federal Confidentiality of Alcohol and Drug Abuse Patient Records regulations: The Federal rules restrict any use of the information to criminally investigate or prosecute any alcohol or drug abuse patient.[facility] HospitalIn the event this information is protected by the Federal Confidentiality of Alcohol and Drug Abuse Patient Records regulations: The Federal rules restrict any use of the information to criminally investigate or prosecute any alcohol or drug abuse patient.[facility] HospitalIn the event this information is protected by the Federal Confidentiality of Alcohol and Drug Abuse Patient Records regulations: The Federal rules restrict any use of the information to criminally investigate or prosecute any alcohol or drug abuse patient.[facility] HospitalIn the event this information is protected by the Federal Confidentiality of Alcohol and Drug Abuse Patient Records regulations: The Federal rules restrict any use of the information to criminally investigate or prosecute any alcohol or drug abuse patient.[facility] HospitalIn the event this information is protected by the Federal Confidentiality of Alcohol and Drug Abuse Patient Records regulations: The Federal rules restrict any use of the information to criminally investigate or prosecute any alcohol or drug abuse patient.[facility] HospitalIn the event this information is protected by the Federal Confidentiality of Alcohol and Drug Abuse Patient Records regulations: The Federal rules restrict any use of the information to criminally investigate or prosecute any alcohol or drug abuse patient.[facility] HospitalIn the event this information is protected by the Federal Confidentiality of Alcohol and Drug Abuse Patient Records regulations: The Federal rules restrict any use of the information to criminally investigate or prosecute any alcohol or drug abuse patient.[facility] Reason for Visit (unrecogniz ed section and content) Reason Onset Date Comments Refill Request 02/13/2022 Reason Comments prescription assistance Reason Comments Patient [...] Request 09/30/2023 SEE RX NOTES TO CHANGE Reason Onset Date Comments Transition Of Care 12/14/2023 Reason Comments Results Reason Onset Date Comments Transition Of Care 12/24/2023 Reason Comments Hospital F/U Reason Comments Radiology CT Specialty Diagnoses / Procedures Referred By Contac t Referred To Contact CT IMAGING Diagnoses Lung nodules Malignant neoplasm of female breast, unspecified estrogen receptor status, unspecified laterality, unspecified site of breast (HCC) Procedures CT CHEST WO IVCON DIAGNOSTIC COMPUTED TOMOGRAPHY THORAX W/O CNTRST Santo Love MD [facility] [place] [address] Ct Imaging [place] [address] Referral ID Status Reason Start Date Expiration Date V isits Requested Visits Authorized [id number] Closed Auto-Generate d Referral 12/18/2023 01/16/2025 1 1 Reason Comments New Patient Hydronephrosis Specialty Diagnoses / Procedures Referred By Contac t Referred To Contact Urology / UROLOGY Diagnoses Urinary retention Hydroureter Procedures CONSULT TO UROLOGY OFFICE/OUTPATIENT NEW HIGH MDM 60 MINUTES Santo Love MD [facility] [place] [address] Urol [facility] [address] [place] [address] Referral ID Status Reason Start Date Expiration Date V isits Requested Visits Authorized [id number] Closed PCP Requested Referral 01/06/2024 11/01/2024 1 1 Reason Comments Follow Up Blood Pressure Reason Comments Radiology US Specialty Diagnoses / Procedures Referred By Contac t Referred To Contact US IMAGING Diagnoses Bilateral hydronephrosis Hydroureter Procedures US KIDNEY/BLADDER US RETROPERITONEAL REAL TIME W/IMAGE COMPLETE Zac Duncan PA-C [address] [place] [address] Us Imaging [place] [address] Referral ID Status Reason Start Date Expiration Date V isits Requested Visits Authorized [id number] Closed Auto-Generate d Referral 02/02/2024 03/03/2025 1 1 Reason Comments Consult Lung Nodules: Hospit al stay 12/16/2023 Specialty Diagnoses / Procedures Referred By Contac t Referred To Contact Pulmonary and Critical Care Medicine Diagnoses Lung nodule Procedures CONSULT TO PULM/CRITICAL CARE OFFICE/OUTPATIENT [facility] 60 MINUTES Santo Love MD [address] [place] [address] [address] [place] [id number] Referral ID Status Reason Start Date Expiration Date V isits Requested Visits Authorized [id number] Closed PCP Requested Referral 01/15/2024 11/01/2024 1 1 Reason Comments Orders Reason Onset Date Comments Refill Request 03/14/2024 Reason Comments Follow Up Reason Comments Follow Up Reason Onset Date Comments Refill Request 04/28/2024 Reason Comments medication clarification Reason Comments Hypertension Follow up Reason Comments Hypertension Follow up Diabetes Follow up Reason Comments Trulicity search Specialty Diagnoses / Procedures Referred By Contac t Referred To Contact CT IMAGING Diagnoses Pulmonary nodules Procedures CT CHEST WO IVCON DIAGNOSTIC COMPUTED TOMOGRAPHY THORAX W/O CNTRST Talya Rodriguez PA-C [address] [place] [address] Ct Imaging [facility] Referral ID Status Reason Start Date Expiration Date V isits Requested Visits Authorized [id number] Closed Auto-Generate d Referral 08/09/2024 03/09/2025 1 1 Reason Comments Established Patient Lung nodule Nodule Specialty Diagnoses / Procedures Referred By Contac t Referred To Contact Pulmonary and Critical Care Medicine Diagnoses Lung nodule Radiation fibrosis of lung (HCC) Granulomatous disease (HCC) Procedures CONSULT TO PULM/CRITICAL CARE OFFICE/OUTPATIENT [facility] 60 MINUTES Santo Love MD [address] [place] [address] Referral ID Status Reason Start Date Expiration Date V isits Requested Visits Authorized [id number] Closed PCP Requested Referral 11/19/2024 11/19/2025 1 1 Reason Onset Date Comments Refill Request 12/07/2024 Reason Comments requesting medication that is Reason Onset Date Comments Refill Request 03/01/2025 Reason Onset Date Comments Refill Request 03/03/2025 Reason Comments Recheck 1 month BP check Reason Onset Date Comments Population Health Navigation Outreach 03/30/2025 Batsheva Ocampo Reason Comments Recheck 2 month follow up Reason Comments Consult For colonoscopy, pre vious polyps Reason Comments Appointment Reason Onset Date Comments Refill Request 06/21/2025 Care Teams (unrecognized sec tion and content) Sugar Cane Grower Relationship Specialty Start Date End Date Santo Love MD [address] [facility] [place] [address] PCP - General Family Practice 09/18/[address] [facility] [address] [place] [address] Pharmacist Pharmacy 04/14/[address] [facility] [address] [facility] [place] [address] Pharmacist Pharmacy 10/31/20 Sugar Cane Grower Relationship Specialty Start Date End Date Santo Love MD [address] [facility] [place] [address] PCP - General Family Practice 09/18/[address] [facility] [address] [place] [address] Pharmacist Pharmacy 04/14/[address] [facility] [address] [place] [address] Pharmacist Pharmacy 10/31/20 Sugar Cane Grower Relationship Specialty Start Date End Date Santo Love MD [address] [facility] [place] [address] PCP - General Family Practice 09/18/[address] [facility] [address] [facility] [place] [address] Pharmacist Pharmacy 04/14/19 [facility] WomenY[facility] fierro, [facility] [address] [facility] [place] [address] Pharmacist Pharmacy 10/31/20 Sugar Cane Grower Relationship Specialty Start Date End Date Santo Love MD [address] [facility] [place] [address] PCP - General Family Practice 09/18/[address] [facility] [address] [place] [address] Pharmacist Pharmacy 04/14/19 FarhanYazmin fierro, [facility] [address] [facility] [place] [address] Pharmacist Pharmacy 10/31/20 Sugar Cane Grower Relationship Specialty Start Date End Date Santo Love MD [address] [facility] [place] [address] PCP - General Family Practice 09/18/15 Jenny Brooke, [facility] [address] [facility] [place] [address] Pharmacist Pharmacy 04/14/19 Yazmin Meade, [facility] [address] [place] [address] Pharmacist Pharmacy 10/31/20 Sugar Cane Grower Relationship Specialty Start Date End Date Santo Love MD [address] [facility] [place] [address] PCP - General Family Practice 09/18/15 Jenny Brooke, [facility] [address] [place] [address] Pharmacist Pharmacy 04/14/19 Yazmin Meade, [facility] [address] [place] [address] Pharmacist Pharmacy 10/31/20 Sugar Cane Grower Relationship Specialty Start Date End Date Santo Love MD [address] [place] [address] PCP - General Family Practice 09/18/15 Jenny Brooke, [facility] [address] [facility] [place] [address] Pharmacist Pharmacy 04/14/[address] [facility] [address] [place] [address] Pharmacist Pharmacy 10/31/20 Sugar Cane Grower Relationship Specialty Start Date End Date Santo Love MD [address] [place] [address] PCP - General Family Practice 09/18/[address] [facility] [address] [place] [address] Pharmacist Pharmacy 04/14/19 Yazmin Meade, [facility] [address] [facility] [place] [address] Pharmacist Pharmacy 10/31/20 Sugar Cane Grower Relationship Specialty Start Date End Date Santo Love MD [address] [place] [address] PCP - General Family Practice 09/18/[address] [facility] [address] [facility] [place] [address] Pharmacist Pharmacy 04/14/19 Yazmin Meade, [facility] [address] [facility] [place] [address] Pharmacist Pharmacy 10/31/20 Sugar Cane Grower Relationship Specialty Start Date End Date Santo Love MD [address] [place] [address] PCP - General Family Medicine 09/18/15 Jenny Brooke, [facility] [address] [facility] [place] [address] Pharmacist Pharmacy 04/14/19 [facility] [address] [facility] [place] [address] Pharmacist Pharmacy 10/31/20 Sugar Cane Grower Relationship Specialty Start Date End Date Santo Love MD [address] [facility] [place] [address] PCP - General Family Medicine 09/18/15 Jenny Brooke, [facility] [address] [facility] [place] [address] Pharmacist Pharmacy 04/14/[address] [facility] [address] [facility] [place] [address] Pharmacist Pharmacy 10/31/20 Sugar Cane Grower Relationship Specialty Start Date End Date Santo Love MD [address] [facility] [place] [address] PCP - General Family Medicine 09/18/15 Jenny Brooke, [facility] [address] [facility] [place] [address] Pharmacist Pharmacy 04/14/[address] [facility] [address] [place] [address] Pharmacist Pharmacy 10/31/20 Sugar Cane Grower Relationship Specialty Start Date End Date Santo Love MD [address] [place] [address] PCP - General Family Medicine 09/18/15 Jenny Brooke, [facility] [address] [place] [address] Pharmacist Pharmacy 04/14/19 Yazmin Meade, [facility] [address] [place] [address] Pharmacist Pharmacy 10/31/20 Sugar Cane Grower Relationship Specialty Start Date End Date Santo Love MD [address] [facility] [place] [address] PCP - General Family Medicine 09/18/15 Jenny Brooke, [facility] [address] [place] [address] Pharmacist Pharmacy 04/14/19 Yazmin Meade [facility] [address] [facility] [place] [address] Pharmacist Pharmacy 10/31/20 Sugar Cane Grower Relationship Specialty Start Date End Date Santo Love MD [address] [facility] [place] [address] PCP - General Family Medicine 09/18/15 Jenny Brooke, [facility] [address] [facility] [place] [address] Pharmacist Pharmacy 04/14/19 Yazmin Meade, [facility] [address] [facility] [place] [address] Pharmacist Pharmacy 10/31/20 Sugar Cane Grower Relationship Specialty Start Date End Date Santo Love MD [address] [facility] [place] [address] PCP - General Family Medicine 09/18/15 MendyJenny chatman, [facility] [address] [facility] [place] [address] Pharmacist Pharmacy 04/14/19 Yazmin Meade, [facility] [address] [place] [address] Pharmacist Pharmacy 10/31/20 Sugar Cane Grower Relationship Specialty Start Date End Date Santo Love MD [address] [facility] [place] [address] PCP - General Family Medicine 09/18/15 Jenny Brooke, [facility] [address] [facility] [place] [address] Pharmacist Pharmacy 04/14/[address] [facility] [address] [facility] [place] [address] Pharmacist Pharmacy 10/31/20 Sugar Cane Grower Relationship Specialty Start Date End Date Santo Love MD [address] [facility] [place] [address] PCP - General Family Medicine 09/18/15 Jenny Brooke, [facility] [address] [facility] [place] [address] Pharmacist Pharmacy 04/14/[address] [facility] [address] [place] [address] Pharmacist Pharmacy 10/31/20 Sugar Cane Grower Relationship Specialty Start Date End Date Santo Love MD [address] [facility] [place] [address] PCP - General Family Medicine 09/18/15 Jenny Brooke, [facility] [address] [facility] [place] [address] Pharmacist Pharmacy 04/14/19 Yazmin Meade, [facility] [address] [place] [address] Pharmacist Pharmacy 10/31/20 Sugar Cane Grower Relationship Specialty Start Date End Date Santo Love MD [address] [facility] [place] [address] PCP - General Family Medicine 09/18/15 Jenny Brooke, [facility] [address] [place] [address] Pharmacist Pharmacy 04/14/19 [facility] [address] [place] [address] Pharmacist Pharmacy 10/31/20 Sugar Cane Grower Relationship Specialty Start Date End Date Santo Love MD [address] [place] [address] PCP - General Family Medicine 09/18/15 [facility]aJ[facility]Little [facility] [address] [place] [address] Pharmacist Pharmacy 04/14/19 [facility] [address] [place] [address] Pharmacist Pharmacy 10/31/20 Sugar Cane Grower Relationship Specialty Start Date End Date Santo Love MD [address] [place] [address] PCP - General Family Medicine 09/18/[address] [facility] [address] [place] [address] Pharmacist Pharmacy 04/14/19 [facility] [address] [facility] [place] [address] Pharmacist Pharmacy 10/31/20 Sugar Cane Grower Relationship Specialty Start Date End Date Santo Love MD [address] [place] [address] PCP - General Family Medicine 09/18/15 [facility]atonYomairaJennyLittle [facility] [address] [place] [address] Pharmacist Pharmacy 04/14/[address] [facility] [address] [place] [address] Pharmacist Pharmacy 10/31/20 Sugar Cane Grower Relationship Specialty Start Date End Date Santo Love MD [address] [place] [address] PCP - General Family Medicine 09/18/[address] [facility] [address] [place] [address] Pharmacist Pharmacy 04/14/19 Team Status: Active Member Role Status Dates Dr. Santo Love MD Family Provider Active Dr. Santo Love MD Primary Care Provider Active Team Status: Active Member Role Status Dates Dr. Santo Love MD Primary Care Provider Active Dr. Panchito Zavaleta MD Emergency Provider Active Dr. Tahir Rivas DO Admit Provider, Attending Provider Active Team Status: Active Member Role Status Dates Dr. Santo Love MD Primary Care Provider Active Dr. Panchito Zavaleta MD Emergency Provider Active Dr. Tahir Rivas DO Admit Provider, Other Pro vider Active Dr. Cullen Ferrer DO Attending Provider Active Team Status: Active Member Role Status Dates Dr. Santo Love MD Primary Care Provider Active Dr. Panchito Zavaleta MD Emergency Provider Active Dr. Tahir Rivas DO Admit Provi avery, Attending Provider, Other Provider Active Team Status: Inactive Member Role Status Dates Dr. Santo Love MD Primary Care Provider Active Dr. Panchito Zavaleta MD Emergency Provider Active Dr. Tahir Rivas DO Admit Provider, Attending Provider Active Team Status: Active Member Role Status Dates Dr. Santo Love MD Primary Care Provider Active Dr. Panchito Zavaleta MD Emergency Provider Active Dr. Vincent Schwab DO Admit Provider, Attending Pro vider Active Sugar Cane Grower Relationship Specialty Start Date End Date Santo Love MD [address] [place] [address] PCP - General Family Medicine 09/18/[address] [facility] [address] [place] [address] Pharmacist Pharmacy 04/14/19 Team Status: Active Member Role Status Dates Dr. Santo Love MD Primary Care Provider Active Dr. Cullen Fererr DO Attending Provider Active Team Status: Active Member Role Status Dates Dr. Santo Love MD Primary Care Provider Active Dr. Panchito Zavaleta MD Emergency Provider Active Dr. Vincent Schwab DO Admit Provider, Other Provide r Active Dr. Tahir Rivas DO Attending Provider Active Team Status: Active Member Role Status Dates Dr. Santo Love MD Primary Care Provider Active Dr. Panchito Zavaleta MD Emergency Provider Active Dr. Vincent Schwab DO Admit Provider, Other Provide r Active Dr. Gomez Johansen MD Other Provider Active Dr. Cullen Ferrer DO Attending Provider Active Team Status: Active Member Role Status Dates Dr. Santo Love MD Primary Care Provider Active Dr. Panchito Zavaleta MD Emergency Provider Active Dr. Vincent Schwab DO Admit Provider, Other Provide r Active Dr. Gomez Johansen MD Attending Provider, Other Provider Active Dr. Nitish Sood MD Other Provider Active Team Status: Active Member Role Status Dates Dr. Santo Love MD Primary Care Provider Active Dr. Panchito Zavaleta MD Emergency Provider Active Dr. Vincent Schwab DO Admit Provider, Other Provide r Active Dr. Gomez Johansen MD Other Provider Active Dr. Nitish Sood MD Other Provider Active Dr. Cullen Ferrer DO Attending Provider Active Team Status: Active Member Role Status Dates Dr. Santo Love MD Primary Care Provider Active Dr. Jacques Fortune MD Attending Provider, Referring Provider Active Team Status: Inactive Member Role Status Dates Dr. Santo Love MD Primary Care Provider Active Dr. Panchito Zavaleta MD Emergency Provider Active Dr. Vincent Schwab DO Admit Provider, Other Provide r Active Dr. Gomez Johansen MD Attending Provider Active Dr. Nitish Sood MD Other Provider Active Sugar Cane Grower Relationship Specialty Start Date End Date Santo Love MD [address] [place] [address] PCP - General Family Medicine 09/18/15 EatonJenny, [facility] [address] [facility] [place] [address] Pharmacist Pharmacy 04/14/19 Sugar Cane Grower Relationship Specialty Start Date End Date Santo Love MD [address] [facility] [place] [address] PCP - General Family Medicine 09/18/15 EatonYomairaJenny, [facility] [address] [facility] [place] [address] Pharmacist Pharmacy 04/14/19 Sugar Cane Grower Relationship Specialty Start Date End Date Santo Love MD [address] [facility] [place] [address] PCP - General Family Medicine 09/18/15 EatonYomairaJenny, [facility] [address] [facility] [place] [address] Pharmacist Pharmacy 04/14/19 Sugar Cane Grower Relationship Specialty Start Date End Date Santo Love MD [address] [facility] [place] [address] PCP - General Family Medicine 09/18/15 EatonYomairaJenny, [facility] [address] [facility] [place] [address] Pharmacist Pharmacy 04/14/19 Team Status: Active Member Role Status Dates Dr. Santo Love MD Primary Care Provider Active Dr. Panchito Zavaleta MD Emergency Provider Active Dr. Tahir Rivas , Admit Provi avery, Referring Provider, Other Provider Active Dr. Cullen Ferrer , DO Attending Provider Active Team Status: Active Member Role Status Dates Dr. Santo Love MD Primary Care Provider Active Dr. Cullen Ferrer , DO Attending Provider Active Dr. Tahir Rivas , DO Referring Provider Active Team Status: Active Member Role Status Dates Dr. Santo Love MD Primary Care Provider Active Dr. Panchito Zavaleta MD Emergency Provider Active Dr. Vincent Schwab , DO Admit Provider, Other Provide r Active Dr. Gomez Johansen MD Other Provider Active Dr. Cullen Ferrer DO Attending Provider Active Dr. Tahir Rivas , Referring Provider Active Team Status: Active Member Role Status Dates Dr. Santo Love MD Primary Care Provider Active Dr. Panchito Zavaleta MD Emergency Provider Active Dr. Vincent Schwab , DO Admit Provider, Other Provide r Active Dr. Gomez Johansen MD Other Provider Active Dr. Nitish Sood MD Other Provider Active Dr. Cullen Ferrer DO Attending Provider Active Dr. Tahir Rivas , Referring Provider Active Team Status: Inactive Member Role Status Dates Dr. Santo Love MD Primary Care Provider, Referring Provider Active Dr. Cullen Ferrer DO Attending Provider Active Team Status: Inactive Member Role Status Dates Dr. Santo Love MD Primary Care Provider Active Dr. Cullen Ferrer DO Attending Provider, Referring Provider Active Sugar Cane Grower Relationship Specialty Start Date End Date Santo Love MD [address] [place] [address] PCP - General Family Medicine 09/18/15 Eaton [facility] [address] [place] [address] Pharmacist Pharmacy 04/14/19 Team Status: Active Member Role Status Dates Dr. Santo Love MD Primary Care Provider, Referring Provider Active Dr. Cullen Ferrer DO Attending Provider, Other Prov ider Active Sugar Cane Grower Relationship Specialty Start Date End Date Santo Love MD [address] [place] [address] PCP - General Family Medicine 09/18/15 [facility] [address] [place] [address] Pharmacist Pharmacy 04/14/19 Sugar Cane Grower Relationship Specialty Start Date End Date Santo Love MD [address] [place] [address] PCP - General Family Medicine 09/18/15 EatonJenny chatman, [facility] [address] [place] [address] Pharmacist Pharmacy 04/14/19 Sugar Cane Grower Relationship Specialty Start Date End Date Santo Love MD [address] [place] [address] PCP - General Family Medicine 09/18/15 EatonJenny chatman, [facility] [address] [place] [address] Pharmacist Pharmacy 04/14/19 Sugar Cane Grower Relationship Specialty Start Date End Date Santo Love MD [address] [place] [address] PCP - General Family Medicine 09/18/15 Jenny Brooke, [facility] [address] [place] [address] Pharmacist Pharmacy 04/14/19 Sugar Cane Grower Relationship Specialty Start Date End Date Santo Love MD [address] [place] [address] PCP - General Family Medicine 09/18/15 Jenny Brooke, [facility] [address] [place] [address] Pharmacist Pharmacy 04/14/19 Sugar Cane Grower Relationship Specialty Start Date End Date Santo Love MD [address] [place] [address] PCP - General Family Medicine 09/18/15 Jenny Brooke, [facility] [address] [place] [address] Pharmacist Pharmacy 04/14/19 Sugar Cane Grower Relationship Specialty Start Date End Date Santo Love MD [address] [place] [address] PCP - General Family Medicine 09/18/15 MendyJenny chatman, [facility] [address] [place] [address] Pharmacist Pharmacy 04/14/19 Sugar Cane Grower Relationship Specialty Start Date End Date Santo Love MD [address] [place] [address] PCP - General Family Medicine 09/18/15 Jenny Brooke, [facility] [address] [place] [address] Pharmacist Pharmacy 04/14/19 Sugar Cane Grower Relationship Specialty Start Date End Date Santo Love MD [address] [facility] [place] [address] PCP - General Family Medicine 09/18/15 Jenny Brooke, [facility] [address] [facility] [place] [address] Pharmacist Pharmacy 04/14/19 Sugar Cane Grower Relationship Specialty Start Date End Date Santo Love MD [address] [facility] [place] [address] PCP - General Family Medicine 09/18/15 Jenny Brooke, [facility] [address] [place] [address] Pharmacist Pharmacy 04/14/19 Sugar Cane Grower Relationship Specialty Start Date End Date Santo Love MD [address] [place] [address] PCP - General Family Medicine 09/18/15 Menyd Jenny, [facility] [address] [place] [address] Pharmacist Pharmacy 04/14/19 Sugar Cane Grower Relationship Specialty Start Date End Date Santo Love MD [address] [place] [address] PCP - General Family Medicine 09/18/15 Jenny Brooke, [facility] [address] [place] [address] Pharmacist Pharmacy 04/14/19 Sugar Cane Grower Relationship Specialty Start Date End Date Santo Love MD [address] [place] [address] PCP - General Family Medicine 09/18/15 Jenny Brooke, [facility] [address] [place] [address] Pharmacist Pharmacy 04/14/19 Raisa Maradiaga APRN.OBSTETRICIAN/GYNECOLOGIST [address] [place] [address] Raw Scales Operator Family Medicine 10/10/24 Juliana Davis APRN.OBSTETRICIAN/GYNECOLOGIST [address] [place] [address] Raw Scales Operator Family Medicine 10/10/24 Sugar Cane Grower Relationship Specialty Start Date End Date Santo Love MD [address] [place] [address] PCP - General Family Medicine 09/18/[address] [facility] [address] [place] [address] Pharmacist Pharmacy 04/14/19 Raisa Maradiaga APRN.OBSTETRICIAN/GYNECOLOGIST [address] [place] [address] Raw Scales Operator Family [facility] 10/10/24 Juliana Davis APRN.OBSTETRICIAN/GYNECOLOGIST [address] [place] [address] Raw Scales Operator Family [facility] 10/10/24 Sugar Cane Grower Relationship Specialty Start Date End Date Santo Love MD [address] [place] [address] PCP - General Family Medicine 09/18/15 [facility] [address] [place] [address] Pharmacist Pharmacy 04/14/19 Raisa Maradiaga APRN.OBSTETRICIAN/GYNECOLOGIST [address] [place] [address] Raw Scales Operator Family [facility] 10/10/24 Juliana Davis APRN.OBSTETRICIAN/GYNECOLOGIST [address] [place] [address] Raw Scales Operator Family [facility] 10/10/24 Sugar Cane Grower Relationship Specialty Start Date End Date Santo Love MD [address] [place] [address] PCP - General Family Medicine 09/18/[address] [facility] [address] [place] [address] Pharmacist Pharmacy 04/14/19 Raisa Maradiaga APRN.OBSTETRICIAN/GYNECOLOGIST [address] [place] [address] Raw Scales Operator [facility] 10/10/24 Juliana Davis APRN.OBSTETRICIAN/GYNECOLOGIST [address] [place] [address] Raw Scales Operator [facility] 10/10/24 Sugar Cane Grower Relationship Specialty Start Date End Date Santo Love MD [address] [place] [address] PCP - General Family Medicine 09/18/[address] [facility] [address] [place] [address] Pharmacist Pharmacy 04/14/19 Raisa Maradiaga APRN.OBSTETRICIAN/GYNECOLOGIST [address] [place] [address] Raw Scales Operator [facility] 10/10/24 Juliana Davis APRN.OBSTETRICIAN/GYNECOLOGIST [address] [place] [address] [facility] 10/10/24 Sugar Cane Grower Relationship Specialty Start Date End Date Santo Love MD [address] [place] [address] PCP - General Family Medicine 09/18/15 Jenny Brooke, [facility] [address] [place] [address] Pharmacist Pharmacy 04/14/19 Raisa Maradiaga APRN.OBSTETRICIAN/GYNECOLOGIST [address] [place] [address] [facility] 10/10/24 Juliana Davis APRN.OBSTETRICIAN/GYNECOLOGIST [address] [place] [address] [facility] 10/10/24 Sugar Cane Grower Relationship Specialty Start Date End Date Santo Love MD [address] [place] [address] PCP - General Family Medicine 09/18/[address] [facility] [address] [place] [address] Pharmacist Pharmacy 04/14/19 Raisa Maradiaga APRN.OBSTETRICIAN/GYNECOLOGIST [address] [place] [address] [facility] 10/10/24 Juliana Davis APRN.OBSTETRICIAN/GYNECOLOGIST [address] [place] [address] [facility] 10/10/24 Sugar Cane Grower Relationship Specialty Start Date End Date Santo Love MD [address] [place] [address] PCP - General Family Medicine 09/18/[address] [facility] [address] [place] [address] Pharmacist Pharmacy 04/14/19 Raisa Maradiaga APRN.OBSTETRICIAN/GYNECOLOGIST [address] [place] [address] [facility] 10/10/24 Juliana Davis APRN.OBSTETRICIAN/GYNECOLOGIST [address] [facility] [place] [address] Raw Scales Operator Family Medicine 10/10/24 Sugar Cane Grower Relationship Specialty Start Date End Date Santo Love MD [address] [place] [address] PCP - General Family Medicine 09/18/15 Eaton Jenny, [facility] [address] [place] [address] Pharmacist Pharmacy 04/14/19 Raisa Maradiaga FORMING MACHINE UPKEEP MECHANIC HELPER.OBSTETRICIAN/GYNECOLOGIST [address] [place] [address] Raw Scales Operator Family [facility] 10/10/24 Juliana Davis APRN.OBSTETRICIAN/GYNECOLOGIST [address] [facility] [place] [address] Raw Scales Operator [facility] 10/10/24 Sugar Cane Grower Relationship Specialty Start Date End Date Santo Love MD [address] [place] [address] PCP - General Family Medicine 09/18/15 Eaton Jenny, [facility] [address] [place] [address] Pharmacist Pharmacy 04/14/19 Raisa Maradiaga FORMING MACHINE UPKEEP MECHANIC HELPER.OBSTETRICIAN/GYNECOLOGIST [address] [place] [address] Raw Scales Operator Family Medicine 10/10/24 Juliana Davis APRN.OBSTETRICIAN/GYNECOLOGIST [address] [facility] [place] [address] Raw Scales Operator Family Medicine 10/10/24 Sugar Cane Grower Relationship Specialty Start Date End Date Santo Love MD [address] [place] [address] PCP - General Family Medicine 09/18/[address] [facility] [address] [place] [address] Pharmacist Pharmacy 04/14/19 Raisa Maradiaga, FORMING MACHINE UPKEEP MECHANIC HELPER.OBSTETRICIAN/GYNECOLOGIST [address] [place] [address] Raw Scales Operator Family [facility] 10/10/24 Juliana Davis FORMING MACHINE UPKEEP MECHANIC HELPER.OBSTETRICIAN/GYNECOLOGIST [address] [place] [address] Raw Scales Operator [facility] 10/10/24 Sugar Cane Grower Relationship Specialty Start Date End Date Santo Love MD [address] [place] [address] PCP - General Family Medicine 09/18/[address] [facility] [address] [place] [address] Pharmacist Pharmacy 04/14/19 Raisa Maradiaga, FORMING MACHINE UPKEEP MECHANIC HELPER.OBSTETRICIAN/GYNECOLOGIST [address] [place] [address] Raw Scales Operator Family Medicine 10/10/24 Juliana Davis FORMING MACHINE UPKEEP MECHANIC HELPER.OBSTETRICIAN/GYNECOLOGIST [address] [place] [address] Raw Scales Operator [facility] 10/10/24 Sugar Cane Grower Relationship Specialty Start Date End Date Santo Love MD [address] [place] [address] PCP - General Family Medicine 09/18/15 Jenny Brooke RPh [address] [place] [address] Pharmacist Pharmacy 04/14/19 Raisa Maradiaga APRN.OBSTETRICIAN/GYNECOLOGIST [address] [place] [address] Raw Scales Operator Family Medicine 10/10/24 Juliana Davis APRN.OBSTETRICIAN/GYNECOLOGIST [address] [place] [address] Raw Scales Operator Family Medicine 10/10/24 Sugar Cane Grower Relationship Specialty Start Date End Date Santo Love MD [address] [place] [address] PCP - General Family Medicine 09/18/[address] [facility] [address] [place] [address] Pharmacist Pharmacy 04/14/19 Raisa Maradiaga APRN.OBSTETRICIAN/GYNECOLOGIST [address] [place] [address] Raw Scales Operator Family Medicine 10/10/24 Juliana Davis APRN.OBSTETRICIAN/GYNECOLOGIST [address] [place] [address] Raw Scales Operator Family Medicine 10/10/24 Sugar Cane Grower Relationship Specialty Start Date End Date Santo Love MD [address] [place] [address] PCP - General Family Medicine 09/18/[address] [facility] [address] [place] [address] Pharmacist Pharmacy 04/14/19 Raisa Maradiaga APRN.OBSTETRICIAN/GYNECOLOGIST [address] [place] [address] Raw Scales Operator Family Medicine 10/10/24 Juliana Davis APRN.OBSTETRICIAN/GYNECOLOGIST [address] [place] [address] Raw Scales Operator Family Medicine 10/10/24 Sugar Cane Grower Relationship Specialty Start Date End Date Santo Love MD [address] [place] [address] PCP - General Family Medicine 09/18/15 Jenny Brooke, [facility] [address] [place] [address] Pharmacist Pharmacy 04/14/19 Raisa Maradiaga APRN.OBSTETRICIAN/GYNECOLOGIST [address] [place] [address] Raw Scales Operator Family Medicine 10/10/24 Juliana Davis APRN.OBSTETRICIAN/GYNECOLOGIST [address] [place] [address] Raw Scales Operator Family Medicine 10/10/24 Sugar Cane Grower Relationship Specialty Start Date End Date Santo Love MD [address] [place] [address] PCP - General Family Medicine 09/18/15 Jenny Brooke, [facility] [address] [place] [address] Pharmacist Pharmacy 04/14/19 Raisa Maradiaga APRN.OBSTETRICIAN/GYNECOLOGIST [address] [place] [address] Raw Scales Operator Family Medicine 10/10/24 Juliana Davis APRN.OBSTETRICIAN/GYNECOLOGIST [address] [place] [address] [facility] 10/10/24 Sugar Cane Grower Relationship Specialty Start Date End Date Santo Love MD [address] [place] [address] PCP - General Family Medicine 09/18/[address] [facility] [address] [place] [address] Pharmacist Pharmacy 04/14/19 Raisa Maradiaga APRN.OBSTETRICIAN/GYNECOLOGIST [address] [place] [address] [facility] 10/10/24 Juliana Davsi APRN.OBSTETRICIAN/GYNECOLOGIST [address] [place] [address] [facility] 10/10/24 Sugar Cane Grower Relationship Specialty Start Date End Date Santo Love MD [address] [place] [address] PCP - General Family Medicine 09/18/[address] [facility] [address] [place] [address] Pharmacist Pharmacy 04/14/19 Raisa Maradiaga APRN.OBSTETRICIAN/GYNECOLOGIST [address] [place] [address] [facility] 10/10/24 Juliana Davis APRN.OBSTETRICIAN/GYNECOLOGIST [address] [place] [address] Raw Scales Operator Family Medicine 10/10/24 Sugar Cane Grower Relationship Specialty Start Date End Date Santo Love MD [address] [place] [address] PCP - General Family Medicine 09/18/15 [facility] [address] [place] [address] Pharmacist Pharmacy 04/14/19 Raisa Maradiaga FORMING MACHINE UPKEEP MECHANIC HELPER.OBSTETRICIAN/GYNECOLOGIST [address] [place] [address] Raw Scales Operator Family [facility] 10/10/24 Juliana Davis FORMING MACHINE UPKEEP MECHANIC HELPER.OBSTETRICIAN/GYNECOLOGIST [address] [facility] [place] [address] Raw Scales Operator Family [facility] 10/10/24 Sugar Cane Grower Relationship Specialty Start Date End Date Santo Love MD [address] [place] [address] PCP - General Family Medicine 09/18/15 [facility] [address] [place] [address] Pharmacist Pharmacy 04/14/19 Raisa Maradiaga FORMING MACHINE UPKEEP MECHANIC HELPER.OBSTETRICIAN/GYNECOLOGIST [address] [place] [address] Raw Scales Operator Family Medicine 10/10/24 Juliana Davis APRN.OBSTETRICIAN/GYNECOLOGIST [address] [place] [address] Raw Scales Operator Family Medicine 10/10/24 Sugar Cane Grower Relationship Specialty Start Date End Date Santo Love MD [address] [place] [address] PCP - General Family Medicine 09/18/15 Jenny Brooke RPh [address] [facility] [place] [id number] Pharmacist Pharmacy 04/14/19 Raisa Maradiaga APRN.OBSTETRICIAN/GYNECOLOGIST [address] [place], [place] [address] [facility] 10/10/24 Juliana Davis APRN.OBSTETRICIAN/GYNECOLOGIST [address] [facility] [place] [id number] [facility] 10/10/24 Goals (unrecognized section and content) Goals may be documented in a n alternate section FOR RECORDS PERTAINING TO PATIENTS WHO ARE [...] BE BASED ON THE PRIMARY CLINICAL RECORDS. [facility] [employer] [facility]. provides no warranty or guarantee of the accuracy or completeness of information in this document.
[2025-10-08] MEDS: 0.9% Normal Saline (1000mL) 1,000 ML 125 ML IV (22:39)
[2025-10-08 22:55] LABS: Anion Gap 12 (5-15); BUN 24 mg/dL (4-19); BUN/Creat Ratio 26.4 RATIO (10-20); Calcium,Total 9.1 mg/dL (7.6-11.0); Carbon Dioxide 24.6 mmol/L (21.0-32.0); Chloride 104 mmol/L (98-108); Estimated Creatinine Clearance 46.34 ml/min (50-250); Glucose 373 mg/dL (70-99); Potassium 4.5 mmol/L (3.3-5.1)
--- NOTE | 2025-10-08 23:40 | HP.PCM.HOS_ITS ---
HPI - General General Date of Admission: 10/08/25 Date of Service: 10/08/25 Chief Complaint: Rectal bleeding started about 6 PM today HPI Narrative MALORIE KIRK, is a 80 F with history of recent colonoscopy polypectomy on October 02 in [facility] by Dr. Robles came to ER after she started having bright red rectal bleed multiple times since 6 PM today. Patient said she has a liquid bowel movement ongoing 5-6 bloody bowel movements since then. ED physician talked to Dr. Ferrer and advised admission and endoscopy. Patient denies dizziness or lightheadedness or vertigo but feels very weak. She stated she does not feel good. In ED, orthostatics were positive, dropped BP 151/61, heart rate 91/min in supine to 96/59, heart rate 71 on standing. Patient given 1 L of IV fluid in ED and further admitted. Denies abdominal pain, chest pain or shortness of breath. [facility] Medical History Anemia History of diverticulitis Non-smoker History of stress test Cardiology follow-up encounter On apixaban therapy Old myocardial infarction Liver mass 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 tachycardia Pure hypercholesterolemia Malignant neoplasm of right breast GERD (gastroesophageal reflux disease) Paroxysmal atrial fibrillation Type 2 diabetes mellitus Essential hypertension Presence of stent in coronary artery (~05/23/09) Atherosclerotic heart disease of [place] coronary artery without angina pectoris Home Medications ?Medication ?Instructions ?Recorded ?Last Taken ?Type cyanocobalamin (vitamin B-12) 1,000 mcg PO DAILY vitam in 09/06/19 12/14/23 History 1,000 mcg tablet deficient pravastatin 80 mg tablet 80 mg PO QHS cholesterol 03/2012/14/23 History pyridoxine (vitamin B6) 100 mg 100 mg PO DAILY vitamin deficient 09/06/19 12/14/23 History tablet nitroglycerin 0.4 mg sublingual 0.4 mg sublingual Q5-1 5M PRN chest 09/08/19 Unknown Rx tablet pain #90 tabs verapamil 300 mg capsule 24hr 300 mg PO QHS blood pres sure 08/06/23 12/14/[address],ext.release brimonidine 0.2 % eye drops 1 drp ophthalmic (eye) BID Glaucoma 12/11/23 12/14/23 History calcium 600 mg (as 1 tab PO DAILY vitamin defic ient 12/11/23 12/14/23 History carbonate)-vitamin D3 5 mcg (200 unit) tablet (Calcium 600 + D(3)) glipizide 2.5 mg tablet 2.5 mg PO BID 10/04/24 Unkno wn History insulin glargine 100 unit/mL (3 34 unit subcut QDAY Unknown History mL) subcutaneous pen (Lantus Solostar U-100 Insulin) losartan 100 mg tablet 100 mg PO DAILY 10/08/25 Unk nown History meclizine 12.5 mg tablet 12.5 mg PO Q6H dizziness 05/26 Unknown History ondansetron 4 mg disintegrating 4 mg PO Q6H nausea 05/26 Unknown History tablet sitagliptin phosphate 25 mg tablet 25 mg PO DAILY 05/26 Unknown History (Novuvia) Allergy/AdvReac Type Severity Reaction Status Date / Time alendronate sodium (From AdvReac Severe myalgias Verified 10/08/25 22:09 Fosamax) amoxicillin (Amoxicillin) AdvReac Nausea/Vom/ Verified 10/08/25 22:09 Diarrhea metformin AdvReac Nausea/Vom/ Verified 10/08/25 22:09 Diarrhea shellfish derived AdvReac Nausea/Vom/ Verified 10/08/25 22:09 Diarrhea Family History Mother Hypertension Diabetes CVA (cerebral vascular accident) CAD (coronary artery disease) Father History of DVT (deep vein thrombosis) Surgical History History of eyelid surgery (05/28/23) History of total abdominal hysterectomy S/P lumpectomy, right breast Presence of coronary angioplasty implant and graft (~05/23/09) Social History household members: family housing: house Smoking Status: Never smoker alcohol intake: never substance use type: does not use caffeine: Yes Type: coffee Number of servings: 2 ROS ROS Narrative Constitutional: Reports fatigue and weakness. No fever. HEENT: Reports systems reviewed and no addt'l complaints, except as documented Respiratory/Chest: No acute shortness of breath or respiratory distress or wheezing. CVS: No chest pain or shortness of breath. History of CAD status post 4 stents Gastrointestinal: No rectal bleed as described in HPI. History of peptic/gastric ulcer. Genitourinary: Denies burning urination or new urinary tract symptoms Musculoskeletal: Denies acute joint pain or limited range of motion. No acute injury Neurologic: Denies seizure-like symptoms. skin: No ulcer. No rash Endocrinology: Reports systems reviewed and no addt'l complaints, except as documented Hematologic/Lymphatic: Reports systems reviewed and no addt'l complaints, except as documented Rest 14 ROS are negative except as mentioned in HPI Vital Signs Vital Signs Vital Signs: 10/08/25 22:03 10/08/25 22:23 Temperature 98.4 F Temperature Source Temporal Pulse Rate 97 Pulse Rate [Lying] 85 Pulse Rate [Sitting (for 1 minute prior to obtaining)] 90 Pulse Rate [Standing (for 1 minute prior to obtaining)] 102 H Respiratory Rate 18 Blood Pressure 162/110 H Blood Pressure [Lying] 151/61 H Blood Pressure [Sitting (for 1 minute prior to obtaining)] 143/58 H Blood Pressure [Standing (for 1 minute prior to obtaining)] 96/59 L Blood Pressure Mean 127 Blood Pressure Mean [Lying] 91 Blood Pressure Mean [Sitting (for 1 minute prior to obtaining)] 86 Blood Pressure Mean [Standing (for 1 minute prior to obtaining)] 71 Pulse Ox 99 Oxygen Delivery Method Room Air Weight Weight: 156 lb 7 oz Body Mass Index (BMI) 26.8 Results Lab / Micro Data 10/08/25 22:20 10/08/25 22:20 Labs: Laboratory Results - last 24 hr 10/08/25 22:20: WBC 14.4 H, RBC 3.50 L, Hgb 10.6 L, Hct 33.1 L, MCV 94.6, MCH 30.3, MCHC 32.0, RDW Std Deviation 47.6 H, RDW Coeff of Emper[place] 13.7, Plt Count 246, MPV 10.6, Immature Gran % (Auto) 1.300 H, Neut % (Auto) 83.7 H, Lymph % (Auto) 7.8 L, [place] % (Auto) 6.3, Eos % (Auto) 0.3, Baso % (Auto) 0.6, Absolute Neuts (auto) 12.1 H, Absolute Lymphs (auto) 1.12, Nucleated RBC % 0, Sodium 140, Potassium 4.5, Chloride 104, Carbon Dioxide 24.6, Anion Gap 12, BUN 24 H, Creatinine 0.92, Estim Creat Clear Calc 46.34 L, Est GFR (MDRD) Non-Af 62, B UN/Creatinine Ratio 26.4 H, Glucose 373 H, Lactic Acid 2.6 H*, Calcium 9.1, Blood Type A POSITIVE, Antibody Screen NEGATIVE Assessment & Plan Assessment/Plan (1) Acute lower GI bleeding: (2) Orthostatic hypotension: PLAN: Plan This is a 80-year-old female is being admitted with acute lower GI bleed with orthostatic hypotension. 1. Orthostatic hypotension secondary to lower GI bleed: Patient is being admitted in PCU. IV fluid Ringer lactate 1 L bolus and then 125 mL/h for 2 L. Monitor BP and orthostatic in the morning about 10 AM. 2. Acute lower GI bleed bleed after recent polypectomy: GI is consulted. Pantoprazole for tomorrow IV daily. Plan for possible colonoscopy tomorrow 3. History of upper GI bleed from gastric ulcer: Patient was last admitted in December 2023 and had EGD. At that time she required PRBC transfusion. Last EGD on 02/04/2024 showed nonbleeding gastric ulcer and no gross lesions in first part of duodenum. 4. CAD status post stent, paroxysmal atrial fibrillation: Twelve-lead EKG ordered. On cardiac monitor technician, sinus rhythm. Currently not on anticoagulant but in previous admission she was on Eliquis. Hold antihypertensive medication. 5. Mild leukocytosis: Mild leukocytosis of 14.4 thousand. Immature Gran send 1.3%. Clinically patient does not show any signs and symptoms of infection. Probably reactive. Lactic acid 2.6 probably related to hypovolemia from diarrhea/dehydration/hypoperfusion. 6. Type 2 diabetes mellitus with hyperglycemia: Glucose in BMP is 373. ? BG 410 on admit. Home regimen of Lantus 20 units at night and Trulicity. Start Lantus 15 units at night with sliding-scale insulin with regular glucose checks while inpatient, adjust as needed. 8. Dyslipidemia: On pravastatin. 9. DVT prophylaxis: Pharmacological prophylaxis is contraindicated. Bilateral SCDs Living will/advanced directive/end of life care: Patient does have living will or advanced directive. Her daughter is power of mergers and acquisitions attorney for health after discussion of benefits/risks procedures involved with full code, DNR CC arrest and DNR CC, the patient opted for DNR CC arrest with no intubation Patient doesn't want artificial life support including intubation, tube feed, ventilator and/chest compression, central venous catheter, vasopressor and DC shock if needed Total time spent in [id number] encounter in discussion of advanced directive 17 minutes. Charges/Coding Visit Charges Inpatient E&M: 88392 Init Hosp L3 Procedures Hospitalists Procedures: 94072 Advncd Care Plan 30 Min
[2025-10-08 23:55] VITALS: BP 160/75; PULSE 70; RESP 16; TEMP 36.6; O2SAT 100
--- OUTSIDE RECORDS SUMMARY | 2025-10-08 23:56 | XMS RPT_ITS | CCD ---
Author Organization [facility] CliniSytx Care Team Providers Care Flash Welder Name Role Phone DANIEL MARCELO E Unavailable [...] Unavailable Santo Love MD Primary Care Provider [facility], Jenny Unavailable [facility], Keti Unavailable Santo Love MD Primary Care Provider [facility], Jenny Unavailable [facility], Keti Unavailable Santo Love MD Primary Care Provider [facility], Jenny Unavailable [facility], Keti Unavailable Santo Love MD Primary Care Provider [facility], Jenny [facility] Unavailable [facility], Keti Unavailable Dr. Santo Love Primary Care [...] Care Provider Friend, Cullen Attending Unavailable Tahir Rvias Referring Unavailable Kate, Santo Primary Care Unavailable Gomez Johansen Attending Unavailable Teralexis, Vincent Consulting Unavailable Tereletswei, Vincent Admitting Unavailable Paris, Santo Primary Care Unavailable BarrieNitish Consulting Unavailable Gomez Johansen Consulting Unavailable Warren, Rajeev Attending Unavailable Kate, Santo Referring Unavailable Paris, Santo Primary Care Unavailable Friend, Cullen Attending Unavailable Friend, Cullen Referring Unavailable Paris, Santo Primary Care Unavailable Mosteller, Tahir Admitting Unavailable Mosteller, Tahir Consulting Unavailable eller, Tahir Attending Unavailable Kate, Santo Primary Care Unavailable Mosteller, Tahir Attending Unavailable Mosteller, Tahir Admitting Unavailable Paris, Santo Primary Care Unavailable Gomez Johansen Attending Unavailable Tereletsky, Vincent Admitting Unavailable Kate, Santo Primary Care Unavailable Terleninky, Vincent Consulting Unavailable BarrieNitish Consulting Unavailable Jacques Fortune Attending Unavailable Jacques Fortune Referring Unavailable Paris, Santo Primary Care Unavailable Rob, Tahir Attending Unavailable Friend, Cullen Attending Unavailable Mosteller, Tahir Referring Unavailable Friend, Cullen Attending Unavailable Mosteller, Tahir Referring Unavailable Kate, Santo Referring Unavailable Roof BARREL CUTTER, Skyler Camarena Attending Unavailable Paris, Santo Primary Care Unavailable Warren, Mayo Attending Unavailable Warren, Rajeev Referring Unavailable Paris, Santo Primary Care Unavailable Warren, Mayo Attending Unavailable Paris, Santo Primary Care Unavailable Friend, Cullen Attending Unavailable FriendCullen Consulting Unavailable Paris, Santo Referring Unavailable Paris, Santo Primary Care Unavailable Friend, Cullen Attending Unavailable Kate, Santo Referring Unavailable Paris, Santo Primary Care Unavailable Friend, Cullen Attending Unavailable Kate, Santo Referring Unavailable Paris, Santo Primary Care Unavailable Friend, Cullen Attending Unavailable Mosteller, Tahir Referring Unavailable Kate, Santo Primary Care Unavailable Ashwini APPLICATION SERVICES MANAGER.Raisa LUIS Unavailable Suppan APPLICATION SERVICES MANAGER.Star LUISJuliana A Unavailable Suppparris APPLICATION SERVICES MANAGER.TOBY Juliana A Unavailable [phone] KATE, SANTO J Primary Care Unavailable RAISA MARADIAGA Attending Unavailable KATE, SANTO Evans Primary Care Unavailable RAISA MARADIAGA Referring Unavailable KATE, SANTO Evans Primary Care Unavailable KATE, SANTO Evans Referring Unavailable KATE, SANTO Evans Primary Care Unavailable JULIANA DAVIS Attending Unavailable SELF Referring Unavailable KATE, SANTO [...] SANTO Evans Referring Unavailable KATE, SANTO Evans Attending Unavailable KATE, SANTO Evans Primary Care Unavailable KATE, SANTO Evans Primary Care Unavailable RAISA MARADIAGA Referring Unavailable KATE, SANTO Evans Primary Care Unavailable RAISA MARADIAGA Attending Unavailable KATE, SANTO Evans Primary Care Unavailable Zari Sorenson Attending Unavailable KATE, SANTO Evans Referring Unavailable KATE, ASNTO Evans Primary Care Unavailable ELIZABETH ORETGA Attending Unavailable KATE, SANTO Evans Primary Care Unavailable RAISA MARADIAGA Attending Unavailable Allergies Allergy Classification Reported Allergen(s) Allergy Type Date of Onset Reaction(s) Facility Alendronate (1 source) Alendronate Drug Allergy 8 Other: See Comments [facility] Work Phone: metFORMIN (1 source) metFORMIN Drug Allergy 7 Diarrhea [facility] Work Phone: Penicillins (antibiotic) (1 source) Amoxicillin Drug Allergy 7 Diarrhea [facility] Work Phone: Shellfish (1 source) Shellfish Food Allergy 8 Diarrhea, Vomiting [facility] (20 sources) alendronate; Translations: [ALENDRONATE SODIUM] Drug Allergy 8 Other: See Comments [facility] Other [facility] (20 sources) amoxicillin; Translations: [AMOXICILLIN] Drug Allergy 7 Diarrhea [facility] Repository (20 sources) metFORMIN; Translations: [METFORMIN] Drug Allergy 7 Diarrhea [facility] Repository (20 sources) Shellfish; Translations: [SHELLFISH] Propensity to adverse reactions to food (disorder) 8 Diarrhea, Vomiting [facility] Other [facility] (7 sources) Shellfish; Translations: [shellfish derived] Propensity to adverse reactions 4 Nausea/Vom/Diar carissa [facility] Medications Current Medications Medication Drug Class(es) Dates [...] Comment on above: Take 1 capsule by [facility] daily. Dulaglutide (18 sources) GLP-1 Receptor [...] tablet Indications: Atherosclerosis of coronary artery of [place] heart without angina pectoris, unspecified vessel or [...] 1/2 hr before meal. polyethylene glycol 3350 070737 mg / potassium chloride 2970 mg / sodium bicarbonate 6740 mg / sodium chloride 5860 mg / sodium sulfate 61312 mg powder for oral solution (2 sources) [...] once daily. Take 1 capsule by mo [facility] daily at bedtime. vitamin b12 1 [...] Comment on above: [facility] two times a day with meals. fluticasone [...] on above: Take 1 capsule by mo [facility] once daily. 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] Onset: 7 Resolved: 4 01-10-2017 Episodic Other aftercare (1 source) care home (current) use of insulin; Translations: [Type 2 [...] Comment: Speci men Type: BLOOD SPECIMENOrdering Facility: [facility] Address: [address] [place] [address] Performed By: #### 5 7021-8 ####[facility] LABCLIA [id number] [place] [address] [place] Basophils/100 WBC (Bld) 1.0 % Normal [facility] Comment on above: Order Comment: Speci men Type: BLOOD SPECIMENOrdering Facility: [facility] Address: [address] [place] [address] Performed By: #### 5 7021-8 ####[facility] LABCLIA [id number] [place] [address] [place] Differential cell count method Nom (Bld) Auto Normal [facility] Comment on above: Order Comment: Speci men Type: BLOOD SPECIMENOrdering Facility: [facility] Address: [address] [place] [address] Performed By: #### 5 7021-8 ####[facility] LABCLIA [id number] [place] [address] [place] Eosinophils (Bld) [#/Vol] 0.17 10*3/uL Normal <0.46 [facility] Comment on above: Order Comment: Speci men Type: BLOOD SPECIMENOrdering Facility: [facility] Address: [address] [place] [address] Performed By: #### 5 7021-8 ####[facility] LABCLIA [id number] [place] [address] [place] Eosinophils/100 WBC (Bld) 1.9 % Normal [facility] Comment on above: Order Comment: Speci men Type: BLOOD SPECIMENOrdering Facility: [facility] Address: [address] [place] [address] Performed By: #### 5 7021-8 ####[facility] LABCLIA [id number] [place] [address] [place] Erythrocyte distribution width (RBC) [Ratio] 14.1 % Normal 11.5-15.0 [facility] Comment on above: Order Comment: Speci men Type: BLOOD SPECIMENOrdering Facility: [facility] Address: [address] [place] [address] Performed By: #### 5 7021-8 ####[facility] LABCLIA [id number] [place] [address] [place] Hematocrit (Bld) [Volume fraction] 41.4 % Normal 36.0-46.0 [facility] Comment on above: Order Comment: Speci men Type: BLOOD SPECIMENOrdering Facility: [facility] Address: [address] [place] [address] Performed By: #### 5 7021-8 ####[facility] LABCLIA [id number] [place] [address] [place] Hemoglobin (Bld) [Mass/Vol] 13.6 g/dL Normal 11.5-15.5 [facility] Comment on above: Order Comment: Speci men Type: BLOOD SPECIMENOrdering Facility: [facility] Address: [address] [place] [address] Performed By: #### 5 7021-8 ####[facility] LABCLIA [id number] [place] [address] [place] Immature granulocytes (Bld) [#/Vol] 0.07 10*3/uL Normal <0.10 [facility] Comment on above: Order Comment: Speci men Type: BLOOD SPECIMENOrdering Facility: [facility] Address: [address] [place] [address] Performed By: #### 5 7021-8 ####[facility] LABCLIA [id number] [place] [address] [place] Immature granulocytes/100 WBC (Bld) 0.8 % Normal [facility] Comment on above: Order Comment: Speci men Type: BLOOD SPECIMENOrdering Facility: [facility] Address: [address] [place] [address] Performed By: #### 5 7021-8 ####[facility] LABCLIA [id number] [place] [address] [place] Lymphocytes (Bld) [#/Vol] 1.80 10*3/uL Normal 1.00-4.00 [facility] Comment on above: Order Comment: Speci men Type: BLOOD SPECIMENOrdering Facility: [facility] Address: [address] [place] [address] Performed By: #### 5 7021-8 ####[facility] LABCLIA [id number] [address] [place] Lymphocytes/100 WBC (Bld) 19.8 % Normal [facility] Comment on above: Order Comment: Speci men Type: BLOOD SPECIMENOrdering Facility: [facility] Address: [address] [place] [address] Performed By: #### 5 7021-8 ####[facility] LABCLIA [id number] [place] [address] [place] MCH (RBC) [Entitic mass] 30.6 pg Normal 26.0-34.0 [facility] Comment on above: Order Comment: Speci men Type: BLOOD SPECIMENOrdering Facility: [facility] Address: [address] [place] [address] Performed By: #### 5 7021-8 ####[facility] LABCLIA [id number] [place] [address] [place] MCHC (RBC) [Mass/Vol] 32.9 g/dL Normal 30.5-36.0 [facility] Comment on above: Order Comment: Speci men Type: BLOOD SPECIMENOrdering Facility: [facility] Address: [address] [place] [address] Performed By: #### 5 7021-8 ####[facility] LABCLIA [id number] [place] [address] [place] MCV (RBC) [Entitic vol] 93.2 fL Normal 80.0-100.0 [facility] Comment on above: Order Comment: Speci men Type: BLOOD SPECIMENOrdering Facility: [facility] Address: [address] [place] [address] Performed By: #### 5 7021-8 ####[facility] LABCLIA [id number] [place] [address] [place] Monocytes (Bld) [#/Vol] 0.84 10*3/uL Normal <0.87 [facility] Comment on above: Order Comment: Speci men Type: BLOOD SPECIMENOrdering Facility: [facility] Address: [address] [place] [address] Performed By: #### 5 7021-8 ####[facility] LABCLIA [id number] [place] [address] [place] Monocytes/100 WBC (Bld) 9.2 % Normal [facility] Comment on above: Order Comment: Speci men Type: BLOOD SPECIMENOrdering Facility: [facility] Address: [address] [place] [address] Performed By: #### 5 7021-8 ####[facility] LABCLIA [id number] [place] [address] [place] Neutrophils (Bld) [#/Vol] 6.14 10*3/uL Normal 1.45-7.50 [facility] Comment on above: Order Comment: Speci men Type: BLOOD SPECIMENOrdering Facility: [facility] Address: [address] [place] [address] Performed By: #### 5 7021-8 ####[facility] LABCLIA [id number] [place] [address] [place] Neutrophils/100 WBC (Bld) 67.3 % Normal [facility] Comment on above: Order Comment: Speci men Type: BLOOD SPECIMENOrdering Facility: [facility] Address: [address] [place] [address] Performed By: #### 5 7021-8 ####[facility] LABCLIA [id number] [place] [address] [place] Nucleated RBC (Bld) [#/Vol] 10*3/uL Normal <0.01 [facility] Comment on above: Order Comment: Speci men Type: BLOOD SPECIMENOrdering Facility: [facility] Address: [address] [place] [address] Performed By: #### 5 7021-8 ####[facility] LABCLIA [id number] [place] [address] [place] Nucleated RBC/100 WBC (Bld) [Ratio] 0.0 /100 WBC Normal [facility] Comment on above: Order Comment: Speci men Type: BLOOD SPECIMENOrdering Facility: [facility] Address: [address] [place] [address] Performed By: #### 5 7021-8 ####[facility] LABCLIA [id number] [place] [address] [place] Platelet mean volume (Bld) [Entitic vol] 10.4 fL Normal 9.0-12.7 [facility] Comment on above: Order Comment: Speci men Type: BLOOD SPECIMENOrdering Facility: [facility] Address: [address] [place] [address] Performed By: #### 5 7021-8 ####[facility] LABCLIA [id number] [place] [address] [place] Platelets (Bld) [#/Vol] 253 10*3/uL Normal 150-400 [facility] Comment on above: Order Comment: Speci men Type: BLOOD SPECIMENOrdering Facility: [facility] Address: [address] [place] [address] Performed By: #### 5 7021-8 ####[facility] LABCLIA [id number] [place] [address] [place] RBC (Bld) [#/Vol] 4.44 10*6/uL Normal 3.90-5.20 [facility] Comment on above: Order Comment: Speci men Type: BLOOD SPECIMENOrdering Facility: [facility] Address: [address] [place] [address] Performed By: #### 5 7021-8 ####[facility] LABCLIA [id number] [place] [address] [place] WBC (Bld) [#/Vol] 9.11 10*3/uL Normal 3.70-11.00 [facility] Comment on above: Order Comment: Speci men Type: BLOOD SPECIMENOrdering Facility: [facility] Address: [address] [place] [address] Performed By: #### 5 7021-8 ####[facility] LABCLIA [id number] [address] [place] HbA1c (Bld)on 08-23-2025 Average glucose Estimated from glycated hemoglobin (Bld) [Mass/Vol] 174 mg/dL Normal [facility] Comment on above: Order Comment: Jennie metz Type: BLOOD SPECIMENOrdering Facility: [facility] Address: [address] [place] [address] Result Comment: eAG: (Estimated average glucose) is a calculated value from HgbA1c and is player services representative of the average blood glucose level in the last 2-3 month period. Performed By: #### 5 5454-3 ####[facility] LABIA [id number] [address] [place] HbA1c (Bld) [Mass fraction] 7.7 % High 4.3-5.6 [facility] Comment on above: Order Comment: Jennie metz Type: BLOOD SPECIMENOrdering Facility: [facility] Address: [address] [place] [address] Result Comment: Amer [place] Diabetes Association guidelines indicate that patients with HgbA1c in the range 5.7-6.4% are at increased risk for development of diabetes, and intervention by lifestyle modification may be beneficial. HgbA1c greater or equal to 6.5% is considered diagnostic of diabetes. Performed By: #### 5 5454-3 ####[facility] LABCLIA [id number] [place] [id number] [place] Hepatic function 2000 panelo n 08-23-2025 Albumin [Mass/Vol] 4.3 g/dL Normal 3.9-4.9 [facility] Comment on above: Order Comment: Jennie metz Type: BLOOD SPECIMENOrdering Facility: [facility] Address: [address] [place] [address] Performed By: #### 2 4325-3, 05971-5 ####[facility] LABCLIA [id number] [place] [address] [place] ALP [Catalytic activity/Vol] 94 U/L Normal 34-123 [facility] Comment on above: Order Comment: Speci men Type: BLOOD SPECIMENOrdering Facility: [facility] Address: [address] [place] [address] Performed By: #### 2 4325-3, 90028-0 ####[facility] LABCLIA [id number] [place] [address] [place] ALT [Catalytic activity/Vol] 19 U/L Normal 7-38 [facility] Comment on above: Order Comment: Speci men Type: BLOOD SPECIMENOrdering Facility: [facility] Address: [address] [place] [address] Performed By: #### 2 4325-3, 11285-4 ####[facility] LABCLIA [id number] [place] [address] [place] AST [Catalytic activity/Vol] 23 U/L Normal 13-35 [facility] Comment on above: Order Comment: Speci men Type: BLOOD SPECIMENOrdering Facility: [facility] Address: [address] [place] [address] Performed By: #### 2 4325-3, 27723-6 ####[facility] LABCLIA [id number] [place] [address] [place] Bilirubin [Mass/Vol] 0.4 mg/dL Normal 0.2-1.3 [facility] Comment on above: Order Comment: Speci men Type: BLOOD SPECIMENOrdering Facility: [facility] Address: [address] [place] [address] Performed By: #### 2 4325-3, 96255-9 ####[facility] LABCLIA [id number] [place] [address] [place] Bilirubin.conjugated [Mass/Vol] 0.1 mg/dL Normal <0.3 [facility] Comment on above: Order Comment: Speci men Type: BLOOD SPECIMENOrdering Facility: [facility] Address: [address] [place] [address] Performed By: #### 2 4325-3, 78011-5 ####[facility] LABCLIA [id number] [place] [address] [place] Protein [Mass/Vol] 7.2 g/dL Normal 6.3-8.0 [facility] Comment on above: Order Comment: Speci men Type: BLOOD SPECIMENOrdering Facility: [facility] Address: [address] [place] [address] Performed By: #### 2 4325-3, 02814-2 ####[facility] LABCLIA [id number] [place] [address] [place] Iron and Iron binding capaci ty panelon 08-23-2025 Iron [Mass/Vol] 116 ug/dL Normal 41-186 [facility] Comment on above: Order Comment: Speci men Type: BLOOD SPECIMENOrdering Facility: [facility] Address: [address] [place] [address] Performed By: #### 2 4325-3, 04672-3 ####[facility] LABCLIA [id number] [place] [address] [place] Iron binding capacity [Mass/Vol] 332 ug/dL Normal 232-386 [facility] Comment on above: Order Comment: Speci men Type: BLOOD SPECIMENOrdering Facility: [facility] Address: [address] [place] [address] Performed By: #### 2 4325-3, 36237-5 ####[facility] LABCLIA [id number] [place] [id number] [place] Iron/TIBC [Molar ratio] 34.9 % Normal 15.0-57.0 [facility] Comment on above: Order Comment: Speci men Type: BLOOD SPECIMENOrdering Facility: [facility] Address: [address] [place] [address] Performed By: #### 2 4325-3, 57477-9 ####[facility] LABCLIA [id number] [place] [id number] [facility] CNOVon 08-19-2025 CNOV Office Visit (FAMPWS ) KELLIE DOZIER ([id number]) 1945 F NFR Date Time Provider Department 08/19/25 10:00 AM [facility] During your visit today, we recorded [...] clinical practice. J Neurol. 2023Apr 05. doi: 10.1007/[id number]. Epub ahead of print. PMID: [id number]. Santo Love MD 08/19/2025 11:03 AM Signed [...] PCP - General (Family Medicine) Raisa Maradiaga APRN.PEDICURIST as Leather Scraper (Family Medicine) Juliana Davis APRN.PEDICURIST as Leather Scraper (Family Medicine) Dr Guerrero, optho. Heart group [...] DATE OF EXAM: Jul 06 2025 10:27AM [facility] 0582 - [place] SCREENING W SANCHEZ / PROCEDURE REASON: Encounter for screening mammogram for malignant neoplasm of breast * * * * Physician Interpretation * * * * RESULT: [place] [address] [place] [id number] #[id number] - [place] SCREENING W SANCHEZ HISTORY: 80 [...] Hunter Dye M.D. Electronically signed on: 07/07/2025 Manager Adult: JEANNETTE Transcribe Date/Time: Jul 06 2025 10:16A Dictated by: HUNTER DYE MD This examination was interpreted and the report reviewed and electronically signed by: HUNTER DYE MD on Jul 07 2025 9:47AM EST [id number] Normal [facility] CNPNon 07-05-2025 CNPN Telephone (4CQ) KELLIE DOZIER ([id number]) 1945 F NFR Date Time Provider Department 07/05/25 [place] 4CQ During your visit today, we recorded the following information about you: Deborah Viera 07/05/2025 9:12 AM Signed Patient is scheduled tomorrow 07/06/2025 for her Screening Mammogram. Can you please place Mammogram order? JARVIS Garcia Christy, APRN.CNP 07/05/2025 3:11 PM Signed Order placed. 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]01/10/2017 07/13/2024 Persistent [...] MARIA ISABEL TRONCOSO on 07/05/25 [facility] CNOVon 05-29-2025 CNOV Office Visit (FAMPWS ) KELLIE DOZIER ([id number]) 1945 F NFR Date Time Provider Department 05/29/25 11:40 AM [facility] During your visit today, we recorded the following information about you: Pulse Blood pressure Weight 66/minute 124/69 70.3 kg Juliana Davis APRN.[facility] 05/29/2025 11:51 AM Signed This is a [...] percutaneous left heart catheterization 06/24/2011 done at [place] Hydronephrosis, bilateral 12/16/2023 Hydroureter Lung nodule 01/2024 [...] of Onset (more content not included)... 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 Calderon. RN transferred phone to hi. 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 Author Type: Registered Nurse Type: [id number] Filed: 05/09/2025 10:29 Note Text: The patient received a copy of Colonoscopy discharge instructions that contain information for how to contact the physician who performed the procedure and when to seek medical care. Normal [facility] Colonoscopyon 05-09-2025 Colonoscopy Dam[facility] Gastrointestinal Endoscopy Patient Name: Kellie Dozier Procedure [...] previous diet. Procedure Code(s): --- Professional --- 14291, Colonoscopy, flexible; with biopsy, single or multiple 30894, 59, Moderate sedation services provided by the same physician or other qualified health attending ambulatory care performing the diagnostic or therapeutic service that [...] - [place] Colonoscopy Study observatio non 05-09-2025 [facility] Gastrointestinal Endoscopy Patient Name: Kellie Dozier [...] pending p (more content not included)... PROVATION [facility] Radiology Study observation (narrative) [facility] HISTORY PHYSICALon HISTORY PHYSICAL HNO ID: [id number] Author: ZARI SORENSON MD Service: General Surgery [...] T2DM, MARYCHUY and osteopenia. Kellie follows with [facility] for A.Fib, HTN, HLD AND CAD s/p stent x 4 (2008). Last OV 10/25, Last ECHO 07/26 EF: 55%. She denies CP, SOB, dizziness, palpitations, syncope, edema, recent hospitalizations Kellie has undergone prior endoscopy. Last colonoscopy was 09/[address] Calderon at [facility]. Sedation: Midazolam 3 mg IV, Fentanyl [...] percutaneous left heart catheterization 06/24/2011 done at [facility], bilateral 12/16/2023 Hydroureter Lung nodule 01/2024 [...] Comment: Jennie metz Type: TISSUE SPECIMENOrdering Facility: [facility] Address: [address] [place] [address] Result Comment: Linda sanchez Developed Test (LDT) Disclaimer: Performance characteristics of immunohistochemical, immunofluorescent, and chromogenic in-situ hybridization tests have been determined by the performing laboratory within [facility]'s [facility] Pathology and Laboratory Medicine Department ([facility], [facility], [facility], [facility], [facility], [facility], or [facility]) in a manner consistent with CLIA requirements. One or more of these tests may not have been cleared or approved by the FDA. RT-PLM is regulated under CLIA as qualified to perform high-complexity testing. These tests are used for clinical purposes. These should not be regarded as investigational or for research. Positive and negative controls stain appropriately. Performed By: #### 6 6121-5 ####[facility] LABCLIA [id number] [place] [address] [place] CASE REPORT Normal [facility] Comment on above: Order Comment: Jennie metz Type: TISSUE SPECIMENOrdering Facility: [facility] Address: [address] [place] [address] Result Comment: Surg [facility] Pathology Report Case: [id number] Authorizing Provider: Zari Sorenson MD Collected: 05/09/2025 10:10 AM Ordering Location: Ambulatory Surgery Received: 05/09/2025 04:30 PM Pathologist: Rod Reis MD Specimen: Colon, Cecum, Biopsy, Cecal mass bx Performed By: #### 6 6121-5 ####[facility] LABCLIA [id number] [address] OF [place] DIAGNOSIS COMMENT In the context of a mass, superficial biopsies may not be player services representative of the entire lesion. Normal [facility] Comment on above: Order Comment: Jennie metz Type: TISSUE SPECIMENOrdering Facility: [facility] Address: [address] [place] [address] Performed By: #### 6 6121-5 ####[facility] LABCLIA [id number] [address] STATES OF [place] FINAL DIAGNOSIS Normal [facility] Comment on above: Order Comment: Speci men Type: TISSUE SPECIMENOrdering Facility: [facility] Address: [address] [place] [address] Result Comment: Claudy Colby namcesar, cecum, biopsy: - Fragments of tubular adenoma, see comment SR/JR 05/10/2025 at 1514 EDT Performed By: #### 6 6121-5 ####[facility] LABCLIA [id number] [address] STATES OF [facility] FINAL PERFORMING LAB Normal [facility] Comment on above: Order Comment: Speci men Type: TISSUE SPECIMENOrdering Facility: [facility] Address: [address] [place] [address] Result Comment: Diag nostic interpretation performed at: [facility], [address] [place] [address] CLIA# [id number] Busboy: Luigi Vu MD Performed By: #### 6 6121-5 ####[facility] LABCLIA [id number] [address] STATES OF [place] GROSS DESCRIPTION Normal [facility] Comment on above: Order Comment: Speci men Type: TISSUE SPECIMENOrdering Facility: [facility] Address: [address] [place] [address] Result Comment: Claudy krueger, Cecum, Biopsy Received in formalin are multiple pieces of sylvester, soft tissue aggregating to 1.5 x 0.4 x 0.3 cm. Totally submitted in one cassette. DL May 10, 2025 2:22 AM Gross examination performed at [facility], [address] [place] [address] Performed By: #### 6 6121-5 ####[facility] ZHENG [id number] [address] OF [facility] CNOVon 05-04-2025 CNOV Office Visit (GENSWS ) YELENAKELLIE Armand ([id number]) 1945 F NFR Date Time Provider Department 05/04/25 10:30 AM ELIZABETH ORTEGA During your visit today, we recorded the following information about you: Pulse Respiration Blood pressure Weight 62/minute 14/minute 146/70 70.5 kg Elizabeth Ortega APRN.PEDICURIST 05/04/2025 10:49 AM Signed HISTORY AND PHYSICAL [...] T2DM, MARYCHUY and osteopenia. Kellie follows with [facility] for A.Fib, HTN, HLD AND CAD s/p stent x 4 (2008). Last OV 10/25, Last ECHO 07/26 EF: 55%. She denies CP, SOB, dizziness, palpitations, syncope, edema, recent hospitalizations Kellie has undergone prior endoscopy. Last colonoscopy was 09/[address] Calderon at [facility]. Sedation: Midazolam 3 mg IV, Fentanyl [...] percutaneous left heart catheterization 06/24/2011 done [place] Hydronephrosis, bilateral 12/16/2023 Hydroureter Lung nodule 01/2024 [...] [place] CNOVon 05-01-2025 [facility] KELLIE [facility] ([id number]) 1945 F NFR Date Time Provider Department 05/01/25 1:40 PM RAISA MARADIAGA FAMEvelinWS During your visit today, we recorded the following information about you: Pulse Respiration Blood pressure Weight 66/minute 16/minute 179/65 70.8 kg Raisa Maradiaga APRN.PEDICURIST 05/01/2025 8:16 PM Signed This is a [...] percutaneous left heart [facility], [facility] 12/16/2023 Hydroureter Lung nodule 01/2024 [...] COLON SURGERY HX Diverticular disease COLONOSCOPY 2006 [facility] COLONOSCOPY 09/12/2014 no polyps, repeat due [...] Comment: Joshgeovanna isaías Type: BLOOD SPECIMENOrdering Facility: [facility] Address: [address] [place] [address] Result Comment: eAG: (Estimated average glucose) is a calculated value from HgbA1c and is player services representative of the average blood glucose level in the last 2-3 month period. Performed By: #### 5 5454-3 ####[facility] LABIA [id number] [place] [address] [place] HbA1c (Bld) [Mass fraction] 8.1 % High 4.3-5.6 [facility] Comment on above: Order Comment: Jennie metz Type: BLOOD SPECIMENOrdering Facility: [facility] Address: [address] [place] [address] Result Comment: Amer ican Diabetes Association guidelines indicate that patients with HgbA1c in the range 5.7-6.4% are at increased risk for development of diabetes, and intervention by lifestyle modification may be beneficial. HgbA1c greater or equal to 6.5% is considered diagnostic of diabetes. Performed By: #### 5 5454-3 ####[facility] LABIA [id number] [address] OF [facility] CNOVon 03-07-2025 [facility] KELLIE DOZIER ([id number]) 1945 F NFR Date Time Provider Department 03/07/25 11:00 AM RAISA MARADIAGA During your visit today, we recorded the following information about you: Pulse Respiration Blood pressure 55/minute 16/minute 133/62 Raisa Maradiaga APRN.PEDICURIST 03/07/2025 11:18 AM Signed Continue taking your losartan by splitting the 50-mg tablets to take 1? tablets daily as prescribed. Continue checking your blood sugar levels each morning and at night so we can better track your readings. -Send me a [employer] message with the medication you are referring to. Raisa Maradiaga APRN.PEDICURIST 03/07/2025 12:51 PM Signed This is a [...] sitagliptin in December; previously took it in 1261-3226. - Currently taking glipizide 2.5 mg BID. [...] percutaneous left heart catheter[facility] 06/24/2011 [facility], bilateral 12/16/2023 Hydroureter Lung nodule 01/2024 [...] <= 20 mg/L (U) [Mass/Vol] mg/L mg/L [facility] Albumin/Creatinine (U) [Mass ratio] [facility] Comment on above: Not calculated Adult Male [...] 9.7 mg/dL Low 20.0 - 300.0 mg/dL [facility] Interpretation and review of laboratory results Abnormal [facility] ALBUMIN/CREATININE RATIO, UR INEon 02-07-2025 Albumin DL <= 20 mg/L (U) [Mass/Vol] mg/dL Normal [facility] Comment on above: Order Comment: Speci men Type: URINE SPECIMENOrdering Facility: [facility] Address: [address] [place] [address] Performed By: #### U ACR ####[facility] LABCLIA [id number] [address] OF [facility] Albumin/Creatinine (U) [Mass ratio] Normal [facility] Comment on above: Order Comment: Speci men Type: URINE SPECIMENOrdering Facility: [facility] Address: [address] [place] [address] Result Comment: Not calculated Adult Male and Female Nephrotic Criteria: <30 mg/g is considered normal to mildly increased 30-300 mg/g is considered moderately increased >300 mg/g is considered severely increased KDIGO. (2013). KDIGO 2012 Clinical Practice Guideline for the Evaluation and Management of Chronic Kidney Disease. Official Journal of the International Society of Nephrology, 3(1), 1-150. Performed By: #### U ACR ####[facility] LABCLIA [id number] [address] [place] Creatinine (U) [Mass/Vol] 9.7 mg/dL Low 20.0-300.0 [facility] Comment on above: Order Comment: Speci men Type: URINE SPECIMENOrdering Facility: [facility] Address: [address] [place] [address] Performed By: #### U ACR ####[facility] LABCLIA [id number] [place] [address] [place] CNOVon 02-07-2025 CNOV Office Visit (FAMPWS ) KELLIE DOZIER ([id number]) 1945 F NFR Date Time Provider Department 02/07/25 11:00 AM [facility]AG[facility] During your visit today, we recorded [...] percutaneous left heart [facility] 12/16/2023 Hydroureter Lung nodule 01/2024 [...] bedtime. cyanoc (more content not included)... Normal [facility] 02-07-2025 RAEANN Telephone (ARABELLA) KELLIE DOZIER ([id number]) 1945 F NFR Date Time Provider Department 02/07/25 RAISA MARADIAGA During your visit today, we recorded the following information about you: Raisa Maradiaga APRN.CNP 02/07/2025 6:09 PM Signed Can we please fax today's office note to [facility] so they are aware of recent medication changes. Raisa Maradiaga APRN.PEDICURIST Brittney Hinton LPN 02/08/2025 11:00 AM Signed OV note faxed to [facility]. Brittney Hinton LPN Allergies As [...] [D12.6] 10/17/2011 10/02/2022 Diverticulitis [K57.92] 10/24/2011 10/02/2022 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 [Z79.01]01/10/2017 07/13/2024 Persistent [...] by BRITTNEY HINTON on 02/08/25 [facility] CNPN [facility] KELLIE DOZIER ([id number]) 1945 F NFR Date Time Provider Department 02/07/25 RAISA [facility]IAGA [facility] During your visit today, we recorded the following information about you: Raisa Maradiaga APRN.PEDICURIST 02/07/2025 6:10 PM Signed Enrico Pate, Is there anyway to check to see if Kellie is a candidate for any manufacture programs for either a GLP1 (ie trulicity, ozempic, mounjaro) or jardiance? Thanks, Herlinda Mittal, [facility] 02/09/2025 7:57 AM Signed Don has available assistance through tu[employer]nr. Sw can speak with patient regarding Yony Nordisk PAP guidelines. Herlinda Dickinson, [facility] 02/09/2025 9:12 AM Signed Rambo left message for patient to return call to discuss below prescription assistance needs. 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 The spleen is normal size. Manager Adult: SU Transcribe Date/Time: Jan 28 2025 6:33A [...] ductal dilatation. The spleen is normal size. Manager [facility] Transcribe Date/Time: Jan 28 2025 6:33A Dictated by : KERI MILLER MD This examination was interpreted and the report reviewed and electronically signed by: KERI MILLER MD on Jan 28 2025 6:35AM EST [id number] Normal [facility] Amy 01-25-2025 TOBYN Telephone (FAMWS) KELLIE DOZIER ([id number]) 1945 F NFR Date Time Provider Department 01/25/25 SANTO LOVE During your visit today, we [...] level [R74.8] Order(s):US ABD RIGHT UPPER QUADRANT [[id number]] Order #: [id number] FUTURE Prescriptions as of 01/25/2025 - glipiZIDE [...] [D12.6] 10/17/2011 10/02/2022 Diverticulitis [K57.92] 10/24/2011 10/02/2022 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 [Z79.01]01/10/2017 07/13/2024 Persistent [...] Comment: Speci men Type: BLOOD SPECIMENOrdering Facility: [facility] Address: [address] [place] [address] Performed By: #### A LKISOP ####[facility] LABCLIA [id number] [place] [address] [place] ALK PHOS LIVER % 66.4 % Normal 26.0-86.2 [facility] Comment on above: Order Comment: Speci men Type: BLOOD SPECIMENOrdering Facility: [facility] Address: [address] [place] [address] Performed By: #### A LKISOP ####[facility] LABCLIA [id number] [place] [address] [place] BONE FRACTION 37.6 U/L Normal 12.9-52.6 [facility] Comment on above: Order Comment: Speci men Type: BLOOD SPECIMENOrdering Facility: [facility] Address: [address] [place] [address] Performed By: #### A LKISOP ####[facility] LABCLIA [id number] [place] [address] [place] INTESTINE FRACTION 0.0 U/L Normal 0.0-16.3 [facility] Comment on above: Order Comment: Speci men Type: BLOOD SPECIMENOrdering Facility: [facility] Address: [address] [place] [address] Performed By: #### A LKISOP ####[facility] LABCLIA [id number] [place] [address] [place] LIVER FRACTION 74.4 U/L High 16.0-69.3 [facility] Comment on above: Order Comment: Speci men Type: BLOOD SPECIMENOrdering Facility: [facility] Address: [address] [place] [address] Performed By: #### A LKISOP ####[facility] LABCLIA [id number] [place] [id number] [facility] [place] Neutrophils/100 WBC (Bld) 0.0 % Normal 0.0-24.2 [facility] Comment on above: Order Comment: Speci men Type: BLOOD SPECIMENOrdering Facility: [facility] Address: [address] [place] [address] Performed By: #### A LKISOP ####[facility] LABCLIA [id number] [place] [address] [place] ALP SerPl-cCncon 01-23-2025 ALP [Catalytic activity/Vol] 112 U/L Normal 34-123 [facility] Comment on above: Order Comment: Jennie metz Type: BLOOD SPECIMENOrdering Facility: [facility] Address: [address] [place] [address] Performed By: #### 6 768-6 ####[facility] [id number] [place] [address] [place] HbA1c (Bld)on 01-23-2025 Average glucose Estimated from glycated hemoglobin (Bld) [Mass/Vol] 192 mg/dL Normal [facility] Comment on above: Order Comment: Jennie metz Type: BLOOD SPECIMENOrdering Facility: [facility] Address: [address] [place] [address] Result Comment: eAG: (Estimated average glucose) is a calculated value from HgbA1c and is player services representative of the average blood glucose level in the last 2-3 month period. Performed By: #### 5 5454-3 ####[facility] [id number] [place] [address] [place] HbA1c (Bld) [Mass fraction] 8.3 % High 4.3-5.6 [facility] Comment on above: Order Comment: Jennie metz Type: BLOOD SPECIMENOrdering Facility: [facility] Address: [address] [place] [address] Result Comment: Amer ican Diabetes Association guidelines indicate that patients with HgbA1c in the range 5.7-6.4% are at increased risk for development of diabetes, and intervention by lifestyle modification may be beneficial. HgbA1c greater or equal to 6.5% is considered diagnostic of diabetes. Performed By: #### 5 5454-3 ####[facility] [id number] [place] [id number] [place] CNOVon 12-13-2024 CNOV Office Visit (FAMPWS ) KELLIE DOZIER ([id number]) 1945 F NFR Date Time Provider Department 12/13/24 11:00 AM RAISA MARADIAGA During your visit today, we recorded the following information about you: Pulse Respiration Blood pressure 55/minute 16/minute 128/70 Raisa Maradiaga APRN.PEDICURIST 12/13/2024 5:11 PM Signed This is a [...] percutaneous left heart catheterization 06/24/2011 done [place] Hydronephrosis, bilateral 12/16/2023 Hydroureter Lung nodule 01/2024 [...] + D (more content not included)... Normal [facility]07[facility]20[facility] KELLIE DOZIER ([id number]) 1945 F NFR Date Time Provider Department 12/07/24 [facility] During your visit today, we recorded the [...] [D12.6] 10/17/2011 10/02/2022 Diverticulitis [K57.92] 10/24/2011 10/02/2022 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 [Z79.01]01/10/2017 07/13/2024 Persistent atrial fibrillation (HCC) [I48.19] 01/10/2017 Tendonitis, Achilles, left [M76.62] 03/26/2018 06/04/2018 Tendonitis, Achilles, right [M76.61] 03/26/2018 06/04/2018 Nonrheumatic mitral valve regurgitation [I34.0] 06/17/2021 History of colon polyps [Z86.0 (more content not included)... Normal [facility] CNOVon 11-29-2024 CNOV Office Visit (PULMWS ) KELLIE DOZIER ([id number]) 1945 F NFR Date Time Provider Department 11/29/24 11:00 AM LEONELA BEAR PULMWS During your visit today, we recorded the following information about you: Pulse Respiration Blood pressure Weight 75/minute 17/minute 108/62 66.7 kg Leonela Bear MD 11/29/2024 12:00 PM Signed . Respiratory [place] Note Patient name: Kellie Dozier PCP: Santo [...] DATE OF EXAM: Aug 09 2024 10:20AM [facility] 0541 - CT CHEST WO IVCON / [...] percutaneous [facility] heart [facility], [facility] 12/[facility]2023 Hydroureter Lung nodule 01/2024 [...] (dizziness). brimonidine (more content not included)... Normal [facility] 11-21-2024 [facility] Telephone (FAMWS) KELLIE DOZIER ([id number]) 1945 F NFR Date Time Provider Department [...] Order(s):[] ALBUMIN/CREATININE RATIO, URINE [SQUACR] Order #: [id number] FUTURE [] ALK PHOS ISOENZYM BL [SQALKISO] Order #: [id number] FUTURE cyanocobalamin (VITAMIN B-12) 1,000 mcg tabTake [...] Comment: Speci men Type: URINE SPECIMENOrdering Facility: [facility] Address: [address] [place] [address] Performed By: #### U ACR ####[facility] LABCLIA [id number] [place] [address] [place] Albumin/Creatinine (U) [Mass ratio] 132 mg/g High <30 [facility] Comment on above: Order Comment: Speci men Type: URINE SPECIMENOrdering Facility: [facility] Address: [address] [place] [address] Result Comment: Adul t Male and Female Nephrotic Criteria: <30 mg/g is considered normal to mildly increased 30-300 mg/g is considered moderately increased >300 mg/g is considered severely increased KDIGO. (2013). KDIGO 2012 Clinical Practice Guideline for the Evaluation and Management of Chronic Kidney Disease. Official Journal of the International Society of Nephrology, 3(1), 1-150. Performed By: #### U ACR ####[facility] LABCLIA [id number] [place] [address] [place] Creatinine (U) [Mass/Vol] 33.6 mg/dL Normal 20.0-300.0 [facility] Comment on above: Order Comment: Speci men Type: URINE SPECIMENOrdering Facility: [facility] Address: [address] [place] [address] Performed By: #### U ACR ####[facility] LABCLIA [id number] [place] [address] [place] CBC W Auto Differential pane l (Bld)on 11-19-2024 Basophils (Bld) [#/Vol] 0.09 10*3/uL Normal <0.11 [facility] Comment on above: Order Comment: Speci men Type: BLOOD SPECIMENOrdering Facility: [facility] Address: [address] [place] [address] Performed By: #### 5 7021-8 ####[facility] LABCLIA [id number] [place] [address] [place] Basophils/100 WBC (Bld) 1.1 % Normal [facility] Comment on above: Order Comment: Speci men Type: BLOOD SPECIMENOrdering Facility: [facility] Address: [address] [place] [address] Performed By: #### 5 7021-8 ####[facility] LABCLIA [id number] [place] [address] [place] Differential cell count method Nom (Bld) Auto Normal [facility] Comment on above: Order Comment: Speci men Type: BLOOD SPECIMENOrdering Facility: [facility] Address: [address] [place] [address] Performed By: #### 5 7021-8 ####[facility] LABCLIA [id number] [place] [address] [place] Eosinophils (Bld) [#/Vol] 0.16 10*3/uL Normal <0.46 [facility] Comment on above: Order Comment: Speci men Type: BLOOD SPECIMENOrdering Facility: [facility] Address: [address] [place] [address] Performed By: #### 5 7021-8 ####[facility] LABCLIA [id number] [place] [address] [place] Eosinophils/100 WBC (Bld) 2.0 % Normal [facility] Comment on above: Order Comment: Speci men Type: BLOOD SPECIMENOrdering Facility: [facility] Address: [address] [place] [address] Performed By: #### 5 7021-8 ####[facility] LABCLIA [id number] [place] [address] [place] Erythrocyte distribution width (RBC) [Ratio] 13.9 % Normal 11.5-15.0 [facility] Comment on above: Order Comment: Speci men Type: BLOOD SPECIMENOrdering Facility: [facility] Address: [address] [place] [address] Performed By: #### 5 7021-8 ####[facility] LABCLIA [id number] [place] [address] [place] Hematocrit (Bld) [Volume fraction] 46.1 % High 36.0-46.0 [facility] Comment on above: Order Comment: Speci men Type: BLOOD SPECIMENOrdering Facility: [facility] Address: [address] [place] [address] Performed By: #### 5 7021-8 ####[facility] LABCLIA [id number] [place] [address] [place] Hemoglobin (Bld) [Mass/Vol] 14.6 g/dL Normal 11.5-15.5 [facility] Comment on above: Order Comment: Speci men Type: BLOOD SPECIMENOrdering Facility: [facility] Address: [address] [place] [address] Performed By: #### 5 7021-8 ####[facility] LABCLIA [id number] [place] [address] [place] Immature granulocytes (Bld) [#/Vol] 0.04 10*3/uL Normal <0.10 [facility] Comment on above: Order Comment: Speci men Type: BLOOD SPECIMENOrdering Facility: [facility] Address: [address] [place] [address] Performed By: #### 5 7021-8 ####[facility] LABCLIA [id number] [place] [address] [place] Immature granulocytes/100 WBC (Bld) 0.5 % Normal [facility] Comment on above: Order Comment: Speci men Type: BLOOD SPECIMENOrdering Facility: [facility] Address: [address] [place] [address] Performed By: #### 5 7021-8 ####[facility] LABCLIA [id number] [place] [address] [place] Lymphocytes (Bld) [#/Vol] 1.86 10*3/uL Normal 1.00-4.00 [facility] Comment on above: Order Comment: Speci men Type: BLOOD SPECIMENOrdering Facility: [facility] Address: [address] [place] [address] Performed By: #### 5 7021-8 ####[facility] LABCLIA [id number] [place] [address] [place] Lymphocytes/100 WBC (Bld) 23.4 % Normal [facility] Comment on above: Order Comment: Speci men Type: BLOOD SPECIMENOrdering Facility: [facility] Address: [address] [place] [address] Performed By: #### 5 7021-8 ####[facility] LABCLIA [id number] [place] [address] [place] MCH (RBC) [Entitic mass] 29.9 pg Normal 26.0-34.0 [facility] Comment on above: Order Comment: Speci men Type: BLOOD SPECIMENOrdering Facility: [facility] Address: [address] [place] [address] Performed By: #### 5 7021-8 ####[facility] LABIA [id number] [place] [address] [place] MCHC (RBC) [Mass/Vol] 31.7 g/dL Normal 30.5-36.0 [facility] Comment on above: Order Comment: Speci men Type: BLOOD SPECIMENOrdering Facility: [facility] Address: [address] [place] [address] Performed By: #### 5 7021-8 ####[facility] LABIA [id number] [place] [address] [place] MCV (RBC) [Entitic vol] 94.5 fL Normal 80.0-100.0 [facility] Comment on above: Order Comment: Speci men Type: BLOOD SPECIMENOrdering Facility: [facility] Address: [address] [place] [address] Performed By: #### 5 7021-8 ####[facility] LABIA [id number] [place] [address] [place] Monocytes (Bld) [#/Vol] 0.77 10*3/uL Normal <0.87 [facility] Comment on above: Order Comment: Speci men Type: BLOOD SPECIMENOrdering Facility: [facility] Address: [address] [place] [address] Performed By: #### 5 7021-8 ####[facility] LABCLIA [id number] [place] [address] [place] Monocytes/100 WBC (Bld) 9.7 % Normal [facility] Comment on above: Order Comment: Speci men Type: BLOOD SPECIMENOrdering Facility: [facility] Address: [address] [place] [address] Performed By: #### 5 7021-8 ####[facility] LABCLIA [id number] [place] [address] [place] Neutrophils (Bld) [#/Vol] 5.02 10*3/uL Normal 1.45-7.50 [facility] Comment on above: Order Comment: Speci men Type: BLOOD SPECIMENOrdering Facility: [facility] Address: [address] [place] [address] Performed By: #### 5 7021-8 ####[facility] LABCLIA [id number] [place] [address] [place] Neutrophils/100 WBC (Bld) 63.3 % Normal [facility] Comment on above: Order Comment: Speci men Type: BLOOD SPECIMENOrdering Facility: [facility] Address: [address] [place] [address] Performed By: #### 5 7021-8 ####[facility] LABCLIA [id number] [place] [address] [place] Nucleated RBC (Bld) [#/Vol] 10*3/uL Normal <0.01 [facility] Comment on above: Order Comment: Speci men Type: BLOOD SPECIMENOrdering Facility: [facility] Address: [address] [place] [address] Performed By: #### 5 7021-8 ####[facility] LABCLIA [id number] [place] [address] [place] Nucleated RBC/100 WBC (Bld) [Ratio] 0.0 /100 WBC Normal [facility] Comment on above: Order Comment: Speci men Type: BLOOD SPECIMENOrdering Facility: [facility] Address: [address] [place] [address] Performed By: #### 5 7021-8 ####[facility] LABCLIA [id number] [place] [address] [place] Platelet mean volume (Bld) [Entitic vol] 10.4 fL Normal 9.0-12.7 [facility] Comment on above: Order Comment: Speci men Type: BLOOD SPECIMENOrdering Facility: [facility] Address: [address] [place] [address] Performed By: #### 5 7021-8 ####[facility] LABCLIA [id number] [place] [address] [place] Platelets (Bld) [#/Vol] 246 10*3/uL Normal 150-400 [facility] Comment on above: Order Comment: Speci men Type: BLOOD SPECIMENOrdering Facility: [facility] Address: [address] [place] [address] Performed By: #### 5 7021-8 ####[facility] LABIA [id number] [place] [address] [place] RBC (Bld) [#/Vol] 4.88 10*6/uL Normal 3.90-5.20 [facility] Comment on above: Order Comment: Speci men Type: BLOOD SPECIMENOrdering Facility: [facility] Address: [address] [place] [address] Performed By: #### 5 7021-8 ####[facility] LABIA [id number] [place] [address] [place] WBC (Bld) [#/Vol] 7.94 10*3/uL Normal 3.70-11.00 [facility] Comment on above: Order Comment: Speci men Type: BLOOD SPECIMENOrdering Facility: [facility] Address: [address] [place] [address] Performed By: #### 5 7021-8 ####[facility] LABIA [id number] [place] [address] [place] CNOVon 11-19-2024 CNOV Office Visit (FAMPWS ) KELLIE DOZIER ([id number]) 1945 F NFR Date Time Provider Department 11/19[facility]24 9[facility], we recorded [...] follow up of renal cyst. Still sees [place]. Mammogram was normal. MEDICATIONS: Current [...] percutaneous left heart catheterization 06/24/2011 done [place] Hydronephrosis, bilateral 12/16/2023 Hydroureter Lung nodule 01/2024 [...] 11-19-2024 Albumin [Mass/Vol] 4.3 g/dL Normal 3.9-4.9 [facility] Comment on above: Order Comment: Speci men Type: BLOOD SPECIMENOrdering Facility: [facility] Address: [address] [place] [address] Performed By: #### 2 4323-8, 79562-4, 2132-07 ####[facility] LABIA [id number] [place] [address] [place] ALP [Catalytic activity/Vol] 126 U/L High 34-123 [facility] Comment on above: Order Comment: Speci men Type: BLOOD SPECIMENOrdering Facility: [facility] Address: [address] [place] [address] Performed By: #### 2 4323-8, 58817-2, 2132-07 ####[facility] LABIA [id number] [place] [address] [place] ALT [Catalytic activity/Vol] 20 U/L Normal 7-38 [facility] Comment on above: Order Comment: Speci men Type: BLOOD SPECIMENOrdering Facility: [facility] Address: [address] [place] [address] Performed By: #### 2 4323-8, 40133-5, 2132-07 ####[facility] LABCLIA [id number] [place] [address] [place] Anion gap [Moles/Vol] 11 mmol/L Normal 8-15 [facility] Comment on above: Order Comment: Speci men Type: BLOOD SPECIMENOrdering Facility: [facility] Address: [address] [place] [address] Performed By: #### 2 4323-8, 42304-6, 2132-07 ####[facility] LABCLIA [id number] [place] [address] [place] AST [Catalytic activity/Vol] 30 U/L Normal 13-35 [facility] Comment on above: Order Comment: Speci men Type: BLOOD SPECIMENOrdering Facility: [facility] Address: [address] [place] [address] Performed By: #### 2 4323-8, 17663-1, 2132-07 ####[facility] LABIA [id number] [place] [address] [place] Bilirubin [Mass/Vol] 0.5 mg/dL Normal 0.2-1.3 [facility] Comment on above: Order Comment: Speci men Type: BLOOD SPECIMENOrdering Facility: [facility] Address: [address] [place] [address] Performed By: #### 2 4323-8, 26413-8, 2132-07 ####[facility] LABCLIA [id number] [place] [address] [place] Calcium [Mass/Vol] 9.8 mg/dL Normal 8.5-10.2 [facility] Comment on above: Order Comment: Speci men Type: BLOOD SPECIMENOrdering Facility: [facility] Address: [address] [place] [address] Performed By: #### 2 4323-8, 42503-7, 2132-07 ####[facility] LABCLIA [id number] [address] [address] [place] Chloride [Moles/Vol] 106 mmol/L Normal 98-107 [facility] Comment on above: Order Comment: Speci men Type: BLOOD SPECIMENOrdering Facility: [facility] Address: [address] [place] [address] Performed By: #### 2 4323-8, 31866-9, 2132-07 ####[facility] LABIA [id number] [place] [address] [place] CO2 [Moles/Vol] 26 mmol/L Normal 22-30 [facility] Comment on above: Order Comment: Speci men Type: BLOOD SPECIMENOrdering Facility: [facility] Address: [address] [place] [address] Performed By: #### 2 4323-8, 33773-7, 2132-07 ####[facility] LABIA [id number] [place] [address] [place] Creatinine [Mass/Vol] 0.67 mg/dL Normal 0.58-0.96 [facility] Comment on above: Order Comment: Speci men Type: BLOOD SPECIMENOrdering Facility: [facility] Address: [address] [place] [address] Performed By: #### 2 4323-8, 84575-7, 2132-07 ####[facility] LABIA [id number] [address] [address] [place] Creatinine and Glomerular filtration rate.predicted panel (S/P/Bld) 88 mL/min/1.73m??? Normal >=60 [facility] Comment on above: Order Comment: Speci men Type: BLOOD SPECIMENOrdering Facility: [facility] Address: [address] [place] [address] Result Comment: Marsha mated Glomerular Filtration Rate [...] actual GFR. Performed By: #### 2 4323-8, 15214-6, 2132-07 ####[facility] LABCLIA [id number] [address] [address] [place] Glucose [Mass/Vol] 76 mg/dL Normal 74-99 [facility] Comment on above: Order Comment: Jennie metz Type: BLOOD SPECIMENOrdering Facility: [facility] Address: [address] [place] [address] Result Comment: The [place] Diabetes Association (ADA) provides guidance for cutoff [...] Standards of Medical Care in Diabetes 2016, [place] [employer]. Diabetes Care. 2016.39(Suppl 1). Performed By: #### 2 4323-8, 21152-0, 2132-07 ####[facility] LABCLIA [id number] [address] [address] [place] Potassium [Moles/Vol] 4.1 mmol/L Normal 3.7-5.1 [facility] Comment on above: Order Comment: Jennie metz Type: BLOOD SPECIMENOrdering Facility: [facility] Address: [address] [place] [address] Performed By: #### 2 4323-8, 39929-2, 2132-07 ####[facility] LABIA [id number] [address] [address] [place] Protein [Mass/Vol] 7.2 g/dL Normal 6.3-8.0 [facility] Comment on above: Order Comment: Speci men Type: BLOOD SPECIMENOrdering Facility: [facility] Address: [address] [place] [address] Performed By: #### 2 4323-8, 25482-1, 2132-07 ####[facility] LABIA [id number] [place] [address] [place] Sodium [Moles/Vol] 143 mmol/L Normal 136-144 [facility] Comment on above: Order Comment: Speci men Type: BLOOD SPECIMENOrdering Facility: [facility] Address: [address] [place] [address] Performed By: #### 2 4323-8, 89926-1, 2132-07 ####[facility] LABIA [id number] [place] [address] [place] Urea nitrogen [Mass/Vol] 16 mg/dL Normal 7-21 [facility] Comment on above: Order Comment: Speci men Type: BLOOD SPECIMENOrdering Facility: [facility] Address: [address] [place] [address] Performed By: #### 2 4323-8, 09939-8, 2132-07 ####[facility] LABIA [id number] [place] [id number] [place] HbA1c (Bld)on 11-19-2024 Average glucose Estimated from glycated hemoglobin (Bld) [Mass/Vol] 154 mg/dL Normal [facility] Comment on above: Order Comment: Speci men Type: BLOOD SPECIMENOrdering Facility: [facility] Address: [address] [place] [address] Result Comment: eAG: (Estimated average glucose) is a calculated value from HgbA1c and is player services representative of the average blood glucose level in the last 2-3 month period. Performed By: #### 5 5454-3 ####[facility] LABCLIA [id number] [place] [address] [place] HbA1c (Bld) [Mass fraction] 7.0 % High 4.3-5.6 [facility] Comment on above: Order Comment: Speci men Type: BLOOD SPECIMENOrdering Facility: [facility] Address: [address] [place] [address] Result Comment: Amer [place] Diabetes Association guidelines indicate that patients with HgbA1c in the range 5.7-6.4% are at increased risk for development of diabetes, and intervention by lifestyle modification may be beneficial. HgbA1c greater or equal to 6.5% is considered diagnostic of diabetes. Performed By: #### 5 5454-3 ####[facility] LABCLIA [id number] [place] [address] [place] Lipid 1996 panelon 5 Cholesterol [Mass/Vol] 156 mg/dL Normal <200 [facility] Comment on above: Order Comment: Speci men Type: BLOOD SPECIMENOrdering Facility: [facility] Address: [address] [place] [address] Result Comment: <200 mg/dL, Desirable 200-239 mg/dL, Borderline high >239 mg/dL, High Performed By: #### 2 4323-8, 47984-4, 2132-07 ####[facility] LABCLIA [id number] [address] [place] Cholesterol in HDL [Mass/Vol] 61 mg/dL Normal >39 [facility] Comment on above: Order Comment: Speci men Type: BLOOD SPECIMENOrdering Facility: [facility] Address: [address] [place] [address] Result Comment: 40-5 9 mg/dL, Acceptable >59 mg/dL, High: Negative risk factor for coronary heart disease <40 mg/dL, Low: Positive risk factor for coronary heart disease Performed By: #### 2 4323-8, 33712-3, 2132-07 ####[facility] LABCLIA [id number] [address] [address] [place] Cholesterol in LDL [Mass/Vol] 77 mg/dL Normal <100 [facility] Comment on above: Order Comment: Speci men Type: BLOOD SPECIMENOrdering Facility: [facility] Address: [address] [place] [address] Result Comment: <100 mg/dL, Optimal 100-129 mg/dL, Near optimal/above optimal 130-159 mg/dL, Borderline high 160-189 mg/dL, High >189 mg/dL, Very high Secondary prevention optimal LDL Cholesterol levels are recommended to be < 70 mg/dL Performed By: #### 2 4323-8, 77621-1, 2132-07 ####[facility] LABCLIA [id number] [place] [address] [place] Cholesterol in LDL/Cholesterol in HDL [Mass ratio] 1.26 {ratio} Normal <2.54 [facility] Comment on above: Order Comment: Speci men Type: BLOOD SPECIMENOrdering Facility: [facility] Address: [address] [place] [address] Result Comment: Porfirio heller: 1. National Cholesterol Education Program ATP III Guideline At-A-Glance Quick Desk Reference: National Heart, Lung, and Blood [place]. National Institutes of Health. 2001: NIH Publication No. 01-3305. 2. An International Atherosclerosis Society position paper: global recommendations for the management of dyslipidemia: executive summary, Atherosclerosis. 2014: 232(2):410-413. Performed By: #### 2 4323-8, 06419-8, 2132-07 ####[facility] LABIA [id number] [place] [address] [place] Cholesterol in VLDL [Mass/Vol] 18 mg/dL Normal <30 [facility] Comment on above: Order Comment: Speci men Type: BLOOD SPECIMENOrdering Facility: [facility] Address: [address] [place] [address] Performed By: #### 2 4323-8, , 2132-07 ####[facility] LABCLIA [id number] [address] [address] [place] Cholesterol non HDL [Mass/Vol] 95 mg/dL Normal <130 [facility] Comment on above: Order Comment: Speci men Type: BLOOD SPECIMENOrdering Facility: [facility] Address: [address] [place] [address] Result Comment: <130 mg/dL, Optimal 130-159 mg/dL, Near optimal/above optimal 160-189 mg/dL, Borderline high 190-219 mg/dL, High >219 mg/dL, Very high Secondary prevention optimal non HDL Cholesterol levels are recommended to be <100 mg/dL Performed By: #### 2 4323-8, , 2132-07 ####[facility] LABCLIA [id number] [address] [address] [place] Cholesterol.total/Cho lesterol in HDL [Mass ratio] 2.56 {ratio} Normal <5.10 [facility] Comment on above: Order Comment: Speci men Type: BLOOD SPECIMENOrdering Facility: [facility] Address: [address] [place] [address] Performed By: #### 2 4323-8, , 2132-07 ####[facility] LABCLIA [id number] [address] [address] [place] FASTING TIME 12 hrs Normal [facility] Comment on above: Order Comment: Speci men Type: BLOOD SPECIMENOrdering Facility: [facility] Address: [address] [place] [id number] Performed By: #### 2 4323-8, , 2132-07 ####[facility] LABCLIA [id number] [place] [id number] [place] Triglyceride [Mass/Vol] 92 mg/dL Normal <150 [facility] Comment on above: Order Comment: Speci men Type: BLOOD SPECIMENOrdering Facility: [facility] Address: [address] [facility] [place] [address] Result Comment: <150 mg/dL, Normal 150-199 mg/dL, Borderline high 200-499 mg/dL, High >499 mg/dL, Very high Performed By: #### 2 4323-8, 87549-8, 2132-07 ####[facility] LABCLIA [id number] [address] [address] [facility] Vit B12 [facility] 11-19- 025 Cobalamin (Vitamin B12) [Mass/Vol] pg/mL High 232-1245 [facility] Comment on above: Order Comment: Speci men Type: BLOOD SPECIMENOrdering Facility: [facility] Address: [address] [facility] [address] [facility] [place] [address] Performed By: #### 2 4323-8, 18811-0, 2132-07 ####[facility] LABCLIA [id number] [place] [id number] [place] Cardiology Visit Reporton Cardiology Visit Report [facility] [address] [place] [address] OFFICE VISIT Date of Service: 10/04/24 MR#: [id number] Acct: [id number] Name: KELLIE DOZIER [place] Rep #: [id number] : 1945 Provider: MARIA LUISA montilla Age/Sex: 79/F [place] [facility] [place] Status: Signed HPI HPI History of [...] NIBP Intake Visit Reasons: 6 M FU Support Merchandiser Required: No Is patient in pain?: No [...] past year?: Yes (Pulled down by dog) [facility] Medical History Anemia History of diverticulitis Non-smoker History of stress test Cardiology follow-up encounter On apixaban therapy Old myocardial infarction Liver mass 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 tachycardia Pure hypercholesterolemia Malignant neoplasm of right breast GERD (gastroesophageal reflux disease) Paroxysmal atrial fibrillation Type 2 diabetes mellitus Essential hypertension Presence of stent in coronary artery ( 05/23/09) Atherosclerotic heart disease of [place] coronary artery without angina pectoris Surgical History [...] coffee Numb (more content not included)... Normal [facility] Echo Completeon 07-13-2024 Echo Complete [facility] [place] [address] Echo Complete 07/13/24 1004 MR#: [id number] Acct: [id number] Name: KELLIE DOZIER [place] Rep #: [id number] : 1945 79 From: Rajeev Kelley MD Attending Dr: Dr. Rajeev Kelley MD Status: NILESH LEDESMA Ordering Dr: Rajeev Kelley MD Date: 07/13/24 Location: [facility] Sex: F C Admitted: Reason For [...] Date Dictated: 07/13/24 1004 Date Transcribed: 07/13/242110 Manager Adult: Signed Normal [facility] 12 Lead [place] [facility] [place] 04-07-2024 12 Lead EKG performed by [address] [address] 12 Lead EKG performed [place] [facility] [place] 04/07/24 1118 MR#: [id number] Acct: [id number] Name: KELLIE DOZIER Rep #: [id number] : 1945 79 From: Rajeev Kelley MD Attending Dr: Dr. Rajeev Kelley MD Status: DEP A MB Ordering Dr: Rajeev Kelley MD Date: 04/07/24 [place] [facility] [place] Sex: F C Admitted: BMS/12 Lead E[place] [facility] [place] Report Interpretation Sin us Rhythm -First degree A-V block - occasional PAC Debi = 274 # PACs = 1.-Anterior infarct -age undetermined. ABNORMAL Electronically signed on 04/13/2024 at 10:17 by Rajeev Kelley [employer] Version 8610 04/13/24 1021 Date Rajeev Kelley MD CC: Dr. Santo Love MD Date Dictated: 04/07/241117 Date Transcribed: 04/07/241117 Manager Adult: CO Signed Normal [facility] Cardiology Visit Reporton Cardiology Visit Report [facility] [address] [place] [address] OFFICE VISIT Date of Service: 04/07/24 MR#: [id number] Acct: [id number] Name: KELLIE DOZIER Rep #: [id number] : 1945 Provider: Dr. Rajeev Kelley MD Age/Sex: 79/F [place] [facility] [place] Status: Signed HPI HPI History of [...] Monitor Intake Visit Reasons: 15 M FU Support Merchandiser Required: No Accompanied by: Self Is patient [...] artery ( 05/23/09) Atherosclerotic heart disease of [place] coronary artery without angina pectoris Surgical History [...] coffee Numb (more content not included)... Normal [facility] Bedside Glucoseon 02-04-2024 FINGERSTICK GLU 109 mg/dL High 74-106 [facility] Comment on above: Result Comment: SYDNEY VAILENT OF PATIENT CARE PER NURSING PROTOCOL Performed By: #### L 501.080 #### [facility] [address] [facility] [place], [address] EGD Reporton 02-04-2024 EGD Report [facility] Department [address] [place] [address] EGD Report MR#: [id number] Acct: [id number] Name: KELLIE DOZIER [place] Rep #: [id number] : 1945 78 From: Cullen Friend DO PCP: Dr. Santo Love MD Status:REG INC Patient Name: Kellie Dozier Procedure Date: 02/04/2024 [...] pathology results. Procedure Code(s): --- Professional --- 38543, Esophagogastroduodenoscopy, flexible, transoral; with biopsy, single or multiple CPT copyright 2021 [employer]. All rights reserved. The codes documented in this report are preliminary and upon emergency crew supervisor review may be revised to meet current compliance requirements. Cullen Ferrer DO 02/04/2024 7:06:07 AM This report has been signed electronically. Number of Addenda: 0 Note Initiated On: 02/04/2024 6:21 AM 02/04/24705 Date Cullen Ferrer DO Cosigner Signature: Date (if indicated) CC: Dr. Santo Love MD; Cullen Ferrer DO Date Dictated: 02/04/24620 Date Transcribed: Manager Adult: MIGUELINA Signed Normal [facility] H Pylori (initial)on 024 H Pylori (initial) Patient Age/Sex Loca tion Account Attending Physician KELLIE DOZIER 78/F EN [id number] Cullen Ferrer DO Specimen: [id number] Received: 04/ Status: SOUT Silvana Num: [id number] Spec Type: IMMUNO Subm Dr: Cullen Ferrer DO PHYSICIAN INSTITUTION [place] [address] SPECIMEN INFORMATION: Tissue Source: A - Gastric ulcer biopsy Clinical Info: Gastrointestinal bleeding, Gastric ulcer Specimen Number: [id number] CPT code: 84024 METHODOLOGY: Deparaffinized sections of prefer/formalin-fixed tissue or [...] developed and their performance characteristics determined by [facility]. They may not have been cleared or approved by the U.S. Food and Drug Administration. The FDA has determined that such clearance or approval is not necessary. The above immunohistochemical/dualISH markers are ordered and reviewed by the Pathologist. INTERPRETATION: A. Gastric ulcer, biopsy: Negative for Helicobacter pylori organisms. SOMMER/ 02/05/24 Signed (signature on file) Dr. Usama Reilly MD 02/05/24 1306 ----- Normal [facility] Comment on above: Performed By: #### P H.PYLORI ####[address], [id number] Special Stain Group IIon Special Stain Group II Patient Age/Sex Location Account Attending Physician KELLIE DOZIER 78/F EN [id number] Cullen Ferrer DO Specimen: [id number] Received: 02/04/24 Status: ALBARO Silvana Num: [id number] Spec Type: Gastric Bx Subm Dr: Cullen [...] (goblet cell metaplasia) not identified. See comment. [facility] 02/05/24 COMMENT A. The results of immunohistochemistry for Helicobacter pylori will be reported separately ([id number]). B. Alcian blue/PAS stain with matched control [...] specimen is totally submitted in one cassette. [facility] 02/04/24 TC:3 CPT: 34242,15666k0 ----- Patient Age/Sex Location Account Attending Physician ----- KELLIE DOZIER 78/F EN [id number] Cullen Ferrer, DO ----- Signed (signature on file) Dr. Usama Reilly MD 02/05/24 1220 ----- Normal [facility] Comment on above: Performed By: #### L 501.080 #### [facility] [place], [address] Thin prep Papanicolaou smear with manual screeningOrdered By: Clulen Ferrer on 02-04-2024 Thin prep Papanicolaou smear with manual screening 109 mg/dL 74-106 [facility] Comment on above: MANAGEMENT OF PATIEN T CARE PER NURSING PROTOCOL UA DIP, URINE (POC)on 2023 BILIRUBIN UA (POCT) Negative Negative [facility] CLARITY UA (POCT) Cloudy [facility] COLOR UA (POCT) Yellow [facility] GLUCOSE UA (POCT) 100 mg/dL Abnormal Negative mg/dL [facility] Hemoglobin Ql (U) Small Abnormal Negative [facility] KETONE UA (POCT) Negative Negative mg/dL [facility] LEUKOCYTES UA (POCT) Large [facility] ([facility]) Negative Negative [facility] PH UA (POCT) 6.0 4.5 - 8.0 [facility] Protein Ql (U) Negative Negative mg/dL [facility] SPECIFIC GRAVITY UA (POCT) 1.015 1.005 - 1.030 [facility] UROBILINOGEN UA (POCT) 0.2 E.U./dL Normal E.U./dL [facility] Basophil percentageOrdered B y: Cullen Ferrer on 01-18-2024 Hemoglobin (Bld) [Mass/Vol] 10.5 g/dL 12.0-15.0 [facility] Gastroenterology Visit Repor ton 01-18-2024 Gastroenterology Visit Report [facility] [address] [place] [address] OFFICE VISIT Date of Service: 01/18/24 MR#: [id number] Acct: [id number] Name: YELENAKELLIE ANN Rep #: [id number] : 1945 Provider: Cullen Ferrer DO Age/Sex: 78/F [place] [facility] [place] Status: Signed Intake Vital Signs 12/21/23 14:06 Height 5 ft 4 in Intake Visit Reasons: Hospital FU Allergies alendronate sodium [From Fosamax] Adverse Reaction (Severe, Verified 12/15/23 05:40) myalgias amoxicillin [Amoxicillin] Adverse Reaction (Verified 12/15/23 05:40) Nausea/Vom/Diarrhea metformin Adverse Reaction (Verified 12/15/23 05:40) Nausea/Vom/Diarrhea shellfish derived Adverse Reaction (Verified 12/15/23 05:40) Nausea/Vom/Diarrhea [facility] Medical History Atherosclerotic heart disease of [place] coronary artery without angina pectoris Essential hypertension [...] who presents to the office today for *[facility] hospitalization .07.26-12.13.23 for management of UGIB with anemia with use of Eliquis for A- fib. ? CT abd/pel IV only 12.11.23 fluid filled small bowel loops, ?enteritis; focal stranding of RLQ from cecum. ? EGD 12.12.23 oozing gastric ulcer, epinephrine/hemospray x5, heater probe; bleeding duodenal AVM. No specimens [facility] hospitalization 12.15.23-12.22.23 for management of GIB with [...] Appearance: average body habitus and well nourished [facility] Head: normal to inspection Ears: hearing grossly [...] no hepatosplenom (more content not included)... Normal [facility] HH, Hemoglobin AND Hematocri ton 01-18-2024 Hematocrit (Bld) [Volume fraction] 34.1 % Low 37-47 [facility] Comment on above: Performed By: #### L 501.080 #### [facility] [address] [place], [address] Hemoglobin (Bld) [Mass/Vol] 10.5 g/dL Low 12.0-15.0 [facility] Comment on above: Performed By: #### L 501.080 #### [facility] [address] [place], [address] Hematocrit Auto (Bld) [Volum e fraction]Ordered By: Cullen Ferrer on 01-18-2024 Hematocrit (Bld) [Volume fraction] 34.1 % 37-47 [facility] Basic metabolic 2000 panelon 01-06-2024 Anion gap [Moles/Vol] 13 mmol/L 9 - 18 mmol/L [facility] Calcium [Mass/Vol] 9.5 mg/dL 8.5 - 10. 2 mg/dL [facility] Chloride [Moles/Vol] 108 mmol/L High 97 - 10 5 mmol/L [facility] CO2 [Moles/Vol] 25 mmol/L 22 - 30 mmol/L [facility] Creatinine [Mass/Vol] 0.72 mg/dL 0.58 - 0.96 mg/dL [facility] Estimated Glomerular Filtration Rate 85 mL/min/1.73m >=60 mL/min/1.7 3m [facility] Glucose [Mass/Vol] 94 mg/dL 74 - 99 mg/dL [facility] Potassium [Moles/Vol] 4.2 mmol/L 3.7 - 5.1 mmol/L [facility] Sodium [Moles/Vol] 146 mmol/L High 136 - 144 mmol/L [facility] Urea nitrogen [Mass/Vol] 11 mg/dL 7 - 21 mg/dL [facility] CBC W Auto Differential pane l (Bld)on 01-06-2024 Basophils (Bld) [#/Vol] 0.06 10*3/uL <0.11 k/uL [facility] Basophils/100 WBC (Bld) 0.7 % [facility] Differential cell count method Nom (Bld) Auto [facility] Eosinophils (Bld) [#/Vol] 0.26 10*3/uL <0.46 k/uL [facility] Eosinophils/100 WBC (Bld) 3.1 % [facility] Erythrocyte distribution width (RBC) [Ratio] 15.5 % High 11.5 - 15.0 % [facility] Hematocrit (Bld) [Volume fraction] 33.6 % Low 36.0 - 46.0 % [facility] Hemoglobin (Bld) [Mass/Vol] 10.5 g/dL Low 11.5 - 15.5 g/dL [facility] Immature granulocytes (Bld) [#/Vol] 0.08 10*3/uL <0.10 k/uL [facility] Immature granulocytes/100 WBC (Bld) 1.0 % [facility] Lymphocytes (Bld) [#/Vol] 1.61 10*3/uL 1.00 - 4.00 k/uL [facility] Lymphocytes/100 WBC (Bld) 19.5 % [facility] MCH (RBC) [Entitic mass] 28.8 pg 26.0 - 34.0 pg [facility] MCHC (RBC) [Mass/Vol] 31.3 g/dL 30.5 - 36.0 g/dL [facility] MCV (RBC) [Entitic vol] 92.3 fL 80.0 - 100.0 fL [facility] Monocytes (Bld) [#/Vol] 0.83 10*3/uL <0.87 k/uL [facility] Monocytes/100 WBC (Bld) 10.0 % [facility] Neutrophils (Bld) [#/Vol] 5.43 10*3/uL 1.45 - 7.50 k/uL [facility] Neutrophils/100 WBC (Bld) 65.7 % [facility] Nucleated RBC (Bld) [#/Vol] <0.01 k/uL [facility] Nucleated RBC/100 WBC (Bld) [Ratio] 0.0 /100 WBC [facility] Platelet mean volume (Bld) [Entitic vol] 10.0 fL 9.0 - 12.7 fL [facility] Platelets (Bld) [#/Vol] 310 10*3/uL 150 - 400 k/uL [facility] RBC (Bld) [#/Vol] 3.64 10*6/uL Low 3.90 - 5.20 m/uL [facility] WBC (Bld) [#/Vol] 8.27 10*3/uL 3.70 - 11.00 k/uL [facility] Bedside Glucoseon 12-22-2023 FINGERSTICK GLU 208 mg/dL High 74-106 [facility] Comment on above: Result Comment: SYDNEY GEMENT OF PATIENT CARE PER NURSING PROTOCOL Performed By: #### L 501.080 ####[facility] [address] [place], [address] FINGERSTICK GLU 245 mg/dL High 74-106 [facility] Comment on above: Result Comment: SYDNEY GEMENT OF PATIENT CARE PER NURSING PROTOCOL Performed By: #### L 501.080 #### [facility] [address] [place], [address] FINGERSTICK GLU 77 mg/dL Normal 74-106 [facility] Comment on above: Result Comment: SYDNEY GEMENT OF PATIENT CARE PER NURSING PROTOCOL Performed By: #### L 501.080 #### [facility] [address] [place], [address] Thin prep Papanicolaou smear with manual screeningOrdered By: Gomez Johansen on 12-22-2023 Thin prep Papanicolaou smear with manual screening 245 mg/dL 74-106 [facility] Comment on above: MANAGEMENT OF PATIEN T CARE PER NURSING PROTOCOL Absolute lymphocyte countOrd ered By: Gomez Johansen on 12-21-2023 Lymphocytes Auto (Unsp spec) [#/Vol] 1.19 10*3/uL 0.83-4.51 [facility] Automated lymphocyte count a s percentage of total leukocytesOrdered By: Gomez Johansen on 12-21-2023 Lymphocytes/100 WBC Auto (Unsp spec) 13.5 % - [facility] Basic Metabolic Profile (BMP )on 12-21-2023 BUN/CRE 16.0 RATIO Normal - [facility] Comment on above: Performed By: #### L 100.0100, L500.4050 #### [facility] [address] [place], [address] CA,Total 8.3 mg/dL Low 8.5-10.1 [facility] Comment on above: Performed By: #### L 100.0100, L500.4050 #### [facility] [address] [place], [address] Chloride [Moles/Vol] 111 mmol/L High 98-107 [facility] Comment on above: Performed By: #### L 100.0100, L500.4050 #### [facility] [address] [place], [address] CO2 [Moles/Vol] 27.0 mmol/L Normal 21.0-32.0 [facility] Comment on above: Performed By: #### L 100.0100, L500.4050 #### [facility] [address] [place], [address] Creatinine [Mass/Vol] 0.44 mg/dL Low 0.55-1.02 [facility] Comment on above: Result Comment: The validity of the calculated GFR GFRAA in patients over 70 years has not been determined. Clinical correlation is essential. Performed By: #### L 100.0100, L500.4050 #### [facility] [address] [place], [address] ECRCL 49.24 ml/min Normal [facility] Comment on above: Performed By: #### L 100.0100, L500.4050 #### [facility] [address] [place], [address] EST GFR - AA 179 mL/min Normal >60 [facility] Comment on above: Result Comment: Afri can [place] GFR Calc Performed By: #### L 100.0100, L500.4050 #### [facility] [address] [place], [address] GAP 4 Low 5-15 [facility] Comment on above: Performed By: #### L 100.0100, L500.4050 #### [facility] [address] [place], [address] GFR/1.73 sq M.predicted among non-blacks MDRD (S/P/Bld) [Vol rate/Area] 148 mL/min/{1.73_m2} Normal >60 [facility] Comment on above: Result Comment: Non- GFR Calc Performed By: #### L 100.0100, L500.4050 #### [facility] [address] [place], [address] Glucose [Mass/Vol] 77 mg/dL Normal 74-106 [facility] Comment on above: Performed By: #### L 100.0100, L500.4050 #### [facility] [address] [place], [address] Potassium [Moles/Vol] 3.2 mmol/L Low 3.5-5.1 [facility] Comment on above: Performed By: #### L 100.0100, L500.4050 #### [facility] [address] [place], [address] Sodium [Moles/Vol] 142 mmol/L Normal 136-145 [facility] Comment on above: Performed By: #### L 100.0100, L500.4050 #### [facility] [address] [place], [address] Urea nitrogen [Mass/Vol] 7 mg/dL Normal 7-18 [facility] Comment on above: Performed By: #### L 100.0100, L500.4050 #### [facility] [address] [place], [address] Basophil percentageOrdered B y: Gomez Johansen on 12-21-2023 Basophils/100 WBC (Bld) 0.6 % 0-1 [facility] Chloride [Moles/Vol] 111 mmol/L 98-107 [facility] Eosinophils/100 WBC (Bld) 1.8 % 0-5 [facility] Glucose [Mass/Vol] 77 mg/dL 74-106 [facility] Hemoglobin (Bld) [Mass/Vol] 8.1 g/dL 12.0-15.0 [facility] Monocytes/100 WBC (Bld) 9.2 % 0-10 [facility] Neutrophils (Bld) [#/Vol] 6.5 10*3/uL 2.0-7.7 [facility] Neutrophils/100 WBC (Bld) 73.8 % 47-70 [facility] Potassium [Moles/Vol] 3.2 mmol/L 3.5-5.1 [facility] Sodium [Moles/Vol] 142 mmol/L 136-145 [facility] WBC (Bld) [#/Vol] 8.8 10*3/uL 4.4-11.0 [facility] Bedside Glucoseon 12-21-2023 FINGERSTICK GLU 138 mg/dL High 74-106 [facility] Comment on above: Result Comment: SYDNEY GEMENT OF PATIENT CARE PER NURSING PROTOCOL Performed By: #### L 501.080 #### [facility] [address] [place], [address] FINGERSTICK GLU 153 mg/dL High 74-106 [facility] Comment on above: Result Comment: SYDNEY GEMENT OF PATIENT CARE PER NURSING PROTOCOL Performed By: #### L 501.080 #### [facility] [address] [place], [address] FINGERSTICK GLU 152 mg/dL High 74-106 [facility] Comment on above: Result Comment: SYDNEY GEMENT OF PATIENT CARE PER NURSING PROTOCOL Performed By: #### L 501.080 #### [facility] [address] [place], [address] FINGERSTICK GLU 156 mg/dL High -106 [facility] Comment on above: Result Comment: SYDNEY GEMENT OF PATIENT CARE PER NURSING PROTOCOL Performed By: #### L 501.080 #### [facility] [address] [place], [address] FINGERSTICK GLU 297 mg/dL High 74-106 [facility] Comment on above: Result Comment: SYDNEY GEMENT OF PATIENT CARE PER NURSING PROTOCOL Performed By: #### L 501.080 #### [facility] [address] [place], [address] FINGERSTICK GLU 77 mg/dL Normal 74-106 [facility] Comment on above: Result Comment: SYDNEY GEMENT OF PATIENT CARE PER NURSING PROTOCOL Performed By: #### L 501.080 #### [facility] [address] [place], [address] CBC W/Diff, Automatedon 12-03 Absolute Lymph 1.19 X10 3/uL Normal 0.83-4.51 [facility] Comment on above: Performed By: #### L 501.080 #### [facility] [address] [place], [address] Absolute Neut 6.5 X10 3/uL Normal 2.0-7.7 [facility] Comment on above: Performed By: #### L 501.080 #### [facility] [address] [place], [address] Basophils/100 WBC (Bld) 0.6 % Normal 0-1 [facility] Comment on above: Performed By: #### L 501.080 #### [facility] [address] [place], [address] Eosinophils/100 WBC (Bld) 1.8 % Normal 0-5 [facility] Comment on above: Performed By: #### L 501.080 #### [facility] [address] [place], [address] Erythrocyte distribution width (RBC) [Ratio] 17.2 % High 11.6-14.6 [facility] Comment on above: Performed By: #### L 501.080 #### [facility] [address] [place], [address] Hematocrit (Bld) [Volume fraction] 25.5 % Low 37-47 [facility] Comment on above: Performed By: #### L 501.080 #### [facility] [address] [place], [address] Hemoglobin (Bld) [Mass/Vol] 8.1 g/dL Low 12.0-15.0 [facility] Comment on above: Performed By: #### L 501.080 #### [facility] [address] [place], [address] IG% 1.100 High 0.0-0.9 [facility] Comment on above: Result Comment: IG% - Immature Granulocytes (promyelocytes, myelocytes and metamyelocytes) > 1% indicates that a LEFT SHIFT is Present. Performed By: #### L 501.080 #### [facility] [address] [place], [address] Lymphocytes/100 WBC (Bld) 13.5 % Low 19-41 [facility] Comment on above: Performed By: #### L 501.080 #### [facility] [address] [place], [address] MCH (RBC) [Entitic mass] 28.7 pg Normal 27.0-32.0 [facility] Comment on above: Performed By: #### L 501.080 #### [facility] [address] [place], [address] MCHC (RBC) [Mass/Vol] 31.8 g/dL Low 32-36 [facility] Comment on above: Performed By: #### L 501.080 #### [facility] [address] [place], [address] MCV (RBC) [Entitic vol] 90.4 fL Normal 81-99 [facility] Comment on above: Performed By: #### L 501.080 #### [facility] [address] [place], [address] Monocytes/100 WBC (Bld) 9.2 % Normal 0-10 [facility] Comment on above: Performed By: #### L 501.080 #### [facility] [address] [place], [address] Neutrophils/100 WBC (Bld) 73.8 % High 47-70 [facility] Comment on above: Performed By: #### L 501.080 #### [facility] [address] [place], [address] Nucleated RBC (Bld) [#/Vol] 0 10*3/uL Normal 0-5 [facility] Comment on above: Performed By: #### L 501.080 #### [facility] [address] [place], [address] Platelet mean volume (Bld) [Entitic vol] 10.4 fL Normal 6.2-12.0 [facility] Comment on above: Performed By: #### L 501.080 #### [facility] [address] [place], [address] Platelets (Bld) [#/Vol] 199 10*3/uL Normal 150-450 [facility] Comment on above: Performed By: #### L 501.080 #### [facility] [address] [place], [address] RBC (Bld) [#/Vol] 2.82 10*6/uL Low 4.2-5.4 [facility] [facility] Comment on above: Performed By: #### L 501.080 #### [facility] [address] [place], [address] RDW SD 55.2 fl High 35.1-43.9 [facility] Comment on above: Performed By: #### L 501.080 #### [facility] [address] [place], [place], [address] WBC (Bld) [#/Vol] 8.8 10*3/uL Normal 4.4-11.0 [facility] Comment on above: Performed By: #### L 501.080 #### [facility] [address] [place], [place], [id number] Determination of erythrocyte mean corpuscular volume (MCV)Ordered By: Gomez Johansen on 12-21-2023 MCV (RBC) [Entitic vol] 90.4 fL 81-99 [facility] Erythrocyte distribution wid th ratioOrdered By: Gomezijeoma Johansen on 12-21-2023 Erythrocyte distribution width (RBC) [Ratio] 17.2 % 11.6-14.6 [facility] Erythrocyte distribution wid th standard deviationOrdered By: Gomezijeoma Johansen on 12-21-2023 Erythrocyte distribution width (RBC) [Entitic vol] 55.2 fL 35.1-43.9 [facility] Hematocrit Auto (Bld) [Volum e fraction]Ordered By: Gomezijeoma Johansen on 12-21-2023 Hematocrit (Bld) [Volume fraction] 25.5 % 37-47 [facility] Immature granulocytes/100 WB C Auto (Bld)Ordered By: Gomezijeoma Johansen on 12-21-2023 Immature granulocytes/100 WBC (Bld) 1.100 % 0.0-0.9 [facility] Comment on above: IG% - Immature Granu locytes (promyelocytes, myelocytes and metamyelocytes) > 1% indicates that a LEFT SHIFT is Present. Laboratory - Chemistry and C hemistry - challengeOrdered By: Gomez Johansen on 12-21-2023 CO2 [Moles/Vol] 27.0 mmol/L 21.0-32.0 [facility] Urea nitrogen/Creatinine [Mass ratio] 16.0 mg/mg 10-20 [facility] - Hematology and Cell countsOrdered By: Gomez Johansen on 12-21-2023 MCH (RBC) [Entitic mass] 28.7 pg 27.0-32.0 [facility] MCHC (RBC) [Mass/Vol] 31.8 g/dL 32-36 [facility] Nucleated RBC/100 WBC (Bld) [Ratio] 0 % 0-5 [facility] Platelet mean volume (Bld) [Entitic vol] 10.4 fL 6.2-12.0 [facility] Platelets (Bld) [#/Vol] 199 10*3/uL 150-450 [facility] No Panel InformationOrdered By: Gomez Johansen on 12-21-2023 Estimated Creatinine Clearance Calc 49.24 ml/min [facility] Estimated GFR (MDRD) Amer 179 mL/min >60 [facility] Comment on above: GFR Calc Estimated GFR (MDRD) Non-Af Amer 148 mL/min >60 [facility] Comment on above: Non- GFR Calc RBC Auto (Bld) [#/Vol]Ordere d By: Gomez Johansen on 12-21-2023 RBC (Bld) [#/Vol] 2.82 10*6/uL 4.2-5.4 [facility] Serum or plasma calcium haris urement (mass/volume)Ordered By: Gomez Johansen on 12-21-2023 Calcium [Mass/Vol] 8.3 mg/dL 8.5-10.1 [facility] Serum or plasma creatinine m easurement (mass/volume)Ordered By: Gomez Johansen on 12-21-2023 Creatinine [Mass/Vol] 0.44 mg/dL 0.55-1.02 [facility] Comment on above: The validity of the calculated GFR & GFRAA in patients over 70 years has not been determined. Clinical correlation is essential. Serum or plasma urea nitroge n measurement (mass/volume)Ordered By: Gomez Johansen on 12-21-2023 Urea nitrogen [Mass/Vol] 7 mg/dL 7-18 [facility] Thin prep Papanicolaou smear with manual screeningOrdered By: Gomez Johansen on 12-21-2023 Thin prep Papanicolaou smear with manual screening 4 5-15 [facility] Basic Metabolic Profile (BMP )on 02-18-2024 BUN/CRE 14.3 RATIO Normal 10-20 [facility] Comment on above: Performed By: #### L 100.0100, L500.2500 ####[facility] [address] [place], [address] CA,Total 7.9 mg/dL Low 8.5-10.1 [facility] Comment on above: Performed By: #### L 100.0100, L500.2500 ####[facility] [address] [place], [address] Chloride [Moles/Vol] 109 mmol/L High 98-107 [facility] Comment on above: Performed By: #### L 100.0100, L500.2500 ####[facility] [address] [place], [address] CO2 [Moles/Vol] 30.0 mmol/L Normal 21.0-32.0 [facility] Comment on above: Performed By: #### L 100.0100, L500.2500 ####[facility] [address] [place], [address] Creatinine [Mass/Vol] 0.49 mg/dL Low 0.55-1.02 [facility] Comment on above: Result Comment: The validity of the calculated GFR GFRAA in patients over 70 years has not been determined. Clinical correlation is essential. Performed By: #### L 100.0100, L500.2500 ####[facility] [address] [place], [address] ECRCL 49.24 ml/min Normal [facility] Comment on above: Performed By: #### L 100.0100, L500.2500 ####[facility] [address] [place], [address] EST GFR - AA 156 mL/min Normal >60 [facility] Comment on above: Result Comment: Afri can Guinean GFR Calc Performed By: #### L 100.0100, L500.2500 ####[facility] [address] [place], [address] GAP 3 Low 5-15 [facility] Comment on above: Performed By: #### L 100.0100, L500.2500 ####[facility] [address] [place], [address] GFR/1.73 sq M.predicted among non-blacks MDRD (S/P/Bld) [Vol rate/Area] 129 mL/min/{1.73_m2} Normal >60 [facility] Comment on above: Result Comment: Non- GFR Calc Performed By: #### L 100.0100, L500.2500 ####[facility] [address] [place], [address] Glucose [Mass/Vol] 87 mg/dL Normal 74-106 [facility] Comment on above: Performed By: #### L 100.0100, L500.2500 ####[facility] [address] [place], [address] Potassium [Moles/Vol] 2.9 mmol/L Low 3.5-5.1 [facility] Comment on above: Performed By: #### L 100.0100, L500.2500 ####[facility] [address] [place], [address] Sodium [Moles/Vol] 142 mmol/L Normal 136-145 [facility] Comment on above: Performed By: #### L 100.0100, L500.2500 ####[facility] [address] [place], [address] Urea nitrogen [Mass/Vol] 7 mg/dL Normal 7-18 [facility] Comment on above: Performed By: #### L 100.0100, L500.2500 ####[facility] [address] [place], [address] Bedside Glucoseon 12-20-2023 FINGERSTICK GLU 249 mg/dL High 74-106 [facility] Comment on above: Result Comment: SYDNEY GEMENT OF PATIENT CARE PER NURSING PROTOCOL Performed By: #### L 501.080 ####[facility] [address] [place], [address] FINGERSTICK GLU 222 mg/dL High 74-106 [facility] Comment on above: Result Comment: SYDNEY GEMENT OF PATIENT CARE PER NURSING PROTOCOL Performed By: #### L 501.080 #### [facility] [address] [place], [address] FINGERSTICK GLU 77 mg/dL Normal 74-106 [facility] Comment on above: Result Comment: SYDNEY GEMENT OF PATIENT CARE PER NURSING PROTOCOL Performed By: #### L 501.080 ####[facility] [address] [place], [address] CBC W/Diff, Automatedon 12-03 Absolute Lymph 1.07 X10 3/uL Normal 0.83-4.51 [facility] Comment on above: Performed By: #### L 100.0100, L500.2500 ####[facility] [address] [place], [address] Absolute Neut 6.0 X10 3/uL Normal 2.0-7.7 [facility] Comment on above: Performed By: #### L 100.0100, L500.2500 ####[facility] [address] [place], [address] Basophils/100 WBC (Bld) 0.6 % Normal 0-1 [facility] Comment on above: Performed By: #### L 100.0100, L500.2500 ####[facility] [address] [place], [address] Eosinophils/100 WBC (Bld) 2.2 % Normal 0-5 [facility] Comment on above: Performed By: #### L 100.0100, L500.2500 ####[facility] [address] [place], [address] Erythrocyte distribution width (RBC) [Ratio] 17.7 % High 11.6-14.6 [facility] Comment on above: Performed By: #### L 100.0100, L500.2500 ####[facility] [address] [place], [address] Hematocrit (Bld) [Volume fraction] 24.8 % Low 37-47 [facility] Comment on above: Performed By: #### L 100.0100, L500.2500 ####[facility] [address] [place], [address] Hemoglobin (Bld) [Mass/Vol] 8.1 g/dL Low 12.0-15.0 [facility] Comment on above: Performed By: #### L 100.0100, L500.2500 ####[facility] [address] [place], [address] IG% 1.600 High 0.0-0.9 [facility] Comment on above: Result Comment: IG% - Immature Granulocytes (promyelocytes, myelocytes and metamyelocytes) > 1% indicates that a LEFT SHIFT is Present. Performed By: #### L 100.0100, L500.2500 ####[facility] [address] [place], [address] Lymphocytes/100 WBC (Bld) 13.0 % Low 19-41 [facility] Comment on above: Performed By: #### L 100.0100, L500.2500 ####[facility] [address] [place], [address] MCH (RBC) [Entitic mass] 29.2 pg Normal 27.0-32.0 [facility] Comment on above: Performed By: #### L 100.0100, L500.2500 ####[facility] [address] [place], [address] MCHC (RBC) [Mass/Vol] 32.7 g/dL Normal 32-36 [facility] Comment on above: Performed By: #### L 100.0100, L500.2500 ####[facility] [address] [place], [address] MCV (RBC) [Entitic vol] 89.5 fL Normal 81-99 [facility] Comment on above: Performed By: #### L 100.0100, L500.2500 ####[facility] [address] [place], [address] Monocytes/100 WBC (Bld) 9.4 % Normal 0-10 [facility] Comment on above: Performed By: #### L 100.0100, L500.2500 ####[facility] [address] [place], [address] Neutrophils/100 WBC (Bld) 73.2 % High 47-70 [facility] Comment on above: Performed By: #### L 100.0100, L500.2500 ####[facility] [address] [place], [address] Nucleated RBC (Bld) [#/Vol] 0 10*3/uL Normal 0-5 [facility] Comment on above: Performed By: #### L 100.0100, L500.2500 ####[facility] [address] [place], [address] Platelet mean volume (Bld) [Entitic vol] 10.2 fL Normal 6.2-12.0 [facility] Comment on above: Performed By: #### L 100.0100, L500.2500 ####[facility] [address] [place], [address] Platelets (Bld) [#/Vol] 188 10*3/uL Normal 150-450 [facility] Comment on above: Performed By: #### L 100.0100, L500.2500 ####[facility] [address] [place], [address] RBC (Bld) [#/Vol] 2.77 10*6/uL Low 4.2-5.4 [facility] Comment on above: Performed By: #### L 100.0100, L500.2500 ####[facility] [address] [place], [address] RDW SD 54.5 fl High 35.1-43.9 [facility] Comment on above: Performed By: #### L 100.0100, L500.2500 ####[facility] [address] [place], [address] WBC (Bld) [#/Vol] 8.2 10*3/uL Normal 4.4-11.0 [facility] Comment on above: Performed By: #### L 100.0100, L500.2500 ####[facility] [address] [place], [address] Bedside Glucoseon 12-19-2023 FINGERSTICK GLU 170 mg/dL High 74-106 [facility] Comment on above: Result Comment: SYDNEY GEMENT OF PATIENT CARE PER NURSING PROTOCOL Performed By: #### L 501.080 #### [facility] [address] [place], [address] FINGERSTICK GLU 207 mg/dL High 74-106 [facility] Comment on above: Result Comment: SYDNEY GEMENT OF PATIENT CARE PER NURSING PROTOCOL Performed By: #### L 100.0100, L500.4050 #### [facility] [address] [place], [address] FINGERSTICK GLU 119 mg/dL High 74-106 [facility] Comment on above: Result Comment: SYDNEY GEMENT OF PATIENT CARE PER NURSING PROTOCOL Performed By: #### L 501.080 #### [facility] [address] [place], [address] FINGERSTICK GLU 191 mg/dL High 74-106 [facility] Comment on above: Result Comment: SYDNEY GEMENT OF PATIENT CARE PER NURSING PROTOCOL Performed By: #### L 501.080 #### [facility] [address] [place], [address] FINGERSTICK GLU 153 mg/dL High 74-106 [facility] Comment on above: Result Comment: SYDNEY GEMENT OF PATIENT CARE PER NURSING PROTOCOL Performed By: #### L 501.080 #### [facility] [address] [place], [address] CBC W/Diff, Automatedon 12-03 Absolute Lymph 1.07 X10 3/uL Normal 0.83-4.51 [facility] Comment on above: Performed By: #### L 501.080 #### [facility] [address] [place], [address] Absolute Neut 5.1 X10 3/uL Normal 2.0-7.7 [facility] Comment on above: Performed By: #### L 501.080 #### [facility] [address] [place], [address] Basophils/100 WBC (Bld) 0.7 % Normal 0-1 [facility] Comment on above: Performed By: #### L 501.080 #### [facility] [address] [place], [address] Eosinophils/100 WBC (Bld) 2.9 % Normal 0-5 [facility] Comment on above: Performed By: #### L 501.080 #### [facility] [address] [place], [address] Erythrocyte distribution width (RBC) [Ratio] 18.1 % High 11.6-14.6 [facility] Comment on above: Performed By: #### L 501.080 #### [facility] [address] [place], [address] Hematocrit (Bld) [Volume fraction] 24.2 % Low 37-47 [facility] Comment on above: Performed By: #### L 501.080 #### [facility] [address] [place], [address] IG% 2.500 High 0.0-0.9 [facility] Comment on above: Result Comment: IG% - Immature Granulocytes (promyelocytes, myelocytes and metamyelocytes) > 1% indicates that a LEFT SHIFT is Present. Performed By: #### L 501.080 #### [facility] [address] [place], [address] Lymphocytes/100 WBC (Bld) 14.7 % Low 19-41 [facility] Comment on above: Performed By: #### L 501.080 #### [facility] [address] [place], [address] MCH (RBC) [Entitic mass] 29.0 pg Normal 27.0-32.0 [facility] Comment on above: Performed By: #### L 501.080 #### [facility] [address] [place], [address] MCHC (RBC) [Mass/Vol] 33.1 g/dL Normal 32-36 [facility] Comment on above: Performed By: #### L 501.080 #### [facility] [address] [place], [address] MCV (RBC) [Entitic vol] 87.7 fL Normal 81-99 [facility] Comment on above: Performed By: #### L 501.080 #### [facility] [address] [place], [address] Monocytes/100 WBC (Bld) 9.8 % Normal 0-10 [facility] Comment on above: Performed By: #### L 501.080 #### [facility] [address] [place], [address] Neutrophils/100 WBC (Bld) 69.4 % Normal 47-70 [facility] Comment on above: Performed By: #### L 501.080 #### [facility] [address] [place], [address] Nucleated RBC (Bld) [#/Vol] 0 10*3/uL Normal 0-5 [facility] Comment on above: Performed By: #### L 501.080 #### [facility] [address] [place], [address] Platelet mean volume (Bld) [Entitic vol] 10.0 fL Normal 6.2-12.0 [facility] Comment on above: Performed By: #### L 501.080 #### [facility] [address] [place], [address] Platelets (Bld) [#/Vol] 168 10*3/uL Normal 150-450 [facility] Comment on above: Performed By: #### L 501.080 #### [facility] [address] [place], [address] RBC (Bld) [#/Vol] 2.76 10*6/uL Low 4.2-5.4 [facility] Comment on above: Performed By: #### L 501.080 #### [facility] [address] [place], [address] RDW SD 53.6 fl High 35.1-43.9 [facility] Comment on above: Performed By: #### L 501.080 #### [facility] [address] [place], [address] WBC (Bld) [#/Vol] 7.3 10*3/uL Normal 4.4-11.0 [facility] Comment on above: Performed By: #### L 501.080 #### [facility] [address] [place], [address] HH, Hemoglobin AND Hematocri ton 12-19-2023 Hematocrit (Bld) [Volume fraction] 24.0 % Low 37-47 [facility] Comment on above: Performed By: #### L 501.080 #### [facility] [address] [place], [address] Hemoglobin (Bld) [Mass/Vol] 8.0 g/dL Low 12.0-15.0 [facility] Comment on above: Performed By: #### L 501.080 #### [facility] [address] [place], [address] MR/PN.GIon 12-19-2023 MR/PN.GI [facility] Medical Records Department [address] [place] [address] Progress Note - GI 12/19/23 [id number] MR#: [id number] Acct: [id number] Name: KELLIE DOZIER MARIETTA Rep #: [id number] : [id number] From: Cullen Ferrer DO PCP: Dr. Santo Love MD Status:ADM IN Location: [place] [address] Subjective Subjective Patient underwent repeat emergent upper [...] (Auto) 69.4, Lymph % (Auto) 14.7 L, [place] % (Auto) 9.8, Eos % (Auto) 2.9, [...] is a 78-year-old female who presented to [facility] ED on 12/11/2023 with hematemesis. Findings: The [...] Cosigner Signature (if applicable): CC: Signed Normal [facility] Basic Metabolic Profile (BMP )on 12-18-2023 BUN/CRE 26.4 RATIO High 10-20 [facility] Comment on above: Performed By: #### L 501.080 #### [facility] [address] [place], [address] CA,Total 7.9 mg/dL Low 8.5-10.1 [facility] Comment on above: Performed By: #### L 501.080 #### [facility] [address] [place], [address] Chloride [Moles/Vol] 113 mmol/L High 98-107 [facility] Comment on above: Performed By: #### L 501.080 #### [facility] [address] [place], [address] CO2 [Moles/Vol] 25.0 mmol/L Normal 21.0-32.0 [facility] Comment on above: Performed By: #### L 501.080 #### [facility] [address] [place], [address] Creatinine [Mass/Vol] 0.57 mg/dL Normal 0.55-1.02 [facility] Comment on above: Result Comment: The validity of the calculated GFR GFRAA in patients over 70 years has not been determined. Clinical correlation is essential. Performed By: #### L 501.080 #### [facility] [address] [place], [address] ECRCL 49.24 ml/min Normal [facility] Comment on above: Performed By: #### L 501.080 #### [facility] [address] [place], [address] EST GFR - AA 132 mL/min Normal >60 [facility] Comment on above: Result Comment: Afri can Guinean GFR Calc Performed By: #### L 501.080 #### [facility] [address] [place], [address] GAP 4 Low 5-15 [facility] Comment on above: Performed By: #### L 501.080 #### [facility] [address] [place], [address] GFR/1.73 sq M.predicted among non-blacks MDRD (S/P/Bld) [Vol rate/Area] 109 mL/min/{1.73_m2} Normal >60 [facility] Comment on above: Result Comment: Non- GFR Calc Performed By: #### L 501.080 #### [facility] [address] [place], [address] Glucose [Mass/Vol] 206 mg/dL High 74-106 [facility] Comment on above: Result Comment: Gluc ose result greater than or equal to 200 mg/dL suggests DIABETES MELLITUS per A.D.A. criteria. Performed By: #### L 501.080 #### [facility] [address] [place], [address] Potassium [Moles/Vol] 3.5 mmol/L Normal 3.5-5.1 [facility] Comment on above: Performed By: #### L 501.080 #### [facility] [address] [place], [address] Sodium [Moles/Vol] 142 mmol/L Normal 136-145 [facility] Comment on above: Performed By: #### L 501.080 #### [facility] [address] [place], [address] Urea nitrogen [Mass/Vol] 15 mg/dL Normal 7-18 [facility] Comment on above: Performed By: #### L 501.080 #### [facility] [address] [place], [address] Bedside Glucoseon 12-18-2023 FINGERSTICK GLU 194 mg/dL High 74-106 [facility] Comment on above: Result Comment: SYDNEY ANDERSON OF PATIENT CARE PER NURSING PROTOCOL Performed By: #### L 501.080 #### [facility] [facility] [address] [place], [address] FINGERSTICK GLU 222 mg/dL High 74-106 [facility] Comment on above: Result Comment: SYDNEY GEMENT OF PATIENT CARE PER NURSING PROTOCOL Performed By: #### L 501.080 ####[facility] [address] [place], [address] FINGERSTICK GLU 171 mg/dL High 74-106 [facility] Comment on above: Result Comment: SYDNEY GEMENT OF PATIENT CARE PER NURSING PROTOCOL Performed By: #### L 501.080 #### [facility] [address] [place], [address] FINGERSTICK GLU 199 mg/dL High 74-106 [facility] Comment on above: Result Comment: SYDNEY GEMENT OF PATIENT CARE PER NURSING PROTOCOL Performed By: #### L 501.080 ####[facility] [address] [place], [address] CBC W/Diff, Automatedon 12-03 Absolute Lymph 1.15 X10 3/uL Normal 0.83-4.51 [facility] Comment on above: Order Comment: REDRA W. PREVIOUS SPECIMEN REJECTED DUE TOQNS. 12/18/23 0810 Genet Wood. Performed By: #### L 501.080 #### [facility] [address] [place], [address] Absolute Neut 6.5 X10 3/uL Normal 2.0-7.7 [facility] Comment on above: Order Comment: REDRA W. PREVIOUS SPECIMEN REJECTED DUE TOQNS. 12/18/23 0810 Genet Wood. Result Comment: This specimen has been REJECTED due to Laboratory criteria: Quanity Not Sufficient. ONI has been notified of need of recollection. 12/18/23 0809 Genet Wood Performed By: #### L 501.080 #### [facility] [address] [place], [address] Basophils/100 WBC (Bld) 0.8 % Normal 0-1 [facility] Comment on above: Order Comment: REDRA W. PREVIOUS SPECIMEN REJECTED DUE TOQNS. 12/18/2310 Genet R [place]. Performed By: #### L 501.080 #### [facility] [address] [place], [address] Eosinophils/100 WBC (Bld) 2.9 % Normal 0-5 [facility] Comment on above: Order Comment: REDRA W. PREVIOUS SPECIMEN REJECTED DUE TOQNS. 12/18/23809 Genet R [place]. Performed By: #### L 501.080 #### [facility] [address] [place], [address] Erythrocyte distribution width (RBC) [Ratio] 18.3 % High 11.6-14.6 [facility] Comment on above: Order Comment: REDRA W. PREVIOUS SPECIMEN REJECTED DUE TOQNS. 12/18/23809 Genet R [place]. Result Comment: This specimen has been REJECTED due to Laboratory criteria: Quanity Not Sufficient. ONI has been notified of need of recollection. 12/18/23808 Genet R Nina Performed By: #### L 501.080 #### [facility] [address] [place], [address] Hematocrit (Bld) [Volume fraction] 26.1 % Low 37-47 [facility] Comment on above: Order Comment: REDRA W. PREVIOUS SPECIMEN REJECTED DUE TOQNS. 12/18/2310 Genet R Nina. Result Comment: This specimen has been REJECTED due to Laboratory criteria: Quanity Not Sufficient. ONI has been notified of need of recollection. 12/18/23808 Genet R Nina Performed By: #### L 501.080 #### [facility] [address] [place], [address] Hemoglobin (Bld) [Mass/Vol] 8.5 g/dL Low 12.0-15.0 [facility] Comment on above: Order Comment: REDRA W. PREVIOUS SPECIMEN REJECTED DUE TOQNS. 12/18/2310 Genet R Nina. Result Comment: This specimen has been REJECTED due to Laboratory criteria: Quanity Not Sufficient. ONI has been notified of need of recollection. 12/18/23808 Genet R Nina Performed By: #### L 501.080 #### [facility] [address] [place], [address] IG% 4.100 High 0.0-0.9 [facility] Comment on above: Order Comment: REDRA W. PREVIOUS SPECIMEN REJECTED DUE TOQNS. 12/18/23809 Genet R Nina. Result Comment: IG% - Immature Granulocytes (promyelocytes, myelocytes and metamyelocytes) > 1% indicates that a LEFT SHIFT is Present. Performed By: #### L 501.080 #### [facility] [address] [place], [address] Lymphocytes/100 WBC (Bld) 12.3 % Low 19-41 [facility] Comment on above: Order Comment: REDRA W. PREVIOUS SPECIMEN REJECTED DUE TOQNS. 12/18/23809 Genet R [place]. Performed By: #### L 501.080 #### [facility] [address] [place], [address] MCH (RBC) [Entitic mass] 28.8 pg Normal 27.0-32.0 [facility] Comment on above: Order Comment: REDRA W. PREVIOUS SPECIMEN REJECTED DUE TOQNS. 12/18/2310 Genet R [place]. Result Comment: This specimen has been REJECTED due to Laboratory criteria: Quanity Not Sufficient. ONI has been notified of need of recollection. 12/18/23808 Genet R [place] Performed By: #### L 501.080 #### [facility] [address] [place], [address] MCHC (RBC) [Mass/Vol] 32.6 g/dL Normal 32-36 [facility] Comment on above: Order Comment: REDRA W. PREVIOUS SPECIMEN REJECTED DUE TOQNS. 12/18/2310 Genet R [place]. Result Comment: This specimen has been REJECTED due to Laboratory criteria: Quanity Not Sufficient. ONI has been notified of need of recollection. 12/18/23808 Genet R [place] Performed By: #### L 501.080 #### [facility] [address] [place], [address] MCV (RBC) [Entitic vol] 88.5 fL Normal 81-99 [facility] Comment on above: Order Comment: REDRA W. PREVIOUS SPECIMEN REJECTED DUE TOQNS. 12/18/2310 Genet R Nina. Result Comment: This specimen has been REJECTED due to Laboratory criteria: Quanity Not Sufficient. ONI has been notified of need of recollection. 12/18/23808 Genet R Nina Performed By: #### L 501.080 #### [facility] [address] [place], [address] Monocytes/100 WBC (Bld) 9.9 % Normal 0-10 [facility] Comment on above: Order Comment: REDRA W. PREVIOUS SPECIMEN REJECTED DUE TOQNS. 12/18/2310 Genet R [place]. Performed By: #### L 501.080 #### [facility] [address] [place], [address] Neutrophils/100 WBC (Bld) 70.0 % Normal 47-70 [facility] Comment on above: Order Comment: REDRA W. PREVIOUS SPECIMEN REJECTED DUE TOQNS. 12/18/2310 Genet R Nina. Result Comment: This specimen has been REJECTED due to Laboratory criteria: Quanity Not Sufficient. ONI has been notified of need of recollection. 12/18/23808 Genet R [place] Performed By: #### L 501.080 #### [facility] [address] [place], [address] Nucleated RBC (Bld) [#/Vol] 0.4 10*3/uL Normal 0-5 [facility] Comment on above: Order Comment: REDRA W. PREVIOUS SPECIMEN REJECTED DUE TOQNS. 12/18/23809 Genet R [place]. Performed By: #### L 501.080 #### [facility] [address] [place], [address] Platelet mean volume (Bld) [Entitic vol] 10.2 fL Normal 6.2-12.0 [facility] Comment on above: Order Comment: REDRA W. PREVIOUS SPECIMEN REJECTED DUE TOQNS. 12/18/23809 Genet R [place]. Performed By: #### L 501.080 #### [facility] [address] [place], [address] Platelets (Bld) [#/Vol] 152 10*3/uL Normal 150-450 [facility] Comment on above: Order Comment: REDRA W. PREVIOUS SPECIMEN REJECTED DUE TOQNS. 12/18/2310 Genet R Nina. Result Comment: This specimen has been REJECTED due to Laboratory criteria: Quanity Not Sufficient. ONI has been notified of need of recollection. 12/18/23808 Genet R [place] Performed By: #### L 501.080 #### [facility] [address] [place], [address] RBC (Bld) [#/Vol] 2.95 10*6/uL Low 4.2-5.4 [facility] Comment on above: Order Comment: REDRA W. PREVIOUS SPECIMEN REJECTED DUE TOQNS. 12/18/23809 Genet R [place]. Result Comment: This specimen has been REJECTED due to Laboratory criteria: Quanity Not Sufficient. ONI has been notified of need of recollection. 12/18/23808 Genet R Nina Performed By: #### L 501.080 #### [facility] [address] [place], [address] RDW SD 54.5 fl High 35.1-43.9 [facility] Comment on above: Order Comment: REDRA W. PREVIOUS SPECIMEN REJECTED DUE TOQNS. 12/18/23809 Genet Sosa [place]. Result Comment: This specimen has been REJECTED due to Laboratory criteria: Quanity Not Sufficient. ONI has been notified of need of recollection. 12/18/23808 Genet R [place] Performed By: #### L 501.080 #### [facility] [address] [place], [address] WBC (Bld) [#/Vol] 9.3 10*3/uL Normal 4.4-11.0 [facility] Comment on above: Order Comment: REDRA W. PREVIOUS SPECIMEN REJECTED DUE TOQNS. 12/18/23809 Genet R [place]. Result Comment: This specimen has been REJECTED due to Laboratory criteria: Quanity Not Sufficient. ONI has been notified of need of recollection. 12/18/23808 Genet Sosa Nina Performed By: #### L 501.080 #### [facility] [address] [place], [address] HH, Hemoglobin AND Hematocri ton 12-18-2023 Hematocrit (Bld) [Volume fraction] 24.9 % Low 37-47 [facility] Comment on above: Performed By: #### L 100.0100, L500.4050 #### [facility] [address] [place], [address] Hemoglobin (Bld) [Mass/Vol] 8.2 g/dL Low 12.0-15.0 [facility] Comment on above: Performed By: #### L 100.0100, L500.4050 #### [facility] [address] [place], [address] Basic Metabolic Profile (BMP )on 12-17-2023 BUN/CRE 36.4 RATIO High 10-20 [facility] Comment on above: Performed By: #### L 501.080 #### [facility] [address] [place], [address] CA,Total 7.8 mg/dL Low 8.5-10.1 [facility] Comment on above: Performed By: #### L 501.080 #### [facility] [address] [place], [address] Chloride [Moles/Vol] 111 mmol/L High 98-107 [facility] Comment on above: Performed By: #### L 501.080 #### [facility] [address] [place], [address] CO2 [Moles/Vol] 26.0 mmol/L Normal 21.0-32.0 [facility] Comment on above: Performed By: #### L 501.080 #### [facility] [address] [place], [address] Creatinine [Mass/Vol] 0.66 mg/dL Normal 0.55-1.02 [facility] Comment on above: Result Comment: The validity of the calculated GFR GFRAA in patients over 70 years has not been determined. Clinical correlation is essential. Performed By: #### L 501.080 #### [facility] [address] [place], [address] ECRCL 49.24 ml/min Normal [facility] Comment on above: Performed By: #### L 501.080 #### [facility] [address] [place], [address] EST GFR - AA 111 mL/min Normal >60 [facility] Comment on above: Result Comment: Afri can Guine[place] GFR Calc Performed By: #### L 501.080 #### [facility] [address] [place], [address] GAP 1 Low 5-15 [facility] Comment on above: Performed By: #### L 501.080 #### [facility] [address] [place], [address] GFR/1.73 sq M.predicted among non-blacks MDRD (S/P/Bld) [Vol rate/Area] 92 mL/min/{1.73_m2} Normal >60 [facility] Comment on above: Result Comment: Non- GFR Calc Performed By: #### L 501.080 #### [facility] [address] [place], [address] Glucose [Mass/Vol] 140 mg/dL High 74-106 [facility] Comment on above: Result Comment: Fast ing Glucose result greater than or equal to 126 mg/dL suggests DIABETES MELLITUS per A.D.A. criteria. Performed By: #### L 501.080 #### [facility] [address] [place], [address] Potassium [Moles/Vol] 3.2 mmol/L Low 3.5-5.1 [facility] Comment on above: Performed By: #### L 501.080 #### [facility] [address] [place], [address] Sodium [Moles/Vol] 138 mmol/L Normal 136-145 [facility] Comment on above: Performed By: #### L 501.080 #### [facility] [address] [place], [address] Urea nitrogen [Mass/Vol] 24 mg/dL High 7-18 [facility] Comment on above: Performed By: #### L 501.080 #### [facility] [address] [place], [address] Bedside Glucoseon 12-17-2023 FINGERSTICK GLU 96 mg/dL Normal 74-106 [facility] Comment on above: Result Comment: SYDNEY ANDERSON OF PATIENT CARE PER NURSING PROTOCOL Performed By: #### L 501.080 ####[facility] [address] [place], [address] FINGERSTICK GLU 130 mg/dL High 74-106 [facility] Comment on above: Result Comment: SYDNEY GEMENT OF PATIENT CARE PER NURSING PROTOCOL Performed By: #### L 501.080 #### [facility] [address] [place], [address] FINGERSTICK GLU 209 mg/dL High 74-106 [facility] Comment on above: Result Comment: SYDNEY GEMENT OF PATIENT CARE PER NURSING PROTOCOL Performed By: #### L 501.080 #### [facility] [address] [place], [address] FINGERSTICK GLU 259 mg/dL High 74-106 [facility] Comment on above: Result Comment: SYDNEY GEMENT OF PATIENT CARE PER NURSING PROTOCOL Performed By: #### L 501.080 #### [facility] [address] [place], [address] CBC W/Diff, Automatedon 02-11 06-2023 Absolute Lymph 1.66 X10 3/uL Normal 0.83-4.51 [facility] Comment on above: Performed By: #### L 100.0100 ####[facility] [address] [place], [address] Absolute Neut 8.8 X10 3/uL High 2.0-7.7 [facility] Comment on above: Performed By: #### L 100.0100 ####[facility] [address] [place], [address] Basophils/100 WBC (Bld) 0.4 % Normal 0-1 [facility] Comment on above: Performed By: #### L 100.0100 ####[facility] [address] [place], [address] Eosinophils/100 WBC (Bld) 2.7 % Normal 0-5 [facility] Comment on above: Performed By: #### L 100.0100 ####[facility] [address] [place], [address] Erythrocyte distribution width (RBC) [Ratio] 15.5 % High 11.6-14.6 [facility] Comment on above: Performed By: #### L 100.0100 ####[facility] [address] [place], [address] Hematocrit (Bld) [Volume fraction] 20.1 % Low 37-47 [facility] Comment on above: Performed By: #### L 100.0100 ####[facility] [address] [place], [address] Hemoglobin (Bld) [Mass/Vol] 6.8 g/dL Low 12.0-15.0 [facility] Comment on above: Performed By: #### L 100.0100 ####[facility] [address] [place], [address] IG% 2.800 High 0.0-0.9 [facility] Comment on above: Result Comment: IG% - Immature Granulocytes (promyelocytes, myelocytes and metamyelocytes) > 1% indicates that a LEFT SHIFT is Present. Performed By: #### L 100.0100 ####[facility] [address] [place], [address] Lymphocytes/100 WBC (Bld) 13.8 % Low 19-41 [facility] Comment on above: Performed By: #### L 100.0100 ####[facility] [address] [place], [address] MCH (RBC) [Entitic mass] 31.1 pg Normal 27.0-32.0 [facility] Comment on above: Performed By: #### L 100.0100 ####[facility] [address] [place], [address] MCHC (RBC) [Mass/Vol] 33.8 g/dL Normal 32-36 [facility] Comment on above: Performed By: #### L 100.0100 ####[facility] [address] [place], [address] MCV (RBC) [Entitic vol] 91.8 fL Normal 81-99 [facility] Comment on above: Performed By: #### L 100.0100 ####[facility] [address] [place], [address] Monocytes/100 WBC (Bld) 7.3 % Normal 0-10 [facility] Comment on above: Performed By: #### L 100.0100 ####[facility] [address] [place], [address] Neutrophils/100 WBC (Bld) 73.0 % High 47-70 [facility] Comment on above: Performed By: #### L 100.0100 ####[facility] [address] [place], [address] Nucleated RBC (Bld) [#/Vol] 0.7 10*3/uL Normal 0-5 [facility] Comment on above: Performed By: #### L 100.0100 ####[facility] [address] [place], [address] Platelet mean volume (Bld) [Entitic vol] 10.1 fL Normal 6.2-12.0 [facility] Comment on above: Performed By: #### L 100.0100 ####[facility] [address] [place], [address] Platelets (Bld) [#/Vol] 144 10*3/uL Low 150-450 [facility] Comment on above: Performed By: #### L 100.0100 ####[facility] [address] [place], [address] RBC (Bld) [#/Vol] 2.19 10*6/uL Low 4.2-5.4 [facility] Comment on above: Performed By: #### L 100.0100 ####[facility] [address] [place], [address] RDW SD 49.6 fl High 35.1-43.9 [facility] Comment on above: Performed By: #### L 100.0100 ####[facility] [address] [place], [address] WBC (Bld) [#/Vol] 12.0 10*3/uL High 4.4-11.0 [facility] Comment on above: Performed By: #### L 100.0100 ####[facility] [address] [place], [address] Consultation - Urologyon Consultation - Urology [facility] Medical Records Department [address] [place] [address] Consultation - Urology 12/17/23 1821 MR#: [id number] Acct: [id number] Name: KELLIE DOZIER MAREITTA Rep #: [id number] : 1945 78 From: Nitish Sood MD PCP: Dr. Santo Love MD Status:ADM IN Location: [place] [id number] HPI Consult Data Date of Consult: 12/17/23 [...] office for an appointment coming with questions. [facility] Medical History Atherosclerotic heart disease of [place] coronary artery without angina pectoris Essential hypertension [...] (Auto) 13 (more content not included)... Normal [facility] HH, Hemoglobin AND Hematocri ton 12-17-2023 Hematocrit (Bld) [Volume fraction] 26.1 % Low 37-47 [facility] Comment on above: Performed By: #### L 100.0600 ####[facility] [address] [place], [address] Hemoglobin (Bld) [Mass/Vol] 8.7 g/dL Low 12.0-15.0 [facility] Comment on above: Performed By: #### L 100.0600 ####[facility] [address], [address] MR/PN.GIon 12-17-2023 MR/PN.GI [facility] Medical Records Department [address] [address] Progress Note - GI 12/17/23 1739 MR#: [id number] Acct: [id number] Name: KELLIE DOZIER Rep #: [id number] : 1945 78 From: Cullen Friend DO PCP: Dr. Santo Love MD Status:ADM IN Location: [place] [address] Subjective Subjective Patient underwent repeat emergent upper [...] 73.0 H, Lymph % (Auto) 13.8 L, [place] % (Auto) 7.3, Eos % (Auto) 2.7, [...] is a 78-year-old female who presented to [facility] ED on 12/11/2023 with hematemesis. Findings: The [...] was n (more content not included)... Normal [facility] Basic Metabolic Profile (BMP )on 12-16-2023 BUN/CRE 44.7 RATIO High 10-20 [facility] Comment on above: Performed By: #### L 100.0500, L500.2500 ####[facility] [address] [place], [address] CA,Total 7.9 mg/dL Low 8.5-10.1 [facility] Comment on above: Performed By: #### L 100.0500, L500.2500 ####[facility] [address] [place], [address] Chloride [Moles/Vol] 111 mmol/L High 98-107 [facility] Comment on above: Performed By: #### L 100.0500, L500.2500 ####[facility] [address] [place], [address] CO2 [Moles/Vol] 22.0 mmol/L Normal 21.0-32.0 [facility] Comment on above: Performed By: #### L 100.0500, L500.2500 ####[facility] [address] [place], [address] Creatinine [Mass/Vol] 0.76 mg/dL Normal 0.55-1.02 [facility] Comment on above: Result Comment: The validity of the calculated GFR GFRAA in patients over 70 years has not been determined. Clinical correlation is essential. Performed By: #### L 100.0500, L500.2500 ####[facility] [address] [place], [address] ECRCL 49.24 ml/min Normal [facility] Comment on above: Performed By: #### L 100.0500, L500.2500 ####[facility] [address] [place], [address] EST GFR - AA 94 mL/min Normal >60 [facility] Comment on above: Result Comment: Afri can [place]ine[place] GFR Calc Performed By: #### L 100.0500, L500.2500 ####[facility] [address] [place], [address] GAP 8 Normal 5-15 [facility] Comment on above: Performed By: #### L 100.0500, L500.2500 ####[facility] [address] [place], [address] GFR/1.73 sq M.predicted among non-blacks MDRD (S/P/Bld) [Vol rate/Area] 78 mL/min/{1.73_m2} Normal >60 [facility] Comment on above: Result Comment: Non- GFR Calc Performed By: #### L 100.0500, L500.2500 ####[facility] [address] [place], [address] Glucose [Mass/Vol] 270 mg/dL High 74-106 [facility] Comment on above: Result Comment: Gluc ose result greater than or equal to 200 mg/dL suggests DIABETES MELLITUS per A.D.A. criteria. Performed By: #### L 100.0500, L500.2500 ####[facility] [address] [place], [address] Potassium [Moles/Vol] 3.8 mmol/L Normal 3.5-5.1 [facility] Comment on above: Performed By: #### L 100.0500, L500.2500 ####[facility] [address] [place], [address] Sodium [Moles/Vol] 141 mmol/L Normal 136-145 [facility] Comment on above: Performed By: #### L 100.0500, L500.2500 ####[facility] [address] [place], [address] Urea nitrogen [Mass/Vol] 34 mg/dL High 7-18 [facility] Comment on above: Performed By: #### L 100.0500, L500.2500 ####[facility] [address] [place], [address] Bedside Glucoseon 12-16-2023 FINGERSTICK GLU 239 mg/dL High 74-106 [facility] Comment on above: Result Comment: SYDNEY GEMENT OF PATIENT CARE PER NURSING PROTOCOL Performed By: #### L 501.080 #### [facility] Laboratory [address] [place], [address] FINGERSTICK GLU 424 mg/dL High 74-106 [facility] Comment on above: Result Comment: SYDNEY GEMENT OF PATIENT CARE PER NURSING PROTOCOL Performed By: #### L 100.0100, L500.4050 #### [facility] [address] [place], [address] FINGERSTICK GLU 246 mg/dL High 74-106 [facility] Comment on above: Result Comment: SYDNEY GEMENT OF PATIENT CARE PER NURSING PROTOCOL Performed By: #### L 501.080 ####[facility] [address] [place], [address] CBC-Complete Blood Cnt No Di ffon 12-16-2023 Erythrocyte distribution width (RBC) [Ratio] 15.9 % High 11.6-14.6 [facility] Comment on above: Performed By: #### L 100.0500, L500.2500 ####[facility] [address] [place], [address] Hematocrit (Bld) [Volume fraction] 19.7 % Low 37-47 [facility] Comment on above: Performed By: #### L 100.0500, L500.2500 ####[facility] [address] [place], [address] Hemoglobin (Bld) [Mass/Vol] 6.8 g/dL Low 12.0-15.0 [facility] Comment on above: Performed By: #### L 100.0500, L500.2500 ####[facility] [address] [place], [address] MCH (RBC) [Entitic mass] 30.8 pg Normal 27.0-32.0 [facility] Comment on above: Performed By: #### L 100.0500, L500.2500 ####[facility] [address] [place], [address] MCHC (RBC) [Mass/Vol] 34.5 g/dL Normal 32-36 [facility] Comment on above: Performed By: #### L 100.0500, L500.2500 ####[facility] [address] [place], [address] MCV (RBC) [Entitic vol] 89.1 fL Normal 81-99 [facility] Comment on above: Performed By: #### L 100.0500, L500.2500 ####[facility] [address] [place], [address] Platelet mean volume (Bld) [Entitic vol] 10.6 fL Normal 6.2-12.0 [facility] Comment on above: Performed By: #### L 100.0500, L500.2500 ####[facility] [address] [place], [address] Platelets (Bld) [#/Vol] 156 10*3/uL Normal 150-450 [facility] Comment on above: Performed By: #### L 100.0500, L500.2500 ####[facility] [address] [place], [address] RBC (Bld) [#/Vol] 2.21 10*6/uL Low 4.2-5.4 [facility] Comment on above: Performed By: #### L 100.0500, L500.2500 ####[facility] [address] [place], [address] RDW SD 49.7 fl High 35.1-43.9 [facility] Comment on above: Performed By: #### L 100.0500, L500.2500 ####[facility] [address] [place], [address] WBC (Bld) [#/Vol] 13.9 10*3/uL High 4.4-11.0 [facility] Comment on above: Performed By: #### L 100.0500, L500.2500 ####[facility] [address] [place], [address] CTA Abd/Pelvis W/WO Contrast on 12-16-2023 CTA Abd/Pelvis W/WO Contrast [facility] Imaging Services [address] [place] [address] CTA Abd/Pelvis W/WO Contrast MR#: [id number] Acct: [id number] Name: KELLIE DOZIER Rep #: [id number] : 1945 F 78 From: Sidney Benitez MD PCP: Dr. Santo Love MD Status: ADM IN Study: CTA Abd/Pelvis W/WO Contrast Date of Exam: Exam# [id number] Ordering Dr: Cullen Ferrer DO [id number] EXAM: CT ANGIOGRAPHY ABDOMEN AND PELVIS WITHOUT [...] CC: Dr. Santo Love MD; Cullen Ferrer, Manager Adult: Signed Normal [facility] MR/PN.Ayan 12-16-2023 MR/PN.GI [facility] Medical Records Department [address] [place] [address] Progress Note - GI 12/16/23 1712 MR#: [id number] Acct: [id number] Name: KELLIE DOZIER Rep #: [id number] : 1945 78 From: Cullen Friend DO PCP: Dr. Santo Love MD Status:ADM IN Location: [place] [address] Subjective Subjective Patient underwent emergent endoscopy yesterday. [...] is a 78-year-old female who presented to [facility] ED on 12/11/2023 with hematemesis. Findings: The [...] treated yesterday (more content not included)... Normal [facility] Absolute lymphocyte countOrd ered By: Panchito Zavaleta on 12-15-2023 Lymphocytes Auto (Unsp spec) [#/Vol] 1.77 10*3/uL 0.83-4.51 [facility] Automated lymphocyte count a s percentage of total leukocytesOrdered By: Panchito Zavaleta on 12-15-2023 Lymphocytes/100 WBC Auto (Unsp spec) 12.6 % 19-41 [facility] BRCon 12-15-2023 RC Normal [facility] Comment on above: Result Comment: [id number] AN RC TRANSFUSED 12/17/23 1402 Performed By: #### L 501.080 #### [facility] Laboratory [address] [place], [place], [address] Result Comment: [id number] AN RC TRANSFUSED 12/16/23 1600 RC Normal [facility] Comment on above: Result Comment: [id number] OP RC TRANSFUSED 12/15/23 1100 [id number] OP RC TRANSFUSED 12/15/23 1509 Performed By: #### B RC ####[facility] [address] [place], [place], [address] Basic Metabolic Profile (BMP )on 12-15-2023 BUN/CRE 49.0 RATIO High 10-20 [facility] Comment on above: Performed By: #### L 501.080 #### [facility] [address] [place], [address] CA,Total 8.8 mg/dL Normal 8.5-10.1 [facility] Comment on above: Performed By: #### L 501.080 #### [facility] [address] [place], [address] Chloride [Moles/Vol] 109 mmol/L High 98-107 [facility] Comment on above: Performed By: #### L 501.080 #### [facility] [address] [place], [address] CO2 [Moles/Vol] 23.0 mmol/L Normal 21.0-32.0 [facility] Comment on above: Performed By: #### L 501.080 #### [facility] [address] [place], [address] Creatinine [Mass/Vol] 0.84 mg/dL Normal 0.55-1.02 [facility] Comment on above: Result Comment: The validity of the calculated GFR GFRAA in patients over 70 years has not been determined. Clinical correlation is essential. Performed By: #### L 501.080 #### [facility] [address] [place], [address] ECRCL 51.80 ml/min Normal [facility] Comment on above: Performed By: #### L 501.080 #### [facility] [address] [place], [address] EST GFR - AA 84 mL/min Normal >60 [facility] Comment on above: Result Comment: Afri can [place] GFR Calc Performed By: #### L 501.080 #### [facility] [address] [place], [address] GAP 9 Normal 5-15 [facility] Comment on above: Performed By: #### L 501.080 #### [facility] [address] [place], [address] GFR/1.73 sq M.predicted among non-blacks MDRD (S/P/Bld) [Vol rate/Area] 70 mL/min/{1.73_m2} Normal >60 [facility] Comment on above: Result Comment: Non- GFR Calc Performed By: #### L 501.080 #### [facility] [address] [place], [address] Glucose [Mass/Vol] 410 mg/dL High 74-106 [facility] Comment on above: Result Comment: Gluc ose result greater than or equal to 200 mg/dL suggests DIABETES MELLITUS per A.D.A. criteria. Performed By: #### L 501.080 #### [facility] [address] [place], [address] Potassium [Moles/Vol] 4.5 mmol/L Normal 3.5-5.1 [facility] Comment on above: Performed By: #### L 501.080 #### [facility] [address] [place], [address] Sodium [Moles/Vol] 141 mmol/L Normal 136-145 [facility] Comment on above: Performed By: #### L 501.080 #### [facility] [address] [place], [address] Urea nitrogen [Mass/Vol] 41 mg/dL High 7-18 [facility] Comment on above: Performed By: #### L 501.080 #### [facility] [address] [place], [address] Basophil percentageOrdered B y: Panchito Zavaleta on 12-15-2023 Basophils/100 WBC (Bld) 0.4 % 0-1 [facility] Chloride [Moles/Vol] 109 mmol/L 98-107 [facility] Eosinophils/100 WBC (Bld) 0.0 % 0-5 [facility] Glucose [Mass/Vol] 410 mg/dL 74-106 [facility] Comment on above: Glucose result great er than or equal to 200 mg/dLsuggests DIABETES MELLITUS per A.D.A. criteria. Hemoglobin (Bld) [Mass/Vol] 6.6 g/dL 12.0-15.0 [facility] Monocytes/100 WBC (Bld) 5.6 % 0-10 [facility] Neutrophils (Bld) [#/Vol] 11.2 10*3/uL 2.0-7.7 [facility] Neutrophils/100 WBC (Bld) 80.0 % 47-70 [facility] Potassium [Moles/Vol] 4.5 mmol/L 3.5-5.1 [facility] Sodium [Moles/Vol] 141 mmol/L 136-145 [facility] WBC (Bld) [#/Vol] 14.0 10*3/uL 4.4-11.0 [facility] Bedside Glucoseon 12-15-2023 FINGERSTICK GLU 349 mg/dL High [address] [place] [address] Comment on above: Result Comment: SYDNEY GEMENT OF PATIENT CARE PER NURSING PROTOCOL Performed By: #### L 501.080 ####[facility] [address] [facility] [address] FINGERSTICK GLU 257 mg/dL High [address] [place] [address] Comment on above: Result Comment: SYDNEY GEMENT OF PATIENT CARE PER NURSING PROTOCOL Performed By: #### L 501.080 ####[facility] [address] [facility] [address] FINGERSTICK GLU 276 mg/dL High [address] [place] [address] Comment on above: Result Comment: SYDNEY GEMENT OF PATIENT CARE PER NURSING PROTOCOL Performed By: #### L 501.080 #### [facility] [address] [facility] [address] FINGERSTICK GLU 320 mg/dL High [address] [place] [address] Comment on above: Result Comment: SYDNEY GEMENT OF PATIENT CARE PER NURSING PROTOCOL Performed By: #### L 100.0100, L500.4050 #### [facility] [address] [place], [address] FINGERSTICK GLU 352 mg/dL High 74-106 [facility] Comment on above: Result Comment: SYDNEY ANDERSON OF PATIENT CARE PER NURSING PROTOCOL Performed By: #### L 501.080 #### [facility] [address] [place], [address] CBC W/Diff, Automatedon 02- Absolute Lymph 1.77 X10 3/uL Normal 0.83-4.51 [facility] Comment on above: Performed By: #### L 501.080 #### [facility] [address] [place], [address] Absolute Neut 11.2 X10 3/uL High 2.0-7.7 [facility] Comment on above: Performed By: #### L 501.080 #### [facility] [address] [place], [address] Basophils/100 WBC (Bld) 0.4 % Normal 0-1 [facility] Comment on above: Performed By: #### L 501.080 #### [facility] [address] [place], [address] Eosinophils/100 WBC (Bld) 0.0 % Normal 0-5 [facility] Comment on above: Performed By: #### L 501.080 #### [facility] [address] [place], [address] Erythrocyte distribution width (RBC) [Ratio] 13.9 % Normal 11.6-14.6 [facility] Comment on above: Performed By: #### L 501.080 #### [facility] [address] [place], [address] Hematocrit (Bld) [Volume fraction] 20.5 % Low 37-47 [facility] Comment on above: Performed By: #### L 501.080 #### [facility] [address] [place], [address] Hemoglobin (Bld) [Mass/Vol] 6.6 g/dL Low 12.0-15.0 [facility] Comment on above: Performed By: #### L 501.080 #### [facility] [address] [place], [address] IG% 1.400 High 0.0-0.9 [facility] Comment on above: Result Comment: IG% - Immature Granulocytes (promyelocytes, myelocytes and metamyelocytes) > 1% indicates that a LEFT SHIFT is Present. Performed By: #### L 501.080 #### [facility] [address] [place], [address] Lymphocytes/100 WBC (Bld) 12.6 % Low 19-41 [facility] Comment on above: Performed By: #### L 501.080 #### [facility] [address] [place], [address] MCH (RBC) [Entitic mass] 30.1 pg Normal 27.0-32.0 [facility] Comment on above: Performed By: #### L 501.080 #### [facility] [address] [place], [address] MCHC (RBC) [Mass/Vol] 32.2 g/dL Normal 32-36 [facility] Comment on above: Performed By: #### L 501.080 #### [facility] [address] [place], [address] MCV (RBC) [Entitic vol] 93.6 fL Normal 81-99 [facility] Comment on above: Performed By: #### L 501.080 #### [facility] [address] [place], [address] Monocytes/100 WBC (Bld) 5.6 % Normal 0-10 [facility] Comment on above: Performed By: #### L 501.080 #### [facility] [address] [place], [address] Neutrophils/100 WBC (Bld) 80.0 % High 47-70 [facility] Comment on above: Performed By: #### L 501.080 #### [facility] [address] [place], [address] Nucleated RBC (Bld) [#/Vol] 0 10*3/uL Normal 0-5 [facility] Comment on above: Performed By: #### L 501.080 #### [facility] [address] [place], [address] Platelet mean volume (Bld) [Entitic vol] 10.7 fL Normal 6.2-12.0 [facility] Comment on above: Performed By: #### L 501.080 #### [facility] [address] [place], [address] Platelets (Bld) [#/Vol] 239 10*3/uL Normal 150-450 [facility] Comment on above: Performed By: #### L 501.080 #### [facility] [address] [place], [address] RBC (Bld) [#/Vol] 2.19 10*6/uL Low 4.2-5.4 [facility] Comment on above: Performed By: #### L 501.080 #### [facility] [address] [place], [address] RDW SD 46.3 fl High 35.1-43.9 [facility] Comment on above: Performed By: #### L 501.080 #### [facility] [address] [place], [address] WBC (Bld) [#/Vol] 14.0 10*3/uL High 4.4-11.0 [facility] Comment on above: Performed By: #### L 501.080 #### [facility] [address] [place], [address] CBC-Complete Blood Cnt No Di ffon 12-15-2023 Erythrocyte distribution width (RBC) [Ratio] 15.7 % High 11.6-14.6 [facility] Comment on above: Order Comment: PATIE NT GETTING BLOOD. FLOOR TO CALL WHEN DONE Performed By: #### L 501.080 #### [facility] [address] [place], [address] Hematocrit (Bld) [Volume fraction] 24.2 % Low 37-47 [facility] Comment on above: Order Comment: PATIE NT GETTING BLOOD. FLOOR TO CALL WHEN DONE Performed By: #### L 501.080 #### [facility] [address] [place], [address] Hemoglobin (Bld) [Mass/Vol] 7.9 g/dL Low 12.0-15.0 [facility] Comment on above: Order Comment: PATIE NT GETTING BLOOD. FLOOR TO CALL WHEN DONE Performed By: #### L 501.080 #### [facility] [address] [place], [address] MCH (RBC) [Entitic mass] 30.0 pg Normal 27.0-32.0 [facility] Comment on above: Order Comment: PATIE NT GETTING BLOOD. FLOOR TO CALL WHEN DONE Performed By: #### L 501.080 #### [facility] [address] [place], [address] MCHC (RBC) [Mass/Vol] 32.6 g/dL Normal 32-36 [facility] Comment on above: Order Comment: PATIE NT GETTING BLOOD. FLOOR TO CALL WHEN DONE Performed By: #### L 501.080 #### [facility] [address] [place], [address] MCV (RBC) [Entitic vol] 92.0 fL Normal 81-99 [facility] Comment on above: Order Comment: PATIE NT GETTING BLOOD. FLOOR TO CALL WHEN DONE Performed By: #### L 501.080 #### [facility] [address] [place], [address] Platelet mean volume (Bld) [Entitic vol] 10.5 fL Normal 6.2-12.0 [facility] Comment on above: Order Comment: PATIE NT GETTING BLOOD. FLOOR TO CALL WHEN DONE Performed By: #### L 501.080 #### [facility] [address] [place], [address] Platelets (Bld) [#/Vol] 160 10*3/uL Normal 150-450 [facility] Comment on above: Order Comment: PATIE NT GETTING BLOOD. FLOOR TO CALL WHEN DONE Performed By: #### L 501.080 #### [facility] [address] [place], [address] RBC (Bld) [#/Vol] 2.63 10*6/uL Low 4.2-5.4 [facility] Comment on above: Order Comment: PATIE NT GETTING BLOOD. FLOOR TO CALL WHEN DONE Performed By: #### L 501.080 #### [facility] [address] [place], [address] RDW SD 51.6 fl High 35.1-43.9 [facility] Comment on above: Order Comment: PATIE NT GETTING BLOOD. FLOOR TO CALL WHEN DONE Performed By: #### L 501.080 #### [facility] [address] [place], [address] WBC (Bld) [#/Vol] 14.1 10*3/uL High 4.4-11.0 [facility] Comment on above: Order Comment: PATIE NT GETTING BLOOD. FLOOR TO CALL WHEN DONE Performed By: #### L 501.080 #### [facility] [address] [facility] [place], [address] Determination of erythrocyte mean corpuscular volume (MCV)Ordered By: Panchito Zavaleta on 12-15-2023 MCV (RBC) [Entitic vol] 93.6 fL 81-99 [facility] EGD Reporton 12-15-2023 EGD Report [facility] Medical Records Department [address] [place] [address] EGD Report MR#: [id number] Acct: [id number] Name: KELLIE DOZIER Rep #: [id number] : 1945 78 From: Cullen Ferrer DO [...] present medications. Procedure Code(s): --- Professional --- 21510, Esophagogastroduodenoscopy, flexible, transoral; with control of bleeding, any method 03867, 59,51, Esophagogastroduodenoscopy, flexible, transoral; with directed submucosal injection(s), any substance CPT copyright 2021 [employer]. All rights reserved. The codes documented in this report are preliminary and upon emergency crew supervisor review may be revised to meet current compliance requirements. Cullen Ferrer DO 12/15/2023 4:32:31 PM This report has been signed electronically. Number of Addenda: 0 Note Initiated On: 12/12/2023 1:16 PM 12/15/23 1632 Date Cullen Perry Signature: Date (if indicated) CC: Dr. Santo Love MD; Cullen Ferrer DO Date Dictated: 12/12/23 1316 Date Transcribed: Manager Adult: RF Signed Normal [facility] EGD Report [facility] Medical Records Department [address] [facility] [place] [address] EGD Report MR#: [id number] Acct: [id number] Name: KELLIE DOZIER [place] Rep #: [id number] : 1945 78 From: Cullen Ferrer DO [...] one hemostatic clip was successfully placed. Clip hop sorter: [employer]. There was no bleeding at the end of the procedure. No gross lesions were noted in the second portion of the duodenum. Impression: - Normal esophagus. - Oozing gastric ulcer with a visible vessel. Injected. Treated with a heater probe. Clip was placed. Clip hop sorter: [employer]. - No gross lesions in the second portion of the duodenum. - No specimens collected. Recommendation: - Return patient to hospital chan for ongoing care. - Clear liquid diet. - Continue present medications. Procedure Code(s): --- Professional --- 16641, Esophagogastroduodenoscopy, flexible, transoral; with control of bleeding, any method 03856, 59,51, Esophagogastroduodenoscopy, flexible, transoral; with directed submucosal injection(s), any substance CPT copyright 2021 [employer]. All rights reserved. The codes documented in this report are preliminary and upon emergency crew supervisor review may be revised to meet current compliance requirements. Cullen Ferrer DO 12/15/2023 4:28:41 PM This report has been signed electronically. Number of Addenda: 0 Note Initiated On: 12/15/2023 3:43 PM 12/15/23 1629 Date Cullen Friend DO Cosigner Signature: Date (if indicated) CC: Dr. Santo Loev MD; Cullen Friend, Date Dictated: 12/15/23 1543 Date Transcribed: Manager Adult: MIGUELINA Signed Normal [facility] Emergency Department Summary on 12-15-2023 Emergency Department Summary [facility] Medical Records Department [address] [place] [address] Emergency Department Summary 12/15/23 MR#: [id number] Acct: [id number] Name: KELLIE DOZIER MARIETTA Rep #: [id number] : 1945 78 From: Panchito Zavaleta MD PCP: Dr. Santo Love MD Status:[facility] Location: ED HPI HPI - GI [...] sublingual Zofran but she vomited it up. [facility] Medical History Atherosclerotic heart disease of [place] coronary artery without angina pectoris Essential hypertension [...] or we (more content not included)... Normal [facility] Erythrocyte distribution wid th ratioOrdered By: Panchito Zavaleta on 12-15-2023 Erythrocyte distribution width (RBC) [Ratio] 13.9 % 11.6-14.6 [facility] Erythrocyte distribution wid th standard deviationOrdered By: Pacnhito Zavaleta on 12-15-2023 Erythrocyte distribution width (RBC) [Entitic vol] 46.3 fL 35.1-43.9 [facility] H AND P Exam - Hospitaliston 12-15-2023 H&P Exam - Hospitalist [facility] Medical Records Department [address] [place] [address] H P Exam - Hospitalist 12/15/23 1136 MR#: [id number] Acct: [id number] Name: KELLIE DOZIER Rep #: [id number] : 1945 78 From: Tahir Rivas DO PCP: Dr. Santo Love MD Status:ADM IN Location: [facility] [id number] HPI - General General Date of Admission: 12/15/23 Date of Service: 12/15/23 Chief Complaint: Recurrent upper GI bleed HPI Narrative KELLIE DOZIER, is a 78 F who presented to [facility] ED on morning of 12/15/2023 with recurrent upper GI bleed. Patient was recently hospitalized at [facility] from 12/11 to 12/13 for an upper [...] No other acute concerns at this time. [facility] Medical History Atherosclerotic heart disease of [place] coronary artery without angina pectoris Essential hypertension [...] use caff (more content not included)... Normal [facility] Hematocrit Auto (Bld) [Volum e fraction]Ordered By: Panchito Zavaleta on 12-15-2023 Hematocrit (Bld) [Volume fraction] 20.5 % 37-47 [facility] Immature granulocytes/100 WB C Auto (Bld)Ordered By: Panchito Zavaleta on 12-15-2023 Immature granulocytes/100 WBC (Bld) 1.400 % 0.0-0.9 [facility] Comment on above: IG% - Immature Granu locytes (promyelocytes, myelocytes and metamyelocytes) > 1% indicates that a LEFT SHIFT is Present. Laboratory - Chemistry and C hemistry - challengeOrdered By: Panchito Zavaleta on 12-15-2023 CO2 [Moles/Vol] 23.0 mmol/L 21.0-32.0 [facility] Urea nitrogen/Creatinine [Mass ratio] 49.0 mg/mg 10-20 [facility] Laboratory - Hematology and Cell countsOrdered By: Panchito Zavaleta on 12-15-2023 MCH (RBC) [Entitic mass] 30.1 pg 27.0-32.0 [facility] MCHC (RBC) [Mass/Vol] 32.2 g/dL 32-36 [facility] Nucleated RBC/100 WBC (Bld) [Ratio] 0 % 0-5 [facility] Platelet mean volume (Bld) [Entitic vol] 10.7 fL 6.2-12.0 [facility] Platelets (Bld) [#/Vol] 239 10*3/uL 150-450 [facility] No Panel InformationOrdered By: Panchito Zavaleta on 12-15-2023 Estimated Creatinine Clearance Calc 51.80 ml/min [facility] Estimated GFR (MDRD) Amer 84 mL/min >60 [facility] Comment on above: GFR Calc Estimated GFR (MDRD) Non-Af Amer 70 mL/min >60 [facility] Comment on above: Non- GFR Calc RBC Auto (Bld) [#/Vol]Ordere d By: Panchito Zavaleta on 12-15-2023 RBC (Bld) [#/Vol] 2.19 10*6/uL 4.2-5.4 [facility] Serum or plasma calcium haris urement (mass/volume)Ordered By: Panchito Zavaleta on 12-15-2023 Calcium [Mass/Vol] 8.8 mg/dL 8.5-10.1 [facility] Serum or plasma creatinine m easurement (mass/volume)Ordered By: Panchito Zavaleta on 12-15-2023 Creatinine [Mass/Vol] 0.84 mg/dL 0.55-1.02 [facility] Comment on above: The validity of the calculated GFR & GFRAA in patients over 70 years has not been determined. Clinical correlation is essential. Serum or plasma urea nitroge n measurement (mass/volume)Ordered By: Panchito Zavaleta on 12-15-2023 Urea nitrogen [Mass/Vol] 41 mg/dL 7-18 [facility] Thin prep Papanicolaou smear with manual screeningOrdered By: Panchito Zavaleta on 12-15-2023 Thin prep Papanicolaou smear with manual screening 352 mg/dL 74-106 [facility] Comment on above: MANAGEMENT OF PATIEN T CARE PER NURSING PROTOCOL Thin prep Papanicolaou smear with manual screening 9 5-15 [facility] Type AND Screenon 12-15-2023 ABO and Rh group Nom (Bld) Blood group A Rh(D) positive Normal [facility] Comment on above: Order Comment: HGI Performed By: #### L 501.080 #### [facility] Laboratory [address] [place], [address] CBC-Complete Blood Cnt No Di ffon 12-14-2023 HCT Normal 37-47 [facility] Comment on above: Result Comment: Canc elled via OM: Order cancelled - Patient discharged Performed By: #### L 501.080 #### [facility] Laboratory [address] [place], [address] HGB Normal 12.0-15.0 [facility] Comment on above: Result Comment: Canc elled via OM: Order cancelled - Patient discharged Performed By: #### L 501.080 #### [facility] [address] [place], [address] MCH Normal 27.0-32.0 [facility] Comment on above: Result Comment: Canc elled via OM: Order cancelled - Patient discharged Performed By: #### L 501.080 #### [facility] [address] [place], [address] MCHC Normal 32-36 [facility] Comment on above: Result Comment: Canc elled via OM: Order cancelled - Patient discharged Performed By: #### L 501.080 #### [facility] [address] [place], [address] MCV Normal 81-99 [facility] Comment on above: Result Comment: Canc elled via OM: Order cancelled - Patient discharged Performed By: #### L 501.080 #### [facility] [address] [place], [address] PLT Normal 150-450 [facility] Comment on above: Result Comment: Canc elled via OM: Order cancelled - Patient discharged Performed By: #### L 501.080 #### [facility] Laboratory [address] [place], [address] RBC Normal 4.2-5.4 [facility] Comment on above: Result Comment: Canc elled via OM: Order cancelled - Patient discharged Performed By: #### L 501.080 #### [facility] Laboratory [address] [place], [address] RDW CV Normal 11.6-14.6 [facility] Comment on above: Result Comment: Canc elled via OM: Order cancelled - Patient discharged Performed By: #### L 501.080 #### [facility] Laboratory [address] [place], [address] RDW SD Normal 35.1-43.9 [facility] Comment on above: Result Comment: Canc elled via OM: Order cancelled - Patient discharged Performed By: #### L 501.080 #### [facility] [address] [place], [address] WBC Normal 4.4-11.0 [facility] Comment on above: Result Comment: Canc elled via OM: Order cancelled - Patient discharged Performed By: #### L 501.080 #### [facility] Laboratory [address] [place], [address] Vitamin B12on 12-14-2023 Cobalamin (Vitamin B12) [Mass/Vol] 1452 pg/mL High 211-911 [facility] Comment on above: Performed By: #### L 100.0100, L500.4050 #### [facility] Laboratory [address] [place], [address] Basophil percentageOrdered B y: Tahir Rivas on 12-13-2023 Hemoglobin (Bld) [Mass/Vol] 9.3 g/dL 12.0-15.0 [facility] WBC (Bld) [#/Vol] 8.4 10*3/uL 4.4-11.0 [facility] Bedside Glucoseon 12-13-2023 FINGERSTICK GLU 191 mg/dL High 74-106 [facility] Comment on above: Result Comment: SYDNEY GEMENT OF PATIENT CARE PER NURSING PROTOCOL Performed By: #### L 501.080 #### [facility] [address] [place], [address] FINGERSTICK GLU 247 mg/dL High 74-106 [facility] Comment on above: Result Comment: SYDNEY GEMENT OF PATIENT CARE PER NURSING PROTOCOL Performed By: #### L 501.080 #### [facility] Laboratory [address] [place], [address] FINGERSTICK GLU 158 mg/dL High 74-106 [facility] Comment on above: Result Comment: SYDNEY GEMENT OF PATIENT CARE PER NURSING PROTOCOL Performed By: #### L 501.080 #### [facility] Laboratory [address] [place], [address] CBC-Complete Blood Cnt No Di ffon 12-13-2023 Erythrocyte distribution width (RBC) [Ratio] 13.3 % Normal 11.6-14.6 [facility] Comment on above: Performed By: #### L 100.0500 ####[facility] [address] [place], [address] Hematocrit (Bld) [Volume fraction] 28.7 % Low 37-47 [facility] Comment on above: Performed By: #### L 100.0500 ####[facility] [address] [place], [address] Hemoglobin (Bld) [Mass/Vol] 9.3 g/dL Low 12.0-15.0 [facility] Comment on above: Performed By: #### L 100.0500 ####[facility] [address] [place], [address] MCH (RBC) [Entitic mass] 30.8 pg Normal 27.0-32.0 [facility] Comment on above: Performed By: #### L 100.0500 ####[facility] [address] [place], [address] MCHC (RBC) [Mass/Vol] 32.4 g/dL Normal 32-36 [facility] Comment on above: Performed By: #### L 100.0500 ####[facility] [address] [place], [address] MCV (RBC) [Entitic vol] 95.0 fL Normal 81-99 [facility] Comment on above: Performed By: #### L 100.0500 ####[facility] [address] [place], [address] Platelet mean volume (Bld) [Entitic vol] 10.4 fL Normal 6.2-12.0 [facility] Comment on above: Performed By: #### L 100.0500 ####[facility] [address] [place], [address] Platelets (Bld) [#/Vol] 189 10*3/uL Normal 150-450 [facility] Comment on above: Performed By: #### L 100.0500 ####[facility] [address] [place], [address] RBC (Bld) [#/Vol] 3.02 10*6/uL Low 4.2-5.4 [facility] Comment on above: Performed By: #### L 100.0500 ####[facility] [address] [place], [address] RDW SD 45.8 fl High 35.1-43.9 [facility] Comment on above: Performed By: #### L 100.0500 ####[facility] [address] [place], [address] WBC (Bld) [#/Vol] 8.4 10*3/uL Normal 4.4-11.0 [facility] Comment on above: Performed By: #### L 100.0500 ####[facility] [address] [place], [address] Determination of erythrocyte mean corpuscular volume (MCV)Ordered By: Tahir Rivas on 12-13-2023 MCV (RBC) [Entitic vol] 95.0 fL 81-99 [facility] Discharge Instructionon 12-03 Discharge Instruction [facility] Medical Records Department [address] [place] [address] Instructions for Home/Discharge Instructions 12/13/23 1525 MR#: [id number] Acct: [id number] Name: KELLIE DOZIER Rep #: [id number] : 1945 78 From: Tahir Rivas DO [...] CC: Dr. Santo Love MD Signed Normal [facility] Erythrocyte distribution wid th ratioOrdered By: Tahir Rivas on 12-13-2023 Erythrocyte distribution width (RBC) [Ratio] 13.3 % 11.6-14.6 [facility] Erythrocyte distribution wid th standard deviationOrdered By: Tahir Rivas on 12-13-2023 Erythrocyte distribution width (RBC) [Entitic vol] 45.8 fL 35.1-43.9 [facility] Hematocrit Auto (Bld) [Volum e fraction]Ordered By: Tahir Rivas on 12-13-2023 Hematocrit (Bld) [Volume fraction] 28.7 % 37-47 [facility] Laboratory - Hematology and Cell countsOrdered By: Tahir Rivas on 12-13-2023 MCH (RBC) [Entitic mass] 30.8 pg 27.0-32.0 [facility] MCHC (RBC) [Mass/Vol] 32.4 g/dL 32-36 [facility] Platelet mean volume (Bld) [Entitic vol] 10.4 fL 6.2-12.0 [facility] Platelets (Bld) [#/Vol] 189 10*3/uL 150-450 [facility] RBC Auto (Bld) [#/Vol]Ordere d By: Tahir Rivas on 12-13-2023 RBC (Bld) [#/Vol] 3.02 10*6/uL 4.2-5.4 [facility] Thin prep Papanicolaou smear with manual screeningOrdered By: Tahir Rivas on 12-13-2023 Thin prep Papanicolaou smear with manual screening 191 mg/dL 74-106 [facility] Comment on above: MANAGEMENT OF PATIEN T CARE PER NURSING PROTOCOL 12 Lead EKGon 12-12-2023 12 Lead EKG [facility] Cardiovascular Services [address] [place] [address] 12 Lead EKG 12/12/23 0555 MR#: [id number] Acct: [id number] Name: KELLIE DOZIER Rep #: [id number] : 1945 78 From: Jacques Fortune MD Attending Dr: Dr. Tahir Rivas DO Status : DIS IN Ordering Dr: Rod Clifton DO Date: 12/12/23 Location: [facility] Sex: F C Admitted: 12/11/23 Test Reason [...] DATA IS UNCONFIRMED Confirmed by Jacques Fortune ([id number]), newspaper editor LISA LOZANO ([id number]) on 12/15/2023 9:39:29 AM Referred By: Confirmed By:Jacques Fortune 12/15/23 0939 Date Jacques Fortune MD CC: Dr. Tahir Rivas DO; Dr. Rod Clifton DO; Dr. Santo Love MD Signed Normal [facility] Basic Metabolic Profile (BMP )on 12-12-2023 BUN/CRE 47.0 RATIO High 10-20 [facility] Comment on above: Performed By: #### L 100.0500, L500.2500 ####[facility] [address] [place], [address] CA,Total 8.6 mg/dL Normal 8.5-10.1 [facility] Comment on above: Performed By: #### L 100.0500, L500.2500 ####[facility] [address] [place], [address] Chloride [Moles/Vol] 108 mmol/L High 98-107 [facility] Comment on above: Performed By: #### L 100.0500, L500.2500 ####[facility] [address] [place], [address] CO2 [Moles/Vol] 29.0 mmol/L Normal 21.0-32.0 [facility] Comment on above: Performed By: #### L 100.0500, L500.2500 ####[facility] [address] [place], [address] Creatinine [Mass/Vol] 0.74 mg/dL Normal 0.55-1.02 [facility] Comment on above: Result Comment: The validity of the calculated GFR GFRAA in patients over 70 years has not been determined. Clinical correlation is essential. Performed By: #### L 100.0500, L500.2500 ####[facility] [address] [place], [address] ECRCL 49.24 ml/min Normal [facility] Comment on above: Performed By: #### L 100.0500, L500.2500 ####[facility] [address] [place], [address] EST GFR - AA 96 mL/min Normal >60 [facility] Comment on above: Result Comment: Afri can Guinean GFR Calc Performed By: #### L 100.0500, L500.2500 ####[facility] [address] [place], [address] GAP 3 Low 5-15 [facility] Comment on above: Performed By: #### L 100.0500, L500.2500 ####[facility] [address] [place], [address] GFR/1.73 sq M.predicted among non-blacks MDRD (S/P/Bld) [Vol rate/Area] 80 mL/min/{1.73_m2} Normal >60 [facility] Comment on above: Result Comment: Non- GFR Calc Performed By: #### L 100.0500, L500.2500 ####[facility] [address] [place], [address] Glucose [Mass/Vol] 190 mg/dL High 74-106 [facility] Comment on above: Result Comment: Fast ing Glucose result greater than or equal to 126 mg/dL suggests DIABETES MELLITUS per A.D.A. criteria. Performed By: #### L 100.0500, L500.2500 ####[facility] [address], [address] Potassium [Moles/Vol] 3.6 mmol/L Normal 3.5-5.1 [facility] Comment on above: Performed By: #### L 100.0500, L500.2500 ####[facility] [address] [place], [address] Sodium [Moles/Vol] 140 mmol/L Normal 136-145 [facility] Comment on above: Performed By: #### L 100.0500, L500.2500 ####[facility] [address] [place], [address] Urea nitrogen [Mass/Vol] 35 mg/dL High 7-18 [facility] Comment on above: Performed By: #### L 100.0500, L500.2500 ####[facility] [address] [place], [address] Basophil percentageOrdered B y: Tahir Rob on 12-12-2023 Chloride [Moles/Vol] 108 mmol/L 98-107 [facility] Glucose [Mass/Vol] 190 mg/dL 74-106 [facility] Comment on above: Fasting Glucose resu lt greater than or equal to 126 mg/dL suggests DIABETES MELLITUS per A.D.A. criteria. Potassium [Moles/Vol] 3.6 mmol/L 3.5-5.1 [facility] Sodium [Moles/Vol] 140 mmol/L 136-145 [facility] Bedside Glucoseon 12-12-2023 FINGERSTICK GLU 162 mg/dL High 74-106 [facility] Comment on above: Result Comment: YSDNEY GEMENT OF PATIENT CARE PER NURSING PROTOCOL Performed By: #### L 501.080 #### [facility] Laboratory [address] [place], [address] FINGERSTICK GLU 196 mg/dL High [facility]106 [facility] Comment on above: Result Comment: SYDNEY GEMENT OF PATIENT CARE PER NURSING PROTOCOL Performed By: #### L 501.080 #### [facility] [address] [place], [address] FINGERSTICK GLU 161 mg/dL High -106 [facility] Comment on above: Result Comment: SYDNEY GEMENT OF PATIENT CARE PER NURSING PROTOCOL Performed By: #### L 501.080 #### [facility] [address] [place], [address] FINGERSTICK GLU 163 mg/dL High [facility]106 [facility] Comment on above: Result Comment: SYDNEY GEMENT OF PATIENT CARE PER NURSING PROTOCOL Performed By: #### L 501.080 ####[facility] [address] [place], [address] CBC-Complete Blood Cnt No Di ffon 12-12-2023 Erythrocyte distribution width (RBC) [Ratio] 13.8 % Normal 11.6-14.6 [facility] Comment on above: Performed By: #### L 100.0500, L500.2500 ####[facility] [address] [place], [address] Hematocrit (Bld) [Volume fraction] 26.3 % Low 37-47 [facility] Comment on above: Performed By: #### L 100.0500, L500.2500 ####[facility] [address] [place], [address] Hemoglobin (Bld) [Mass/Vol] 8.6 g/dL Low 12.0-15.0 [facility] Comment on above: Performed By: #### L 100.0500, L500.2500 ####[facility] [address] [place], [address] MCH (RBC) [Entitic mass] 30.7 pg Normal 27.0-32.0 [facility] Comment on above: Performed By: #### L 100.0500, L500.2500 ####[facility] [address] [place], [address] MCHC (RBC) [Mass/Vol] 32.7 g/dL Normal 32-36 [facility] Comment on above: Performed By: #### L 100.0500, L500.2500 ####[facility] [address] [place], [address] MCV (RBC) [Entitic vol] 93.9 fL Normal 81-99 [facility] Comment on above: Performed By: #### L 100.0500, L500.2500 ####[facility] [address] [place], [address] Platelet mean volume (Bld) [Entitic vol] 10.1 fL Normal 6.2-12.0 [facility] Comment on above: Performed By: #### L 100.0500, L500.2500 ####[facility] [address] [place], [address] Platelets (Bld) [#/Vol] 181 10*3/uL Normal 150-450 [facility] Comment on above: Performed By: #### L 100.0500, L500.2500 ####[facility] [address] [place], [address] RBC (Bld) [#/Vol] 2.80 10*6/uL Low 4.2-5.4 [facility] Comment on above: Performed By: #### L 100.0500, L500.2500 ####[facility] [address] [place], [address] RDW SD 47.7 fl High 35.1-43.9 [facility] Comment on above: Performed By: #### L 100.0500, L500.2500 ####[facility] [address] [place], [address] WBC (Bld) [#/Vol] 7.8 10*3/uL Normal 4.4-11.0 [facility] Comment on above: Performed By: #### L 100.0500, L500.2500 ####[facility] [address] [place], [address] Ferritinon 12-12-2023 Ferritin [Mass/Vol] 187 ng/mL Normal 8-252 [facility] Comment on above: Order Comment: Has Evelin solorzano had X-rays with Contrast this admission? NN Performed By: #### L 100.0100, L500.4050 #### [facility] [address] [place], [address] Folates, (Folic Acid)on 12-03 FOLATES 16.00 ng/mL Normal 3.1-55.4 [facility] Comment on above: Order Comment: Has Evelin solorzano had X-rays with Contrast this admission? NN Performed By: #### L 100.0100, L500.4050 #### [facility] [address] [place], [address] Iron measurement (mass/mass) Ordered By: Tahir Rivas on 12-12-2023 Iron (Unsp spec) [Mass/Mass] 85 ug/dL 50-170 [facility] Iron+Iron Binding Capacityon 12-12-2023 Iron [Mass/Vol] 85 ug/dL Normal 50-170 [facility] Comment on above: Order Comment: Has Evelin solorzano had X-rays with Contrast this admission? NN Performed By: #### L 100.0100, L500.4050 #### [facility] [address] [place], [address] IRON SATURATION 35.9 Normal 15.0-55.0 [facility] Comment on above: Order Comment: Has Evelin solorzano had X-rays with Contrast this admission? NN Performed By: #### L 100.0100, L500.4050 #### [facility] [address] [place], [address] TIBC 237 ug/dL Low 250-450 [facility] Comment on above: Order Comment: Has Evelin solorzano had X-rays with Contrast this admission? NN Performed By: #### L 100.0100, L500.4050 #### [facility] [address] [place], [address] Laboratory - Chemistry and C hemistry - challengeOrdered By: Tahir Rivas on 12-12-2023 CO2 [Moles/Vol] 29.0 mmol/L 21.0-32.0 [facility] Cobalamin (Vitamin B12) [Mass/Vol] 1452 pg/mL 211-911 [facility] Ferritin [Mass/Vol] 187 ng/mL 8-252 [facility] Urea nitrogen/Creatinine [Mass ratio] 47.0 mg/mg 10-20 [facility] No Panel InformationOrdered By: Tahir Rivas on 12-12-2023 Estimated Creatinine Clearance Calc 49.24 ml/min [facility] Estimated GFR (MDRD) Amer 96 mL/min >60 [facility] Comment on above: GFR Calc Estimated GFR (MDRD) Non-Af Amer 80 mL/min >60 [facility] Comment on above: Non- GFR Calc Folate 16.00 ng/mL 3.1-55.4 [facility] Total Iron Binding Capacity 237 ug/dL 250-450 [facility] Serum or plasma calcium haris urement (mass/volume)Ordered By: Tahir Rivas on 12-12-2023 Calcium [Mass/Vol] 8.6 mg/dL 8.5-10.1 [facility] Serum or plasma creatinine m easurement (mass/volume)Ordered By: Tahir Rob on 12-12-2023 Creatinine [Mass/Vol] 0.74 mg/dL 0.55-1.02 [facility] Comment on above: The validity of the calculated GFR & GFRAA in patients over 70 years has not been determined. Clinical correlation is essential. Serum or plasma iron saturat ion measurement (mass fraction)Ordered By: Tahir Rivas on 12-12-2023 Iron saturation [Mass fraction] 35.9 % 15.0-55.0 [facility] Serum or plasma urea nitroge n measurement (mass/volume)Ordered By: Tahir Rob on 12-12-2023 Urea nitrogen [Mass/Vol] 35 mg/dL 7-18 [facility] Thin prep Papanicolaou smear with manual screeningOrdered By: Tahir Rivas on 12-12-2023 Thin prep Papanicolaou smear with manual screening 3 5-15 [facility] Abdomen/Pelvis W IV Cont ONL Yon 12-11-2023 Abdomen/Pelvis W IV Cont ONLY [facility] Imaging Services [address] [place] [address] Abdomen/Pelvis W IV Cont ONLY MR#: [id number] Acct: [id number] Name: KELLIE DOZIER Rep #: [id number] : 1945 F 78 From: Bryan Duams PCP: Dr. Santo Love MD Status: [facility] ER Study: Abdomen/Pelvis W IV Cont ONLY Date of Exam: Exam# [id number] Ordering Dr: Panchito Zavaleta MD [id number] STUDY: CT ABDOMEN AND PELVIS WITH CONTRAST [...] Panchito Zavaleta MD; Dr. Santo Love MD Manager Adult: Signed Normal [facility] Absolute lymphocyte countOrd ered By: Panchito Zavaleta on 12-11-2023 Lymphocytes Auto (Unsp spec) [#/Vol] 0.95 10*3/uL 0.83-4.51 [facility] Automated lymphocyte count a s percentage of total leukocytesOrdered By: Panchito Zavaleta on 12-11-2023 Lymphocytes/100 WBC Auto (Unsp spec) 7.0 % 19-41 [facility] Basophil percentageOrdered B y: Panchito Zavaleta on 12-11-2023 Basophil percentage 0-5 SEEN /hpf 0-5 [facility] Basophils/100 WBC (Bld) 0.3 % 0-1 [facility] Bilirubin [Mass/Vol] 0.40 mg/dL 0.20-1.00 [facility] Comment on above: For patients on eltr ombopag therapy, use of Dimension Hollister TBIL is not recommended. Chloride [Moles/Vol] 103 mmol/L 98-107 [facility] Eosinophils/100 WBC (Bld) 0.1 % 0-5 [facility] Glucose [Mass/Vol] 317 mg/dL 74-106 [facility] Comment on above: Glucose result great er than or equal to 200 mg/dLsuggests DIABETES MELLITUS per A.D.A. criteria. Hemoglobin (Bld) [Mass/Vol] 10.8 g/dL 12.0-15.0 [facility] Monocytes/100 WBC (Bld) 6.2 % 0-10 [facility] Neutrophils (Bld) [#/Vol] 11.7 10*3/uL 2.0-7.7 [facility] Neutrophils/100 WBC (Bld) 86.0 % 47-70 [facility] Potassium [Moles/Vol] 4.2 mmol/L 3.5-5.1 [facility] Protein [Mass/Vol] 6.5 g/dL 6.4-8.2 [facility] Sodium [Moles/Vol] 140 mmol/L 136-145 [facility] WBC (Bld) [#/Vol] 13.6 10*3/uL 4.4-11.0 [facility] Bedside Glucoseon 12-11-2023 FINGERSTICK GLU 185 mg/dL High 74-106 [facility] Comment on above: Result Comment: SYDNEY ANDERSON OF PATIENT CARE PER NURSING PROTOCOL Performed By: #### L 501.080 #### [facility] [address] [place], [address] FINGERSTICK GLU 205 mg/dL High 74-106 [facility] Comment on above: Result Comment: SYDNEY ANDERSON OF PATIENT CARE PER NURSING PROTOCOL Performed By: #### L 501.080 ####[facility] [address] [place], [address] Bilirubin Test strip Ql (U)O rdered By: Panchito Zavaleta on 12-11-2023 Bilirubin Ql (U) 1 mg/dL Negative [facility] Comment on above: COLOR OF URINE MAY A FFECT DIPSTICK RESULTS. CBC W/Diff, Automatedon Absolute Lymph 0.95 X10 3/uL Normal 0.83-4.51 [facility] Comment on above: Performed By: #### L 100.0100, L500.4050 #### [facility] [address] [place], [address] Absolute Neut 11.7 X10 3/uL High 2.0-7.7 [facility] Comment on above: Performed By: #### L 100.0100, L500.4050 #### [facility] [address] [place], [address] Basophils/100 WBC (Bld) 0.3 % Normal 0-1 [facility] Comment on above: Performed By: #### L 100.0100, L500.4050 #### [facility] [address] [place], [address] Eosinophils/100 WBC (Bld) 0.1 % Normal 0-5 [facility] Comment on above: Performed By: #### L 100.0100, L500.4050 #### [facility] [address] [place], [address] Erythrocyte distribution width (RBC) [Ratio] 13.6 % Normal 11.6-14.6 [facility] Comment on above: Performed By: #### L 100.0100, L500.4050 #### [facility] [address] [place], [address] Hematocrit (Bld) [Volume fraction] 33.1 % Low 37-47 [facility] Comment on above: Performed By: #### L 100.0100, L500.4050 #### [facility] [address] [place], [address] Hemoglobin (Bld) [Mass/Vol] 10.8 g/dL Low 12.0-15.0 [facility] Comment on above: Performed By: #### L 100.0100, L500.4050 #### [facility] [address] [place], [address] IG% 0.400 Normal 0.0-0.9 [facility] Comment on above: Result Comment: IG% - Immature Granulocytes (promyelocytes, myelocytes and metamyelocytes) > 1% indicates that a LEFT SHIFT is Present. Performed By: #### L 100.0100, L500.4050 #### [facility] [address] [place], [address] Lymphocytes/100 WBC (Bld) 7.0 % Low 19-41 [facility] Comment on above: Performed By: #### L 100.0100, L500.4050 #### [facility] [address] [place], [address] MCH (RBC) [Entitic mass] 29.8 pg Normal 27.0-32.0 [facility] Comment on above: Performed By: #### L 100.0100, L500.4050 #### [facility] [address] [place], [address] MCHC (RBC) [Mass/Vol] 32.6 g/dL Normal 32-36 [facility] Comment on above: Performed By: #### L 100.0100, L500.4050 #### [facility] [address] [place], [address] MCV (RBC) [Entitic vol] 91.2 fL Normal 81-99 [facility] Comment on above: Performed By: #### L 100.0100, L500.4050 #### [facility] [address] [place], [address] Monocytes/100 WBC (Bld) 6.2 % Normal 0-10 [facility] Comment on above: Performed By: #### L 100.0100, L500.4050 #### [facility] [address] [place], [address] Neutrophils/100 WBC (Bld) 86.0 % High 47-70 [facility] Comment on above: Performed By: #### L 100.0100, L500.4050 #### [facility] [address] [place], [address] Nucleated RBC (Bld) [#/Vol] 0 10*3/uL Normal 0-5 [facility] Comment on above: Performed By: #### L 100.0100, L500.4050 #### [facility] [address] [place], [address] Platelet mean volume (Bld) [Entitic vol] 10.3 fL Normal 6.2-12.0 [facility] Comment on above: Performed By: #### L 100.0100, L500.4050 #### [facility] [address] [place], [address] Platelets (Bld) [#/Vol] 244 10*3/uL Normal 150-450 [facility] Comment on above: Performed By: #### L 100.0100, L500.4050 #### [facility] [address] [place], [address] RBC (Bld) [#/Vol] 3.63 10*6/uL Low 4.2-5.4 [facility] Comment on above: Performed By: #### L 100.0100, L500.4050 #### [facility] [address] [place], [address] RDW SD 46.0 fl High 35.1-43.9 [facility] Comment on above: Performed By: #### L 100.0100, L500.4050 #### [facility] [address] [place], [address] WBC (Bld) [#/Vol] 13.6 10*3/uL High 4.4-11.0 [facility] Comment on above: Performed By: #### L 100.0100, L500.4050 #### [facility] [address] [place], [address] CBC-Complete Blood Cnt No Di ffon 12-11-2023 Erythrocyte distribution width (RBC) [Ratio] 13.7 % Normal 11.6-14.6 [facility] Comment on above: Performed By: #### L 501.080 #### [facility] [address] [place], [address] Hematocrit (Bld) [Volume fraction] 30.7 % Low 37-47 [facility] Comment on above: Performed By: #### L 501.080 #### [facility] [address] [place], [address] Hemoglobin (Bld) [Mass/Vol] 10.0 g/dL Low 12.0-15.0 [facility] Comment on above: Performed By: #### L 501.080 #### [facility] [address] [place], [address] MCH (RBC) [Entitic mass] 30.1 pg Normal 27.0-32.0 [facility] Comment on above: Performed By: #### L 501.080 #### [facility] [address] [place], [address] MCHC (RBC) [Mass/Vol] 32.6 g/dL Normal 32-36 [facility] Comment on above: Performed By: #### L 501.080 #### [facility] [address] [place], [address] MCV (RBC) [Entitic vol] 92.5 fL Normal 81-99 [facility] Comment on above: Performed By: #### L 501.080 #### [facility] [address] [place], [address] Platelet mean volume (Bld) [Entitic vol] 10.4 fL Normal 6.2-12.0 [facility] Comment on above: Performed By: #### L 501.080 #### [facility] [address] [place], [address] Platelets (Bld) [#/Vol] 234 10*3/uL Normal 150-450 [facility] Comment on above: Performed By: #### L 501.080 #### [facility] [address] [place], [address] RBC (Bld) [#/Vol] 3.32 10*6/uL Low 4.2-5.4 [facility] Comment on above: Performed By: #### L 501.080 #### [facility] [address] [place], [address] RDW SD 46.5 fl High 35.1-43.9 [facility] Comment on above: Performed By: #### L 501.080 #### [facility] [address] [place], [address] WBC (Bld) [#/Vol] 13.0 10*3/uL High 4.4-11.0 [facility] Comment on above: Performed By: #### L 501.080 #### [facility] [address], [address] Chest 1 View (Portable)on Chest 1 View (Portable) [facility] Imaging Services [address] [place] [address] Chest 1 View (Portable) MR#: [id number] Acct: [id number] Name: KELLIE DOZIER Rep #: [id number] : 1945 F 78 From: Bryan Dumas PCP: Dr. Santo Love MD Status: [facility] ER Study: Chest 1 View (Portable) Date of Exam: 12/11/23 Exam# [id number] Ordering Dr: Panchito Zavaleta MD [id number] INDICATION: trauma EXAMINATION/TECHNIQUE: X-RAY - XR Chest [...] Panchito Zavaleta MD; Dr. Santo Love MD Manager Adult: Signed Normal [facility] Comprehensive Metabolic Prof ilon 12-11-2023 Albumin [Mass/Vol] 3.1 g/dL Low 3.2-5.0 [facility] Comment on above: Performed By: #### L 100.0100, L500.4050 #### [facility] [address] [place], [address] Albumin/Globulin [Mass ratio] 0.9 {ratio} Normal 0.9-2.4 [facility] Comment on above: Performed By: #### L 100.0100, L500.4050 #### [facility] [address] [place], [address] ALK P 96 U/L Normal 45-117 [facility] Comment on above: Performed By: #### L 100.0100, L500.4050 #### [facility] [address] [place], [address] ALT [Catalytic activity/Vol] 24 U/L Normal 13-56 [facility] Comment on above: Performed By: #### L 100.0100, L500.4050 #### [facility] [address] [place], [address] AST [Catalytic activity/Vol] 16 U/L Normal 15-37 [facility] Comment on above: Performed By: #### L 100.0100, L500.4050 #### [facility] [address] [place], [address] Bilirubin [Mass/Vol] 0.40 mg/dL Normal 0.20-1.00 [facility] Comment on above: Result Comment: For patients on eltrombopag therapy, use of Dimension Hollister TBIL is not recommended. Performed By: #### L 100.0100, L500.4050 #### [facility] [address] [place], [address] BUN/CRE 37.8 RATIO High 10-20 [facility] Comment on above: Performed By: #### L 100.0100, L500.4050 #### [facility] [address] [place], [address] CA,Total 9.1 mg/dL Normal 8.5-10.1 [facility] Comment on above: Performed By: #### L 100.0100, L500.4050 #### [facility] [address] [place], [address] Chloride [Moles/Vol] 103 mmol/L Normal 98-107 [facility] Comment on above: Performed By: #### L 100.0100, L500.4050 #### [facility] [address] [place], [address] CO2 [Moles/Vol] 27.0 mmol/L Normal 21.0-32.0 [facility] Comment on above: Performed By: #### L 100.0100, L500.4050 #### [facility] [address] [place], [address] Creatinine [Mass/Vol] 0.98 mg/dL Normal 0.55-1.02 [facility] Comment on above: Result Comment: The validity of the calculated GFR GFRAA in patients over 70 years has not been determined. Clinical correlation is essential. Performed By: #### L 100.0100, L500.4050 #### [facility] [address] [place], [address] EST GFR - AA 70 mL/min Normal >60 [facility] Comment on above: Result Comment: Afri can Guine[place] GFR Calc Performed By: #### L 100.0100, L500.4050 #### [facility] [address] [place], [address] GAP 10 Normal 5-15 [facility] Comment on above: Performed By: #### L 100.0100, L500.4050 #### [facility] [address] [place], [address] GFR/1.73 sq M.predicted among non-blacks MDRD (S/P/Bld) [Vol rate/Area] 58 mL/min/{1.73_m2} Low >60 [facility] Comment on above: Result Comment: Non- GFR Calc Performed By: #### L 100.0100, L500.4050 #### [facility] [address] [place], [address] Globulin (S) [Mass/Vol] 3.4 g/dL Normal 2.2-4.2 [facility] Comment on above: Performed By: #### L 100.0100, L500.4050 #### [facility] [address] [place], [address] Glucose [Mass/Vol] 317 mg/dL High 74-106 [facility] Comment on above: Result Comment: Gluc ose result greater than or equal to 200 mg/dL suggests DIABETES MELLITUS per A.D.A. criteria. Performed By: #### L 100.0100, L500.4050 #### [facility] [address] [place], [address] Potassium [Moles/Vol] 4.2 mmol/L Normal 3.5-5.1 [facility] Comment on above: Performed By: #### L 100.0100, L500.4050 #### [facility] [address] [place], [address] Sodium [Moles/Vol] 140 mmol/L Normal 136-145 [facility] Comment on above: Performed By: #### L 100.0100, L500.4050 #### [facility] [address] [place], [address] T PROT 6.5 g/dL Normal 6.4-8.2 [facility] Comment on above: Performed By: #### L 100.0100, L500.4050 #### [facility] [address] [place], [address] Urea nitrogen [Mass/Vol] 37 mg/dL High 7-18 [facility] Comment on above: Performed By: #### L 100.0100, L500.4050 #### [facility] [address] [place], [address] Determination of erythrocyte mean corpuscular volume (MCV)Ordered By: Panchito Zavaleta on 12-11-2023 MCV (RBC) [Entitic vol] 91.2 fL 81-99 [facility] Emergency Department Summary on 12-11-2023 Emergency Department Summary [facility] Medical Records Department [address] [place] [address] Emergency Department Summary 12/11/23 MR#: [id number] Acct: [id number] Name: KELLIE DOZIER [place] Rep #: [id number] : 1945 78 From: Panchito Zavaleta MD PCP: Dr. Santo Love MD Status:ADM IN Location: [place] [address] HPI HPI - GI History of Present [...] injury. 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 Last dose was a little more than 24 hours ago has not taken her morning medications due to vomiting this morning. [facility] Medical History Atherosclerotic heart disease of [place] coronary artery without angina pectoris Essential hypertension [...] rash Neurolog (more content not included)... Normal [facility] Erythrocyte distribution wid th ratioOrdered By: Panchito Zavaleta on 12-11-2023 Erythrocyte distribution width (RBC) [Ratio] 13.6 % 11.6-14.6 [facility] Erythrocyte distribution wid th standard deviationOrdered By: Panchito Zavaleta on 12-11-2023 Erythrocyte distribution width (RBC) [Entitic vol] 46.0 fL 35.1-43.9 [facility] H AND P Exam - Hospitaliston 12-11-2023 H&P Exam - Hospitalist [facility] Medical Records Department [address] [place] [address] H P Exam - Hospitalist 12/11/23 1137 MR#: [id number] Acct: [id number] Name: KELLIE DOZIER Rep #: [id number] : 1945 78 From: Tahir Rivas DO PCP: Dr. Santo Love MD Status:ADM IN Location: [place] [address] HPI - General General Date of Admission: 12/11/23 Date of Service: 12/11/23 Chief Complaint: Hematemesis HPI Narrative KELLIE DOZIER, is a 78 F who presented to [facility] ED on 12/11/2023 with hematemesis. Patient seen [...] chills. No other acute concerns this time. [facility] Medical History Atherosclerotic heart disease of [place] coronary artery without angina pectoris Essential hypertension [...] chest pain, (more content not included)... Normal [facility] Hematocrit Auto (Bld) [Volum e fraction]Ordered By: Panchito Zavaleta on 12-11-2023 Hematocrit (Bld) [Volume fraction] 33.1 % 37-47 [facility] Hemoglobin A1con 12-11-2023 HbA1c (Bld) [Mass fraction] 8.2 % High 3.8-5.6 [facility] Comment on above: Result Comment: Norm al < 5.7 % Prediabetic 5.7 - 6.4 % Diabetic >or= 6.5 % Please note range changes. Performed By: #### L 501.080 #### [facility] [address] [place] [address]. [place], [address] Immature granulocytes/100 WB C Auto (Bld)Ordered By: Panchito Zavaleta on 12-11-2023 Immature granulocytes/100 WBC (Bld) 0.400 % 0.0-0.9 [facility] Comment on above: IG% - Immature Granu locytes (promyelocytes, myelocytes and metamyelocytes) > 1% indicates that a LEFT SHIFT is Present. Ketones Test strip Ql (U)Ord ered By: Panchito Zavaleta on 12-11-2023 Ketones Ql (U) 150 mg/dl Negative [facility] Comment on above: RESULTS CALLED TO [facility] [place] 12/11/23 Ish1 Shannan Holland.REPORT READ BACK BY SAME.CRITICAL VALUE *H Laboratory - Chemistry and C hemistry - challengeOrdered By: Panchito Zavaleta on 12-11-2023 Albumin/Globulin [Mass ratio] 0.9 {ratio} 0.9-2.4 [facility] ALP [Catalytic activity/Vol] 96 U/L 45-117 [facility] ALT [Catalytic activity/Vol] 24 U/L 13-56 [facility] CO2 [Moles/Vol] 27.0 mmol/L 21.0-32.0 [facility] Globulin (S) [Mass/Vol] 3.4 g/dL 2.2-4.2 [facility] Urea nitrogen/Creatinine [Mass ratio] 37.8 mg/mg 10-20 [facility] Laboratory - Hematology and Cell countsOrdered By: Panchito Zavaleta on 12-11-2023 MCH (RBC) [Entitic mass] 29.8 pg 27.0-32.0 [facility] MCHC (RBC) [Mass/Vol] 32.6 g/dL 32-36 [facility] Nucleated RBC/100 WBC (Bld) [Ratio] 0 % 0-5 [facility] Platelet mean volume (Bld) [Entitic vol] 10.3 fL 6.2-12.0 [facility] Platelets (Bld) [#/Vol] 244 10*3/uL 150-450 [facility] MR/CON.PCM.GIon 12-11-2023 MR/CON.PCM.GI [facility] Medical Records Department [address] [place] [address] Consultation - GI 12/11/232028 MR#: [id number] Acct: [id number] Name: KELLIE DOZIER MARIETTA Rep #: [id number] : 1945 78 From: Cullen Friend DO PCP: Dr. Santo Love MD Status:ADM IN Location: [facility] [id number] HPI Consult Data Date of Consult: 12/11/23 [...] injury. 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 Last dose was a little more than 24 hours ago has not taken her morning medications due to vomiting this morning Her last hgb was 12 severall years ago prior to being admitted today. Her hgb today is 10.2. [facility] Medical History Atherosclerotic heart disease of [place] coronary artery without angina pectoris Essential hypertension [...] Reports hemate (more content not included)... Normal [facility] Mucus LM Ql (Urine sed)Order ed By: Panchito Zavaleta on 12-11-2023 Mucus Ql (Urine sed) 1+ /hpf [facility] Nitrite Test strip Ql (U)Ord ered By: Panchito Zavaleta on 12-11-2023 Nitrite Ql (U) Negative Negative [facility] No Panel InformationOrdered By: Panchito Zavaleta on 12-11-2023 Urine RBC 0-5 SEEN /hpf 0-5 [facility] Estimated GFR (MDRD) Amer 70 mL/min >60 [facility] Comment on above: GFR Calc Estimated GFR (MDRD) Non-Af Amer 58 mL/min >60 [facility] Comment on above: Non- GFR Calc Protein Test strip Ql (U)Ord ered By: Panchito Zavaleta on 12-11-2023 Protein Ql (U) 15 mg/dl Negative [facility] RBC Auto (Bld) [#/Vol]Ordere d By: Panchito Zavaleta on 12-11-2023 RBC (Bld) [#/Vol] 3.63 10*6/uL 4.2-5.4 [facility] Serum or plasma calcium haris urement (mass/volume)Ordered By: Panchito Zavaleta on 12-11-2023 Calcium [Mass/Vol] 9.1 mg/dL 8.5-10.1 [facility] Serum or plasma creatinine m easurement (mass/volume)Ordered By: Panchito Zavaleta on 12-11-2023 Creatinine [Mass/Vol] 0.98 mg/dL 0.55-1.02 [facility] Comment on above: The validity of the calculated GFR & GFRAA in patients over 70 years has not been determined. Clinical correlation is essential. Serum or plasma urea nitroge n measurement (mass/volume)Ordered By: Panchito Zavaleta on 12-11-2023 Urea nitrogen [Mass/Vol] 37 mg/dL 7-18 [facility] Squamous epithelial cells de tection in urine sediment by light microscopyOrdered By: Panchito Zavaleta on 12-11-2023 Epithelial cells.squamous LM Ql (Urine sed) 0-5 SEEN /hpf 5-10 [facility] Thin prep Papanicolaou smear with manual screeningOrdered By: Panchito Zavaleta on 12-11-2023 Thin prep Papanicolaou smear with manual screening 3.1 g/dL 3.2-5.0 [facility] Thin prep Papanicolaou smear with manual screening 16 U/L 15-37 [facility] Thin prep Papanicolaou smear with manual screening 10 5-15 [facility] Type AND Screenon 12-11-2023 ABO and Rh group Nom (Bld) Blood group A Rh(D) positive Normal [facility] Comment on above: Order Comment: HGI Performed By: #### L 501.080 #### [facility] Laboratory [address] [place], [address] Urinalysis, Completeon 12-11 BACTERIA RARE Normal None Seen [facility] Comment on above: Order Comment: CLEAN CATCH Performed By: #### L 501.080 #### [facility] [address] [place], [address] EPI,SQUAMOUS 0-5 SEEN Normal 5-10 [facility] Comment on above: Order Comment: CLEAN CATCH Performed By: #### L 501.080 #### [facility] [address] [place], [address] Mucus Ql (Urine sed) 1+ /hpf Normal [facility] Comment on above: Order Comment: CLEAN CATCH Performed By: #### L 501.080 #### [facility] [address] [place], [address] RBC 0-5 SEEN Normal 0-5 [facility] Comment on above: Order Comment: CLEAN CATCH Performed By: #### L 501.080 #### [facility] [address] [place], [address] WBC 0-5 SEEN Normal 0-5 [facility] Comment on above: Order Comment: CLEAN CATCH Performed By: #### L 501.080 #### [facility] [place], [address] Urine blood detectionOrdered By: Panchito Zavaleta on 12-11-2023 RBC Ql (U) Negative Negative [facility] Urine clarityOrdered By: Martina Zavaleta on 12-11-2023 Clarity (U) Sl. Cloudy Clear [facility] Urine color determinationOrd ered By: Panchito Zavaleta on 12-11-2023 Color (U) Yellow Yellow [facility] Urine glucose detectionOrder ed By: Panchito Zavaleta on 12-11-2023 Glucose Ql (U) 1000 mg/dl Normal [facility] Urine leukocyte esterase det ection by dipstickOrdered By: Panchito Zavaleta on 12-11-2023 Leukocyte esterase Test strip Ql (U) 25 /ul Negative [facility] Urine pHOrdered By: Panchito Zavaleta on 12-11-2023 pH (U) 5.0 [pH] 5.0 - 8.0 [facility] Urine sediment bacteria coun t by microscopy (number/high power field)Ordered By: Panchito Zavaleta on 12-11-2023 Bacteria LM.HPF (Urine sed) [#/Area] RARE /hpf None Seen [facility] Urine specific gravity measu rementOrdered By: Panchito Zavaleta on 12-11-2023 Specific gravity (U) [Rel density] 1.015 1.002-1.03 0 [facility] Urine urobilinogen measureme ntOrdered By: Panchito Zavaleta on 12-11-2023 Urobilinogen Ql (U) Normal mg/dl Normal [facility] Whole blood hemoglobin A1c/t otal hemoglobin ratio (mass fraction)Ordered By: Tahir Rivas on 12-11-2023 HbA1c (Bld) [Mass fraction] 8.2 % 3.8-5.6 [facility] Comment on above: Normal < 5.7 % Predi abetic 5.7 - 6.4 % Diabetic >or= 6.5 % Please note range changes. GENEVA SCREENINGon 07-02-2023 [facility] CBC W Auto Differential pane l (Bld)on 05-07-2023 Basophils (Bld) [#/Vol] 0.08 10*3/uL <0.11 k/uL [facility] Basophils/100 WBC (Bld) 1.0 % [facility] Differential cell count method Nom (Bld) Auto [facility] Eosinophils (Bld) [#/Vol] 0.15 10*3/uL <0.46 k/uL [facility] Eosinophils/100 WBC (Bld) 1.9 % [facility] Erythrocyte distribution width (RBC) [Ratio] 13.4 % 11.5 - 15.0 % [facility] Hematocrit (Bld) [Volume fraction] 39.0 % 36.0 - 46.0 % [facility] Hemoglobin (Bld) [Mass/Vol] 12.7 g/dL 11.5 - 15.5 g/dL [facility] Immature granulocytes (Bld) [#/Vol] 0.04 10*3/uL <0.10 k/uL [facility] Immature granulocytes/100 WBC (Bld) 0.5 % [facility] Lymphocytes (Bld) [#/Vol] 1.78 10*3/uL 1.00 - 4.00 k/uL [facility] Lymphocytes/100 WBC (Bld) 22.7 % [facility] MCH (RBC) [Entitic mass] 30.5 pg 26.0 - 34.0 pg [facility] MCHC (RBC) [Mass/Vol] 32.6 g/dL 30.5 - 36.0 g/dL [facility] MCV (RBC) [Entitic vol] 93.8 fL 80.0 - 100.0 fL [facility] Monocytes (Bld) [#/Vol] 0.73 10*3/uL <0.87 k/uL [facility] Monocytes/100 WBC (Bld) 9.3 % [facility] Neutrophils (Bld) [#/Vol] 5.07 10*3/uL 1.45 - 7.50 k/uL [facility] Neutrophils/100 WBC (Bld) 64.6 % [facility] Nucleated RBC (Bld) [#/Vol] <0.01 k/uL [facility] Nucleated RBC/100 WBC (Bld) [Ratio] 0.0 /100 WBC [facility] Platelet mean volume (Bld) [Entitic vol] 10.9 fL 9.0 - 12.7 fL [facility] Platelets (Bld) [#/Vol] 223 10*3/uL 150 - 400 k/uL [facility] RBC (Bld) [#/Vol] 4.16 10*6/uL 3.90 - 5.20 m/uL [facility] WBC (Bld) [#/Vol] 7.85 10*3/uL 3.70 - 11.00 k/uL [facility] HbA1c (Bld)on 01-29-2023 Average glucose Estimated from glycated hemoglobin (Bld) [Mass/Vol] 166 mg/dL [facility] HbA1c (Bld) [Mass fraction] 7.4 % High 4.3 - 5.6 % [facility] GENEVA SCREENINGon 05-30-2022 [facility] DXA-AXIAL SKELETONon 022 [facility] EMERGENCY REPORTon EMERGENCY REPORT [facility] EMERGENCY ROOM REPORT NAME ACCOUNT SEX AGE ADMIT DISCHARGE PT MED. RECORD# NUMBER DATE DATE TYPE YELENA [id number] F 75 11/29/20 11/29/20 3 KELLIE Ac[place] [id number] ROOM: ER DATE OF : 1945 DICTATING [...] Jack Meyer DO 11/29/20 10:44 JOB #: [id number] Transcribed By: am 11/29/20 12:04 Electronically signed by: E-SIGN: Jack Meyer D.O. 12/06/20 08:23 Page 1 of 1 KELLIE DOZIER Emergency Room Report Normal [facility] EMERGENCY REPORT [facility] EMERGENCY ROOM REPORT NAME ACCOUNT SEX AGE ADMIT DISCHARGE PT MED. RECORD# NUMBER DATE DATE TYPE YELENA, [id number] F 75 11/29/20 3 KELLIE [place] [id number] ROOM: ER DATE OF : 1945 DICTATING [...] Jack Meyer DO 11/29/20 10:15 JOB #: [id number] Transcribed By: eva 11/29/20 10:55 Electronically signed by: E-SIGN: Jack Meyer D.O. 12/06/20 08:23 Page 1 of 1 KELLIE DOZIER Emergency Room Report Normal [facility] EMERGENCY REPORT [facility] EMERGENCY ROOM REPORT NAME ACCOUNT SEX AGE ADMIT DISCHARGE PT MED. RECORD# NUMBER DATE DATE TYPE YELENA [id number] F 75 11/29/20 11/29/20 3 KELLIE [place] [id number] ROOM: ER DATE OF : 1945 DICTATING [...] Jack Meyer DO 11/29/20 11:30 JOB #: [id number] Transcribed By: marcella 11/29/20 11:50 Electronically signed by: E-SIGN: Jack Meyer D.O. 12/06/20 08:23 Page 1 of 1 KELLIE DOZIER Emergency Room Report [facility] 02-12-[address] [facility] Office Visit (AGCARDWST) ----KELLIE DOZIER ([id number]) 1945 [facility] Time Provider Department02/12/18 11:30 AM DANIEL [...] - metBeta librado for ASHD with prior MO or prior LVEFANDlt;40 (NQF 0070) - N/ABeta [...] verbalizesunderstanding and agrees with treatment plan.DIAGNOSIS FOR VISIT:PAFWAYSIDE EMERGENCY HOSPITALISTORY OF PRESENT ILLNESSKellie Dozier returns for [...] as directed.COMPOUNDED PRESCRIPTION INR standing orderFax to [phone]: atrial fiblisinopril (ZESTRIL, PRINIVIL) 20 mg tablet [...] mouth oncedaily.COMPOUNDED PRESCRIPTION Standing order inrFax to [phone]: A fibdiphenhydrAMINE (BENADRYL) 25 mg capsule Take [...] TAB) Take one(1) tablet daily.COMPOUNDED PRESCRIPTION vitamin q01XQPCAYF + D 600 MG-200 UNIT TAB Take [...] LDL was 82.Electronically Signed:Ashley Kenney 2017 11:56 [facility]: Silvana Muir MD 02/12/2018 11:58 AM SignedCheck [...] programs in your area.Referring Provider: DANIEL MARCELO [[id number]]Allergies As of Date: 02/12/2018 Noted Allergy ReactionAMOXICILLIN 07/23/2007 6 - DiarrheaMETFORMIN 04/02/2007 6 - DiarrheaSHELLFISH 06/17/2008 6 - Diarrhea 11 - VomitingDate Reviewed: 02/12/2018Reviewed by: Lisa Stephenson - Fully AssessedReason for Visit: Follow Up [171]Primary Visit Diagnosis:ASHD (arteriosclerotic heart disease) [I25.10] Other Visit Diagnosis:PAF (paroxysmal atrial fibrillation) ([facility]) [I48.0]Order(s):nitroglycerin sublingual (NITROSTAT) 0.4 mg SL tabletDissolve 1 tablet under the tongue as needed for Chest Pain. If no pain relief call 911.Disp: 25 Bottle of 25Rfl: 3 MAGNESIUM BLD [SQMG1] Order #: [id number] FUTURE LIPID PANEL BASIC [SQLIPB] Order #: [id number] FUTUREPrescriptions as of 02/12/2018 Sig: WARFARIN 5 [...] [D12.6] INVALID FOR* Diverticulitis [K57.92] INVALID FOR* 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 [Z79.01]INVALID FOR* Persistent atrial fibrillation (HCC) [I48.1] INVALID FOR* Other instructions from your clinician: Check on cost of Eliquis versus Xarelto LIFESTYLE CHANGE A healthy lifestyle is the most important component of your overall treatment plan. 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 EAT A WHOLE FOOD, PLANT BASED [...] Status:Closed by DANIEL MARCELO MD on 02/13/18 [facility] PROGRESSon 02-12-2018 Protein mass conc HNO ID: [id number] thor: Daniel Arreola: (none)Author Type: PhysicianType: Progress NotesFiled: 02/13/2018 3:18 PMNote Text:PERTINENT CARDIAC HISTORYASHD - PCI RCA and LAD, 2009PAFHTNHLDMSVTMobitz I 2nd degree AVBADHERENCE TO GUIDELINESACE-I or ARB for HF with prior LVEF<40 (NQF 0081) - N/AASA or Plavix for ASHD (NQF 0067) - metBeta librado for ASHD with prior MO or prior LVEF<40 (NQF 0070) - N/ABeta [...] or asdirected.COMPOUNDED PRESCRIPTION INR standing orderFax to [phone]: atrialfiblisinopril (ZESTRIL, PRINIVIL) 20 mg tablet TAKE [...] mouthonce daily.COMPOUNDED PRESCRIPTION Standing order inrFax to [phone]: A fibdiphenhydrAMINE (BENADRYL) 25 mg capsule Take [...] TAB) Take one(1) tablet daily.COMPOUNDED PRESCRIPTION vitamin z47PPONMDR + D 600 MG-200 UNIT TAB Take [...] LDL was 82.Electronically Signed:Ashley Kenney 2017 11:56 [facility]: Santo Love MD [facility] Vital Signs Date Time Vital Sign Value Performing Clinician Facility 05-29-2025 11:40-0400 Diastolic blood pressure 69 mm[Hg] Juliana Davis APRN.PEDICURIST Work Phone: [facility] Comment on above: Average: Kaitlin BP 05-29-2025 11:40-0400 Heart rate 66 /min Juliana Davis APRN.PEDICURIST Work Phone: [facility] 05-29-2025 11:40-0400 Systolic blood pressure 124 mm[Hg] Juliana Davis APRN.PEDICURIST Work Phone: [facility] Comment on above: Average: Kaitlin BP 05-29-2025 11:34-0400 Body mass index (BMI) [Ratio] 26.61 kg/m2 Juliana Davis APRN.PEDICURIST Work Phone: [facility] 05-29-2025 11:34-0400 Body weight 70.31 kg Juliana Suzanneparris APPLICATION SERVICES MANAGER.PEDICURIST Work Phone: [facility] 05-29-2025 11:34-0400 SaO2% (BldA) [Mass fraction] 96 % Juliana Davis APPLICATION SERVICES MANAGER.PEDICURIST Work Phone: [facility] 05-09-2025 10:52-0400 Diastolic blood pressure 76 mm[Hg] Zari Sorenson MD Work Phone: [facility] 05-09-2025 10:52-0400 Heart rate 71 /min Zari Sorenson MD Work Phone: [facility] 05-09-2025 10:52-0400 Respiratory rate 15 /min Zari Sorenson MD Work Phone: [facility] 05-09-2025 10:52-0400 SaO2% (BldA) [Mass fraction] 96 % Zari Sorenson MD Work Phone: [facility] 05-09-2025 10:52-0400 Systolic blood pressure 158 mm[Hg] Zari Sorenson MD Work Phone: [facility] 05-09-2025 09:24-0400 Body mass index (BMI) [Ratio] 26.68 kg/m2 Zari Sorenson MD Work Phone: [facility] 05-09-2025 09:24-0400 Body temperature 97.9 [degF] Zari Sorenson MD Work Phone: [facility] 05-09-2025 09:24-0400 Body weight 70.5 kg Zari Sorenson MD Work Phone: [facility] 05-04-2025 10:29-0400 Body mass index (BMI) [Ratio] 26.67 kg/m2 Elizabeth Ortega APPLICATION SERVICES MANAGER.PEDICURIST Work Phone: [facility] 05-04-2025 10:29-0400 Body weight 70.49 kg Elizabeth Ortega APPLICATION SERVICES MANAGER.PEDICURIST Work Phone: [facility] 05-04-2025 10:29-0400 Diastolic blood pressure 70 mm[Hg] Elizabeth Reilly APPLICATION SERVICES MANAGER.PEDICURIST Work Phone: [facility] 05-04-2025 10:29-0400 Heart rate 62 /min Elizabeth Reilly APPLICATION SERVICES MANAGER.PEDICURIST Work Phone: [facility] 05-04-2025 10:29-0400 Respiratory rate 14 /min Elizabeth Reilly APPLICATION SERVICES MANAGER.PEDICURIST Work Phone: [facility] 05-04-2025 10:29-0400 SaO2% (BldA) [Mass fraction] 98 % Elizabeth Reilly APPLICATION SERVICES MANAGER.PEDICURIST Work Phone: [facility] 05-04-2025 10:29-0400 Systolic blood pressure 146 mm[Hg] Elizabeth Reilly APPLICATION SERVICES MANAGER.PEDICURIST Work Phone: [facility] 05-01-2025 14:27-0400 Diastolic blood pressure 65 mm[Hg] Raisa Haagen APPLICATION SERVICES MANAGER.PEDICURIST Work Phone: [facility] Comment on above: KAITLIN BP 05-01-2025 14:27-0400 Heart rate 66 /min Raisa Haagen APPLICATION SERVICES MANAGER.PEDICURIST Work Phone: [facility] 05-01-2025 14:27-0400 Systolic blood pressure 179 mm[Hg] Raisa Haagen APPLICATION SERVICES MANAGER.PEDICURIST Work Phone: [facility] Comment on above: KAITLIN BP 05-01-2025 13:44-0400 Body mass index (BMI) [Ratio] 26.78 kg/m2 Raisa Haagen APPLICATION SERVICES MANAGER.PEDICURIST Work Phone: [facility] 05-01-2025 13:44-0400 Body weight 70.76 kg Raisa Haagen APPLICATION SERVICES MANAGER.PEDICURIST Work Phone: [facility] 05-01-2025 13:44-0400 Respiratory rate 16 /min Raisa Haagen APPLICATION SERVICES MANAGER.PEDICURIST Work Phone: [facility] 05-01-2025 13:44-0400 SaO2% (BldA) [Mass fraction] 95 % Raisa Haagen APPLICATION SERVICES MANAGER.PEDICURIST Work Phone: [facility] 03-07-2025 10:59-0400 Diastolic blood pressure 62 mm[Hg] Raisa Haagen APPLICATION SERVICES MANAGER.PEDICURIST Work Phone: [facility] Comment on above: KAITLIN BP 03-07-2025 10:59-0400 Heart rate 55 /min Raisa Haagen APPLICATION SERVICES MANAGER.PEDICURIST Work Phone: [facility] 03-07-2025 10:59-0400 Systolic blood pressure 133 mm[Hg] Raisa Haagen APPLICATION SERVICES MANAGER.PEDICURIST Work Phone: [facility] Comment on above: KAITLIN BP 03-07-2025 10:47-0400 Respiratory rate 16 /min Raisa Haagen APPLICATION SERVICES MANAGER.PEDICURIST Work Phone: [facility] 03-07-2025 10:47-0400 SaO2% (BldA) [Mass fraction] 94 % Raisa Haagen APPLICATION SERVICES MANAGER.PEDICURIST Work Phone: [facility] 02-07-2025 11:23-0400 Diastolic blood pressure 67 mm[Hg] Raisa Haagen APPLICATION SERVICES MANAGER.PEDICURIST Work Phone: [facility] Comment on above: KAITLIN BP 02-07-2025 11:23-0400 Heart rate 64 /min Raisa Haagen APPLICATION SERVICES MANAGER.PEDICURIST Work Phone: [facility] 02-07-2025 11:23-0400 Systolic blood pressure 166 mm[Hg] Raisa Haagen APPLICATION SERVICES MANAGER.PEDICURIST Work Phone: [facility] Comment on above: KAITLIN BP 02-07-2025 10:49-0400 Body mass index (BMI) [Ratio] 26.43 kg/m2 Raisa Haagen APPLICATION SERVICES MANAGER.PEDICURIST Work Phone: [facility] 02-07-2025 10:49-0400 Body weight 69.85 kg Raisa Haagen APPLICATION SERVICES MANAGER.PEDICURIST Work Phone: [facility] 02-07-2025 10:49-0400 Respiratory rate 16 /min Raisa Haagen APPLICATION SERVICES MANAGER.PEDICURIST Work Phone: [facility] 02-07-2025 10:49-0400 SaO2% (BldA) [Mass fraction] 92 % Raisa Haagen APPLICATION SERVICES MANAGER.PEDICURIST Work Phone: [facility] 12-13-2024 10:56-0500 Diastolic blood pressure 70 mm[Hg] Raisa Haagen APPLICATION SERVICES MANAGER.PEDICURIST Work Phone: [facility] 12-13-2024 10:56-0500 Heart rate 55 /min Raisa Haagen APPLICATION SERVICES MANAGER.PEDICURIST Work Phone: [facility] 12-13-2024 10:56-0500 Respiratory rate 16 /min Raisa Haagen APPLICATION SERVICES MANAGER.PEDICURIST Work Phone: [facility] 12-13-2024 10:56-0500 SaO2% (BldA) [Mass fraction] 94 % Raisa Haagen APPLICATION SERVICES MANAGER.PEDICURIST Work Phone: [facility] 12-13-2024 10:56-0500 Systolic blood pressure 128 mm[Hg] Raisa Haagen APPLICATION SERVICES MANAGER.PEDICURIST Work Phone: [facility] 11-29-2024 10:43-0500 Body mass index (BMI) [Ratio] 25.23 kg/m2 Leonela Bear MD Work Phone: [facility] 11-29-2024 10:43-0500 Body weight 66.68 kg Leonela Bear MD Work Phone: [facility] 11-29-2024 10:43-0500 Diastolic blood pressure 62 mm[Hg] Leonela Bear MD Work Phone: [facility] 11-29-2024 10:43-0500 Heart rate 75 /min Leonela Bear MD Work Phone: [facility] 11-29-2024 10:43-0500 Respiratory rate 17 /min Leonela Bear MD Work Phone: [facility] 11-29-2024 10:43-0500 SaO2% (BldA) [Mass fraction] 97 % Leonela Bear MD Work Phone: [facility] 11-29-2024 10:43-0500 Systolic blood pressure 108 mm[Hg] Leonela Bear MD Work Phone: [facility] 11-19-2024 10:03-0500 Diastolic blood pressure 84 mm[Hg] Santo Love MD Work Phone: [facility] 11-19-2024 10:03-0500 Systolic blood pressure 170 mm[Hg] Santo Love MD Work Phone: [facility] 11-19-2024 09:34-0500 Body height 162.6 cm Santo Love MD Work Phone: [facility] 11-19-2024 09:34-0500 Body mass index (BMI) [Ratio] 25.23 kg/m2 Santo Love MD Work Phone: [facility] 11-19-2024 09:34-0500 Body weight 66.68 kg Santo Love MD Work Phone: [facility] 11-19-2024 09:34-0500 Heart rate 67 /min Santo Love MD Work Phone: [facility] 07-13-2024 11:28-0400 Body mass index (BMI) [Ratio] 24.03 kg/m2 Santo Love MD Work Phone: [facility] 07-13-2024 11:28-0400 Body weight 63.5 kg Santo Love MD Work Phone: [facility] 07-13-2024 11:28-0400 Diastolic blood pressure 62 mm[Hg] Santo Love MD Work Phone: [facility] 07-13-2024 11:28-0400 Heart rate 52 /min Santo Love MD Work Phone: [facility] 07-13-2024 11:28-0400 SaO2% (BldA) [Mass fraction] 97 % Santo Love MD Work Phone: [facility] 07-13-2024 11:28-0400 Systolic blood pressure 104 mm[Hg] Santo Love MD Work Phone: [facility] 06-20-2024 11:07-0400 Diastolic blood pressure 70 mm[Hg] Juliana Suppan APPLICATION SERVICES MANAGER.PEDICURIST Work Phone: [facility] 06-20-2024 11:07-0400 Systolic blood pressure 120 mm[Hg] Juliana Suppan APPLICATION SERVICES MANAGER.PEDICURIST Work Phone: [facility] 06-20-2024 10:46-0400 Body mass index (BMI) [Ratio] 23.86 kg/m2 Juliana Suppan APPLICATION SERVICES MANAGER.PEDICURIST Work Phone: [facility] 06-20-2024 10:46-0400 Body weight 63.05 kg Juliana Suppan APPLICATION SERVICES MANAGER.PEDICURIST Work Phone: [facility] 06-20-2024 10:46-0400 Heart rate 60 /min Juliana Suppan APPLICATION SERVICES MANAGER.PEDICURIST Work Phone: [facility] 06-20-2024 10:46-0400 Respiratory rate 16 /min Juliana Suppan APPLICATION SERVICES MANAGER.PEDICURIST Work Phone: [facility] 06-20-2024 10:46-0400 SaO2% (BldA) [Mass fraction] 97 % Juliana Suppan APPLICATION SERVICES MANAGER.PEDICURIST Work Phone: [facility] 05-12-2024 10:07-0400 Body mass index (BMI) [Ratio] 23.52 kg/m2 Juliana Suppan APPLICATION SERVICES MANAGER.PEDICURIST Work Phone: [facility] 05-12-2024 10:07-0400 Body weight 62.14 kg Juliana Suppan APPLICATION SERVICES MANAGER.PEDICURIST Work Phone: [facility] 05-12-2024 10:07-0400 Diastolic blood pressure 56 mm[Hg] Juliana Suppan APPLICATION SERVICES MANAGER.PEDICURIST Work Phone: [facility] 05-12-2024 10:07-0400 Heart rate 72 /min Juliana Suppan APPLICATION SERVICES MANAGER.PEDICURIST Work Phone: [facility] 05-12-2024 10:07-0400 Respiratory rate 16 /min Juliana Davis APPLICATION SERVICES MANAGER.PEDICURIST Work Phone: [facility] 05-12-2024 10:07-0400 SaO2% (BldA) [Mass fraction] 96 % Juliana Davis APPLICATION SERVICES MANAGER.PEDICURIST Work Phone: [facility] 05-12-2024 10:07-0400 Systolic blood pressure 142 mm[Hg] Juliana Palaciosparris APPLICATION SERVICES MANAGER.PEDICURIST Work Phone: [facility] 04-12-2024 15:21-0400 Body height 162.6 cm Santo Love MD Work Phone: [facility] 04-12-2024 15:21-0400 Body mass index (BMI) [Ratio] 23.52 kg/m2 Santo Love MD Work Phone: [facility] 04-12-2024 15:21-0400 Body weight 62.14 kg Santo Love MD Work Phone: [facility] 04-12-2024 15:21-0400 Diastolic blood pressure 74 mm[Hg] Santo Love MD Work Phone: [facility] 04-12-2024 15:21-0400 Heart rate 69 /min Santo Love MD Work Phone: [facility] 04-12-2024 15:21-0400 SaO2% (BldA) [Mass fraction] 98 % Santo Love MD Work Phone: [facility] 04-12-2024 15:21-0400 Systolic blood pressure 174 mm[Hg] Santo Love MD Work Phone: [facility] 02-22-2024 08:06-0400 Body mass index (BMI) [Ratio] 23.34 kg/m2 Leonela Bear MD Work Phone: [facility] 02-22-2024 08:06-0400 Body temperature 98.29 [degF] Leonela Bear MD Work Phone: [facility] 02-22-2024 08:06-0400 Body weight 61.69 kg Leonela Bear MD Work Phone: [facility] 02-22-2024 08:06-0400 Diastolic blood pressure 64 mm[Hg] Leonela Bear MD Work Phone: [facility] 02-22-2024 08:06-0400 Heart rate 52 /min Leonela Bear MD Work Phone: [facility] 02-22-2024 08:06-0400 SaO2% (BldA) [Mass fraction] 94 % Leonela Bear MD Work Phone: [facility] 02-22-2024 08:06-0400 Systolic blood pressure 140 mm[Hg] Leonela Bear MD Work Phone: [facility] 02-08-2024 10:59-0400 Diastolic blood pressure 70 mm[Hg] NA Rodriguez PA-C Work Phone: [facility] 02-08-2024 10:59-0400 Heart rate 52 /min NA Rodriguez PA-C Work Phone: [facility] 02-08-2024 10:59-0400 Systolic blood pressure 119 mm[Hg] NA Rodriguez PA-C Work Phone: [facility] 02-08-2024 10:50-0400 Body weight 61.69 kg NA Rodriguez PA-C Work Phone: [facility] 02-08-2024 10:50-0400 Respiratory rate 16 /min NA Rodriguez PA-C Work Phone: [facility] 02-08-2024 10:50-0400 SaO2% (BldA) [Mass fraction] 98 % NA Rodriguez PA-C Work Phone: [facility] 02-04-2024 07:15-0400 Body temperature 97.6 [degF] Dr. Santo Love Work Phone: [facility] 02-04-2024 07:15-0400 Diastolic blood pressure 58 mm[Hg] Dr. Santo Love Work Phone: [facility] 02-04-2024 07:15-0400 Heart rate 75 /min Dr. Santo Love Work Phone: [facility] 02-04-2024 07:15-0400 Respiratory rate 16 /min Dr. Santo Love Work Phone: [facility] 02-04-2024 07:15-0400 SaO2% (BldA) [Mass fraction] 94 % Dr. Santo Love Work Phone: [facility] 02-04-2024 07:15-0400 Systolic blood pressure 110 mm[Hg] Dr. Santo Love Work Phone: [facility] 02-04-2024 05:43-0400 Body height 162.[address] Santo Love Work Phone: [facility] 02-04-2024 05:43-0400 Body mass index (BMI) [Ratio] 23.4 kg/m2 Dr. Santo Love Work Phone: [facility] 02-04-2024 05:43-0400 Body weight [address] Santo Love Work Phone: [facility] 02-02-2024 14:39-0400 Body height 162.6 cm Zac Duncan PA-C Work Phone: [facility] 02-02-2024 14:39-0400 Body temperature 98.4 [degF] Zac Duncan PA-C Work Phone: [facility] 02-02-2024 14:39-0400 Body weight 62.78 kg Zac Duncan PA-C Work Phone: [facility] 02-02-2024 14:39-0400 Diastolic blood pressure 76 mm[Hg] Zac Duncan PA-C Work Phone: [facility] 02-02-2024 14:39-0400 Heart rate 80 /min Zac Duncan PA-C Work Phone: [facility] 02-02-2024 14:39-0400 Respiratory rate 12 /min Zac Duncan PA-C Work Phone: [facility] 02-02-2024 14:39-0400 SaO2% (BldA) [Mass fraction] 98 % Zac Duncan PA-C Work Phone: [facility] 02-02-2024 14:39-0400 Systolic blood pressure 180 mm[Hg] Zac Duncan PA-C Work Phone: [facility] 01-06-2024 08:47-0500 Body weight 62.6 kg Santo Love MD Work Phone: [facility] 01-06-2024 08:47-0500 Diastolic blood pressure 82 mm[Hg] Santo Love MD Work Phone: [facility] 01-06-2024 08:47-0500 Heart rate 75 /min Santo Love MD Work Phone: [facility] 01-06-2024 08:47-0500 SaO2% (BldA) [Mass fraction] 97 % Santo Love MD Work Phone: [facility] 01-06-2024 08:47-0500 Systolic blood pressure 172 mm[Hg] Santo Love MD Work Phone: [facility] 12-22-2023 11:42-0500 Body temperature 98.2 [degF] Dr. Santo Love Work Phone: [facility] 12-22-2023 11:42-0500 Diastolic blood pressure 65 mm[Hg] Dr. Santo Love Work Phone: [facility] 12-22-2023 11:42-0500 Heart rate 82 /min Dr. Santo Love Work Phone: [facility] 12-22-2023 11:42-0500 Respiratory rate 17 /min Dr. Santo Love Work Phone: [facility] 12-22-2023 11:42-0500 SaO2% (BldA) [Mass fraction] 95 % Dr. Santo Loev Work Phone: [facility] 12-22-2023 11:42-0500 Systolic blood pressure 152 mm[Hg] Dr. Santo Love Work Phone: 1(885)801-209876 [place] [address] 12-21-2023 14:06-0500 Body height 162.[address] Santo Love Work Phone: 3(227)529-241376 [place] [address] 12-21-2023 14:06-0500 Body weight 62.[address] Santo Love Work Phone: 5(404)852-876776 [place] [address] 12-15-2023 13:59-0500 Body mass index (BMI) [Ratio] 23.6 kg/m2 Dr. Santo Love Work Phone: 1(579)082-458876 [place] [address] 12-15-2023 07:14-0500 Diastolic blood pressure 59 mm[Hg] Dr. Santo Love Work Phone: 0(429)030-713976 [place] [address] 12-15-2023 07:14-0500 Heart rate 108 /min Dr. Santo Love Work Phone: 4(589)595-097476 [place] [address] 12-15-2023 07:14-0500 Respiratory rate 16 /min Dr. Santo Love Work Phone: 1(497)173-191976 [place] [address] 12-15-2023 07:14-0500 SaO2% (BldA) [Mass fraction] 98 % Dr. Santo Love Work Phone: 3(112)628-544876 [place] [address] 12-15-2023 07:14-0500 Systolic blood pressure 132 mm[Hg] Dr. Santo Love Work Phone: 2(181)971-279276 [place] [address] 12-15-2023 05:40-0500 Body height 162.[address] Santo Love Work Phone: 0(000)632-708876 [place] [address] 12-15-2023 05:40-0500 Body mass index (BMI) [Ratio] 26.1 kg/m2 Dr. Santo Love Work Phone: 3(830)479-464476 [place] [address] 12-15-2023 05:40-0500 Body temperature 97.2 [degF] Dr. Santo Love Work Phone: 8(790)134-787876 [place] [address] 12-15-2023 05:40-0500 Body weight [address] Santo Love Work Phone: 9(191)602-491056 [place] [address] 12-13-2023 15:30-0500 Heart rate 80 /min Dr. Snato Love Work Phone: 5(707)426-005376 [place] [address] 12-13-2023 14:43-0500 Body temperature 97.6 [degF] Dr. Santo Love Work Phone: 1(859)962-754576 [place] [address] 12-13-2023 14:43-0500 Diastolic blood pressure 51 mm[Hg] Dr. Santo Love Work Phone: 7(290)555-784176 [place] [address] 12-13-2023 14:43-0500 Respiratory rate 18 /min Dr. Santo Love Work Phone: 1(013)365-433576 [place] [address] 12-13-2023 14:43-0500 SaO2% (BldA) [Mass fraction] 99 % Dr. Santo Love Work Phone: 9(295)474-273256 [place] [address] 12-13-2023 14:43-0500 Systolic blood pressure 116 mm[Hg] Dr. Santo Love Work Phone: 9(783)892-721676 [place] [address] 12-12-2023 11:23-0500 Body height 162.[address] Santo Love Work Phone: 6(973)081-368176 [place] [address] 12-12-2023 11:23-0500 Body mass index (BMI) [Ratio] 24.3 kg/m2 Dr. Santo Love Work Phone: 6(687)434-211456 [place] [address] 12-12-2023 11:23-0500 Body weight 64.[address] Santo Love Work Phone: 4(309)392-123156 [place] [address] 12-11-2023 11:59-0500 Diastolic blood pressure 60 mm[Hg] [facility] 12-11-2023 11:59-0500 Systolic blood pressure 151 mm[Hg] [facility] 12-11-2023 11:58-0500 Heart rate 76 /min [facility] 12-11-2023 11:58-0500 Respiratory rate 16 /min [facility] 12-11-2023 07:46-0500 Body height 162.56 cm [facility] 12-11-2023 07:46-0500 Body temperature 98.1 [degF] [facility] 12-11-2023 07:46-0500 SaO2% (BldA) [Mass fraction] 99 % [facility] 05-07-2023 10:43-0400 Body height 162.6 cm Santo Love MD Work Phone: [facility] 05-07-2023 10:43-0400 Body weight 65.41 kg Santo Love MD Work Phone: [facility] 05-07-2023 10:43-0400 Diastolic blood pressure 52 mm[Hg] Santo Love MD Work Phone: [facility] 05-07-2023 10:43-0400 Heart rate 65 /min Santo Love MD Work Phone: [facility] 05-07-2023 10:43-0400 SaO2% (BldA) [Mass fraction] 97 % Santo Love MD Work Phone: [facility] 05-07-2023 10:43-0400 Systolic blood pressure 106 mm[Hg] Santo Love MD Work Phone: [facility] 01-29-2023 10:19-0400 Body weight 64.41 kg Santo Love MD Work Phone: [facility] 01-29-2023 10:19-0400 Diastolic blood pressure 62 mm[Hg] Santo Love MD Work Phone: [facility] 01-29-2023 10:19-0400 Heart rate 70 /min Santo Love MD Work Phone: [facility] 01-29-2023 10:19-0400 SaO2% (BldA) [Mass fraction] 97 % Santo Love MD Work Phone: [facility] 01-29-2023 10:19-0400 Systolic blood pressure 112 mm[Hg] Santo Love MD Work Phone: [facility] 01-01-2023 10:18-0500 Body temperature 97.2 [degF] SAM Rodriguez PA-C Work Phone: [facility] 01-01-2023 10:18-0500 Body weight 63.5 kg NA Rodriguez PA-C Work Phone: [facility] 01-01-2023 10:18-0500 Diastolic blood pressure 82 mm[Hg] NA Rodriguez PA-C Work Phone: [facility] 01-01-2023 10:18-0500 Heart rate 76 /min NA Rodriguez PA-C Work Phone: [facility] 01-01-2023 10:18-0500 Respiratory rate 16 /min NA Rodriguez PA-C Work Phone: [facility] 01-01-2023 10:18-0500 SaO2% (BldA) [Mass fraction] 96 % NA Rodriguez PA-C Work Phone: [facility] 01-01-2023 10:18-0500 Systolic blood pressure 166 mm[Hg] NA Rodriguez PA-C Work Phone: [facility] 11-27-2022 09:01-0500 Diastolic blood pressure 71 mm[Hg] Mi Nurse Work Phone: [facility] 11-27-2022 09:01-0500 Heart rate 71 /min Mi Nurse Work Phone: [facility] 11-27-2022 09:01-0500 Systolic blood pressure 164 mm[Hg] Mi Nurse Work Phone: [facility] 10-02-2022 09:14-0500 Body weight 62.14 kg Santo Love MD Work Phone: [facility] 10-02-2022 09:14-0500 Diastolic blood pressure 72 mm[Hg] Santo Love MD Work Phone: [facility] 10-02-2022 09:14-0500 Heart rate 74 /min Santo Love MD Work Phone: [facility] 10-02-2022 09:14-0500 SaO2% (BldA) [Mass fraction] 99 % Santo Love MD Work Phone: [facility] 10-02-2022 09:14-0500 Systolic blood pressure 126 mm[Hg] Santo Love MD Work Phone: [facility] 07-17-2022 09:43-0400 Diastolic blood pressure 68 mm[Hg] Mi Nurse Work Phone: [facility] 07-17-2022 09:43-0400 Heart rate 74 /min Mi Nurse Work Phone: [facility] 07-17-2022 09:43-0400 Systolic blood pressure 113 mm[Hg] Mi Nurse Work Phone: [facility] 06-27-2022 11:50-0400 SaO2% (BldA) [Mass fraction] 99 % NA Rodriguez PA-C Work Phone: [facility] 06-27-2022 11:32-0400 Diastolic blood pressure 40 mm[Hg] NA Rodriguez PA-C Work Phone: [facility] 06-27-2022 11:32-0400 Systolic blood pressure 78 mm[Hg] NA Rodriguez PA-C Work Phone: [facility] 06-27-2022 11:07-0400 Body weight 60.33 kg NA Rodriguez PA-C Work Phone: [facility] 06-27-2022 11:07-0400 Heart rate 78 /min NA Rodriguez PA-C Work Phone: [facility] 06-27-2022 11:07-0400 Respiratory rate 14 /min NA Rodriguez PA-C Work Phone: [facility] Encounters Encounter Date Encounter Type Care Provider Facility Start: 08-23-2025 End: 08-23-2025 ambulatory SANTO LOVE Facility:[facility] Start: 08-19-2025 End: 08-19-2025 ambulatory SANTO LOVE Facility:[facility] Start: 08-19-2025 Patient encounter procedure SANTO LOVE [facility] Start: 07-12-2025 End: 07-12-2025 Orders Only I Philipp Castro MD Work Phone: Colorectal Surgery Comment on above: Rectal bleeding (Debi alexander Dx) Start: 07-07-2025 End: 07-07-2025 Follow-up encounter Juliana Davis APRN.PEDICURIST Work Phone: [facility] Medicine [place] Start: 07-06-2025 ambulatory [facility] Facility :[facility] Start: 07-06-2025 End: 07-06-2025 Subsequent hospital visit by physician Screen Mammo [facility] Comment on above: Encounter for screen ing mammogram for malignant neoplasm of breast [Z12.31] Start: 07-05-2025 End: 07-05-2025 Telephone encounter Santo Love MD Work Phone: [address] [place] [address] Start: 06-21-2025 End: 06-22-2025 Refill Santo Love MD Work Phone: [facility] Comment on above: Refill Request Start: 05-29-2025 End: 05-29-2025 Office outpatient visit 15 minutes Juliana Davis APRN.PEDICURIST Work Phone: [facility] Comment on above: Essential hypertensi on (Primary Dx) Start: 05-29-2025 End: 05-29-2025 [facility] Facility:[facility] Start: 05-17-2025 End: 05-17-2025 Telephone encounter Gm Calderon MD Work Phone: General Surgery Comment on above: Appointment Mass of cecum (Prima ry Dx) Start: 05-09-2025 [facility] Facility :[facility] Start: 05-09-2025 End: 05-09-2025 Subsequent hospital visit by physician Zari Sorenson MD Work Phone: Ambulatory Surgery Comment on above: Screening for colon cancer [Z12.11] Start: 05-04-2025 End: 05-04-2025 Patient encounter procedure Elizabeth Ortega APRN.PEDICURIST Work Phone: General Surgery Comment on above: Screen for colon can cer (Primary Dx); History of colon polyps Start: 05-04-2025 End: 05-04-2025 ambulatory [facility] Facility:[facility] Start: 05-03-2025 End: 05-03-2025 Follow-up encounter Raisa Maradiaga APRN.CNP Work Phone: [facility] [place] Start: 05-01-2025 End: 05-01-2025 ambulatory [facility] Facility:[facility] Start: 05-01-2025 End: 05-01-2025 Office outpatient visit 25 minutes Raisa Maradiaga APRN.PEDICURIST Work Phone: [facility] [place] Comment on above: Essential hypertensi on (Primary Dx); Type 2 diabetes mellitus without complication, with long-term current use of insulin (HCC); Mixed hyperlipidemia Start: 05-01-2025 End: 05-01-2025 [facility] Facility:[facility] Start: 03-30-2025 End: 03-30-2025 ambulatory Santo Love MD Work Phone: [facility] Start: 03-30-2025 End: 03-30-2025 Patient encounter procedure Santo Love MD Work Phone: [facility] Comment on above: Population Health Na vigation Outreach (Batsheva Ocampo ) Start: 03-07-2025 End: 03-07-2025 Office outpatient visit 15 minutes Raisa Maradiaga APRN.PEDICURIST Work Phone: [facility] [place] Comment on above: Essential (primary) hypertension; Type 2 diabetes mellitus without complication, with long-term current use of insulin (HCC) Start: 03-07-2025 End: 03-07-2025 [facility] Facility:[facility] Start: 03-03-2025 End: 03-03-2025 Refill Santo Love MD Work Phone: [facility] [place] Comment on above: Refill Request Start: 03-01-2025 End: 03-01-2025 Refill Santo Love MD Work Phone: [facility] [place] Comment on above: Refill Request Start: [...] Start: 02-07-2025 End: 02-07-2025 ambulatory SANTO LOVE Facility:[facility] Start: 02-06-2025 End: 02-06-2025 ambulatory Darrin Hope [facility] Work Phone: Pharmacy Medicine Start: 01-30-2025 End: 04-01-2025 Follow-up encounter Santo Love MD Work Phone: Family [facility] [place] Start: 01-27-2025 End: 01-27-2025 Telephone encounter Raisa Maradiaga APRN.PEDICURIST Work Phone: [facility] [place] Comment on above: Results Start: 01-26-2025 End: 01-26-2025 ambulatory [facility] Facility:[facility] Start: 01-26-2025 End: 01-26-2025 Subsequent hospital visit by physician [facility] Work Phone: Radiology Comment on above: Elevated alkaline ph osphatase level [R74.8] Start: 01-25-2025 End: 03-27-2025 Follow-up encounter Raisa Maradiaga APRN.PEDICURIST Work Phone: [facility] [place] Start: 01-25-2025 End: 01-25-2025 Telephone encounter Santo Love MD Work Phone: [facility] [place] Comment on above: Results Start: 01-24-2025 End: 03-26-2025 Follow-up encounter Santo Love MD Work Phone: Family [facility] [place] Start: 01-23-2025 End: 01-23-2025 ambulatory SANTO LOVE Facility:[facility] Start: 12-13-2024 End: 12-13-2024 ambulatory SANTO KATE Facility:[facility] Start: 12-13-2024 End: 12-13-2024 Office outpatient visit 15 minutes Raisa Maradiaga APRN.CNP Work Phone: [facility] [place] Comment on above: Essential hypertensi on (Primary Dx); Type 2 diabetes mellitus without complication, without long-term current use of insulin (HCC); Impacted cerumen of left ear Start: 12-07-2024 End: 12-07-2024 Refill Santo Love MD Work Phone: [facility] [place] Comment on above: Refill Request requesting medicatio n that is Start: 11-29-2024 End: 11-29-2024 ambulatory LEONELA BEAR Facility:[facility] Start: 11-29-2024 End: 11-29-2024 Patient encounter procedure Leonela Bear MD Work Phone: Pulmonary Medicine Comment on above: Lung nodules (Primar y Dx); Radiation fibrosis of lung (HCC); Granulomatous disease (HCC); History of breast cancer Start: 11-21-2024 End: 06-14-2025 Telephone encounter Santo Love MD Work Phone: [facility] [place] Comment on above: Results Start: 11-19-2024 End: 11-19-2024 [facility] Facility:[facility] Start: 11-19-2024 End: 11-19-2024 Patient encounter procedure Santo Love MD Work Phone: [facility] [place] Comment on above: Essential hypertensi on (Primary Dx); Mixed hyperlipidemia; Paroxysmal SVT (supraventricular tachycardia) (HCC); Persistent atrial fibrillation (HCC); Type 2 diabetes mellitus without complication, without long-term current use of insulin (HCC); Lung nodule; Radiation fibrosis of lung (HCC); Gastroesophageal reflux disease without esophagitis; Granulomatous disease (HCC); Low serum vitamin B12 Start: 10-04-2024 End: 10-04-2024 ambulatory [facility] [place] Start: 08-09-2024 End: 08-09-2024 Subsequent hospital visit by physician [facility] ([facility]) Work Phone: Cat Scan Comment on above: Pulmonary nodules [R 91.8] Start: 07-13-2024 End: 07-13-2024 Patient encounter procedure Santo Love MD Work Phone: [facility] [place] Comment on above: Essential hypertensi on (Primary Dx); Mixed hyperlipidemia; Atherosclerosis of coronary artery of [place] heart without angina pectoris, unspecified vessel or lesion type; Persistent atrial fibrillation (HCC); Lung nodule; Radiation fibrosis of lung (HCC); Gastroesophageal reflux disease without esophagitis; History of GI bleed; Type 2 diabetes mellitus without complication, without long-term current use of insulin (HCC); Iron deficiency anemia due to chronic blood loss; History of breast cancer; Osteopenia, unspecified location; Low serum vitamin B12 Start: 07-13-2024 [facility] Facility:[facility] Start: 07-13-2024 End: 07-13-2024 [facility] Facility:[facility] Start: 07-06-2024 End: 07-07-2024 Documentation procedure Mammography Coordinator [facility] Start: 07-06-2024 End: 07-07-2024 Letter encounter Mammography Coordinator [facility] Start: 07-05-2024 End: 07-05-2024 Subsequent hospital visit by physician Screen Mammo [facility] Comment on above: History of breast ca ncer [Z85.3] Start: 06-20-2024 End: 06-20-2024 Office outpatient visit 15 minutes Juliana Davis APRN.PEDICURIST Work Phone: [facility] [place] Comment on above: Essential hypertensi on (Primary Dx); Type 2 diabetes mellitus without complication, without long-term current use of insulin (HCC); Atherosclerosis of [place] coronary artery of [place] heart without angina pectoris Start: 05-12-2024 End: 05-12-2024 Office outpatient visit 25 minutes Juliana Davis APRN.PEDICURIST Work Phone: [facility] [place] Comment on above: Essential hypertensi on (Primary Dx); Type 2 diabetes mellitus without complication, without long-term current use of insulin (HCC) Start: 04-28-2024 Refill Santo Love MD Work Phone: Family [facility] [place] Comment on above: Refill Request medication clarifica [...] of breast Start: 04-12-2024 Telephone encounter Santo Love MD Work Phone: Family Medicine [place] Comment on above: Patient Update Start: 04-08-2024 [...] End: 02-18-2024 Subsequent hospital visit by physician [facility] Work Phone: Radiology Comment on above: Bilateral hydronephr osis [N13.30] Start: 02-08-2024 Telephone encounter Santo Love MD Work Phone: [facility] [place] Comment on above: Orders Start: 02-08-2024 End: 02-08-2024 Patient encounter procedure Talya Forrest Rodriguez PA-C Work Phone: [facility] [place] Comment on above: Type 2 diabetes abelardo itus without complication, without long- term current use of insulin (HCC) (Primary Dx); Iron deficiency anemia due to chronic blood loss; Pulmonary nodules Start: 02-05-2024 Telephone encounter Santo Love MD Work Phone: [facility] [place] Comment on above: Trulicity search Start: 02-04-2024 ambulatory [facility] [place] [facility] Start: 02-04-2024 Non-patient / Non-visit Dr. Ruthy Lvoe Work Phone: [facility] Start: 02-04-2024 End: 02-04-2024 Admission to same day surgery center Dr. Santo Love Work Phone: [facility] Work Phone: Start: 02-04-2024 End: 02-04-[address] Santo Love Work Phone: [facility] Work Phone: Start: 02-02-2024 End: 02-02-2024 Patient encounter procedure Zac Duncan PA-C Work Phone: Urology Comment on above: Bilateral hydronephr osis (Primary Dx); Hydroureter; Screening for genitourinary condition Start: 01-18-2024 End: 01-18-[address] Santo Love Work Phone: [facility] Work Phone: Start: 01-18-2024 End: 01-18-[address] Santo Love Work Phone: [facility] Work Phone: Start: 01-18-2024 End: 01-18-2024 ambulatory [facility] Facility:[facility] Start: 01-14-2024 Telephone encounter Santo Love MD Work Phone: Pulmonology [facility] Comment on above: Results Start: 01-12-2024 End: 01-12-2024 Subsequent hospital visit by physician [facility] ([facility]) Work Phone: Cat Scan Comment [...] Patient Outreach Santo sharma MD Work Phone: [facility] [place] Comment on above: Transition Of Care Start: 12-22-2023 Non-patient / Non-visit Dr. Ruthy Love Work Phone: [facility] Work Phone: Start: 12-21-2023 Non-patient / Non-visit Dr. Ruhty Love Work Phone: [facility] Work Phone: Start: 12-20-2023 Non-patient / Non-visit Dr. Ruthy Love Work Phone: [facility] Work Phone: Start: 12-19-2023 Non-patient / Non-visit Dr. Ruthy Love Work Phone: [facility] Start: 12-19-2023 Non-patient / Non-visit Dr. Ruthy Love Work Phone: [facility] Work Phone: Start: 12-18-2023 Telephone encounter Santo Love MD Work Phone: [facility] [place] Comment on above: Results Start: 12-18-2023 Non-patient / Non-visit Dr. Ruthy Love Work Phone: [facility] Work Phone: Start: 12-17-2023 Non-patient / Non-visit Dr. Ruthy Love Work Phone: [facility] Start: 12-17-2023 Non-patient / Non-visit Dr. Ruthy Love Work Phone: [facility] Work Phone: Start: 12-16-2023 Non-patient / Non-visit Dr. Ruthy Love Work Phone: [facility] Work Phone: Start: 12-16-2023 Non-patient / Non-visit Dr. Ruthy Love Work Phone: [facility] Start: 12-15-2023 ambulatory [place] [place] Start: 12-15-2023 Non-patient / Non-visit Dr. Ruthy Love Work Phone: [facility] Start: 12-15-2023 Non-patient / Non-visit Dr. Ruthy Love Work Phone: [facility] Work Phone: Start: 12-15-2023 ambulatory Gomez Johansen Fac ility:[facility] Start: 12-15-2023 End: 12-22-2023 Evaluation and management of inpatient Dr. Santo Love Work Phone: [facility] Work Phone: Start: 12-14-2023 Patient Outreach Eli Lyons MA [facility] Comment on above: Transition Of Care Start: 12-13-2023 Non-patient / Non-visit Dr. Ruthy Love Work Phone: [facility] Work Phone: Start: 12-12-2023 ambulatory Cullen [place] Facility :[facility] Start: 12-12-2023 Non-patient / Non-visit Dr. Ruthy Love Work Phone: [facility] Work Phone: Start: 12-12-2023 End: 12-12-2023 ambulatory Jacques Fortune Facility:[facility] Start: 12-12-2023 End: 12-12-2023 Non-patient / Non-visit Dr. Santo Love Work Phone: [facility] Work Phone: Start: 12-11-2023 Non-patient / Non-visit [facility] Rut[facility] Start: 12-11-2023 ambulatory [facility] Fac ility:[facility] Start: 12-11-2023 End: 12-13-2023 Evaluation and management of inpatient [facility] Work Phone: Start: 09-30-2023 Refill Santo Love MD Work Phone: [facility] Comment on above: Refill Request (SEE RX NOTES TO CHANGE) Start: 07-22-2023 Telephone encounter Herlinda Courtney Start: 07-02-2023 End: 07-02-2023 Subsequent hospital visit by physician Screen Mammo [facility] Comment on above: Malignant neoplasm o f female breast, unspecified estrogen receptor status, unspecified laterality, unspecified site of breast (HCC) [C50.919] Start: 06-29-2023 Refill Santo Love MD Work Phone: [facility] Comment on above: Refill Request Start: 05-08-2023 Telephone encounter Santo Love MD Work Phone: [facility] [place] Comment on above: Results Start: 05-07-2023 End: 05-07-2023 Patient encounter procedure Santo Love MD Work Phone: [facility] [place] Comment on above: Essential hypertensi on (Primary Dx); Mixed hyperlipidemia; Paroxysmal SVT (supraventricular tachycardia) (HCC); Persistent atrial fibrillation (HCC); Type 2 diabetes mellitus without complication, without long-term current use of insulin (HCC); 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 ; Osteopenia, unspecified location; Malignant neoplasm of female breast, unspecified estrogen receptor status, unspecified laterality, unspecified site of breast (HCC); Screening mammogram for breast cancer Start: 03-06-2023 Refill Santo Love MD Work Phone: [employer] Comment on above: Refill Request Start: 03-06-2023 Refill Santo Love MD Work Phone: [facility] [place] Comment on above: Med Change Request Start: 01-29-2023 End: 01-29-2023 Patient encounter procedure Santo Love MD Work Phone: [facility] [place] Comment on above: Vertigo (Primary Dx) ; Essential hypertension; Atherosclerosis of coronary artery of [place] heart without angina pectoris, unspecified vessel or [...] 01-16-2023 Refill Santo Love MD Work Phone: [facility] [place] Comment on above: Refill Request Start: 01-01-2023 End: 01-01-2023 Patient encounter procedure Talya Rodriguez PA-C Work Phone: [facility] [place] Comment on above: Paroxysmal SVT (supr aventricular tachycardia) (HCC) (Primary Dx); Persistent atrial fibrillation (HCC); Atherosclerosis of coronary artery of [place] heart without angina pectoris, unspecified vessel or lesion type; Essential hypertension; Mixed hyperlipidemia; Nonrheumatic mitral valve regurgitation; BPPV (benign paroxysmal positional vertigo), unspecified laterality; Type 2 diabetes mellitus without complication, without long-term current use of insulin (HCC) Start: 11-27-2022 Telephone encounter Santo Love MD Work Phone: [facility] [place] Comment on above: Blood Pressure Check Start: 11-27-2022 End: 11-27-2022 Nursing evaluation of patient and report Mi Nurse Work Phone: [facility] [place] Comment on above: Essential hypertensi on (Primary Dx) Start: 11-17-2022 Refill Santo Love MD Work Phone: [facility] [place] Comment on above: Refill Request Start: 11-11-2022 Telephone encounter Santo Love MD Work Phone: [facility] [place] Comment on above: Question Start: 10-03-2022 Telephone encounter Santo Love MD Work Phone: [facility] [place] Comment on above: Results Start: 10-02-2022 End: 10-02-2022 Patient encounter procedure Santo Love MD Work Phone: [facility] [place] Comment on above: Atherosclerosis of c oronary artery of [place] heart without angina pectoris, unspecified vessel or [...] unspecified laterality, unspecified site of breast (HCC); 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 ; Osteopenia, unspecified location; Hypercalcemia; Need for hepatitis C screening test Start: 09-16-2022 Refill Santo Love MD Work Phone: [facility] Comment on above: Refill Request Start: 07-17-2022 Telephone encounter Santo Love MD Work Phone: [facility] [place] Comment on above: Blood Pressure Check Start: 07-17-2022 End: 07-17-2022 Nursing evaluation of patient and report Mi Nurse Work Phone: [facility] [place] Comment on above: Essential hypertensi on (Primary Dx) Start: 06-27-2022 End: 06-27-2022 Patient encounter procedure Talya Rodriguez PA-C Work Phone: [facility] [place] Comment on above: Nonrheumatic mitral valve regurgitation (Primary Dx); Persistent atrial fibrillation (HCC); Paroxysmal SVT (supraventricular tachycardia) (HCC); 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 ; Atherosclerosis of coronary artery of [place] heart without angina pectoris, unspecified vessel or [...] 05-30-2022 Documentation procedure Mammog luis Coordinator [facility] Start: 05-30-2022 Letter encounter Mammography Coordinator [facility] Department Start: 05-30-2022 End: 05-30-2022 Subsequent hospital visit by physician Screen Mammo [facility] Comment on above: Screening breast exa mination [Z12.39] Start: 05-07-2022 End: 05-07-2022 Subsequent hospital visit by physician Bone Density [facility] Work Phone: Radiology Comment on above: Postmenopausal [Z78. 0] Start: 04-22-2022 Telephone encounter Santo Love MD Work Phone: [facility] [place] Comment on above: mammogram order Start: 03-25-2022 Telephone encounter Santo Love MD Work Phone: [facility] [place] Comment on above: Patient Update prescription assista nce Start: 03-19-2022 Telephone encounter Herlinda PAZ Navigation Comment on above: prescription assista nce Start: 02-25-2022 Telephone encounter Herlinda PAZ Navigation Comment on above: prescription assista nce Start: 02-13-2022 Refill Santo Love MD Work Phone: [facility] [place] Comment on above: Refill Request Start: 12-01-2020 End: 12-01-2020 Emergency department patient visit SANTO KATE [facility] Start: 11-29-2020 End: 11-29-2020 [facility] Start: 10-14-2018 Patient encounter DANIEL Viera ility:[facility] Start: 06-29-2018 End: 06-30-2018 [facility] Start: 02-12-2018 End: 02-12-2018 Patient encounter DANIEL MARCELO [facility] Procedures Date Procedure Procedure Detail Performing Clinician Start: 05-09-2025 Colonoscopy flx dx w/collj spec when pfrmd Santo Love MD Work Phone: Start: 05-09-2025 Colonoscopy Zari Sorenson MD Work Phone: Start: 04-12-2024 Adult depression screening assessment Juliana Davis APPLICATION SERVICES MANAGER.PEDICURIST Work Phone: Start: 02-04-[address] Santo [...] for malign ant neoplasm of colon Colonoscopy [facility] Start: 03-07-2026 Annual PCP Team Acid Blower starr Disease Visit Annual PCP Team Chronic Disease Visit [facility] Start: 02-07-2026 Annual PCP Team Acid Blower starr Disease Visit Annual PCP Team Chronic Disease Visit [facility] Start: 02-07-2026 Hepatitis B screening Urine Al bumin:Creatinine Ratio [facility] Start: 12-13-2025 Annual PCP Team Acid Blower starr Disease Visit Annual PCP Team Chronic Disease Visit [facility] Start: 12-13-2025 BP Controlled (<130/80) BP Controlle d (<130/80) [facility] Start: 11-30-2025 End: 11-30-2025 Patient encounter procedure Cat Scan Comment on above: Granulomatous diseas e (HCC) [D71]; Lung nodules [R91.8]; History of breast cancer [Z85.3] 1 yr f/u Start: 11-29-2025 BP Controlled (<130/80) BP Controlle d (<130/80) [facility] Start: 11-29-2025 End: 12-29-2025 CT Chest WO contrast CT CHEST WO IVCON Radiology Routine Granulomatous disease (HCC) Lung nodules History of breast cancer Expected: 11/29/2025, Expires: 12/29/2025 [facility] Work Phone: Comment on above: Expected: 11/29/2025 , Expires: 12/29/2025 Start: 11-19-2025 Annual PCP Team Acid Blower starr Disease Visit Annual PCP Team Chronic Disease Visit [facility] Start: 11-19-2025 Hepatitis B screening Urine Al bumin:Creatinine Ratio [facility] Start: 11-19-2025 Hepatitis B surface antibody level LDL Cholesterol [facility] Start: 08-19-2025 End: 08-19-2025 Patient encounter procedure 08/19/2025 10:00 AM EDT Office Visit [facility] [place] [address] [place] [address] Santo Love MD [address] [place] [id number] wellness [facility] [place] Comment on above: wellness Start: 08-03-2025 End: 11-02-2025 Hemoglobin A1c in Blood HEMOGLOBIN A1C Lab Routine Type 2 diabetes mellitus without complication, with long-term current use of insulin (HCC) Expected: 08/03/2025, Expires: 11/02/2025 [facility] Work Phone: Comment on above: Expected: 08/03/2025 , Expires: 11/02/2025 Start: 08-01-2025 Hemoglobin A1c measurement HbA1C [facility] Start: 07-13-2025 Annual PCP Team Acid Blower starr Disease Visit Annual PCP Team Chronic Disease Visit [facility] Start: 07-13-2025 BP Controlled (<130/80) BP Controlle d (<130/80) [facility] Start: 07-13-2025 Covid-19 Vaccine () Covid-19 Vaccine () [facility] Comment on above: Postponed from 07/03 (Declined at this time) Start: 07-13-2025 Covid-19 Vaccine () Covid-19 Vaccine () [facility] Comment on above: Postponed from 07/03 (Declined at this time) Start: 07-06-2025 End: 07-06-2025 Patient encounter procedure 07/06/2025 10:10 AM EDT Appointment Mammogram [address] [place], [place] [id number] screening Mammogram Mammogram Comment on above: screening Mammogram Start: 07-03-2025 Influenza vaccination [facility] Start: 06-28-2025 End: 06-28-2025 Patient encounter procedure 06/28/2025 2:00 PM EDT Office Visit Colorectal Surgery [address] [address] Geovanna Castro MD [address] [place], [place] [id number] Mass of cecum [K63.89] Colorectal Surgery Comment on above: Mass of cecum [K63.8 9] Start: 06-20-2025 BP Controlled (<130/80) BP Controlle d (<130/80) [facility] Start: 05-19-2025 Hemoglobin A1c measurement HbA1C [facility] Start: 05-16-2025 End: 05-16-2025 Patient encounter procedure 05/16/2025 10:40 AM EDT Office Visit [facility] [place] [address] [place], [place] [id number] Raisa Maradiaga APRN.PEDICURIST [address] [place] [address] 2 week BP check [facility] [place] Comment on above: 2 week BP check Start: 05-09-2025 End: 08-08-2025 Hemoglobin A1c in Blood HEMOGLOBIN A1C Lab Routine Type 2 diabetes mellitus without complication, with long-term current use of insulin (HCC) Expected: 05/09/2025, Expires: 08/08/2025 [facility] Work Phone: Comment on above: Expected: 05/09/2025 , Expires: 08/08/2025 Start: 05-09-2025 End: 05-09-2025 Patient encounter procedure Ambulatory Surgery Comment on above: colonoscopy Colon Was seen by Ruben orona in office Start: 05-08-2025 End: 05-08-2025 Patient encounter procedure 05/08/2025 11:00 AM EDT Office Visit [facility] [place] [address] [place] [address] Raisa Maradiaga APRN.PEDICURIST [address] [place] [address] 2 month BP check [facility] [place] Comment on above: 2 month BP check Start: 05-04-2025 End: 05-04-2025 Patient encounter procedure 05/04/2025 10:30 AM EDT Office Visit General Surgery [address] [place] [address] Elizabeth Ortega, TORY.PEDICURIST [address] [place] [address] CONSULT: Colonoscopy. Last [facility]/17/2021. [facility] General Surgery Comment on above: CONSULT: Colonoscopy . Last 09/17/2021. [facility] Start: 05-01-2025 Influenza vaccination Influenza Vacc ine (#1) [facility] Comment on above: Postponed from 07/03 (Declined at this time) Start: 04-25-2025 Hemoglobin A1c measurement HbA1C [facility] Start: 04-12-2025 Annual PCP Team Acid Blower starr Disease Visit Annual PCP Team Chronic Disease Visit [facility] Start: 04-12-2025 Anxiety Screening Anxiety Screening [facility] Start: 04-12-2025 Covid-19 Vaccine () Covid-19 Vaccine () [facility] Comment on above: Postponed from 07/03 (Declined at this time) Start: 04-12-2025 Depression Screening Depression Scre ening [facility] Start: 04-12-2025 Diabetic foot examination Diabetic F oot Exam [facility] Start: 04-12-2025 Shingrix Vaccine (2 of 3) Bagley grix Vaccine (2 of 3) [facility] Comment on above: Postponed from 08/08 (Declined at this time) Start: 04-12-2025 Urine microalbumin profile DTaP,Tdap,Td Vaccine (2 - Td or Tdap) [facility] Comment on above: Postponed from 04/13 (Declined at this time) Start: 04-08-2025 Annual PCP Team Acid Blower starr Disease Visit Annual PCP Team Chronic Disease Visit [facility] Start: 04-07-2025 Hepatitis B surface antibody level LDL Cholesterol [facility] Start: 03-07-2025 End: 03-07-2025 Patient encounter procedure 03/07/2025 11:00 AM EDT Office Visit Family [place]e [place] [address] [facility] [place], [place] [phone] Raisa Maradiaga, TORY.PEDICURIST [address] [place] [address] 1 month BP check Family Kalee [place] Comment on above: 1 month BP check Start: 02-10-2025 End: 06-12-2025 Hemoglobin A1c in Blood HEMOGLOBIN A1C Lab Routine Type 2 diabetes mellitus without complication, without long-term current use of insulin (HCC) Expected: 02/10/2025, Expires: 06/12/2025 [facility] Work Phone: Comment on above: Expected: 02/10/2025 , Expires: 06/12/2025 Start: 02-07-2025 Annual PCP Team Acid Blower strar Disease Visit Annual PCP Team Chronic Disease Visit [facility] Start: 02-07-2025 BP Controlled (<130/80) BP Controlle d (<130/80) [facility] Start: 02-07-2025 End: 02-07-2025 Patient encounter procedure 02/07/2025 11:00 AM EDT Office Visit Family Kalee Ocampo [address] [place], [place] [address] Raisa Maradiaga, APPLICATION SERVICES MANAGER.PEDICURIST [address] [place], [place] [phone] 3 month follow up Family Kalee [place]campo Comment on above: 3 month follow up Start: 01-26-2025 End: 01-26-2025 Patient encounter procedure 01/26/2025 1:00 PM EDT Appointment Radiology [address] [place], [place] [phone] Elevated alkaline phosphatase level [R74.8] Radiology Comment on above: Elevated alkaline ph osphatase level [R74.8] Start: 01-05-2025 Annual PCP Team Acid Blower starr Disease Visit Annual PCP Team Chronic Disease Visit [facility] Start: 01-05-2025 RSV Vaccine (1 - 1-d ose 60+ series) RSV Vaccine (1 - 1-dose 60+ series) [facility] Comment on above: Postponed from 03/31 (Declined at this time) Start: 01-05-2025 RSV Vaccine (1 - 1-d ose 75+ series) RSV Vaccine (1 - 1-dose 75+ series) [facility] Comment on above: Postponed from 03/31 (Declined at this time) Start: 12-21-2024 Glaucoma screening Dilated Retinal E xam [facility] Start: 12-13-2024 End: 12-13-2024 Patient encounter procedure [facility] [place] Comment on above: follow up 4 week BP follow up Start: 11-29-2024 End: 11-29-2024 Patient encounter procedure 11/29/2024 11:00 AM EST Office Visit Pulmonary Medicine [address] [place], [place] [phone] Leonela Bear MD [address] [place] [address] Lung nodule [R91.1]; 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]; Granulomatous disease (HCC) [D71] Pulmonary Medicine Comment on above: Lung nodule [R91.1]; 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]; Granulomatous disease (HCC) [D71] Start: 11-19-2024 End: 02-18-2025 CBC W Auto Differential panel - Blood [facility] Comment on above: Expected: 11/19/2024 , Expires: 02/18/2025 Start: 11-19-2024 End: 02-18-2025 Cobalamin (Vitamin B12) [Mass/volume] in Serum or Plasma [facility] Comment on above: Expected: 11/19/2024 , Expires: 02/18/2025 Start: 11-19-2024 End: 02-18-2025 Comprehensive metabolic 2000 panel - Serum or Plasma [facility] Comment on above: Expected: 11/19/2024 , Expires: 02/18/2025 Start: 11-19-2024 End: 02-18-2025 Hemoglobin A1c in Blood [facility] Work Phone: Comment on above: Expected: 11/19/2024 , Expires: 02/18/2025 Start: 11-19-2024 End: 02-18-2025 Lipid 1996 panel - Serum or Plasma [facility] Comment on above: Expected: 11/19/2024 , Expires: 02/18/2025 Start: 11-19-2024 End: 02-18-2025 Microalbumin/Creatinine [Mass Ratio] in Urine [facility] Comment on above: Expected: 11/19/2024 , Expires: 02/18/2025 Start: 11-12-2024 Annual PCP Team Acid Blower starr Disease Visit Annual PCP Team Chronic Disease Visit [facility] Start: 11-12-2024 BP Controlled (<130/80) BP Controlle d (<130/80) [facility] Start: 11-12-2024 Hepatitis B screening Urine Al bumin:Creatinine Ratio [facility] Start: 11-03-2024 Hepatitis B surface antibody level LDL Cholesterol [facility] Start: 11-02-2024 Medicare Advantage A nnual Wellness Visit Medicare Advantage Annual Wellness Visit [facility] Start: 09-17-2024 Colonoscopy COLONOSCOPY [facility] Start: 09-17-2024 Screening for malign ant neoplasm of colon Colonoscopy [facility] Start: 08-26-2024 End: 08-26-2024 Patient encounter procedure 08/26/2024 11:40 AM EDT Office Visit Family Kalee Ocampo [address] [place] [address] Santo Love MD [address] [facility] [place] [phone] 6 week follow up Family [place]e [place] Comment on above: 6 week follow up Start: 08-24-2024 End: 08-24-2024 Patient encounter procedure 08/24/2024 9:30 AM EDT Office Visit Pulmonary Medicine [address] [place] [phone] Genet Zavaleta PA-C [address] [facility] [address] F/U LUNG NODULES Pulmonary Medicine Comment on above: F/U LUNG NODULES Start: 08-12-2024 End: 11-11-2024 CBC panel - Blood by Automated count COMPLETE BLOOD COUNT Lab Routine Iron deficiency anemia due to chronic blood loss Expected: 08/12/2024, Expires: 11/11/2024 [facility] Comment on above: Expected: 08/12/2024 , Expires: 11/11/2024 Start: 08-12-2024 End: 11-11-2024 Cobalamin (Vitamin B12) [Mass/volume] in Serum or Plasma VITAMIN B12 Lab Routine Low serum vitamin B12 Expected: 08/12/2024, Expires: 11/11/2024 [facility] Comment on above: Expected: 08/12/2024 , Expires: 11/11/2024 Start: 08-12-2024 End: 11-11-2024 Comprehensive metabolic 2000 panel - Serum or Plasma COMPREHENSIVE METABOLIC PANEL Lab Routine Essential hypertension Expected: 08/12/2024, Expires: 11/11/2024 [facility] Comment on above: Expected: 08/12/2024 , Expires: 11/11/2024 Start: 08-12-2024 End: 11-11-2024 Hemoglobin A1c in Blood HEMOGLOBIN A1C Lab Routine Type 2 diabetes mellitus without complication, without long-term current use of insulin (HCC) Expected: 08/12/2024, Expires: 11/11/2024 [facility] Work Phone: Comment on above: Expected: 08/12/2024 , Expires: 11/11/2024 Start: 08-12-2024 Hemoglobin A1c measurement HbA1C [facility] Start: 08-12-2024 End: 11-11-2024 Lipid 1996 panel - Serum or Plasma LIPID PANEL BASIC Lab Routine Essential hypertension Expected: 08/12/2024, Expires: 11/11/2024 [facility] Comment on above: Expected: 08/12/2024 , Expires: 11/11/2024 Start: 08-09-2024 End: 03-09-2025 CT Chest WO contrast [facility] Work Phone: Comment on above: Expected: 08/09/2024 , Expires: 03/09/2025 Start: 08-09-2024 End: 08-09-2024 Patient encounter procedure 08/09/2024 10:00 AM EDT Appointment Cat Scan [address] [place] [address] 6 mo follow up pulmonary nodules Cat Scan Comment on above: 6 mo follow up pulmo nary nodules Start: 07-13-2024 End: 10-12-2024 Hemoglobin A1c in Blood HEMOGLOBIN A1C Lab Routine Type 2 diabetes mellitus without complication, without long-term current use of insulin (HCC) Expected: 07/13/2024, Expires: 10/12/2024 [facility] Comment on above: Expected: 07/13/2024 , Expires: 10/12/2024 Start: 07-13-2024 End: 07-13-2024 Patient encounter procedure 07/13/2024 11:20 AM EDT Office Visit [facility] [place] [address] [place] [address] Santo Love MD [address] [place] [address] 3 month follow up [facility] [place] Comment on above: 3 month follow up Start: 07-08-2024 Hemoglobin A1c measurement HbA1C [facility] Start: 07-05-2024 End: 07-05-2024 Patient encounter procedure 07/05/2024 9:30 AM EDT Appointment Mammogram [address] [place] [address] GENEVA SCREENING Mammogram Comment on above: GENEVA SCREENING Start: 07-03-2024 Covid-19 Vaccine ( season) Covid-19 Vaccine () [facility] Start: 07-03-2024 Influenza vaccination C [facility] Start: 06-20-2024 End: 06-20-2024 Patient encounter procedure 06/20/2024 11:00 AM EDT Office Visit [facility] [place] [address] [place] [id number] Juliana Davis APRN.PEDICURIST [address] [place] [address] 1 month follow up increase in lisinopril and blood sugars Family [facility] [place] Comment on above: 1 month follow up in crease in lisinopril and blood sugars Start: 05-14-2024 Glaucoma screening Dilated Retinal E xam [facility] Start: 05-14-2024 Hepatitis C antibody , confirmatory test DILATED RETINAL EXAM [facility] Start: 05-12-2024 Hemoglobin A1c measurement HbA1C [facility] Start: 05-12-2024 End: 05-12-2024 Patient encounter procedure 05/12/2024 10:00 AM EDT Office Visit [facility] [place] [address] [facility] [place] [id number] Juliana Davis APRN.CHLOROBUTADIENE SCRUBBER OPERATOR [address] [place] [address] BP check [facility] [place] Comment on above: BP check Start: 05-07-2024 3 comp foot exam completed DIABETIC FOOT EXAM [facility] Start: 05-07-2024 ANNUAL PCP TEAM CANCER PROGRAM DIRECTOR STARR DISEASE VISIT ANNUAL PCP TEAM CHRONIC DISEASE VISIT [facility] Start: 05-07-2024 BP CONTROLLED (<130/80) BP CONTROLLE D (<130/80) [facility] Start: 05-07-2024 Diabetic foot examination Diabetic F oot Exam [facility] Start: 05-01-2024 Influenza vaccination Influenza Vacc ine (#1) [facility] Comment on above: Postponed from 07/03 (Declined at this time) Start: 04-12-2024 End: 07-12-2024 Calcium.ionized [Moles/volume] in Blood CALCIUM, IONIZED Lab Routine Hypercalcemia Expected: 04/12/2024, Expires: 07/12/2024 [facility] Work Phone: Comment on above: Expected: 04/12/2024 , Expires: 07/12/2024 Start: 04-12-2024 End: 07-12-2024 CBC W Auto Differential panel - Blood COMPLETE BLOOD COUNT AND DIFFERENTIAL Lab Routine Decreased iron stores Expected: 04/12/2024, Expires: 07/12/2024 [facility] Comment on above: Expected: 04/12/2024 , Expires: 07/12/2024 Start: 04-12-2024 End: 07-12-2024 Iron and Iron binding capacity panel - Serum or Plasma IRON AND TIBC Lab Routine Decreased iron stores Expected: 04/12/2024, Expires: 07/12/2024 [facility] Comment on above: Expected: 04/12/2024 , Expires: 07/12/2024 Start: 04-08-2024 End: 04-08-2024 Patient encounter procedure 04/08/2024 9:20 AM EDT Office Visit [facility] [place] [address] [place] [phone] Santo Love MD [address] [place] [id number] 3 month follow up [facility] [place] Comment on above: 3 month follow up Start: 04-02-2024 End: 07-02-2024 CBC W Auto Differential panel - Blood CBC + DIFF Lab Routine Type 2 diabetes mellitus without complication, without long-term current use of insulin ([facility]) Iron deficiency anemia due to chronic blood loss Expected: 04/02/2024, Expires: 07/02/2024 [facility] Work Phone: Comment on above: Expected: 04/02/2024 , Expires: 07/02/2024 Start: 04-02-2024 End: 07-02-2024 Comprehensive metabolic 2000 panel - Serum or Plasma COMP METABOLIC PANEL Lab Routine Type 2 diabetes mellitus without complication, without long-term current use of insulin (HCC) Expected: 04/02/2024, Expires: 07/02/2024 [facility] Work Phone: Comment on above: Expected: 04/02/2024 , Expires: 07/02/2024 Start: 04-02-2024 End: 07-02-2024 Hemoglobin A1c in Blood HGB A1C Lab Routine Type 2 diabetes mellitus without complication, without long-term current use of insulin (HCC) Expected: 04/02/2024, Expires: 07/02/2024 [facility] Work Phone: Comment on above: Expected: 04/02/2024 , Expires: 07/02/2024 Start: 02-04-2024 Patient discharge [facility] Start: 02-02-2024 End: 03-03-2025 US Kidney - bilateral and Urinary bladder US KIDNEY/BLADDER Radiology Routine Bilateral hydronephrosis Hydroureter Expected: 02/02/2024 (Approximate), Expires: 03/03/2025 [facility] Work Phone: Comment on above: Expected: 02/02/2024 (Approximate), Expires: 03/03/2025 Start: 01-30-2024 ANNUAL PCP TEAM CANCER PROGRAM DIRECTOR STARR DISEASE VISIT ANNUAL PCP TEAM CHRONIC DISEASE VISIT [facility] Start: 01-30-2024 BP CONTROLLED (<130/80) BP CONTROLLE D (<130/80) [facility] Start: 01-30-2024 COVID-19 VACCINE (#1) COVID-19 VACCI NE (#1) [facility] Comment on above: Postponed from 10/01 (Declined at this time) Start: 01-30-2024 SHINGRIX VACCINE (2 of 3) BAGLEY GRIX VACCINE (2 of 3) [facility] Comment on above: Postponed from 08/08 (Declined at this time) Start: 01-30-2024 Urine microalbumin profile [facility] Comment on above: Postponed from 04/13 (Declined at this time) Start: 01-07-2024 End: 04-07-2024 CBC W Auto Differential panel - Blood CBC + DIFF Lab Routine Iron deficiency anemia due to chronic blood loss Expected: 01/07/2024, Expires: 04/07/2024 [facility] Work Phone: Comment on above: Expected: 01/07/2024 , Expires: 04/07/2024 Start: 01-07-2024 End: 04-07-2024 Iron and Iron binding capacity panel - Serum or Plasma IRON + TIBC Lab Routine Iron deficiency anemia due to chronic blood loss Expected: 01/07/2024, Expires: 04/07/2024 [facility] Work Phone: Comment on above: Expected: 01/07/2024 , Expires: 04/07/2024 Start: 01-02-2024 ANNUAL PCP TEAM CANCER PROGRAM DIRECTOR STARR DISEASE VISIT ANNUAL PCP TEAM CHRONIC DISEASE VISIT [facility] Start: 12-22-2023 Patient discharge [facility] Start: 12-20-2023 [facility] Start: 12-20-2023 [facility] Start: 12-19-2023 Referral to occupati onal therapist [facility] Start: 12-19-2023 Referral to service [facility] Start: 12-19-2023 [facility] Start: 12-18-2023 [facility] Start: 12-17-2023 Administration of bl ood product [facility] Start: 12-17-2023 Consultation [facility] Start: 12-17-2023 [facility] Start: 12-16-2023 Introduction of urin angel luis catheter [facility] Start: 12-16-2023 Administration of bl ood product [facility] Start: 12-15-2023 Application of intermittent pneumatic compression device [facility] Start: 12-15-2023 Care regimes management [facility] Start: 12-15-2023 Notification of physician [facility] Start: 12-15-2023 [facility] Start: 12-15-2023 Following clinical pathway protocol [facility] Start: 12-15-2023 Ambulation without limitation [facility] Start: 12-15-2023 Assessment of risk o f venous thromboembolism [facility] Start: 12-15-2023 Insertion of cathete r into peripheral vein [facility] Start: 12-15-2023 Providing care accor ding to standard [facility] Start: 12-15-2023 Referral to gastroenterology service [facility] Start: 12-15-2023 [facility] Start: 12-15-2023 Admission procedure [facility] Start: 12-15-2023 Verification routine [facility] Start: 12-15-2023 Hospital admission, emergency, from emergency room, medical nature [facility] Start: 12-15-2023 Administration of bl ood product [facility] Start: 02-13-2024 Leukocyte reduced re d blood cells [facility] Start: 12-15-2023 End: 12-16-2023 [facility] Start: 12-15-2023 Patient referral to dietitian [facility] Start: 12-15-2023 [facility] Start: 12-13-2023 Patient discharge [facility] Start: 12-13-2023 [facility] Start: 12-12-2023 Blood chemistry [facility] Start: 12-12-2023 Complete blood count [facility] Start: 12-12-2023 Vitamin B12 measurement [facility] Start: 12-11-2023 Following clinical pathway protocol [facility] Start: 12-11-2023 Application of intermittent pneumatic compression device [facility] Start: 12-11-2023 Ambulation without limitation [facility] Start: 12-11-2023 Assessment of risk o f venous thromboembolism [facility] Start: 12-11-2023 Care regimes management [facility] Start: 12-11-2023 Incentive spirometry [facility] Start: 12-11-2023 Insertion of cathete r into peripheral vein [facility] Start: 12-11-2023 Notification of physician [facility] Start: 12-11-2023 Oxygen therapy [facility] Start: 12-11-2023 Providing care accor ding to standard [facility] Start: 12-11-2023 Referral to gastroenterology service [facility] Start: 12-11-2023 Referral to occupati onal therapist [facility] Start: 12-11-2023 Referral to service [facility] Start: 12-11-2023 End: 12-12-2023 [facility] Start: 12-11-2023 Verification routine [facility] Start: 12-11-2023 Admission procedure [facility] Start: 12-11-2023 [facility] Start: 11-02-2023 Behavioral Health Screening Behavioral Health Screening [facility] Start: 11-02-2023 Depression Assessment Depression Ass essment [facility] Start: 10-02-2023 ANNUAL PCP TEAM CANCER PROGRAM DIRECTOR STARR DISEASE VISIT ANNUAL PCP TEAM CHRONIC DISEASE VISIT [facility] Start: 10-02-2023 BP CONTROLLED (<130/80) BP CONTROLLE D (<130/80) [facility] Start: 10-02-2023 Hepatitis B surface antibody level LDL CHOLESTEROL [facility] Start: 08-08-2023 End: 10-08-2023 Hemoglobin A1c in Blood HGB A1C Lab Routine Type 2 diabetes mellitus without complication, without long-term current use of insulin (HCC) Expected: 08/08/2023, Expires: 10/08/2023 [facility] Work Phone: Comment on above: Expected: 08/08/2023 , Expires: 10/08/2023 Start: 08-07-2023 Hemoglobin A1c/Hemoglobin.total in Blood HBA1C [facility] Start: 08-01-2023 Hemoglobin A1c/Hemoglobin.total in Blood HBA1C [facility] Start: 07-17-2023 BP CONTROLLED (<130/80) BP CONTROLLE D (<130/80) [facility] Start: 07-03-2023 Covid-19 Vaccine () Covid-19 Vaccine () [facility] Start: 07-03-2023 Influenza vaccination [facility] Start: 06-27-2023 Adult depression screening assessment DEPRESSION SCREENING [facility] Start: 06-27-2023 ANNUAL PCP TEAM CANCER PROGRAM DIRECTOR STARR DISEASE VISIT ANNUAL PCP TEAM CHRONIC DISEASE VISIT [facility] Start: 06-27-2023 BP CONTROLLED (<130/80) BP CONTROLLE D (<130/80) [facility] Start: 06-27-2023 Hepatitis B screening URINE AL BUMIN:CREATININE RATIO [facility] Start: 06-27-2023 Hepatitis C antibody , confirmatory test DILATED RETINAL EXAM [facility] Start: 05-07-2023 End: 07-07-2023 Basic metabolic 2000 panel - Serum or Plasma [facility] Work Phone: Comment on above: Expected: 05/07/2023 , Expires: 07/07/2023 Start: 05-07-2023 End: 07-07-2023 Hemoglobin A1c in Blood [facility] Work Phone: Comment on above: Expected: 05/07/2023 , Expires: 07/07/2023 Start: 05-01-2023 Influenza vaccination INFLUENZA (#1) [facility] Comment on above: Postponed from 07/03 (Declined at this time) Start: 04-02-2023 Hemoglobin A1c/Hemoglobin.total in Blood HBA1C [facility] Start: 12-28-2022 Hemoglobin A1c/Hemoglobin.total in Blood HBA1C [facility] Start: 12-18-2022 3 comp foot exam completed DIABETIC FOOT EXAM [facility] Start: 12-18-2022 ANNUAL PCP TEAM CANCER PROGRAM DIRECTOR STARR DISEASE VISIT ANNUAL PCP TEAM CHRONIC DISEASE VISIT [facility] Start: 12-18-2022 BP CONTROLLED (<130/80) BP CONTROLLE D (<130/80) [facility] Start: 12-18-2022 Hepatitis B screening URINE AL BUMIN:CREATININE RATIO [facility] Start: 11-02-2022 ADVANCE DIRECTIVE DISCUSSION ADVANCE DIRECTIVE DISCUSSION [facility] Start: 11-02-2022 DEPRESSION ASSESSMENT DEPRESSION ASS ESSMENT [facility] Start: 10-03-2022 End: 12-03-2022 25-hydroxyvitamin D3 [Mass/volume] in Serum or Plasma VITAMIN D 25 HYDROXY Lab Routine Hypercalcemia Expected: 10/03/2022, Expires: 12/03/2022 [facility] Work Phone: Comment on above: Expected: 10/03/2022 , Expires: 12/03/2022 Start: 10-03-2022 End: 12-03-2022 Basic metabolic 2000 panel - Serum or Plasma BASIC METABOLIC PNL Lab Routine Hypercalcemia Expected: 10/03/2022, Expires: 12/03/2022 [facility] Work Phone: Comment on above: Expected: 10/03/2022 , Expires: 12/03/2022 Start: 10-03-2022 End: 12-03-2022 Calcium.ionized [Moles/volume] in Blood CALCIUM IONIZED BLOOD Lab Routine Hypercalcemia Expected: 10/03/2022, Expires: 12/03/2022 [facility] Work Phone: Comment on above: Expected: 10/03/2022 , Expires: 12/03/2022 Start: 10-02-2022 End: 12-02-2022 Calcium.ionized [Moles/volume] in Blood [facility] Work Phone: Comment on above: Expected: 10/02/2022 , Expires: 12/02/2022 Start: 10-02-2022 End: 12-02-2022 CBC W Auto Differential panel - Blood [facility] Work Phone: Comment on above: Expected: 10/02/2022 , Expires: 12/02/2022 Start: 10-02-2022 End: 12-02-2022 Comprehensive metabolic 2000 panel - Serum or Plasma [facility] Work Phone: Comment on above: Expected: 10/02/2022 , Expires: 12/02/2022 Start: 10-02-2022 End: 12-02-2022 Hemoglobin A1c in Blood [facility] Work Phone: Comment on above: Expected: 10/02/2022 , Expires: 12/02/2022 Start: 10-02-2022 End: 12-02-2022 Hepatitis C virus Ab [Presence] in Serum [facility] Work Phone: Comment on above: Expected: 10/02/2022 , Expires: 12/02/2022 Start: 10-02-2022 End: 12-02-2022 LIPID PANEL, NONFASTING [facility] Work Phone: Comment on above: Expected: 10/02/2022 , Expires: 12/02/2022 Start: 10-02-2022 End: 12-02-2022 Parathyrin.intact [Mass/volume] in Serum or Plasma [facility] Work Phone: Comment on above: Expected: 10/02/2022 , Expires: 12/02/2022 Start: 07-03-2022 Influenza vaccination C [facility] Start: 06-27-2022 End: 08-27-2022 Comprehensive metabolic 2000 panel - Serum or Plasma COMP METABOLIC PANEL Lab Routine Persistent atrial fibrillation (HCC) Essential hypertension Mixed hyperlipidemia Serum calcium elevated Expected: 06/27/2022, Expires: 08/27/2022 [facility] Work Phone: Comment on above: Expected: 06/27/2022 , Expires: 08/27/2022 Start: 06-27-2022 End: 08-27-2022 Hemoglobin A1c in Blood [facility] Work Phone: Comment on above: Expected: 06/27/2022 , Expires: 08/27/2022 Start: 06-17-2022 COVID-19 VACCINE (#1) COVID-19 VACCI NE (#1) [facility] Comment on above: Postponed from 03/31 (Declined at this time) Postponed from 10/01 (Declined at this time) Start: 06-17-2022 COVID-19 VACCINE (1) COVID-19 VACCIN E (1) [facility] Comment on above: Postponed from 03/31 (Declined at this time) Start: 06-17-2022 Hemoglobin A1c/Hemoglobin.total in Blood HBA1C [facility] Start: 06-15-2022 Hepatitis B surface antibody level LDL CHOLESTEROL [facility] Start: 06-13-2022 Hepatitis C antibody , confirmatory test DILATED RETINAL EXAM [facility] Start: 11-02-2021 ADVANCE DIRECTIVE DISCUSSION ADVANCE DIRECTIVE DISCUSSION [facility] Start: 11-02-2021 DEPRESSION ASSESSMENT DEPRESSION ASS ESSMENT [facility] Start: 09-13-2019 Adult depression screening assessment DEPRESSION SCREENING [facility] Start: 2019 RSV Vaccine (1 - 1-d ose 75+ series) RSV Vaccine (1 - 1-dose 75+ series) [facility] Start: 04-13-2017 Urine microalbumin profile [facility] Start: 09-18-2016 PNEUMOCOCCAL: 65+ (3 - PPSV23 or PCV20) PNEUMOCOCCAL: 65+ (3 - PPSV23 or PCV20) [facility] Start: 08-08-2011 SHINGRIX VACCINE (1 of 2) BAGLEY GRIX VACCINE (1 of 2) [facility] Start: 08-08-2011 SHINGRIX VACCINE (2 of 3) BAGLEY GRIX VACCINE (2 of 3) [facility] Start: 2004 Hepatitis B Vaccine (1 of 3 - Risk 3-dose series) Hepatitis B Vaccine (1 of 3 - Risk 3-dose series) [facility] Start: 2004 RSV Vaccine (1 - 1-d ose 60+ series) RSV Vaccine (1 - 1-dose 60+ series) [facility] Start: 1962 BP CONTROLLED (<130/80) BP CONTROLLE D (<130/80) [facility] Start: 1962 HEPATITIS C SCREENING HEPATITIS C SC GET [facility] Start: 1950 PNEUMOCOCCAL: 65+ (1 - PCV) PNEUMOCOCCAL: 65+ (1 - PCV) [facility] Start: 1944 COVID-19 VACCINE (#1) COVID-19 VACCI NE (#1) [facility] Anion gap measurement [facility] BUN/Creatinine ratio [facility] Calcium [Mass/volume ] in Serum or Plasma [facility] Carbon dioxide, tota l [Moles/volume] in Serum or Plasma [facility] Chloride [Moles/volu me] in Serum or Plasma [facility] Creatinine [Moles/vo lume] in Serum or Plasma [facility] End: 01-16-2025 CT Chest WO contrast CT CHEST WO IVCON Radiology Routine Lung nodules Malignant neoplasm of female breast, unspecified estrogen receptor status, unspecified laterality, unspecified site of breast (HCC) 1 Occurrences starting 12/18/2023 until 01/16/2025 [facility] Work Phone: Comment on above: 1 Occurrences starti ng 12/18/2023 until 01/16/2025 CT Chest WO contrast CT CHEST WO IVCON Radiology Routine Lung nodules Malignant neoplasm of female breast, unspecified estrogen receptor status, unspecified laterality, unspecified site of breast (HCC) 01/12/2024 11:12 AM EDT [facility] Work Phone: End: 08-04-2026 DBT Breast - bilateral screening GENEVA SCREENING W SANCHEZ Radiology Routine Encounter for screening mammogram for malignant neoplasm of breast 1 Occurrences starting 07/05/2025 until 08/04/2026 [facility] Work Phone: Comment on above: 1 Occurrences starti ng 07/05/2025 until 08/04/2026 DBT Breast - bilater al screening GENEVA SCREENING W SANCHEZ Radiology Routine Encounter for screening mammogram for malignant neoplasm of breast 07/06/2025 10:27 AM EDT [facility] Work Phone: End: 06-27-2023 ECG COMPLETE ECG COMPLETE ECG Routine Persistent atrial fibrillation (HCC) Other specified hypotension 1 Occurrences starting 06/27/2022 until 06/27/2023 [facility] Work Phone: Comment on above: 1 Occurrences starti ng 06/27/2022 until 06/27/2023 Erythrocyte mean corpuscular volume determination [facility] End: 07-12-2026 Flexible sigmoidoscopy study COLONOSCOPY DIAGNOSTIC Endoscopy Routine Rectal bleeding 1 Occurrences starting 07/12/2025 until 07/12/2026 [facility] Work Phone: Comment on above: 1 Occurrences starti ng 07/12/2025 until 07/12/2026 Glucose [Mass/volume ] in Serum or Plasma [facility] Hematocrit [Volume Fraction] of Blood [facility] Hemoglobin [Mass/vol ume] in Blood [facility] Leukocytes [#/volume ] in Blood [facility] End: 06-05-2024 GENEVA SCREENING GENEVA SCREENING Radiology Routine Malignant neoplasm of female breast, unspecified estrogen receptor status, unspecified laterality, unspecified site of breast (HCC) 1 Occurrences starting 05/07/2023 until 06/05/2024 [facility] Work Phone: Comment on above: 1 Occurrences starti ng 05/07/2023 until 06/05/2024 Mean corpuscular hemoglobin concentration determination [facility] Mean corpuscular hemoglobin determination [facility] Measurement of renal function [facility] End: 05-12-2025 MG Breast Screening GENEVA SCREENING Radiology Routine History of breast cancer Encounter for screening mammogram for malignant neoplasm of breast 1 Occurrences starting 04/12/2024 until 05/12/2025 [facility] Comment on above: 1 Occurrences starti ng 04/12/2024 until 05/12/2025 MG Breast Screening GENEVA SCREENIN G Radiology Routine History of breast cancer Encounter for screening mammogram for malignant neoplasm of breast 07/05/2024 9:40 AM EDT [facility] Work Phone: Patient referral [facility] Work Phone: Platelets [#/volume] in Blood [facility] POST VOID RESIDUAL POST VOID RES IDUAL Procedures Routine Bilateral hydronephrosis Hydroureter Screening for genitourinary condition Ordered: 02/02/2024 [facility] Work Phone: Comment on above: Ordered: 02/02/2024 Potassium [Moles/vol ume] in Serum or Plasma [facility] Red blood cell count [facility] Red cell distributio n width determination [facility] Removal impacted cer umen instrumentation unilat REMOVAL OF IMPACTED CERUMEN - INSTRUMENTATION Procedures Routine Impacted cerumen of left ear Ordered: 12/13/2024 [facility] Comment on above: Ordered: 12/13/2024 End: 03-30-2026 Screening colonoscopy COLONOSCOPY SCREENING Endoscopy Routine Screening for colon cancer 1 Occurrences starting 03/30/2025 until 03/30/2026 [facility] Work Phone: Comment on above: 1 Occurrences starti ng 03/30/2025 until 03/30/2026 End: 05-22-2023 Screening mammography bi 2-view breast inc cad GENEVA SCREENING Radiology Routine Screening breast examination 1 Occurrences starting 04/22/2022 until 05/22/2023 [facility] Work Phone: Comment on above: 1 Occurrences starti ng 04/22/2022 until 05/22/2023 Sodium [Moles/volume ] in Serum or Plasma [facility] Tissue Pathology bio psy report [facility] Work Phone: Comment on above: Release Upon Orderin g for 1 Occurrences starting 05/09/2025, 1 completed Urea nitrogen [Mass/volume] in Serum or Plasma [facility] End: 02-24-2026 US Abdomen RUQ US ABD RIGHT UPPER QUADRANT Radiology Routine Elevated alkaline phosphatase level 1 Occurrences starting 01/25/2025 until 02/24/2026 [facility] Work Phone: Comment on above: 1 Occurrences starti ng 01/25/2025 until 02/24/2026 US Abdomen RUQ US ABD RIGHT UPP ER QUADRANT Radiology Routine Elevated alkaline phosphatase level 01/26/2025 2:13 PM EDT [facility] Work Phone: US Kidney - bilatera l and Urinary bladder US KIDNEY/BLADDER Radiology Routine Bilateral hydronephrosis Hydroureter 02/18/2024 11:02 AM EDT [facility] [facility] Immunizations Immunization Date Immunization Notes Care Provider Zehra staton 06-24-2019 influenza virus vacc ine, unspecified formulation Herlinda Teena IMPORT COORDINATOR [facility] 09-18-2015 influenza, high dose seasonal, preservative-free Santo Love MD Work Phone: [facility] 09-18-2015 pneumococcal conjuga te vaccine, 13 valent Santo Love MD Work Phone: [facility] 07-28-2014 influenza, high dose seasonal, preservative-free Santo Love MD Work Phone: [facility] 10-14-2013 influenza virus vacc ine, unspecified formulation Santo Love MD Work Phone: [facility] 10-13-2012 influenza virus vacc ine, unspecified formulation Santo Love MD Work Phone: [facility] 06-13-2011 zoster vaccine, live Santo Love MD Work Phone: [facility] Work Phone: 06-12-2009 pneumococcal polysaccharide vaccine, 23 valent Santo Love MD Work Phone: [facility] Work Phone: 04-13-2007 tetanus toxoid, redu fatemeh diphtheria toxoid, and acellular pertussis vaccine, adsorbed Santo Love MD Work Phone: [facility] Work Phone: Payers Date Payer Category Payer Medicare [id number] 2024 Medicare (Managed Care) BATSHEVA BATISTA [id number] 2024 Medicare [id number] 2024 Medicare [id number] 2023 Private Health Insurance [facility] [id number] 2023 Self-pay [id number] 2023 Medicare [id number] 2018 Unknown ANTHEM BLUE CROS S AND BLUE SHIELD ANTHEM MEDIBLUE HMO [id number] 2018-Present [phone] [address] [place] [address] O [id number]. [id number] 2018 Unknown [id number]. 1.13.159.2. [id number] 2015 Unknown [id number] 1945 Unknown [id number] 2.16.840.1.692987.3.579.2. 651 1945 Unknown [id number] 2.16.840.1.670539.3.579.2. 651 Medicare MEDICARE PART A B [id number] Unknown [id number] 2.16.840.1.868537.3.579.2. 462 Unknown [id number] 2.16.840.1.445604.3.579.2. 462 Unknown [id number] 2.16840.1.324521.3.579.2. 462 Unknown [id number] 2.16.840.1.332171.3.579.2. 462 Unknown [id number] 2.16840.1.684197.3.579.2. 462 Unknown [id number] 2.16840.1.980489.3.579.2. 462 Unknown [id number] 2.840.1.182250.3.579.2. 462 Unknown [id number] 2.840.1.784575.3.579.2. 462 Unknown [id number] 2.840.1.080486.3.579.2. 462 Unknown 1995 2.840.1.075767.3.579.2. 462 Unknown [id number] 2.840.1.784512.3.579.2. 462 Unknown [id number] 2.840.1.894958.3.579.2. 462 Unknown [id number] 2.840.1.050394.3.579.2. 462 Unknown [id number] 2.840.1.386539.3.579.2. 462 Unknown [id number] 2.840.1.216623.3.579.2. 462 Unknown [id number] 2.840.1.575385.3.579.2. 462 Unknown [id number] 2.840.1.345435.3.579.2. 462 Unknown [id number] 2.16840.1.900738.3.579.2. 462 Unknown [id number] 2.840.1.712417.3.579.2. 462 Unknown [id number] 2.16.840.1.092766.3.579.2. 462 Unknown [id number] 2.16.840.1.400706.3.579.2. 462 Unknown [id number] 2.16.840.1.462000.3.579.2. 462 Unknown [id number] 2.16.840.1.960948.3.579.2. 462 Unknown [id number] 2.16.840.1.881107.3.579.2. 462 Unknown [id number] 2.16.840.1.377415.3.579.2. 462 Unknown [id number] 2.16.840.1.858166.3.579.2. 462 Unknown [id number] 2.16.840.1.268470.3.579.2. 462 Unknown [id number] 2.16.840.1.917118.3.579.2. 462 Social History Date Type Detail Facility Start: 11-28-2014 End: 07-17-2022 Tobacco smoking status NHIS Never smoked tobacco [facility] Work Phone: Start: 12-18-2021 End: 01-06-2024 Alcohol intake Current non-drinker of alcohol (finding) [facility] Start: 1945 Sex Assigned At Not on file [facility] Start: 03-14-2022 End: 10-02-2022 Exposure to SARS-CoV-2 (event) Not sure [facility] Start: 11-28-2014 End: 07-17-2022 Tobacco use and exposure Smokeless tobacco non-user [facility] Start: 05-07-2023 End: 01-06-2024 History of Social function [facility] Work Phone: Start: 05-07-2023 End: 01-06-2024 Tobacco use panel [facility] Work Phone: Start: 10-03-2012 Adult Depression Screening Assessment 0 [facility] Work Phone: Start: 12-11-2023 End: 02-01-2024 Tobacco smoking status LAIS Unknown if ever smoked [facility] Start: 02-10-2021 With Family [facility] Start: 1945 Sex Assigned At Female W [facility] Start: 02-02-2024 End: 05-29-2025 Alcohol intake Ex-drinker (finding) [facility] NEGATED: Highlighted row [facility] Medical Equipment Procedure Code Equipment Code Equipment Original Text Equipment Identifier Dates EGD, with monitored anesthesia care Ligation clip, metallic [id number] FDA Start: 12-15-2023 Use as directed once daily as directed DM: yes Insulin: yes DX: E11.9 [id number], [id number] Start: 10-19-2019 End: 03-01-2025 Comment on above: Use as directed once daily as directed DM: yes Insulin: yes DX: E11.9 Goals Date Patient Goal Desired Activity /State Functional Status Date Assessment Result Facility 12-22-2023 Functional status Ambulates [facility] Work Phone: 12-13-2023 Functional status Ambulates;Up ad joanne [facility] Work Phone: 06-01-2015 Are you deaf, or do you have serious difficulty hearing No 06/01/2015 3:46 PM Juliana Cristobal LPN No [facility] 06-01-2015 Are you blind, or do you have serious difficulty seeing, even when wearing glasses No 06/01/2015 3:46 PM Juliana Cristobal LPN No [facility] 06-01-2015 Do you have serious difficulty walking or climbing stairs No 06/01/2015 3:46 PM Juliana Cristobal LPN No [facility] 06-01-2015 Do you have difficul ty dressing or bathing No 06/01/2015 3:46 PM Juliana Cristobal LPN No [facility] 06-01-2015 Because of a physica l, mental, or emotional condition, do you have difficulty doing errands alone such as visiting a physician's office or shopping No 06/01/2015 3:46 PM Juliana Cristobal LPN No [facility] Mental Status Date Assessment Result Facility 02-04-2024 Cognitive function Level Of Cons ciousness Awake;Alert;Appropriate [facility] Work Phone: 12-22-2023 Cognitive function Voice/Name [facility] Work Phone: 12-13-2023 Cognitive function Level Of Cons ciousness Awake;Alert [facility] Work Phone: 12-12-2023 Cognitive function Appropriate;Cooperativ e [facility] Work Phone: 12-12-2023 Cognitive function Arousable To Voice/Nam e [facility] Work Phone: 12-12-2023 Cognitive function Intact [facility] Work Phone: 06-01-2015 Because of a physica l, mental, or emotional condition, do you have serious difficulty concentrating, remembering, or making decisions No 06/01/2015 3:46 PM EDT Juliana Gaspar LPN No [facility] Clinical Notes 03-26-2018 to 08-19-2025 Telephone Encounter - Eli Lyons MA - 07/07/2025 1:29 PM EDTTelephone Encounter - Eli Lyons MA - 07/07/2025 1:29 PM EDTTelephone Encounter - Eli Lyons MA - 07/07/2025 1:29 PM EDT Note Date & Type Note Facility 08-19-2025 Note HNO ID: [id number] Author: SANTO LOVE MD Service: ? Author [...] General (Family Medicine) Raisa Maradiaga APRN.TOBY as Leather Scraper (Family Medicine) Juliana Davis APRN.TOBY as Leather Scraper (Family Medicine) Dr Guerrero, optho. Heart group [...] insulin and Januvia. - Denies seeing a baker doughnut. Hypertension: - Taking losartan and verapamil. - [...] [facility] 08-19-2025 Note HNO ID: [id number] Author: ELI LOYNS MA Service: ? Author Type: Securities Settlement Processor Type: Progress Notes Filed: 08/19/2025 11:03 Note [...] clinical practice. J Neurol. 2023Apr 05. doi: 10.1007/[id number]. Epub ahead of print. PMID: [id number]. [facility] 07-07-2025 Telephone encounter Note Patient read mychart result note [facility] 07-07-2025 Telephone encounter Note ----- Message from Juliana Davis sent at 07/07/2025 12:59 PM EDT ----- Mammogram was okay. ----- Message ----- From: Prudencio Kenney In Sent: 07/07/2025 9:52 AM EDT To: Santo Love MD [facility] 07-07-2025 Miscellaneous Notes Patient read mychart result note ----- Message from Juliana Davis sent at 07/07/2025 12:59 PM EDT ----- Mammogram was okay. ----- Message ----- From: Prudencio Kenney In Sent: 07/07/2025 9:52 AM EDT To: Santo Love MD Mammogram was okay. documented in this encounter [facility] 07-07-2025 Progress note Formatting of t his note might be different from the original. Mammogram was okay. [facility] Work Phone: 07-06-2025 History of Present illness [...] PATIENT PRESENTS WITH AN IMPLANTABLE OR ATTACHED SUPERVISOR GLYCERIN: No RADIOLOGY DEPARTMENT: Mammography PERIPHERAL IV DATA: Not applicable SIGNED BY: Porfirio Walden July 06, 2025 11:26 AM documented in this encounter [facility] 07-06-2025 Note HNO ID: [id number] Author: DIONNA SHAY Mammo Tech Service: ? Author Type: Mat Linker Type: Progress Notes Filed: 07/06/2025 11:27 Note [...] PATIENT PRESENTS WITH AN IMPLANTABLE OR ATTACHED SUPERVISOR GLYCERIN: No RADIOLOGY DEPARTMENT: Mammography PERIPHERAL IV DATA: Not applicable SIGNED BY: Porfirio Walden July 06, 2025 11:26 AM [facility] 07-05-2025 Telephone encounter Note Order placed. Raisa Maradiaga APRN.CNP [facility] 07-05-2025 Miscellaneous Notes Order placed. Raisa Maradiaga APRN.CNP Patient is scheduled tomorrow 07/06/2025 for her Screening Mammogram. Can you please place Mammogram order? JARVIS Garcia documented in this encounter [facility] 07-05-2025 Telephone encounter Note Patient is scheduled tomorrow 07/06/2025 for her Screening Mammogram. Can you please place Mammogram order? JARVIS Garcia [facility] 06-21-2025 Telephone encounter Note Prescription Refill Information [...] Genet Mosley June 21, 2025 3:08 PM [facility] 06-21-2025 Miscellaneous Notes Prescription Refill Information The [...] 2025 3:08 PM documented in this encounter [facility] 05-29-2025 Instructions Juliana Davis APRN.CNP - 05/29/2025 11:51 AM EDT 1) no change in medications 2) follow up with Dr. Love as scheduled documented in this encounter [facility] 05-29-2025 Note HNO ID: [id number] Author: JULIANA DAVIS APRN.CNP Service: ? Author [...] [facility], [facility]23 Hydroureter Lung nodule 01/2024 [...] percutaneous left heart [facility], [facility] 12/16/2023 Hydroureter Lung nodule 01/2024 [...] Juliana Davis APRN.CNP documented in this encounter [facility] 05-17-2025 Telephone encounter Note RN attempting to contact patient to reschedule appt for today with Dr. Calderon. RN transferred phone to hi. I spoke with pt and let her know that after speaking with Dr. Calderon he would like her sent to Dr. Castro for ELS of large colon polyp. Pathology reviewed with patient and patient informed of referral being placed to Dr. Castro for consult. [facility] Work Phone: 05-17-2025 Miscellaneous Notes RN attempting to contact patient to reschedule appt for today with Dr. Calderon. RN transferred phone to hi. I spoke with pt and let her know that after speaking with Dr. Calderon he would like her sent to Dr. Castro for ELS of large colon polyp. Pathology reviewed with patient and patient informed of referral being placed to Dr. Castro for consult. documented in this encounter [facility] 05-17-2025 Telephone encounter Note Left message for Kellie to return my call concerning her appointment today. I told patient I would send a mychart message she could respond to, or be transferred to General Surgery Nurse.Tisha Mane RN [facility] 05-17-2025 Miscellaneous Notes Left message for Kellie to return my call concerning her appointment today. I told patient I would send a mychart message she could respond to, or be transferred to General Surgery Nurse.Tisha Mane RN documented in this encounter [facility] 05-09-2025 Note Formatting of this n ote might be different from the original. The patient received a copy of Colonoscopy discharge instructions that contain information for how to contact the physician who performed the procedure and when to seek medical care. [facility] 05-09-2025 Miscellaneous Notes The patient received a copy of Colonoscopy discharge instructions that contain information for how to contact the physician who performed the procedure and when to seek medical care. documented in this encounter [facility] 05-09-2025 Attending History and physical note UPDATED [...] T2DM, MARYCHUY and osteopenia. Kellie follows with [facility] for A.Fib, HTN, HLD & CAD s/p stent x 4 (2008). Last OV 10/25, Last ECHO 07/26 EF: 55%. She denies CP, SOB, dizziness, palpitations, syncope, edema, recent hospitalizations Kellie has undergone prior endoscopy. Last colonoscopy was 09/[address] Calderon at [facility]. Sedation: Midazolam 3 mg IV, Fentanyl [...] [facility] 12/16/2023 Hydroureter Lung nodule 01/2024 [...] PCP & scheduled for open access in [facility]. Pt was provided Golytely prep instructions which [...] edited and updated as necessary. Elizabeth Ortega APRN.PEDICURIST [facility] Work Phone: 05-09-2025 History and physical note [...] T2DM, MARYCHUY and osteopenia. Kellie follows with [facility] for A.Fib, HTN, HLD & CAD s/p stent x 4 (2008). Last OV 10/25, Last ECHO 07/26 EF: 55%. She denies CP, SOB, dizziness, palpitations, syncope, edema, recent hospitalizations Kellie has undergone prior endoscopy. Last colonoscopy was 09/[address] Calderon at [facility]. Sedation: Midazolam 3 mg IV, Fentanyl [...] percutaneous left heart [facility]2011 [facility], [facility] 12/16/2023 Hydroureter Lung nodule 01/2024 [...] edited and updated as necessary. Elizabeth Ortega APRN.PEDICURIST [facility] 05-09-2025 History and physical note UPDATED PROCEDURAL [...] T2DM, MARYCHUY and osteopenia. Kellie follows with [facility] for A.Fib, HTN, HLD & CAD s/p stent x 4 (2008). Last OV 10/25, Last ECHO 07/26 EF: 55%. She denies CP, SOB, dizziness, palpitations, syncope, edema, recent hospitalizations Kellie has undergone prior endoscopy. Last colonoscopy was 09/[address] Calderon at [facility]. Sedation: Midazolam 3 mg IV, Fentanyl [...] [facility], [facility]23 Hydroureter Lung nodule 01/2024 [...] edited and updated as necessary. Elizabeth Ortega APRN.PEDICURIST HISTORY AND PHYSICAL Kellie Dozier : 1945 [...] T2DM, MARYCHUY and osteopenia. Kellie follows with [facility] for A.Fib, HTN, HLD & CAD s/p stent x 4 (2008). Last OV 10/25, Last ECHO 07/26 EF: 55%. She denies CP, SOB, dizziness, palpitations, syncope, edema, recent hospitalizations Kellie has undergone prior endoscopy. Last colonoscopy was 09/[address] Calderon at [facility]. Sedation: Midazolam 3 mg IV, Fentanyl [...] percutaneous left heart catheter[facility]2011 [facility], [facility] 12/16/2023 Hydroureter Lung nodule 01/2024 [...] PCP & scheduled for open access in [facility]. Pt was provided Golytely prep instructions which [...] edited and updated as necessary. Elizabeth Ortega APRN.PEDICURIST documented in this encounter [facility] 05-04-2025 History of Present illness Narrative HISTORY [...] T2DM, MARYCHUY and osteopenia. Kellie follows with [facility] for A.Fib, HTN, HLD & CAD s/p stent x 4 (2008). Last OV 10/25, Last ECHO 07/26 EF: 55%. She denies CP, SOB, dizziness, palpitations, syncope, edema, recent hospitalizations Kellie has undergone prior endoscopy. Last colonoscopy was 09/[address] Calderon at [facility]. Sedation: Midazolam 3 mg IV, Fentanyl [...] percutaneous left heart catheterization 06/[facility]/2011 [facility], [facility] 12/16/2023 Hydroureter Lung nodule 01/2024 [...] Elizabeth Ortega APRN.TOBY documented in this encounter [facility] 05-04-2025 Note HNO ID: [id number] Author: ELIZABETH ORTEGA APRN.CNP Service: ? Author [...] T2DM, MARYCHUY and osteopenia. Kellie follows with [facility] for A.Fib, HTN, HLD AND CAD s/p stent x 4 (2008). Last OV 10/25, Last ECHO 07/26 EF: 55%. She denies CP, SOB, dizziness, palpitations, syncope, edema, recent hospitalizations Kellie has undergone prior endoscopy. Last colonoscopy was 09/[address] Calderon at [facility]. Sedation: Midazolam 3 mg IV, Fentanyl [...] percutaneous left heart catheterization 06/24/2011 [place] Hydronephrosis, bilateral 12/16/2023 Hydroureter Lung nodule 01/2024 [...] COLON SURGERY HX Diverticular disease COLONOSCOPY 2006 [facility] COLONOSCOPY 09/12/2014 no polyps, repeat d (more content not included)... [facility] 05-03-2025 Telephone encounter Note Pt notified of results/provider instructions. She verbalized understanding. Brittney Hinton LPN [facility] 05-03-2025 Miscellaneous Notes Pt notified of results/provider [...] Raisa Maradiaga APRN.CNP documented in this encounter [facility] 05-03-2025 Telephone encounter Note Can we please [...] sugars in 2 weeks. Raisa Maradiaga APRN.TOBY [facility] 05-01-2025 Instructions Raisa Maradiaga APRN.CNP - 05/01/2025 2:13 PM EDT Follow up in 2 weeks Lab work A1C Increased Losartan to 100 mg daily one tab by mouth Bring your home blood pressure machine on your next visit documented in this encounter [facility] 05-01-2025 Note HNO ID: [id number] Author: RAISA MARADIAGA APRN.CNP Service: ? Author [...] percutaneous left heart [facility], [facility] 12/16/2023 Hydroureter Lung nodule 01/2024 [...] COLON SURGERY HX Diverticular disease COLONOSCOPY 2006 [facility] COLONOSCOPY 09/12/2014 no polyps, repeat due [...] percutaneous left heart catheterization 06/24/2011 done at [place] Hydronephrosis, bilateral 12/16/2023 Hydroureter Lung nodule 01/2024 [...] as needed for worsening/no improvement. Raisa Maradiaga APRN.PEDICURIST documented in this encounter [facility] 03-30-2025 Instructions Genet Stahl - 03/30/2025 12:43 [...] am on dialysis? A: Please consult your shredder/granulator operator prior to scheduling to get instructions pertinent to you. In general, dialysis patients take the [employer] (formerly [employer]ytely bowel prep and have the procedure same [...] of the day. documented in this encounter [facility] 03-30-2025 Note HNO ID: [id number] Author: ?, ?, ? Service: ? Author Type: ? Type: Progress Notes Filed: 03/30/2025 12:50 Note Text: POPULATION HEALTH NAVIGATION OUTREACH Action/FYI Patient outreach for Hcc gaps; [place], AWV. Spoke with patient and scheduled colonoscopy, [...] Wellness Visit Colorectal Cancer Screening 05/08/2025 in [facility] with RAISA MRAADIAGA - 2 month BP check 05/09/20[facility] ZARI [facility]ORENSON - [facility] - wellness , hcc gaps 11/30[facility] [facility] - Granulomatous disease (HCC) [D71]; Lung nodules [R91.8]; History of breast cancer [Z85.3] HCC related Navigation Signature: Genet Mosley March 30, 2025 12:26 PM [facility] 03-30-2025 History of Present illness Narrative POPULATION HEALTH NAVIGATION OUTREACH Action/FYI Patient outreach for Hcc gaps; [place], AWV. Spoke with patient and scheduled colonoscopy, [...] Wellness Visit [facility]orectal [facility] - 2 month BP check 05/09/2025 [facility] ZARI SORENSON - colonoscopy 08/19/2025 in [facility] with SANTO LOVE - wellness , hcc gaps 11/30/[address] [facility] (I-STAT) - Granulomatous disease (HCC) [D71]; Lung nodules [R91.8]; History of breast cancer [Z85.3] HCC related Navigation Signature: Genetcarissa Mosley March 30, 2025 12:26 PM documented in this encounter [facility] 03-30-2025 Note Patient Outreach (IAIN VÁZQUEZ) ---- KELLIE DOZIER ([id number]) 1945 F NFR Date Time Provider Department 03/30/25 SANTO LOVE During your visit today, we recorded the following information about you: Genet Stahl 03/30/2025 12:50 PM Signed POPULATION HEALTH NAVIGATION OUTREACH Action/FYI Patient outreach for Hcc gaps; [place], AWV. Spoke with patient and scheduled colonoscopy, [...] Wellness Visit Colorectal Cancer Screening 05/08/2025 in [facility] with RAISA MARADIAGA - 2 month BP check 05/09/2025 in [facility] with ZARI SORENSON - colonoscopy 08/19/2025 in [facility] with SANTO OLVE - wellness , hcc gaps 11/30/[address] [facility] with CT [facility] (I-STAT) - Granulomatous disease (HCC) [D71]; [...] [facility] 03-07-2025 Note HNO ID: [id number] Author: RAISA MARADIAGA APRN.PEDICURIST Service: ? Author Type: Nurse Practitioner Type: [...] sitagliptin in December; previously took it in [id number]. - Currently taking glipizide 2.5 mg BID. [...] percutaneous left [facility], [facility] 12/16/2023 Hydroureter Lung nodule 01/2024 [...] COLON SURGERY HX Diverticular disease COLONOSCOPY 2006 [facility] COLONOSCOPY 09/12/2014 no polyps, repeat due [...] sitagliptin in December; previously took it in [id number]. - Currently taking glipizide 2.5 mg BID. [...] percutaneous left heart catheter[facility]2011 [facility], [facility] 12/16/2023 Hydroureter Lung nodule 01/2024 [...] confirmation of current medication from patient via manetch before making changes. - Patient to message medication details through manetch with assistance from granddaughter. - No episodes of hypoglycemia reported. Discussed treatment plan and patient voices understanding. Patient's questions answered appropriately. Medications and potential side effects were discussed and patient voices understanding. Return to the office as scheduled or as needed for worsening/no improvement. Raisa Maradiaga APRN.CNP Recording using [employer] software for draft documentation of the visit was discussed with the patient/authorized player services representative; all questions welcomed and answered. Patient/authorized player services representative agreed to proceed documented in this encounter [facility] 03-07-2025 Instructions Raisa Maradiaga APRN.CNP - 03/07/2025 11:18 AM EDT Continue taking your losartan by splitting the 50-mg tablets to take 1 tablets daily as prescribed. Continue checking your blood sugar levels each morning and at night so we can better track your readings. -Send me a [employer] message with the medication you are referring to. documented in this encounter [facility] 03-03-2025 Telephone encounter Note The patient has [...] Stern RN March 03, 2025 4:21 PM [facility] 03-03-2025 Miscellaneous Notes The patient has been [...] 2025 4:21 PM documented in this encounter [facility] 03-01-2025 Telephone encounter Note Prescription Refill Information [...] Griselda Farley March 01, 2025 8:19 AM [facility] 03-01-2025 Miscellaneous Notes Prescription Refill Information The [...] 2025 8:19 AM documented in this encounter [facility] 02-08-2025 Telephone encounter Note OV note faxed to [facility]. Brittney Hinton LPN [facility] 02-08-2025 Miscellaneous Notes OV note faxed to [facility]. Brittney Hinton LPN Can we please fax today's office note to [facility] so they are aware of recent medication changes. Raisa Maradiaga APRN.PEDICURIST documented in this encounter [facility] 02-07-2025 Telephone encounter Note Can we please fax today's office note to [facility] so they are aware of recent medication changes. Raisa Maradiaga APRN.PEDICURIST [facility] 02-07-2025 Note HNO ID: [id number] Author: RAISA MARADIAGA APRN.CNP Service: ? Author [...] percutaneous left heart [facility], [facility] 12/16/2023 Hydroureter Lung nodule 01/2024 [...] percutaneous left heart catheterization 06/24/2011 done at [place] Hydronephrosis, bilateral 12/16/2023 Hydroureter Lung nodule 01/2024 [...] control remains suboptimal -- recently added in [facility]. - Monitoring blood glucose levels twice daily: fasting in the morning and before bedtime. - Discussed previous effective treatment with Jardiance and Trulicity, but cost prohibitive. - Will contact Herlinda from [employer] to explore eligibility for hop sorter assistance programs for Jardiance or Trulicity. - [...] The patient consented to the use of [employer] software for draft documentation of the visit consistent with [facility] s Notice of Privacy Practices. documented in this encounter [facility] 02-07-2025 Instructions Raisa Maradiaga APRN.CNP - 02/07/2025 [...] blood pressure recheck. documented in this encounter [facility] 02-06-2025 History of Present illness Narrative Primary [...] Darrin Hope RPh documented in this encounter [facility] 02-06-2025 Note HNO ID: [id number] Author: DARRIN HOPE RPh Service: ? Author [...] Patient Outreach (PM STOW) ---- KELLIE DOZIER ([id number]) 1945 F NFR Date Time Provider Department [...] [D12.6] 10/17/2011 10/02/2022 Diverticulitis [K57.92] 10/24/2011 10/02/2022 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 [Z79.01]01/10/2017 07/13/2024 Persistent [...] instructions. Pt voices understanding. Lisa Barber RN [facility] 01-27-2025 Miscellaneous Notes Pt called and is [...] this prior to making adjustments. Raisa Maradiaga APRN.PEDICURIST documented in this encounter [facility] 01-27-2025 Telephone encounter Note Lets try starting her on januvia and see if this is covered by insurance. I went ahead and sent this into the pharmacy. Raisa Maradiaga APRN.PEDICURIST [facility] 01-27-2025 Telephone encounter Note Patient was notified and is only doing glipizide 2.5 BID and insulin 30 units daily. Not taking Invokana due to lim. Leonela Beckman MA [facility] 01-27-2025 Telephone encounter Note Raisa Maradiaga APRN.CNP [...] this prior to making adjustments. Raisa Maradiaga APRN.PEDICURIST [facility] 01-26-2025 Note HNO ID: [id number] Author: DEBORAH FORREST RDMS Service: ? Author Type: Service Desk Analyst Type: Progress Notes Filed: 01/27/2025 08:20 Note [...] PATIENT PRESENTS WITH AN IMPLANTABLE OR ATTACHED SUPERVISOR GLYCERIN: No RADIOLOGY DEPARTMENT: Ultrasound PERIPHERAL IV DATA: [...] this prior to making adjustments. Raisa Maradiaga APRN.PEDICURIST T [facility] 01-25-2025 Miscellaneous Notes Can please let patient [...] this prior to making adjustments. Raisa Maradiaga APRN.PEDICURIST documented in this encounter [facility] 01-25-2025 Telephone encounter Note Patient given message below. Agreeable to US. Transferred to mill order scheduler. Tonia Stern RN [facility] 01-25-2025 Miscellaneous Notes Patient given message below. Agreeable to US. Transferred to mill order scheduler. Tonia Stern RN Message left for return call. Tierney White MA Alk phos elevation is all liver. Was up before. Can occur with fatty liver that is associated with dm. Check liver us to be on safe side. documented in this encounter [facility] 01-25-2025 Telephone encounter Note Message left for return call. Tierney White MA [facility] 01-25-2025 Telephone encounter Note Alk phos elevation is all liver. Was up before. Can occur with fatty liver that is associated with dm. Check liver us to be on safe side. [facility] 12-13-2024 Note HNO ID: [id number] Author: BRITTNEY HINTON LPN Service: ? Author [...] percutaneous left heart [facility] 12/16/2023 Hydroureter Lung nodule 01/2024 [...] COLON SURGERY HX Diverticular disease COLONOSCOPY 2006 [facility] COLONOSCOPY 09/12/2014 no polyps, repeat due [...] Raisa Maradiaga APRN.CNP documented in this encounter [facility] 12-13-2024 Instructions Raisa Maradiaga APRN.CNP - 12/13/2024 11:25 AM EST Diabetic recheck in 2 months. (I put an order in for the A1C). Continue the same medications. documented in this encounter [facility] 12-13-2024 Note HNO ID: [id number] Author: RAISA MARADIAGA APRN.CNP Service: ? Author [...] percutaneous left heart catheterization 06/24/2011 done at [place] Hydronephrosis, bilateral 12/16/2023 Hydroureter Lung nodule 01/2024 [...] COLON SURGERY HX Diverticular disease COLONOSCOPY 2006 [facility] COLONOSCOPY 09/12/2014 no polyps, repeat due [...] encounter Note Script sent. Raisa Maradiaga APRN.CNP [facility] Work Phone: 12-07-2024 Miscellaneous Notes Script sent. [...] yes PHARMACY: [facility] documented in this encounter [facility] 12-07-2024 Telephone encounter Note Prescription Refill Information [...] EDVIN Rasmussen December 07, 2024 9:53 AM [facility] 12-07-2024 Telephone encounter Note Patient requesting medication that is on list verapamil ER (VERELAN PM) 300 mg CPCT () Patient last seen 11/19/24 Future visit scheduled: yes PHARMACY: [facility] 12-07-2024 Telephone encounter Note Prescription Refill Information [...] Griselda Farley December 07, 2024 9:15 AM [facility] 12-07-2024 Miscellaneous Notes Prescription Refill Information The [...] 2024 9:15 AM documented in this encounter [facility] 11-29-2024 History of Present illness Narrative Images from the original note were not included. . [facility] [place] Note Patient name: Kellie Dozier PCP: Santo [...] DATE OF EXAM: Aug 09 2024 10:20AM [facility] 0541 - CT CHEST WO IVCON / [...] percutaneous left heart catheterization 06/24/2011 [facility], [facility] 12/16/2023 Hydroureter Lung nodule 01/2024 [...] July was normal. Leonela Bear MD [facility] [place] documented in this encounter [facility] 11-29-2024 Note HNO ID: [id number] Author: LEONELA BEAR MD Service: ? Author Type: Physician Type: Progress Notes Filed: 11/29/2024 12:00 Note Text: . [facility] [place] Note Patient name: Kellie Dozier PCP: Santo [...] DATE OF EXAM: Aug 09 2024 10:20AM [facility] 0541 - CT CHEST WO IVCON / [...] percutaneous [facility], [facility] Hydroureter Lung nodule 01/2024 [...] read below and advise. Paola Jara MA [facility] 11-28-2024 Miscellaneous Notes X2. Unable to reach [...] med to help. documented in this encounter [facility] 11-23-2024 Telephone encounter Note LEFT MESSAGE FOR PATIENT TO CALL OFFICE. [facility] 11-23-2024 Telephone encounter Note Is she able to check with the pharmacist or her insurance company to see if there is a med in that class they cover. We changed from jardiance to invokana due to cost. I have no idea which one Is covered. [facility] 11-23-2024 Telephone encounter Note Patient notified of new instructions for the B12. She did mention that the medication that you were going to prescribe for her blood sugar will be about $400 out of pocket for her. Asking if there is something different that she can try? [facility] 11-21-2024 Telephone encounter Note TC no answer. Left VM to return call. EDVIN Rasmussen [facility] 11-21-2024 Telephone encounter Note Can cut her b12 to every other day [facility] 11-21-2024 Telephone encounter Note Patient returned call and went over results, notes from Dr Love with understanding. Patient asking since her Vitamin B 12 is elevated, should she cut back or stop taking the B 12? Did you want to add fractionated Alk Phos order? Pending order [facility] 11-21-2024 Telephone encounter Note Called and left a voicemail for the Patient to call back and ask for a nurse to receive the providers message. Lisa Barber, RN [facility] 11-21-2024 Telephone encounter Note Labs are stable. Alk phos is up. Check fractionated alk phos. Sugars are improving. Urine shows small amount of protein. Recheck urine in a month. If persists, may need to add a med to help. [facility] 11-19-2024 Note HNO ID: [id number] Author: SANTO LOVE MD Service: ? Author Type: Physician Type: Progress Notes Filed: 11/19/2024 10:05 Note Text: Patient presents with: Follow Up HPI: Patient presents today for office visit for follow up. Follows with [facility]. Recently started on Losartan 50 [...] percutaneous left heart catheterization 06/24/2011 done at [place] Hydromephrosis, bilateral 12/16/2023 Hydroureter Lung nodule 01/2024 Malignant neoplasm of breast (female), unspecified site 1998 Breast cancer right Mixed hyperlipidemia OBESITY 12/16/2005 Osteoarthritis of right knee Osteopenia 05/21/2010 Paroxysmal SVT (supraventricular tachycardia) ([facility]) Dr Marcelo Persistent atrial fibrillation (HCC) Post-menopausal [...] office visit for follow up. Follows with [facility]. Recently started on Losartan 50 [...] percutaneous left heart catheterization 06/24/2011 done at [place] Hydronephrosis, bilateral 12/16/2023 Hydroureter Lung nodule 01/2024 [...] COLON SURGERY HX Diverticular disease COLONOSCOPY 2006 [facility] COLONOSCOPY 09/12/2014 no polyps, repeat due [...] weeks and prn. documented in this encounter [facility] 08-09-2024 History of Present illness Narrative Radiology [...] PATIENT PRESENTS WITH AN IMPLANTABLE OR ATTACHED SUPERVISOR GLYCERIN: No RADIOLOGY DEPARTMENT: CT; Exam(s) Completed: Chest PERIPHERAL IV DATA: Not applicable SIGNED BY: RT Darrion(R) August 09, 2024 11:56 AM documented in this encounter [facility] 07-13-2024 History of Present illness Narrative Patient [...] follow up of renal cyst. Still sees [facility]. Mammogram was normal. Latest Ref [...] Abs Lymph 1.00 - 4.00 k/uL 1.50 [place]% % 8.8 Abs [place] <0.87 k/uL 0.77 Eosin% % 1.5 Abs [...] HISTORY No date: Arthritis 02/18/2011: Breast cancer ([facility]) No date: CAD (coronary artery disease) Comment: [...] percutaneous left heart catheterization Comment: done at [place] 12/16/2023: Hydronephrosis, bilateral No date: Hydroureter 01/2024: Lung nodule 1998: Malignant neoplasm of breast (female), unspecified site Comment: Breast cancer right No date: Mixed hyperlipidemia 12/16/2005: OBESITY No date: Osteoarthritis of right knee 05/21/2010: Osteopenia No date: Paroxysmal SVT (supraventricular tachycardia) ([facility]) Comment: Dr Marcelo No date: Persistent atrial fibrillation ([facility]) 2006: Post-menopausal bleeding 12/16/2005: TUBERCULIN TEST REACTION NO TBC No date: Type 2 diabetes mellitus without complication, without long- term current use of insulin ([facility]) No date: Unspecified constipation No date: Unspecified [...] exercise 3. Atherosclerosis of coronary artery of [place] heart without angina pectoris, unspecified vessel or [...] weeks or prn. documented in this encounter [facility] 07-06-2024 Note Formatting of this n ote might be different from the original. July 06, 2024 PID: [id number] Kellie Dozier [address] [place] [address] Dear Ms. Dozier, We are pleased to [...] report will be kept on file at [facility] as part of your permanent medical record and are available for your continuing care. Thank you for allowing us to help in meeting your health care needs. Sincerely, Dr. Lao Interpreting Radiologist [facility] (Normal over 40) [facility] 07-06-2024 Miscellaneous Notes July 06, 2024 PID: [id number] Kellie Dozier [address] [address] Dear Ms. Dozier, We are pleased to [...] report will be kept on file at [facility] as part of your permanent medical record and are available for your continuing care. Thank you for allowing us to help in meeting your health care needs. Sincerely, Dr. Lao Interpreting Radiologist [facility] (Normal over 40) documented in this encounter [facility] 07-05-2024 History of Present illness Narrative Radiology [...] PATIENT PRESENTS WITH AN IMPLANTABLE OR ATTACHED SUPERVISOR GLYCERIN: No RADIOLOGY DEPARTMENT: Mammography PERIPHERAL IV DATA: Not applicable SIGNED BY: RT Lolis(R) July 05, 2024 8:55 AM documented in this encounter [facility] 06-20-2024 Instructions Juliana Davis APRN.CNP - 06/20/2024 11:04 AM EDT 1) Start glipizide 2.5 mg 2 x day with breakfast and supper 2) Continue Lantus 30 units in morning 3) See Dr. Love 07/13/24 documented in this encounter [facility] 06-20-2024 History of Present illness Narrative This [...] percutaneous left heart catheterization Comment: done at [place] 12/16/2023: Hydronephrosis, bilateral No date: Hydroureter 01/2024: [...] GLIPIZIDE 2.5 MG TABLET 3. Atherosclerosis of [place] coronary artery of [place] heart without angina pectoris - ICD9: 414.01, ICD10: I25.10 Stable Discussed treatment plan and patient voices understanding. Patient's questions answered appropriately. Medications and potential side effects were discussed and patient voices understanding. Return to the office as scheduled or as needed for worsening/no improvement. Juliana Davis APRN.CNP documented in this encounter [facility] 05-12-2024 Instructions Juliana Davis APRN.CNP - 05/12/2024 10:27 AM EDT 1) Increase lisinopril to 30 mg daily 2) Switch Lantus to 30 units and in the morning, not evening 3) Follow up in 1 month documented in this encounter [facility] 05-12-2024 History of Present illness Narrative This [...] percutaneous left heart catheterization 06/24/2011 done at [place] Hydronephrosis, bilateral 12/16/2023 Hydroureter Lung nodule 01/2024 Malignant neoplasm of breast (female), unspecified site 1998 Breast cancer right Mixed hyperlipidemia OBESITY 12/16/2005 Osteoarthritis of right knee Osteopenia 05/21/2010 Paroxysmal SVT (supraventricular tachycardia) ([facility]) Dr Marcelo Persistent atrial fibrillation (HCC) Post-menopausal [...] Juliana Davis APRN.CNP documented in this encounter [facility] 04-28-2024 Telephone encounter Note A generic of glargine FlexPen is preferred. [facility] 04-28-2024 Miscellaneous Notes A generic of glargine FlexPen is preferred. Kaylynn with [facility] called to get clarification on what is being request for pt regarding insulin glargine Does pt ant flex pens if so 5 to a box with each being 3 ml. or Vial which contains 10 mls. Please advise pharmacy and may need to send new prescription. Oni Aleman LPN documented in this encounter [facility] 04-28-2024 Telephone encounter Note Kaylynn with [facility] called to get clarification on what is being request for pt regarding insulin glargine Does pt ant flex pens if so 5 to a box with each being 3 ml. or Vial which contains 10 mls. Please advise pharmacy and may need to send new prescription. Oni Aleman LPN [facility] 04-28-2024 Telephone encounter Note Prescription Refill Information [...] Kaylynn Mosley April 28, 2024 8:07 AM [facility] 04-28-2024 Miscellaneous Notes Prescription Refill Information The [...] at bedtime. Patient assistance maria d Aleman [facility] April 28, 2024 8:07 AM documented in this encounter [facility] 04-13-2024 Telephone encounter Note Spoke with patient. Scheduled with Keeley Davis. Tierney White MA [facility] 04-13-2024 Miscellaneous Notes Spoke with patient. Scheduled with Keeley Davis. Tierney White MA Message left for return call to schedule 1 month BP check. Tierney White MA I forgot to put on her after visit summary from today to do a bp check in a nurse in a month when she does her next set of labs. documented in this encounter [facility] 04-12-2024 Telephone encounter Note Message left for return call to schedule 1 month BP check. Tierney White MA [facility] 04-12-2024 Telephone encounter Note I forgot to put on her after visit summary from today to do a bp check in a nurse in a month when she does her next set of labs. [facility] 04-12-2024 Instructions Santo Love MD - 04/12/2024 4:01 PM EDT Stop iron. Resume protonix and start new sugar med and drop off sugars in a month documented in this encounter [facility] 04-12-2024 History of Present illness Narrative Patient [...] followed annually. CAD: Continues to follow with [facility], Dr. Kelley. Last OV 04/07/24 [...] Abs Lymph 1.00 - 4.00 k/uL 1.84 [place]% % 9.8 Abs [place] <0.87 k/uL 0.77 Eosin% % 1.7 Abs [...] percutaneous left heart catheterization 06/24/2011 done [place] Hydronephrosis, bilateral 12/16/2023 Hydroureter Lung nodule 01/2024 Malignant neoplasm of breast (female), unspecified site 1998 Breast cancer right Mixed hyperlipidemia OBESITY 12/16/2005 Osteoarthritis of right knee Osteopenia 05/21/2010 Paroxysmal SVT (supraventricular tachycardia) ([facility]) Dr Marcelo Persistent atrial fibrillation ([facility]) Post-menopausal bleeding 2007 TUBERCULIN TEST REACTION NO TBC 12/16/2005 Type 2 diabetes mellitus without complication, without long-term current use of insulin ([facility]) Unspecified constipation Unspecified glaucoma(365.9) Glaucoma Low tension [...] in one month. documented in this encounter [facility] 04-08-2024 History of Present illness Narrative HPI: Patient presents today for office visit for to go over labs and review chronic health problems. Epic was completely down. Because of that we elected to not charge her and have her come back to perform visit. No charge. documented in this encounter [facility] 03-14-2024 Telephone encounter Note Patient has been [...] 04/08/2024 Please advise. Thank you. Kaylynn Mosley. [facility] 03-14-2024 Miscellaneous Notes Patient has been identified [...] you. Kaylynn Mosley. documented in this encounter [facility] 02-23-2024 Telephone encounter Note Called patient. Verified name and date of . Patient informed of results- verbalizes understanding. Janeth Oates LPN [facility] 02-23-2024 Miscellaneous Notes Called patient. Verified name and date of . Patient informed of results- verbalizes understanding. Janeth Oates LPN ----- Message from Zac Duncan PA-C sent at 02/22/2024 6:15 PM EDT ----- Renal US with Benign Renal Cyst, not a concern , no hydronephrosis found Renal cyst can be followed with renal units annually DANNA Renteria, [place], SHASHA documented in this encounter [facility] 02-23-2024 Telephone encounter Note ----- Message from Zac Duncan PA-C sent at 02/22/2024 6:15 PM EDT ----- Renal US with Benign Renal Cyst, not a concern , no hydronephrosis found Renal cyst can be followed with renal units annually DANNA Renteria, SHASHA HOANG [facility] 02-22-2024 History of Present illness Narrative Images from the original note were not included. . [facility] [place] Note Patient name: Kellie Dozier PCP: Santo [...] 1.78 Monocytes % % 10.0 9.3 Abs [place] <0.87 k/uL 0.83 0.73 Eosinophils % % [...] DATE OF EXAM: Jan 12 2024 11:12AM [facility] 0541 - CT CHEST WO IVCON / [...] percutaneous left heart catheterization 06/24/2011 done [place] Hydronephrosis, bilateral 12/16/2023 Hydroureter Lung nodule 01/2024 Malignant neoplasm of breast (female), unspecified site 1998 Breast cancer right Mixed hyperlipidemia OBESITY 12/16/2005 Osteoarthritis of right knee Osteopenia 05/21/2010 Paroxysmal SVT (supraventricular tachycardia) ([facility]) Dr Marcelo Persistent atrial fibrillation ([facility]) Post-menopausal bleeding 2006 TUBERCULIN TEST REACTION NO TBC 12/16/2005 Type 2 diabetes mellitus without complication, without long-term current use of insulin ([facility]) Unspecified constipation Unspecified glaucoma(365.9) Glaucoma Low tension [...] COLON SURGERY HX Diverticular disease [facility] 09/12/2014 no polyps, repeat due 2018 [...] evidence of recurrence Leonela Bear MD [facility] [place] documented in this encounter [facility] 02-18-2024 History of Present illness Narrative Radiology [...] PATIENT PRESENTS WITH AN IMPLANTABLE OR ATTACHED SUPERVISOR GLYCERIN: No RADIOLOGY DEPARTMENT: Ultrasound PERIPHERAL IV DATA: Not applicable SIGNED BY: Deborah Forrest RDMS RVT February 18, 2024 11:52 AM documented in this encounter [facility] 02-08-2024 Telephone encounter Note Images from the original note were not included. Talya Rodriguez PA-C P phani Carson Please schedule CT chest 6 months- I missed placing the order during the visit. Mandy, Rafael Rodriguez PA-C [facility] 02-08-2024 Miscellaneous Notes Images from the original note were not included. Talya Rodriguez PA-C P [facility] Susu Carson Please schedule CT chest 6 months- I missed placing the order during the visit. Thanks, Rafael Rodriguez PA-C documented in this encounter [facility] 02-08-2024 History of Present illness Narrative 78 [...] percutaneous left heart catheterization 06/24/2011 done [place] Hydronephrosis, bilateral 12/16/2023 Hydroureter Lung nodule 01/2024 [...] (supraventricular tachycardia) (HCC) Osteoarthritis of Right Knee 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 Persistent Atrial [...] Talya Rodriguez PA-C documented in this encounter [facility] 02-05-2024 Miscellaneous Notes Spoke to patient and [...] due on Thursday. documented in this encounter [facility] 02-04-2024 Procedure note [facility] 02-04-2024 Procedure note [facility] 02-04-2024 Note [facility] Medical Records Department [address] [place] [address] History Physical Exam 02/04/24 0647 MR#: [id number] Acct: [id number] Name: KELLIE DOZIER [place] Rep #: [id number] : 1945 78 From: Cullen Friend DO PCP: Dr. Santo Love MD Status:[facility] Location: [place] [address] History and Physical Date of Admission: 02/04/24 KELLIE DOZIER is a 78 F who presents to the office today for *[facility] hospitalization 2.9.24-2.11.24 for management of UGIB with anemia with use of Eliquis for A- fib. ? CT abd/pel IV only 12.11.23 fluid filled small bowel loops, ?enteritis; focal stranding of RLQ from cecum. ? EGD 12.12.23 oozing gastric ulcer, epinephrine/hemospray x5, heater probe; bleeding duodenal AVM. No specimens [facility] hospitalization 12.15.23-12.22.23 for management of GIB with [...] Appearance: average body habitus and well nourished [facility] Head: normal to inspection Ears: hearing grossly [...] Affect: normal affect Quality Reporting Tobacco Screening ([facility] 138) Smoking Status: Never smoker Assessment and Plan Assessment and Plan (1) GIB (gastrointestinal bleeding): Status: Resolved (2) Gastric ulcer: Status: Chronic Plan: 78 F who presented to [facility] ED on morning of 12/15/2023 with recurrent upper GI bleed. Patient was recently hospitalized at [facility] from 12/11 to 12/13 for an upper [...] ??? Hemoglobin droppe (more content not included)... [facility] 02-02-2024 History of Present illness Narrative Images from the original note were not included. [facility] NEW PATIENT CLINIC NOTE SERVICE [...] percutaneous left heart catheterization 06/24/2011 done at [place] Hydronephrosis, bilateral 12/16/2023 Hydroureter Lung nodule 01/2024 [...] Appointment with Zac. documented in this encounter [facility] 01-14-2024 Miscellaneous Notes Phoned patient and went [...] to follow it. documented in this encounter [facility] 01-12-2024 History of Present illness Narrative Radiology [...] PATIENT PRESENTS WITH AN IMPLANTABLE OR ATTACHED SUPERVISOR GLYCERIN: No RADIOLOGY DEPARTMENT: CT; Exam(s) Completed: Chest PERIPHERAL IV DATA: Not applicable SIGNED BY: RT Darrion(R) January 12, 2024 3:02 PM documented in this encounter [facility] 01-07-2024 Miscellaneous Notes Patient notified and verbalizes understanding. Labs are ok. Anemia is improving since her bleed.can add iron and recheck labs in one month documented in this encounter [facility] 01-06-2024 History of Present illness Narrative No chief complaint on file. HPI: Patient presents today for office visit for hospital follow up. HOSPITAL/ER FOLLOW UP: Reason for visit: upper GI bleed Which facility: admitted to [facility] x 2, ecf stay. Date of visit: [...] percutaneous left heart catheterization 06/24/11 done at [place] Malignant neoplasm of breast (female), unspecified site [...] Santo Love MD documented in this encounter [facility] 12-24-2023 History of Present illness Narrative Patient returned call. She says she is currently in [facility] for rehab. Says she was discharged to [facility] from [facility]. Will be there 2-3 weeks. Aline Qiu RN Left message for patient to call for a TCM call. documented in this encounter [facility] 12-22-2023 Note [facility] Medical Records Department [address] [place] [address] Discharge Summary 12/22/23 1330 MR#: [id number] Acct: [id number] Name: KELLIE DOZIER [place] Rep #: [id number] : 1945 78 From: Gomez Johansen MD PCP: Dr. Santo Love MD Status:DIS IN Location: [place] [address] Providers Date of Admission: 12/15/23 Primary Care Physician: Dr. Santo Love MD Consultations 12/15/23 07:45 Consult: Gastroenterology Routine Consulting Provider: [facility] Gastroenter[facility] Reason for Consult: recurrent GI bleed [...] is a 78 F who presented to [facility] ED on morning of 12/15/2023 with recurrent upper GI bleed. Patient was recently hospitalized at [facility] from 12/11 to 12/13 for an upper [...] No other acute concerns at this ti hi. Hospital Course: 1. Recurrent upper GI bleed [...] this abdominal pain (more content not included)... [facility] 12-22-2023 Consult note Note Date/Time December 22, 2023 10:25am [facility] Medical Records Department [address] [place] [address] Counseling Note - Pharmacy 12/22/23 1025 MR#: [id number] Acct: [id number] Name: KELLIE DOZIER Rep #:[id number] : 1945 78 From: Titus Madrid PCP: Dr. Santo Love MD Status:ADM I N Y Location: [place] [address] Pharmacy [place] Med Reconciliation Pharmacy Service has performed discharge [...] pellet CT,ext.release 300 mg PO QHS blood gijhtloy20/05/23 brimonidine 0.2 % eye drops 1 drp [...] Signature (if applicable): Date CC: ~ Signed [facility] Work Phone: 1(374) 358-499902-20-2024 Discharge summary Author Gomez Johansen [facility] December 22, 2023 10:14am Note Date/Time December 22, 2023 10:11am [facility] Medical Records Department [address] [place] [address] Transfer to [facility] Care MR#: [id number] Acct: [id number] Name: KELLIE DOZIER Rep #:[id number] : 1945 78 From: Gomez grove MD PCP: Dr. Santo Love MD Status:ADM I N Certification of patient admission REQUIRED AT TIME OF ADMISSION. I CERTIFY THAT POST-HOSPITAL ECF SERVICES ARE REQUIRED TO BE GIVEN ON AN IN-PATIENT BASIS BECAUSE OF THE ABOVE NAMED PATIENT'S NEED FOR [facility] CARE ON A CONTINUING BASIS FOR THE [...] in before D/C Order can be placed): [facility] 12/22/23 1014 <Electronically signed by Gomez Johansen MD> Cosigner Signature (if applicable): CC: Dr. Nitish Sood MD; Dr. Vincent Schwab DO; Dr. Santo Love MD ~ [facility] Work Phone: 1(544) 411-676002-19-2024 Progress note Author Gomez Johansen [facility] December 21, 2023 11:15am Note Date/Time December 21, 2023 11:15am [facility] Medical Records Department [address] [place] [address] Progress Note - Hospitalist 12/21/23 1113 MR#: [id number] Acct: [id number] Name: KELLIE DOZIER [place] Rep #:[id number] : 1945 78 From: Gomez grove MD PCP: Dr. Santo Love MD Status:ADM I N Location: [place] [address] Subjective Subjective Doing well, no issues overnight. [...] 73.8 H, Lymph % (Auto) 13.5 L, [place] % (Auto) 9.2, Eos % (Auto) 1.8, [...] DVT: SCDs Charges/Coding Visit Charges Inpatient E&M: 61380 Subs Hosp L2 12/21/23 1115 <Electronically signed by Gomez Johansen MD> Cosigner Signature (if applicable): CC: ~ Signed [facility] Work Phone: 1(994) 143-749602-18-2024 Progress note Author Gomez Johansen [facility] December 20, 2023 9:36am Note Date/Time December 20, 2023 9:28am [facility] Medical Records Department [address] [place] [address] Progress Note - Hospitalist 12/20/23 0925 MR#: [id number] Acct: [id number] Name: KELLIE DOZIER Rep #:[id number] : 1945 78 From: Gomez grove MD PCP: Dr. Santo Love MD Status:ADM I N Location: [place] [address] Subjective Subjective Hemoglobin is stable but now [...] 73.2 H, Lymph % (Auto) 13.0 L, [place] % (Auto) 9.4, Eos % (Auto) 2.2, [...] DVT: SCDs Charges/Coding Visit Charges Inpatient E&M: 99169 Subs Hosp L2 12/20/23 0936 <Electronically signed by Gomez Johansen MD> Cosigner Signature (if applicable): CC: ~ Signed [facility] Work Phone: 1(628) 818-854202-17-2024 Progress note Author Cullen Ferrer [facility] December 19, 2023 4:35pm Note Date/Time December 19, 2023 4:35pm [facility] Medical Records Department [address] [place] [address] Progress Note - GI 12/19/23 1634 MR#: [id number] Acct: [id number] Name: KELLIE DOZIER Rep #:[id number] : 1945 78 From: Cullen Ferrer DO PCP: Dr. Santo Love MD Status:ADM I N Location: [place] [address] Subjective Subjective Patient underwent repeat emergent upper [...] % (Auto) 69.4, Lymph % (Auto) 14.7 L,[place] % (Auto) 9.8, Eos % (Auto) 2.9, [...] is a 78-year-old female who presented to [facility] ED on 12/11/2023 with hematemesis. Findings: The [...] Cosigner Signature (if applicable): CC: ~ Signed [facility] Work Phone: 1([phone]) 609-752502-17-2024 Progress note Author Gomez Johansen [facility] December 19, 2023 10:44am Note Date/Time December 19, 2023 10:45am [facility] Medical Records Department [address] [place] [address] Progress Note - Hospitalist 12/19/23 1043 MR#: [id number] Acct: [id number] Name: KELLIE DOZIER [place] Rep #:[id number] : 1945 78 From: Gomez grove MD PCP: Dr. Santo Love MD Status:ADM I N Location: [place] [address] Subjective Subjective Hemoglobin has slight trend downward [...] % (Auto) 69.4, Lymph % (Auto) 14.7 L,[place] % (Auto) 9.8, Eos % (Auto) 2.9, [...] DVT: SCDs Charges/Coding Visit Charges Inpatient E&M: 49920 Subs Hosp L2 12/19/23 1044 <Electronically signed by Gomez Johansen MD> Cosigner Signature (if applicable): CC: ~ Signed [facility] Work Phone: 1(590) 718-415002-16-2024 Miscellaneous Notes* Telephone Encounter - Santo Love MD - 12/18/2023 2:54 PM EST Noted. Will follow * Telephone Encounter - Tierney White - 12/18/2023 2:39 PM EST She is still admitted into [facility]. Tierney White * Telephone Encounter - Santo Love MD - 12/18/2023 12:35 PM EST Xray of chest from [facility] shows nodule on right mid lung. Ct scan recommended when able. [facility] [id number] Progress note Author Gomez Johansen [facility] December 18, 2023 12:42pm Note Date/Time December 18, 2023 12:42pm [facility] Medical Records Department [address] [place] [address] Progress Note - Hospitalist 12/18/23 1241 MR#: [id number] Acct: [id number] Name: KELLIE DOZIER Rep #:[id number] : 1945 78 From: Gomez grove MD PCP: Dr. Santo Love MD Status:ADM I N Location: [place] [address] Subjective Subjective Doing well, no issues overnight. [...] % (Auto) Cancelled, Lymph % (Auto) Cancelled, [place] % (Auto) Cancelled, Eos % (Auto) Cancelled, [...] Tear DropCells Cancelled, Ovalocytes Cancelled, Stomatocytes Cancelled, Harrell-[place] Bodies Cancelled, Don Cells Cancelled, Bite Cells [...] % (Auto) 70.0, Lymph % (Auto) 12.3 L,[place] % (Auto) 9.9, Eos % (Auto) 2.9, [...] DVT: SCDs Charges/Coding Visit Charges Inpatient E&M: 94277 Subs Hosp L2 12/18/23 1242 <Electronically signed by Gomez Johansen MD> Cosigner Signature (if applicable): CC: ~ Signed [facility] Work Phone: 1(144) 254-765502-15-2024 Consult note Author Nitish Sood [facility] December 17, 2023 6:22pm Note Date/Time December 17, 2023 6:22pm [facility] Medical Records Department [address] [place] [address] Consultation - Urology 12/17/23 1821 MR#: [id number] Acct: [id number] Name: KELLIE DOZIER Rep #:[id number] : 1945 78 From: Nitish Sood MD PCP: Dr. Santo Love MD Status:ADM I N Location: [place] [address] HPI Consult Data Date of Consult: 12/17/23 [...] office for an appointment coming with questions. [facility] Medical History Atherosclerotic heart disease of [place] coronary artery without angina pectoris Essential hypertension [...] pellet CT,ext.release 300 mg PO QHS blood fhjzorhy14/05/23 [History Last Taken 12/14/23] brimonidine 0.2 % [...] 73.0 H, Lymph % (Auto) 13.8 L, [place] % (Auto) 7.3, Eos % (Auto) 2.7, [...] Schwab DO; Dr. Santo Love MD~ Signed [facility] Work Phone: 1(491) 770-472802-15-2024 Progress note Author Cullen Friend [facility] December 17, 2023 5:41pm Note Date/Time December 17, 2023 5:41pm [facility] Medical Records Department [address] [place] [address] Progress Note - GI 12/17/23 1739 MR#: [id number] Acct: [id number] Name: KELLIE DOZIER [place] Rep #:[id number] : 1945 78 From: Cullen Ferrer DO PCP: Dr. Santo Love MD Status:ADM I N Location: [place] [address] Subjective Subjective Patient underwent repeat emergent upper [...] 73.0 H, Lymph % (Auto) 13.8 L, [place] % (Auto) 7.3, Eos % (Auto) 2.7, [...] is a 78-year-old female who presented to [facility] ED on 12/11/2023 with hematemesis. Findings: The [...] Cosigner Signature (if applicable): CC: ~ Signed [facility] Work Phone: 1([phone]) 343-874702-15-2024 Progress note Author Gomez Johansen [facility] December 17, 2023 11:30am Note Date/Time December 17, 2023 11:30am [facility] Medical Records Department [address] [place] [address] Progress Note - Hospitalist 12/17/23 1127 MR#: [id number] Acct: [id number] Name: KELLIE DOZIER [place] Rep #:[id number] : 1945 78 From: Gomez grove MD PCP: Dr. Santo Love MD Status:ADM I N Location: [place] [address] Subjective Subjective Doing well, CT yesterday demonstrated [...] 73.0 H, Lymph % (Auto) 13.8 L, [place] % (Auto) 7.3, Eos % (Auto) 2.7, [...] DVT: SCDs Charges/Coding Visit Charges Inpatient E&M: 24819 Subs Hosp L2 12/17/23 1130 <Electronically signed by Gomez Johansen MD> Cosigner Signature (if applicable): CC: ~ Signed [facility] Work Phone: 1(565) 256-223502-15-2024 Progress note Author Gomez Johansen [facility] December 17, 2023 11:27am Note Date/Time December 16, 2023 6:59pm [facility] Medical Records Department [address] [place] [address] Progress Note - Hospitalist 12/16/23 1859 MR#: [id number] Acct: [id number] Name: KELLIE DOZIER Rep #:[id number] : 1945 78 From: Gomez grove MD PCP: Dr. Santo Love MD Status:ADM I N Location: [place] [address] Subjective Subjective Hemoglobin this morning was 6.8, [...] RDW Coeff of Emperatriz 15.9 H, Plt [id number], MPV 10.6, Sodium 141, Potassium 3.8, Chloride [...] DVT: SCDs Charges/Coding Visit Charges Inpatient E&M: 35137 Subs Hosp L2 12/17/23 1127 <Electronically signed by Gomez Johansen MD> Cosigner Signature (if applicable): CC: ~ Signed [facility] Work Phone: 1(257) 997-752402-14-2024 Progress note Author Cullen Ferrer [facility] December 16, 2023 5:15pm Note Date/Time December 16, 2023 5:14pm [facility] Medical Records Department [address] [place] [address] Progress Note - GI 12/16/23 1712 MR#: [id number] Acct: [id number] Name: KELLIE DOZIER Rep #:[id number] : 1945 78 From: Cullen Ferrer DO PCP: Dr. Santo Love MD Status:ADM I N Location: [place] [address] Subjective Subjective Patient underwent emergent endoscopy yesterday. [...] RDW Coeff of Emperatriz 15.9 H, Plt Fieqq180, MPV 10.6, Sodium 141, Potassium 3.8, Chloride [...] is a 78-year-old female who presented to [facility] ED on 12/11/2023 with hematemesis. Findings: The [...] addressed endoscopically. Charges/Coding Visit Charges Inpatient E&M: 25520 Subs Hosp 12/16/23 8804 <Electronically signed by Cullen Friend DO> Cosigner Signature (if applicable): CC: ~ Signed [facility] Work Phone: 1(397) 117-812902-13-2024 History and physical note Author Tahir Rivas [facility] December 15, 2023 4:30pm Note Date/Time December 15, 2023 11:37am [facility] Medical Records Department [facility] [place] [address] H&P Exam - Hospitalist 12/15/23 1136 MR#: [id number] Acct: [id number] Name: KELLIE DOZIER Rep #:[id number] : 1945 78 From: Tahir ontiveros DO PCP: Dr. Santo Love MD Status:ADM I N Location: [place] [address] HPI - General General Date of Admission: 12/15/23 Date of Service: 12/15/23 Chief Complaint: Recurrent upper GI bleed HPI Narrative KELLIE DOZIER, is a 78 F who presented to [facility] ED on morning of 12/15/2023 with recurrent upper GI bleed. Patient was recently hospitalized at [facility] from 12/11 to 12/13 for an upper [...] No other acute concerns at this time. [facility] Medical History Atherosclerotic heart disease of [place] coronary artery without angina pectoris Essential hypertension [...] pellet CT,ext.release 300 mg PO QHS blood sxlbaizz32/05/23 [History Last Taken 12/14/23] brimonidine 0.2 % [...] 80.0 H, Lymph % (Auto) 12.6 L, [place] % (Auto) 5.6, Eos % (Auto) 0.0, [...] is a 78-year-old female who presented to [facility] on 12/15/2023 with a recurrent upper GI [...] 55 minutes. Charges/Coding Visit Charges Inpatient E&M: 41028 Init Hosp L2 12/15/23 1630 <Electronically signed by Tahir Rivas DO> Cosigner Signature (if applicable): CC: Dr. Tahir Rivas DO; Dr. Santo Love MD~ Signed [facility] Work Phone: 1(784) 719-324802-13-[address] [facility] 12-15-[address] [facility]02-13-2024 History of Present illness Narrative* Eli Lyons Ma - 12/15/2023 10:27 AM EST Patient is currently readmitted to [facility]. Eli Lyons Ma * Eli Lyons Ma - 12/14/2023 10:23 AM EST TRANSITION CARE MANAGEMENT (TCM) INITIAL CONTACT Securities Settlement Processor Outreach Provider Action/FYI: Pt is to follow [...] might be hidden SUMMARY: -Pt discharged from [facility] on 12/13/23. -Admitted for: GI BLEED Do you have a hospital follow up appointment with your PCP? MEDICATIONS: Many patients have questions or concerns about their medications once they are home. Were you prescribed any new medications? Yes If yes, what are those medications? PANTOPRAZOLE 40 MG BID [facility] Discharge summary Author Panchito Zavaleta [facility] December 15, 2023 7:13am Note Date/Time December 15, 2023 5:53am [facility] Medical Records Department [address] [place] [address] Emergency Department Summary 12/15/23 MR#: [id number] Acct: [id number] Name: KELLIE DOZIER Rep #:[id number] : [...] sublingual Zofran but she vomited it up. [facility] Medical History Atherosclerotic heart disease of [place] coronary artery without angina pectoris Essential hypertension [...] 80.0 H Lymph % (Auto) 12.6 L [place] % (Auto) 5.6 Eos % (Auto) 0.0 [...] min), Including time spent:, Discussing w/Patient &/or Family/Hoisting Pile Driving Engineer, Discussing w/Consultants, Arranging Admission or Transfer and Performing Direct Patient Care at Bedside Discharge Plan Dx/Rx/DC Orders Clinical Impression: Acute blood loss anemia, UGIB (upper gastrointestinal bleed), On apixaban therapy, Pyloric channel ulcer Disposition Disposition: Acute Care Hospital [facility] What to do if you have Problems For any increased pain, shortness of breath, bleeding, nausea or vomiting, chestpain, or any unexpected problems, contact your Primary Care Provider. Call [facility] ([phone]) or report to the closest Emergency Room. Call 911 if necessary. 12/15/23 0713 <Electronically signed by Panchito Zavaleta MD> Cosigner Signature (if applicable): CC: Dr. Santo Love MD ~ Signed [facility] Work Phone: 1(202) 453-729702-11-2024 Discharge summary Author Tahir [facility] December 13, 2023 3:42pm Note Date/Time December 13, 2023 3:32pm [facility] Medical Records Department [address] [place] [address] Discharge Summary 12/13/23 1528 MR#: [id number] Acct: [id number] Name: KELLIE DOZIER Rep #:[id number] : 1945 78 From: Tahir ontiveros DO PCP: Dr. Santo Love MD Status:ADM I N Location: [place] [address] Providers Date of Admission: 12/11/23 Date of Discharge: 12/13/23 Primary Care Physician: Dr. Santo Love MD Consultations 12/11/23 12:20 Consult: Gastroenterology Routine Consulting Provider: [facility] Reason for Consult: GI bleed EMERGENT [...] is a 78-year-old female who presented to [facility] ED on 12/11/2023 with hematemesis. Hospital course [...] Self Care Charges/Coding Visit Charges Inpatient E&M: 72559 Disch Hosp >30min 12/13/23 1542 <Electronically signed by Tahir Rivas DO> Cosigner Signature (if applicable): CC: Dr. Tahir Rivas DO; Dr. Santo Love MD~ Signed [facility] Work Phone: 1(224) 377-389202-11-2024 Discharge summary Author Tahir Rivas [facility] December 13, 2023 3:27pm Note Date/Time December 13, 2023 3:26pm [facility] Medical Records Department [address] [place] [address] Instructions for Home/Discharge Instructions 12/13/23 1525 MR#: [id number] Acct: [id number] Name: KELLIE DOZIER [place] Rep #:[id number] [...] CC: Dr. Santo Love MD ~ Signed [facility] Work Phone: 1(461) 960-661202-11-2024 [facility] Medical Records Department [address] [place] [address] Discharge Summary 12/13/23 1528 MR#: [id number] Acct: [id number] Name: KELLIE DOZIER Rep #: [id number] : 1945 78 From: Tahir Rivas DO PCP: Dr. Santo Love MD Status:ADM IN Location: [facility] [id number] Providers Date of Admission: 12/11/23 Date of [...] is a 78-year-old female who presented to [facility] ED on 12/11/2023 with hematemesis. Hospital course [...] average body habitus Constitu (more content not included)...[facility]02-10-2024 Progress note Author Tahir Rivas [facility] December 12, 2023 2:31pm Note Date/Time December 12, 2023 12:29pm [facility] Medical Records Department [address] [place] [address] Progress Note - Hospitalist 12/12/23 1229 MR#: [id number] Acct: [id number] Name: KELLIE DOZIER [place] Rep #:[id number] : 1945 78 From: Tahir ontiveros DO PCP: Dr. Santo Love MD Status:ADM I N Location: [place] [address] Reason for Visit Reason for Visit: Diagnoses [...] is a 78-year-old female who presented to [facility] ED on 12/11/2023 with hematemesis. 1. Hematemesis, [...] 35 minutes. Charges/Coding Visit Charges Inpatient E&M: 79611 Subs Hosp L2 12/12/23 1431 <Electronically signed by Tahir Rivas DO> Cosigner Signature (if applicable): CC: ~ Signed [facility] Work Phone: [phone] [id number] Consult note Author Cullen Ferrer [facility] December 11, 2023 8:37pm Note Date/Time December 11, 2023 8 :37pm [facility] Medical Records Department [address] [place] [address] Consultation - GI 12/11/232028 MR#: [id number] Acct: [id number] Name: KELLIE DOZIER MARIETTA Rep #:[id number] : 1945 78 From: Cullen Ferrer DO PCP: Dr. Santo Love MD Status:ADM I N Location: [place] [id number]- [id number] HPI Consult Data Date of Consult: [...] injury. 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 Last dose was a little more than 24 hours ago has not taken her morning medications due to vomiting this morning Her last hgb was 12 severall years ago prior to being admitted today. Her hgb today is 10.2. [facility] Medical History Atherosclerotic heart disease of [place] coronary artery without angina pectoris Essential hypertension [...] 86.0 H, Lymph % (Auto) 7.0 L, [place] % (Auto) 6.2, Eos % (Auto) 0.1, [...] Sl. Cloudy, Urine pH 5.0, Ur Specific [place] 1.015, Urine Protein 15 H, Urine Glucose [...] is a 78-year-old female who presented to [facility] ED on 12/11/2023 with hematemesis. Upper GI [...] past midnight. Charges/Coding Visit Charges Inpatient E&M: 61877 Init Hosp L3 12/11/232036 <Electronically signed by Cullen Ferrer DO> Cosigner Signature (if applicable): CC: Dr. Santo Love MD~ Signed [facility] Work Phone: 1(223) 252-219802-09-2024 Discharge summary Author Panchito Zavaleta [facility] December 11, 2023 6:37pm Note Date/Time December 11, 2023 8 :27am [facility] Medical Records Department [address] [place] [address] Emergency Department Summary 12/11/23 MR#: [id number] Acct: [id number] Name: KELLIE DOZIER MARIETTA Rep #:[id number] : 1945 78 From: Panchito Zavaleta MD PCP: Dr. Santo Love MD Status:ADM I N Location: [place] [address] HPI HPI - GI History of Present [...] injury. 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 Last dose was a little more than 24 hours ago has not taken her morning medications due to vomiting this morning. [facility] Medical History Atherosclerotic heart disease of [place] coronary artery without angina pectoris Essential hypertension [...] 86.0 H Lymph % (Auto) 7.0 L [place] % (Auto) 6.2 Eos % (Auto) 0.1 [...] Sl. Cloudy Urine pH 5.0 Ur Specific [place] 1.015 Urine Protein 15 H Urine Glucose [...] exam is recommended if indicated. Electronically Signed: rByan Belle MD at 10:05 EST , Chest [...] Management Discussion w/another healthcare provider: Hospitalist and Home Health Scheduler (GI friend) Discharge Plan Dx/Rx/DC Orders Clinical Impression: Blunt traumatic injury of vvmotby-xzvuunbg-yqisoa region, Contusion of rib on right side, Paroxysmal atrial fibrillation, Acute blood loss anemia, UGIB (upper gastrointestinal bleed), On apixaban therapy Disposition Disposition: Acute Care Hospital [facility] What to do if you have Problems For any increased pain, shortness of breath, bleeding, nausea or vomiting, chest pain, or any unexpected problems, contact your Primary Care Provider. Call [facility] ([phone]) or report to the closest Emergency Room. Call 911 if necessary. 12/11/23 6136 <Electronically signed by Panchito Zavaleta MD> Cosigner Signature (if applicable): CC: Dr. Santo Love MD ~ Signed [facility] Work Phone: 1(878) 987-537502-09-2024 History and physical note Author Tahir Rivas [facility] December 11, 2023 6:08pm Note Date/Time December 11, 2023 1 1:40am [facility] Medical Records Department [address] [place] [address] H&P Exam - Hospitalist 12/11/23 1137 MR#: [id number] Acct: [id number] Name: KELLIE DOZIER Rep #:[id number] : 1945 78 From: Tahir Camarillo llerick DO PCP: Dr. Santo Love MD Status:ADM I N Location: [place] [address] HPI - General General Date of Admission: 12/11/23 Date of Service: 12/11/23 Chief Complaint: Hematemesis HPI Narrative KELLIE DOZIER, is a 78 F who presented to [facility] ED on 12/11/2023 with hematemesis. Patient seen [...] chills. No other acute concerns this time. [facility] Medical History Atherosclerotic heart disease of [place] coronary artery without angina pectoris Essential hypertension [...] 86.0 H, Lymph % (Auto) 7.0 L, [place] % (Auto) 6.2, Eos % (Auto) 0.1, [...] Sl. Cloudy, Urine pH 5.0, Ur Specific [place] 1.015, Urine Protein 15 H, Urine Glucose [...] is a 78-year-old female who presented to [facility] ED on 12/11/2023 with hematemesis. 1. Hematemesis, [...] 55 minutes. Charges/Coding Visit Charges Inpatient E&M: 36443 Init Hosp L2 12/11/23 1808 <Electronically signed by Tahir Rivas DO> Cosigner Signature (if applicable): CC: Dr. Tahir Rivas DO; Dr. Santo Love MD~ Signed [facility] Work Phone: 1(572) 210-699711-29-2023 Miscellaneous Notes* Telephone Encounter - [place] Lazara Mosley - 09/30/2023 8:36 AM EST [...] notify patient. Lazara Mosley documented in this encounterMarietta [facility]09-20-2023 Miscellaneous Notes* Telephone Encounter - Herlinda Dickinson MSW - 07/22/2023 11:10 AM EDT Sw called Sw and noted that she did not receive [employer] application for Trulicity. Sw noted that she will mail application again to patient to work on completing. Patient notes that she will work on completing and bring in to Dr. Love office when complete. documented in this encounterMarietta Osteopathic Clinic08-31-2023 History of Present illness Narrative* Dionna Shay [...] 02, 2023 8:28 AM documented in this encounterMarietta Osteopathic Clinic08-28-2023 Miscellaneous Notes* Telephone Encounter - Brittney Hinton [...] notify patient. Dafne Wilson documented in this encounterMarietta [facility] Clinic07-07-2023 Miscellaneous Notes* Telephone Encounter - Tierney White - 05/08/2023 9:56 AM EDT Kellie informed and verbalized understanding. Tierney White * Telephone Encounter - Santo Love MD - 05/08/2023 9:47 AM EDT Labs are up. Increase trulicity. Recheck a1c in three months. Watch diet. documented in this encounterMarietta Osteopathic Clinic07-06-2023 History of Present illness Narrative* Santo Love [...] bouts of vertigo. No palpitations No syncope Pedicurist edema Uses Meclizine for occasional dizziness. Last episode of vertigo was on 03/24/23. Only lasts for a day and has happened twice. No neuro issues. Red flags for re- assessment reviewed with patient in detail. Consider vestibular therapy. HLD: No myalgias Follows with Cardiology. Still on Eliquis and Verapamil. Having eyelid lift surgery on 05/28/[address] Richardson at [facility]. Component Latest Ref Rng & Units [...] percutaneous left heart catheterization 06/24/11 [place] Malignant neoplasm of breast (female), unspecified site 1998 Breast cancer right OBESITY 12/16/2005 Osteoarthritis of right knee Osteopenia 05/21/2010 Paroxysmal SVT (supraventricular tachycardia) ([facility]) Dr Marcelo Pure hypercholesterolemia TUBERCULIN TEST REACTION [...] BASIC METABOLIC PNL - HGB A1C 6. 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 - ICD9: V58.61, ICD10: Z79.01 - stable 7. Osteopenia, unspecified location - ICD9: 733.90, ICD10: M85.80 Up to date on bone density. 8. Malignant neoplasm of female breast, unspecified estrogen receptor status, unspecified laterality, unspecified site of breast (HCC) - ICD9: 174.9, ICD10: C50.919 - mammogram Santo Love MD documented in this encounterMarietta Osteopathic Clinic05-05-2023 Miscellaneous Notes* Telephone Encounter - Swati Hall [...] advise. Swati Hall LPN documented in this encounterMarietta Osteopathic Clinic05-05-2023 Miscellaneous Notes* Telephone Encounter - Gail Kem - 03/06/2023 12:03 PM EDT Patient reviewed for Population Health Medication Adherence Pended the following prescription(s) for review. Requested Prescriptions Pending Prescriptions Disp Refills lisinopril (ZESTRIL) 40 mg tablet 90 tablet 3 Sig: Take 0.5 tablets by mouth once daily. Future Appointments Date Time Provider Department Center 05/07/2023 11:00 AM [facility] Please review and refill if appropriate. Thank you. Gail Brownlee March 06, 2023 12:03 PM documented in this encounterMarietta Oste[facility] Clinic03-30-2023 History of Present illness Narrative* Santo Love [...] percutaneous left heart catheterization 06/24/11 done [place] Malignant neoplasm of breast (female), unspecified site 1998 Breast cancer right OBESITY 12/16/2005 Osteoarthritis of right knee Osteopenia 05/21/2010 Paroxysmal SVT (supraventricular tachycardia) ([facility]) Dr Marcelo Pure hypercholesterolemia TUBERCULIN TEST REACTION [...] <130/80 3. Atherosclerosis of coronary artery of [place] heart without angina pectoris, unspecified vessel or [...] date. Santo Love MD documented in this encounterMarietta [facility]opathic Clinic03-29-2023 Miscellaneous Notes* Telephone Encounter - SALMA Thomas - 01/28/2023 12:10 PM EDT Rambo took below applications up to ADRIAN[address] Mag[address] office. * Telephone Encounter - SALMA Thomas - 01/22/2023 11:07 AM EDT Patient spoke with Rambo regarding [employer]-Trulicity and Basaglar. Patient reports that she will be in for office visit on 01/29/23 so could cone picker forms at that timeto start working on forms. Patient reports that she is also keeping an eye on how much she is spending for [employer] for Eliquis. [employer] has a 3% spend out on prescriptions. Rambo will provide Dr. Love office with [employer] and [employer] applications along with consent for release forms. * Telephone Encounter - SALMA Thomas - 01/21/2023 1:24 PM EDT Rambo left patient message to call Sw back in regards to [employer] PAP for Trulicity and Basaglar. Rambo received note that states patient yearly application ends 03/25/23. Rambo will talk with patient about reapplying to program for above medications. documented in this encounterMarietta [facility] Clinic03-17-2023 Miscellaneous Notes* Telephone Encounter - Genet Mosley - 01/16/2023 12:12 PM EDT Pharmacy verified in [facility] Patient has been identified by name and [...] advise. Genet Krishna Pss documented in this encounterMarietta Osteopathic Clinic03-02-2023 Instructions* Patient Instructions* Talya Rodriguez PA-C - [...] you. You may also be given a [place]-Hallpike position test. You start the [place]-Hallpike test [...] about half-way. (Imagine that you are looking atthe head [...] of hearing or severe headache. Published by [employer]. This content is reviewed periodically and is subject to change as new health information becomes available. The information is intended to inform and educate and is not a replacement for medical evaluation, advice, diagnosis or treatment by a healthcare professional. Developed by [employer] Copyright 2007 [employer] and/or one of its subsidiaries. All Rights Reserved. Special Instructions: See information from pharmacy on Zofran and meclizine. Copyright [employer] 2007 Adult Health Advisor Copyright 2007 [employer] All rights reserved. - www.[employer] documented in this encounterMarietta Osteopathic Clinic03-02-2023 History of Present illness Narrative* Talya Rodriguez [...] fibrillation (hcc) Atherosclerosis of coronary artery of [place] heart without angina pectoris, unspecified vessel or [...] Abs Lymph 1.00 - 4.00 k/uL 2.03 [place]% % 9.9 Abs [place] <0.87 k/uL 0.78 Eosin% % 1.8 Abs [...] percutaneous left heart catheterization 06/24/11 done [place] Malignant neoplasm of breast (female), unspecified site 1998 Breast cancer right OBESITY 12/16/2005 Osteoarthritis of right knee Osteopenia 05/21/2010 Paroxysmal SVT (supraventricular tachycardia) ([facility]) Dr Marcelo Pure hypercholesterolemia TUBERCULIN TEST REACTION [...] rectum repair COLON SURGERY HX COLONOSCOPY 2006 [facility] COLONOSCOPY 09/12/2014 no polyps, repeat due [...] (supraventricular tachycardia) (HCC) 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 Atherosclerosis of coronary artery of [place] heart without angina pectoris, unspecified vessel or [...] medications Talya Rodriguez PA-C documented in this encounterMarietta Osteopathic Clinic01-26-2023 Miscellaneous Notes* Telephone Encounter - Lisa Barber RN - 11/27/2022 12:36 PM EST Pt called and is notified of providers message and instructions. Pt voices understanding. Pt schedules 12/25/22 with [place] nurse. Lisa Barber RN * Telephone Encounter [...] PCP. Franca Atwood LPN documented in this encounterMarietta Osteopathic Clinic01-26-2023 History of Present illness Narrative* Franca Atwood [...] PCP. Franca Atwood LPN documented in this encounterMarietta Osteopathic Clinic01-16-2023 Miscellaneous Notes* Telephone Encounter - Yas Liu [...] and advise. Genet Choi documented in this encounterMarietta Osteopathic Clinic01-10-2023 Miscellaneous Notes* Telephone Encounter - Lisa Barber RN - 11/11/2022 12:57 PM EST Pt called and is notified of providers message and instructions. Pt voices understanding. She states her BP this morning was 151/65. Pt was set up with BP check with [place] nurse on 11/20/22. Lisa Barber RN * [...] she to resume HCTZ? documented in this encounterMarietta Osteopathic Clinic12-02-2022 Miscellaneous Notes* Telephone Encounter - Leonela Beckman [...] bp in one month documented in this encounterMarietta Osteopathic Clinic12-01-2022 Instructions* Patient Instructions* Santo Love MD - 10/02/2022 9:28 AM EST documented in this encounterMarietta Osteopathic Clinic12-01-2022 History of Present illness Narrative* Santo Love [...] gi upset: Yes Still seeing Cardiology at [place]. No nitro. No unusual bleeding or bruising [...] percutaneous left heart catheterization 06/24/11 done [place] Malignant neoplasm of breast (female), unspecified site [...] ASSESSMENT/PLAN: 1. Atherosclerosis of coronary artery of [place] heart without angina pectoris, unspecified vessel or [...] C50.919 - call if an issues. 11. 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 - ICD9: [...] six months and prn. documented in this encounterMarietta Osteopathic Clinic11-15-2022 Miscellaneous Notes* Telephone Encounter - Griselda Farley [...] notify patient. Griselda Farley documented in this encounterMarietta Osteopathic Clinic09-16-2022 Miscellaneous Notes* Telephone Encounter - Lisa Barber [...] PCP. Franca Atwood LPN documented in this encounterMarietta [facility] Clinic09-15-2022 History of Present illness Narrative* Franca Atwood [...] PCP. Franca Atwood LPN documented in this encounterMarietta Osteopathic Clinic08-26-2022 Instructions* Patient Instructions* Talya Rodriguez PA-C - 06/27/2022 11:36 AM EDT Cut Lisinopril in half = 20mg daily instead of 40mg Push fluids, eat a little salt documented in this encounterMarietta Osteopathic Clinic08-26-2022 History of Present illness Narrative* Talya Rodriguez PA-C - 06/27/2022 10:20 AM EDT Images from the original note were not included. 77 year old female with c/o here for follow up Doing well. Nonrheumatic mitral valve regurgitation (primary encounter diagnosis) Persistent atrial fibrillation (hcc) Paroxysmal svt (supraventricular tachycardia) (hcc) 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 Atherosclerosis of coronary artery of [place] heart without angina pectoris, unspecified vessel or [...] was preserved with LVEF of 70% 05/11/2009 [facility] transthoracic echo: LV size plus LV SF [...] percutaneous left heart catheterization 06/24/11 done [place] Malignant neoplasm of breast (female), unspecified site 1998 Breast cancer right OBESITY 12/16/2005 Osteoarthritis of right knee Osteopenia 05/21/2010 Paroxysmal SVT (supraventricular tachycardia) ([facility]) Dr Marcelo Pure hypercholesterolemia TUBERCULIN TEST REACTION [...] Knee Constipation Benign Neoplasm of Colon Diverticulitis 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 Persistent Atrial [...] 424.0, ICD10: I34.0 (primary diagnosis) Follows with [facility], stable 2. Persistent atrial fibrillation (HCC) - ICD9: 427.31, ICD10: I48.19 Controlled rate. Low BP today without sx. - COMP METABOLIC PANEL - ECG COMPLETE 3. Paroxysmal SVT (supraventricular tachycardia) (HCC) - ICD9: 427.0, ICD10: I47.1 controlled 4. 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 - ICD9: V58.61, ICD10: Z79.01 5. Atherosclerosis of coronary artery of [place] heart without angina pectoris, unspecified vessel or [...] INTACT BLD - COMP METABOLIC PANEL Talya Rodriugez PA-C documented in this encounterMarietta Osteopathic Clinic07-29-2022 Miscellaneous Notes* Letter - Mammography Coordinator - 05/30/2022 9:59 AM EDT May 30, 2022 PID: [id number] Kellie Dozier [address] [place] [address] Dear Ms. Dozier, We are pleased to [...] report will be [facility] on [facility] as part of your permanent medical record and are available for your continuing care. Thank you for allowing us to help in meeting your health care needs. Sincerely, Dr. Ramirez Interpreting Radiologist [facility] (Normal over 40) documented in this encounterMarietta Osteopathic Clinic07-29-2022 History of Present illness Narrative* Alyx Abel [...] 30, 2022 9:21 AM documented in this encounterMarietta Osteopathic Clinic07-06-2022 History of Present illness Narrative* RT Reta(R) [...] 07, 2022 9:31 AM documented in this [facility]06-21-2022 Miscellaneous Notes* Telephone Encounter - Juliana [...] advise, Nicole Arriaga RN documented in this encounterMarietta Osteopathic Clinic05-26-2022 Miscellaneous Notes* Telephone Encounter - SALMA Thomas - 03/27/2022 11:26 AM EDT Rambo now has received fax that states [employer] company did receive application. Rambo spoke with patient and she notes that company told her they were missing part of her portion of application. Rambo will refax forms to [employer] P[employer] for Eliquis. * Telephone Encounter - SALMA Thomas - 03/26/2022 3:42 PM EDT Rambo called [employer] to check and see if patient Eliquis application had been received. Rep states that no, it has not been received. Rambo will work on re-faxing forms. * Telephone Encounter - SALMA Thomas - 03/25/2022 12:13 PM EDT Patient called Rambo in regards to her prescription assistance for Eliquis. Rambo noted [employer] application had been sent to [facility] on 03/19/22 for Eliquis. Sw will check and make sure that it is being processed. Rambo noted that Dr. Love office received [employer] application approval for patient basaglar and trulicity. documented in this encounterMarietta Osteopathic Clinic05-24-2022 Miscellaneous Notes* Telephone Encounter - Eli Lyons Ma - 03/25/2022 10:48 AM EDT Fax received from [facility]. Pt is approved for Trulicity and basaglar for 12 months. Eli Lyons Ma documented in this encounterMarietta Osteopathic Clinic05-18-2022 Miscellaneous Notes* Telephone Encounter - Maria Isabel Troncoso LPN - 03/19/2022 12:17 PM EDT Faxed forms. Will return to . * Telephone Encounter - Maria Isabel Troncoso LPN - 03/19/2022 11:[address] Love's desk to sign. Clinical portion completed. * Telephone Encounter - SALMA Thomas - 03/19/2022 9:11 AM EDT [employer]-Eliquis and [employer]-Trulicity and Basaglar patient assistance forms. Rambo will take forms to Dr. Love office to complete prescriptions on forms and then fax forms to companies. [employer] fax#[phone] [employer] fax#[phone] documented in this encounterMarietta Osteopathic Clinic04-26-2022 Miscellaneous Notes* Telephone Encounter - SALMA Thomas - 02/25/2022 9:11 AM EDT Patient called Rambo to request that Sw [facility]. Sw noted that she would patient the application forms. Patient reports that she will work on forms and send back to Dr. Kate burton for completion. documented in this encounterMarietta Osteopathic Clinic04-14-2022 Miscellaneous Notes* Telephone Encounter - Racquel Haddad [...] patient. Racquel Haddad Pss documented in this encounterMarietta Osteopathic Clinic05-25-2018 History of Past illness Narrative* Problem Noted [...] of this encounter (statuses as of 02/13/2022) [facility] of Past illness Narrative* Problem Noted [...] of this encounter (statuses as of 02/25/2022) [facility] of Past illness Narrative* Problem Noted [...] of this encounter (statuses as of 03/19/2022) [facility] of [facility] illness Narrative* Problem Noted [...] of this encounter (statuses as of 03/25/2022) [facility] of [facility] illness Narrative* Problem Noted [...] of this encounter (statuses as of 03/27/2022) [facility] of [facility] illness Narrative* Problem Noted [...] of this encounter (statuses as of 04/22/2022) [facility] of [facility] illness Narrative* Problem Noted [...] of this encounter (statuses as of 05/08/2022) [facility] of Past illness Narrative* Problem Noted [...] of this encounter (statuses as of 05/31/2022) [facility] of [facility] illness Narrative* Problem Noted [...] of this encounter (statuses as of 06/03/2022) [facility] of [facility] illness Narrative* Problem Noted [...] of this encounter (statuses as of 06/27/2022) [facility] of [facility] Narrative* Problem Noted [...] of this encounter (statuses as of 07/17/2022) [facility] of [facility] illness Narrative* Problem Noted [...] of this encounter (statuses as of 07/18/2022) [facility] Narrative* Problem Noted [...] of this encounter (statuses as of 09/16/2022) [facility] Narrative* Problem Noted [...] of this encounter (statuses as of 10/02/2022) [facility] Narrative* Problem Noted [...] of this encounter (statuses as of 10/03/2022) [facility] Narrative* Problem Noted [...] of this encounter (statuses as of 11/17/2022) [facility] Narrative* Problem Noted [...] of this encounter (statuses as of 11/27/2022) [facility] Narrative* Problem Noted [...] of this encounter (statuses as of 12/26/2022) [facility] Narrative* Problem Noted [...] of this encounter (statuses as of 01/01/2023) [facility] Narrative* Problem Noted [...] of this encounter (statuses as of 01/16/2023) [facility] Narrative* Problem Noted [...] of this encounter (statuses as of 01/28/2023) [facility] Narrative* Problem Noted [...] of this encounter (statuses as of 01/29/2023) [facility] Narrative* Problem Noted [...] of this encounter (statuses as of 03/06/2023) [facility] Narrative* Problem Noted [...] of this encounter (statuses as of 05/07/2023) [facility] Past illness Narrative* Problem Noted [...] of this encounter (statuses as of 05/08/2023) [facility] History of Past illness Narrative* Problem Noted [...] of this encounter (statuses as of 06/29/2023) [facility] History of Past illness Narrative* Problem Noted [...] of this encounter (statuses as of 07/22/2023) [facility] History of Past illness Narrative* Problem Noted [...] of this encounter (statuses as of 09/06/2023) [facility] History of Past illness Narrative* Problem Noted [...] of this encounter (statuses as of 09/30/2023) [facility] History of Past illness Narrative* Problem Noted [...] of this encounter (statuses as of 12/15/2023) [facility] History of Past illness Narrative* Problem Noted [...] of this encounter (statuses as of 12/24/2023) [facility] History of Past illness Narrative* Problem Noted [...] of this encounter (statuses as of 12/24/2023) [facility] History of Past illness Narrative* Problem Noted [...] of this encounter (statuses as of 01/06/2024) [facility] History of Past illness Narrative* Problem Noted [...] of this encounter (statuses as of 01/07/2024) [facility] History of Past illness Narrative* Problem Noted [...] of this encounter (statuses as of 01/13/2024) [facility] History of Past illness Narrative* Problem Noted [...] of this encounter (statuses as of 01/14/2024) [facility] History of Past illness Narrative* Problem Noted [...] of this encounter (statuses as of 02/03/2024) [facility] History of Past illness Narrative* Problem Noted [...] of this encounter (statuses as of 02/08/2024) [facility] History of Past illness Narrative* Problem Noted [...] of this encounter (statuses as of 02/19/2024) [facility] History of Past illness Narrative* Problem Noted [...] of this encounter (statuses as of 02/05/2024) [facility] Panchito Zavaleta [facility] December 15, 2023 7:13am Note Date/Time December 15, 2023 5:53am [facility] Medical Records Department [address] [place] [address] Emergency Department Summary 12/15/23 MR#: [id number] Acct: [id number] Name: KELLIE DOZIER [place] Rep #:[id number] [...] sublingual Zofran but she vomited it up. 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 Call [facility] ([phone]) or report to the closest Emergency Room. Call 911 if necessary. 12/15/23712 <Electronically signed by Panchito Zavaleta MD> Cosigner Signature (if applicable): CC: Dr. Santo Love MD ~ Signed [facility] Work Phone: Evaluation note* Diagnosis Essential hypertension Unspecified essential hypertension [facility] Diagnosis Screening breast examination- Primary Breast screening, unspecified [facility]* Diagnosis Postmenopausal Asymptomatic postmenopausal status (age-related) (natural) [facility] Diagnosis Screening breast examination Breast screening, unspecified [facility]* Diagnosis Nonrheumatic mitral valve regurgitation- Primary Persistent atrial fibrillation (HCC) Atrial fibrillation Paroxysmal SVT (supraventricular tachycardia) (HCC) 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 Long-term (current) use of 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 Atherosclerosis of coronary artery of [place] heart without angina pectoris, unspecified vessel or [...] of colonic polyps [facility]* Diagnosis Essential hypertension- Primary Unspecified essential hypertension documented in this encounter [facility] note* Diagnosis Atherosclerosis of coronary artery of [place] heart without angina pectoris, unspecified vessel or [...] unspecified laterality, unspecified site of breast (HCC) 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 Long-term (current) use of 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 Osteopenia, unspecified location Hypercalcemia Need for hepatitis C screening test Special screening examination for other specified viral diseases [facility]* Diagnosis Hypercalcemia- Primary [facility]* Diagnosis Essential hypertension- Primary Unspecified essential hypertension documented in this encounter [facility] note* Diagnosis Paroxysmal SVT (supraventricular tachycardia) (HCC)- Primary 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 tachycardia Persistent atrial fibrillation (HCC) Atrial fibrillation Atherosclerosis of coronary artery of [place] heart without angina pectoris, unspecified vessel or lesion type Essential hypertension Unspecified essential hypertension Mixed hyperlipidemia Nonrheumatic mitral valve regurgitation BPPV (benign paroxysmal positional vertigo), unspecified laterality Type 2 diabetes mellitus without complication, without long-term current use of insulin (HCC) documented in this encounter [facility] note* Diagnosis Vertigo- Primary Dizziness and giddiness Essential hypertension Unspecified essential hypertension Atherosclerosis of coronary artery of [place] heart without angina pectoris, unspecified vessel or lesion type Persistent atrial fibrillation (HCC) Atrial fibrillation Paroxysmal SVT (supraventricular tachycardia) (HCC) 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 tachycardia Type 2 diabetes mellitus without complication, without long-term current use of insulin (HCC) Malignant neoplasm of female breast, unspecified estrogen receptor status, unspecified laterality, unspecified site of breast (HCC) Osteopenia, unspecified location documented [facility]* Diagnosis Essential hypertension Unspecified essential hypertension documented in this encounter [facility] note* Diagnosis Essential hypertension- Primary Unspecified essential hypertension Mixed hyperlipidemia Paroxysmal SVT (supraventricular tachycardia) (HCC) 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 tachycardia Persistent atrial fibrillation (HCC) Atrial fibrillation Type 2 diabetes mellitus without complication, without long-term current use of insulin (HCC) 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 Long-term (current) use of 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 Osteopenia, unspecified location Malignant neoplasm of female breast, unspecified estrogen receptor status, unspecified laterality, unspecified site of breast (HCC) Screening mammogram for breast cancer documented in this encounter [facility] note* Diagnosis Type 2 diabetes mellitus without complication, without long-term current use of insulin (HCC)- Primary documented in this encounter [facility] note* Diagnosis Type 2 diabetes mellitus without complication, without long-term current use of insulin (HCC) documented in this encounter [facility] note* Diagnosis Malignant neoplasm of female breast, unspecified estrogen receptor status, unspecified laterality, unspecified site of breast (HCC) documented in this encounter [facility] note* Diagnosis Essential hypertension Unspecified essential hypertension documented in this encounter [facility] note* Diagnosis Onset Date Resolution Status Acute blood loss anemia acut e Blunt traumatic injury of th atxcd-xjmtymki-elrxff region acute Contusion of rib on right side acute On apixaban therapy acute UGIB (upper gastrointestinal bleed) acute Paroxysmal atrial fibrillation chronic [facility] Work Phone: Evaluation note* Diagnosis Onset Date Resolution Status Acute blood loss anemia acut e Blunt traumatic injury of th pwzyl-pqpzhucu-vvtpqf region acute Contusion of rib on right side acute On apixaban therapy acute UGIB (upper gastrointestinal bleed) acute Paroxysmal atrial fibrillation chronic Acute blood loss anemia acut e On apixaban therapy acute Pyloric channel ulcer acute UGIB (upper gastrointestinal bleed) [facility] Work Phone: Evaluation note* Diagnosis Onset Date Resolution Status Acute blood loss anemia acut e Blunt traumatic injury of th ojqka-dcwhbzwb-zcoiui region resolved Contusion of rib on right side resolved UGIB (upper gastrointestinal bleed) resolved Acute blood loss anemia acut e Pyloric channel ulcer acute UGIB (upper gastrointestinal bleed) resolved [facility] Work Phone: Evaluation note* Diagnosis Lung nodules- Primary Other nonspecific abnormal finding of lung field Malignant neoplasm of female breast, unspecified estrogen receptor status, unspecified laterality, unspecified site of breast (HCC) documented [facility] this encounter [facility]* Diagnosis Duodenal ulcer- Primary Duodenal ulcer, unspecified as acute or chronic, without hemorrhage, perforation, or obstruction Gastrointestinal hemorrhage, unspecified gastrointestinal hemorrhage type Persistent atrial fibrillation (HCC) Atrial fibrillation Type 2 diabetes mellitus without complication, without long-term current use of insulin (HCC) Mixed hyperlipidemia Urinary retention Retention of urine, unspecified Hydroureter Lung nodule Solitary pulmonary nodule [facility]* Diagnosis Iron deficiency anemia due to chronic blood loss- Primary Iron deficiency anemia secondary to blood loss (chronic) documented [facility]* Diagnosis Lung nodules Other nonspecific abnormal finding of lung field Malignant neoplasm of female breast, unspecified estrogen receptor status, unspecified laterality, unspecified site of breast (HCC) documented [facility] encounter [facility]* Diagnosis Lung nodule- Primary Solitary pulmonary nodule [facility]* Diagnosis Onset Date Resolution Status Acute blood loss anemia reso lved Blunt traumatic injury of th disrf-lpstyxtk-wclnsb region resolved Contusion of rib on right side resolved UGIB (upper gastrointestinal bleed) resolved Pyloric channel ulcer acute Acute blood loss anemia reso lved UGIB (upper gastrointestinal bleed) resolved Gastric ulcer chronic GIB (gastrointestinal bleeding) resolved [facility] Work Phone: Evaluation note* Diagnosis Bilateral hydronephrosis- Primary Hydronephrosis Hydroureter Screening for genitourinary condition Screening for other and unspecified genitourinary condition [facility]* Diagnosis Type 2 diabetes mellitus without complication, without long-term current use of insulin (HCC)- Primary Iron deficiency anemia due to chronic blood loss Iron deficiency anemia secondary to blood loss (chronic) Pulmonary nodules Other nonspecific abnormal finding of lung field [facility]* Diagnosis Bilateral hydronephrosis Hydronephrosis Hydroureter documented [facility]* Diagnosis Lung nodule- Primary Solitary pulmonary nodule 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 History of breast cancer Personal history of malignant neoplasm of breast [facility]* Diagnosis Essential hypertension- Primary Unspecified essential hypertension documented [facility]* Diagnosis Essential hypertension- Primary Unspecified essential [...] Other screening mammogram documented in this encounter [facility]* Diagnosis Type 2 diabetes mellitus without complication, without long-term current use of insulin (HCC) documented [facility] encounter [facility]* Diagnosis Type 2 diabetes mellitus without complication, without long-term current use of insulin (HCC) documented [facility] encounter [facility]* Diagnosis Essential hypertension- Primary Unspecified essential hypertension Type 2 diabetes mellitus without complication, without long-term current use of insulin (HCC) documented [facility] this encounter [facility]* Diagnosis Essential hypertension- Primary Unspecified essential hypertension Type 2 diabetes mellitus without complication, without long-term current use of insulin (HCC) Atherosclerosis of [place] coronary artery of [place] heart without angina pectoris documented [facility] this encounter [facility]* Diagnosis History of breast cancer Personal history of malignant neoplasm of breast Encounter for screening mammogram for malignant neoplasm of breast Other screening mammogram documented in this encounter [facility]* Diagnosis Essential hypertension- Primary Unspecified essential hypertension Mixed hyperlipidemia Atherosclerosis of coronary artery of [place] heart without angina pectoris, unspecified vessel or [...] neoplasm of breast [facility] Mixed hyperlipidemia [facility] Diagnosis Essential hypertension- Primary Unspecified [...] serum enzyme levels [facility] Diagnosis Type 2 diabetes mellitus [...] malignant neoplasms, colon [facility] Diagnosis Essential hypertension- Primary Unspecified essential hypertension Type 2 diabetes mellitus without complication, with long-term current use of insulin (HCC) Mixed hyperlipidemia [facility]* Diagnosis Type 2 diabetes mellitus without complication, with long-term current use of insulin (HCC)- Primary [facility]* Diagnosis Screen for colon cancer- Primary Special screening for malignant neoplasms, colon History of colon polyps Personal history of colonic polyps [facility]* Diagnosis Screening for colon cancer Special screening for malignant neoplasms, colon [facility] Diagnosis Mass of cecum- Primary Unspecified disorder of intestine [facility]* Diagnosis Essential hypertension- Primary Unspecified essential hypertension [facility]* Diagnosis Microalbuminuria- Primary Proteinuria Elevated alkaline phosphatase level Other nonspecific abnormal serum enzyme levels documented [facility]* Diagnosis Type 2 diabetes mellitus without complication, without long-term current use of insulin (HCC) [facility]* Diagnosis Encounter for screening mammogram for malignant neoplasm of breast- Primary Other screening mammogram documented [facility]* Diagnosis Encounter for screening mammogram for malignant neoplasm of breast Other screening mammogram [facility]* Diagnosis Rectal bleeding- Primary Hemorrhage of rectum and anus [facility] Author Cullen Ferrer [facility] February 04, 2024 6:47am Note Date/Time February 04, 2024 6:47 am [facility] Medical Records Department [address] [place] [id number] History & Physical Exam 02/04/24 0647 MR#: [id number] Acct: [id number] Name: KELLIE DOZIER [place] Rep #:[id number] : 1945 78 From: Cullen Ferrer DO PCP: Dr. Santo Love MD Status:REG S GA Location: [place] [address] History and Physical Date of Admission: 02/04/24 KELLIE DOZIER, is a 78 F who presents to the office today for *[facility] hospitalization 2.9.24-2.11.24 for management of UGIB with anemia with use of Eliquis for A-fib. ? CT abd/pel IV only 12.11.23 fluid filled small bowel loops, ?enteritis; focal stranding of RLQ from cecum. ? EGD 12.12.23 oozing gastric ulcer, epinephrine/hemospray x5, heater probe; bleeding duodenal AVM. No specimens [facility] hospitalization 12.15.23-12.22.23 for management of GIB with [...] Affect: normal affect Quality Reporting Tobacco Screening ([facility] 138) Smoking Status: Never smoker Assessment and Plan Assessment and Plan (1) GIB (gastrointestinal bleeding): Status: Resolved (2) Gastric ulcer: Status: Chronic Plan: 78 F who presented to [facility] ED on morning of 12/15/2023 withrecurrent upper GI bleed. Patient was recently hospitalized at [facility] from 12/11 to 12/13 for an upper [...] no clinicalchanges since date of exam. 02/04/24 0692 <Electronically signed by Cullen Ferrer DO> Cosigner Signature (if applicable): CC: Dr. Santo Love MD; Cullen Ferrer DO~ Signed [facility] Work Phone: Reason for referral (narrative)* Diagnostic Procedure Only (Routine) - Authorized Specialty Diagnoses / Procedures Referred By Elia villegas Referred To Contact [facility] Diagnoses Screening breast examination Procedures GENEVA SCREENING SCREENING MAMMOGRAPHY BI 2-VIEW BREAST INC Santo Moss MD [address] [place] [address] [facility] [address] [place] [address] Referral ID Status Reason Start Date Expiration Date Visits Requested Visits Authorized [id number] Authorized Auto-Generat ed Referral 04/22/2022 05/22/2023 1 1 [facility] for referral (narrative)* Diagnostic Procedure Only (Routine) - Closed Specialty Diagnoses / Procedures Referred By Elia villegas Referred To Contact [facility] Diagnoses Screening breast examination Procedures GENEVA SCREENING SCREENING MAMMOGRAPHY BI 2-VIEW BREAST INC Santo Moss MD [address] [place] [address] [facility] [address] [place] [address] Referral ID Status Reason Start Date Expiration Date V isits Requested Visits Authorized [id number] Closed Auto-Generate d Referral 04/22/2022 05/22/2023 1 1 [facility] for referral (narrative)* Outpatient Procedure (Routine) - Authorized Specialty Diagnoses / Procedures Referred By Contac t Referred To [facility] Diagnoses Persistent atrial fibrillation (HCC) Other specified hypotension Procedures ECG COMPLETE ECG ROUTINE ECG W/LEAST 12 LDS W/I&R Talya Rodriguez PA-C [address] [place] [address] [facility] [place] [address] [place] [address] Referral ID Status Reason Start Date Expiration Date Visits Requested Visits Authorized [id number] Authorized Auto-Generat ed Referral 06/27/2022 06/27/2023 1 1 [facility] for referral (narrative)* Diagnostic Procedure Only (Routine) - Authorized Specialty Diagnoses / Procedures Referred By Contac t Referred To Contact [facility] Diagnoses Malignant neoplasm of female breast, unspecified estrogen receptor status, unspecified laterality, unspecified site of breast (HCC) Procedures GENEVA SCREENING SCREENING MAMMOGRAPHY BI 2-VIEW BREAST INC Santo Moss MD [address] [place] [address] [facility] [id number] [place] [address] Referral ID Status Reason Start Date Expiration Date Visits Requested Visits Authorized [id number] Authorized Auto-Generat ed Referral 05/07/2023 06/05/2024 1 1 [facility] for referral (narrative)* Diagnostic Procedure Only (Routine) - Closed Specialty Diagnoses / Procedures Referred By Contac t Referred To Contact [facility] Diagnoses Malignant neoplasm of female breast, unspecified estrogen receptor status, unspecified laterality, unspecified site of breast (HCC) Procedures GENEVA SCREENING SCREENING MAMMOGRAPHY BI 2-VIEW BREAST INC Santo Moss MD [address] [place] [address] [facility] [address] [place] [address] Referral ID Status Reason Start Date Expiration Date V isits Requested Visits Authorized [id number] Closed Auto-Generate d Referral 05/07/2023 06/05/2024 1 1 [facility] for referral (narrative)* Diagnostic Procedure Only (Routine) - Pending Review Specialty Diagnoses / Procedures Referred By Elia villegas Referred To Contact [facility] Diagnoses Bilateral hydronephrosis Hydroureter Procedures US KIDNEY/BLADDER US RETROPERITONEAL REAL TIME W/IMAGE COMPLETE Zac Duncan PA-C [address] [place] [address] [id number] Referral ID Status Reason Start Date Expiration Date Visits Requested Visits Authorized [id number] Pending Review Auto-Generat ed Referral 02/02/2024 03/03/2025 1 1 [facility] for referral (narrative)* Diagnostic Procedure Only (Routine) - Pending Review Specialty Diagnoses / Procedures Referred By Elia villegas Referred To Contact [facility] Diagnoses History of breast cancer Encounter for screening mammogram for malignant neoplasm of breast Procedures GENEVA SCREENING SCREENING MAMMOGRAPHY BI 2-VIEW BREAST INC Santo Moss MD [address] [place] [address] [facility] [address] [place] [address] Referral ID Status Reason Start Date Expiration Date Visits Requested Visits Authorized [id number] Pending Review Auto-Generat ed Referral 04/12/2024 05/12/2025 1 1 [facility] for visit Narrative* Diagnostic Procedure Only (Routine) - Closed Specialty Diagnoses / Procedures Referred By Elia villegas Referred To Contact [facility] Diagnoses Screening breast examination Procedures GENEVA SCREENING SCREENING MAMMOGRAPHY BI 2-VIEW BREAST INC Santo Moss MD [facility] [place] [address] [facility] [address] [place] [address] Referral ID Status Reason Start Date Expiration Date V isits Requested Visits Authorized [id number] Closed Auto-Generate d Referral 04/22/2022 05/22/2023 1 1 [facility] for visit Narrative* Diagnostic Procedure Only (Routine) - Closed Specialty Diagnoses / Procedures Referred By Contac t Referred To Contact [facility] Diagnoses Malignant neoplasm of female breast, unspecified estrogen receptor status, unspecified laterality, unspecified site of breast (HCC) Procedures GENEVA SCREENING SCREENING MAMMOGRAPHY BI 2-VIEW BREAST INC Santo Moss MD [address] [place] [address] [facility] [address] [place] [address] Referral ID Status Reason Start Date Expiration Date V isits Requested Visits Authorized [id number] Closed Auto-Generate d Referral 05/07/2023 06/05/2024 1 1 [facility] for visit Narrative* Diagnostic Procedure Only (Routine) - Closed Specialty Diagnoses / Procedures Referred By Contac t Referred To Contact [facility] Diagnoses History of breast cancer Encounter for screening mammogram for malignant neoplasm of breast Procedures GENEVA SCREENING SCREENING MAMMOGRAPHY BI 2-[place] [address] [place] [address] [facility] [address] [place] [id number] Referral ID Status Reason Start Date Expiration Date V isits Requested Visits Authorized [id number] Closed Auto-Generate d Referral 04/12/2024 05/12/2025 1 1 [facility] for visit Narrative* Diagnostic Procedure Only (Routine) - Closed Specialty Diagnoses / Procedures Referred By Elia t Referred To Contact [facility] Diagnoses Elevated alkaline phosphatase level Procedures US ABD RIGHT UPPER QUADRANT US ABDOMINAL REAL TIME W/IMAGE LIMITED Santo Loev MD [address] [place] [address] Phone: tel: fax: [place] [address] Referral ID Status Reason Start Date Expiration Date V isits Requested Visits Authorized [id number] Closed Auto-Generate d Referral 01/25/2025 02/24/2026 1 1 [facility] for visit Narrative* Outpatient Procedure (Routine) - Closed Specialty Diagnoses / Procedures Referred By Elia villegas Referred To Contact [facility] Diagnoses Screening for colon cancer Procedures COLONOSCOPY SCREENING COLONOSCOPY FLX DX W/COLLJ SPEC WHEN PFRMD Santo Love MD [address] [place] [address] Phone: tel: fax: Zari Sorenson MD [address] [place] [address] Phone: tel: fax: Referral ID Status Reason Start Date Expiration Date V isits Requested Visits Authorized [id number] Closed Auto-Generate d Referral 05/09/2025 06/09/2025 1 1 [facility] for visit Narrative* Diagnostic Procedure Only (Routine) - Closed Specialty Diagnoses / Procedures Referred By Elia villegas Referred To Contact [facility] Diagnoses Encounter for screening mammogram for malignant neoplasm of breast Procedures GENEVA SCREENING W SANCHEZ SCREENING DIGITAL BREAST TOMOSYNTHESIS BI SCREENING MAMMOGRAPHY BI 2-VIEW BREAST INC CAD Santo Love MD [address] [place] [address] Phone: tel: fax: [facility] [address] [place] [address] Referral ID Status Reason Start Date Expiration Date V isits Requested Visits Authorized [id number] Closed Auto-Generate d Referral 07/05/2025 11/01/2025 1 1 [facility] Summary Purpose Family History No Family History Records Found Relationship Condition Age at Onset Recorded Date/T estevan mother Hypertension Unknown Diabetes mellitus Unknown Cerebrovascular accident (CVA) Unknown Coronary artery disease Unknown father History of deep venous thrombosis Unknown Advance Directives No Advanced Directives Records FoundDocuments on File Type Date Recorded Patient Network Support Expl anation Advance Directive(s) 09/17/2021 6:44 AM Advance Directive(s) 09/11/2020 10:43 AM Advance Directive(s) 11/13/2016 12:33 PM Advance Directive(s) 11/06/2016 12:34 PM Documents on File Type Date Recorded Patient Network Support Expl anation Advance Directive(s) 09/17/2021 6:44 AM Advance Directive(s) 09/11/2020 10:43 AM Advance Directive(s) 11/13/2016 12:33 PM Advance Directive(s) 11/06/2016 12:34 PM Advance Directive Response Recorded Date/ Time Advance Directives No October 6:26pm Living Will No December 11 8:16am Power of Pressure Test Operator No December 11, 2023 8:16am Advance Directive Response Recorded Date/ Time Advance Directives No October 6:26pm Living Will No December 11 12:46pm Power of Pressure Test Operator No December 11, 2023 12:46pm Advance Directive Response Recorded Date/ Time Advance Directives No October 6:26pm Living Will No December 15 5:51am Power of Pressure Test Operator No December 15, 2023 5:51am Advance Directive Response Recorded Date/ Time Advance Directives No October 6:26pm Living Will No December 15 10:24am Power of Pressure Test Operator No December 15, 2023 10:24am Advance Directive Response Recorded Date/ Time Advance Directives No October 7:26pm Living Will No December 15 11:24am Power of Pressure Test Operator No December 15, 2023 11:24am Advance Directive Response Recorded Date/ Time Advance Directives No October 7:26pm Living Will No February 01, 2024 3:07pm Power of Pressure Test Operator No January 31 3:07pm Medications Administered Section [...] loss ane ailyn Blunt traumatic injury of nkxxxjm-yacjuayy-yxraez region Contusion of rib on right side On apixaban therapy UGIB (upper gastrointestinal bleed) Paroxysmal atrial fibrillation Chief Complaint GI BLEED GI BLEED GI BLEED GI BLEED Reason for Visit Acute blood loss ane ailyn Blunt traumatic injury of scpqlht-glolvuhn-beyenq region Contusion of rib on right side On apixaban therapy UGIB (upper gastrointestinal bleed) Paroxysmal atrial fibrillation Chief Complaint GI BLEED GI BLEED GI BLEED GI BLEED ABLA, UGIB Reason for Visit Acute blood loss ane ailyn Blunt traumatic injury of cnyjhtg-puvkefla-hidkjc region Contusion of rib on right side [...] loss ane ailyn Blunt traumatic injury of ixvydhz-wtwvdsdy-eroffn region Contusion of rib on right side [...] loss ane ailyn Blunt traumatic injury of syfpwth-xmoysvmx-cfthal region Contusion of rib on right side [...] TOMOGRAPHY THORAX W/O CNTRST Santo Love MD [address] [place] [address] [place] [address] Referral ID Status Reason Start Date Expiration Date Visits Requested Visits Authorized [id number] Pending Review Auto-Generat ed Referral 12/18/2023 01/16/2025 1 1 Specialty Diagnoses / Procedures Referred By Contac t Referred To Contact Urology / UROLOGY Diagnoses Urinary retention Hydroureter Procedures CONSULT TO UROLOGY OFFICE/OUTPATIENT [facility] 60 MINUTES Santo Love MD [address] [place] [address] [facility] [address] [place] [address] Referral ID Status Reason Start Date Expiration Date Visits Requested Visits Authorized [id number] Authorized PCP Requested Referral 01/06/2024 11/01/2024 1 1 Specialty Diagnoses / Procedures Referred By Contac t Referred To Contact Gastroenterology Diagnoses Duodenal ulcer Gastrointestinal hemorrhage, unspecified gastrointestinal hemorrhage type Procedures CONSULT TO GASTROENTEROLOGY Santo Love MD [address] [place] [address] Referral ID Status Reason Start Date Expiration Date Visits Requested Visits Authorized [id number] Ref Not Required PCP Requested Referral 01/06/2024 01/05/2025 1 1 Specialty Diagnoses / Procedures Referred By Contac t Referred To Contact Pulmonary and Critical Care Medicine Diagnoses Lung nodule Procedures CONSULT TO PULM/CRITICAL CARE OFFICE/OUTPATIENT [facility] 60 MINUTES Santo Love MD [address] [place] [address] Referral ID Status Reason Start Date Expiration Date Visits Requested Visits Authorized [id number] Pending Review PCP Requested Referral 01/14/2024 01/13/2025 1 1 Specialty Diagnoses / Procedures Referred By Contac t Referred To Contact CT IMAGING Diagnoses Pulmonary nodules Procedures CT CHEST WO IVCON DIAGNOSTIC COMPUTED TOMOGRAPHY THORAX W/O CNTRST Talya Rodriguez PA-C [address] [place] [address] [place] [address] Referral ID Status Reason Start Date Expiration Date Visits Requested Visits Authorized [id number] Authorized Auto-Generat ed Referral 08/09/2024 03/09/2025 1 1 Specialty Diagnoses / Procedures Referred By Contac t Referred To Contact Pulmonary and Critical Care Medicine Diagnoses Lung nodule Radiation fibrosis of lung (HCC) Granulomatous disease (HCC) Procedures CONSULT TO PULM/CRITICAL CARE OFFICE/OUTPATIENT [facility] MDM 60 MINUTES Santo Love MD [address] [place] [address] Referral ID Status Reason Start Date Expiration Date Visits Requested Visits Authorized [id number] Authorized PCP Requested Referral 11/19/2024 11/19/2025 1 1 Specialty Diagnoses / Procedures Referred By Contac t Referred To Contact CT IMAGING Diagnoses Granulomatous disease (HCC) Lung nodules History of breast cancer Procedures CT CHEST WO IVCON DIAGNOSTIC COMPUTED TOMOGRAPHY THORAX W/O CNTMALLORYT Leonela Bear MD [address] [place] [address] [place] [address] Referral ID Status Reason Start Date Expiration Date Visits Requested Visits Authorized [id number] Pending Review Auto-Generat ed Referral 11/29/2025 12/29/2025 1 1 Additional Source Comments INFORMATION SOURCE (unrecogn ized section and content) DATE CREATED AUTHOR 07/02/2018 [facility] DATE CREATED AUTHOR AUTHOR'S ORGANIZ ATION 07/02/2018 [facility] DATE CREATED AUTHOR AUTHOR'S ORGANIZ ATION 12/06/2020 [facility] DATE CREATED AUTHOR AUTHOR'S ORGANIZ ATION 10/06/2024 [facility] DATE CREATED AUTHOR AUTHOR'S ORGANIZ ATION 08/24/2025 [facility] Source Comments (unrecognize d section and content) In the event this informatio n is protected by the Federal Confidentiality of Alcohol and Drug Abuse Patient Records regulations: The Federal rules restrict any use of the information to criminally investigate or prosecute any alcohol or drug abuse patient.[facility] the event this information is protected by the Federal Confidentiality of Alcohol and Drug Abuse Patient Records regulations: The Federal rules restrict any use of the information to criminally investigate or prosecute any alcohol or drug abuse patient.[facility] the event this information is protected by the Federal Confidentiality of Alcohol and Drug Abuse Patient Records regulations: The Federal rules restrict any use of the information to criminally investigate or prosecute any alcohol or drug abuse patient.[facility] the event this information is protected by the Federal Confidentiality of Alcohol and Drug Abuse Patient Records regulations: The Federal rules restrict any use of the information to criminally investigate or prosecute any alcohol or drug abuse patient.[facility] the event this information is protected by the Federal Confidentiality of Alcohol and Drug Abuse Patient Records regulations: The Federal rules restrict any use of the information to criminally investigate or prosecute any alcohol or drug abuse patient.[facility] the event this information is protected by the Federal Confidentiality of Alcohol and Drug Abuse Patient Records regulations: The Federal rules restrict any use of the information to criminally investigate or prosecute any alcohol or drug abuse patient.[facility] the event this information is protected by the Federal Confidentiality of Alcohol and Drug Abuse Patient Records regulations: The Federal rules restrict any use of the information to criminally investigate or prosecute any alcohol or drug abuse patient.[facility]In the event this information is protected by the Federal Confidentiality of Alcohol and Drug Abuse Patient Records regulations: The Federal rules restrict any use of the information to criminally investigate or prosecute any alcohol or drug abuse patient.[facility] the event this information is protected by the Federal Confidentiality of Alcohol and Drug Abuse Patient Records regulations: The Federal rules restrict any use of the information to criminally investigate or prosecute any alcohol or drug abuse patient.[facility] the event this information is protected by the Federal Confidentiality of Alcohol and Drug Abuse Patient Records regulations: The Federal rules restrict any use of the information to criminally investigate or prosecute any alcohol or drug abuse patient.[facility]In the event this information is protected by the Federal Confidentiality of Alcohol and Drug Abuse Patient Records regulations: The Federal rules restrict any use of the information to criminally investigate or prosecute any alcohol or drug abuse patient.[facility]In the event this information is protected by the Federal Confidentiality of Alcohol and Drug Abuse Patient Records regulations: The Federal rules restrict any use of the information to criminally investigate or prosecute any alcohol or drug abuse patient.[facility]In the event this information is protected by the Federal Confidentiality of Alcohol and Drug Abuse Patient Records regulations: The Federal rules restrict any use of the information to criminally investigate or prosecute any alcohol or drug abuse patient.[facility]In the event this information is protected by the Federal Confidentiality of Alcohol and Drug Abuse Patient Records regulations: The Federal rules restrict any use of the information to criminally investigate or prosecute any alcohol or drug abuse patient.[facility]In the event this information is protected by the Federal Confidentiality of Alcohol and Drug Abuse Patient Records regulations: The Federal rules restrict any use of the information to criminally investigate or prosecute any alcohol or drug abuse patient.[facility]In the event this information is protected by the Federal Confidentiality of Alcohol and Drug Abuse Patient Records regulations: The Federal rules restrict any use of the information to criminally investigate or prosecute any alcohol or drug abuse patient.[facility]In the event this information is protected by the Federal Confidentiality of Alcohol and Drug Abuse Patient Records regulations: The Federal rules restrict any use of the information to criminally investigate or prosecute any alcohol or drug abuse patient.[facility]In the event this information is protected by the Federal Confidentiality of Alcohol and Drug Abuse Patient Records regulations: The Federal rules restrict any use of the information to criminally investigate or prosecute any alcohol or drug abuse patient.[facility]In the event this information is protected by the Federal Confidentiality of Alcohol and Drug Abuse Patient Records regulations: The Federal rules restrict any use of the information to criminally investigate or prosecute any alcohol or drug abuse patient.[facility]In the event this information is protected by the Federal Confidentiality of Alcohol and Drug Abuse Patient Records regulations: The Federal rules restrict any use of the information to criminally investigate or prosecute any alcohol or drug abuse patient.[facility]In the event this information is protected by the Federal Confidentiality of Alcohol and Drug Abuse Patient Records regulations: The Federal rules restrict any use of the information to criminally investigate or prosecute any alcohol or drug abuse patient.[facility]In the event this information is protected by the Federal Confidentiality of Alcohol and Drug Abuse Patient Records regulations: The Federal rules restrict any use of the information to criminally investigate or prosecute any alcohol or drug abuse patient.[facility]In the event this information is protected by the Federal Confidentiality of Alcohol and Drug Abuse Patient Records regulations: The Federal rules restrict any use of the information to criminally investigate or prosecute any alcohol or drug abuse patient.[facility]In the event this information is protected by the Federal Confidentiality of Alcohol and Drug Abuse Patient Records regulations: The Federal rules restrict any use of the information to criminally investigate or prosecute any alcohol or drug abuse patient.[facility]In the event this information is protected by the Federal Confidentiality of Alcohol and Drug Abuse Patient Records regulations: The Federal rules restrict any use of the information to criminally investigate or prosecute any alcohol or drug abuse patient.[facility]In the event this information is protected by the Federal Confidentiality of Alcohol and Drug Abuse Patient Records regulations: The Federal rules restrict any use of the information to criminally investigate or prosecute any alcohol or drug abuse patient.[facility]In the event this information is protected by the Federal Confidentiality of Alcohol and Drug Abuse Patient Records regulations: The Federal rules restrict any use of the information to criminally investigate or prosecute any alcohol or drug abuse patient.[facility]In the event this information is protected by the Federal Confidentiality of Alcohol and Drug Abuse Patient Records regulations: The Federal rules restrict any use of the information to criminally investigate or prosecute any alcohol or drug abuse patient.[facility]In the event this information is protected by the Federal Confidentiality of Alcohol and Drug Abuse Patient Records regulations: The Federal rules restrict any use of the information to criminally investigate or prosecute any alcohol or drug abuse patient.[facility]In the event this information is protected by the Federal Confidentiality of Alcohol and Drug Abuse Patient Records regulations: The Federal rules restrict any use of the information to criminally investigate or prosecute any alcohol or drug abuse patient.[facility]In the event this information is protected by the Federal Confidentiality of Alcohol and Drug Abuse Patient Records regulations: The Federal rules restrict any use of the information to criminally investigate or prosecute any alcohol or drug abuse patient.[facility]In the event this information is protected by the Federal Confidentiality of Alcohol and Drug Abuse Patient Records regulations: The Federal rules restrict any use of the information to criminally investigate or prosecute any alcohol or drug abuse patient.[facility] ClinicIn the event this information is protected by the Federal Confidentiality of Alcohol and Drug Abuse Patient Records regulations: The Federal rules restrict any use of the information to criminally investigate or prosecute any alcohol or drug abuse patient.[facility]In the event this information is protected by the Federal Confidentiality of Alcohol and Drug Abuse Patient Records regulations: The Federal rules restrict any use of the information to criminally investigate or prosecute any alcohol or drug abuse patient.[facility]In the event this information is protected by the Federal Confidentiality of Alcohol and Drug Abuse Patient Records regulations: The Federal rules restrict any use of the information to criminally investigate or prosecute any alcohol or drug abuse patient.[facility]In the event this information is protected by the Federal Confidentiality of Alcohol and Drug Abuse Patient Records regulations: The Federal rules restrict any use of the information to criminally investigate or prosecute any alcohol or drug abuse patient.[facility]In the event this information is protected by the Federal Confidentiality of Alcohol and Drug Abuse Patient Records regulations: The Federal rules restrict any use of the information to criminally investigate or prosecute any alcohol or drug abuse patient.[facility]In the event this information is protected by the Federal Confidentiality of Alcohol and Drug Abuse Patient Records regulations: The Federal rules restrict any use of the information to criminally investigate or prosecute any alcohol or drug abuse patient.[facility]In the event this information is protected by the Federal Confidentiality of Alcohol and Drug Abuse Patient Records regulations: The Federal rules restrict any use of the information to criminally investigate or prosecute any alcohol or drug abuse patient.[facility] ClinicIn the event this information is protected by the Federal Confidentiality of Alcohol and Drug Abuse Patient Records regulations: The Federal rules restrict any use of the information to criminally investigate or prosecute any alcohol or drug abuse patient.[facility] ClinicIn the event this information is protected by the Federal Confidentiality of Alcohol and Drug Abuse Patient Records regulations: The Federal rules restrict any use of the information to criminally investigate or prosecute any alcohol or drug abuse patient.[facility] ClinicIn the event this information is protected by the Federal Confidentiality of Alcohol and Drug Abuse Patient Records regulations: The Federal rules restrict any use of the information to criminally investigate or prosecute any alcohol or drug abuse patient.[facility] ClinicIn the event this information is protected by the Federal Confidentiality of Alcohol and Drug Abuse Patient Records regulations: The Federal rules restrict any use of the information to criminally investigate or prosecute any alcohol or drug abuse patient.[facility] ClinicIn the event this information is protected by the Federal Confidentiality of Alcohol and Drug Abuse Patient Records regulations: The Federal rules restrict any use of the information to criminally investigate or prosecute any alcohol or drug abuse patient.[facility] ClinicIn the event this information is protected by the Federal Confidentiality of Alcohol and Drug Abuse Patient Records regulations: The Federal rules restrict any use of the information to criminally investigate or prosecute any alcohol or drug abuse patient.[facility]In the event this information is protected by the Federal Confidentiality of Alcohol and Drug Abuse Patient Records regulations: The Federal rules restrict any use of the information to criminally investigate or prosecute any alcohol or drug abuse patient.[facility]In the event this information is protected by the Federal Confidentiality of Alcohol and Drug Abuse Patient Records regulations: The Federal rules restrict any use of the information to criminally investigate or prosecute any alcohol or drug abuse patient.[facility] ClinicIn the event this information is protected by the Federal Confidentiality of Alcohol and Drug Abuse Patient Records regulations: The Federal rules restrict any use of the information to criminally investigate or prosecute any alcohol or drug abuse patient.[facility] ClinicIn the event this information is protected by the Federal Confidentiality of Alcohol and Drug Abuse Patient Records regulations: The Federal rules restrict any use of the information to criminally investigate or prosecute any alcohol or drug abuse patient.[facility] ClinicIn the event this information is protected by the Federal Confidentiality of Alcohol and Drug Abuse Patient Records regulations: The Federal rules restrict any use of the information to criminally investigate or prosecute any alcohol or drug abuse patient.[facility] ClinicIn the event this information is protected by the Federal Confidentiality of Alcohol and Drug Abuse Patient Records regulations: The Federal rules restrict any use of the information to criminally investigate or prosecute any alcohol or drug abuse patient.[facility] ClinicIn the event this information is protected by the Federal Confidentiality of Alcohol and Drug Abuse Patient Records regulations: The Federal rules restrict any use of the information to criminally investigate or prosecute any alcohol or drug abuse patient.[facility] ClinicIn the event this information is protected by the Federal Confidentiality of Alcohol and Drug Abuse Patient Records regulations: The Federal rules restrict any use of the information to criminally investigate or prosecute any alcohol or drug abuse patient.[facility] ClinicIn the event this information is protected by the Federal Confidentiality of Alcohol and Drug Abuse Patient Records regulations: The Federal rules restrict any use of the information to criminally investigate or prosecute any alcohol or drug abuse patient.[facility] ClinicIn the event this information is protected by the Federal Confidentiality of Alcohol and Drug Abuse Patient Records regulations: The Federal rules restrict any use of the information to criminally investigate or prosecute any alcohol or drug abuse patient.[facility] ClinicIn the event this information is protected by the Federal Confidentiality of Alcohol and Drug Abuse Patient Records regulations: The Federal rules restrict any use of the information to criminally investigate or prosecute any alcohol or drug abuse patient.[facility] ClinicIn the event this information is protected by the Federal Confidentiality of Alcohol and Drug Abuse Patient Records regulations: The Federal rules restrict any use of the information to criminally investigate or prosecute any alcohol or drug abuse patient.[facility] ClinicIn the event this information is protected by the Federal Confidentiality of Alcohol and Drug Abuse Patient Records regulations: The Federal rules restrict any use of the information to criminally investigate or prosecute any alcohol or drug abuse patient.[facility] ClinicIn the event this information is protected by the Federal Confidentiality of Alcohol and Drug Abuse Patient Records regulations: The Federal rules restrict any use of the information to criminally investigate or prosecute any alcohol or drug abuse patient.[facility] ClinicIn the event this information is protected by the Federal Confidentiality of Alcohol and Drug Abuse Patient Records regulations: The Federal rules restrict any use of the information to criminally investigate or prosecute any alcohol or drug abuse patient.[facility] ClinicIn the event this information is protected by the Federal Confidentiality of Alcohol and Drug Abuse Patient Records regulations: The Federal rules restrict any use of the information to criminally investigate or prosecute any alcohol or drug abuse patient.[facility] ClinicIn the event this information is protected by the Federal Confidentiality of Alcohol and Drug Abuse Patient Records regulations: The Federal rules restrict any use of the information to criminally investigate or prosecute any alcohol or drug abuse patient.[facility] ClinicIn the event this information is protected by the Federal Confidentiality of Alcohol and Drug Abuse Patient Records regulations: The Federal rules restrict any use of the information to criminally investigate or prosecute any alcohol or drug abuse patient.[facility] ClinicIn the event this information is protected by the Federal Confidentiality of Alcohol and Drug Abuse Patient Records regulations: The Federal rules restrict any use of the information to criminally investigate or prosecute any alcohol or drug abuse patient.[facility] ClinicIn the event this information is protected by the Federal Confidentiality of Alcohol and Drug Abuse Patient Records regulations: The Federal rules restrict any use of the information to criminally investigate or prosecute any alcohol or drug abuse patient.[facility] ClinicIn the event this information is protected by the Federal Confidentiality of Alcohol and Drug Abuse Patient Records regulations: The Federal rules restrict any use of the information to criminally investigate or prosecute any alcohol or drug abuse patient.[facility] ClinicIn the event this information is protected by the Federal Confidentiality of Alcohol and Drug Abuse Patient Records regulations: The Federal rules restrict any use of the information to criminally investigate or prosecute any alcohol or drug abuse patient.[facility] ClinicIn the event this information is protected by the Federal Confidentiality of Alcohol and Drug Abuse Patient Records regulations: The Federal rules restrict any use of the information to criminally investigate or prosecute any alcohol or drug abuse patient.[facility] ClinicIn the event this information is protected by the Federal Confidentiality of Alcohol and Drug Abuse Patient Records regulations: The Federal rules restrict any use of the information to criminally investigate or prosecute any alcohol or drug abuse patient.[facility] ClinicIn the event this information is protected by the Federal Confidentiality of Alcohol and Drug Abuse Patient Records regulations: The Federal rules restrict any use of the information to criminally investigate or prosecute any alcohol or drug abuse patient.[facility] ClinicIn the event this information is protected by the Federal Confidentiality of Alcohol and Drug Abuse Patient Records regulations: The Federal rules restrict any use of the information to criminally investigate or prosecute any alcohol or drug abuse patient.[facility] ClinicIn the event this information is protected by the Federal Confidentiality of Alcohol and Drug Abuse Patient Records regulations: The Federal rules restrict any use of the information to criminally investigate or prosecute any alcohol or drug abuse patient.[facility] ClinicIn the event this information is protected by the Federal Confidentiality of Alcohol and Drug Abuse Patient Records regulations: The Federal rules restrict any use of the information to criminally investigate or prosecute any alcohol or drug abuse patient.[facility] ClinicIn the event this information is protected by the Federal Confidentiality of Alcohol and Drug Abuse Patient Records regulations: The Federal rules restrict any use of the information to criminally investigate or prosecute any alcohol or drug abuse patient.[facility] ClinicIn the event this information is protected by the Federal Confidentiality of Alcohol and Drug Abuse Patient Records regulations: The Federal rules restrict any use of the information to criminally investigate or prosecute any alcohol or drug abuse patient.[facility] ClinicIn the event this information is protected by the Federal Confidentiality of Alcohol and Drug Abuse Patient Records regulations: The Federal rules restrict any use of the information to criminally investigate or prosecute any alcohol or drug abuse patient.[facility] ClinicIn the event this information is protected by the Federal Confidentiality of Alcohol and Drug Abuse Patient Records regulations: The Federal rules restrict any use of the information to criminally investigate or prosecute any alcohol or drug abuse patient.[facility] ClinicIn the event this information is protected by the Federal Confidentiality of Alcohol and Drug Abuse Patient Records regulations: The Federal rules restrict any use of the information to criminally investigate or prosecute any alcohol or drug abuse patient.[facility] ClinicIn the event this information is protected by the Federal Confidentiality of Alcohol and Drug Abuse Patient Records regulations: The Federal rules restrict any use of the information to criminally investigate or prosecute any alcohol or drug abuse patient.[facility] ClinicIn the event this information is protected by the Federal Confidentiality of Alcohol and Drug Abuse Patient Records regulations: The Federal rules restrict any use of the information to criminally investigate or prosecute any alcohol or drug abuse patient.[facility] ClinicIn the event this information is protected by the Federal Confidentiality of Alcohol and Drug Abuse Patient Records regulations: The Federal rules restrict any use of the information to criminally investigate or prosecute any alcohol or drug abuse patient.[facility] ClinicIn the event this information is protected by the Federal Confidentiality of Alcohol and Drug Abuse Patient Records regulations: The Federal rules restrict any use of the information to criminally investigate or prosecute any alcohol or drug abuse patient.[facility] ClinicIn the event this information is protected by the Federal Confidentiality of Alcohol and Drug Abuse Patient Records regulations: The Federal rules restrict any use of the information to criminally investigate or prosecute any alcohol or drug abuse patient.[facility] ClinicIn the event this information is protected by the Federal Confidentiality of Alcohol and Drug Abuse Patient Records regulations: The Federal rules restrict any use of the information to criminally investigate or prosecute any alcohol or drug abuse patient.[facility] ClinicIn the event this information is protected by the Federal Confidentiality of Alcohol and Drug Abuse Patient Records regulations: The Federal rules restrict any use of the information to criminally investigate or prosecute any alcohol or drug abuse patient.[facility] ClinicIn the event this information is protected by the Federal Confidentiality of Alcohol and Drug Abuse Patient Records regulations: The Federal rules restrict any use of the information to criminally investigate or prosecute any alcohol or drug abuse patient.[facility] ClinicIn the event this information is protected by the Federal Confidentiality of Alcohol and Drug Abuse Patient Records regulations: The Federal rules restrict any use of the information to criminally investigate or prosecute any alcohol or drug abuse patient.[facility] ClinicIn the event this information is protected by the Federal Confidentiality of Alcohol and Drug Abuse Patient Records regulations: The Federal rules restrict any use of the information to criminally investigate or prosecute any alcohol or drug abuse patient.[facility] ClinicIn the event this information is protected by the Federal Confidentiality of Alcohol and Drug Abuse Patient Records regulations: The Federal rules restrict any use of the information to criminally investigate or prosecute any alcohol or drug abuse patient.[facility] Reason for Visit (unrecogniz ed section and [...] TOMOGRAPHY THORAX W/O CNTRST Santo Love MD [facility] [place] [address] Ct [facility] [place] [address] Referral ID Status Reason Start Date Expiration Date V isits Requested Visits Authorized [id number] Closed Auto-Generate d Referral 12/18/2023 01/16/2025 1 1 Reason Comments New Patient Hydronephrosis Specialty Diagnoses / Procedures Referred By Contac t Referred To Contact Urology / UROLOGY Diagnoses Urinary retention Hydroureter Procedures CONSULT TO UROLOGY OFFICE/OUTPATIENT NEW HIGH MDM 60 [address] Santo Love MD [facility] [place] [address] Urol [facility] [address] [place] [address] Referral ID Status Reason Start Date Expiration Date V isits Requested Visits Authorized [id number] Closed PCP Requested Referral 01/06/2024 11/01/2024 1 1 Reason Comments Follow Up Blood Pressure Reason Comments Radiology US Specialty Diagnoses / Procedures Referred By Contac t Referred To Contact US IMAGING Diagnoses Bilateral hydronephrosis Hydroureter Procedures US KIDNEY/BLADDER US RETROPERITONEAL REAL TIME W/IMAGE COMPLETE Zac Duncan PA-C [address] [place] [address] Us [facility] [place] [address] Referral ID Status Reason Start Date Expiration Date V isits Requested Visits Authorized [id number] Closed Auto-Generate d Referral 02/02/2024 03/03/2025 1 1 Reason Comments Consult Lung Nodules: Hospit al stay 12/16/2023 Specialty Diagnoses / Procedures Referred By Contac t Referred To Contact Pulmonary and Critical Care Medicine Diagnoses Lung nodule Procedures CONSULT TO PULM/CRITICAL CARE OFFICE/OUTPATIENT [facility] 60 MINUTES Santo Love MD [address] [place] [address] [address] [place] [id number] Referral ID Status Reason Start Date Expiration Date V isits Requested Visits Authorized [id number] Closed PCP Requested Referral 01/15/2024 11/01/2024 1 [...] THORAX W/O CNTRST Talya Rodriguez PA-C [address] [place] [address] Ct [id number] Referral ID Status Reason Start Date Expiration Date V isits Requested Visits Authorized [id number] Closed Auto-Generate d Referral 08/09/2024 03/09/2025 1 1 Reason Comments Established Patient Lung nodule Nodule Specialty Diagnoses / Procedures Referred By Contac t Referred To Contact Pulmonary and Critical Care Medicine Diagnoses Lung nodule Radiation fibrosis of lung (HCC) Granulomatous disease (HCC) Procedures CONSULT TO PULM/CRITICAL CARE OFFICE/OUTPATIENT [facility] 60 MINUTES Santo Love MD [address] [place] [address] Referral ID Status Reason Start Date Expiration Date V isits Requested Visits Authorized [id number] Closed PCP Requested Referral 11/19/2024 11/19/2025 1 [...] Care Teams (unrecognized sec tion and content) Flash Welder Relationship Specialty Start Date End Date Santo Love MD [address] [facility] [place] [address] PCP - General Family Practice 09/18/15 [facility] [address] [facility] [place] [address] Pharmacist Pharmacy 04/14/19 [facility] [address] [facility] [place] [address] Pharmacist Pharmacy 10/31/20 Flash Welder Relationship Specialty Start Date End Date Santo Love MD [address] [facility] [place] [address] PCP - General Family Practice 09/18/15 [facility] [address] [facility] [place] [address] Pharmacist Pharmacy 04/14/19 [facility] [address] [facility] [place] [address] Pharmacist Pharmacy 10/31/20 Flash Welder Relationship Specialty Start Date End Date Santo Love MD [address] [facility] [place] [address] PCP - General Family Practice 09/18/15 [facility] [address] [facility] [place] [address] Pharmacist Pharmacy 04/14/19 [facility], [facility] [address] [facility] [place] [address] Pharmacist Pharmacy 10/31/20 Flash Welder Relationship Specialty Start Date End Date Santo Love MD [address] [facility] [place] [address] PCP - General Family Practice 09/18/15 [facility] [address] [facility] [place] [address] Pharmacist Pharmacy 04/14/19 FarhanYazmin fierro, [facility] [address] [facility] [place] [address] Pharmacist Pharmacy 10/31/20 Flash Welder Relationship Specialty Start Date End Date Santo Love MD [address] [facility] [place] [address] PCP - General Family Practice 09/18/15 Jenny Brooke, [facility] [address] [facility] [place] [address] Pharmacist Pharmacy 04/14/19 Yazmin Meade, [facility] [address] [facility] [place] [address] Pharmacist Pharmacy 10/31/20 Flash Welder Relationship Specialty Start Date End Date Santo Love MD [address] [facility] [place] [address] PCP - General Family Practice 09/18/15 Jenny Brooke, [facility] [address] [facility] [place] [address] Pharmacist Pharmacy 04/14/19 Yazmin Meade, [facility] [address] [facility] [place] [address] Pharmacist Pharmacy 10/31/20 Flash Welder Relationship Specialty Start Date End Date Santo Love MD [address] [facility] [place] [address] PCP - General Family Practice 09/18/15 Jenny Brooke, [facility] [address] [facility] [place] [address] Pharmacist Pharmacy 04/14/19 [facility] [address] [facility] [place] [address] Pharmacist Pharmacy 10/31/20 Flash Welder Relationship Specialty Start Date End Date Santo Love MD [address] [facility] [place] [address] PCP - General Family Practice 09/18/15 [facility] [address] [facility] [place] [address] Pharmacist Pharmacy 04/14/19 Yazmin Meade, [facility] [address] [facility] [place] [address] Pharmacist Pharmacy 10/31/20 Flash Welder Relationship Specialty Start Date End Date Santo Love MD [address] [facility] [place] [address] PCP - General Family Practice 09/18/15 [facility] [address] [facility] [place] [address] Pharmacist Pharmacy 04/14/19 Yazmin Meade, [facility] [address] [facility] [place] [address] Pharmacist Pharmacy 10/31/20 Flash Welder Relationship Specialty Start Date End Date Santo Love MD [address] [facility] [place] [address] PCP - General Family Medicine 09/18/15 Jenny Brooke, [facility] [address] [facility] [place] [address] Pharmacist Pharmacy 04/14/19 [facility] [address] [facility] [place] [address] Pharmacist Pharmacy 10/31/20 Flash Welder Relationship Specialty Start Date End Date Santo Love MD [address] [facility] [place] [address] PCP - General Family Medicine 09/18/15 Jenny Brooke, [facility] [address] [facility] [place] [address] Pharmacist Pharmacy 04/14/19 [facility] [address] [facility] [place] [address] Pharmacist Pharmacy 10/31/20 Flash Welder Relationship Specialty Start Date End Date Santo Love MD [address] [facility] [place] [address] PCP - General Family Medicine 09/18/15 Jenny Brooke, [facility] [address] [facility] [place] [address] Pharmacist Pharmacy 04/14/19 [facility] [address] [facility] [place] [address] Pharmacist Pharmacy 10/31/20 Flash Welder Relationship Specialty Start Date End Date Santo Love MD [address] [facility] [place] [address] PCP - General Family Medicine 09/18/15 Jenny Brooke, [facility] [address] [facility] [place] [address] Pharmacist Pharmacy 04/14/19 Yazmin Meade, [facility] [address] [place] [address] Pharmacist Pharmacy 10/31/20 Flash Welder Relationship Specialty Start Date End Date Santo Love MD [address] [facility] [place] [address] PCP - General Family Medicine 09/18/15 Jenny Brooke, [facility] [address] [facility] [place] [address] Pharmacist Pharmacy 04/14/19 Yazmin Meade [facility] [address] [facility] [place] [address] Pharmacist Pharmacy 10/31/20 Flash Welder Relationship Specialty Start Date End Date Santo Love MD [address] [facility] [place] [address] PCP - General Family Medicine 09/18/15 Jenny Brooke, [facility] [address] [facility] [place] [address] Pharmacist Pharmacy 04/14/19 Yazmin Meade, [facility] [address] [facility] [place] [address] Pharmacist Pharmacy 10/31/20 Flash Welder Relationship Specialty Start Date End Date Santo Love MD [address] [facility] [place] [address] PCP - General Family Medicine 09/18/15 MendyJenny chatman, [facility] [address] [facility] [place] [address] Pharmacist Pharmacy 04/14/19 Yazmin Meade, [facility] [address] [facility] [place] [address] Pharmacist Pharmacy 10/31/20 Flash Welder Relationship Specialty Start Date End Date Santo Love MD [address] [facility] [place] [address] PCP - General Family Medicine 09/18/15 Jenny Brooke, [facility] [address] [facility] [place] [address] Pharmacist Pharmacy 04/14/19 [facility] [address] [facility] [place] [address] Pharmacist Pharmacy 10/31/20 Flash Welder Relationship Specialty Start Date End Date Santo Love MD [address] [facility] [place] [address] PCP - General Family Medicine 09/18/15 Jenny Brooke, [facility] [address] [facility] [place] [address] Pharmacist Pharmacy 04/14/19 [facility] [address] [facility] [place] [address] Pharmacist Pharmacy 10/31/20 Flash Welder Relationship Specialty Start Date End Date Santo Love MD [address] [facility] [place] [address] PCP - General Family Medicine 09/18/15 Jenny Brooke, [facility] [address] [facility] [place] [address] Pharmacist Pharmacy 04/14/19 Yazmin Meade, [facility] [address] [facility] [place] [address] Pharmacist Pharmacy 10/31/20 Flash Welder Relationship Specialty Start Date End Date Santo Love MD [address] [facility] [place] [address] PCP - General Family Medicine 09/18/15 Jenny Brooke, [facility] [address] [facility] [place] [address] Pharmacist Pharmacy 04/14/19 [facility] [address] [place] [address] Pharmacist Pharmacy 10/31/20 Flash Welder Relationship Specialty Start Date End Date Santo Love MD [address] [place] [address] PCP - General Family Medicine 09/18/15 [facility]JennySan [facility] [address] [place] [address] Pharmacist Pharmacy 04/14/19 [facility] [address] [place] [address] Pharmacist Pharmacy 10/31/20 Flash Welder Relationship Specialty Start Date End Date Santo Love MD [address] [place] [address] PCP - General Family Medicine 09/18/15 [facility]agaJenny[facility] [address] [place] [address] Pharmacist Pharmacy 04/14/19 [facility]ro[facility] [address] [facility] [place] [address] Pharmacist Pharmacy 10/31/20 Flash Welder Relationship Specialty Start Date End Date Santo Love MD [address] [place] [address] PCP - General Family Medicine 09/18/15 [facility]agaYomairaJennySan [facility] [address] [place] [address] Pharmacist Pharmacy 04/14/19 Farhan IglesiageovannaTwo [facility] [address] [place] [address] Pharmacist Pharmacy 10/31/20 Flash Welder Relationship Specialty Start Date End Date Santo Love MD [address] [place] [address] PCP - General Family Medicine 09/18/15 [facility] [address] [place] [address] Pharmacist Pharmacy 04/14/19 Team Status: Active Member [...] DO Admit Provider, Attending Pro vider Active Flash Welder Relationship Specialty Start Date End Date Santo Love MD [address] [place] [address] PCP - General Family Medicine 09/18/15 [facility] [facility] [address] [place] [address] Pharmacist Pharmacy 04/14/19 Team Status: Active Member [...] Dr. Nitish Sood MD Other Provider Active Flash Welder Relationship Specialty Start Date End Date Santo Love MD [address] [place] [address] PCP - General Family Medicine 09/18/15 OuaquagaJenny, [facility] [address] [facility] [place] [address] Pharmacist Pharmacy 04/14/19 Flash Welder Relationship Specialty Start Date End Date Santo Love MD [address] [facility] [place] [address] PCP - General Family Medicine 09/18/15 OuaquagaYomairaJenny, [facility] [address] [facility] [place] [address] Pharmacist Pharmacy 04/14/19 Flash Welder Relationship Specialty Start Date End Date Santo Love MD [address] [facility] [place] [address] PCP - General Family Medicine 09/18/15 OuaquagaYomairaJenny, [facility] [address] [facility] [place] [address] Pharmacist Pharmacy 04/14/19 Flash Welder Relationship Specialty Start Date End Date Santo Love MD [address] [facility] [place] [address] PCP - General Family Medicine 09/18/15 OuaquagaYomairaJenny, [facility] [address] [facility] [place] [address] Pharmacist Pharmacy 04/14/19 Team Status: Active Member [...] Ferrer DO Attending Provider, Referring Provider Active Flash Welder Relationship Specialty Start Date End Date Santo Love MD [address] [place] [address] PCP - General Family Medicine 09/18/15 Ouaquaga [facility] [address] [place] [address] Pharmacist Pharmacy 04/14/19 Team Status: Active Member Role Status Dates Dr. Santo Love MD Primary Care Provider, Referring Provider Active Dr. Cullen Ferrer DO Attending Provider, Other Prov ider Active Flash Welder Relationship Specialty Start Date End Date Santo Love MD [address] [place] [address] PCP - General Family Medicine 09/18/15 [facility] [address] [place] [address] Pharmacist Pharmacy 04/14/19 Flash Welder Relationship Specialty Start Date End Date Santo Love MD [address] [place] [address] PCP - General Family Medicine 09/18/15 OuaquagaJenny chatman, [facility] [address] [place] [address] Pharmacist Pharmacy 04/14/19 Flash Welder Relationship Specialty Start Date End Date Santo Love MD [address] [place] [address] PCP - General Family Medicine 09/18/15 OuaquagaJenny chatman, [facility] [address] [place] [address] Pharmacist Pharmacy 04/14/19 Flash Welder Relationship Specialty Start Date End Date Santo Love MD [address] [place] [address] PCP - General Family Medicine 09/18/15 Jenny Brooke, [facility] [address] [place] [address] Pharmacist Pharmacy 04/14/19 Flash Welder Relationship Specialty Start Date End Date Santo Love MD [address] [place] [address] PCP - General Family Medicine 09/18/15 Jenny Brooke, [facility] [address] [place] [address] Pharmacist Pharmacy 04/14/19 Flash Welder Relationship Specialty Start Date End Date Santo Love MD [address] [place] [address] PCP - General Family Medicine 09/18/15 Jenny Brooke, [facility] [address] [place] [address] Pharmacist Pharmacy 04/14/19 Flash Welder Relationship Specialty Start Date End Date Santo Love MD [address] [place] [address] PCP - General Family Medicine 09/18/15 MendyJenny chatman, [facility] [address] [place] [address] Pharmacist Pharmacy 04/14/19 Flash Welder Relationship Specialty Start Date End Date Santo Love MD [address] [place] [address] PCP - General Family Medicine 09/18/15 Jenny Brooke, [facility] [address] [place] [address] Pharmacist Pharmacy 04/14/19 Flash Welder Relationship Specialty Start Date End Date Santo Love MD [address] [facility] [place] [address] PCP - General Family Medicine 09/18/15 Jenny Brooke, [facility] [address] [facility] [place] [address] Pharmacist Pharmacy 04/14/19 Flash Welder Relationship Specialty Start Date End Date Santo Love MD [address] [facility] [place] [address] PCP - General Family Medicine 09/18/15 Jenny Brooke, [facility] [address] [place] [address] Pharmacist Pharmacy 04/14/19 Flash Welder Relationship Specialty Start Date End Date Santo Love MD [address] [place] [address] PCP - General Family Medicine 09/18/15 Mendy Jenny, [facility] [address] [place] [address] Pharmacist Pharmacy 04/14/19 Flash Welder Relationship Specialty Start Date End Date Santo Love MD [address] [place] [address] PCP - General Family Medicine 09/18/15 Jenny Brooke, [facility] [address] [place] [address] Pharmacist Pharmacy 04/14/19 Flash Welder Relationship Specialty Start Date End Date Santo Love MD [address] [place] [address] PCP - General Family Medicine 09/18/15 Jenny Brooke, [facility] [address] [place] [address] Pharmacist Pharmacy 04/14/19 Raisa Maradiaga APRN.PEDICURIST [address] [place] [address] Leather Scraper [facility] 10/10/24 Juliana Davis APRN.PEDICURIST [address] [place] [address] Le[facility] 10/10/24 Flash Welder Relationship Specialty Start Date End Date Santo Love MD [address] [place] [address] PCP - General Family Medicine 09/18/15 [facility] [address] [place] [address] Pharmacist Pharmacy 04/14/19 Raisa Maradiaga APRN.PEDICURIST [address] [place] [address] Leather Scraper Family [facility] 10/10/24 Juliana Davis APRN.PEDICURIST [address] [place] [address] Leather [facility] Family [facility] 10/10/24 Flash Welder Relationship Specialty Start Date End Date Santo Love MD [address] [place] [address] PCP - General Family Medicine 09/18/15 [facility]Jenny[facility] [address] [place] [address] Pharmacist Pharmacy 04/14/19 Raisa Maradiaga APRN.PEDICURIST [address] [place] [address] Leather Scraper Family [facility] 10/10/24 Juliana Davis APRN.PEDICURIST [address] [place] [address] Leather Sc[facility] Family [facility] 10/10/24 Flash Welder Relationship Specialty Start Date End Date Santo Love MD [address] [place] [address] PCP - General Family Medicine 09/18/15 [facility] [address] [place] [address] Pharmacist Pharmacy 04/14/19 Raisa Maradiaga APRN.PEDICURIST [address] [place] [address] Leather Scraper [facility] 10/10/24 Juliana Davis APRN.PEDICURIST [address] [place] [address] Leather Scraper [facility] 10/10/24 Flash Welder Relationship Specialty Start Date End Date Santo Love MD [address] [place] [address] PCP - General Family Medicine 09/18/15 [facility] [address] [place] [address] Pharmacist Pharmacy 04/14/19 Raisa Maradiaga APRN.PEDICURIST [address] [place] [address] Leather Scraper [facility] 10/10/24 Juliana Davis APRN.PEDICURIST [address] [place] [address] [facility] 10/10/[facility] Flash Welder Relationship Specialty Start Date End Date Santo Love MD [address] [place] [address] PCP - General Family Medicine 09/18/15 Jenny Brooke, [facility] [address] [place] [address] Pharmacist Pharmacy 04/14/19 Raisa Maradiaga APRN.PEDICURIST [address] [place] [address] [facility] 10/10/24 Juliana Davis APRN.PEDICURIST [address] [place] [address] [facility] 10/10/24 Flash Welder Relationship Specialty Start Date End Date Santo Love MD [address] [place] [address] PCP - General Family Medicine 09/18/15 [place] [facility] [address] [place] [address] Pharmacist Pharmacy 04/14/19 Raisa Maradiaga APRN.PEDICURIST [address] [place] [address] [facility] 10/10/24 Juliana Davis APRN.PEDICURIST [address] [place] [address] [facility] 10/10/24 Flash Welder Relationship Specialty Start Date End Date Santo Love MD [address] [place] [address] PCP - General Family Medicine 09/18/15 [facility] [address] [place] [address] Pharmacist Pharmacy 04/14/19 Raisa Maradiaga APRN.PEDICURIST [address] [place] [address] [facility] 10/10/24 Juliana Davis APRN.PEDICURIST [address] [facility] [place] [address] [facility] 10/10/24 Flash Welder Relationship Specialty Start Date End Date Santo Love MD [address] [place] [address] PCP - General Family Medicine 09/18/15 Ouaquaga Jenny, [facility] [address] [place] [address] Pharmacist Pharmacy 04/14/19 Raisa Maradiaga APPLICATION SERVICES MANAGER.PEDICURIST [address] [place] [address] Leather Scraper Family [facility] 10/10/24 Juliana Davis APRN.PEDICURIST [address] [facility] [place] [address] Leather Scraper [facility] 10/10/24 Flash Welder Relationship Specialty Start Date End Date Santo Love MD [address] [place] [address] PCP - General Family Medicine 09/18/15 Ouaquaga Jenny, [facility] [address] [place] [address] Pharmacist Pharmacy 04/14/19 Raisa Maradiaga APPLICATION SERVICES MANAGER.PEDICURIST [address] [place] [address] [facility] 10/10/24 Juliana Davis APRN.PEDICURIST [address] [facility] [place] [address] [facility] 10/10/24 Flash Welder Relationship Specialty Start Date End Date Santo Love MD [address] [place] [address] PCP - General Family Medicine 09/18/15 [facility]agaJenny [facility] [address] [place] [address] Pharmacist Pharmacy 04/14/19 Raisa Maradiaga, APPLICATION SERVICES MANAGER.PEDICURIST [address] [place] [address] Leather Scraper Family [facility] 10/10/24 Juliana Davis APPLICATION SERVICES MANAGER.PEDICURIST [address] [place] [address] Leather Scraper [facility] 10/10/24 Flash Welder Relationship Specialty Start Date End Date Santo Love MD [address] [place] [address] PCP - General Family Medicine 09/18/15 MendyJenny [facility]manTwo [facility] [address] [place] [address] Pharmacist Pharmacy 04/14/19 Raisa Maradiaga, APPLICATION SERVICES MANAGER.PEDICURIST [address] [place] [address] [facility] 10/10/24 Juliana Davis APPLICATION SERVICES MANAGER.PEDICURIST [address] [place] [address] Leather Scraper [facility] 10/10/24 Flash Welder Relationship Specialty Start Date End Date Santo Love MD [address] [place] [address] PCP - General Family Medicine 09/18/15 Jenny Brooke RPh [address] [place] [address] Pharmacist Pharmacy 04/14/19 Raisa Maradiaga APRN.PEDICURIST [address] [place] [address] [facility] 10/10/24 Juliana Davis APRN.PEDICURIST [address] [place] [address] [facility] 10/10/24 Flash Welder Relationship Specialty Start Date End Date Santo Love MD [address] [place] [address] PCP - General Family Medicine 09/18/15 [facility]Jenny [facility] [address] [place] [address] Pharmacist Pharmacy 04/14/19 Raisa Maradiaga APRN.PEDICURIST [address] [place] [address] [facility] 10/10/24 Juliana Davis APRN.PEDICURIST [address] [place] [address] [facility] 10/10/24 Flash Welder Relationship Specialty Start Date End Date Santo Love MD [address] [place] [address] PCP - General Family Medicine 09/18/15 [facility]Jenny [facility] [address] [place] [address] Pharmacist Pharmacy 04/14/19 Raisa Maradiaga APRN.PEDICURIST [address] [place] [address] [facility] 10/10/24 Juliana Davis APRN.PEDICURIST [address] [place] [address] [facility] 10/10/24 Flash Welder Relationship Specialty Start Date End Date Santo Love MD [address] [place] [address] PCP - General Family Medicine 09/18/15 Jenny Brooke, [facility] [address] [place] [address] Pharmacist Pharmacy 04/14/19 Raisa Maradiaga APRN.PEDICURIST [address] [place] [address] [facility] 10/10/24 Juliana Davis APRN.PEDICURIST [address] [place] [address] [facility] 10/10/24 Flash Welder Relationship Specialty Start Date End Date Santo Love MD [address] [place] [address] PCP - General Family Medicine 09/18/15 Jenny Brooke, [facility] [address] [place] [address] Pharmacist Pharmacy 04/14/19 Raisa Maradiaga APRN.PEDICURIST [address] [place] [address] [facility] 10/10/24 Juliana Davis APRN.PEDICURIST [address] [place] [address] [facility] 10/10/24 Flash Welder Relationship Specialty Start Date End Date Santo Love MD [address] [place] [address] PCP - General Family Medicine 09/18/15 [facility] [address] [place] [address] Pharmacist Pharmacy 04/14/19 Raisa Maradiaga APRN.PEDICURIST [address] [place] [address] [facility] 10/10/24 Juliana Davis APRN.PEDICURIST [address] [place] [address] [facility] 10/10/24 Flash Welder Relationship Specialty Start Date End Date Santo Love MD [address] [place] [address] PCP - General Family Medicine 09/18/15 [facility] [address] [place] [address] Pharmacist Pharmacy 04/14/19 Raisa Maradiaga APRN.PEDICURIST [address] [place] [address] [facility] 10/10/24 Juliana Davis APRN.PEDICURIST [address] [place] [address] [facility] 10/10/24 Flash Welder Relationship Specialty Start Date End Date Santo Love MD [address] [place] [address] PCP - General Family Medicine 09/18/15 [facility] [address] [place] [address] Pharmacist Pharmacy 04/14/19 Raisa Maradiaga APPLICATION SERVICES MANAGER.PEDICURIST [address] [place] [address] Leather Scraper Family [facility] 10/10/24 Juliana Davis APPLICATION SERVICES MANAGER.PEDICURIST [address] [facility] [place] [address] Leather Scraper Family [facility] 10/10/24 Flash Welder Relationship Specialty Start Date End Date Santo Love MD [address] [place] [address] PCP - General Family Medicine 09/18/15 [facility]YomairaJenny[facility] [address] [place] [address] Pharmacist Pharmacy 04/14/19 Raisa Maradiaga APPLICATION SERVICES MANAGER.PEDICURIST [address] [place] [address] Le[facility] 10/10/24 Juliana Davis APRN.PEDICURIST [address] [place] [address] [facility] 10/10/24 Flash Welder Relationship Specialty Start Date End Date Santo Love MD [address] [facility] [place] [place] [address] PCP - General Family Medicine 09/18/15 Jenny Brooke RPh [address] [facility] [place] [address] Pharmacist Pharmacy 04/14/19 Raisa Maradiaga APRN.PEDICURIST [address] [place], [place] [address] [facility] 10/10/24 Juliana Davis APRN.PEDICURIST [address] [facility] [place] [id number] [facility] 10/10/24 Goals (unrecognized section and [...] BE BASED ON THE PRIMARY CLINICAL RECORDS. [facility]. provides no warranty or guarantee of the accuracy or completeness of information in this document.
[2025-10-09] VITALS (8 sets, daily range): BP systolic 112–159; BP diastolic 53–88; PULSE 65–79; RESP 14–18; TEMP 36.3–36.9; O2SAT 94–98; BMI 26.8
[2025-10-09 00:09] LABS: Prothrombin Time (Protime)PT. 12.6 SECONDS (11.7-14.9)
[2025-10-09] MEDS: Lactated Ringers 1,000 ML 999 ML IV (00:13)
[2025-10-09] MEDS: Pantoprazole Sodium 40 MG in 0.9% Normal Saline (100mL MB+) 100 ML 300 MG IV ×2 (01:20→20:28)
[2025-10-09] MEDS: Lactated Ringers 1,000 ML 125 ML IV ×2 (01:20→09:47)
[2025-10-09 02:28] LABS: Reflex Lactate? Y
[2025-10-09 03:01] LABS: Hematocrit 28.6 % (37-47); Hemoglobin 9.4 g/dL (12.0-15.0)
[2025-10-09 08:08] LABS: Hematocrit 26.2 % (37-47); Hemoglobin 8.7 g/dL (12.0-15.0); Immature Granulocytes Count 0.110 X10^3/uL (0.0-0.0); Mean Corp Hgb Conc 33.2 g/dL (32-36); Mean Corpuscular Volume 92.9 fL (81-99); Mean Platelet Vol. 10.2 fl (6.2-12.0); NRBC Flagged by Analyzer 0 % (0-5); Platelet Count 177 K/mm3 (150-450); RBC Distribution Width CV 13.6 % (11.6-14.6); RBC Distribution Width SD 46.7 fl (35.1-43.9); Red Blood Count 2.82 M/mm3 (4.2-5.4); White Blood Count 7.4 K/mm3 (4.4-11.0)
[2025-10-09 08:34] LABS: Anion Gap 7 (5-15); BUN 15 mg/dL (4-19); BUN/Creat Ratio 24.4 RATIO (10-20); Calcium,Total 8.6 mg/dL (7.6-11.0); Carbon Dioxide 25.3 mmol/L (21.0-32.0); Chloride 109 mmol/L (98-108); Estimated Creatinine Clearance 53.23 ml/min (50-250); Glucose 141 mg/dL (70-99); Potassium 4.1 mmol/L (3.3-5.1)
--- NOTE | 2025-10-09 09:12 | CASEMGMT ---
Dx: orthostatic hypotension, GI Bleed LACE: 2 6-Clicks: 20 Medical record reviewed and patient evaluated for identification of discharge planning needs. Based on this review, at this time criteria are not present to indicate a need for discharge planning. Will remain available to assist with discharge planning needs as identified or requested.
[2025-10-09] MEDS: BRIMONIDINE 0.2% 5ML BOTTLE 1 DRP OPHTHALMIC ×2 (10:55→20:21)
[2025-10-09] MEDS: Calcium Carb/Vitamin D 1 TABLET Tablet PO (10:57)
[2025-10-09] MEDS: Insulin Glargine-YFGN 100 UNIT/ML Pen 30 UNIT SC (10:57)
--- NOTE | 2025-10-09 11:48 | PCM.PN.HOSP ---
Subjective Subjective Denies any dizziness, will repeat orthostatic vital signs this morning Objective Data Objective Data Vital Signs: Vital Signs Temp Pulse Resp BP Pulse Ox O2 Del Method 98.3 F 69 18 132/53 H 95 Room Air 10/09/25 04:00 10/09/25 08:34 10/09/25 04:00 10/09/25 08:34 10/09/25 10:33 10/09/25 10:33 Oxygen Delivery Method Room Air Weight: 156 lb 1.396 oz Body Mass Index (BMI) 26.8 Intake & Output: Intake and Output for Last 24 Hours 10/08/25 10/09/25 10/10/25 03:59 03:59 03:59 Intake Total 1293.75 / 1293.75 1000 / 1000 Balance 1293.75 / 1293.75 1000 / 1000 Lab / Micro Data 10/09/25 07:50 10/09/25 07:50 Labs: Laboratory Results - last 24 hr 10/08/25 22:20: WBC 14.4 H, RBC 3.50 L, Hgb 10.6 L, Hct 33.1 L, MCV 94.6, MCH 30.3, MCHC 32.0, RDW Std Deviation 47.6 H, RDW Coeff of Emperatriz 13.7, Plt Count 246, MPV 10.6, Immature Gran % (Auto) 1.300 H, Neut % (Auto) 83.7 H, Lymph % (Auto) 7.8 L, Banner % (Auto) 6.3, Eos % (Auto) 0.3, Baso % (Auto) 0.6, Absolute Neuts (auto) 12.1 H, Absolute Lymphs (auto) 1.12, Nucleated RBC % 0, PT 12.6, INR 0.9, Sodium 140, Potassium 4.5, Chloride 104, Carbon Dioxide 24.6, Anion Gap 12, BUN 24 H, Creatinine 0.92, Estim Creat Clear Calc 46.34 L, Est GFR (MDRD) Non-Af 62, BUN/Creatinine Ratio 26.4 H, Glucose 373 H, Lactic Acid 2.6 H*, Calcium 9.1, Blood Type A POSITIVE, Antibody Screen NEGATIVE 10/09/25 00:43: POC Glucose 245 H 10/09/25 02:51: Hgb 9.4 L, Hct 28.6 L, Lactic Acid 1.2 10/09/25 05:55: POC Glucose 173 H 10/09/25 07:50: WBC 7.4, RBC 2.82 L, Hgb 8.7 L, Hct 26.2 L, MCV 92.9, MCH 30.9, MCHC 33.2, RDW Std Deviation 46.7 H, RDW Coeff of Emperatriz 13.6, Plt Count 177, MPV 10.2, Immature Gran % (Auto) 1.500 H, Neut % (Auto) 66.7, Lymph % (Auto) 17.8 L, Banner % (Auto) 11.4 H, Eos % (Auto) 1.9, Baso % (Auto) 0.7, Absolute Neuts (auto) 4.9, Absolute Lymphs (auto) 1.31, Nucleated RBC % 0, Sodium 141, Potassium 4.1, Chloride 109 H, Carbon Dioxide 25.3, Anion Gap 7, BUN 15, Creatinine 0.63 L, Estim Creat Clear Calc 53.23, Est GFR (MDRD) Non-Af 89, BUN/Creatinine Ratio 24.4 H, Glucose 141 H, Calcium 8.6 10/09/25 09:58: POC Glucose 276 H Physical Exam Narrative General: Alert, Oriented x3, Cooperative, No apparent distress HEENT: Atraumatic, PERRLA, EOMI, Normocephalic Oral: Moist Mucosa Neck: Supple, No JVD Lungs: Diminished, Normal air movement, No rhonchi, No wheeze, No rales Cardiovascular: Regular rate, Regular Rhythm, Normal S1, Normal S2, No murmurs Abdomen: Soft, Non Tender, Non-Distended, No Hepato-splenomegaly Extremities: No edema, Capillary Refill Less than 3 Seconds Skin: No rashes, No breakdown Musculoskeletal: No Tenderness to Palpation of Joints or Extremities Neurological: No focal neurological deficits, moves all extremities Psych/Mental Status: Normal Affect, Appropriate Assessment & Plan Assessment/Plan (1) Acute lower GI bleeding: (2) Orthostatic hypotension: PLAN: Plan 1. Orthostatic hypotension with possible acute lower GI bleed after polypectomy in the setting of chronic anemia ? Hemoglobin previously was in the eights, currently 8.7 this is after 2 L of fluid ? Awaiting GI evaluation ? She has had a history of an upper GI bleed from an ulcer, continue with PPI ? Recheck orthostatic vital signs this morning 2. CAD status post stent/paroxysmal A-fib/essential HTN/HLD ? Continue with her home blood pressure medications ? Continue with her statin ? Will monitor and make adjustments as necessary ? s she is not on any anticoagulation secondary to her history of GI bleeds 3. DM2 ? Insulin ? Accu-Cheks DVT: SCDs Charges/Coding Visit Charges Inpatient E&M: 41939 Subs Hosp L2
[2025-10-09 12:36] LABS: Ferritin 181 ng/mL (22-378); Iron 61 ug/dL (50-170); Iron Binding Capacity,Unsat 143 ug/dL (228-428)
[2025-10-09 12:40] LABS: Iron Binding Capacity,Total 204 ug/dL (250-450)
[2025-10-09 15:01] LABS: Hematocrit 26.4 % (37-47); Hemoglobin 8.5 g/dL (12.0-15.0)
--- NOTE | 2025-10-09 17:37 | CON.PCM.GI_ITS ---
HPI Consult Data Date of Consult: 10/09/25 HPI Narrative Reason for Consultation: GI bleed HPI Narrative: The patient is an 80-year-old female with a history of a recent colonoscopy and polypectomy performed on October 02 at [facility] by Dr. Robles. She presented to the Emergency Department after experiencing multiple episodes of bright red rectal bleeding starting around 6 PM today. She reports having 5-6 liquid, bloody bowel movements since then. She denies dizziness, lightheadedness, or vertigo but reports feeling very weak and does not feel good. She denies abdominal pain, chest pain, or shortness of breath. She was given 1 L of IV fluids in the ED and subsequently admitted. * Vitals/Orthostatics (in ED): * Supine: BP 151/61, HR 91/min * Standing: BP 96/59 (drop of >20 mmHg systolic), HR 71 (Note: The provided standing heart rate of 71 seems lower than the supine rate, which is atypical for positive orthostatics, but the BP drop confirms orthostatic hypotension.) * Labs:?Hemoglobin dropped from 10.5 g/dL to 8.5 g/dL.] PENDING SALE TO [facility] Medical History Anemia History of diverticulitis Non-smoker History of stress test Cardiology follow-up encounter On apixaban therapy Old myocardial infarction Liver mass 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 tachycardia Pure hypercholesterolemia Malignant neoplasm of right breast GERD (gastroesophageal reflux disease) Paroxysmal atrial fibrillation Type 2 diabetes mellitus Essential hypertension Presence of stent in coronary artery (~05/23/09) Atherosclerotic heart disease of [place] coronary artery without angina pectoris Home Medications ?Medication ?Instructions ?Recorded ?Last Taken ?Type cyanocobalamin (vitamin B-12) 1,000 mcg PO DAILY vitam in 09/06/19 12/14/23 History 1,000 mcg tablet deficient pravastatin 80 mg tablet 80 mg PO QHS cholesterol 03/2012/14/23 History pyridoxine (vitamin B6) 100 mg 100 mg PO DAILY vitamin deficient 09/06/19 12/14/23 History tablet nitroglycerin 0.4 mg sublingual 0.4 mg sublingual Q5-1 5M PRN chest 09/08/19 Unknown Rx tablet pain #90 tabs verapamil 300 mg capsule 24hr 300 mg PO QHS blood pres sure 08/06/23 12/14/[address],ext.release brimonidine 0.2 % eye drops 1 drp ophthalmic (eye) BID Glaucoma 12/11/23 12/14/23 History calcium 600 mg (as 1 tab PO DAILY vitamin defic ient 12/11/23 12/14/23 History carbonate)-vitamin D3 5 mcg (200 unit) tablet (Calcium 600 + D(3)) glipizide 2.5 mg tablet 2.5 mg PO BID 10/04/24 Unkno wn History insulin glargine 100 unit/mL (3 34 unit subcut QDAY Unknown History mL) subcutaneous pen (Lantus Solostar U-100 Insulin) losartan 100 mg tablet 100 mg PO DAILY 10/08/25 Unk nown History meclizine 12.5 mg tablet 12.5 mg PO Q6H dizziness 05/26 Unknown History ondansetron 4 mg disintegrating 4 mg PO Q6H nausea 05/26 Unknown History tablet sitagliptin phosphate 25 mg tablet 25 mg PO DAILY 05/26 Unknown History ([place]illy) Allergy/AdvReac Type Severity Reaction Status Date / Time alendronate sodium (From AdvReac Severe myalgias Verified 10/08/25 22:09 Fosamax) amoxicillin (Amoxicillin) AdvReac Nausea/Vom/ Verified 10/08/25 22:09 Diarrhea metformin AdvReac Nausea/Vom/ Verified 10/08/25 22:09 Diarrhea shellfish derived AdvReac Nausea/Vom/ Verified 10/08/25 22:09 Diarrhea Family History Mother Hypertension Diabetes CVA (cerebral vascular accident) CAD (coronary artery disease) Father History of DVT (deep vein thrombosis) Surgical History History of eyelid surgery (05/28/23) History of total abdominal hysterectomy S/P lumpectomy, right breast Presence of coronary angioplasty implant and graft (~05/23/09) Social History household members: family housing: house Smoking Status: Never smoker alcohol intake: never substance use type: does not use caffeine: Yes Type: coffee Number of servings: 2 ROS Constitutional Constitutional: Denies fatigue, fever(s), poor appetite, weight gain or weight loss Gastrointestinal Gastrointestinal: Denies belching, bloating, change in bowel habits, change in stool character, chewing difficulty, coffee ground emesis, constipation, cramping, diarrhea, dyspepsia, dysphagia, early satiety, excessive flatus, fecal incontinence, heartburn, hematemesis, hematochezia, hemorrhoids, loose stools, melena, nausea, odynophagia, rectal bleeding, tenesmus, vomiting or weight changes Physical Exam Const alert, oriented x3, no apparent distress and healthy appearing General Appearance: cooperative GI normal to inspection, nondistended, normoactive bowel sounds, soft to palpation, non-tender and non-distended Percussion: normal to percussion Rectal Exam: deferred Lab / Micro Data 10/09/25 14:43 10/09/25 07:50 Labs: Laboratory Results - last 24 hr 10/08/25 22:20: WBC 14.4 H, RBC 3.50 L, Hgb 10.6 L, Hct 33.1 L, MCV 94.6, MCH 30.3, MCHC 32.0, RDW Std Deviation 47.6 H, RDW Coeff of Emperatriz 13.7, Plt Count 246, MPV 10.6, Immature Gran % (Auto) 1.300 H, Neut % (Auto) 83.7 H, Lymph % (Auto) 7.8 L, [place] % (Auto) 6.3, Eos % (Auto) 0.3, Baso % (Auto) 0.6, Absolute Neuts (auto) 12.1 H, Absolute Lymphs (auto) 1.12, Nucleated RBC % 0, PT 12.6, INR 0.9, Sodium 140, Potassium 4.5, Chloride 104, Carbon Dioxide 24.6, Anion Gap 12, BUN 24 H, Creatinine 0.92, Estim Creat Clear Calc 46.34 L, Est GFR (MDRD) Non-Af 62, BUN/Creatinine Ratio 26.4 H, Glucose 373 H, Lactic Acid 2.6 H*, Calcium 9.1, Blood Type A POSITIVE, Antibody Screen NEGATIVE 10/09/25 00:43: POC Glucose 245 H 10/09/25 02:51: Hgb 9.4 L, Hct 28.6 L, Lactic Acid 1.2 10/09/25 05:55: POC Glucose 173 H 10/09/25 07:50: WBC 7.4, RBC 2.82 L, Hgb 8.7 L, Hct 26.2 L, MCV 92.9, MCH 30.9, MCHC 33.2, RDW Std Deviation 46.7 H, RDW Coeff of Emperatriz 13.6, Plt Count 177, MPV 10.2, Immature Gran % (Auto) 1.500 H, Neut % (Auto) 66.7, Lymph % (Auto) 17.8 L, [place] % (Auto) 11.4 H, Eos % (Auto) 1.9, Baso % (Auto) 0.7, Absolute Neuts (auto) 4.9, Absolute Lymphs (auto) 1.31, Nucleated RBC % 0, Sodium 141, Potassium 4.1, Chloride 109 H, Carbon Dioxide 25.3, Anion Gap 7, BUN 15, Creatinine 0.63 L, Estim Creat Clear Calc 53.23, Est GFR (MDRD) Non-Af 89, BUN/Creatinine Ratio 24.4 H, Glucose 141 H, Calcium 8.6, Iron 61, TIBC 204 L, Iron Saturation 29.9, U nsaturated IBC 143 L, Ferritin 181 10/09/25 09:58: POC Glucose 276 H 10/09/25 13:59: POC Glucose 252 H 10/09/25 14:43: Hgb 8.5 L, Hct 26.4 L Assessment & Plan Assessment/Plan (1) Acute lower GI bleeding: (2) Gastric ulcer: (3) Orthostatic hypotension: PLAN: Assessment The patient presents with significant lower gastrointestinal bleeding (LGIB) evidenced by bright red rectal bleeding and a 2.0 g/dL drop in hemoglobin following a recent colonoscopy with polypectomy. The positive orthostatic vital signs indicate volume depletion likely secondary to blood loss. The temporal relationship between the procedure and the bleeding strongly suggests a post- polypectomy hemorrhage. Plan * Diagnostics: Emergent endoscopy and colonoscopy to identify the source of bleeding and facilitate therapeutic intervention (e.g., clipping, cautery). * Therapeutics: * Continue intravenous fluid resuscitation to address volume depletion. * Type and crossmatch blood; transfuse packed red blood cells as indicated to stabilize hemoglobin levels (e.g., goal Hgb > 7 g/dL or higher given symptoms/age). * Continuous hemodynamic monitoring in an inpatient setting. * Monitor serial hemoglobin levels every 6 hours or as clinically indicated. Charges/Coding Visit Charges Inpatient E&M: 55165 Init Hosp L3
[2025-10-09] MEDS: Polyethylene Glycol 3350 BOWEL PREP PO (22:18)
[2025-10-10] VITALS (11 sets, daily range): BP systolic 124–173; BP diastolic 51–67; PULSE 65–85; RESP 16–20; TEMP 36.2–36.7; O2SAT 93–100; BMI 26.6
[2025-10-10 05:21] LABS: Hematocrit 26.6 % (37-47); Hemoglobin 8.7 g/dL (12.0-15.0); Immature Granulocytes Count 0.100 X10^3/uL (0.0-0.0); Mean Corp Hgb Conc 32.7 g/dL (32-36); Mean Corpuscular Volume 93.3 fL (81-99); Mean Platelet Vol. 10.1 fl (6.2-12.0); NRBC Flagged by Analyzer 0 % (0-5); Platelet Count 201 K/mm3 (150-450); RBC Distribution Width CV 13.9 % (11.6-14.6); RBC Distribution Width SD 47.2 fl (35.1-43.9); Red Blood Count 2.85 M/mm3 (4.2-5.4); White Blood Count 9.7 K/mm3 (4.4-11.0)
[2025-10-10 05:46] LABS: Anion Gap 9 (5-15); BUN 8 mg/dL (4-19); BUN/Creat Ratio 12.3 RATIO (10-20); Calcium,Total 8.8 mg/dL (7.6-11.0); Carbon Dioxide 24.0 mmol/L (21.0-32.0); Chloride 108 mmol/L (98-108); Estimated Creatinine Clearance 53.23 ml/min (50-250); Glucose 136 mg/dL (70-99); Potassium 3.9 mmol/L (3.3-5.1)
--- NOTE | 2025-10-10 05:55 | EKG12_ITS ---
Test Reason : PRE-OP Blood Pressure : */* mmHG Vent. Rate : 68 BPM Atrial Rate : 68 BPM P-R Int : 304 ms QRS Dur : 84 ms QT Int : 320 ms P-R-T Axes : 50 10 46 degrees QTcB Int : 340 ms Sinus rhythm with 1st degree A-V block Low voltage QRS Possible Septal infarct (cited on or before 12-Dec-2023) Abnormal ECG Confirmed by Facundo Knowles ([id number]), publishing editor KATH LOZANO ([id number]) on 10/11/2025 11:40:11 AM Referred By: Confirmed By: Facundo Knowles
[2025-10-10 08:00] LABS: Magnesium 1.8 mg/dL (1.5-2.2)
[2025-10-10] MEDS: VERAPAMIL HCL 300 MG CAP24H.PCT PO (08:19)
[2025-10-10] MEDS: BRIMONIDINE 0.2% 5ML BOTTLE 1 DRP OPHTHALMIC ×2 (08:20→22:47)
[2025-10-10] MEDS: Calcium Carb/Vitamin D 1 TABLET Tablet PO (08:20)
[2025-10-10] MEDS: 0.9% Saline Lock 10 ML Syringe IV (08:24)
--- NOTE | 2025-10-10 10:04 | PN.HOSP_ITS ---
Subjective Subjective Doing well, no issues overnight. Hemoglobin stable planning for EGD and colonoscopy today Objective Data Objective Data Vital Signs: Vital Signs Temp Pulse Resp BP Pulse Ox O2 Del Method 97.5 F L 77 18 127/62 H 94 Room Air 10/10/25 08:15 10/10/25 08:15 10/10/25 08:15 10/10/25 08:15 10/10/25 08:15 10/10/25 08:15 Oxygen Delivery Method Room Air Weight: 156 lb 1.396 oz Body Mass Index (BMI) 26.6 Intake & Output: Intake and Output for Last 24 Hours 10/09/25 10/10/25 10/11/25 03:59 03:59 03:59 Intake Total 1293.75 / 1293.75 5220 / 5220 Balance 1293.75 / 1293.75 5220 / 5220 Lab / Micro Data 10/10/25 05:01 10/10/25 05:01 Labs: Laboratory Results - last 24 hr 10/09/25 07:50: Iron 61, TIBC 204 L, Iron Saturation 29.9, Unsaturated IBC 143 L , Ferritin 181 10/09/25 09:58: POC Glucose 276 H 10/09/25 13:59: POC Glucose 252 H 10/09/25 14:43: Hgb 8.5 L, Hct 26.4 L 10/09/25 17:31: POC Glucose 102 10/09/25 22:24: POC Glucose 68 L 10/10/25 01:24: POC Glucose 108 H 10/10/25 05:01: WBC 9.7, RBC 2.85 L, Hgb 8.7 L, Hct 26.6 L, MCV 93.3, MCH 30.5, MCHC 32.7, RDW Std Deviation 47.2 H, RDW Coeff of Emperatriz 13.9, Plt Count 201, MPV 10.1, Immature Gran % (Auto) 1.000 H, Neut % (Auto) 82.0 H, Lymph % (Auto) 9.1 L , [place] % (Auto) 6.4, Eos % (Auto) 0.9, Baso % (Auto) 0.6, Absolute Neuts (auto) 7.9 H, Absolute Lymphs (auto) 0.88, Nucleated RBC % 0, Sodium 141, Potassium 3.9, Chloride 108, Carbon Dioxide 24.0, Anion Gap 9, BUN 8, Creatinine 0.63 L, Estim Creat Clear Calc 53.23, Est GFR (MDRD) Non-Af 89, BUN/Creatinine Ratio 12.3, Glucose 136 H, Hemoglobin A1c 7.5 H, Calcium 8.8, Magnesium 1.8 10/10/25 06:16: POC Glucose 126 H Physical Exam Narrative General: Alert, Oriented x3, Cooperative, No apparent distress HEENT: Atraumatic, PERRLA, EOMI, Normocephalic Oral: Moist Mucosa Neck: Supple, No JVD Lungs: Diminished, Normal air movement, No rhonchi, No wheeze, No rales Cardiovascular: Regular rate, Regular Rhythm, Normal S1, Normal S2, No murmurs Abdomen: Soft, Non Tender, Non-Distended, No Hepato-splenomegaly Extremities: No edema, Capillary Refill Less than 3 Seconds Skin: No rashes, No breakdown Musculoskeletal: No Tenderness to Palpation of Joints or Extremities Neurological: No focal neurological deficits, moves all extremities Psych/Mental Status: Normal Affect, Appropriate Assessment & Plan Assessment/Plan (1) Acute lower GI bleeding: (2) Orthostatic hypotension: PLAN: Plan 1. Orthostatic hypotension with possible acute lower GI bleed after polypectomy in the setting of chronic anemia ? Hemoglobin previously was in the eights, currently 8.7 this is after 2 L of fluid ?Plan for EGD and colonoscopy, given the stability of her hemoglobin can potentially discharge after interventions today if is not too late in the evening ? She has had a history of an upper GI bleed from an ulcer, continue with PPI 2. CAD status post stent/paroxysmal A-fib/essential HTN/HLD ? Continue with her home blood pressure medications ? Continue with her statin ? Will monitor and make adjustments as necessary ? s she is not on any anticoagulation secondary to her history of GI bleeds 3. DM2 ? Insulin ? Accu-Cheks DVT: SCDs Charges/Coding Visit Charges Inpatient E&M: 88247 Subs Hosp L2
[2025-10-10] MEDS: Lactated Ringers 1,000 ML 15 ML IV (14:37)
--- NOTE | 2025-10-10 15:10 | PRE.ANES_ITS ---
ASA Classification* ASA Classification ASA Classification: 3 Assessment & Plan Anesthesia* Anesthesia Assessment Anesthesia Assessment: Discussed sedation and/or anesthesia options, risks, benefits, and alternatives with patient/parents/legal guardian/POA. Questions invited. The patient/parents/legal guardian/POA seems to understand and agrees to proceed with anesthesia plan. Reviewed the physical assessment, medical history, allergy history and patient home medications list prior to surgery/procedure/anesthetic and documented any changes. Performed airway and anesthesia risk assessments. Anesthesia Type Anesthesia Type: MAC History Source History Obtained from:: Patient Anesthesia Focused Assessment* Temperature: 97.5 F Pulse Rate: 77 Blood Pressure: 127/62 Respiratory Rate: 18 Pulse Ox: 94 Airway Assessment Mouth opens: >3 cm Mallampati Score: III Teeth Condition: Dentures Neck Range of motion (ROM): Limited ROM Labs Anesthesia Preop lab: CBC WBC, (4.4-11.0) 9.7 K/mm3 Today, 05:01 RBC, (4.2-5.4) 2.85 M/mm3 L Today, 05:01 Hgb, (12.0-15.0) 8.7 g/dL L Today, 05:01 Hct, (37-47) 26.6 % L Today, 05:01 Plt Count, (150-450) 201 K/mm3 Today, 05:01 CHEMISTRY Potassium, (3.3-5.1) 3.9 mmol/L Today, 05:01 Sodium, (133-145) 141 mmol/L Today, 05:01 Magnesium, (1.5-2.2) 1.8 mg/dL Today, 05:01 BUN, (4-19) 8 mg/dL Today, 05:01 Creatinine, (0.70-1.20) 0.63 mg/dL L Today, 05:01 Glucose, (70-99) 136 mg/dL H Today, 05:01 POC Glucose, (74-106) 120 mg/dL H Today, 11:06 COAG PT, (11.7-14.9) 12.6 SECONDS 10/08/25, 22:20 Pre-Assessment Diagnosis/Proposed Procedure Planned Operative Procedure(s): EGD and colonoscopy Anesthesia History Anesthesia History - caustic strength inspector: Anesthesia History - caustic strength inspector Hx Hospitalization Yes: DEC 2023, EGD BLEEDING 02/01/24 15:07 ULCER. Any Problems With Anesthesia No 10/10/25 08:02 Cholinesterase deficiency No 10/10/25 08:02 You/Your Family Experience No 10/10/25 08:02 fever (hyperthermia) with Relationship Recent Exposure to Contagious No 10/10/25 08:02 Disease Does patient have nerve No 10/10/25 08:02 stimulator Patient instructed to have No 10/10/25 08:02 device shut off --Does patient have Pacemaker No 10/10/25 14:41 or ICD? When Was Last Pacemaker Check QUESTION #4 FULL TEXT: You/Your Family Experience fever (hyperthermia) with Anesthesia Last Oral Intake Last Oral intake: Last Oral Intake NPO since 00:01 10/10/25 14:41 Meds taken in AM with sips of Yes 10/10/25 14:41 water? Meds patient instructed to take am of surgery PONV PONV - caustic strength inspector: PONV - caustic strength inspector Female HX of Motion Sickness HX of N/V After Surgery Non-Smoker Duration of Surgery greater than 60 minutes Number of Risk Factors PONV Score Height & Weight Height & Weight: Anesthesia: Height & Weight Height 5 ft 4.17 in 10/10/25 14:41 Weight: 70.8 kg 10/10/25 14:41 Body Mass Index (BMI) 26.6 10/10/25 14:41 Respiratory Assessment Respiratory Assessment - caustic strength inspector: Respiratory Tract Infection Hx - caustic strength inspector Hx Respiratory Tract Infection No 10/10/25 08:02 STOP Sleep Apnea STOP Sleep Apnea - caustic strength inspector: STOP Sleep Apnea - caustic strength inspector Hx Hypertension Yes 10/09/25 14:03 Hx Sleep Apnea No 10/09/25 00:04 CPAP BIPAP Do you snore loudly (louder No 10/09/25 00:04 than talking or can be heard Do you often feel tired/ No 10/09/25 00:04 fatigued/ sleepy during daytime? Has anyone observed you stop No 10/09/25 00:04 breathing during sleep? STOP Results Negative 10/09/25 00:04 QUESTION #5 FULL TEXT : Do you snore loudly (louder than talking or can be heard through closed doors)? Tobacco Use History Tobacco Use History - caustic strength inspector: Tobacco Use History - caustic strength inspector Tobacco Use Smoking Status Never smoker 10/09/25 00:04 Hx Tobacco Use No 10/09/25 00:04 Years Smoking Packs Smoked per Day Smoking Cessation Date was within the last 15 years Hx Smoking Cessation Date Hx Smoking Cessation Counseling Hematologic Medial History Hematologic Hx - caustic strength inspector: Hematologic Medical Hx - documentation writer Hx of Blood Transfusion Yes 10/09/25 00:04 Hx of Transfusion in last 3 No 10/09/25 00:04 Months Date of Last Transfusion (if within last 3 months) Ever experience any problems No 10/09/25 00:04 with transfusion(s)? Specify any problems Hx of Preganancy in last 3 No 10/09/25 00:04 Months Nurse Filling Out Transfusion MBAUTZ 10/09/25 00:04 & Questions: Date: 10/09/25 10/09/25 00:04 Time: 00:34 10/09/25 00:04 Patient unable to answer at this time (ie. confused, unrespo /Reproduction History /Reproductive History - caustic strength inspector: /Reproductive Hx- caustic strength inspector Hx Now No 10/10/25 08:02 Gestational Age (in weeks): EDC: Hx Hx Para Hx Section SAB No 10/10/25 08:02 Does the father of the baby or his family experience fever w Father of the baby Malignant Hypertension history comment Active Medications Active Medications: Current Medications Generic Name Dose Route Start Last Admin Trade Name Freq PRN Reason Stop Dose Admin Acetaminophen 650 mg 10/09/25 00:04 Acetaminophen 325 Mg Tablet PO Q6H PRN PRN Pain 1-10 Or Fever >100.7 Brimonidine Tartrate 1 drp 10/09/25 10:00 10/10/25 08:20 Brimonidine 0.2% 5ml Bottle OPHTHALMIC 1 drp BID ROMULO Administration Calcium/Vitamin D 1 tablet 10/09/25 08:00 10/10/25 08:20 Calcium Carb/Vitamin D 1 Tablet Tablet PO 1 tablet DAILYCM ROMULO Administration Cyanocobalamin (Vitamin B12) 1,000 mcg 10/09/25 10:00 10/10/25 08:21 Cyanocobalamin 500 Mcg Tablet PO 1,000 mcg DAILY ROMULO Administration Glucagon 1 mg 10/09/25 01:04 Glucagon 1 Mg/Ml Syringe IM X1 PRN Hypoglycemia Protocol Pantoprazole Sodium 40 mg/ 100 mls @ 300 mls/hr 10/09/25 00:04 10/09/25 22:17 Sodium Chloride IV Infused 2200 ROMULO Infusion Sodium Chloride 250 mls @ 15 mls/hr 10/09/25 00:22 IV .[id number] PRN Saline Flush Sodium Chloride 250 mls @ 15 mls/hr 10/09/25 00:22 IV .[id number] PRN Additional IVPB Infusion Dextrose 250 mls @ 0 mls/hr 10/09/25 01:04 Dextrose 10%-Water IV .Q0M PRN HYPOGLYCEMIA Protocol As Directed Sodium Chloride 250 mls @ 15 mls/hr 10/10/25 00:21 IV .[id number] PRN Saline Flush Sodium Chloride 250 mls @ 15 mls/hr 10/10/25 00:21 IV .[id number] PRN Additional IVPB Infusion Lactated Ringer's 1,000 mls @ 15 mls/hr 10/10/25 14:30 10/10/25 14:37 IV 15 mls/hr .Q48H ROMULO Administration Insulin Glargine 30 unit 10/09/25 10:00 10/10/25 08:22 Insulin Glargine-Yfgn 100 Unit/Ml Pen SC Not Given DAILY [facility] Insulin Human Lispro 0 unit 10/10/25 18:00 Insulin Lispro 100 Unit/Ml Insuln.Pen SC Q6 [facility] Protocol Nitroglycerin 0.4 mg 10/09/25 00:04 Nitroglycerin (Inpatient Use) 0.4 Mg Tab.Subl SL Q5M PRN CARDIAC/CHEST PAIN Ondansetron HCl 4 mg 10/09/25 00:04 10/10/25 03:00 Ondansetron 4 Mg/2 Ml Vial IV 4 mg Q8H PRN PRN Administration NAUSEA/VOMITING Pravastatin Sodium 80 mg 10/09/25 22:00 10/09/25 20:21 Pravastatin 80 Mg Tablet PO 80 mg QHS ROMULO Administration Sodium Chloride 10 - 40 ml 10/09/25 00:22 10/10/25 08:24 0.9% Saline Lock 10 Ml Syringe IV 20 ml UD PRN Administration SALINE FLUSH Sodium Chloride 10 - 40 ml 10/10/25 00:21 0.9% Saline Lock 10 Ml Syringe IV UD PRN SALINE FLUSH Verapamil HCl 300 mg 10/10/25 10:00 10/10/25 08:19 Verapamil Hcl 300 Mg Cap24h.Pct PO 300 mg DAILY ROMULO Administration PFSH Medical History Anemia History of diverticulitis Non-smoker History of stress test Cardiology follow-up encounter On apixaban therapy Old myocardial infarction Liver mass 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 tachycardia Pure hypercholesterolemia Malignant neoplasm of right breast GERD (gastroesophageal reflux disease) Paroxysmal atrial fibrillation Type 2 diabetes mellitus Essential hypertension Presence of stent in coronary artery (~05/23/09) Atherosclerotic heart disease of [place] coronary artery without angina pectoris Home Medications ?Medication ?Instructions ?Recorded ?Last Taken ?Type cyanocobalamin (vitamin B-12) 1,000 mcg PO DAILY vitam in 09/06/19 12/14/23 History 1,000 mcg tablet deficient pravastatin 80 mg tablet 80 mg PO QHS cholesterol 03/2012/14/23 History pyridoxine (vitamin B6) 100 mg 100 mg PO DAILY vitamin deficient 09/06/19 12/14/23 History tablet nitroglycerin 0.4 mg sublingual 0.4 mg sublingual Q5-1 5M PRN chest 09/08/19 Unknown Rx tablet pain #90 tabs verapamil 300 mg capsule 24hr 300 mg PO QHS blood pres sure 08/06/23 12/14/[address],ext.release brimonidine 0.2 % eye drops 1 drp ophthalmic (eye) BID Glaucoma 12/11/23 12/14/23 History calcium 600 mg (as 1 tab PO DAILY vitamin defic ient 12/11/23 12/14/23 History carbonate)-vitamin D3 5 mcg (200 unit) tablet (Calcium 600 + D(3)) glipizide 2.5 mg tablet 2.5 mg PO BID 10/04/24 Unkno wn History insulin glargine 100 unit/mL (3 34 unit subcut QDAY Unknown History mL) subcutaneous pen (Lantus Solostar U-100 Insulin) losartan 100 mg tablet 100 mg PO DAILY 10/08/25 Unk nown History meclizine 12.5 mg tablet 12.5 mg PO Q6H dizziness 05/26 Unknown History ondansetron 4 mg disintegrating 4 mg PO Q6H nausea 05/26 Unknown History tablet sitagliptin phosphate 25 mg tablet 25 mg PO DAILY 05/26 Unknown History (Januvia) Allergy/AdvReac Type Severity Reaction Status Date / Time alendronate sodium (From AdvReac Severe myalgias Verified 10/08/25 22:09 Fosamax) amoxicillin (Amoxicillin) AdvReac Nausea/Vom/ Verified 10/08/25 22:09 Diarrhea metformin AdvReac Nausea/Vom/ Verified 10/08/25 22:09 Diarrhea shellfish derived AdvReac Nausea/Vom/ Verified 10/08/25 22:09 Diarrhea Family History Mother Hypertension Diabetes CVA (cerebral vascular accident) CAD (coronary artery disease) Father History of DVT (deep vein thrombosis) Surgical History History of eyelid surgery (05/28/23) History of total abdominal hysterectomy S/P lumpectomy, right breast Presence of coronary angioplasty implant and graft (~05/23/09) Social History household members: family housing: house Smoking Status: Never smoker alcohol intake: never substance use type: does not use caffeine: Yes Type: coffee Number of servings: 2 Review of Systems (Anesthesia) ROS Narrative System reviewed and no additional complaints, except as documented.
--- NOTE | 2025-10-10 15:30 | COLBX_PTH ---
PATIENT: MALORIE KIRK LOC: PCU U#:[id number] AGE/SX: 80/F ROOM: [facility] RE10/08/[address]: Dr. Gomez Johansen MD : [id number] BED: 1 DIS: 10/11/2025 SPEC #: [id number] RECD: 10/11/25 08:02 STATUS: ALBARO SALES #: [id number] ANNIE: 10/10/25 15:[address]: Cullen Ferrer DEPT: SURGICAL PATHOLOGY RECD BY: Crodell Alvarez ENTERED: 10/11/25 10:23 SP TYPE: COLON BX OTHR DR: MD Dr. Cr Garcia MD Dr. William Lago, MD Heather Evans PAN PULLER-C LILLIE GrahamC MAR Bazan Tissues: A - Gastric mucous membrane B - COLON BIOPSY Procedures: Immunohistochemical Stains Surgery Specimen Level IV HEADER OPERATION: Colonoscopy, hemostasis of bleeding, EGD with biopsies PRE-OP DIAGNOSIS: Acute lower GI bleeding, gastric ulcer, orthostatic hypotension TISSUE SUBMITTED: A- Gastric body biopsy, B- Hepatic flexure polyp MICROSCOPIC DIAGNOSIS A. Stomach, body, biopsy: - Oxyntic mucosa with chronic gastritis. - IHC for H pylori is pending and will be reported in an addendum. B. Colon, hepatic flexure, polyp, biopsy: - Tubular adenoma. MICROSCOPIC DESCRIPTION Slides are reviewed. GROSS DESCRIPTION A. Received in fixative is one container labeled with the patient's name and designated Gastric body biopsy. The specimen consists of two irregular fragments of sylvester tissue that measure 0.5 and 0.6 cm. The specimen is totally submitted in one cassette. B. Received in fixative is one container labeled with the patient's name and designated Hepatic flexure polyp. The specimen consists of one irregular fragment of sylvester tissue that measures 0.5 cm. The specimen is totally submitted in one cassette. DE 10/11/2025 CPT:[id number] ADDENDUM ADDENDUM ADDENDUM ADDENDUM ADDENDUM ADDENDUM ADDENDUM ADDENDUM ADDENDUM ADDENDUM ADDENDUM ADDENDUM 10/16/2025 14:42 ADDENDUM 10/16/2025 14:42 ADDENDUM 10/16/2025 14:42 ADDENDUM 10/16/2025 14:42 ADDENDUM 10/16/2025 14:42 This addendum is to report the IHC for H pylori on part A: A) IHC negative for H. pylori organisms. All matched controls reacted appropriately. These tests were developed and their performance characteristics determined by [facility]. They may not have been cleared or approved by the U.S. Food and Drug Administration. The FDA has determined that such clearance or approval is not necessary. The above immunohistochemical markers and/or special?stains have been reviewed by the Pathologist.
[2025-10-10] MEDS: Lactated Ringers 500 ML IV (16:31)
[2025-10-10] MEDS: Lidocaine 1% (5 ml sdv) 5 ML Vial 10 ML IV (16:41)
--- NOTE | 2025-10-10 17:05 | OP.EGD_ITS ---
Patient Name: Kellie Dozier Procedure Date: 10/10/2025 4:11 PM Date of : 1945 Age: 80 Procedure: Upper GI endoscopy Indications: Hematochezia, Melena Providers: Cullen Ferrer DO Medicines: Monitored Anesthesia Care Patient Profile: This is an 80 year old female. Refer to note in patient chart for documentation of history and physical. Patient has symptoms of acute right lower quadrant abdominal pain and acute epigastric abdominal pain. Her most recent colonoscopy for polyp removal and EGD for ulcer treatment. Complications: No immediate complications. Procedure: Pre-Anesthesia Assessment: - Prior to the procedure, a History and Physical was performed, and patient medications and allergies were reviewed. The patient is competent. The risks and benefits of the procedure and the sedation options and risks were discussed with the patient. All questions were answered and informed consent was obtained. Patient identification and proposed procedure were verified by the physician in the pre-procedure area. Mental Status Examination: alert and oriented. Airway Examination: normal oropharyngeal airway and neck mobility. Respiratory Examination: clear to auscultation. CV Examination: normal. Prophylactic Antibiotics: The patient does not require prophylactic antibiotics. Prior Anticoagulants: The patient has taken no anticoagulant or antiplatelet agents except for NSAID medication. ASA Grade Assessment: II - A patient with mild systemic disease. After reviewing the risks and benefits, the patient was deemed in satisfactory condition to undergo the procedure. The anesthesia plan was to use monitored anesthesia care (MAC). Immediately prior to administration of medications, the patient was re-assessed for adequacy to receive sedatives. The heart rate, respiratory rate, oxygen saturations, blood pressure, adequacy of pulmonary ventilation, and response to care were monitored throughout the procedure. The physical status of the patient was re-assessed after the procedure. After obtaining informed consent, the endoscope was passed under direct vision. Throughout the procedure, the patient's blood pressure, pulse, and oxygen saturations were monitored continuously. The colonoscope was introduced through the mouth, and advanced to the fourth part of the duodenum. Small bowel enteroscopy was deemed necessary. The upper GI endoscopy was accomplished without difficulty. The patient tolerated the procedure well. Scope In: 4:43:08 PM Scope Out: 4:45:16 PM Total Procedure Duration Time 0 hours 2 minutes 8 seconds Findings: The examined esophagus was normal. Patchy mildly erythematous mucosa without bleeding was found in the gastric body. Biopsies were taken with a cold forceps for histology. Biopsies were taken with a cold forceps for Helicobacter pylori testing. The examined duodenum was normal. Impression: - Normal esophagus. - Erythematous mucosa in the gastric body. Biopsied. - Normal examined duodenum. Recommendation: - Await pathology results. - Continue present medications. Procedure Code(s): --- Professional --- 10368, Small intestinal endoscopy, enteroscopy beyond second portion of duodenum, not including ileum; with biopsy, single or multiple CPT copyright 2021 [employer]. All rights reserved. The codes documented in this report are preliminary and upon intermodal customer service review may be revised to meet current compliance requirements. Cullen Ferrer DO 10/10/2025 5:04:58 PM This report has been signed electronically. Number of Addenda: 0 Note Initiated On: 10/10/2025 4:11 PM
--- NOTE | 2025-10-10 17:06 | OP.PROVAT_ITS ---
10/10/2025 [facility] Re : Upper GI endoscopy procedure for Kellie Dozier Dear Darcy This procedure was performed on Friday, October 10, 2025. My impressions and recommendations are as follows: Impressions : - Normal esophagus. - Erythematous mucosa in the gastric body. Biopsied. - Normal examined duodenum. Recommendations : - Await pathology results. - Continue present medications. My findings are described in the full procedure note, which is enclosed. If I can be of further assistance, please feel free to contact me at . Sincerely, Cullen Ferrer, 10/10/2025 5:04:58 PM This report has been signed electronically.
--- NOTE | 2025-10-10 17:08 | OP.COLON_ITS ---
Patient Name: Kellie Dozier Procedure Date: 10/10/2025 4:45 PM Date of : 1945 Age: 80 Procedure: Colonoscopy Indications: Hematochezia Providers: Cullen Ferrer DO Medicines: Monitored Anesthesia Care Patient Profile: This is an 80 year old female. Refer to note in patient chart for documentation of history and physical. Patient has symptoms of acute right lower quadrant abdominal pain and acute epigastric abdominal pain. Her most recent colonoscopy for polyp removal and EGD for ulcer treatment. Last Colonoscopy: 1 week ago. Complications: No immediate complications. Procedure: Pre-Anesthesia Assessment: - Prior to the procedure, a History and Physical was performed, and patient medications and allergies were reviewed. The patient is competent. The risks and benefits of the procedure and the sedation options and risks were discussed with the patient. All questions were answered and informed consent was obtained. Patient identification and proposed procedure were verified by the physician in the pre-procedure area. Mental Status Examination: alert and oriented. Airway Examination: normal oropharyngeal airway and neck mobility. Respiratory Examination: clear to auscultation. CV Examination: normal. Prophylactic Antibiotics: The patient does not require prophylactic antibiotics. Prior Anticoagulants: The patient has taken no anticoagulant or antiplatelet agents except for NSAID medication. ASA Grade Assessment: II - A patient with mild systemic disease. After reviewing the risks and benefits, the patient was deemed in satisfactory condition to undergo the procedure. The anesthesia plan was to use monitored anesthesia care (MAC). Immediately prior to administration of medications, the patient was re-assessed for adequacy to receive sedatives. The heart rate, respiratory rate, oxygen saturations, blood pressure, adequacy of pulmonary ventilation, and response to care were monitored throughout the procedure. The physical status of the patient was re-assessed after the procedure. After I obtained informed consent, the scope was passed under direct vision. Throughout the procedure, the patient's blood pressure, pulse, and oxygen saturations were monitored continuously. The colonoscope was introduced through the anus and advanced to the cecum, identified by appendiceal orifice and ileocecal valve. The colonoscopy was performed without difficulty. The patient tolerated the procedure well. The quality of the bowel preparation was adequate. The ileocecal valve, appendiceal orifice, and rectum were photographed. Scope In: 4:47:25 PM Scope Withdrawal Time 0 hours 11 minutes 14 seconds Scope Out: 5:01:10 PM Total Procedure Duration Time 0 hours 13 minutes 45 seconds Findings: The perianal and digital rectal examinations were normal. A 7 mm polyp was found in the hepatic flexure. The polyp was sessile. The polyp was removed with a jumbo cold forceps. Resection and retrieval were complete. Verification of patient identification for the specimen was done. Estimated blood loss was minimal. A single (solitary) 40mm mm ulcer was found in the cecum. Oozing was present. Stigmata of recent bleeding were present. Coagulation for hemostasis using heater probe was successful. Coagulation for bleeding prevention using argon plasma at 0.3 liters/minute and 35 keller was successful. Estimated blood loss was minimal. Impression: - One 7 mm polyp at the hepatic flexure, removed with a jumbo cold forceps. Resected and retrieved. - A single (solitary) ulcer in the cecum. Treated with a heater probe. Treated with argon plasma coagulation (APC). Recommendation: - Return patient to hospital chan for ongoing care. - Full liquid diet today. - Continue present medications. - Repeat colonoscopy in 6 months for surveillance. Procedure Code(s): --- Professional --- 83016, 59, Colonoscopy, flexible; with control of bleeding, any method 29969, Colonoscopy, flexible; with biopsy, single or multiple CPT copyright 2021 [employer]. All rights reserved. The codes documented in this report are preliminary and upon behavioral medical director review may be revised to meet current compliance requirements. Cullen Ferrer DO 10/10/2025 5:08:09 PM This report has been signed electronically. Number of Addenda: 0 Note Initiated On: 10/10/2025 4:45 PM
--- NOTE | 2025-10-10 17:09 | OP.PROVAT_ITS ---
10/10/2025 [facility] Re : Colonoscopy procedure for Kellie Jacksonr Darcy This procedure was performed on Friday, October 10, 2025. My impressions and recommendations are as follows: Impressions : - One 7 mm polyp at the hepatic flexure, removed with a jumbo cold forceps. Resected and retrieved. - A single (solitary) ulcer in the cecum. Treated with a heater probe. Treated with argon plasma coagulation (APC). Recommendations : - Return patient to hospital chan for ongoing care. - Full liquid diet today. - Continue present medications. - Repeat colonoscopy in 6 months for surveillance. My findings are described in the full procedure note, which is enclosed. If I can be of further assistance, please feel free to contact me at . Sincerely, Cullen Friend, 10/10/2025 5:08:09 PM This report has been signed electronically.
--- NOTE | 2025-10-10 17:09 | PCM.POST.ANE ---
Anesthesia: Postop Eval I Current Vital Signs Temperature: 97.2 F Pulse Rate: 70 Blood Pressure: 124/51 Respiratory Rate: 20 Pulse Ox: 99 Oxygen Delivery Method: Room Air Assessment Airway patent: Yes Spontaneous unlabored respirations: Yes Mental status: Awake and Calm nausea: No Vomiting: No Anesthesia Complication: No Fluid Hydration Crystalloid volume administer (ml): 300 Total IV fluid infused: 300 Progress Note Anesthesia document: Postop Eval 1 completed: Yes
--- NOTE | 2025-10-10 17:34 | POSTOPAN2_ITS ---
Anesthesia Postop Eval I Sum Postop Eval Completion status Anesthesia document: Postop Eval 1 completed: Yes Anesthesia Postop Eval I Summary Anesthesia Postop Eval I Summary: Anesthesia Postop Eval I: Assessment Summary Airway patent Yes 10/10/25 17:10 PAYROLL [email or web address] [email or web address] Spontaneous unlabored Yes 10/10/25 17:10 PAYROLL ACCOUNTING [email or web address] respirations Mental status Awake,Calm 10/10/25 17:10 PAYROLL [email or web address] [email or web address] nausea No 10/10/25 17:10 PAYROLL [email or web address] [email or web address] Vomiting No 10/10/25 17:10 PAYROLL [email or web address] [email or web address] Anesthesia Postop Eval I: Fluid Summary Crystalloid volume administer 300 10/10/25 17:10 PAYROLL ACCOUNTING [email or web address] (ml) Colloids volume administered ( ml) Blood Product volume administered (ml) Total IV fluid infused 300 10/10/25 17:10 PAYROLL [email or web address] [email or web address] Anesthesia Postop Eval I: Summary Notes Anesthesia Complication No 10/10/25 17:10 PAYROLL [email or web address] [email or web address] Anesthesia Complication Comment: Post-operative progress note Anesthesia: Postop Eval II Evaluation Mental status: Awake and Calm Pain Level: 1 nausea: No Vomiting: No Complications Anesthesia Complication: No
--- NOTE | 2025-10-10 17:34 | PCM.POSTANE2 ---
Anesthesia Postop Eval I Sum Postop Eval Completion status Anesthesia document: Postop Eval 1 completed: Yes Anesthesia Postop Eval I Summary Anesthesia Postop Eval I Summary: Anesthesia Postop Eval I: Assessment Summary Airway patent Yes 10/10/25 17:10 [email or web address] Spontaneous unlabored Yes 10/10/25 17:10 [email or web address] respirations Mental status Awake,Calm 10/10/25 17:10 [email or web address] nausea No 10/10/25 17:10 [email or web address] Vomiting No 10/10/25 17:10 [email or web address] Anesthesia Postop Eval I: Fluid Summary Crystalloid volume administer 300 10/10/25 17:10 [email or web address] (ml) Colloids volume administered ( ml) Blood Product volume administered (ml) Total IV fluid infused 300 10/10/25 17:10 [email or web address] Anesthesia Postop Eval I: Summary Notes Anesthesia Complication No 10/10/25 17:10 [email or web address] Anesthesia Complication Comment: Post-operative progress note Anesthesia: Postop Eval II Evaluation Mental status: Awake and Calm Pain Level: 1 nausea: No Vomiting: No Complications Anesthesia Complication: No
[2025-10-10] MEDS: Pantoprazole Sodium 40 MG in 0.9% Normal Saline (100mL MB+) 100 ML 300 MG IV (22:45)
[2025-10-11 04:30] VITALS: BP 111/50; PULSE 66; RESP 16; TEMP 36.5; O2SAT 92
[2025-10-11 05:00] VITALS: PULSE 63
[2025-10-11 05:57] LABS: Hematocrit 26.1 % (37-47); Hemoglobin 8.4 g/dL (12.0-15.0); Immature Granulocytes Count 0.070 X10^3/uL (0.0-0.0); Mean Corp Hgb Conc 32.2 g/dL (32-36); Mean Corpuscular Volume 94.6 fL (81-99); Mean Platelet Vol. 9.9 fl (6.2-12.0); NRBC Flagged by Analyzer 0 % (0-5); Platelet Count 200 K/mm3 (150-450); RBC Distribution Width CV 13.8 % (11.6-14.6); RBC Distribution Width SD 47.3 fl (35.1-43.9); Red Blood Count 2.76 M/mm3 (4.2-5.4); White Blood Count 7.6 K/mm3 (4.4-11.0)
[2025-10-11 06:28] LABS: Anion Gap 8 (5-15); BUN 7 mg/dL (4-19); BUN/Creat Ratio 10.9 RATIO (10-20); Calcium,Total 8.5 mg/dL (7.6-11.0); Carbon Dioxide 24.9 mmol/L (21.0-32.0); Chloride 109 mmol/L (98-108); Estimated Creatinine Clearance 53.23 ml/min (50-250); Glucose 115 mg/dL (70-99); Potassium 3.7 mmol/L (3.3-5.1)
[2025-10-11 10:30] VITALS: BP 145/54; PULSE 75; RESP 18; TEMP 36.6; O2SAT 98
[2025-10-11] MEDS: BRIMONIDINE 0.2% 5ML BOTTLE 1 DRP OPHTHALMIC (10:35)
[2025-10-11] MEDS: Calcium Carb/Vitamin D 1 TABLET Tablet PO (10:35)
[2025-10-11] MEDS: VERAPAMIL HCL 300 MG CAP24H.PCT PO (10:36)
--- NOTE | 2025-10-11 11:24 | DCINST_ITS ---
Discharge Instructions DC O2, CPAP, BIPAP needs Home O2 Discharge instructions: No Dressing / Incision Discharge Activity: Return to Normal Activity Dressing / Incision Call your doctor if you observe: Fever of 101 or Higher, Shortness of breath, Dizziness, Fainting spells, Swelling in the ankles, Chest pain and Increased palpitations (irregular heartbeat) Follow Up Care Test Results: Test results from this visit will be discussed in further detail at your follow- up appointment, if applicable. Discharge Plan Admission Admit Date/Time: 10/08/25 23:41 Attending Provider: Gomez Johansen Primary Care Provider: S[facility] Consulting Providers: Cr Vasquez; Cullen Ferrer; Franca Marcial; Genet Loco; Tierney Nagy Instructions Additional Instructions / Restrictions: Follow-up with your PCP in 3 to 5 days to monitor your hemoglobin. Discharge Orders/Prescriptions Prescriptions: New pantoprazole [Protonix] 40 mg tablet,delayed release (DR/EC) 40 mg PO DAILY Qty: 30 0RF Continued nitroglycerin 0.4 mg tablet, sublingual 0.4 mg sublingual Q5-15M PRN (Reason: chest pain) Qty: 90 6RF pravastatin 80 mg tablet 80 mg PO QHS cyanocobalamin (vitamin B-12) 1,000 mcg tablet 1,000 mcg PO DAILY pyridoxine (vitamin B6) 100 mg tablet 100 mg PO DAILY verapamil 300 mg capsule, [address] 300 mg PO QHS insulin glargine [Lantus Solostar U-100 Insulin] 100 unit/mL (3 mL) insulin pen 34 unit subcut QDAY glipizide 2.5 mg tablet 2.5 mg PO BID brimonidine 0.2 % drops 1 drp ophthalmic (eye) BID Patient Comments: INSTILL 1 DROP INTO EACH EYE TWICE DAILY calcium carbonate-vitamin D3 [Calcium 600 + D(3)] 600 mg-5 mcg (200 unit) tablet 1 tab PO DAILY losartan 100 mg tablet 100 mg PO DAILY meclizine 12.5 mg tablet 12.5 mg PO Q6H ondansetron 4 mg tablet,disintegrating 4 mg PO Q6H Januvia 25 mg tablet 25 mg PO DAILY Referrals / Follow Up: Cullen Ferrer DO [Med Staff - Active Staff, Gastroenterology] - Within 1 Month Santo Taveras MD [Primary Care Provider, Medical] - Within 1 Week Disposition Disposition (needs filled in before D/C Order can be placed): Home, Self Care
[2025-10-11 11:31] VITALS: BP 145/84; PULSE 74; RESP 18; TEMP 36.6; O2SAT 98
--- NOTE | 2025-10-11 11:48 | CASEMGMT ---
Patient has order for discharge. RN CM in to discuss needs at discharge. Patient denies needs or help at discharge. Patient had no further questions or concerns.
--- NOTE | 2025-10-11 12:36 | PCM.DC.SUM ---
Providers Date of Admission: 10/08/25 Primary Care Physician: Dr. Santo Taveras MD Consultations 10/09/25 00:04 Consult: Gastroenterology Routine Consulting Provider: [facility] Reason for Consult: GI bleed EMERGENT Consult: No MD Notified: Yes Date Notified: 10/08/25 Time Notified: 23:58 Method of Notification: ED Physician Initiated Reason For Visit: ORTHOSTATIC HYPOTENSION, GI BLEED Diagnosis Discharge Diagnosis (1) Acute lower GI bleeding: Status: Acute Code(s): K92.2 - Gastrointestinal hemorrhage, unspecified (2) Orthostatic hypotension: Status: Acute Code(s): I95.1 - Orthostatic hypotension Medications at Discharge Home Medications cyanocobalamin (vitamin B-12) 1,000 mcg tablet 1,000 mcg PO DAILY vitamin deficient 09/06/19 pravastatin 80 mg tablet 80 mg PO QHS cholesterol 09/06/19 pyridoxine (vitamin B6) 100 mg tablet 100 mg PO DAILY vitamin deficient 09/06/19 nitroglycerin 0.4 mg sublingual tablet 0.4 mg sublingual Q5-15M PRN chest pain #90 tabs 09/08/19 verapamil 300 mg capsule [address]hr pellet CT,ext.release 300 mg PO QHS blood pressure 08/06/23 brimonidine 0.2 % eye drops 1 drp ophthalmic (eye) BID Glaucoma 12/11/23 calcium 600 mg (as carbonate)-vitamin D3 5 mcg (200 unit) tablet (Calcium 600 + D(3)) 1 tab PO DAILY vitamin deficient 12/11/23 glipizide 2.5 mg tablet 2.5 mg PO BID diabetes 10/04/24 insulin glargine 100 unit/mL (3 mL) subcutaneous pen (Lantus Solostar U-100 Insulin) 34 unit subcut QDAY diabetes 10/04/24 losartan 100 mg tablet 100 mg PO DAILY blood pressure 10/08/25 meclizine 12.5 mg tablet 12.5 mg PO Q6H dizziness 10/08/25 ondansetron 4 mg disintegrating tablet 4 mg PO Q6H nausea 10/08/25 sitagliptin phosphate 25 mg tablet (Januvia) 25 mg PO DAILY diabetes 10/08/25 pantoprazole 40 mg tablet,delayed release (Protonix) 40 mg PO DAILY #30 tabs 10/11/25 Hospital Course Operations None Procedures Colonoscopy and EGD Summary of Care Provided Minutes Spent on Discharge: 37 Hospital Course: Per HPI: MALORIE KIRK, is a 80 F with history of recent colonoscopy polypectomy on October 02 in [facility] Main [facility] by Dr. Robles came to ER after she started having bright red rectal bleed multiple times since 6 PM today. Patient said she has a liquid bowel movement ongoing 5-6 bloody bowel movements since then. ED physician talked to Dr. Ferrer and advised admission and endoscopy. Patient denies dizziness or lightheadedness or vertigo but feels very weak. She stated she does not feel good. In ED, orthostatics were positive, dropped BP 151/61, heart rate 91/min in supine to 96/59, heart rate 71 on standing. Patient given 1 L of IV fluid in ED and further admitted. Denies abdominal pain, chest pain or shortness of breath. Hospital Course: 1. Orthostatic hypotension with possible acute lower GI bleed after polypectomy in the setting of chronic anemia?80-year-old female with a history of chronic anemia presented to the hospital with orthostatic hypotension. There was concern for possible lower GI bleed as she had recently had a polypectomy. Gastroenterology was consulted and EGD demonstrated some gastritis and the colonoscopy demonstrated a cecal ulcer and had another polyp removed. I do recommend outpatient follow-up with gastroenterology in a month for monitoring. I also recommend outpatient monitoring of her hemoglobin. I discussed with her today the possibility of discharge and she expressed understanding of the risks and benefits of going home and would like to go home today. Will continue with PPI on discharge for her gastritis. 2. Coronary artery disease status post stent, paroxysmal A-fib, essential hypertension, hyperlipidemia, type 2 diabetes are all chronic medical conditions which complicate her care. Her home medications were continued where appropriate Physical Exam Narrative General: Alert, Oriented x3, Cooperative, No apparent distress HEENT: Atraumatic, PERRLA, EOMI, Normocephalic Oral: Moist Mucosa Neck: Supple, No JVD Lungs: Diminished, Normal air movement, No rhonchi, No wheeze, No rales Cardiovascular: Regular rate, Regular Rhythm, Normal S1, Normal S2, No murmurs Abdomen: Soft, Non Tender, Non-Distended, No Hepato-splenomegaly Extremities: No edema, Capillary Refill Less than 3 Seconds Skin: No rashes, No breakdown Musculoskeletal: No Tenderness to Palpation of Joints or Extremities Neurological: No focal neurological deficits, moves all extremities Psych/Mental Status: Normal Affect, Appropriate Weight / BMI Weight Weight: 156 lb 1.396 oz Body Mass Index (BMI) 26.6 ABG / Lab / Microbiology Data 10/11/25 05:44 10/11/25 05:44 Laboratory: Laboratory Results - last 24 hr 10/10/25 18:05: POC Glucose 79 10/11/25 00:02: POC Glucose 195 H 10/11/25 05:04: POC Glucose 117 H 10/11/25 05:44: WBC 7.6, RBC 2.76 L, Hgb 8.4 L, Hct 26.1 L, MCV 94.6, MCH 30.4, MCHC 32.2, RDW Std Deviation 47.3 H, RDW Coeff of Emperatriz 13.8, Plt Count 200, MPV 9.9, Immature Gran % (Auto) 0.900, Neut % (Auto) 67.2, Lymph % (Auto) 16.6 L, [place] % (Auto) 12.1 H, Eos % (Auto) 2.4, Baso % (Auto) 0.8, Absolute Neuts (auto) 5.1, Absolute Lymphs (auto) 1.26, Nucleated RBC % 0, Sodium 142, Potassium 3.7, Chloride 109 H, Carbon Dioxide 24.9, Anion Gap 8, BUN 7, Creatinine 0.65 L, Estim Creat Clear Calc 53.23, Est GFR (MDRD) Non-Af 88, BUN/Creatinine Ratio 10.9, Glucose 115 H, Calcium 8.5 D/C Instructions Call your doctor if you observe: Fever of 101 or Higher, Shortness of breath, Dizziness, Fainting spells, Swelling in the ankles, Chest pain and Increased palpitations (irregular heartbeat) DC O2, CPAP, BIPAP Needs Home O2 Discharge instructions: No Meaningful Use Info Meaningful Use Meaningful Use Diagnoses (Choose all that apply): None applicable Discharge Plan Admission Admit Date/Time: 10/08/25 23:41 Attending Provider: Gomez Johansen Primary Care Provider: S[facility]as Consulting Providers: Cr Vasquez; Cullen Ferrer; Franca Marcial; Genet Loco; Tierney Nagy Instructions Additional Instructions / Restrictions: Follow-up with your PCP in 3 to 5 days to monitor your hemoglobin. Discharge Orders/Prescriptions Prescriptions: New pantoprazole [Protonix] 40 mg tablet,delayed release (DR/EC) 40 mg PO DAILY Qty: 30 0RF Continued nitroglycerin 0.4 mg tablet, sublingual 0.4 mg sublingual Q5-15M PRN (Reason: chest pain) Qty: 90 6RF pravastatin 80 mg tablet 80 mg PO QHS cyanocobalamin (vitamin B-12) 1,000 mcg tablet 1,000 mcg PO DAILY pyridoxine (vitamin B6) 100 mg tablet 100 mg PO DAILY verapamil 300 mg capsule, [address] 300 mg PO QHS insulin glargine [Lantus Solostar U-100 Insulin] 100 unit/mL (3 mL) insulin pen 34 unit subcut QDAY glipizide 2.5 mg tablet 2.5 mg PO BID brimonidine 0.2 % drops 1 drp ophthalmic (eye) BID Patient Comments: INSTILL 1 DROP INTO EACH EYE TWICE DAILY calcium carbonate-vitamin D3 [Calcium 600 + D(3)] 600 mg-5 mcg (200 unit) tablet 1 tab PO DAILY losartan 100 mg tablet 100 mg PO DAILY meclizine 12.5 mg tablet 12.5 mg PO Q6H ondansetron 4 mg tablet,disintegrating 4 mg PO Q6H Januvia 25 mg tablet 25 mg PO DAILY Referrals / Follow Up: Cullen Ferrer DO [Med Staff - Active Staff, Gastroenterology] - Within 1 Month Santo Taveras MD [Primary Care Provider, Medical] - Within 1 Week Disposition Disposition (needs filled in before D/C Order can be placed): Home, Self Care Charges/Coding Visit Charges Inpatient E&M: 00427 Disch Hosp >30min
--- NOTE | 2025-10-11 13:20 | PHA.DC.MC.R ---
Pharmacy [facility] Counseling Pharmacy Service has performed discharge medication reconciliation and counseling for this patient. 1. PANTOPRAZOLE 40MG PO DAILY The patient's discharge medication list was reviewed for discrepancies and discrepancies were resolved. The patient was counseled on the following discharge medications and changes in medications for homegoing were reviewed. The Reason for Use, instructions for use, and potential side effects were reviewed for all new medications. The patient's questions regarding all of their medications were answered. The patient was able to verbally demonstrate an understanding of their discharge medications. Medications at Discharge Home Medications cyanocobalamin (vitamin B-12) 1,000 mcg tablet 1,000 mcg PO DAILY vitamin deficient 09/06/19 pravastatin 80 mg tablet 80 mg PO QHS cholesterol 09/06/19 pyridoxine (vitamin B6) 100 mg tablet 100 mg PO DAILY vitamin deficient 09/06/19 nitroglycerin 0.4 mg sublingual tablet 0.4 mg sublingual Q5-15M PRN chest pain #90 tabs 09/08/19 verapamil 300 mg capsule 24hr pellet CT,ext.release 300 mg PO QHS blood pressure 08/06/23 brimonidine 0.2 % eye drops 1 drp ophthalmic (eye) BID Glaucoma 12/11/23 calcium 600 mg (as carbonate)-vitamin D3 5 mcg (200 unit) tablet (Calcium 600 + D(3)) 1 tab PO DAILY vitamin deficient 12/11/23 glipizide 2.5 mg tablet 2.5 mg PO BID diabetes 10/04/24 insulin glargine 100 unit/mL (3 mL) subcutaneous pen (Lantus Solostar U-100 Insulin) 34 unit subcut QDAY diabetes 10/04/24 losartan 100 mg tablet 100 mg PO DAILY blood pressure 10/08/25 meclizine 12.5 mg tablet 12.5 mg PO Q6H dizziness 10/08/25 ondansetron 4 mg disintegrating tablet 4 mg PO Q6H nausea 10/08/25 sitagliptin phosphate 25 mg tablet (Januvia) 25 mg PO DAILY diabetes 10/08/25 pantoprazole 40 mg tablet,delayed release (Protonix) 40 mg PO DAILY #30 tabs 10/11/25
== END 2025-10-11 15:40 | disposition home or self-care (01) | DRG 395 ==
LOC: ED 23:26 → PCU 23:52
PROVIDERS: Anesthesiology; Internal Medicine Gastroenterology; Admitting Provider Internal Medicine; Emergency Provider Emergency Medicine; PCP Family Medicine; Visit Provider Family Medicine
PROC: 0DJD8ZZ Inspection of Lower Intestinal Tract, Via Natural or Artificial Opening Endoscopic (ICD-10-PCS; CPT 45378; principal; 2025-10-10 15:25)
DX: K63.3 Ulcer of intestine (principal); D50.0 Iron deficiency anemia secondary to blood loss (chronic); D12.3 Benign neoplasm of transverse colon; E11.65 Type 2 diabetes mellitus with hyperglycemia; D72.829 Elevated white blood cell count, unspecified; I48.0 Paroxysmal atrial fibrillation; E86.0 Dehydration; I10 Essential (primary) hypertension; I95.1 Orthostatic hypotension; E78.5 Hyperlipidemia, unspecified; I25.2 Old myocardial infarction; K21.9 Gastro-esophageal reflux disease without esophagitis; I25.10 Atherosclerotic heart disease of native coronary artery without angina pectoris; Z79.4 Long term (current) use of insulin; K29.50 Unspecified chronic gastritis without bleeding; R19.7 Diarrhea, unspecified; K64.9 Unspecified hemorrhoids; Z95.1 Presence of aortocoronary bypass graft; Z85.3 Personal history of malignant neoplasm of breast; Z87.19 Personal history of other diseases of the digestive system; Z79.84 Long term (current) use of oral hypoglycemic drugs; Z79.899 Other long term (current) drug therapy; Z86.0100 Personal history of colon polyps, unspecified
CPT/HCPCS: 36415; 80048; 82728; 82962; 83036; 83540; 83550; 83605; 83735; 85014; 85018; 85025; 85610; 86850; 86900; 86901; 88305; 88342; 93005; 97161; 97165; 99285; C1889; A4216; J2405

== ENCOUNTER → 2025-10-18 | Outpatient (CLI) | payer MEDICARE, SELFPAY ==
[2025-10-18 14:46] LABS: Hematocrit 27.7 % (37-47); Hemoglobin 9.1 g/dL (12.0-15.0); Immature Granulocytes Count 0.100 X10^3/uL (0.0-0.0); Immature Reticulocyte Fraction 21.80 % (3.00-15.90); Mean Corp Hgb Conc 32.9 g/dL (32-36); Mean Corpuscular Volume 93.3 fL (81-99); Mean Platelet Vol. 10.2 fl (6.2-12.0); NRBC Flagged by Analyzer 0 % (0-5); Platelet Count 289 K/mm3 (150-450); RBC Distribution Width CV 14.5 % (11.6-14.6); RBC Distribution Width SD 49.0 fl (35.1-43.9); Red Blood Count 2.97 M/mm3 (4.2-5.4); Reticulocyte Count 5.02 % (0.5-1.5); White Blood Count 9.2 K/mm3 (4.4-11.0)
[2025-10-18 15:41] LABS: Ferritin 139 ng/mL (22-378); Iron 37 ug/dL (50-170); Iron Binding Capacity,Total 283 ug/dL (250-450); Iron Binding Capacity,Unsat 246 ug/dL (228-428); LDH 209 U/L (84-246)
== END | disposition home or self-care (01) ==
LOC: LAB 13:42
PROVIDERS: PCP Family Medicine; Referring Provider Internal Medicine Gastroenterology; Visit Provider Internal Medicine Gastroenterology
DX: K25.9 Gastric ulcer, unspecified as acute or chronic, without hemorrhage or perforation (principal); D64.9 Anemia, unspecified
CPT/HCPCS: 36415; 82728; 83540; 83550; 83615; 85025; 85045

== ENCOUNTER 2025-10-27 14:36 | Emergency (ER) | payer MEDICARE, SELFPAY ==
[2025-10-27] VITALS (7 sets, daily range): BP systolic 147–187; BP diastolic 57–92; PULSE 70–76; RESP 16–18; TEMP 36.8; O2SAT 96–99; BMI 28.0
--- NOTE | 2025-10-27 14:39 | RAD_ITS ---
PROCEDURE: CHEST PA AND LATERAL 10/27/2025 REASON FOR EXAM: SOB, COUGH TECHNIQUE: Procedure Code: RADCXR Modality: DX Procedure: CHEST PA AND LATERAL COMPARISON: Chest x-ray study dated 12/11/2023 FINDINGS: Hardware: Surgical clips are projected over the right axillary region. Heart: Heart size and configuration are within normal limits. Mediastinum: Mediastinal silhouette is unremarkable. Lungs: There is a 5.6 x 5.3 cm mass in the right upper lobe posteriorly. This consolidative process/ mass could represent a pneumonic infiltrate in the right clinical setting. Other benign and malignant neoplastic processes however should be considered. Follow-up imaging is recommended until this completely resolves or a CT examination could be performed for further evaluation. Stable right pulmonary nodules are seen. There is a small right pleural effusion with adjacent compressive atelectasis of the right lower lobe. Left lung is expanded and clear. Bones: Bony demineralization of the thorax is noted. RAD/Chest PA and Lateral IMPRESSION: There is a 5.6 x 5.3 cm mass in the right upper lobe posteriorly. This consolid ative process/ mass could represent a pneumonic infiltrate in the right clinical setting. Other benign and malignant neoplasti c processes however should be considered. Follow-up imaging is recommended until this completely resolves or a CT examina tion could be performed for further evaluation. Stable right pulmonary nodules are seen. There is a small right pleural effusion with adjacent compressive atelectasis o f the right lower lobe. Reading Location: [id number]
[2025-10-27 15:29] LABS: Hematocrit 29.6 % (37-47); Hemoglobin 9.6 g/dL (12.0-15.0); Immature Granulocytes Count 0.040 X10^3/uL (0.0-0.0); Mean Corp Hgb Conc 32.4 g/dL (32-36); Mean Corpuscular Volume 94.0 fL (81-99); Mean Platelet Vol. 10.1 fl (6.2-12.0); NRBC Flagged by Analyzer 0 % (0-5); Platelet Count 230 K/mm3 (150-450); RBC Distribution Width CV 15.2 % (11.6-14.6); RBC Distribution Width SD 52.1 fl (35.1-43.9); Red Blood Count 3.15 M/mm3 (4.2-5.4); White Blood Count 7.1 K/mm3 (4.4-11.0)
--- NOTE | 2025-10-27 15:52 | EX.ED.DYSGE1 ---
HPI History of Present Illness Chief Complaint: Shortness of Breath [facility] Medical History Anemia History of diverticulitis Non-smoker History of stress test Cardiology follow-up encounter On apixaban therapy Old myocardial infarction Liver mass 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 tachycardia Pure hypercholesterolemia Malignant neoplasm of right breast GERD (gastroesophageal reflux disease) Paroxysmal atrial fibrillation Type 2 diabetes mellitus Essential hypertension Presence of stent in coronary artery (~05/23/09) Atherosclerotic heart disease of [place] coronary artery without angina pectoris Home Medications ?Medication ?Instructions ?Recorded ?Last Taken ?Type cyanocobalamin (vitamin B-12) 1,000 mcg PO DAILY vitamin 09/06/19 12/14/23 History 1,000 mcg tablet deficient pravastatin 80 mg tablet 80 mg PO QHS cholesterol 09/06/19 12/14/23 History pyridoxine (vitamin B6) 100 mg 100 mg PO DAILY vitamin deficient 09/06/19 12/14/23 History tablet nitroglycerin 0.4 mg sublingual 0.4 mg sublingual Q5-15M PRN chest 09/08/19 Unknown Rx tablet pain #90 tabs verapamil 300 mg capsule 24hr 300 mg PO QHS blood pressure 08/06/23 12/14/[address],ext.release brimonidine 0.2 % eye drops 1 drp ophthalmic (eye) BID Glaucoma 12/11/23 12/14/23 History calcium 600 mg (as 1 tab PO DAILY vitamin deficient 12/11/23 12/14/23 History carbonate)-vitamin D3 5 mcg (200 unit) tablet (Calcium 600 + D(3)) glipizide 2.5 mg tablet 2.5 mg PO BID diabetes 10/04/24 Unknown History insulin glargine 100 unit/mL (3 34 unit subcut QDAY diabetes 10/04/24 Unknown History mL) subcutaneous pen (Lantus Solostar U-100 Insulin) losartan 100 mg tablet 100 mg PO DAILY blood pressure 10/08/25 Unknown History meclizine 12.5 mg tablet 12.5 mg PO Q6H dizziness 10/08/25 Unknown History sitagliptin phosphate 25 mg tablet 25 mg PO DAILY diabetes 10/08/25 Unknown History (Januvia) pantoprazole 40 mg tablet,delayed 40 mg PO DAILY #30 tabs 10/11/25 Unknown Rx release (Protonix) ondansetron 4 mg disintegrating 4 mg PO Q6H PRN nausea 10/18/25 Unknown History tablet levofloxacin 500 mg tablet 500 mg PO DAILY #7 tabs 10/27/25 Unknown Rx Allergy/AdvReac Type Severity Reaction Status Date / Time alendronate sodium (From AdvReac Severe myalgias Verified 10/27/25 14:38 Fosamax) amoxicillin (Amoxicillin) AdvReac Nausea/Vom/ Verified 10/27/25 14:38 Diarrhea metformin AdvReac Nausea/Vom/ Verified 10/27/25 14:38 Diarrhea shellfish derived AdvReac Nausea/Vom/ Verified 10/27/25 14:38 Diarrhea Family History Mother Hypertension Diabetes CVA (cerebral vascular accident) CAD (coronary artery disease) Father History of DVT (deep vein thrombosis) Surgical History History of eyelid surgery (05/28/23) History of total abdominal hysterectomy S/P lumpectomy, right breast Presence of coronary angioplasty implant and graft (~05/23/09) Social History household members: family housing: house Smoking Status: Never smoker alcohol intake: never substance use type: does not use caffeine: Yes Type: coffee Number of servings: 2 EXAM Physical Exam Const Vital Signs: 10/27/25 14:36 10/27/25 15:51 10/27/25 15:51 Temperature 98.2 F Temperature Source Oral Pulse Rate 70 Respiratory Rate 16 Respiratory Effort Respiratory Depth Respiratory Pattern Blood Pressure 164/57 H Blood Pressure Mean 92 Pulse Ox 97 97 99 Oxygen Delivery Method Room Air Room Air Room Air 10/27/25 15:52 10/27/25 16:33 10/27/25 17:30 Temperature Temperature Source Pulse Rate 76 75 Respiratory Rate 18 16 Respiratory Effort Short of Breath Respiratory Depth Normal Respiratory Pattern Normal Blood Pressure 187/72 H 151/92 H Blood Pressure Mean 110 111 Pulse Ox 98 96 Oxygen Delivery Method Room Air Room Air 10/27/25 18:01 10/27/25 18:05 Temperature 98.2 F Temperature Source Pulse Rate 70 70 Respiratory Rate 18 18 Respiratory Effort Respiratory Depth Respiratory Pattern Blood Pressure 147/69 H 147/69 H Blood Pressure Mean 95 95 Pulse Ox 98 98 Oxygen Delivery Method Room Air [facility] [place] [facility] [place] Medical decision making narrative: HISTORY OF PRESENT ILLNESS: Chief complaint: Shortness of breath 80-year-old female history of GI bleed, atrial fibrillation, CAD status post NC status post stent, hyperlipidemia, breast cancer, diabetes, hypertension, presents with shortness of breath. Notes has been going on for few days. Denies chest pain. Further states she has had this for 3 days. No sick contacts. She does note a dry cough. She denies fever. Denies leg swelling. The patient denies recent surgery in the last 4 weeks or immobilization in the last 3 days, denies previous diagnosis of DVT or PE, hemoptysis, unilateral leg swelling or malignancy with treatment the last 6 months or palliative. No estrogen use noted. REVIEW OF SYSTEMS: Pertinent positives: Shortness of breath Pertinent negatives: Chest pain, leg swelling, dark stools or other bleeding diathesis PHYSICAL EXAM: Nursing triage notes reviewed, Vital signs reviewed Constitutional: please see [facility] HENT: MMM Eyes: Pupils equal round and reactive to light, Extraocular muscles intact Neck: No stridor, no JVD, full neck ROM Lungs: Clear to auscultation, No wheezing or rales. No increased work of breathing, no conversational dyspnea, no accessory muscle use, no nasal flaring. No respiratory distress noted Heart: Regular rate and rhythm, No murmurs, No rubs and No gallops, 2+ distal pulses (radial, femoral, posterior tibial) in all extremities Abdomen: Soft, there is no tenderness, rigidity, rebound or guarding, no obvious peritoneal signs, no palpable pulsatile abdominal masses, no auscultated abdominal bruit : No CVAT Extremities: No edema Neuro: No new focal neurological deficits, cranial nerves II through XII intact, 5/5 strength in all present extremities. Intact sensation to light touch in all present extremities, 2+ reflexes bilateral patella tendons. Skin: No rash or lesions noted MEDICAL DECISION MAKING: Chief Complaint: please see [facility] External records reviewed: Reviewed prior echocardiogram. Reviewed echocardiogram from July 2024 showed ejection fraction 55% with stage II diastolic dysfunction Factors affecting care: As per HPI Social determinants of health: Denies smoking History obtained from others: Daughter Consults: none [facility] Narrative: The patient was initially hemodynamically stable, afebrile and nontoxic-appearing saturating 99% room air. Exam without obvious full consolidation. No stigmata of CHF, VTE or pneumonia initial exam I considered the following differential diagnosis: Pneumonia, COVID, RSV, flu, anemia, electro disturbance, arrhythmia, PE I obtained a broad lab and imaging work to further determine if the patient was suffering from a life-threatening etiology. ALL IMAGES (IF OBTAINED) HAVE BEEN PERSONALLY REVIEWED AND INTERPRETED BY MYSELF. Chest x-ray was read reviewed grossly by myself showed evidence of a right middle lobe consolidation. Radiologist noted concern for infiltrate versus mass. Recommended obtaining a CT. I added a CTA of the chest to further elucidate the patient etiology including better characterizing x-ray finding as well as ruling out PE. CTA showed no evidence of lung mass, PE High-sensitivity troponin is negative, no evidence of myocardial ischemia x2 CBC with no leukocytosis, mild baseline anemia, no thrombocytopenia BMP without significant electrolyte disturbances, no evidence of metabolic acidosis or endorgan hypoperfusion with a normal bicarb and anion gap, no IGNACIO COVID/RSV/flu negative EKG with normal sinus rhythm rate of 72, normal axis, normal intervals, no acute STEMI. Noted Q waves anterior leads. I suspect the patient suffering from possible community acquired pneumonia given report of cough finding of infiltrate. Will give empiric outpatient antibiotics in form of Augmentin. Strict return precaution will be discussed. PCP follow-up discussed. The patient and/or family, caregivers express understanding. The patient and/or family, caregivers agrees with the plan. Shared decision making: I will have a discussion with the patient and or visitors regarding risk/benefits of further testing or admission. They will be made aware of of the risk/benefits inherent in this decision they will be given the opportunity to voice understanding. Total critical care time today provided was at least 0 minutes. This excludes separately billable procedures. Critical care time (if documented) is secondary to the patient having high probability of clinically significant/life threatening deterioration in the patient's condition which required my urgent intervention. Impression: 1. Dyspnea 2. Community-acquired pneumonia Dispo: Discharge home This note was generated with [employer] dictation software. It may contain incorrect words, spelling, and punctuation that were not noted in review of the chart prior to signing. Lab Data Labs: Laboratory Results - last 24 hr 10/27/25 10/27/25 15:18 17:12 WBC 7.1 RBC 3.15 L Hgb 9.6 L Hct 29.6 L MCV 94.0 MCH 30.5 MCHC 32.4 RDW Std Deviation 52.1 H RDW Coeff of Emperatriz 15.2 H Plt Count 230 MPV 10.1 Immature Gran % (Auto) 0.600 Neut % (Auto) 72.5 H Lymph % (Auto) 14.5 L Barnwell % (Auto) 9.6 Eos % (Auto) 2.1 Baso % (Auto) 0.7 Absolute Neuts (auto) 5.2 Absolute Lymphs (auto) 1.03 Nucleated RBC % 0 Sodium 141 Potassium 3.9 Chloride 109 H Carbon Dioxide 22.0 Anion Gap 11 BUN 16 Creatinine 0.73 Estim Creat Clear Calc 54.35 Est GFR (MDRD) Non-Af 83 BUN/Creatinine Ratio 22.6 H Glucose 281 H Calcium 8.9 Troponin T High Sens 17 H Troponin T Hi Sens 2 Hr 15 H Radiography Diagnostic Testing: Clinical Impression(s) from Imaging Studies Chest X-Ray 10/27/25 14:39 IMPRESSION: There is a 5.6 x 5.3 cm mass in the right upper lobe posteriorly. This consolidative process/ mass could represent a pneumonic infiltrate in the right clinical setting. Other benign and malignant neoplastic processes however should be considered. Follow-up imaging is recommended until this completely resolves or a CT examination could be performed for further evaluation. Stable right pulmonary nodules are seen. There is a small right pleural effusion with adjacent compressive atelectasis of the right lower lobe. Reading Location: [facility] Chest CTA 10/27/25 16:00 IMPRESSION: No evidence of pulmonary embolism. Bilateral small pleural effusions. Scattered pulmonary nodules measure up to 2 mm. Follow-up with CT chest after 12 months may be performed for high-risk patients. Reading Location: [id number] Discharge Plan Triage Chief Complaint: Shortness of Breath ED Provider: Deo Denise Dx/Rx/DC Orders Instructions: ED Pneumonia (Adult) Prescriptions: New levofloxacin 500 mg tablet 500 mg PO DAILY Qty: 7 0RF No Action nitroglycerin 0.4 mg tablet, sublingual 0.4 mg sublingual Q5-15M PRN (Reason: chest pain) Qty: 90 6RF pravastatin 80 mg tablet 80 mg PO QHS cyanocobalamin (vitamin B-12) 1,000 mcg tablet 1,000 mcg PO DAILY pyridoxine (vitamin B6) 100 mg tablet 100 mg PO DAILY verapamil 300 mg capsule, [address] 300 mg PO QHS insulin glargine [Lantus Solostar U-100 Insulin] 100 unit/mL (3 mL) insulin pen 34 unit subcut QDAY glipizide 2.5 mg tablet 2.5 mg PO BID brimonidine 0.2 % drops 1 drp ophthalmic (eye) BID Patient Comments: INSTILL 1 DROP INTO EACH EYE TWICE DAILY calcium carbonate-vitamin D3 [Calcium 600 + D(3)] 600 mg-5 mcg (200 unit) tablet 1 tab PO DAILY losartan 100 mg tablet 100 mg PO DAILY meclizine 12.5 mg tablet 12.5 mg PO Q6H Januvia 25 mg tablet 25 mg PO DAILY pantoprazole [Protonix] 40 mg tablet,delayed release (DR/EC) 40 mg PO DAILY Qty: 30 0RF ondansetron 4 mg tablet,disintegrating 4 mg PO Q6H PRN (Reason: nausea) Primary Care Provider: Santo Taveras Referrals: Santo Taveras MD [Primary Care Provider, Medical] Activity Restrictions/Additional Instructions: Thank you for trusting us with your care today! Your labs images are most consistent with likely community-acquired pneumonia given your cough and finding of infiltrate your chest x-ray. Your CT scan did not reveal evidence of a blood clot or mass or signs of cancer. Please take the antibiotic as been prescribed until course is complete. Please take Tylenol (2 pills, 650 mg), ibuprofen (2 pills, 400 mg) every 6 hours as needed for pain and fever control. Please return to the emergency department if your symptoms change or worsen. Specifically develop severe shortness of breath, chest pain or if you lose consciousness Please follow with your primary care physician for further outpatient evaluation and management. Print Language: Colombian Disposition Disposition: Home, Self Care Discharge Date/Time: 10/27/25 18:10
[2025-10-27 16:00] LABS: Anion Gap 11 (7-18); BUN 16 mg/dL (4-19); BUN/Creat Ratio 22.6 RATIO (10-20); Calcium,Total 8.9 mg/dL (7.6-11.0); Carbon Dioxide 22.0 mmol/L (20.0-29.0); Chloride 109 mmol/L (96-106); Estimated Creatinine Clearance 54.35 ml/min (50-250); Glucose 281 mg/dL (70-99); Potassium 3.9 mmol/L (3.5-5.1); Troponin T High Sensitivity 17 ng/L (<=14)
--- NOTE | 2025-10-27 16:00 | CT_ITS ---
PROCEDURE: CTA CHEST W/WO CONTRAST 10/27/2025 REASON FOR EXAM: SOB, MASS ON CXR TECHNIQUE: Procedure Code: [id number] Modality: CT Procedure: CTA CHEST W/WO CONTRAST Multiplanar Sagittal and Coronal images were obtained. CONTRAST: Isovue 370 VOLUME: 75 mL One or more dose reduction techniques were used (e.g., Automated exposure control, adjustment of the mA and/or kV according to patient size, use of iterative reconstruction technique). RADIATION DOSE SUMMARY: CTDlvol: 11.34 mGy DLP: 378.72 mGycm COMPARISON: Chest x-ray 10/27/2025. # of known CTs in the past 12 months: 0 # of known Cardiac Nuclear Medicine Studies in the past 12 months: 0 FINDINGS: Thoracic Aorta: No aneurysm. Atherosclerotic calcifications. Heart: Mild cardiomegaly. Atherosclerotic calcifications of the coronary arteries. Pulmonary Vessels: No pulmonary embolism. Hardware: Unremarkable. Lymph nodes: No lymphadenopathy. Lungs, pleura and Airways: Small bilateral pleural effusions extending to the right major fissure. Scattered pulmonary nodules measuring up to 2 mm. No pneumothorax. Upper Abdomen: Unremarkable. Bones: No acute bony abnormalities. CT/CTA Chest W/WO Contrast IMPRESSION: No evidence of pulmonary embolism. Bilateral small pleural effusions. Scattered pulmonary nodules measure up to 2 mm. Follow-up with CT chest after 12 months may be performed for high-risk patients. Reading Location: [facility]
--- OUTSIDE RECORDS SUMMARY | 2025-10-27 16:05 | XMS RPT_ITS | CCD ---
Author Organization [facility] CliniSynj Care Team Providers Care Transition Of Care Specialist Name Role Phone DANIEL MARCELO E Unavailable Unavailable DAVIAN, DANIEL E Unavailable Unavailable POLITAY LACY Unavailable Unavail able DAVIAN DANIEL Unavailable Unavailable DAVIAN, DANIEL Unavailable Unavailable Kate, Santo Unavailable Unavailable DAVIAN, DANIEL Unavailable Unavailable [...] Unavailable Santo Love MD Primary Care Provider [facility], Jenny Unavailable [facility], Keti Unavailable Santo Love MD Primary Care Provider [facility], Jenny Unavailable [facility], Keti Unavailable Santo Love MD Primary Care Provider [facility], Jenny Unavailable [facility], Keti Unavailable Santo Love MD Primary Care Provider [facility], Jenny [facility]available [facility] Unavailable [facility], Keti Unavailable Dr. Santo Love Primary [...] Cullen Attending Unavailable Tahir Rivas Referring Unavailable [place], Santo Primary Care Unavailable Gomez Johansen Attending Unavailable Teralexis, Vincent Consulting Unavailable Tereletswei, Vincent Admitting Unavailable [place], Santo Primary Care Unavailable BarrieNitish Consulting Unavailable Gomez Johansen Consulting Unavailable Warren, Rajeev Attending Unavailable Kate, Santo Referring Unavailable Kate, Santo Primary Care Unavailable Friend, Cullen Attending Unavailable Friend, Cullen Referring Unavailable [place], Santo Primary Care Unavailable Mosteller, Tahir Admitting Unavailable Mosteller, Tahir Consulting Unavailable eller, Tahir Attending Unavailable Kate, Santo Primary Care Unavailable Mosteller, Tahir Attending Unavailable Mosteller, Tahir Admitting Unavailable [place], Santo Primary Care Unavailable Gomez Johansen Attending Unavailable Tereletsky, Vincent Admitting Unavailable [place], Santo Primary Care Unavailable Terleninky, Vincent Consulting Unavailable BarrieNitish Consulting Unavailable Jacques Fortune Attending Unavailable Jacques Fortune Referring Unavailable [place], Santo Primary Care Unavailable Rob, Tahir Attending Unavailable Friend, Cullen Attending Unavailable Mosteller, Tahir Referring Unavailable Friend, Cullen Attending Unavailable Mosteller, Tahir Referring Unavailable [place], Santo Referring Unavailable Roof SUPERVISOR JOINERS, Skyler Camarena Attending Unavailable [place], Santo Primary Care Unavailable Warren, Rajeev Attending Unavailable Warren, [place] Referring Unavailable [place], Santo Primary Care Unavailable Warren, [place] Attending Unavailable Kate, Santo Primary Care Unavailable Friend, Cullen Attending Unavailable FriendCullen Consulting Unavailable [place], Santo Referring Unavailable [place], Santo Primary Care Unavailable Friend, Cullen Attending Unavailable [place], Santo Referring Unavailable [place], Santo Primary Care Unavailable Friend, Cullen Attending Unavailable Kate, Santo Referring Unavailable Kate, Santo Primary Care Unavailable Friend, Cullen Attending Unavailable Mosteller, Tahir Referring Unavailable Kate, Santo Primary Care Unavailable Ashwini WASTE COLLECTION DRIVER.Raisa LUIS Unavailable Suppan WASTE COLLECTION DRIVER.Star LUISJuliana A Unavailable Suppparris WASTE COLLECTION DRIVER.TOBY Juliana A Unavailable KATE, SANTO J Primary [...] Alendronate Drug Allergy 8 Other: See Comments [facility] Work Phone: metFORMIN (1 source) metFORMIN Drug Allergy 7 Diarrhea [facility] Work Phone: Penicillins (antibiotic) (1 source) Amoxicillin Drug Allergy 7 Diarrhea [facility] Work Phone: Shellfish (1 source) Shellfish Food Allergy 8 Diarrhea, Vomiting [facility] (20 sources) alendronate; Translations: [ALENDRONATE SODIUM] Drug Allergy 8 Other: See Comments [facility] Other [place] [facility] (20 sources) amoxicillin; Translations: [AMOXICILLIN] Drug Allergy 7 Diarrhea [facility] Repository (20 sources) metFORMIN; Translations: [METFORMIN] Drug Allergy 7 Diarrhea [facility] Repository (20 sources) Shellfish; Translations: [SHELLFISH] Propensity to adverse reactions to food (disorder) 8 Diarrhea, Vomiting [facility] Other [place] [facility] (7 sources) Shellfish; Translations: [shellfish derived] Propensity to adverse reactions 4 Nausea/Vom/Diar carissa [facility] Medications Current Medications Medication Drug [...] Comment on above: Take 1 capsule by [facility] twice daily. Dulaglutide (18 sources) GLP-1 Receptor [...] tablet Indications: Atherosclerosis of coronary artery of [place] heart without angina pectoris, unspecified vessel or [...] 1/2 hr before meal. polyethylene glycol 3350 541992 mg / potassium chloride 2970 mg / sodium bicarbonate 6740 mg / sodium chloride 5860 mg / sodium sulfate 05601 mg powder for oral solution (2 sources) [...] once daily. Take 1 capsule by mo [facility] daily at bedtime. vitamin b12 1 mg [...] Comment on above: [facility] two times a day with meals. [...] on above: Take 1 capsule by mo [facility] once daily. 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] Onset: 7 Resolved: 4 01-10-2017 Episodic Other aftercare (1 source) 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; Translations: [Type 2 [...] Basophils (Bld) [#/Vol] 0.09 10*3/uL Normal <0.11 [facility] Comment on above: Order Comment: Speci men Type: BLOOD SPECIMENOrdering Facility: [facility] Address: [address] [place] [address] Performed By: #### 5 7021-8 ####[facility] LABCLIA [id number] [place] [address] [place] Basophils/100 WBC (Bld) 1.0 % Normal [facility] Comment on above: Order Comment: Speci men Type: BLOOD SPECIMENOrdering Facility: [facility] Address: [address] [place] [address] Performed By: #### 5 7021-8 ####[facility] LABCLIA [id number] [place] [address] [place] Differential cell count method Nom (Bld) Auto Normal [facility] Comment on above: Order Comment: Speci men Type: BLOOD SPECIMENOrdering Facility: [facility] Address: [address] [place] [address] Performed By: #### 5 7021-8 ####[facility] LABCLIA [id number] [place] [address] [place] Eosinophils (Bld) [#/Vol] 0.17 10*3/uL Normal <0.46 [facility] Comment on above: Order Comment: Speci men Type: BLOOD SPECIMENOrdering Facility: [facility] Address: [address] [place] [address] Performed By: #### 5 7021-8 ####[facility] LABCLIA [id number] [place] [address] [place] Eosinophils/100 WBC (Bld) 1.9 % Normal [facility] Comment on above: Order Comment: Speci men Type: BLOOD SPECIMENOrdering Facility: [facility] Address: [address] [place] [address] Performed By: #### 5 7021-8 ####[facility] LABCLIA [id number] [place] [address] [place] Erythrocyte distribution width (RBC) [Ratio] 14.1 % Normal 11.5-15.0 [facility] Comment on above: Order Comment: Speci men Type: BLOOD SPECIMENOrdering Facility: [facility] Address: [address] [place] [address] Performed By: #### 5 7021-8 ####[facility] LABCLIA [id number] [place] [address] [place] Hematocrit (Bld) [Volume fraction] 41.4 % Normal 36.0-46.0 [facility] Comment on above: Order Comment: Speci men Type: BLOOD SPECIMENOrdering Facility: [facility] Address: [address] [place] [address] Performed By: #### 5 7021-8 ####[facility] LABCLIA [id number] [place] [address] [place] Hemoglobin (Bld) [Mass/Vol] 13.6 g/dL Normal 11.5-15.5 [facility] Comment on above: Order Comment: Speci men Type: BLOOD SPECIMENOrdering Facility: [facility] Address: [address] [place] [address] Performed By: #### 5 7021-8 ####[facility] LABCLIA [id number] [place] [address] [place] Immature granulocytes (Bld) [#/Vol] 0.07 10*3/uL Normal <0.10 [facility] Comment on above: Order Comment: Speci men Type: BLOOD SPECIMENOrdering Facility: [facility] Address: [address] [place] [address] Performed By: #### 5 7021-8 ####[facility] LABCLIA [id number] [place] [address] [place] Immature granulocytes/100 WBC (Bld) 0.8 % Normal [facility] Comment on above: Order Comment: Speci men Type: BLOOD SPECIMENOrdering Facility: [facility] Address: [address] [place] [address] Performed By: #### 5 7021-8 ####[facility] LABCLIA [id number] [place] [address] [place] Lymphocytes (Bld) [#/Vol] 1.80 10*3/uL Normal 1.00-4.00 [facility] Comment on above: Order Comment: Speci men Type: BLOOD SPECIMENOrdering Facility: [facility] Address: [address] [place] [address] Performed By: #### 5 7021-8 ####[facility] LABCLIA [id number] [address] [place] Lymphocytes/100 WBC (Bld) 19.8 % Normal [facility] Comment on above: Order Comment: Speci men Type: BLOOD SPECIMENOrdering Facility: [facility] Address: [address] [place] [address] Performed By: #### 5 7021-8 ####[facility] LABCLIA [id number] [place] [address] [place] MCH (RBC) [Entitic mass] 30.6 pg Normal 26.0-34.0 [facility] Comment on above: Order Comment: Speci men Type: BLOOD SPECIMENOrdering Facility: [facility] Address: [address] [place] [address] Performed By: #### 5 7021-8 ####[facility] LABCLIA [id number] [place] [address] [place] MCHC (RBC) [Mass/Vol] 32.9 g/dL Normal 30.5-36.0 [facility] Comment on above: Order Comment: Speci men Type: BLOOD SPECIMENOrdering Facility: [facility] Address: [address] [place] [address] Performed By: #### 5 7021-8 ####[facility] LABCLIA [id number] [place] [address] [place] MCV (RBC) [Entitic vol] 93.2 fL Normal 80.0-100.0 [facility] Comment on above: Order Comment: Speci men Type: BLOOD SPECIMENOrdering Facility: [facility] Address: [address] [place] [address] Performed By: #### 5 7021-8 ####[facility] LABCLIA [id number] [place] [address] [place] Monocytes (Bld) [#/Vol] 0.84 10*3/uL Normal <0.87 [facility] Comment on above: Order Comment: Speci men Type: BLOOD SPECIMENOrdering Facility: [facility] Address: [address] [place] [address] Performed By: #### 5 7021-8 ####[facility] LABCLIA [id number] [place] [address] [place] Monocytes/100 WBC (Bld) 9.2 % Normal [facility] Comment on above: Order Comment: Speci men Type: BLOOD SPECIMENOrdering Facility: [facility] Address: [address] [place] [address] Performed By: #### 5 7021-8 ####[facility] LABCLIA [id number] [place] [address] [place] Neutrophils (Bld) [#/Vol] 6.14 10*3/uL Normal 1.45-7.50 [facility] Comment on above: Order Comment: Speci men Type: BLOOD SPECIMENOrdering Facility: [facility] Address: [address] [place] [address] Performed By: #### 5 7021-8 ####[facility] LABCLIA [id number] [place] [address] [place] Neutrophils/100 WBC (Bld) 67.3 % Normal [facility] Comment on above: Order Comment: Speci men Type: BLOOD SPECIMENOrdering Facility: [facility] Address: [address] [place] [address] Performed By: #### 5 7021-8 ####[facility] LABCLIA [id number] [place] [address] [place] Nucleated RBC (Bld) [#/Vol] 10*3/uL Normal <0.01 [facility] Comment on above: Order Comment: Speci men Type: BLOOD SPECIMENOrdering Facility: [facility] Address: [address] [place] [address] Performed By: #### 5 7021-8 ####[facility] LABCLIA [id number] [place] [address] [place] Nucleated RBC/100 WBC (Bld) [Ratio] 0.0 /100 WBC Normal [facility] Comment on above: Order Comment: Speci men Type: BLOOD SPECIMENOrdering Facility: [facility] Address: [address] [place] [address] Performed By: #### 5 7021-8 ####[facility] LABCLIA [id number] [place] [address] [place] Platelet mean volume (Bld) [Entitic vol] 10.4 fL Normal 9.0-12.7 [facility] Comment on above: Order Comment: Speci men Type: BLOOD SPECIMENOrdering Facility: [facility] Address: [address] [place] [address] Performed By: #### 5 7021-8 ####[facility] LABCLIA [id number] [place] [address] [place] Platelets (Bld) [#/Vol] 253 10*3/uL Normal 150-400 [facility] Comment on above: Order Comment: Speci men Type: BLOOD SPECIMENOrdering Facility: [facility] Address: [address] [place] [address] Performed By: #### 5 7021-8 ####[facility] LABCLIA [id number] [place] [address] [place] RBC (Bld) [#/Vol] 4.44 10*6/uL Normal 3.90-5.20 [facility] Comment on above: Order Comment: Speci men Type: BLOOD SPECIMENOrdering Facility: [facility] Address: [address] [place] [address] Performed By: #### 5 7021-8 ####[facility] LABCLIA [id number] [place] [address] [place] WBC (Bld) [#/Vol] 9.11 10*3/uL Normal 3.70-11.00 [facility] Comment on above: Order Comment: Speci men Type: BLOOD SPECIMENOrdering Facility: [facility] Address: [address] [place] [address] Performed By: #### 5 7021-8 ####[facility] LABCLIA [id number] [address] [place] HbA1c (Bld)on 08-23-2025 Average glucose Estimated from glycated hemoglobin (Bld) [Mass/Vol] 174 mg/dL Normal [facility] Comment on above: Order Comment: Jennie metz Type: BLOOD SPECIMENOrdering Facility: [facility] Address: [address] [place] [address] Result Comment: eAG: (Estimated average glucose) is a calculated value from HgbA1c and is risk control representative of the average blood glucose level in the last 2-3 month period. Performed By: #### 5 5454-3 ####[facility] LABIA [id number] [address] [place] HbA1c (Bld) [Mass fraction] 7.7 % High 4.3-5.6 [facility] Comment on above: Order Comment: Jennie metz Type: BLOOD SPECIMENOrdering Facility: [facility] Address: [address] [place] [address] Result Comment: [place] Diabetes Association guidelines indicate that patients with HgbA1c in the range 5.7-6.4% are at increased risk for development of diabetes, and intervention by lifestyle modification may be beneficial. HgbA1c greater or equal to 6.5% is considered diagnostic of diabetes. Performed By: #### 5 5454-3 ####[facility] LABCLIA [id number] [place] [address] [place] Hepatic function 2000 panelo n 08-23-2025 Albumin [Mass/Vol] 4.3 g/dL Normal 3.9-4.9 [facility] Comment on above: Order Comment: Jennie metz Type: BLOOD SPECIMENOrdering Facility: [facility] Address: [address] [place] [address] Performed By: #### 2 4325-3, 44400-3 ####[facility] LABCLIA [id number] [place] [address] [place] ALP [Catalytic activity/Vol] 94 U/L Normal 34-123 [facility] Comment on above: Order Comment: Speci men Type: BLOOD SPECIMENOrdering Facility: [facility] Address: [address] [place] [address] Performed By: #### 2 4325-3, 28163-7 ####[facility] LABCLIA [id number] [place] [address] [place] ALT [Catalytic activity/Vol] 19 U/L Normal 7-38 [facility] Comment on above: Order Comment: Speci men Type: BLOOD SPECIMENOrdering Facility: [facility] Address: [address] [place] [address] Performed By: #### 2 4325-3, 36781-6 ####[facility] LABCLIA [id number] [place] [address] [place] AST [Catalytic activity/Vol] 23 U/L Normal 13-35 [facility] Comment on above: Order Comment: Speci men Type: BLOOD SPECIMENOrdering Facility: [facility] Address: [address] [place] [address] Performed By: #### 2 4325-3, 48715-0 ####[facility] LABCLIA [id number] [place] [address] [place] Bilirubin [Mass/Vol] 0.4 mg/dL Normal 0.2-1.3 [facility] Comment on above: Order Comment: Speci men Type: BLOOD SPECIMENOrdering Facility: [facility] Address: [address] [place] [address] Performed By: #### 2 4325-3, 25647-1 ####[facility] LABCLIA [id number] [place] [address] [place] Bilirubin.conjugated [Mass/Vol] 0.1 mg/dL Normal <0.3 [facility] Comment on above: Order Comment: Speci men Type: BLOOD SPECIMENOrdering Facility: [facility] Address: [address] [place] [address] Performed By: #### 2 4325-3, 31493-1 ####[facility] LABCLIA [id number] [place] [address] [place] Protein [Mass/Vol] 7.2 g/dL Normal 6.3-8.0 [facility] Comment on above: Order Comment: Speci men Type: BLOOD SPECIMENOrdering Facility: [facility] Address: [address] [place] [address] Performed By: #### 2 4325-3, 62880-5 ####[facility] LABCLIA [id number] [place] [address] [place] Iron and Iron binding capaci ty panelon 08-23-2025 Iron [Mass/Vol] 116 ug/dL Normal 41-186 [facility] Comment on above: Order Comment: Speci men Type: BLOOD SPECIMENOrdering Facility: [facility] Address: [address] [place] [address] Performed By: #### 2 4325-3, 99839-9 ####[facility] LABCLIA [id number] [place] [address] [place] Iron binding capacity [Mass/Vol] 332 ug/dL Normal 232-386 [facility] Comment on above: Order Comment: Speci men Type: BLOOD SPECIMENOrdering Facility: [facility] Address: [address] [place] [address] Performed By: #### 2 4325-3, 14272-7 ####[facility] LABCLIA [id number] [place] [address] [place] Iron/TIBC [Molar ratio] 34.9 % Normal 15.0-57.0 [facility] Comment on above: Order Comment: Speci men Type: BLOOD SPECIMENOrdering Facility: [facility] Address: [address] [place] [address] Performed By: #### 2 4325-3, 70194-9 ####[facility] LABCLIA [id number] [place] [id number] [facility] CNOVon 08-19-2025 CNOV Office Visit (FAMPWS ) KELLIE DOZIER ([id number]) 1945 F NFR Date Time Provider Department 08/19/25 10:00 AM [facility] your visit today, we recorded [...] clinical practice. J Neurol. 2023Apr 05. doi: 10.1007/[id number]. Epub ahead of print. PMID: [id number]. Santo Loev MD 08/19/2025 11:03 AM Signed Kellie Dozier [...] PCP - General (Family Medicine) Raisa Maradiaga APRN.SALES ACCOUNT SPECIALIST as Drag Car Racer (Family Medicine) Juliana Davis APRN.SALES ACCOUNT SPECIALIST as Drag Car Racer (Family Medicine) Dr Guerrero, optho. Heart group [...] the de (more content not included)... Normal [facility] GENEVA SCREENING W TOMOon 07-06 GENEVA SCREENING W SANCHEZ * * *Final Report* * * DATE OF EXAM: Jul 06 2025 10:27AM [facility] 0582 - GENEVA SCREENING W SANCHEZ / PROCEDURE REASON: Encounter for screening mammogram for malignant neoplasm of breast * * * * Physician Interpretation * * * * RESULT: [place] [address] [place] [id number] #[id number] - GENEVA SCREENING W SANCHEZ HISTORY: 80 [...] Hunter Dye M.D. Electronically signed on: 07/07/2025 Complaint Manager: JEANNETTE Transcribe Date/Time: Jul 06 2025 10:16A Dictated by: HUNTER DYE MD This examination was interpreted and the report reviewed and electronically signed by: HUNTER DYE MD on Jul 07 2025 9:47AM EST [id number] Normal [facility] CNPNon 07-05-2025 CNPN Telephone (4CQ) KELLIE DOZIER ([id number]) 1945 F NFR Date Time Provider Department 07/05/25 [facility] 4CQ During your visit today, we recorded the following information about you: Deborah Viera 07/05/2025 9:12 AM Signed Patient is scheduled tomorrow 07/06/2025 for her Screening Mammogram. Can you please place Mammogram order? JARVIS Garcia Christy, APRN.CNP 07/05/2025 3:11 PM Signed Order placed. Raisa Maradiaga APRN.SALES ACCOUNT SPECIALIST Allergies As of Date: 07/05/2025 Noted Allergy [...] mammogram for malignant neoplasm of breast [Z12.31] Order(s):[facility] SCREENING W SANCHEZ [[id number]] Order #: [id number] FUTURE Prescriptions as of 07/05/2025 - glipiZIDE [...] [D12.6] 10/17/2011 10/02/2022 Diverticulitis [K57.92] 10/24/2011 10/02/2022 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 anticoagulant [Z79.01]01/10/2017 07/13/2024 Persistent [...] Status:Closed by MARIA ISABEL TRONCOSO on 07/05/25 [facility] CNOVon 05-29-2025 CNOV Office Visit (FAMPWS ) KELLIE DOZIER ([id number]) 1945 F NFR Date Time Provider Department 05/29/25 11:40 AM [facility] During your visit today, we recorded the following information about you: Pulse Blood pressure Weight 66/minute 124/69 70.3 kg Juliana Davis APRN.[facility] 05/29/2025 11:51 AM Signed This is a [...] percutaneous left heart catheterization 06/24/2011 done at [place] Hydronephrosis, bilateral 12/16/2023 Hydroureter Lung nodule 01/2024 [...] of Onset (more content not included)... Normal [facility] 05-17-2025 [facility] Telephone ([employer]) KELLIE DOZIER ([id number]) 1945 F NFR Date Time Provider Department [...] [D12.6] 10/17/2011 10/02/2022 Diverticulitis [K57.92] 10/24/2011 10/02/2022 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 anticoagulant [Z79.01]01/10/2017 07/13/2024 Persistent [...] Encounter Status:Closed by [facility]E [facility] KELLIE DOZ[facility] ([id number]) 1945 F NFR Date Time Provider Department 05/17/25 ELIZABETH ORTEGA GENSWS During your visit today, we recorded the following information about you: Elizabeth Ortega APRN.[facility] 05/17/2025 3:27 PM Signed RN attempting to contact patient to reschedule appt for today with Dr. Calderon. RN transferred phone to ct. 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 Author Type: Registered Nurse Type: [id number] Filed: 05/09/2025 10:29 Note Text: The patient received a copy of Colonoscopy discharge instructions that contain information for how to contact the physician who performed the procedure and when to seek medical care. Normal [facility] Colonoscopyon 05-09-2025 Colonoscopy [facility] Gastrointestinal Endoscopy Patient Name: Kellie Dozier Procedure [...] previous diet. Procedure Code(s): --- Professional --- 40047, Colonoscopy, flexible; with biopsy, single or multiple 25073, 59, Moderate sedation services provided by the same physician or other qualified health animal daycare provider performing the diagnostic or therapeutic service that [...] Personal h (more content not included)... Normal [facility] Colonoscopy Study observatio non 05-09-2025 [facility] Gastrointestinal Endoscopy Patient Name: Kellie Dozier [...] pending p (more content not included)... PROVATION [facility] Radiology Study observation (narrative) [facility] HISTORY PHYSICALon HISTORY PHYSICAL HNO ID: [id number] Author: ZARI SORENSON MD Service: General Surgery [...] T2DM, MARYCHUY and osteopenia. Kellie follows with [facility] for A.Fib, HTN, HLD AND CAD s/p stent x 4 (2008). Last OV 10/25, Last ECHO 07/26 EF: 55%. She denies CP, SOB, dizziness, palpitations, syncope, edema, recent hospitalizations Kellie has undergone prior endoscopy. Last colonoscopy was 09/[address] Calderon at [facility]. Sedation: Midazolam 3 mg IV, Fentanyl [...] percutaneous left heart catheterization 06/24/2011 done at [facility], bilateral 12/16/2023 Hydroureter Lung nodule 01/2024 Malignant [...] 2007 J (more content not included)... Normal [facility] Pathology biopsy report Ephraim (Tiss)on 05-09-2025 AP DISCLAIMER Normal [facility] Comment on above: Order Comment: Jennie metz Type: TISSUE SPECIMENOrdering Facility: [facility] Address: [address] [place] [address] Result Comment: Linda sanchez Developed Test (LDT) Disclaimer: Performance characteristics of immunohistochemical, immunofluorescent, and chromogenic in-situ hybridization tests have been determined by the performing laboratory within [facility]'s [facility] Pathology and Laboratory Medicine Department ([facility], [facility], [facility], [facility], [facility], [facility], or [facility]) in a manner consistent with CLIA requirements. One or more of these tests may not have been cleared or approved by the FDA. RT-PLM is regulated under CLIA as qualified to perform high-complexity testing. These tests are used for clinical purposes. These should not be regarded as investigational or for research. Positive and negative controls stain appropriately. Performed By: #### 6 6121-5 ####[facility] LABCLIA [id number] [place] [address] [place] CASE REPORT Normal [facility] Comment on above: Order Comment: Jennie metz Type: TISSUE SPECIMENOrdering Facility: [facility] Address: [address] [place] [address] Result Comment: Surg [facility] Pathology Report Case: [id number] Authorizing Provider: Zari Sorenson MD Collected: 05/09/2025 10:10 AM Ordering Location: Ambulatory Surgery Received: 05/09/2025 04:30 PM Pathologist: Rod Reis MD Specimen: Colon, Cecum, Biopsy, Cecal mass bx Performed By: #### 6 6121-5 ####[facility] LABCLIA [id number] [address] OF [place] DIAGNOSIS COMMENT In the context of a mass, superficial biopsies may not be risk control representative of the entire lesion. Normal [facility] Comment on above: Order Comment: eJnnie metz Type: TISSUE SPECIMENOrdering Facility: [facility] Address: [address] [place] [address] Performed By: #### 6 6121-5 ####[facility] LABCLIA [id number] [address] STATES [place] FINAL DIAGNOSIS Normal [facility] Comment on above: Order Comment: Speci men Type: TISSUE SPECIMENOrdering Facility: [facility] Address: [address] [place] [address] Result Comment: Claudy Colby namcesar, cecum, biopsy: - Fragments of tubular adenoma, see comment SR/JR 05/10/2025 at 1514 EDT Performed By: #### 6 6121-5 ####[facility] LABCLIA [id number] [address] STATES OF [facility] FINAL PERFORMING LAB Normal [facility] Comment on above: Order Comment: Speci men Type: TISSUE SPECIMENOrdering Facility: [facility] Address: [address] [place] [address] Result Comment: Diag nostic interpretation performed at: [facility], [address] [place] [address] CLIA# [id number] Glove Cleaner: Luigi Vu MD Performed By: #### 6 6121-5 ####[facility] LABCLIA [id number] [address] STATES [place] GROSS DESCRIPTION Normal [facility] Comment on above: Order Comment: Speci men Type: TISSUE SPECIMENOrdering Facility: [facility] Address: [address] [place] [address] Result Comment: Claudy krueger, Cecum, Biopsy Received in formalin are multiple pieces of sylvester, soft tissue aggregating to 1.5 x 0.4 x 0.3 cm. Totally submitted in one cassette. DL May 10, 2025 2:22 AM Gross examination performed at [facility], [address] [place] [address] Performed By: #### 6 6121-5 ####[facility] ZHENG [id number] [address] OF [facility] CNOVon 05-04-2025 CNOV Office Visit (GENSWS ) YELENAKELLIE Armand ([id number]) 1945 F NFR Date Time Provider Department 05/04/25 10:30 AM ELIZABETH ORTEGA During your visit today, we recorded the following information about you: Pulse Respiration Blood pressure Weight 62/minute 14/minute 146/70 70.5 kg Elizabeth Ortega APRN.SALES ACCOUNT SPECIALIST 05/04/2025 10:49 AM Signed HISTORY AND PHYSICAL [...] T2DM, MARYCHUY and osteopenia. Kellie follows with [facility] for A.Fib, HTN, HLD AND CAD s/p stent x 4 (2008). Last OV 10/25, Last ECHO 07/26 EF: 55%. She denies CP, SOB, dizziness, palpitations, syncope, edema, recent hospitalizations Kellie has undergone prior endoscopy. Last colonoscopy was 09/[address] Calderon at [facility]. Sedation: Midazolam 3 mg IV, Fentanyl [...] percutaneous left heart catheterization 06/24/2011 done at [place] Hydronephrosis, bilateral 12/16/2023 Hydroureter Lung nodule 01/2024 [...] APPENDECTOMY BREAST (more content not included)... Normal [facility] CNOVon 05-01-2025 [facility] KELLIE DOZIER ([id number]) 1945 F NFR Date Time Provider Department 05/01/25 1:40 PM RAISA MARADIAGA FAMEvelinWS During your visit today, we recorded the following information about you: Pulse Respiration Blood pressure Weight 66/minute 16/minute 179/65 70.8 kg Raisa Maradiaga APRN.SALES ACCOUNT SPECIALIST 05/01/2025 8:16 PM Signed This is a [...] [facility] 12/16/2023 Hydroureter Lung nodule 01/2024 Malignant [...] COLON SURGERY HX Diverticular disease COLONOSCOPY 2006 [facility] COLONOSCOPY 09/12/2014 no polyps, repeat due [...] daily. C (more content not included)... Normal [facility] HbA1c (Bld)on 05-01-2025 Average glucose Estimated from glycated hemoglobin (Bld) [Mass/Vol] 186 mg/dL Normal [facility] Comment on above: Order Comment: Joshgeovanna isaías Type: BLOOD SPECIMENOrdering Facility: [facility] Address: [address] [place] [address] Result Comment: eAG: (Estimated average glucose) is a calculated value from HgbA1c and is risk control representative of the average blood glucose level in the last 2-3 month period. Performed By: #### 5 5454-3 ####[facility] LABIA [id number] [place] [address] [place] HbA1c (Bld) [Mass fraction] 8.1 % High 4.3-5.6 [facility] Comment on above: Order Comment: eJnnie metz Type: BLOOD SPECIMENOrdering Facility: [facility] Address: [address] [place] [address] Result Comment: Amer ican Diabetes Association guidelines indicate that patients with HgbA1c in the range 5.7-6.4% are at increased risk for development of diabetes, and intervention by lifestyle modification may be beneficial. HgbA1c greater or equal to 6.5% is considered diagnostic of diabetes. Performed By: #### 5 5454-3 ####[facility] LABIA [id number] [address] OF [facility] CNOVon 03-07-2025 [facility] KELLIE DOZIER ([id number]) 1945 F NFR Date Time Provider Department 03/07/25 11:00 AM RAISA MARADIAGA During your visit today, we recorded the following information about you: Pulse Respiration Blood pressure 55/minute 16/minute 133/62 Raisa Maradiaga APRN.SALES ACCOUNT SPECIALIST 03/07/2025 11:18 AM Signed Continue taking your losartan by splitting the 50-mg tablets to take 1? tablets daily as prescribed. Continue checking your blood sugar levels each morning and at night so we can better track your readings. -Send me a FoxyTasks message with the medication you are referring to. Raisa Maradiaga APRN.SALES ACCOUNT SPECIALIST 03/07/2025 12:51 PM Signed This is a [...] sitagliptin in December; previously took it in [id number]. - Currently taking glipizide 2.5 mg BID. [...] percutaneous [facility] heart [facility] 12/16/2023 Hydroureter Lung nodule 01/2024 Malignant [...] disintegrating ( (more content not included)... Normal [facility] ALBUMIN/CREATININE RATIO, UR INEon 02-08-2025 Albumin DL <= 20 mg/L (U) [Mass/Vol] mg/L mg/L [facility] Albumin/Creatinine (U) [Mass ratio] [facility] Comment on above: Not calculated Adult [...] 9.7 mg/dL Low 20.0 - 300.0 mg/dL [facility] Interpretation and review of laboratory results Abnormal [facility] ALBUMIN/CREATININE RATIO, UR INEon 02-07-2025 Albumin DL <= 20 mg/L (U) [Mass/Vol] mg/dL Normal [facility] Comment on above: Order Comment: Speci men Type: URINE SPECIMENOrdering Facility: [facility] Address: [address] [place] [address] Performed By: #### U ACR ####[facility] LABCLIA [id number] [address] OF [facility] Albumin/Creatinine (U) [Mass ratio] Normal [facility] Comment on above: Order Comment: Speci men Type: URINE SPECIMENOrdering Facility: [facility] Address: [address] [place] [address] Result Comment: Not calculated Adult Male and Female Nephrotic Criteria: <30 mg/g is considered normal to mildly increased 30-300 mg/g is considered moderately increased >300 mg/g is considered severely increased KDIGO. (2013). KDIGO 2012 Clinical Practice Guideline for the Evaluation and Management of Chronic Kidney Disease. Official Journal of the International Society of Nephrology, 3(1), 1-150. Performed By: #### U ACR ####[facility] LABCLIA [id number] [address] [place] Creatinine (U) [Mass/Vol] 9.7 mg/dL Low 20.0-300.0 [facility] Comment on above: Order Comment: Speci men Type: URINE SPECIMENOrdering Facility: [facility] Address: [address] [place] [address] Performed By: #### U ACR ####[facility] LABCLIA [id number] [place] [address] [place] CNOVon 02-07-2025 CNOV Office Visit (FAMPWS ) KELLIE DOZIER ([id number]) 1945 F NFR Date Time Provider Department 02/07/25 11:00 AM [facility] During your visit today, we recorded [...] percutaneous [facility] heart [facility] 12/16/2023 Hydroureter Lung nodule 01/2024 Malignant [...] bedtime. cyanoc (more content not included)... Normal [facility] 02-07-2025 RAEANN Telephone (ARABELLA) KELLIE DOZIER ([id number]) 1945 F NFR Date Time Provider Department 02/07/25 RAISA MARADIAGA During your visit today, we recorded the following information about you: Raisa Maradiaga APRN.CNP 02/07/2025 6:09 PM Signed Can we please fax today's office note to [facility] so they are aware of recent medication changes. Raisa Maradiaga APRN.SALES ACCOUNT SPECIALIST Brittney Hinton LPN 02/08/2025 11:00 AM Signed OV note faxed to [facility]. 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/2017 07/13/2024 Persistent [...] Encounter Status:Closed by BRITTNEY HINTON on 02/08/25 [facility]N [facility] KELLIE DOZIER ([id number]) 1945 F NFR Date Time Provider Department 02/07/25 RAISA MARADIAGA [facility] During your visit today, we recorded the following information about you: Raisa Maradiaga APRN.SALES ACCOUNT SPECIALIST 02/07/2025 6:10 PM Signed Enrico Pate, Is there anyway to check to see if Kellie is a candidate for any manufacture programs for either a GLP1 (ie trulicity, ozempic, mounjaro) or jardiance? Thanks, Herlinda Mittal, [facility] 02/09/2025 7:57 AM Signed Don has available assistance through [employer]. Sw can speak with patient regarding Yony Nordisk PAP guidelines. Herlinda Dickinson, [facility] 02/09/2025 9:12 AM Signed Rambo left message for patient to return call to discuss below prescription assistance needs. 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 Normal [facility] US ABD RIGHT UPPER QUADRANTo n 01-26-2025 [...] ductal dilatation. The spleen is normal size. Complaint Manager: SU Transcribe Date/Time: Jan 28 2025 6:33A Dictated by : KERI MILLER MD This examination was interpreted and the report reviewed and electronically signed by: KERI MILLER MD on Jan 28 2025 6:35AM EST [id number] Normal [facility] US ABD SPLEEN -NBon 01-27-20 US ABD [...] ductal dilatation. The spleen is normal size. Complaint Manager[facility] Transcribe Date/Time: Jan 28 2025 6:33A Dictated by : KERI MILLER MD This examination was interpreted and the report reviewed and electronically signed by: KERI MILLER MD on Jan 28 2025 6:35AM EST [id number] Normal [facility] Amy 01-25-2025 TOBYN Telephone (FAMWS) KELLIE DOZIER ([id number]) 1945 F NFR Date Time Provider Department [...] message below. Agreeable to US. Transferred to surgical scheduler. 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 07/13/2024 Persistent [...] Status:Closed by TONIA STERN on 01/25/25 Normal [facility] ALKALINE PHOSPHATASE ISOENZY MES (P)on 01-23-2025 ALK PHOS BONE % 33.6 % Normal 10.7-68.3 [facility] Comment on above: Order Comment: Speci men Type: BLOOD SPECIMENOrdering Facility: [facility] Address: [address] [place] [address] Performed By: #### A LKISOP ####[facility] LABCLIA [id number] [place] [address] [place] ALK PHOS LIVER % 66.4 % Normal 26.0-86.2 [facility] Comment on above: Order Comment: Speci men Type: BLOOD SPECIMENOrdering Facility: [facility] Address: [address] [place] [address] Performed By: #### A LKISOP ####[facility] LABCLIA [id number] [place] [address] [place] BONE FRACTION 37.6 U/L Normal 12.9-52.6 [facility] Comment on above: Order Comment: Speci men Type: BLOOD SPECIMENOrdering Facility: [facility] Address: [address] [place] [address] Performed By: #### A LKISOP ####[facility] LABCLIA [id number] [place] [address] [place] INTESTINE FRACTION 0.0 U/L Normal 0.0-16.3 [facility] Comment on above: Order Comment: Speci men Type: BLOOD SPECIMENOrdering Facility: [facility] Address: [address] [place] [address] Performed By: #### A LKISOP ####[facility] LABCLIA [id number] [place] [address] [place] LIVER FRACTION 74.4 U/L High 16.0-69.3 [facility] Comment on above: Order Comment: Speci men Type: BLOOD SPECIMENOrdering Facility: [facility] Address: [address] [place] [address] Performed By: #### A LKISOP ####[facility] LABCLIA [id number] [place] [address] [facility] [place] Neutrophils/100 WBC (Bld) 0.0 % Normal 0.0-24.2 [facility] Comment on above: Order Comment: Speci men Type: BLOOD SPECIMENOrdering Facility: [facility] Address: [address] [place] [address] Performed By: #### A LKISOP ####[facility] LABCLIA [id number] [place] [address] [place] ALP SerPl-cCncon 01-23-2025 ALP [Catalytic activity/Vol] 112 U/L Normal 34-123 [facility] Comment on above: Order Comment: Jennie metz Type: BLOOD SPECIMENOrdering Facility: [facility] Address: [address] [place] [address] Performed By: #### 6 768-6 ####[facility] [id number] [place] [address] [place] HbA1c (Bld)on 01-23-2025 Average glucose Estimated from glycated hemoglobin (Bld) [Mass/Vol] 192 mg/dL Normal [facility] Comment on above: Order Comment: Jennie metz Type: BLOOD SPECIMENOrdering Facility: [facility] Address: [address] [place] [address] Result Comment: eAG: (Estimated average glucose) is a calculated value from HgbA1c and is risk control representative of the average blood glucose level in the last 2-3 month period. Performed By: #### 5 5454-3 ####[facility] [id number] [place] [address] [place] HbA1c (Bld) [Mass fraction] 8.3 % High 4.3-5.6 [facility] Comment on above: Order Comment: Jennie metz Type: BLOOD SPECIMENOrdering Facility: [facility] Address: [address] [place] [address] Result Comment: Amer ican Diabetes Association guidelines indicate that patients with HgbA1c in the range 5.7-6.4% are at increased risk for development of diabetes, and intervention by lifestyle modification may be beneficial. HgbA1c greater or equal to 6.5% is considered diagnostic of diabetes. Performed By: #### 5 5454-3 ####[facility] [id number] [place] [address] [place] CNOVon 12-13-2024 CNOV Office Visit (FAMPWS ) KELLIE DOZIER ([id number]) 1945 F NFR Date Time Provider Department 12/13/24 11:00 AM RAISA MARADIAGA During your visit today, we recorded the following information about you: Pulse Respiration Blood pressure 55/minute 16/minute 128/70 Raisa Maradiaga APRN.SALES ACCOUNT SPECIALIST 12/13/2024 5:11 PM Signed This is a [...] percutaneous left heart catheterization 06/24/2011 done at [place] Hydronephrosis, bilateral 12/16/2023 Hydroureter Lung nodule 01/2024 [...] + D (more content not included)... Normal [facility] KELLIE DOZIER ([id number]) 1945 F NFR Date Time Provider Department 12/07/24 [facility] During your visit today, we recorded [...] [D12.6] 10/17/2011 10/02/2022 Diverticulitis [K57.92] 10/24/2011 10/02/2022 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 anticoagulant [Z79.01]01/10/2017 07/13/2024 Persistent atrial fibrillation (HCC) [I48.19] 01/10/2017 Tendonitis, Achilles, left [M76.62] 03/26/2018 06/04/2018 Tendonitis, Achilles, right [M76.61] 03/26/2018 06/04/2018 Nonrheumatic mitral valve regurgitation [I34.0] 06/17/2021 History of colon polyps [Z86.0 (more content not included)... Normal [facility] CNOVon 11-29-2024 CNOV Office Visit (PULMWS ) KELLIE DOZIER ([id number]) 1945 F NFR Date Time Provider Department 11/29/24 11:00 AM LEONELA BEAR PULMWS During your visit today, we recorded the following information about you: Pulse Respiration Blood pressure Weight 75/minute 17/minute 108/62 66.7 kg Leonela Bear MD 11/29/2024 12:00 PM Signed . Respiratory [place] Note Patient name: Kellie Dozier PCP: Santo [...] DATE OF EXAM: Aug 09 2024 10:20AM [facility] 0541 - CT CHEST WO [...] percutaneous left heart [facility] 06[facility]24[facility]2011 [facility], [facility] 12/[facility]2023 Hydroureter Lung nodule 01/2024 Malignant [...] (dizziness). brimonidine (more content not included)... Normal [facility] 11-21-2024 [facility] Telephone (FAMWS) KELLIE DOZIER ([id number]) 1945 F NFR Date Time Provider Department [...] Order(s):[] ALBUMIN/CREATININE RATIO, URINE [SQUACR] Order #: [id number] FUTURE [] ALK PHOS ISOENZYM BL [SQALKISO] Order #: [id number] FUTURE cyanocobalamin (VITAMIN B-12) 1,000 mcg tabTake [...] 05/17/2007 04 (more content not included)... Normal [facility] ALBUMIN/CREATININE RATIO, UR INEon 11-19-2024 Albumin DL <= 20 mg/L (U) [Mass/Vol] 44.2 mg/L Normal [facility] Comment on above: Order Comment: Speci men Type: URINE SPECIMENOrdering Facility: [facility] Address: [address] [place] [address] Performed By: #### U ACR ####[facility] LABCLIA [id number] [place] [address] [place] Albumin/Creatinine (U) [Mass ratio] 132 mg/g High <30 [facility] Comment on above: Order Comment: Speci men Type: URINE SPECIMENOrdering Facility: [facility] Address: [address] [place] [address] Result Comment: Adul t Male and Female Nephrotic Criteria: <30 mg/g is considered normal to mildly increased 30-300 mg/g is considered moderately increased >300 mg/g is considered severely increased KDIGO. (2013). KDIGO 2012 Clinical Practice Guideline for the Evaluation and Management of Chronic Kidney Disease. Official Journal of the International Society of Nephrology, 3(1), 1-150. Performed By: #### U ACR ####[facility] LABCLIA [id number] [place] [address] [place] Creatinine (U) [Mass/Vol] 33.6 mg/dL Normal 20.0-300.0 [facility] Comment on above: Order Comment: Speci men Type: URINE SPECIMENOrdering Facility: [facility] Address: [address] [place] [address] Performed By: #### U ACR ####[facility] LABCLIA [id number] [place] [address] [place] CBC W Auto Differential pane l (Bld)on 11-19-2024 Basophils (Bld) [#/Vol] 0.09 10*3/uL Normal <0.11 [facility] Comment on above: Order Comment: Speci men Type: BLOOD SPECIMENOrdering Facility: [facility] Address: [address] [place] [address] Performed By: #### 5 7021-8 ####[facility] LABCLIA [id number] [place] [address] [place] Basophils/100 WBC (Bld) 1.1 % Normal [facility] Comment on above: Order Comment: Speci men Type: BLOOD SPECIMENOrdering Facility: [facility] Address: [address] [place] [address] Performed By: #### 5 7021-8 ####[facility] LABCLIA [id number] [place] [address] [place] Differential cell count method Nom (Bld) Auto Normal [facility] Comment on above: Order Comment: Speci men Type: BLOOD SPECIMENOrdering Facility: [facility] Address: [address] [place] [address] Performed By: #### 5 7021-8 ####[facility] LABCLIA [id number] [place] [address] [place] Eosinophils (Bld) [#/Vol] 0.16 10*3/uL Normal <0.46 [facility] Comment on above: Order Comment: Speci men Type: BLOOD SPECIMENOrdering Facility: [facility] Address: [address] [place] [address] Performed By: #### 5 7021-8 ####[facility] LABCLIA [id number] [place] [address] [place] Eosinophils/100 WBC (Bld) 2.0 % Normal [facility] Comment on above: Order Comment: Speci men Type: BLOOD SPECIMENOrdering Facility: [facility] Address: [address] [place] [address] Performed By: #### 5 7021-8 ####[facility] LABCLIA [id number] [place] [address] [place] Erythrocyte distribution width (RBC) [Ratio] 13.9 % Normal 11.5-15.0 [facility] Comment on above: Order Comment: Speci men Type: BLOOD SPECIMENOrdering Facility: [facility] Address: [address] [place] [address] Performed By: #### 5 7021-8 ####[facility] LABCLIA [id number] [place] [address] [place] Hematocrit (Bld) [Volume fraction] 46.1 % High 36.0-46.0 [facility] Comment on above: Order Comment: Speci men Type: BLOOD SPECIMENOrdering Facility: [facility] Address: [address] [place] [address] Performed By: #### 5 7021-8 ####[facility] LABCLIA [id number] [place] [address] [place] Hemoglobin (Bld) [Mass/Vol] 14.6 g/dL Normal 11.5-15.5 [facility] Comment on above: Order Comment: Speci men Type: BLOOD SPECIMENOrdering Facility: [facility] Address: [address] [place] [address] Performed By: #### 5 7021-8 ####[facility] LABCLIA [id number] [place] [address] [place] Immature granulocytes (Bld) [#/Vol] 0.04 10*3/uL Normal <0.10 [facility] Comment on above: Order Comment: Speci men Type: BLOOD SPECIMENOrdering Facility: [facility] Address: [address] [place] [address] Performed By: #### 5 7021-8 ####[facility] LABCLIA [id number] [place] [address] [place] Immature granulocytes/100 WBC (Bld) 0.5 % Normal [facility] Comment on above: Order Comment: Speci men Type: BLOOD SPECIMENOrdering Facility: [facility] Address: [address] [place] [address] Performed By: #### 5 7021-8 ####[facility] LABCLIA [id number] [place] [address] [place] Lymphocytes (Bld) [#/Vol] 1.86 10*3/uL Normal 1.00-4.00 [facility] Comment on above: Order Comment: Speci men Type: BLOOD SPECIMENOrdering Facility: [facility] Address: [address] [place] [address] Performed By: #### 5 7021-8 ####[facility] LABCLIA [id number] [place] [address] [place] Lymphocytes/100 WBC (Bld) 23.4 % Normal [facility] Comment on above: Order Comment: Speci men Type: BLOOD SPECIMENOrdering Facility: [facility] Address: [address] [place] [address] Performed By: #### 5 7021-8 ####[facility] LABCLIA [id number] [place] [address] [place] MCH (RBC) [Entitic mass] 29.9 pg Normal 26.0-34.0 [facility] Comment on above: Order Comment: Speci men Type: BLOOD SPECIMENOrdering Facility: [facility] Address: [address] [place] [address] Performed By: #### 5 7021-8 ####[facility] LABIA [id number] [place] [address] [place] MCHC (RBC) [Mass/Vol] 31.7 g/dL Normal 30.5-36.0 [facility] Comment on above: Order Comment: Speci men Type: BLOOD SPECIMENOrdering Facility: [facility] Address: [address] [place] [address] Performed By: #### 5 7021-8 ####[facility] LABIA [id number] [place] [address] [place] MCV (RBC) [Entitic vol] 94.5 fL Normal 80.0-100.0 [facility] Comment on above: Order Comment: Speci men Type: BLOOD SPECIMENOrdering Facility: [facility] Address: [address] [place] [address] Performed By: #### 5 7021-8 ####[facility] LABIA [id number] [place] [address] [place] Monocytes (Bld) [#/Vol] 0.77 10*3/uL Normal <0.87 [facility] Comment on above: Order Comment: Speci men Type: BLOOD SPECIMENOrdering Facility: [facility] Address: [address] [place] [address] Performed By: #### 5 7021-8 ####[facility] LABCLIA [id number] [place] [address] [place] Monocytes/100 WBC (Bld) 9.7 % Normal [facility] Comment on above: Order Comment: Speci men Type: BLOOD SPECIMENOrdering Facility: [facility] Address: [address] [place] [address] Performed By: #### 5 7021-8 ####[facility] LABCLIA [id number] [place] [address] [place] Neutrophils (Bld) [#/Vol] 5.02 10*3/uL Normal 1.45-7.50 [facility] Comment on above: Order Comment: Speci men Type: BLOOD SPECIMENOrdering Facility: [facility] Address: [address] [place] [address] Performed By: #### 5 7021-8 ####[facility] LABCLIA [id number] [place] [address] [place] Neutrophils/100 WBC (Bld) 63.3 % Normal [facility] Comment on above: Order Comment: Speci men Type: BLOOD SPECIMENOrdering Facility: [facility] Address: [address] [place] [address] Performed By: #### 5 7021-8 ####[facility] LABCLIA [id number] [place] [address] [place] Nucleated RBC (Bld) [#/Vol] 10*3/uL Normal <0.01 [facility] Comment on above: Order Comment: Speci men Type: BLOOD SPECIMENOrdering Facility: [facility] Address: [address] [place] [address] Performed By: #### 5 7021-8 ####[facility] LABCLIA [id number] [place] [address] [place] Nucleated RBC/100 WBC (Bld) [Ratio] 0.0 /100 WBC Normal [facility] Comment on above: Order Comment: Speci men Type: BLOOD SPECIMENOrdering Facility: [facility] Address: [address] [place] [address] Performed By: #### 5 7021-8 ####[facility] LABCLIA [id number] [place] [address] [place] Platelet mean volume (Bld) [Entitic vol] 10.4 fL Normal 9.0-12.7 [facility] Comment on above: Order Comment: Speci men Type: BLOOD SPECIMENOrdering Facility: [facility] Address: [address] [place] [address] Performed By: #### 5 7021-8 ####[facility] LABCLIA [id number] [place] [address] [place] Platelets (Bld) [#/Vol] 246 10*3/uL Normal 150-400 [facility] Comment on above: Order Comment: Speci men Type: BLOOD SPECIMENOrdering Facility: [facility] Address: [address] [place] [address] Performed By: #### 5 7021-8 ####[facility] LABIA [id number] [place] [address] [place] RBC (Bld) [#/Vol] 4.88 10*6/uL Normal 3.90-5.20 [facility] Comment on above: Order Comment: Speci men Type: BLOOD SPECIMENOrdering Facility: [facility] Address: [address] [place] [address] Performed By: #### 5 7021-8 ####[facility] LABIA [id number] [place] [address] [place] WBC (Bld) [#/Vol] 7.94 10*3/uL Normal 3.70-11.00 [facility] Comment on above: Order Comment: Speci men Type: BLOOD SPECIMENOrdering Facility: [facility] Address: [address] [place] [address] Performed By: #### 5 7021-8 ####[facility] LABIA [id number] [place] [address] [place] CNOVon 11-19-2024 CNOV Office Visit (FAMPWS ) KELLIE DOZIER ([id number]) 1945 F NFR Date Time Provider Department 11/19/24 9:20 AM [facility] During your visit today, we recorded the following information about you: Pulse Blood pressure Weight Height 67/minute 170/84 66.7 kg 1.626 m Santo Love MD 11/19/2024 10:05 AM Signed Patient presents with: Follow Up HPI: Patient presents today for office visit for follow up. Follows with [facility]. Recently started on Losartan 50 [...] follow up of renal cyst. Still sees [facility]. Mammogram was normal. MEDICATIONS: Current [...] percutaneous left heart catheterization 06/24/2011 done at [place] Hydronephrosis, bilateral 12/16/2023 Hydroureter Lung nodule 01/2024 [...] PAST SURGIC (more content not included)... Normal [facility] Comprehensive metabolic 2000 panelon 11-19-2024 Albumin [Mass/Vol] 4.3 g/dL Normal 3.9-4.9 [facility] Comment on above: Order Comment: Speci men Type: BLOOD SPECIMENOrdering Facility: [facility] Address: [address] [place] [address] Performed By: #### 2 4323-8, 81687-3, 2132-07 ####[facility] LABIA [id number] [place] [address] [place] ALP [Catalytic activity/Vol] 126 U/L High 34-123 [facility] Comment on above: Order Comment: Speci men Type: BLOOD SPECIMENOrdering Facility: [facility] Address: [address] [place] [address] Performed By: #### 2 4323-8, 55859-3, 2132-07 ####[facility] LABIA [id number] [place] [address] [place] ALT [Catalytic activity/Vol] 20 U/L Normal 7-38 [facility] Comment on above: Order Comment: Speci men Type: BLOOD SPECIMENOrdering Facility: [facility] Address: [address] [place] [address] Performed By: #### 2 4323-8, 09673-5, 2132-07 ####[facility] LABCLIA [id number] [place] [address] [place] Anion gap [Moles/Vol] 11 mmol/L Normal 8-15 [facility] Comment on above: Order Comment: Speci men Type: BLOOD SPECIMENOrdering Facility: [facility] Address: [address] [place] [address] Performed By: #### 2 4323-8, 37687-3, 2132-07 ####[facility] LABCLIA [id number] [place] [address] [place] AST [Catalytic activity/Vol] 30 U/L Normal 13-35 [facility] Comment on above: Order Comment: Speci men Type: BLOOD SPECIMENOrdering Facility: [facility] Address: [address] [place] [address] Performed By: #### 2 4323-8, 05738-2, 2132-07 ####[facility] LABIA [id number] [place] [address] [place] Bilirubin [Mass/Vol] 0.5 mg/dL Normal 0.2-1.3 [facility] Comment on above: Order Comment: Speci men Type: BLOOD SPECIMENOrdering Facility: [facility] Address: [address] [place] [address] Performed By: #### 2 4323-8, 67914-5, 2132-07 ####[facility] LABCLIA [id number] [place] [address] [place] Calcium [Mass/Vol] 9.8 mg/dL Normal 8.5-10.2 [facility] Comment on above: Order Comment: Speci men Type: BLOOD SPECIMENOrdering Facility: [facility] Address: [address] [place] [address] Performed By: #### 2 4323-8, 13178-3, 2132-07 ####[facility] LABCLIA [id number] [address] [address] [place] Chloride [Moles/Vol] 106 mmol/L Normal 98-107 [facility] Comment on above: Order Comment: Speci men Type: BLOOD SPECIMENOrdering Facility: [facility] Address: [address] [place] [address] Performed By: #### 2 4323-8, 03969-7, 2132-07 ####[facility] LABIA [id number] [place] [address] [place] CO2 [Moles/Vol] 26 mmol/L Normal 22-30 [facility] Comment on above: Order Comment: Speci men Type: BLOOD SPECIMENOrdering Facility: [facility] Address: [address] [place] [address] Performed By: #### 2 4323-8, 22934-1, 2132-07 ####[facility] LABIA [id number] [place] [address] [place] Creatinine [Mass/Vol] 0.67 mg/dL Normal 0.58-0.96 [facility] Comment on above: Order Comment: Speci men Type: BLOOD SPECIMENOrdering Facility: [facility] Address: [address] [place] [address] Performed By: #### 2 4323-8, 60664-6, 2132-07 ####[facility] LABIA [id number] [address] [address] [place] Creatinine and Glomerular filtration rate.predicted panel (S/P/Bld) 88 mL/min/1.73m??? Normal >=60 [facility] Comment on above: Order Comment: Speci men Type: BLOOD SPECIMENOrdering Facility: [facility] Address: [address] [place] [address] Result Comment: Marsha mated Glomerular Filtration Rate [...] actual GFR. Performed By: #### 2 4323-8, 42935-7, 2132-07 ####[facility] LABCLIA [id number] [address] [address] [place] Glucose [Mass/Vol] 76 mg/dL Normal 74-99 [facility] Comment on above: Order Comment: Jennie metz Type: BLOOD SPECIMENOrdering Facility: [facility] Address: [address] [place] [address] Result Comment: The [place] Diabetes Association (ADA) provides guidance for cutoff [...] Standards of Medical Care in Diabetes 2016, [place] Diabetes Association. Diabetes Care. 2016.39(Suppl 1). Performed By: #### 2 4323-8, 80682-2, 2132-07 ####[facility] LABCLIA [id number] [address] [address] [place] Potassium [Moles/Vol] 4.1 mmol/L Normal 3.7-5.1 [facility] Comment on above: Order Comment: Jennie metz Type: BLOOD SPECIMENOrdering Facility: [facility] Address: [address] [place] [address] Performed By: #### 2 4323-8, 82164-2, 2132-07 ####[facility] LABIA [id number] [address] [address] [place] Protein [Mass/Vol] 7.2 g/dL Normal 6.3-8.0 [facility] Comment on above: Order Comment: Speci men Type: BLOOD SPECIMENOrdering Facility: [facility] Address: [address] [place] [address] Performed By: #### 2 4323-8, 08294-8, 2132-07 ####[facility] LABIA [id number] [place] [address] [place] Sodium [Moles/Vol] 143 mmol/L Normal 136-144 [facility] Comment on above: Order Comment: Speci men Type: BLOOD SPECIMENOrdering Facility: [facility] Address: [address] [place] [address] Performed By: #### 2 4323-8, 19132-6, 2132-07 ####[facility] LABIA [id number] [place] [address] [place] Urea nitrogen [Mass/Vol] 16 mg/dL Normal 7-21 [facility] Comment on above: Order Comment: Speci men Type: BLOOD SPECIMENOrdering Facility: [facility] Address: [address] [place] [address] Performed By: #### 2 4323-8, 56413-8, 2132-07 ####[facility] LABIA [id number] [place] [id number] [place] HbA1c (Bld)on 11-19-2024 Average glucose Estimated from glycated hemoglobin (Bld) [Mass/Vol] 154 mg/dL Normal [facility] Comment on above: Order Comment: Speci men Type: BLOOD SPECIMENOrdering Facility: [facility] Address: [address] [place] [address] Result Comment: eAG: (Estimated average glucose) is a calculated value from HgbA1c and is risk control representative of the average blood glucose level in the last 2-3 month period. Performed By: #### 5 5454-3 ####[facility] LABCLIA [id number] [place] [address] [place] HbA1c (Bld) [Mass fraction] 7.0 % High 4.3-5.6 [facility] Comment on above: Order Comment: Speci men Type: BLOOD SPECIMENOrdering Facility: [facility] Address: [address] [place] [address] Result Comment: Amer [place] Diabetes Association guidelines indicate that patients with HgbA1c in the range 5.7-6.4% are at increased risk for development of diabetes, and intervention by lifestyle modification may be beneficial. HgbA1c greater or equal to 6.5% is considered diagnostic of diabetes. Performed By: #### 5 5454-3 ####[facility] LABCLIA [id number] [place] [address] [place] Lipid 1996 panelon 5 Cholesterol [Mass/Vol] 156 mg/dL Normal <200 [facility] Comment on above: Order Comment: Speci men Type: BLOOD SPECIMENOrdering Facility: [facility] Address: [address] [place] [address] Result Comment: <200 mg/dL, Desirable 200-239 mg/dL, Borderline high >239 mg/dL, High Performed By: #### 2 4323-8, 56717-0, 2132-07 ####[facility] LABCLIA [id number] [address] [place] Cholesterol in HDL [Mass/Vol] 61 mg/dL Normal >39 [facility] Comment on above: Order Comment: Speci men Type: BLOOD SPECIMENOrdering Facility: [facility] Address: [address] [place] [address] Result Comment: 40-5 9 mg/dL, Acceptable >59 mg/dL, High: Negative risk factor for coronary heart disease <40 mg/dL, Low: Positive risk factor for coronary heart disease Performed By: #### 2 4323-8, 98660-9, 2132-07 ####[facility] LABCLIA [id number] [address] [address] [place] Cholesterol in LDL [Mass/Vol] 77 mg/dL Normal <100 [facility] Comment on above: Order Comment: Speci men Type: BLOOD SPECIMENOrdering Facility: [facility] Address: [address] [place] [address] Result Comment: <100 mg/dL, Optimal 100-129 mg/dL, Near optimal/above optimal 130-159 mg/dL, Borderline high 160-189 mg/dL, High >189 mg/dL, Very high Secondary prevention optimal LDL Cholesterol levels are recommended to be < 70 mg/dL Performed By: #### 2 4323-8, 88897-2, 2132-07 ####[facility] LABCLIA [id number] [place] [address] [place] Cholesterol in LDL/Cholesterol in HDL [Mass ratio] 1.26 {ratio} Normal <2.54 [facility] Comment on above: Order Comment: Speci men Type: BLOOD SPECIMENOrdering Facility: [facility] Address: [address] [place] [address] Result Comment: Porfirio heller: 1. National Cholesterol Education Program ATP III Guideline At-A-Glance Quick Desk Reference: National Heart, Lung, and Blood [place]. National Institutes of Health. 2001: NIH Publication No. 01-3305. 2. An International Atherosclerosis Society position paper: global recommendations for the management of dyslipidemia: executive summary, Atherosclerosis. 2014: 232(2):410-413. Performed By: #### 2 4323-8, 99803-2, 2132-07 ####[facility] LABIA [id number] [place] [address] [place] Cholesterol in VLDL [Mass/Vol] 18 mg/dL Normal <30 [facility] Comment on above: Order Comment: Speci men Type: BLOOD SPECIMENOrdering Facility: [facility] Address: [address] [place] [address] Performed By: #### 2 4323-8, , 2132-07 ####[facility] LABCLIA [id number] [address] [address] [place] Cholesterol non HDL [Mass/Vol] 95 mg/dL Normal <130 [facility] Comment on above: Order Comment: Speci men Type: BLOOD SPECIMENOrdering Facility: [facility] Address: [address] [place] [address] Result Comment: <130 mg/dL, Optimal 130-159 mg/dL, Near optimal/above optimal 160-189 mg/dL, Borderline high 190-219 mg/dL, High >219 mg/dL, Very high Secondary prevention optimal non HDL Cholesterol levels are recommended to be <100 mg/dL Performed By: #### 2 4323-8, , 2132-07 ####[facility] LABCLIA [id number] [address] [address] [place] Cholesterol.total/Cho lesterol in HDL [Mass ratio] 2.56 {ratio} Normal <5.10 [facility] Comment on above: Order Comment: Speci men Type: BLOOD SPECIMENOrdering Facility: [facility] Address: [address] [place] [address] Performed By: #### 2 4323-8, , 2132-07 ####[facility] LABCLIA [id number] [address] [address] [place] FASTING TIME 12 hrs Normal [facility] Comment on above: Order Comment: Speci men Type: BLOOD SPECIMENOrdering Facility: [facility] Address: [address] [place] [id number] Performed By: #### 2 4323-8, , 2132-07 ####[facility] LABCLIA [id number] [place] [id number] [place] Triglyceride [Mass/Vol] 92 mg/dL Normal <150 [facility] Comment on above: Order Comment: Speci men Type: BLOOD SPECIMENOrdering Facility: [facility] Address: [address] [place] [address] Result Comment: <150 mg/dL, Normal 150-199 mg/dL, Borderline high 200-499 mg/dL, High >499 mg/dL, Very high Performed By: #### 2 4323-8, 79520-2, 2132-07 ####[facility] LABCLIA [id number] [address] [address] [facility] Vit B12 [facility] 11-19- 025 Cobalamin (Vitamin B12) [Mass/Vol] pg/mL High 232-1245 [facility] Comment on above: Order Comment: Speci men Type: BLOOD SPECIMENOrdering Facility: [facility] Address: [address] [facility] [place] [id number] Performed By: #### 2 4323-8, 15478-5, 2132-07 ####[facility] LABCLIA [id number] [place] [id number] [place] Cardiology Visit Reporton Cardiology Visit Report [facility] [address] [place] [address] OFFICE VISIT Date of Service: 10/04/24 MR#: [id number] Acct: [id number] Name: KELLIE DOZIER MARIETTA Rep #: [id number] : 1945 Provider: MARIA LUISA montilla Age/Sex: 79/F Location: 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: No Is patient in pain?: No [...] past year?: Yes (Pulled down by dog) [facility] Medical History Anemia History of diverticulitis Non-smoker History of stress test Cardiology follow-up encounter On apixaban therapy Old myocardial infarction Liver mass 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 tachycardia Pure hypercholesterolemia Malignant neoplasm of right breast GERD (gastroesophageal reflux disease) Paroxysmal atrial fibrillation Type 2 diabetes mellitus Essential hypertension Presence of stent in coronary artery ( 05/23/09) Atherosclerotic heart disease of [place] coronary artery without angina pectoris Surgical History [...] coffee Numb (more content not included)... Normal [facility] Echo Completeon 07-13-2024 Echo Complete [facility] [place] [address] Echo Complete 07/13/24 1004 MR#: [id number] Acct: [id number] Name: KELLIE DOZIER MARIETTA Rep #: [id number] : 1945 79 From: Rajeev Kelley MD Attending Dr: Dr. Rajeev Kelley MD Status: NILESH LEDESMA Ordering Dr: Rajeev Kelley MD Date: 07/13/24 Location: [facility] Sex: F C Admitted: Reason For Study: [...] Date Dictated: 07/13/24 1004 Date Transcribed: 07/13/242110 Complaint Manager: Signed Normal [facility] 12 Lead EKG performed by [facility] on 04-07-2024 12 Lead EKG performed by [address] [address] 12 Lead EKG performed by [facility] 04/07/24 1118 MR#: [id number] Acct: [id number] Name: KELLIE DOZIER Rep #: [id number] : 1945 79 From: Rajeev Kelley MD Attending Dr: Dr. Rajeev Kelley MD Status: DEP A MB Ordering Dr: Rajeev Kelley MD Date: 04/07/24 Location: [facility] Sex: F C Admitted: BMS/12 Lead EKG performed by [facility] ECG Report Interpretation Sin us Rhythm -First degree A-V block - occasional PAC Debi = 274 # PACs = 1.-Anterior infarct -age undetermined. ABNORMAL Electronically signed on 04/13/2024 at 10:17 by Rajeev Kelley [employer] Version 8610 04/13/24 1021 Date Rajeev Kelley MD CC: Dr. Santo Love MD Date Dictated: 04/07/241117 Date Transcribed: 04/07/241117 Complaint Manager: [place] Signed Normal [facility] Cardiology Visit Reporton Cardiology Visit Report [facility] [address] [place] [address] OFFICE VISIT Date of Service: 04/07/24 MR#: [id number] Acct: [id number] Name: KELLIE DOZIER Rep #: [id number] : 1945 Provider: Dr. Rajeev Kelley MD Age/Sex: 79/F Location: 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 Normal [facility] Bedside Glucoseon 02-04-2024 FINGERSTICK GLU 109 mg/dL High 74-106 [facility] Comment on above: Result Comment: SYDNEY VAILENT OF PATIENT CARE PER NURSING PROTOCOL Performed By: #### L 501.080 #### [facility] Laboratory [address] [facility] [facility] [place], [address] EGD Reporton 02-04-2024 [facility] Report [facility] [address] [place] [address] EGD Report MR#: [id number] Acct: [id number] Name: KELLIE DOZIER MARIETTA Rep #: [id number] : 1945 78 From: Cullen Friend DO PCP: Dr. Santo Love MD Status:REG KSC Patient Name: Kellie Dozier Procedure Date: 02/04/2024 [...] pathology results. Procedure Code(s): --- Professional --- 56411, Esophagogastroduodenoscopy, flexible, transoral; with biopsy, single or multiple CPT copyright 2021 [employer]. All rights reserved. The codes documented in this report are preliminary and upon reconciliation clerk review may be revised to meet current compliance requirements. Cullen Ferrer DO 02/04/2024 7:06:07 AM This report has been signed electronically. Number of Addenda: 0 Note Initiated On: 02/04/2024 6:21 AM 02/04/24705 Date Cullen Ferrer DO Cosigner Signature: Date (if indicated) CC: Dr. Santo Love MD; Cullen Ferrer DO Date Dictated: 02/04/24620 Date Transcribed: Complaint Manager: MIGUELINA Signed Normal [facility] H Pylori (initial)on 024 H Pylori (initial) Patient Age/Sex Loca tion Account Attending Physician KELLIE DOZIER 78/F EN [id number] Cullen Ferrer DO Specimen: [id number] Received: 04/ Status: SOUT Silvana Num: [id number] Spec Type: IMMUNO Subm Dr: Cullen Ferrer DO PHYSICIAN INSTITUTION [place] [address] SPECIMEN INFORMATION: Tissue Source: A - Gastric ulcer biopsy Clinical Info: Gastrointestinal bleeding, Gastric ulcer Specimen Number: [id number] CPT code: 71515 METHODOLOGY: Deparaffinized sections of prefer/formalin-fixed tissue or [...] developed and their performance characteristics determined by [facility] Laboratory. They may not have [...] Usama Reilly MD 02/05/24 1306 ----- Normal [facility] Comment on above: Performed By: #### P H.PYLORI ####[address], [id number] Special Stain Group IIon Special Stain Group II Patient Age/Sex Location Account Attending Physician KELLIE DOZIER 78/F EN [id number] Cullen Ferrer DO Specimen: [id number] Received: 02/04/24 Status: ALBARO Silvana Num: [id number] Spec Type: Gastric Bx Subm Dr: Cullen [...] (goblet cell metaplasia) not identified. See comment. [facility] 02/05/24 COMMENT A. The results of immunohistochemistry for Helicobacter pylori will be reported separately ([id number]). B. Alcian blue/PAS stain with matched control [...] specimen is totally submitted in one cassette. [facility] 02/04/24 TC:3 CPT: 49064,89297h8 ----- Patient Age/Sex Location Account Attending Physician ----- KELLIE DOZIER 78/F EN [id number] Cullen Ferrer, DO ----- Signed (signature on file) Dr. Usama Reilly MD 02/05/24 1220 ----- Normal [facility] Comment on above: Performed By: #### L 501.080 #### [facility] [place], [address] Thin prep Papanicolaou smear with manual screeningOrdered By: Cullen Ferrer on 02-04-2024 Thin prep Papanicolaou smear with manual screening 109 mg/dL 74-106 [facility] Comment on above: MANAGEMENT OF PATIEN T CARE PER NURSING PROTOCOL UA DIP, URINE (POC)on 2023 BILIRUBIN UA (POCT) Negative Negative [facility] CLARITY UA (POCT) Cloudy [facility] COLOR UA (POCT) Yellow [facility] GLUCOSE UA (POCT) 100 mg/dL Abnormal Negative mg/dL [facility] Hemoglobin Ql (U) Small Abnormal Negative [facility] KETONE UA (POCT) Negative Negative mg/dL [facility] LEUKOCYTES UA (POCT) Large [facility]normal [facility] NITR[facility] (POCT) Negative Negative [facility] PH UA (POCT) 6.0 4.5 - 8.0 [facility] Protein Ql (U) Negative Negative mg/dL [facility] SPECIFIC GRAVITY UA (POCT) 1.015 1.005 - 1.030 [facility] UROBILINOGEN UA (POCT) 0.2 E.U./dL Normal E.U./dL [facility] Basophil percentageOrdered B y: Cullen Ferrer on 01-18-2024 Hemoglobin (Bld) [Mass/Vol] 10.5 g/dL 12.0-15.0 [facility] Gastroenterology Visit Repor ton 01-18-2024 Gastroenterology Visit Report [facility]astroenterology [address] [place] [address] OFFICE VISIT Date of Service: 01/18/24 MR#: [id number] Acct: [id number] Name: YELENAKELLIE ANN Rep #: [id number] : 1945 Provider: Cullen Ferrer DO Age/Sex: 78/F Location: [facility] Status: Signed Intake Vital Signs 12/21/23 14:06 Height 5 ft 4 in Intake Visit Reasons: Hospital FU Allergies alendronate sodium [From Fosamax] Adverse Reaction (Severe, Verified 12/15/23 05:40) myalgias amoxicillin [Amoxicillin] Adverse Reaction (Verified 12/15/23 05:40) Nausea/Vom/Diarrhea metformin Adverse Reaction (Verified 12/15/23 05:40) Nausea/Vom/Diarrhea shellfish derived Adverse Reaction (Verified 12/15/23 05:40) Nausea/Vom/Diarrhea [facility] Medical History Atherosclerotic heart disease of [place] coronary artery without angina pectoris Essential hypertension [...] who presents to the office today for *[facility] hospitalization .07.26-12.13.23 for management of UGIB with anemia with use of Eliquis for A- fib. ? CT abd/pel IV only 12.11.23 fluid filled small bowel loops, ?enteritis; focal stranding of RLQ from cecum. ? EGD 12.12.23 oozing gastric ulcer, epinephrine/hemospray x5, heater probe; bleeding duodenal AVM. No specimens [facility] hospitalization 12.15.23-12.22.23 for management of GIB [...] Appearance: average body habitus and well nourished [facility] Head: normal to inspection Ears: hearing [...] no hepatosplenom (more content not included)... Normal [facility] HH, Hemoglobin AND Hematocri ton 01-18-2024 Hematocrit (Bld) [Volume fraction] 34.1 % Low 37-47 [facility] Comment on above: Performed By: #### L 501.080 #### [facility] Laboratory [address] [place], [address] Hemoglobin (Bld) [Mass/Vol] 10.5 g/dL Low 12.0-15.0 [facility] Comment on above: Performed By: #### L 501.080 #### [facility] [address] [place], [address] Hematocrit Auto (Bld) [Volum e fraction]Ordered By: Cullen Ferrer on 01-18-2024 Hematocrit (Bld) [Volume fraction] 34.1 % 37-47 [facility] Basic metabolic 2000 panelon 01-06-2024 Anion gap [Moles/Vol] 13 mmol/L 9 - 18 mmol/L [facility] Calcium [Mass/Vol] 9.5 mg/dL 8.5 - 10. 2 mg/dL [facility] Chloride [Moles/Vol] 108 mmol/L High 97 - 10 5 mmol/L [facility] CO2 [Moles/Vol] 25 mmol/L 22 - 30 mmol/L [facility] Creatinine [Mass/Vol] 0.72 mg/dL 0.58 - 0.96 mg/dL [facility] Estimated Glomerular Filtration Rate 85 mL/min/1.73m >=60 mL/min/1.7 3m [facility] Glucose [Mass/Vol] 94 mg/dL 74 - 99 mg/dL [facility] Potassium [Moles/Vol] 4.2 mmol/L 3.7 - 5.1 mmol/L [facility] Sodium [Moles/Vol] 146 mmol/L High 136 - 144 mmol/L [facility] Urea nitrogen [Mass/Vol] 11 mg/dL 7 - 21 mg/dL [facility] CBC W Auto Differential pane l (Bld)on 01-06-2024 Basophils (Bld) [#/Vol] 0.06 10*3/uL <0.11 k/uL [facility] Basophils/100 WBC (Bld) 0.7 % [facility] Differential cell count method Nom (Bld) Auto [facility] Eosinophils (Bld) [#/Vol] 0.26 10*3/uL <0.46 k/uL [facility] Eosinophils/100 WBC (Bld) 3.1 % [facility] Erythrocyte distribution width (RBC) [Ratio] 15.5 % High 11.5 - 15.0 % [facility] Hematocrit (Bld) [Volume fraction] 33.6 % Low 36.0 - 46.0 % [facility] Hemoglobin (Bld) [Mass/Vol] 10.5 g/dL Low 11.5 - 15.5 g/dL [facility] Immature granulocytes (Bld) [#/Vol] 0.08 10*3/uL <0.10 k/uL [facility] Immature granulocytes/100 WBC (Bld) 1.0 % [facility] Lymphocytes (Bld) [#/Vol] 1.61 10*3/uL 1.00 - 4.00 k/uL [facility] Lymphocytes/100 WBC (Bld) 19.5 % [facility] MCH (RBC) [Entitic mass] 28.8 pg 26.0 - 34.0 pg [facility] MCHC (RBC) [Mass/Vol] 31.3 g/dL 30.5 - 36.0 g/dL [facility] MCV (RBC) [Entitic vol] 92.3 fL 80.0 - 100.0 fL [facility] Monocytes (Bld) [#/Vol] 0.83 10*3/uL <0.87 k/uL [facility] Monocytes/100 WBC (Bld) 10.0 % [facility] Neutrophils (Bld) [#/Vol] 5.43 10*3/uL 1.45 - 7.50 k/uL [facility] Neutrophils/100 WBC (Bld) 65.7 % [facility] Nucleated RBC (Bld) [#/Vol] <0.01 k/uL [facility] Nucleated RBC/100 WBC (Bld) [Ratio] 0.0 /100 WBC [facility] Platelet mean volume (Bld) [Entitic vol] 10.0 fL 9.0 - 12.7 fL [facility] Platelets (Bld) [#/Vol] 310 10*3/uL 150 - 400 k/uL [facility] RBC (Bld) [#/Vol] 3.64 10*6/uL Low 3.90 - 5.20 m/uL [facility] WBC (Bld) [#/Vol] 8.27 10*3/uL 3.70 - 11.00 k/uL [facility] Bedside Glucoseon 12-22-2023 FINGERSTICK GLU 208 mg/dL High 74-106 [facility] Comment on above: Result Comment: SYDNEY GEMENT OF PATIENT CARE PER NURSING PROTOCOL Performed By: #### L 501.080 ####[facility] [address] [place], [address] FINGERSTICK GLU 245 mg/dL High 74-106 [facility] Comment on above: Result Comment: SYDNEY GEMENT OF PATIENT CARE PER NURSING PROTOCOL Performed By: #### L 501.080 #### [facility] Laboratory [address] [place], [address] FINGERSTICK GLU 77 mg/dL Normal 74-106 [facility] Comment on above: Result Comment: SYDNEY GEMENT OF PATIENT CARE PER NURSING PROTOCOL Performed By: #### L 501.080 #### [facility] [address] [place], [address] Thin prep Papanicolaou smear with manual screeningOrdered By: Gomez Johansen on 12-22-2023 Thin prep Papanicolaou smear with manual screening 245 mg/dL 74-106 [facility] Comment on above: MANAGEMENT OF PATIEN T CARE PER NURSING PROTOCOL Absolute lymphocyte countOrd ered By: Gomez Johansen on 12-21-2023 Lymphocytes Auto (Unsp spec) [#/Vol] 1.19 10*3/uL 0.83-4.51 [facility] Automated lymphocyte count a s percentage of total leukocytesOrdered By: Gomez Johansen on 12-21-2023 Lymphocytes/100 WBC Auto (Unsp spec) 13.5 % - [facility] Basic Metabolic Profile (BMP )on 12-21-2023 BUN/CRE 16.0 RATIO Normal - [facility] Comment on above: Performed By: #### L 100.0100, L500.4050 #### [facility] [address] [place], [address] CA,Total 8.3 mg/dL Low 8.5-10.1 [facility] Comment on above: Performed By: #### L 100.0100, L500.4050 #### [facility] [address] [place], [address] Chloride [Moles/Vol] 111 mmol/L High 98-107 [facility] Comment on above: Performed By: #### L 100.0100, L500.4050 #### [facility] [address] [place], [address] CO2 [Moles/Vol] 27.0 mmol/L Normal 21.0-32.0 [facility] Comment on above: Performed By: #### L 100.0100, L500.4050 #### [facility] [address] [place], [address] Creatinine [Mass/Vol] 0.44 mg/dL Low 0.55-1.02 [facility] Comment on above: Result Comment: The validity of the calculated GFR GFRAA in patients over 70 years has not been determined. Clinical correlation is essential. Performed By: #### L 100.0100, L500.4050 #### [facility] [address] [place], [address] ECRCL 49.24 ml/min Normal [facility] Comment on above: Performed By: #### L 100.0100, L500.4050 #### [facility] [address] [place], [address] EST GFR - AA 179 mL/min Normal >60 [facility] Comment on above: Result Comment: Afri can [employer] GFR Calc Performed By: #### L 100.0100, L500.4050 #### [facility] [address] [place], [address] GAP 4 Low 5-15 [facility] Comment on above: Performed By: #### L 100.0100, L500.4050 #### [facility] [address] [place], [address] GFR/1.73 sq M.predicted among non-blacks MDRD (S/P/Bld) [Vol rate/Area] 148 mL/min/{1.73_m2} Normal >60 [facility] Comment on above: Result Comment: Non- GFR Calc Performed By: #### L 100.0100, L500.4050 #### [facility] [address] [place], [address] Glucose [Mass/Vol] 77 mg/dL Normal 74-[address] [facility] Comment on above: Performed By: #### L 100.0100, L500.4050 #### [facility] [address] [place], [address] Potassium [Moles/Vol] 3.2 mmol/L Low 3.5-5.1 [facility] Comment on above: Performed By: #### L 100.0100, L500.4050 #### [facility] [address] [place], [address] Sodium [Moles/Vol] 142 mmol/L Normal 136-[address] [facility] Comment on above: Performed By: #### L 100.0100, L500.4050 #### [facility] [address] [place], [address] Urea nitrogen [Mass/Vol] 7 mg/dL Normal 7-18 [facility] Comment on above: Performed By: #### L 100.0100, L500.4050 #### [facility] [address] [place], [address] Basophil percentageOrdered B y: Gomez Johansen on 12-21-2023 Basophils/100 WBC (Bld) 0.6 % 0-1 [facility] Chloride [Moles/Vol] 111 mmol/L 98-107 [facility] Eosinophils/100 WBC (Bld) 1.8 % 0-5 [facility] Glucose [Mass/Vol] 77 mg/dL 74-[address] [facility] Hemoglobin (Bld) [Mass/Vol] 8.1 g/dL 12.0-15.0 [facility] Monocytes/100 WBC (Bld) 9.2 % 0-10 [facility] Neutrophils (Bld) [#/Vol] 6.5 10*3/uL 2.0-7.7 [facility] Neutrophils/100 WBC (Bld) 73.8 % 47-70 [facility] Potassium [Moles/Vol] 3.2 mmol/L 3.5-5.1 [facility] Sodium [Moles/Vol] 142 mmol/L 136-[address] [facility] WBC (Bld) [#/Vol] 8.8 10*3/uL 4.4-11.[address] [facility] Bedside Glucoseon 12-21-2023 FINGERSTICK GLU 138 mg/dL High 74-106 [facility] Comment on above: Result Comment: SYDNEY GEMENT OF PATIENT CARE PER NURSING PROTOCOL Performed By: #### L 501.080 #### [facility] [address] [place], [address] FINGERSTICK GLU 153 mg/dL High 74-106 [facility] Comment on above: Result Comment: SYDNEY GEMENT OF PATIENT CARE PER NURSING PROTOCOL Performed By: #### L 501.080 #### [facility] [address] [place], [address] FINGERSTICK GLU 152 mg/dL High 74-106 [facility] Comment on above: Result Comment: SYDNEY GEMENT OF PATIENT CARE PER NURSING PROTOCOL Performed By: #### L 501.080 #### [facility] [address] [place], [address] FINGERSTICK GLU 156 mg/dL High -106 [facility] Comment on above: Result Comment: SYDNEY GEMENT OF PATIENT CARE PER NURSING PROTOCOL Performed By: #### L 501.080 #### [facility] [address] [place], [address] FINGERSTICK GLU 297 mg/dL High 74-106 [facility] Comment on above: Result Comment: SYDNEY GEMENT OF PATIENT CARE PER NURSING PROTOCOL Performed By: #### L 501.080 #### [facility] [address] [place], [address] FINGERSTICK GLU 77 mg/dL Normal 74-106 [facility] Comment on above: Result Comment: SYDNEY GEMENT OF PATIENT CARE PER NURSING PROTOCOL Performed By: #### L 501.080 #### [facility] [address] [place], [address] CBC W/Diff, Automatedon 12-03 Absolute Lymph 1.19 X10 3/uL Normal 0.83-4.51 [facility] Comment on above: Performed By: #### L 501.080 #### [facility] [address] [place], [address] Absolute Neut 6.5 X10 3/uL Normal 2.0-7.7 [facility] Comment on above: Performed By: #### L 501.080 #### [facility] [address] [place], [address] Basophils/100 WBC (Bld) 0.6 % Normal 0-1 [facility] Comment on above: Performed By: #### L 501.080 #### [facility] [address] [place], [address] Eosinophils/100 WBC (Bld) 1.8 % Normal 0-5 [facility] Comment on above: Performed By: #### L 501.080 #### [facility] [address] [place], [address] Erythrocyte distribution width (RBC) [Ratio] 17.2 % High 11.6-14.6 [facility] Comment on above: Performed By: #### L 501.080 #### [facility] [address] [place], [address] Hematocrit (Bld) [Volume fraction] 25.5 % Low 37-47 [facility] Comment on above: Performed By: #### L 501.080 #### [facility] [address] [place], [address] Hemoglobin (Bld) [Mass/Vol] 8.1 g/dL Low 12.0-15.0 [facility] Comment on above: Performed By: #### L 501.080 #### [facility] [address] [place], [address] IG% 1.100 High 0.0-0.9 [facility] Comment on above: Result Comment: IG% - Immature Granulocytes (promyelocytes, myelocytes and metamyelocytes) > 1% indicates that a LEFT SHIFT is Present. Performed By: #### L 501.080 #### [facility] [address] [place], [address] Lymphocytes/100 WBC (Bld) 13.5 % Low 19-41 [facility] Comment on above: Performed By: #### L 501.080 #### [facility] [address] [place], [address] MCH (RBC) [Entitic mass] 28.7 pg Normal 27.0-32.0 [facility] Comment on above: Performed By: #### L 501.080 #### [facility] [address] [place], [address] MCHC (RBC) [Mass/Vol] 31.8 g/dL Low 32-36 [facility] Comment on above: Performed By: #### L 501.080 #### [facility] [address] [place], [address] MCV (RBC) [Entitic vol] 90.4 fL Normal 81-99 [facility] Comment on above: Performed By: #### L 501.080 #### [facility] [address] [place], [address] Monocytes/100 WBC (Bld) 9.2 % Normal 0-10 [facility] Comment on above: Performed By: #### L 501.080 #### [facility] [address] [place], [address] Neutrophils/100 WBC (Bld) 73.8 % High 47-70 [facility] Comment on above: Performed By: #### L 501.080 #### [facility] [address] [place], [address] Nucleated RBC (Bld) [#/Vol] 0 10*3/uL Normal 0-5 [facility] Comment on above: Performed By: #### L 501.080 #### [facility] [address] [place], [address] Platelet mean volume (Bld) [Entitic vol] 10.4 fL Normal 6.2-12.0 [facility] [facility] Comment on above: Performed By: #### L 501.080 #### [facility] [address] [place], [address] Platelets (Bld) [#/Vol] 199 10*3/uL Normal 150-450 [facility] Comment on above: Performed By: #### L 501.080 #### [facility] [address] [place], [address] RBC (Bld) [#/Vol] 2.82 10*6/uL Low 4.2-5.4 [facility] Comment on above: Performed By: #### L 501.080 #### [facility] [address] [place], [address] RDW SD 55.2 fl High 35.1-43.9 [facility] Comment on above: Performed By: #### L 501.080 #### [facility] [address] [place], [place], [address] WBC (Bld) [#/Vol] 8.8 10*3/uL Normal 4.4-11.[address] [facility] Comment on above: Performed By: #### L 501.080 #### [facility] [address] [place], [place], [address] Determination of erythrocyte mean corpuscular volume (MCV)Ordered By: Gomez Johansen on 12-21-2023 MCV (RBC) [Entitic vol] 90.4 fL 81-99 [facility] Erythrocyte distribution wid th ratioOrdered By: Gomezijeoma Johansen on 12-21-2023 Erythrocyte distribution width (RBC) [Ratio] 17.2 % 11.6-14.6 [facility] Erythrocyte distribution wid th standard deviationOrdered By: Gomezijeoma Johansen on 12-21-2023 Erythrocyte distribution width (RBC) [Entitic vol] 55.2 fL 35.1-43.9 [facility] Hematocrit Auto (Bld) [Volum e fraction]Ordered By: Gomezijeoma Johansen on 12-21-2023 Hematocrit (Bld) [Volume fraction] 25.5 % 37-47 [facility] Immature granulocytes/100 WB C Auto (Bld)Ordered By: Gomezijeoma Johansen on 12-21-2023 Immature granulocytes/100 WBC (Bld) 1.100 % 0.0-0.9 [facility] Comment on above: IG% - Immature Granu locytes (promyelocytes, myelocytes and metamyelocytes) > 1% indicates that a LEFT SHIFT is Present. Laboratory - Chemistry and C hemistry - challengeOrdered By: Gomez Johansen on 12-21-2023 CO2 [Moles/Vol] 27.0 mmol/L 21.0-32.0 [facility] Urea nitrogen/Creatinine [Mass ratio] 16.0 mg/mg 10-20 [facility] - Hematology and Cell countsOrdered By: Gomez Johansen on 12-21-2023 MCH (RBC) [Entitic mass] 28.7 pg 27.0-32.0 [facility] MCHC (RBC) [Mass/Vol] 31.8 g/dL 32-36 [facility] Nucleated RBC/100 WBC (Bld) [Ratio] 0 % 0-5 [facility] Platelet mean volume (Bld) [Entitic vol] 10.4 fL 6.2-12.0 [facility] Platelets (Bld) [#/Vol] 199 10*3/uL 150-450 [facility] No Panel InformationOrdered By: Gomez Johansen on 12-21-2023 Estimated Creatinine Clearance Calc 49.24 ml/min [facility] Estimated GFR (MDRD) Amer 179 mL/min >60 [facility] Comment on above: GFR Calc Estimated GFR (MDRD) Non-Af Amer 148 mL/min >60 [facility] Comment on above: Non- GFR Calc RBC Auto (Bld) [#/Vol]Ordere d By: Gomez Johansen on 12-21-2023 RBC (Bld) [#/Vol] 2.82 10*6/uL 4.2-5.4 [facility] Serum or plasma calcium haris urement (mass/volume)Ordered By: Gomez Johansen on 12-21-2023 Calcium [Mass/Vol] 8.3 mg/dL 8.5-10.[address] [facility] Serum or plasma creatinine m easurement (mass/volume)Ordered By: Gomez Johansen on 12-21-2023 Creatinine [Mass/Vol] 0.44 mg/dL 0.55-1.02 [facility] Comment on above: The validity of the calculated GFR & GFRAA in patients over 70 years has not been determined. Clinical correlation is essential. Serum or plasma urea nitroge n measurement (mass/volume)Ordered By: Gomez Johansen on 12-21-2023 Urea nitrogen [Mass/Vol] 7 mg/dL 7-18 [facility] Thin prep Papanicolaou smear with manual screeningOrdered By: Gomez Johansen on 12-21-2023 Thin prep Papanicolaou smear with manual screening 4 5-15 [facility] Basic Metabolic Profile (BMP )on 02-18-2024 BUN/CRE 14.3 RATIO Normal 10-20 [facility] Comment on above: Performed By: #### L 100.0100, L500.2500 ####[facility] [address] [place], [address] CA,Total 7.9 mg/dL Low 8.5-10.1 [facility] Comment on above: Performed By: #### L 100.0100, L500.2500 ####[facility] [address] [place], [address] Chloride [Moles/Vol] 109 mmol/L High 98-107 [facility] Comment on above: Performed By: #### L 100.0100, L500.2500 ####[facility] [address] [place], [address] CO2 [Moles/Vol] 30.0 mmol/L Normal 21.0-32.0 [facility] Comment on above: Performed By: #### L 100.0100, L500.2500 ####[facility] [address] [place], [address] Creatinine [Mass/Vol] 0.49 mg/dL Low 0.55-1.02 [facility] Comment on above: Result Comment: The validity of the calculated GFR GFRAA in patients over 70 years has not been determined. Clinical correlation is essential. Performed By: #### L 100.0100, L500.2500 ####[facility] [address] [place], [address] ECRCL 49.24 ml/min Normal [facility] Comment on above: Performed By: #### L 100.0100, L500.2500 ####[facility] [address] [place], [address] EST GFR - AA 156 mL/min Normal >60 [facility] Comment on above: Result Comment: Afri can Austrian GFR Calc Performed By: #### L 100.0100, L500.2500 ####[facility] [address] [place], [address] GAP 3 Low 5-15 [facility] Comment on above: Performed By: #### L 100.0100, L500.2500 ####[facility] [address] [place], [address] GFR/1.73 sq M.predicted among non-blacks MDRD (S/P/Bld) [Vol rate/Area] 129 mL/min/{1.73_m2} Normal >60 [facility] Comment on above: Result Comment: Non- GFR Calc Performed By: #### L 100.0100, L500.2500 ####[facility] [address] [place], [address] Glucose [Mass/Vol] 87 mg/dL Normal 74-[address] [facility] Comment on above: Performed By: #### L 100.0100, L500.2500 ####[facility] [address] [place], [address] Potassium [Moles/Vol] 2.9 mmol/L Low 3.5-5.1 [facility] Comment on above: Performed By: #### L 100.0100, L500.2500 ####[facility] [address] [place], [address] Sodium [Moles/Vol] 142 mmol/L Normal 136-[address] [facility] Comment on above: Performed By: #### L 100.0100, L500.2500 ####[facility] [address] [place], [address] Urea nitrogen [Mass/Vol] 7 mg/dL Normal 7-18 [facility] Comment on above: Performed By: #### L 100.0100, L500.2500 ####[facility] [address] [place], [address] Bedside Glucoseon 12-20-2023 FINGERSTICK GLU 249 mg/dL High 74-106 [facility] Comment on above: Result Comment: SYDNEY GEMENT OF PATIENT CARE PER NURSING PROTOCOL Performed By: #### L 501.080 ####[facility] [address] [place], [address] FINGERSTICK GLU 222 mg/dL High 74-106 [facility] Comment on above: Result Comment: SYDNEY GEMENT OF PATIENT CARE PER NURSING PROTOCOL Performed By: #### L 501.080 #### [facility] [address] [place], [address] FINGERSTICK GLU 77 mg/dL Normal 74-106 [facility] Comment on above: Result Comment: SYDNEY GEMENT OF PATIENT CARE PER NURSING PROTOCOL Performed By: #### L 501.080 ####[facility] [address] [place], [address] CBC W/Diff, Automatedon 12-03 Absolute Lymph 1.07 X10 3/uL Normal 0.83-4.51 [facility] Comment on above: Performed By: #### L 100.0100, L500.2500 ####[facility] [address] [place], [address] Absolute Neut 6.0 X10 3/uL Normal 2.0-7.7 [facility] Comment on above: Performed By: #### L 100.0100, L500.2500 ####[facility] [address] [place], [address] Basophils/100 WBC (Bld) 0.6 % Normal 0-1 [facility] Comment on above: Performed By: #### L 100.0100, L500.2500 ####[facility] [address] [place], [address] Eosinophils/100 WBC (Bld) 2.2 % Normal 0-5 [facility] Comment on above: Performed By: #### L 100.0100, L500.2500 ####[facility] [address] [place], [address] Erythrocyte distribution width (RBC) [Ratio] 17.7 % High 11.6-14.6 [facility] Comment on above: Performed By: #### L 100.0100, L500.2500 ####[facility] [address] [place], [address] Hematocrit (Bld) [Volume fraction] 24.8 % Low 37-47 [facility] Comment on above: Performed By: #### L 100.0100, L500.2500 ####[facility] [address] [place], [address] Hemoglobin (Bld) [Mass/Vol] 8.1 g/dL Low 12.0-15.0 [facility] Comment on above: Performed By: #### L 100.0100, L500.2500 ####[facility] [address] [place], [address] IG% 1.600 High 0.0-0.9 [facility] Comment on above: Result Comment: IG% - Immature Granulocytes (promyelocytes, myelocytes and metamyelocytes) > 1% indicates that a LEFT SHIFT is Present. Performed By: #### L 100.0100, L500.2500 ####[facility] [address] [place], [address] Lymphocytes/100 WBC (Bld) 13.0 % Low 19-41 [facility] Comment on above: Performed By: #### L 100.0100, L500.2500 ####[facility] [address] [place], [address] MCH (RBC) [Entitic mass] 29.2 pg Normal 27.0-32.0 [facility] Comment on above: Performed By: #### L 100.0100, L500.2500 ####[facility] [address] [place], [address] MCHC (RBC) [Mass/Vol] 32.7 g/dL Normal 32-36 [facility] Comment on above: Performed By: #### L 100.0100, L500.2500 ####[facility] [address] [place], [address] MCV (RBC) [Entitic vol] 89.5 fL Normal 81-99 [facility] Comment on above: Performed By: #### L 100.0100, L500.2500 ####[facility] [address] [place], [address] Monocytes/100 WBC (Bld) 9.4 % Normal 0-10 [facility] Comment on above: Performed By: #### L 100.0100, L500.2500 ####[facility] [address] [place], [address] Neutrophils/100 WBC (Bld) 73.2 % High 47-70 [facility] Comment on above: Performed By: #### L 100.0100, L500.2500 ####[facility] [address] [place], [address] Nucleated RBC (Bld) [#/Vol] 0 10*3/uL Normal 0-5 [facility] Comment on above: Performed By: #### L 100.0100, L500.2500 ####[facility] [address] [place], [address] Platelet mean volume (Bld) [Entitic vol] 10.2 fL Normal 6.2-12.0 [facility] Comment on above: Performed By: #### L 100.0100, L500.2500 ####[facility] [address] [place], [address] Platelets (Bld) [#/Vol] 188 10*3/uL Normal 150-450 [facility] Comment on above: Performed By: #### L 100.0100, L500.2500 ####[facility] [address] [place], [address] RBC (Bld) [#/Vol] 2.77 10*6/uL Low 4.2-5.4 [facility] Comment on above: Performed By: #### L 100.0100, L500.2500 ####[facility] [address] [place], [address] RDW SD 54.5 fl High 35.1-43.9 [facility] Comment on above: Performed By: #### L 100.0100, L500.2500 ####[facility] [address] [place], [address] WBC (Bld) [#/Vol] 8.2 10*3/uL Normal 4.4-11.[address] [facility] Comment on above: Performed By: #### L 100.0100, L500.2500 ####[facility] [address] [place], [address] Bedside Glucoseon 12-19-2023 FINGERSTICK GLU 170 mg/dL High 74-106 [facility] Comment on above: Result Comment: SYDNEY GEMENT OF PATIENT CARE PER NURSING PROTOCOL Performed By: #### L 501.080 #### [facility] [address] [place], [address] FINGERSTICK GLU 207 mg/dL High 74-106 [facility] Comment on above: Result Comment: SYDNEY GEMENT OF PATIENT CARE PER NURSING PROTOCOL Performed By: #### L 100.0100, L500.4050 #### [facility] [address] [place], [address] FINGERSTICK GLU 119 mg/dL High 74-106 [facility] Comment on above: Result Comment: SYDNEY GEMENT OF PATIENT CARE PER NURSING PROTOCOL Performed By: #### L 501.080 #### [facility] [address] [place], [address] FINGERSTICK GLU 191 mg/dL High 74-106 [facility] Comment on above: Result Comment: SYDNEY GEMENT OF PATIENT CARE PER NURSING PROTOCOL Performed By: #### L 501.080 #### [facility] [address] [place], [address] FINGERSTICK GLU 153 mg/dL High 74-106 [facility] Comment on above: Result Comment: SYDNEY GEMENT OF PATIENT CARE PER NURSING PROTOCOL Performed By: #### L 501.080 #### [facility] [address] [place], [address] CBC W/Diff, Automatedon 12-03 Absolute Lymph 1.07 X10 3/uL Normal 0.83-4.51 [facility] Comment on above: Performed By: #### L 501.080 #### [facility] [address] [place], [address] Absolute Neut 5.1 X10 3/uL Normal 2.0-7.7 [facility] Comment on above: Performed By: #### L 501.080 #### [facility] [address] [place], [address] Basophils/100 WBC (Bld) 0.7 % Normal 0-1 [facility] Comment on above: Performed By: #### L 501.080 #### [facility] [address] [place], [address] Eosinophils/100 WBC (Bld) 2.9 % Normal 0-5 [facility] Comment on above: Performed By: #### L 501.080 #### [facility] [address] [place], [address] Erythrocyte distribution width (RBC) [Ratio] 18.1 % High 11.6-14.6 [facility] Comment on above: Performed By: #### L 501.080 #### [facility] [address] [place], [address] Hematocrit (Bld) [Volume fraction] 24.2 % Low 37-47 [facility] Comment on above: Performed By: #### L 501.080 #### [facility] [address] [place], [address] IG% 2.500 High 0.0-0.9 [facility] Comment on above: Result Comment: IG% - Immature Granulocytes (promyelocytes, myelocytes and metamyelocytes) > 1% indicates that a LEFT SHIFT is Present. Performed By: #### L 501.080 #### [facility] [address] [place], [address] Lymphocytes/100 WBC (Bld) 14.7 % Low 19-41 [facility] Comment on above: Performed By: #### L 501.080 #### [facility] [address] [place], [address] MCH (RBC) [Entitic mass] 29.0 pg Normal 27.0-32.0 [facility] Comment on above: Performed By: #### L 501.080 #### [facility] [address] [place], [address] MCHC (RBC) [Mass/Vol] 33.1 g/dL Normal 32-36 [facility] Comment on above: Performed By: #### L 501.080 #### [facility] [address] [place], [address] MCV (RBC) [Entitic vol] 87.7 fL Normal 81-99 [facility] Comment on above: Performed By: #### L 501.080 #### [facility] [address] [place], [address] Monocytes/100 WBC (Bld) 9.8 % Normal 0-10 [facility] Comment on above: Performed By: #### L 501.080 #### [facility] [address] [place], [address] Neutrophils/100 WBC (Bld) 69.4 % Normal 47-70 [facility] Comment on above: Performed By: #### L 501.080 #### [facility] [address] [place], [address] Nucleated RBC (Bld) [#/Vol] 0 10*3/uL Normal 0-5 [facility] Comment on above: Performed By: #### L 501.080 #### [facility] [address] [place], [address] Platelet mean volume (Bld) [Entitic vol] 10.0 fL Normal 6.2-12.0 [facility] Comment on above: Performed By: #### L 501.080 #### [facility] [address] [place], [address] Platelets (Bld) [#/Vol] 168 10*3/uL Normal 150-450 [facility] Comment on above: Performed By: #### L 501.080 #### [facility] [address] [place], [address] RBC (Bld) [#/Vol] 2.76 10*6/uL Low 4.2-5.4 [facility] Comment on above: Performed By: #### L 501.080 #### [facility] [address] [place], [address] RDW SD 53.6 fl High 35.1-43.9 [facility] Comment on above: Performed By: #### L 501.080 #### [facility] [address] [place], [address] WBC (Bld) [#/Vol] 7.3 10*3/uL Normal 4.4-11.[address] [facility] Comment on above: Performed By: #### L 501.080 #### [facility] [address] [place], [address] HH, Hemoglobin AND Hematocri ton 12-19-2023 Hematocrit (Bld) [Volume fraction] 24.0 % Low 37-47 [facility] Comment on above: Performed By: #### L 501.080 #### [facility] [address] [place], [address] Hemoglobin (Bld) [Mass/Vol] 8.0 g/dL Low 12.0-15.0 [facility] Comment on above: Performed By: #### L 501.080 #### [facility] [address] [place], [address] MR/PN.GIon 12-19-2023 MR/PN.GI [facility] Medical Records Department [address] [place] [address] Progress Note - GI 12/19/23 1634 MR#: [id number] Acct: [id number] Name: KELLIE DOZIER MARIETTA Rep #: [id number] : 1945 78 From: Cullen Ferrer DO PCP: Dr. Santo Love MD Status:ADM IN Location: [place] [address] Subjective Subjective Patient underwent repeat emergent upper [...] (Auto) 69.4, Lymph % (Auto) 14.7 L, Pickett % (Auto) 9.8, Eos % (Auto) 2.9, [...] is a 78-year-old female who presented to [facility] ED on 12/11/2023 with hematemesis. [...] Cosigner Signature (if applicable): CC: Signed Normal [facility] Basic Metabolic Profile (BMP )on 12-18-2023 BUN/CRE 26.4 RATIO High 10-20 [facility] Comment on above: Performed By: #### L 501.080 #### [facility] [address] [place], [address] CA,Total 7.9 mg/dL Low 8.5-10.1 [facility] Comment on above: Performed By: #### L 501.080 #### [facility] [address] [place], [address] Chloride [Moles/Vol] 113 mmol/L High 98-107 [facility] Comment on above: Performed By: #### L 501.080 #### [facility] [address] [place], [address] CO2 [Moles/Vol] 25.0 mmol/L Normal 21.0-32.0 [facility] Comment on above: Performed By: #### L 501.080 #### [facility] [address] [place], [address] Creatinine [Mass/Vol] 0.57 mg/dL Normal 0.55-1.02 [facility] Comment on above: Result Comment: The validity of the calculated GFR GFRAA in patients over 70 years has not been determined. Clinical correlation is essential. Performed By: #### L 501.080 #### [facility] [address] [place], [address] ECRCL 49.24 ml/min Normal [facility] Comment on above: Performed By: #### L 501.080 #### [facility] [address] [place], [address] EST GFR - AA 132 mL/min Normal >60 [facility] Comment on above: Result Comment: Afri can Austrian GFR Calc Performed By: #### L 501.080 #### [facility] [address] [place], [address] GAP 4 Low 5-15 [facility] Comment on above: Performed By: #### L 501.080 #### [facility] [address] [place], [address] GFR/1.73 sq M.predicted among non-blacks MDRD (S/P/Bld) [Vol rate/Area] 109 mL/min/{1.73_m2} Normal >60 [facility] Comment on above: Result Comment: Non- GFR Calc Performed By: #### L 501.080 #### [facility] [address] [place], [address] Glucose [Mass/Vol] 206 mg/dL High 74-[address] [facility] Comment on above: Result Comment: Gluc ose result greater than or equal to 200 mg/dL suggests DIABETES MELLITUS per A.D.A. criteria. Performed By: #### L 501.080 #### [facility] [address] [place], [address] Potassium [Moles/Vol] 3.5 mmol/L Normal 3.5-5.1 [facility] Comment on above: Performed By: #### L 501.080 #### [facility] [address] [place], [address] Sodium [Moles/Vol] 142 mmol/L Normal 136-[address] [facility] Comment on above: Performed By: #### L 501.080 #### [facility] [address] [place], [address] Urea nitrogen [Mass/Vol] 15 mg/dL Normal 7-18 [facility] Comment on above: Performed By: #### L 501.080 #### [facility] [address] [place], [address] Bedside Glucoseon 12-18-2023 FINGERSTICK GLU 194 mg/dL High 74-106 [facility] Comment on above: Result Comment: SYDNEY ANDERSON OF PATIENT CARE PER NURSING PROTOCOL Performed By: #### L 501.080 #### [facility] [address] [place], [address] FINGERSTICK GLU 222 mg/dL High 74-106 [facility] Comment on above: Result Comment: SYDNEY GEMENT OF PATIENT CARE PER NURSING PROTOCOL Performed By: #### L 501.080 ####[facility] [address] [place], [address] FINGERSTICK GLU 171 mg/dL High 74-106 [facility] Comment on above: Result Comment: SYDNEY GEMENT OF PATIENT CARE PER NURSING PROTOCOL Performed By: #### L 501.080 #### [facility] [address] [place], [address] FINGERSTICK GLU 199 mg/dL High 74-106 [facility] Comment on above: Result Comment: SYDNEY GEMENT OF PATIENT CARE PER NURSING PROTOCOL Performed By: #### L 501.080 ####[facility] [address] [place], [address] CBC W/Diff, Automatedon 12-03 Absolute Lymph 1.15 X10 3/uL Normal 0.83-4.51 [facility] Comment on above: Order Comment: REDRA W. PREVIOUS SPECIMEN REJECTED DUE TOQNS. 12/18/23 0810 Genet Wood. Performed By: #### L 501.080 #### [facility] [address] [place], [address] Absolute Neut 6.5 X10 3/uL Normal 2.0-7.7 [facility] Comment on above: Order Comment: REDRA W. PREVIOUS SPECIMEN REJECTED DUE TOQNS. 12/18/23 0810 Genet Wood. Result Comment: This specimen has been REJECTED due to Laboratory criteria: Quanity Not Sufficient. ONI has been notified of need of recollection. 12/18/23 0809 Genet Wood Performed By: #### L 501.080 #### [facility] [address] [place], [address] Basophils/100 WBC (Bld) 0.8 % Normal 0-1 [facility] Comment on above: Order Comment: REDRA W. PREVIOUS SPECIMEN REJECTED DUE TOQNS. 12/18/2310 Genet R Clements. Performed By: #### L 501.080 #### [facility] [address] [place], [address] Eosinophils/100 WBC (Bld) 2.9 % Normal 0-5 [facility] Comment on above: Order Comment: REDRA W. PREVIOUS SPECIMEN REJECTED DUE TOQNS. 12/18/23809 Genet R Clements. Performed By: #### L 501.080 #### [facility] [address] [place], [address] Erythrocyte distribution width (RBC) [Ratio] 18.3 % High 11.6-14.6 [facility] Comment on above: Order Comment: REDRA W. PREVIOUS SPECIMEN REJECTED DUE TOQNS. 12/18/23809 Genet R Clements. Result Comment: This specimen has been REJECTED due to Laboratory criteria: Quanity Not Sufficient. ONI has been notified of need of recollection. 12/18/23808 Genet R Clements Performed By: #### L 501.080 #### [facility] [address] [place], [address] Hematocrit (Bld) [Volume fraction] 26.1 % Low 37-47 [facility] Comment on above: Order Comment: REDRA W. PREVIOUS SPECIMEN REJECTED DUE TOQNS. 12/18/2310 Genet R Clements. Result Comment: This specimen has been REJECTED due to Laboratory criteria: Quanity Not Sufficient. ONI has been notified of need of recollection. 12/18/23808 Genet R Clements Performed By: #### L 501.080 #### [facility] [address] [place], [address] Hemoglobin (Bld) [Mass/Vol] 8.5 g/dL Low 12.0-15.0 [facility] Comment on above: Order Comment: REDRA W. PREVIOUS SPECIMEN REJECTED DUE TOQNS. 12/18/2310 Genet R Nina. Result Comment: This specimen has been REJECTED due to Laboratory criteria: Quanity Not Sufficient. ONI has been notified of need of recollection. 12/18/23808 Genet R Clements Performed By: #### L 501.080 #### [facility] [address] [place], [address] IG% 4.100 High 0.0-0.9 [facility] Comment on above: Order Comment: REDRA W. PREVIOUS SPECIMEN REJECTED DUE TOQNS. 12/18/23809 Genet R Nina. Result Comment: IG% - Immature Granulocytes (promyelocytes, myelocytes and metamyelocytes) > 1% indicates that a LEFT SHIFT is Present. Performed By: #### L 501.080 #### [facility] [address] [place], [address] Lymphocytes/100 WBC (Bld) 12.3 % Low 19-41 [facility] Comment on above: Order Comment: REDRA W. PREVIOUS SPECIMEN REJECTED DUE TOQNS. 12/18/23809 Genet R Nina. Performed By: #### L 501.080 #### [facility] [address] [place], [address] MCH (RBC) [Entitic mass] 28.8 pg Normal 27.0-32.0 [facility] Comment on above: Order Comment: REDRA W. PREVIOUS SPECIMEN REJECTED DUE TOQNS. 12/18/2310 Genet R Clements. Result Comment: This specimen has been REJECTED due to Laboratory criteria: Quanity Not Sufficient. ONI has been notified of need of recollection. 12/18/23808 Genet R Nina Performed By: #### L 501.080 #### [facility] [address] [place], [address] MCHC (RBC) [Mass/Vol] 32.6 g/dL Normal 32-36 [facility] Comment on above: Order Comment: REDRA W. PREVIOUS SPECIMEN REJECTED DUE TOQNS. 12/18/2310 Genet R Clements. Result Comment: This specimen has been REJECTED due to Laboratory criteria: Quanity Not Sufficient. ONI has been notified of need of recollection. 12/18/23808 Genet R Nina Performed By: #### L 501.080 #### [facility] [address] [place], [address] MCV (RBC) [Entitic vol] 88.5 fL Normal 81-99 [facility] Comment on above: Order Comment: REDRA W. PREVIOUS SPECIMEN REJECTED DUE TOQNS. 12/18/2310 Genet R Clements. Result Comment: This specimen has been REJECTED due to Laboratory criteria: Quanity Not Sufficient. ONI has been notified of need of recollection. 12/18/23808 Genet R Clements Performed By: #### L 501.080 #### [facility] [address] [place], [address] Monocytes/100 WBC (Bld) 9.9 % Normal 0-10 [facility] Comment on above: Order Comment: REDRA W. PREVIOUS SPECIMEN REJECTED DUE TOQNS. 12/18/2310 Genet R Nina. Performed By: #### L 501.080 #### [facility] [address] [place], [address] Neutrophils/100 WBC (Bld) 70.0 % Normal 47-70 [facility] Comment on above: Order Comment: REDRA W. PREVIOUS SPECIMEN REJECTED DUE TOQNS. 12/18/2310 Genet R Nina. Result Comment: This specimen has been REJECTED due to Laboratory criteria: Quanity Not Sufficient. ONI has been notified of need of recollection. 12/18/23808 Genet R Nina Performed By: #### L 501.080 #### [facility] [address] [place], [address] Nucleated RBC (Bld) [#/Vol] 0.4 10*3/uL Normal 0-5 [facility] Comment on above: Order Comment: REDRA W. PREVIOUS SPECIMEN REJECTED DUE TOQNS. 12/18/23809 Genet R Nina. Performed By: #### L 501.080 #### [facility] [address] [place], [address] Platelet mean volume (Bld) [Entitic vol] 10.2 fL Normal 6.2-12.0 [facility] Comment on above: Order Comment: REDRA W. PREVIOUS SPECIMEN REJECTED DUE TOQNS. 12/18/23809 Genet R Clements. Performed By: #### L 501.080 #### [facility] [address] [place], [address] Platelets (Bld) [#/Vol] 152 10*3/uL Normal 150-450 [facility] Comment on above: Order Comment: REDRA W. PREVIOUS SPECIMEN REJECTED DUE TOQNS. 12/18/2310 Genet R Nina. Result Comment: This specimen has been REJECTED due to Laboratory criteria: Quanity Not Sufficient. ONI has been notified of need of recollection. 12/18/23808 Genet R Clements Performed By: #### L 501.080 #### [facility] [address] [place], [address] RBC (Bld) [#/Vol] 2.95 10*6/uL Low 4.2-5.4 [facility] Comment on above: Order Comment: REDRA W. PREVIOUS SPECIMEN REJECTED DUE TOQNS. 12/18/23809 Genet R Nina. Result Comment: This specimen has been REJECTED due to Laboratory criteria: Quanity Not Sufficient. ONI has been notified of need of recollection. 12/18/23808 Genet R Nina Performed By: #### L 501.080 #### [facility] [address] [place], [address] RDW SD 54.5 fl High 35.1-43.9 [facility] Comment on above: Order Comment: REDRA W. PREVIOUS SPECIMEN REJECTED DUE TOQNS. 12/18/23809 Genet Sosa Clements. Result Comment: This specimen has been REJECTED due to Laboratory criteria: Quanity Not Sufficient. ONI has been notified of need of recollection. 12/18/23808 Genet R Nina Performed By: #### L 501.080 #### [facility] [address] [place], [address] WBC (Bld) [#/Vol] 9.3 10*3/uL Normal 4.4-11.[address] [facility] Comment on above: Order Comment: REDRA W. PREVIOUS SPECIMEN REJECTED DUE TOQNS. 12/18/23809 Genet R Clements. Result Comment: This specimen has been REJECTED due to Laboratory criteria: Quanity Not Sufficient. ONI has been notified of need of recollection. 12/18/23808 Genet Sosa Clements Performed By: #### L 501.080 #### [facility] [address] [place], [address] HH, Hemoglobin AND Hematocri ton 12-18-2023 Hematocrit (Bld) [Volume fraction] 24.9 % Low 37-47 [facility] Comment on above: Performed By: #### L 100.0100, L500.4050 #### [facility] [address] [place], [address] Hemoglobin (Bld) [Mass/Vol] 8.2 g/dL Low 12.0-15.0 [facility] Comment on above: Performed By: #### L 100.0100, L500.4050 #### [facility] [address] [place], [address] Basic Metabolic Profile (BMP )on 12-17-2023 BUN/CRE 36.4 RATIO High 10-20 [facility] Comment on above: Performed By: #### L 501.080 #### [facility] [address] [place], [address] CA,Total 7.8 mg/dL Low 8.5-10.1 [facility] Comment on above: Performed By: #### L 501.080 #### [facility] [address] [place], [address] Chloride [Moles/Vol] 111 mmol/L High 98-107 [facility] Comment on above: Performed By: #### L 501.080 #### [facility] [address] [place], [address] CO2 [Moles/Vol] 26.0 mmol/L Normal 21.0-32.0 [facility] Comment on above: Performed By: #### L 501.080 #### [facility] [address] [place], [address] Creatinine [Mass/Vol] 0.66 mg/dL Normal 0.55-1.02 [facility] Comment on above: Result Comment: The validity of the calculated GFR GFRAA in patients over 70 years has not been determined. Clinical correlation is essential. Performed By: #### L 501.080 #### [facility] [address] [place], [address] ECRCL 49.24 ml/min Normal [facility] Comment on above: Performed By: #### L 501.080 #### [facility] [address] [place], [address] EST GFR - AA 111 mL/min Normal >60 [facility] Comment on above: Result Comment: Afri can Austrian GFR Calc Performed By: #### L 501.080 #### [facility] [address] [place], [address] GAP 1 Low 5-15 [facility] Comment on above: Performed By: #### L 501.080 #### [facility] [address] [place], [address] GFR/1.73 sq M.predicted among non-blacks MDRD (S/P/Bld) [Vol rate/Area] 92 mL/min/{1.73_m2} Normal >60 [facility] Comment on above: Result Comment: Non- GFR Calc Performed By: #### L 501.080 #### [facility] [address] [place], [address] Glucose [Mass/Vol] 140 mg/dL High 74-[address] [facility] Comment on above: Result Comment: Fast ing Glucose result greater than or equal to 126 mg/dL suggests DIABETES MELLITUS per A.D.A. criteria. Performed By: #### L 501.080 #### [facility] [address] [place], [address] Potassium [Moles/Vol] 3.2 mmol/L Low 3.5-5.1 [facility] Comment on above: Performed By: #### L 501.080 #### [facility] [address] [place], [address] Sodium [Moles/Vol] 138 mmol/L Normal 136-[address] [facility] Comment on above: Performed By: #### L 501.080 #### [facility] [address] [place], [address] Urea nitrogen [Mass/Vol] 24 mg/dL High 7-18 [facility] Comment on above: Performed By: #### L 501.080 #### [facility] [address] [place], [address] Bedside Glucoseon 12-17-2023 FINGERSTICK GLU 96 mg/dL Normal 74-106 [facility] Comment on above: Result Comment: SYDNEY ANDERSON OF PATIENT CARE PER NURSING PROTOCOL Performed By: #### L 501.080 ####[facility] [address] [place], [address] FINGERSTICK GLU 130 mg/dL High 74-106 [facility] Comment on above: Result Comment: SYDNEY GEMENT OF PATIENT CARE PER NURSING PROTOCOL Performed By: #### L 501.080 #### [facility] [address] [place], [address] FINGERSTICK GLU 209 mg/dL High 74-106 [facility] Comment on above: Result Comment: SYDNEY GEMENT OF PATIENT CARE PER NURSING PROTOCOL Performed By: #### L 501.080 #### [facility] [address] [place], [address] FINGERSTICK GLU 259 mg/dL High 74-106 [facility] Comment on above: Result Comment: SYDNEY GEMENT OF PATIENT CARE PER NURSING PROTOCOL Performed By: #### L 501.080 #### [facility] [address] [place], [address] CBC W/Diff, Automatedon 02-11 06-2023 Absolute Lymph 1.66 X10 3/uL Normal 0.83-4.51 [facility] Comment on above: Performed By: #### L 100.0100 ####[facility] [address] [place], [address] Absolute Neut 8.8 X10 3/uL High 2.0-7.7 [facility] Comment on above: Performed By: #### L 100.0100 ####[facility] [address] [place], [address] Basophils/100 WBC (Bld) 0.4 % Normal 0-1 [facility] Comment on above: Performed By: #### L 100.0100 ####[facility] [address] [place], [address] Eosinophils/100 WBC (Bld) 2.7 % Normal 0-5 [facility] Comment on above: Performed By: #### L 100.0100 ####[facility] [address] [place], [address] Erythrocyte distribution width (RBC) [Ratio] 15.5 % High 11.6-14.6 [facility] Comment on above: Performed By: #### L 100.0100 ####[facility] [address] [place], [address] Hematocrit (Bld) [Volume fraction] 20.1 % Low 37-47 [facility] Comment on above: Performed By: #### L 100.0100 ####[facility] [address] [place], [address] Hemoglobin (Bld) [Mass/Vol] 6.8 g/dL Low 12.0-15.0 [facility] Comment on above: Performed By: #### L 100.0100 ####[facility] [address] [place], [address] IG% 2.800 High 0.0-0.9 [facility] Comment on above: Result Comment: IG% - Immature Granulocytes (promyelocytes, myelocytes and metamyelocytes) > 1% indicates that a LEFT SHIFT is Present. Performed By: #### L 100.0100 ####[facility] [address] [place], [address] Lymphocytes/100 WBC (Bld) 13.8 % Low 19-41 [facility] Comment on above: Performed By: #### L 100.0100 ####[facility] [address] [place], [address] MCH (RBC) [Entitic mass] 31.1 pg Normal 27.0-32.0 [facility] Comment on above: Performed By: #### L 100.0100 ####[facility] [address] [place], [address] MCHC (RBC) [Mass/Vol] 33.8 g/dL Normal 32-36 [facility] Comment on above: Performed By: #### L 100.0100 ####[facility] [address] [place], [address] MCV (RBC) [Entitic vol] 91.8 fL Normal 81-99 [facility] Comment on above: Performed By: #### L 100.0100 ####[facility] [address] [place], [address] Monocytes/100 WBC (Bld) 7.3 % Normal 0-10 [facility] Comment on above: Performed By: #### L 100.0100 ####[facility] [address] [place], [address] Neutrophils/100 WBC (Bld) 73.0 % High 47-70 [facility] Comment on above: Performed By: #### L 100.0100 ####[facility] [address] [place], [address] Nucleated RBC (Bld) [#/Vol] 0.7 10*3/uL Normal 0-5 [facility] Comment on above: Performed By: #### L 100.0100 ####[facility] [address] [place], [address] Platelet mean volume (Bld) [Entitic vol] 10.1 fL Normal 6.2-12.0 [facility] Comment on above: Performed By: #### L 100.0100 ####[facility] [address] [place], [address] Platelets (Bld) [#/Vol] 144 10*3/uL Low 150-450 [facility] Comment on above: Performed By: #### L 100.0100 ####[facility] [address] [place], [address] RBC (Bld) [#/Vol] 2.19 10*6/uL Low 4.2-5.4 [facility] Comment on above: Performed By: #### L 100.0100 ####[facility] [address] [place], [address] RDW SD 49.6 fl High 35.1-43.9 [facility] Comment on above: Performed By: #### L 100.0100 ####[facility] [address] [place], [address] WBC (Bld) [#/Vol] 12.0 10*3/uL High 4.4-11.0 [facility] Comment on above: Performed By: #### L 100.0100 ####[facility] [address] [place], [address] Consultation - Urologyon Consultation - Urology [facility] Medical Records Department [address] [place] [address] Consultation - Urology 12/17/23 1821 MR#: [id number] Acct: [id number] Name: KELLIE DOZIER MARIETTA Rep #: [id number] : 1945 78 From: Nitish Sood MD PCP: Dr. Santo Love MD Status:ADM IN Location: [place] [id number] HPI Consult Data Date of Consult: 12/17/23 [...] office for an appointment coming with questions. [facility] Medical History Atherosclerotic heart disease of [place] coronary artery without angina pectoris Essential hypertension [...] (Auto) 13 (more content not included)... Normal [facility] HH, Hemoglobin AND Hematocri ton 12-17-2023 Hematocrit (Bld) [Volume fraction] 26.1 % Low 37-47 [facility] Comment on above: Performed By: #### L 100.0600 ####[facility] [address] [place], [address] Hemoglobin (Bld) [Mass/Vol] 8.7 g/dL Low 12.0-15.0 [facility] Comment on above: Performed By: #### L 100.0600 ####[facility] [address], [address] MR/PN.GIon 12-17-2023 MR/PN.GI [facility] Medical Records Department [address] [place] [address] Progress Note - GI 12/17/23 1739 MR#: [id number] Acct: [id number] Name: KELLIE DOZIER Rep #: [id number] : 1945 78 From: Cullen Friend DO PCP: Dr. Santo Love MD Status:ADM IN Location: [place] [address] Subjective Subjective Patient underwent repeat emergent upper [...] 73.0 H, Lymph % (Auto) 13.8 L, [place] % (Auto) 7.3, Eos % (Auto) 2.7, [...] is a 78-year-old female who presented to [facility] ED on 12/11/2023 with hematemesis. [...] was n (more content not included)... Normal [facility] Basic Metabolic Profile (BMP )on 12-16-2023 BUN/CRE 44.7 RATIO High 10-20 [facility] Comment on above: Performed By: #### L 100.0500, L500.2500 ####[facility] [address] [place], [address] CA,Total 7.9 mg/dL Low 8.5-10.1 [facility] Comment on above: Performed By: #### L 100.0500, L500.2500 ####[facility] [address] [place], [address] Chloride [Moles/Vol] 111 mmol/L High 98-107 [facility] Comment on above: Performed By: #### L 100.0500, L500.2500 ####[facility] [address] [place], [address] CO2 [Moles/Vol] 22.0 mmol/L Normal 21.0-32.0 [facility] Comment on above: Performed By: #### L 100.0500, L500.2500 ####[facility] [address] [place], [address] Creatinine [Mass/Vol] 0.76 mg/dL Normal 0.55-1.02 [facility] Comment on above: Result Comment: The validity of the calculated GFR GFRAA in patients over 70 years has not been determined. Clinical correlation is essential. Performed By: #### L 100.0500, L500.2500 ####[facility] [address] [place], [address] ECRCL 49.24 ml/min Normal [facility] Comment on above: Performed By: #### L 100.0500, L500.2500 ####[facility] [address] [place], [address] EST GFR - AA 94 mL/min Normal >60 [facility] Comment on above: Result Comment: Afri can Austrian GFR Calc Performed By: #### L 100.0500, L500.2500 ####[facility] [address] [place], [address] GAP 8 Normal 5-15 [facility] Comment on above: Performed By: #### L 100.0500, L500.2500 ####[facility] [address] [place], [address] GFR/1.73 sq M.predicted among non-blacks MDRD (S/P/Bld) [Vol rate/Area] 78 mL/min/{1.73_m2} Normal >60 [facility] Comment on above: Result Comment: Non- GFR Calc Performed By: #### L 100.0500, L500.2500 ####[facility] [address] [place], [address] Glucose [Mass/Vol] 270 mg/dL High 74-[address] [facility] Comment on above: Result Comment: Gluc ose result greater than or equal to 200 mg/dL suggests DIABETES MELLITUS per A.D.A. criteria. Performed By: #### L 100.0500, L500.2500 ####[facility] [address] [place], [address] Potassium [Moles/Vol] 3.8 mmol/L Normal 3.5-5.1 [facility] Comment on above: Performed By: #### L 100.0500, L500.2500 ####[facility] [address] [place], [address] Sodium [Moles/Vol] 141 mmol/L Normal 136-[address] [facility] Comment on above: Performed By: #### L 100.0500, L500.2500 ####[facility] [address] [place], [address] Urea nitrogen [Mass/Vol] 34 mg/dL High 7-18 [facility] Comment on above: Performed By: #### L 100.0500, L500.2500 ####[facility] [address] [place], [address] Bedside Glucoseon 12-16-2023 FINGERSTICK GLU 239 mg/dL High 74-106 [facility] Comment on above: Result Comment: SYDNEY GEMENT OF PATIENT CARE PER NURSING PROTOCOL Performed By: #### L 501.080 #### [facility] Laboratory [address] [place], [address] FINGERSTICK GLU 424 mg/dL High 74-106 [facility] Comment on above: Result Comment: SYDNEY GEMENT OF PATIENT CARE PER NURSING PROTOCOL Performed By: #### L 100.0100, L500.4050 #### [facility] [address] [place], [address] FINGERSTICK GLU 246 mg/dL High 74-106 [facility] Comment on above: Result Comment: SYDNEY GEMENT OF PATIENT CARE PER NURSING PROTOCOL Performed By: #### L 501.080 ####[facility] [address] [place], [address] CBC-Complete Blood Cnt No Di ffon 12-16-2023 Erythrocyte distribution width (RBC) [Ratio] 15.9 % High 11.6-14.6 [facility] Comment on above: Performed By: #### L 100.0500, L500.2500 ####[facility] [address] [place], [address] Hematocrit (Bld) [Volume fraction] 19.7 % Low 37-47 [facility] Comment on above: Performed By: #### L 100.0500, L500.2500 ####[facility] [address] [place], [address] Hemoglobin (Bld) [Mass/Vol] 6.8 g/dL Low 12.0-15.0 [facility] Comment on above: Performed By: #### L 100.0500, L500.2500 ####[facility] [address] [place], [address] MCH (RBC) [Entitic mass] 30.8 pg Normal 27.0-32.0 [facility] Comment on above: Performed By: #### L 100.0500, L500.2500 ####[facility] [address] [place], [address] MCHC (RBC) [Mass/Vol] 34.5 g/dL Normal 32-36 [facility] Comment on above: Performed By: #### L 100.0500, L500.2500 ####[facility] [address] [place], [address] MCV (RBC) [Entitic vol] 89.1 fL Normal 81-99 [facility] Comment on above: Performed By: #### L 100.0500, L500.2500 ####[facility] [address] [place], [address] Platelet mean volume (Bld) [Entitic vol] 10.6 fL Normal 6.2-12.0 [facility] Comment on above: Performed By: #### L 100.0500, L500.2500 ####[facility] [address] [place], [address] Platelets (Bld) [#/Vol] 156 10*3/uL Normal 150-450 [facility] Comment on above: Performed By: #### L 100.0500, L500.2500 ####[facility] [address] [place], [address] RBC (Bld) [#/Vol] 2.21 10*6/uL Low 4.2-5.4 [facility] Comment on above: Performed By: #### L 100.0500, L500.2500 ####[facility] [address] [place], [address] RDW SD 49.7 fl High 35.1-43.9 [facility] Comment on above: Performed By: #### L 100.0500, L500.2500 ####[facility] [address] [place], [address] WBC (Bld) [#/Vol] 13.9 10*3/uL High 4.4-11.0 [facility] Comment on above: Performed By: #### L 100.0500, L500.2500 ####[facility] [address] [place], [address] CTA Abd/Pelvis W/WO Contrast on 12-16-2023 CTA Abd/Pelvis W/WO Contrast [facility] Imaging Services [address] [place] [address] CTA Abd/Pelvis W/WO Contrast MR#: [id number] Acct: [id number] Name: KELLIE DOZIER Rep #: [id number] : 1945 F 78 From: Sidney Benitez MD PCP: Dr. Santo Love MD Status: ADM IN Study: CTA Abd/Pelvis W/WO Contrast Date of Exam: Exam# [id number] Ordering Dr: Cullen Ferrer DO [id number] EXAM: CT ANGIOGRAPHY ABDOMEN AND PELVIS WITHOUT [...] CC: Dr. Santo Love MD; Cullen Ferrer, Complaint Manager: Signed Normal [facility] MR/PN.Ayan 12-16-2023 MR/PN.GI [facility] Medical Records Department [address] [place] [address] Progress Note - GI 12/16/23 1712 MR#: [id number] Acct: [id number] Name: KELLIE DOZIER Rep #: [id number] : 1945 78 From: Cullen Friend DO PCP: Dr. Santo Love MD Status:ADM IN Location: [place] [address] Subjective Subjective Patient underwent emergent endoscopy yesterday. [...] is a 78-year-old female who presented to [facility] ED on 12/11/2023 with hematemesis. [...] treated yesterday (more content not included)... Normal [facility] Absolute lymphocyte countOrd ered By: Panchito Zavaleta on 12-15-2023 Lymphocytes Auto (Unsp spec) [#/Vol] 1.77 10*3/uL 0.83-4.51 [facility] Automated lymphocyte count a s percentage of total leukocytesOrdered By: Panchito Zavaleta on 12-15-2023 Lymphocytes/100 WBC Auto (Unsp spec) 12.6 % 19-41 [facility] BRCon 12-15-2023 RC Normal [facility] Comment on above: Result Comment: [id number] AN RC TRANSFUSED 12/17/23 1402 Performed By: #### L 501.080 #### [facility] Laboratory [address] [place], [place], [address] Result Comment: [id number] AN RC TRANSFUSED 12/16/23 1600 RC Normal [facility] Comment on above: Result Comment: [id number] OP RC TRANSFUSED 12/15/23 1100 [id number] OP RC TRANSFUSED 12/15/23 1509 Performed By: #### B RC ####[facility] [address] [place], [place], [address] Basic Metabolic Profile (BMP )on 12-15-2023 BUN/CRE 49.0 RATIO High 10-20 [facility] Comment on above: Performed By: #### L 501.080 #### [facility] Laboratory [address] [place], [address] CA,Total 8.8 mg/dL Normal 8.5-10.1 [facility] Comment on above: Performed By: #### L 501.080 #### [facility] Laboratory [address] [place], [address] Chloride [Moles/Vol] 109 mmol/L High 98-107 [facility] Comment on above: Performed By: #### L 501.080 #### [facility] Laboratory [address] [place], [address] CO2 [Moles/Vol] 23.0 mmol/L Normal 21.0-32.0 [facility] Comment on above: Performed By: #### L 501.080 #### [facility] Laboratory [address] [place], [address] Creatinine [Mass/Vol] 0.84 mg/dL Normal 0.55-1.02 [facility] Comment on above: Result Comment: The validity of the calculated GFR GFRAA in patients over 70 years has not been determined. Clinical correlation is essential. Performed By: #### L 501.080 #### [facility] Laboratory [address] [place], [address] ECRCL 51.80 ml/min Normal [facility] Comment on above: Performed By: #### L 501.080 #### [facility] Laboratory [address] [place], [address] EST GFR - AA 84 mL/min Normal >60 [facility] Comment on above: Result Comment: Afri can Austrian GFR Calc Performed By: #### L 501.080 #### [facility] Laboratory [address] [place], [address] GAP 9 Normal 5-15 [facility] Comment on above: Performed By: #### L 501.080 #### [facility] Laboratory [address] [place], [address] GFR/1.73 sq M.predicted among non-blacks MDRD (S/P/Bld) [Vol rate/Area] 70 mL/min/{1.73_m2} Normal >60 [facility] Comment on above: Result Comment: Non- GFR Calc Performed By: #### L 501.080 #### [facility] Laboratory [address] [place], [address] Glucose [Mass/Vol] 410 mg/dL High 74-[address] [facility] Comment on above: Result Comment: Gluc ose result greater than or equal to 200 mg/dL suggests DIABETES MELLITUS per A.D.A. criteria. Performed By: #### L 501.080 #### [facility] Laboratory [address] [place], [address] Potassium [Moles/Vol] 4.5 mmol/L Normal 3.5-5.1 [facility] Comment on above: Performed By: #### L 501.080 #### [facility] Laboratory [address] [place], [address] Sodium [Moles/Vol] 141 mmol/L Normal 136-[address] [facility] Comment on above: Performed By: #### L 501.080 #### [facility] Laboratory [address] [place], [address] Urea nitrogen [Mass/Vol] 41 mg/dL High 7-18 [facility] Comment on above: Performed By: #### L 501.080 #### [facility] Laboratory [address] [place], [address] Basophil percentageOrdered B y: Panchito Zavaleta on 12-15-2023 Basophils/100 WBC (Bld) 0.4 % 0-1 [facility] Chloride [Moles/Vol] 109 mmol/L 98-107 [facility] Eosinophils/100 WBC (Bld) 0.0 % 0-5 [facility] Glucose [Mass/Vol] 410 mg/dL 74-[address] [facility] Comment on above: Glucose result great er than or equal to 200 mg/dLsuggests DIABETES MELLITUS per A.D.A. criteria. Hemoglobin (Bld) [Mass/Vol] 6.6 g/dL 12.0-15.0 [facility] Monocytes/100 WBC (Bld) 5.6 % 0-10 [facility] Neutrophils (Bld) [#/Vol] 11.2 10*3/uL 2.0-7.7 [facility] Neutrophils/100 WBC (Bld) 80.0 % 47-70 [facility] Potassium [Moles/Vol] 4.5 mmol/L 3.5-5.1 [facility] Sodium [Moles/Vol] 141 mmol/L 136-[address] [facility] WBC (Bld) [#/Vol] 14.0 10*3/uL 4.4-11.0 [facility] Bedside Glucoseon 12-15-2023 FINGERSTICK GLU 349 mg/dL High [address] [place] [address] Comment on above: Result Comment: SYDNEY GEMENT OF PATIENT CARE PER NURSING PROTOCOL Performed By: #### L 501.080 ####[facility] [address] [facility] [address] FINGERSTICK GLU 257 mg/dL High [address] [place] [address] Comment on above: Result Comment: SYDNEY GEMENT OF PATIENT CARE PER NURSING PROTOCOL Performed By: #### L 501.080 ####[facility] [address] [facility] [address] FINGERSTICK GLU 276 mg/dL High [address] [place] [address] Comment on above: Result Comment: SYDNEY GEMENT OF PATIENT CARE PER NURSING PROTOCOL Performed By: #### L 501.080 #### [facility] Laboratory [address] [facility] [address] FINGERSTICK GLU 320 mg/dL High [address] [place] [address] Comment on above: Result Comment: SYDNEY GEMENT OF PATIENT CARE PER NURSING PROTOCOL Performed By: #### L 100.0100, L500.4050 #### [facility] Laboratory [address] [place], [address] FINGERSTICK GLU 352 mg/dL High 74-106 [facility] Comment on above: Result Comment: SYDNEY ANDERSON OF PATIENT CARE PER NURSING PROTOCOL Performed By: #### L 501.080 #### [facility] Laboratory [address] [place], [address] CBC W/Diff, Automatedon 02- Absolute Lymph 1.77 X10 3/uL Normal 0.83-4.51 [facility] Comment on above: Performed By: #### L 501.080 #### [facility] Laboratory [address] [place], [address] Absolute Neut 11.2 X10 3/uL High 2.0-7.7 [facility] Comment on above: Performed By: #### L 501.080 #### [facility] Laboratory [address] [place], [address] Basophils/100 WBC (Bld) 0.4 % Normal 0-1 [facility] Comment on above: Performed By: #### L 501.080 #### [facility] Laboratory [address] [place], [address] Eosinophils/100 WBC (Bld) 0.0 % Normal 0-5 [facility] Comment on above: Performed By: #### L 501.080 #### [facility] Laboratory [address] [place], [address] Erythrocyte distribution width (RBC) [Ratio] 13.9 % Normal 11.6-14.6 [facility] Comment on above: Performed By: #### L 501.080 #### [facility] Laboratory [address] [place], [address] Hematocrit (Bld) [Volume fraction] 20.5 % Low 37-47 [facility] Comment on above: Performed By: #### L 501.080 #### [facility] Laboratory [address] [place], [address] Hemoglobin (Bld) [Mass/Vol] 6.6 g/dL Low 12.0-15.0 [facility] Comment on above: Performed By: #### L 501.080 #### [facility] Laboratory [address] [place], [address] IG% 1.400 High 0.0-0.9 [facility] Comment on above: Result Comment: IG% - Immature Granulocytes (promyelocytes, myelocytes and metamyelocytes) > 1% indicates that a LEFT SHIFT is Present. Performed By: #### L 501.080 #### [facility] Laboratory [address] [place], [address] Lymphocytes/100 WBC (Bld) 12.6 % Low 19-41 [facility] Comment on above: Performed By: #### L 501.080 #### [facility] Laboratory [address] [place], [address] MCH (RBC) [Entitic mass] 30.1 pg Normal 27.0-32.0 [facility] Comment on above: Performed By: #### L 501.080 #### [facility] Laboratory [address] [place], [address] MCHC (RBC) [Mass/Vol] 32.2 g/dL Normal 32-36 [facility] Comment on above: Performed By: #### L 501.080 #### [facility] Laboratory [address] [place], [address] MCV (RBC) [Entitic vol] 93.6 fL Normal 81-99 [facility] Comment on above: Performed By: #### L 501.080 #### [facility] Laboratory [address] [place], [address] Monocytes/100 WBC (Bld) 5.6 % Normal 0-10 [facility] Comment on above: Performed By: #### L 501.080 #### [facility] Laboratory [address] [place], [address] Neutrophils/100 WBC (Bld) 80.0 % High 47-70 [facility] Comment on above: Performed By: #### L 501.080 #### [facility] Laboratory [address] [place], [address] Nucleated RBC (Bld) [#/Vol] 0 10*3/uL Normal 0-5 [facility] Comment on above: Performed By: #### L 501.080 #### [facility] Laboratory [address] [place], [address] Platelet mean volume (Bld) [Entitic vol] 10.7 fL Normal 6.2-12.0 [facility] Comment on above: Performed By: #### L 501.080 #### [facility] Laboratory [address] [place], [address] Platelets (Bld) [#/Vol] 239 10*3/uL Normal 150-450 [facility] Comment on above: Performed By: #### L 501.080 #### [facility] Laboratory [address] [place], [address] RBC (Bld) [#/Vol] 2.19 10*6/uL Low 4.2-5.4 [facility] Comment on above: Performed By: #### L 501.080 #### [facility] Laboratory [address] [place], [address] RDW SD 46.3 fl High 35.1-43.9 [facility] Comment on above: Performed By: #### L 501.080 #### [facility] Laboratory [address] [place], [address] WBC (Bld) [#/Vol] 14.0 10*3/uL High 4.4-11.0 [facility] Comment on above: Performed By: #### L 501.080 #### [facility] Laboratory [address] [place], [address] CBC-Complete Blood Cnt No Di ffon 12-15-2023 Erythrocyte distribution width (RBC) [Ratio] 15.7 % High 11.6-14.6 [facility] Comment on above: Order Comment: PATIE NT GETTING BLOOD. FLOOR TO CALL WHEN DONE Performed By: #### L 501.080 #### [facility] Laboratory [address] [place], [address] Hematocrit (Bld) [Volume fraction] 24.2 % Low 37-47 [facility] Comment on above: Order Comment: PATIE NT GETTING BLOOD. FLOOR TO CALL WHEN DONE Performed By: #### L 501.080 #### [facility] Laboratory [address] [place], [address] Hemoglobin (Bld) [Mass/Vol] 7.9 g/dL Low 12.0-15.0 [facility] Comment on above: Order Comment: PATIE NT GETTING BLOOD. FLOOR TO CALL WHEN DONE Performed By: #### L 501.080 #### [facility] Laboratory [address] [place], [address] MCH (RBC) [Entitic mass] 30.0 pg Normal 27.0-32.0 [facility] Comment on above: Order Comment: PATIE NT GETTING BLOOD. FLOOR TO CALL WHEN DONE Performed By: #### L 501.080 #### [facility] Laboratory [address] [place], [address] MCHC (RBC) [Mass/Vol] 32.6 g/dL Normal 32-36 [facility] Comment on above: Order Comment: PATIE NT GETTING BLOOD. FLOOR TO CALL WHEN DONE Performed By: #### L 501.080 #### [facility] Laboratory [address] [place], [address] MCV (RBC) [Entitic vol] 92.0 fL Normal 81-99 [facility] Comment on above: Order Comment: PATIE NT GETTING BLOOD. FLOOR TO CALL WHEN DONE Performed By: #### L 501.080 #### [facility] Laboratory [address] [place], [address] Platelet mean volume (Bld) [Entitic vol] 10.5 fL Normal 6.2-12.0 [facility] Comment on above: Order Comment: PATIE NT GETTING BLOOD. FLOOR TO CALL WHEN DONE Performed By: #### L 501.080 #### [facility] Laboratory [address] [place], [address] Platelets (Bld) [#/Vol] 160 10*3/uL Normal 150-450 [facility] Comment on above: Order Comment: PATIE NT GETTING BLOOD. FLOOR TO CALL WHEN DONE Performed By: #### L 501.080 #### [facility] Laboratory [address] [place], [address] RBC (Bld) [#/Vol] 2.63 10*6/uL Low 4.2-5.4 [facility] Comment on above: Order Comment: PATIE NT GETTING BLOOD. FLOOR TO CALL WHEN DONE Performed By: #### L 501.080 #### [facility] Laboratory [address] [place], [address] RDW SD 51.6 fl High 35.1-43.9 [facility] Comment on above: Order Comment: PATIE NT GETTING BLOOD. FLOOR TO CALL WHEN DONE Performed By: #### L 501.080 #### [facility] Laboratory [address] [place], [address] WBC (Bld) [#/Vol] 14.1 10*3/uL High 4.4-11.0 [facility] Comment on above: Order Comment: PATIE NT GETTING BLOOD. FLOOR TO CALL WHEN DONE Performed By: #### L 501.080 #### [facility] Laboratory [address] [facility] [place], [address] Determination of erythrocyte mean corpuscular volume (MCV)Ordered By: Panchito Zavaleta on 12-15-2023 MCV (RBC) [Entitic vol] 93.6 fL 81-99 [facility] EGD Reporton 12-15-2023 EGD Report [facility] Medical Records Department [address] [place] [address] EGD Report MR#: [id number] Acct: [id number] Name: KELLIE DOZIER Rep #: [id number] : 1945 78 From: Cullen Ferrer DO [...] present medications. Procedure Code(s): --- Professional --- 26721, Esophagogastroduodenoscopy, flexible, transoral; with control of bleeding, any method 86383, 59,51, Esophagogastroduodenoscopy, flexible, transoral; with directed submucosal injection(s), any substance CPT copyright 2021 [employer]. All rights reserved. The codes documented in this report are preliminary and upon reconciliation clerk review may be revised to meet current compliance requirements. Cullen Ferrer DO 12/15/2023 4:32:31 PM This report has been signed electronically. Number of Addenda: 0 Note Initiated On: 12/12/2023 1:16 PM 12/15/23 1632 Date Cullen Perry Signature: Date (if indicated) CC: Dr. Santo Love MD; Cullen Ferrer DO Date Dictated: 12/12/23 1316 Date Transcribed: Complaint Manager: RF Signed Normal [facility] EGD Report [facility] Medical Records Department [address] [facility] [place] [address] EGD Report MR#: [id number] Acct: [id number] Name: KELLIE DOZIER [place] Rep #: [id number] : 1945 78 From: Cullen Ferrer DO [...] one hemostatic clip was successfully placed. Clip finger waver: [employer]. There was no bleeding at the end of the procedure. No gross lesions were noted in the second portion of the duodenum. Impression: - Normal esophagus. - Oozing gastric ulcer with a visible vessel. Injected. Treated with a heater probe. Clip was placed. Clip finger waver: [place] [employer]. - No gross lesions in the second portion of the duodenum. - No specimens collected. Recommendation: - Return patient to hospital chan for ongoing care. - Clear liquid diet. - Continue present medications. Procedure Code(s): --- Professional --- 80438, Esophagogastroduodenoscopy, flexible, transoral; with control of bleeding, any method 34442, 59,51, Esophagogastroduodenoscopy, flexible, transoral; with directed submucosal injection(s), any substance CPT copyright 2021 [employer]. All rights reserved. The codes documented in this report are preliminary and upon reconciliation clerk review may be revised to meet current compliance requirements. Cullen Ferrer DO 12/15/2023 4:28:41 PM This report has been signed electronically. Number of Addenda: 0 Note Initiated On: 12/15/2023 3:43 PM 12/15/23 1629 Date Cullen Friend DO Cosigner Signature: Date (if indicated) CC: Dr. Santo Love MD; Cullen Friend, Date Dictated: 12/15/23 1543 Date Transcribed: Complaint Manager: MIGUELINA Signed Normal [facility] Emergency Department Summary on 12-15-2023 Emergency Department Summary [facility] Medical Records Department [address] [place] [address] Emergency Department Summary 12/15/23 MR#: [id number] Acct: [id number] Name: KELLIE DOZIER [place] Rep #: [id number] : 1945 78 From: Panchito Zavaleta MD PCP: Dr. Santo Love MD Status:[facility] ER Location: ED HPI HPI - GI [...] sublingual Zofran but she vomited it up. [facility] Medical History Atherosclerotic heart disease of [place] coronary artery without angina pectoris Essential hypertension [...] or we (more content not included)... Normal [facility] Erythrocyte distribution wid th ratioOrdered By: Panchito Zavaleta on 12-15-2023 Erythrocyte distribution width (RBC) [Ratio] 13.9 % 11.6-14.6 [facility] Erythrocyte distribution wid th standard deviationOrdered By: Panchito Zavaleta on 12-15-2023 Erythrocyte distribution width (RBC) [Entitic vol] 46.3 fL 35.1-43.9 [facility] H AND P Exam - Hospital[facility] 12-15-2023 H&P Exam - Hospitalist [facility] Medical Records Department [address] [place] [address] H P Exam - Hospitalist 12/15/23 1136 MR#: [id number] Acct: [id number] Name: KELLIE DOZIER Rep #: [id number] : 1945 78 From: Tahir Rivas DO PCP: Dr. Santo Love MD Status:ADM IN Location: [facility] [id number] HPI - General General Date of Admission: 12/15/23 Date of Service: 12/15/23 Chief Complaint: Recurrent upper GI bleed HPI Narrative KELLIE DOZIER, is a 78 F who presented to [facility] ED on morning of 12/15/2023 with recurrent upper GI bleed. Patient was recently hospitalized at [facility] from 12/11 to 12/13 for an [...] No other acute concerns at this time. [facility] Medical History Atherosclerotic heart disease of [place] coronary artery without angina pectoris Essential hypertension [...] use caff (more content not included)... Normal [facility] Hematocrit Auto (Bld) [Volum e fraction]Ordered By: Panchito Zavaleta on 12-15-2023 Hematocrit (Bld) [Volume fraction] 20.5 % 37-47 [facility] Immature granulocytes/100 WB C Auto (Bld)Ordered By: Panchito Zavaleta on 12-15-2023 Immature granulocytes/100 WBC (Bld) 1.400 % 0.0-0.9 [facility] Comment on above: IG% - Immature Granu locytes (promyelocytes, myelocytes and metamyelocytes) > 1% indicates that a LEFT SHIFT is Present. Laboratory - Chemistry and C hemistry - challengeOrdered By: Panchito Zavaleta on 12-15-2023 CO2 [Moles/Vol] 23.0 mmol/L 21.0-32.0 [facility] Urea nitrogen/Creatinine [Mass ratio] 49.0 mg/mg 10-20 [facility] Laboratory - Hematology and Cell countsOrdered By: Panchito Zavaleta on 12-15-2023 MCH (RBC) [Entitic mass] 30.1 pg 27.0-32.0 [facility] MCHC (RBC) [Mass/Vol] 32.2 g/dL 32-36 [facility] Nucleated RBC/100 WBC (Bld) [Ratio] 0 % 0-5 [facility] Platelet mean volume (Bld) [Entitic vol] 10.7 fL 6.2-12.0 [facility] Platelets (Bld) [#/Vol] 239 10*3/uL 150-450 [facility] No Panel InformationOrdered By: Panchito Zavaleta on 12-15-2023 Estimated Creatinine Clearance Calc 51.80 ml/min [facility] Estimated GFR (MDRD) Amer 84 mL/min >60 [facility] Comment on above: GFR Calc Estimated GFR (MDRD) Non-Af Amer 70 mL/min >60 [facility] Comment on above: Non- GFR Calc RBC Auto (Bld) [#/Vol]Ordere d By: Panchito Zavaleta on 12-15-2023 RBC (Bld) [#/Vol] 2.19 10*6/uL 4.2-5.4 [facility] Serum or plasma calcium haris urement (mass/volume)Ordered By: Panchito Zavaleta on 12-15-2023 Calcium [Mass/Vol] 8.8 mg/dL 8.5-10.[address] [facility] Serum or plasma creatinine m easurement (mass/volume)Ordered By: Panchito Zavaleta on 12-15-2023 Creatinine [Mass/Vol] 0.84 mg/dL 0.55-1.02 [facility] Comment on above: The validity of the calculated GFR & GFRAA in patients over 70 years has not been determined. Clinical correlation is essential. Serum or plasma urea nitroge n measurement (mass/volume)Ordered By: Panchito Zavaleta on 12-15-2023 Urea nitrogen [Mass/Vol] 41 mg/dL 7-18 [facility] Thin prep Papanicolaou smear with manual screeningOrdered By: Panchito Zavaleta on 12-15-2023 Thin prep Papanicolaou smear with manual screening 352 mg/dL 74-106 [facility] Comment on above: MANAGEMENT OF PATIEN T CARE PER NURSING PROTOCOL Thin prep Papanicolaou smear with manual screening 9 5-15 [facility] Type AND Screenon 12-15-2023 ABO and Rh group Nom (Bld) Blood group A Rh(D) positive Normal [facility] Comment on above: Order Comment: HGI Performed By: #### L 501.080 #### [facility] Laboratory [address] [place], [address] CBC-Complete Blood Cnt No Di ffon 12-14-2023 HCT Normal 37-47 [facility] Comment on above: Result Comment: Canc elled via OM: Order cancelled - Patient discharged Performed By: #### L 501.080 #### [facility] [address] [place], [address] HGB Normal 12.0-15.0 [facility] Comment on above: Result Comment: Canc elled via OM: Order cancelled - Patient discharged Performed By: #### L 501.080 #### [facility] [address] [place], [address] MCH Normal 27.0-32.0 [facility] Comment on above: Result Comment: Canc elled via OM: Order cancelled - Patient discharged Performed By: #### L 501.080 #### [facility] [address] [place], [address] MCHC Normal 32-36 [facility] Comment on above: Result Comment: Canc elled via OM: Order cancelled - Patient discharged Performed By: #### L 501.080 #### [facility] [address] [place], [address] MCV Normal 81-99 [facility] Comment on above: Result Comment: Canc elled via OM: Order cancelled - Patient discharged Performed By: #### L 501.080 #### [facility] [address] [place], [address] PLT Normal 150-450 [facility] Comment on above: Result Comment: Canc elled via OM: Order cancelled - Patient discharged Performed By: #### L 501.080 #### [facility] [address] [place], [address] RBC Normal 4.2-5.4 [facility] Comment on above: Result Comment: Canc elled via OM: Order cancelled - Patient discharged Performed By: #### L 501.080 #### [facility] [address] [place], [address] RDW CV Normal 11.6-14.6 [facility] Comment on above: Result Comment: Canc elled via OM: Order cancelled - Patient discharged Performed By: #### L 501.080 #### [facility] [address] [place], [address] RDW SD Normal 35.1-43.9 [facility] Comment on above: Result Comment: Canc elled via OM: Order cancelled - Patient discharged Performed By: #### L 501.080 #### [facility] [address] [place], [address] WBC Normal 4.4-11.0 [facility] Comment on above: Result Comment: Canc elled via OM: Order cancelled - Patient discharged Performed By: #### L 501.080 #### [facility] [address] [place], [address] Vitamin B12on 12-14-2023 Cobalamin (Vitamin B12) [Mass/Vol] 1452 pg/mL High 211-911 [facility] Comment on above: Performed By: #### L 100.0100, L500.4050 #### [facility] [address] [place], [address] Basophil percentageOrdered B y: Tahir Rivas on 12-13-2023 Hemoglobin (Bld) [Mass/Vol] 9.3 g/dL 12.0-15.0 [facility] WBC (Bld) [#/Vol] 8.4 10*3/uL 4.4-11.[address] [facility] Bedside Glucoseon 12-13-2023 FINGERSTICK GLU 191 mg/dL High 74-106 [facility] Comment on above: Result Comment: SYDNEY GEMENT OF PATIENT CARE PER NURSING PROTOCOL Performed By: #### L 501.080 #### [facility] [address] [place], [address] FINGERSTICK GLU 247 mg/dL High 74-106 [facility] Comment on above: Result Comment: SYDNEY GEMENT OF PATIENT CARE PER NURSING PROTOCOL Performed By: #### L 501.080 #### [facility] [address] [place], [address] FINGERSTICK GLU 158 mg/dL High 74-106 [facility] Comment on above: Result Comment: SYDNEY GEMENT OF PATIENT CARE PER NURSING PROTOCOL Performed By: #### L 501.080 #### [facility] [address] [place], [address] CBC-Complete Blood Cnt No Di ffon 12-13-2023 Erythrocyte distribution width (RBC) [Ratio] 13.3 % Normal 11.6-14.6 [facility] Comment on above: Performed By: #### L 100.0500 ####[facility] [address] [place], [address] Hematocrit (Bld) [Volume fraction] 28.7 % Low 37-47 [facility] Comment on above: Performed By: #### L 100.0500 ####[facility] [address] [place], [address] Hemoglobin (Bld) [Mass/Vol] 9.3 g/dL Low 12.0-15.0 [facility] Comment on above: Performed By: #### L 100.0500 ####[facility] [address] [place], [address] MCH (RBC) [Entitic mass] 30.8 pg Normal 27.0-32.0 [facility] Comment on above: Performed By: #### L 100.0500 ####[facility] [address] [place], [address] MCHC (RBC) [Mass/Vol] 32.4 g/dL Normal 32-36 [facility] Comment on above: Performed By: #### L 100.0500 ####[facility] [address] [place], [address] MCV (RBC) [Entitic vol] 95.0 fL Normal 81-99 [facility] Comment on above: Performed By: #### L 100.0500 ####[facility] [address] [place], [address] Platelet mean volume (Bld) [Entitic vol] 10.4 fL Normal 6.2-12.0 [facility] Comment on above: Performed By: #### L 100.0500 ####[facility] [address] [place], [address] Platelets (Bld) [#/Vol] 189 10*3/uL Normal 150-450 [facility] Comment on above: Performed By: #### L 100.0500 ####[facility] [address] [place], [address] RBC (Bld) [#/Vol] 3.02 10*6/uL Low 4.2-5.4 [facility] Comment on above: Performed By: #### L 100.0500 ####[facility] [address] [place], [address] RDW SD 45.8 fl High 35.1-43.9 [facility] Comment on above: Performed By: #### L 100.0500 ####[facility] [address] [place], [address] WBC (Bld) [#/Vol] 8.4 10*3/uL Normal 4.4-11.[address] [facility] Comment on above: Performed By: #### L 100.0500 ####[facility] [address] [place], [address] Determination of erythrocyte mean corpuscular volume (MCV)Ordered By: Tahir Rivas on 12-13-2023 MCV (RBC) [Entitic vol] 95.0 fL 81-99 [facility] Discharge Instructionon 12-03 Discharge Instruction [facility] Medical Records Department [address] [place] [address] Instructions for Home/Discharge Instructions 12/13/23 1525 MR#: [id number] Acct: [id number] Name: KELLIE DOZIER Rep #: [id number] : 1945 78 From: Tahir Rivas DO [...] CC: Dr. Santo Love MD Signed Normal [facility] Erythrocyte distribution wid th ratioOrdered By: Tahir Rivas on 12-13-2023 Erythrocyte distribution width (RBC) [Ratio] 13.3 % 11.6-14.6 [facility] Erythrocyte distribution wid th standard deviationOrdered By: Tahir Rivas on 12-13-2023 Erythrocyte distribution width (RBC) [Entitic vol] 45.8 fL 35.1-43.9 [facility] Hematocrit Auto (Bld) [Volum e fraction]Ordered By: Tahir Rivas on 12-13-2023 Hematocrit (Bld) [Volume fraction] 28.7 % 37-47 [facility] Laboratory - Hematology and Cell countsOrdered By: Tahir Rivas on 12-13-2023 MCH (RBC) [Entitic mass] 30.8 pg 27.0-32.0 [facility] MCHC (RBC) [Mass/Vol] 32.4 g/dL 32-36 [facility] Platelet mean volume (Bld) [Entitic vol] 10.4 fL 6.2-12.0 [facility] Platelets (Bld) [#/Vol] 189 10*3/uL 150-450 [facility] RBC Auto (Bld) [#/Vol]Ordere d By: Tahir Rivas on 12-13-2023 RBC (Bld) [#/Vol] 3.02 10*6/uL 4.2-5.4 [facility] Thin prep Papanicolaou smear with manual screeningOrdered By: Tahir Rivas on 12-13-2023 Thin prep Papanicolaou smear with manual screening 191 mg/dL 74-106 [facility] Comment on above: MANAGEMENT OF PATIEN T CARE PER NURSING PROTOCOL 12 Lead EKGon 12-12-2023 12 Lead EKG [facility] Cardiovascular Services [address] [place] [address] 12 Lead EKG 12/12/23 0555 MR#: [id number] Acct: [id number] Name: KELLIE DOZIER Rep #: [id number] : 1945 78 From: Jacques Fortune MD Attending Dr: Dr. Tahir Rivas DO Status : DIS IN Ordering Dr: Rod Clifton DO Date: 12/12/23 Location: [facility] Sex: F C Admitted: 12/11/23 Test Reason [...] DATA IS UNCONFIRMED Confirmed by Jacques Fortune ([id number]), newspaper or periodical editor LISA LOZANO ([id number]) on 12/15/2023 9:39:29 AM Referred By: Confirmed By:Jacques Fortune 12/15/23 0939 Date Jacques Fortune MD CC: Dr. Tahir Rivas DO; Dr. Rod Clifton DO; Dr. Santo Love MD Signed Normal [facility] Basic Metabolic Profile (BMP )on 12-12-2023 BUN/CRE 47.0 RATIO High 10-20 [facility] Comment on above: Performed By: #### L 100.0500, L500.2500 ####[facility] [address] [place], [address] CA,Total 8.6 mg/dL Normal 8.5-10.1 [facility] Comment on above: Performed By: #### L 100.0500, L500.2500 ####[facility] [address] [place], [address] Chloride [Moles/Vol] 108 mmol/L High 98-107 [facility] Comment on above: Performed By: #### L 100.0500, L500.2500 ####[facility] [address] [place], [address] CO2 [Moles/Vol] 29.0 mmol/L Normal 21.0-32.0 [facility] Comment on above: Performed By: #### L 100.0500, L500.2500 ####[facility] [address] [place], [address] Creatinine [Mass/Vol] 0.74 mg/dL Normal 0.55-1.02 [facility] Comment on above: Result Comment: The validity of the calculated GFR GFRAA in patients over 70 years has not been determined. Clinical correlation is essential. Performed By: #### L 100.0500, L500.2500 ####[facility] [address] [place], [address] ECRCL 49.24 ml/min Normal [facility] Comment on above: Performed By: #### L 100.0500, L500.2500 ####[facility] [address] [place], [address] EST GFR - AA 96 mL/min Normal >60 [facility] Comment on above: Result Comment: Afri can Austrian GFR Calc Performed By: #### L 100.0500, L500.2500 ####[facility] [address] [place], [address] GAP 3 Low 5-15 [facility] Comment on above: Performed By: #### L 100.0500, L500.2500 ####[facility] [address] [place], [address] GFR/1.73 sq M.predicted among non-blacks MDRD (S/P/Bld) [Vol rate/Area] 80 mL/min/{1.73_m2} Normal >60 [facility] Comment on above: Result Comment: Non- GFR Calc Performed By: #### L 100.0500, L500.2500 ####[facility] [address], [address] Glucose [Mass/Vol] 190 mg/dL High 74-[address] [facility] Comment on above: Result Comment: Fast ing Glucose result greater than or equal to 126 mg/dL suggests DIABETES MELLITUS per A.D.A. criteria. Performed By: #### L 100.0500, L500.2500 ####[facility] [address] [place], [address] Potassium [Moles/Vol] 3.6 mmol/L Normal 3.5-5.1 [facility] Comment on above: Performed By: #### L 100.0500, L500.2500 ####[facility] [address] [place], [address] Sodium [Moles/Vol] 140 mmol/L Normal 136-[address] [facility] Comment on above: Performed By: #### L 100.0500, L500.2500 ####[facility] [address] [place], [address] Urea nitrogen [Mass/Vol] 35 mg/dL High 7-18 [facility] Comment on above: Performed By: #### L 100.0500, L500.2500 ####[facility] [address] [place], [address] Basophil percentageOrdered B y: Tahir Rob on 12-12-2023 Chloride [Moles/Vol] 108 mmol/L 98-107 [facility] Glucose [Mass/Vol] 190 mg/dL 74-[address] [facility] Comment on above: Fasting Glucose resu lt greater than or equal to 126 mg/dL suggests DIABETES MELLITUS per A.D.A. criteria. Potassium [Moles/Vol] 3.6 mmol/L 3.5-5.1 [facility] Sodium [Moles/Vol] 140 mmol/L 136-[address] [facility] Bedside Glucoseon 12-12-2023 FINGERSTICK GLU 162 mg/dL High 74-106 [facility] Comment on above: Result Comment: SYDNEY GEMENT OF PATIENT CARE PER NURSING PROTOCOL Performed By: #### L 501.080 #### [facility] Laboratory [address] [place], [address] FINGERSTICK GLU 196 mg/dL High [facility]106 [facility] Comment on above: Result Comment: SYDNEY GEMENT OF PATIENT CARE PER NURSING PROTOCOL Performed By: #### L 501.080 #### [facility] Laboratory [address] [place], [address] FINGERSTICK GLU 161 mg/dL High -106 [facility] Comment on above: Result Comment: SYDNEY GEMENT OF PATIENT CARE PER NURSING PROTOCOL Performed By: #### L 501.080 #### [facility] Laboratory [address] [place], [address] FINGERSTICK GLU 163 mg/dL High [facility]106 [facility] Comment on above: Result Comment: SYDNEY GEMENT OF PATIENT CARE PER NURSING PROTOCOL Performed By: #### L 501.080 ####[facility] [address] [place], [address] CBC-Complete Blood Cnt No Di ffon 12-12-2023 Erythrocyte distribution width (RBC) [Ratio] 13.8 % Normal 11.6-14.6 [facility] Comment on above: Performed By: #### L 100.0500, L500.2500 ####[facility] [address] [place], [address] Hematocrit (Bld) [Volume fraction] 26.3 % Low 37-47 [facility] Comment on above: Performed By: #### L 100.0500, L500.2500 ####[facility] [address] [place], [address] Hemoglobin (Bld) [Mass/Vol] 8.6 g/dL Low 12.0-15.0 [facility] Comment on above: Performed By: #### L 100.0500, L500.2500 ####[facility] [address] [place], [address] MCH (RBC) [Entitic mass] 30.7 pg Normal 27.0-32.0 [facility] Comment on above: Performed By: #### L 100.0500, L500.2500 ####[facility] [address] [place], [address] MCHC (RBC) [Mass/Vol] 32.7 g/dL Normal 32-36 [facility] Comment on above: Performed By: #### L 100.0500, L500.2500 ####[facility] [address] [place], [address] MCV (RBC) [Entitic vol] 93.9 fL Normal 81-99 [facility] Comment on above: Performed By: #### L 100.0500, L500.2500 ####[facility] [address] [place], [address] Platelet mean volume (Bld) [Entitic vol] 10.1 fL Normal 6.2-12.0 [facility] Comment on above: Performed By: #### L 100.0500, L500.2500 ####[facility] [address] [place], [address] Platelets (Bld) [#/Vol] 181 10*3/uL Normal 150-450 [facility] Comment on above: Performed By: #### L 100.0500, L500.2500 ####[facility] [address] [place], [address] RBC (Bld) [#/Vol] 2.80 10*6/uL Low 4.2-5.4 [facility] Comment on above: Performed By: #### L 100.0500, L500.2500 ####[facility] [address] [place], [address] RDW SD 47.7 fl High 35.1-43.9 [facility] Comment on above: Performed By: #### L 100.0500, L500.2500 ####[facility] [address] [place], [address] WBC (Bld) [#/Vol] 7.8 10*3/uL Normal 4.4-11.[address] [facility] Comment on above: Performed By: #### L 100.0500, L500.2500 ####[facility] [address] [place], [address] Ferritinon 12-12-2023 Ferritin [Mass/Vol] 187 ng/mL Normal 8-252 [facility] Comment on above: Order Comment: Has Evelin solorzano had X-rays with Contrast this admission? NN Performed By: #### L 100.0100, L500.4050 #### [facility] [address] [place], [address] Folates, (Folic Acid)on 12-03 FOLATES 16.00 ng/mL Normal 3.1-55.4 [facility] Comment on above: Order Comment: Has Evelin solorzano had X-rays with Contrast this admission? NN Performed By: #### L 100.0100, L500.4050 #### [facility] [address] [place], [address] Iron measurement (mass/mass) Ordered By: Tahir Rivas on 12-12-2023 Iron (Unsp spec) [Mass/Mass] 85 ug/dL 50-170 [facility] Iron+Iron Binding Capacityon 12-12-2023 Iron [Mass/Vol] 85 ug/dL Normal 50-170 [facility] Comment on above: Order Comment: Has Evelin solorzano had X-rays with Contrast this admission? NN Performed By: #### L 100.0100, L500.4050 #### [facility] [address] [place], [address] IRON SATURATION 35.9 Normal 15.0-55.0 [facility] Comment on above: Order Comment: Has Evelin solorzano had X-rays with Contrast this admission? NN Performed By: #### L 100.0100, L500.4050 #### [facility] [address] [place], [address] TIBC 237 ug/dL Low 250-450 [facility] Comment on above: Order Comment: Has Evelin solorzano had X-rays with Contrast this admission? NN Performed By: #### L 100.0100, L500.4050 #### [facility] [address] [place], [address] Laboratory - Chemistry and C hemistry - challengeOrdered By: Tahir Rivas on 12-12-2023 CO2 [Moles/Vol] 29.0 mmol/L 21.0-32.0 [facility] Cobalamin (Vitamin B12) [Mass/Vol] 1452 pg/mL 211-911 [facility] Ferritin [Mass/Vol] 187 ng/mL 8-252 [facility] Urea nitrogen/Creatinine [Mass ratio] 47.0 mg/mg 10-20 [facility] No Panel InformationOrdered By: Tahir Rivas on 12-12-2023 Estimated Creatinine Clearance Calc 49.24 ml/min [facility] Estimated GFR (MDRD) Amer 96 mL/min >60 [facility] Comment on above: GFR Calc Estimated GFR (MDRD) Non-Af Amer 80 mL/min >60 [facility] Comment on above: Non- GFR Calc Folate 16.00 ng/mL 3.1-55.4 [facility] Total Iron Binding Capacity 237 ug/dL 250-450 [facility] Serum or plasma calcium haris urement (mass/volume)Ordered By: Tahir Rivas on 12-12-2023 Calcium [Mass/Vol] 8.6 mg/dL 8.5-10.[address] [facility] Serum or plasma creatinine m easurement (mass/volume)Ordered By: Tahir Rob on 12-12-2023 Creatinine [Mass/Vol] 0.74 mg/dL 0.55-1.02 [facility] Comment on above: The validity of the calculated GFR & GFRAA in patients over 70 years has not been determined. Clinical correlation is essential. Serum or plasma iron saturat ion measurement (mass fraction)Ordered By: Tahir Rivas on 12-12-2023 Iron saturation [Mass fraction] 35.9 % 15.0-55.0 [facility] Serum or plasma urea nitroge n measurement (mass/volume)Ordered By: Tahir Rob on 12-12-2023 Urea nitrogen [Mass/Vol] 35 mg/dL 7-18 [facility] Thin prep Papanicolaou smear with manual screeningOrdered By: Tahir Rivas on 12-12-2023 Thin prep Papanicolaou smear with manual screening 3 5-15 [facility] Abdomen/Pelvis W IV Cont ONL Yon 12-11-2023 Abdomen/Pelvis W IV Cont ONLY [facility] Imaging Services [address] [place] [address] Abdomen/Pelvis W IV Cont ONLY MR#: [id number] Acct: [id number] Name: KELLIE DOZIER Rep #: [id number] : 1945 F 78 From: Bryan Dumas PCP: Dr. Santo Love MD Status: [facility] ER Study: Abdomen/Pelvis W IV Cont ONLY Date of Exam: Exam# [id number] Ordering Dr: Panchito Zavaleta MD [id number] STUDY: CT ABDOMEN AND PELVIS WITH CONTRAST [...] Panchito Zavaleta MD; Dr. Santo Love MD Complaint Manager: Signed Normal [facility] Absolute lymphocyte countOrd ered By: Panchito Zavaleta on 12-11-2023 Lymphocytes Auto (Unsp spec) [#/Vol] 0.95 10*3/uL 0.83-4.51 [facility] Automated lymphocyte count a s percentage of total leukocytesOrdered By: Panchito Zavaleta on 12-11-2023 Lymphocytes/100 WBC Auto (Unsp spec) 7.0 % 19-41 [facility] Basophil percentageOrdered B y: Panchito Zavaleta on 12-11-2023 Basophil percentage 0-5 SEEN /hpf 0-5 [facility] Basophils/100 WBC (Bld) 0.3 % 0-1 [facility] Bilirubin [Mass/Vol] 0.40 mg/dL 0.20-1.00 [facility] Comment on above: For patients on eltr ombopag therapy, use of Dimension Moore TBIL is not recommended. Chloride [Moles/Vol] 103 mmol/L 98-107 [facility] Eosinophils/100 WBC (Bld) 0.1 % 0-5 [facility] Glucose [Mass/Vol] 317 mg/dL 74-[address] [facility] Comment on above: Glucose result great er than or equal to 200 mg/dLsuggests DIABETES MELLITUS per A.D.A. criteria. Hemoglobin (Bld) [Mass/Vol] 10.8 g/dL 12.0-15.0 [facility] Monocytes/100 WBC (Bld) 6.2 % 0-10 [facility] Neutrophils (Bld) [#/Vol] 11.7 10*3/uL 2.0-7.7 [facility] Neutrophils/100 WBC (Bld) 86.0 % 47-70 [facility] Potassium [Moles/Vol] 4.2 mmol/L 3.5-5.1 [facility] Protein [Mass/Vol] 6.5 g/dL 6.4-8.[address] [facility] Sodium [Moles/Vol] 140 mmol/L 136-[address] [facility] WBC (Bld) [#/Vol] 13.6 10*3/uL 4.4-11.0 [facility] Bedside Glucoseon 12-11-2023 FINGERSTICK GLU 185 mg/dL High 74-106 [facility] Comment on above: Result Comment: SYDNEY ANDERSON OF PATIENT CARE PER NURSING PROTOCOL Performed By: #### L 501.080 #### [facility] Laboratory [address] [place], [address] FINGERSTICK GLU 205 mg/dL High 74-106 [facility] Comment on above: Result Comment: SYDNEY ANDERSON OF PATIENT CARE PER NURSING PROTOCOL Performed By: #### L 501.080 ####[facility] [address] [place], [address] Bilirubin Test strip Ql (U)O rdered By: Panchito Zavaleta on 12-11-2023 Bilirubin Ql (U) 1 mg/dL Negative [facility] Comment on above: COLOR OF URINE MAY A FFECT DIPSTICK RESULTS. CBC W/Diff, Automatedon Absolute Lymph 0.95 X10 3/uL Normal 0.83-4.51 [facility] Comment on above: Performed By: #### L 100.0100, L500.4050 #### [facility] Laboratory [address] [place], [address] Absolute Neut 11.7 X10 3/uL High 2.0-7.7 [facility] Comment on above: Performed By: #### L 100.0100, L500.4050 #### [facility] [address] [place], [address] Basophils/100 WBC (Bld) 0.3 % Normal 0-1 [facility] Comment on above: Performed By: #### L 100.0100, L500.4050 #### [facility] [address] [place], [address] Eosinophils/100 WBC (Bld) 0.1 % Normal 0-5 [facility] Comment on above: Performed By: #### L 100.0100, L500.4050 #### [facility] [address] [place], [address] Erythrocyte distribution width (RBC) [Ratio] 13.6 % Normal 11.6-14.6 [facility] Comment on above: Performed By: #### L 100.0100, L500.4050 #### [facility] Laboratory [address] [place], [address] Hematocrit (Bld) [Volume fraction] 33.1 % Low 37-47 [facility] Comment on above: Performed By: #### L 100.0100, L500.4050 #### [facility] [address] [place], [address] Hemoglobin (Bld) [Mass/Vol] 10.8 g/dL Low 12.0-15.0 [facility] Comment on above: Performed By: #### L 100.0100, L500.4050 #### [facility] [address] [place], [address] IG% 0.400 Normal 0.0-0.9 [facility] Comment on above: Result Comment: IG% - Immature Granulocytes (promyelocytes, myelocytes and metamyelocytes) > 1% indicates that a LEFT SHIFT is Present. Performed By: #### L 100.0100, L500.4050 #### [facility] Laboratory [address], [address] Lymphocytes/100 WBC (Bld) 7.0 % Low 19-41 [facility] Comment on above: Performed By: #### L 100.0100, L500.4050 #### [facility] [address] [place], [address] MCH (RBC) [Entitic mass] 29.8 pg Normal 27.0-32.0 [facility] Comment on above: Performed By: #### L 100.0100, L500.4050 #### [facility] [address] [place], [address] MCHC (RBC) [Mass/Vol] 32.6 g/dL Normal 32-36 [facility] Comment on above: Performed By: #### L 100.0100, L500.4050 #### [facility] [address] [place], [address] MCV (RBC) [Entitic vol] 91.2 fL Normal 81-99 [facility] Comment on above: Performed By: #### L 100.0100, L500.4050 #### [facility] [address] [place], [address] Monocytes/100 WBC (Bld) 6.2 % Normal 0-10 [facility] Comment on above: Performed By: #### L 100.0100, L500.4050 #### [facility] Laboratory [address] [place], [address] Neutrophils/100 WBC (Bld) 86.0 % High 47-70 [facility] Comment on above: Performed By: #### L 100.0100, L500.4050 #### [facility] [address] [place], [address] Nucleated RBC (Bld) [#/Vol] 0 10*3/uL Normal 0-5 [facility] Comment on above: Performed By: #### L 100.0100, L500.4050 #### [facility] [address] [place], [address] Platelet mean volume (Bld) [Entitic vol] 10.3 fL Normal 6.2-12.0 [facility] Comment on above: Performed By: #### L 100.0100, L500.4050 #### [facility] Laboratory [address] [place], [address] Platelets (Bld) [#/Vol] 244 10*3/uL Normal 150-450 [facility] Comment on above: Performed By: #### L 100.0100, L500.4050 #### [facility] Laboratory [address] [place], [address] RBC (Bld) [#/Vol] 3.63 10*6/uL Low 4.2-5.4 [facility] Comment on above: Performed By: #### L 100.0100, L500.4050 #### [facility] Laboratory [address] [place], [address] RDW SD 46.0 fl High 35.1-43.9 [facility] Comment on above: Performed By: #### L 100.0100, L500.4050 #### [facility] Laboratory [address] [place], [address] WBC (Bld) [#/Vol] 13.6 10*3/uL High 4.4-11.0 [facility] Comment on above: Performed By: #### L 100.0100, L500.4050 #### [facility] Laboratory [address] [place], [address] CBC-Complete Blood Cnt No Di ffon 12-11-2023 Erythrocyte distribution width (RBC) [Ratio] 13.7 % Normal 11.6-14.6 [facility] Comment on above: Performed By: #### L 501.080 #### [facility] Laboratory [address], [address] Hematocrit (Bld) [Volume fraction] 30.7 % Low 37-47 [facility] Comment on above: Performed By: #### L 501.080 #### [facility] Laboratory [address] [place], [address] Hemoglobin (Bld) [Mass/Vol] 10.0 g/dL Low 12.0-15.0 [facility] Comment on above: Performed By: #### L 501.080 #### [facility] Laboratory [address] [place], [address] MCH (RBC) [Entitic mass] 30.1 pg Normal 27.0-32.0 [facility] Comment on above: Performed By: #### L 501.080 #### [facility] Laboratory [address] [place], [address] MCHC (RBC) [Mass/Vol] 32.6 g/dL Normal 32-36 [facility] Comment on above: Performed By: #### L 501.080 #### [facility] [address] [place], [address] MCV (RBC) [Entitic vol] 92.5 fL Normal 81-99 [facility] Comment on above: Performed By: #### L 501.080 #### [facility] Laboratory [address] [place], [address] Platelet mean volume (Bld) [Entitic vol] 10.4 fL Normal 6.2-12.0 [facility] Comment on above: Performed By: #### L 501.080 #### [facility] Laboratory [address] [place], [address] Platelets (Bld) [#/Vol] 234 10*3/uL Normal 150-450 [facility] Comment on above: Performed By: #### L 501.080 #### [facility] Laboratory [address] [place], [address] RBC (Bld) [#/Vol] 3.32 10*6/uL Low 4.2-5.4 [facility] Comment on above: Performed By: #### L 501.080 #### [facility] [address] [place], [address] RDW SD 46.5 fl High 35.1-43.9 [facility] Comment on above: Performed By: #### L 501.080 #### [facility] Laboratory [address] [place], [address] WBC (Bld) [#/Vol] 13.0 10*3/uL High 4.4-11.0 [facility] Comment on above: Performed By: #### L 501.080 #### [facility] Laboratory [address], [address] Chest 1 View (Portable)on Chest 1 View (Portable) [facility] Imaging Services [address] [place] [address] Chest 1 View (Portable) MR#: [id number] Acct: [id number] Name: KELLIE DOZIER Rep #: [id number] : 1945 F 78 From: Bryan Dumas PCP: Dr. Santo Love MD Status: [facility] ER Study: Chest 1 View (Portable) Date of Exam: 12/11/23 Exam# [id number] Ordering Dr: Panchito aZvaleta MD [id number] INDICATION: trauma EXAMINATION/TECHNIQUE: X-RAY - XR Chest [...] Panchito Zavaleta MD; Dr. Santo Love MD Complaint Manager: Signed Normal [facility] Comprehensive Metabolic Prof ilon 12-11-2023 Albumin [Mass/Vol] 3.1 g/dL Low 3.2-5.[address] [facility] Comment on above: Performed By: #### L 100.0100, L500.4050 #### [facility] Laboratory [address] [place], [address] Albumin/Globulin [Mass ratio] 0.9 {ratio} Normal 0.9-2.4 [facility] Comment on above: Performed By: #### L 100.0100, L500.4050 #### [facility] Laboratory [address] [place], [address] ALK P 96 U/L Normal 45-117 [facility] Comment on above: Performed By: #### L 100.0100, L500.4050 #### [facility] Laboratory [address] [place], [address] ALT [Catalytic activity/Vol] 24 U/L Normal 13-56 [facility] Comment on above: Performed By: #### L 100.0100, L500.4050 #### [facility] Laboratory [address] [place], [address] AST [Catalytic activity/Vol] 16 U/L Normal 15-37 [facility] Comment on above: Performed By: #### L 100.0100, L500.4050 #### [facility] Laboratory [address] [place], [address] Bilirubin [Mass/Vol] 0.40 mg/dL Normal 0.20-1.00 [facility] Comment on above: Result Comment: For patients on eltrombopag therapy, use of Dimension Moore TBIL is not recommended. Performed By: #### L 100.0100, L500.4050 #### [facility] Laboratory [address] [place], [address] BUN/CRE 37.8 RATIO High 10-20 [facility] Comment on above: Performed By: #### L 100.0100, L500.4050 #### [facility] Laboratory [address] [place], [address] CA,Total 9.1 mg/dL Normal 8.5-10.1 [facility] Comment on above: Performed By: #### L 100.0100, L500.4050 #### [facility] Laboratory [address] [place], [address] Chloride [Moles/Vol] 103 mmol/L Normal 98-107 [facility] Comment on above: Performed By: #### L 100.0100, L500.4050 #### [facility] Laboratory [address] [place], [address] CO2 [Moles/Vol] 27.0 mmol/L Normal 21.0-32.0 [facility] Comment on above: Performed By: #### L 100.0100, L500.4050 #### [facility] Laboratory [address] [place], [address] Creatinine [Mass/Vol] 0.98 mg/dL Normal 0.55-1.02 [facility] Comment on above: Result Comment: The validity of the calculated GFR GFRAA in patients over 70 years has not been determined. Clinical correlation is essential. Performed By: #### L 100.0100, L500.4050 #### [facility] Laboratory [address] [place], [address] EST GFR - AA 70 mL/min Normal >60 [facility] Comment on above: Result Comment: Afri can Austrian GFR Calc Performed By: #### L 100.0100, L500.4050 #### [facility] Laboratory [address] [place], [address] GAP 10 Normal 5-15 [facility] Comment on above: Performed By: #### L 100.0100, L500.4050 #### [facility] Laboratory [address] [place], [address] GFR/1.73 sq M.predicted among non-blacks MDRD (S/P/Bld) [Vol rate/Area] 58 mL/min/{1.73_m2} Low >60 [facility] Comment on above: Result Comment: Non- GFR Calc Performed By: #### L 100.0100, L500.4050 #### [facility] Laboratory [address] [place], [address] Globulin (S) [Mass/Vol] 3.4 g/dL Normal 2.2-4.2 [facility] Comment on above: Performed By: #### L 100.0100, L500.4050 #### [facility] Laboratory [address] [place], [address] Glucose [Mass/Vol] 317 mg/dL High 74-[address] [facility] Comment on above: Result Comment: Gluc ose result greater than or equal to 200 mg/dL suggests DIABETES MELLITUS per A.D.A. criteria. Performed By: #### L 100.0100, L500.4050 #### [facility] Laboratory [address] [place], [address] Potassium [Moles/Vol] 4.2 mmol/L Normal 3.5-5.1 [facility] Comment on above: Performed By: #### L 100.0100, L500.4050 #### [facility] Laboratory [address] [place], [address] Sodium [Moles/Vol] 140 mmol/L Normal 136-[address] [facility] Comment on above: Performed By: #### L 100.0100, L500.4050 #### [facility] [address] [place], [address] T PROT 6.5 g/dL Normal 6.4-8.2 [facility] Comment on above: Performed By: #### L 100.0100, L500.4050 #### [facility] Laboratory [address] [place], [address] Urea nitrogen [Mass/Vol] 37 mg/dL High 7-18 [facility] Comment on above: Performed By: #### L 100.0100, L500.4050 #### [facility] Laboratory [address] [place], [address] Determination of erythrocyte mean corpuscular volume (MCV)Ordered By: Panchito Zavaleta on 12-11-2023 MCV (RBC) [Entitic vol] 91.2 fL 81-99 [facility] Emergency Department Summary on 12-11-2023 Emergency Department Summary [facility] Medical Records Department [address] [place] [address] Emergency Department Summary 12/11/23 MR#: [id number] Acct: [id number] Name: KELLIE DOZIER MARIETTA Rep #: [id number] : 1945 78 From: Panchito Zavaleta MD PCP: Dr. Santo Love MD Status:ADM IN Location: [place] [address] HPI HPI - GI History of Present [...] injury. She has a history of an [place] with stents in her heart as well as A-fib for which she is on Eliquis. Last dose was a little more than 24 hours ago has not taken her morning medications due to vomiting this morning. [facility] Medical History Atherosclerotic heart disease of [place] coronary artery without angina pectoris Essential hypertension [...] rash Neurolog (more content not included)... Normal [facility] Erythrocyte distribution wid th ratioOrdered By: Panchito Zavaleta on 12-11-2023 Erythrocyte distribution width (RBC) [Ratio] 13.6 % 11.6-14.6 [facility] Erythrocyte distribution wid th standard deviationOrdered By: Panchito Zavaleta on 12-11-2023 Erythrocyte distribution width (RBC) [Entitic vol] 46.0 fL 35.1-43.9 [facility] H AND P Exam - Hospitaliston 12-11-2023 H&P Exam - Hospitalist [facility] Medical Records Department [address] [place] [address] H P Exam - Hospitalist 12/11/23 1137 MR#: [id number] Acct: [id number] Name: KELLIE DOZIER Rep #: [id number] : 1945 78 From: Tahir Rivas DO PCP: Dr. Santo Love MD Status:ADM IN Location: [place] [address] HPI - General General Date of Admission: 12/11/23 Date of Service: 12/11/23 Chief Complaint: Hematemesis HPI Narrative KELLIE DOZIER, is a 78 F who presented to [facility] ED on 12/11/2023 with hematemesis. [...] chills. No other acute concerns this time. [facility] Medical History Atherosclerotic heart disease of [place] coronary artery without angina pectoris Essential hypertension [...] chest pain, (more content not included)... Normal [facility] Hematocrit Auto (Bld) [Volum e fraction]Ordered By: Panchito Zavaleta on 12-11-2023 Hematocrit (Bld) [Volume fraction] 33.1 % 37-47 [facility] Hemoglobin A1con 12-11-2023 HbA1c (Bld) [Mass fraction] 8.2 % High 3.8-5.6 [facility] Comment on above: Result Comment: Norm al < 5.7 % Prediabetic 5.7 - 6.4 % Diabetic >or= 6.5 % Please note range changes. Performed By: #### L 501.080 #### [facility] Laboratory [address] [place] [address]. [place], [address] Immature granulocytes/100 WB C Auto (Bld)Ordered By: Panchito Zavaleta on 12-11-2023 Immature granulocytes/100 WBC (Bld) 0.400 % 0.0-0.9 [facility] Comment on above: IG% - Immature Granu locytes (promyelocytes, myelocytes and metamyelocytes) > 1% indicates that a LEFT SHIFT is Present. Ketones Test strip Ql (U)Ord ered By: Panchito Zavaleta on 12-11-2023 Ketones Ql (U) 150 mg/dl Negative [facility] Comment on above: RESULTS CALLED TO [facility] [place] 12/11/23 Ish1 Shannan Holland.REPORT READ BACK BY SAME.CRITICAL VALUE *H Laboratory - Chemistry and C hemistry - challengeOrdered By: Panchito Zavaleta on 12-11-2023 Albumin/Globulin [Mass ratio] 0.9 {ratio} 0.9-2.4 [facility] ALP [Catalytic activity/Vol] 96 U/L 45-117 [facility] ALT [Catalytic activity/Vol] 24 U/L 13-56 [facility] CO2 [Moles/Vol] 27.0 mmol/L 21.0-32.0 [facility] Globulin (S) [Mass/Vol] 3.4 g/dL 2.2-4.2 [facility] Urea nitrogen/Creatinine [Mass ratio] 37.8 mg/mg 10-20 [facility] Laboratory - Hematology and Cell countsOrdered By: Panchito Zavaleta on 12-11-2023 MCH (RBC) [Entitic mass] 29.8 pg 27.0-32.0 [facility] MCHC (RBC) [Mass/Vol] 32.6 g/dL 32-36 [facility] Nucleated RBC/100 WBC (Bld) [Ratio] 0 % 0-5 [facility] Platelet mean volume (Bld) [Entitic vol] 10.3 fL 6.2-12.0 [facility] Platelets (Bld) [#/Vol] 244 10*3/uL 150-450 [facility] MR/CON.PCM.GIon 12-11-2023 MR/CON.PCM.GI [facility] Medical Records Department [address] [place] [address] Consultation - GI 12/11/232028 MR#: [id number] Acct: [id number] Name: KELLIE DOZIER MARIETTA Rep #: [id number] : 1945 78 From: Cullen Friend DO PCP: Dr. Santo Love MD Status:ADM IN Location: [facility] [id number] HPI Consult Data Date of Consult: 12/11/23 [...] injury. She has a history of an [place] with stents in her heart as well as A-fib for which she is on Eliquis. Last dose was a little more than 24 hours ago has not taken her morning medications due to vomiting this morning Her last hgb was 12 severall years ago prior to being admitted today. Her hgb today is 10.2. [facility] Medical History Atherosclerotic heart disease of [place] coronary artery without angina pectoris Essential hypertension [...] Reports hemate (more content not included)... Normal [facility] Mucus LM Ql (Urine sed)Order ed By: Panchito Zavaleta on 12-11-2023 Mucus Ql (Urine sed) 1+ /hpf [facility] Nitrite Test strip Ql (U)Ord ered By: Panchito Zavaleta on 12-11-2023 Nitrite Ql (U) Negative Negative [facility] No Panel InformationOrdered By: Panchito Zavaleta on 12-11-2023 Urine RBC 0-5 SEEN /hpf 0-5 [facility] Estimated GFR (MDRD) Amer 70 mL/min >60 [facility] Comment on above: GFR Calc Estimated GFR (MDRD) Non-Af Amer 58 mL/min >60 [facility] Comment on above: Non- GFR Calc Protein Test strip Ql (U)Ord ered By: Panchito Zavaleta on 12-11-2023 Protein Ql (U) 15 mg/dl Negative [facility] RBC Auto (Bld) [#/Vol]Ordere d By: Panchito Zavaleta on 12-11-2023 RBC (Bld) [#/Vol] 3.63 10*6/uL 4.2-5.4 [facility] Serum or plasma calcium haris urement (mass/volume)Ordered By: Panchito Zavaleta on 12-11-2023 Calcium [Mass/Vol] 9.1 mg/dL 8.5-10.[address] [facility] Serum or plasma creatinine m easurement (mass/volume)Ordered By: Panchito Zavaleta on 12-11-2023 Creatinine [Mass/Vol] 0.98 mg/dL 0.55-1.02 [facility] Comment on above: The validity of the calculated GFR & GFRAA in patients over 70 years has not been determined. Clinical correlation is essential. Serum or plasma urea nitroge n measurement (mass/volume)Ordered By: Panchito Zavaleta on 12-11-2023 Urea nitrogen [Mass/Vol] 37 mg/dL 7-18 [facility] Squamous epithelial cells de tection in urine sediment by light microscopyOrdered By: Panchito Zavaleta on 12-11-2023 Epithelial cells.squamous LM Ql (Urine sed) 0-5 SEEN /hpf 5-10 [facility] Thin prep Papanicolaou smear with manual screeningOrdered By: Panchito Zavaleta on 12-11-2023 Thin prep Papanicolaou smear with manual screening 3.1 g/dL 3.2-5.0 [facility] Thin prep Papanicolaou smear with manual screening 16 U/L 15-37 [facility] Thin prep Papanicolaou smear with manual screening 10 5-15 [facility] Type AND Screenon 12-11-2023 ABO and Rh group Nom (Bld) Blood group A Rh(D) positive Normal [facility] Comment on above: Order Comment: HGI Performed By: #### L 501.080 #### [facility] Laboratory [address] [place], [address] Urinalysis, Completeon 12-11 BACTERIA RARE Normal None Seen [facility] Comment on above: Order Comment: CLEAN CATCH Performed By: #### L 501.080 #### [facility] Laboratory [address] [place], [address] EPI,SQUAMOUS 0-5 SEEN Normal 5-10 [facility] Comment on above: Order Comment: CLEAN CATCH Performed By: #### L 501.080 #### [facility] Laboratory [address] [place], [address] Mucus Ql (Urine sed) 1+ /hpf Normal [facility] Comment on above: Order Comment: CLEAN CATCH Performed By: #### L 501.080 #### [facility] [address] [place], [address] RBC 0-5 SEEN Normal 0-5 [facility] Comment on above: Order Comment: CLEAN CATCH Performed By: #### L 501.080 #### [facility] [address] [place], [address] WBC 0-5 SEEN Normal 0-5 [facility] Comment on above: Order Comment: CLEAN CATCH Performed By: #### L 501.080 #### [facility] Laboratory [place], [address] Urine blood detectionOrdered By: Panchito Zavaleta on 12-11-2023 RBC Ql (U) Negative Negative [facility] Urine clarityOrdered By: Martina Zavaleta on 12-11-2023 Clarity (U) Sl. Cloudy Clear [facility] Urine color determinationOrd ered By: Panchito Zavaleta on 12-11-2023 Color (U) Yellow Yellow [facility] Urine glucose detectionOrder ed By: Panchito Zavaleta on 12-11-2023 Glucose Ql (U) 1000 mg/dl Normal [facility] Urine leukocyte esterase det ection by dipstickOrdered By: Panchito Zavaleta on 12-11-2023 Leukocyte esterase Test strip Ql (U) 25 /ul Negative [facility] Urine pHOrdered By: Panchito Zavaleta on 12-11-2023 pH (U) 5.0 [pH] 5.0 - 8.0 [facility] Urine sediment bacteria coun t by microscopy (number/high power field)Ordered By: Panchito Zavaleta on 12-11-2023 Bacteria LM.HPF (Urine sed) [#/Area] RARE /hpf None Seen [facility] Urine specific gravity measu rementOrdered By: Panhcito Zavaleta on 12-11-2023 Specific gravity (U) [Rel density] 1.015 1.002-1.03 0 [facility] Urine urobilinogen measureme ntOrdered By: Panchito Zavaleta on 12-11-2023 Urobilinogen Ql (U) Normal mg/dl Normal [facility] blood hemoglobin A1c/t otal hemoglobin ratio (mass fraction)Ordered By: Tahir Rivas on 12-11-2023 HbA1c (Bld) [Mass fraction] 8.2 % 3.8-5.6 [facility] Comment on above: Normal < 5.7 % Predi abetic 5.7 - 6.4 % Diabetic >or= 6.5 % Please note range changes. GENEVA SCREENINGon 07-02-2023 [facility] CBC W Auto Differential pane l (Bld)on 05-07-2023 Basophils (Bld) [#/Vol] 0.08 10*3/uL <0.11 k/uL [facility] Basophils/100 WBC (Bld) 1.0 % [facility] Differential cell count method Nom (Bld) Auto [facility] Eosinophils (Bld) [#/Vol] 0.15 10*3/uL <0.46 k/uL [facility] Eosinophils/100 WBC (Bld) 1.9 % [facility] Erythrocyte distribution width (RBC) [Ratio] 13.4 % 11.5 - 15.0 % [facility] Hematocrit (Bld) [Volume fraction] 39.0 % 36.0 - 46.0 % [facility] Hemoglobin (Bld) [Mass/Vol] 12.7 g/dL 11.5 - 15.5 g/dL [facility] Immature granulocytes (Bld) [#/Vol] 0.04 10*3/uL <0.10 k/uL [facility] Immature granulocytes/100 WBC (Bld) 0.5 % [facility] Lymphocytes (Bld) [#/Vol] 1.78 10*3/uL 1.00 - 4.00 k/uL [facility] Lymphocytes/100 WBC (Bld) 22.7 % [facility] MCH (RBC) [Entitic mass] 30.5 pg 26.0 - 34.0 pg [facility] MCHC (RBC) [Mass/Vol] 32.6 g/dL 30.5 - 36.0 g/dL [facility] MCV (RBC) [Entitic vol] 93.8 fL 80.0 - 100.0 fL [facility] Monocytes (Bld) [#/Vol] 0.73 10*3/uL <0.87 k/uL [facility] Monocytes/100 WBC (Bld) 9.3 % [facility] Neutrophils (Bld) [#/Vol] 5.07 10*3/uL 1.45 - 7.50 k/uL [facility] Neutrophils/100 WBC (Bld) 64.6 % [facility] Nucleated RBC (Bld) [#/Vol] <0.01 k/uL [facility] Nucleated RBC/100 WBC (Bld) [Ratio] 0.0 /100 WBC [facility] Platelet mean volume (Bld) [Entitic vol] 10.9 fL 9.0 - 12.7 fL [facility] Platelets (Bld) [#/Vol] 223 10*3/uL 150 - 400 k/uL [facility] RBC (Bld) [#/Vol] 4.16 10*6/uL 3.90 - 5.20 m/uL [facility] WBC (Bld) [#/Vol] 7.85 10*3/uL 3.70 - 11.00 k/uL [facility] HbA1c (Bld)on 01-29-2023 Average glucose Estimated from glycated hemoglobin (Bld) [Mass/Vol] 166 mg/dL [facility] HbA1c (Bld) [Mass fraction] 7.4 % High 4.3 - 5.6 % [facility] GENEVA SCREENINGon 05-30-2022 [facility] DXA-AXIAL SKELETONon 022 [facility] EMERGENCY REPORTon EMERGENCY REPORT [facility] EMERGENCY ROOM REPORT NAME ACCOUNT SEX AGE ADMIT DISCHARGE PT MED. RECORD# NUMBER DATE DATE TYPE YELENA [id number] F [id number] 11/29/20 11/29/20 3 KELLIE Acuna [id number] ROOM: ER DATE OF : 1945 DICTATING [...] Jack Meyer DO 11/29/20 10:44 JOB #: [id number] Transcribed By: am 11/29/20 12:04 Electronically signed by: E-SIGN: Jack Meyer D.O. 12/06/20 08:23 Page 1 of 1 KELLIE DOZIER Emergency Room Report Normal [facility] EMERGENCY REPORT [facility] EMERGENCY ROOM REPORT NAME ACCOUNT SEX AGE ADMIT DISCHARGE PT MED. RECORD# NUMBER DATE DATE TYPE YELENA, [id number] F [id number] 11/29/20 3 KELLIE Acuna [id number] ROOM: ER DATE OF : 1945 DICTATING [...] Jack Meyer DO 11/29/20 10:15 JOB #: [id number] Transcribed By: eva 11/29/20 10:55 Electronically signed by: E-SIGN: Jack Meyer D.O. 12/06/20 08:23 Page 1 of 1 KELLIE DOZIER Emergency Room Report Normal [facility] EMERGENCY REPORT [facility] EMERGENCY ROOM REPORT NAME ACCOUNT SEX AGE ADMIT DISCHARGE PT MED. RECORD# NUMBER DATE DATE TYPE YELENA [id number] F [id number] 11/29/20 11/29/20 3 KELLIE Acuna [id number] ROOM: ER DATE OF : 1945 DICTATING [...] Jack Meyer DO 11/29/20 11:30 JOB #: [id number] Transcribed By: marcella 11/29/20 11:50 Electronically signed by: E-SIGN: Jack Meyer D.O. 12/06/20 08:23 Page 1 of 1 KELLIE DOZIER Emergency Room Report [facility] 02-12-2018 [facility] Office Visit (AGCARDWST) ----KELLIE DOZIER ([id number]) 1945 [facility] Time Provider Department02/12/18 11:30 AM [...] - metBeta librado for ASHD with prior [place] or prior LVEFANDlt;40 (NQF 0070) - N/ABeta [...] verbalizesunderstanding and agrees with treatment plan.DIAGNOSIS FOR VISIT:[facility]ISTORY OF PRESENT ILLNESSKellie Dozier returns for follow-up [...] as directed.COMPOUNDED PRESCRIPTION INR standing orderFax to [phone]: atrial fiblisinopril (ZESTRIL, PRINIVIL) 20 mg tablet [...] mouth oncedaily.COMPOUNDED PRESCRIPTION Standing order inrFax to [phone]: A fibdiphenhydrAMINE (BENADRYL) 25 mg capsule Take [...] TAB) Take one(1) tablet daily.COMPOUNDED PRESCRIPTION vitamin g41SLLTPQD + D 600 MG-200 UNIT TAB Take [...] LDL was 82.Electronically Signed:Ashley Kenney 2017 11:56 [facility]: Silvana Muir MD 02/12/2018 11:58 AM SignedCheck [...] programs in your area.Referring Provider: DANIEL MARCELO [[id number]]Allergies As of Date: 02/12/2018 Noted Allergy ReactionAMOXICILLIN 07/23/2007 6 - DiarrheaMETFORMIN 04/02/2007 6 - DiarrheaSHELLFISH 06/17/2008 6 - Diarrhea 11 - VomitingDate Reviewed: 02/12/2018Reviewed by: Lisa Stephenson - Fully AssessedReason for Visit: Follow Up [171]Primary Visit Diagnosis:ASHD (arteriosclerotic heart disease) [I25.10] Other Visit Diagnosis:PAF (paroxysmal atrial fibrillation) ([facility]) [I48.0]Order(s):nitroglycerin sublingual (NITROSTAT) 0.4 mg SL tabletDissolve 1 tablet under the tongue as needed for Chest Pain. If no pain relief call 911.Disp: 25 Bottle of 25Rfl: 3 MAGNESIUM BLD [SQMG1] Order #: [id number] FUTURE LIPID PANEL BASIC [SQLIPB] Order #: [id number] FUTUREPrescriptions as of 02/12/2018 Sig: WARFARIN 5 [...] [D12.6] INVALID FOR* Diverticulitis [K57.92] INVALID FOR* 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 anticoagulant [Z79.01]INVALID FOR* Persistent atrial fibrillation (HCC) [I48.1] INVALID FOR* Other instructions from your clinician: Check on cost of Eliquis versus Xarelto LIFESTYLE CHANGE A healthy lifestyle is the most important component of your overall treatment plan. Please give serious thought to the following areas and commit to making manager intermediate changes. EAT A WHOLE FOOD, PLANT BASED [...] Status:Closed by DANIEL MARCELO MD on 02/13/18 [facility] PROGRESSon 02-12-2018 Protein mass conc HNO ID: [id number] thor: Daniel Arreola: (none)Author Type: PhysicianType: Progress NotesFiled: 02/13/2018 3:18 PMNote Text:PERTINENT CARDIAC HISTORYASHD - PCI RCA and LAD, 2009PAFHTNHLDMSVTMobitz I 2nd degree AVBADHERENCE TO GUIDELINESACE-I or ARB for HF with prior LVEF<40 (NQF 0081) - N/AASA or Plavix for ASHD (NQF 0067) - metBeta librado for ASHD with prior [place] or prior LVEF<40 (NQF 0070) - N/ABeta [...] or asdirected.COMPOUNDED PRESCRIPTION INR standing orderFax to [phone]: atrialfiblisinopril (ZESTRIL, PRINIVIL) 20 mg tablet TAKE [...] mouthonce daily.COMPOUNDED PRESCRIPTION Standing order inrFax to [phone]: A fibdiphenhydrAMINE (BENADRYL) 25 mg capsule Take [...] TAB) Take one(1) tablet daily.COMPOUNDED PRESCRIPTION vitamin b35VRTPISJ + D 600 MG-200 UNIT TAB Take [...] LDL was 82.Electronically Signed:Ashley Kenney 2017 11:56 [facility]: Santo Love MD [facility] Vital Signs Date Time Vital Sign Value Performing Clinician Facility 05-29-2025 11:40-0400 Diastolic blood pressure 69 mm[Hg] Juliana Davis APRN.SALES ACCOUNT SPECIALIST Work Phone: [facility] Comment on above: Average: Kaitlin BP 05-29-2025 11:40-0400 Heart rate 66 /min Juliana Davis APRN.SALES ACCOUNT SPECIALIST Work Phone: [facility] 05-29-2025 11:40-0400 Systolic blood pressure 124 mm[Hg] Juliana Davis APRN.SALES ACCOUNT SPECIALIST Work Phone: [facility] Comment on above: Average: Kaitlin BP 05-29-2025 11:34-0400 Body mass index (BMI) [Ratio] 26.61 kg/m2 Juliana Davis APRN.SALES ACCOUNT SPECIALIST Work Phone: [facility] 05-29-2025 11:34-0400 Body weight 70.31 kg Juliana Suzanneparris WASTE COLLECTION DRIVER.SALES ACCOUNT SPECIALIST Work Phone: [facility] 05-29-2025 11:34-0400 SaO2% (BldA) [Mass fraction] 96 % Juliana Davis WASTE COLLECTION DRIVER.SALES ACCOUNT SPECIALIST Work Phone: [facility] 05-09-2025 10:52-0400 Diastolic blood pressure 76 mm[Hg] Zari Sorenson MD Work Phone: [facility] 05-09-2025 10:52-0400 Heart rate 71 /min Zari Sorenson MD Work Phone: [facility] 05-09-2025 10:52-0400 Respiratory rate 15 /min Zari Sorenson MD Work Phone: [facility] 05-09-2025 10:52-0400 SaO2% (BldA) [Mass fraction] 96 % Zari Sorenson MD Work Phone: [facility] 05-09-2025 10:52-0400 Systolic blood pressure 158 mm[Hg] Zari Sorenson MD Work Phone: [facility] 05-09-2025 09:24-0400 Body mass index (BMI) [Ratio] 26.68 kg/m2 Zari Sorenson MD Work Phone: [facility] 05-09-2025 09:24-0400 Body temperature 97.9 [degF] Zari Sorenson MD Work Phone: [facility] 05-09-2025 09:24-0400 Body weight 70.5 kg Zari Sorenson MD Work Phone: [facility] 05-04-2025 10:29-0400 Body mass index (BMI) [Ratio] 26.67 kg/m2 Elizabeth Ortega WASTE COLLECTION DRIVER.SALES ACCOUNT SPECIALIST Work Phone: [facility] 05-04-2025 10:29-0400 Body weight 70.49 kg Elizabeth Ortega WASTE COLLECTION DRIVER.SALES ACCOUNT SPECIALIST Work Phone: [facility] 05-04-2025 10:29-0400 Diastolic blood pressure 70 mm[Hg] Elizabeth Reilly WASTE COLLECTION DRIVER.SALES ACCOUNT SPECIALIST Work Phone: [facility] 05-04-2025 10:29-0400 Heart rate 62 /min Elizabeth Reilly WASTE COLLECTION DRIVER.SALES ACCOUNT SPECIALIST Work Phone: [facility] 05-04-2025 10:29-0400 Respiratory rate 14 /min Elizabeth Reilly WASTE COLLECTION DRIVER.SALES ACCOUNT SPECIALIST Work Phone: [facility] 05-04-2025 10:29-0400 SaO2% (BldA) [Mass fraction] 98 % Elizabeth Reilly WASTE COLLECTION DRIVER.SALES ACCOUNT SPECIALIST Work Phone: [facility] 05-04-2025 10:29-0400 Systolic blood pressure 146 mm[Hg] Elizabeth Reilly WASTE COLLECTION DRIVER.SALES ACCOUNT SPECIALIST Work Phone: [facility] 05-01-2025 14:27-0400 Diastolic blood pressure 65 mm[Hg] Raisa Haagen WASTE COLLECTION DRIVER.SALES ACCOUNT SPECIALIST Work Phone: [facility] Comment on above: KAITLIN BP 05-01-2025 14:27-0400 Heart rate 66 /min Raisa Haagen WASTE COLLECTION DRIVER.SALES ACCOUNT SPECIALIST Work Phone: [facility] 05-01-2025 14:27-0400 Systolic blood pressure 179 mm[Hg] Raisa Haagen WASTE COLLECTION DRIVER.SALES ACCOUNT SPECIALIST Work Phone: [facility] Comment on above: KAITLIN BP 05-01-2025 13:44-0400 Body mass index (BMI) [Ratio] 26.78 kg/m2 Raisa Haagen WASTE COLLECTION DRIVER.SALES ACCOUNT SPECIALIST Work Phone: [facility] 05-01-2025 13:44-0400 Body weight 70.76 kg Raisa Haagen WASTE COLLECTION DRIVER.SALES ACCOUNT SPECIALIST Work Phone: [facility] 05-01-2025 13:44-0400 Respiratory rate 16 /min Raisa Haagen WASTE COLLECTION DRIVER.SALES ACCOUNT SPECIALIST Work Phone: [facility] 05-01-2025 13:44-0400 SaO2% (BldA) [Mass fraction] 95 % Raisa Haagen WASTE COLLECTION DRIVER.SALES ACCOUNT SPECIALIST Work Phone: [facility] 03-07-2025 10:59-0400 Diastolic blood pressure 62 mm[Hg] Raisa Haagen WASTE COLLECTION DRIVER.SALES ACCOUNT SPECIALIST Work Phone: [facility] Comment on above: KAITLIN BP 03-07-2025 10:59-0400 Heart rate 55 /min Raisa Haagen WASTE COLLECTION DRIVER.SALES ACCOUNT SPECIALIST Work Phone: [facility] 03-07-2025 10:59-0400 Systolic blood pressure 133 mm[Hg] Raisa Haagen WASTE COLLECTION DRIVER.SALES ACCOUNT SPECIALIST Work Phone: [facility] Comment on above: KAITLIN BP 03-07-2025 10:47-0400 Respiratory rate 16 /min Riasa Haagen WASTE COLLECTION DRIVER.SALES ACCOUNT SPECIALIST Work Phone: [facility] 03-07-2025 10:47-0400 SaO2% (BldA) [Mass fraction] 94 % Raisa Haagen WASTE COLLECTION DRIVER.SALES ACCOUNT SPECIALIST Work Phone: [facility] 02-07-2025 11:23-0400 Diastolic blood pressure 67 mm[Hg] Raisa Haagen WASTE COLLECTION DRIVER.SALES ACCOUNT SPECIALIST Work Phone: [facility] Comment on above: KAITLIN BP 02-07-2025 11:23-0400 Heart rate 64 /min Raisa Haagen WASTE COLLECTION DRIVER.SALES ACCOUNT SPECIALIST Work Phone: [facility] 02-07-2025 11:23-0400 Systolic blood pressure 166 mm[Hg] Raisa Haagen WASTE COLLECTION DRIVER.SALES ACCOUNT SPECIALIST Work Phone: [facility] Comment on above: KAITLIN BP 02-07-2025 10:49-0400 Body mass index (BMI) [Ratio] 26.43 kg/m2 Raisa Haagen WASTE COLLECTION DRIVER.SALES ACCOUNT SPECIALIST Work Phone: [facility] 02-07-2025 10:49-0400 Body weight 69.85 kg Raisa Haagen WASTE COLLECTION DRIVER.SALES ACCOUNT SPECIALIST Work Phone: [facility] 02-07-2025 10:49-0400 Respiratory rate 16 /min Raisa Haagen WASTE COLLECTION DRIVER.SALES ACCOUNT SPECIALIST Work Phone: [facility] 02-07-2025 10:49-0400 SaO2% (BldA) [Mass fraction] 92 % Raisa Haagen WASTE COLLECTION DRIVER.SALES ACCOUNT SPECIALIST Work Phone: [facility] 12-13-2024 10:56-0500 Diastolic blood pressure 70 mm[Hg] Raisa Haagen WASTE COLLECTION DRIVER.SALES ACCOUNT SPECIALIST Work Phone: [facility] 12-13-2024 10:56-0500 Heart rate 55 /min Raisa Haagen WASTE COLLECTION DRIVER.SALES ACCOUNT SPECIALIST Work Phone: [facility] 12-13-2024 10:56-0500 Respiratory rate 16 /min Raisa Haagen WASTE COLLECTION DRIVER.SALES ACCOUNT SPECIALIST Work Phone: [facility] 12-13-2024 10:56-0500 SaO2% (BldA) [Mass fraction] 94 % Raisa Haagen WASTE COLLECTION DRIVER.SALES ACCOUNT SPECIALIST Work Phone: [facility] 12-13-2024 10:56-0500 Systolic blood pressure 128 mm[Hg] Raisa Haagen WASTE COLLECTION DRIVER.SALES ACCOUNT SPECIALIST Work Phone: [facility] 11-29-2024 10:43-0500 Body mass index (BMI) [Ratio] 25.23 kg/m2 Leonela Bear MD Work Phone: [facility] 11-29-2024 10:43-0500 Body weight 66.68 kg Leonela Bear MD Work Phone: [facility] 11-29-2024 10:43-0500 Diastolic blood pressure 62 mm[Hg] Leonela Bear MD Work Phone: [facility] 11-29-2024 10:43-0500 Heart rate 75 /min Leonela Bear MD Work Phone: [facility] 11-29-2024 10:43-0500 Respiratory rate 17 /min Leonela Bear MD Work Phone: [facility] 11-29-2024 10:43-0500 SaO2% (BldA) [Mass fraction] 97 % Leonela Bear MD Work Phone: [facility] 11-29-2024 10:43-0500 Systolic blood pressure 108 mm[Hg] Leonela Bear MD Work Phone: [facility] 11-19-2024 10:03-0500 Diastolic blood pressure 84 mm[Hg] Santo Love MD Work Phone: [facility] 11-19-2024 10:03-0500 Systolic blood pressure 170 mm[Hg] Santo Love MD Work Phone: [facility] 11-19-2024 09:34-0500 Body height 162.6 cm Santo Love MD Work Phone: [facility] 11-19-2024 09:34-0500 Body mass index (BMI) [Ratio] 25.23 kg/m2 Santo Love MD Work Phone: [facility] 11-19-2024 09:34-0500 Body weight 66.68 kg Santo Love MD Work Phone: [facility] 11-19-2024 09:34-0500 Heart rate 67 /min Santo Love MD Work Phone: [facility] 07-13-2024 11:28-0400 Body mass index (BMI) [Ratio] 24.03 kg/m2 Santo Love MD Work Phone: [facility] 07-13-2024 11:28-0400 Body weight 63.5 kg Santo Love MD Work Phone: [facility] 07-13-2024 11:28-0400 Diastolic blood pressure 62 mm[Hg] Santo Love MD Work Phone: [facility] 07-13-2024 11:28-0400 Heart rate 52 /min Santo Love MD Work Phone: [facility] 07-13-2024 11:28-0400 SaO2% (BldA) [Mass fraction] 97 % Santo Love MD Work Phone: [facility] 07-13-2024 11:28-0400 Systolic blood pressure 104 mm[Hg] Santo Love MD Work Phone: [facility] 06-20-2024 11:07-0400 Diastolic blood pressure 70 mm[Hg] Juliana Suppan WASTE COLLECTION DRIVER.SALES ACCOUNT SPECIALIST Work Phone: [facility] 06-20-2024 11:07-0400 Systolic blood pressure 120 mm[Hg] Juliana Suppan WASTE COLLECTION DRIVER.SALES ACCOUNT SPECIALIST Work Phone: [facility] 06-20-2024 10:46-0400 Body mass index (BMI) [Ratio] 23.86 kg/m2 Juliana Suppan WASTE COLLECTION DRIVER.SALES ACCOUNT SPECIALIST Work Phone: [facility] 06-20-2024 10:46-0400 Body weight 63.05 kg Juliana Suppan WASTE COLLECTION DRIVER.SALES ACCOUNT SPECIALIST Work Phone: [facility] 06-20-2024 10:46-0400 Heart rate 60 /min Juliana Suppan WASTE COLLECTION DRIVER.SALES ACCOUNT SPECIALIST Work Phone: [facility] 06-20-2024 10:46-0400 Respiratory rate 16 /min Juliana Suppan WASTE COLLECTION DRIVER.SALES ACCOUNT SPECIALIST Work Phone: [facility] 06-20-2024 10:46-0400 SaO2% (BldA) [Mass fraction] 97 % Juliana Suppan WASTE COLLECTION DRIVER.SALES ACCOUNT SPECIALIST Work Phone: [facility] 05-12-2024 10:07-0400 Body mass index (BMI) [Ratio] 23.52 kg/m2 Juliana Suppan WASTE COLLECTION DRIVER.SALES ACCOUNT SPECIALIST Work Phone: [facility] 05-12-2024 10:07-0400 Body weight 62.14 kg Juliana Suppan WASTE COLLECTION DRIVER.SALES ACCOUNT SPECIALIST Work Phone: [facility] 05-12-2024 10:07-0400 Diastolic blood pressure 56 mm[Hg] Juliana Suppan WASTE COLLECTION DRIVER.SALES ACCOUNT SPECIALIST Work Phone: [facility] 05-12-2024 10:07-0400 Heart rate 72 /min Juliana Suppan WASTE COLLECTION DRIVER.SALES ACCOUNT SPECIALIST Work Phone: [facility] 05-12-2024 10:07-0400 Respiratory rate 16 /min Juliana Davis WASTE COLLECTION DRIVER.SALES ACCOUNT SPECIALIST Work Phone: [facility] 05-12-2024 10:07-0400 SaO2% (BldA) [Mass fraction] 96 % Juliana Davis WASTE COLLECTION DRIVER.SALES ACCOUNT SPECIALIST Work Phone: [facility] 05-12-2024 10:07-0400 Systolic blood pressure 142 mm[Hg] Juliana Palaciosparris WASTE COLLECTION DRIVER.SALES ACCOUNT SPECIALIST Work Phone: [facility] 04-12-2024 15:21-0400 Body height 162.6 cm Santo Love MD Work Phone: [facility] 04-12-2024 15:21-0400 Body mass index (BMI) [Ratio] 23.52 kg/m2 Santo Love MD Work Phone: [facility] 04-12-2024 15:21-0400 Body weight 62.14 kg Santo Love MD Work Phone: [facility] 04-12-2024 15:21-0400 Diastolic blood pressure 74 mm[Hg] Santo Love MD Work Phone: [facility] 04-12-2024 15:21-0400 Heart rate 69 /min Santo Love MD Work Phone: [facility] 04-12-2024 15:21-0400 SaO2% (BldA) [Mass fraction] 98 % Santo Love MD Work Phone: [facility] 04-12-2024 15:21-0400 Systolic blood pressure 174 mm[Hg] Santo Love MD Work Phone: [facility] 02-22-2024 08:06-0400 Body mass index (BMI) [Ratio] 23.34 kg/m2 Leonela Bear MD Work Phone: [facility] 02-22-2024 08:06-0400 Body temperature 98.29 [degF] Leonela Bear MD Work Phone: [facility] 02-22-2024 08:06-0400 Body weight 61.69 kg Leonela Bear MD Work Phone: [facility] 02-22-2024 08:06-0400 Diastolic blood pressure 64 mm[Hg] Leonela Bear MD Work Phone: [facility] 02-22-2024 08:06-0400 Heart rate 52 /min Leonela Bear MD Work Phone: [facility] 02-22-2024 08:06-0400 SaO2% (BldA) [Mass fraction] 94 % Leonela Bear MD Work Phone: [facility] 02-22-2024 08:06-0400 Systolic blood pressure 140 mm[Hg] Leonela Bear MD Work Phone: [facility] 02-08-2024 10:59-0400 Diastolic blood pressure 70 mm[Hg] NA Rodriguez PA-C Work Phone: [facility] 02-08-2024 10:59-0400 Heart rate 52 /min NA Rodriguez PA-C Work Phone: [facility] 02-08-2024 10:59-0400 Systolic blood pressure 119 mm[Hg] NA Rodriguez PA-C Work Phone: [facility] 02-08-2024 10:50-0400 Body weight 61.69 kg NA Rodriguez PA-C Work Phone: [facility] 02-08-2024 10:50-0400 Respiratory rate 16 /min NA Rodriguez PA-C Work Phone: [facility] 02-08-2024 10:50-0400 SaO2% (BldA) [Mass fraction] 98 % NA Rodriguez PA-C Work Phone: [facility] 02-04-2024 07:15-0400 Body temperature 97.6 [degF] Dr. Santo Love Work Phone: [facility] 02-04-2024 07:15-0400 Diastolic blood pressure 58 mm[Hg] Dr. Santo Love Work Phone: [facility] 02-04-2024 07:15-0400 Heart rate 75 /min Dr. Santo Love Work Phone: [facility] 02-04-2024 07:15-0400 Respiratory rate 16 /min Dr. Santo Love Work Phone: [facility] 02-04-2024 07:15-0400 SaO2% (BldA) [Mass fraction] 94 % Dr. Santo Love Work Phone: [facility] 02-04-2024 07:15-0400 Systolic blood pressure 110 mm[Hg] Dr. Santo Love Work Phone: [facility] 02-04-2024 05:43-0400 Body height 162.[address] Santo Love Work Phone: [facility] 02-04-2024 05:43-0400 Body mass index (BMI) [Ratio] 23.4 kg/m2 Dr. Santo Love Work Phone: [facility] 02-04-2024 05:43-0400 Body weight [address] Santo Love Work Phone: [facility] 02-02-2024 14:39-0400 Body height 162.6 cm Zac Duncan PA-C Work Phone: [facility] 02-02-2024 14:39-0400 Body temperature 98.4 [degF] Zac Duncan PA-C Work Phone: [facility] 02-02-2024 14:39-0400 Body weight 62.78 kg Zac Duncan PA-C Work Phone: [facility] 02-02-2024 14:39-0400 Diastolic blood pressure 76 mm[Hg] Zac Duncan PA-C Work Phone: [facility] 02-02-2024 14:39-0400 Heart rate 80 /min Zac Duncan PA-C Work Phone: [facility] 02-02-2024 14:39-0400 Respiratory rate 12 /min Zac Duncan PA-C Work Phone: [facility] 02-02-2024 14:39-0400 SaO2% (BldA) [Mass fraction] 98 % Zac Duncan PA-C Work Phone: [facility] 02-02-2024 14:39-0400 Systolic blood pressure 180 mm[Hg] Zac Duncan PA-C Work Phone: [facility] 01-06-2024 08:47-0500 Body weight 62.6 kg Santo Love MD Work Phone: [facility] 01-06-2024 08:47-0500 Diastolic blood pressure 82 mm[Hg] Santo Love MD Work Phone: [facility] 01-06-2024 08:47-0500 Heart rate 75 /min Santo Love MD Work Phone: [facility] 01-06-2024 08:47-0500 SaO2% (BldA) [Mass fraction] 97 % Santo Love MD Work Phone: [facility] 01-06-2024 08:47-0500 Systolic blood pressure 172 mm[Hg] Santo Love MD Work Phone: [facility] 12-22-2023 11:42-0500 Body temperature 98.2 [degF] Dr. Santo Love Work Phone: [facility] 12-22-2023 11:42-0500 Diastolic blood pressure 65 mm[Hg] Dr. Santo Love Work [facility]: [facility] [facility] 12-22-2023 11:42-0500 Heart rate 82 /min Dr. Santo Love Work Phone: [facility] 12-22-2023 11:42-0500 Respiratory rate 17 /min Dr. Santo Love Work Phone: [facility] 12-22-2023 11:42-0500 SaO2% (BldA) [Mass fraction] 95 % Dr. Santo Love Work Phone: [facility] 12-22-2023 11:42-0500 Systolic blood pressure 152 mm[Hg] Dr. Santo Love Work Phone: 1(791)972-227754 [place] [address] 12-21-2023 14:06-0500 Body height 162.[address] Santo Love Work Phone: 4(636)077-264054 [place] [address] 12-21-2023 14:06-0500 Body weight 62.[address] Santo Love Work Phone: 2(482)086-239754 [place] [address] 12-15-2023 13:59-0500 Body mass index (BMI) [Ratio] 23.6 kg/m2 Dr. Santo Love Work Phone: 9(733)691-677054 [place] [address] 12-15-2023 07:14-0500 Diastolic blood pressure 59 mm[Hg] Dr. Santo Love Work Phone: 4(504)348-732054 [place] [address] 12-15-2023 07:14-0500 Heart rate 108 /min Dr. Santo Love Work Phone: 5(708)491-671154 [place] [address] 12-15-2023 07:14-0500 Respiratory rate 16 /min Dr. Santo Love Work Phone: 8(488)625-788554 [place] [address] 12-15-2023 07:14-0500 SaO2% (BldA) [Mass fraction] 98 % Dr. Santo Love Work Phone: 7(821)808-835954 [place] [address] 12-15-2023 07:14-0500 Systolic blood pressure 132 mm[Hg] Dr. Santo Love Work Phone: 3(879)603-075654 [place] [address] 12-15-2023 05:40-0500 Body height 162.[address] Santo Love Work Phone: 5(164)348-569854 [place] [address] 12-15-2023 05:40-0500 Body mass index (BMI) [Ratio] 26.1 kg/m2 Dr. Santo Love Work Phone: 4(151)738-108954 [place] [address] 12-15-2023 05:40-0500 Body temperature 97.2 [degF] Dr. Santo Love Work Phone: 2(446)154-474854 [place] [address] 12-15-2023 05:40-0500 Body weight [address] Santo Love Work Phone: 0(017)579-728346 [place] [address] 12-13-2023 15:30-0500 Heart rate 80 /min Dr. Santo Love Work Phone: 4(915)150-966854 [place] [address] 12-13-2023 14:43-0500 Body temperature 97.6 [degF] Dr. Santo Love Work Phone: 3(185)288-699454 [place] [address] 12-13-2023 14:43-0500 Diastolic blood pressure 51 mm[Hg] Dr. Santo Love Work Phone: 4(484)436-202054 [place] [address] 12-13-2023 14:43-0500 Respiratory rate 18 /min Dr. Santo Love Work Phone: 0(709)004-926654 [place] [address] 12-13-2023 14:43-0500 SaO2% (BldA) [Mass fraction] 99 % Dr. Santo Love Work Phone: 3(152)381-995546 [place] [address] 12-13-2023 14:43-0500 Systolic blood pressure 116 mm[Hg] Dr. Santo Love Work Phone: 2(636)048-432954 [place] [address] 12-12-2023 11:23-0500 Body height 162.[address] Santo Love Work Phone: 2(241)014-514154 [place] [address] 12-12-2023 11:23-0500 Body mass index (BMI) [Ratio] 24.3 kg/m2 Dr. Santo Love Work Phone: 5(577)127-533746 [place] [address] 12-12-2023 11:23-0500 Body weight 64.[address] Santo Love Work Phone: 2(999)291-878746 [place] [address] 12-11-2023 11:59-0500 Diastolic blood pressure 60 mm[Hg] [facility] 12-11-2023 11:59-0500 Systolic blood pressure 151 mm[Hg] [facility] 12-11-2023 11:58-0500 Heart rate 76 /min [facility] 12-11-2023 11:58-0500 Respiratory rate 16 /min [facility] 12-11-2023 07:46-0500 Body height 162.56 cm [facility] 12-11-2023 07:46-0500 Body temperature 98.1 [degF] [facility] 12-11-2023 07:46-0500 SaO2% (BldA) [Mass fraction] 99 % [facility] 05-07-2023 10:43-0400 Body height 162.6 cm Santo Love MD Work Phone: [facility] 05-07-2023 10:43-0400 Body weight 65.41 kg Santo Love MD Work Phone: [facility] 05-07-2023 10:43-0400 Diastolic blood pressure 52 mm[Hg] Santo Love MD Work Phone: [facility] 05-07-2023 10:43-0400 Heart rate 65 /min Santo Love MD Work Phone: [facility] 05-07-2023 10:43-0400 SaO2% (BldA) [Mass fraction] 97 % Santo Love MD Work Phone: [facility] 05-07-2023 10:43-0400 Systolic blood pressure 106 mm[Hg] Santo Love MD Work Phone: [facility] 01-29-2023 10:19-0400 Body weight 64.41 kg Santo Love MD Work Phone: [facility] 01-29-2023 10:19-0400 Diastolic blood pressure 62 mm[Hg] Santo Love MD Work Phone: [facility] 01-29-2023 10:19-0400 Heart rate 70 /min Santo Love MD Work Phone: [facility] 01-29-2023 10:19-0400 SaO2% (BldA) [Mass fraction] 97 % Santo Love MD Work Phone: [facility] 01-29-2023 10:19-0400 Systolic blood pressure 112 mm[Hg] Santo Love MD Work Phone: [facility] 01-01-2023 10:18-0500 Body temperature 97.2 [degF] SAM Rodriguez PA-C Work Phone: [facility] 01-01-2023 10:18-0500 Body weight 63.5 kg NA Rodriguez PA-C Work Phone: [facility] 01-01-2023 10:18-0500 Diastolic blood pressure 82 mm[Hg] NA Rodriguez PA-C Work Phone: [facility] 01-01-2023 10:18-0500 Heart rate 76 /min NA Rodriguez PA-C Work Phone: [facility] 01-01-2023 10:18-0500 Respiratory rate 16 /min NA Rodriguez PA-C Work Phone: [facility] 01-01-2023 10:18-0500 SaO2% (BldA) [Mass fraction] 96 % NA Rodriguez PA-C Work Phone: [facility] 01-01-2023 10:18-0500 Systolic blood pressure 166 mm[Hg] NA Rodriguez PA-C Work Phone: [facility] 11-27-2022 09:01-0500 Diastolic blood pressure 71 mm[Hg] Mi Nurse Work Phone: [facility] 11-27-2022 09:01-0500 Heart rate 71 /min Mi Nurse Work Phone: [facility] 11-27-2022 09:01-0500 Systolic blood pressure 164 mm[Hg] Mi Nurse Work Phone: [facility] 10-02-2022 09:14-0500 Body weight 62.14 kg Santo Love MD Work Phone: [facility] 10-02-2022 09:14-0500 Diastolic blood pressure 72 mm[Hg] Santo Love MD Work Phone: [facility] 10-02-2022 09:14-0500 Heart rate 74 /min Santo Love MD Work Phone: [facility] 10-02-2022 09:14-0500 SaO2% (BldA) [Mass fraction] 99 % Santo Love MD Work Phone: [facility] 10-02-2022 09:14-0500 Systolic blood pressure 126 mm[Hg] Santo Love MD Work Phone: [facility] 07-17-2022 09:43-0400 Diastolic blood pressure 68 mm[Hg] Mi Nurse Work Phone: [facility] 07-17-2022 09:43-0400 Heart rate 74 /min Mi Nurse Work Phone: [facility] 07-17-2022 09:43-0400 Systolic blood pressure 113 mm[Hg] Mi Nurse Work Phone: [facility] 06-27-2022 11:50-0400 SaO2% (BldA) [Mass fraction] 99 % NA Rodriguez PA-C Work Phone: [facility] 06-27-2022 11:32-0400 Diastolic blood pressure 40 mm[Hg] NA Rodriguez PA-C Work Phone: [facility] 06-27-2022 11:32-0400 Systolic blood pressure 78 mm[Hg] NA Rodriguez PA-C Work Phone: [facility] 06-27-2022 11:07-0400 Body weight 60.33 kg NA Rodriguez PA-C Work Phone: [facility] 06-27-2022 11:07-0400 Heart rate 78 /min NA Rodriguez PA-C Work Phone: [facility] 06-27-2022 11:07-0400 Respiratory rate 14 /min NA Rodriguez PA-C Work Phone: [facility] Encounters Encounter Date Encounter Type Care Provider Facility Start: 08-23-2025 End: 08-23-2025 ambulatory SANTO LOVE Facility:[facility] Start: 08-19-2025 End: 08-19-2025 ambulatory SANTO LOVE Facility:[facility] Start: 08-19-2025 Patient encounter procedure SANTO LOVE [facility] Start: 07-12-2025 End: 07-12-2025 Orders Only I Philipp Castro MD Work Phone: Colorectal Surgery Comment on above: Rectal bleeding (Debi alexander Dx) Start: 07-07-2025 End: 07-07-2025 Follow-up encounter Juliana Davis APRN.SALES ACCOUNT SPECIALIST Work Phone: [facility] [place] Start: 07-06-2025 ambulatory [facility] Facility :[facility] Start: 07-06-2025 End: 07-06-2025 Subsequent hospital visit by physician Screen Mammo [facility] Comment on above: Encounter for screen ing mammogram for malignant neoplasm of breast [Z12.31] Start: 07-05-2025 End: 07-05-2025 Telephone encounter Santo Love MD Work Phone: [address] [place] [address] Start: 06-21-2025 End: 06-22-2025 Refill Santo Love MD Work Phone: [facility] [place] Comment on above: Refill Request Start: 05-29-2025 End: 05-29-2025 Office outpatient visit 15 minutes Juliana Davis APRN.SALES ACCOUNT SPECIALIST Work Phone: [facility] [place] Comment on above: Essential hypertensi on (Primary Dx) Start: 05-29-2025 End: 05-29-2025 [facility] Facility:[facility] Start: 05-17-2025 End: 05-17-2025 Telephone encounter Gm Calderon MD Work Phone: General Surgery Comment on above: Appointment Mass of cecum (Prima ry Dx) Start: 05-09-2025 [facility] Facility :[facility] Start: 05-09-2025 End: 05-09-2025 Subsequent hospital visit by physician Zari Sorenson MD Work Phone: Ambulatory Surgery Comment on above: Screening for colon cancer [Z12.11] Start: 05-04-2025 End: 05-04-2025 Patient encounter procedure Elizabeth Ortega APRN.SALES ACCOUNT SPECIALIST Work Phone: General Surgery Comment on above: Screen for colon can cer (Primary Dx); History of colon polyps Start: 05-04-2025 End: 05-04-2025 ambulatory [facility] Facility:[facility] Start: 05-03-2025 End: 05-03-2025 Follow-up encounter Raisa Maradiaga APRN.CNP Work Phone: [facility] Start: 05-01-2025 End: 05-01-2025 ambulatory [facility] Facility:[facility] Start: 05-01-2025 End: 05-01-2025 Office outpatient visit 25 minutes Raisa Maradiaga APRN.SALES ACCOUNT SPECIALIST Work Phone: [facility] Comment on above: Essential hypertensi on (Primary Dx); Type 2 diabetes mellitus without complication, with long-term current use of insulin (HCC); Mixed hyperlipidemia Start: 05-01-2025 End: 05-01-2025 [facility] Facility:[facility] Start: 03-30-2025 End: 03-30-2025 ambulatory Santo Love MD Work Phone: [facility] Start: 03-30-2025 End: 03-30-2025 Patient encounter procedure Santo Love MD Work Phone: [facility] Comment on above: Population Health Na vigation Outreach (Batsheva Ocampo ) Start: 03-07-2025 End: 03-07-2025 Office outpatient visit 15 minutes Raisa Maradiaga APRN.SALES ACCOUNT SPECIALIST Work Phone: [facility] Comment on above: Essential (primary) hypertension; Type 2 diabetes mellitus without complication, with long-term current use of insulin (HCC) Start: 03-07-2025 End: 03-07-2025 [facility] Facility:[facility] Start: 03-03-2025 End: 03-03-2025 Refill Santo Love MD Work Phone: [facility] Comment on above: Refill Request Start: 03-01-2025 End: 03-01-2025 Refill Santo Love MD Work Phone: [facility] Comment on above: Refill Request Start: 02-07-2025 End: 02-08-2025 Telephone encounter Raisa Maradiaga APRN.CNP Work Phone: [facility] [place] Start: 02-07-2025 End: 02-07-2025 Office outpatient visit 25 minutes Raisa Maradiaga APRN.CNP Work Phone: [facility] [place] Comment on above: Type 2 diabetes abelardo itus without complication, with long-term current use of insulin (HCC) (Primary Dx); Essential (primary) hypertension; Nonalcoholic fatty liver disease Start: 02-07-2025 End: 02-07-2025 ambulatory SANTO LOVE Facility:[facility] Start: 02-06-2025 End: 02-06-2025 ambulatory [facility] Work Phone: Pharmacy Medicine Start: 01-30-2025 End: 04-01-2025 Follow-up encounter Santo Love MD Work Phone: [facility] [place] Start: 01-27-2025 End: 01-27-2025 Telephone encounter Raisa Maradiaga APRN.SALES ACCOUNT SPECIALIST Work Phone: [facility] [place] Comment on above: Results Start: 01-26-2025 End: 01-26-2025 ambulatory [facility] Facility:[facility] Start: 01-26-2025 End: 01-26-2025 Subsequent hospital visit by physician [facility] Work Phone: Radiology Comment on above: Elevated alkaline ph osphatase level [R74.8] Start: 01-25-2025 End: 03-27-2025 Follow-up encounter Raisa Maradiaga APRN.SALES ACCOUNT SPECIALIST Work Phone: [facility] [place] Start: 01-25-2025 End: 01-25-2025 Telephone encounter Santo Love MD Work Phone: [facility] [place] Comment on above: Results Start: 01-24-2025 End: 03-26-2025 Follow-up encounter Santo Love MD Work Phone: [facility] [place] Start: 01-23-2025 End: 01-23-2025 ambulatory SANTO LOVE Facility:[facility] Start: 12-13-2024 End: 12-13-2024 ambulatory SANTO KATE Facility:[facility] Start: 12-13-2024 End: 12-13-2024 Office outpatient visit 15 minutes Raisa Maradiaga APRN.CNP Work Phone: [facility] Comment on above: Essential hypertensi on (Primary Dx); Type 2 diabetes mellitus without complication, without long-term current use of insulin (HCC); Impacted cerumen of left ear Start: 12-07-2024 End: 12-07-2024 Refill Santo Love MD Work Phone: [facility] Comment on above: Refill Request requesting medicatio n that is Start: 11-29-2024 End: 11-29-2024 ambulatory LEONELA BEAR Facility:[facility] Start: 11-29-2024 End: 11-29-2024 Patient encounter procedure Leonela Bear MD Work Phone: Pulmonary Medicine Comment on above: Lung nodules (Primar y Dx); Radiation fibrosis of lung (HCC); Granulomatous disease (HCC); History of breast cancer Start: 11-21-2024 End: 06-14-2025 Telephone encounter Santo Love MD Work Phone: [facility] Comment on above: Results Start: 11-19-2024 End: 11-19-2024 [facility] Facility:[facility] Start: 11-19-2024 End: 11-19-2024 Patient encounter procedure Santo Love MD Work Phone: [facility] Comment on above: Essential hypertensi on (Primary Dx); Mixed hyperlipidemia; Paroxysmal SVT (supraventricular tachycardia) (HCC); Persistent atrial fibrillation (HCC); Type 2 diabetes mellitus without complication, without long-term current use of insulin (HCC); Lung nodule; Radiation fibrosis of lung (HCC); Gastroesophageal reflux disease without esophagitis; Granulomatous disease (HCC); Low serum vitamin B12 Start: 10-04-2024 End: 10-04-2024 ambulatory [facility] Facility:[facility] Start: 08-09-2024 End: 08-09-2024 Subsequent hospital visit by physician Negar [facility] ([facility]) Work Phone: Cat Scan Comment on above: Pulmonary nodules [R 91.8] Start: 07-13-2024 End: 07-13-2024 Patient encounter procedure Santo Love MD Work Phone: [facility] Comment on above: Essential hypertensi on (Primary Dx); Mixed hyperlipidemia; Atherosclerosis of coronary artery of [place] heart without angina pectoris, unspecified vessel or lesion type; Persistent atrial fibrillation (HCC); Lung nodule; Radiation fibrosis of lung (HCC); Gastroesophageal reflux disease without esophagitis; History of GI bleed; Type 2 diabetes mellitus without complication, without long-term current use of insulin (HCC); Iron deficiency anemia due to chronic blood loss; History of breast cancer; Osteopenia, unspecified location; Low serum vitamin B12 Start: 07-13-2024 [facility] Facility:[facility] Start: 07-13-2024 End: 07-13-20[address] [facility] Facility:[facility] Start: 07-06-2024 End: 07-07-2024 Documentation procedure Mammography Coordinator [facility] Department Start: 07-06-2024 End: 07-07-2024 Letter encounter Mammography Coordinator [facility] Start: 07-05-2024 End: 07-05-2024 Subsequent hospital visit by physician Screen Mammo [facility] Comment on above: History of breast ca ncer [Z85.3] Start: 06-20-2024 End: 06-20-2024 Office outpatient visit 15 minutes Juliana Davis APRN.SALES ACCOUNT SPECIALIST Work Phone: [facility] Comment on above: Essential hypertensi on (Primary Dx); Type 2 diabetes mellitus without complication, without long-term current use of insulin (HCC); Atherosclerosis of [place] coronary artery of [place] heart without angina pectoris Start: 05-12-2024 End: 05-12-2024 Office outpatient visit 25 minutes Juliana Davis APRN.SALES ACCOUNT SPECIALIST Work Phone: [facility] Comment on above: Essential hypertensi on (Primary Dx); Type 2 diabetes mellitus without complication, without long-term current use of insulin (HCC) Start: 04-28-2024 Refill Santo Love MD Work Phone: [facility] [place] Comment on above: Refill Request medication clarifica [...] Santo Love MD Work Phone: [facility] [place] Comment on above: Patient Update Start: 04-08-2024 End: 04-08-2024 Patient encounter procedure Santo Love MD Work Phone: [facility] [place] Comment on above: Essential hypertensi on (Primary Dx) Start: 04-07-2024 End: 04-07-2024 ambulatory Rajeev Warren Facility:[facility] Start: 03-14-2024 Refill Santo Love MD Work Phone: [facility] [place] Comment on above: Refill Request Start: 02-23-2024 Telephone encounter Zac mcgarry PA-C Work Phone: Urology Comment on above: Results Start: 02-22-2024 End: 02-22-2024 Patient encounter procedure Leonela Bear MD Work Phone: Pulmonary Medicine Comment on above: Lung nodule (Primary Dx); Granulomatous disease (HCC); Radiation fibrosis of lung (HCC); History of breast cancer Start: 02-18-2024 End: 02-18-2024 Subsequent hospital visit by physician [facility] Work Phone: Radiology Comment on above: Bilateral hydronephr osis [N13.30] Start: 02-08-2024 Telephone encounter Santo Love MD Work Phone: [facility] [place] Comment on above: Orders Start: 02-08-2024 End: 02-08-2024 Patient encounter procedure Talya Forrest Rodriguez PA-C Work Phone: [facility] Comment on above: Type 2 diabetes abelardo itus without complication, without long- term current use of insulin (HCC) (Primary Dx); Iron deficiency anemia due to chronic blood loss; Pulmonary nodules Start: 02-05-2024 Telephone encounter Santo Love MD Work Phone: [facility] Comment on above: Trulicity search Start: 02-04-2024 ambulatory [facility] Facility :[facility] Start: 02-04-2024 Non-patient / Non-visit Dr. Ruthy Love Work Phone: [facility] Start: 02-04-2024 End: 02-04-2024 Admission to same day surgery center Dr. Santo Love Work Phone: [facility] Work Phone: Start: 02-04-2024 End: 02-04-[address] Santo Love Work Phone: [facility] Work Phone: Start: 02-02-2024 End: 02-02-2024 Patient encounter procedure Zac Duncan PA-C Work Phone: Urology Comment on above: Bilateral hydronephr osis (Primary Dx); Hydroureter; Screening for genitourinary condition Start: 01-18-2024 End: 01-18-[address] Santo Love Work Phone: [facility] Work Phone: Start: 01-18-2024 End: 01-18-[address] Santo Love Work Phone: [facility] Work Phone: Start: 01-18-2024 End: 01-18-2024 ambulatory [facility] Facility:[facility] Start: 01-14-2024 Telephone encounter Santo Love MD Work Phone: Pulmonology [facility] Comment on above: Results Start: 01-12-2024 End: 01-12-2024 Subsequent hospital visit by physician [facility] ([facility]) Work Phone: Cat Scan Comment [...] Patient Outreach Santo sharma MD Work Phone: [facility] Comment on above: Transition Of Care Start: 12-22-2023 Non-patient / Non-visit Dr. Ruthy Love Work Phone: [facility] Work Phone: Start: 12-21-2023 Non-patient / Non-visit Dr. Ruthy Love Work Phone: [facility] Work Phone: Start: 12-20-2023 Non-patient / Non-visit Dr. Ruthy Love Work Phone: [facility] Work Phone: Start: 12-19-2023 Non-patient / Non-visit Dr. Ruthy Love Work Phone: [facility] Start: 12-19-2023 Non-patient / Non-visit Dr. Ruthy Love Work Phone: [facility] Work Phone: Start: 12-18-2023 Telephone encounter Santo Love MD Work Phone: [facility] [place] Comment on above: Results Start: 12-18-2023 Non-patient / Non-visit Dr. Ruthy Love Work Phone: [facility] Work Phone: Start: 12-17-2023 Non-patient / Non-visit Dr. Ruthy Love Work Phone: [facility] Start: 12-17-2023 Non-patient / Non-visit Dr. Ruthy Love Work Phone: [facility] Work Phone: Start: 12-16-2023 Non-patient / Non-visit Dr. Ruthy Love Work Phone: [facility] Work Phone: Start: 12-16-2023 Non-patient / Non-visit Dr. Ruthy Love Work Phone: [facility] Start: 12-15-2023 ambulatory [facility] [place] Facility :[facility] Start: 12-15-2023 Non-patient / Non-visit Dr. Ruthy Love Work Phone: [facility] Start: 12-15-2023 Non-patient / Non-visit Dr. Ruthy Love Work Phone: [facility] Work Phone: Start: 12-15-2023 ambulatory Gomez Johansen Fac ility:[facility] Start: 12-15-2023 End: 12-22-2023 Evaluation and management of inpatient Dr. Santo Love Work Phone: [facility] Work Phone: Start: 12-14-2023 Patient Outreach Eli Lyons MA [facility] [place] Comment on above: Transition Of Care Start: 12-13-2023 Non-patient / Non-visit Dr. Ruthy Love Work Phone: [facility] Work Phone: Start: 12-12-2023 ambulatory [facility]ullen Ferrer Facility :[facility] Start: 12-12-2023 Non-patient / Non-visit Dr. Ruthy Love Work Phone: [facility] Work Phone: Start: 12-12-2023 End: 12-12-2023 ambulatory Jacques Fortune Facility:[facility] Start: 12-12-2023 End: 12-12-2023 Non-patient / Non-visit Dr. Santo Love Work Phone: [facility] Work Phone: Start: 12-11-2023 Non-patient / Non-visit [facility] Ruthy Love [facility] Start: 12-11-2023 ambulatory [facility] Fac ility:[facility] Start: 12-11-2023 End: 12-13-2023 Evaluation and management of inpatient [facility] Work Phone: Start: 09-30-2023 Refill Santo Love MD Work Phone: [facility] [place] Comment on above: Refill Request (SEE RX NOTES TO CHANGE) Start: 07-22-2023 Telephone encounter Herlinda Courtney Start: 07-02-2023 End: 07-02-2023 Subsequent hospital visit by physician Screen Mammo [facility] Comment on above: Malignant neoplasm o f female breast, unspecified estrogen receptor status, unspecified laterality, unspecified site of breast (HCC) [C50.919] Start: 06-29-2023 Refill Santo Love MD Work Phone: [facility] Comment on above: Refill Request Start: 05-08-2023 Telephone encounter Santo Love MD Work Phone: [facility] Comment on above: Results Start: 05-07-2023 End: 05-07-2023 Patient encounter procedure Santo Love MD Work Phone: [facility] Comment on above: Essential hypertensi on (Primary Dx); Mixed hyperlipidemia; Paroxysmal SVT (supraventricular tachycardia) (HCC); Persistent atrial fibrillation (HCC); Type 2 diabetes mellitus without complication, without long-term current use of insulin (HCC); 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 anticoagulant ; Osteopenia, unspecified location; Malignant neoplasm of female breast, unspecified estrogen receptor status, unspecified laterality, unspecified site of breast (HCC); Screening mammogram for breast cancer Start: 03-06-2023 Refill Santo Love MD Work Phone: [employer] Comment on above: Refill Request Start: 03-06-2023 Refill Santo Love MD Work Phone: [facility] Comment on above: Med Change Request Start: 01-29-2023 End: 01-29-2023 Patient encounter procedure Santo Love MD Work Phone: [facility] Comment on above: Vertigo (Primary Dx) ; Essential hypertension; Atherosclerosis of coronary artery of [place] heart without angina pectoris, unspecified vessel or [...] 01-16-2023 Refill Santo Love MD Work Phone: [facility] Comment on above: Refill Request Start: 01-01-2023 End: 01-01-2023 Patient encounter procedure Talya Rodriguez PA-C Work Phone: [facility] Comment on above: Paroxysmal SVT (supr aventricular tachycardia) (HCC) (Primary Dx); Persistent atrial fibrillation (HCC); Atherosclerosis of coronary artery of [place] heart without angina pectoris, unspecified vessel or lesion type; Essential hypertension; Mixed hyperlipidemia; Nonrheumatic mitral valve regurgitation; BPPV (benign paroxysmal positional vertigo), unspecified laterality; Type 2 diabetes mellitus without complication, without long-term current use of insulin (HCC) Start: 11-27-2022 Telephone encounter Santo Love MD Work Phone: [facility] Comment on above: Blood Pressure Check Start: 11-27-2022 End: 11-27-2022 Nursing evaluation of patient and report Mi Nurse Work Phone: [facility] Comment on above: Essential hypertensi on (Primary Dx) Start: 11-17-2022 Refill Santo Love MD Work Phone: [facility] Comment on above: Refill Request Start: 11-11-2022 Telephone encounter Santo Love MD Work Phone: [facility] [place] Comment on above: Question Start: 10-03-2022 Telephone encounter Santo Love MD Work Phone: [facility] Comment on above: Results Start: 10-02-2022 End: 10-02-2022 Patient encounter procedure Santo Love MD Work Phone: [facility] Comment on above: Atherosclerosis of c oronary artery of [place] heart without angina pectoris, unspecified vessel or [...] unspecified laterality, unspecified site of breast (HCC); 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 ; Osteopenia, unspecified location; Hypercalcemia; Need for hepatitis C screening test Start: 09-16-2022 Refill Santo Love MD Work Phone: [facility] [place] Comment on above: Refill Request Start: 07-17-2022 Telephone encounter Santo Love MD Work Phone: [facility] Comment on above: Blood Pressure Check Start: 07-17-2022 End: 07-17-2022 Nursing evaluation of patient and report Mi Nurse Work Phone: [facility] Comment on above: Essential hypertensi on (Primary Dx) Start: 06-27-2022 End: 06-27-2022 Patient encounter procedure Talya Rodriguez PA-C Work Phone: [facility] Comment on above: Nonrheumatic mitral valve regurgitation (Primary Dx); Persistent atrial fibrillation (HCC); Paroxysmal SVT (supraventricular tachycardia) (HCC); 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 anticoagulant ; Atherosclerosis of coronary artery of [place] heart without angina pectoris, unspecified vessel or [...] procedure Mammog luis Coordinator [facility] Start: 05-30-2022 Letter encounter Mammography Coordinator [facility] Department Start: 05-30-2022 End: 05-30-2022 Subsequent hospital visit by physician Screen Mammo [facility] Comment on above: Screening breast exa mination [Z12.39] Start: 05-07-2022 End: 05-07-2022 Subsequent hospital visit by physician Bone Density [facility] Work Phone: Radiology Comment on above: Postmenopausal [Z78. 0] Start: 04-22-2022 Telephone encounter Santo Love MD Work Phone: [facility] Comment on above: mammogram order Start: 03-25-2022 Telephone encounter Santo Love MD Work Phone: [facility] Comment on above: Patient Update prescription assista nce Start: 03-19-2022 Telephone encounter Herlinda PAZ Navigation Comment on above: prescription assista nce Start: 02-25-2022 Telephone encounter Herlinda PAZ Navigation Comment on above: prescription assista nce Start: 02-13-2022 Refill Santo oLve MD Work Phone: [facility] [place] Comment on above: Refill Request Start: 12-01-2020 End: 12-01-2020 Emergency department patient visit SANTO KATE [facility] Start: 11-29-2020 End: 11-29-2020 [facility] Start: 10-14-2018 Patient encounter DANIEL Viera ility:[facility] Start: 06-29-2018 End: 06-30-2018 [facility] Start: 02-12-2018 End: 02-12-2018 Patient encounter DANIEL MARCELO [facility] Procedures Date Procedure Procedure Detail Performing Clinician Start: 05-09-2025 Colonoscopy flx dx w/collj spec when pfrmd Santo Love MD Work Phone: Start: 05-09-2025 Colonoscopy Zari Sorenson MD Work Phone: Start: 04-12-2024 Adult depression screening assessment Juliana Davis WASTE COLLECTION DRIVER.SALES ACCOUNT SPECIALIST Work Phone: Start: 02-04-[address] Santo [...] for malign ant neoplasm of colon Colonoscopy [facility] Start: 03-07-2026 Annual PCP Team Racker Octave Board starr Disease Visit Annual PCP Team Chronic Disease Visit [facility] Start: 02-07-2026 Annual PCP Team Racker Octave Board starr Disease Visit Annual PCP Team Chronic Disease Visit [facility] Start: 02-07-2026 Hepatitis B screening Urine Al bumin:Creatinine Ratio [facility] Start: 12-13-2025 Annual PCP Team Racker Octave Board starr Disease Visit Annual PCP Team Chronic Disease Visit [facility] Start: 12-13-2025 BP Controlled (<130/80) BP Controlle d (<130/80) [facility] Start: 11-30-2025 End: 11-30-2025 Patient encounter procedure Cat Scan Comment on above: Granulomatous diseas e (HCC) [D71]; Lung nodules [R91.8]; History of breast cancer [Z85.3] 1 yr f/u Start: 11-29-2025 BP Controlled (<130/80) BP Controlle d (<130/80) [facility] Start: 11-29-2025 End: 12-29-2025 CT Chest WO contrast CT CHEST WO IVCON Radiology Routine Granulomatous disease (HCC) Lung nodules History of breast cancer Expected: 11/29/2025, Expires: 12/29/2025 [facility] Work Phone: Comment on above: Expected: 11/29/2025 , Expires: 12/29/2025 Start: 11-19-2025 Annual PCP Team Racker Octave Board starr Disease Visit Annual PCP Team Chronic Disease Visit [facility] Start: 11-19-2025 Hepatitis B screening Urine Al bumin:Creatinine Ratio [facility] Start: 11-19-2025 Hepatitis B surface antibody level LDL Cholesterol [facility] Start: 08-19-2025 End: 08-19-2025 Patient encounter procedure 08/19/2025 10:00 AM EDT Office Visit [facility] [place] [address] [place] [address] Santo Love MD [address] [place] [id number] wellness [facility] [place] Comment on above: wellness Start: 08-03-2025 End: 11-02-2025 Hemoglobin A1c in Blood HEMOGLOBIN A1C Lab Routine Type 2 diabetes mellitus without complication, with long-term current use of insulin (HCC) Expected: 08/03/2025, Expires: 11/02/2025 [facility] Work Phone: Comment on above: Expected: 08/03/2025 , Expires: 11/02/2025 Start: 08-01-2025 Hemoglobin A1c measurement HbA1C [facility] Start: 07-13-2025 Annual PCP Team Racker Octave Board starr Disease Visit Annual PCP Team Chronic Disease Visit [facility] Start: 07-13-2025 BP Controlled (<130/80) BP Controlle d (<130/80) [facility] Start: 07-13-2025 Covid-19 Vaccine () Covid-19 Vaccine () [facility] Comment on above: Postponed from 07/03 (Declined at this time) Start: 07-13-2025 Covid-19 Vaccine () Covid-19 Vaccine () [facility] Comment on above: Postponed from 07/03 (Declined at this time) Start: 07-06-2025 End: 07-06-2025 Patient encounter procedure 07/06/2025 10:10 AM EDT Appointment Mammogram [address] [place], [place] [id number] screening Mammogram Mammogram Comment on above: screening Mammogram Start: 07-03-2025 Influenza vaccination C [facility] Start: 06-28-2025 End: 06-28-2025 Patient encounter procedure 06/28/2025 2:00 PM EDT Office Visit Colorectal Surgery [address] [address] Geovanna Castro MD [address] [place], [place] [id number] Mass of cecum [K63.89] Colorectal Surgery Comment on above: Mass of cecum [K63.8 9] Start: 06-20-2025 BP Controlled (<130/80) BP Controlle d (<130/80) [facility] Start: 05-19-2025 Hemoglobin A1c measurement HbA1C [facility] Start: 05-16-2025 End: 05-16-2025 Patient encounter procedure 05/16/2025 10:40 AM EDT Office Visit [facility] [place] [address] [place], [place] [address] Raisa Maradiaga APRN.SALES ACCOUNT SPECIALIST [address] [place] [address] 2 week BP check [facility] [place] Comment on above: 2 week BP check Start: 05-09-2025 End: 08-08-2025 Hemoglobin A1c in Blood HEMOGLOBIN A1C Lab Routine Type 2 diabetes mellitus without complication, with long-term current use of insulin (HCC) Expected: 05/09/2025, Expires: 08/08/2025 [facility] Work Phone: Comment on above: Expected: 05/09/2025 , Expires: 08/08/2025 Start: 05-09-2025 End: 05-09-2025 Patient encounter procedure Ambulatory Surgery Comment on above: colonoscopy Colon Was seen by Ruben orona in office Start: 05-08-2025 End: 05-08-2025 Patient encounter procedure 05/08/2025 11:00 AM EDT Office Visit [facility] [place] [address] [place] [address] Raisa Maradiaga APRN.SALES ACCOUNT SPECIALIST [address] [place] [address] 2 month BP check [facility] [place] Comment on above: 2 month BP check Start: 05-04-2025 End: 05-04-2025 Patient encounter procedure 05/04/2025 10:30 AM EDT Office Visit General Surgery [address] [place] [address] Elizabeth Ortega, TORY.SALES ACCOUNT SPECIALIST [address] [place] [address] CONSULT: Colonoscopy. Last 09/17/2021. [facility] General Surgery Comment on above: CONSULT: Colonoscopy . Last 09/17/2021. [facility] Start: 05-01-2025 Influenza vaccination Influenza Vacc ine (#1) [facility] Comment on above: Postponed from 07/03 (Declined at this time) Start: 04-25-2025 Hemoglobin A1c measurement HbA1C [facility] Start: 04-12-2025 Annual PCP Team Racker Octave Board starr Disease Visit Annual PCP Team Chronic Disease Visit [facility] Start: 04-12-2025 Anxiety Screening Anxiety Screening [facility] Start: 04-12-2025 Covid-19 Vaccine () Covid-19 Vaccine () [facility] Comment on above: Postponed from 07/03 (Declined at this time) Start: 04-12-2025 Depression Screening Depression Scre ening [facility] Start: 04-12-2025 Diabetic foot examination Diabetic F oot Exam [facility] Start: 04-12-2025 Shingrix Vaccine (2 of 3) Bagley grix Vaccine (2 of 3) [facility] Comment on above: Postponed from 08/08 (Declined at this time) Start: 04-12-2025 Urine microalbumin profile DTaP,Tdap,Td Vaccine (2 - Td or Tdap) [facility] Comment on above: Postponed from 04/13 (Declined at this time) Start: 04-08-2025 Annual PCP Team Racker Octave Board starr Disease Visit Annual PCP Team Chronic Disease Visit [facility] Start: 04-07-2025 Hepatitis B surface antibody level LDL Cholesterol [facility] Start: 03-07-2025 End: 03-07-2025 Patient encounter procedure 03/07/2025 11:00 AM EDT Office Visit Family Kalee Ocamp[facility] [address] [facility] [place], [place] [id number] Raisa Maradiaga, TORY.SALES ACCOUNT SPECIALIST [address] [place] [address] 1 month BP check Family Kalee Ocamp[facility] Comment on above: 1 month BP check Start: 02-10-2025 End: 06-12-2025 Hemoglobin A1c in Blood HEMOGLOBIN A1C Lab Routine Type 2 diabetes mellitus without complication, without long-term current use of insulin (HCC) Expected: 02/10/2025, Expires: 06/12/2025 [facility] Work Phone: Comment on above: Expected: 02/10/2025 , Expires: 06/12/2025 Start: 02-07-2025 Annual PCP Team Racker Octave Board starr Disease Visit Annual PCP Team Chronic Disease Visit [facility] Start: 02-07-2025 BP Controlled (<130/80) BP Controlle d (<130/80) [facility] Start: 02-07-2025 End: 02-07-2025 Patient encounter procedure 02/07/2025 11:00 AM EDT Office Visit Family Kalee Ocampo [address] [place], [place] [address] Raisa Maradiaga, WASTE COLLECTION DRIVER.SALES ACCOUNT SPECIALIST [address] [place], [place] [phone] 3 month follow up Family Kalee Ocampo Comment on above: 3 month follow up Start: 01-26-2025 End: 01-26-2025 Patient encounter procedure 01/26/2025 1:00 PM EDT Appointment Radiology [address] [place], [place] [id number] Elevated alkaline phosphatase level [R74.8] Radiology Comment on above: Elevated alkaline ph osphatase level [R74.8] Start: 01-05-2025 Annual PCP Team Racker Octave Board starr Disease Visit Annual PCP Team Chronic Disease Visit [facility] Start: 01-05-2025 RSV Vaccine (1 - 1-d ose 60+ series) RSV Vaccine (1 - 1-dose 60+ series) [facility] Comment on above: Postponed from 03/31 (Declined at this time) Start: 01-05-2025 RSV Vaccine (1 - 1-d ose 75+ series) RSV Vaccine (1 - 1-dose 75+ series) [facility] Comment on above: Postponed from 03/31 (Declined at this time) Start: 12-21-2024 Glaucoma screening Dilated Retinal E xam [facility] Start: 12-13-2024 End: 12-13-2024 Patient encounter procedure [facility] [place] Comment on above: follow up 4 week BP follow up Start: 11-29-2024 End: 11-29-2024 Patient encounter procedure 11/29/2024 11:00 AM EST Office Visit Pulmonary Medicine [address] [place], [place] [phone] Leonela Bear MD [address] [place] [address] Lung nodule [R91.1]; 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]; Granulomatous disease (HCC) [D71] Pulmonary Medicine Comment on above: Lung nodule [R91.1]; 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]; Granulomatous disease (HCC) [D71] Start: 11-19-2024 End: 02-18-2025 CBC W Auto Differential panel - Blood [facility] Comment on above: Expected: 11/19/2024 , Expires: 02/18/2025 Start: 11-19-2024 End: 02-18-2025 Cobalamin (Vitamin B12) [Mass/volume] in Serum or Plasma [facility] Comment on above: Expected: 11/19/2024 , Expires: 02/18/2025 Start: 11-19-2024 End: 02-18-2025 Comprehensive metabolic 2000 panel - Serum or Plasma [facility] Comment on above: Expected: 11/19/2024 , Expires: 02/18/2025 Start: 11-19-2024 End: 02-18-2025 Hemoglobin A1c in Blood [facility] Work Phone: Comment on above: Expected: 11/19/2024 , Expires: 02/18/2025 Start: 11-19-2024 End: 02-18-2025 Lipid 1996 panel - Serum or Plasma [facility] Comment on above: Expected: 11/19/2024 , Expires: 02/18/2025 Start: 11-19-2024 End: 02-18-2025 Microalbumin/Creatinine [Mass Ratio] in Urine [facility] Comment on above: Expected: 11/19/2024 , Expires: 02/18/2025 Start: 11-12-2024 Annual PCP Team Racker Octave Board starr Disease Visit Annual PCP Team Chronic Disease Visit [facility] Start: 11-12-2024 BP Controlled (<130/80) BP Controlle d (<130/80) [facility] Start: 11-12-2024 Hepatitis B screening Urine Al bumin:Creatinine Ratio [facility] Start: 11-03-2024 Hepatitis B surface antibody level LDL Cholesterol [facility] Start: 11-02-2024 Medicare Advantage A nnual Wellness Visit Medicare Advantage Annual Wellness Visit [facility] Start: 09-17-2024 Colonoscopy COLONOSCOPY [facility] Start: 09-17-2024 Screening for malign ant neoplasm of colon Colonoscopy [facility] Start: 08-26-2024 End: 08-26-2024 Patient encounter procedure 08/26/2024 11:40 AM EDT Office Visit Family Kalee Ocampo [address] [place] [address] Santo Love MD [address] [facility] [place] [phone] 6 week follow up Family Kalee Ocamp[facility] Comment on above: 6 week follow up Start: 08-24-2024 End: 08-24-2024 Patient encounter procedure 08/24/2024 9:30 AM EDT Office Visit Pulmonary Medicine [address] [place] [phone] Genet Zavaleta PA-C [address] [facility] [place] [address] F/U LUNG NODULES Pulmonary Medicine Comment on above: F/U LUNG NODULES Start: 08-12-2024 End: 11-11-2024 CBC panel - Blood by Automated count COMPLETE BLOOD COUNT Lab Routine Iron deficiency anemia due to chronic blood loss Expected: 08/12/2024, Expires: 11/11/2024 [facility] Comment on above: Expected: 08/12/2024 , Expires: 11/11/2024 Start: 08-12-2024 End: 11-11-2024 Cobalamin (Vitamin B12) [Mass/volume] in Serum or Plasma VITAMIN B12 Lab Routine Low serum vitamin B12 Expected: 08/12/2024, Expires: 11/11/2024 [facility] Comment on above: Expected: 08/12/2024 , Expires: 11/11/2024 Start: 08-12-2024 End: 11-11-2024 Comprehensive metabolic 2000 panel - Serum or Plasma COMPREHENSIVE METABOLIC PANEL Lab Routine Essential hypertension Expected: 08/12/2024, Expires: 11/11/2024 [facility] Comment on above: Expected: 08/12/2024 , Expires: 11/11/2024 Start: 08-12-2024 End: 11-11-2024 Hemoglobin A1c in Blood HEMOGLOBIN A1C Lab Routine Type 2 diabetes mellitus without complication, without long-term current use of insulin (HCC) Expected: 08/12/2024, Expires: 11/11/2024 [facility] Work Phone: Comment on above: Expected: 08/12/2024 , Expires: 11/11/2024 Start: 08-12-2024 Hemoglobin A1c measurement HbA1C [facility] Start: 08-12-2024 End: 11-11-2024 Lipid 1996 panel - Serum or Plasma LIPID PANEL BASIC Lab Routine Essential hypertension Expected: 08/12/2024, Expires: 11/11/2024 [facility] Comment on above: Expected: 08/12/2024 , Expires: 11/11/2024 Start: 08-09-2024 End: 03-09-2025 CT Chest WO contrast [facility] Work Phone: Comment on above: Expected: 08/09/2024 , Expires: 03/09/2025 Start: 08-09-2024 End: 08-09-2024 Patient encounter procedure 08/09/2024 10:00 AM EDT Appointment Cat Scan [address] [place] [address] 6 mo follow up pulmonary nodules Cat Scan Comment on above: 6 mo follow up pulmo nary nodules Start: 07-13-2024 End: 10-12-2024 Hemoglobin A1c in Blood HEMOGLOBIN A1C Lab Routine Type 2 diabetes mellitus without complication, without long-term current use of insulin (HCC) Expected: 07/13/2024, Expires: 10/12/2024 [facility] Comment on above: Expected: 07/13/2024 , Expires: 10/12/2024 Start: 07-13-2024 End: 07-13-2024 Patient encounter procedure 07/13/2024 11:20 AM EDT Office Visit [facility] [place] [address] [place] [address] Santo Love MD [address] [place] [address] 3 month follow up [facility] [place] Comment on above: 3 month follow up Start: 07-08-2024 Hemoglobin A1c measurement HbA1C [facility] Start: 07-05-2024 End: 07-05-2024 Patient encounter procedure 07/05/2024 9:30 AM EDT Appointment Mammogram [address] [place] [address] GENEVA SCREENING Mammogram Comment on above: GENEVA SCREENING Start: 07-03-2024 Covid-19 Vaccine ( season) Covid-19 Vaccine () [facility] Start: 07-03-2024 Influenza vaccination C [facility] Start: 06-20-2024 End: 06-20-2024 Patient encounter procedure 06/20/2024 11:00 AM EDT Office Visit [facility] [place] [address] [place] [address] Juliana Davis APRN.SALES ACCOUNT SPECIALIST [address] [place] [address] 1 month follow up increase in lisinopril and blood sugars Family [facility] [place] Comment on above: 1 month follow up in crease in lisinopril and blood sugars Start: 05-14-2024 Glaucoma screening Dilated Retinal E xam [facility] Start: 05-14-2024 Hepatitis C antibody , confirmatory test DILATED RETINAL EXAM [facility] Start: 05-12-2024 Hemoglobin A1c measurement HbA1C [facility] Start: 05-12-2024 End: 05-12-2024 Patient encounter procedure 05/12/2024 10:00 AM EDT Office Visit [facility] [address] [facility] [place] [address] Juliana Davis APRN.EMBLEM CUTTER [address] [place] [address] BP check [facility] Comment on above: BP check Start: 05-07-2024 3 comp foot exam completed DIABETIC FOOT EXAM [facility] Start: 05-07-2024 ANNUAL PCP TEAM SHUTTLE CAR OPERATOR STARR DISEASE VISIT ANNUAL PCP TEAM CHRONIC DISEASE VISIT [facility] Start: 05-07-2024 BP CONTROLLED (<130/80) BP CONTROLLE D (<130/80) [facility] Start: 05-07-2024 Diabetic foot examination Diabetic F oot Exam [facility] Start: 05-01-2024 Influenza vaccination Influenza Vacc ine (#1) [facility] Comment on above: Postponed from 07/03 (Declined at this time) Start: 04-12-2024 End: 07-12-2024 Calcium.ionized [Moles/volume] in Blood CALCIUM, IONIZED Lab Routine Hypercalcemia Expected: 04/12/2024, Expires: 07/12/2024 [facility] Work Phone: Comment on above: Expected: 04/12/2024 , Expires: 07/12/2024 Start: 04-12-2024 End: 07-12-2024 CBC W Auto Differential panel - Blood COMPLETE BLOOD COUNT AND DIFFERENTIAL Lab Routine Decreased iron stores Expected: 04/12/2024, Expires: 07/12/2024 [facility] Comment on above: Expected: 04/12/2024 , Expires: 07/12/2024 Start: 04-12-2024 End: 07-12-2024 Iron and Iron binding capacity panel - Serum or Plasma IRON AND TIBC Lab Routine Decreased iron stores Expected: 04/12/2024, Expires: 07/12/2024 [facility] Comment on above: Expected: 04/12/2024 , Expires: 07/12/2024 Start: 04-08-2024 End: 04-08-2024 Patient encounter procedure 04/08/2024 9:20 AM EDT Office Visit [facility] [address] [place] [phone] Santo Love MD [address] [place] [phone] 3 month follow up [facility] Comment on above: 3 month follow up Start: 04-02-2024 End: 07-02-2024 CBC W Auto Differential panel - Blood CBC + DIFF Lab Routine Type 2 diabetes mellitus without complication, without long-term current use of insulin ([facility]) Iron deficiency anemia due to chronic blood loss Expected: 04/02/2024, Expires: 07/02/2024 [facility] Work Phone: Comment on above: Expected: 04/02/2024 , Expires: 07/02/2024 Start: 04-02-2024 End: 07-02-2024 Comprehensive metabolic 2000 panel - Serum or Plasma COMP METABOLIC PANEL Lab Routine Type 2 diabetes mellitus without complication, without long-term current use of insulin (HCC) Expected: 04/02/2024, Expires: 07/02/2024 [facility] Work Phone: Comment on above: Expected: 04/02/2024 , Expires: 07/02/2024 Start: 04-02-2024 End: 07-02-2024 Hemoglobin A1c in Blood HGB A1C Lab Routine Type 2 diabetes mellitus without complication, without long-term current use of insulin (HCC) Expected: 04/02/2024, Expires: 07/02/2024 [facility] Work Phone: Comment on above: Expected: 04/02/2024 , Expires: 07/02/2024 Start: 02-04-2024 Patient discharge [facility] Start: 02-02-2024 End: 03-03-2025 US Kidney - bilateral and Urinary bladder US KIDNEY/BLADDER Radiology Routine Bilateral hydronephrosis Hydroureter Expected: 02/02/2024 (Approximate), Expires: 03/03/2025 [facility] Work Phone: Comment on above: Expected: 02/02/2024 (Approximate), Expires: 03/03/2025 Start: 01-30-2024 ANNUAL PCP TEAM SHUTTLE CAR OPERATOR STARR DISEASE VISIT ANNUAL PCP TEAM CHRONIC DISEASE VISIT [facility] Start: 01-30-2024 BP CONTROLLED (<130/80) BP CONTROLLE D (<130/80) [facility] Start: 01-30-2024 COVID-19 VACCINE (#1) COVID-19 VACCI NE (#1) [facility] Comment on above: Postponed from 10/01 (Declined at this time) Start: 01-30-2024 SHINGRIX VACCINE (2 of 3) BAGLEY GRIX VACCINE (2 of 3) [facility] Comment on above: Postponed from 08/08 (Declined at this time) Start: 01-30-2024 Urine microalbumin profile [facility] Comment on above: Postponed from 04/13 (Declined at this time) Start: 01-07-2024 End: 04-07-2024 CBC W Auto Differential panel - Blood CBC + DIFF Lab Routine Iron deficiency anemia due to chronic blood loss Expected: 01/07/2024, Expires: 04/07/2024 [facility] Work Phone: Comment on above: Expected: 01/07/2024 , Expires: 04/07/2024 Start: 01-07-2024 End: 04-07-2024 Iron and Iron binding capacity panel - Serum or Plasma IRON + TIBC Lab Routine Iron deficiency anemia due to chronic blood loss Expected: 01/07/2024, Expires: 04/07/2024 [facility] Work Phone: Comment on above: Expected: 01/07/2024 , Expires: 04/07/2024 Start: 01-02-2024 ANNUAL PCP TEAM SHUTTLE CAR OPERATOR STARR DISEASE VISIT ANNUAL PCP TEAM CHRONIC DISEASE VISIT [facility] Start: 12-22-2023 Patient discharge [facility] Start: 12-20-[address] [facility] Start: 12-20-[address] [facility] Start: 12-19-2023 Referral to occupati onal therapist [facility] Start: 12-19-2023 Referral to service [facility] Start: 12-19-[address] [facility] Start: 12-18-[address] [facility] Start: 12-17-2023 Administration of bl ood product [facility] Start: 12-17-[address] [facility] Start: 12-17-[address] [facility] Start: 12-16-2023 Introduction of urin angel luis catheter [facility] Start: 12-16-2023 Administration of bl ood product [facility] Start: 12-15-2023 Application of intermittent pneumatic compression device [facility] Start: 12-15-2023 Care regimes management [facility] Start: 12-15-2023 Notification of physician [facility] Start: 12-15-[address] [facility] Start: 12-15-2023 Following clinical pathway protocol [facility] Start: 12-15-2023 Ambulation without limitation [facility] Start: 12-15-2023 Assessment of risk o f venous thromboembolism [facility] Start: 12-15-2023 Insertion of cathete r into peripheral vein [facility] Start: 12-15-2023 Providing care accor ding to standard [facility] Start: 12-15-2023 Referral to gastroenterology service [facility] Start: 12-15-[address] [facility] Start: 12-15-2023 Admission procedure [facility] Start: 12-15-2023 Verification routine [facility] Start: 12-15-2023 Hospital admission, emergency, from emergency room, medical nature [facility] Start: 12-15-2023 Administration of bl ood product [facility] Start: 02-13-2024 Leukocyte reduced re d blood cells [facility] Start: 12-15-2023 End: 12-16-2023 [facility] Start: 12-15-2023 Patient referral to dietitian [facility] Start: 12-15-[address] [facility] Start: 12-13-2023 Patient discharge [facility] Start: 12-13-[address] [facility] Start: 12-12-2023 Blood chemistry [facility] Start: 12-12-2023 Complete blood count [facility] Start: 12-12-2023 Vitamin B12 measurement [facility] Start: 12-11-2023 Following clinical pathway protocol [facility] Start: 12-11-2023 Application of intermittent pneumatic compression device [facility] Start: 12-11-2023 Ambulation without limitation [facility] Start: 12-11-2023 Assessment of risk o f venous thromboembolism [facility] Start: 12-11-2023 Care regimes management [facility] Start: 12-11-2023 Incentive spirometry [facility] Start: 12-11-2023 Insertion of cathete r into peripheral vein [facility] Start: 12-11-2023 Notification of physician [facility] Start: 12-11-2023 Oxygen therapy [facility] Start: 12-11-2023 Providing care accor ding to standard [facility] Start: 12-11-2023 Referral to gastroenterology service [facility] Start: 12-11-2023 Referral to occupati onal therapist [facility] Start: 12-11-2023 Referral to service [facility] Start: 12-11-2023 End: 12-12-2023 [facility] Start: 12-11-2023 Verification routine [facility] Start: 12-11-2023 Admission procedure [facility] Start: 12-11-[address] [facility] Start: 11-02-2023 Behavioral Health Screening Behavioral Health Screening [facility] Start: 11-02-2023 Depression Assessment Depression Ass essment [facility] Start: 10-02-2023 ANNUAL PCP TEAM SHUTTLE CAR OPERATOR STARR DISEASE VISIT ANNUAL PCP TEAM CHRONIC DISEASE VISIT [facility] Start: 10-02-2023 BP CONTROLLED (<130/80) BP CONTROLLE D (<130/80) [facility] Start: 10-02-2023 Hepatitis B surface antibody level LDL CHOLESTEROL [facility] Start: 08-08-2023 End: 10-08-2023 Hemoglobin A1c in Blood HGB A1C Lab Routine Type 2 diabetes mellitus without complication, without long-term current use of insulin (HCC) Expected: 08/08/2023, Expires: 10/08/2023 [facility] Work Phone: Comment on above: Expected: 08/08/2023 , Expires: 10/08/2023 Start: 08-07-2023 Hemoglobin A1c/Hemoglobin.total in Blood HBA1C [facility] Start: 08-01-2023 Hemoglobin A1c/Hemoglobin.total in Blood HBA1C [facility] Start: 07-17-2023 BP CONTROLLED (<130/80) BP CONTROLLE D (<130/80) [facility] Start: 07-03-2023 Covid-19 Vaccine () Covid-19 Vaccine () [facility] Start: 07-03-2023 Influenza vaccination [facility] Start: 06-27-2023 Adult depression screening assessment DEPRESSION SCREENING [facility] Start: 06-27-2023 ANNUAL PCP TEAM SHUTTLE CAR OPERATOR STARR DISEASE VISIT ANNUAL PCP TEAM CHRONIC DISEASE VISIT [facility] Start: 06-27-2023 BP CONTROLLED (<130/80) BP CONTROLLE D (<130/80) [facility] Start: 06-27-2023 Hepatitis B screening URINE AL BUMIN:CREATININE RATIO [facility] Start: 06-27-2023 Hepatitis C antibody , confirmatory test DILATED RETINAL EXAM [facility] Start: 05-07-2023 End: 07-07-2023 Basic metabolic 2000 panel - Serum or Plasma [facility] Work Phone: Comment on above: Expected: 05/07/2023 , Expires: 07/07/2023 Start: 05-07-2023 End: 07-07-2023 Hemoglobin A1c in Blood [facility] Work Phone: Comment on above: Expected: 05/07/2023 , Expires: 07/07/2023 Start: 05-01-2023 Influenza vaccination INFLUENZA (#1) [facility] Comment on above: Postponed from 07/03 (Declined at this time) Start: 04-02-2023 Hemoglobin A1c/Hemoglobin.total in Blood HBA1C [facility] Start: 12-28-2022 Hemoglobin A1c/Hemoglobin.total in Blood HBA1C [facility] Start: 12-18-2022 3 comp foot exam completed DIABETIC FOOT EXAM [facility] Start: 12-18-2022 ANNUAL PCP TEAM 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 CAR 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 STARR DISEASE VISIT ANNUAL PCP TEAM CHRONIC DISEASE VISIT [facility] Start: 12-18-2022 BP CONTROLLED (<130/80) BP CONTROLLE D (<130/80) [facility] Start: 12-18-2022 Hepatitis B screening URINE AL BUMIN:CREATININE RATIO [facility] Start: 11-02-2022 ADVANCE DIRECTIVE DISCUSSION ADVANCE DIRECTIVE DISCUSSION [facility] Start: 11-02-2022 DEPRESSION ASSESSMENT DEPRESSION ASS ESSMENT [facility] Start: 10-03-2022 End: 12-03-2022 25-hydroxyvitamin D3 [Mass/volume] in Serum or Plasma VITAMIN D 25 HYDROXY Lab Routine Hypercalcemia Expected: 10/03/2022, Expires: 12/03/2022 [facility] Work Phone: Comment on above: Expected: 10/03/2022 , Expires: 12/03/2022 Start: 10-03-2022 End: 12-03-2022 Basic metabolic 2000 panel - Serum or Plasma BASIC METABOLIC PNL Lab Routine Hypercalcemia Expected: 10/03/2022, Expires: 12/03/2022 [facility] Work Phone: Comment on above: Expected: 10/03/2022 , Expires: 12/03/2022 Start: 10-03-2022 End: 12-03-2022 Calcium.ionized [Moles/volume] in Blood CALCIUM IONIZED BLOOD Lab Routine Hypercalcemia Expected: 10/03/2022, Expires: 12/03/2022 [facility] Work Phone: Comment on above: Expected: 10/03/2022 , Expires: 12/03/2022 Start: 10-02-2022 End: 12-02-2022 Calcium.ionized [Moles/volume] in Blood [facility] Work Phone: Comment on above: Expected: 10/02/2022 , Expires: 12/02/2022 Start: 10-02-2022 End: 12-02-2022 CBC W Auto Differential panel - Blood [facility] Work Phone: Comment on above: Expected: 10/02/2022 , Expires: 12/02/2022 Start: 10-02-2022 End: 12-02-2022 Comprehensive metabolic 2000 panel - Serum or Plasma [facility] Work Phone: Comment on above: Expected: 10/02/2022 , Expires: 12/02/2022 Start: 10-02-2022 End: 12-02-2022 Hemoglobin A1c in Blood [facility] Work Phone: Comment on above: Expected: 10/02/2022 , Expires: 12/02/2022 Start: 10-02-2022 End: 12-02-2022 Hepatitis C virus Ab [Presence] in Serum [facility] Work Phone: Comment on above: Expected: 10/02/2022 , Expires: 12/02/2022 Start: 10-02-2022 End: 12-02-2022 LIPID PANEL, NONFASTING [facility] Work Phone: Comment on above: Expected: 10/02/2022 , Expires: 12/02/2022 Start: 10-02-2022 End: 12-02-2022 Parathyrin.intact [Mass/volume] in Serum or Plasma [facility] Work Phone: Comment on above: Expected: 10/02/2022 , Expires: 12/02/2022 Start: 07-03-2022 Influenza vaccination [facility] Start: 06-27-2022 End: 08-27-2022 Comprehensive metabolic 2000 panel - Serum or Plasma COMP METABOLIC PANEL Lab Routine Persistent atrial fibrillation (HCC) Essential hypertension Mixed hyperlipidemia Serum calcium elevated Expected: 06/27/2022, Expires: 08/27/2022 [facility] Work Phone: Comment on above: Expected: 06/27/2022 , Expires: 08/27/2022 Start: 06-27-2022 End: 08-27-2022 Hemoglobin A1c in Blood [facility] Work Phone: Comment on above: Expected: 06/27/2022 , Expires: 08/27/2022 Start: 06-17-2022 COVID-19 VACCINE (#1) COVID-19 VACCI NE (#1) [facility] Comment on above: Postponed from 03/31 (Declined at this time) Postponed from 10/01 (Declined at this time) Start: 06-17-2022 COVID-19 VACCINE (1) COVID-19 VACCIN E (1) [facility] Comment on above: Postponed from 03/31 (Declined at this time) Start: 06-17-2022 Hemoglobin A1c/Hemoglobin.total in Blood HBA1C [facility] Start: 06-15-2022 Hepatitis B surface antibody level LDL CHOLESTEROL [facility] Start: 06-13-2022 Hepatitis C antibody , confirmatory test DILATED RETINAL EXAM [facility] Start: 11-02-2021 ADVANCE DIRECTIVE DISCUSSION ADVANCE DIRECTIVE DISCUSSION [facility] Start: 11-02-2021 DEPRESSION ASSESSMENT DEPRESSION ASS ESSMENT [facility] Start: 09-13-2019 Adult depression screening assessment DEPRESSION SCREENING [facility] Start: 2019 RSV Vaccine (1 - 1-d ose 75+ series) RSV Vaccine (1 - 1-dose 75+ series) [facility] Start: 04-13-2017 Urine microalbumin profile [facility] Start: 09-18-2016 PNEUMOCOCCAL: 65+ (3 - PPSV23 or PCV20) PNEUMOCOCCAL: 65+ (3 - PPSV23 or PCV20) [facility] Start: 08-08-2011 SHINGRIX VACCINE (1 of 2) BAGLEY GRIX VACCINE (1 of 2) [facility] Start: 08-08-2011 SHINGRIX VACCINE (2 of 3) BAGLEY GRIX VACCINE (2 of 3) [facility] Start: 2004 Hepatitis B Vaccine (1 of 3 - Risk 3-dose series) Hepatitis B Vaccine (1 of 3 - Risk 3-dose series) [facility] Start: 2004 RSV Vaccine (1 - 1-d ose 60+ series) RSV Vaccine (1 - 1-dose 60+ series) [facility] Start: 1962 BP CONTROLLED (<130/80) BP CONTROLLE D (<130/80) [facility] Start: 1962 HEPATITIS C SCREENING HEPATITIS C SC GET [facility] Start: 1950 PNEUMOCOCCAL: 65+ (1 - PCV) PNEUMOCOCCAL: 65+ (1 - PCV) [facility] Start: 1944 COVID-19 VACCINE (#1) COVID-19 VACCI NE (#1) [facility] Anion gap measurement [facility] BUN/Creatinine ratio [facility] Calcium [Mass/volume ] in Serum or Plasma [facility] Carbon dioxide, tota l [Moles/volume] in Serum or Plasma [facility] Chloride [Moles/volu me] in Serum or Plasma [facility] Creatinine [Moles/vo lume] in Serum or Plasma [facility] End: 01-16-2025 CT Chest WO contrast CT CHEST WO IVCON Radiology Routine Lung nodules Malignant neoplasm of female breast, unspecified estrogen receptor status, unspecified laterality, unspecified site of breast (HCC) 1 Occurrences starting 12/18/2023 until 01/16/2025 [facility] Work Phone: Comment on above: 1 Occurrences starti ng 12/18/2023 until 01/16/2025 CT Chest WO contrast CT CHEST WO IVCON Radiology Routine Lung nodules Malignant neoplasm of female breast, unspecified estrogen receptor status, unspecified laterality, unspecified site of breast (HCC) 01/12/2024 11:12 AM EDT [facility] Work Phone: End: 08-04-2026 DBT Breast - bilateral screening GENEVA SCREENING W SANCHEZ Radiology Routine Encounter for screening mammogram for malignant neoplasm of breast 1 Occurrences starting 07/05/2025 until 08/04/2026 [facility] Work Phone: Comment on above: 1 Occurrences starti ng 07/05/2025 until 08/04/2026 DBT Breast - bilater al screening GENEVA SCREENING W SANCHEZ Radiology Routine Encounter for screening mammogram for malignant neoplasm of breast 07/06/2025 10:27 AM EDT [facility] Work Phone: End: 06-27-2023 ECG COMPLETE ECG COMPLETE ECG Routine Persistent atrial fibrillation (HCC) Other specified hypotension 1 Occurrences starting 06/27/2022 until 06/27/2023 [facility] Work Phone: Comment on above: 1 Occurrences starti ng 06/27/2022 until 06/27/2023 Erythrocyte mean corpuscular volume determination [facility] End: 07-12-2026 Flexible sigmoidoscopy study COLONOSCOPY DIAGNOSTIC Endoscopy Routine Rectal bleeding 1 Occurrences starting 07/12/2025 until 07/12/2026 [facility] Work Phone: Comment on above: 1 Occurrences starti ng 07/12/2025 until 07/12/2026 Glucose [Mass/volume ] in Serum or Plasma [facility] Hematocrit [Volume Fraction] of Blood [facility] Hemoglobin [Mass/vol ume] in Blood [facility] Leukocytes [#/volume ] in Blood [facility] End: 06-05-2024 GENEVA SCREENING GENEVA SCREENING Radiology Routine Malignant neoplasm of female breast, unspecified estrogen receptor status, unspecified laterality, unspecified site of breast (HCC) 1 Occurrences starting 05/07/2023 until 06/05/2024 [facility] Work Phone: Comment on above: 1 Occurrences starti ng 05/07/2023 until 06/05/2024 Mean corpuscular hemoglobin concentration determination [facility] Mean corpuscular hemoglobin determination [facility] Measurement of renal function [facility] End: 05-12-2025 MG Breast Screening GENEVA SCREENING Radiology Routine History of breast cancer Encounter for screening mammogram for malignant neoplasm of breast 1 Occurrences starting 04/12/2024 until 05/12/2025 [facility] Comment on above: 1 Occurrences starti ng 04/12/2024 until 05/12/2025 MG Breast Screening GENEVA SCREENIN G Radiology Routine History of breast cancer Encounter for screening mammogram for malignant neoplasm of breast 07/05/2024 9:40 AM EDT [facility] Work Phone: Patient referral [facility] Work Phone: Platelets [#/volume] in Blood [facility] POST VOID RESIDUAL POST VOID RES IDUAL Procedures Routine Bilateral hydronephrosis Hydroureter Screening for genitourinary condition Ordered: 02/02/2024 [facility] Work Phone: Comment on above: Ordered: 02/02/2024 Potassium [Moles/vol ume] in Serum or Plasma [facility] Red blood cell count [facility] Red cell distributio n width determination [facility] Removal impacted cer umen instrumentation unilat REMOVAL OF IMPACTED CERUMEN - INSTRUMENTATION Procedures Routine Impacted cerumen of left ear Ordered: 12/13/2024 [facility] Comment on above: Ordered: 12/13/2024 End: 03-30-2026 Screening colonoscopy COLONOSCOPY SCREENING Endoscopy Routine Screening for colon cancer 1 Occurrences starting 03/30/2025 until 03/30/2026 [facility] Work Phone: Comment on above: 1 Occurrences starti ng 03/30/2025 until 03/30/2026 End: 05-22-2023 Screening mammography bi 2-view breast inc cad GENEVA SCREENING Radiology Routine Screening breast examination 1 Occurrences starting 04/22/2022 until 05/22/2023 [facility] Work Phone: Comment on above: 1 Occurrences starti ng 04/22/2022 until 05/22/2023 Sodium [Moles/volume ] in Serum or Plasma [facility] Tissue Pathology bio psy report [facility] Work Phone: Comment on above: Release Upon Orderin g for 1 Occurrences starting 05/09/2025, 1 completed Urea nitrogen [Mass/volume] in Serum or Plasma [facility] End: 02-24-2026 US Abdomen RUQ US ABD RIGHT UPPER QUADRANT Radiology Routine Elevated alkaline phosphatase level 1 Occurrences starting 01/25/2025 until 02/24/2026 [facility] Work Phone: Comment on above: 1 Occurrences starti ng 01/25/2025 until 02/24/2026 US Abdomen RUQ US ABD RIGHT UPP ER QUADRANT Radiology Routine Elevated alkaline phosphatase level 01/26/2025 2:13 PM EDT [facility] Work Phone: US Kidney - bilatera l and Urinary bladder US KIDNEY/BLADDER Radiology Routine Bilateral hydronephrosis Hydroureter 02/18/2024 11:02 AM EDT [facility] Work Phone: [facility] Immunizations Immunization Date Immunization Notes Care Provider Zehra staton 06-24-2019 influenza virus vacc ine, unspecified formulation 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 [facility] 09-18-2015 influenza, high dose seasonal, preservative-free Santo Love MD Work Phone: [facility] 09-18-2015 pneumococcal conjuga te vaccine, 13 valent Santo Love MD Work Phone: [facility] 07-28-2014 influenza, high dose seasonal, preservative-free Santo Love MD Work Phone: [facility] 10-14-2013 influenza virus vacc ine, unspecified formulation Santo Love MD Work Phone: [facility] 10-13-2012 influenza virus vacc ine, unspecified formulation Santo Love MD Work Phone: [facility] 06-13-2011 zoster vaccine, live Santo Love MD Work Phone: [facility] Work Phone: 06-12-2009 pneumococcal polysaccharide vaccine, 23 valent Santo Love MD Work Phone: [facility] Work Phone: 04-13-2007 tetanus toxoid, redu fatemeh diphtheria toxoid, and acellular pertussis vaccine, adsorbed Santo Love MD Work Phone: [facility] Work Phone: Payers Date Payer Category Payer Medicare [id number] 2024 Medicare (Managed Care) BATSHEVA BATISTA [id number] 2024 Medicare [id number] 2024 Medicare [id number] 2023 Private Health Insurance [facility] [id number] 2023 Self-pay [id number] 2023 Medicare [id number] 2018 Unknown ANTHEM BLUE CROS S AND BLUE SHIELD ANTHEM MEDIBLUE HMO [id number] 2018-Present [phone] [address] [place] [address] O [id number] 2018 Unknown [id number] [id number]. [id number] 2015 Unknown [id number] 1944 Unknown [id number] 2.16.840.1.059713.3.579.2. 651 1944 Unknown [id number] 2.16.840.1.854437.3.579.2. 651 Medicare MEDICARE PART A B [id number] Unknown [id number] 2.16.840.1.584948.3.579.2. 462 Unknown [id number] 2.16.840.1.952474.3.579.2. 462 Unknown [id number] 2.16840.1.363360.3.579.2. 462 Unknown [id number] 2.16.840.1.662738.3.579.2. 462 Unknown [id number] 2.16840.1.090271.3.579.2. 462 Unknown [id number] 2.16840.1.856321.3.579.2. 462 Unknown [id number] 2.840.1.061972.3.579.2. 462 Unknown [id number] 2.840.1.778054.3.579.2. 462 Unknown [id number] 2.840.1.641562.3.579.2. 462 Unknown [id number] 2.840.1.389198.3.579.2. 462 Unknown [id number] 2.840.1.840504.3.579.2. 462 Unknown [id number] 2.840.1.755127.3.579.2. 462 Unknown [id number] 2.840.1.419063.3.579.2. 462 Unknown [id number] 2.840.1.471600.3.579.2. 462 Unknown [id number] 2.840.1.611588.3.579.2. 462 Unknown [id number] 2.840.1.670413.3.579.2. 462 Unknown [id number] 2.840.1.337253.3.579.2. 462 Unknown [id number] 2.16840.1.255416.3.579.2. 462 Unknown [id number] 2.840.1.510061.3.579.2. 462 Unknown [id number] 2.16.840.1.247698.3.579.2. 462 Unknown [id number] 2.16.840.1.449969.3.579.2. 462 Unknown [id number] 2.16.840.1.278529.3.579.2. 462 Unknown [id number] 2.16.840.1.872456.3.579.2. 462 Unknown [id number] 2.16.840.1.884238.3.579.2. 462 Unknown [id number] 2.16.840.1.715432.3.579.2. 462 Unknown [id number] 2.16.840.1.389616.3.579.2. 462 Unknown [id number] 2.16.840.1.517274.3.579.2. 462 Unknown [id number] 2.16.840.1.641734.3.579.2. 462 Social History Date Type Detail Facility Start: 11-28-2014 End: 07-17-2022 Tobacco smoking status NHIS Never smoked tobacco [facility] Work Phone: Start: 12-18-2021 End: 01-06-2024 Alcohol intake Current non-drinker of alcohol (finding) [facility] Start: 1945 Sex Assigned At Not on file [facility] Start: 03-14-2022 End: 10-02-2022 Exposure to SARS-CoV-2 (event) Not sure [facility] Start: 11-28-2014 End: 07-17-2022 Tobacco use and exposure Smokeless tobacco non-user [facility] Start: 05-07-2023 End: 01-06-2024 History of Social function [facility] Work Phone: Start: 05-07-2023 End: 01-06-2024 Tobacco use panel [facility] Work Phone: Start: 10-03-2012 Adult Depression Screening Assessment 0 [facility] Work Phone: Start: 12-11-2023 End: 02-01-2024 Tobacco smoking status WYIS Unknown if ever smoked [facility] Start: 02-10-[address] [facility] Start: 1945 Sex Assigned At Female W [facility] Start: 02-02-2024 End: 05-29-2025 Alcohol intake Ex-drinker (finding) [facility] [facility] NEGATED: Highlighted row [facility] Medical Equipment Procedure Code Equipment Code Equipment Original Text Equipment Identifier Dates EGD, with monitored anesthesia care Ligation clip, metallic [id number] FDA Start: 12-15-2023 Use as directed once daily as directed DM: yes Insulin: yes DX: E11.9 [id number], [id number] Start: 10-19-2019 End: 03-01-2025 Comment on above: Use as directed once daily as directed DM: yes Insulin: yes DX: E11.9 Goals Date Patient Goal Desired Activity /State Functional Status Date Assessment Result Facility 12-22-2023 Functional [address] [facility] Work Phone: 12-13-2023 Functional status Ambulates;Up ad joanne [facility] Work Phone: 06-01-2015 Are you deaf, or do you have serious difficulty hearing No 06/01/2015 3:46 PM Juliana Cristobal LPN No [facility] 06-01-2015 Are you blind, or do you have serious difficulty seeing, even when wearing glasses No 06/01/2015 3:46 PM Juliana Cristobal LPN No [facility] 06-01-2015 Do you have serious difficulty walking or climbing stairs No 06/01/2015 3:46 PM Juliana Cristobal LPN No [facility] 06-01-2015 Do you have difficul ty dressing or bathing No 06/01/2015 3:46 PM Juliana Cristobal LPN No [facility] 06-01-2015 Because of a physica l, mental, or emotional condition, do you have difficulty doing errands alone such as visiting a physician's office or shopping No 06/01/2015 3:46 PM Juliana Cristobal LPN No [facility] Mental Status Date Assessment Result Facility 02-04-2024 Cognitive function Level Of Cons ciousness Awake;Alert;Appropriate [facility] Work Phone: 12-22-2023 Cognitive function Voice/Name [facility] Work Phone: 12-13-2023 Cognitive function Level Of Cons ciousness Awake;Alert [facility] Work Phone: 12-12-2023 Cognitive function Appropriate;Cooperativ e [facility] Work Phone: 12-12-2023 Cognitive function Arousable To Voice/Nam e [facility] Work Phone: 12-12-2023 Cognitive function Intact [facility] Work Phone: 06-01-2015 Because of a physica l, mental, or emotional condition, do you have serious difficulty concentrating, remembering, or making decisions No 06/01/2015 3:46 PM EDT Juliana Gaspar LPN No [facility] Clinical Notes 03-26-2018 to 08-19-2025 Telephone Encounter - Eli Lyons MA - 07/07/2025 1:29 PM EDTTelephone Encounter - Eli Lyons MA - 07/07/2025 1:29 PM EDTTelephone Encounter - Eli Lyons MA - 07/07/2025 1:29 PM EDT Note Date & Type Note Facility 08-19-2025 Note HNO ID: [id number] Author: SANTO LOVE MD Service: ? Author [...] General (Family Medicine) Raisa Maradiaga APRN.TOBY as Drag Car Racer (Family Medicine) Juliana Davis APRN.TOBY as Drag Car Racer (Family Medicine) Dr Guerrero, optho. Heart group [...] insulin and Januvia. - Denies seeing a rn production. Hypertension: - Taking losartan and verapamil. - [...] no rashes o (more content not included)... [facility] 08-19-2025 Note HNO ID: [id number] Author: ELI LYONS MA Service: ? Author Type: Commercial Subcontractor Type: Progress Notes Filed: 08/19/2025 11:03 Note [...] clinical practice. J Neurol. 2023Apr 05. doi: 10.1007/p99517-954-44410-8. Epub ahead of print. PMID: [id number]. [facility] 07-07-2025 Telephone encounter Note Patient read mychart result note [facility] 07-07-2025 Telephone encounter Note ----- Message from Juliana Davis sent at 07/07/2025 12:59 PM EDT ----- Mammogram was okay. ----- Message ----- From: Prudencio Kenney In Sent: 07/07/2025 9:52 AM EDT To: Santo Love MD [facility] 07-07-2025 Miscellaneous Notes Patient read mychart result note ----- Message from Juliana Davis sent at 07/07/2025 12:59 PM EDT ----- Mammogram was okay. ----- Message ----- From: Prudencio Kenney In Sent: 07/07/2025 9:52 AM EDT To: Santo Love MD Mammogram was okay. documented in this encounter [facility] 07-07-2025 Progress note Formatting of t his note might be different from the original. Mammogram was okay. [facility] Work Phone: 07-06-2025 History of Present [...] PATIENT PRESENTS WITH AN IMPLANTABLE OR ATTACHED WIDE AREA NETWORK SYSTEMS ADMINISTRATOR: No RADIOLOGY DEPARTMENT: Mammography PERIPHERAL IV DATA: Not applicable SIGNED BY: Porfirio Walden July 06, 2025 11:26 AM documented in this encounter [facility] 07-06-2025 Note HNO ID: [id number] Author: DIONNA SHAY Mammo Tech Service: ? Author Type: Clinic Md Associate Type: Progress Notes Filed: 07/06/2025 11:27 Note [...] PATIENT PRESENTS WITH AN IMPLANTABLE OR ATTACHED WIDE AREA NETWORK SYSTEMS ADMINISTRATOR: No RADIOLOGY DEPARTMENT: Mammography PERIPHERAL IV DATA: Not applicable SIGNED BY: Porfirio Walden July 06, 2025 11:26 AM [facility] 07-05-2025 Telephone encounter Note Order placed. Raisa Maradiaga APRN.CNP [facility] 07-05-2025 Miscellaneous Notes Order placed. Raisa Maradiaga APRN.CNP Patient is scheduled tomorrow 07/06/2025 for her Screening Mammogram. Can you please place Mammogram order? JARVIS Garcia documented in this encounter [facility] 07-05-2025 Telephone encounter Note Patient is scheduled tomorrow 07/06/2025 for her Screening Mammogram. Can you please place Mammogram order? JARVIS Garcia [facility] 06-21-2025 Telephone encounter Note Prescription Refill [...] Genet Mosley June 21, 2025 3:08 PM [facility] 06-21-2025 Miscellaneous Notes Prescription Refill Information [...] 2025 3:08 PM documented in this encounter [facility] 05-29-2025 Instructions Juliana Davis APRN.CNP - 05/29/2025 11:51 AM EDT 1) no change in medications 2) follow up with Dr. Love as scheduled documented in this encounter [facility] 05-29-2025 Note HNO ID: [id number] Author: JULIANA DAVIS APRN.CNP Service: ? Author [...] [facility], [facility] Hydroureter Lung nodule 01/2024 [...] Use Vaping status: (more content not included)... [facility] 05-29-2025 History of Present illness Narrative This [...] percutaneous left heart [facility], [facility] 12[facility]/2023 Hydroureter Lung nodule 01/2024 [...] Juliana Davis APRN.CNP documented in this encounter [facility] 05-17-2025 Telephone encounter Note RN attempting to contact patient to reschedule appt for today with Dr. Calderon. RN transferred phone to ct. I spoke with pt and let her know that after speaking with Dr. Calderon he would like her sent to Dr. Castro for ELS of large colon polyp. Pathology reviewed with patient and patient informed of referral being placed to Dr. aCstro for consult. [facility] Work Phone: 05-17-2025 Miscellaneous Notes RN attempting to contact patient to reschedule appt for today with Dr. Calderon. RN transferred phone to ct. I spoke with pt and let her know that after speaking with Dr. Calderon he would like her sent to Dr. Castro for ELS of large colon polyp. Pathology reviewed with patient and patient informed of referral being placed to Dr. Castro for consult. documented in this encounter [facility] 05-17-2025 Telephone encounter Note Left message for Kellie to return my call concerning her appointment today. I told patient I would send a mychart message she could respond to, or be transferred to General Surgery Nurse.Tisha Mane RN [facility] 05-17-2025 Miscellaneous Notes Left message for Kellie to return my call concerning her appointment today. I told patient I would send a mychart message she could respond to, or be transferred to General Surgery Nurse.Tisha Mane RN documented in this encounter [facility] 05-09-2025 Note Formatting of this n ote might be different from the original. The patient received a copy of Colonoscopy discharge instructions that contain information for how to contact the physician who performed the procedure and when to seek medical care. [facility] 05-09-2025 Miscellaneous Notes The patient received a copy of Colonoscopy discharge instructions that contain information for how to contact the physician who performed the procedure and when to seek medical care. documented in this encounter [facility] 05-09-2025 Attending History and physical note [...] T2DM, MARYCHUY and osteopenia. Kellie follows with [facility] for A.Fib, HTN, HLD & CAD s/p stent x 4 (2008). Last OV 10/25, Last ECHO 07/26 EF: 55%. She denies CP, SOB, dizziness, palpitations, syncope, edema, recent hospitalizations Kellie has undergone prior endoscopy. Last colonoscopy was 09/[address] Calderon at [facility]. Sedation: Midazolam 3 mg IV, Fentanyl [...] [facility] 12/16/2023 Hydroureter Lung nodule 01/2024 Malignant [...] PCP & scheduled for open access in [facility]. Pt was provided Golytely prep instructions which [...] edited and updated as necessary. Elizabeth Ortega APRN.SALES ACCOUNT SPECIALIST [facility] Work Phone: 05-09-2025 History and physical [...] T2DM, MARYCHUY and osteopenia. Kellie follows with [facility] for A.Fib, HTN, HLD & CAD s/p stent x 4 (2008). Last OV 10/25, Last ECHO 07/26 EF: 55%. She denies CP, SOB, dizziness, palpitations, syncope, edema, recent hospitalizations Kellie has undergone prior endoscopy. Last colonoscopy was 09/[address] Calderon at [facility]. Sedation: Midazolam 3 mg IV, Fentanyl [...] percutaneous [facility] 12/16/2023 Hydroureter Lung nodule 01/2024 Malignant [...] edited and updated as necessary. Elizabeth Ortega APRN.SALES ACCOUNT SPECIALIST [facility] 05-09-2025 History and physical note UPDATED [...] T2DM, MARYCHUY and osteopenia. Kellie follows with [facility] for A.Fib, HTN, HLD & CAD s/p stent x 4 (2008). Last OV 10/25, Last ECHO 07/26 EF: 55%. She denies CP, SOB, dizziness, palpitations, syncope, edema, recent hospitalizations Kellie has undergone prior endoscopy. Last colonoscopy was 09/[address] Calderon at [facility]. Sedation: Midazolam 3 mg IV, Fentanyl [...] percutaneous left heart [facility], [facility] 12/16/2023 Hydroureter Lung nodule 01/2024 Malignant [...] edited and updated as necessary. Elizabeth Ortega APRN.SALES ACCOUNT SPECIALIST HISTORY AND PHYSICAL Kellie Dozier : 1945 [...] T2DM, MARYCHUY and osteopenia. Kellie follows with [facility] for A.Fib, HTN, HLD & CAD s/p stent x 4 (2008). Last OV 10/25, Last ECHO 07/26 EF: 55%. She denies CP, SOB, dizziness, palpitations, syncope, edema, recent hospitalizations Kellie has undergone prior endoscopy. Last colonoscopy was 09/[address] Calderon at [facility]. Sedation: Midazolam 3 mg IV, Fentanyl [...] percutaneous left heart catheterization 06/24/2011 [facility], bilateral 12/16/2023 Hydroureter Lung nodule 01/2024 Malignant [...] PCP & scheduled for open access in [facility]. Pt was provided Golytely prep instructions which [...] edited and updated as necessary. Elizabeth Ortega APRN.SALES ACCOUNT SPECIALIST documented in this encounter [facility] 05-04-2025 History of Present illness Narrative [...] T2DM, MARYCHUY and osteopenia. Kellie follows with [facility] for A.Fib, HTN, HLD & CAD s/p stent x 4 (2008). Last OV 10/25, Last ECHO 07/26 EF: 55%. She denies CP, SOB, dizziness, palpitations, syncope, edema, recent hospitalizations Kellie has undergone prior endoscopy. Last colonoscopy was 09/[address] Calderon at [facility]. Sedation: Midazolam 3 mg IV, Fentanyl [...] percutaneous left heart catheterization 06/24/2011 [facility], bilateral 12/16/2023 Hydroureter Lung nodule 01/2024 Malignant [...] were answered. Kellie chooses IV conscious sedation. eKllie was counseled that if there are changes [...] Elizabeth Ortega APRN.TOBY documented in this encounter [facility] 05-04-2025 Note HNO ID: [id number] Author: ELIZABETH ORTEGA APRN.CNP Service: ? Author [...] T2DM, MARYCHUY and osteopenia. Kellie follows with [facility] for A.Fib, HTN, HLD AND CAD s/p stent x 4 (2008). Last OV 10/25, Last ECHO 07/26 EF: 55%. She denies CP, SOB, dizziness, palpitations, syncope, edema, recent hospitalizations Kellie has undergone prior endoscopy. Last colonoscopy was 09/[address] Calderon at [facility]. Sedation: Midazolam 3 mg IV, Fentanyl [...] percutaneous left heart catheterization 06/24/2011 done [place] Hydronephrosis, bilateral 12/16/2023 Hydroureter Lung nodule 01/2024 [...] COLON SURGERY HX Diverticular disease COLONOSCOPY 2006 [facility] COLONOSCOPY 09/12/2014 no polyps, repeat d (more content not included)... [facility] 05-03-2025 Telephone encounter Note Pt notified of results/provider instructions. She verbalized understanding. Brittney Hinton LPN [facility] 05-03-2025 Miscellaneous Notes Pt notified of [...] Raisa Maradiaga APRN.CNP documented in this encounter [facility] 05-03-2025 Telephone encounter Note Can we [...] sugars in 2 weeks. Raisa Maradiaga APRN.TOBY [facility] 05-01-2025 Instructions Raisa Maradiaga APRN.CNP - 05/01/2025 2:13 PM EDT Follow up in 2 weeks Lab work A1C Increased Losartan to 100 mg daily one tab by mouth Bring your home blood pressure machine on your next visit documented in this encounter [facility] 05-01-2025 Note HNO ID: [id number] Author: RAISA MARADIAGA APRN.CNP Service: ? Author [...] [facility] 12/16/2023 Hydroureter Lung nodule 01/2024 Malignant [...] COLON SURGERY HX Diverticular disease COLONOSCOPY 2006 [facility] COLONOSCOPY 09/12/2014 no polyps, repeat due [...] Ischemic Heart Diseas (more content not included)... [facility] 05-01-2025 History of Present illness Narrative This [...] percutaneous left heart catheterization 06/24/2011 done at [place] Hydronephrosis, bilateral 12/16/2023 Hydroureter Lung nodule 01/2024 [...] as needed for worsening/no improvement. Raisa Maradiaga APRN.SALES ACCOUNT SPECIALIST documented in this encounter [facility] 03-30-2025 Instructions Genet Stahl - 03/30/2025 [...] am on dialysis? A: Please consult your cigar patcher prior to scheduling to get instructions pertinent to you. In general, dialysis patients take the Sterecycleytely bowel prep and have the procedure same [...] of the day. documented in this encounter [facility] 03-30-2025 Note HNO ID: [id number] Author: ?, ?, ? Service: ? Author Type: ? Type: Progress Notes Filed: 03/30/2025 12:50 Note Text: POPULATION HEALTH NAVIGATION OUTREACH Action/FYI Patient outreach for Hcc gaps; Leivasy,LUDWIN, AWV. Spoke with patient and scheduled colonoscopy, [...] Wellness Visit Colorectal Cancer Screening 05/08/2025 in [facility] with RAISA MARADIAGA - 2 month BP [facility] - [facility] - wellness , hcc gaps [facility] [facility] - Granulomatous disease (HCC) [D71]; Lung nodules [R91.8]; History of breast cancer [Z85.3] HCC related Navigation Signature: Genet Mosley March 30, 2025 12:26 PM [facility] 03-30-2025 History of Present illness Narrative POPULATION HEALTH NAVIGATION OUTREACH Action/FYI Patient outreach for Hcc gaps; Leivasy,LUDWIN, AWV. Spoke with patient and scheduled colonoscopy, [...] Wellness Visit [facility] - 2 month BP [facility] - colonoscopy 08/19/2025 in [facility] with SANTO LOVE - wellness , hcc gaps 11/[facility] [facility] ([facility]-STAT) - Granulomatous disease (HCC) [D71]; Lung nodules [R91.8]; History of breast cancer [Z85.3] HCC related Navigation Signature: Genetcarissa Mosley March 30, 2025 12:26 PM documented in this encounter [facility] 03-30-2025 Note Patient Outreach (IAIN VÁZQUEZ) ---- KELLIE DOZIER ([id number]) 1945 F NFR Date Time Provider Department 03/30/25 SANTO LOVE During your visit today, we recorded the following information about you: Genet Stahl 03/30/2025 12:50 PM Signed POPULATION HEALTH NAVIGATION OUTREACH Action/FYI Patient outreach for Hcc gaps; Leivasy,LUDWIN, AWV. Spoke with patient and scheduled colonoscopy, [...] Wellness Visit Colorectal Cancer Screening 05/08/2025 in [facility] with RAISA MARADIAGA - 2 month BP check 05/09/2025 in [facility] with ZARI SORENSON - colonoscopy 08/19/2025 in [facility] with SANTO LOVE - wellness , hcc gaps 11/30/[address] [facility] with CT [facility] (I-STAT) - Granulomatous disease (HCC) [D71]; [...] a sip of (more content not included)... [facility] 03-07-2025 Note HNO ID: [id number] Author: RAISA MARADIAGA APRN.SALES ACCOUNT SPECIALIST Service: ? Author Type: Nurse Practitioner Type: [...] sitagliptin in December; previously took it in [id number]. - Currently taking glipizide 2.5 mg BID. [...] [facility], [facility] 12/[facility]/2023 Hydroureter Lung nodule 01/2024 [...] COLON SURGERY HX Diverticular disease COLONOSCOPY 2006 [facility] COLONOSCOPY 09/12/2014 no polyps, repeat due [...] daily. No curren (more content not included)... [facility] 03-07-2025 History of Present illness Narrative This [...] sitagliptin in December; previously took it in 2903-2813. - Currently taking glipizide 2.5 mg BID. [...] percutaneous [facility] 12/16/2023 Hydroureter Lung nodule 01/2024 Malignant [...] confirmation of current medication from patient via Gynzy before making changes. - Patient to message medication details through Gynzy with assistance from granddaughter. - No episodes of hypoglycemia reported. Discussed treatment plan and patient voices understanding. Patient's questions answered appropriately. Medications and potential side effects were discussed and patient voices understanding. Return to the office as scheduled or as needed for worsening/no improvement. Raisa Maradiaga APRN.CNP Recording using Pinstripe software for draft documentation of the visit was discussed with the patient/authorized risk control representative; all questions welcomed and answered. Patient/authorized risk control representative agreed to proceed documented in this encounter [facility] 03-07-2025 Instructions Raisa Maradiaga APRN.CNP - 03/07/2025 11:18 AM EDT Continue taking your losartan by splitting the 50-mg tablets to take 1 tablets daily as prescribed. Continue checking your blood sugar levels each morning and at night so we can better track your readings. -Send me a FoxyTasks message with the medication you are referring to. documented in this encounter [facility] 03-03-2025 Telephone encounter Note The patient [...] Stern RN March 03, 2025 4:21 PM [facility] 03-03-2025 Miscellaneous Notes The patient has [...] 2025 4:21 PM documented in this encounter [facility] 03-01-2025 Telephone encounter Note Prescription Refill [...] Griselda Farley March 01, 2025 8:19 AM [facility] 03-01-2025 Miscellaneous Notes Prescription Refill Information [...] 2025 8:19 AM documented in this encounter [facility] 02-08-2025 Telephone encounter Note OV note faxed to [facility]. Brittney Hinton LPN [facility] 02-08-2025 Miscellaneous Notes OV note faxed to [facility]. Brittney Hinton LPN Can we please fax today's office note to [facility] so they are aware of recent medication changes. aRisa Maradiaga APRN.SALES ACCOUNT SPECIALIST documented in this encounter [facility] 02-07-2025 Telephone encounter Note Can we please fax today's office note to [facility] so they are aware of recent medication changes. Raisa Maradiaga APRN.SALES ACCOUNT SPECIALIST [facility] 02-07-2025 Note HNO ID: [id number] Author: RAISA MARADIAGA APRN.CNP Service: ? Author [...] percutaneous left heart catheterization 06/24/2011 [facility] 12/16/2023 Hydroureter Lung nodule 01/2024 Malignant [...] MG TAB) Take (more content not included)... [facility] 02-07-2025 History of Present illness Narrative This [...] percutaneous left heart catheterization 06/24/2011 done at [place] Hydronephrosis, bilateral 12/16/2023 Hydroureter Lung nodule 01/2024 [...] control remains suboptimal -- recently added in [facility]. - Monitoring blood glucose levels twice daily: fasting in the morning and before bedtime. - Discussed previous effective treatment with Jardiance and Trulicity, but cost prohibitive. - Will contact Herlinda from social media mark[employer] to explore eligibility for finger waver assistance programs for Jardiance or Trulicity. - [...] The patient consented to the use of Pinstripe software for draft documentation of the visit consistent with [facility] s Notice of Privacy Practices. documented in this encounter [facility] 02-07-2025 Instructions Raisa Maradiaga APRN.CNP - [...] blood pressure recheck. documented in this encounter [facility] 02-06-2025 History of Present illness Narrative [...] Darrin Hope RPh documented in this encounter [facility] 02-06-2025 Note HNO ID: [id number] Author: DARRIN HOPE RPh Service: ? 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 Pt voices understanding. Lisa Barber RN [facility] 01-27-2025 Miscellaneous Notes Pt called and [...] this prior to making adjustments. Raisa Maradiaga APRN.SALES ACCOUNT SPECIALIST documented in this encounter [facility] 01-27-2025 Telephone encounter Note Lets try starting her on januvia and see if this is covered by insurance. I went ahead and sent this into the pharmacy. Raisa Maradiaga APRN.SALES ACCOUNT SPECIALIST [facility] 01-27-2025 Telephone encounter Note Patient was notified and is only doing glipizide 2.5 BID and insulin 30 units daily. Not taking Invokana due to lim. Leonela Beckman MA [facility] 01-27-2025 Telephone encounter Note Raisa Maradiaga [...] this prior to making adjustments. Raisa Maradiaga APRN.SALES ACCOUNT SPECIALIST [facility] 01-26-2025 Note HNO ID: [id number] Author: DEBORAH FORREST RDMS Service: ? Author Type: Associate Engineer Type: Progress Notes Filed: 01/27/2025 08:20 Note [...] PATIENT PRESENTS WITH AN IMPLANTABLE OR ATTACHED WIDE [employer] SYSTEMS ADMINISTRATOR: No RADIOLOGY DEPARTMENT: Ultrasound PERIPHERAL IV DATA: Not applicable SIGNED BY: Deborah Forrest RDMS RVT January 27, 2025 8:20 AM [facility] 01-25-2025 Telephone encounter Note Can please let [...] this prior to making adjustments. Raisa Maradiaga APRN.SALES ACCOUNT SPECIALIST T [facility] 01-25-2025 Miscellaneous Notes Can please let [...] this prior to making adjustments. Raisa Maradiaga APRN.SALES ACCOUNT SPECIALIST documented in this encounter [facility] 01-25-2025 Telephone encounter Note Patient given message below. Agreeable to US. Transferred to surgical scheduler. Tonia Stern RN [facility] 01-25-2025 Miscellaneous Notes Patient given message below. Agreeable to US. Transferred to surgical scheduler. Tonia Stern RN Message left for return call. Tierney White MA Alk phos elevation is all liver. Was up before. Can occur with fatty liver that is associated with dm. Check liver us to be on safe side. documented in this encounter [facility] 01-25-2025 Telephone encounter Note Message left for return call. Tierney White MA [facility] 01-25-2025 Telephone encounter Note Alk phos elevation is all liver. Was up before. Can occur with fatty liver that is associated with dm. Check liver us to be on safe side. [facility] 12-13-2024 Note HNO ID: [id number] Author: BRITTNEY HINTON LPN Service: ? Author [...] assessed by LIP pre and post procedure [facility] 12-13-2024 History of Present illness Narrative Ambulatory [...] percutaneous left heart catheterization 06/24/2011 done at [facility], bilateral 12/16/2023 Hydroureter Lung nodule 01/2024 Malignant [...] COLON SURGERY HX Diverticular disease COLONOSCOPY 2006 [facility] COLONOSCOPY 09/12/2014 no polyps, repeat due [...] Raisa Maradiaga APRN.CNP documented in this encounter [facility] 12-13-2024 Instructions Raisa Maradiaga APRN.CNP - 12/13/2024 11:25 AM EST Diabetic recheck in 2 months. (I put an order in for the A1C). Continue the same medications. documented in this encounter [facility] 12-13-2024 Note HNO ID: [id number] Author: RAISA MARADIAGA APRN.CNP Service: ? Author [...] percutaneous left heart catheterization 06/24/2011 done at [place] Hydronephrosis, bilateral 12/16/2023 Hydroureter Lung nodule 01/2024 [...] COLON SURGERY HX Diverticular disease COLONOSCOPY 2006 [facility] COLONOSCOPY 09/12/2014 no polyps, repeat due [...] Ischemic Heart D (more content not included)... [facility] 12-07-2024 Telephone encounter Note Script sent. Raisa Maradiaga APRN.CNP [facility] Work Phone: 12-07-2024 Miscellaneous Notes Script [...] yes [facility]ARMACY: [facility] documented in this encounter [facility] 12-07-2024 Telephone encounter Note Prescription Refill [...] EDVIN Rasmussen December 07, 2024 9:53 AM [facility] 12-07-2024 Telephone encounter Note Patient requesting medication that is on list verapamil ER (VERELAN PM) 300 mg CPCT () Patient last seen 11/19/24 Future visit scheduled: yes PHARMACY: [facility] 12-07-2024 Telephone encounter Note Prescription Refill [...] Griselda Farley December 07, 2024 9:15 AM [facility] 12-07-2024 Miscellaneous Notes Prescription Refill Information The [...] 2024 9:15 AM documented in this encounter [facility] 11-29-2024 History of Present illness Narrative Images from the original note were not included. . [facility] [place] Note Patient name: Kellie Dozier PCP: Santo [...] DATE OF EXAM: Aug 09 2024 10:20AM [facility] 0541 - CT CHEST WO [...] percutaneous left heart catheterization 06/24/2011 done at [facility], bilateral 12/16/2023 Hydroureter Lung nodule 01/2024 Malignant [...] July was normal. Leonela Bear MD [facility] [place] documented in this encounter [facility] 11-29-2024 Note HNO ID: [id number] Author: LEONELA BEAR MD Service: ? Author Type: Physician Type: Progress Notes Filed: 11/29/2024 12:00 Note Text: . [facility] [place] Note Patient name: Kellie Dozier PCP: Santo [...] DATE OF EXAM: Aug 09 2024 10:20AM [facility] 0541 - CT CHEST WO [...] percutaneous left heart catheterization 06/24/2011 [facility], bilateral 12/16/2023 Hydroureter Lung nodule 01/2024 Malignant [...] on 11/29/2024) nitroglyc (more content not included)... [facility] 11-28-2024 Telephone encounter Note X2. Unable to reach patient. Left VM to return call to office. Please read below and advise. Paola Jara MA [facility] 11-28-2024 Miscellaneous Notes X2. Unable to [...] med to help. documented in this encounter [facility] 11-23-2024 Telephone encounter Note LEFT MESSAGE FOR PATIENT TO CALL OFFICE. [facility] 11-23-2024 Telephone encounter Note Is she able to check with the pharmacist or her insurance company to see if there is a med in that class they cover. We changed from jardiance to invokana due to cost. I have no idea which one Is covered. [facility] 11-23-2024 Telephone encounter Note Patient notified of new instructions for the B12. She did mention that the medication that you were going to prescribe for her blood sugar will be about $400 out of pocket for her. Asking if there is something different that she can try? [facility] 11-21-2024 Telephone encounter Note TC no answer. Left VM to return call. EDVIN Rasmussen [facility] 11-21-2024 Telephone encounter Note Can cut her b12 to every other day [facility] 11-21-2024 Telephone encounter Note Patient returned call and went over results, notes from Dr Love with understanding. Patient asking since her Vitamin B 12 is elevated, should she cut back or stop taking the B 12? Did you want to add fractionated Alk Phos order? Pending order [facility] 11-21-2024 Telephone encounter Note Called and left a voicemail for the Patient to call back and ask for a nurse to receive the providers message. Lisa Barber, RN [facility] 11-21-2024 Telephone encounter Note Labs are stable. Alk phos is up. Check fractionated alk phos. Sugars are improving. Urine shows small amount of protein. Recheck urine in a month. If persists, may need to add a med to help. [facility] 11-19-2024 Note HNO ID: [id number] Author: SANTO LOVE MD Service: ? Author [...] percutaneous left heart catheterization 06/24/2011 done at [place] Hydrocophrosis, bilateral 12/16/2023 Hydroureter Lung nodule 01/2024 Malignant neoplasm of breast (female), unspecified site 1998 Breast cancer right Mixed hyperlipidemia OBESITY 12/16/2005 Osteoarthritis of right knee Osteopenia 05/21/2010 Paroxysmal SVT (supraventricular tachycardia) ([facility]) Dr Marcelo Persistent atrial fibrillation (HCC) [...] Diverticular disease COLONOSCOPY (more content not included)... [facility] 11-19-2024 History of Present illness Narrative Patient [...] follow up of renal cyst. Still sees [facility]. Mammogram was normal. MEDICATIONS: Current [...] percutaneous left heart catheterization 06/24/2011 done at [place] Hydronephrosis, bilateral 12/16/2023 Hydroureter Lung nodule 01/2024 [...] COLON SURGERY HX Diverticular disease COLONOSCOPY 2006 [facility] COLONOSCOPY 09/12/2014 no polyps, repeat due [...] weeks and prn. documented in this encounter [facility] 08-09-2024 History of Present illness Narrative [...] PATIENT PRESENTS WITH AN IMPLANTABLE OR ATTACHED WIDE [employer] SYSTEMS ADMINISTRATOR: No RADIOLOGY DEPARTMENT: CT; Exam(s) Completed: Chest PERIPHERAL IV DATA: Not applicable SIGNED BY: RT Darrion(R) August 09, 2024 11:56 AM documented in this encounter [facility] 07-13-2024 History of Present illness Narrative [...] follow up of renal cyst. Still sees [facility]. Mammogram was normal. Latest Ref [...] Abs Lymph 1.00 - 4.00 k/uL 1.50 Pickett% % 8.8 Abs Pickett <0.87 k/uL 0.77 Eosin% % 1.5 Abs [...] HISTORY No date: Arthritis 02/18/2011: Breast cancer ([facility]) No date: CAD (coronary artery disease) [...] percutaneous left heart catheterization Comment: done at [place] 12/16/2023: Hydronephrosis, bilateral No date: Hydroureter 01/2024: Lung nodule 1998: Malignant neoplasm of breast (female), unspecified site Comment: Breast cancer right No date: Mixed hyperlipidemia 12/16/2005: OBESITY No date: Osteoarthritis of right knee 05/21/2010: Osteopenia No date: Paroxysmal SVT (supraventricular tachycardia) ([facility]) Comment: Dr Marcelo No date: Persistent atrial fibrillation ([facility]) 2006: Post-menopausal bleeding 12/16/2005: TUBERCULIN TEST REACTION NO TBC No date: Type 2 diabetes mellitus without complication, without long- term current use of insulin ([facility]) No date: Unspecified constipation No date: [...] exercise 3. Atherosclerosis of coronary artery of [place] heart without angina pectoris, unspecified vessel or [...] weeks or prn. documented in this encounter [facility] 07-06-2024 Note Formatting of this n ote might be different from the original. July 06, 2024 PID: [id number] Kellie Dozier [address] [place] [address] Dear Ms. Dozier, We are pleased to [...] will be kept on file at [facility] as part of your permanent medical record and are available for your continuing care. Thank you for allowing us to help in meeting your health care needs. Sincerely, Dr. Lao Interpreting Radiologist [facility] (Normal over 40) [facility] 07-06-2024 Miscellaneous Notes July 06, 2024 PID: [id number] Kellie Dozier [address] [address] Dear Ms. Dozier, We are pleased to [...] will be kept on file at [facility] as part of your permanent medical record and are available for your continuing care. Thank you for allowing us to help in meeting your health care needs. Sincerely, Dr. Lao Interpreting Radiologist [facility] (Normal over 40) documented in this encounter [facility] 07-05-2024 History of Present illness Narrative [...] PATIENT PRESENTS WITH AN IMPLANTABLE OR ATTACHED WIDE [employer] SYSTEMS ADMINISTRATOR: No RADIOLOGY DEPARTMENT: Mammography PERIPHERAL IV DATA: Not applicable SIGNED BY: RT Lolis(R) July 05, 2024 8:55 AM documented in this encounter [facility] 06-20-2024 Instructions Juliana Davis APRN.CNP - 06/20/2024 11:04 AM EDT 1) Start glipizide 2.5 mg 2 x day with breakfast and supper 2) Continue Lantus 30 units in morning 3) See Dr. Love 07/13/24 documented in this encounter [facility] 06-20-2024 History of Present illness Narrative [...] percutaneous left heart catheterization Comment: done at [place] 12/16/2023: Hydronephrosis, bilateral No date: Hydroureter 01/2024: [...] GLIPIZIDE 2.5 MG TABLET 3. Atherosclerosis of [place] coronary artery of [place] heart without angina pectoris - ICD9: 414.01, ICD10: I25.10 Stable Discussed treatment plan and patient voices understanding. Patient's questions answered appropriately. Medications and potential side effects were discussed and patient voices understanding. Return to the office as scheduled or as needed for worsening/no improvement. Juliana Davis APRN.CNP documented in this encounter [facility] 05-12-2024 Instructions Juliana Davis APRN.CNP - 05/12/2024 10:27 AM EDT 1) Increase lisinopril to 30 mg daily 2) Switch Lantus to 30 units and in the morning, not evening 3) Follow up in 1 month documented in this encounter [facility] 05-12-2024 History of Present illness Narrative [...] percutaneous left heart catheterization 06/24/2011 done at [place] Hydronephrosis, bilateral 12/16/2023 Hydroureter Lung nodule 01/2024 Malignant neoplasm of breast (female), unspecified site 1998 Breast cancer right Mixed hyperlipidemia OBESITY 12/16/2005 Osteoarthritis of right knee Osteopenia 05/21/2010 Paroxysmal SVT (supraventricular tachycardia) ([facility]) Dr Marcelo Persistent atrial fibrillation (HCC) [...] Juliana Davis APRN.CNP documented in this encounter [facility] 04-28-2024 Telephone encounter Note A generic of glargine FlexPen is preferred. [facility] 04-28-2024 Miscellaneous Notes A generic of glargine FlexPen is preferred. Kaylynn with [facility] called to get clarification on what is being request for pt regarding insulin glargine Does pt ant flex pens if so 5 to a box with each being 3 ml. or Vial which contains 10 mls. Please advise pharmacy and may need to send new prescription. Oni Aleman LPN documented in this encounter [facility] 04-28-2024 Telephone encounter Note Kaylynn with [facility] called to get clarification on what is being request for pt regarding insulin glargine Does pt ant flex pens if so 5 to a box with each being 3 ml. or Vial which contains 10 mls. Please advise pharmacy and may need to send new prescription. Oni Aleman LPN [facility] 04-28-2024 Telephone encounter Note Prescription Refill [...] Kaylynn Mosley April 28, 2024 8:07 AM [facility] 04-28-2024 Miscellaneous Notes Prescription Refill Information [...] Patient assistance maria d Aleman [facility] April 28, 2024 8:07 AM documented in this encounter [facility] 04-13-2024 Telephone encounter Note Spoke with patient. Scheduled with Keeley Davis. Tierney White MA [facility] 04-13-2024 Miscellaneous Notes Spoke with patient. Scheduled with Keeley Davis. Tierney White MA Message left for return call to schedule 1 month BP check. Tierney White MA I forgot to put on her after visit summary from today to do a bp check in a nurse in a month when she does her next set of labs. documented in this encounter [facility] 04-12-2024 Telephone encounter Note Message left for return call to schedule 1 month BP check. Tierney White MA [facility] 04-12-2024 Telephone encounter Note I forgot to put on her after visit summary from today to do a bp check in a nurse in a month when she does her next set of labs. [facility] 04-12-2024 Instructions Santo Love MD - 04/12/2024 4:01 PM EDT Stop iron. Resume protonix and start new sugar med and drop off sugars in a month documented in this encounter [facility] 04-12-2024 History of Present illness Narrative [...] followed annually. CAD: Continues to follow with [facility], Dr. Kelley. Last OV 04/07/24 [...] Abs Lymph 1.00 - 4.00 k/uL 1.84 Pickett% % 9.8 Abs [place]ett <0.87 k/uL 0.77 Eosin% % 1.7 Abs [...] percutaneous left heart catheterization 06/24/2011 done at [place] Hydronephrosis, bilateral 12/16/2023 Hydroureter Lung nodule 01/2024 Malignant neoplasm of breast (female), unspecified site 1998 Breast cancer right Mixed hyperlipidemia OBESITY 12/16/2005 Osteoarthritis of right knee Osteopenia 05/21/2010 Paroxysmal SVT (supraventricular tachycardia) ([facility]) Dr Marcelo Persistent atrial fibrillation ([facility]) Post-menopausal bleeding 2007 TUBERCULIN TEST REACTION NO TBC 12/16/2005 Type 2 diabetes mellitus without complication, without long-term current use of insulin ([facility]) Unspecified constipation Unspecified glaucoma(365.9) Glaucoma Low [...] in one month. documented in this encounter [facility] 04-08-2024 History of Present illness Narrative HPI: Patient presents today for office visit for to go over labs and review chronic health problems. Epic was completely down. Because of that we elected to not charge her and have her come back to perform visit. No charge. documented in this encounter [facility] 03-14-2024 Telephone encounter Note Patient has [...] 04/08/2024 Please advise. Thank you. Kaylynn Mosley. [facility] 03-14-2024 Miscellaneous Notes Patient has been [...] you. Kaylynn Mosley. documented in this encounter [facility] 02-23-2024 Telephone encounter Note Called patient. Verified name and date of . Patient informed of results- verbalizes understanding. Janeth Oates LPN [facility] 02-23-2024 Miscellaneous Notes Called patient. Verified name and date of . Patient informed of results- verbalizes understanding. Janeth Oates LPN ----- Message from Zac Duncan PA-C sent at 02/22/2024 6:15 PM EDT ----- Renal US with Benign Renal Cyst, not a concern , no hydronephrosis found Renal cyst can be followed with renal units annually DANNA Renteria, PA, SHASHA documented in this encounter [facility] 02-23-2024 Telephone encounter Note ----- Message from Zac Duncan PA-C sent at 02/22/2024 6:15 PM EDT ----- Renal US with Benign Renal Cyst, not a concern , no hydronephrosis found Renal cyst can be followed with renal units annually DANNA Renteria, SHASHA HOANG [facility] 02-22-2024 History of Present illness Narrative Images from the original note were not included. . [facility] [place] Note Patient name: Kellie Dozier PCP: Santo [...] 1.78 Monocytes % % 10.0 9.3 Abs Pickett <0.87 k/uL 0.83 0.73 Eosinophils % % [...] DATE OF EXAM: Jan 12 2024 11:12AM [facility] 0541 - CT CHEST WO [...] percutaneous left heart catheterization 06/24/2011 done at [place] Hydronephrosis, bilateral 12/16/2023 Hydroureter Lung nodule 01/2024 Malignant neoplasm of breast (female), unspecified site 1998 Breast cancer right Mixed hyperlipidemia OBESITY 12/16/2005 Osteoarthritis of right knee Osteopenia 05/21/2010 Paroxysmal SVT (supraventricular tachycardia) ([facility]) Dr Marcelo Persistent atrial fibrillation ([facility]) Post-menopausal bleeding 2006 TUBERCULIN TEST REACTION NO TBC 12/16/2005 Type 2 diabetes mellitus without complication, without long-term current use of insulin ([facility]) Unspecified constipation Unspecified glaucoma(365.9) Glaucoma Low [...] COLON SURGERY HX [facility]verticular [facility] 09/[facility]/2014 no polyps, repeat due 2018 [...] evidence of recurrence Leonela Bear MD [facility] [place] documented in this encounter [facility] 02-18-2024 History of Present illness Narrative [...] PATIENT PRESENTS WITH AN IMPLANTABLE OR ATTACHED WIDE [employer] SYSTEMS ADMINISTRATOR: No RADIOLOGY DEPARTMENT: Ultrasound PERIPHERAL IV DATA: Not applicable SIGNED BY: Deborah Forrest RDMS RVT February 18, 2024 11:52 AM documented in this encounter [facility] 02-08-2024 Telephone encounter Note Images from the original note were not included. Talya Rodriguez PA-C P phani Carson Please schedule CT chest 6 months- I missed placing the order during the visit. Mandy, Rafael Rodriguez PA-C [facility] 02-08-2024 Miscellaneous Notes Images from the original note were not included. Talya Rodriguez PA-C P [facility] Susu Carson Please schedule CT chest 6 months- I missed placing the order during the visit. Thanks, Rafael Rodriguez PA-C documented in this encounter [facility] 02-08-2024 History of Present illness Narrative [...] Readings: Date: BP: 02/08/2024 119/70[BP Kaitlin[ 02/02/2024 180/76[Azc notified of blood pressure- patient states she [...] percutaneous left heart catheterization 06/24/2011 done at [place] Hydronephrosis, bilateral 12/16/2023 Hydroureter Lung nodule 01/2024 [...] (supraventricular tachycardia) (HCC) Osteoarthritis of Right Knee 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 Persistent Atrial Fibrillation [...] Rodriguez PA-C documented in this encounter [facility] 02-05-2024 Miscellaneous Notes Spoke to patient [...] due on Thursday. documented in this encounter [facility] 02-04-[address] [facility] 02-04-[address] [facility] 02-04-2024 Note [facility] Medical Records Department [address] [place] [address] History Physical Exam 02/04/24 0647 MR#: [id number] Acct: [id number] Name: KELLIE DOZIER [place] Rep #: [id number] : [id number] From: Cullen Friend DO PCP: Dr. Santo Love MD Status:[facility] Location: [place] [address] History and Physical Date of Admission: 02/04/24 KELLIE DOZIER is a 78 F who presents to the office today for *[facility] hospitalization 2.9.24-2.11.24 for management of UGIB with anemia with use of Eliquis for A- fib. ? CT abd/pel IV only 12.11.23 fluid filled small bowel loops, ?enteritis; focal stranding of RLQ from cecum. ? EGD 12.12.23 oozing gastric ulcer, epinephrine/hemospray x5, heater probe; bleeding duodenal AVM. No specimens [facility] hospitalization 12.15.23-12.22.23 for management of GIB [...] Appearance: average body habitus and well nourished [facility] Head: normal to inspection Ears: hearing [...] Affect: normal affect Quality Reporting Tobacco Screening ([facility] 138) Smoking Status: Never smoker Assessment and Plan Assessment and Plan (1) GIB (gastrointestinal bleeding): Status: Resolved (2) Gastric ulcer: Status: Chronic Plan: 78 F who presented to [facility] ED on morning of 12/15/2023 with recurrent upper GI bleed. Patient was recently hospitalized at [facility] from 12/11 to 12/13 for an [...] ??? Hemoglobin droppe (more content not included)... [facility] 02-02-2024 History of Present illness Narrative Images from the original note were not included. [facility] NEW PATIENT CLINIC NOTE SERVICE DATE: 02/02/2024 SERVICE TIME: 6:00 PM NAME: Kellie Dozier CHIEF COMPLAINT: Hydronephrosis HISTORY OF PRESENT ILLNESS: eKllie Dozier is a 78 year old female [...] percutaneous left heart catheterization 06/24/2011 done at [place] Hydronephrosis, bilateral 12/16/2023 Hydroureter Lung nodule 01/2024 [...] Appointment with Zac. documented in this encounter [facility] 01-14-2024 Miscellaneous Notes Phoned patient and went over results, notes from Dr Love with understanding. Assisted with transfer to surgical scheduler to get Pulmonary appt set up. Most nodules are unchanged. There is a thickened area in one of the lungs that they would prefer we watch as well. To be on safe side. I am going to ask pulmonary to follow it. documented in this encounter [facility] 01-12-2024 History of Present illness Narrative [...] PATIENT PRESENTS WITH AN IMPLANTABLE OR ATTACHED WIDE [employer] SYSTEMS ADMINISTRATOR: No RADIOLOGY DEPARTMENT: CT; Exam(s) Completed: Chest PERIPHERAL IV DATA: Not applicable SIGNED BY: RT Darrion(R) January 12, 2024 3:02 PM documented in this encounter [facility] 01-07-2024 Miscellaneous Notes Patient notified and verbalizes understanding. Labs are ok. Anemia is improving since her bleed.can add iron and recheck labs in one month documented in this encounter [facility] 01-06-2024 History of Present illness Narrative No chief complaint on file. HPI: Patient presents today for office visit for hospital follow up. HOSPITAL/ER FOLLOW UP: Reason for visit: upper GI bleed Which facility: admitted to [facility] x 2, ecf stay. Date of [...] percutaneous left heart catheterization 06/24/11 done at [place] Malignant neoplasm of breast (female), unspecified site [...] R91.1 - ct of lung is ordered. aSnto Love MD documented in this encounter [facility] 12-24-2023 History of Present illness Narrative Patient returned call. She says she is currently in [facility] for rehab. Says she was discharged [facility]. Will be there 2-3 weeks. Aline Qiu RN Left message for patient to call for a TCM call. documented in this encounter [facility] 12-22-2023 Note [facility] Medical Records Department [address] [place] [address] Discharge Summary 12/22/23 1330 MR#: [id number] Acct: [id number] Name: KELLIE DOZIER MARIETTA Rep #: [id number] : 1945 78 From: Gomez Johansen MD PCP: Dr. Santo Love MD Status:DIS IN Location: [place] [address] Providers Date of Admission: 12/15/23 Primary Care [...] is a 78 F who presented to [facility] ED on morning of 12/15/2023 with recurrent upper GI bleed. Patient was recently hospitalized at [facility] from 12/11 to 12/13 for an [...] No other acute concerns at this ti ct. Hospital Course: 1. Recurrent upper GI bleed [...] this abdominal pain (more content not included)... [facility] 12-22-2023 Consult note Note Date/Time December 22, 2023 10:25am [facility] Medical Records Department [address] [address] Counseling Note - Pharmacy 12/22/23 1025 MR#: [id number] Acct: [id number] Name: KELLIE DOZIER Rep #:[id number] : 1945 78 From: Titus Madrid PCP: Dr. Santo Love MD Status:ADM I N Y Location: [place] [address] Pharmacy AL Med Reconciliation Pharmacy Service has performed discharge [...] pellet CT,ext.release 300 mg PO QHS blood cfhdofwn59/05/23 brimonidine 0.2 % eye drops 1 drp [...] Signature (if applicable): Date CC: ~ Signed [facility] Work Phone: 1(214) 282-850602-20-2024 Discharge summary Author Gomez Johansen [facility] December 22, 2023 10:14am Note Date/Time December 22, 2023 10:11am [facility] Medical Records Department [address] [place] [address] [facility] Care MR#: [id number] Acct: [id number] Name: KELLIE DOZIER Rep #:[id number] : 1945 78 From: Gomez grove MD PCP: Dr. Santo Love MD Status:ADM I N Certification of patient admission REQUIRED AT TIME OF ADMISSION. I CERTIFY THAT POST-HOSPITAL ECF SERVICES ARE REQUIRED TO BE GIVEN ON AN IN-PATIENT BASIS BECAUSE OF THE ABOVE NAMED PATIENT'S NEED FOR RETIREMENT CARE ON A CONTINUING BASIS FOR THE [...] in before D/C Order can be placed): [facility] 12/22/23 1014 <Electronically signed by Gomez Johansen MD> Cosigner Signature (if applicable): CC: Dr. Nitish Sood MD; Dr. Vincent Schwab DO; Dr. Santo Love MD ~ [facility] Work Phone: 1([phone]) 942-935702-19-2024 Progress note Author Gomez Johansen [facility] December 21, 2023 11:15am Note Date/Time December 21, 2023 11:15am [facility] Medical Records Department [address] [place] [address] Progress Note - Hospitalist 12/21/23 1113 MR#: [id number] Acct: [id number] Name: KELLIE DOZIER MARIETTA Rep #:[id number] : 1945 78 From: Gomez grove MD PCP: Dr. Santo Love MD Status:ADM I N Location: [place] [address] Subjective Subjective Doing well, no issues overnight. [...] 73.8 H, Lymph % (Auto) 13.5 L, Pickett % (Auto) 9.2, Eos % (Auto) 1.8, [...] DVT: SCDs Charges/Coding Visit Charges Inpatient E&M: 87870 Subs Hosp L2 12/21/23 1115 <Electronically signed by Gomez Johansen MD> Cosigner Signature (if applicable): CC: ~ Signed [facility] Work Phone: 1(268) 249-954702-18-2024 Progress note Author Gomez Johansen [facility] December 20, 2023 9:36am Note Date/Time December 20, 2023 9:28am [facility] Medical Records Department [address] [place] [address] Progress Note - Hospitalist 12/20/23 0925 MR#: [id number] Acct: [id number] Name: KELLIE DOZIER Rep #:[id number] : 1945 78 From: Gomez grove MD PCP: Dr. Santo Love MD Status:ADM I N Location: [place] [address] Subjective Subjective Hemoglobin is stable but now [...] 73.2 H, Lymph % (Auto) 13.0 L, Pickett % (Auto) 9.4, Eos % (Auto) 2.2, [...] DVT: SCDs Charges/Coding Visit Charges Inpatient E&M: 18193 Subs Hosp L2 12/20/23 0936 <Electronically signed by Gomez Johansen MD> Cosigner Signature (if applicable): CC: ~ Signed [facility] Work Phone: 1(307) 283-679102-17-2024 Progress note Author Cullen Ferrer [facility] December 19, 2023 4:35pm Note Date/Time December 19, 2023 4:35pm [facility] Medical Records Department [address] [place] [address] Progress Note - GI 12/19/23 1634 MR#: [id number] Acct: [id number] Name: KELLIE DOZIER Rep #:[id number] : 1945 78 From: Cullen Ferrer DO PCP: Dr. Santo Love MD Status:ADM I N Location: [place] [address] Subjective Subjective Patient underwent repeat emergent upper [...] % (Auto) 69.4, Lymph % (Auto) 14.7 L,Pickett % (Auto) 9.8, Eos % (Auto) 2.9, [...] is a 78-year-old female who presented to [facility] ED on 12/11/2023 with hematemesis. [...] Cosigner Signature (if applicable): CC: ~ Signed [facility] Work Phone: 1(426) 219-405802-17-2024 Progress note Author Gomez Johansen [facility] December 19, 2023 10:44am Note Date/Time December 19, 2023 10:45am [facility] Medical Records Department [address] [place] [address] Progress Note - Hospitalist 12/19/23 1043 MR#: [id number] Acct: [id number] Name: KELLIE DOZIER MARIETTA Rep #:[id number] : 1945 78 From: Gomez grove MD PCP: Dr. Santo Love MD Status:ADM I N Location: [place] [address] Subjective Subjective Hemoglobin has slight trend downward [...] % (Auto) 69.4, Lymph % (Auto) 14.7 L,Pickett % (Auto) 9.8, Eos % (Auto) 2.9, [...] DVT: SCDs Charges/Coding Visit Charges Inpatient E&M: 71360 Subs Hosp L2 12/19/23 1044 <Electronically signed by Gomez Johansen MD> Cosigner Signature (if applicable): CC: ~ Signed [facility] Work Phone: 1(407) 358-773502-16-2024 Miscellaneous Notes* Telephone Encounter - Santo Love MD - 12/18/2023 2:54 PM EST Noted. Will follow * Telephone Encounter - Tierney White - 12/18/2023 2:39 PM EST She is still admitted into [facility]. Tierney White * Telephone Encounter - Santo Love MD - 12/18/2023 12:35 PM EST Xray of chest from [facility] shows nodule on right mid lung. Ct scan recommended when able. [facility] [id number] Progress note Author Gomez Johansen [facility] December 18, 2023 12:42pm Note Date/Time December 18, 2023 12:42pm [facility] Medical Records Department [address] [place] [address] Progress Note - Hospitalist 12/18/23 1241 MR#: [id number] Acct: [id number] Name: KELLIE DOZIER Rep #:[id number] : 1945 78 From: Gomez grove MD PCP: Dr. Santo Love MD Status:ADM I N Location: [place] [address] Subjective Subjective Doing well, no issues overnight. [...] % (Auto) Cancelled, Lymph % (Auto) Cancelled, Pickett % (Auto) Cancelled, Eos % (Auto) Cancelled, [...] Tear DropCells Cancelled, Ovalocytes Cancelled, Stomatocytes Cancelled, Harrell-[place]rog[place] Bodies Cancelled, [place] Cells Cancelled, Bite Cells Cancelled, Crenated Cell [...] % (Auto) 70.0, Lymph % (Auto) 12.3 L,Pickett % (Auto) 9.9, Eos % (Auto) 2.9, [...] DVT: SCDs Charges/Coding Visit Charges Inpatient E&M: 18831 Subs Hosp L2 12/18/23 1242 <Electronically signed by Gomez Johansen MD> Cosigner Signature (if applicable): CC: ~ Signed [facility] Work Phone: 1(403) 466-672202-15-2024 Consult note Author Nitish Sood [facility] December 17, 2023 6:22pm Note Date/Time December 17, 2023 6:22pm [facility] Medical Records Department [address] [place] [address] Consultation - Urology 12/17/23 1821 MR#: [id number] Acct: [id number] Name: KELLIE DOZIER Rep #:[id number] : 1945 78 From: Nitish Sood MD PCP: Dr. Santo Love MD Status:ADM I N Location: [place] [address] HPI Consult Data Date of Consult: 12/17/23 [...] office for an appointment coming with questions. [facility] Medical History Atherosclerotic heart disease of [place] coronary artery without angina pectoris Essential hypertension [...] pellet CT,ext.release 300 mg PO QHS blood losblbuo86/05/23 [History Last Taken 12/14/23] brimonidine 0.2 % [...] 73.0 H, Lymph % (Auto) 13.8 L, Pickett % (Auto) 7.3, Eos % (Auto) 2.7, [...] Schwab DO; Dr. Santo Love MD~ Signed [facility] Work Phone: [phone]) 519-861502-15-2024 Progress note Author Cullen Friend [facility] December 17, 2023 5:41pm Note Date/Time December 17, 2023 5:41pm [facility] Medical Records Department [address] [place] [address] Progress Note - GI 12/17/23 1739 MR#: [id number] Acct: [id number] Name: KELLIE DOZIER MARIETTA Rep #:[id number] : 1945 78 From: Cullen Ferrer DO PCP: Dr. Santo Love MD Status:ADM I N Location: [place] [address] Subjective Subjective Patient underwent repeat emergent upper [...] 73.0 H, Lymph % (Auto) 13.8 L, Pickett % (Auto) 7.3, Eos % (Auto) 2.7, [...] is a 78-year-old female who presented to [facility] ED on 12/11/2023 with hematemesis. [...] Cosigner Signature (if applicable): CC: ~ Signed [facility] Work Phone: 1(810) 250-279902-15-2024 Progress note Author Gomez Johansen [facility] December 17, 2023 11:30am Note Date/Time December 17, 2023 11:30am [facility] Medical Records Department [address] [address] Progress Note - Hospitalist 12/17/23 1127 MR#: [id number] Acct: [id number] Name: KELLIE DOZIER MARIETTA Rep #:[id number] : 1945 78 From: Gomez grove MD PCP: Dr. Santo Love MD Status:ADM I N Location: [place] [address] Subjective Subjective Doing well, CT yesterday demonstrated [...] 73.0 H, Lymph % (Auto) 13.8 L, Pickett % (Auto) 7.3, Eos % (Auto) 2.7, [...] DVT: SCDs Charges/Coding Visit Charges Inpatient E&M: 94084 Subs Hosp L2 12/17/23 1130 <Electronically signed by Gomez Johansen MD> Cosigner Signature (if applicable): CC: ~ Signed [facility] Work Phone: 1(146) 762-381202-15-2024 Progress note Author Gomez Johansen [facility] December 17, 2023 11:27am Note Date/Time December 16, 2023 6:59pm [facility] Medical Records Department [address] [place] [address] Progress Note - Hospitalist 12/16/23 1859 MR#: [id number] Acct: [id number] Name: KELLIE DOZIER Rep #:[id number] : 1945 78 From: Gomez grove MD PCP: Dr. Santo Love MD Status:ADM I N Location: [place] [address] Subjective Subjective Hemoglobin this morning was 6.8, [...] RDW Coeff of Emperatriz 15.9 H, Plt Ivlkm194, MPV 10.6, Sodium 141, Potassium 3.8, Chloride [...] DVT: SCDs Charges/Coding Visit Charges Inpatient E&M: 43705 Subs Hosp L2 12/17/23 1127 <Electronically signed by Gomez Johansen MD> Cosigner Signature (if applicable): CC: ~ Signed [facility] Work Phone: 1([phone]) 464-865402-14-2024 Progress note Author Cullen Ferrer [facility] December 16, 2023 5:15pm Note Date/Time December 16, 2023 5:14pm [facility] Medical Records Department [address] [place] [address] Progress Note - GI 12/16/23 1712 MR#: [id number] Acct: [id number] Name: KELLIE DOZIER Rep #:[id number] : 1945 78 From: Cullen Ferrer DO PCP: Dr. Santo Love MD Status:ADM I N Location: [place] [address] Subjective Subjective Patient underwent emergent endoscopy yesterday. [...] RDW Coeff of Emperatriz 15.9 H, Plt Uxpzb446, MPV 10.6, Sodium 141, Potassium 3.8, Chloride [...] is a 78-year-old female who presented to [facility] ED on 12/11/2023 with hematemesis. [...] addressed endoscopically. Charges/Coding Visit Charges Inpatient E&M: 72137 Subs Hosp 12/16/23 6522 <Electronically signed by Cullen Friend DO> Cosigner Signature (if applicable): CC: ~ Signed [facility] Work Phone: 1(773) 377-137102-13-2024 History and physical note Author Tahir Rivas [facility] December 15, 2023 4:30pm Note Date/Time December 15, 2023 11:37am [facility] Medical Records Department [facility] [place] [address] H&P Exam - Hospitalist 12/15/23 1136 MR#: [id number] Acct: [id number] Name: KELLIE DOZIER Rep #:[id number] : 1945 78 From: Tahir ontiveros DO PCP: Dr. Santo Love MD Status:ADM I N Location: [place] [address] HPI - General General Date of Admission: 12/15/23 Date of Service: 12/15/23 Chief Complaint: Recurrent upper GI bleed HPI Narrative KELLIE DOZIER, is a 78 F who presented to [facility] ED on morning of 12/15/2023 with recurrent upper GI bleed. Patient was recently hospitalized at [facility] from 12/11 to 12/13 for an [...] No other acute concerns at this time. [facility] Medical History Atherosclerotic heart disease of [place] coronary artery without angina pectoris Essential hypertension [...] CT,ext.release 300 mg PO QHS blood /05/23 [History Last Taken 12/14/23] brimonidine 0.2 % [...] 80.0 H, Lymph % (Auto) 12.6 L, Pickett % (Auto) 5.6, Eos % (Auto) 0.0, [...] is a 78-year-old female who presented to [facility] on 12/15/2023 with a recurrent [...] 55 minutes. Charges/Coding Visit Charges Inpatient E&M: 98457 Init Hosp L2 12/15/23 1630 <Electronically signed by Tahir Rivas DO> Cosigner Signature (if applicable): CC: Dr. Tahir Rivas DO; Dr. Santo Love MD~ Signed [facility] Work Phone: [phone] 827-369902-13-2024 Procedure [facility] 12-15-2023 Procedure [facility]02-13-2024 History of Present illness Narrative* Eli Lyons Ma - 12/15/2023 10:27 AM EST Patient is currently readmitted to [facility]. Eli Lyons Ma * Eli Lyons Ma - 12/14/2023 10:23 AM EST TRANSITION CARE MANAGEMENT (TCM) INITIAL CONTACT Commercial Subcontractor Outreach Provider Action/FYI: Pt is to follow [...] might be hidden SUMMARY: -Pt discharged from [facility] on 12/13/23. -Admitted for: GI BLEED Do you have a hospital follow up appointment with your PCP? MEDICATIONS: Many patients have questions or concerns about their medications once they are home. Were you prescribed any new medications? Yes If yes, what are those medications? PANTOPRAZOLE 40 MG BID [facility] Discharge summary Author Panchito Zavaleta [facility] December 15, 2023 7:13am Note Date/Time December 15, 2023 5:53am [facility] Medical Records Department [address] [place] [address] Emergency Department Summary 12/15/23 MR#: [id number] Acct: [id number] Name: KELLIE DOZIER Rep #:[id number] : [...] sublingual Zofran but she vomited it up. [facility] Medical History Atherosclerotic heart disease of [place] coronary artery without angina pectoris Essential hypertension [...] 80.0 H Lymph % (Auto) 12.6 L Pickett % (Auto) 5.6 Eos % (Auto) 0.0 [...] min), Including time spent:, Discussing w/Patient &/or Family/Dispatcher [employer]obile [employer], Discussing w/Consultants, Arranging Admission or Transfer and Performing Direct Patient Care at Bedside Discharge Plan Dx/Rx/DC Orders Clinical Impression: Acute blood loss anemia, UGIB (upper gastrointestinal bleed), On apixaban therapy, Pyloric channel ulcer Disposition Disposition: Acute Care Hospital [facility] What to do if you have Problems For any increased pain, shortness of breath, bleeding, nausea or vomiting, chestpain, or any unexpected problems, contact your Primary Care Provider. Call [facility] ([phone]) or report to the closest Emergency Room. Call 911 if necessary. 12/15/23 0713 <Electronically signed by Panchito Zavaleta MD> Cosigner Signature (if applicable): CC: Dr. Santo Love MD ~ Signed [facility] Work Phone: 1(565) 979-494202-11-2024 Discharge summary Author Tahir [facility] December 13, 2023 3:42pm Note Date/Time December 13, 2023 3:32pm [facility] Medical Records Department [address] [place] [address] Discharge Summary 12/13/23 1528 MR#: [id number] Acct: [id number] Name: KELLIE DOZIER Rep #:[id number] : 1945 78 From: Tahir ontiveros DO PCP: Dr. Santo Love MD Status:ADM I N Location: [place] [address] Providers Date of Admission: 12/11/23 Date of Discharge: 12/13/23 Primary Care Physician: Dr. Santo Love MD Consultations 12/11/23 12:20 Consult: Gastroenterology Routine Consulting Provider: [facility] Reason for Consult: GI bleed EMERGENT [...] is a 78-year-old female who presented to [facility] ED on 12/11/2023 with hematemesis. [...] Self Care Charges/Coding Visit Charges Inpatient E&M: 98540 Disch Hosp >30min 12/13/23 1542 <Electronically signed by Tahir Rivas DO> Cosigner Signature (if applicable): CC: Dr. Tahir Rivas DO; Dr. Santo Love MD~ Signed [facility] Work Phone: 1(603) 543-147902-11-2024 Discharge summary Author Tahir Rivas [facility] December 13, 2023 3:27pm Note Date/Time December 13, 2023 3:26pm [facility] Medical Records Department [address] [place] [address] Instructions for Home/Discharge Instructions 12/13/23 1525 MR#: [id number] Acct: [id number] Name: KELLIE DOZIER MARIETTA Rep #:[id number] [...] CC: Dr. Santo Love MD ~ Signed [facility] Work Phone: 1(694) 938-968102-11-2024 [facility] Medical Records Department [address] [place] [address] Discharge Summary 12/13/23 1528 MR#: [id number] Acct: [id number] Name: KELLIE DOZIER Rep #: [id number] : 1945 78 From: Tahir Rivas DO PCP: Dr. Santo Love MD Status:ADM IN Location: [facility] [id number] Providers Date of Admission: 12/11/23 Date of [...] is a 78-year-old female who presented to [facility] ED on 12/11/2023 with hematemesis. [...] average body habitus Constitu (more content not included)...[facility]02-10-2024 Progress note Author Tahir Rivas [facility] December 12, 2023 2:31pm Note Date/Time December 12, 2023 12:29pm [facility] Medical Records Department [address] [place] [address] Progress Note - Hospitalist 12/12/23 1229 MR#: [id number] Acct: [id number] Name: KELLIE DOZIER MARIETTA Rep #:[id number] : 1945 78 From: Tahir ontiveros DO PCP: Dr. Santo Love MD Status:ADM I N Location: [place] [address] Reason for Visit Reason for Visit: Diagnoses [...] is a 78-year-old female who presented to [facility] ED on 12/11/2023 with hematemesis. [...] 35 minutes. Charges/Coding Visit Charges Inpatient E&M: 21043 Subs Hosp L2 12/12/23 1431 <Electronically signed by Tahir Rivas DO> Cosigner Signature (if applicable): CC: ~ Signed [facility] Work Phone: 1([phone]) 667-142702-09-2024 Consult note Author Cullen Ferrer [facility] December 11, 2023 8:37pm Note Date/Time December 11, 2023 8 :37pm [facility] Medical Records Department [address] [place] [address] Consultation - GI 12/11/232028 MR#: [id number] Acct: [id number] Name: KELLIE DOZIER MARIETTA Rep #:[id number] : 1945 78 From: Cullen Ferrer DO PCP: Dr. Santo Love MD Status:ADM I N Location: [place] [id number] HPI Consult Data Date of Consult: [...] injury. She has a history of an [place] with stents in her heart as well as A-fib for which she is on Eliquis. Last dose was a little more than 24 hours ago has not taken her morning medications due to vomiting this morning Her last hgb was 12 severall years ago prior to being admitted today. Her hgb today is 10.2. [facility] Medical History Atherosclerotic heart disease of [place] coronary artery without angina pectoris Essential hypertension [...] 86.0 H, Lymph % (Auto) 7.0 L, Pickett % (Auto) 6.2, Eos % (Auto) 0.1, [...] Sl. Cloudy, Urine pH 5.0, Ur Specific [place] 1.015, Urine Protein 15 H, Urine Glucose [...] is a 78-year-old female who presented to [facility] ED on 12/11/2023 with hematemesis. [...] past midnight. Charges/Coding Visit Charges Inpatient E&M: 51390 Init Hosp L3 12/11/232036 <Electronically signed by Cullen Ferrer DO> Cosigner Signature (if applicable): CC: Dr. Santo Love MD~ Signed [facility] Work Phone: 1([phone]) 210-912302-09-2024 Discharge summary Author Panchito Zavaleta [facility] December 11, 2023 6:37pm Note Date/Time December 11, 2023 8 :27am [facility] Medical Records Department [address] [place] [address] Emergency Department Summary 12/11/23 MR#: [id number] Acct: [id number] Name: KELLIE DOZIER MARIETTA Rep #:[id number] : 1945 78 From: Panchito Zavaleta MD PCP: Dr. Santo Love MD Status:ADM I N Location: [place] [address] HPI HPI - GI History of Present [...] injury. She has a history of an [place] with stents in her heart as well as A-fib for which she is on Eliquis. Last dose was a little more than 24 hours ago has not taken her morning medications due to vomiting this morning. [facility] Medical History Atherosclerotic heart disease of [place] coronary artery without angina pectoris Essential hypertension [...] 86.0 H Lymph % (Auto) 7.0 L Pickett % (Auto) 6.2 Eos % (Auto) 0.1 [...] Sl. Cloudy Urine pH 5.0 Ur Specific [place] 1.015 Urine Protein 15 H Urine Glucose [...] Management Discussion w/another healthcare provider: Hospitalist and Pictures Editor (GI friend) Discharge Plan Dx/Rx/DC Orders Clinical Impression: Blunt traumatic injury of kdruezm-fjhddmpr-akgvds region, Contusion of rib on right side, Paroxysmal atrial fibrillation, Acute blood loss anemia, UGIB (upper gastrointestinal bleed), On apixaban therapy Disposition Disposition: Acute Care Hospital [facility] What to do if you have Problems For any increased pain, shortness of breath, bleeding, nausea or vomiting, chest pain, or any unexpected problems, contact your Primary Care Provider. Call [facility] ([phone]) or report to the closest Emergency Room. Call 911 if necessary. 12/11/23 4659 <Electronically signed by Panchito Zavaleta MD> Cosigner Signature (if applicable): CC: Dr. Santo Love MD ~ Signed [facility] Work Phone: 1(897) 154-726302-09-2024 History and physical note Author Tahir Rivas [facility] December 11, 2023 6:08pm Note Date/Time December 11, 2023 1 1:40am [facility] Medical Records Department [address] [place] [address] H&P Exam - Hospitalist 12/11/23 1137 MR#: [id number] Acct: [id number] Name: KELLIE DOZIER Rep #:[id number] : 1945 78 From: Tahir Camarillo llerick DO PCP: Dr. Santo Love MD Status:ADM I N Location: [place] [address] HPI - General General Date of Admission: 12/11/23 Date of Service: 12/11/23 Chief Complaint: Hematemesis HPI Narrative KELLIE DOZIER, is a 78 F who presented to [facility] ED on 12/11/2023 with hematemesis. [...] chills. No other acute concerns this time. [facility] Medical History Atherosclerotic heart disease of [place] coronary artery without angina pectoris Essential hypertension [...] 86.0 H, Lymph % (Auto) 7.0 L, Pickett % (Auto) 6.2, Eos % (Auto) 0.1, [...] Sl. Cloudy, Urine pH 5.0, Ur Specific [place] 1.015, Urine Protein 15 H, Urine Glucose [...] is a 78-year-old female who presented to [facility] ED on 12/11/2023 with hematemesis. [...] 55 minutes. Charges/Coding Visit Charges Inpatient E&M: 30685 Init Hosp L2 12/11/23 1808 <Electronically signed by Tahir Rivas DO> Cosigner Signature (if applicable): CC: Dr. Tahir Rivas DO; Dr. Santo Love MD~ Signed [facility] Work Phone: [phone]) 559-255911-29-2023 Miscellaneous Notes* Telephone Encounter - [place] Lazara Mosley - 09/30/2023 8:36 AM EST [...] notify patient. Lazara Mosley documented in this encounterOhiohealth Shelby Hospital09-20-2023 Miscellaneous Notes* Telephone Encounter - Herlinda Dickinson MSW - 07/22/2023 11:10 AM EDT Sw called Sw and noted that she did not receive [employer] application for Trulicity. Sw noted that she will mail application again to patient to work on completing. Patient notes that she will work on completing and bring in to Dr. Love office when complete. documented in this encounterOhiohealth Shelby Hospital08-31-2023 History of Present illness Narrative* Dionna [...] 02, 2023 8:28 AM documented in this encounterOhiohealth Shelby Hospital08-28-2023 Miscellaneous Notes* Telephone Encounter - Brittney [...] notify patient. Dafne Wilson documented in this encounterOhiohealth Shelby Hospital07-07-2023 Miscellaneous Notes* Telephone Encounter - Tierney White - 05/08/2023 9:56 AM EDT Kellie informed and verbalized understanding. Tierney White * Telephone Encounter - Santo Love MD - 05/08/2023 9:47 AM EDT Labs are up. Increase trulicity. Recheck a1c in three months. Watch diet. documented in this encounterOhiohealth Shelby Hospital07-06-2023 History of Present illness Narrative* Santo [...] bouts of vertigo. 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 Last episode of vertigo was on 03/24/23. Only lasts for a day and has happened twice. No neuro issues. Red flags for re- assessment reviewed with patient in detail. Consider vestibular therapy. HLD: No myalgias Follows with Cardiology. Still on Eliquis and Verapamil. Having eyelid lift surgery on 05/28/[address] Richardson at [facility]. Component Latest Ref Rng & [...] percutaneous left heart catheterization 06/24/11 done [place] Malignant neoplasm of breast (female), unspecified site 1998 Breast cancer right OBESITY 12/16/2005 Osteoarthritis of right knee Osteopenia 05/21/2010 Paroxysmal SVT (supraventricular tachycardia) ([facility]) Dr Marcelo Pure hypercholesterolemia TUBERCULIN TEST [...] BASIC METABOLIC PNL - HGB A1C 6. 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 anticoagulant - ICD9: V58.61, ICD10: Z79.01 - stable 7. Osteopenia, unspecified location - ICD9: 733.90, ICD10: M85.80 Up to date on bone density. 8. Malignant neoplasm of female breast, unspecified estrogen receptor status, unspecified laterality, unspecified site of breast (HCC) - ICD9: 174.9, ICD10: C50.919 - mammogram Santo Love MD documented in this encounterOhiohealth Shelby Hospital05-05-2023 Miscellaneous Notes* Telephone Encounter - Swati [...] advise. Swati Hall LPN documented in this encounterOhiohealth Shelby Hospital05-05-2023 Miscellaneous Notes* Telephone Encounter - Gail Kem - 03/06/2023 12:03 PM EDT Patient reviewed for Population Health Medication Adherence Pended the following prescription(s) for review. Requested Prescriptions Pending Prescriptions Disp Refills lisinopril (ZESTRIL) 40 mg tablet 90 tablet 3 Sig: Take 0.5 tablets by mouth once daily. Future Appointments Date Time Provider Department Center 05/07/2023 11:00 AM [facility] Please review and refill if appropriate. Thank you. Gail Brownlee March 06, 2023 12:03 PM documented in this encounterOhiohealth Shelby Hospital03-30-2023 History of Present illness Narrative* Santo [...] percutaneous left heart catheterization 06/24/11 done at [place] Malignant neoplasm of breast (female), unspecified site 1998 Breast cancer right OBESITY 12/16/2005 Osteoarthritis of right knee Osteopenia 05/21/2010 Paroxysmal SVT (supraventricular tachycardia) ([facility]) Dr Marcelo Pure hypercholesterolemia TUBERCULIN TEST [...] <130/80 3. Atherosclerosis of coronary artery of [place] heart without angina pectoris, unspecified vessel or [...] date. Santo Love MD documented in this encounterOhiohealth Shelby Hospital03-29-2023 Miscellaneous Notes* Telephone Encounter - SALMA Thomas - 01/28/2023 12:10 PM EDT Rambo took below applications up to ADRIANNA Magdaleno Dr[address] office. * Telephone Encounter - SALMA Thomas - 01/22/2023 11:07 AM EDT Patient spoke with Rambo regarding [employer]-Trulicity and Basaglar. 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 Patient reports that she is also keeping an eye on how much she is spending for [employer] for Eliquis. [employer] has a 3% spend out on prescriptions. Rambo will provide Dr. Love office with [employer] and [employer] applications along with consent for release forms. * Telephone Encounter - SALMA Thomas - 01/21/2023 1:24 PM EDT Rambo left patient message to call Sw back in regards to [employer] PAP for Trulicity and Basaglar. Rambo received note that states patient yearly application ends 03/25/23. Rambo will talk with patient about reapplying to program for above medications. documented in this encounterOhiohealth Shelby Hospital03-17-2023 Miscellaneous Notes* Telephone Encounter - Genet Mosley - 01/16/2023 12:12 PM EDT Pharmacy verified in [facility] Patient has been identified by name [...] advise. Genet Krishna Pss documented in this encounterOhiohealth Shelby Hospital03-02-2023 Instructions* Patient Instructions* Talya Rodriguez PA-C [...] you. You may also be given a [place]-Hallpike position test. You start the [place]-Hallpike test [...] side, with your head angled upward about detention. (Imagine that you are looking atthe head [...] of hearing or severe headache. Published by [employer]. This content is reviewed periodically and is subject to change as new health information becomes available. The information is intended to inform and educate and is not a replacement for medical evaluation, advice, diagnosis or treatment by a healthcare professional. Developed by [employer] Copyright 2007 [employer] and/or one of its subsidiaries. All Rights Reserved. Special Instructions: See information from pharmacy on Zofran and meclizine. Copyright [employer] 2007 Adult Health Advisor Copyright 2007 [employer] All rights reserved. - www.[employer] documented in this encounterOhiohealth Shelby Hospital03-02-2023 History of Present illness Narrative* Talya [...] fibrillation (hcc) Atherosclerosis of coronary artery of [place] heart without angina pectoris, unspecified vessel or [...] Abs Lymph 1.00 - 4.00 k/uL 2.03 Pickett% % 9.9 Abs Pickett <0.87 k/uL 0.78 Eosin% % 1.8 Abs [...] percutaneous left heart catheterization 06/24/11 done at [place] Malignant neoplasm of breast (female), unspecified site 1998 Breast cancer right OBESITY 12/16/2005 Osteoarthritis of right knee Osteopenia 05/21/2010 Paroxysmal SVT (supraventricular tachycardia) ([facility]) Dr Marcelo Pure hypercholesterolemia TUBERCULIN TEST [...] rectum repair COLON SURGERY HX COLONOSCOPY 2006 [facility] COLONOSCOPY 09/12/2014 no polyps, repeat due [...] (supraventricular tachycardia) (HCC) 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 Atherosclerosis of coronary artery of [place] heart without angina pectoris, unspecified vessel or [...] medications Talya Rodriguez PA-C documented in this encounterOhiohealth Shelby Hospital01-26-2023 Miscellaneous Notes* Telephone Encounter - Lisa Barber RN - 11/27/2022 12:36 PM EST Pt called and is notified of providers message and instructions. Pt voices understanding. Pt schedules 12/25/22 with [place] nurse. Lisa Barber RN * Telephone Encounter [...] PCP. Franca Atwood LPN documented in this encounterOhiohealth Shelby Hospital01-26-2023 History of Present illness Narrative* Franca [...] PCP. Franca Atwood LPN documented in this encounterOhiohealth Shelby Hospital01-16-2023 Miscellaneous Notes* Telephone Encounter - Yas [...] and advise. Genet Choi documented in this encounterOhiohealth Shelby Hospital01-10-2023 Miscellaneous Notes* Telephone Encounter - Lisa Barber RN - 11/11/2022 12:57 PM EST Pt called and is notified of providers message and instructions. Pt voices understanding. She states her BP this morning was 151/65. Pt was set up with BP check with [place] nurse on 11/20/22. Lisa Barber RN * [...] she to resume HCTZ? documented in this encounterOhiohealth Shelby Hospital12-02-2022 Miscellaneous Notes* Telephone Encounter - Leonela [...] bp in one month documented in this encounterOhiohealth Shelby Hospital12-01-2022 Instructions* Patient Instructions* Santo Love MD - 10/02/2022 9:28 AM EST documented in this encounterOhiohealth Shelby Hospital12-01-2022 History of Present illness Narrative* Santo [...] gi upset: Yes Still seeing Cardiology at [place]. No nitro. No unusual bleeding or bruising [...] percutaneous left heart catheterization 06/24/11 done at [place] Malignant neoplasm of breast (female), unspecified site [...] ASSESSMENT/PLAN: 1. Atherosclerosis of coronary artery of [place] heart without angina pectoris, unspecified vessel or [...] C50.919 - call if an issues. 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 documented in this encounterOhiohealth Shelby Hospital11-15-2022 Miscellaneous Notes* Telephone Encounter - Griselda [...] notify patient. Griselda Farley documented in this encounterOhiohealth Shelby Hospital09-16-2022 Miscellaneous Notes* Telephone Encounter - Lisa [...] PCP. Franca Atwood LPN documented in this encounterOhiohealth Shelby Hospital09-15-2022 History of Present illness Narrative* Franca [...] PCP. Franca Atwood LPN documented in this encounterOhiohealth Shelby Hospital08-26-2022 Instructions* Patient Instructions* Talya Rodriguez PA-C - 06/27/2022 11:36 AM EDT Cut Lisinopril in half = 20mg daily instead of 40mg Push fluids, eat a little salt documented in this encounterOhiohealth Shelby Hospital08-26-2022 History of Present illness Narrative* Talya Rodriguez PA-C - 06/27/2022 10:20 AM EDT Images from the original note were not included. 77 year old female with c/o here for follow up Doing well. Nonrheumatic mitral valve regurgitation (primary encounter diagnosis) Persistent atrial fibrillation (hcc) Paroxysmal svt (supraventricular tachycardia) (hcc) 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 anticoagulant Atherosclerosis of coronary artery of [place] heart without angina pectoris, unspecified vessel or [...] was preserved with LVEF of 70% 05/11/2009 [facility] transthoracic echo: LV size plus LV [...] percutaneous left heart catheterization 06/24/11 done at [place] Malignant neoplasm of breast (female), unspecified site 1998 Breast cancer right OBESITY 12/16/2005 Osteoarthritis of right knee Osteopenia 05/21/2010 Paroxysmal SVT (supraventricular tachycardia) ([facility]) Dr Marcelo Pure hypercholesterolemia TUBERCULIN TEST [...] Knee Constipation Benign Neoplasm of Colon Diverticulitis 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 Persistent atrial fibrillation (HCC) - ICD9: 427.31, ICD10: I48.19 Controlled rate. Low BP today without sx. - COMP METABOLIC PANEL - ECG COMPLETE 3. 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 Atherosclerosis of coronary artery of [place] heart without angina pectoris, unspecified vessel or [...] PANEL Talya Rodriguez PA-C documented in this encounterOhiohealth Shelby Hospital07-29-2022 Miscellaneous Notes* Letter - Mammography Coordinator - 05/30/2022 9:59 AM EDT May 30, 2022 PID: [id number] Kellie Dozier [address] [place] [address] Dear Ms. Dozier, We are pleased to [...] will be kept on [facility] at [facility] as part of your permanent medical record and are available for your continuing care. Thank you for allowing us to help in meeting your health care needs. Sincerely, Dr. Ramirez Interpreting Radiologist [facility] (Normal over 40) documented in this encounterOhiohealth Shelby Hospital07-29-2022 History of Present illness Narrative* Alyx [...] 30, 2022 9:21 AM documented in this encounterOhiohealth Shelby Hospital07-06-2022 History of Present illness Narrative* RT [...] 07, 2022 9:31 AM documented in this [facility]06-21-2022 Miscellaneous Notes* Telephone Encounter - Juliana [...] advise, Nicole Arriaga RN documented in this encounterOhiohealth Shelby Hospital05-26-2022 Miscellaneous Notes* Telephone Encounter - SALMA Thomas - 03/27/2022 11:26 AM EDT Rambo now has received fax that states [employer] company did receive application. Rambo spoke with patient and she notes that company told her they were missing part of her portion of application. Rambo will refax forms to [employer] PAP for Eliquis. * Telephone Encounter - SALMA Thomas - 03/26/2022 3:42 PM EDT Rambo called [employer] to check and see if patient Eliquis application had been received. Rep states that no, it has not been received. Rambo will work on re-faxing forms. * Telephone Encounter - SALMA Thomas - 03/25/2022 12:13 PM EDT Patient called Rambo in regards to her prescription assistance for Eliquis. Rambo noted [employer] application had been sent to [facility] on 03/19/22 for Eliquis. Sw will check and make sure that it is being processed. Rambo noted that Dr. Love office received [employer] application approval for patient basaglar and trulicity. documented in this encounterOhiohealth Shelby Hospital05-24-2022 Miscellaneous Notes* Telephone Encounter - Eli Lyons Ma - 03/25/2022 10:48 AM EDT Fax received from [facility]. Pt is approved for Trulicity and basaglar for 12 months. Eli Lyons Ma documented in this encounterOhiohealth Shelby Hospital05-18-2022 Miscellaneous Notes* Telephone Encounter - Maria Isabel Troncoso LPN - 03/19/2022 12:17 PM EDT Faxed forms. Will return to . * Telephone Encounter - Maria Isabel Troncoso LPN - 03/19/2022 11:[address] Love's desk to sign. Clinical portion completed. * Telephone Encounter - SALMA Thomas - 03/19/2022 9:11 AM EDT [employer]-Eliquis and [employer]-Trulicity and Basaglar patient assistance forms. Rambo will take forms to Dr. Love office to complete prescriptions on forms and then fax forms to companies. [employer] fax#[phone] [employer] fax#[phone] documented in this encounterOhiohealth Shelby Hospital04-26-2022 Miscellaneous Notes* Telephone Encounter - SALMA Thomas - 02/25/2022 9:11 AM EDT Patient called Rambo to request that Sw [facility] Sw noted that she would patient the application forms. Patient reports that she will work on forms and send back to Dr. Kate burton for completion. documented in this encounterOhiohealth Shelby Hospital04-14-2022 Miscellaneous Notes* Telephone Encounter - Racquel [...] patient. Racquel Haddad Pss documented in this encounterOhiohealth Shelby Hospital05-25-2018 History of Past illness Narrative* Problem [...] this encounter (statuses as of 02/13/2022) [facility] of Past illness Narrative* Problem [...] this encounter (statuses as of 02/25/2022) [facility] of Past illness Narrative* Problem [...] this encounter (statuses as of 03/19/2022) [facility] of Past illness Narrative* Problem [...] this encounter (statuses as of 03/25/2022) [facility] of Past illness Narrative* Problem [...] this encounter (statuses as of 03/27/2022) [facility] of Past illness Narrative* Problem [...] this encounter (statuses as of 04/22/2022) [facility] of Past illness Narrative* Problem [...] this encounter (statuses as of 05/08/2022) [facility] of [facility] illness Narrative* Problem [...] this encounter (statuses as of 05/31/2022) [facility] of Past illness Narrative* Problem [...] this encounter (statuses as of 06/03/2022) [facility] of Past illness Narrative* Problem [...] this encounter (statuses as of 06/27/2022) [facility] of Past illness Narrative* Problem [...] this encounter (statuses as of 07/17/2022) [facility] of Past illness Narrative* Problem [...] this encounter (statuses as of 07/18/2022) [facility] of [facility] illness Narrative* Problem [...] this encounter (statuses as of 09/16/2022) [facility] of [facility] Narrative* Problem [...] this encounter (statuses as of 10/02/2022) [facility] of [facility] Narrative* Problem [...] this encounter (statuses as of 10/03/2022) [facility] of [facility] Narrative* Problem [...] this encounter (statuses as of 11/17/2022) [facility] of [facility] illness Narrative* Problem [...] this encounter (statuses as of 11/27/2022) [facility] of [facility] Narrative* Problem [...] this encounter (statuses as of 12/26/2022) [facility] Narrative* Problem [...] this encounter (statuses as of 01/01/2023) [facility] Narrative* Problem [...] this encounter (statuses as of 01/16/2023) [facility] Narrative* Problem [...] this encounter (statuses as of 01/28/2023) [facility] Narrative* Problem [...] this encounter (statuses as of 01/29/2023) [facility] Narrative* Problem [...] this encounter (statuses as of 03/06/2023) [facility] Narrative* Problem [...] this encounter (statuses as of 05/07/2023) [facility] Narrative* Problem [...] this encounter (statuses as of 05/08/2023) [facility] Narrative* Problem [...] this encounter (statuses as of 06/29/2023) [facility] Narrative* Problem [...] this encounter (statuses as of 07/22/2023) [facility] Narrative* Problem [...] this encounter (statuses as of 09/06/2023) [facility] Narrative* Problem [...] this encounter (statuses as of 09/30/2023) [facility] Narrative* Problem [...] of this encounter (statuses as of 12/15/2023) [facility] Narrative* Problem [...] of this encounter (statuses as of 12/24/2023) [facility] Narrative* Problem [...] of this encounter (statuses as of 12/24/2023) [facility] Narrative* Problem [...] of this encounter (statuses as of 01/06/2024) [facility] Narrative* Problem [...] of this encounter (statuses as of 01/07/2024) [facility] Narrative* Problem [...] of this encounter (statuses as of 01/13/2024) [facility] Narrative* Problem [...] of this encounter (statuses as of 01/14/2024) [facility] Narrative* Problem [...] of this encounter (statuses as of 02/03/2024) [facility] Narrative* Problem [...] of this encounter (statuses as of 02/08/2024) [facility] Narrative* Problem [...] of this encounter (statuses as of 02/19/2024) [facility] Narrative* Problem [...] of this encounter (statuses as of 02/05/2024) [facility] HospitalDischarge summary Author Panchito Zavaleta [facility] December 15, 2023 7:13am Note Date/Time December 15, 2023 5:53am [facility] Medical Records Department [address] [place] [address] Emergency Department Summary 12/15/23 MR#: [id number] Acct: [id number] Name: KELLIE DOZIER MARIETTA Rep #:[id number] [...] sublingual Zofran but she vomited it up. 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 Call [facility] ([phone]) or report to the closest Emergency Room. Call 911 if necessary. 12/15/23712 <Electronically signed by Panchtio Zavaleta MD> Cosigner Signature (if applicable): CC: Dr. Santo Love MD ~ Signed [facility] Work Phone: Evaluation note* Diagnosis Essential hypertension Unspecified essential hypertension documented [facility] this encounter [facility]* Diagnosis Screening breast examination- Primary Breast screening, unspecified documented in this encounter [facility]Evaluation [facility]* Diagnosis Postmenopausal Asymptomatic postmenopausal status (age-related) (natural) documented in this encounter [facility]* Diagnosis Screening breast examination Breast screening, unspecified documented in this encounter [facility]* Diagnosis Nonrheumatic mitral valve regurgitation- Primary Persistent atrial fibrillation (HCC) Atrial fibrillation Paroxysmal SVT (supraventricular tachycardia) (HCC) 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 Long-term (current) use of 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 Atherosclerosis of coronary artery of [place] heart without angina pectoris, unspecified vessel or [...] of colonic polyps [facility]* Diagnosis Essential hypertension- Primary Unspecified essential hypertension documented in this encounter [facility] note* Diagnosis Atherosclerosis of coronary artery of [place] heart without angina pectoris, unspecified vessel or [...] unspecified laterality, unspecified site of breast (HCC) 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 Long-term (current) use of 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 Osteopenia, unspecified location Hypercalcemia Need for hepatitis C screening test Special screening examination for other specified viral diseases [facility] Diagnosis Hypercalcemia- Primary [facility] Diagnosis Essential hypertension- Primary Unspecified essential hypertension documented in this encounter [facility] note* Diagnosis Paroxysmal SVT (supraventricular tachycardia) (HCC)- Primary 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 tachycardia Persistent atrial fibrillation (HCC) Atrial fibrillation Atherosclerosis of coronary artery of [place] heart without angina pectoris, unspecified vessel or lesion type Essential hypertension Unspecified essential hypertension Mixed hyperlipidemia Nonrheumatic mitral valve regurgitation BPPV (benign paroxysmal positional vertigo), unspecified laterality Type 2 diabetes mellitus without complication, without long-term current use of insulin (HCC) documented in this encounter [facility] note* Diagnosis Vertigo- Primary Dizziness and giddiness Essential hypertension Unspecified essential hypertension Atherosclerosis of coronary artery of [place] heart without angina pectoris, unspecified vessel or lesion type Persistent atrial fibrillation (HCC) Atrial fibrillation Paroxysmal SVT (supraventricular tachycardia) (HCC) 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 tachycardia Type 2 diabetes mellitus without complication, without long-term current use of insulin (HCC) Malignant neoplasm of female breast, unspecified estrogen receptor status, unspecified laterality, unspecified site of breast (HCC) Osteopenia, unspecified location [facility]* Diagnosis Essential hypertension Unspecified essential hypertension documented in this encounter [facility] note* Diagnosis Essential hypertension- Primary Unspecified essential hypertension Mixed hyperlipidemia Paroxysmal SVT (supraventricular tachycardia) (HCC) 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 tachycardia Persistent atrial fibrillation (HCC) Atrial fibrillation Type 2 diabetes mellitus without complication, without long-term current use of insulin (HCC) 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 Long-term (current) use of 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 Osteopenia, unspecified location Malignant neoplasm of female breast, unspecified estrogen receptor status, unspecified laterality, unspecified site of breast (HCC) Screening mammogram for breast cancer documented in this encounter [facility] note* Diagnosis Type 2 diabetes mellitus without complication, without long-term current use of insulin (HCC)- Primary documented in this encounter [facility] note* Diagnosis Type 2 diabetes mellitus without complication, without long-term current use of insulin (HCC) documented in this encounter [facility] note* Diagnosis Malignant neoplasm of female breast, unspecified estrogen receptor status, unspecified laterality, unspecified site of breast (HCC) documented in this encounter [facility] note* Diagnosis Essential hypertension Unspecified essential hypertension documented in this encounter [facility] note* Diagnosis Onset Date Resolution Status Acute blood loss anemia acut e Blunt traumatic injury of th dnksd-olrsyqwk-zntsaa region acute Contusion of rib on right side acute On apixaban therapy acute UGIB (upper gastrointestinal bleed) acute Paroxysmal atrial fibrillation chronic [facility] Work Phone: Evaluation note* Diagnosis Onset Date Resolution Status Acute blood loss anemia acut e Blunt traumatic injury of th xdfer-jazhtwar-jzfrbn region acute Contusion of rib on right side acute On apixaban therapy acute UGIB (upper gastrointestinal bleed) acute Paroxysmal atrial fibrillation chronic Acute blood loss anemia acut e On apixaban therapy acute Pyloric channel ulcer acute UGIB (upper gastrointestinal bleed) [facility] Work Phone: Evaluation note* Diagnosis Onset Date Resolution Status Acute blood loss anemia acut e Blunt traumatic injury of th wkglv-rskpxywx-qzrjky region resolved Contusion of rib on right side resolved UGIB (upper gastrointestinal bleed) resolved Acute blood loss anemia acut e Pyloric channel ulcer acute UGIB (upper gastrointestinal bleed) resolved [facility] Work Phone: Evaluation note* Diagnosis Lung nodules- Primary Other nonspecific abnormal finding of lung field Malignant neoplasm of female breast, unspecified estrogen receptor status, unspecified laterality, unspecified site of breast (HCC) documented [facility]* Diagnosis Duodenal ulcer- Primary Duodenal ulcer, unspecified as acute or chronic, without hemorrhage, perforation, or obstruction Gastrointestinal hemorrhage, unspecified gastrointestinal hemorrhage type Persistent atrial fibrillation (HCC) Atrial fibrillation Type 2 diabetes mellitus without complication, without long-term current use of insulin (HCC) Mixed hyperlipidemia Urinary retention Retention of urine, unspecified Hydroureter Lung nodule Solitary pulmonary nodule [facility] Diagnosis Iron deficiency anemia due to chronic blood loss- Primary Iron deficiency anemia secondary to blood loss (chronic) [facility]* Diagnosis Lung nodules Other nonspecific abnormal finding of lung field Malignant neoplasm of female breast, unspecified estrogen receptor status, unspecified laterality, unspecified site of breast (HCC) documented [facility]* Diagnosis Lung nodule- Primary Solitary pulmonary nodule [facility] Diagnosis Onset Date Resolution Status Acute blood loss anemia reso lved Blunt traumatic injury of th uphcv-woqpogoz-nzsvod region resolved Contusion of rib on right side resolved UGIB (upper gastrointestinal bleed) resolved Pyloric channel ulcer acute Acute blood loss anemia reso lved UGIB (upper gastrointestinal bleed) resolved Gastric ulcer chronic GIB (gastrointestinal bleeding) resolved [facility] Work Phone: Evaluation note* Diagnosis Bilateral hydronephrosis- Primary Hydronephrosis Hydroureter Screening for genitourinary condition Screening for other and unspecified genitourinary condition [facility]* Diagnosis Type 2 diabetes mellitus without complication, without long-term current use of insulin (HCC)- Primary Iron deficiency anemia due to chronic blood loss Iron deficiency anemia secondary to blood loss (chronic) Pulmonary nodules Other nonspecific abnormal finding of lung field [facility]* Diagnosis Bilateral hydronephrosis Hydronephrosis Hydroureter [facility] Diagnosis Lung nodule- Primary Solitary pulmonary nodule 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 History of breast cancer Personal history of malignant neoplasm of breast [facility]* Diagnosis Essential hypertension- Primary Unspecified essential hypertension documented [facility]* Diagnosis Essential hypertension- Primary Unspecified essential [...] Other screening mammogram documented in [facility]* Diagnosis Type 2 diabetes mellitus without complication, without long-term current use of insulin (HCC) documented [facility]* Diagnosis Type 2 diabetes mellitus without complication, without long-term current use of insulin (HCC) documented [facility]* Diagnosis Essential hypertension- Primary Unspecified essential hypertension Type 2 diabetes mellitus without complication, without long-term current use of insulin (HCC) documented [facility]* Diagnosis Essential hypertension- Primary Unspecified essential hypertension Type 2 diabetes mellitus without complication, without long-term current use of insulin (HCC) Atherosclerosis of [place] coronary artery of [place] heart without angina pectoris documented in this encounter [facility]* Diagnosis History of breast cancer Personal history of malignant neoplasm of breast Encounter for screening mammogram for malignant neoplasm of breast Other screening mammogram documented [facility]* Diagnosis Essential hypertension- Primary Unspecified essential hypertension Mixed hyperlipidemia Atherosclerosis of coronary artery of [place] heart without angina pectoris, unspecified vessel or [...] neoplasm of [facility] Mixed [facility] Diagnosis Essential hypertension- Primary Unspecified [...] serum enzyme levels [facility] Diagnosis Type 2 diabetes mellitus [...] malignant neoplasms, colon [facility] Diagnosis Essential hypertension- Primary Unspecified essential hypertension Type 2 diabetes mellitus without complication, with long-term current use of insulin (HCC) Mixed hyperlipidemia [facility] Diagnosis Type 2 diabetes mellitus without complication, with long-term current use of insulin (HCC)- Primary [facility] Diagnosis Screen for colon cancer- Primary Special screening for malignant neoplasms, colon History of colon polyps Personal history of colonic polyps [facility]* Diagnosis Screening for colon cancer Special screening for malignant neoplasms, colon [facility] Diagnosis Mass of cecum- Primary Unspecified disorder of intestine [facility] Diagnosis Essential hypertension- Primary Unspecified essential hypertension [facility]* Diagnosis Microalbuminuria- Primary Proteinuria Elevated alkaline phosphatase level Other nonspecific abnormal serum enzyme levels documented [facility]* Diagnosis Type 2 diabetes mellitus without complication, without long-term current use of insulin (HCC) [facility]* Diagnosis Encounter for screening mammogram for malignant neoplasm of breast- Primary Other screening mammogram documented [facility]* Diagnosis Encounter for screening mammogram for malignant neoplasm of breast Other screening mammogram [facility] Diagnosis Rectal bleeding- Primary Hemorrhage of rectum and anus [facility] Author Cullen Ferrer [facility] February 04, 2024 6:47am Note Date/Time February 04, 2024 6:47 am [facility] Medical Records Department [address] [place] [id number] History & Physical Exam 02/04/24 0647 MR#: [id number] Acct: [id number] Name: KELLIE DOZIER MARIETTA Rep #:[id number] : 1945 78 From: Cullen Ferrer DO PCP: Dr. Santo Love MD Status:REG S AL Location: [place] [address] History and Physical Date of Admission: 02/04/24 KELLIE DOZIER, is a 78 F who presents to the office today for *[facility] hospitalization 2.9.24-2.11.24 for management of UGIB with anemia with use of Eliquis for A-fib. ? CT abd/pel IV only 12.11.23 fluid filled small bowel loops, ?enteritis; focal stranding of RLQ from cecum. ? EGD 12.12.23 oozing gastric ulcer, epinephrine/hemospray x5, heater probe; bleeding duodenal AVM. No specimens [facility] hospitalization 12.15.23-12.22.23 for management of GIB [...] Affect: normal affect Quality Reporting Tobacco Screening ([facility] 138) Smoking Status: Never smoker Assessment and Plan Assessment and Plan (1) GIB (gastrointestinal bleeding): Status: Resolved (2) Gastric ulcer: Status: Chronic Plan: 78 F who presented to [facility] ED on morning of 12/15/2023 withrecurrent upper GI bleed. Patient was recently hospitalized at [facility] from 12/11 to 12/13 for an [...] no clinicalchanges since date of exam. 02/04/24 06 <Electronically signed by Cullen Ferrer DO> Cosigner Signature (if applicable): CC: Dr. Santo Love MD; Cullen Ferrer DO~ Signed [facility] Work Phone: Reason for referral (narrative)* Diagnostic Procedure Only (Routine) - Authorized Specialty Diagnoses / Procedures Referred By Elia villegas Referred To Contact [facility] Diagnoses Screening breast examination Procedures GENEVA SCREENING SCREENING MAMMOGRAPHY BI 2-VIEW BREAST INC Santo Moss MD [address] [place] [address] [facility] [address] [place] [address] Referral ID Status Reason Start Date Expiration Date Visits Requested Visits Authorized [id number] Authorized Auto-Generat ed Referral 04/22/2022 05/22/2023 1 1 [facility] for referral (narrative)* Diagnostic Procedure Only (Routine) - Closed Specialty Diagnoses / Procedures Referred By Elia villegas Referred To Contact [facility] Diagnoses Screening breast examination Procedures GENEVA SCREENING SCREENING MAMMOGRAPHY BI 2-VIEW BREAST INC Santo Moss MD [address] [place] [address] [facility] [address] [email or web address] [address] Referral ID Status Reason Start Date Expiration Date V isits Requested Visits Authorized [id number] Closed Auto-Generate d Referral 04/22/2022 05/22/2023 1 1 [facility] for referral (narrative)* Outpatient Procedure (Routine) - Authorized Specialty Diagnoses / Procedures Referred By Contac t Referred To [facility] Diagnoses Persistent atrial fibrillation (HCC) Other specified hypotension Procedures ECG COMPLETE ECG ROUTINE ECG W/LEAST 12 LDS W/I&R Talya Rodriguez PA-C [address] [place] [address] [facility] [place] [address] [email or web address] [address] Referral ID Status Reason Start Date Expiration Date Visits Requested Visits Authorized [id number] Authorized Auto-Generat ed Referral 06/27/2022 06/27/2023 1 1 [facility] for referral (narrative)* Diagnostic Procedure Only (Routine) - Authorized Specialty Diagnoses / Procedures Referred By Contac t Referred To Contact [facility] Diagnoses Malignant neoplasm of female breast, unspecified estrogen receptor status, unspecified laterality, unspecified site of breast (HCC) Procedures GENEVA SCREENING SCREENING MAMMOGRAPHY BI 2-VIEW BREAST INC Santo Moss MD [address] [place] [address] [facility] [address] [address] Referral ID Status Reason Start Date Expiration Date Visits Requested Visits Authorized [id number] Authorized Auto-Generat ed Referral 05/07/2023 06/05/2024 1 1 [facility] for referral (narrative)* Diagnostic Procedure Only (Routine) - Closed Specialty Diagnoses / Procedures Referred By Contac t Referred To Contact [facility] Diagnoses Malignant neoplasm of female breast, unspecified estrogen receptor status, unspecified laterality, unspecified site of breast (HCC) Procedures GENEVA SCREENING SCREENING MAMMOGRAPHY BI 2-VIEW BREAST INC Santo Moss MD [address] [place] [address] [facility] [address] [place] [address] Referral ID Status Reason Start Date Expiration Date V isits Requested Visits Authorized [id number] Closed Auto-Generate d Referral 05/07/2023 06/05/2024 1 1 [facility] for referral (narrative)* Diagnostic Procedure Only (Routine) - Pending Review Specialty Diagnoses / Procedures Referred By Elia villegas Referred To Contact [facility] Diagnoses Bilateral hydronephrosis Hydroureter Procedures US KIDNEY/BLADDER US RETROPERITONEAL REAL TIME W/IMAGE COMPLETE Zac Duncan PA-C [address] [place] [address] Us Imaging [id number] Referral ID Status Reason Start Date Expiration Date Visits Requested Visits Authorized [id number] Pending Review Auto-Generat ed Referral 02/02/2024 03/03/2025 1 1 [facility] for referral (narrative)* Diagnostic Procedure Only (Routine) - Pending Review Specialty Diagnoses / Procedures Referred By Elia villegas Referred To Contact [facility] Diagnoses History of breast cancer Encounter for screening mammogram for malignant neoplasm of breast Procedures GEENVA SCREENING SCREENING MAMMOGRAPHY BI 2-VIEW BREAST INC Santo Moss MD [address] [place] [address] [facility] [address] [place] [address] Referral ID Status Reason Start Date Expiration Date Visits Requested Visits Authorized [id number] Pending Review Auto-Generat ed Referral 04/12/2024 05/12/2025 1 1 [facility] for visit Narrative* Diagnostic Procedure Only (Routine) - Closed Specialty Diagnoses / Procedures Referred By Elia villegas Referred To Contact [facility] Diagnoses Screening breast examination Procedures GENEVA SCREENING SCREENING MAMMOGRAPHY BI 2-VIEW BREAST INC Santo Moss MD [facility] [place] [address] Br Imaging [address] [place] [place] [address] Referral ID Status Reason Start Date Expiration Date V isits Requested Visits Authorized [id number] Closed Auto-Generate d Referral 04/22/2022 05/22/2023 1 1 [facility] for visit Narrative* Diagnostic Procedure Only (Routine) - Closed Specialty Diagnoses / Procedures Referred By Contac t Referred To Contact [facility] Diagnoses Malignant neoplasm of female breast, unspecified estrogen receptor status, unspecified laterality, unspecified site of breast (HCC) Procedures GENEVA SCREENING SCREENING MAMMOGRAPHY BI 2-VIEW BREAST INC Santo Moss MD [address] [place] [address] [facility] Imaging [address] [place] [address] Referral ID Status Reason Start Date Expiration Date V isits Requested Visits Authorized [id number] Closed Auto-Generate d Referral 05/07/2023 06/05/2024 1 1 [facility] for visit Narrative* Diagnostic Procedure Only (Routine) - Closed Specialty Diagnoses / Procedures Referred By Contac t Referred To Contact [facility] Diagnoses History of breast cancer Encounter for screening mammogram for malignant neoplasm of breast Procedures GENEVA SCREENING SCREENING MAMMOGRAPHY BI 2-[place] [address] [place] [address] [facility] [address] [place] [address] Referral ID Status Reason Start Date Expiration Date V isits Requested Visits Authorized [id number] Closed Auto-Generate d Referral 04/12/2024 05/12/2025 1 1 [facility] for visit Narrative* Diagnostic Procedure Only (Routine) - Closed Specialty Diagnoses / Procedures Referred By Elia t Referred To Contact [facility] Diagnoses Elevated alkaline phosphatase level Procedures US ABD RIGHT UPPER QUADRANT US ABDOMINAL REAL TIME W/IMAGE LIMITED Santo Love MD [address] [place] [address] Phone: tel: fax: [place] [address] Referral ID Status Reason Start Date Expiration Date V isits Requested Visits Authorized [id number] Closed Auto-Generate d Referral 01/25/2025 02/24/2026 1 1 [facility] for visit Narrative* Outpatient Procedure (Routine) - Closed Specialty Diagnoses / Procedures Referred By Elia villegas Referred To Contact [facility] Diagnoses Screening for colon cancer Procedures COLONOSCOPY SCREENING COLONOSCOPY FLX DX W/COLLJ SPEC WHEN PFRMD Santo Love MD [address] [place] [address] Phone: tel: fax: Zari Sorenson MD [address] [place] [address] Phone: tel: fax: Referral ID Status Reason Start Date Expiration Date V isits Requested Visits Authorized [id number] Closed Auto-Generate d Referral 05/09/2025 06/09/2025 1 1 [facility] for visit Narrative* Diagnostic Procedure Only (Routine) - Closed Specialty Diagnoses / Procedures Referred By Elia villegas Referred To Contact [facility] Diagnoses Encounter for screening mammogram for malignant neoplasm of breast Procedures GENEVA SCREENING W SANCHEZ SCREENING DIGITAL BREAST TOMOSYNTHESIS BI SCREENING MAMMOGRAPHY BI 2-VIEW BREAST INC CAD Santo Love MD [address] [place] [address] Phone: tel: fax: [facility] [address] [place] [address] Referral ID Status Reason Start Date Expiration Date V isits Requested Visits Authorized [id number] Closed Auto-Generate d Referral 07/05/2025 11/01/2025 1 1 [facility] Summary Purpose Family History No Family History Records Found Relationship Condition Age at Onset Recorded Date/T estevan mother Hypertension Unknown Diabetes mellitus Unknown Cerebrovascular accident (CVA) Unknown Coronary artery disease Unknown father History of deep venous thrombosis Unknown Advance Directives No Advanced Directives Records FoundDocuments on File Type Date Recorded 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 Advance Directive(s) 09/17/2021 6:44 AM Advance Directive(s) 09/11/2020 10:43 AM Advance Directive(s) 11/13/2016 12:33 PM Advance Directive(s) 11/06/2016 12:34 PM Documents on File Type Date Recorded 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 Advance Directive(s) 09/17/2021 6:44 AM Advance Directive(s) 09/11/2020 10:43 AM Advance Directive(s) 11/13/2016 12:33 PM Advance Directive(s) 11/06/2016 12:34 PM Advance Directive Response Recorded Date/ Time Advance Directives No October 6:26pm Living Will No December 11 8:16am Power of Supervisor [employer] Education No December 11, 2023 8:16am Advance Directive Response Recorded Date/ Time Advance Directives No October 6:26pm Living Will No December 11 12:46pm Power of Supervisor [employer] No December 11, 2023 12:46pm Advance Directive Response Recorded Date/ Time Advance Directives No October 6:26pm Living Will No December 15 5:51am Power of Supervisor Elementary Education No December 15, 2023 5:51am Advance Directive Response Recorded Date/ Time Advance Directives No October 6:26pm Living Will No December 15 10:24am Power of Supervisor Elementary Education No December 15, 2023 10:24am Advance Directive Response Recorded Date/ Time Advance Directives No October 7:26pm Living Will No December 15 11:24am Power of Supervisor Elementary Education No December 15, 2023 11:24am Advance Directive Response Recorded Date/ Time Advance Directives No October 7:26pm Living Will No February 01, 2024 3:07pm Power of Supervisor Elementary Education No January 31 3:07pm Medications Administered Section [...] loss ane ailyn Blunt traumatic injury of degqami-gxyvhwny-ydyrzk region Contusion of rib on right side On apixaban therapy UGIB (upper gastrointestinal bleed) Paroxysmal atrial fibrillation Chief Complaint GI BLEED GI BLEED GI BLEED GI BLEED Reason for Visit Acute blood loss ane ailyn Blunt traumatic injury of ydpjdom-lquuweny-rwlkrg region Contusion of rib on right side On apixaban therapy UGIB (upper gastrointestinal bleed) Paroxysmal atrial fibrillation Chief Complaint GI BLEED GI BLEED GI BLEED GI BLEED ABLA, UGIB Reason for Visit Acute blood loss ane ailyn Blunt traumatic injury of wltfydc-osgkugxf-gvrdyy region Contusion of rib on right side [...] loss ane ailyn Blunt traumatic injury of pwactvc-oktmtgkj-bltcsw region Contusion of rib on right side [...] loss ane ailyn Blunt traumatic injury of xdwijle-yegqxxvq-ezsbqr region Contusion of rib on right side [...] TOMOGRAPHY THORAX W/O CNTRST Santo Love MD [address] [place] [address] [place] [address] Referral ID Status Reason Start Date Expiration Date Visits Requested Visits Authorized [id number] Pending Review Auto-Generat ed Referral 12/18/2023 01/16/2025 1 1 Specialty Diagnoses / Procedures Referred By Contac t Referred To Contact Urology / UROLOGY Diagnoses Urinary retention Hydroureter Procedures CONSULT TO UROLOGY OFFICE/OUTPATIENT [facility] 60 MINUTES Santo Love MD [address] [place] [address] Urol [facility] [address] [place] [address] Referral ID Status Reason Start Date Expiration Date Visits Requested Visits Authorized [id number] Authorized PCP Requested Referral 01/06/2024 11/01/2024 1 1 Specialty Diagnoses / Procedures Referred By Contac t Referred To Contact Gastroenterology Diagnoses Duodenal ulcer Gastrointestinal hemorrhage, unspecified gastrointestinal hemorrhage type Procedures CONSULT TO GASTROENTEROLOGY Santo Love MD [address] [place] [address] Referral ID Status Reason Start Date Expiration Date Visits Requested Visits Authorized [id number] Ref Not Required PCP Requested Referral 01/06/2024 01/05/2025 1 1 Specialty Diagnoses / Procedures Referred By Contac t Referred To Contact Pulmonary and Critical Care Medicine Diagnoses Lung nodule Procedures CONSULT TO PULM/CRITICAL CARE OFFICE/OUTPATIENT [facility] 60 MINUTES Santo Love MD [address] [place] [address] Referral ID Status Reason Start Date Expiration Date Visits Requested Visits Authorized [id number] Pending Review PCP Requested Referral 01/14/2024 01/13/2025 1 1 Specialty Diagnoses / Procedures Referred By Contac t Referred To Contact CT IMAGING Diagnoses Pulmonary nodules Procedures CT CHEST WO IVCON DIAGNOSTIC COMPUTED TOMOGRAPHY THORAX W/O CNTRST Talya Rodriguez PA-C [address] [place] [address] [place] [address] Referral ID Status Reason Start Date Expiration Date Visits Requested Visits Authorized [id number] Authorized Auto-Generat ed Referral 08/09/2024 03/09/2025 1 1 Specialty Diagnoses / Procedures Referred By Contac t Referred To Contact Pulmonary and Critical Care Medicine Diagnoses Lung nodule Radiation fibrosis of lung (HCC) Granulomatous disease (HCC) Procedures CONSULT TO PULM/CRITICAL CARE OFFICE/OUTPATIENT [facility] MDM 60 MINUTES Santo Love MD [address] [place] [address] Referral ID Status Reason Start Date Expiration Date Visits Requested Visits Authorized [id number] Authorized PCP Requested Referral 11/19/2024 11/19/2025 1 1 Specialty Diagnoses / Procedures Referred By Contac t Referred To Contact CT IMAGING Diagnoses Granulomatous disease (HCC) Lung nodules History of breast cancer Procedures CT CHEST WO IVCON DIAGNOSTIC COMPUTED TOMOGRAPHY THORAX W/O CNTMALLORYT Leonela Bear MD [address] [place] [address] [place] [address] Referral ID Status Reason Start Date Expiration Date Visits Requested Visits Authorized [id number] Pending Review Auto-Generat ed Referral 11/29/2025 12/29/2025 1 1 Additional Source Comments INFORMATION SOURCE (unrecogn ized section and content) DATE CREATED AUTHOR 07/02/2018 [facility] DATE CREATED AUTHOR AUTHOR'S ORGANIZ ATION 07/02/2018 [facility] DATE CREATED AUTHOR AUTHOR'S ORGANIZ ATION 12/06/2020 [facility] DATE CREATED AUTHOR AUTHOR'S ORGANIZ ATION 10/06/2024 [facility] DATE CREATED AUTHOR AUTHOR'S ORGANIZ ATION 08/24/2025 [facility] Source Comments (unrecognize d section and content) In the event this informatio n is protected by the Federal Confidentiality of Alcohol and Drug Abuse Patient Records regulations: The Federal rules restrict any use of the information to criminally investigate or prosecute any alcohol or drug abuse patient.[facility] the event this information is protected by the Federal Confidentiality of Alcohol and Drug Abuse Patient Records regulations: The Federal rules restrict any use of the information to criminally investigate or prosecute any alcohol or drug abuse patient.[facility] HospitalIn the event this information is protected by the Federal Confidentiality of Alcohol and Drug Abuse Patient Records regulations: The Federal rules restrict any use of the information to criminally investigate or prosecute any alcohol or drug abuse patient.[facility] HospitalIn the event this information is protected by the Federal Confidentiality of Alcohol and Drug Abuse Patient Records regulations: The Federal rules restrict any use of the information to criminally investigate or prosecute any alcohol or drug abuse patient.[facility] HospitalIn the event this information is protected by the Federal Confidentiality of Alcohol and Drug Abuse Patient Records regulations: The Federal rules restrict any use of the information to criminally investigate or prosecute any alcohol or drug abuse patient.[facility] HospitalIn the event this information is protected by the Federal Confidentiality of Alcohol and Drug Abuse Patient Records regulations: The Federal rules restrict any use of the information to criminally investigate or prosecute any alcohol or drug abuse patient.[facility] HospitalIn the event this information is protected by the Federal Confidentiality of Alcohol and Drug Abuse Patient Records regulations: The Federal rules restrict any use of the information to criminally investigate or prosecute any alcohol or drug abuse patient.[facility] HospitalIn the event this information is protected by the Federal Confidentiality of Alcohol and Drug Abuse Patient Records regulations: The Federal rules restrict any use of the information to criminally investigate or prosecute any alcohol or drug abuse patient.[facility] HospitalIn the event this information is protected by the Federal Confidentiality of Alcohol and Drug Abuse Patient Records regulations: The Federal rules restrict any use of the information to criminally investigate or prosecute any alcohol or drug abuse patient.[facility] HospitalIn the event this information is protected by the Federal Confidentiality of Alcohol and Drug Abuse Patient Records regulations: The Federal rules restrict any use of the information to criminally investigate or prosecute any alcohol or drug abuse patient.[facility] HospitalIn the event this information is protected by the Federal Confidentiality of Alcohol and Drug Abuse Patient Records regulations: The Federal rules restrict any use of the information to criminally investigate or prosecute any alcohol or drug abuse patient.[facility] HospitalIn the event this information is protected by the Federal Confidentiality of Alcohol and Drug Abuse Patient Records regulations: The Federal rules restrict any use of the information to criminally investigate or prosecute any alcohol or drug abuse patient.[facility] HospitalIn the event this information is protected by the Federal Confidentiality of Alcohol and Drug Abuse Patient Records regulations: The Federal rules restrict any use of the information to criminally investigate or prosecute any alcohol or drug abuse patient.[facility] HospitalIn the event this information is protected by the Federal Confidentiality of Alcohol and Drug Abuse Patient Records regulations: The Federal rules restrict any use of the information to criminally investigate or prosecute any alcohol or drug abuse patient.[facility] HospitalIn the event this information is protected by the Federal Confidentiality of Alcohol and Drug Abuse Patient Records regulations: The Federal rules restrict any use of the information to criminally investigate or prosecute any alcohol or drug abuse patient.[facility] HospitalIn the event this information is protected by the Federal Confidentiality of Alcohol and Drug Abuse Patient Records regulations: The Federal rules restrict any use of the information to criminally investigate or prosecute any alcohol or drug abuse patient.[facility] HospitalIn the event this information is protected by the Federal Confidentiality of Alcohol and Drug Abuse Patient Records regulations: The Federal rules restrict any use of the information to criminally investigate or prosecute any alcohol or drug abuse patient.[facility] HospitalIn the event this information is protected by the Federal Confidentiality of Alcohol and Drug Abuse Patient Records regulations: The Federal rules restrict any use of the information to criminally investigate or prosecute any alcohol or drug abuse patient.[facility] HospitalIn the event this information is protected by the Federal Confidentiality of Alcohol and Drug Abuse Patient Records regulations: The Federal rules restrict any use of the information to criminally investigate or prosecute any alcohol or drug abuse patient.[facility] HospitalIn the event this information is protected by the Federal Confidentiality of Alcohol and Drug Abuse Patient Records regulations: The Federal rules restrict any use of the information to criminally investigate or prosecute any alcohol or drug abuse patient.[facility] HospitalIn the event this information is protected by the Federal Confidentiality of Alcohol and Drug Abuse Patient Records regulations: The Federal rules restrict any use of the information to criminally investigate or prosecute any alcohol or drug abuse patient.[facility] HospitalIn the event this information is protected by the Federal Confidentiality of Alcohol and Drug Abuse Patient Records regulations: The Federal rules restrict any use of the information to criminally investigate or prosecute any alcohol or drug abuse patient.[facility] HospitalIn the event this information is protected by the Federal Confidentiality of Alcohol and Drug Abuse Patient Records regulations: The Federal rules restrict any use of the information to criminally investigate or prosecute any alcohol or drug abuse patient.[facility] HospitalIn the event this information is protected by the Federal Confidentiality of Alcohol and Drug Abuse Patient Records regulations: The Federal rules restrict any use of the information to criminally investigate or prosecute any alcohol or drug abuse patient.[facility] HospitalIn the event this information is protected by the Federal Confidentiality of Alcohol and Drug Abuse Patient Records regulations: The Federal rules restrict any use of the information to criminally investigate or prosecute any alcohol or drug abuse patient.[facility] HospitalIn the event this information is protected by the Federal Confidentiality of Alcohol and Drug Abuse Patient Records regulations: The Federal rules restrict any use of the information to criminally investigate or prosecute any alcohol or drug abuse patient.[facility] HospitalIn the event this information is protected by the Federal Confidentiality of Alcohol and Drug Abuse Patient Records regulations: The Federal rules restrict any use of the information to criminally investigate or prosecute any alcohol or drug abuse patient.[facility] HospitalIn the event this information is protected by the Federal Confidentiality of Alcohol and Drug Abuse Patient Records regulations: The Federal rules restrict any use of the information to criminally investigate or prosecute any alcohol or drug abuse patient.[facility] HospitalIn the event this information is protected by the Federal Confidentiality of Alcohol and Drug Abuse Patient Records regulations: The Federal rules restrict any use of the information to criminally investigate or prosecute any alcohol or drug abuse patient.[facility] HospitalIn the event this information is protected by the Federal Confidentiality of Alcohol and Drug Abuse Patient Records regulations: The Federal rules restrict any use of the information to criminally investigate or prosecute any alcohol or drug abuse patient.[facility] HospitalIn the event this information is protected by the Federal Confidentiality of Alcohol and Drug Abuse Patient Records regulations: The Federal rules restrict any use of the information to criminally investigate or prosecute any alcohol or drug abuse patient.[facility] HospitalIn the event this information is protected by the Federal Confidentiality of Alcohol and Drug Abuse Patient Records regulations: The Federal rules restrict any use of the information to criminally investigate or prosecute any alcohol or drug abuse patient.[facility] HospitalIn the event this information is protected by the Federal Confidentiality of Alcohol and Drug Abuse Patient Records regulations: The Federal rules restrict any use of the information to criminally investigate or prosecute any alcohol or drug abuse patient.[facility] HospitalIn the event this information is protected by the Federal Confidentiality of Alcohol and Drug Abuse Patient Records regulations: The Federal rules restrict any use of the information to criminally investigate or prosecute any alcohol or drug abuse patient.[facility] HospitalIn the event this information is protected by the Federal Confidentiality of Alcohol and Drug Abuse Patient Records regulations: The Federal rules restrict any use of the information to criminally investigate or prosecute any alcohol or drug abuse patient.[facility] HospitalIn the event this information is protected by the Federal Confidentiality of Alcohol and Drug Abuse Patient Records regulations: The Federal rules restrict any use of the information to criminally investigate or prosecute any alcohol or drug abuse patient.[facility] HospitalIn the event this information is protected by the Federal Confidentiality of Alcohol and Drug Abuse Patient Records regulations: The Federal rules restrict any use of the information to criminally investigate or prosecute any alcohol or drug abuse patient.[facility] HospitalIn the event this information is protected by the Federal Confidentiality of Alcohol and Drug Abuse Patient Records regulations: The Federal rules restrict any use of the information to criminally investigate or prosecute any alcohol or drug abuse patient.[facility] HospitalIn the event this information is protected by the Federal Confidentiality of Alcohol and Drug Abuse Patient Records regulations: The Federal rules restrict any use of the information to criminally investigate or prosecute any alcohol or drug abuse patient.[facility] HospitalIn the event this information is protected by the Federal Confidentiality of Alcohol and Drug Abuse Patient Records regulations: The Federal rules restrict any use of the information to criminally investigate or prosecute any alcohol or drug abuse patient.[facility] HospitalIn the event this information is protected by the Federal Confidentiality of Alcohol and Drug Abuse Patient Records regulations: The Federal rules restrict any use of the information to criminally investigate or prosecute any alcohol or drug abuse patient.[facility] HospitalIn the event this information is protected by the Federal Confidentiality of Alcohol and Drug Abuse Patient Records regulations: The Federal rules restrict any use of the information to criminally investigate or prosecute any alcohol or drug abuse patient.[facility] HospitalIn the event this information is protected by the Federal Confidentiality of Alcohol and Drug Abuse Patient Records regulations: The Federal rules restrict any use of the information to criminally investigate or prosecute any alcohol or drug abuse patient.[facility] HospitalIn the event this information is protected by the Federal Confidentiality of Alcohol and Drug Abuse Patient Records regulations: The Federal rules restrict any use of the information to criminally investigate or prosecute any alcohol or drug abuse patient.[facility] HospitalIn the event this information is protected by the Federal Confidentiality of Alcohol and Drug Abuse Patient Records regulations: The Federal rules restrict any use of the information to criminally investigate or prosecute any alcohol or drug abuse patient.[facility] HospitalIn the event this information is protected by the Federal Confidentiality of Alcohol and Drug Abuse Patient Records regulations: The Federal rules restrict any use of the information to criminally investigate or prosecute any alcohol or drug abuse patient.[facility] HospitalIn the event this information is protected by the Federal Confidentiality of Alcohol and Drug Abuse Patient Records regulations: The Federal rules restrict any use of the information to criminally investigate or prosecute any alcohol or drug abuse patient.[facility] HospitalIn the event this information is protected by the Federal Confidentiality of Alcohol and Drug Abuse Patient Records regulations: The Federal rules restrict any use of the information to criminally investigate or prosecute any alcohol or drug abuse patient.[facility] HospitalIn the event this information is protected by the Federal Confidentiality of Alcohol and Drug Abuse Patient Records regulations: The Federal rules restrict any use of the information to criminally investigate or prosecute any alcohol or drug abuse patient.[facility] HospitalIn the event this information is protected by the Federal Confidentiality of Alcohol and Drug Abuse Patient Records regulations: The Federal rules restrict any use of the information to criminally investigate or prosecute any alcohol or drug abuse patient.[facility] HospitalIn the event this information is protected by the Federal Confidentiality of Alcohol and Drug Abuse Patient Records regulations: The Federal rules restrict any use of the information to criminally investigate or prosecute any alcohol or drug abuse patient.[facility] HospitalIn the event this information is protected by the Federal Confidentiality of Alcohol and Drug Abuse Patient Records regulations: The Federal rules restrict any use of the information to criminally investigate or prosecute any alcohol or drug abuse patient.[facility] HospitalIn the event this information is protected by the Federal Confidentiality of Alcohol and Drug Abuse Patient Records regulations: The Federal rules restrict any use of the information to criminally investigate or prosecute any alcohol or drug abuse patient.[facility] HospitalIn the event this information is protected by the Federal Confidentiality of Alcohol and Drug Abuse Patient Records regulations: The Federal rules restrict any use of the information to criminally investigate or prosecute any alcohol or drug abuse patient.[facility] HospitalIn the event this information is protected by the Federal Confidentiality of Alcohol and Drug Abuse Patient Records regulations: The Federal rules restrict any use of the information to criminally investigate or prosecute any alcohol or drug abuse patient.[facility] HospitalIn the event this information is protected by the Federal Confidentiality of Alcohol and Drug Abuse Patient Records regulations: The Federal rules restrict any use of the information to criminally investigate or prosecute any alcohol or drug abuse patient.[facility] HospitalIn the event this information is protected by the Federal Confidentiality of Alcohol and Drug Abuse Patient Records regulations: The Federal rules restrict any use of the information to criminally investigate or prosecute any alcohol or drug abuse patient.[facility] HospitalIn the event this information is protected by the Federal Confidentiality of Alcohol and Drug Abuse Patient Records regulations: The Federal rules restrict any use of the information to criminally investigate or prosecute any alcohol or drug abuse patient.[facility] HospitalIn the event this information is protected by the Federal Confidentiality of Alcohol and Drug Abuse Patient Records regulations: The Federal rules restrict any use of the information to criminally investigate or prosecute any alcohol or drug abuse patient.[facility] HospitalIn the event this information is protected by the Federal Confidentiality of Alcohol and Drug Abuse Patient Records regulations: The Federal rules restrict any use of the information to criminally investigate or prosecute any alcohol or drug abuse patient.[facility] HospitalIn the event this information is protected by the Federal Confidentiality of Alcohol and Drug Abuse Patient Records regulations: The Federal rules restrict any use of the information to criminally investigate or prosecute any alcohol or drug abuse patient.[facility] HospitalIn the event this information is protected by the Federal Confidentiality of Alcohol and Drug Abuse Patient Records regulations: The Federal rules restrict any use of the information to criminally investigate or prosecute any alcohol or drug abuse patient.[facility] HospitalIn the event this information is protected by the Federal Confidentiality of Alcohol and Drug Abuse Patient Records regulations: The Federal rules restrict any use of the information to criminally investigate or prosecute any alcohol or drug abuse patient.[facility] HospitalIn the event this information is protected by the Federal Confidentiality of Alcohol and Drug Abuse Patient Records regulations: The Federal rules restrict any use of the information to criminally investigate or prosecute any alcohol or drug abuse patient.[facility] HospitalIn the event this information is protected by the Federal Confidentiality of Alcohol and Drug Abuse Patient Records regulations: The Federal rules restrict any use of the information to criminally investigate or prosecute any alcohol or drug abuse patient.[facility] HospitalIn the event this information is protected by the Federal Confidentiality of Alcohol and Drug Abuse Patient Records regulations: The Federal rules restrict any use of the information to criminally investigate or prosecute any alcohol or drug abuse patient.[facility] HospitalIn the event this information is protected by the Federal Confidentiality of Alcohol and Drug Abuse Patient Records regulations: The Federal rules restrict any use of the information to criminally investigate or prosecute any alcohol or drug abuse patient.[facility] HospitalIn the event this information is protected by the Federal Confidentiality of Alcohol and Drug Abuse Patient Records regulations: The Federal rules restrict any use of the information to criminally investigate or prosecute any alcohol or drug abuse patient.[facility] HospitalIn the event this information is protected by the Federal Confidentiality of Alcohol and Drug Abuse Patient Records regulations: The Federal rules restrict any use of the information to criminally investigate or prosecute any alcohol or drug abuse patient.[facility] HospitalIn the event this information is protected by the Federal Confidentiality of Alcohol and Drug Abuse Patient Records regulations: The Federal rules restrict any use of the information to criminally investigate or prosecute any alcohol or drug abuse patient.[facility] HospitalIn the event this information is protected by the Federal Confidentiality of Alcohol and Drug Abuse Patient Records regulations: The Federal rules restrict any use of the information to criminally investigate or prosecute any alcohol or drug abuse patient.[facility] HospitalIn the event this information is protected by the Federal Confidentiality of Alcohol and Drug Abuse Patient Records regulations: The Federal rules restrict any use of the information to criminally investigate or prosecute any alcohol or drug abuse patient.[facility] HospitalIn the event this information is protected by the Federal Confidentiality of Alcohol and Drug Abuse Patient Records regulations: The Federal rules restrict any use of the information to criminally investigate or prosecute any alcohol or drug abuse patient.[facility] HospitalIn the event this information is protected by the Federal Confidentiality of Alcohol and Drug Abuse Patient Records regulations: The Federal rules restrict any use of the information to criminally investigate or prosecute any alcohol or drug abuse patient.[facility] HospitalIn the event this information is protected by the Federal Confidentiality of Alcohol and Drug Abuse Patient Records regulations: The Federal rules restrict any use of the information to criminally investigate or prosecute any alcohol or drug abuse patient.[facility] HospitalIn the event this information is protected by the Federal Confidentiality of Alcohol and Drug Abuse Patient Records regulations: The Federal rules restrict any use of the information to criminally investigate or prosecute any alcohol or drug abuse patient.[facility] HospitalIn the event this information is protected by the Federal Confidentiality of Alcohol and Drug Abuse Patient Records regulations: The Federal rules restrict any use of the information to criminally investigate or prosecute any alcohol or drug abuse patient.[facility] HospitalIn the event this information is protected by the Federal Confidentiality of Alcohol and Drug Abuse Patient Records regulations: The Federal rules restrict any use of the information to criminally investigate or prosecute any alcohol or drug abuse patient.[facility] HospitalIn the event this information is protected by the Federal Confidentiality of Alcohol and Drug Abuse Patient Records regulations: The Federal rules restrict any use of the information to criminally investigate or prosecute any alcohol or drug abuse patient.[facility] HospitalIn the event this information is protected by the Federal Confidentiality of Alcohol and Drug Abuse Patient Records regulations: The Federal rules restrict any use of the information to criminally investigate or prosecute any alcohol or drug abuse patient.[facility] HospitalIn the event this information is protected by the Federal Confidentiality of Alcohol and Drug Abuse Patient Records regulations: The Federal rules restrict any use of the information to criminally investigate or prosecute any alcohol or drug abuse patient.[facility] HospitalIn the event this information is protected by the Federal Confidentiality of Alcohol and Drug Abuse Patient Records regulations: The Federal rules restrict any use of the information to criminally investigate or prosecute any alcohol or drug abuse patient.[facility] HospitalIn the event this information is protected by the Federal Confidentiality of Alcohol and Drug Abuse Patient Records regulations: The Federal rules restrict any use of the information to criminally investigate or prosecute any alcohol or drug abuse patient.[facility] HospitalIn the event this information is protected by the Federal Confidentiality of Alcohol and Drug Abuse Patient Records regulations: The Federal rules restrict any use of the information to criminally investigate or prosecute any alcohol or drug abuse patient.[facility] HospitalIn the event this information is protected by the Federal Confidentiality of Alcohol and Drug Abuse Patient Records regulations: The Federal rules restrict any use of the information to criminally investigate or prosecute any alcohol or drug abuse patient.[facility] HospitalIn the event this information is protected by the Federal Confidentiality of Alcohol and Drug Abuse Patient Records regulations: The Federal rules restrict any use of the information to criminally investigate or prosecute any alcohol or drug abuse patient.[facility] HospitalIn the event this information is protected by the Federal Confidentiality of Alcohol and Drug Abuse Patient Records regulations: The Federal rules restrict any use of the information to criminally investigate or prosecute any alcohol or drug abuse patient.[facility] HospitalIn the event this information is protected by the Federal Confidentiality of Alcohol and Drug Abuse Patient Records regulations: The Federal rules restrict any use of the information to criminally investigate or prosecute any alcohol or drug abuse patient.[facility] HospitalIn the event this information is protected by the Federal Confidentiality of Alcohol and Drug Abuse Patient Records regulations: The Federal rules restrict any use of the information to criminally investigate or prosecute any alcohol or drug abuse patient.[facility] Reason for Visit (unrecogniz ed section [...] TOMOGRAPHY THORAX W/O CNTRST Santo Love MD [facility] [place] [address] Ct Imaging [place] [address] Referral ID Status Reason Start Date Expiration Date V isits Requested Visits Authorized [id number] Closed Auto-Generate d Referral 12/18/2023 01/16/2025 1 1 Reason Comments New Patient Hydronephrosis Specialty Diagnoses / Procedures Referred By Contac t Referred To Contact Urology / UROLOGY Diagnoses Urinary retention Hydroureter Procedures CONSULT TO UROLOGY OFFICE/OUTPATIENT NEW HIGH MDM 60 MINUTES Santo Love MD [facility] [place] [address] Urol [facility] [address] [place] [address] Referral ID Status Reason Start Date Expiration Date V isits Requested Visits Authorized [id number] Closed PCP Requested Referral 01/06/2024 11/01/2024 1 1 Reason Comments Follow Up Blood Pressure Reason Comments Radiology US Specialty Diagnoses / Procedures Referred By Contac t Referred To Contact US IMAGING Diagnoses Bilateral hydronephrosis Hydroureter Procedures US KIDNEY/BLADDER US RETROPERITONEAL REAL TIME W/IMAGE COMPLETE Zac Duncan PA-C [address] [place] [address] Us Imaging [place] [address] Referral ID Status Reason Start Date Expiration Date V isits Requested Visits Authorized [id number] Closed Auto-Generate d Referral 02/02/2024 03/03/2025 1 1 Reason Comments Consult Lung Nodules: Hospit al stay 12/16/2023 Specialty Diagnoses / Procedures Referred By Contac t Referred To Contact Pulmonary and Critical Care Medicine Diagnoses Lung nodule Procedures CONSULT TO PULM/CRITICAL CARE OFFICE/OUTPATIENT [facility] 60 MINUTES Santo Love MD [address] [place] [address] [address] [place] [id number] Referral ID Status Reason Start Date Expiration Date V isits Requested Visits Authorized [id number] Closed PCP Requested Referral 01/15/2024 11/01/2024 1 [...] THORAX W/O CNTRST Talya Rodriguez PA-C [address] [place] [address] Ct Imaging [id number] Referral ID Status Reason Start Date Expiration Date V isits Requested Visits Authorized [id number] Closed Auto-Generate d Referral 08/09/2024 03/09/2025 1 1 Reason Comments Established Patient Lung nodule Nodule Specialty Diagnoses / Procedures Referred By Contac t Referred To Contact Pulmonary and Critical Care Medicine Diagnoses Lung nodule Radiation fibrosis of lung (HCC) Granulomatous disease (HCC) Procedures CONSULT TO PULM/CRITICAL CARE OFFICE/OUTPATIENT [facility] 60 MINUTES Santo Love MD [address] [place] [address] Referral ID Status Reason Start Date Expiration Date V isits Requested Visits Authorized [id number] Closed PCP Requested Referral 11/19/2024 11/19/2025 1 [...] Care Teams (unrecognized sec tion and content) Transition Of Care Specialist Relationship Specialty Start Date End Date Santo Love MD [address] [place] [address] PCP - General Family Practice 09/18/15 [facility] [address] [place] [address] Pharmacist Pharmacy 04/14/19 Yazmin MeadeCit[facility] [address] [place] [address] Pharmacist Pharmacy 10/31/20 Transition Of Care Specialist Relationship Specialty Start Date End Date Santo Love MD [address] [place] [address] PCP - General Family Practice 09/18/15 Jenny [facility]okeCit[facility] [address] [place] [address] Pharmacist Pharmacy 04/14/19 Yazmin MeadeCit[facility] [address] [place] [address] Pharmacist Pharmacy 10/31/20 Transition Of Care Specialist Relationship Specialty Start Date End Date Santo Love MD [address] [place] [address] PCP - General Family Practice 09/18/15 Jenny [facility]okeCit[facility] [address] [place] [address] Pharmacist Pharmacy 04/14/19 [facility] HospitalY[facility] fierro, [facility] [address] [place] [address] Pharmacist Pharmacy 10/31/20 Transition Of Care Specialist Relationship Specialty Start Date End Date Santo Love MD [address] [place] [address] PCP - General Family Practice 09/18/15 Jenny [facility]Cit[facility] [address] [place] [address] Pharmacist Pharmacy 04/14/19 FarhanYazmin fierro, [facility] [address] [place] [address] Pharmacist Pharmacy 10/31/20 Transition Of Care Specialist Relationship Specialty Start Date End Date Santo Love MD [address] [place] [address] PCP - General Family Practice 09/18/15 Jenny Brooke, [facility] [address] [place] [address] Pharmacist Pharmacy 04/14/19 Yazmin Meade, [facility] [address] [facility] [address] [place] [address] Pharmacist Pharmacy 10/31/20 Transition Of Care Specialist Relationship Specialty Start Date End Date Santo Love MD [address] [place] [address] PCP - General Family Practice 09/18/15 Jenny Brooke, [facility] [address] [facility] [place] [address] Pharmacist Pharmacy 04/14/19 Yazmin Meade, [facility] [address] [facility] [place] [address] Pharmacist Pharmacy 10/31/20 Transition Of Care Specialist Relationship Specialty Start Date End Date Santo Love MD [address] [place] [address] PCP - General Family Practice 09/18/15 Jenny Brooke, [facility] [address] [place] [address] Pharmacist Pharmacy 04/14/19 Y[facility] MeadeCit[facility] [address] [facility] [place] [address] Pharmacist Pharmacy 10/31/20 Transition Of Care Specialist Relationship Specialty Start Date End Date Santo Love MD [address] [facility] [place] [address] PCP - General Family Practice 09/18/15 Jenny BrookeCit[facility] [address] [facility] [place] [address] Pharmacist Pharmacy 04/14/19 Yazmin Meade, [facility] [address] [place] [address] Pharmacist Pharmacy 10/31/20 Transition Of Care Specialist Relationship Specialty Start Date End Date Santo Love MD [address] [facility] [place] [address] PCP - General Family Practice 09/18/15 Jenny [facility]okeCit[facility] [address] [place] [address] Pharmacist Pharmacy 04/14/19 Yazmin Meade, [facility] [address] [place] [address] Pharmacist Pharmacy 10/31/20 Transition Of Care Specialist Relationship Specialty Start Date End Date Santo Love MD [address] [facility] [place] [address] PCP - General Family Medicine 09/18/15 Jenny Brooke, [facility] [address] [place] [address] Pharmacist Pharmacy 04/14/19 [facility] HospitalYazmin fierroCit[facility] [address] [place] [address] Pharmacist Pharmacy 10/31/20 Transition Of Care Specialist Relationship Specialty Start Date End Date Santo Love MD [address] [place] [address] PCP - General Family Medicine 09/18/15 Jenny Brooke, [facility] [address] [place] [address] Pharmacist Pharmacy 04/14/19 Y[facility]min MeadeCit[facility] [address] [place] [address] Pharmacist Pharmacy 10/31/20 Transition Of Care Specialist Relationship Specialty Start Date End Date Santo Love MD [address] [place] [address] PCP - General Family Medicine 09/18/15 Jenny Brooke, [facility] [address] [place] [address] Pharmacist Pharmacy 04/14/19 [facility]min MeadeCit[facility] [address] [facility] [place] [address] Pharmacist Pharmacy 10/31/20 Transition Of Care Specialist Relationship Specialty Start Date End Date Santo Love MD [address] [facility] [place] [address] PCP - General Family Medicine 09/18/15 Jenny Brooke, [facility] [address] [facility] [place] [address] Pharmacist Pharmacy 04/14/19 Yazmin Meade, [facility] [address] [place] [address] Pharmacist Pharmacy 10/31/20 Transition Of Care Specialist Relationship Specialty Start Date End Date Santo Love MD [address] [place] [address] PCP - General Family Medicine 09/18/15 Jenny Brooke, [facility] [address] [facility] [place] [address] Pharmacist Pharmacy 04/14/19 Yazmin Meade [facility] [address] [place] [address] Pharmacist Pharmacy 10/31/20 Transition Of Care Specialist Relationship Specialty Start Date End Date Santo Love MD [address] [place] [address] PCP - General Family Medicine 09/18/15 Jenny Brooke, [facility] [address] [place] [address] Pharmacist Pharmacy 04/14/19 Yazmin Meade, [facility] [address] [place] [address] Pharmacist Pharmacy 10/31/20 Transition Of Care Specialist Relationship Specialty Start Date End Date Santo Love MD [address] [place] [address] PCP - General Family Medicine 09/18/15 [place] CityJenny chatman, [facility] [address] [place] [address] Pharmacist Pharmacy 04/14/19 Yazmin Meade, [facility] [address] [facility] [place] [address] Pharmacist Pharmacy 10/31/20 Transition Of Care Specialist Relationship Specialty Start Date End Date Santo Love MD [address] [place] [address] PCP - General Family Medicine 09/18/15 Jenny Brooke, [facility] [address] [place] [address] Pharmacist Pharmacy 04/14/19 Y[facility]min [facility]adeCit[facility] [address] [place] [address] Pharmacist Pharmacy 10/31/20 Transition Of Care Specialist Relationship Specialty Start Date End Date Santo Love MD [address] [place] [address] PCP - General Family Medicine 09/18/15 Jenny Brooke, [facility] [address] [place] [address] Pharmacist Pharmacy 04/14/19 Y[facility]min MeadeCit[facility] [address] [facility] [place] [address] Pharmacist Pharmacy 10/31/20 Transition Of Care Specialist Relationship Specialty Start Date End Date Santo Love MD [address] [place] [address] PCP - General Family Medicine 09/18/15 Jenny Brooke, [facility] [address] [place] [address] Pharmacist Pharmacy 04/14/19 Yazmin Meade, [facility] [address] [facility] [place] [address] Pharmacist Pharmacy 10/31/20 Transition Of Care Specialist Relationship Specialty Start Date End Date Santo Love MD [address] [place] [address] PCP - General Family Medicine 09/18/15 Jenny Brooke, [facility] [address] [facility] [place] [address] Pharmacist Pharmacy 04/14/19 [facility] HospitalYazmin fierroCit[facility] [address] [place] [address] Pharmacist Pharmacy 10/31/20 Transition Of Care Specialist Relationship Specialty Start Date End Date Santo Love MD [address] [place] [address] PCP - General Family Medicine 09/18/15 [place] CityYomairaJennyB[facility] [address] [place] [address] Pharmacist Pharmacy 04/14/19 [facility] HospitalYazmin fierroCit[facility] [address] [place] [address] Pharmacist Pharmacy 10/31/20 Transition Of Care Specialist Relationship Specialty Start Date End Date Santo Love MD [address] [place] [address] PCP - General Family Medicine 09/18/15 [place] CityJennyCit[facility] [address] [place] [address] Pharmacist Pharmacy 04/14/19 [facility] HospitalYazmin fierroCit[facility] [address] [place] [address] Pharmacist Pharmacy 10/31/20 Transition Of Care Specialist Relationship Specialty Start Date End Date Santo Love MD [address] [place] [address] PCP - General Family Medicine 09/18/15 [place] CityYomairaJennyB[facility] [address] [place] [address] Pharmacist Pharmacy 04/14/19 Farhan IglesiageovannaCitizens Memorial Healthcare [address] [place] [address] Pharmacist Pharmacy 10/31/20 Transition Of Care Specialist Relationship Specialty Start Date End Date Santo Love MD [address] [place] [address] PCP - General Family Medicine 09/18/15 Jenny BrookeCit[facility] [address] [place] [address] Pharmacist Pharmacy 04/14/19 Team Status: Active Member [...] DO Admit Provider, Attending Pro vider Active Transition Of Care Specialist Relationship Specialty Start Date End Date Santo Love MD [address] [place] [address] PCP - General Family Medicine 09/18/15 Jenny BrookeCit[facility] [address] [place] [address] Pharmacist Pharmacy 04/14/19 Team Status: Active Member [...] Love MD Primary Care Provider Active Dr. Pacnhito Zavaleta MD Emergency Provider Active Dr. Vincent [...] Active Member Role Status Dates Dr. Santo Loev MD Primary Care Provider Active Dr. Panchito [...] Dr. Nitish Sood MD Other Provider Active Transition Of Care Specialist Relationship Specialty Start Date End Date Santo Love MD [address] [place] [address] PCP - General Family Medicine 09/18/15 [place]Jenny, [facility] [address] [place] [address] Pharmacist Pharmacy 04/14/19 Transition Of Care Specialist Relationship Specialty Start Date End Date Santo Love MD [address] [place] [address] PCP - General Family Medicine 09/18/15 [place] CityYomairaJenny, [facility] [address] [place] [address] Pharmacist Pharmacy 04/14/19 Transition Of Care Specialist Relationship Specialty Start Date End Date Santo Love MD [address] [place] [address] PCP - General Family Medicine 09/18/15 [place] CityYomairaJenny, [facility] [address] [place] [address] Pharmacist Pharmacy 04/14/19 Transition Of Care Specialist Relationship Specialty Start Date End Date Santo Love MD [address] [place] [address] PCP - General Family Medicine 09/18/15 [place] CityYomairaJenny, [facility] [address] [place] [address] Pharmacist Pharmacy 04/14/19 Team Status: Active Member [...] Ferrer DO Attending Provider, Referring Provider Active Transition Of Care Specialist Relationship Specialty Start Date End Date Santo Love MD [address] [place] [address] PCP - General Family Medicine 09/18/15 [place] [facility] [address] [place] [address] Pharmacist Pharmacy 04/14/19 Team Status: Active Member Role Status Dates Dr. Santo Love MD Primary Care Provider, Referring Provider Active Dr. Cullen Ferrer DO Attending Provider, Other Prov ider Active Transition Of Care Specialist Relationship Specialty Start Date End Date Santo Love MD [address] [place] [address] PCP - General Family Medicine 09/18/15 [place] CityYomairaJennyB[facility] [address] [place] [address] Pharmacist Pharmacy 04/14/19 Transition Of Care Specialist Relationship Specialty Start Date End Date Santo Love MD [address] [place] [address] PCP - General Family Medicine 09/18/15 MendyJenny chatman, [facility] [address] [place] [address] Pharmacist Pharmacy 04/14/19 Transition Of Care Specialist Relationship Specialty Start Date End Date Santo Love MD [address] [place] [address] PCP - General Family Medicine 09/18/15 [place] CityJenny chatman, [facility] [address] [place] [address] Pharmacist Pharmacy 04/14/19 Transition Of Care Specialist Relationship Specialty Start Date End Date Santo Love MD [address] [place] [address] PCP - General Family Medicine 09/18/15 Jenny Brooke, [facility] [address] [place] [address] Pharmacist Pharmacy 04/14/19 Transition Of Care Specialist Relationship Specialty Start Date End Date Santo Love MD [address] [place] [address] PCP - General Family Medicine 09/18/15 Jenny Brooke, [facility] [address] [place] [address] Pharmacist Pharmacy 04/14/19 Transition Of Care Specialist Relationship Specialty Start Date End Date Santo Love MD [address] [place] [address] PCP - General Family Medicine 09/18/15 Jenny Brooke, [facility] [address] [place] [address] Pharmacist Pharmacy 04/14/19 Transition Of Care Specialist Relationship Specialty Start Date End Date Santo Love MD [address] [place] [address] PCP - General Family Medicine 09/18/15 [place] CityJenny chatman, [facility] [address] [place] [address] Pharmacist Pharmacy 04/14/19 Transition Of Care Specialist Relationship Specialty Start Date End Date Santo Love MD [address] [place] [address] PCP - General Family Medicine 09/18/15 Jenny Brooke, [facility] [address] [place] [address] Pharmacist Pharmacy 04/14/19 Transition Of Care Specialist Relationship Specialty Start Date End Date Santo Love MD [address] [place] [address] PCP - General Family Medicine 09/18/15 Jenny Brooke, [facility] [address] [place] [address] Pharmacist Pharmacy 04/14/19 Transition Of Care Specialist Relationship Specialty Start Date End Date Santo Love MD [address] [place] [address] PCP - General Family Medicine 09/18/15 Jenny Brooke, [facility] [address] [place] [address] Pharmacist Pharmacy 04/14/19 Transition Of Care Specialist Relationship Specialty Start Date End Date Santo Love MD [address] [place] [address] PCP - General Family Medicine 09/18/15 Mendy Jenny, [facility] [address] [place] [address] Pharmacist Pharmacy 04/14/19 Transition Of Care Specialist Relationship Specialty Start Date End Date Santo Love MD [address] [place] [address] PCP - General Family Medicine 09/18/15 Jenny Brooke, [facility] [address] [place] [address] Pharmacist Pharmacy 04/14/19 Transition Of Care Specialist Relationship Specialty Start Date End Date Santo Love MD [address] [place] [address] PCP - General Family Medicine 09/18/15 Jenny Brooke, [facility] [address] [place] [address] Pharmacist Pharmacy 04/14/19 Raisa Maradiaga APRN.SALES ACCOUNT SPECIALIST [address] [place] [address] [employer] [facility] 10/10/24 Juliana Davis APRN.SALES ACCOUNT SPECIALIST [address] [place] [address] [employer] [facility] 10/10/24 Transition Of Care Specialist Relationship Specialty Start Date End Date Santo Love MD [address] [place] [address] PCP - General Family Medicine 09/18/15 [facility] [address] [place] [address] Pharmacist Pharmacy 04/14/19 Raisa Maradiaga APRN.SALES ACCOUNT SPECIALIST [address] [place] [address] Drag Car Racer [facility] 10/10/24 Juliana Davis APRN.SALES ACCOUNT SPECIALIST [address] [place] [address] [employer] Car Racer [facility] 10/10/24 Transition Of Care Specialist Relationship Specialty Start Date End Date Santo Love MD [address] [place] [address] PCP - General Family Medicine 09/18/15 [place] [facility] [address] [place] [address] Pharmacist Pharmacy 04/14/19 Raisa Maradiaga APRN.SALES ACCOUNT SPECIALIST [address] [place] [address] Drag Car Racer [facility] 10/10/24 Juliana Davis APRN.SALES ACCOUNT SPECIALIST [address] [place] [address] [employer] Car R[employer] [facility] 10/10/24 Transition Of Care Specialist Relationship Specialty Start Date End Date Santo Love MD [address] [place] [address] PCP - General Family Medicine 09/18/15 [facility] [address] [place] [address] Pharmacist Pharmacy 04/14/19 Raisa Maradiaga APRN.SALES ACCOUNT SPECIALIST [address] [place] [address] Drag Car Racer [facility] 10/10/24 Juliana Davis APRN.SALES ACCOUNT SPECIALIST [address] [place] [address] Drag Car Racer [facility] 10/10/24 Transition Of Care Specialist Relationship Specialty Start Date End Date Santo Love MD [address] [place] [address] PCP - General Family Medicine 09/18/15 [facility] [address] [place] [address] Pharmacist Pharmacy 04/14/19 Raisa Maradiaga APRN.SALES ACCOUNT SPECIALIST [address] [place] [address] Drag Car Racer [facility] 10/10/24 Juliana Davis APRN.SALES ACCOUNT SPECIALIST [address] [place] [address] [facility] 10/10/24 Transition Of Care Specialist Relationship Specialty Start Date End Date Santo Love MD [address] [place] [address] PCP - General Family Medicine 09/18/15 Jenny Brooke, [facility] [address] [place] [address] Pharmacist Pharmacy 04/14/19 Raisa Maradiaga APRN.SALES ACCOUNT SPECIALIST [address] [place] [address] [facility] 10/10/24 Juliana Davis APRN.SALES ACCOUNT SPECIALIST [address] [place] [address] [facility] 10/10/24 Transition Of Care Specialist Relationship Specialty Start Date End Date Santo Love MD [address] [place] [address] PCP - General Family Medicine 09/18/15 [place] [facility] [address] [place] [address] Pharmacist Pharmacy 04/14/19 Raisa Maradiaga APRN.SALES ACCOUNT SPECIALIST [address] [place] [address] [facility] 10/10/24 Juliana Davis APRN.SALES ACCOUNT SPECIALIST [address] [place] [address] [facility] 10/10/24 Transition Of Care Specialist Relationship Specialty Start Date End Date Santo Love MD [address] [place] [address] PCP - General Family Medicine 09/18/15 [place] [facility] [address] [place] [address] Pharmacist Pharmacy 04/14/19 Raisa Maradiaga APRN.SALES ACCOUNT SPECIALIST [address] [place] [address] [facility] 10/10/24 Juliana Davis APRN.SALES ACCOUNT SPECIALIST [address] [place] [address] [facility] [employer] [facility] 10/10/24 Transition Of Care Specialist Relationship Specialty Start Date End Date Santo Love MD [address] [place] [address] PCP - General Family Medicine 09/18/15 [place] Jenny, [facility] [address] [place] [address] Pharmacist Pharmacy 04/14/19 Raisa Maradiaga WASTE COLLECTION DRIVER.SALES ACCOUNT SPECIALIST [address] [place] [address] Drag Car Racer [facility] 10/10/24 Juliana Davis APRN.SALES ACCOUNT SPECIALIST [address] [place] [address] Drag Car Racer [facility] 10/10/24 Transition Of Care Specialist Relationship Specialty Start Date End Date Santo Love MD [address] [place] [address] PCP - General Family Medicine 09/18/15 [place] Jenny, [facility] [address] [place] [address] Pharmacist Pharmacy 04/14/19 Raisa Maradiaga WASTE COLLECTION DRIVER.SALES ACCOUNT SPECIALIST [address] [place] [address] [facility] Car Racer [facility] 10/10/24 Juliana Davis APRN.SALES ACCOUNT SPECIALIST [address] [place] [address] Drag Car Racer [facility] 10/10/24 Transition Of Care Specialist Relationship Specialty Start Date End Date Santo Love MD [address] [place] [address] PCP - General Family Medicine 09/18/15 MendyJenny chatmanCit[facility] [address] [place] [address] Pharmacist Pharmacy 04/14/19 Raisa Maradiaga, WASTE COLLECTION DRIVER.SALES ACCOUNT SPECIALIST [address] [place] [address] Drag Car Racer [facility] 10/10/24 Juliana Davis WASTE COLLECTION DRIVER.SALES ACCOUNT SPECIALIST [address] [place] [address] Drag Car Racer [facility] 10/10/24 Transition Of Care Specialist Relationship Specialty Start Date End Date Santo Love MD [address] [place] [address] PCP - General Family Medicine 09/18/15 [place] [facility] [address] [place] [address] Pharmacist Pharmacy 04/14/19 Raisa Maradiaga, WASTE COLLECTION DRIVER.SALES ACCOUNT SPECIALIST [address] [place] [address] [facility] Car [facility] 10/10/24 Juliana Davis WASTE COLLECTION DRIVER.SALES ACCOUNT SPECIALIST [address] [place] [address] Drag Car Racer [facility] 10/10/24 Transition Of Care Specialist Relationship Specialty Start Date End Date Santo Love MD [address] [place] [address] PCP - General Family Medicine 09/18/15 Jenny Brooke RPh [address] [place] [address] Pharmacist Pharmacy 04/14/19 Raisa Maradiaga APRN.SALES ACCOUNT SPECIALIST [address] [place] [address] [facility] Car R[facility] 10/10/24 Juliana Davis APRN.SALES ACCOUNT SPECIALIST [address] [place] [address] Drag Car Racer [facility] 10/10/24 Transition Of Care Specialist Relationship Specialty Start Date End Date Santo Love MD [address] [place] [address] PCP - General Family Medicine 09/18/15 [place] [facility] [address] [place] [address] Pharmacist Pharmacy 04/14/19 Raisa Maradiaga APRN.SALES ACCOUNT SPECIALIST [address] [place] [address] Drag Car Racer [facility] 10/10/24 Juliana Davis APRN.SALES ACCOUNT SPECIALIST [address] [place] [address] Drag Car Racer [facility] 10/10/24 Transition Of Care Specialist Relationship Specialty Start Date End Date Santo Love MD [address] [place] [address] PCP - General Family Medicine 09/18/15 [place] [facility]Cit[facility] [address] [place] [address] Pharmacist Pharmacy 04/14/19 Raisa Maradiaga APRN.SALES ACCOUNT SPECIALIST [address] [place] [address] Drag Car Racer [facility] 10/10/24 Juliana Davis APRN.SALES ACCOUNT SPECIALIST [address] [place] [address] Drag Car Racer [facility] 10/10/24 Transition Of Care Specialist Relationship Specialty Start Date End Date Santo Love MD [address] [place] [address] PCP - General Family Medicine 09/18/15 Jenny Brooke, [facility] [address] [place] [address] Pharmacist Pharmacy 04/14/19 Raisa Maradiaga APRN.SALES ACCOUNT SPECIALIST [address] [place] [address] Drag Car Racer [facility] 10/10/24 Juliana Davis APRN.SALES ACCOUNT SPECIALIST [address] [place] [address] Drag Car Racer [facility] 10/10/24 Transition Of Care Specialist Relationship Specialty Start Date End Date Santo Love MD [address] [place] [address] PCP - General Family Medicine 09/18/15 Jenny Brooke, [facility] [address] [place] [address] Pharmacist Pharmacy 04/14/19 Raisa Maradiaga APRN.SALES ACCOUNT SPECIALIST [address] [place] [address] Drag Car Racer [facility] 10/10/24 Juliana Davis APRN.SALES ACCOUNT SPECIALIST [address] [place] [address] [facility] 10/10/24 Transition Of Care Specialist Relationship Specialty Start Date End Date Satno Love MD [address] [place] [address] PCP - General Family Medicine 09/18/15 [place] [facility] [address] [place] [address] Pharmacist Pharmacy 04/14/19 Raisa Maradiaga APRN.SALES ACCOUNT SPECIALIST [address] [place] [address] [facility] 10/10/24 Juliana Davis APRN.SALES ACCOUNT SPECIALIST [address] [place] [address] [facility] 10/10/24 Transition Of Care Specialist Relationship Specialty Start Date End Date Santo Love MD [address] [place] [address] PCP - General Family Medicine 09/18/15 [place] [facility] [address] [place] [address] Pharmacist Pharmacy 04/14/19 Raisa Maradiaga APRN.SALES ACCOUNT SPECIALIST [address] [place] [address] [facility] 10/10/24 Juliana Davis APRN.SALES ACCOUNT SPECIALIST [address] [place] [address] Drag Car Racer [facility] 10/10/24 Transition Of Care Specialist Relationship Specialty Start Date End Date Santo Love MD [address] [place] [address] PCP - General Family Medicine 09/18/[address] [facility] [address] [place] [address] Pharmacist Pharmacy 04/14/19 Raisa Maradiaga WASTE COLLECTION DRIVER.SALES ACCOUNT SPECIALIST [address] [place] [address] Drag Car Racer [facility] 10/10/24 Juliana Davis WASTE COLLECTION DRIVER.SALES ACCOUNT SPECIALIST [address] [place] [address] Drag Car Racer [facility] 10/10/24 Transition Of Care Specialist Relationship Specialty Start Date End Date Santo Love MD [address] [place] [address] PCP - General Family Medicine 09/18/15 [place] [facility] [address] [place] [address] Pharmacist Pharmacy 04/14/19 Raisa Maradiaga WASTE COLLECTION DRIVER.SALES ACCOUNT SPECIALIST [address] [place] [address] Drag Car Racer [facility] 10/10/24 Juliana Davis APRN.SALES ACCOUNT SPECIALIST [address] [place] [address] Drag Car Racer [facility] 10/10/24 Transition Of Care Specialist Relationship Specialty Start Date End Date Santo Love MD [address] [place] [address] PCP - General Family Medicine 09/18/15 Jenny Brooke RPh [address] [facility] [place] [place] [address] Pharmacist Pharmacy 04/14/19 Raisa Maradiaga APRN.SALES ACCOUNT SPECIALIST [address] [place], [place] [address] [facility] 10/10/24 Juliana Davis APRN.SALES ACCOUNT SPECIALIST [address] [facility] [place] [id number] [facility] 10/10/24 Goals (unrecognized section and content) Goals [...] BE BASED ON THE PRIMARY CLINICAL RECORDS. [facility] [employer] [facility]. provides no warranty or guarantee of the accuracy or completeness of information in this document.
--- NOTE | 2025-10-27 17:33 | EKG12_ITS ---
Test Reason : SOB Blood Pressure : */* mmHG Vent. Rate : 72 BPM Atrial Rate : 72 BPM P-R Int : 280 ms QRS Dur : 78 ms QT Int : 404 ms P-R-T Axes : 78 37 58 degrees QTcB Int : 442 ms Sinus rhythm with 1st degree A-V block Septal infarct , age undetermined Abnormal ECG Confirmed by Facundo Knowles ([id number]), editor farm journal KATH LOZANO ([id number]) on 11/03/2025 6:49:46 AM Referred By: Confirmed By: Facundo Knowles
[2025-10-27 17:37] LABS: Troponin T High Sens 2 HR 15 ng/L (<=14)
== END 2025-10-27 18:10 | disposition home or self-care (01) ==
PROVIDERS: Emergency Provider Emergency Medicine; PCP Family Medicine; Visit Provider Emergency Medicine
DX: R06.00 Dyspnea, unspecified (principal); I48.0 Paroxysmal atrial fibrillation; E11.9 Type 2 diabetes mellitus without complications; J18.9 Pneumonia, unspecified organism; E78.00 Pure hypercholesterolemia, unspecified; I25.10 Atherosclerotic heart disease of native coronary artery without angina pectoris; Z95.5 Presence of coronary angioplasty implant and graft; I10 Essential (primary) hypertension; K21.9 Gastro-esophageal reflux disease without esophagitis; Z79.899 Other long term (current) drug therapy
CPT/HCPCS: 71046; 71275; 80048; 84484; 85025; 87631; 93005; 94760; 99283; Q9967; A4216